=== PATIENT | male | born 1955 | race Caucasian/White ===

== ENCOUNTER → 2023-12-26 15:41 | Outpatient (REF) | payer MEDICARE, OTHER, SELFPAY | LOC: HWRAD 15:41 | PROVIDERS: ATTENDING PHYSICIAN Orthopaedic Surgery; FAMILY PHYSICIAN Family Medicine | DX: M25.551 Pain in right hip (principal) | CPT/HCPCS: 72192 ==

== ENCOUNTER → 2023-12-31 15:16 | Outpatient (REF) | payer MEDICARE, OTHER, SELFPAY | LOC: RAD 15:16 | PROVIDERS: ATTENDING PHYSICIAN Surgery Vascular Surgery; FAMILY PHYSICIAN Family Medicine | DX: I73.9 Peripheral vascular disease, unspecified (principal) | CPT/HCPCS: 93990 ==

== ENCOUNTER → 2024-01-02 14:44 | Outpatient (REF) | payer MEDICARE, OTHER, SELFPAY | LOC: HWRAD 14:44 | PROVIDERS: ATTENDING PHYSICIAN Surgery Vascular Surgery; FAMILY PHYSICIAN Family Medicine | DX: I73.9 Peripheral vascular disease, unspecified (principal) | CPT/HCPCS: 75635; Q9967 ==

== ENCOUNTER → 2024-02-18 08:45 | Outpatient (REF) | payer MEDICARE, OTHER, SELFPAY | LOC: RAD 08:45 | PROVIDERS: ATTENDING PHYSICIAN Surgery Vascular Surgery; FAMILY PHYSICIAN Family Medicine | DX: I77.0 Arteriovenous fistula, acquired (principal) | CPT/HCPCS: 93990 ==

== ENCOUNTER 2024-02-19 11:38 | Inpatient (IN) | payer MEDICARE, OTHER, SELFPAY ==
[2024-02-19] VITALS (7 sets, daily range): BP systolic 80–159; BP diastolic 44–74; BMI 29.4
[2024-02-19 09:44] LABS: Urine Albumin 2+ (Neg - Trace); Urine Bilirubin Negative (Negative); Urine Character Clear (Clear); Urine Color Yellow; Urine Glucose Negative (Negative); Urine Ketone Negative (Negative); Urine Leukocyte Negative (Negative); Urine Nitrite Negative (Negative); Urine Occult Blood Negative (Negative); Urine Urobilinogen Negative (Neg - 1+)
--- NOTE | 2024-02-19 09:52 | ED.GENMED ---
History of Present Illness
General
Chief Complaint: Abdominal Symptoms
Source: patient
Exam Limitations: none
Time Seen by Provider: 02/19/24 09:26
Nursing documentation reviewed up to this point in time: agreed with
Travel History
Have you had any contact with someone who has COVID-19?: No
Do you have any symptoms of coronavirus? Fever > 100 degrees, chills, cough, shortness of breath, sore throat, loss of taste or smell, muscle aches, or headache?: No
History of Present Illness
History of Present Illness:
Patient with history of end-stage renal disease on hemodialysis (Saturday, Saturday, Saturday), presents to ED secondary to persistent sensation of 'not feeling well', after dental procedure yesterday afternoon. Today, patient started to have multiple
vomiting episodes, without any abdominal discomfort. Upon presentation, patient is found to be febrile, which she was not aware of. Denies headache. Denies sore throat. Denies coughing. Denies diarrhea. Denies recent sick contact. Patient
reports having had similar symptoms last year, when he tested positive for influenza.
Past History
Past History
ED Past Medical History: CAD, Cancer (CML), HTN, Hypercholesterolemia, NIDDM, Renal failure (stage 3), Other (Peripheral artery disease, left femoropopliteal bypass), Other (subdural hematoma) and Other (R foot ulcer; FINESSE; obesity)
ED Past Surgical History: Cardiac and Other (L femoral endarterectomy, popliteal angioplasty)
Social History
Tobacco: Smoker
Alcohol: None
Drug: Marijuana
Personal:
Living: with family
Employment: Disabled
Family History
Family History: Diabetes and Other (reviewed and non-contributory)
Review of Systems
Review of Systems
Allergies reviewed?: Yes
All Other Systems: ROS reviewed and negative except as documented in HPI and ROS
Constitutional: Reports no symptoms
EENT: Reports no symptoms
Respiratory: Reports no symptoms; Denies cough
Cardiac: Reports no symptoms; Denies chest pain
ABD/GI: Reports nausea and vomiting; Denies abdominal pain or diarrhea
: Reports no symptoms
Musculoskeletal: Reports no symptoms
Skin: Reports no symptoms
Neurological: Reports no symptoms
Phy Exam
Physical Exam
Physical Exam:
Physical Exam
General: mild distress, not acutely ill. afebrile
Head: nc/at. eomi
Neck: supple. no meningeal signs.
Heart: s1/s2 regular rate and rhythm, no murmur. equal radial pulses.
Lungs: mild respiratory distress. rhonchi bilaterally
Abdomen: normal bowel sounds. not tender.
Neuro: alert and oriented. no focal neurological deficits
Skin: no rash
Psychiatric: well kept. interactive and cooperative
Extremities: no edema. no calf tenderness.
Course
Orders/Labs/Results
Orders:
Orders
02/19/24 09:14
Electrocardiogram (*1) Urgent
Reason for Study: Chest Pain
EKG- Treatment ONCE
02/19/24 09:26
CR Chest Portable - 1 View Urgent
Comment:
Reason For Exam: port confirmation to use
Reason Study Needs to be Portable: Unable to Transport
02/19/24 09:32
COVID-19 Antigen Urgent
Source: Nasal Swab
Influenza A+B Rapid Molecular Urgent
PETRA Source: Nasal Swab
Specimen Description:
Acetaminophen [Tylenol] 650 mg PO NOW STA
Ondansetron Injectable [Zofran] 4 mg IV NOW STA
02/19/24 09:34
Urinalysis Reflex To Culture Urgent
Date Specimen was Collected: 02/19/24
Time Specimen was Collected: 09:33
Urine Microscopic Reflex Cult Urgent
02/19/24 09:53
Complete Blood Count/With Diff Urgent
Comprehensive Metabolic Panel Urgent
Lactic Acid Q4H
Comment: ON ICE, CANCEL 2ND ORDER IF FIRST LACTIC ACID LEVEL <2
Procalcitonin Urgent
PCT Algorithmm Indication: Respiratory
Blood Culture Q30M
PETRA Source: Blood/Venous
Specimen Description:
Comment: FROM 2 SEPARATE SITES
02/19/24 09:57
Prochlorperazine [Compazine] 10 mg IV NOW STA
02/19/24 Lunch
Clear Liquid
At Your Request: Limited, Director Pharmacy Services Required
Fluid Restriction: 1800 mL/day (60 oz)
02/19/24 10:35
Add On- LAB Urgent
Tests Added?: procalcitonin
02/19/24 11:00
Flush (0.9% Sodium Chloride) [Flush (Nss)] See Dose Instructions IV PER PROTOCOL
02/19/24 11:16
Admit/Transfer Patient As Directed
Co-Sign Provider:
Level of Care: Inpatient admission
Assign to:: Telemetry
Physician / Group: munoz/hospitalist
Diagnosis: SIRS/HyperK/confusion
Reason for Telemetry: Chest Pain syndromes
Date to Stop Telemetry: 02/21/24
Time to Stop Telemetry: 11:00
Reason for Hospitalization: SIRS/HyperK/confusion
Expected length of stay greater than two midnights?: Yes
ELOS- Estimated Length of Stay in days: 3
I certify the patient meets the requirements for IP care: Yes
Blood Culture Q30M
PETRA Source: Blood/Venous
Specimen Description:
Comment: FROM 2 SEPARATE SITES
02/19/24 11:18
Code Status As Directed
Resuscitation Status: Full Code
02/19/24 11:19
INFECTIOUS DISEASE CONSULT Routine
Consulting Provider: Mickie Heath
Was physician already notified: Yes
NEPHROLOGY CONSULT Routine
Consulting Provider: Fabián Anderson V.
Was physician already notified: Yes
Reason for consult: TT BY ER
Famotidine [Pepcid] 20 mg IV NOW STA
02/19/24 11:23
0.9% Sodium Chloride [Nss (Preservative Free)] 8 ml IV NOW STA
02/19/24 12:04
Acetaminophen [Tylenol] 650 mg PO Q4HPRN PRN
Ondansetron Injectable [Zofran] 4 mg IV Q6HPRN PRN
02/19/24 12:04
Activity As Directed
Activity Level: Out of Bed-Early Mobility
Vital Signs As Directed
Frequency: Per unit guidelines
DX Deep Vein Thrombosis Video Routine
02/19/24 12:30
Calcium Acetate [Phoslo] 667 mg PO AC
02/19/24 13:00
Renal Cap [Nephrocap] 1 capsule PO MoWeFr@0800
02/19/24 20:00
Carvedilol [Coreg] 25 mg PO BID
Heparin 5,000 units SC Q12
02/19/24 22:00
Atorvastatin [Lipitor] 80 mg PO HS
Melatonin 5 mg PO HS
02/20/24 06:00
Basic Metabolic Panel IN AM
Complete Blood Count/With Diff IN AM
02/20/24 08:00
Aspirin Low Dose EC [Aspir Low (Enteric Coated)] 81 mg PO DAILY
Cetirizine HCl [Zyrtec] 5 mg PO TuThSa
Clopidogrel Bisulfate [Plavix] 75 mg PO DAILY
Ezetimibe [Zetia] 10 mg PO DAILY
Methylphenidate HCl [Ritalin] 30 mg PO DAILY
Sertraline HCl [Zoloft] 200 mg PO DAILY
coQ10 (ubiquinol) 200 mg PO DAILY
02/21/24 11:00
DC Protocol for Telemetry ONCE
Abnormal Lab Results
02/19/24 02/19/24
09:34 09:53
WBC 14.4 H 10^3/uL
(4.8-10.8)
RBC 2.99 L 10^6/uL
(4.70-6.10)
Hgb 10.3 L g/dL
(13.0-18.0)
Hct 30.1 L %
(39.0-52.0)
MCV 100.7 H fL
(80.0-94.0)
MCH 34.4 H pg
(27.0-31.0)
RDW 15.5 H %
(11.5-14.5)
MPV 10.5 H fL
(7.4-10.4)
Abs Immat Gran (auto) 0.1 H 10^3/uL
(0-0.05)
Absolute Neuts (auto) 12.7 H 10^3/uL
(1.4-6.5)
Absolute Lymphs (auto) 0.7 L 10^3/uL
(1.2-3.4)
Absolute Monos (auto) 1.0 H 10^3/uL
(0.1-0.6)
Neutrophils % 87.8 H %
(42.2-75.2)
Lymphocytes % 4.5 L %
(20.5-51.1)
Sodium 132 L mmol/L
(135-145)
Potassium 6.4 H* mmol/L
(3.5-5.1)
Chloride 96 L mmol/L
(98-107)
BUN 76 H mg/dl
(9-20)
Creatinine 8.0 H* mg/dL
(0.7-1.3)
Glucose 124 H mg/dl
(70-99)
Procalcitonin 0.86 H ng/ml
(0.0-0.25)
Urine Bacteria (Reflex) Few A
(Negative)
Urine Albumin (Reflex) 2+ A
(Neg - Trace)
02/19/24 09:53
02/19/24 09:53
Vital Signs
Initial and Last Documented VS:
Initial Vital Signs
Pulse Resp Pulse Ox
63 20 94
02/19/24 09:10 02/19/24 09:10 02/19/24 09:10
Last Documented Vital Signs
Temp Pulse Resp BP Pulse Ox
98.2 F 57 16 111/54 99
02/19/24 17:02 02/19/24 15:05 02/19/24 15:05 02/19/24 15:05 02/19/24 15:05
MDM/Problems Addressed
MDM/Problems Addressed:
Patient presents with febrile illness with ongoing productive cough. Despite chest x-ray without any acute findings, clinical concern for potential pneumonia with patient who is immunocompromised. As such, blood culture ordered and procalcitonin
ordered. Will withhold antibiotics at this time.
COVID and influenza negative.
Potassium 6.4, without any acute EKG changes noted. Spoke with nephrology, Dr. Anderson. Does not recommend acute treatment for potassium, but will make an arrangement for urgent dialysis as inpatient.
Patient otherwise remains hemodynamically stable and nontoxic-appearing.
*Critical Care Note
Total Time (30-74mins, 75-104mins- exclusive of procedures): Not Applicable
ED Attending Note
-
Portions of this chart may have been created with voice recognition software.� Occasional wrong word or��sound alike� substitutions may have occurred due to the inherent limitations of voice recognition software.
Discharge Plan
Departure
Patient Disposition: Admit
Date of Disposition: 02/19/24
Time of Disposition: 10:41
Admit to: Telemetry
Presentation/result/management discussed w/ accepting MD/DO: Hospitalist
Discharge Problem:
Fever, Hyperkalemia, Vomiting
Interventions
Interventions:
*Risk Screen - Suicide Last Done: 02/19/24 09:10
*General Assessment Last Done: 02/19/24 09:10
*Neglect/Abuse Screening Last Done: 02/19/24 09:10
*ED COVID-19 Vaccine History Last Done: 02/19/24 11:00
*Nursing Disposition Last Done: 02/19/24 12:05
HI-Wegbsb-Wnysxzlqzm Assessment Last Done: 02/19/24 11:00
ED- Neurological Assessment Last Done: 02/19/24 11:00
ED Swallowing Screen Last Done: 02/19/24 10:30
Discharge Date and Time
Discharge Date/Time: 02/19/24 12:14
[2024-02-19 09:57] LABS: COVID-19 Antigen Negative (Negative)
[2024-02-19] MEDS: ZOFRAN 4 MG IV (09:57)
[2024-02-19 10:04] LABS: % Basophils 0.4 % (0-2); % Eosinophils 0.1 % (0-6); % Immature Granulocytes 0.3 % (0-0.5); % Lymphocytes 4.5 % (20.5-51.1); % Monocytes 6.9 % (1.7-9.3); % Neutrophils 87.8 % (42.2-75.2); Absolute Basophils 0.1 10^3/uL (0-0.2); Absolute Immature Granulocytes 0.1 10^3/uL (0-0.05); Absolute Lymphocytes 0.7 10^3/uL (1.2-3.4); Absolute Neutrophils 12.7 10^3/uL (1.4-6.5); Hematocrit 30.1 % (39.0-52.0); Hemoglobin 10.3 g/dL (13.0-18.0); Mean Corp Hgb Conc. 34.2 g/dL (33.0-37.0); Mean Corpuscular Hgb 34.4 pg (27.0-31.0); Mean Corpuscular Volume 100.7 fL (80.0-94.0); Mean Platelet Volume 10.5 fL (7.4-10.4); Nucleated Red Blood Cells % 0 % (-); Platelet Count 311 10^3/uL (130-400); Red Blood Cell Count 2.99 10^6/uL (4.70-6.10); Red Cell Dist. Width 15.5 % (11.5-14.5); White Blood Cell Count 14.4 10^3/uL (4.8-10.8)
[2024-02-19 10:08] LABS: Urine Urothelial Cell 0-2 /LPF (FEW)
[2024-02-19 10:09] LABS: Urine Bacteria Few (Negative); Urine Red Blood Cell 0-2 /HPF (0-2); Urine White Cell 0-2 /HPF (0-5)
[2024-02-19 10:15] LABS: Lactic Acid 1.7 mmol/L (0.7-2.0)
[2024-02-19 10:22] LABS: ALT (SGPT) 21 U/L (0-50); AST (SGOT) 28 U/L (17-59); Alkaline Phosphatase 83 U/L (38-126); Blood Urea Nitrogen 76 mg/dl (9-20); Calcium 10.1 mg/dl (8.4-10.2); Carbon Dioxide 23 mmol/L (22-30); Chloride 96 mmol/L (98-107); Estimated Creatinine Clearance 8 ml/min; Glucose 124 mg/dl (70-99); Potassium 6.4 mmol/L (3.5-5.1); Sodium 132 mmol/L (135-145); Total Bilirubin 0.7 mg/dl (0.2-1.3); Total Protein 8.2 g/dl (6.3-8.2)
[2024-02-19] MEDS: TYLENOL 650 MG PO ×3 (10:26→20:48)
[2024-02-19 11:08] LABS: Procalcitonin 0.86 ng/ml (0.0-0.25)
--- NOTE | 2024-02-19 11:24 | HPS.HSE ---
Family Physician
-
Family Physician: Placido Lora Jr.
Chief Complaint
-
nausea/vomiting
History of Present Illness
68 male with extensive past medical complex history is presenting from home with nausea vomiting and generalized discomfort feeling. States of 3-4 episodes of vomiting and multiple episodes this morning. Stated bile colored vomitus. States did
not eat much last 24 hours. States a mild discomfort left lower quadrant. Denies any sick contact. Denies any change in appetite. Was supposed to undergo outpatient hemodialysis but came into the hospital. Denies any shortness of breath or PND.
States of chest discomfort after vomiting. States of epigastric burning sensation. States had a bowel movement yesterday. Denies any loose stools. States of urinary urgency but does not make urine. Denies any back pain. Denies any productive
cough. Patient states he is confused about some timeline for the last 24 hours. Does states of recent dental procedure of crown. Patient was found to be febrile in ER and cultures were obtained.
Medical History
Past Medical History
Past Medical History: Reports Other
Additional Past Medical History:
CAD s/p CABG s/p stent
ESRD on HD
Anxiety/Depression/ADHD
PAD s/p Left fem-pop bypass
Primary HTN
HLD
DM2
Anemia of chronic disease
BPH
RBBB
hX OF tia
Chronic HFpEF
Paroxysmal atrial tachycardia
Past Surgical History: Reports Other
Additional Past Surgical History:
CABG
Hip replacement
PAD s/p Left fem-pop bypass and RLE stent
lumbar laminectomy/fusion
Multiple foot surgeries
Social History
Tobacco: Former Smoker (1-1.5ppd for 30+ years. )
Alcohol: None
Personal:
Living: With Family
Family History
Family History: Not pertinent
Allergies / Home Medications
Allergies reflects when Allergies were last updated in [employer].
Home Medications with original date entered in [employer]
Allergy/Medication List:
Allergies
Allergy/AdvReac Type Severity Reaction Status Date / Time
latex Allergy Itching- Verified 02/19/24 09:09
pt
declines
having
this
allergy
morphine Allergy Itching- Verified 02/19/24 09:09
pt
declines
having
this
allergy
Home Medications
melatonin 5 mg tablet 5 mg PO HS sleep 04/06/19
carvedilol 25 mg tablet (Coreg) 25 mg PO BID Heart disease/condition 05/18/20
atorvastatin 80 mg tablet 80 mg PO HS High cholesterol 01/25/21
aspirin 81 mg tablet,delayed release 81 mg PO DAILY Blood clot prevention/tx ##0 02/09/21
lorazepam 1 mg tablet 1 mg PO TIDPRN PRN ANXIETY 09/11/22
lidocaine-prilocaine 2.5 %-2.5 % topical cream 1 applic topical DAILYPRN PRN PORT 10/28/23
methylphenidate HCl 10 mg tablet 30 mg PO DAILY Neurological Condition 10/28/23
ezetimibe 10 mg tablet (Zetia) 10 mg PO DAILY High Cholesterol 11/14/23
calcium acetate 667 mg tablet 667 mg PO AC Kidney Disease 02/19/24
cetirizine 10 mg tablet (Zyrtec) 10 mg PO DAILY Allergies 02/19/24
clopidogrel 75 mg tablet (Plavix) 75 mg PO DAILY Blood Clot Prevention/Tx 02/19/24
coQ10 (ubiquinol) 200 mg capsule 200 mg PO DAILY Supplement 02/19/24
fexofenadine 180 mg tablet 180 mg PO DAILY Allergies 02/19/24
hydrocodone 5 mg-acetaminophen 325 mg tablet 1 tab PO BIDPRN PRN SEVERE PAINS 02/19/24
semaglutide 0.25 mg or 0.5 mg (2 mg/3 mL) subcutaneous pen injector (Ozempic) 0.25 mg SC GRIMM Diabetes 02/19/24
sertraline 100 mg tablet 200 mg PO DAILY Mental Health 02/19/24
vitamin B complex-vitamin C-folic acid 0.8 mg tablet (Nephro-Michelle) 1 tab PO MOWEFR Supplement 02/19/24
Review of Systems
-
A 12 point ROS was completed and negative except as noted: Yes
Physical Exam
Vital Signs
Vital Signs
Temp Pulse Resp BP Pulse Ox
103.0 F H 63 20 159/49 94
02/19/24 09:15 02/19/24 09:10 02/19/24 09:10 02/19/24 09:15 02/19/24 09:10
Physical Exam
General: Well Developed, Well Nourished and No Apparent Distress
HEENT: NormoCephalic, Moist mucous membranes and Atraumatic
Respiratory: Clear
Cardiac: S1/S2 and Regular Rhythm; No Murmur or Rub
GI: Soft, Non Tender, Non Distended and Normal Bowel Sounds; No Organomegaly
Rectal: Deferred by Provider
Genito-urinary: Deferred by me
Musculoskeletal: No Clubbing, No Cyanosis and No Edema
Skin: No Rash
Neuro: Awake, Alert, Oriented and Nonfocal/grossly intact
Laboratory Results
-
02/19/24 09:53
02/19/24 09:53
Laboratory Results
Lactic Acid 1.7 mmol/L (0.7-2.0) 02/19/24 09:53
Total Bilirubin 0.7 mg/dl (0.2-1.3) 02/19/24 09:53
AST 28 U/L (17-59) 02/19/24 09:53
ALT 21 U/L (0-50) 02/19/24 09:53
Alkaline Phosphatase 83 U/L (38-126) 02/19/24 09:53
Impression/Plan
-
#Hyperkalemia
#ESRD on hemodialysis Saturday
Discussed with nephrology plan for emergent hemodialysis today
#SIRS
#Fever likely secondary to gastroenteritis viral versus concern for bacteremia with recent dental procedure and catheter
Hemodynamically stable
Blood cultures in the lab
Pro-Manjit elevated however not accurate in the setting of renal failure
We will ask ID for input
#Nausea and vomiting
Patient needs emergent hemodialysis and thus will check abdominal x-ray
If no improvement check CAT scan
Clear liquid diet for now
Lactic acid normal and BP stable.
#Mild metabolic encephalopathy
Hold pain meds and Ativan for now
Hold Adderall for today
Monitor mentation closely with dialysis
If persistent with confusion check CT head postdialysis
#Chest discomfort likely secondary to musculoskeletal versus topical status post vomiting rule out ACS
#CAD status post CABG status post stents
#Hx of RBBB
Continue with aspirin, Plavix, statin and beta-keny
Will trend troponin
#Paroxysmal atrial tachycardia
EKG being read by machine as afib but doubt it. PVCs? Will await final/official read.
#PAD status post stent and bypass
Continue aspirin and Plavix and statin
#Diabetes mellitus type 2
Hold p.o. meds
Sliding-scale Accu-Cheks
Update A1c
#Primary hypertension
Continue carvedilol
Volume overload with dialysis should help
#Chronic HFpEF
Volume removal via HD
Secondary/tertiary hyperparathyroidism
Continue with Phos binders
Anxiety/depression
Continue sertraline high-dose
ADD
Hold methylphenidate for now
DVT prophylaxis with heparin sc
d/w with nephro and ER attending
I spent a total of 82 minutes with the patient or on the floor. More than 50% of this time involved counseling and coordination of care.
[2024-02-19 12:37] LABS: Glucose - Point of Care 127 mg/dl (70-99)
--- NOTE | 2024-02-19 12:56 | W.CON.NEPH ---
Consultation
-
Date/Time Consultation Requested: February 19, 2024 10:00 AM
Date/Time Consultation Performed: February 19, 2024 1:00 PM
Requesting Provider: ginny
Performing Provider: Justin
Reason for Consultation: ESRD
Medical History
-
Chief Complaint: End-stage renal disease
History of Present Illness:
Patient is a 68-year-old male with a past medical history of end-stage renal disease who is dialyzed Wednesdays and Saturday at [place] [facility] [place]. He has a longstanding history of diabetes with multiple microvascular
complications including diabetic nephropathy. He is maintained on aspirin statin and Plavix in the setting of his severe peripheral vascular disease. He has had previous left femoral above-knee popliteal bypass in 2018 as well as previous right
SFA and popliteal angioplasty and stenting in 2015. He has had multiple attempts that fistula and graft placements which have failed. He presented to the emergency room this morning with nausea vomiting and malaise. He was noted to have fevers.
The patient had recently undergone dental procedure for a crown placement. We were consulted in regards to his end-stage renal disease.
Past Medical History
Stenting of vein graft to obtuse marginal October 24, 2023
Recent acute diastolic CHF
ESRD MWF ([facility])
Metabolic acidosis
Hyperkalemia
Anemia, CKD +/- functional iron deficiency
Secondary hyperparathyroidism with hyperphosphatemia
Diabetes mellitus with multiple microvascular complications including profound nephrotic proteinuria
COPD
Obstructive sleep apnea/CPAP
Diabetic polyneuropathy
CAD with CABG �2009
LAD stent 2015
Left SFA and popliteal angioplasty 2017
Left femoral to [id number] popliteal bypass 2018
Right SFA and popliteal angioplasty/stenting 2015
Hypertension
Right bundle branch block
CML
Hyperlipidemia
TIA 2016
Frontal subdural hematoma 2019 (traumatic fall)
Long-standing smoker
Multiple laminectomy
Right total knee replacement
Left total knee replacement
Left upper arm AV graft September 13, 2023 (Dr. Luther)
NSTEMI August 2023 (troponin 0.51)
Hyperphosphatemia
Social History
Tobacco: Former Smoker
Alcohol: None
Drug: None
Family History
No family history of chronic kidney disease
Allergies / Home Medications
Allergy/AdvReac Type Severity Reaction Status Date / Time
latex Allergy Itching- Verified 02/19/24 09:09
pt
declines
having
this
allergy
morphine Allergy Itching- Verified 02/19/24 09:09
pt
declines
having
this
allergy
�Medication �Instructions �Recorded �Confirmed �Type
melatonin 5 mg tablet 5 mg PO HS sleep 04/06/19 02/19/24 History
carvedilol 25 mg tablet (Coreg) 25 mg PO BID Heart 05/18/20 02/19/24 History
disease/condition
atorvastatin 80 mg tablet 80 mg PO HS High cholesterol 01/25/21 02/19/24 History
aspirin 81 mg tablet,delayed 81 mg PO DAILY Blood clot 02/09/21 02/19/24 Rx
release prevention/tx ##0
lorazepam 1 mg tablet 1 mg PO TIDPRN PRN ANXIETY 09/11/22 02/19/24 History
lidocaine-prilocaine 2.5 %-2.5 % 1 applic topical DAILYPRN PRN PORT 10/28/23 02/19/24 History
topical cream
methylphenidate HCl 10 mg tablet 30 mg PO DAILY Neurological 10/28/23 02/19/24 History
Condition
ezetimibe 10 mg tablet (Zetia) 10 mg PO DAILY High Cholesterol 11/14/23 02/19/24 History
calcium acetate 667 mg tablet 667 mg PO AC Kidney Disease 02/19/24 02/19/24 History
cetirizine 10 mg tablet (Zyrtec) 10 mg PO DAILY Allergies 02/19/24 02/19/24 History
clopidogrel 75 mg tablet (Plavix) 75 mg PO DAILY Blood Clot 02/19/24 02/19/24 History
Prevention/Tx
coQ10 (ubiquinol) 200 mg capsule 200 mg PO DAILY Supplement 02/19/24 02/19/24 History
fexofenadine 180 mg tablet 180 mg PO DAILY Allergies 02/19/24 02/19/24 History
hydrocodone 5 mg-acetaminophen 325 1 tab PO BIDPRN PRN SEVERE PAINS 02/19/24 02/19/24 History
mg tablet
semaglutide 0.25 mg or 0.5 mg (2 0.25 mg SC GRIMM Diabetes 02/19/24 02/19/24 History
mg/3 mL) subcutaneous pen injector
(Ozempic)
sertraline 100 mg tablet 200 mg PO DAILY Mental Health 02/19/24 02/19/24 History
vitamin B complex-vitamin C-folic 1 tab PO MOWEFR Supplement 02/19/24 02/19/24 History
acid 0.8 mg tablet (Nephro-Michelle)
Review of Systems
-
History Source: Patient
All other systems: Negative unless noted
Constitutional: Fever and Fatigue
EENT: Other (Headache)
Respiratory: No Symptoms
Cardiac: No Symptoms
Abdomen/GI: Nausea and Vomiting
: Other (Decreased urine output, postvoid 0 cc)
Skin: Other (Ecchymosis at left upper extremity AV graft site)
Neurological: No Symptoms
Endocrine: No Symptoms
Hematologic/Lymphatic: Other (Dialysis catheter, left upper extremity AV graft)
Physical Exam
Vital Signs
Vital Signs
Temp Pulse Resp BP Pulse Ox
100.9 F H 72 18 134/56 96
02/19/24 12:10 02/19/24 12:10 02/19/24 12:10 02/19/24 12:10 02/19/24 12:32
Lab Results
02/19/24 09:53
02/19/24 09:53
WBC 14.4 10^3/uL (4.8-10.8) H 02/19/24 09:53
RBC 2.99 10^6/uL (4.70-6.10) L 02/19/24 09:53
Hgb 10.3 g/dL (13.0-18.0) L 02/19/24 09:53
Hct 30.1 % (39.0-52.0) L 02/19/24 09:53
Plt Count 311 10^3/uL (130-400) 02/19/24 09:53
Sodium 132 mmol/L (135-145) L 02/19/24 09:53
Potassium 6.4 mmol/L (3.5-5.1) H* 02/19/24 09:53
Chloride 96 mmol/L (98-107) L 02/19/24 09:53
Carbon Dioxide 23 mmol/L (22-30) 02/19/24 09:53
BUN 76 mg/dl (9-20) H 02/19/24 09:53
Creatinine 8.0 mg/dL (0.7-1.3) H* 02/19/24 09:53
eGFR 6.80 02/19/24 09:53
Glucose 124 mg/dl (70-99) H 02/19/24 09:53
Calcium 10.1 mg/dl (8.4-10.2) 02/19/24 09:53
Albumin 5.0 g/dl (3.5-5.0) 02/19/24 09:53
Physical Exam
General: AOx3
HEENT: PERRL, EOMI, Anicteric, Conjunctivae Clear, Ear/Nose Intact, Hearing Normal, Oropharynx Clear/Moist, Neck Supple, Trachea Midline, No JVD and No Thyromegaly
Respiratory: Normal Excursion and Other (coarse)
Cardiac: S1/S2, Regular Rate/Rhythm and Other (Right tunneled IJ catheter/left upper extremity AV graft with thrill and bruit, noted ecchymosis)
Breast: Deferred by me
Abdomen: Soft, Nontender, Nondistended, Normal Bowel Sounds and No Hepatosplenomegaly
Rectal: Deferred by Provider
Musculoskeletal: No Clubbing, No Cyanosis, No Edema and Other (right foot callus at head of metarsal)
Skin: No Rash, Warm, Dry, No Clubbing, No Cyanosis and Normal Turgor
Neuro: Nonfocal/Grossly Intact and CN II-XII
Hematologic/Lymphatic: No Cervical Lymphadenopathy, No Submandibular Lymphadenopathy and No Supraclavicular Lymphadenopathy
Psych: Mood/afflect pleasant, Insight/judgement good and Appropriate
Assessment/Plan
-
Impression:
Fevers/nausea /vomiting/Leukocytosis
End-stage renal disease Saturday
Hyperkalemia
Profound peripheral vascular disease
Anemia of chronic kidney disease
Coronary artery disease with prior history of CABG
History of CML
Hyperphosphatemia
Plan:
HD today, orders provided
GITA for anemia
Appropriate fluid restrictions and dietary modification
Maintain calcium acetate with meals re: hyperphosphatemia
Will provide dialysis on low K bath for hyperkalemia
Blood cultures obtained given fevers
Strong concern for line sepsis given presence of right IJ hemodialysis catheter (fever, leukocytosis, malaise)
Low threshold for antibiotic therapy, i.e. vancomycin to cover for possible dialysis line infection
Data Reviewed
-
Radiology: Image Personally Visualized and interpreted (Chest x-ray personally reviewed notes right-sided IJ catheter no evidence of congestive heart failure or pneumonia)
Labs: Labs Reviewed by me (BMP CBC personally reviewed)
Old Records: Reviewed (Reviewed last admission with end-stage renal disease and acute hypoxic respiratory failure with COVID from date 10/28/23)
[2024-02-19 13:41] LABS: Troponin I 0.127 ng/ml
[2024-02-19] MEDS: NEPHROCAP PO (13:51)
[2024-02-19] MEDS: PHOSLO PO (13:51)
[2024-02-19] MEDS: MIRALAX 17 GRAMS PO (13:51)
--- NOTE | 2024-02-19 13:52 | PHA.VAN.IN ---
Assessment
- Assessment
Renal Function: Patient has ESRD, on chronic Hemodialysis
Hemodialysis Schedule: MWF
Plan
- Plan
Initial / Loading Dose: 1000mg now PLUS 500mg at end of HD
Maintenance Regimen: dosing by level / HD
Monitoring: consider random level prior to HD Fri
Pharmacokinetics Vancomycin I
- -
Patient Age: 68
Patient Sex: Male
Vancomycin Day #: 1
Indication: Other
Requesting Provider: Dr. Guevara
Pertinent Antimicrobial Allergies:
no pertinent antibiotic allergies
Height / Weight:
Height 5 ft 7 in
Actual Weight 85.094 kg
Pertinent Past Medical History: ESRD on HD MWF, DM
- Vital Signs / Lab Results
Temp Pulse Resp BP Pulse Ox
100.9 F H 72 18 134/56 96
02/19/24 12:10 02/19/24 12:10 02/19/24 12:10 02/19/24 12:10 02/19/24 12:48
Lab Results - Hematology
02/19/24
09:53
WBC 14.4 H
Lab Results - Chemistry
02/19/24
09:53
BUN 76 H
Creatinine 8.0 H*
Estimated Creat Clear 8
Albumin 5.0
02/19/24 02/19/24
09:53 13:30
Lactic Acid 1.7 Cancelled
Lab Results - Urine
02/19/24
09:34
Urine Nitrite (Reflex) Negative
Leukocyte Esterase Rfl Negative
Urine WBC (Reflex) 0-2
Ur Squamous Epith Cells 3-5
Urine Bacteria (Reflex) Few A
Microbiology Results
02/19/24 09:32 Influenza Types A & B (JAZZMINE) - Final
Nasal Swab Negative for Influenza A & B, NAAT
Negative results must be combined with clinical observations
and patient history.
Nucleic Acid Amplification test (NAAT)performed on the
[employer] NOW platform.
--- NOTE | 2024-02-19 14:01 | W.PN.NEPH.HD ---
Assessment
-
Patient seen on HD
sbp 111, will attempt 2kg u/f
Progress Note - Hemodialysis
-
Date of Service: February 19, 2024
Duration: 30 minutes and 3 hours
Potassium Bath: 2
Calcium Bath: 2.5
Opti-Dialyzer: 160
Ultrafiltration: Other (2kg)
Blood Flow: 400
Dialysate Flow: 600
Heparin: none
EPO: 8K
[2024-02-19] MEDS: VANCOCIN 200 IV (16:29)
[2024-02-19 16:45] LABS: Glucose - Point of Care 106 mg/dl (70-99)
[2024-02-19] MEDS: NOVOLOG FLEXPEN-LOW RESISTANCE SC (16:55)
[2024-02-19] MEDS: HEPARIN 4300 UNITS INTRACATH (17:04)
[2024-02-19] MEDS: VANCOCIN HCL 500 MG 100 IV (17:52)
[2024-02-19] MEDS: PHOSLO 667 MG PO (17:52)
[2024-02-19 19:07] LABS: Troponin I 0.204 ng/ml
[2024-02-19] MEDS: SENOKOT-S 1 TABLET PO (20:49)
[2024-02-19] MEDS: COREG 25 MG PO (20:50)
[2024-02-19] MEDS: HEPARIN 5000 UNITS SC (20:50)
[2024-02-19 21:41] LABS: Glucose - Point of Care 145 mg/dl (70-99)
[2024-02-19] MEDS: DULCOLAX 10 MG PO (21:51)
[2024-02-19] MEDS: MELATONIN 5 MG PO (21:51)
[2024-02-19] MEDS: LIPITOR 80 MG PO (21:52)
[2024-02-19] MEDS: NORCO 5/325 1 TABLET PO (21:52)
[2024-02-19] MEDS: MYLICON 80 MG PO (21:54)
[2024-02-19] MEDS: ATIVAN 1 MG PO (23:24)
[2024-02-20] VITALS (28 sets, daily range): BP systolic 62–122; BP diastolic 43–76; BMI 28.7
--- NOTE | 2024-02-20 | PTCARENOTE ---
Addendum entered by Sara Matias RN 02/20/24 02:25:
4000unit Heparin bolus administered as ordered, see JAN. PTT resulted 40.9, Heparin gtt initiated at a rate of 10mL/hr per order, see JAN. Next PTT to be drawn 0745, order placed.
Original Note:
Pt with intermittent CP to the center of the chest, rated 5/10 pain and described as a 'soreness'. HR ranging 110-120's on telemetry. LINE MAINTAINER SECTION notified and EKG obtained, LINE MAINTAINER SECTION responded bedside. EKG shows atrial tachycardia; 5mg IV Lopressor ordered, see
MAR. Due to most recent troponin elevated at 0.204, pt with recent cardiac stents 10/2023, and active CP, Heparin gtt to be initiated. Urgent PTT ordered to be drawn with final troponin.
[2024-02-20] MEDS: LOPRESSOR 5 MG IV (00:27)
--- NOTE | 2024-02-20 00:48 | W.PN.UPDATE ---
Update Note
Progress Note Update
Pt admitted earlier today for fever, weakness, n/v. Had complaints of epigastric pain and troponin were drawn.
#1 0.127
#2 0.204
Pt does have hx of extensive cardiac disease with recent stent in oct 2023.
Around 2300 RN reports HR elevated to 120s. EKG read as afib. Reviewing with licensed clinical social worker, Appears more Atach which pt does have hx of in previous admits. Pt does state he has chest burning/pain. Not sure is GI related given n/v or cardiac. But with
elevated trop and CP and extensive cardiac disease will initiate heparin gtt, trend trops and consult cardiology for am. For elevated Hr will try lopressor iv x1
[2024-02-20 00:56] LABS: Hematocrit 24.5 % (39.0-52.0); Hemoglobin 8.6 g/dL (13.0-18.0); Mean Corp Hgb Conc. 35.1 g/dL (33.0-37.0); Mean Corpuscular Hgb 34.1 pg (27.0-31.0); Mean Corpuscular Volume 97.2 fL (80.0-94.0); Mean Platelet Volume 10.4 fL (7.4-10.4); Platelet Count 239 10^3/uL (130-400); Red Blood Cell Count 2.52 10^6/uL (4.70-6.10); Red Cell Dist. Width 15.4 % (11.5-14.5); White Blood Cell Count 9.5 10^3/uL (4.8-10.8)
[2024-02-20] MEDS: HEPARIN 4000 UNITS IV (01:00)
[2024-02-20] MEDS: TYLENOL 650 MG PO ×2 (01:02→11:59)
[2024-02-20 01:11] LABS: APTT 40.9 Sec (23.4-35.0)
[2024-02-20 01:23] LABS: Troponin I 0.142 ng/ml
[2024-02-20] MEDS: HEPARIN 25000 UNITS/250 ML IV (01:39)
[2024-02-20 07:05] LABS: Glucose - Point of Care 132 mg/dl (70-99)
[2024-02-20] MEDS: NOVOLOG FLEXPEN-LOW RESISTANCE SC (07:06)
[2024-02-20] MEDS: MIRALAX 17 GRAMS PO (07:57)
[2024-02-20] MEDS: ASPIR LOW (ENTERIC COATED) 81 MG PO (07:57)
[2024-02-20] MEDS: PHOSLO 667 MG PO ×3 (07:57→16:26)
[2024-02-20] MEDS: RITALIN 30 MG PO (07:58)
[2024-02-20] MEDS: COREG 25 MG PO (07:58)
[2024-02-20] MEDS: PLAVIX 75 MG PO (07:58)
[2024-02-20] MEDS: ZETIA 10 MG PO (07:58)
[2024-02-20] MEDS: SENOKOT-S 1 TABLET PO ×2 (07:58→20:49)
[2024-02-20] MEDS: ZOLOFT 200 MG PO (07:58)
[2024-02-20 08:02] LABS: % Basophils 0.2 % (0-2); % Eosinophils 0.2 % (0-6); % Immature Granulocytes 0.4 % (0-0.5); % Lymphocytes 7.9 % (20.5-51.1); % Monocytes 10.1 % (1.7-9.3); % Neutrophils 81.2 % (42.2-75.2); Absolute Immature Granulocytes 0.1 10^3/uL (0-0.05); Absolute Monocytes 1.3 10^3/uL (0.1-0.6); Absolute Neutrophils 10.2 10^3/uL (1.4-6.5); Hematocrit 28.1 % (39.0-52.0); Hemoglobin 9.5 g/dL (13.0-18.0); Mean Corp Hgb Conc. 33.8 g/dL (33.0-37.0); Mean Corpuscular Hgb 33.9 pg (27.0-31.0); Mean Corpuscular Volume 100.4 fL (80.0-94.0); Mean Platelet Volume 10.6 fL (7.4-10.4); Nucleated Red Blood Cells % 0 % (-); Platelet Count 240 10^3/uL (130-400); Red Cell Dist. Width 15.5 % (11.5-14.5); White Blood Cell Count 12.6 10^3/uL (4.8-10.8)
[2024-02-20] MEDS: ZYRTEC 5 MG PO (08:04)
--- NOTE | 2024-02-20 08:48 | PHA.VAN.FU ---
Vancomycin Assessment / Plan
- Assessment
Hemodialysis Schedule: MWF
WBC's are: Trending Up
In the past 24 hrs, patient has been: Febrile
- Dosing Plan
Dosing by Level: Hold off on dosing today
- Monitoring Plan
Random Level: pre-HD 02/20
- Follow Up
Pharmacy will continue to follow.
Vancomycin Follow UP
- -
Patient Age: 68
Patient Sex: Male
Vancomycin Day #: 2
Indication: Other
Requesting Provider: Dr. Guevara
Pertinent Antimicrobial Allergies:
no pertinent antibiotic allergies
Height / Weight:
Height 5 ft 7 in
Actual Weight 82.962 kg
Pertinent Past Medical History: ESRD on HD MWF, DM
- Vital Signs / Lab Results
Temp Pulse Resp BP Pulse Ox
98.1 F 133 16 118/70 97
02/20/24 07:15 02/20/24 07:58 02/20/24 07:15 02/20/24 07:58 02/20/24 07:15
Lab Results - Hematology
02/19/24 02/20/24 02/20/24
09:53 00:47 07:42
WBC 14.4 H 9.5 12.6 H
Lab Results - Chemistry
02/19/24
09:53
BUN 76 H
Creatinine 8.0 H*
Estimated Creat Clear 8
Albumin 5.0
02/19/24 02/19/24
09:53 13:30
Lactic Acid 1.7 Cancelled
Lab Results - Urine
02/19/24
09:34
Urine Nitrite (Reflex) Negative
Leukocyte Esterase Rfl Negative
Ur Squamous Epith Cells 3-5
Microbiology Results
02/19/24 09:32 Influenza Types A & B (JAZZMINE) - Final
Nasal Swab Negative for Influenza A & B, NAAT
Negative results must be combined with clinical observations
and patient history.
Nucleic Acid Amplification test (NAAT)performed on the
[employer] NOW platform.
[2024-02-20 08:50] LABS: Blood Urea Nitrogen 48 mg/dl (9-20); Calcium 9.3 mg/dl (8.4-10.2); Carbon Dioxide 27 mmol/L (22-30); Chloride 94 mmol/L (98-107); Estimated Creatinine Clearance 11 ml/min; Glucose 141 mg/dl (70-99); Potassium 4.5 mmol/L (3.5-5.1); Sodium 131 mmol/L (135-145); eGFR 9.42
[2024-02-20 09:31] LABS: APTT 144.8 Sec (23.4-35.0)
--- NOTE | 2024-02-20 10:11 | PTCARENOTE ---
heparin gtt d/c per cardiology. aware
--- NOTE | 2024-02-20 10:46 | CON.CAR ---
Addendum entered and electronically signed by Aidan Christianson MD 02/20/24 12:49:
I saw and examined the patient.
The Securities Trader's note was reviewed and I agree with the note.
Comment:
GEN: No distress, awake, Ox3
HEENT: supple, anicteric, mmm
LUNGS: scatt rhonchi
CV: irreg, S1/S2, 1/6 syst LSB, no gallop
ABD: soft, BS+, NT/ND
EXT: No edema
NEURO: Gross non-focal
SKIN: No rash
Plan:
He has an extensive past medical history including end-stage renal disease on hemodialysis, atrial tachycardia, diabetes, CML, hypertension, hyperlipidemia, and coronary artery disease with PCI of saphenous vein graft September 2023. He also has a
history of a fall and epidural bleed in 2016. He presents with palpitations, fever, and chest aches. His symptoms seemed consistent with his palpitations. He was found to be in supraventricular tachycardia likely an atypical a flutter. His
troponins are abnormal. We are asked to help manage his symptoms.
I suspect most of his symptoms are from his arrhythmia. I suspect this is a nonischemic myocardial injury.
Continue Coreg and start diltiazem 120 mg daily. With his recent PCI, I discussed his case with his primary manager medical device and interventional cardiology. We agreed with his atrial flutter and [id number] score of 5, we will trial him on Eliquis 5
mg p.o. twice daily. We will stop his aspirin and continue Plavix.
If he does not convert back into sinus rhythm I will consider a LISA cardioversion on Saturday.
Continue hemodialysis and volume removal. I suspect he is volume overloaded.
We will follow his hemoglobin on the Plavix and Eliquis.
Continue atorvastatin and Zetia.
Original Note:
Consultation
Consultation Request
Date/Time Consultation Requested: 02/20/2024
Date/Time Consultation Performed: 02/20/2024 at 0930
Requesting Provider: Dr. Guevara
Performing Provider: Dr. Christianson
Reason for Consultation: Elevated troponin, Atach
Medical History
-
History of Present Illness:
HPI: Paramjit is a 68 year old male with PMH of CAD w/ recent PCI of vein graft, PAD, ESRD on HD, atrial tachycardia, DM2, CML, HTN, HLD, anemia, and BPH who presented to [facility] for evaluation after he started with nausea, vomiting, and fever after recent
dental procedure. He had elevated temp of 103.0F on arrival with WBC of 14.4. Covid and flu testing negative. UA without evidence of UTI and chest xray without evidence of pneumonia. He was started on abx for concern of possible dialysis line
infection and reports he has had no vomiting or diarrhea overnight. He did have some chest 'flopping' and palpitations 02/18, EKG revealed atrial tachycardia with HRs up into the 130s. Troponin checked and was mildly elevated at 0.127, trending up to
0.204 and trending down thereafter. He reports ongoing flopping/fluttering sensation in his chest that is unchanged. Cardiology consulted for evaluation given atrial tachycardia with elevated HRs and elevated troponin.
PMH:
CAD
s/p LAD PCI 2005
s/p CABG with GARCIA to LAD, SVG to PDA and SVG to OM 07/05/10
NSTEMI, trop 0.51 during August 2023 admission
s/p 4.0 x 15 mm Xience stent at the ostium of the vein graft 10/24/2023
PAD
s/p left femoral endarterectomy with left femoral-above the knee SFA bypass 04/10/2019
ESRD on HD MWF
Paroxysmal atrial tachycardia
Sinus bradycardia with Mobitz 1
DM 2
CML
HTN
Hyperlipidemia
Anemia of chronic disease
BPH
Former smoker
Past Medical History
Past Medical History: Other (In HPI)
Past Surgical History: Cardiac (PCI and CABG), Orthopedic and Other (left fem-pop 2018)
Social History
Tobacco: Former Smoker (Quit 2021)
Alcohol: None
Drug: None
Personal:
Living: With Family
Family History
Family History: CAD and Diabetes
Allergies / Home Medications
Allergy/AdvReac Type Severity Reaction Status Date / Time
latex Allergy Itching- Verified 02/19/24 09:09
pt
declines
having
this
allergy
morphine Allergy Itching- Verified 02/19/24 09:09
pt
declines
having
this
allergy
�Medication �Instructions �Recorded �Confirmed �Type
melatonin 5 mg tablet 5 mg PO HS sleep 04/06/19 02/19/24 History
carvedilol 25 mg tablet (Coreg) 25 mg PO BID Heart 05/18/20 02/19/24 History
disease/condition
atorvastatin 80 mg tablet 80 mg PO HS High cholesterol 01/25/21 02/19/24 History
aspirin 81 mg tablet,delayed 81 mg PO DAILY Blood clot 02/09/21 02/19/24 Rx
release prevention/tx ##0
lorazepam 1 mg tablet 1 mg PO TIDPRN PRN ANXIETY 09/11/22 02/19/24 History
lidocaine-prilocaine 2.5 %-2.5 % 1 applic topical DAILYPRN PRN PORT 10/28/23 02/19/24 History
topical cream
methylphenidate HCl 10 mg tablet 30 mg PO DAILY Neurological 10/28/23 02/19/24 History
Condition
ezetimibe 10 mg tablet (Zetia) 10 mg PO DAILY High Cholesterol 11/14/23 02/19/24 History
calcium acetate 667 mg tablet 667 mg PO AC Kidney Disease 02/19/24 02/19/24 History
cetirizine 10 mg tablet (Zyrtec) 10 mg PO DAILY Allergies 02/19/24 02/19/24 History
clopidogrel 75 mg tablet (Plavix) 75 mg PO DAILY Blood Clot 02/19/24 02/19/24 History
Prevention/Tx
coQ10 (ubiquinol) 200 mg capsule 200 mg PO DAILY Supplement 02/19/24 02/19/24 History
fexofenadine 180 mg tablet 180 mg PO DAILY Allergies 02/19/24 02/19/24 History
hydrocodone 5 mg-acetaminophen 325 1 tab PO BIDPRN PRN SEVERE PAINS 02/19/24 02/19/24 History
mg tablet
semaglutide 0.25 mg or 0.5 mg (2 0.25 mg SC GRIMM Diabetes 02/19/24 02/19/24 History
mg/3 mL) subcutaneous pen injector
(Ozempic)
sertraline 100 mg tablet 200 mg PO DAILY Mental Health 02/19/24 02/19/24 History
tizanidine 4 mg tablet 4 mg PO QID Muscle Spasms 02/19/24 02/19/24 History
vitamin B complex-vitamin C-folic 1 tab PO MOWEFR Supplement 02/19/24 02/19/24 History
acid 0.8 mg tablet (Nephro-Michelle)
Review of Systems
-
History Source: Patient
All other systems: Negative unless noted
Physical Exam
Vital Signs
Temp Pulse Resp BP Pulse Ox
98.1 F 133 16 118/70 97
02/20/24 07:15 02/20/24 07:58 02/20/24 07:15 02/20/24 07:58 02/20/24 07:15
Lab Results
02/20/24 07:42
02/20/24 07:42
Troponin I 0.142 ng/ml H* D 02/20/24 00:47
Physical Exam
General: Well Developed, Well Nourished and No Apparent Distress
Respiratory: Clear and Non Labored Respirations
Cardiac: S1/S2 and Irregular Rhythm
Musculoskeletal: No Clubbing, No Cyanosis and No Edema
Skin: Warm and Dry
Neuro: AO x 3 and Nonfocal/Grossly Intact
Psych: Calm
Impression / Plan
-
PCP: Dr. Tabor
Cardiology: Dr. Serra
Nephrology: Dr. Anderson
Heme/Onc: Dr. Guzman
Impression:
Presented with fever, N/V
Leukocytosis
Metabolic encephalopathy
Elevated troponin, suspect nonischemic myocardial injury
Paroxysmal atrial tachycardia
Possible atypical atrial flutter
CAD
s/p LAD PCI 2005
s/p CABG with GARCIA to LAD, SVG to PDA and SVG to OM 07/05/10
NSTEMI, trop 0.51 during August 2023 admission
s/p 4.0 x 15 mm Xience stent at the ostium of the vein graft 10/24/2023
PAD
s/p left femoral endarterectomy with left femoral-above the knee SFA bypass 04/10/2019
ESRD on HD MWF
Sinus bradycardia with Mobitz 1
DM 2
CML
HTN
Hyperlipidemia
Anemia of chronic disease
BPH
Former smoker
Lexiscan nuclear stress test 04/07/19: fixed inferior, anteroseptal and apical defects, no ischemic, EF 42%
Lexiscan nuclear stress test 10/22/2023: Partially reversible inferolateral, inferior, and apical defect consistent with infarction with ischemia.� Ejection fraction 43% with global hypokinesis.
Echo 07/16/2022: EF 60-65% by Kendall's, but closer to 50% visually, mild MR, no /AI, trace TR with mod PHTN with PAP 45-50 mmHg
Echo 09/21/2023: LVEF 65 to 70% with moderate concentric LVH.� No significant valvular disease.
Plan:
-Presented with fever, nausea, and vomiting. Febrile w/ temp of 103F on arrival. Possible viral gastroenteritis, concern for possible dialysis line infection. Continue abx per primary service.
-Atrial tachycardia versus atypical atrial flutter noted on EKG. HR in 130s while at rest. Will continue carvedilol 25mg BID and will start diltiazem 120mg daily.
-Would consider LISA/CV next week if he remains in rapid arrhythmia.
-Patient has not historically been felt to be candidate for anticoagulation due to history of subdural bleed, however now w/ possible atrial flutter, would consider starting Eliquis.
-Anticoagulation complicated by recent PCI and current DAPT with aspirin and Plavix. Will discuss options/recommendations w/ interventional cardiology.
-Elevated troponin noted with peak troponin of 0.204. Suspect nonischemic myocardial injury in the setting of atrial tachycardia/flutter and SIRS.
-Patient reports improvement in his symptoms. Still with some nausea, although no vomiting. Advance diet as tolerated.
-Continue HD MWF. K improved after dialysis session 02/18.
HPI: Paramjit is a 68 year old male with PMH of CAD w/ recent PCI of vein graft, PAD, ESRD on HD, atrial tachycardia, DM2, CML, HTN, HLD, anemia, and BPH who presented to [facility] for evaluation after he started with nausea, vomiting, and fever after recent
dental procedure. He had elevated temp of 103.0F on arrival with WBC of 14.4. Covid and flu testing negative. UA without evidence of UTI and chest xray without evidence of pneumonia. He was started on abx for concern of possible dialysis line
infection and reports he has had no vomiting or diarrhea overnight. He did have some chest 'flopping' and palpitations 02/18, EKG revealed atrial tachycardia with HRs up into the 130s. Troponin checked and was mildly elevated at 0.127, trending up to
0.204 and trending down thereafter. He reports ongoing flopping/fluttering sensation in his chest that is unchanged. Cardiology consulted for evaluation given atrial tachycardia with elevated HRs and elevated troponin.
Data Reviewed
-
EKG: Tracing Personally Visualized and interpreted
Radiology: Report Reviewed by me
Labs: Labs Reviewed by me
Old Records: Reviewed
--- NOTE | 2024-02-20 10:48 | CM ---
Initial assessment completed with patient who lives with his in a 2 story home with basement. 1 step then ramp and then another step to enter the home. Patient resides on the 1st floor, B/B on 1st. 2nd floor is storage. DME is SPC and RW. No
in-home services. 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 patient is on HD with [facility] on [address] in [place]. Chair time 6:20am on . Pharmacy is [facility] on [address] [facility] in [place] and PCP is Dr. Placido Lora.
ANTICIPATE HOME WITH NO NEEDS.
--- NOTE | 2024-02-20 11:39 | W.PN.HOSP.TC ---
Addendum entered and electronically signed by Ac Guevara MD 02/20/24 14:59:
Patient blood cultures positive for GPC in chains. Continue with vancomycin. Concern for line infection. Will await ID input
Repeat cultures
Trend fever/wbc curve
Original Note:
Today's Communication/Plan
-
await ID eval
stopped hep gtt
bowel regimen
advance diet
HD per regular zackery?
OOB
Assessment / Plan
Assessment / Plan
#Hyperkalemia
#ESRD on hemodialysis Saturday
s/p emergent HD on admission
K normalized.
#SIRS
#Fever likely secondary to gastroenteritis viral versus concern for bacteremia with recent dental procedure and catheter
Hemodynamically stable
Blood cultures in the lab-prelim neg so far
Pro-Manjit elevated however not accurate in the setting of renal failure
vancomycin started for now
wbc downtrending
#Nausea and vomiting likely 2/2 severe constipation
Lactic acid normal and BP stable.
started on aggressive bowel regimen
improving
diet advanced
#Mild metabolic encephalopathy likely 2/2 uremia vs. medication (ativan/narcotics)
Monitor mentation closely with dialysis
Mentation improved and AOX3
#Chest discomfort likely secondary to musculoskeletal versus topical status post vomiting rule out ACS
#CAD status post CABG status post stents
#Hx of RBBB
#Elevted troponin likely Non Ishemic myocardial injury
Continue with aspirin, Plavix, statin and beta-keny
trop downtrended
hep gtt Dced
cards recs
#Paroxysmal atrial tachycardia vs. atypical flutter
remains tachy
started on cardizem 120mg daily
cont coreg 25mg bid
#PAD status post stent and bypass
Continue aspirin and Plavix and statin
#Diabetes mellitus type 2
Hold p.o. meds
Sliding-scale Accu-Cheks
Update A1c
#Primary hypertension
Continue carvedilol
Volume overload with dialysis should help
#Chronic HFpEF
Volume removal via HD
Secondary/tertiary hyperparathyroidism
Continue with Phos binders
Anxiety/depression
Continue sertraline high-dose
ADD
Hold methylphenidate for now
DVT prophylaxis with heparin sc
Anticipated Discharge: > 48 hours
Subjective/Interval History
-
Date of Service: February 20, 2024
Denies nausea
states of chest/epigastric burning sensation/soreness
no vomiting
had 1 small bm earlier
Objective Data
-
Labs:
Laboratory Results
02/20/24 02/20/24 02/20/24
00:47 07:42 09:09
WBC 9.5 12.6 H
Hgb 8.6 L 9.5 L
Hct 24.5 L 28.1 L
Plt Count 239 D 240
APTT 40.9 H Cancelled 144.8 H
Sodium 131 L
Potassium 4.5 D
Chloride 94 L
Carbon Dioxide 27
BUN 48 H
Creatinine 6.1 H*
Glucose 141 H
Calcium 9.3
Vital Signs:
Vital Signs
Temp Pulse Resp BP Pulse Ox
98.1 F 133 16 118/70 97
02/20/24 07:15 02/20/24 07:58 02/20/24 07:15 02/20/24 07:58 02/20/24 10:45
I&O
02/19/24 02/20/24 02/21/24
06:59 06:59 06:59
Intake Total 300 / 300
Balance 300 / 300
Physical Exam
-
General: Well Developed and No Apparent Distress
HEENT: Normocephalic, Atraumatic and Moist Mucous Membranes
Respiratory: Clear to Auscultation
Cardiac: Regular Rhythm and S1/S2; Negative Murmur, Rub or Gallop
GI: Soft, Nontender, Nondistended and Normal Bowel Sounds; Negative Organomegaly
Rectal: Deferred by Provider
Musculoskeletal: No Clubbing, No Cyanosis and No Edema
Skin: Negative Rash
Neuro: Awake, Alert, Oriented, AO x 3, No Motor Deficits and Nonfocal/Grossly Intact
Psych: Calm
Data Reviewed
-
Total Time Spent with Patient (in minutes): 55
[2024-02-20] MEDS: CARDIZEM CD 120 MG PO (11:54)
[2024-02-20] MEDS: CITROMA 300 ML PO (11:55)
--- NOTE | 2024-02-20 11:56 | W.PN.NEPH.PH ---
Today's Communication / Plan
-
Dialysis tomorrow
Assessment/Plan
-
Impression:
Fevers/nausea /vomiting/Leukocytosis
Constipation
End-stage renal disease Saturday
Hyperkalemia
Profound peripheral vascular disease
Anemia of chronic kidney disease
Coronary artery disease with prior history of CABG
History of CML
Hyperphosphatemia
A-fib with rapid ventricular response
Plan:
HD tomorrow orders provided
GITA for anemia
Appropriate fluid restrictions and dietary modification
Maintain calcium acetate with meals re: hyperphosphatemia
Will provide dialysis on low K bath for hyperkalemia
Blood cultures obtained given fevers: Negative thus far
Strong concern for line sepsis given presence of right IJ hemodialysis catheter (fever, leukocytosis, malaise)
Remains on vancomycin until cultures finalized
A-fib with rapid ventricular response overnight
-
-
Date of Service: February 20, 2024
CC / HPI / ROS
-
Chief Complaint:
End-stage renal disease
History of Present Illness:
End-stage renal disease on Saturday schedule
Hemodynamically stable
Hyperkalemia resolved after dialysis
Review of Systems:
Low-grade fevers persist
No chest pain or shortness of breath at this time
Labs
-
Labs:
WBC 12.6 10^3/uL (4.8-10.8) H 02/20/24 07:42
RBC 2.80 10^6/uL (4.70-6.10) L 02/20/24 07:42
Hgb 9.5 g/dL (13.0-18.0) L 02/20/24 07:42
Hct 28.1 % (39.0-52.0) L 02/20/24 07:42
Plt Count 240 10^3/uL (130-400) 02/20/24 07:42
Sodium 131 mmol/L (135-145) L 02/20/24 07:42
Potassium 4.5 mmol/L (3.5-5.1) D 02/20/24 07:42
Chloride 94 mmol/L (98-107) L 02/20/24 07:42
Carbon Dioxide 27 mmol/L (22-30) 02/20/24 07:42
BUN 48 mg/dl (9-20) H 02/20/24 07:42
Creatinine 6.1 mg/dL (0.7-1.3) H* 02/20/24 07:42
eGFR 9.42 02/20/24 07:42
Glucose 141 mg/dl (70-99) H 02/20/24 07:42
Calcium 9.3 mg/dl (8.4-10.2) 02/20/24 07:42
Albumin 5.0 g/dl (3.5-5.0) 02/19/24 09:53
Physical Exam
-
Vital Signs:
Vital Signs
Temp Pulse Resp BP Pulse Ox
98.1 F 133 16 118/70 97
02/20/24 07:15 02/20/24 07:58 02/20/24 07:15 02/20/24 07:58 02/20/24 10:45
Cardiovascular:: Irregular rate and rhythm
Respiratory:: Bilateral: Coarse
Lung Excursion:: Normal
Abdomen:: Nontender and Soft
Bowel Sounds:: Normal
Extremity Edema:: None: Bilateral:
Luther Catheter: No
[2024-02-20 12:00] LABS: Glucose - Point of Care 201 mg/dl (70-99)
[2024-02-20 12:03] LABS: Glycohemoglobin (HgbA1c) 5.3 % (4.0-5.6)
[2024-02-20] MEDS: NOVOLOG FLEXPEN-LOW RESISTANCE 2 UNITS SC (13:37)
--- NOTE | 2024-02-20 15:25 | PTCARENOTE ---
2127 he�s 86/53 with a hr of 127. Asymptomatic but some back pain currently. MD and cardiology made aware. MD ordering dose of midodrine and adding to PRNs. notified to hold off on giving prn pain medication at this time
--- NOTE | 2024-02-20 15:30 | CON.ID ---
Consultation
-
Date/Time Consultation Requested: 02/19/2024, 1119
Date/Time Consultation Performed: 02/20/2024, 1530
Requesting Provider: Dr. Ac Guevara
Performing Provider: Dr. Shoshana Mathew
Reason for Consultation: Fever
Chief Complaint / Past History
Chief Complaint
N/V
History of Present Illness
68 year old male with DM2, ESRD on HD via HD catheter, LUE AVG not ready for use yet , CAD presented to ED 02/19/24 with 2 d history of N/V and lower abdominal pain. No diarrhea. he was constipated. + chills and malaise. In ED febrile, wbc 14.4. He
was started on Vancomycin. Admission blood cultures + GPC in chains. Had recent dental work on 02/17 in preparation for crown placement. Had tooth pain yesterday now resolved. Abd pain better. Has not eaten outside. No ill contacts. chronic hip
pain without change.
Past History
Additional Past Medical History:
DM2
ESRD on HD via HD catheter
LUE AVG placement 08/2023
CAD s/p CABG s/p stent
Chronic HFpEF
Paroxysmal atrial tachycardia
Anxiety/Depression/ADHD
PAD s/p Left fem-pop bypass
HTN
HLD
Anemia of chronic disease
BPH
RBBB
TIA
FINESSE on CPAP
COPD
lumbar laminectomy/fusion
Multiple foot surgeries
Bilateral ISELA
Allergy History:
latex Allergy (Verified 02/19/24 09:09)
Itching- pt declines having this allergy
morphine Allergy (Verified 02/19/24 09:09)
Itching- pt declines having this allergy
Medications Reviewed: Yes
Current Antibiotics:
Vancomycin day 2
Social History
Tobacco: Former Smoker
Alcohol: None
Drug: None
Personal:
Family History
Family History: Not Pertinent
Review of Systems
Review of Systems
General: Fever, Chills and Change in Appetite
HEENT: Negative Sinus Problems or Headache
Cardiovascular: Negative Dyspnea
Respiratory: Negative Dyspnea or Cough
Endocrine: Weakness
Skin / Hair / Nails: Negative Rash
Neurological: Negative Headache or Dizziness
All systems: All other systems were reviewed and were negative
Vital Signs
Temp Pulse Resp BP Pulse Ox
98.3 F 133 16 118/70 99
02/20/24 11:05 02/20/24 11:54 02/20/24 11:05 02/20/24 11:54 02/20/24 11:05
Selected Entries
02/19/24
23:10
Temp 101.8 F H
Physical Exam
Physical Exam
Constitutional: No Acute Distress and Comfortable
Head: Other (No frontal or maxillary sinus tenderness)
Eyes: No Conjunctival Hemorrhage and Sclera Anicteric
Cardiovascular: Regular Rate and S1/S2
Pulmonary: Clear
Gastrointestinal: Soft, Non Tender and Non Distended
Genito-Urinary: Negative CVA Tenderness
Extremities: Negative Edema
Musculoskeletal: Spinal Tenderness
Skin: Negative Rash
Neurological: AO x 3
Lines: HD Cath (No erythema, no induration.)
Lab / Diagnostic Study Results
02/20/24 07:42
02/20/24 07:42
Abs Immat Gran (auto) 0.1 10^3/uL (0-0.05) H 02/20/24 07:42
Absolute Neuts (auto) 10.2 10^3/uL (1.4-6.5) H 02/20/24 07:42
Absolute Lymphs (auto) 1.0 10^3/uL (1.2-3.4) L 02/20/24 07:42
Absolute Monos (auto) 1.3 10^3/uL (0.1-0.6) H 02/20/24 07:42
Absolute Basos (auto) 0.0 10^3/uL (0-0.2) 02/20/24 07:42
Immature Gran % 0.4 % (0-0.5) 02/20/24 07:42
Neutrophils % 81.2 % (42.2-75.2) H 02/20/24 07:42
Lymphocytes % 7.9 % (20.5-51.1) L 02/20/24 07:42
Monocytes % 10.1 % (1.7-9.3) H 02/20/24 07:42
Eosinophils % 0.2 % (0-6) 02/20/24 07:42
Basophils % 0.2 % (0-2) 02/20/24 07:42
Lactic Acid Cancelled 02/19/24 13:30
Procalcitonin 0.86 ng/ml (0.0-0.25) H 02/19/24 09:53
Ur Squamous Epith Cells 3-5 /LPF (Few) 02/19/24 09:34
Microbiology Results
Micro:
02/19/24 11:16 Blood Culture - Preliminary
Blood/Venous Positive culture in progress
Gram Stain - Preliminary
02/19/24 12:40 MRSA Screen - Final
Nose No Methicillin Resistant Staphylococcus aureus isolated.
02/19/24 09:53 Blood Culture - Preliminary
Blood/Venous Positive culture in progress
Gram Stain - Preliminary
02/19/24 09:32 Influenza Types A & B (JAZZMINE) - Final
Nasal Swab Negative for Influenza A & B, NAAT
Negative results must be combined with clinical observations
and patient history.
Nucleic Acid Amplification test (NAAT)performed on the
[employer] platform.
02/18/2024 HD access duplex US: AV graft is patent, average flow volume 1207 mL/min. Mild elevation of peak systolic velocity at the arterial anastomosis, velocity ratio 2.6. Soft tissue hematoma seen on prior ultrasound is no longer seen.
02/19/2024 CXR: no infiltrates
02/19/2024 AXR: Moderate gaseous distention of the stomach. Moderate amount of stool within the colon, mainly in the right colon and transverse colon.
Assessment / Plan
# GPC in chains bacteremia.
# Sepsis: fever, leukocytosis due to bacteremia
- Await identification of organism
- Ordered TTE
- Repeat blood cx's x 2 in am
- Add ceftriaxone to Vancomycin.
-Trend temps, wbc.
# ESRD on HD.
# DM
[2024-02-20] MEDS: ProAmatine 10 MG PO (15:32)
[2024-02-20 16:25] LABS: Glucose - Point of Care 160 mg/dl (70-99)
[2024-02-20] MEDS: NOVOLOG FLEXPEN-LOW RESISTANCE 1 UNITS SC (16:25)
[2024-02-20] MEDS: PREPARATION H OINTMENT 1 APPLIC RECTAL (16:26)
[2024-02-20] MEDS: NORCO 5/325 1 TABLET PO (16:43)
[2024-02-20] MEDS: STERILE WATER FOR INJECTION 20 ML IV (17:26)
[2024-02-20] MEDS: ROCEPHIN 2000 MG IV (17:26)
[2024-02-20] MEDS: ProAmatine 5 MG PO (17:26)
[2024-02-20] MEDS: NEO-SYNEPHRINE 250 IV (18:53)
[2024-02-20] MEDS: ELIQUIS 5 MG PO (20:48)
--- NOTE | 2024-02-20 21:31 | PTCARENOTE ---
Pt arrived to IMU at shift change. Chaparro drip started by day shift nurse and titrated. BP is now improved since Chaparro drip is at 60mcg.min. Pt's Cardiac rhythm is atrial tachycardia/ atrial fibrillation with Heart rate 100-130's. Hr has come down to
95-100 since BP has improved. Pt is alert and oriented and cooperative and pleasant. Pulse Ox is 97% on room air. Initially pt's respiratory rate was slow at 8-10/min. He was tense and watching sports on TV. Encouraged him to take some deep
breaths and to try to relax. Since then his resp rate has been 12-15.
[2024-02-20] MEDS: COREG PO (22:06)
[2024-02-20] MEDS: LIPITOR 80 MG PO (22:06)
[2024-02-20] MEDS: DULCOLAX PO ×2 (22:09→22:13)
[2024-02-20] MEDS: MELATONIN 5 MG PO (22:09)
[2024-02-20 22:32] LABS: Glucose - Point of Care 148 mg/dl (70-99)
[2024-02-21] VITALS (66 sets, daily range): BP systolic 75–159; BP diastolic 29–88; BMI 29.1
[2024-02-21] MEDS: ATIVAN 1 MG PO ×3 (00:47→23:25)
[2024-02-21] MEDS: PREPARATION H OINTMENT 1 APPLIC RECTAL (01:21)
--- NOTE | 2024-02-21 01:57 | PTCARENOTE ---
Pt noted to convert to NSR at 22:16, ECG obtained and LEATHER STAKER notified. Bp improved with rhythm conversion and able to wean off Neosynephrine drip keeping MAP 80's. Pt was up OOB to the bedside commode for some abd cramping, was unable to have a BM but
voided a small amount. Tolerated it well.
--- NOTE | 2024-02-21 02:03 | PTCARENOTE ---
Pt has had respiratory rates 6-12 and pulse ox has dropped to 87% so placed on O2 at 2 liters. With improvement to 96%. Whenb he watches TV, His breathing slows down at times. Encouraged to take deep breaths.
[2024-02-21] MEDS: COREG 25 MG PO ×3 (02:49→20:21)
[2024-02-21 04:40] LABS: % Basophils 0.3 % (0-2); % Eosinophils 1.4 % (0-6); % Immature Granulocytes 0.3 % (0-0.5); % Monocytes 14.7 % (1.7-9.3); % Neutrophils 67.3 % (42.2-75.2); Absolute Eosinophils 0.1 10^3/uL (0-0.7); Absolute Lymphocytes 1.6 10^3/uL (1.2-3.4); Absolute Monocytes 1.4 10^3/uL (0.1-0.6); Absolute Neutrophils 6.5 10^3/uL (1.4-6.5); Hematocrit 25.7 % (39.0-52.0); Hemoglobin 8.6 g/dL (13.0-18.0); Mean Corp Hgb Conc. 33.5 g/dL (33.0-37.0); Mean Corpuscular Hgb 33.7 pg (27.0-31.0); Mean Corpuscular Volume 100.8 fL (80.0-94.0); Mean Platelet Volume 10.8 fL (7.4-10.4); Nucleated Red Blood Cells % 0 % (-); Platelet Count 263 10^3/uL (130-400); Red Blood Cell Count 2.55 10^6/uL (4.70-6.10); Red Cell Dist. Width 15.5 % (11.5-14.5); White Blood Cell Count 9.7 10^3/uL (4.8-10.8)
[2024-02-21 05:01] LABS: Vancomycin Random 11.9 ug/ml
[2024-02-21 08:13] LABS: Glucose - Point of Care 122 mg/dl (70-99)
--- NOTE | 2024-02-21 08:14 | PTCARENOTE ---
Pt noted to convert back into atrial tachycardia at 0218, ventricular rate 90-130 but maintaining BP without the Chaparro-synephrine drip. DRIVER TRAINER notified and gave pt his does of Coreg that had been held. Gave it at 024. Since then HR has been 120-130
at times. BP remains stable.He has no complaints of any chest pain or pressure.
[2024-02-21] MEDS: NOVOLOG FLEXPEN-LOW RESISTANCE SC ×2 (08:24→17:39)
[2024-02-21] MEDS: ZOLOFT 200 MG PO (08:30)
[2024-02-21] MEDS: MIRALAX 17 GRAMS PO (08:30)
[2024-02-21] MEDS: CARDIZEM CD 120 MG PO (08:31)
[2024-02-21] MEDS: PHOSLO 667 MG PO ×2 (08:31→17:37)
[2024-02-21] MEDS: RITALIN 30 MG PO (08:31)
[2024-02-21] MEDS: PLAVIX 75 MG PO (08:31)
[2024-02-21] MEDS: ProAmatine PO (08:31)
[2024-02-21] MEDS: ZETIA 10 MG PO (08:31)
[2024-02-21] MEDS: SENOKOT-S 1 TABLET PO ×2 (08:31→20:21)
[2024-02-21] MEDS: ELIQUIS 5 MG PO ×2 (08:32→20:20)
[2024-02-21] MEDS: NEPHROCAP 1 CAPSULE PO (08:35)
--- NOTE | 2024-02-21 09:42 | PHA.VAN.FU ---
Vancomycin Assessment / Plan
- Assessment
Hemodialysis Schedule: MWF
WBC's are: WNL
In the past 24 hrs, patient has been: Afebrile
Concomitant Antimicrobials: ceftriaxone
- Assessment - Therapeutic Drug Monitoring
Random Level: 11.9 - pre HD level
prior dosing - pt recd 1000 mg 02/18 once - then another 500 mg at end of HD
- Dosing Plan
Continue: dose by random level HD days
Dosing by Level: Re-dose today (750 mg x 1 after HD today)
- Monitoring Plan
No level(s) ordered at this time: may consider random level Saturday to see if pt maintained therapeutic
- Follow Up
Pharmacy will continue to follow.
Vancomycin Follow UP
- -
Patient Age: 68
Patient Sex: Male
Vancomycin Day #: 3
Indication: Other
Requesting Provider: Dr. Guevara
Pertinent Antimicrobial Allergies:
no pertinent antibiotic allergies
Height / Weight:
Height 5 ft 7 in
Actual Weight 84.3 kg
Pertinent Past Medical History: ESRD on HD MWF, DM
- Vital Signs / Lab Results
Temp Pulse Resp BP Pulse Ox
97.8 F 128 14 120/81 91
02/21/24 03:24 02/21/24 08:00 02/21/24 08:00 02/21/24 08:31 02/21/24 08:52
Lab Results - Hematology
02/19/24 02/20/24 02/20/24
09:53 00:47 07:42
WBC 14.4 H 9.5 12.6 H
02/21/24
04:27
WBC 9.7
Lab Results - Chemistry
02/19/24 02/20/24
09:53 07:42
BUN 76 H 48 H
Creatinine 8.0 H* 6.1 H*
Estimated Creat Clear 8 11
Albumin 5.0
02/19/24 02/19/24
09:53 13:30
Lactic Acid 1.7 Cancelled
Microbiology Results
02/19/24 09:53 Blood Culture - Preliminary
Blood/Venous Positive culture in progress
Gram Stain - Preliminary
02/19/24 11:16 Blood Culture - Preliminary
Blood/Venous Positive culture in progress
Gram Stain - Preliminary
02/19/24 12:40 MRSA Screen - Final
Nose No Methicillin Resistant Staphylococcus aureus isolated.
02/19/24 09:32 Influenza Types A & B (JAZZMINE) - Final
Nasal Swab Negative for Influenza A & B, NAAT
Negative results must be combined with clinical observations
and patient history.
Nucleic Acid Amplification test (NAAT)performed on the
[employer] platform.
Therapeutic Drug Monitoring
Random Vancomycin 11.9 ug/ml 02/21/24 04:27
--- NOTE | 2024-02-21 10:37 | W.PN.CARDCBS ---
Addendum entered and electronically signed by Aidan Christianson MD 02/21/24 12:37:
I saw and examined the patient.
The Survey Associate's note was reviewed and I agree with the note.
Comment:
GEN: No distress, awake, Ox3
HEENT: supple, anicteric, mmm
LUNGS: scatt rhonchi
CV: Irreg,tachy, S1/S2, 1/6 syst LSB, no gallop
ABD: soft, BS+, NT/ND
EXT: trace edema
NEURO: Gross non-focal
SKIN: No rash
Plan:
He continues to have paroxysms of rapid atrial flutter. He did have some period of time overnight where he was in sinus rhythm. Continue Plavix and Eliquis. Hemoglobin overall stable at 8.6. Continue to follow.
Continue midodrine for blood pressure support. He is off pressors.
Will load with amiodarone 400 mg p.o. 3 times daily to try to maintain sinus rhythm. Clinically I suspect he will do much better in sinus rhythm.
Okay to continue Coreg and diltiazem as blood pressure tolerates.
He does have bacteremia now as well. Check transthoracic echo.
Original Note:
Today's Communication / Plan
-
Remains in rapid atrial flutter.
Increase Cardizem to 120mg BID
Continue Coreg 25mg BID
Continue Plavix and Eliquis
Impression / Plan
-
PCP: Dr. Tabor
Cardiology: Dr. Serra
Nephrology: Dr. Anderson
Heme/Onc: Dr. Guzman
Impression:
Presented with fever, N/V
Leukocytosis
Metabolic encephalopathy
Elevated troponin, suspect nonischemic myocardial injury
Paroxysmal atrial tachycardia
Atypical atrial flutter
CAD
s/p LAD PCI 2005
s/p CABG with GARCIA to LAD, SVG to PDA and SVG to OM 07/05/10
NSTEMI, trop 0.51 during August 2023 admission
s/p 4.0 x 15 mm Xience stent at the ostium of the vein graft 10/24/2023
PAD
s/p left femoral endarterectomy with left femoral-above the knee SFA bypass 04/10/2019
ESRD on HD MWF
Sinus bradycardia with Mobitz 1
DM 2
CML
HTN
Hyperlipidemia
Anemia of chronic disease
BPH
Former smoker
Lexiscan nuclear stress test 04/07/19: fixed inferior, anteroseptal and apical defects, no ischemic, EF 42%
Lexiscan nuclear stress test 10/22/2023: Partially reversible inferolateral, inferior, and apical defect consistent with infarction with ischemia.� Ejection fraction 43% with global hypokinesis.
Echo 07/16/2022: EF 60-65% by Kendall's, but closer to 50% visually, mild MR, no /AI, trace TR with mod PHTN with PAP 45-50 mmHg
Echo 09/21/2023: LVEF 65 to 70% with moderate concentric LVH.� No significant valvular disease.
Echo 02/21/2024: Study pending
Plan:
-Presented with fever, nausea, and vomiting. Febrile w/ temp of 103F on arrival. Possible viral gastroenteritis, concern for possible dialysis line infection. Continue abx per primary service.
-Blood cultures 02/18 prelim positive w/ gram+ cocci in chains. Repeat blood cultures pending. Echo ordered.
-Atypical atrial flutter noted on EKG and telemetry this admission. HRs elevated on coreg 25mg BID, so started on diltiazem 120mg daily 02/19.
-Briefly was in SR overnight, however recurred with rapid atrial flutter which he remains in at this time. Will start amiodarone load with 400mg TID.
-Hypotension noted in PM 02/19. Started on midodrine and eventually started on marco for BP support which was able to be turned off overnight.
-Patient has not historically been felt to be candidate for anticoagulation due to history of subdural bleed, however now w/ atrial flutter, was started on Eliquis 5mg BID
-Aspirin stopped and will be maintained on Plavix and Eliquis given recent PCI 09/2023. Hgb 8.6. Follow.
-Elevated troponin noted with peak troponin of 0.204. Suspect nonischemic myocardial injury in the setting of atrial tachycardia/flutter and SIRS.
-Continue HD MWF. K improved after dialysis session 02/18.
HPI: Paramjit is a 68 year old male with PMH of CAD w/ recent PCI of vein graft, PAD, ESRD on HD, atrial tachycardia, DM2, CML, HTN, HLD, anemia, and BPH who presented to [facility] for evaluation after he started with nausea, vomiting, and fever after recent
dental procedure. He had elevated temp of 103.0F on arrival with WBC of 14.4. Covid and flu testing negative. UA without evidence of UTI and chest xray without evidence of pneumonia. He was started on abx for concern of possible dialysis line
infection and reports he has had no vomiting or diarrhea overnight. He did have some chest 'flopping' and palpitations 02/18, EKG revealed atrial tachycardia with HRs up into the 130s. Troponin checked and was mildly elevated at 0.127, trending up to
0.204 and trending down thereafter. He reports ongoing flopping/fluttering sensation in his chest that is unchanged. Cardiology consulted for evaluation given atrial tachycardia with elevated HRs and elevated troponin.
Progress Note - Perinatal Tech
Subjective
Date of Service: February 21, 2024
No significant complaints. No chest pain. Still w/ palps.
Objective
Labs:
02/21/24 04:
Labs
Hgb 8.6 g/dL (13.0-18.0) L 02/21/24:
Hct 25.7 % (39.0-52.0) L 02/21/24:
Plt Count 263 10^3/uL (130-400) 03/29/24 04:27
APTT 144.8 Sec (23.4-35.0) H 02/20/24 09:09
Sodium 131 mmol/L (135-145) L 02/20/24 07:42
Potassium 4.5 mmol/L (3.5-5.1) D 02/20/24 07:42
BUN 48 mg/dl (9-20) H 02/20/24 07:42
Creatinine 6.1 mg/dL (0.7-1.3) H* 02/20/24 07:42
Glucose 141 mg/dl (70-99) H 02/20/24 07:42
Troponins
02/19/24 02/19/24 02/20/24
12:45 18:26 00:47
Troponin I 0.127 H* 0.204 H* D 0.142 H* D
Vital Signs and I&O:
Vital Signs
Temp Pulse Resp BP Pulse Ox
98.2 F 128 14 120/81 91
02/21/24 07:49 02/21/24 08:00 02/21/24 08:00 02/21/24 08:31 02/21/24 08:52
Vital Signs
Temp Pulse Resp BP Pulse Ox
98.2 F 128 14 120/81 91
02/21/24 07:49 02/21/24 08:00 02/21/24 08:00 02/21/24 08:31 02/21/24 08:52
Intake & Output
02/19/24 02/20/24 02/21/24 02/22/24
06:59 06:59 06:59 06:59
Intake Total 300 / 300 841 / 841
Balance 300 / 300 841 / 841
Physical Exam
Physical Exam
GEN: No distress, awake, alert, oriented x3
HEENT: supple, anicteric, mmm
LUNGS: CTA b/l, no wheezes/rales
CV: Irreg, S1/S2, no murmur
EXT: No clubbing, cyanosis, or edema
NEURO: Gross non-focal
SKIN: Warm, dry, no rash
--- NOTE | 2024-02-21 11:40 | PTCARENOTE ---
Pt ordered M & M enema. Administered as ordered. Pt tolerated well, good results observed. Cassia care completed.
--- NOTE | 2024-02-21 12:06 | W.PN.ID1 ---
Date of Service
Date of Service: February 21, 2024
Today's Communication
Continue ceftriaxone, Vancomycin pending culture data.
Assessment / Plan
# GPC in chains bacteremia.
# s/p Sepsis: fever, leukocytosis due to bacteremia
# ESRD on HD via tunneled catheter
# DM
- fever resolved
- Await identification of organism
- TTE ordered
- Follow Repeat blood cx's x 2 in am
- Continue ceftriaxone to Vancomycin.
#Additional Past Medical History:
DM2
ESRD on HD via HD catheter
LUE AVG placement 08/2023
CAD s/p CABG s/p stent
Chronic HFpEF
Paroxysmal atrial tachycardia
Anxiety/Depression/ADHD
PAD s/p Left fem-pop bypass
HTN
HLD
Anemia of chronic disease
BPH
RBBB
TIA
FINESSE on CPAP
COPD
lumbar laminectomy/fusion
Multiple foot surgeries
Bilateral ISELA
Chief Complaint
-: Bacteremia
Subjective / Review of Systems
Doing OK.
Vital Signs / Physical Exam
Vital Signs
Vital Signs
Temp Pulse Resp BP Pulse Ox
98.5 F 132 6 91/65 98
02/21/24 11:19 02/21/24 11:15 02/21/24 11:15 02/21/24 11:00 02/21/24 11:15
Physical Exam
Constitutional: No Acute Distress and Comfortable
Cardiovascular: Regular Rate and S1/S2
Pulmonary: Clear
Gastrointestinal: Soft, Non Tender and Non Distended
Extremities: Negative Edema
Lines: HD Cath (No erythema)
Objective Data
Lab Data
Lab Results
02/21/24 04:27
APTT 144.8 Sec (23.4-35.0) H 02/20/24 09:09
Estimated Creat Clear 11 ml/min 02/20/24 07:42
Lactic Acid Cancelled 02/19/24 13:30
Total Bilirubin 0.7 mg/dl (0.2-1.3) 02/19/24 09:53
AST 28 U/L (17-59) 02/19/24 09:53
ALT 21 U/L (0-50) 02/19/24 09:53
Alkaline Phosphatase 83 U/L (38-126) 02/19/24 09:53
Most recent labs reviewed.
Micro Results:
02/19/24 09:53 Blood Culture - Preliminary
Blood/Venous Positive culture in progress
Gram Stain - Preliminary
02/21/24 05:27 Blood Culture - Pending
Blood/Venous
02/21/24 04:27 Blood Culture - Pending
Blood/Venous
02/19/24 11:16 Blood Culture - Preliminary
Blood/Venous Positive culture in progress
Gram Stain - Preliminary
02/19/24 12:40 MRSA Screen - Final
Nose No Methicillin Resistant Staphylococcus aureus isolated.
02/19/24 09:32 Influenza Types A & B (JAZZMINE) - Final
Nasal Swab Negative for Influenza A & B, NAAT
Negative results must be combined with clinical observations
and patient history.
Nucleic Acid Amplification test (NAAT)performed on the
[employer] platform.
02/18/2024 HD access duplex US: AV graft is patent, average flow volume 1207 mL/min. Mild elevation of peak systolic velocity at the arterial anastomosis, velocity ratio 2.6. Soft tissue hematoma seen on prior ultrasound is no longer seen.
02/19/2024 CXR: no infiltrates
02/19/2024 AXR: Moderate gaseous distention of the stomach. Moderate amount of stool within the colon, mainly in the right colon and transverse colon.
[2024-02-21] MEDS: ProAmatine 5 MG PO ×2 (12:11→17:36)
[2024-02-21] MEDS: TYLENOL 650 MG PO (12:12)
[2024-02-21] MEDS: PACERONE 400 MG PO ×3 (12:14→20:21)
[2024-02-21] MEDS: NOVOLOG FLEXPEN-LOW RESISTANCE 1 UNITS SC (12:14)
[2024-02-21] MEDS: PHOSLO PO (12:14)
[2024-02-21 12:17] LABS: Glucose - Point of Care 157 mg/dl (70-99)
--- NOTE | 2024-02-21 12:27 | W.PN.HOSP.TC ---
Addendum entered and electronically signed by Ac Guevara MD 02/21/24 16:09:
Abnormal lab value insignificant
Original Note:
Today's Communication/Plan
-
Enema
HD today
IV abx
await culture data
TTE
Assessment / Plan
Assessment / Plan
#Hyperkalemia
#ESRD on hemodialysis Saturday
s/p emergent HD on admission
K normalized.
HD today
# Sepsis -poa
#Fever likely secondary to gram-positive bacteremia
Hemodynamically stable
Blood cultures positive. Await final defecations. Respiratory results.
Surveillance cultures ordered
Echocardiogram ordered
Pro-Manjit elevated however not accurate in the setting of renal failure
vancomycin started and ceftriaxone added by infectious disease
ID consulted
#Nausea and vomiting likely 2/2 severe constipation
Lactic acid normal and BP stable.
started on aggressive bowel regimen
Will give trial of enema today
diet advanced
#Mild metabolic encephalopathy likely 2/2 uremia vs. medication (ativan/narcotics)
Monitor mentation closely with dialysis
Mentation improved and AOX3
#Chest discomfort likely secondary to musculoskeletal versus topical status post vomiting rule out ACS
#CAD status post CABG status post stents
#Hx of RBBB
#Elevted troponin likely Non Ishemic myocardial injury
Continue with aspirin, statin and beta-keny
Plavix discontinued in the setting of Eliquis
trop downtrended
hep gtt Dced
cards recs
#Paroxysmal atrial tachycardia vs. atypical flutter
remains tachy
started on cardizem 120mg daily
cont coreg 25mg bid
Started on Eliquis
# Transient hypotension likely secondary to tachycardia atrial
Status post pressors
Midodrine for now
Blood pressure stabilized
#PAD status post stent and bypass
Continue aspirin and statin
Plavix discontinued in the setting of Eliquis
#Diabetes mellitus type 2
Hold p.o. meds
Sliding-scale Accu-Cheks
#Primary hypertension
Continue carvedilol
Volume overload with dialysis should help
#Chronic HFpEF
Volume removal via HD
Secondary/tertiary hyperparathyroidism
Continue with Phos binders
Anxiety/depression
Continue sertraline high-dose
ADD
Hold methylphenidate for now
DVT prophylaxis with heparin sc
Anticipated Discharge: > 48 hours
Subjective/Interval History
-
Date of Service: February 21, 2024
states of abd cramps
no nausea or vomiting
no bm
BP stabilized
Objective Data
-
Labs:
Laboratory Results
02/21/24
04:27
WBC 9.7
Hgb 8.6 L
Hct 25.7 L
Plt Count 263
Vital Signs:
Vital Signs
Temp Pulse Resp BP Pulse Ox
98.5 F 132 6 91/65 98
02/21/24 11:19 02/21/24 11:15 02/21/24 11:15 02/21/24 11:00 02/21/24 11:15
I&O
02/20/24 02/21/24 02/22/24
06:59 06:59 06:59
Intake Total 300 / 300 841 / 841
Balance 300 / 300 841 / 841
Physical Exam
-
General: Well Developed and No Apparent Distress
HEENT: Normocephalic, Atraumatic and Moist Mucous Membranes
Respiratory: Clear to Auscultation
Cardiac: S1/S2, Irregular Rhythm and Tachycardic; Negative Murmur, Rub or Gallop
GI: Soft, Nontender, Nondistended and Normal Bowel Sounds; Negative Organomegaly
Rectal: Deferred by Provider
Musculoskeletal: No Clubbing, No Cyanosis and No Edema
Skin: Negative Rash
Neuro: Awake, Alert, Oriented, AO x 3, No Motor Deficits and Nonfocal/Grossly Intact
Psych: Calm
Data Reviewed
-
Total Time Spent with Patient (in minutes): 55
--- NOTE | 2024-02-21 12:47 | CM ---
Patient with Hx including ESRD on HD with Dx sepsis, Mild metabolic encephalopathy. HD today.
Per nurse Erum; started on PO Amiodarone & O2 2L for atrial tach. IV Chaparro off and receiving midodrine. Not OOB today due to heart rate.
Met with patient who is known to this CM from his prior admission. Patient A/O and conversant. Patient volunteers that he was falling a lot at home on the week before admission and is hoping he can [facility].
Phone call to [facility] to confirm patient falls at home & mobility; left message requesting callback.
[facility].
Patient will benefit from PT/OT Evals when medically appropriate.
Plan follow up for PT/OT orders.
Plan follow up after seen by PT/OT.
--- NOTE | 2024-02-21 12:52 | PTCARENOTE ---
Pt converted to NSR. Strip placed in chart.
--- NOTE | 2024-02-21 13:02 | PTCARENOTE ---
To GI lab via [employer].
[2024-02-21 13:36] LABS: Carbon Dioxide 30 mmol/L (22-30); Chloride 96 mmol/L (98-107); Potassium 3.8 mmol/L (3.5-5.1); Sodium 134 mmol/L (135-145)
[2024-02-21] MEDS: RETACRIT 8000 UNITS IV (13:47)
[2024-02-21] MEDS: MANNITOL 12.5 GRAMS IV (14:16)
[2024-02-21] MEDS: VANCOCIN 150 IV (14:40)
--- NOTE | 2024-02-21 14:53 | W.PN.NEPH.HD ---
Assessment
-
Patient seen on dialysis
Systolic blood pressure around 90
Ultrafiltration down to 0.5 kg given hemodynamic instability in setting of A-fib, now on amiodarone
Patient remains bacteremic on vancomycin and ceftriaxone
Echocardiogram today to assess for vegetation
Patient may need tunneled catheter removed in setting of strep bacteremia, will defer to infectious disease
Discussed with and patient
Left upper extremity AV graft will likely need to be inspected by vascular as patient had appointment next week
Progress Note - Hemodialysis
-
Date of Service: February 21, 2024
Duration: 30 minutes and 3 hours
Potassium Bath: 3
Calcium Bath: 2.5
Opti-Dialyzer: 160
Blood Flow: 400
Dialysate Flow: 600
Heparin: None
EPO: 8000
[2024-02-21] MEDS: HEPARIN 4200 UNITS INTRACATH (15:42)
--- NOTE | 2024-02-21 15:44 | PN.CDI ---
CDI
- -
CDI:
Physician Documentation Request
Admit Date: 02/19/24 11:38
Dear Doctor Ismael,
Patient admitted for sepsis.
Laboratory Tests
02/19/24 02/20/24 02/21/24
09:53 07:42 13:11
Sodium 132 L 131 L 134 L
Based on the above, could you clarify in the progress notes, the appropriate diagnosis, if significant, that supports the above abnormalities and additional evaluation, monitoring and/or treatment rendered:
Hyponatremia
Abnormal lab value insignificant
Other
Use of terms such as suspected, likely, concern for, or probable (associated with a specific diagnosis that is being evaluated, monitored, or treated as if it exists) are acceptable and can be coded in the inpatient setting, when documented at the
time of discharge.
Thank you,
Mel Dias RN, BSN
CDI Specialist
Available via [employer] text
Please use your independent medical judgment in providing your response.
--- NOTE | 2024-02-21 16:20 | VNURNOTE ---
Home Health Liaison met with patient and [facility] at 1500 to discuss [facility] nurse/therapy, visits, schedule and homebound status. Patient is agreeable and understands that visits at home will be 2-3 x per week to assess and teach medical
management.
[facility] brochure provided with contact information. Patient is aware that [facility] will contact them for start of care in 1-2 days after discharge from .
[facility] referral completed in [facility].
[2024-02-21] MEDS: ROCEPHIN 2000 MG IV (17:37)
[2024-02-21] MEDS: NORCO 5/325 1 TABLET PO (17:37)
[2024-02-21] MEDS: STERILE WATER FOR INJECTION 20 ML IV (17:37)
[2024-02-21 17:41] LABS: Glucose - Point of Care 101 mg/dl (70-99)
[2024-02-21] MEDS: LIPITOR 80 MG PO (20:21)
[2024-02-21] MEDS: MELATONIN 5 MG PO (20:21)
[2024-02-21] MEDS: DULCOLAX 10 MG PO (20:21)
[2024-02-21 20:41] LABS: Glucose - Point of Care 135 mg/dl (70-99)
[2024-02-22] VITALS (13 sets, daily range): BP systolic 83–160; BP diastolic 32–71; BMI 29.1
[2024-02-22 08:03] LABS: Glucose - Point of Care 91 mg/dl (70-99)
[2024-02-22] MEDS: NOVOLOG FLEXPEN-LOW RESISTANCE SC ×2 (08:15→13:42)
[2024-02-22] MEDS: COREG PO (08:18)
--- NOTE | 2024-02-22 08:20 | W.PN.ID1 ---
Date of Service
Date of Service: February 22, 2024
Today's Communication
Continue antibiotics.
Assessment / Plan
# GPC in chains bacteremia.
- Isolate sent to reference laboratory for identification and susceptibilities.
# s/p Sepsis: fever, leukocytosis due to bacteremia
# ESRD on HD via tunneled catheter
# DM
- fever resolved
- Await identification of organism
- TTE ordered
- Follow Repeat blood cx's x 2 in am
- Continue ceftriaxone & Vancomycin.
#Additional Past Medical History:
DM2
ESRD on HD via HD catheter
LUE AVG placement 08/2023
CAD s/p CABG s/p stent
Chronic HFpEF
Paroxysmal atrial tachycardia
Anxiety/Depression/ADHD
PAD s/p Left fem-pop bypass
HTN
HLD
Anemia of chronic disease
BPH
RBBB
TIA
FINESSE on CPAP
COPD
lumbar laminectomy/fusion
Multiple foot surgeries
Bilateral ISELA
Chief Complaint
-: Bacteremia
Subjective / Review of Systems
Review of Systems: No Fever and No Chills
Vital Signs / Physical Exam
Vital Signs
Vital Signs
Temp Pulse Resp BP Pulse Ox
97.7 F 64 14 116/53 100
02/22/24 04:15 02/22/24 06:00 02/22/24 06:00 02/22/24 06:00 02/22/24 06:00
Physical Exam
Constitutional: No Acute Distress, Comfortable and Non-toxic
Eyes: No Conjunctival Hemorrhage
Cardiovascular: S1/S2; Negative S3/S4
Pulmonary: Non Labored
Gastrointestinal: Soft
Neurological: Awake and Alert
Psychological: Calm
Objective Data
Lab Data
Lab Results
02/21/24 04:27
02/21/24 13:11
APTT 144.8 Sec (23.4-35.0) H 02/20/24 09:09
Estimated Creat Clear 11 ml/min 02/20/24 07:42
Lactic Acid Cancelled 02/19/24 13:30
Total Bilirubin 0.7 mg/dl (0.2-1.3) 02/19/24 09:53
AST 28 U/L (17-59) 02/19/24 09:53
ALT 21 U/L (0-50) 02/19/24 09:53
Alkaline Phosphatase 83 U/L (38-126) 02/19/24 09:53
Most recent labs reviewed.
Micro Results:
02/22/24 03:36 Blood Culture - Pending
Blood/Venous
02/21/24 05:27 Blood Culture - Preliminary
Blood/Venous No Growth in 24 hours- Final report to follow
02/21/24 04:27 Blood Culture - Preliminary
Blood/Venous No Growth in 24 hours- Final report to follow
02/19/24 11:16 Blood Culture - Preliminary
Blood/Venous Positive culture in progress
Gram Stain - Preliminary
02/19/24 09:53 Blood Culture - Preliminary
Blood/Venous Positive culture in progress
Gram Stain - Preliminary
02/19/24 12:40 MRSA Screen - Final
Nose No Methicillin Resistant Staphylococcus aureus isolated.
02/19/24 09:32 Influenza Types A & B (JAZZMINE) - Final
Nasal Swab Negative for Influenza A & B, NAAT
Negative results must be combined with clinical observations
and patient history.
Nucleic Acid Amplification test (NAAT)performed on the
[employer] platform.
02/18/2024 HD access duplex US: AV graft is patent, average flow volume 1207 mL/min. Mild elevation of peak systolic velocity at the arterial anastomosis, velocity ratio 2.6. Soft tissue hematoma seen on prior ultrasound is no longer seen.
02/19/2024 CXR: no infiltrates
02/19/2024 AXR: Moderate gaseous distention of the stomach. Moderate amount of stool within the colon, mainly in the right colon and transverse colon.
[2024-02-22] MEDS: ELIQUIS PO (08:32)
[2024-02-22] MEDS: MIRALAX PO (08:32)
[2024-02-22] MEDS: SENOKOT-S PO ×2 (08:33→19:31)
[2024-02-22] MEDS: ProAmatine PO ×2 (08:47→13:42)
[2024-02-22] MEDS: ProAmatine 10 MG PO ×2 (08:52→17:44)
[2024-02-22] MEDS: PHOSLO 667 MG PO ×3 (08:52→17:42)
[2024-02-22] MEDS: ZETIA 10 MG PO (08:52)
[2024-02-22] MEDS: RITALIN 30 MG PO (08:53)
[2024-02-22] MEDS: ZOLOFT 200 MG PO (08:53)
[2024-02-22] MEDS: PACERONE 400 MG PO ×3 (08:53→21:48)
[2024-02-22] MEDS: PLAVIX 75 MG PO (08:53)
[2024-02-22] MEDS: CARDIZEM CD PO (08:53)
[2024-02-22] MEDS: ZYRTEC 5 MG PO (08:55)
[2024-02-22] MEDS: NORCO 5/325 1 TABLET PO ×3 (09:01→21:49)
--- NOTE | 2024-02-22 10:05 | PTCARENOTE ---
Assumed care of pt from night RN, pt AAOx3, makes needs known. Had some complaints of pain in lower back, prn [place] administered as ordered with positive effect noted. Pt with significant bleeding from R Midline, dressing changed by IV Team and ALMA
wrap intact. Sherry held this AM and tonight per Dr. Guevara. Ivet and Tammie held this AM per BP parameters. Pt OOB to bathroom this morning and washed up. Will continue to monitor through shift.
--- NOTE | 2024-02-22 10:11 | PHA.VAN.FU ---
Vancomycin Assessment / Plan
- Assessment
Hemodialysis Schedule: MWF
Last Hemodialysis performed: 02/21/2024
In the past 24 hrs, patient has been: Afebrile
Concomitant Antimicrobials: Ceftriaxone
- Dosing Plan
Continue: Dosing by level
Dosing by Level: Hold off on dosing today (Received Vanc 750mg 02/20 at 1440 post-HD)
- Monitoring Plan
Random Level: R 02/22 AM to see if pt still therapeutic
- Follow Up
Pharmacy will continue to follow.
Vancomycin Follow UP
- -
Patient Age: 68
Patient Sex: Male
Vancomycin Day #: 4
Indication: Other
Requesting Provider: Dr. Guevara
Pertinent Antimicrobial Allergies:
no pertinent antibiotic allergies
Height / Weight:
Height 5 ft 7 in
Actual Weight 84.3 kg
Pertinent Past Medical History: ESRD on HD MWF, DM
- Vital Signs / Lab Results
Temp Pulse Resp BP Pulse Ox
98.6 F 64 14 83/32 98
02/22/24 07:35 02/22/24 06:00 02/22/24 06:00 02/22/24 08:53 02/22/24 08:00
Lab Results - Hematology
02/20/24 02/20/24 02/21/24
00:47 07:42 04:27
WBC 9.5 12.6 H 9.7
Lab Results - Chemistry
02/19/24 02/20/24
09:53 07:42
BUN 76 H 48 H
Creatinine 8.0 H* 6.1 H*
Estimated Creat Clear 8 11
Albumin 5.0
02/19/24 02/19/24
09:53 13:30
Lactic Acid 1.7 Cancelled
Microbiology Results
02/19/24 11:16 Blood Culture - Preliminary
Blood/Venous Positive culture in progress
Gram Stain - Preliminary
02/19/24 09:53 Blood Culture - Preliminary
Blood/Venous Positive culture in progress
Gram Stain - Preliminary
02/21/24 05:27 Blood Culture - Preliminary
Blood/Venous No Growth in 24 hours- Final report to follow
02/21/24 04:27 Blood Culture - Preliminary
Blood/Venous No Growth in 24 hours- Final report to follow
02/19/24 12:40 MRSA Screen - Final
Nose No Methicillin Resistant Staphylococcus aureus isolated.
Therapeutic Drug Monitoring
Random Vancomycin 11.9 ug/ml 02/21/24 04:27
--- NOTE | 2024-02-22 10:17 | W.PN.NEPH.PH ---
Today's Communication / Plan
-
HD saturday
Assessment/Plan
-
Impression:
Fevers/nausea /vomiting/Leukocytosis
Constipation
End-stage renal disease Saturday
Hyperkalemia
Profound peripheral vascular disease
Anemia of chronic kidney disease
Coronary artery disease with prior history of CABG
History of CML
Hyperphosphatemia
A-fib with rapid ventricular response
Plan:
HD saturday
GITA for anemia
Appropriate fluid restrictions and dietary modification
Maintain calcium acetate with meals re: hyperphosphatemia
Will provide dialysis on low K bath for hyperkalemia
abx per ID
has OP vascular appt saturday
on high dose midodrine
will likely need to reduce either coreg or diltiazem
-
-
Date of Service: February 22, 2024
CC / HPI / ROS
-
Chief Complaint:
End-stage renal disease
History of Present Illness:
End-stage renal disease on Saturday schedule
Hemodynamically stable
toelrated HD yesterday
BP low
Review of Systems:
No chest pain or shortness of breath at this time
Labs
-
Labs:
WBC 9.7 10^3/uL (4.8-10.8) 02/21/24 04:27
RBC 2.55 10^6/uL (4.70-6.10) L 02/21/24 04:27
Hgb 8.6 g/dL (13.0-18.0) L 02/21/24 04:27
Hct 25.7 % (39.0-52.0) L 02/21/24 04:27
Plt Count 263 10^3/uL (130-400) 02/21/24 04:27
Sodium 134 mmol/L (135-145) L 02/21/24 13:11
Potassium 3.8 mmol/L (3.5-5.1) 02/21/24 13:11
Chloride 96 mmol/L (98-107) L 02/21/24 13:11
Carbon Dioxide 30 mmol/L (22-30) 02/21/24 13:11
BUN 48 mg/dl (9-20) H 02/20/24 07:42
Creatinine 6.1 mg/dL (0.7-1.3) H* 02/20/24 07:42
eGFR 9.42 02/20/24 07:42
Glucose 141 mg/dl (70-99) H 02/20/24 07:42
Calcium 9.3 mg/dl (8.4-10.2) 02/20/24 07:42
Albumin 5.0 g/dl (3.5-5.0) 02/19/24 09:53
Physical Exam
-
Vital Signs:
Vital Signs
Temp Pulse Resp BP Pulse Ox
98.6 F 64 14 83/32 98
02/22/24 07:35 02/22/24 06:00 02/22/24 06:00 02/22/24 08:53 02/22/24 08:00
Cardiovascular:: Irregular rate and rhythm
Respiratory:: Bilateral: Coarse
Lung Excursion:: Normal
Abdomen:: Nontender and Soft
Bowel Sounds:: Normal
Extremity Edema:: None: Bilateral:
--- NOTE | 2024-02-22 10:26 | W.PN.CARDCBS ---
Addendum entered and electronically signed by Aidan Christianson MD 02/22/24 11:58:
I saw and examined the patient.
The Warehouse Shipping Supervisor's note was reviewed and I agree with the note.
Comment: GEN: No distress, awake, Ox3
HEENT: supple, anicteric, mmm
LUNGS: CTA, no wheezes/rales
CV: Reg, S1/S2, 1/6 syst LSB, no gallop
ABD: soft, BS+, NT/ND
EXT: R qrm bruising/ecchymosis
NEURO: Gross non-focal
SKIN: ecchymosis
PLan:
He is in sinus rhythm this morning and seems to be doing well with the amiodarone. Continue amiodarone load today.
His blood pressure is marginal. Will stop diltiazem and continue midodrine. Continue carvedilol as blood pressure allows.
Continue Plavix and Eliquis.
He does have bacteremia but transthoracic echo yesterday had no clear evidence of endovascular disease.
Continue hemodialysis per nephrology
Source of bacteremia remains unclear
Original Note:
Today's Communication / Plan
-
New to amiodarone this admission and has received a 1.6 gram load
New to midodrine
New to Eliquis
Impression / Plan
-
PCP: Dr. Tabor
Cardiology: Dr. Serra
Nephrology: Dr. Anderson
Heme/Onc: Dr. Guzman
Impression:
Presented with fever, N/V
Leukocytosis
Positive blood cultures form 02/19/24
Metabolic encephalopathy
Elevated troponin, suspect nonischemic myocardial injury
Paroxysmal atrial tachycardia
Atypical atrial flutter
CAD
s/p LAD PCI 2005
s/p CABG with GARCIA to LAD, SVG to PDA and SVG to OM 8/11/10
NSTEMI, trop 0.51 during August 2023 admission
s/p 4.0 x 15 mm Xience stent at the ostium of the vein graft 10/24/2023
PAD
s/p left femoral endarterectomy with left femoral-above the knee SFA bypass 04/10/2019
ESRD on HD MWF
Sinus bradycardia with Mobitz 1
DM 2
CML
HTN
Hyperlipidemia
Anemia of chronic disease
BPH
Former smoker
Lexiscan nuclear stress test 04/07/19: fixed inferior, anteroseptal and apical defects, no ischemic, EF 42%
Lexiscan nuclear stress test 10/22/2023: Partially reversible inferolateral, inferior, and apical defect consistent with infarction with ischemia.� Ejection fraction 43% with global hypokinesis.
Echo 07/16/2022: EF 60-65% by Kendall's, but closer to 50% visually, mild MR, no /AI, trace TR with mod PHTN with PAP 45-50 mmHg
Echo 09/21/2023: LVEF 65 to 70% with moderate concentric LVH.� No significant valvular disease.
Echo 02/21/2024: EF 55%, normal regional wall motion, mild conc LVH, normal RV size and function, mild MR, no aortic regurgitation
Plan:
-Troponin peaked at 0.204. Will manage as a nonischemic myocardial injury Troponin elevation due to atrial arrhythmia
-Atypical atrial flutter noted on EKG and telemetry. HR controlled improved on usual dose of Coreg 25 mg BID and newly started amiodarone 400 mg TID from this admission. Patient has received a 1.6 gram load as of 02/22/24 AM. Patient was started on
Cardizem CD 120 mg daily this admission, but doses being held due to hypotension so will stop.
-New to Eliquis 5 mg BID this admission due to ongoing atrial arrhythmia
-Aspirin stopped and will be maintained on Plavix and Eliquis given recent PCI 09/2023. Hgb 8.6. Follow.
-Midodrine 10 mg TID started this admission for hypotension
-Afebrile for the last 48 hours. Blood cultures positive for growth on 02/19/24, but then no growth on repeat cultures 02/21/24.
-Continue HD MWF. Hyperkalemia on admission has improved with HD sessions as an inpatient.
HPI: Paramjit is a 68 year old male with PMH of CAD w/ recent PCI of vein graft, PAD, ESRD on HD, atrial tachycardia, DM2, CML, HTN, HLD, anemia, and BPH who presented to [facility] for evaluation after he started with nausea, vomiting, and fever after recent
dental procedure. He had elevated temp of 103.0F on arrival with WBC of 14.4. Covid and flu testing negative. UA without evidence of UTI and chest xray without evidence of pneumonia. He was started on abx for concern of possible dialysis line
infection and reports he has had no vomiting or diarrhea overnight. He did have some chest 'flopping' and palpitations 02/18, EKG revealed atrial tachycardia with HRs up into the 130s. Troponin checked and was mildly elevated at 0.127, trending up to
0.204 and trending down thereafter. He reports ongoing flopping/fluttering sensation in his chest that is unchanged. Cardiology consulted for evaluation given atrial tachycardia with elevated HRs and elevated troponin.
Progress Note - Swaging Machine Operator
Subjective
Date of Service: February 22, 2024
He feels well
Objective
Labs:
02/21/24 04:27
02/21/24 13:11
Labs
Hgb 8.6 g/dL (13.0-18.0) L 02/21/24 04:27
Hct 25.7 % (39.0-52.0) L 02/21/24 04:27
Plt Count 263 10^3/uL (130-400) 02/21/24 04:27
APTT 144.8 Sec (23.4-35.0) H 02/20/24 09:09
Sodium 134 mmol/L (135-145) L 02/21/24 13:11
Potassium 3.8 mmol/L (3.5-5.1) 02/21/24 13:11
BUN 48 mg/dl (9-20) H 02/20/24 07:42
Creatinine 6.1 mg/dL (0.7-1.3) H* 02/20/24 07:42
Glucose 141 mg/dl (70-99) H 02/20/24 07:42
Troponins
02/19/24 02/19/24 02/20/24
12:45 18:26 00:47
Troponin I 0.127 H* 0.204 H* D 0.142 H* D
Vital Signs and I&O:
Vital Signs
Temp Pulse Resp BP Pulse Ox
98.6 F 64 14 98
02/22/24 07:35 02/22/24 06:00 02/22/24 06:00 02/22/24 08:53 02/22/24 08:00
Vital Signs
Temp Pulse Resp BP Pulse Ox
98.6 F 64 14 98
02/22/24 07:35 02/22/24 06:00 02/22/24 06:00 02/22/24 08:53 02/22/24 08:00
Intake & Output
02/20/24 02/21/24 02/22/24 02/23/24
06:59 06:59 06:59 06:59
Intake Total 300 / 300 841 / 841 240 / 240 300 / 300
Balance 300 / 300 841 / 841 240 / 240 300 / 300
Physical Exam
Physical Exam
GEN: NAD. AAO x3
HEENT: EOMI
LUNGS: CTA B/L
CV: Irreg, murmur
EXT: No edema B/L
NEURO: Gross non-focal
SKIN: Warm, dry, no rash
--- NOTE | 2024-02-22 10:59 | W.PN.HOSP.TC ---
Today's Communication/Plan
-
Hold eliquis due to bleeding
increase midodrine
monitor BP
IV abx
Assessment / Plan
Assessment / Plan
#Hyperkalemia
#ESRD on hemodialysis Saturday
s/p emergent HD on admission
K normalized.
HD today
# Sepsis -poa
#Fever likely secondary to gram-positive bacteremia
Hemodynamically stable
Blood cultures positive and unknown and Bcx sent out for identification
Surveillance cultures ordered
Echocardiogram noted.
Pro-Manjit elevated however not accurate in the setting of renal failure
vancomycin started and ceftriaxone added by infectious disease
ID consulted
#Nausea and vomiting likely 2/2 severe constipation
Lactic acid normal and BP stable.
started on aggressive bowel regimen
s/p resolution
received Enema on 02/20 with good results.
diet advanced
#Mild metabolic encephalopathy likely 2/2 uremia vs. medication (ativan/narcotics)
Monitor mentation closely with dialysis
Mentation improved and AOX3
#Chest discomfort likely secondary to musculoskeletal versus topical status post vomiting rule out ACS
#CAD status post CABG status post stents
#Hx of RBBB
#Elevted troponin likely Non Ishemic myocardial injury
Continue with Plavix statin and beta-keny
Aspirin discontinued in the setting of Eliquis
trop downtrended
hep gtt Dced
cards recs
#Paroxysmal atrial tachycardia vs. atypical flutter
remains tachy
started on cardizem 120mg daily
cont coreg 25mg bid
Started on Eliquis
# hypotension likely secondary to tachycardia atrial
Status post pressors
Midodrine for now 5mg increased to 10mg TID
#PAD status post stent and bypass
Continue Plavix and statin
Aspirin discontinued in the setting of Eliquis
#Bleeding from midline site
Holding Eliquis till stabilization
on plavix
#Diabetes mellitus type 2
Hold p.o. meds
Sliding-scale Accu-Cheks
#Primary hypertension
Continue carvedilol
Volume overload with dialysis should help
#Chronic HFpEF
Volume removal via HD
Secondary/tertiary hyperparathyroidism
Continue with Phos binders
Anxiety/depression
Continue sertraline high-dose
ADD
Hold methylphenidate for now
DVT prophylaxis eliquis
Anticipated Discharge: > 48 hours
Subjective/Interval History
-
Date of Service: February 22, 2024
bleeding from midline site
BP low
converted to NSR
Having bm
no abd discomfort
Objective Data
-
Vital Signs:
Vital Signs
Temp Pulse Resp BP Pulse Ox
98.6 F 64 14 83/32 98
02/22/24 07:35 02/22/24 06:00 02/22/24 06:00 02/22/24 08:53 02/22/24 08:00
I&O
02/21/24 02/22/24 02/23/24
06:59 06:59 06:59
Intake Total 841 / 841 240 / 240 300 / 300
Balance 841 / 841 240 / 240 300 / 300
Physical Exam
-
General: Well Developed and No Apparent Distress
HEENT: Normocephalic, Atraumatic and Moist Mucous Membranes
Respiratory: Clear to Auscultation
Cardiac: S1/S2, Irregular Rhythm and Tachycardic; Negative Murmur, Rub or Gallop
GI: Soft, Nontender, Nondistended and Normal Bowel Sounds; Negative Organomegaly
Rectal: Deferred by Provider
Musculoskeletal: No Clubbing, No Cyanosis, No Edema and Other (RUE midline site lary wrapped )
Skin: Negative Rash
Neuro: Awake, Alert, Oriented, AO x 3, No Motor Deficits and Nonfocal/Grossly Intact
Psych: Calm
Data Reviewed
-
Total Time Spent with Patient (in minutes): 60
[2024-02-22] MEDS: ATIVAN 1 MG PO ×3 (11:36→23:15)
[2024-02-22 12:35] LABS: Hematocrit 21.5 % (39.0-52.0); Hemoglobin 7.4 g/dL (13.0-18.0)
[2024-02-22 12:39] LABS: INR 1.24; PT 15.4 Sec (11.4-14.6)
[2024-02-22 12:40] LABS: APTT 38.1 Sec (23.4-35.0)
[2024-02-22 13:33] LABS: Glucose - Point of Care 131 mg/dl (70-99)
[2024-02-22] MEDS: NOVOLOG FLEXPEN-LOW RESISTANCE 1 UNITS SC (17:41)
[2024-02-22] MEDS: ROCEPHIN 2000 MG IV (17:43)
[2024-02-22] MEDS: STERILE WATER FOR INJECTION 20 ML IV (17:44)
[2024-02-22 17:48] LABS: Glucose - Point of Care 169 mg/dl (70-99)
--- NOTE | 2024-02-22 18:29 | PTCARENOTE ---
Midline dressing changed x 2 by IV team this shift r/t active bleeding from Midline site. Dressing has remained CDI since noon. Pressure dressing remains in place, neurovascular checks wnl. Will continue to monitor through shift and pass on to
oncoming RN.
[2024-02-22] MEDS: COREG 25 MG PO (21:48)
[2024-02-22] MEDS: LIPITOR 80 MG PO (21:48)
[2024-02-22 22:59] LABS: Glucose - Point of Care 148 mg/dl (70-99)
[2024-02-22] MEDS: MELATONIN 5 MG PO (23:15)
[2024-02-23] VITALS (12 sets, daily range): BP systolic 112–155; BP diastolic 46–97; BMI 29.4
[2024-02-23] MEDS: NORCO 5/325 1 TABLET PO ×4 (02:24→22:41)
[2024-02-23 04:07] LABS: Hemoglobin 7.1 g/dL (13.0-18.0)
[2024-02-23 04:23] LABS: Vancomycin Random 10.3 ug/ml
--- NOTE | 2024-02-23 05:42 | PTCARENOTE ---
NO acute events overnight. Right upper extremity midline dressing CDI- no more bleeding.
--- NOTE | 2024-02-23 07:42 | PHA.VAN.FU ---
Vancomycin Assessment / Plan
- Assessment
Hemodialysis Schedule: MWF
In the past 24 hrs, patient has been: Afebrile
Concomitant Antimicrobials: Ceftriaxone
- Assessment - Therapeutic Drug Monitoring
Random Level: R = 10.3. Last Vanc dose was 750mg 02/20 at 1440
- Dosing Plan
Continue: Dose by level
Dosing by Level: Re-dose today (Vanc 750mg)
- Monitoring Plan
Random Level: 4 AM
- Follow Up
Pharmacy will continue to follow.
Vancomycin Follow UP
- -
Patient Age: 68
Patient Sex: Male
Vancomycin Day #: 5
Indication: Other
Requesting Provider: Dr. Guevara
Pertinent Antimicrobial Allergies:
no pertinent antibiotic allergies
Height / Weight:
Height 5 ft 7 in
Actual Weight 85.2 kg
Pertinent Past Medical History: ESRD on HD MWF, DM
- Vital Signs / Lab Results
Temp Pulse Resp BP Pulse Ox
98.8 F 69 17 155/46 98
02/23/24 03:03 02/23/24 04:00 02/23/24 04:00 02/23/24 04:00 02/22/24 22:56
Lab Results - Hematology
02/20/24 02/21/24
07:42 04:27
WBC 12.6 H 9.7
Lab Results - Chemistry
02/20/24
07:42
BUN 48 H
Creatinine 6.1 H*
Estimated Creat Clear 11
Microbiology Results
02/21/24 05:27 Blood Culture - Preliminary
Blood/Venous No Growth in 48 hours- Final report to follow
02/21/24 04:27 Blood Culture - Preliminary
Blood/Venous No Growth in 48 hours- Final report to follow
02/22/24 03:36 Blood Culture - Preliminary
Blood/Venous No Growth in 24 hours- Final report to follow
02/19/24 11:16 Blood Culture - Preliminary
Blood/Venous Positive culture in progress
Gram Stain - Preliminary
02/19/24 09:53 Blood Culture - Preliminary
Blood/Venous Positive culture in progress
Gram Stain - Preliminary
Therapeutic Drug Monitoring
Random Vancomycin 10.3 ug/ml 02/23/24 03:18
[2024-02-23 08:12] LABS: Glucose - Point of Care 97 mg/dl (70-99)
[2024-02-23] MEDS: ZOLOFT 200 MG PO (08:41)
[2024-02-23] MEDS: ELIQUIS 5 MG PO ×2 (08:41→21:25)
[2024-02-23] MEDS: NOVOLOG FLEXPEN-LOW RESISTANCE SC ×2 (08:41→12:44)
[2024-02-23] MEDS: COREG 25 MG PO ×2 (08:42→21:25)
[2024-02-23] MEDS: ZETIA 10 MG PO (08:43)
[2024-02-23] MEDS: MIRALAX PO ×2 (08:43→08:49)
[2024-02-23] MEDS: PHOSLO 667 MG PO ×3 (08:43→17:05)
[2024-02-23] MEDS: SENOKOT-S PO ×2 (08:43→08:49)
[2024-02-23] MEDS: PLAVIX 75 MG PO (08:43)
[2024-02-23] MEDS: RITALIN 30 MG PO (08:43)
[2024-02-23] MEDS: PACERONE 400 MG PO ×3 (08:43→21:27)
[2024-02-23] MEDS: ProAmatine PO ×3 (08:44→17:06)
[2024-02-23] MEDS: VANCOCIN 150 IV (08:45)
--- NOTE | 2024-02-23 08:48 | W.PN.ID1 ---
Date of Service
Date of Service: February 23, 2024
Today's Communication
Continue antibiotics.
Assessment / Plan
# GPC in chains bacteremia.
- Isolate sent to reference laboratory for identification and susceptibilities.
- Repeat blood cultures negative
# s/p Sepsis: fever, leukocytosis due to bacteremia
# ESRD on HD via tunneled catheter
# DM
- fever resolved
- Await identification of organism
- TTE without visualized vegetation.
- Follow Repeat blood cx's
- Continue ceftriaxone & Vancomycin.
#Additional Past Medical History:
DM2
ESRD on HD via HD catheter
LUE AVG placement 08/2023
CAD s/p CABG s/p stent
Chronic HFpEF
Paroxysmal atrial tachycardia
Anxiety/Depression/ADHD
PAD s/p Left fem-pop bypass
HTN
HLD
Anemia of chronic disease
BPH
RBBB
TIA
FINESSE on CPAP
COPD
lumbar laminectomy/fusion
Multiple foot surgeries
Bilateral ISELA
Chief Complaint
-: Bacteremia
Vital Signs / Physical Exam
Vital Signs
Vital Signs
Temp Pulse Resp BP Pulse Ox
98.8 F 69 17 145/69 98
02/23/24 03:03 02/23/24 08:44 02/23/24 04:00 02/23/24 08:44 02/22/24 22:56
Physical Exam
Constitutional: No Acute Distress, Comfortable, Chronically Ill and Non-toxic
Eyes: No Conjunctival Hemorrhage
Cardiovascular: S1/S2; Negative S3/S4
Pulmonary: Non Labored
Neurological: Awake and Alert
Psychological: Calm
Lines: HD Cath
Objective Data
Lab Data
Lab Results
03/31/24 03:18
02/21/24 13:11
PT 15.4 Sec (11.4-14.6) H 02/22/24 12:16
INR 1.24 02/22/24 12:16
APTT 38.1 Sec (23.4-35.0) H 02/22/24 12:16
Estimated Creat Clear 11 ml/min 02/20/24 07:42
Lactic Acid Cancelled 02/19/24 13:30
Total Bilirubin 0.7 mg/dl (0.2-1.3) 02/19/24 09:53
AST 28 U/L (17-59) 02/19/24 09:53
ALT 21 U/L (0-50) 02/19/24 09:53
Alkaline Phosphatase 83 U/L (38-126) 02/19/24 09:53
Most recent labs reviewed.
Micro Results:
02/21/24 05:27 Blood Culture - Preliminary
Blood/Venous No Growth in 48 hours- Final report to follow
02/21/24 04:27 Blood Culture - Preliminary
Blood/Venous No Growth in 48 hours- Final report to follow
02/22/24 03:36 Blood Culture - Preliminary
Blood/Venous No Growth in 24 hours- Final report to follow
02/19/24 11:16 Blood Culture - Preliminary
Blood/Venous Positive culture in progress
Gram Stain - Preliminary
02/19/24 09:53 Blood Culture - Preliminary
Blood/Venous Positive culture in progress
Gram Stain - Preliminary
02/19/24 12:40 MRSA Screen - Final
Nose No Methicillin Resistant Staphylococcus aureus isolated.
02/19/24 09:32 Influenza Types A & B (JAZZMINE) - Final
Nasal Swab Negative for Influenza A & B, NAAT
Negative results must be combined with clinical observations
and patient history.
Nucleic Acid Amplification test (NAAT)performed on the
[employer] platform.
02/18/2024 HD access duplex US: AV graft is patent, average flow volume 1207 mL/min. Mild elevation of peak systolic velocity at the arterial anastomosis, velocity ratio 2.6. Soft tissue hematoma seen on prior ultrasound is no longer seen.
02/19/2024 CXR: no infiltrates
02/19/2024 AXR: Moderate gaseous distention of the stomach. Moderate amount of stool within the colon, mainly in the right colon and transverse colon.
--- NOTE | 2024-02-23 09:38 | W.PN.CARDCBS ---
Today's Communication / Plan
-
Hemoglobin down to 7.1. No clear signs of bleeding.
He remains in sinus rhythm. Continue amiodarone load. Decreased to 200 mg p.o. twice daily in a.m. continue Coreg.
Okay to continue Eliquis and Plavix for now. If hemoglobin drops further may need to stop Eliquis
Continue antibiotics for bacteremia.
Transthoracic echo with no clear evidence of endovascular infection
Impression / Plan
-
PCP: Dr. Tabor
Cardiology: Dr. Serra
Nephrology: Dr. Anderson
Heme/Onc: Dr. Guzman
Impression:
Presented with fever, N/V
Leukocytosis
Positive blood cultures form 02/19/24
Metabolic encephalopathy
Elevated troponin, suspect nonischemic myocardial injury
Paroxysmal atrial tachycardia
Atypical atrial flutter
CAD
s/p LAD PCI 2005
s/p CABG with GARCIA to LAD, SVG to PDA and SVG to OM 07/05/10
NSTEMI, trop 0.51 during August 2023 admission
s/p 4.0 x 15 mm Xience stent at the ostium of the vein graft 10/24/2023
PAD
s/p left femoral endarterectomy with left femoral-above the knee SFA bypass 04/10/2019
ESRD on HD MWF
Sinus bradycardia with Mobitz 1
DM 2
CML
HTN
Hyperlipidemia
Anemia of chronic disease
BPH
Former smoker
Lexiscan nuclear stress test 04/07/19: fixed inferior, anteroseptal and apical defects, no ischemic, EF 42%
Lexiscan nuclear stress test 10/22/2023: Partially reversible inferolateral, inferior, and apical defect consistent with infarction with ischemia.� Ejection fraction 43% with global hypokinesis.
Echo 07/16/2022: EF 60-65% by Kendall's, but closer to 50% visually, mild MR, no /AI, trace TR with mod PHTN with PAP 45-50 mmHg
Echo 09/21/2023: LVEF 65 to 70% with moderate concentric LVH.� No significant valvular disease.
Echo 02/21/2024: EF 55%, normal regional wall motion, mild conc LVH, normal RV size and function, mild MR, no aortic regurgitation
Plan:
-Hemoglobin down to 7.1. He did have some mild bleeding after placement of his PICC line, but no clear overt GI bleeding. For now we will continue the Eliquis and Plavix. If his hemoglobin continues to drop we may need to stop the Eliquis.
-Troponin peaked at 0.204. Will manage as a nonischemic myocardial injury Troponin elevation due to atrial arrhythmia
-Atypical atrial flutter noted on EKG and telemetry. HR controlled improved on usual dose of Coreg 25 mg BID and newly started amiodarone 400 mg TID from this admission. Continue amiodarone 400 mg p.o. 3 times daily today and then should decrease
dose to 200 mg p.o. twice daily 02/23.
-Aspirin stopped and will be maintained on Plavix and Eliquis given recent PCI 09/2023.
-Midodrine 10 mg TID started this admission for hypotension
-Afebrile for the last 48 hours. Blood cultures positive for growth on 02/19/24, but then no growth on repeat cultures 02/21/24. Continue antibiotics per ID.
-Continue HD MWF. Hyperkalemia on admission has improved with HD sessions as an inpatient.
HPI: Paramjit is a 68 year old male with PMH of CAD w/ recent PCI of vein graft, PAD, ESRD on HD, atrial tachycardia, DM2, CML, HTN, HLD, anemia, and BPH who presented to [facility] for evaluation after he started with nausea, vomiting, and fever after recent
dental procedure. He had elevated temp of 103.0F on arrival with WBC of 14.4. Covid and flu testing negative. UA without evidence of UTI and chest xray without evidence of pneumonia. He was started on abx for concern of possible dialysis line
infection and reports he has had no vomiting or diarrhea overnight. He did have some chest 'flopping' and palpitations 02/18, EKG revealed atrial tachycardia with HRs up into the 130s. Troponin checked and was mildly elevated at 0.127, trending up to
0.204 and trending down thereafter. He reports ongoing flopping/fluttering sensation in his chest that is unchanged. Cardiology consulted for evaluation given atrial tachycardia with elevated HRs and elevated troponin.
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
Subjective
Date of Service: February 23, 2024
He is feeling well. He denies any significant bleeding. No further palpitations and chest pains have resolved.
Objective
Labs:
02/23/24 03:18
02/21/24 13:11
Labs
Hgb 7.1 g/dL (13.0-18.0) L 02/23/24 03:18
Hct 21.0 % (39.0-52.0) L 02/23/24 03:18
Plt Count 263 10^3/uL (130-400) 02/21/24 04:27
PT 15.4 Sec (11.4-14.6) H 02/22/24 12:16
INR 1.24 02/22/24 12:16
APTT 38.1 Sec (23.4-35.0) H 02/22/24 12:16
Sodium 134 mmol/L (135-145) L 02/21/24 13:11
Potassium 3.8 mmol/L (3.5-5.1) 02/21/24 13:11
BUN 48 mg/dl (9-20) H 02/20/24 07:42
Creatinine 6.1 mg/dL (0.7-1.3) H* 02/20/24 07:42
Glucose 141 mg/dl (70-99) H 02/20/24 07:42
Vital Signs and I&O:
Vital Signs
Temp Pulse Resp BP Pulse Ox
98.2 F 69 17 145/69 98
02/23/24 07:35 02/23/24 08:44 02/23/24 04:00 02/23/24 08:44 02/22/24 22:56
Vital Signs
Temp Pulse Resp BP Pulse Ox
98.2 F 69 17 145/69 98
02/23/24 07:35 02/23/24 08:44 02/23/24 04:00 02/23/24 08:44 02/22/24 22:56
Intake & Output
02/21/24 02/22/24 02/23/24 02/24/24
06:59 06:59 06:59 06:59
Intake Total 841 / 841 240 / 240 780 / 780
Balance 841 / 841 240 / 240 780 / 780
Physical Exam
Physical Exam
GEN: No distress, awake, Ox3
HEENT: supple, anicteric, mmm
LUNGS: CTA, no wheezes/rales
CV: Reg, S1/S2, 1/6 syst LSB, no gallop
ABD: soft, BS+, NT/ND
EXT: L arm dressing intact
NEURO: Gross non-focal
SKIN: No rash
--- NOTE | 2024-02-23 09:40 | W.PN.NEPH.PH ---
Today's Communication / Plan
-
HD tomorrow
Assessment/Plan
-
Impression:
Fevers/nausea /vomiting/Leukocytosis
Constipation
End-stage renal disease Saturday
Hyperkalemia
Profound peripheral vascular disease
Anemia of chronic kidney disease
Coronary artery disease with prior history of CABG
History of CML
Hyperphosphatemia
A-fib with rapid ventricular response
Plan:
HD saturday
GITA for anemia
Appropriate fluid restrictions and dietary modification
Maintain calcium acetate with meals re: hyperphosphatemia
Will provide dialysis on low K bath for hyperkalemia
abx per ID
has OP vascular appt saturday
on high dose midodrine
can transfuse on HD tomorrow if needed
will ask vascular if they can see him tomorrow-has upcoming appt
-
-
Date of Service: February 23, 2024
CC / HPI / ROS
-
Chief Complaint:
End-stage renal disease
History of Present Illness:
End-stage renal disease on Saturday schedule
Hemodynamically stable
tolerated HD saturday
BP low, on midodrine
Hgb low 7.1
Review of Systems:
No chest pain or shortness of breath at this time
Labs
-
Labs:
WBC 9.7 10^3/uL (4.8-10.8) 02/21/24 04:27
RBC 2.55 10^6/uL (4.70-6.10) L 02/21/24 04:27
Hgb 7.1 g/dL (13.0-18.0) L 02/23/24 03:18
Hct 21.0 % (39.0-52.0) L 02/23/24 03:18
Plt Count 263 10^3/uL (130-400) 02/21/24 04:27
Sodium 134 mmol/L (135-145) L 02/21/24 13:11
Potassium 3.8 mmol/L (3.5-5.1) 02/21/24 13:11
Chloride 96 mmol/L (98-107) L 02/21/24 13:11
Carbon Dioxide 30 mmol/L (22-30) 02/21/24 13:11
BUN 48 mg/dl (9-20) H 02/20/24 07:42
Creatinine 6.1 mg/dL (0.7-1.3) H* 02/20/24 07:42
eGFR 9.42 02/20/24 07:42
Glucose 141 mg/dl (70-99) H 02/20/24 07:42
Calcium 9.3 mg/dl (8.4-10.2) 02/20/24 07:42
Albumin 5.0 g/dl (3.5-5.0) 02/19/24 09:53
Physical Exam
-
Vital Signs:
Vital Signs
Temp Pulse Resp BP Pulse Ox
98.2 F 69 17 145/69 98
02/23/24 07:35 02/23/24 08:44 02/23/24 04:00 02/23/24 08:44 02/22/24 22:56
Cardiovascular:: Regular rate and rhythm
Respiratory:: Bilateral: Coarse
Lung Excursion:: Normal
Abdomen:: Nontender and Soft
Bowel Sounds:: Normal
Extremity Edema:: None: Bilateral:
--- NOTE | 2024-02-23 12:23 | W.PN.HOSP.TC ---
Addendum entered and electronically signed by Ac Guevara MD 02/23/24 13:42:
Discussed with pharmacy severe interaction between tizanidine and amiodarone with concern for hypotension, bradycardia. Highly recommended against it. Will not restart tizanidine which has been on hold since admission.
Addendum entered and electronically signed by Ac Guevara MD 02/23/24 13:16:
Abnormal lab value insignificant
Original Note:
Today's Communication/Plan
-
Blood consent in chart
Trend H&H
Type and screen in the morning
Eliquis restarted
Monitor blood pressure
Assessment / Plan
Assessment / Plan
#Hyperkalemia
#ESRD on hemodialysis Saturday
s/p emergent HD on admission
K normalized.
HD today
# Sepsis -poa
#Fever likely secondary to gram-positive bacteremia
Hemodynamically stable
Blood cultures positive and unknown and Bcx sent out for identification
Surveillance cultures ordered
Echocardiogram noted.
Pro-Manjit elevated however not accurate in the setting of renal failure
vancomycin started and ceftriaxone added by infectious disease
ID consulted
#Nausea and vomiting likely 2/2 severe constipation
Lactic acid normal and BP stable.
started on aggressive bowel regimen
s/p resolution
received Enema on 02/20 with good results.
diet advanced
#Mild metabolic encephalopathy likely 2/2 uremia vs. medication (ativan/narcotics)
Monitor mentation closely with dialysis
Mentation improved and AOX3
#Chest discomfort likely secondary to musculoskeletal versus topical status post vomiting rule out ACS
#CAD status post CABG status post stents
#Hx of RBBB
#Elevted troponin likely Non Ishemic myocardial injury
Continue with Plavix statin and beta-keny
Aspirin discontinued in the setting of Eliquis
trop downtrended
hep gtt Dced
cards recs
#Paroxysmal atrial tachycardia vs. atypical flutter
remains tachy
off cardizem 120mg due to hypotension
cont coreg 25mg bid
Started on amiodarone loading dose 400mg TID with plan to reduce in am
Started on Eliquis. Now in NSR.
# hypotension likely secondary to tachycardia atrial
Status post pressors
Midodrine for now 5mg increased to 10mg TID
BP improved with conversion to NSR.
# Anemia of chronic disease
# Mild acute blood loss anemia from the midline site
-Eliquis restarted. Hemoglobin 7.1.
-Ordered type and screen for morning. consented for blood transfusion and form placed in chart.
#PAD status post stent and bypass
Continue Plavix and statin
Aspirin discontinued in the setting of Eliquis
#Diabetes mellitus type 2
Hold p.o. meds
Sliding-scale Accu-Cheks
#Primary hypertension
Continue carvedilol
Volume overload with dialysis should help
#Chronic HFpEF
Volume removal via HD
Secondary/tertiary hyperparathyroidism
Continue with Phos binders
Anxiety/depression
Continue sertraline high-dose
Chronic back pain
Chronic opiate dependent
Continue with pain meds
Tizanidine interaction with amiodarone. Held for now. Will discuss with pharmacy.
ADD
Cont methylphenidate
DVT prophylaxis eliquis
Anticipated Discharge: > 48 hours
Subjective/Interval History
-
Date of Service: February 23, 2024
Bleeding from the midline site stop
Objective Data
-
Labs:
Laboratory Results
02/23/24
03:18
Hgb 7.1 L
Hct 21.0 L
Vital Signs:
Vital Signs
Temp Pulse Resp BP Pulse Ox
98.2 F 70 13 142/56 91
02/23/24 07:35 02/23/24 10:00 02/23/24 10:00 02/23/24 10:00 02/23/24 10:00
I&O
02/22/24 02/23/24 02/24/24
06:59 06:59 06:59
Intake Total 240 / 240 780 / 780
Balance 240 / 240 780 / 780
Physical Exam
-
General: Well Developed and No Apparent Distress
HEENT: Normocephalic, Atraumatic and Moist Mucous Membranes
Respiratory: Clear to Auscultation
Cardiac: S1/S2, Irregular Rhythm and Tachycardic; Negative Murmur, Rub or Gallop
GI: Soft, Nontender, Nondistended and Normal Bowel Sounds; Negative Organomegaly
Rectal: Deferred by Provider
Musculoskeletal: No Clubbing, No Cyanosis, No Edema and Other (RUE midline site pressure dressing. Palpable radial pulse. No edema or pain.)
Skin: Negative Rash
Neuro: Awake, Alert, Oriented, AO x 3, No Motor Deficits and Nonfocal/Grossly Intact
Psych: Calm
Data Reviewed
-
Total Time Spent with Patient (in minutes): 55
[2024-02-23 12:40] LABS: Glucose - Point of Care 108 mg/dl (70-99)
[2024-02-23 16:40] LABS: Glucose - Point of Care 177 mg/dl (70-99)
[2024-02-23] MEDS: NOVOLOG FLEXPEN-LOW RESISTANCE 1 UNITS SC (17:04)
[2024-02-23] MEDS: ROCEPHIN 2000 MG IV (17:05)
[2024-02-23] MEDS: STERILE WATER FOR INJECTION 20 ML IV (17:05)
[2024-02-23] MEDS: ATIVAN 1 MG PO ×2 (18:41→22:40)
[2024-02-23] MEDS: MELATONIN 5 MG PO (21:26)
[2024-02-23] MEDS: LIPITOR 80 MG PO (21:26)
[2024-02-23] MEDS: SENOKOT-S 1 TABLET PO (21:26)
[2024-02-23] MEDS: NON-FORMULARY ITEM 0.25 MG SC (21:53)
[2024-02-23 22:09] LABS: Glucose - Point of Care 129 mg/dl (70-99)
[2024-02-24] VITALS (36 sets, daily range): BP systolic 48–176; BP diastolic 34–79; PULSE 64; BMI 29.5
[2024-02-24 05:29] LABS: Hematocrit 21.3 % (39.0-52.0); Hemoglobin 7.3 g/dL (13.0-18.0)
[2024-02-24 05:51] LABS: Vancomycin Random 16.3 ug/ml
[2024-02-24 05:55] LABS: Carbon Dioxide 33 mmol/L (22-30); Chloride 86 mmol/L (98-107); Sodium 131 mmol/L (135-145)
[2024-02-24] MEDS: ProAmatine 10 MG PO ×2 (07:08→14:26)
[2024-02-24 07:23] LABS: Glucose - Point of Care 102 mg/dl (70-99)
[2024-02-24] MEDS: RETACRIT 10000 UNITS IV (08:08)
[2024-02-24] MEDS: NOVOLOG FLEXPEN-LOW RESISTANCE SC ×3 (09:16→17:10)
[2024-02-24] MEDS: PLAVIX 75 MG PO (09:17)
[2024-02-24] MEDS: PACERONE 400 MG PO ×3 (09:17→21:57)
[2024-02-24] MEDS: ELIQUIS 5 MG PO ×2 (09:18→21:58)
--- NOTE | 2024-02-24 10:06 | W.PN.ID1 ---
Date of Service
Date of Service: February 24, 2024
Today's Communication
Transition to cefazolin 2g IV qMo,We and 3g IV qFri with dialysis through 03/18/24
Script for dialysis submitted to outpatient case manager.
Assessment / Plan
# GPC in chains bacteremia.
- Isolate sent to reference laboratory for identification and susceptibilities.
- Repeat blood cultures negative
# s/p Sepsis: fever, leukocytosis due to bacteremia
# ESRD on HD via tunneled catheter
# DM
- fever resolved
- TTE without visualized vegetation.
-DC ceftriaxone, Vancomycin (d5)
-Transition to cefazolin 2g IV qMo,We and 3g IV qFri with dialysis through 03/18/24
Script for dialysis submitted to outpatient case manager.
#Additional Past Medical History:
DM2
ESRD on HD via HD catheter
LUE AVG placement 08/2023
CAD s/p CABG s/p stent
Chronic HFpEF
Paroxysmal atrial tachycardia
Anxiety/Depression/ADHD
PAD s/p Left fem-pop bypass
HTN
HLD
Anemia of chronic disease
BPH
RBBB
TIA
FINESSE on CPAP
COPD
lumbar laminectomy/fusion
Multiple foot surgeries
Bilateral ISELA
Chief Complaint
-: Bacteremia
Subjective / Review of Systems
Feels well.
Vital Signs / Physical Exam
Vital Signs
Vital Signs
Temp Pulse Resp BP Pulse Ox
97.8 F 64 11 129/45 100
02/24/24 07:55 02/24/24 06:00 02/24/24 06:00 02/24/24 06:00 02/24/24 06:00
Physical Exam
Constitutional: No Acute Distress and Comfortable
Cardiovascular: Regular Rate and S1/S2
Pulmonary: Clear
Gastrointestinal: Soft, Non Tender, Non Distended and Normal Bowel Sounds
Extremities: Negative Edema
Neurological: AO x 3
Lines: HD Cath (no erythema)
Objective Data
Lab Data
Lab Results
02/24/24 05:03
02/24/24 05:03
PT 15.4 Sec (11.4-14.6) H 02/22/24 12:16
INR 1.24 02/22/24 12:16
APTT 38.1 Sec (23.4-35.0) H 02/22/24 12:16
Estimated Creat Clear 11 ml/min 02/20/24 07:42
Lactic Acid Cancelled 02/19/24 13:30
Total Bilirubin 0.7 mg/dl (0.2-1.3) 02/19/24 09:53
AST 28 U/L (17-59) 02/19/24 09:53
ALT 21 U/L (0-50) 02/19/24 09:53
Alkaline Phosphatase 83 U/L (38-126) 02/19/24 09:53
Most recent labs reviewed.
Micro Results:
02/21/24 05:27 Blood Culture - Preliminary
Blood/Venous No Growth in 72 hours- Final report to follow
02/21/24 04:27 Blood Culture - Preliminary
Blood/Venous No Growth in 72 hours- Final report to follow
02/22/24 03:36 Blood Culture - Preliminary
Blood/Venous No Growth in 48 hours- Final report to follow
02/19/24 11:16 Blood Culture - Preliminary
Blood/Venous Positive culture in progress
Gram Stain - Preliminary
02/19/24 09:53 Blood Culture - Preliminary
Blood/Venous Positive culture in progress
Gram Stain - Preliminary
02/19/24 12:40 MRSA Screen - Final
Nose No Methicillin Resistant Staphylococcus aureus isolated.
02/19/24 09:32 Influenza Types A & B (JAZZMINE) - Final
Nasal Swab Negative for Influenza A & B, NAAT
Negative results must be combined with clinical observations
and patient history.
Nucleic Acid Amplification test (NAAT)performed on the
[employer] platform.
02/18/2024 HD access duplex US: AV graft is patent, average flow volume 1207 mL/min. Mild elevation of peak systolic velocity at the arterial anastomosis, velocity ratio 2.6. Soft tissue hematoma seen on prior ultrasound is no longer seen.
02/19/2024 CXR: no infiltrates
02/19/2024 AXR: Moderate gaseous distention of the stomach. Moderate amount of stool within the colon, mainly in the right colon and transverse colon.
Care Review
Plan reviewed with: Physician (Dr. Scott Bravo)
--- NOTE | 2024-02-24 10:51 | W.PN.CARDCBS ---
Today's Communication / Plan
-
Transfer to telemetry
Monitor hemoglobin
No medication changes
We will arrange for cardiac follow-up
Impression / Plan
-
PCP: Dr. Tabor
Cardiology: Dr. Serra
Nephrology: Dr. Anderson
Heme/Onc: Dr. Guzman
Impression:
Presented with fever, N/V
Leukocytosis
Positive blood cultures form 02/19/24
Metabolic encephalopathy
Elevated troponin, suspect nonischemic myocardial injury
Paroxysmal atrial tachycardia
Atypical atrial flutter
CAD
s/p LAD PCI 2005
s/p CABG with GARCIA to LAD, SVG to PDA and SVG to OM 07/05/10
NSTEMI, trop 0.51 during August 2023 admission
s/p 4.0 x 15 mm Xience stent at the ostium of the vein graft 10/24/2023
PAD
s/p left femoral endarterectomy with left femoral-above the knee SFA bypass 04/10/2019
ESRD on HD MWF
Sinus bradycardia with Mobitz 1
DM 2
CML
HTN
Hyperlipidemia
Anemia of chronic disease
BPH
Former smoker
Lexiscan nuclear stress test 04/07/19: fixed inferior, anteroseptal and apical defects, no ischemic, EF 42%
Lexiscan nuclear stress test 10/22/2023: Partially reversible inferolateral, inferior, and apical defect consistent with infarction with ischemia.� Ejection fraction 43% with global hypokinesis.
Echo 07/16/2022: EF 60-65% by Kendall's, but closer to 50% visually, mild MR, no /AI, trace TR with mod PHTN with PAP 45-50 mmHg
Echo 09/21/2023: LVEF 65 to 70% with moderate concentric LVH.� No significant valvular disease.
Echo 02/21/2024: EF 55%, normal regional wall motion, mild conc LVH, normal RV size and function, mild MR, no aortic regurgitation
Plan:
Overall he seems stable from a cardiac rhythm standpoint. He is on amiodarone and Eliquis. He has had no recurrences of his atrial arrhythmia.
Major issue now is hemoglobin is still low at 7.3 on Eliquis and Plavix. Continue to monitor. We may need to de-escalate his antiplatelet/anticoagulant regimen. He is approaching 6 months out from his PCI. He is in sinus rhythm on amiodarone
making left atrial appendage 3 thrombus less likely. If we need to de-escalate, could consider transition back to aspirin and Plavix with plan to monitor for atrial fibrillation. Alternatively, Plavix alone might successfully reduce risk of stent
thrombosis even without aspirin at lower bleeding risk.
Blood pressure is acceptable on midodrine.
Defer management of gram-positive bacteremia to ID. Outpatient cefazolin at the time of dialysis is apparently planned. No evidence of endocarditis.
No objections to transfer to telemetry from IMU.
We will arrange for cardiac follow-up.
HPI: Paramjit is a 68 year old male with PMH of CAD w/ recent PCI of vein graft, PAD, ESRD on HD, atrial tachycardia, DM2, CML, HTN, HLD, anemia, and BPH who presented to [facility] for evaluation after he started with nausea, vomiting, and fever after recent
dental procedure. He had elevated temp of 103.0F on arrival with WBC of 14.4. Covid and flu testing negative. UA without evidence of UTI and chest xray without evidence of pneumonia. He was started on abx for concern of possible dialysis line
infection and reports he has had no vomiting or diarrhea overnight. He did have some chest 'flopping' and palpitations 02/18, EKG revealed atrial tachycardia with HRs up into the 130s. Troponin checked and was mildly elevated at 0.127, trending up to
0.204 and trending down thereafter. He reports ongoing flopping/fluttering sensation in his chest that is unchanged. Cardiology consulted for evaluation given atrial tachycardia with elevated HRs and elevated troponin.
Progress Note - Test Carrier
Subjective
Date of Service: February 24, 2024:
He offers no complaints, currently finishing up dialysis
allergies: Latex and morphine
Outpatient medications: Aspirin, atorvastatin, carvedilol 25 mg twice daily, Zyrtec, clopidogrel 75 mg a day, ezetimibe 10 mg a day, hydrocortisone, acetaminophen, lorazepam, Ozempic, sertraline, tizanidinePatient medications: Atorvastatin 80 mg
today, carvedilol 25 mg twice daily, Plavix 75 mg a day, ezetimibe 10 mg daily, Ritalin, sertraline, insulin, apixaban 5 twice daily, amiodarone 400 3 times daily, midodrine 10 3 times daily, semaglutide, cefazolin
PMH/SH/FH/PSH: Reviewed
Review of systems negative except as above
Hemoglobin 7.3, sodium 131, potassium 5, bicarbonate 33
Telemetry no atrial tachycardia/fibrillation/flutter on amiodarone
Objective
Labs:
02/24/24 05:03
02/24/24 05:03
Labs
Hgb 7.3 g/dL (13.0-18.0) L 02/24/24 05:03
Hct 21.3 % (39.0-52.0) L 02/24/24 05:03
Plt Count 263 10^3/uL (130-400) 02/21/24 04:27
PT 15.4 Sec (11.4-14.6) H 02/22/24 12:16
INR 1.24 02/22/24 12:16
APTT 38.1 Sec (23.4-35.0) H 02/22/24 12:16
Sodium 131 mmol/L (135-145) L 02/24/24 05:03
Potassium 5.0 mmol/L (3.5-5.1) D 02/24/24 05:03
BUN 48 mg/dl (9-20) H 02/20/24 07:42
Creatinine 6.1 mg/dL (0.7-1.3) H* 02/20/24 07:42
Glucose 141 mg/dl (70-99) H 02/20/24 07:42
Vital Signs and I&O:
Vital Signs
Temp Pulse Resp BP Pulse Ox
36.6 C 64 11 129/45 100
02/24/24 07:55 02/24/24 06:00 02/24/24 06:00 02/24/24 06:00 02/24/24 06:00
Vital Signs
Temp Pulse Resp BP Pulse Ox
36.6 C 64 11 129/45 100
02/24/24 07:55 02/24/24 06:00 02/24/24 06:00 02/24/24 06:00 02/24/24 06:00
Intake & Output
02/22/24 02/23/24 02/24/24 02/25/24
07:59 07:59 07:59 07:59
Intake Total 240 / 240 780 / 780 240 / 240
Output Total 50 / 50
Balance 240 / 240 780 / 780 190 / 190
Physical Exam
Physical Exam
No distress, finishing dialysis
129/45, pulse 64, respiratory 11, afebrile
Head neck exam unremarkable
Lungs are clear
Cardiac regular rate and rhythm, no obvious murmurs
Abdomen benign
Extremities without edema
Neuro nonfocal
[2024-02-24] MEDS: HEPARIN 4200 UNITS INTRACATH (11:06)
[2024-02-24 11:21] LABS: Glucose - Point of Care 101 mg/dl (70-99)
[2024-02-24] MEDS: ZOLOFT 200 MG PO (11:53)
[2024-02-24] MEDS: RITALIN 30 MG PO (11:54)
[2024-02-24] MEDS: SENOKOT-S PO (11:54)
[2024-02-24] MEDS: MIRALAX PO (11:55)
[2024-02-24] MEDS: COREG 25 MG PO ×2 (11:55→21:58)
[2024-02-24] MEDS: PHOSLO 667 MG PO ×3 (11:55→16:52)
--- NOTE | 2024-02-24 11:55 | W.PN.NEPH.HD ---
Assessment
-
pt seen during HD
vitals stable on midodrine
UF as toelrates
CVC functions well, bld cx neg D2
AVG thrill+ve, has out pt f/u with Dr Atkinson tomorrow-notified vasc
high dose GITA for anemia, prn transfusion
Progress Note - Hemodialysis
-
Date of Service: February 24, 2024
Duration: 30 minutes and 3 hours
Potassium Bath: 2
Calcium Bath: 2.5
Opti-Dialyzer: 160
Ultrafiltration: Other (2.5-3kg)
Blood Flow: 400
Dialysate Flow: 600
Heparin: no
EPO: [id number]
[2024-02-24] MEDS: NORCO 5/325 1 TABLET PO ×3 (12:01→21:55)
[2024-02-24] MEDS: ATIVAN 1 MG PO ×2 (12:01→18:32)
[2024-02-24] MEDS: NEPHROCAP 1 CAPSULE PO (12:01)
[2024-02-24] MEDS: ZETIA 10 MG PO (12:02)
[2024-02-24] MEDS: ProAmatine PO ×2 (12:02→17:10)
--- NOTE | 2024-02-24 13:09 | W.PN.UPDATE ---
Update Note
Progress Note Update
Known to our service status post left upper extremity AV graft. Graft had been infiltrated. Was rested. Fistulogram was performed. No significant stenosis identified. Recommend usage of graft. Patient was due to follow-up in the outpatient
setting following completion of an ultrasound. He was due to follow-up today. However admitted to the hospital as noted (Hospital notes reviewed by me). Therefore and lieu of his outpatient visit we were asked to evaluate. Patient is without any
complaints in terms of his AV graft site. No pain/redness/drainage. Continues to be dialyzed via right IJ tunneled dialysis catheter. On exam/his left upper extremity AV graft has an excellent thrill in it. No fluctuance surrounding. No
erythema. No tenderness.
Duplex that he completed in the outpatient setting dated 02/18/2024 was reviewed. No significant stenosis in the AV graft noted. Flow volumes more than adequate for hemodialysis at 1207 mL/min. Depth is less than 1 cm throughout its course
(approximately 0.5 cm, mid 0.8 cm, distally 0.6 cm).
Plan/ Patent left upper extremity AV graft. Based on assessment of ultrasound as well as physical exam, there is no evidence of significant stenosis and flow volumes are more than adequate for hemodialysis. In addition depth is appropriate.
Therefore, there is not much else I can offer here in terms of making this graft any better for access. If this continues to be a failed AV graft, then the only other option would be to do a new 1 in hopes that this would work better (either in the
same arm or more likely in the other arm). In regards to patient's potential infectious etiology on admission, repeat blood cultures negative. The AV graft site does not appear to be infected. If concern can get ultrasound, but I do not know that
it is needed based on clinical assessment currently.
--- NOTE | 2024-02-24 14:09 | W.PN.HOSP.TC ---
Today's Communication/Plan
-
1 u prbc
abx arrangement at HD center
transfer tele
PT/OT
possible d/c tomorrow
Assessment / Plan
Assessment / Plan
# Sepsis -poa
# GPC bacteremia
Blood cultures at admission cultures growing gram-positive organisms, further identification could not be done and in-house labs and sample needed to be sent to [facility]
Follow-up repeat blood cultures have been negative
Echocardiogram did not show any concern of endocarditis
Pro-Manjit elevated however not accurate in the setting of renal failure
Patient was on vancomycin in hospital, ID recommended patient to be transition to cefazolin 2 g IV Saturday and 3 g Saturday after dialysis till 03/18/24
#ESRD on hemodialysis Saturday
#Hyperkalemia
s/p emergent HD on admission
K normalized
Nephro following and help appreciated
Vascular surgeon evaluated left arm AV fistula, functioning on clinical evaluation and still if not able to be used will require new 1 placed. Currently have right IJ catheter for dialysis
#Nausea and vomiting likely 2/2 severe constipation
Lactic acid normal and BP stable.
started on aggressive bowel regimen
received Enema on 02/20 with good results.
resolved at this point
#Mild metabolic encephalopathy - resolved
reason unclear.
#Chest discomfort likely secondary to musculoskeletal versus topical status post vomiting rule out ACS
#CAD status post CABG status post stents
#Hx of RBBB
#Elevated troponin likely Non Ischemic myocardial injury
Continue with Plavix statin and beta-keny
Aspirin discontinued with use of eliquis
hep gtt Dced
#Paroxysmal atrial tachycardia vs. atypical flutter
Currently on amiodarone loading dose
Could not handle Cardizem with Hypotension
Continue Coreg
# Hypotension likely secondary to atrial tachycardia
Status post pressors
Midodrine for now 5mg increased to 10mg TID
BP improved with conversion to NSR.
# Anemia of chronic disease
# Mild acute blood loss anemia from the midline site
-Eliquis restarted. Hemoglobin 7.3
-Ordered type and screen for morning. Dr Guevara consented for blood transfusion and form placed in chart.
#PAD status post stent and bypass
-Continue Plavix and statin
-Aspirin discontinued in the setting of Eliquis
#Diabetes mellitus type 2
-Hold p.o. meds
-Sliding-scale Accu-Cheks
#Primary hypertension
Continue carvedilol
Volume overload with dialysis should help
#Chronic HFpEF
Volume removal via HD
#Secondary/tertiary hyperparathyroidism
Continue with Phos binders
#Anxiety/depression
Continue sertraline high-dose
#Chronic back pain
Chronic opiate dependent
Continue with pain meds
Tizanidine interaction with amiodarone. Held for now. Will discuss with pharmacy.
#ADD
Cont methylphenidate
DVT prophylaxis eliquis
Anticipated Discharge: Within 24 hours
Subjective/Interval History
-
Date of Service: February 24, 2024
Resting comfortably in bed
No issues overnight
Objective Data
-
Labs:
Laboratory Results
02/24/24
05:03
Hgb 7.3 L
Hct 21.3 L
Sodium 131 L
Potassium 5.0 D
Chloride 86 L
Carbon Dioxide 33 H
Vital Signs:
Vital Signs
Temp Pulse Resp BP Pulse Ox
98.0 F 64 11 129/45 100
02/24/24 11:35 02/24/24 06:00 02/24/24 06:00 02/24/24 06:00 02/24/24 06:00
I&O
02/23/24 02/24/24 02/25/24
06:59 06:59 06:59
Intake Total 780 / 780 240 / 240
Output Total 50 / 50
Balance 780 / 780 190 / 190
Review of Systems
-
Respiratory: Reports No Symptoms
Cardiac: Reports No Symptoms
Abdomen/GI: Reports No Symptoms
Physical Exam
-
General: No Apparent Distress
HEENT: Moist Mucous Membranes
Respiratory: Clear to Auscultation and Other (Right chest dialysis catheter in place)
Cardiac: S1/S2 and Irregular Rhythm; Negative Murmur or Tachycardic
GI: Soft, Nontender, Nondistended and Normal Bowel Sounds
Musculoskeletal: No Edema and Other (RUE midline site pressure dressing. Palpable radial pulse. No edema or pain.)
Skin: Negative Rash
Neuro: Awake, Alert, Oriented, AO x 3, No Motor Deficits and Nonfocal/Grossly Intact
Psych: Calm
--- NOTE | 2024-02-24 14:13 | CON.VAS ---
Consultation
Consultation Request
Date/Time Consultation Performed: 02/24/2024 1300
Requesting Provider: Karin Munoz MD
Performing Provider: Shoshana Osei, MAYELA-C for Fantasma Atkinson MD
Reason for Consultation: Difficulty accessing AV graft, patient scheduled to see us on 02/24
Medical History
-
Chief Complaint: Abdominal nausea, vomiting, fever, and chills
History of Present Illness:
This is a 68-year-old male patient with significant past medical history of diabetes, ESRD on HD, hypertension, PAD, hyperlipidemia, anemia, and BPH who was admitted to [facility] on 02/19/2024 for nausea, vomiting, chills, and generalized
malaise. Workup significant for bacteremia prompting admission. Patient is known to our service status post left upper extremity AV graft. Graft had been infiltrated, was rested, and fistulogram was performed. No significant stenosis identified.
Recommend usage of graft. Patient was due to follow-up in the outpatient setting following completion of an ultrasound, with Dr. Aktinson. He was due to follow-up tomorrow. However admitted to the hospital as noted. Therefore and lieu of his
outpatient visit we were asked to evaluate by nephrology. Patient is without any complaints in terms of his AV graft site. No pain/redness/drainage. Continues to be dialyzed via right IJ tunneled dialysis catheter. Duplex that he completed in
the outpatient setting dated 02/18/2024 was reviewed. No significant stenosis in the AV graft noted. Flow volumes more than adequate for hemodialysis at 1207 mL/min. Depth is less than 1 cm throughout its course (approximately 0.5 cm, mid 0.8 cm,
distally 0.6 cm).
Past Medical History
Past Medical History: Arrhythmias, HTN, NIDDM, Renal Failure (ESRD on HD MWF) and Other (HLD, Anemia of chronic disease, BPH)
Past Surgical History: Cardiac (CABG with GARCIA to LAD, SVG to PDA and SVG to OM 07/05/10, LAD PCI 2005) and Other (left femoral endarterectomy with left femoral-above the knee SFA bypass 04/10/2019)
Social History
Tobacco: Former Smoker
Alcohol: None
Drug: None
Personal:
Living: With Family
Allergies / Home Medications
Allergy/AdvReac Type Severity Reaction Status Date / Time
latex Allergy Itching- Verified 02/19/24 09:09
pt
declines
having
this
allergy
morphine Allergy Itching- Verified 02/19/24 09:09
pt
declines
having
this
allergy
�Medication �Instructions �Recorded �Confirmed �Type
melatonin 5 mg tablet 5 mg PO HS sleep 04/06/19 02/19/24 History
carvedilol 25 mg tablet (Coreg) 25 mg PO BID Heart 05/18/20 02/19/24 History
disease/condition
atorvastatin 80 mg tablet 80 mg PO HS High cholesterol 01/25/21 02/19/24 History
aspirin 81 mg tablet,delayed 81 mg PO DAILY Blood clot 02/09/21 02/19/24 Rx
release prevention/tx ##0
lorazepam 1 mg tablet 1 mg PO TIDPRN PRN ANXIETY 09/11/22 02/19/24 History
lidocaine-prilocaine 2.5 %-2.5 % 1 applic topical DAILYPRN PRN PORT 10/28/23 02/19/24 History
topical cream
methylphenidate HCl 10 mg tablet 30 mg PO DAILY Neurological 10/28/23 02/19/24 History
Condition
ezetimibe 10 mg tablet (Zetia) 10 mg PO DAILY High Cholesterol 11/14/23 02/19/24 History
calcium acetate 667 mg tablet 667 mg PO AC Kidney Disease 02/19/24 02/19/24 History
cetirizine 10 mg tablet (Zyrtec) 10 mg PO DAILY Allergies 02/19/24 02/19/24 History
clopidogrel 75 mg tablet (Plavix) 75 mg PO DAILY Blood Clot 02/19/24 02/19/24 History
Prevention/Tx
coQ10 (ubiquinol) 200 mg capsule 200 mg PO DAILY Supplement 02/19/24 02/19/24 History
fexofenadine 180 mg tablet 180 mg PO DAILY Allergies 02/19/24 02/19/24 History
hydrocodone 5 mg-acetaminophen 325 1 tab PO BIDPRN PRN SEVERE PAINS 02/19/24 02/19/24 History
mg tablet
semaglutide 0.25 mg or 0.5 mg (2 0.25 mg SC GRIMM Diabetes 02/19/24 02/19/24 History
mg/3 mL) subcutaneous pen injector
(Ozempic)
sertraline 100 mg tablet 200 mg PO DAILY Mental Health 02/19/24 02/19/24 History
tizanidine 4 mg tablet 4 mg PO QID Muscle Spasms 02/19/24 02/19/24 History
vitamin B complex-vitamin C-folic 1 tab PO MOWEFR Supplement 02/19/24 02/19/24 History
acid 0.8 mg tablet (Nephro-Michelle)
Review of Systems
-
History Source: Patient
Constitutional: Reports Fever and Chills
EENT: Reports No Symptoms
Respiratory: Reports No Symptoms
Abdomen/GI: Reports Nausea and Vomiting
: Reports No Symptoms
Musculoskeletal: Reports Other (Left extremity brusing at area of AV graft)
Skin: Reports No Symptoms
Neurological: Reports No Symptoms
Endocrine: Reports No Symptoms
Physical Exam
Vital Signs
Temp Pulse Resp BP Pulse Ox
98.0 F 64 11 129/45 100
02/24/24 11:35 02/24/24 06:00 02/24/24 06:00 02/24/24 06:00 02/24/24 06:00
Lab Results
02/24/24 05:03
02/24/24 05:03
Troponin I 0.142 ng/ml H* D 02/20/24 00:47
Physical Exam
General: No Apparent Distress and Comfortable
HEENT: Normocephalic, Anicteric and Atraumatic
Respiratory: Non Labored Respirations
Cardiac: Negative JVD
GI: Soft, Non Tender and Non Distended
Musculoskeletal: No Edema and Other (Left lower extremity AV graft with palpable thrill, scant area of ecchymosis, all surrounding compartments soft)
Skin: Warm and Dry
Neuro: AO x 3
Assessment / Plan
-
Assessment: 68-year-old male admitted for bacteremia, we were asked to evaluate patient as he had an outpatient appointment scheduled for 02/24 to evaluate AV graft as HD centers continue to report difficulty accessing
Plan:
Patent left upper extremity AV graft. Based on assessment of ultrasound as well as physical exam, there is no evidence of significant stenosis and flow volumes are more than adequate for hemodialysis. In addition depth is appropriate. Therefore,
there is not much else to offer in terms of making AV graft any better for access. If this continues to be a failed AV graft, then the only other option would be to do a new access point in either in the same arm or more likely in the other arm.
In regards to patient's potential infectious etiology on admission, repeat blood cultures negative. The AV graft site does not appear to be infected. If concern can get ultrasound, but I do not know that it is needed based on clinical assessment
currently.
Placed follow-up appointment in DC instructions
[2024-02-24] MEDS: ANCEF 10 IV (14:26)
--- NOTE | 2024-02-24 14:41 | CM ---
Patient with Hx including ESRD on HD with Dx sepsis, bacteremia, anemia. Room air. Receiving IV cefazolin. Plan transfer to [facility] today.
Spoke with Renata PT; will recommend HH vs none.
Spoke with DEWEY Cuello; he has no home OT needs.
Message from Dr Mathew; she faxed CM script for IV cefazolin MWF days of dialysis for strep bacteremia, to be forwarded to [facility].
Spoke with Raina No; she was informed that a script was sent to their fax [phone] via [employer] for Abx with HD.
Met with patient who is aware [facility] is setup for him.
[facility]
--- NOTE | 2024-02-24 15:03 | PTCARENOTE ---
Report given to [facility]. Patient transferred to [facility] on stretcher. All belongings given to patient.
--- NOTE | 2024-02-24 15:30 | TRANSFER ---
Pt arrives via wheel chair, one person standby assist to hospital bed. pt aaox3. no pressing concerns at the moment. vitals stable. oriented to unit. care plan continues to be followed.
[2024-02-24 17:09] LABS: Glucose - Point of Care 118 mg/dl (70-99)
--- NOTE | 2024-02-24 19:26 | VATNOTE ---
Called to assess right arm Midline catheter. Dressing and gauze noted to be saturated with blood. Dressing removed and insertion site actively bleeding. Area cleaned per protocol, and direct pressure held to site. QuickClot gauze placed, and direct
pressure again held. Sterile dressing placed per protocol. StatLock was changed due to being soiled.
[2024-02-24] MEDS: LIPITOR 80 MG PO (21:47)
[2024-02-24] MEDS: MELATONIN 5 MG PO (21:47)
[2024-02-24] MEDS: SENOKOT-S 1 TABLET PO (21:48)
[2024-02-24 22:04] LABS: Glucose - Point of Care 109 mg/dl (70-99)
[2024-02-25] VITALS (10 sets, daily range): BP systolic 99–165; BP diastolic 45–70; BMI 29.6
[2024-02-25] MEDS: NORCO 5/325 1 TABLET PO ×2 (06:07→15:29)
[2024-02-25 06:33] LABS: Hematocrit 26.2 % (39.0-52.0); Mean Corp Hgb Conc. 33.6 g/dL (33.0-37.0); Mean Corpuscular Hgb 32.8 pg (27.0-31.0); Mean Corpuscular Volume 97.8 fL (80.0-94.0); Mean Platelet Volume 10.7 fL (7.4-10.4); Platelet Count 299 10^3/uL (130-400); Red Blood Cell Count 2.68 10^6/uL (4.70-6.10); Red Cell Dist. Width 20.7 % (11.5-14.5); White Blood Cell Count 11.9 10^3/uL (4.8-10.8)
[2024-02-25 06:35] LABS: Hemoglobin 8.8 g/dL (13.0-18.0)
[2024-02-25 07:01] LABS: Blood Urea Nitrogen 47 mg/dl (9-20); Calcium 8.8 mg/dl (8.4-10.2); Carbon Dioxide 31 mmol/L (22-30); Chloride 94 mmol/L (98-107); Estimated Creatinine Clearance 11 ml/min; Glucose 99 mg/dl (70-99); Potassium 4.5 mmol/L (3.5-5.1); Sodium 132 mmol/L (135-145)
[2024-02-25 07:31] LABS: Glucose - Point of Care 91 mg/dl (70-99)
[2024-02-25] MEDS: NOVOLOG FLEXPEN-LOW RESISTANCE SC ×3 (07:35→16:37)
[2024-02-25] MEDS: PHOSLO 667 MG PO ×3 (08:44→17:06)
[2024-02-25] MEDS: ELIQUIS 5 MG PO ×2 (08:44→20:51)
[2024-02-25] MEDS: SENOKOT-S 1 TABLET PO (08:44)
[2024-02-25] MEDS: ZETIA 10 MG PO (08:44)
[2024-02-25] MEDS: PLAVIX 75 MG PO (08:44)
[2024-02-25] MEDS: PACERONE 400 MG PO (08:45)
[2024-02-25] MEDS: MIRALAX PO (08:45)
[2024-02-25] MEDS: ZOLOFT 200 MG PO (08:45)
[2024-02-25] MEDS: ProAmatine PO ×2 (08:46→12:23)
[2024-02-25] MEDS: COREG 25 MG PO (08:49)
[2024-02-25] MEDS: RITALIN 30 MG PO (08:50)
[2024-02-25] MEDS: ZYRTEC 5 MG PO (08:50)
--- NOTE | 2024-02-25 08:50 | W.PN.CARDCBS ---
Today's Communication / Plan
-
Remains stable from cardiac standpoint.
Remains in sinus. Reduce Amiodarone to 200 mg BID starting 02/25 for one month then 200 mg daily. No recurrent atrial arrhythmia.
Cont Eliquis.
H/H improved after transfusion.
Cont Plavix for hx CAD.
Blood pressure stable on midodrine. If bp remains, higher would consider reducing midodrine.
Cont bacteremia tx as per ID/primary service. Outpatient cefazolin at the time of dialysis planned. No evidence of endocarditis.
We will arrange for cardiac follow-up.
Please recall if needed.
Discussed with nursing.
Impression / Plan
-
PCP: Dr. Tabor
Cardiology: Dr. Serra
Nephrology: Dr. Anderson
Heme/Onc: Dr. Guzman
Impression:
Presented with fever, N/V
Leukocytosis
Positive blood cultures form 02/19/24
Metabolic encephalopathy
Elevated troponin, suspect nonischemic myocardial injury
Paroxysmal atrial tachycardia
Atypical atrial flutter
CAD
s/p LAD PCI 2005
s/p CABG with GARCIA to LAD, SVG to PDA and SVG to OM 07/05/10
NSTEMI, trop 0.51 during August 2023 admission
s/p 4.0 x 15 mm Xience stent at the ostium of the vein graft 10/24/2023
PAD
s/p left femoral endarterectomy with left femoral-above the knee SFA bypass 04/10/2019
ESRD on HD MWF
Sinus bradycardia with Mobitz 1
DM 2
CML
HTN
Hyperlipidemia
Anemia of chronic disease
BPH
Former smoker
Lexiscan nuclear stress test 04/07/19: fixed inferior, anteroseptal and apical defects, no ischemic, EF 42%
Lexiscan nuclear stress test 10/22/2023: Partially reversible inferolateral, inferior, and apical defect consistent with infarction with ischemia.� Ejection fraction 43% with global hypokinesis.
Echo 07/16/2022: EF 60-65% by Kendall's, but closer to 50% visually, mild MR, no /AI, trace TR with mod PHTN with PAP 45-50 mmHg
Echo 09/21/2023: LVEF 65 to 70% with moderate concentric LVH.� No significant valvular disease.
Echo 02/21/2024: EF 55%, normal regional wall motion, mild conc LVH, normal RV size and function, mild MR, no aortic regurgitation
Plan:
Remains stable from cardiac standpoint.
HD for volume control as per nephrology.
Remains in sinus. Reduce Amiodarone to 200 mg BID starting 02/25 for one month then 200 mg daily. No recurrent atrial arrhythmia.
Cont Eliquis.
H/H improved after transfusion.
Cont Plavix for hx CAD.
Blood pressure stable on midodrine. If bp remains, higher would consider reducing midodrine.
Cont bacteremia tx as per ID/primary service. Outpatient cefazolin at the time of dialysis planned. No evidence of endocarditis.
We will arrange for cardiac follow-up.
Please recall if needed.
Discussed with nursing.
HPI: Paramjit is a 68 year old male with PMH of CAD w/ recent PCI of vein graft, PAD, ESRD on HD, atrial tachycardia, DM2, CML, HTN, HLD, anemia, and BPH who presented to [facility] for evaluation after he started with nausea, vomiting, and fever after recent
dental procedure. He had elevated temp of 103.0F on arrival with WBC of 14.4. Covid and flu testing negative. UA without evidence of UTI and chest xray without evidence of pneumonia. He was started on abx for concern of possible dialysis line
infection and reports he has had no vomiting or diarrhea overnight. He did have some chest 'flopping' and palpitations 02/18, EKG revealed atrial tachycardia with HRs up into the 130s. Troponin checked and was mildly elevated at 0.127, trending up to
0.204 and trending down thereafter. He reports ongoing flopping/fluttering sensation in his chest that is unchanged. Cardiology consulted for evaluation given atrial tachycardia with elevated HRs and elevated troponin.
Progress Note - [employer] [facility]
Subjective
Date of Service: February 25, 2024
Pt seen and examined. No cp or dyspnea.
Objective
Labs:
02/25/24 06:16
02/25/24 06:16
Labs
Hgb 8.8 g/dL (13.0-18.0) L D 02/25/24 06:16
Hct 26.2 % (39.0-52.0) L 02/25/24 06:16
Plt Count 299 10^3/uL (130-400) 02/25/24 06:16
PT 15.4 Sec (11.4-14.6) H 02/22/24 12:16
INR 1.24 02/22/24 12:16
APTT 38.1 Sec (23.4-35.0) H 02/22/24 12:16
Sodium 132 mmol/L (135-145) L 02/25/24 06:16
Potassium 4.5 mmol/L (3.5-5.1) 02/25/24 06:16
BUN 47 mg/dl (9-20) H 02/25/24 06:16
Creatinine 5.9 mg/dL (0.7-1.3) H* 02/25/24 06:16
Glucose 99 mg/dl (70-99) 02/25/24 06:16
Vital Signs and I&O:
Vital Signs
Temp Pulse Resp BP Pulse Ox
97.9 F 64 16 165/67 100
02/25/24 08:10 02/25/24 08:10 02/25/24 08:10 02/25/24 08:10 02/25/24 08:10
Vital Signs
Temp Pulse Resp BP Pulse Ox
97.9 F 64 16 165/67 100
02/25/24 08:10 02/25/24 08:10 02/25/24 08:10 02/25/24 08:10 02/25/24 08:10
Intake & Output
02/23/24 02/24/24 02/25/24 02/26/24
06:59 06:59 06:59 06:59
Intake Total 780 / 780 240 / 240 1300 / 1300
Output Total 50 / 50 30 / 30
Balance 780 / 780 190 / 190 1270 / 1270
Physical Exam
Physical Exam
General: No acute distress, AAOX3
Neck: Negative JVD
Heart: Regular, Negative S3 positive S1/S2, Negative S4, No murmur
Lungs: CTA b/l, negative wheezes/rales/rhonchi
Abd: Positive BS, NT/ND, neg rebound/rigidity/guarding
Ext: Negative cyanosis/clubbing/edema
Neuro: nonfocal
[2024-02-25] MEDS: ZANAFLEX 4 MG PO ×2 (11:09→17:06)
--- NOTE | 2024-02-25 11:32 | W.PN.ID1 ---
Date of Service
Date of Service: February 25, 2024
Today's Communication
Continue cefazolin with HD.
Assessment / Plan
# GPC in chains bacteremia.
- Isolate sent to reference laboratory for identification and susceptibilities.
- Repeat blood cultures negative
# s/p Sepsis: fever, leukocytosis due to bacteremia
# ESRD on HD via tunneled catheter
# DM
- TTE without visualized vegetation.
- Continue cefazolin 2g IV qMo,We and 3g IV qFri with dialysis through 03/18/24
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
#Additional Past Medical History:
DM2
ESRD on HD via HD catheter
LUE AVG placement 08/2023
CAD s/p CABG s/p stent
Chronic HFpEF
Paroxysmal atrial tachycardia
Anxiety/Depression/ADHD
PAD s/p Left fem-pop bypass
HTN
HLD
Anemia of chronic disease
BPH
RBBB
TIA
FINESSE on CPAP
COPD
lumbar laminectomy/fusion
Multiple foot surgeries
Bilateral ISELA
Chief Complaint
-: Bacteremia
Subjective / Review of Systems
Feels well.
Vital Signs / Physical Exam
Vital Signs
Vital Signs
Temp Pulse Resp BP Pulse Ox
98.1 F 63 16 164/70 97
02/25/24 11:16 02/25/24 11:16 02/25/24 11:16 02/25/24 11:16 02/25/24 11:16
Physical Exam
Constitutional: No Acute Distress and Comfortable
Gastrointestinal: Soft, Non Tender and Non Distended
Lines: HD Cath (right chest wall: no erythema)
Objective Data
Lab Data
Lab Results
02/25/24 06:16
02/25/24 06:16
PT 15.4 Sec (11.4-14.6) H 02/22/24 12:16
INR 1.24 02/22/24 12:16
APTT 38.1 Sec (23.4-35.0) H 02/22/24 12:16
Estimated Creat Clear 11 ml/min 02/25/24 06:16
Lactic Acid Cancelled 02/19/24 13:30
Total Bilirubin 0.7 mg/dl (0.2-1.3) 02/19/24 09:53
AST 28 U/L (17-59) 02/19/24 09:53
ALT 21 U/L (0-50) 02/19/24 09:53
Alkaline Phosphatase 83 U/L (38-126) 02/19/24 09:53
Most recent labs reviewed.
Micro Results:
02/21/24 05:27 Blood Culture - Preliminary
Blood/Venous No Growth in 4 days- Final report to follow
02/21/24 04:27 Blood Culture - Preliminary
Blood/Venous No Growth in 4 days- Final report to follow
02/22/24 03:36 Blood Culture - Preliminary
Blood/Venous No Growth in 72 hours- Final report to follow
02/19/24 11:16 Blood Culture - Preliminary
Blood/Venous Positive culture in progress
Gram Stain - Preliminary
02/19/24 09:53 Blood Culture - Preliminary
Blood/Venous Positive culture in progress
Gram Stain - Preliminary
02/19/24 12:40 MRSA Screen - Final
Nose No Methicillin Resistant Staphylococcus aureus isolated.
02/19/24 09:32 Influenza Types A & B (JAZZMINE) - Final
Nasal Swab Negative for Influenza A & B, NAAT
Negative results must be combined with clinical observations
and patient history.
Nucleic Acid Amplification test (NAAT)performed on the
[employer] platform.
02/18/2024 HD access duplex US: AV graft is patent, average flow volume 1207 mL/min. Mild elevation of peak systolic velocity at the arterial anastomosis, velocity ratio 2.6. Soft tissue hematoma seen on prior ultrasound is no longer seen.
02/19/2024 CXR: no infiltrates
02/19/2024 AXR: Moderate gaseous distention of the stomach. Moderate amount of stool within the colon, mainly in the right colon and transverse colon.
[2024-02-25 11:39] LABS: Glucose - Point of Care 120 mg/dl (70-99)
--- NOTE | 2024-02-25 14:39 | W.PN.HOSP.TC ---
Today's Communication/Plan
-
see note
Assessment / Plan
Assessment / Plan
# Sepsis -poa
# GPC bacteremia
Blood cultures at admission cultures growing gram-positive organisms, further identification could not be done and in-house labs and sample needed to be sent to [facility]
Follow-up repeat blood cultures have been negative
Echocardiogram did not show any concern of endocarditis
Pro-Manjit elevated however not accurate in the setting of renal failure
Patient was on vancomycin in hospital, ID recommended patient to be transition to cefazolin 2 g IV Saturday and 3 g Saturday after dialysis till 03/18/24
#ESRD on hemodialysis Saturday
#Hyperkalemia
s/p emergent HD on admission
K normalized
Nephro following and help appreciated
Vascular surgeon evaluated left arm AV fistula, functioning on clinical evaluation and still if not able to be used will require new 1 placed. Currently have right IJ catheter for dialysis.
Discussed with nephro/spouse/vascular PA and will attempt to use fistula tomorrow again, if HD staff could not access / have other problems will discuss with vascular for redo fistula if appropriate.
#Nausea and vomiting likely 2/2 severe constipation
Lactic acid normal and BP stable.
started on aggressive bowel regimen
received Enema on 02/20 with good results.
resolved at this point
#Mild metabolic encephalopathy - resolved
reason unclear.
#Chest discomfort likely secondary to musculoskeletal versus topical status post vomiting rule out ACS
#CAD status post CABG status post stents
#Hx of RBBB
#Elevated troponin likely Non Ischemic myocardial injury
Continue with Plavix statin and beta-keny
Aspirin discontinued with use of eliquis
hep gtt Dced
#Paroxysmal atrial tachycardia vs. atypical flutter
Currently on amiodarone loading dose
Could not handle Cardizem with Hypotension
Continue Coreg
# Hypotension likely secondary to atrial tachycardia
Status post pressors
Midodrine for now 5mg increased to 10mg TID
BP improved with conversion to NSR.
# Anemia of chronic disease
# Mild acute blood loss anemia from the midline site
-Eliquis restarted. Hemoglobin 7.3
-Ordered type and screen for morning. Dr Guevara consented for blood transfusion and form placed in chart.
#PAD status post stent and bypass
-Continue Plavix and statin
-Aspirin discontinued in the setting of Eliquis
#Diabetes mellitus type 2
-Hold p.o. meds
-Sliding-scale Accu-Cheks
#Primary hypertension
Continue carvedilol
Volume overload with dialysis should help
#Chronic HFpEF
Volume removal via HD
#Secondary/tertiary hyperparathyroidism
Continue with Phos binders
#Anxiety/depression
Continue sertraline high-dose
#Chronic back pain
Chronic opiate dependent
Continue with pain meds
Tizanidine interaction with amiodarone. Held for now. Will discuss with pharmacy.
#ADD
Cont methylphenidate
DVT prophylaxis eliquis
Discussed care plan with spouse/nephrology.
Anticipated Discharge: Within 24 hours
Subjective/Interval History
-
Date of Service: February 25, 2024
denies of having any problems
Objective Data
-
Labs:
Laboratory Results
02/25/24
06:16
WBC 11.9 H
Hgb 8.8 L D
Hct 26.2 L
Plt Count 299
Sodium 132 L
Potassium 4.5
Chloride 94 L
Carbon Dioxide 31 H
BUN 47 H
Creatinine 5.9 H*
Glucose 99
Calcium 8.8
Vital Signs:
Vital Signs
Temp Pulse Resp BP Pulse Ox
98.1 F 63 16 127/54 97
02/25/24 11:16 02/25/24 12:23 02/25/24 11:16 02/25/24 12:23 02/25/24 11:50
I&O
02/24/24 02/25/24 02/26/24
06:59 06:59 06:59
Intake Total 240 / 240 1300 / 1300
Output Total 50 / 50 30 / 30
Balance 190 / 190 1270 / 1270
Review of Systems
-
Respiratory: Reports No Symptoms
Cardiac: Reports No Symptoms
Abdomen/GI: Reports No Symptoms
Physical Exam
-
General: No Apparent Distress
HEENT: Moist Mucous Membranes
Respiratory: Clear to Auscultation and Other (Right chest dialysis catheter in place)
Cardiac: S1/S2 and Irregular Rhythm; Negative Murmur or Tachycardic
GI: Soft, Nontender, Nondistended and Normal Bowel Sounds
Musculoskeletal: No Edema and Other (RUE midline site pressure dressing. Palpable radial pulse. No edema or pain.)
Skin: Negative Rash
Neuro: Awake, Alert, Oriented, AO x 3, No Motor Deficits and Nonfocal/Grossly Intact
Psych: Calm
--- NOTE | 2024-02-25 14:51 | PN.CDI ---
CDI
- -
CDI:
Physician Documentation Request
Admit Date: 02/19/24 11:38
Dear Doctor Lawrence,
Patient admitted for sepsis.
02/23 Hospitalist PN: 'Hypotension likely secondary to atrial tachycardia. Status post pressors. Midodrine for now 5mg increased to 10mg TID. BP improved with conversion to NSR.'
Selected Entries
02/20/24
18:55 02/20/24
19:15 02/21/24
01:01
Phenylephrine CURRENT dosage in mcg/min 80 60 20
Please clarify which of the following is the most likely etiology of the above symptoms and treatment rendered:
Cardiogenic shock
Septic shock
Shock, unknown type
Other
Use of terms such as suspected, likely, concern for, or probable (associated with a specific diagnosis that is being evaluated, monitored, or treated as if it exists) are acceptable and can be coded in the inpatient setting, when documented at the
time of discharge.
Thank you,
Mel Dias RN, BSN
CDI Specialist
Available via [employer] text
Please use your independent medical judgment in providing your response.
--- NOTE | 2024-02-25 16:13 | W.PN.NEPH.PH ---
Today's Communication / Plan
-
HD tomorrow
Assessment/Plan
-
Impression:
Fevers/nausea /vomiting/Leukocytosis
Constipation
End-stage renal disease Saturday
Hyperkalemia
Profound peripheral vascular disease
Anemia of chronic kidney disease
Coronary artery disease with prior history of CABG
History of CML
Hyperphosphatemia
A-fib with rapid ventricular response
Plan:
HD tomorrow
plan to access AVG tomorrow and if fails need new access per vasc
abx per ID till 03/18
GITA for anemia
Appropriate fluid restrictions and dietary modification
Maintain calcium acetate with meals re: hyperphosphatemia
cont high dose midodrine
-
-
Date of Service: February 25, 2024
CC / HPI / ROS
-
Chief Complaint:
End-stage renal disease
History of Present Illness:
End-stage renal disease on Saturday schedule
Hemodynamically stable
tolerated HD yesterday
BP soft, on midodrine
Hgb better at 8.8 post PRBC
Review of Systems:
No chest pain or shortness of breath at this time
Labs
-
Labs:
WBC 11.9 10^3/uL (4.8-10.8) H 02/25/24 06:16
RBC 2.68 10^6/uL (4.70-6.10) L 02/25/24 06:16
Hgb 8.8 g/dL (13.0-18.0) L D 02/25/24 06:16
Hct 26.2 % (39.0-52.0) L 02/25/24 06:16
Plt Count 299 10^3/uL (130-400) 02/25/24 06:16
Sodium 132 mmol/L (135-145) L 02/25/24 06:16
Potassium 4.5 mmol/L (3.5-5.1) 02/25/24 06:16
Chloride 94 mmol/L (98-107) L 02/25/24 06:16
Carbon Dioxide 31 mmol/L (22-30) H 02/25/24 06:16
BUN 47 mg/dl (9-20) H 02/25/24 06:16
Creatinine 5.9 mg/dL (0.7-1.3) H* 02/25/24 06:16
eGFR 9.80 02/25/24 06:16
Glucose 99 mg/dl (70-99) 02/25/24 06:16
Calcium 8.8 mg/dl (8.4-10.2) 02/25/24 06:16
Albumin 5.0 g/dl (3.5-5.0) 02/19/24 09:53
Physical Exam
-
Vital Signs:
Vital Signs
Temp Pulse Resp BP Pulse Ox
97.4 F 63 18 104/48 98
02/25/24 15:24 02/25/24 15:24 02/25/24 15:24 02/25/24 15:24 02/25/24 15:24
Cardiovascular:: Regular rate and rhythm
Respiratory:: Bilateral: CTA
Lung Excursion:: Normal
Abdomen:: Nontender and Soft
Extremity Edema:: None: Bilateral:
Luther Catheter: No
--- NOTE | 2024-02-25 16:17 | CM ---
Discharge plan of care: Home with [facility] VN and PT services. Continue outpatient HD with [facility]. IV/AB script forwarded to [facility] previously for AB to be administered at HD.
Per MD: If HD staff cannot access fistula, will discuss with vascular for redo of fistula if appropriate.
[2024-02-25 16:33] LABS: Glucose - Point of Care 119 mg/dl (70-99)
[2024-02-25] MEDS: ProAmatine 10 MG PO (17:06)
--- NOTE | 2024-02-25 18:45 | PTCARENOTE ---
Patient's property assessment monitor alarming showing bradycardia, HR in high 30s/low 40s. Patient asymptomatic, states no complaints at this time. BP taken by tech 99/45 R forearm. Cardiology made aware, stated to hold scheduled amiodarone and coreg at this
time, obtain EKG and monitor vitals. Tizanidine ordered earlier in shift per hospitalist; cardiology made aware, stated to hold 0200 dose of tizanidine at this time.
[2024-02-25] MEDS: COREG PO (19:17)
--- NOTE | 2024-02-25 20:25 | PTCARENOTE ---
Pt presenting with bradycardia on telemetry, HR ranging low 30's-40's. Pt is drowsy, but awakens to verbal stimuli, AAOx3, offers no complaints, states he is tired. BP 99/45. D/w on-call cardiology, Dr. Carolina Amezcua, and covering FERRULER, EKG obtained and
sent for review to both providers. Advised by cardiology to hold Amiodarone, Coreg, Tizanidine and all other sedating medications for the evening. ZOLL pads placed at bedside. Repeat EKG to be obtained @ 0600 per cardiology request.
[2024-02-25] MEDS: SENOKOT-S PO (20:52)
--- NOTE | 2024-02-25 21:03 | W.PN.UPDATE ---
Update Note
Progress Note Update
At 1999 Nsg made INVENTORY CONTROL ASSISTANT aware HR in 30's-40's, Refinish Technician is aware of the situation. Patient seen and noted being asymptomatic, little drowsy, easily arousable. Labs ordered.
At [address] Amezcua for advise on IV atropine as HR noted to be briefly in 20's and asymptomatic, and patient continuous to be asymptomatic. Advised to try albuterol or glucagon to try and counter the beta keny. Will order Albuterol
neb once and see if any changes, otherwise will transfer patient to higher level of care.
ZOLL pads on, held beta blockers, amiodarone and held all sedating medications.
remains 30's-50's, even after albuterol, patient remains asymptomatic, Will transfer patient to higher level of care.
[2024-02-25] MEDS: MELATONIN PO (21:29)
[2024-02-25 21:39] LABS: Blood Urea Nitrogen 60 mg/dl (9-20); Calcium 8.5 mg/dl (8.4-10.2); Carbon Dioxide 27 mmol/L (22-30); Chloride 95 mmol/L (98-107); Estimated Creatinine Clearance 10 ml/min; Glucose 160 mg/dl (70-99); Magnesium 2.3 mg/dl (1.6-2.3); Sodium 130 mmol/L (135-145); eGFR 8.42
[2024-02-25 21:52] LABS: Glucose - Point of Care 165 mg/dl (70-99)
[2024-02-25] MEDS: VENTOLIN NEBULES 1.25 MG INH (22:24)
[2024-02-25] MEDS: LIPITOR 80 MG PO (22:37)
[2024-02-26] VITALS (24 sets, daily range): BP systolic 75–186; BP diastolic 36–78; BMI 29.7
--- NOTE | 2024-02-26 01:30 | TRANSFER ---
Orders obtained for transfer to IVU. Called report to PAN DUMPERSunitha. Pt and belongings transported to IVU via hospital bed by RN x2, monitored by life pack. Pt called and left his a voicemail with updated room number.
--- NOTE | 2024-02-26 03:29 | PTCARENOTE ---
Pt rec'd from [address] [place] [address] just after mn in bed. transferred to our bed. pt ambulated safely without c/o feeling dizzy. Sinus soledad with occ junctional rhythm noted. b/p stable upon arrival. call deluca within reach. Pt aware to not get oob on his own.
--- NOTE | 2024-02-26 04:25 | PTCARENOTE ---
At approx 0400 pt went into sinus rhythm 70's with BBB.
[2024-02-26 07:56] LABS: Glucose - Point of Care 96 mg/dl (70-99)
--- NOTE | 2024-02-26 09:03 | W.PN.CARDCBS ---
Addendum entered and electronically signed by Aidan Christianson MD 02/26/24 15:10:
I saw and examined the patient.
The Stock Analyst's note was reviewed and I agree with the note.
Comment:
GEN: No distress, awake, Ox3
HEENT: supple, anicteric, mmm
LUNGS: CTA, no wheezes/rales
CV: Reg, S1/S2, 1/6 syst LSB, no gallop
ABD: soft, BS+, NT/ND
EXT: No edema
NEURO: Gross non-focal
SKIN: No rash
Plan:
Had some episodes of junctional rhythm and bradycardia earlier. Agree with holding amiodarone and Coreg today.
Will likely restart amiodarone 200 mg once daily in a.m. Currently in sinus rhythm with a heart rate in the 70s.
Continue Eliquis and Plavix.
Hemoglobin stable at 8.4.
Plan for hemodialysis today. No further episodes of bacteremia or fever. Still awaiting isolation of organism from February 18
Original Note:
Today's Communication / Plan
-
hold amio, coreg today
resume amio at lower dose of 200mg daily in AM pending HR trends
continue eliquis, plavix
decrease midodrine as able
HD today
Impression / Plan
-
PCP: Dr. Tabor
Cardiology: Dr. Serra
Nephrology: Dr. Anderson
Heme/Onc: Dr. Guzman
Impression:
Presented with fever, N/V
Leukocytosis
Positive blood cultures form 02/19/24
Metabolic encephalopathy
Elevated troponin, suspect nonischemic myocardial injury
Paroxysmal atrial tachycardia
Atypical atrial flutter
CAD
s/p LAD PCI 2005
s/p CABG with GARCIA to LAD, SVG to PDA and SVG to OM 07/05/10
NSTEMI, trop 0.51 during August 2023 admission
s/p 4.0 x 15 mm Xience stent at the ostium of the vein graft 10/24/2023
PAD
s/p left femoral endarterectomy with left femoral-above the knee SFA bypass 04/10/2019
ESRD on HD MWF
Sinus bradycardia with Mobitz 1
DM 2
CML
HTN
Hyperlipidemia
Anemia of chronic disease
BPH
Former smoker
Lexiscan nuclear stress test 04/07/19: fixed inferior, anteroseptal and apical defects, no ischemic, EF 42%
Lexiscan nuclear stress test 10/22/2023: Partially reversible inferolateral, inferior, and apical defect consistent with infarction with ischemia.� Ejection fraction 43% with global hypokinesis.
Echo 07/16/2022: EF 60-65% by Kendall's, but closer to 50% visually, mild MR, no /AI, trace TR with mod PHTN with PAP 45-50 mmHg
Echo 09/21/2023: LVEF 65 to 70% with moderate concentric LVH.� No significant valvular disease.
Echo 02/21/2024: EF 55%, normal regional wall motion, mild conc LVH, normal RV size and function, mild MR, no aortic regurgitation
Plan:
-patient overnight with bradycardia/junctional rhythm with ectopy, at times in pattern of bigeminy. with holding amio and coreg, HRs have improved by review of tele this morning, HRs currently in 60s in SR.
-no current need for PPM as rhythm resolved off medications however does have indication for BB and with PAT earlier in admission, likely needs amiodarone. presently also not ideal PPM candidate given ongoing treatment for bacteremia, however may
require PPM in future.
-will plan to restart amiodarone at lower dose of 200mg daily in AM.
-continue eliquis, plavix. s/p recent stent to VG 09/2023
-for HD today. volume mgmt through HD
-currently on midodrine 10mg TID, however BP elevated this morning. consider decreasing dose
-Continue treatment of bacteremia as per ID/primary service. Outpatient cefazolin at the time of dialysis planned. No evidence of endocarditis by TTE
HPI: Paramjit is a 68 year old male with PMH of CAD w/ recent PCI of vein graft, PAD, ESRD on HD, atrial tachycardia, DM2, CML, HTN, HLD, anemia, and BPH who presented to [facility] for evaluation after he started with nausea, vomiting, and fever after recent
dental procedure. He had elevated temp of 103.0F on arrival with WBC of 14.4. Covid and flu testing negative. UA without evidence of UTI and chest xray without evidence of pneumonia. He was started on abx for concern of possible dialysis line
infection and reports he has had no vomiting or diarrhea overnight. He did have some chest 'flopping' and palpitations 02/18, EKG revealed atrial tachycardia with HRs up into the 130s. Troponin checked and was mildly elevated at 0.127, trending up to
0.204 and trending down thereafter. He reports ongoing flopping/fluttering sensation in his chest that is unchanged. Cardiology consulted for evaluation given atrial tachycardia with elevated HRs and elevated troponin.
Progress Note - Office Services Coordinator
Subjective
Date of Service: February 26, 2024
feeling better this morning. no lightheadedness
Objective
Labs:
Labs
Hgb 8.8 g/dL (13.0-18.0) L D 02/25/24 06:16
Hct 26.2 % (39.0-52.0) L 02/25/24 06:16
Plt Count 299 10^3/uL (130-400) 02/25/24 06:16
PT 15.4 Sec (11.4-14.6) H 02/22/24 12:16
INR 1.24 02/22/24 12:16
APTT 38.1 Sec (23.4-35.0) H 02/22/24 12:16
Sodium 130 mmol/L (135-145) L 02/25/24 21:09
Potassium 5.0 mmol/L (3.5-5.1) 02/25/24 21:09
BUN 60 mg/dl (9-20) H 02/25/24 21:09
Creatinine 6.7 mg/dL (0.7-1.3) H* 02/25/24 21:09
Glucose 160 mg/dl (70-99) H 02/25/24 21:09
Vital Signs and I&O:
Vital Signs
Temp Pulse Resp BP Pulse Ox
98.9 F 68 20 186/63 98
02/26/24 07:09 02/26/24 07:11 02/26/24 07:09 02/26/24 07:11 02/26/24 08:01
Vital Signs
Temp Pulse Resp BP Pulse Ox
98.9 F 68 20 186/63 98
02/26/24 07:09 02/26/24 07:11 02/26/24 07:09 02/26/24 07:11 02/26/24 08:01
Intake & Output
02/24/24 02/25/24 02/26/24 02/27/24
07:59 07:59 07:59 07:59
Intake Total 240 / 240 1300 / 1300 660 / 660
Output Total 50 / 50 30 / 30 100 / 100
Balance 190 / 190 1270 / 1270 560 / 560
Physical Exam
Physical Exam
GEN: No distress, awake, alert, oriented x3
HEENT: supple, anicteric, mmm, eomi
LUNGS: CTA B/L, no wheezes/rales
CV: Reg, S1/S2, no murmur
ABD: soft, BS+, NT/ND
EXT: No cyanosis, clubbing, edema
NEURO: Gross non-focal
SKIN: Warm, pink, dry. No rash. LUE fistula
[2024-02-26] MEDS: NOVOLOG FLEXPEN-LOW RESISTANCE SC ×3 (09:15→18:52)
[2024-02-26] MEDS: ELIQUIS 5 MG PO (09:16)
[2024-02-26] MEDS: PLAVIX 75 MG PO (09:17)
--- NOTE | 2024-02-26 11:38 | CM ---
Reviewed chart. Mr. Deleon transferred to IVU. Met with Mr. Deleon to review discharge plans. He states prior to admission he resides with his spouse in a two story home with one step and a ramp to enter. He states he has a fist floor set-up. He
states prior to admission he was independent with ambulation and adls. He has a single point cane and walker at home. He states he goes to outpatient dialysis at [facility] on Saturday, Saturday and Saturday at 6:30 a.m. He states he
drives himself. We reviewed VNA Services. He is agreeable to VNA Services if needed. Telephone call to [facility] to confirm VNA referral made. VNA referral was already sent. Spouse works outside the home. Medical work-up in progress.
The discharge plan is to return home with his spouse, [facility] and outpatient dialysis at [facility] when medically stable.
[2024-02-26] MEDS: PHOSLO PO ×3 (11:49→21:56)
[2024-02-26 11:55] LABS: Glucose - Point of Care 115 mg/dl (70-99)
--- NOTE | 2024-02-26 12:44 | W.PN.HOSP.TC ---
Today's Communication/Plan
-
monitor HR
hold coreg
HD attempt through fistula
Assessment / Plan
Assessment / Plan
# Sepsis -poa
# GPC bacteremia
Blood cultures at admission cultures growing gram-positive organisms, further identification could not be done and in-house labs and sample needed to be sent to [facility]
Follow-up repeat blood cultures have been negative
Echocardiogram did not show any concern of endocarditis
Pro-Manjit elevated however not accurate in the setting of renal failure
Patient was on vancomycin in hospital, ID recommended patient to be transition to cefazolin 2 g IV Saturday and 3 g Saturday after dialysis till 03/18/24
#ESRD on hemodialysis Saturday
#Hyperkalemia
s/p emergent HD on admission
K normalized
Nephro following and help appreciated
Vascular surgeon evaluated left arm AV fistula, functioning on clinical evaluation and still if not able to be used will require new 1 placed. Currently have right IJ catheter for dialysis.
4/2 Discussed with nephro/spouse/vascular PA and will attempt to use fistula tomorrow again, if HD staff could not access / have other problems will discuss with vascular for redo fistula if appropriate.
4/3 awaiting dialysis on today with plan for further discussion with vascular surgery if unable to use AV fistula
#Paroxysmal atrial tachycardia vs. atypical flutter
Bradycardia
Patient was on amiodarone/Coreg, which need to be held last night after patient developed bradycardia
Coreg on hold. start on low dose amiodarone from AM
#Nausea and vomiting likely 2/2 severe constipation - resolved
Lactic acid normal and BP stable.
started on aggressive bowel regimen
received Enema on 02/20 with good results.
#Mild metabolic encephalopathy - resolved
reason unclear.
#Chest discomfort likely secondary to musculoskeletal versus topical status post vomiting rule out ACS
#CAD status post CABG status post stents
#Hx of RBBB
#Elevated troponin likely Non Ischemic myocardial injury
Continue with Plavix statin and beta-keny
Aspirin discontinued with use of Eliquis
hep gtt Dced
# Hypotension likely secondary to atrial tachycardia
cardiogenic shock
required pressor support at admission.
Midodrine for now 5mg increased to 10mg TID
# Anemia of chronic disease
# Mild acute blood loss anemia from the midline site
-Eliquis restarted.
-Ordered type and screen for morning. Dr Guevara consented for blood transfusion and form placed in chart.
#PAD status post stent and bypass
-Continue Plavix and statin
-Aspirin discontinued in the setting of Eliquis
#Diabetes mellitus type 2
-Hold p.o. meds
-Sliding-scale Accu-Cheks
#Primary hypertension
Continue carvedilol
Volume overload with dialysis should help
#Chronic HFpEF
Volume removal via HD
#Secondary/tertiary hyperparathyroidism
Continue with Phos binders
#Anxiety/depression
Continue sertraline high-dose
#Chronic back pain
Chronic opiate dependent
Continue with pain meds
Tizanidine interaction with amiodarone. Held for now. Will discuss with pharmacy.
#ADD
Cont methylphenidate
DVT prophylaxis eliquis
Anticipated Discharge: Within 24 hours
Subjective/Interval History
-
Date of Service: February 26, 2024
had bradycardia last night -some palpitation
denies Chest discomfort/dizziness/nausea
no other acute issues
Objective Data
-
Vital Signs:
Vital Signs
Temp Pulse Resp BP Pulse Ox
98.4 F 68 18 167/60 98
02/26/24 11:47 02/26/24 11:47 02/26/24 11:47 02/26/24 11:47 02/26/24 11:47
I&O
04/02/24 04/03/24 04/04/24
06:59 06:59 06:59
Intake Total 1300 / 1300 660 / 660 120 / 120
Output Total 30 100 / 100 150 / 150
Balance 1270 / 1270 560 / 560 -30 / -30
Review of Systems
-
Respiratory: Reports No Symptoms
Cardiac: Reports No Symptoms
Abdomen/GI: Reports No Symptoms
Physical Exam
-
General: No Apparent Distress
HEENT: Negative Oxygen
Respiratory: Clear to Auscultation and Other (Right chest dialysis catheter in place)
Cardiac: S1/S2 and Irregular Rhythm; Negative Murmur or Tachycardic
GI: Soft, Nontender and Nondistended
Musculoskeletal: Other (RUE midline site pressure dressing. Palpable radial pulse. No edema or pain.)
Skin: Negative Rash
Neuro: Awake, Alert, Oriented, AO x 3, No Motor Deficits and Nonfocal/Grossly Intact
Psych: Calm
[2024-02-26 13:59] LABS: Hematocrit 24.3 % (39.0-52.0); Hemoglobin 8.4 g/dL (13.0-18.0); Mean Corp Hgb Conc. 34.6 g/dL (33.0-37.0); Mean Corpuscular Hgb 32.2 pg (27.0-31.0); Mean Corpuscular Volume 93.1 fL (80.0-94.0); Mean Platelet Volume 10.7 fL (7.4-10.4); Platelet Count 347 10^3/uL (130-400); Red Blood Cell Count 2.61 10^6/uL (4.70-6.10); Red Cell Dist. Width 19.7 % (11.5-14.5); White Blood Cell Count 14.6 10^3/uL (4.8-10.8)
--- NOTE | 2024-02-26 14:06 | W.PN.ID1 ---
Date of Service
Date of Service: February 26, 2024
Today's Communication
Continue cefazolin.
Assessment / Plan
# Strep mutans bacteremia (2 sets)
- Recent dental work
- Repeat blood cultures negative
- TTE without visualized vegetation.
- Organism sensitive to PCN/ceftriaxone.
- Continue cefazolin 2g IV qMo,We and 3g IV qFri with dialysis through 03/18/24 (4 weeks)
food and beverage assistant manager faxed abx script to [facility] dialysis.
# Bradycardia
-Cardiology following
# s/p Sepsis: fever, leukocytosis due to bacteremia
# ESRD on HD via tunneled catheter
# DM
#Additional Past Medical History:
DM2
ESRD on HD via HD catheter
LUE AVG placement 08/2023
CAD s/p CABG s/p stent
Chronic HFpEF
Paroxysmal atrial tachycardia
Anxiety/Depression/ADHD
PAD s/p Left fem-pop bypass
HTN
HLD
Anemia of chronic disease
BPH
RBBB
TIA
FINESSE on CPAP
COPD
lumbar laminectomy/fusion
Multiple foot surgeries
Bilateral ISELA
Chief Complaint
-: Bacteremia
Subjective / Review of Systems
Feels well. No complaints.
Vital Signs / Physical Exam
Vital Signs
Vital Signs
Temp Pulse Resp BP Pulse Ox
98.4 F 68 18 167/60 98
02/26/24 11:47 02/26/24 11:47 02/26/24 11:47 02/26/24 11:47 02/26/24 11:47
Physical Exam
Constitutional: No Acute Distress and Comfortable
Cardiovascular: Regular Rate and S1/S2
Pulmonary: Clear
Gastrointestinal: Soft, Non Tender and Non Distended
Extremities: Negative Edema
Neurological: AO x 3
Objective Data
Lab Data
Lab Results
02/26/24 13:49
PT 15.4 Sec (11.4-14.6) H 02/22/24 12:16
INR 1.24 02/22/24 12:16
APTT 38.1 Sec (23.4-35.0) H 02/22/24 12:16
Estimated Creat Clear 10 ml/min 02/25/24 21:09
Lactic Acid Cancelled 02/19/24 13:30
Total Bilirubin 0.7 mg/dl (0.2-1.3) 02/19/24 09:53
AST 28 U/L (17-59) 02/19/24 09:53
ALT 21 U/L (0-50) 02/19/24 09:53
Alkaline Phosphatase 83 U/L (38-126) 02/19/24 09:53
Most recent labs reviewed.
Micro Results:
02/21/24 05:27 Blood Culture - Final
Blood/Venous No Growth - Final Report
02/21/24 04:27 Blood Culture - Final
Blood/Venous No Growth - Final Report
02/22/24 03:36 Blood Culture - Preliminary
Blood/Venous No Growth in 4 days- Final report to follow
02/19/24 11:16 Blood Culture - Preliminary
Blood/Venous Positive culture in progress
Gram Stain - Preliminary
02/19/24 09:53 Blood Culture - Preliminary
Blood/Venous Positive culture in progress
Gram Stain - Preliminary
02/19/24 12:40 MRSA Screen - Final
Nose No Methicillin Resistant Staphylococcus aureus isolated.
02/19/24 09:32 Influenza Types A & B (JAZZMINE) - Final
Nasal Swab Negative for Influenza A & B, NAAT
Negative results must be combined with clinical observations
and patient history.
Nucleic Acid Amplification test (NAAT)performed on the
[employer] platform.
02/18/2024 HD access duplex US: AV graft is patent, average flow volume 1207 mL/min. Mild elevation of peak systolic velocity at the arterial anastomosis, velocity ratio 2.6. Soft tissue hematoma seen on prior ultrasound is no longer seen.
02/19/2024 CXR: no infiltrates
02/19/2024 AXR: Moderate gaseous distention of the stomach. Moderate amount of stool within the colon, mainly in the right colon and transverse colon.
[2024-02-26 14:28] LABS: Blood Urea Nitrogen 71 mg/dl (9-20); Calcium 9.1 mg/dl (8.4-10.2); Carbon Dioxide 25 mmol/L (22-30); Chloride 93 mmol/L (98-107); Estimated Creatinine Clearance 8 ml/min; Glucose 101 mg/dl (70-99); Potassium 4.7 mmol/L (3.5-5.1); Sodium 131 mmol/L (135-145)
--- NOTE | 2024-02-26 15:00 | PTOTSP ---
Patient transferred from to higher level of care in IVU. Will require updated PT and OT orders to resume therapy.
[2024-02-26] MEDS: ProAmatine 10 MG PO (15:02)
--- NOTE | 2024-02-26 15:19 | W.PN.NEPH.HD ---
Assessment
-
Patient seen on dialysis
Systolic blood pressure 129 at current UF
Heart rate dropped to 29 last evening (amiodarone and Coreg held)
Attempted AVG use which noted initial flash but then arterial and venous pressures willie precipitously and access was abandoned
Maintaining on cefazolin for strep mutans bacteremia
Progress Note - Hemodialysis
-
Date of Service: February 26, 2024
Duration: 30 minutes and 3 hours
Potassium Bath: 2
Calcium Bath: 2.5
Opti-Dialyzer: 160
Ultrafiltration: Other (2 kg )
Blood Flow: 400
Dialysate Flow: 600
Heparin: None
EPO: 10,000
[2024-02-26] MEDS: RETACRIT 10000 UNITS IV (15:30)
--- NOTE | 2024-02-26 16:02 | W.PN.UPDATE ---
Update Note
Progress Note Update
Seen and evaluated. Discussed with dialysis nurse. They were able to cannulate the graft today successfully. However when hooked up to the machine immediate spike in pressures. Suggesting flow issues. I am not really clear what the answer here
is. Prior ultrasound dated 02/18/2024 had demonstrated adequate flow volumes with no significant stenosis. Excellent thrill on exam still. He does have a palpable left radial pulse, but I would favor ruling out an inflow arterial stenosis at this
point that may be precluding adequate flow. Will obtain CTA left upper extremity runoff to make sure. If no stenosis is noted, then likely would favor at this point revising this graft as this cannot be used and has not been successfully used. I
had discussed this with the family and that is what they would wish at this point as well. I discussed again with the patient as well as with his via the phone. They are all in agreement. I discussed with infectious disease doctor and given
that his cultures have cleared for at least 3 days now and he is continuing on antibiotics, reasonable in terms of proceeding with new graft placement. N.p.o. after midnight tonight.
[2024-02-26] MEDS: HEPARIN 4200 UNITS INTRACATH (16:51)
[2024-02-26] MEDS: MIRALAX PO (17:26)
[2024-02-26] MEDS: RITALIN PO (17:27)
[2024-02-26] MEDS: ZETIA 10 MG PO (17:27)
[2024-02-26] MEDS: SENOKOT-S PO ×2 (17:27→22:00)
[2024-02-26] MEDS: ProAmatine PO ×2 (17:28→21:56)
[2024-02-26] MEDS: ZOLOFT PO (17:28)
[2024-02-26] MEDS: NEPHROCAP PO (17:28)
[2024-02-26] MEDS: PHOSLO 667 MG PO (17:28)
[2024-02-26] MEDS: ANCEF 10 IV (17:29)
[2024-02-26] MEDS: TYLENOL 650 MG PO ×2 (17:29→23:15)
[2024-02-26 18:41] LABS: Glucose - Point of Care 127 mg/dl (70-99)
--- NOTE | 2024-02-26 19:41 | PTCARENOTE ---
Pt had HD this afternoon, given midodrine during dialysis. Pt reported fatigue post HD. Telemetry shows sinus rhythm with RBBB and first degree AV block at a rate in 70's. Pt had CT angiogram followed by some vomiting which resolved. Pt NPO from
midnight for possible AV fistula revision on 02/26.
[2024-02-26 21:41] LABS: Glucose - Point of Care 109 mg/dl (70-99)
[2024-02-26] MEDS: LIPITOR 80 MG PO (22:03)
[2024-02-26] MEDS: MELATONIN 5 MG PO (23:13)
--- NOTE | 2024-02-26 23:45 | PTCARENOTE ---
Pt states he is anxious about tomorrow. emotional support given. Pt also with c/o h/a medicated with Tylenol. Nausea per pt post Ct scan. Ate dinner approx 2100.tolerated half. Pt aware of npo status after mn tonight.
[2024-02-27] VITALS (25 sets, daily range): BP systolic 99–208; BP diastolic 46–82; PULSE 74; BMI 28.9
[2024-02-27 05:19] LABS: Hematocrit 26.3 % (39.0-52.0); Mean Corp Hgb Conc. 34.2 g/dL (33.0-37.0); Mean Corpuscular Hgb 32.3 pg (27.0-31.0); Mean Corpuscular Volume 94.3 fL (80.0-94.0); Mean Platelet Volume 10.2 fL (7.4-10.4); Platelet Count 363 10^3/uL (130-400); Red Blood Cell Count 2.79 10^6/uL (4.70-6.10); Red Cell Dist. Width 19.7 % (11.5-14.5); White Blood Cell Count 16.1 10^3/uL (4.8-10.8)
[2024-02-27 06:05] LABS: Blood Urea Nitrogen 38 mg/dl (9-20); Calcium 8.7 mg/dl (8.4-10.2); Carbon Dioxide 29 mmol/L (22-30); Chloride 96 mmol/L (98-107); Estimated Creatinine Clearance 13 ml/min; Glucose 101 mg/dl (70-99); Potassium 4.2 mmol/L (3.5-5.1); Sodium 132 mmol/L (135-145); eGFR 11.68
[2024-02-27 06:59] LABS: Glucose - Point of Care 99 mg/dl (70-99)
[2024-02-27] MEDS: PLAVIX 75 MG PO (07:57)
[2024-02-27] MEDS: PHOSLO PO ×2 (07:57→14:56)
[2024-02-27] MEDS: NOVOLOG FLEXPEN-LOW RESISTANCE SC ×2 (07:57→12:30)
[2024-02-27] MEDS: RITALIN PO (07:58)
[2024-02-27] MEDS: ZOLOFT 200 MG PO (07:58)
[2024-02-27] MEDS: APRESOLINE 10 MG IV ×2 (07:59→22:49)
[2024-02-27] MEDS: MIRALAX PO (09:04)
[2024-02-27] MEDS: ProAmatine PO (09:04)
[2024-02-27] MEDS: SENOKOT-S PO ×2 (09:05→20:13)
--- NOTE | 2024-02-27 09:40 | W.PN.CARDCBS ---
Addendum entered and electronically signed by Madison Reynolds DO 02/27/24 13:32:
I saw and examined the patient.
The Meat Counter Worker's note was reviewed and I agree with the note.
Comment: Seen and examined prior to planned AV fistulogram with vascular surgery later today. Denies chest pain or shortness of breath. Denies dizziness. Reports indigestion this morning with belching. Denies difficulty swallowing solids/liquids.
General: No acute distress, AAOX3
Heart: Regular, positive S1/S2, no murmur
Lungs: CTA b/l, negative wheezes/rales/rhonchi
Abd: Positive BS, NT/ND, neg rebound/rigidity/guarding
Ext: No edema. Left upper extremity fistula with dressing
Neuro: nonfocal
Plan:
-Reports some indigestion/belching this morning after taking his pills.
-he is on PPI.
-If persist may need GI evaluation; denies dysphagia with liquids/solids
-Paroxysmal atrial flutter/atrial tachycardia with bradycardia arrhythmia
-no further bradycardia or junctional rhythm on tele overnight. Bradycardia occurred on both amiodarone [new] and Coreg, now held
-no recurrences of aflutter noted on tele.
-Discussed with EP, resume low-dose amiodarone and monitor on telemetry
-no current need for PPM, but will monitor closely
-End-stage kidney disease on dialysis Saturday
-Nephrology following. Hemodialysis planned tomorrow.
-AV fistulogram planned today with vascular surgery
-eliquis on hold with procedure today. continue plavix. s/p recent stent to VG 09/2023
-continue volume mgmt through HD
Hypertension with history of hypotension
-currently on midodrine 10mg TID, however BPs elevated.
-Hold midodrine.
- Add amlodipine
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
-ID following
-Continue IV antibiotics
-repeat blood cultures negative
-TTE without visualized vegetation.
Addendum entered and electronically signed by Domenica Caba PA-C 02/27/24 12:45:
d/w nephrology. will hold midodrine given elevated BPs. will add norvasc 2.5mg BID.
noted interaction between amiodarone and tizanidine (interestingly tizanidine was resumed 4/2 for 2 doses and that evening patient noted to have soledad issues). will stop this medication for now as amio needed for rhythm control. follow on tele.
Original Note:
Today's Communication / Plan
-
for new HD graft placement today
follow rhythm on tele
consider restart low dose coreg vs amio. will discuss with EP
follow BPs. IV hydralazine PRN
Impression / Plan
-
PCP: Dr. Tabor
Cardiology: Dr. Serra
Nephrology: Dr. Anderson
Heme/Onc: Dr. Guzman
Impression:
Presented with fever, N/V
Leukocytosis
Positive blood cultures form 02/19/24
Metabolic encephalopathy
Elevated troponin, suspect nonischemic myocardial injury
Paroxysmal atrial tachycardia
Atypical atrial flutter
CAD
s/p LAD PCI 2005
s/p CABG with GARCIA to LAD, SVG to PDA and SVG to OM 07/05/10
NSTEMI, trop 0.51 during August 2023 admission
s/p 4.0 x 15 mm Xience stent at the ostium of the vein graft 10/24/2023
PAD
s/p left femoral endarterectomy with left femoral-above the knee SFA bypass 04/10/2019
ESRD on HD MWF
Sinus bradycardia with Mobitz 1
DM 2
CML
HTN
Hyperlipidemia
Anemia of chronic disease
BPH
Former smoker
Lexiscan nuclear stress test 04/07/19: fixed inferior, anteroseptal and apical defects, no ischemic, EF 42%
Lexiscan nuclear stress test 10/22/2023: Partially reversible inferolateral, inferior, and apical defect consistent with infarction with ischemia.� Ejection fraction 43% with global hypokinesis.
Echo 07/16/2022: EF 60-65% by Kendall's, but closer to 50% visually, mild MR, no /AI, trace TR with mod PHTN with PAP 45-50 mmHg
Echo 09/21/2023: LVEF 65 to 70% with moderate concentric LVH.� No significant valvular disease.
Echo 02/21/2024: EF 55%, normal regional wall motion, mild conc LVH, normal RV size and function, mild MR, no aortic regurgitation
Plan:
-he reports some indigestion this morning after taking his pills. he is on PPI.
-no further bradycardia or junctional rhythm on tele overnight. also no recurrences of aflutter noted on tele. amio, which was added this admission, and coreg, which he was on as OP, both remain on hold. would plan to resume single agent at lower
dose and follow closely on tele
-no current need for PPM as rhythm resolved off medications however does have indication for BB and is high risk for recurrence of atrial arrhythmia. not ideal PPM candidate given ongoing treatment for bacteremia, however may require PPM in future.
-with issues with his dialysis graft. vascular following. for new graft placement today
-eliquis on hold with procedure today. continue plavix. s/p recent stent to VG 09/2023
-continue volume mgmt through HD
-currently on midodrine 10mg TID, however BPs elevated. consider decreasing dose. he is only getting about half of doses due to hypertension. if not placing back on coreg, would consider addition of hydralazine for BP control
-Continue treatment of bacteremia as per ID/primary service. No evidence of endocarditis by TTE
HPI: Paramjit is a 68 year old male with PMH of CAD w/ recent PCI of vein graft, PAD, ESRD on HD, atrial tachycardia, DM2, CML, HTN, HLD, anemia, and BPH who presented to [facility] for evaluation after he started with nausea, vomiting, and fever after recent
dental procedure. He had elevated temp of 103.0F on arrival with WBC of 14.4. Covid and flu testing negative. UA without evidence of UTI and chest xray without evidence of pneumonia. He was started on abx for concern of possible dialysis line
infection and reports he has had no vomiting or diarrhea overnight. He did have some chest 'flopping' and palpitations 02/18, EKG revealed atrial tachycardia with HRs up into the 130s. Troponin checked and was mildly elevated at 0.127, trending up to
0.204 and trending down thereafter. He reports ongoing flopping/fluttering sensation in his chest that is unchanged. Cardiology consulted for evaluation given atrial tachycardia with elevated HRs and elevated troponin.
Progress Note - [employer] Regenerator
Subjective
Date of Service: February 27, 2024
with some feelings of indigestion. for new graft placement today
Objective
Labs:
02/27/24 05:12
02/27/24 05:12
Labs
Hgb 9.0 g/dL (13.0-18.0) L 02/27/24 05:12
Hct 26.3 % (39.0-52.0) L 02/27/24 05:12
Plt Count 363 10^3/uL (130-400) 02/27/24 05:12
PT 15.4 Sec (11.4-14.6) H 02/22/24 12:16
INR 1.24 02/22/24 12:16
APTT 38.1 Sec (23.4-35.0) H 02/22/24 12:16
Sodium 132 mmol/L (135-145) L 02/27/24 05:12
Potassium 4.2 mmol/L (3.5-5.1) 02/27/24 05:12
BUN 38 mg/dl (9-20) H 02/27/24 05:12
Creatinine 5.1 mg/dL (0.7-1.3) H* 02/27/24 05:12
Glucose 101 mg/dl (70-99) H 02/27/24 05:12
Vital Signs and I&O:
Vital Signs
Temp Pulse Resp BP Pulse Ox
98.4 F 72 20 168/71 100
02/27/24 06:53 02/27/24 06:57 02/27/24 06:53 02/27/24 09:04 02/27/24 08:17
Vital Signs
Temp Pulse Resp BP Pulse Ox
98.4 F 72 20 168/71 100
02/27/24 06:53 02/27/24 06:57 02/27/24 06:53 02/27/24 09:04 02/27/24 08:17
Intake & Output
02/25/24 02/26/24 02/27/24 02/28/24
07:59 07:59 07:59 07:59
Intake Total 1300 / 1300 660 / 660 360 / 360
Output Total 30 / 30 100 / 100 150 / 150
Balance 1270 / 1270 560 / 560 210 / 210
Physical Exam
Physical Exam
GEN: No distress, awake, alert, oriented x3
HEENT: supple, anicteric, mmm, eomi
LUNGS: no audible wheezes
CV: reg rhythm on tele
EXT: No cyanosis, clubbing, edema
NEURO: Gross non-focal
SKIN: Warm, pink, dry. No rash.
--- NOTE | 2024-02-27 09:58 | W.PN.UPDATE ---
Update Note
Progress Note Update
I reviewed his CT angiogram completed yesterday evening. Reviewed imaging carefully. No evidence of significant inflow stenosis. Arterial anastomosis widely patent. Graft proximities skin is closed. There is a outflow venous stenosis which I
had noted on prior fistulogram, but may appear slightly progressed. I extensive discussion with Dr. Anderson regarding all these findings. My concern about just the revision is that it would not change the flow dynamics through this fistula/graft.
Therefore a better option would be to go to the other arm if we are to create a new access. However, I think very reasonable to attempt to angioplasty/stent to the outflow vein stenosis to see if that would improve the dynamics and allow successful
dialysis to proceed. If that is the case then we could avoid creation of a new access in the dominant arm. Will plan fistulogram therefore today. Then nephrology will reattempt access tomorrow. Discussed with patient's over the phone as
well.
--- NOTE | 2024-02-27 10:05 | W.PN.ID1 ---
Date of Service
Date of Service: February 27, 2024
Today's Communication
Continue abx.
Assessment / Plan
# Strep mutans bacteremia (2 sets)
- Recent dental work
- Repeat blood cultures negative
- TTE without visualized vegetation.
- Organism sensitive to PCN/ceftriaxone.
- Ceftriaxone IV for now
- At time of discharge transition to outpatient cefazolin 2g IV qMo,We and 3g IV qFri with dialysis through 03/18/24 (4 weeks)
operations program manager faxed abx script to [facility] dialysis.
# ESRD on HD via tunneled catheter
- LUE AV graft problems
-Form ID standpoint, clear for graft stent as blood cx's neg.
# Leukocytosis trending up
-unclear etiology
no diarrhea or new sxs
- Follow for improvement after fistulogram stent of AVG
# s/p Bradycardia
-Cardiology following
# s/p Sepsis: fever, leukocytosis due to bacteremia
# DM
#Additional Past Medical History:
DM2
ESRD on HD via HD catheter
LUE AVG placement 08/2023
CAD s/p CABG s/p stent
Chronic HFpEF
Paroxysmal atrial tachycardia
Anxiety/Depression/ADHD
PAD s/p Left fem-pop bypass
HTN
HLD
Anemia of chronic disease
BPH
RBBB
TIA
FINESSE on CPAP
COPD
lumbar laminectomy/fusion
Multiple foot surgeries
Bilateral ISELA
Chief Complaint
-: Leukocytosis and Bacteremia
Subjective / Review of Systems
No diarrhea. No constipation. Feels well.
Vital Signs / Physical Exam
Vital Signs
Vital Signs
Temp Pulse Resp BP Pulse Ox
98.4 F 72 20 168/71 100
02/27/24 06:53 02/27/24 06:57 02/27/24 06:53 02/27/24 09:04 02/27/24 08:17
Physical Exam
Constitutional: No Acute Distress and Comfortable
Cardiovascular: Regular Rate and S1/S2
Pulmonary: Clear
Gastrointestinal: Soft, Non Tender, Non Distended and Normal Bowel Sounds
Extremities: Negative Edema
Neurological: AO x 3
Objective Data
Lab Data
Lab Results
02/27/24 05:12
02/27/24 05:12
PT 15.4 Sec (11.4-14.6) H 02/22/24 12:16
INR 1.24 02/22/24 12:16
APTT 38.1 Sec (23.4-35.0) H 02/22/24 12:16
Estimated Creat Clear 13 ml/min 02/27/24 05:12
Lactic Acid Cancelled 02/19/24 13:30
Total Bilirubin 0.7 mg/dl (0.2-1.3) 02/19/24 09:53
AST 28 U/L (17-59) 02/19/24 09:53
ALT 21 U/L (0-50) 02/19/24 09:53
Alkaline Phosphatase 83 U/L (38-126) 02/19/24 09:53
Most recent labs reviewed.
Micro Results:
02/22/24 03:36 Blood Culture - Final
Blood/Venous No Growth - Final Report
02/19/24 11:16 Blood Culture - Final
Blood/Venous Streptococcus species
Gram Stain - Final
02/19/24 09:53 Blood Culture - Final
Blood/Venous Streptococcus species
Gram Stain - Final
02/21/24 05:27 Blood Culture - Final
Blood/Venous No Growth - Final Report
02/21/24 04:27 Blood Culture - Final
Blood/Venous No Growth - Final Report
02/19/24 12:40 MRSA Screen - Final
Nose No Methicillin Resistant Staphylococcus aureus isolated.
02/19/24 09:32 Influenza Types A & B (JAZZMINE) - Final
Nasal Swab Negative for Influenza A & B, NAAT
Negative results must be combined with clinical observations
and patient history.
Nucleic Acid Amplification test (NAAT)performed on the
[employer] platform.
02/18/2024 HD access duplex US: AV graft is patent, average flow volume 1207 mL/min. Mild elevation of peak systolic velocity at the arterial anastomosis, velocity ratio 2.6. Soft tissue hematoma seen on prior ultrasound is no longer seen.
02/19/2024 CXR: no infiltrates
02/19/2024 AXR: Moderate gaseous distention of the stomach. Moderate amount of stool within the colon, mainly in the right colon and transverse colon.
Care Review
Plan reviewed with: Physician (Dr. Atkinson)
[2024-02-27] MEDS: ROCEPHIN 2000 MG IV (10:21)
[2024-02-27] MEDS: ATIVAN 1 MG PO ×2 (10:22→22:37)
[2024-02-27] MEDS: STERILE WATER FOR INJECTION 20 ML IV (10:22)
--- NOTE | 2024-02-27 10:49 | W.SUR.PREOP ---
Pre-Operative Surgical Note
-
I have examined this patient prior to the performance of the scheduled procedure.
The patient's condition is unchanged from the time of the current History and
Physical and the patient is able to undergo the scheduled procedure.
Though patient had prior received contrast for fistulogram that I performed in the past without any issues, and had had CTA of the aorta with runoff prior without any issues, he noted that yesterday's CT angiogram resulted in some difficulty with
odd sensations of warmth and some mouth or throat symptoms. No shortness of breath or urticaria. Regardless we will likely plan on premedicating him with hydrocortisone and/or Benadryl. Will discuss with anesthesia.
[2024-02-27 10:59] LABS: Troponin I < 0.012 ng/ml
[2024-02-27] MEDS: BENADRYL 50 MG IV (11:08)
[2024-02-27] MEDS: SOLU-CORTEF 200 MG IV (11:08)
[2024-02-27] MEDS: FLUSH (NSS) 3 FLUSH IV (11:09)
--- NOTE | 2024-02-27 11:16 | W.PN.NEPH.PH ---
Today's Communication / Plan
-
AV fistulogram this morning discussed with vascular surgery before procedure
HD in am
Assessment/Plan
-
Impression:
Fevers/nausea /vomiting/Leukocytosis
Constipation
End-stage renal disease Saturday
Hyperkalemia
Profound peripheral vascular disease
Anemia of chronic kidney disease
Coronary artery disease with prior history of CABG
History of CML
Hyperphosphatemia
A-fib with rapid ventricular response
Plan:
HD tomorrow, orders provide
plan to access AVG tomorrow again after AVF-gram by vascular this am
Ceftriaxone per ID till 03/18
GITA for anemia
Appropriate fluid restrictions and dietary modification
Maintain calcium acetate with meals re: hyperphosphatemia
cont high dose midodrine
-
-
Date of Service: February 27, 2024
CC / HPI / ROS
-
Chief Complaint:
End-stage renal disease
History of Present Illness:
End-stage renal disease on Saturday schedule
Hemodynamically stable
tolerated HD yesterday
BP soft, on midodrine
Hgb better at 9 post PRBC
Review of Systems:
No chest pain or shortness of breath at this time
Labs
-
Labs:
WBC 16.1 10^3/uL (4.8-10.8) H 02/27/24 05:12
RBC 2.79 10^6/uL (4.70-6.10) L 02/27/24 05:12
Hgb 9.0 g/dL (13.0-18.0) L 02/27/24 05:12
Hct 26.3 % (39.0-52.0) L 02/27/24 05:12
Plt Count 363 10^3/uL (130-400) 02/27/24 05:12
Sodium 132 mmol/L (135-145) L 02/27/24 05:12
Potassium 4.2 mmol/L (3.5-5.1) 02/27/24 05:12
Chloride 96 mmol/L (98-107) L 02/27/24 05:12
Carbon Dioxide 29 mmol/L (22-30) 02/27/24 05:12
BUN 38 mg/dl (9-20) H 02/27/24 05:12
Creatinine 5.1 mg/dL (0.7-1.3) H* 02/27/24 05:12
eGFR 11.68 02/27/24 05:12
Glucose 101 mg/dl (70-99) H 02/27/24 05:12
Calcium 8.7 mg/dl (8.4-10.2) 02/27/24 05:12
Albumin 5.0 g/dl (3.5-5.0) 02/19/24 09:53
Physical Exam
-
Vital Signs:
Vital Signs
Temp Pulse Resp BP Pulse Ox
98.9 F 74 10 202/59 100
02/27/24 11:00 02/27/24 11:00 02/27/24 11:00 02/27/24 11:00 02/27/24 11:00
Cardiovascular:: Irregular rate and rhythm
Respiratory:: Bilateral: Coarse
Lung Excursion:: Normal
Abdomen:: Nontender and Soft
Bowel Sounds:: Normal
Extremity Edema:: +1: Bilateral:
Luther Catheter: No
[2024-02-27 12:22] LABS: Glucose - Point of Care 122 mg/dl (70-99)
--- NOTE | 2024-02-27 12:29 | OR.RPT ---
Operative Report
Operative Report
PROCEDURE DATE: 02/27/2024
Preoperative diagnosis:
1. End-stage renal disease on hemodialysis.
2. Poorly functioning left upper extremity AV graft.
3. Outflow and central venous stenosis.
Postoperative diagnosis: Same
Procedure:
1. The left upper extremity fistulogram and central venogram.
2. Balloon angioplasty and stent placement of venous anastomotic/central venous stenosis with 10 mm x 4 cm Cook 635 stent.
3. Balloon angioplasty and stent placement with covered [place] Viabahn 8 mm x 5 cm stent with an AV graft.
4. Supervision and interpretation.
Surgeon: Demetrio
Clinic Licensed Practical Nurse: None
Complications: None
Anesthesia: Local, sedation
Fluoroscopy:
2.9 min
7 mGy
1.38 Gy.cm2
Indications for procedure:
Poorly functioning left upper extremity AV graft. Cannulation was successful but high pressures were noted. This was on the arterial and venous side. Slightly missed bleeding/confusing. Inflow study with CT angiogram demonstrated no evidence of
inflow issues. Prior to abandoning this graft and moving to the other arm, discussed treating potential central venous/outflow stenosis as noted on CT scan. Risk/benefits/alternatives all fully discussed with the patient and his . They
understood all wish to proceed.
Description of procedure:
Patient was identified, brought to the operating room. Placed on the table in the supine position. After the adequate administration of anesthesia, the patient was prepped and draped in the standard surgical fashion. A standard preoperative
timeout was undertaken and everybody was in agreement with the plan.
The AV graft was punctured and a central facing direction in the distal upper arm near the antecubital fossa using a micropuncture kit under direct duplex ultrasound guidance. A 7 Chinese sheath was then advanced over a 0.035 inch wire.
Fistulogram/central venogram was obtained. This demonstrated a patent AV graft. In the more central portion of the AV graft in the proximal upper arm there appeared to be a stenosis/irregularity in the graft that correlated to a stenotic area seen
on CT scan. Beyond here the graft appeared patent. At the venous anastomosis there appeared to be a severe stenosis. This had progressed compared to prior fistulogram. Beyond here central venogram demonstrated no significant stenosis. I was
able to gain wire access into the central venous system. I then exchanged for a Storq wire. The patient was given 3000 units of intravenous heparin. Given the concern for recurrent stenosis at the venous anastomosis, I elected to primarily stent
to that area. I used a 10 mm x 4 cm IncreaseCard 635 stent. This was post angioplastied with a 9 mm angioplasty balloon. I was able to resolve completely the waist in the balloon. Completion angiogram demonstrated an excellent result at this juncture.
I now exchanged my Storq wire for a 0.018 inch wire. I then primarily stented the irregularity in the graft so as to give it some extra support as well using a [place] Viabahn 8 mm x 5 cm covered stent. I position this at the area of stenosis and
deployed it in the standard fashion. I post angioplastied with a 9 mm balloon. Completion angiogram now demonstrated an excellent result with no additional stenoses and brisk flow through the AV graft and into the central venous system. At this
point I was very satisfied. Wires and catheters were withdrawn. A 4-0 Monocryl pursestring stitch was placed around the sheath entry site and this was tied down as the sheath was withdrawn. Manual pressure was also gently applied. The patient
tolerated the procedure well and had a good thrill in the graft upon completion.
The patient tolerated procedure well.
--- NOTE | 2024-02-27 14:33 | W.PN.HOSP.TC ---
Today's Communication/Plan
-
for OR today
resume anxiety medication
Assessment / Plan
Assessment / Plan
# Sepsis -poa
# GPC bacteremia
Blood cultures at admission cultures growing gram-positive organisms, further identification could not be done and in-house labs and sample needed to be sent to [facility]
Follow-up repeat blood cultures have been negative
Echocardiogram did not show any concern of endocarditis
Pro-Manjit elevated however not accurate in the setting of renal failure
Patient was on vancomycin in hospital, ID recommended patient to be transition to cefazolin 2 g IV Saturday and 3 g Saturday after dialysis till 03/18/24
#ESRD on hemodialysis Saturday
#Hyperkalemia
s/p emergent HD on admission
K normalized
Nephro following and help appreciated
Vascular surgeon evaluated left arm AV fistula, functioning on clinical evaluation and still if not able to be used will require new 1 placed. Currently have right IJ catheter for dialysis.
/ Discussed with nephro/spouse/vascular PA and will attempt to use fistula tomorrow again, if HD staff could not access / have other problems will discuss with vascular for redo fistula if appropriate.
4/ CT angio showing venous outflow tract stenosis, vascular surgery evaluated and taking patient to the OR tomorrow
#Paroxysmal atrial tachycardia vs. atypical flutter
Bradycardia
Patient was on amiodarone/Coreg, which need to be held last night after patient developed bradycardia
Patient being started on amiodarone 200 mg daily from today
Heart rate improved
#Nausea and vomiting likely 2/2 severe constipation - resolved
Lactic acid normal and BP stable.
started on aggressive bowel regimen
received Enema on 02/20 with good results.
#Mild metabolic encephalopathy - resolved
reason unclear.
#Chest discomfort likely secondary to musculoskeletal versus topical status post vomiting rule out ACS
#CAD status post CABG status post stents
#Hx of RBBB
#Elevated troponin likely Non Ischemic myocardial injury
Continue with Plavix statin and beta-keny
Aspirin discontinued with use of Eliquis
hep gtt Dced
# Hypotension likely secondary to atrial tachycardia
cardiogenic shock
required pressor support at admission.
Midodrine for now 5mg increased to 10mg TID
# Anemia of chronic disease
# Mild acute blood loss anemia from the midline site
-Eliquis restarted.
-Ordered type and screen for morning. Dr Guevara consented for blood transfusion and form placed in chart.
#PAD status post stent and bypass
-Continue Plavix and statin
-Aspirin discontinued in the setting of Eliquis
#Diabetes mellitus type 2
-Hold p.o. meds
-Sliding-scale Accu-Cheks
#Primary hypertension
Continue carvedilol
Volume overload with dialysis should help
#Chronic HFpEF
Volume removal via HD
#Secondary/tertiary hyperparathyroidism
Continue with Phos binders
#Anxiety/depression
Patient likely have some amount of chest tightness/dyspnea after contrast for CTA left upper extremity
Resuming back patient home dose of lorazepam
Troponin negative. EKG showing right bundle branch block
#Chronic back pain
Chronic opiate dependent
Continue with pain meds
Tizanidine interaction with amiodarone. Held for now. Will discuss with pharmacy.
#ADD
Cont methylphenidate
DVT prophylaxis eliquis
Anticipated Discharge: Within 24 hours
Subjective/Interval History
-
Date of Service: February 27, 2024
Patient had brief episode of chest tightness/dyspnea after getting contrast for CT scan
Patient also questioning some reflux symptoms
Objective Data
-
Labs:
Laboratory Results
02/27/24
05:12
WBC 16.1 H
Hgb 9.0 L
Hct 26.3 L
Plt Count 363
Sodium 132 L
Potassium 4.2
Chloride 96 L
Carbon Dioxide 29
BUN 38 H
Creatinine 5.1 H*
Glucose 101 H
Calcium 8.7
Vital Signs:
Vital Signs
Temp Pulse Resp BP Pulse Ox
98.8 F 76 16 139/60 95
02/27/24 13:39 02/27/24 14:00 02/27/24 13:39 02/27/24 14:00 02/27/24 13:47
I&O
02/26/24 02/27/24 02/28/24
06:59 06:59 06:59
Intake Total 660 / 660 360 / 360
Output Total 100 / 100 150 / 150
Balance 560 / 560 210 / 210
Review of Systems
-
Respiratory: Reports Trouble Breathing
Cardiac: Reports Chest Pain
Abdomen/GI: Reports Indigestion
Physical Exam
-
General: No Apparent Distress
HEENT: Negative Oxygen
Respiratory: Clear to Auscultation and Other (Right chest dialysis catheter in place)
Cardiac: S1/S2 and Irregular Rhythm; Negative Murmur or Tachycardic
GI: Soft, Nontender and Nondistended
Musculoskeletal: Other (RUE midline site pressure dressing. Left upper extremity AV fistula in place palpable thrill)
Skin: Negative Rash
Neuro: Awake, Alert, Oriented, AO x 3, No Motor Deficits and Nonfocal/Grossly Intact
Psych: Calm
[2024-02-27] MEDS: SOLU-CORTEF IV (14:55)
[2024-02-27] MEDS: BENADRYL IV (14:55)
[2024-02-27] MEDS: NORVASC 2.5 MG PO ×2 (15:03→20:13)
[2024-02-27] MEDS: PROTONIX 40 MG PO (15:04)
[2024-02-27] MEDS: ZETIA 10 MG PO (15:04)
[2024-02-27] MEDS: ZYRTEC 5 MG PO (15:04)
[2024-02-27] MEDS: PACERONE 200 MG PO (15:08)
[2024-02-27 17:37] LABS: Glucose - Point of Care 262 mg/dl (70-99)
[2024-02-27] MEDS: PHOSLO 667 MG PO (17:38)
[2024-02-27] MEDS: NOVOLOG FLEXPEN-LOW RESISTANCE 3 UNITS SC (17:39)
--- NOTE | 2024-02-27 19:18 | PTCARENOTE ---
Pt received from PACU post fistulogram/angioplasty done under general anesthesia. Dressing on left upper arm dry and intact, no sign of bleeding or hematoma, good left radial pulse. Pt denied any discomfort once awake, OOB with assistance to
bathroom. Telemetry shows sinus rhythm with RBBB, SBP's 130-170. Plan for HD treatment at 07:00 on 02/27 via left arm fistula.
[2024-02-27] MEDS: LIPITOR 80 MG PO (20:14)
--- NOTE | 2024-02-27 21:39 | VATNOTE ---
requested to change right arm midline dsg again today as pt. complains its 'itching'; noted red rash on underneath bottom of dsg. pt using own 'creams' to relieve the itching. pt. stated he might go home tomorrow. Instructed pt. to try and not itch
dsg off.
[2024-02-27 22:16] LABS: Glucose - Point of Care 180 mg/dl (70-99)
[2024-02-27] MEDS: MELATONIN 5 MG PO (22:38)
[2024-02-28] VITALS (18 sets, daily range): BP systolic 119–183; BP diastolic 61–132; BMI 29.2
[2024-02-28 04:09] LABS: Hematocrit 24.6 % (39.0-52.0); Hemoglobin 8.4 g/dL (13.0-18.0); Mean Corp Hgb Conc. 34.1 g/dL (33.0-37.0); Mean Corpuscular Hgb 32.3 pg (27.0-31.0); Mean Corpuscular Volume 94.6 fL (80.0-94.0); Mean Platelet Volume 10.3 fL (7.4-10.4); Platelet Count 377 10^3/uL (130-400); Red Cell Dist. Width 19.7 % (11.5-14.5); White Blood Cell Count 16.1 10^3/uL (4.8-10.8)
[2024-02-28 05:06] LABS: Blood Urea Nitrogen 59 mg/dl (9-20); Carbon Dioxide 26 mmol/L (22-30); Chloride 96 mmol/L (98-107); Estimated Creatinine Clearance 9 ml/min; Glucose 128 mg/dl (70-99); Potassium 4.9 mmol/L (3.5-5.1); Sodium 133 mmol/L (135-145); eGFR 7.47
[2024-02-28 07:37] LABS: Glucose - Point of Care 107 mg/dl (70-99)
[2024-02-28] MEDS: NOVOLOG FLEXPEN-LOW RESISTANCE SC ×2 (07:39→12:04)
[2024-02-28] MEDS: HEPARIN 4300 UNITS INTRACATH (08:35)
[2024-02-28] MEDS: RETACRIT 10000 UNITS IV (08:35)
[2024-02-28] MEDS: PHOSLO PO (09:35)
--- NOTE | 2024-02-28 09:54 | W.PN.HOSP.TC ---
Today's Communication/Plan
-
d/c planning for Home with HH
Assessment / Plan
Assessment / Plan
# Sepsis -poa
# Streptococcus mutans bacteremia
Blood cultures at admission cultures growing gram-positive organisms, sent to for identification - identified as streptococcus mutans, report reviewed.
Follow-up repeat blood cultures have been negative
Echocardiogram did not show any concern of endocarditis
Patient was on vancomycin in hospital, ID recommended patient to be transition to cefazolin 2 g IV Saturday and 3 g Saturday after dialysis till 03/18/24
#ESRD on hemodialysis Saturday
#Hyperkalemia
s/p emergent HD on admission
Nephro following and help appreciated
02/23 Vascular surgeon evaluated left arm AV fistula, functioning on clinical evaluation and still if not able to be used will require new 1 placed. Currently have right IJ catheter for dialysis.
02/24 Discussed with nephro/spouse/vascular PA and will attempt to use fistula tomorrow again, if HD staff could not access / have other problems will discuss with vascular for redo fistula if appropriate.
02/25 CT angio showing venous outflow tract stenosis, vascular surgery evaluated and taking patient to the OR tomorrow
4/5 Underwent AV fistula repair with stenting of venous outflow tract and able to get HD through fistula.
#Paroxysmal atrial tachycardia vs. atypical flutter
Bradycardia episode -resolved
Patient was on amiodarone/Coreg, which need to be held after patient developed bradycardia
Patient being discharged on amiodarone 200mg/d
started on eliquis 5mg bid post discharge.
#Nausea and vomiting likely 2/2 severe constipation - resolved
Lactic acid normal and BP stable.
started on aggressive bowel regimen
received Enema on 02/20 with good results.
#Mild metabolic encephalopathy - resolved
reason unclear.
#Chest discomfort likely secondary to musculoskeletal versus topical status post vomiting rule out ACS
#CAD status post CABG status post stents
#Hx of RBBB
#Elevated troponin likely Non Ischemic myocardial injury
Continue with Plavix statin and beta-keny
Aspirin discontinued with use of Eliquis
hep gtt Dced
# Hypotension likely secondary to atrial tachycardia - resolved
cardiogenic shock - resolved
required pressor support at admission.
Now hypertensive and required to be given small dose of norvasc for BP control
# Anemia of chronic disease
# Mild acute blood loss anemia from the midline site
-Eliquis restarted. needed 1 u prbc, hbg stable now
#PAD status post stent and bypass
-Continue Plavix and statin
#Diabetes mellitus type 2
-Hold p.o. meds
-Sliding-scale Accu-Cheks
#Primary hypertension
coreg stopped with bradycardia
now on small dose of norvasc, further dose increment will be required based on response.
#Chronic HFpEF
Volume removal via HD
#Secondary/tertiary hyperparathyroidism
Continue with Phos binders
#Anxiety/depression
Patient likely have some amount of chest tightness/dyspnea after contrast for CTA left upper extremity
Resuming back patient home dose of lorazepam
Troponin negative. EKG showing right bundle branch block
#Chronic back pain
Chronic opiate dependent
Continue with pain meds
Tizanidine interaction with amiodarone. Held for now. Will discuss with pharmacy.
#ADD
Cont methylphenidate
DVT prophylaxis eliquis
More than 30 minutes spent in discharge including
Final examination of the patient
Summarizing hospital stay
Instructions for continuing care to all relevant caregivers
Preparation of discharge records, prescriptions, and referral forms
Total time spent (in minutes): 45 mins
Anticipated Discharge: Today
Subjective/Interval History
-
Date of Service: February 28, 2024
resting comfortable in bed
denies of having any chest discomfort in night
no other issues
Objective Data
-
Labs:
Laboratory Results
02/28/24
03:54
WBC 16.1 H
Hgb 8.4 L
Hct 24.6 L
Plt Count 377
Sodium 133 L
Potassium 4.9
Chloride 96 L
Carbon Dioxide 26
BUN 59 H
Creatinine 7.4 H*
Glucose 128 H
Calcium 9.0
Vital Signs:
Vital Signs
Temp Pulse Resp BP Pulse Ox
98.3 F 78 16 151/61 99
02/28/24 06:43 02/28/24 06:45 02/28/24 06:43 02/28/24 06:45 02/28/24 07:46
I&O
02/27/24 02/28/24 02/29/24
06:59 06:59 06:59
Intake Total 360 / 360 250 / 250
Output Total 150 / 150
Balance 210 / 210 250 / 250
Review of Systems
-
Respiratory: Reports No Symptoms
Cardiac: Reports No Symptoms
Abdomen/GI: Reports No Symptoms
Physical Exam
-
General: No Apparent Distress
HEENT: Negative Oxygen
Respiratory: Clear to Auscultation and Other (Right chest dialysis catheter in place)
Cardiac: S1/S2 and Irregular Rhythm; Negative Murmur or Tachycardic
GI: Soft, Nontender and Nondistended
Musculoskeletal: Other (RUE midline site pressure dressing. Left upper extremity AV fistula site clean - getting HD )
Skin: Negative Rash
Neuro: Awake, Alert, Oriented and Nonfocal/Grossly Intact
Psych: Calm
--- NOTE | 2024-02-28 10:36 | W.PN.ID1 ---
Date of Service
Date of Service: February 28, 2024
Today's Communication
For DC after HD today.
Continue outpatient cefazolin with HD as outlined below.
Assessment / Plan
# Strep mutans bacteremia (2 sets)
- Recent dental work
- Repeat blood cultures negative
- TTE without visualized vegetation.
- Organism sensitive to PCN/ceftriaxone.
- Continue cefazolin
- At time of discharge transition to outpatient cefazolin 2g IV qMo,We and 3g IV qFri with dialysis through 03/18/24 (4 weeks)
manager test faxed abx script to [facility] dialysis.
# ESRD on HD
- 02/27/24 s/p Balloon angioplasty and stent placement of venous anastomotic/central venous stenosis with 10 mm x 4 cm [employer] 635 stent. Balloon angioplasty and stent placement with covered [place] Viabahn 8 mm x 5 cm stent with an AV graft.
-AVG now functioning today
- Should dc HD tunneled catheter if no longer needed.
# Leukocytosis stable
-unclear etiology
no diarrhea or new sxs
# DM
#Additional Past Medical History:
DM2
ESRD on HD via HD catheter
LUE AVG placement 08/2023
CAD s/p CABG s/p stent
Chronic HFpEF
Paroxysmal atrial tachycardia
Anxiety/Depression/ADHD
PAD s/p Left fem-pop bypass
HTN
HLD
Anemia of chronic disease
BPH
RBBB
TIA
FINESSE on CPAP
COPD
lumbar laminectomy/fusion
Multiple foot surgeries
Bilateral ISELA
Chief Complaint
-: Leukocytosis and Bacteremia
Subjective / Review of Systems
The AV graft now in use.
Vital Signs / Physical Exam
Vital Signs
Vital Signs
Temp Pulse Resp BP Pulse Ox
98.3 F 78 16 151/61 99
02/28/24 06:43 02/28/24 06:45 02/28/24 06:43 02/28/24 06:45 02/28/24 07:46
Physical Exam
Constitutional: No Acute Distress and Comfortable
Cardiovascular: Regular Rate and S1/S2
Pulmonary: Clear
Gastrointestinal: Soft, Non Tender and Non Distended
Extremities: Negative Edema
Neurological: AO x 3
Objective Data
Lab Data
Lab Results
02/28/24 03:54
02/28/24 03:54
PT 15.4 Sec (11.4-14.6) H 02/22/24 12:16
INR 1.24 02/22/24 12:16
APTT 38.1 Sec (23.4-35.0) H 02/22/24 12:16
Estimated Creat Clear 9 ml/min 02/28/24 03:54
Lactic Acid Cancelled 02/19/24 13:30
Total Bilirubin 0.7 mg/dl (0.2-1.3) 02/19/24 09:53
AST 28 U/L (17-59) 02/19/24 09:53
ALT 21 U/L (0-50) 02/19/24 09:53
Alkaline Phosphatase 83 U/L (38-126) 02/19/24 09:53
Most recent labs reviewed.
Micro Results:
02/22/24 03:36 Blood Culture - Final
Blood/Venous No Growth - Final Report
02/19/24 11:16 Blood Culture - Final
Blood/Venous Streptococcus species
Gram Stain - Final
02/19/24 09:53 Blood Culture - Final
Blood/Venous Streptococcus species
Gram Stain - Final
02/21/24 05:27 Blood Culture - Final
Blood/Venous No Growth - Final Report
03/29/24 04:27 Blood Culture - Final
Blood/Venous No Growth - Final Report
02/19/24 12:40 MRSA Screen - Final
Nose No Methicillin Resistant Staphylococcus aureus isolated.
02/19/24 09:32 Influenza Types A & B (JAZZMINE) - Final
Nasal Swab Negative for Influenza A & B, NAAT
Negative results must be combined with clinical observations
and patient history.
Nucleic Acid Amplification test (NAAT)performed on the
[employer] platform.
02/18/2024 HD access duplex US: AV graft is patent, average flow volume 1207 mL/min. Mild elevation of peak systolic velocity at the arterial anastomosis, velocity ratio 2.6. Soft tissue hematoma seen on prior ultrasound is no longer seen.
02/19/2024 CXR: no infiltrates
02/19/2024 AXR: Moderate gaseous distention of the stomach. Moderate amount of stool within the colon, mainly in the right colon and transverse colon.
Care Review
Plan reviewed with: Physician (Dr. Briseida Bravo)
--- NOTE | 2024-02-28 11:23 | W.PN.CARDCBS ---
Today's Communication / Plan
-
Outpatient cardiac follow-up to be arranged
Resume Eliquis
Impression / Plan
-
PCP: Dr. Tabor
Cardiology: Dr. Serra
Nephrology: Dr. Anderson
Heme/Onc: Dr. Guzman
Impression:
Presented with fever, N/V
Leukocytosis
Positive blood cultures form 02/19/24
Metabolic encephalopathy
Elevated troponin, suspect nonischemic myocardial injury
Paroxysmal atrial tachycardia
Atypical atrial flutter
CAD
s/p LAD PCI 2005
s/p CABG with GARCIA to LAD, SVG to PDA and SVG to OM 07/05/10
NSTEMI, trop 0.51 during August 2023 admission
s/p 4.0 x 15 mm Xience stent at the ostium of the vein graft 10/24/2023
PAD
s/p left femoral endarterectomy with left femoral-above the knee SFA bypass 04/10/2019
ESRD on HD MWF
Sinus bradycardia with Mobitz 1
DM 2
CML
HTN
Hyperlipidemia
Anemia of chronic disease
BPH
Former smoker
Lexiscan nuclear stress test 04/07/19: fixed inferior, anteroseptal and apical defects, no ischemic, EF 42%
Lexiscan nuclear stress test 10/22/2023: Partially reversible inferolateral, inferior, and apical defect consistent with infarction with ischemia.� Ejection fraction 43% with global hypokinesis.
Echo 07/16/2022: EF 60-65% by Kendall's, but closer to 50% visually, mild MR, no /AI, trace TR with mod PHTN with PAP 45-50 mmHg
Echo 09/21/2023: LVEF 65 to 70% with moderate concentric LVH.� No significant valvular disease.
Echo 02/21/2024: EF 55%, normal regional wall motion, mild conc LVH, normal RV size and function, mild MR, no aortic regurgitation
Plan:
-Paroxysmal atrial flutter/atrial tachycardia with bradycardia arrhythmia
-no further bradycardia or junctional rhythm on tele overnight. Bradycardia occurred on both amiodarone [new] and Coreg, now held
-no recurrences of aflutter noted on tele.
-Discussed with EP, resumed low-dose amiodarone 200 mg daily
-Carvedilol discontinued
-Avoid concomitant use of amiodarone and tizanidine- tizanidine discontinued this admission
-no current need for PPM, but will monitor closely
-Eliquis resumed today
-End-stage kidney disease on dialysis Saturday
-Nephrology following. Currently on dialysis with stable/elevated blood pressures
-Outpatient midodrine discontinued
-Underwent AV fistula repair with stenting of the venous outflow track with vascular 02/27/2024
-Continue plavix. s/p recent stent to VG 09/2023 and 02/27/24
-continue volume mgmt through HD
Hypertension with history of hypotension
-Discontinued midodrine and will monitor blood pressures
- Added amlodipine this admission.
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
-ID following
-Continue IV antibiotics
-repeat blood cultures negative
-TTE without visualized vegetation.
Cardiovascular status is stable for planned discharge today
Outpatient cardiac follow-up to be arranged
HPI: Paramjit is a 68 year old male with PMH of CAD w/ recent PCI of vein graft, PAD, ESRD on HD, atrial tachycardia, DM2, CML, HTN, HLD, anemia, and BPH who presented to [facility] for evaluation after he started with nausea, vomiting, and fever after recent
dental procedure. He had elevated temp of 103.0F on arrival with WBC of 14.4. Covid and flu testing negative. UA without evidence of UTI and chest xray without evidence of pneumonia. He was started on abx for concern of possible dialysis line
infection and reports he has had no vomiting or diarrhea overnight. He did have some chest 'flopping' and palpitations 02/18, EKG revealed atrial tachycardia with HRs up into the 130s. Troponin checked and was mildly elevated at 0.127, trending up to
0.204 and trending down thereafter. He reports ongoing flopping/fluttering sensation in his chest that is unchanged. Cardiology consulted for evaluation given atrial tachycardia with elevated HRs and elevated troponin.
Progress Note - Digital Assistant
Subjective
Date of Service: February 28, 2024
Seen and examined on dialysis. Lying flat and feels comfortable. No chest pain or pressure. No shortness of breath. No further GI complaints.
Objective
Labs:
02/28/24 03:54
02/28/24 03:54
Labs
Hgb 8.4 g/dL (13.0-18.0) L 02/28/24 03:54
Hct 24.6 % (39.0-52.0) L 02/28/24 03:54
Plt Count 377 10^3/uL (130-400) 02/28/24 03:54
PT 15.4 Sec (11.4-14.6) H 02/22/24 12:16
INR 1.24 02/22/24 12:16
APTT 38.1 Sec (23.4-35.0) H 02/22/24 12:16
Sodium 133 mmol/L (135-145) L 02/28/24 03:54
Potassium 4.9 mmol/L (3.5-5.1) 02/28/24 03:54
BUN 59 mg/dl (9-20) H 02/28/24 03:54
Creatinine 7.4 mg/dL (0.7-1.3) H* 02/28/24 03:54
Glucose 128 mg/dl (70-99) H 02/28/24 03:54
Troponins
02/27/24
09:56
Troponin I < 0.012
Vital Signs and I&O:
Vital Signs
Temp Pulse Resp BP Pulse Ox
98.3 F 78 20 151/61 97
02/28/24 11:20 02/28/24 06:45 02/28/24 11:20 02/28/24 06:45 02/28/24 11:20
Vital Signs
Temp Pulse Resp BP Pulse Ox
98.3 F 78 20 151/61 97
02/28/24 11:20 02/28/24 06:45 02/28/24 11:20 02/28/24 06:45 02/28/24 11:20
Intake & Output
02/26/24 02/27/24 02/28/24 02/29/24
06:59 06:59 06:59 06:59
Intake Total 660 / 660 360 / 360 250 / 250
Output Total 100 / 100 150 / 150
Balance 560 / 560 210 / 210 250 / 250
Physical Exam
Physical Exam
General: No acute distress, AAOX3
Heart: Regular, positive S1/S2, no murmur
Lungs: CTA b/l, negative wheezes/rales/rhonchi
Abd: Positive BS, NT/ND, neg rebound/rigidity/guarding
Ext: No edema. Left upper extremity fistula with dressing
Neuro: nonfocal
[2024-02-28 11:26] LABS: Glucose - Point of Care 108 mg/dl (70-99)
[2024-02-28] MEDS: PACERONE 200 MG PO (12:02)
[2024-02-28] MEDS: SENOKOT-S 1 TABLET PO (12:02)
[2024-02-28] MEDS: PLAVIX 75 MG PO (12:03)
[2024-02-28] MEDS: ZETIA 10 MG PO (12:03)
[2024-02-28] MEDS: NEPHROCAP 1 CAPSULE PO (12:03)
[2024-02-28] MEDS: RITALIN 30 MG PO (12:03)
[2024-02-28] MEDS: PROTONIX 40 MG PO (12:03)
[2024-02-28] MEDS: ZOLOFT 200 MG PO (12:03)
[2024-02-28] MEDS: NORVASC PO (12:04)
[2024-02-28] MEDS: MIRALAX PO (12:04)
[2024-02-28] MEDS: PHOSLO 667 MG PO ×2 (12:05→17:26)
[2024-02-28] MEDS: ANCEF 15 MG IV (12:05)
--- NOTE | 2024-02-28 12:08 | W.PN.NEPH.HD ---
Assessment
-
pt seen during HD
vitals stable
BP stable off midodrine, ok to keep off and use prn only
UF as tolerates
AVG accessed worked well initially but later A line pressures increased
able to complete HD
d/w vasc Dr Atkinson-will try access again at out pt unit on Saturday
keep CVC catheter still
abx per ID
ok to d/c today per renal
Progress Note - Hemodialysis
-
Date of Service: February 28, 2024
Duration: 30 minutes and 3 hours
Potassium Bath: 2
Calcium Bath: 2.5
Opti-Dialyzer: 160
Ultrafiltration: Other (2-2.5kg)
Blood Flow: 400
Dialysate Flow: 600
Heparin: no
EPO: [id number]
[2024-02-28] MEDS: ROCEPHIN IV (12:11)
[2024-02-28] MEDS: STERILE WATER FOR INJECTION IV (12:11)
--- NOTE | 2024-02-28 13:06 | CM ---
Reviewed chart. Met with Mr. Banuelos to reviw discharge plans. He states he feel well and maybe able to go home soon. [facility] and [facility]. He states his spouse will pick him after she is
done work today at 6:15 p.m. Prior to admission he resides with his spouse in a two story home with a step and ramp to enter. He has a first floor set-up. He ambulated 200 feet with a rolling walker and supervision. He does to [facility] on Saturday, Saturday and Saturday at 6:[address] himself to dialysis. Medical work-up in progress. The discharge plan is to return home with his spouse, outpatient dialysis at [facility] when medically [facility].
[2024-02-28 17:23] LABS: Glucose - Point of Care 166 mg/dl (70-99)
[2024-02-28] MEDS: TYLENOL 650 MG PO (17:26)
[2024-02-28] MEDS: NOVOLOG FLEXPEN-LOW RESISTANCE 1 UNITS SC (17:26)
--- NOTE | 2024-02-28 19:00 | PTCARENOTE ---
Pt had HD treatment via left arm fistula without problem. Pt seen by Drs. Reynolds and Alexander. Right arm midline IV device removed by IV team. Central venous dialysis catheter remains in place per . Telemetry discontinued. Discharge
instructions reviewed with pt regarding medications and their possible side effects, activity and driving guidelines, reporting cares and concerns and follow up appt's. Good understanding verbalized. Pt escorted out via wheelchair and discharged to
home.
--- NOTE | 2024-03-01 07:47 | W.DCSUMMARY ---
Discharge Summary
Discharge Data
Date of Admission: 02/19/24
Date of Discharge: 02/28/24
-
Pending Results: No
Hospital Course
Discharging Physician : Dr Ck Bravo
Disposition : To home with Home health
Primary care physician : Dr Placido Lora Jr.
Principal Discharge diagnosis :
Sepsis from Streptococcus mutans bacteremia
Paroxysmal atrial tachycardia/flutter
Hyperkalemia
Nausea and vomiting
Severe constipation
Left arm AV fistula malfunction requiring stenting
Bradycardia from medication
Chronic Discharge diagnosis :
End-stage renal disease on hemodialysis
Coronary disease with history of bypass
Anemia of chronic renal disease
Peripheral arterial disease with history of stent/bypass
Type 2 diabetes
Essential hypertension
Secondary/tertiary hyperparathyroidism
Anxiety/depression
Chronic back pain
Attention deficit hyperactivity disorder
Hospital Course :
68-year-old male with above-mentioned past medical history came to ER for having new onset of nausea vomiting and generalized fatigue. No reported blood in vomitus. Laboratory evaluation in ER showing patient having significant hyperkalemia.
Nephrology was involved in care and patient required emergent round of hemodialysis. Patient also having new onset of fever episodes and was initially felt to be related to viral gastroenteritis. Blood cultures were collected in ER which later
grew gram-positive cocci on both sets. Patient was started on empiric antibiotic and ID was involved in care. Patient grew organism was unable to be identified by microbiology lab and needed to be sent to [facility] lab. Organism was later
identified as Streptococcus mutans. Patient had an echocardiogram which ruled out any infective endocarditis. Repeat blood culture was negative for any growth. At discharge ID recommended patient to be maintained on IV cefazolin 2 g Saturday
Saturday and 3 g Saturday after dialysis. Case management faxed antibiotic prescription to [facility] dialysis on dialysis center.
Patient was also noted to having left arm AV fistula dysfunction. Dialysis staff was able to cannulate fistula although on initiation of dialysis and no good blood flow to able to get dialysis. Vascular surgery was involved in care and initiation
suggestive of patent fistula. Unfortunately dialysis staff continued to have a difficult time using fistula. A follow-up CTA left upper extremity was done which showed venous outflow tract stenosis. Vascular surgeon took patient to the OR with 2
stents placed in venous outflow track after which patient was able to be dialyzed through fistula without problem. Currently patient have right chest tunneled catheter for dialysis which eventually will need to be removed to prevent further
bacteremia.
Patient also had new diagnosis of paroxysmal atrial tachycardia/flutter and cardiology was involved in care. Patient was on diltiazem drip and later transitioned to amiodarone and Coreg. Patient developed significant bradycardia at one point and
patient was taken off of both medication. After improvement of this bradycardia patient was started back on amiodarone low-dose. Patient also started on Eliquis for anticoagulation.
Patient nausea and vomiting was felt to be related to constipation. No other complicating factor and after aggressive bowel regimen resolved without further issues.
Important imaging findings :
None
Procedure findings :
Vascular procedure note on 02/27/24
1. The left upper extremity fistulogram and central venogram.
2. Balloon angioplasty and stent placement of venous anastomotic/central venous stenosis with 10 mm x 4 cm [employer] 635 stent.
3. Balloon angioplasty and stent placement with covered [employer] 8 mm x 5 cm stent with an AV graft.
4. Supervision and interpretation.
Discharge Plan
-
Patient Disposition: Custodial/SNF
Discharge Diagnosis/Procedures: Streptococcus mutans bacteremia, Left arm AV fistula stenosis s/p stenting, Atrial tachycardia/flutter
Condition: Fair
Diet: 2 Gram Sodium and Other diet
Additional Diets: Low Potassium diet
Activity: As tolerated
Driving Restrictions: No driving
Bathing Restrictions: OK to Shower
Other Services: VN and PT
Referrals:
[facility] [Outside]
Placido Lora Jr., [Family Provider] - in one week
Tai Serra MD [Active] - 03/23/24 11:20 am (You have a cardiology follow up appointment at the [place] office. Please call with questions. )
Fantasma Atkinson MD [Active] - 03/31/24 11:45 am
Additional Discharge Medication Instructions: Stopping Aspirin - you have been started on eliquis. Stopping coreg - heart rate slows down, started on norvasc.
Prescriptions:
New
Eliquis 5 mg Tablet
5 mg PO BID Qty: 60 0RF
amiodarone [Pacerone] 200 mg Tablet
200 mg PO DAILY Qty: 30 2RF
amlodipine 2.5 mg Tablet
2.5 mg PO BID Qty: 60 2RF
Continued
melatonin 5 MG tablet
5 mg PO HS
atorvastatin 80 MG tablet
80 mg PO HS
lorazepam 1 MG tablet
1 mg PO TIDPRN PRN (Reason: ANXIETY)
Patient Comments:
10/28/2023, patient filled this medication on 09/28/2023 for 90 tablets according to PDMP.
methylphenidate HCl 10 mg Tablet
30 mg PO DAILY
Hold Instructions: Resume on 11/15/23. Discuss with your primary care provider before resuming this medication.
Patient Comments:
10/28/2023, patient filled this medication on 10/21/2023 for 270 tablets according to PDMP.
lidocaine-prilocaine 2.5-2.5 % Cream
1 applic TOPICAL DAILYPRN PRN (Reason: PORT )
Rx Instructions:
apply to access site 30 minutes before dialysis.
ezetimibe [Zetia] 10 mg Tablet
10 mg PO DAILY
cetirizine [Zyrtec] 10 mg Tablet
10 mg PO DAILY
sertraline 100 mg Tablet
200 mg PO DAILY
clopidogrel [Plavix] 75 mg Tablet
75 mg PO DAILY
fexofenadine 180 mg Tablet
180 mg PO DAILY
Nephro-Michelle 0.8 mg Tablet
1 tab PO MOWEFR
coQ10 (ubiquinol) 200 mg Capsule
200 mg PO DAILY
calcium acetate 667 mg Tablet
667 mg PO AC
Ozempic 0.25 mg or 0.5 mg (2 mg/3 mL) Pen Injector
0.25 mg SC GRIMM
hydrocodone-acetaminophen 5-325 mg Tablet
1 tab PO BIDPRN PRN (Reason: SEVERE PAINS)
tizanidine 4 mg Tablet
4 mg PO QID
Discontinued
carvedilol [Coreg] 25 MG tablet
25 mg PO BID
aspirin 81 MG tablet,delayed release (DR/EC)
81 mg PO DAILY Qty: 0 0RF
Discharge Orders:
Discharge Patient (As Directed); Ordered 02/28/24
Ordered By: Ck Bravo
Care Plan Goals
Care Plan Goals:
Problem: Readiness for enhanced knowledge related to diagnosis and treatment plan
Goal: Understand your diagnosis and treatment plan needs, including medications if applicable.
Instructions: Know your diagnosis, underlying causes and treatment plan options, including medications if applicable. Consult with your health care team to learn about your diagnosis and treatment plan, including medications if applicable.
Discharge Date and Time
Discharge Date/Time: 02/28/24 18:30
Print Language: ICELANDIC
== END 2024-02-28 18:30 | disposition home health service (06) | DRG 853 ==
LOC: IVU 11:38
PROVIDERS: Internal Medicine; Nurse Practitioner Family; Nurse Practitioner Gerontology; Specialist; ADMITTING PHYSICIAN Hospitalist; ATTENDING PHYSICIAN Hospitalist; CONSULT PHYSICIAN Specialist; CONSULT PHYSICIAN Surgery Vascular Surgery; EMERGENCY PHYSICIAN Emergency Medicine; FAMILY PHYSICIAN Family Medicine; OTHER PHYSICIAN Internal Medicine Cardiovascular Disease; OTHER PHYSICIAN Internal Medicine Infectious Disease
PROC: 5A1D70Z Performance of Urinary Filtration, Intermittent, Less than 6 Hours Per Day (ICD-10-PCS; 2024-02-19)
PROC: 30233N1 Transfusion of Nonautologous Red Blood Cells into Peripheral Vein, Percutaneous Approach (ICD-10-PCS; 2024-02-24)
PROC: B51W1ZZ Fluoroscopy of Dialysis Shunt/Fistula using Low Osmolar Contrast (ICD-10-PCS; 2024-02-27)
PROC: 05WY37Z Revision of Autologous Tissue Substitute in Upper Vein, Percutaneous Approach (ICD-10-PCS; 2024-02-27)
DX: A40.8 Other streptococcal sepsis (principal); G93.41 Metabolic encephalopathy; N18.6 End stage renal disease; R57.0 Cardiogenic shock; I13.2 Hypertensive heart and chronic kidney disease with heart failure and with stage 5 chronic kidney disease, or end stage renal disease; I50.32 Chronic diastolic (congestive) heart failure; N25.81 Secondary hyperparathyroidism of renal origin; D84.89 Other immunodeficiencies; C92.11 Chronic myeloid leukemia, BCR/ABL-positive, in remission; T82.858A Stenosis of other vascular prosthetic devices, implants and grafts, initial encounter; I47.19 Other supraventricular tachycardia; I48.4 Atypical atrial flutter; I5A Non-ischemic myocardial injury (non-traumatic); D62 Acute posthemorrhagic anemia; F11.20 Opioid dependence, uncomplicated; Y84.1 Kidney dialysis as the cause of abnormal reaction of the patient, or of later complication, without mention of misadventure at the time of the procedure; E87.5 Hyperkalemia; I25.10 Atherosclerotic heart disease of native coronary artery without angina pectoris; F32.A Depression, unspecified; F41.9 Anxiety disorder, unspecified; F90.9 Attention-deficit hyperactivity disorder, unspecified type; E78.00 Pure hypercholesterolemia, unspecified; E11.22 Type 2 diabetes mellitus with diabetic chronic kidney disease; D63.1 Anemia in chronic kidney disease; E11.51 Type 2 diabetes mellitus with diabetic peripheral angiopathy without gangrene; G47.33 Obstructive sleep apnea (adult) (pediatric); E83.39 Other disorders of phosphorus metabolism; N40.1 Benign prostatic hyperplasia with lower urinary tract symptoms; R39.15 Urgency of urination; R00.1 Bradycardia, unspecified; T46.2X5A Adverse effect of other antidysrhythmic drugs, initial encounter; T44.7X5A Adverse effect of beta-adrenoreceptor antagonists, initial encounter; I25.2 Old myocardial infarction; K59.00 Constipation, unspecified; E11.42 Type 2 diabetes mellitus with diabetic polyneuropathy; J44.9 Chronic obstructive pulmonary disease, unspecified; E66.9 Obesity, unspecified; G89.29 Other chronic pain; M54.9 Dorsalgia, unspecified; Z11.52 Encounter for screening for COVID-19; Z68.29 Body mass index [BMI] 29.0-29.9, adult; Z79.02 Long term (current) use of antithrombotics/antiplatelets; Z79.82 Long term (current) use of aspirin; Z79.84 Long term (current) use of oral hypoglycemic drugs; Z79.899 Other long term (current) drug therapy; Z86.73 Personal history of transient ischemic attack (TIA), and cerebral infarction without residual deficits; Z87.820 Personal history of traumatic brain injury; Z87.891 Personal history of nicotine dependence; Z95.1 Presence of aortocoronary bypass graft; Z95.5 Presence of coronary angioplasty implant and graft; Z99.2 Dependence on renal dialysis
CPT/HCPCS: 36903; 36908; 71045; 73206; 74018; 76937; 80048; 80051; 80053; 80202; 81003; 81015; 82962; 83036; 83605; 83735; 84145; 84484; 85014; 85018; 85025; 85027; 85610; 85730; 86850; 86900; 86901; 86920; 87040; 87070; 87149; 87205; 87502; 87811; 93005; 93306; 94640; 96374; 96375; 97116; 97163; 97166; 99284; C1725; C1769; C1874; C1876; C1894; G0257; P9016; P9047; Q5106; Q9967

== ENCOUNTER 2024-03-12 23:22 | Observation (INO) | payer MEDICARE, OTHER, SELFPAY ==
[2024-03-12] VITALS (10 sets, daily range): BP systolic 162–193; BP diastolic 68–83; BMI 30.1
[2024-03-12 16:50] LABS: % Basophils 0.3 % (0-2); % Eosinophils 2.2 % (0-6); % Immature Granulocytes 1.7 % (0-0.5); % Lymphocytes 12.8 % (20.5-51.1); % Monocytes 6.8 % (1.7-9.3); % Neutrophils 76.2 % (42.2-75.2); Absolute Eosinophils 0.2 10^3/uL (0-0.7); Absolute Immature Granulocytes 0.2 10^3/uL (0-0.05); Absolute Lymphocytes 1.2 10^3/uL (1.2-3.4); Absolute Monocytes 0.6 10^3/uL (0.1-0.6); Absolute Neutrophils 7.1 10^3/uL (1.4-6.5); Hematocrit 27.2 % (39.0-52.0); Mean Corp Hgb Conc. 33.1 g/dL (33.0-37.0); Mean Corpuscular Hgb 33.3 pg (27.0-31.0); Mean Corpuscular Volume 100.7 fL (80.0-94.0); Mean Platelet Volume 10.4 fL (7.4-10.4); Nucleated Red Blood Cells % 0 % (-); Platelet Count 218 10^3/uL (130-400); Red Cell Dist. Width 18.4 % (11.5-14.5); White Blood Cell Count 9.4 10^3/uL (4.8-10.8)
[2024-03-12 17:14] LABS: ALT (SGPT) 48 U/L (0-50); Albumin 4.6 g/dl (3.5-5.0); Alkaline Phosphatase 138 U/L (38-126); Blood Urea Nitrogen 37 mg/dl (9-20); Calcium 9.5 mg/dl (8.4-10.2); Carbon Dioxide 29 mmol/L (22-30); Chloride 89 mmol/L (98-107); Glucose 113 mg/dl (70-99); Potassium 4.4 mmol/L (3.5-5.1); Sodium 134 mmol/L (135-145); Total Bilirubin 0.9 mg/dl (0.2-1.3); Total Protein 7.9 g/dl (6.3-8.2); eGFR 10.66
[2024-03-12 17:41] LABS: AST (SGOT) 1468 U/L (17-59)
--- NOTE | 2024-03-12 19:13 | ED.GENMED ---
History of Present Illness
General
Chief Complaint: Weakness
Source: patient, records, spouse and physician (Primary physician who called ahead)
Exam Limitations: none
Time Seen by Provider: 03/12/24 18:26
Nursing documentation reviewed up to this point in time: agreed with
Travel History
Have you had any contact with someone who has COVID-19?: No
Do you have any symptoms of coronavirus? Fever > 100 degrees, chills, cough, shortness of breath, sore throat, loss of taste or smell, muscle aches, or headache?: No
History of Present Illness
History of Present Illness:
68-year-old male with a past medical history of hypertension, hyperlipidemia, diabetes, ESRD on dialysis (M/W/F schedule, last session was yesterday), history of prior stroke, obesity, FINESSE, CAD status post stents, atrial fibrillation on Eliquis who
presents to the emergency department accompanied by his from home for evaluation of generalized weakness, multiple falls and episodes of confusion over the past few days. Patient was notably admitted to this hospital 02/19/2024 until
02/28/2024�he was admitted with sepsis secondary to strep mutations bacteremia, new onset of atrial tachycardia/flutter and was started on Eliquis, left upper extremity fistula dysfunction requiring vascular surgery intervention with stenting. He was
discharged home with home health aide visiting. Since returning home patient says that he has had profound weakness to the point that walking is extremely difficult. He has had multiple falls where he lowered himself to the ground because his legs
feel weak underneath him. He has had no serious injuries from the falls fortunately and denies any head strikes. His has noticed that over the past few days he will have episodes where he seems somewhat confused and disoriented. This
constellation of symptoms prompted evaluation by PCP via telehealth and patient was ultimately referred to the emergency room for further assessment. Patient reports a mild headache here and severe generalized weakness. He denies any neck pain.
He reports chronic low back pain which is unchanged. He denies any chest pain. He has not noticed any shortness of breath. He has not noticed any recent cough, fever, chills, URI type symptoms. He has not had any diarrhea and in fact has been
constipated for the past few days. No nausea or vomiting. No abdominal pain. He does still make a small amount of urine and has not had any dysuria or change in frequency. He denies any other complaints.
Past History
Past History
ED Past Medical History: CAD, Cancer (CML), HTN, Hypercholesterolemia, NIDDM, Renal failure (stage 3), Other (Peripheral artery disease, left femoropopliteal bypass), Other (subdural hematoma) and Other (R foot ulcer; FINESSE; obesity)
ED Past Surgical History: Cardiac and Other (L femoral endarterectomy, popliteal angioplasty)
Social History
Tobacco: Smoker
Alcohol: None
Drug: Marijuana
Personal:
Living: with family
Employment: Disabled
Family History
Family History: Diabetes and Other (reviewed and non-contributory)
Review of Systems
Review of Systems
All Other Systems: ROS reviewed and negative except as documented in HPI and ROS
Constitutional: Reports fatigue; Denies fever or chills
EENT: Denies sore throat or runny nose
Respiratory: Denies cough or trouble breathing
Cardiac: Denies chest pain or palpitations
ABD/GI: Reports constipated; Denies abdominal pain, nausea, vomiting or diarrhea
: Denies dysuria, frequency or flank pain
Musculoskeletal: Reports back pain (Chronic); Denies joint pain or neck pain
Neurological: Reports headache and weakness (Severe generalized); Denies dizzy or numbness
Phy Exam
Physical Exam
Physical Exam:
General: Awake, alert, oriented x3; no acute distress
Head: Normocephalic, atraumatic
Eyes: Conjunctiva normal, EOMI, pupils equal round and reactive to light bilateral
Throat: Airway intact, handling secretions
Neck: Trachea midline, no cervical spine tenderness
Back: No signs of trauma to the back or flank and no tenderness in thoracic or lumbar spine
Lungs: Clear to auscultation bilaterally, no wheezing, rales, rhonchi
Heart: Regular rate and rhythm, no murmurs, gallops, or rubs
Abd: Soft, non distended, nontender
Neuro: Cranial nerves grossly intact, speech fluid, motor and sensory function intact in all extremities
Skin: Bruising near fistula on left upper extremity
Extremities: Patient has bruising in left upper extremity near fistula; rest of extremities are atraumatic and he can move all extremities including his left upper extremity through full comfortable range of motion without significant pain; he has
good pulses in all extremities
Scores
Heart Failure Risk
Heart Failure Risk Score: Not Applicable
Heart Score for Chest Pain Patients
STEMI patient?: Not applicable
Withdrawal Assessment of Alcohol
Withdrawal Assessment Completed?: Not applicable
Course
Orders/Labs/Results
Orders:
Orders
03/12/24 16:27
EKG [Electrocardiogram (*1)] Urgent
Reason for Study: Fatigue / Weakness
03/12/24 16:28
EKG- Treatment ONCE
03/12/24 16:37
CBC/With Diff [Complete Blood Count/With Diff] Urgent
CMP [Comprehensive Metabolic Panel] Urgent
Lipase Urgent
Comment: ADD ON
03/12/24 18:28
CT Head W/o Iv Contrast Urgent
Comment:
Reason For Exam: weakness, confusion, multiple falls
03/12/24 18:29
CR Chest - 2 Views Urgent
Comment:
Reason For Exam: weakness, eval for pna
03/12/24 18:59
COVID-19 Antigen Urgent
Source: Nasal Swab
CPK [Creatine Phosphokinase] Urgent
Influenza A+B Rapid Molecular Urgent
PETRA Source: Nasal Swab
Specimen Description:
03/12/24 19:18
Blood Culture Q30M
PETRA Source: Blood/Venous
Specimen Description:
03/12/24 19:26
Add On- LAB Urgent
Tests Added?: lipase
03/12/24 19:56
Blood Culture Q30M
PETRA Source: Blood/Venous
Specimen Description:
03/12/24 20:38
Urinalysis Reflex To Culture Urgent
Date Specimen was Collected: 03/12/24
Time Specimen was Collected: 20:36
Urine Microscopic Reflex Cult Urgent
03/12/24 20:54
Case Management Consult ONCE
Case Management Consult: Other
Comment: SNF/rehab for deconditioning
PT Consult [Pt Eval And Treat] Urgent
Activity Level: Ambulate
Abnormal Lab Results
03/12/24 03/12/24 03/12/24
16:37 18:59 20:38
RBC 2.70 L 10^6/uL
(4.70-6.10)
Hgb 9.0 L g/dL
(13.0-18.0)
Hct 27.2 L %
(39.0-52.0)
MCV 100.7 H fL
(80.0-94.0)
MCH 33.3 H pg
(27.0-31.0)
RDW 18.4 H %
(11.5-14.5)
Abs Immat Gran (auto) 0.2 H 10^3/uL
(0-0.05)
Absolute Neuts (auto) 7.1 H 10^3/uL
(1.4-6.5)
Immature Gran % 1.7 H %
(0-0.5)
Neutrophils % 76.2 H %
(42.2-75.2)
Lymphocytes % 12.8 L %
(20.5-51.1)
Sodium 134 L mmol/L
(135-145)
Chloride 89 L mmol/L
(98-107)
BUN 37 H mg/dl
(9-20)
Creatinine 5.5 H* mg/dL
(0.7-1.3)
Glucose 113 H mg/dl
(70-99)
AST 1468 H* U/L
(17-59)
Alkaline Phosphatase 138 H U/L
(38-126)
Creatine Kinase 43 L U/L
(55-170)
Urine Albumin (Reflex) 2+ A
(Neg - Trace)
03/12/24 16:37
03/12/24 16:37
Vital Signs
Initial and Last Documented VS:
Initial Vital Signs
Temp Pulse Resp BP Pulse Ox
36.7 C 82 18 171/83 99
03/12/24 16:29 03/12/24 16:29 03/12/24 16:29 03/12/24 16:29 03/12/24 16:29
Last Documented Vital Signs
Temp Pulse Resp BP Pulse Ox
36.8 C 83 16 182/77 100
03/12/24 18:52 03/12/24 18:52 03/12/24 18:52 03/12/24 18:52 03/12/24 18:52
MDM/Problems Addressed
Differential Diagnosis Includes:
Physical deconditioning, symptomatic anemia, electrolyte derangement, infection including UTI/pneumonia/bacteremia, viral syndrome
MDM/Problems Addressed:
68-year-old male with extensive medical history as above presents for evaluation of generalized weakness resulting in multiple falls after recent hospitalization; also has noticed occasional episodes of confusion/disorientation. He denies any
head strike during the falls or serious injuries. Vitals are significant for hypertension but otherwise unremarkable. Physical exam as above. Plan to place an IV check labs including CBC and CMP, blood cultures, CPK. Will check viral swabs.
Will check urinalysis and chest x-ray. Will send for CT head given multiple falls and anticoagulation, reported intermittent confusion. Check an EKG. Monitor closely reassess after the above.
CT head negative for any acute pathology. Initial labs reviewed: CBC shows stable anemia 9.0. CMP shows creatinine of 5.5 in keeping with known ESRD. Interestingly his AST is significantly elevated at 1468 with normal T. bili, normal ALT and only
marginally elevated alk phos. Added on lipase. Discussed with GI�rhabdomyolysis can occasionally cause isolated AST elevation with CPK is pending. Suspect patient will require admission at minimum for placement in rehab as a suspect
deconditioning is playing a large role in his severe generalized weakness and recent multiple falls. Will plan for admission pending rest of initial workup.
Chronic conditions affecting care:
ESRD which impacts almost every aspect of his care, atrial fibrillation requiring anticoagulation which complicates his multiple falls
Acute Exacerbation and/or Progression of Chronic Illness:
Acute hypertensive
Acute Exacerbation and/or Progression of Chronic Illness: HTN
*Radiology
Radiology exam reviewed: radiology read reviewed
*Pulse Oximetry
Patient hypoxic: no
*EKG
Interpreted by ED Provider?: Yes
Heart Rate: 78
Rate: normal
Rhythm: sinus
[place]: normal axis
Interval: long QT
QRS Pattern: right bundle branch block
Ischemia: non-specific ST changes
*Critical Care Note
Total Time (30-74mins, 75-104mins- exclusive of procedures): Not Applicable
Data Reviewed
Review of Other/Old Records Reveals: Labs, Records, Testing and Discharge Summary
Source: patient, records and spouse
Patient Management
Discussion with other providers: Hospitalist (Discussed with hospitalist), PCP (Discussed with PCP who called ahead) and Compliance Paralegal (Discussed with gastroenterology)
Escalation/DeEscalation of care consider admission/obs:
Admission indicated
ED Attending Note
-
Portions of this chart may have been created with voice recognition software.� Occasional wrong word or��sound alike� substitutions may have occurred due to the inherent limitations of voice recognition software.
Discharge Plan
Departure
Patient Disposition: Admit
Date of Disposition: 03/12/24
Time of Disposition: 20:59
Admit to doctor: Jose
Presentation/result/management discussed w/ accepting MD/DO: Hospitalist
Discharge Problem:
Physical deconditioning, Multiple falls, Abnormal LFTs
Prescriptions:
No Action
melatonin 5 MG tablet
5 mg PO HS
atorvastatin 80 MG tablet
80 mg PO HS
lorazepam 1 MG tablet
1 mg PO TIDPRN PRN (Reason: ANXIETY)
Patient Comments:
10/28/2023, patient filled this medication on 09/28/2023 for 90 tablets according to PDMP.
methylphenidate HCl 10 mg Tablet
30 mg PO DAILY
Hold Instructions: Resume on 11/15/23. Discuss with your primary care provider before resuming this medication.
Patient Comments:
10/28/2023, patient filled this medication on 10/21/2023 for 270 tablets according to PDMP.
lidocaine-prilocaine 2.5-2.5 % Cream
1 applic TOPICAL DAILYPRN PRN (Reason: PORT )
Rx Instructions:
apply to access site 30 minutes before dialysis.
ezetimibe [Zetia] 10 mg Tablet
10 mg PO DAILY
cetirizine [Zyrtec] 10 mg Tablet
10 mg PO DAILY
sertraline 100 mg Tablet
200 mg PO DAILY
clopidogrel [Plavix] 75 mg Tablet
75 mg PO DAILY
Nephro-Michelle 0.8 mg Tablet
1 tab PO MOWEFR
coQ10 (ubiquinol) 200 mg Capsule
200 mg PO DAILY
calcium acetate 667 mg Tablet
667 mg PO AC
Ozempic 0.25 mg or 0.5 mg (2 mg/3 mL) Pen Injector
0.25 mg SC GRIMM
tizanidine 4 mg Tablet
4 mg PO QIDPRN PRN (Reason: muscle spams)
Eliquis 5 mg Tablet
5 mg PO BID Qty: 60 0RF
amiodarone [Pacerone] 200 mg Tablet
200 mg PO DAILY Qty: 30 2RF
amlodipine 2.5 mg Tablet
2.5 mg PO BID Qty: 60 2RF
hydrocodone-acetaminophen 5-325 mg Tablet
1 tab PO BIDPRN PRN (Reason: severe pain)
cefazolin 2 gram Recon Soln
2 g IM MOWEFR
Referrals:
Placido Lora Jr., DO [Family Provider] -
Interventions
Interventions:
*Risk Screen - Suicide Last Done: 03/12/24 16:29
*General Assessment Last Done: 03/12/24 16:29
*Neglect/Abuse Screening Last Done: 03/12/24 16:29
*ED COVID-19 Vaccine History Last Done: 03/12/24 16:29
ED- Cardiac Assessment Last Done: 03/12/24 18:55
ED- Neurological Assessment Last Done: 03/12/24 18:55
ED- Pulmonary Assessment Last Done: 03/12/24 18:55
Discharge Date and Time
Print Language: MAURITANIAN
[2024-03-12 19:25] LABS: COVID-19 Antigen Negative (Negative)
[2024-03-12 19:34] LABS: Creatine Phosphokinase 43 U/L (55-170)
[2024-03-12 20:41] LABS: Lipase 128 U/L (23-300)
[2024-03-12 20:45] LABS: Urine Albumin 2+ (Neg - Trace); Urine Bilirubin Negative (Negative); Urine Character Clear (Clear); Urine Color Yellow; Urine Glucose Negative (Negative); Urine Ketone Negative (Negative); Urine Leukocyte Negative (Negative); Urine Nitrite Negative (Negative); Urine Occult Blood Negative (Negative); Urine Specific Gravity 1.015 (<1.030); Urine Urobilinogen Negative (Neg - 1+)
[2024-03-12 21:11] LABS: Urine Mucus Few
[2024-03-12 21:12] LABS: Urine Bacteria Few (Negative); Urine Red Blood Cell 0-2 /HPF (0-2); Urine White Cell 0-2 /HPF (0-5)
[2024-03-12] MEDS: ROXICODONE 5 MG PO (22:02)
[2024-03-12 23:05] LABS: Troponin I 0.017 ng/ml
--- NOTE | 2024-03-12 23:08 | HPS.HSE ---
Family Physician
-
Family Physician: Placido Lora Jr.
Chief Complaint
-
Weakness / Falls
History of Present Illness
Patient is a 68y M with PMH significant for ASCVD, hypertension, DM-II and ESRD on HD who presents to ED complaining of weakness and falls. Patient was recently admitted to 02/18 - 02/28/24 secondary to bacteremia and atrial fibrillation.
Patient was discharged on newly added amiodarone 200mg daily and Ancef IV with HD sessions. No specific source of the Strep bacteremia was identified. Patient has R IJ HD catheter and UE AV graft in place. LUE AV graft was also stented during
that admission.
Patient states that since his discharge he has been having difficulty ambulating. He has a long history of ambulatory dysfunction, lower extremity weakness and peripheral neuropathy. Patient states that he has fallen 2-3 times in the past week.
he also states that he has been somewhat confused and occasionally 'loses his train of thought'.
He denies any chest pain, palpitations, cough, fevers / chills, N/V/D, etc.
He is on HD and has not missed any sessions.
Medical History
Past Medical History
Past Medical History: Reports Other
Additional Past Medical History:
ASCVD (CAD, PAD, Carotid Disease, CVA / TIA)
ESRD on HD
Anxiety/Depression/ADHD
Hypertension
Pulmonary Hypertension
Dyslipidemia
DM-II
Anemia of chronic disease
BPH
RBBB
Chronic HFpEF
Paroxysmal atrial fibrillation
Past Surgical History: Reports Other
Additional Past Surgical History:
Trigger Finger Surgeries
Lumbar Laminectomy / Fusion
Left Femoral Endarterectomy
Left SFA / Popliteal Angioplasty
Left Fem-Pop Bypass
Right SFA / Popliteal Angioplasty
Right ISELA
Left ISELA
Right Shoulder Surgery
CABG x 3
PTCA with Stent
Multiple Foot Surgeries
LUE AVG Placement
Social History
Tobacco: Former Smoker (1-1.5ppd for 30+ years. )
Alcohol: None
Personal:
Living: With Family
Family History
Family History: Not pertinent
Allergies / Home Medications
Allergies reflects when Allergies were last updated in [facility].
Home Medications with original date entered in [facility]
Allergy/Medication List:
Allergies
Allergy/AdvReac Type Severity Reaction Status Date / Time
latex Allergy Itching- Verified 02/19/24 09:09
pt
declines
having
this
allergy
morphine Allergy Itching- Verified 02/19/24 09:09
pt
declines
having
this
allergy
Home Medications
melatonin 5 mg tablet 5 mg PO HS sleep 04/06/19
carvedilol 25 mg tablet (Coreg) 25 mg PO BID Heart disease/condition 05/18/20
atorvastatin 80 mg tablet 80 mg PO HS High cholesterol 01/25/21
aspirin 81 mg tablet,delayed release 81 mg PO DAILY Blood clot prevention/tx ##0 02/09/21
lorazepam 1 mg tablet 1 mg PO TIDPRN PRN ANXIETY 09/11/22
lidocaine-prilocaine 2.5 %-2.5 % topical cream 1 applic topical DAILYPRN PRN PORT 10/28/23
methylphenidate HCl 10 mg tablet 30 mg PO DAILY Neurological Condition 10/28/23
ezetimibe 10 mg tablet (Zetia) 10 mg PO DAILY High Cholesterol 11/14/23
calcium acetate 667 mg tablet 667 mg PO AC Kidney Disease 02/19/24
cetirizine 10 mg tablet (Zyrtec) 10 mg PO DAILY Allergies 02/19/24
clopidogrel 75 mg tablet (Plavix) 75 mg PO DAILY Blood Clot Prevention/Tx 02/19/24
coQ10 (ubiquinol) 200 mg capsule 200 mg PO DAILY Supplement 02/19/24
fexofenadine 180 mg tablet 180 mg PO DAILY Allergies 02/19/24
hydrocodone 5 mg-acetaminophen 325 mg tablet 1 tab PO BIDPRN PRN SEVERE PAINS 02/19/24
semaglutide 0.25 mg or 0.5 mg (2 mg/3 mL) subcutaneous pen injector (Ozempic) 0.25 mg SC GRIMM Diabetes 02/19/24
sertraline 100 mg tablet 200 mg PO DAILY Mental Health 02/19/24
vitamin B complex-vitamin C-folic acid 0.8 mg tablet (Nephro-Michelle) 1 tab PO MOWEFR Supplement 02/19/24
Review of Systems
-
History Source: Patient
A 12 point ROS was completed and negative except as noted: Yes
Constitutional: Reports Fatigue; Denies Fever or Chills
EENT: Denies Sore Throat
Respiratory: Denies Cough or Trouble Breathing
Cardiac: Denies Chest Pain or Palpitations
Abdomen/GI: Reports Nausea and Constipated; Denies Abdominal Pain, Vomiting, Diarrhea, Bloody Stools, Black Stools or Anorexia
: Denies Flank Pain
Musculoskeletal: Denies Joint Pain or Edema
Neurological: Reports Weakness and Numbness; Denies Dizzy or Headache
Psych: Denies Depression or Anxiety
Physical Exam
Vital Signs
Vital Signs
Temp Pulse Resp BP Pulse Ox
98.2 F 86 8 166/72 95
03/12/24 18:52 03/12/24 21:45 03/12/24 21:45 03/12/24 21:23 03/12/24 21:45
Physical Exam
General: Other (68y M in no acute distress.)
HEENT: Moist mucous membranes and PERRLA
Respiratory: Clear; No Wheezes, Rales or Rhonchi
Cardiac: S1/S2, Regular Rhythm and Murmur (II/ SHOAIB)
GI: Soft, Non Tender, Non Distended and Normal Bowel Sounds
Musculoskeletal: No Clubbing, No Cyanosis and No Edema
Skin: Other (Hematoma / ecchymosis over the L chest and upper arm.)
Neuro: AO x 3
Hematologic/Lymphatic: Other (LUE AVG - pos thrill. R IJ HD cath in place. No bleeding or discharge,)
Psych: No Anxious or Depressed
Laboratory Results
-
03/12/24 16:37
03/12/24 16:37
Laboratory Results
Total Bilirubin 0.9 mg/dl (0.2-1.3) 03/12/24 16:37
AST 1468 U/L (17-59) H* 03/12/24 16:37
ALT 48 U/L (0-50) 03/12/24 16:37
Alkaline Phosphatase 138 U/L (38-126) H 03/12/24 16:37
Troponin I 0.017 ng/ml 03/12/24 22:31
Lipase 128 U/L (23-300) 03/12/24 16:37
Impression/Plan
-
A/P: Patient is a 68y M with PMH significant for ASCVD, DM-II and ESRD on HD who presents to ED complaining of generalized weakness, ambulatory dysfunction and frequent falls since his recent hospital discharge.
Generalized Weakness
Ambulatory Dysfunction - Acute on Chronic
Multiple Falls at Home
- Observe overnight for further evaluation and treatment.
- Evaluation in the ED is relatively unremarkable (see below).
- Patient with long history of gait abnormality, LE weakness, etc and suspect recent prolonged hospital stay / acute illness contributed to significant degree of deconditioning.
- PT / OT evals in the AM.
- Follow for results and consider rehab / SNF stay if needed prior to return home.
Isolated Elevated AST
- Unclear etiology.
- CPK and troponin are normal.
- ALT is relatively unremarkable.
- ? med effect and likely due to either amiodarone or cefazolin - both of which are new from last admission.
- Will repeat labs in the AM.
- Continue current meds without changes for now.
- Cefazolin scheduled to complete after 03/18 (i.e. 3 more doses).
- Consider stopping / adjusting meds if AST increases or does not improve.
Strep Bacteremia
- Stable. No fevers, diaphoresis, chills, etc.
- Continue cefazolin on HD as noted above - through 03/18/24 doses.
- Follow for any recurrent fevers or other symptoms.
- Repeat blood cultures if any new fevers, etc.
Paroxysmal Atrial Fib / Flutter
- Stable / in NSR at present on amiodarone.
- Continue current medications for now without changes.
- Monitor on telemetry.
- Avoid tizanidine which is still on active med list (though so is hydrocodone which he is no longer taking).
- Continue Eliquis for stroke risk reduction.
ASCVD
- Stable. Significant past history of CAD, PAD, carotid disease, etc with multiple interventions, bypass surgeries, etc.
- Continue current CV med regimen including Eliquis and Plavix.
ESRD on HD
- Stable. Due for HD next tomorrow 03/13/24.
- Nephrology consulted for HD needs during inpatient stay.
- Currently receiving HD via R IJ HD cath as RENE LUKE has hematoma after recent catheter infiltration (at HD on Saturday per patient).
Benign Hypertension
- Stable. Continue outpatient meds with holding parameters.
DM-II
- Stable. Follow glucose and cover with SSI as needed.
Chronic Back Pain
Chronic Opioid Dependence
- Stable. Changed to oxycodone for pain control (from Vicodin)
- Remain off of tizanidine / 'muscle relaxants'.
- PT / OT as noted above.
Anxiety / Depression / ADHD
- Stable. Continue outpatient psychotropic med regimen.
Constipation
- Stable. Continue bowel regimen and follow for any new / worsening symptoms.
DVT Prophylaxis: On Eliquis.
Code Status: Full
[2024-03-13] VITALS (20 sets, daily range): BP systolic 108–184; BP diastolic 61–84; PULSE 83; O2SAT 98; BMI 29.6; BMI 29.2
[2024-03-13] MEDS: ATIVAN 1 MG PO ×2 (02:08→08:30)
[2024-03-13] MEDS: ROXICODONE 5 MG PO ×4 (02:18→21:35)
[2024-03-13 05:50] LABS: Hematocrit 24.8 % (39.0-52.0); Hemoglobin 8.5 g/dL (13.0-18.0); Mean Corp Hgb Conc. 34.3 g/dL (33.0-37.0); Mean Corpuscular Hgb 33.9 pg (27.0-31.0); Mean Corpuscular Volume 98.8 fL (80.0-94.0); Mean Platelet Volume 10.6 fL (7.4-10.4); Platelet Count 217 10^3/uL (130-400); Red Blood Cell Count 2.51 10^6/uL (4.70-6.10); Red Cell Dist. Width 17.9 % (11.5-14.5); White Blood Cell Count 8.5 10^3/uL (4.8-10.8)
[2024-03-13 06:12] LABS: ALT (SGPT) 39 U/L (0-50); Albumin 3.9 g/dl (3.5-5.0); Alkaline Phosphatase 110 U/L (38-126); Blood Urea Nitrogen 42 mg/dl (9-20); Calcium 8.8 mg/dl (8.4-10.2); Carbon Dioxide 31 mmol/L (22-30); Chloride 96 mmol/L (98-107); Direct Bilirubin 0.5 mg/dl (0.0-0.4); Estimated Creatinine Clearance 12 ml/min; Glucose 86 mg/dl (70-99); Potassium 4.2 mmol/L (3.5-5.1); Sodium 134 mmol/L (135-145); Total Bilirubin 0.6 mg/dl (0.2-1.3); Total Protein 6.6 g/dl (6.3-8.2); eGFR 9.24
[2024-03-13 06:21] LABS: AST (SGOT) 841 U/L (17-59)
[2024-03-13 08:21] LABS: Glucose - Point of Care 93 mg/dl (70-99)
[2024-03-13] MEDS: COLACE PO (08:24)
[2024-03-13] MEDS: PLAVIX 75 MG PO (08:30)
[2024-03-13] MEDS: PACERONE 200 MG PO (08:31)
[2024-03-13] MEDS: ELIQUIS 5 MG PO ×2 (08:31→21:26)
[2024-03-13] MEDS: NORVASC 2.5 MG PO ×2 (08:31→21:26)
[2024-03-13] MEDS: PHOSLO 667 MG PO ×3 (08:31→16:03)
[2024-03-13] MEDS: NEPHROCAP 1 CAPSULE PO (08:32)
[2024-03-13] MEDS: RITALIN 30 MG PO (08:32)
[2024-03-13] MEDS: ZOLOFT 200 MG PO (08:33)
[2024-03-13] MEDS: ZYRTEC 10 MG PO (08:33)
--- NOTE | 2024-03-13 08:40 | VNURNOTE ---
Patient is current with [facility] since 03/01 w/SN, will monitor progress and plan at discharge.
--- NOTE | 2024-03-13 09:53 | W.PN.HOSP.TC ---
Today's Communication/Plan
-
stop amio
RUQ US
Renal consult for HD
Cardiology consult
PT/OT
Assessment / Plan
Assessment / Plan
A/P: Patient is a 68y M with PMH significant for ASCVD, DM-II and ESRD on HD who presents to ED complaining of generalized weakness, ambulatory dysfunction and frequent falls since his recent hospital discharge.
Generalized Weakness
Ambulatory Dysfunction - Acute on Chronic
Multiple Falls at Home
- Observe overnight for further evaluation and treatment.
- labs significant for elevated AST (see below)
- Patient with long history of gait abnormality, LE weakness, etc and suspect recent prolonged hospital stay / acute illness contributed to significant degree of deconditioning; liver injury may also be contributing
- PT / OT
- Follow for results and consider rehab / SNF stay if needed prior to return home.
Isolated Elevated AST
- CPK and troponin are normal.
- ALT is relatively unremarkable.
- concern for AE Amiodarone
- discussed with Dr. Reynolds and will stop amio; cards consult in place (see below)
- Cefazolin scheduled to complete after 03/18 (i.e. 3 more doses).
- RUQ US ordered
Strep Bacteremia
- Stable. No fevers, diaphoresis, chills, etc.
- Continue cefazolin on HD as noted above - through 03/18/24 doses.
- Follow for any recurrent fevers or other symptoms.
- Repeat blood cultures if any new fevers, etc.
Paroxysmal Atrial Fib / Flutter
- Stable / in NSR at present
- stop amio as above
- Avoid tizanidine which is still on active med list (though so is hydrocodone which he is no longer taking).
- Continue Eliquis for stroke risk reduction.
- cardiology consult given stopping amio and need for further med adjustment
ASCVD
- Stable. Significant past history of CAD, PAD, carotid disease, etc with multiple interventions, bypass surgeries, etc.
- Continue current CV med regimen including Eliquis and Plavix.
ESRD on HD
- Stable. Due for HD next tomorrow 03/13/24.
- Nephrology consulted for HD needs during inpatient stay.
- Currently receiving HD via R IJ HD cath as RENE LUKE has hematoma after recent catheter infiltration (at HD on Saturday per patient).
Benign Hypertension
- Stable. Continue outpatient meds with holding parameters.
DM-II
- Stable. Follow glucose and cover with SSI as needed.
Chronic Back Pain
Chronic Opioid Dependence
- Stable. Changed to oxycodone for pain control (from Vicodin)
- Remain off of tizanidine / 'muscle relaxants'.
- PT / OT as noted above.
Anxiety / Depression / ADHD
- Stable. Continue outpatient psychotropic med regimen.
Constipation
- Stable. Continue bowel regimen and follow for any new / worsening symptoms.
DVT Prophylaxis: On Eliquis.
Code Status: Full
Anticipated Discharge: 24 - 48 hours
Subjective/Interval History
-
Date of Service: March 13, 2024
no abdominal pain
worked well with PT
reports more generalized weakness; states left side chronically a bit weaker post surgery
Objective Data
-
Labs:
Laboratory Results
03/13/24
05:23
WBC 8.5
Hgb 8.5 L
Hct 24.8 L
Plt Count 217
Sodium 134 L
Potassium 4.2
Chloride 96 L
Carbon Dioxide 31 H
BUN 42 H
Creatinine 6.2 H*
Glucose 86
Calcium 8.8
Total Bilirubin 0.6
AST 841 H*
ALT 39
Alkaline Phosphatase 110
Vital Signs:
Vital Signs
Temp Pulse Resp BP Pulse Ox
98.2 F 80 16 154/61 96
03/12/24 18:52 03/13/24 07:01 03/13/24 07:01 03/13/24 07:01 03/13/24 07:01
Review of Systems
-
History Source: Patient
All other systems: Reviewed and negative
Physical Exam
-
General: No Apparent Distress
HEENT: Negative Oxygen
Respiratory: Clear to Auscultation
Cardiac: S1/S2 and Irregular Rhythm; Negative Murmur or Tachycardic
GI: Soft, Nontender and Nondistended
Musculoskeletal: Other (LUE bruising surround LUE AV fistula)
Skin: Negative Rash
Neuro: Awake, Alert, Oriented, Nonfocal/Grossly Intact and Other (EDIL, no facial asymmetry, no pronator drift, 5/5 strength upper and lower extremities )
Psych: Calm
Data Reviewed
-
Diagnostic Radiology: Report Reviewed by me
Labs: Labs Reviewed by me
[2024-03-13 11:57] LABS: Glucose - Point of Care 107 mg/dl (70-99)
[2024-03-13 12:39] LABS: Acetaminophen < 10 ug/ml (10-30)
--- NOTE | 2024-03-13 12:45 | W.CON.NEPH ---
Consultation
-
Date/Time Consultation Requested: 03/13/2024 7:00 AM
Date/Time Consultation Performed: 03/13/2024 12:30 PM
Requesting Provider: lam
Performing Provider: dalia
Reason for Consultation: End-stage renal disease
Medical History
-
Chief Complaint: End-stage renal disease
History of Present Illness:
The patient is a 68-year-old male with a past medical history of end-stage renal disease secondary to diabetes who is maintained on a Saturday dialysis schedule. He was recently admitted to [facility] and is currently
maintained on cefazolin for Strep bacteremia. He has been maintained on amiodarone and diltiazem in the setting of his atrial fibrillation and chronically anticoagulated with Eliquis. He has had recurrent issues with access of his left upper
extremity AV fistula with multiple infiltrations and failures and is now dialyzing through his right anterior chest wall PermCath. He presented to the hospital yesterday as his thought the patient was having mental status changes as well as
increased in frequency of falls. We were consulted in the setting of his end-stage renal disease.
Past Medical History
Stenting of vein graft to obtuse marginal October 24, 2023
Strep bacteremia currently on antibiotic therapy
diastolic CHF
ESRD MWF ([facility])
Metabolic acidosis
Hyperkalemia
Anemia, CKD +/- functional iron deficiency
Secondary hyperparathyroidism with hyperphosphatemia
Diabetes mellitus with multiple microvascular complications including profound nephrotic proteinuria
COPD
Obstructive sleep apnea/CPAP
Diabetic polyneuropathy
CAD with CABG �2009
LAD stent 2015
Left SFA and popliteal angioplasty 2017
Left femoral to [id number] popliteal bypass 2018
Right SFA and popliteal angioplasty/stenting 2015
Hypertension
Right bundle branch block
CML
Hyperlipidemia
TIA 2016
Frontal subdural hematoma 2018 (traumatic fall)
Long-standing smoker
Multiple laminectomy
Right total knee replacement
Left total knee replacement
Left upper arm AV graft September 13, 2023 (Dr. Luther)
NSTEMI August 2023 (troponin 0.51)
Hyperphosphatemia
Social History
Tobacco: Former Smoker
Alcohol: None
Personal:
Living: With Family
Family History
No chronic kidney disease
Allergies / Home Medications
Allergy/AdvReac Type Severity Reaction Status Date / Time
latex Allergy Itching- Verified 02/19/24 09:09
pt
declines
having
this
allergy
morphine Allergy Itching- Verified 02/19/24 09:09
pt
declines
having
this
allergy
tizanidine AdvReac bradycardia Verified 03/13/24 02:25
,severe
�Medication �Instructions �Recorded �Confirmed �Type
melatonin 5 mg tablet 5 mg PO HS sleep 04/06/19 03/12/24 History
atorvastatin 80 mg tablet 80 mg PO HS High cholesterol 01/25/21 03/12/24 History
lorazepam 1 mg tablet 1 mg PO TIDPRN PRN ANXIETY 09/11/22 03/12/24 History
lidocaine-prilocaine 2.5 %-2.5 % 1 applic topical DAILYPRN PRN PORT 10/28/23 03/12/24 History
topical cream
methylphenidate HCl 10 mg tablet 30 mg PO DAILY Neurological 10/28/23 03/12/24 History
Condition
ezetimibe 10 mg tablet (Zetia) 10 mg PO DAILY High Cholesterol 11/14/23 03/12/24 History
calcium acetate 667 mg tablet 667 mg PO AC Kidney Disease 02/19/24 03/12/24 History
cetirizine 10 mg tablet (Zyrtec) 10 mg PO DAILY Allergies 02/19/24 03/12/24 History
clopidogrel 75 mg tablet (Plavix) 75 mg PO DAILY Blood Clot 02/19/24 03/12/24 History
Prevention/Tx
coQ10 (ubiquinol) 200 mg capsule 200 mg PO DAILY Supplement 02/19/24 03/12/24 History
semaglutide 0.25 mg or 0.5 mg (2 0.25 mg SC GRIMM Diabetes 02/19/24 03/12/24 History
mg/3 mL) subcutaneous pen injector
(Ozempic)
sertraline 100 mg tablet 200 mg PO DAILY Mental Health 02/19/24 03/12/24 History
vitamin B complex-vitamin C-folic 1 tab PO MOWEFR Supplement 02/19/24 03/12/24 History
acid 0.8 mg tablet (Nephro-Michelle)
amiodarone 200 mg tablet (Pacerone) 200 mg PO DAILY #30 tabs 02/28/24 03/12/24 Rx
amlodipine 2.5 mg tablet 2.5 mg PO BID #60 tabs 02/28/24 03/12/24 Rx
apixaban 5 mg tablet (Eliquis) 5 mg PO BID #60 tabs 02/28/24 03/12/24 Rx
cefazolin 2 gram solution for 2 g IM MOWEFR Infection 03/12/24 03/12/24 History
injection
hydrocodone 5 mg-acetaminophen 325 1 tab PO BIDPRN PRN severe pain 03/12/24 03/12/24 History
mg tablet
Review of Systems
-
History Source: Patient
All other systems: Negative unless noted
Constitutional: Fatigue and Other (Weakness)
EENT: No Symptoms
Respiratory: No Symptoms
Cardiac: No Symptoms
Abdomen/GI: No Symptoms
: No Symptoms
Musculoskeletal: Other (Bilateral leg weakness)
Neurological: Weakness, Numbness and Other (Chronic ataxia)
Endocrine: No Symptoms
Hematologic/Lymphatic: No Symptoms
Physical Exam
Vital Signs
Vital Signs
Temp Pulse Resp BP Pulse Ox
98.2 F 80 16 154/61 96
03/12/24 18:52 03/13/24 07:01 03/13/24 07:01 03/13/24 07:01 03/13/24 07:01
Lab Results
03/13/24 05:23
03/13/24 05:23
WBC 8.5 10^3/uL (4.8-10.8) 03/13/24 05:23
RBC 2.51 10^6/uL (4.70-6.10) L 03/13/24 05:23
Hgb 8.5 g/dL (13.0-18.0) L 03/13/24 05:23
Hct 24.8 % (39.0-52.0) L 03/13/24 05:23
Plt Count 217 10^3/uL (130-400) 03/13/24 05:23
Sodium 134 mmol/L (135-145) L 03/13/24 05:23
Potassium 4.2 mmol/L (3.5-5.1) 03/13/24 05:23
Chloride 96 mmol/L (98-107) L 03/13/24 05:23
Carbon Dioxide 31 mmol/L (22-30) H 03/13/24 05:23
BUN 42 mg/dl (9-20) H 03/13/24 05:23
Creatinine 6.2 mg/dL (0.7-1.3) H* 03/13/24 05:23
eGFR 9.24 03/13/24 05:23
Glucose 86 mg/dl (70-99) 03/13/24 05:23
Calcium 8.8 mg/dl (8.4-10.2) 03/13/24 05:23
Albumin 3.9 g/dl (3.5-5.0) 03/13/24 05:23
Physical Exam
General: AOx3, No Distress and Nontoxic
HEENT: PERRL, EOMI, Anicteric, Conjunctivae Clear (pale), Ear/Nose Intact, Hearing Normal, Oropharynx Clear/Moist, Facial Symmetry, Neck Supple, Trachea Midline and No Thyromegaly
Respiratory: Clear
Cardiac: S1/S2 and Regular Rate/Rhythm
Breast: Deferred by me
Abdomen: Soft, Nontender, Nondistended, Normal Bowel Sounds and No Hepatosplenomegaly
Rectal: Deferred by Provider
Genito-urinary: No Costovertebral Tender
Musculoskeletal: No Clubbing, No Cyanosis and No Edema
Skin: No Rash
Neuro: CN II-XII (intact) and Other (decreased neurosensory in lower extremities)
Hematologic/Lymphatic: No Cervical Lymphadenopathy, No Submandibular Lymphadenopathy, No Supraclavicular Lymphadenopathy and Other
Psych: Mood/afflect pleasant, Insight/judgement good and Appropriate
Vascular Access: AVG (left: good thrill and bruit) and CVC (right anterior chest wall catheter)
Data Reviewed
-
Radiology: Image Personally Visualized and interpreted (CXR : clear, right ACW catheter, sternal wires)
Medical Tests (Nuc Med, Echo etc): Other (EKG report reviewed: SR with RBB and septa infarct pattern at 82bmpm)
Labs: Labs Reviewed by me (bmp, CBC)
Old Records: Reviewed (nephrology consult reviewed in EMR from 02/15)
Assessment/Plan
-
Impression:
ESRD MWF
Weakness/ambulatory dysfunction
DM
CABG hx
strep bacteremia on Ancef
Anemia
PVD
LUE AVG/CVC
Hyperphosphatemia
HTN
Plan:
-HD tomorrow, order provided
-dietary and fluid restrictions provided
-maintain Ancef after dialysis for strep bacteremia
-Maintain PhosLo for hyperphosphatemia with meals
-Maintain current dry weight and antihypertensives for blood pressure control
--- NOTE | 2024-03-13 13:09 | EDRN ---
Pt noted to have a rhythm change to wide complex tach to 115-118 rate, denies any symptoms. Repeat EKG obtained, showing sinus tach and bifascicular block. Hospitalist contacted with above information. Pt remains asymptomatic.
--- NOTE | 2024-03-13 14:33 | CON.CAR ---
Addendum entered and electronically signed by Madison Reynolds DO 03/13/24 18:32:
I saw and examined the patient.
The Director Of Quality Improvement's note was reviewed and I agree with the note.
Comment: Seen and examined. Paramjit is a 68 year old male with PMH of CAD w/ recent PCI of vein graft, PAD, ESRD on HD, atrial fibrillation/atrial tachycardia, DM2, CML, HTN, HLD, anemia, BPH, recent admission for strep bacteremia currently on IV
antibiotics who presented to [facility] 03/12/2024 for weakness, ambulatory dysfunction and falls. Patient reports he has fallen 2-3 times in the past week and also feels loss of concentration with mild periods of confusion. During recent admission he
was initiated on amiodarone for atrial fibrillation/atrial tachycardia. He was discharged in sinus rhythm. On presentation to the emergency department patient was noted to be in sinus rhythm however he did become tachycardic with heart rates in
the 120s. He was provided oral amiodarone with improvement of heart rates on repeat EKG and on tele. He was noted to have significantly elevated LFTs (AST/ALT 1468/48). Troponin was negative at 0.017. Head CT was performed which demonstrated no
acute intracranial hemorrhage or infarct. Chest x-ray demonstrated no evidence of pneumonia or pleural effusion.
At time of this evaluation patient reports that he is feeling better. He denies chest pain, shortness of breath, dizziness, lightheadedness, palpitations, edema, orthopnea or PND. He tells me when he had his falls he did not experience any cardiac
symptoms his legs just gave out and felt very weak.
GEN: Appears older than stated age. Awake alert and oriented x 3. Lying supine
HEENT: mmm
LUNGS: CTA, no wheezes/rales. Dialysis catheter right upper chest wall
CV: Reg, S1/S2, 1/6 SM
ABD: soft, obese, BS+, NT/ND
EXT: No edema lower extremity muscles appeared atrophied
Plan:
-Presented 03/12/2024 with ambulatory dysfunction, falls and generalized weakness
Abnormal LFTs
-AST/ALT 1468/40 on admission, improving 81/39
-Amiodarone discontinued 03/13/2024
-Atorvastatin on hold
-Abdominal ultrasound 03/13/2024 shows no acute intra abdominal process
-Continue to monitor and trend
Paroxysmal atrial flutter/atrial tachycardia with bradycardia arrhythmia-currently in sinus rhythm at time of my visit
-Monitor on telemetry.
-Amiodarone discontinued 03/13 secondary to elevated LFTs
-Restart Lopressor 12.5 mg every 12 with hold parameters
-Continue Eliquis to reduce risk of cardioembolic event
End-stage kidney disease on dialysis Saturday /Saturday/ Saturday
-Nephrology consulted
-Plan for dialysis 03/14/2024 as he missed it today
- He has had recurrent issues with access of his left upper extremity AV fistula s/p AV fistula repair with stenting of the venous outflow track with vascular 02/27/2024; unfortunately had multiple issues/infiltrations and failures of graft. He is
now dialyzing through right anterior chest wall PermCath
-Continue plavix. s/p recent stent to VG 09/2023 and 02/27/24
-continue volume mgmt through HD [he does make a little bit of urine]
Hypertension with history of hypotension
-Blood pressures this admission have been hypertensive
-Consider up titration of amlodipine or adding back low dose beta-blokcer (for HR and BP control)
-Patient did require midodrine during January 2024 for admission due to hypotension while bacteremic. This was discontinued
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
-Continuation of cefazolin through 03/18/2024 per ID
-TTE 02/21/2024 without visualized vegetation.
-Repeat blood cultures pending
Original Note:
Consultation
Consultation Request
Date/Time Consultation Requested: 03/13/2024
Date/Time Consultation Performed: 03/13/2024
Requesting Provider: Dr. Segura
Performing Provider: Heather Izaguirre PA-C for Dr. Madison Reynolds
Reason for Consultation: Abnormal LFTs on amiodarone
Medical History
-
History of Present Illness:
Paramjit is a 68 year old male with PMH of CAD w/ recent PCI of vein graft, PAD, ESRD on HD, atrial fibrillation/atrial tachycardia, DM2, CML, HTN, HLD, anemia, BPH, recent admission for strep bacteremia currently on IV antibiotics who presented to [facility]
03/12/2024 for weakness, ambulatory dysfunction and falls. Patient reports he has fallen 2-3 times in the past week and also feels loss of concentration with mild periods of confusion. During recent admission he was initiated on amiodarone for
atrial fibrillation/atrial tachycardia. He was discharged in sinus rhythm. On presentation to the emergency department patient was noted to be in sinus rhythm however he did become tachycardic with heart rates in the 120s. He was provided oral
amiodarone with improvement of heart rates on repeat EKG and on tele. He was noted to have significantly elevated LFTs (AST/ALT 1468/48). Troponin was negative at 0.017. Head CT was performed which demonstrated no acute intracranial hemorrhage or
infarct. Chest x-ray demonstrated no evidence of pneumonia or pleural effusion.
At time of this evaluation patient reports that he is feeling better. He denies chest pain, shortness of breath, dizziness, lightheadedness, palpitations, edema, orthopnea or PND. He tells me when he had his falls he did not experience any cardiac
symptoms his legs just gave out and felt very weak.
PMH:
Recent hospitalization 02/19/24 to 02/28/2024 for bacteremia + BC Strep bacteremia with continuation of cefazolin through 03/18/2024
Atrial fibrillation with rapid ventricular response placed on amiodarone during admission with conversion to sinus rhythm 02/19/2024
Metabolic encephalopathy
Atypical atrial flutter/Atrial tachycardia
CAD
s/p LAD PCI 2005
s/p CABG with GARCIA to LAD, SVG to PDA and SVG to OM 07/05/10
NSTEMI, trop 0.51 during August 2023 admission
s/p 4.0 x 15 mm Xience stent at the ostium of the vein graft 10/24/2023
PAD
s/p left femoral endarterectomy with left femoral-above the knee SFA bypass 04/10/2019
ESRD on HD MWF
Sinus bradycardia with Mobitz 1
DM 2
CML
HTN
Hyperlipidemia
Anemia of chronic disease
BPH
Former smoker
Past Medical History
Past Medical History: Other (See HPI)
Past Surgical History: Cardiac (Cardiac stents, CABG 2009), Orthopedic (Multiple laminectomy, Right total knee replacement, Left total knee replacement) and Other (AV fistula stenting x 2, left femoropopliteal 2018)
Social History
Tobacco: Former Smoker (Quit 2021)
Alcohol: None
Drug: None
Personal:
Living: With Family
Family History
Family History: CAD and Diabetes
Allergies / Home Medications
Allergy/AdvReac Type Severity Reaction Status Date / Time
latex Allergy Itching- Verified 02/19/24 09:09
pt
declines
having
this
allergy
morphine Allergy Itching- Verified 02/19/24 09:09
pt
declines
having
this
allergy
�Medication �Instructions �Recorded �Confirmed �Type
melatonin 5 mg tablet 5 mg PO HS sleep 04/06/19 03/12/24 History
atorvastatin 80 mg tablet 80 mg PO HS High cholesterol 01/25/21 03/12/24 History
lorazepam 1 mg tablet 1 mg PO TIDPRN PRN ANXIETY 09/11/22 03/12/24 History
lidocaine-prilocaine 2.5 %-2.5 % 1 applic topical DAILYPRN PRN PORT 10/28/23 03/12/24 History
topical cream
methylphenidate HCl 10 mg tablet 30 mg PO DAILY Neurological 10/28/23 03/12/24 History
Condition
ezetimibe 10 mg tablet (Zetia) 10 mg PO DAILY High Cholesterol 11/14/23 03/12/24 History
calcium acetate 667 mg tablet 667 mg PO AC Kidney Disease 02/19/24 03/12/24 History
cetirizine 10 mg tablet (Zyrtec) 10 mg PO DAILY Allergies 02/19/24 03/12/24 History
clopidogrel 75 mg tablet (Plavix) 75 mg PO DAILY Blood Clot 02/19/24 03/12/24 History
Prevention/Tx
coQ10 (ubiquinol) 200 mg capsule 200 mg PO DAILY Supplement 02/19/24 03/12/24 History
semaglutide 0.25 mg or 0.5 mg (2 0.25 mg SC GRIMM Diabetes 02/19/24 03/12/24 History
mg/3 mL) subcutaneous pen injector
(Ozempic)
sertraline 100 mg tablet 200 mg PO DAILY Mental Health 02/19/24 03/12/24 History
vitamin B complex-vitamin C-folic 1 tab PO MOWEFR Supplement 02/19/24 03/12/24 History
acid 0.8 mg tablet (Nephro-Michelle)
amiodarone 200 mg tablet (Pacerone) 200 mg PO DAILY #30 tabs 02/28/24 03/12/24 Rx
amlodipine 2.5 mg tablet 2.5 mg PO BID #60 tabs 02/28/24 03/12/24 Rx
apixaban 5 mg tablet (Eliquis) 5 mg PO BID #60 tabs 02/28/24 03/12/24 Rx
cefazolin 2 gram solution for 2 g IM MOWEFR Infection 03/12/24 03/12/24 History
injection
hydrocodone 5 mg-acetaminophen 325 1 tab PO BIDPRN PRN severe pain 03/12/24 03/12/24 History
mg tablet
tizanidine 4 mg tablet 4 mg PO QIDPRN PRN muscle spasms 03/13/24 03/13/24 History
Review of Systems
-
History Source: Patient
All other systems: Negative unless noted
Physical Exam
Vital Signs
Temp Pulse Resp BP Pulse Ox
98.2 F 88 8 171/74 97
03/12/24 18:52 03/13/24 13:30 03/13/24 13:30 03/13/24 13:00 03/13/24 13:15
GEN: No distress, awake, Ox3
HEENT: supple, anicteric, mmm
LUNGS: CTA, no wheezes/rales
CV: Reg, S1/S2, 1/6 sys murmur, no rub or gallops
ABD: soft, BS+, NT/ND
EXT: No edema, clubbing or cyanosis
NEURO: Gross non-focal
SKIN: No rash, warm, dry, pink
Lab Results
03/13/24 05:23
03/13/24 05:23
Troponin I 0.017 ng/ml 03/12/24 22:31
Impression / Plan
-
PCP: Dr. Tabor
Cardiology: Dr. Serra
Nephrology: Dr. Anderson
Heme/Onc: Dr. Guzman
Impression:
Presented 03/12/2024 with altered mental status, ambulatory dysfunction, falls
Abnormal LFTs
Recent hospitalization 02/19/24 to 02/28/2024 for bacteremia + BC Strep bacteremia with continuation of cefazolin through 03/18/2024
Atrial fibrillation with rapid ventricular response placed on amiodarone during admission with conversion to sinus rhythm 02/19/2024
Metabolic encephalopathy
Atypical atrial flutter/Atrial tachycardia
CAD
s/p LAD PCI 2005
s/p CABG with GARCIA to LAD, SVG to PDA and SVG to OM 07/05/10
NSTEMI, trop 0.51 during August 2023 admission
s/p 4.0 x 15 mm Xience stent at the ostium of the vein graft 3PAD
s/p left femoral endarterectomy with left femoral-above the knee SFA bypass 04/10/2019
ESRD on HD MWF
Sinus bradycardia with Mobitz 1
DM 2
CML
HTN
Hyperlipidemia
Anemia of chronic disease
BPH
Former smoker
Lexiscan nuclear stress test 04/07/19: fixed inferior, anteroseptal and apical defects, no ischemic, EF 42%
Lexiscan nuclear stress test 10/22/2023: Partially reversible inferolateral, inferior, and apical defect consistent with infarction with ischemia.� Ejection fraction 43% with global hypokinesis.
Echo 07/16/2022: EF 60-65% by Kendall's, but closer to 50% visually, mild MR, no /AI, trace TR with mod PHTN with PAP 45-50 mmHg
Echo 09/21/2023: LVEF 65 to 70% with moderate concentric LVH.� No significant valvular disease.
Echo 02/21/2024: EF 55%, normal regional wall motion, mild conc LVH, normal RV size and function, mild MR, no aortic regurgitation
Plan:
-Presented 03/12/2024 with ambulatory dysfunction, falls and generalized weakness
Abnormal LFTs
-AST/ALT 1468/40 on admission, improving 81/39
-Amiodarone discontinued 03/13/2024 last dose
-Atorvastatin on hold
-Abdominal ultrasound 03/13/2024 shows no acute intra abdominal process
-Continue to monitor and trend
Paroxysmal atrial flutter/atrial tachycardia with bradycardia arrhythmia
-Started on amiodarone during 01/2024 admission with conversion to sinus rhythm.
-Remains in sinus rhythm, with occasional periods of elevated heart rates.
-Noted to have LFTs. Will stop amiodarone (last dose 03/13 in am)
-Monitor and trend LFTs
-During prior admission he was on both amiodarone and Coreg and had bradycardia. Would consider restarting low-dose Beta-keny given amiodarone is on hold.
-Continue Eliquis to reduce risk of cardioembolic event
End-stage kidney disease on dialysis Saturday
-Nephrology following. Currently on dialysis Saturday, Saturday, Saturday
-Will get dialysis 03/14/2024 as he missed it today
-Underwent AV fistula repair with stenting of the venous outflow track with vascular 02/27/2024; unfortunately had multiple issues/infiltrations and failures of graft. He is now dialyzing through right anterior chest wall PermCath
-Continue plavix. s/p recent stent to VG 09/2023 and 02/27/24
-continue volume mgmt through HD
Hypertension with history of hypotension
-Blood pressures this admission have been hypertensive
-Consider up titration of amlodipine or adding back low dose beta-blokcer (for HR and BP control)
-Patient did require midodrine during January 2024 for admission due to hypotension while bacteremic. This was discontinued
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
-Continuation of cefazolin through 03/18/2024 per ID
-TTE 02/21/2024 without visualized vegetation.
-Repeat blood cultures pending
HPI:
Paramjit is a 68 year old male with PMH of CAD w/ recent PCI of vein graft, PAD, ESRD on HD, atrial fibrillation/atrial tachycardia, DM2, CML, HTN, HLD, anemia, BPH, recent admission for strep bacteremia currently on IV antibiotics who presented to [facility]
03/12/2024 for altered mental status, weakness, ambulatory dysfunction and falls. Patient reports he has fallen 2-3 times in the past week and also feels loss of concentration with mild periods of confusion. During recent admission he was initiated
on amiodarone for atrial fibrillation/atrial tachycardia. He was discharged in sinus rhythm. On presentation to the emergency department patient was noted to be in sinus rhythm however he did become tachycardic with heart rates in the 120s. He
was provided oral amiodarone with improvement of heart rates on repeat EKG 07/13/2024. However he was noted to have significantly elevated LFTs (AST/ALT 1468/48). Troponin was negative at 0.017. Head CT was performed which demonstrated no acute
intracranial hemorrhage or infarct. Chest x-ray demonstrated no evidence of pneumonia or pleural effusion.
Data Reviewed
-
EKG: Report Reviewed by me, Discussed with Physician and Discussed with Patient
Radiology: Report Reviewed by me, Discussed with Physician and Discussed with Patient
CT Scan: Report Reviewed by me, Discussed with Physician and Discussed with Patient
Labs: Labs Reviewed by me, Discussed with Physician and Discussed with Patient
Old Records: Reviewed
[2024-03-13 16:21] LABS: Glucose - Point of Care 140 mg/dl (70-99)
[2024-03-13] MEDS: LOPRESSOR 12.5 MG PO (21:25)
[2024-03-13] MEDS: SENOKOT 17.1999999999999993 MG PO (21:26)
[2024-03-13] MEDS: LIPITOR 80 MG PO (21:26)
[2024-03-13] MEDS: MELATONIN 5 MG PO (21:26)
[2024-03-13] MEDS: COLACE 100 MG PO (21:26)
[2024-03-13] MEDS: ANCEF 10 IV (21:28)
[2024-03-13 21:54] LABS: Glucose - Point of Care 100 mg/dl (70-99)
[2024-03-14] MEDS: BENADRYL 25 MG PO (00:27)
--- NOTE | 2024-03-14 00:30 | PTCARENOTE ---
Patient complaining of itching to his chest at his HD cath site, left arm near his fistula site and his face and head. Patient states he thinks it has something to do with the administrations of his antibiotics. No known allergies to any
antibiotics. No rash/irritation noted to these areas, patient is unable to sleep and is requesting Benadryl. HOROLOGIST notified and PO Benadryl ordered and administered, see MAR. Call delcua within reach, will continue to monitor.
[2024-03-14 03:38] VITALS: BP 134/75
[2024-03-14 06:00] VITALS: BMI 29.2
[2024-03-14 06:25] LABS: % Basophils 0.6 % (0-2); % Eosinophils 5.6 % (0-6); % Immature Granulocytes 0.2 % (0-0.5); % Lymphocytes 25.2 % (20.5-51.1); % Monocytes 12.5 % (1.7-9.3); % Neutrophils 55.9 % (42.2-75.2); Absolute Basophils 0.1 10^3/uL (0-0.2); Absolute Eosinophils 0.5 10^3/uL (0-0.7); Absolute Lymphocytes 2.2 10^3/uL (1.2-3.4); Absolute Monocytes 1.1 10^3/uL (0.1-0.6); Absolute Neutrophils 4.9 10^3/uL (1.4-6.5); Hemoglobin 8.6 g/dL (13.0-18.0); Mean Corp Hgb Conc. 33.1 g/dL (33.0-37.0); Mean Corpuscular Hgb 33.5 pg (27.0-31.0); Mean Corpuscular Volume 101.2 fL (80.0-94.0); Mean Platelet Volume 10.5 fL (7.4-10.4); Nucleated Red Blood Cells % 0 % (-); Platelet Count 212 10^3/uL (130-400); Red Blood Cell Count 2.57 10^6/uL (4.70-6.10); Red Cell Dist. Width 17.8 % (11.5-14.5); White Blood Cell Count 8.7 10^3/uL (4.8-10.8)
[2024-03-14 06:34] LABS: ALT (SGPT) 36 U/L (0-50); AST (SGOT) 275 U/L (17-59); Albumin 3.8 g/dl (3.5-5.0); Alkaline Phosphatase 94 U/L (38-126); Blood Urea Nitrogen 51 mg/dl (9-20); Calcium 8.9 mg/dl (8.4-10.2); Carbon Dioxide 29 mmol/L (22-30); Chloride 96 mmol/L (98-107); Estimated Creatinine Clearance 9 ml/min; Glucose 98 mg/dl (70-99); Potassium 4.7 mmol/L (3.5-5.1); Sodium 135 mmol/L (135-145); Total Bilirubin 0.6 mg/dl (0.2-1.3); Total Protein 6.7 g/dl (6.3-8.2); eGFR 7.47
[2024-03-14 07:30] VITALS: BP 184/79
[2024-03-14 08:06] LABS: Glucose - Point of Care 107 mg/dl (70-99)
[2024-03-14] MEDS: ELIQUIS 5 MG PO (09:01)
[2024-03-14] MEDS: PHOSLO 667 MG PO (09:01)
[2024-03-14] MEDS: COLACE 100 MG PO (09:01)
[2024-03-14] MEDS: ZOLOFT 200 MG PO (09:01)
[2024-03-14] MEDS: NORVASC 2.5 MG PO (09:02)
[2024-03-14] MEDS: ZYRTEC 10 MG PO (09:02)
[2024-03-14] MEDS: RITALIN 30 MG PO (09:02)
[2024-03-14] MEDS: PLAVIX 75 MG PO (09:02)
[2024-03-14] MEDS: ROXICODONE 5 MG PO ×2 (09:03→13:04)
[2024-03-14] MEDS: LOPRESSOR 12.5 MG PO (09:03)
--- NOTE | 2024-03-14 10:31 | W.PN.HOSP.TC ---
Today's Communication/Plan
-
likely discharge post HD
Assessment / Plan
Assessment / Plan
A/P: Patient is a 68y M with PMH significant for ASCVD, DM-II and ESRD on HD who presents to ED complaining of generalized weakness, ambulatory dysfunction and frequent falls since his recent hospital discharge.
Generalized Weakness
Ambulatory Dysfunction - Acute on Chronic
Multiple Falls at Home
- labs significant for elevated AST (see below)
- Patient with long history of gait abnormality, LE weakness, etc and suspect recent prolonged hospital stay / acute illness contributed to significant degree of deconditioning; liver injury may also be contributing
- PT / OT --> patient improved and recommended
Isolated Elevated AST
- CPK and troponin are normal.
- ALT is relatively unremarkable.
- concern for AE Amiodarone
- discussed with Dr. Reynolds and will stop amio; cards consult in place (see below)
- AST improving, repeat in one week
- Cefazolin scheduled to complete after 03/18 (i.e. 3 more doses).
- RUQ US ordered - no acute pathology
Strep Bacteremia
- Stable. No fevers, diaphoresis, chills, etc.
- Continue cefazolin on HD as noted above - through 03/18/24 doses.
Paroxysmal Atrial Fib / Flutter
- Stable / in NSR at present
- stop amio as above
- Avoid tizanidine which is still on active med list (though so is hydrocodone which he is no longer taking).
- Continue Eliquis for stroke risk reduction.
- cardiology consult given stopping amio and need for further med adjustment - low dose metoprolol added: HR ok overnight
ASCVD
- Stable. Significant past history of CAD, PAD, carotid disease, etc with multiple interventions, bypass surgeries, etc.
- Continue current CV med regimen including Eliquis and Plavix.
ESRD on HD
- Stable. Due for HD next tomorrow 03/13/24.
- renal consult
- HD today
- Currently receiving HD via R IJ HD cath as RENE LUKE has hematoma after recent catheter infiltration (at HD on Saturday per patient).
Benign Hypertension
- Stable. Continue outpatient meds with holding parameters.
DM-II
- Stable. Follow glucose and cover with SSI as needed.
Chronic Back Pain
Chronic Opioid Dependence
- Stable. Changed to oxycodone for pain control (from Vicodin)
- Remain off of tizanidine / 'muscle relaxants'.
- PT / OT as noted above.
Anxiety / Depression / ADHD
- Stable. Continue outpatient psychotropic med regimen.
Constipation
- Stable. Continue bowel regimen and follow for any new / worsening symptoms.
DVT Prophylaxis: On Eliquis.
Code Status: Full
Anticipated Discharge: Within 24 hours
Subjective/Interval History
-
Date of Service: March 14, 2024
feeling well this morning
wants to go home
no pain
Objective Data
-
Labs:
Laboratory Results
03/14/24
05:48
WBC 8.7
Hgb 8.6 L
Hct 26.0 L
Plt Count 212
Sodium 135
Potassium 4.7
Chloride 96 L
Carbon Dioxide 29
BUN 51 H
Creatinine 7.4 H*
Glucose 98
Calcium 8.9
Total Bilirubin 0.6
AST 275 H
ALT 36
Alkaline Phosphatase 94
Vital Signs:
Vital Signs
Temp Pulse Resp BP Pulse Ox
99.4 F 77 18 178/79 96
03/14/24 07:30 03/14/24 09:03 03/14/24 07:30 03/14/24 09:03 03/14/24 07:30
I&O
03/13/24 03/14/2403/15/24
06:59 06:59 06:59
Intake Total 100 / 100
Balance 100 / 100
Review of Systems
-
History Source: Patient
All other systems: Reviewed and negative
Physical Exam
-
General: No Apparent Distress
HEENT: Negative Oxygen
Respiratory: Clear to Auscultation
Cardiac: S1/S2 and Irregular Rhythm; Negative Murmur or Tachycardic
GI: Soft, Nontender and Nondistended
Musculoskeletal: Other (LUE bruising surround LUE AV fistula)
Skin: Negative Rash
Neuro: Awake, Alert, Oriented, Nonfocal/Grossly Intact and Other (EDIL, no facial asymmetry, no pronator drift, 5/5 strength upper and lower extremities )
Psych: Calm
Data Reviewed
-
Diagnostic Radiology: Report Reviewed by me
Labs: Labs Reviewed by me
[2024-03-14] MEDS: HYDROCORTISONE 1% LOTION 1 APPLIC TOPICAL (10:58)
[2024-03-14 11:05] VITALS: BP 176/79; BP 189/84; PULSE 78; PULSE 80; PULSE 83
[2024-03-14 12:20] LABS: Glucose - Point of Care 117 mg/dl (70-99)
--- NOTE | 2024-03-14 12:44 | W.PN.NEPH.HD ---
Assessment
-
Patient seen on HD
sbp stable at u/f
amiodarone d/c by cards re: increased LFTs, now on lopressor
Progress Note - Hemodialysis
-
Date of Service: March 14, 2024
Duration: 30 minutes and 3 hours
Potassium Bath: 2
Calcium Bath: 2.5
Opti-Dialyzer: 160
Ultrafiltration: Other
Blood Flow: 400
Dialysate Flow: 600
Heparin: none
EPO: 10K
--- NOTE | 2024-03-14 12:45 | W.DS.TRANS ---
DC Summary - Reacher
-
Discharge Instructions:
Discharge Diagnosis/Procedures elevated liver enzyme (AST); weakness
Diet Restrict fluids to 48 oz,Low Sodium
Activity As tolerated
Driving Restrictions As prior to admission
Bathing Restrictions None
Blood Work CMP in 4-6 days
Other Services VN,PT,OT
Specialty Instructions Weigh Daily
Instructions:
Stand-Alone Forms:
Changes to Home Medications: Yes
Discharge Medications:
DC Medications w/original date entered in [employer]
melatonin 5 mg tablet 5 mg PO HS sleep 04/06/19
atorvastatin 80 mg tablet 80 mg PO HS High cholesterol 01/25/21
lorazepam 1 mg tablet 1 mg PO TIDPRN PRN ANXIETY 09/11/22
lidocaine-prilocaine 2.5 %-2.5 % topical cream 1 applic topical DAILYPRN PRN PORT 10/28/23
methylphenidate HCl 10 mg tablet 30 mg PO DAILY Neurological Condition 10/28/23
ezetimibe 10 mg tablet (Zetia) 10 mg PO DAILY High Cholesterol 11/14/23
calcium acetate 667 mg tablet 667 mg PO AC Kidney Disease 02/19/24
cetirizine 10 mg tablet (Zyrtec) 10 mg PO DAILY Allergies 02/19/24
clopidogrel 75 mg tablet (Plavix) 75 mg PO DAILY Blood Clot Prevention/Tx 02/19/24
coQ10 (ubiquinol) 200 mg capsule 200 mg PO DAILY Supplement 02/19/24
semaglutide 0.25 mg or 0.5 mg (2 mg/3 mL) subcutaneous pen injector (Ozempic) 0.25 mg SC GRIMM Diabetes 02/19/24
sertraline 100 mg tablet 200 mg PO DAILY Mental Health 02/19/24
vitamin B complex-vitamin C-folic acid 0.8 mg tablet (Nephro-Michelle) 1 tab PO MOWEFR Supplement 02/19/24
amlodipine 2.5 mg tablet 2.5 mg PO BID #60 tabs 02/28/24
apixaban 5 mg tablet (Eliquis) 5 mg PO BID #60 tabs 02/28/24
cefazolin 2 gram solution for injection 2 g IM MOWEFR Infection 03/12/24
hydrocodone 5 mg-acetaminophen 325 mg tablet 1 tab PO BIDPRN PRN severe pain 03/12/24
metoprolol succinate 25 mg tablet,extended release 24 hr 25 mg PO DAILY #30 tabs 03/14/24
Home Medication Changes
STOP AMIODARONE. This may have been affecting your liver enzymes. You will get repeat liver tests in one week.
STop Tizanidine. This interacts with amiodarone (which will be in your system for some time). Discuss with outpatient physicians when okay to resume.
You are newly started on metoprolol to prevent fast heart rates.
Pending Results: No
[2024-03-14] MEDS: RETACRIT 10000 UNITS IV (13:54)
--- NOTE | 2024-03-14 14:04 | W.DCSUMMARY ---
Discharge Summary
Discharge Data
Date of Admission: 03/12/24
Date of Discharge: 03/14/24
-
Pending Results: No
Hospital Course
Discharging Physician : Dr. Pricness Segura
Disposition : Home with Home Health
Primary care physician : Dr. Placido Lora
Principal Discharge diagnosis : Elevated AST, suspect drug reaction to amiodarone. Weakness
Hospital Course :
Patient is a 68y M with PMH significant for ASCVD, hypertension, DM-II and ESRD on HD, recent hospitalization 02/18-02/28/24 for bacteremia and atrial fibrillation (discharged on course of IV Cefazolin and amiodarone) who presents to ED complaining
of weakness and falls. Triage vitals significant for hypertension. Labs with AST 1468, other liver enzymes WNL except mildly elevated Alk PHos 138.
Patient was admitted to medicine. Amiodarone was stopped given concern for liver toxicity. Cardiology was consulted and Metoprolol 25mg PO XL was initiated to treat tachyarrhythmia. Patient tolerated this well. RUQ US without acute pathology.
Tylenol level < 10. Hep serologies pending. His AST trended down to 200's on day or discharge and labs will be repeated next week as outpatient.
Patient reported improvement in weakness on day of discharge. He worked well with PT and HH is recommended.
Nephrology was consulted for dialysis needs during admission.
Time spent on discharge was 32 minutes.
Important imaging findings :
RUQ US
IMPRESSION:
1. No acute intra-abdominal process identified sonographically.
2. Bilateral renal cysts without suspicious features.
3. Limited evaluation of midline structures secondary to overlying bowel gas.
Procedure findings :
Discharge Plan
-
Patient Disposition: Home with Home Care
Discharge Diagnosis/Procedures: elevated liver enzyme (AST); weakness
Diet: Low Sodium and Restrict fluids to 48 oz
Activity: As tolerated
Driving Restrictions: As prior to admission
Bathing Restrictions: None
Blood Work: CMP in 4-6 days
Other Services: VN, PT and OT
Specialty Instructions: Weigh Daily- Call MD for wt gain/loss 3 lbs overnight/5 lbs in 1 week
Referrals:
Placido Lora Jr., DO [Family Provider] - in less than 1 week
Tai Serra MD [Active] - 03/23/24 11:20 am (You have cardiology follow-up with Dr. Serra on March 23 at 11:20 AM in the [place]. If you are unable to make this please call [phone] to reschedule)
Additional Discharge Medication Instructions: STOP AMIODARONE. This may have been affecting your liver enzymes. You will get repeat liver tests in one week.
STop Tizanidine. This interacts with amiodarone (which will be in your system for some time). Discuss with outpatient physicians when okay to resume.
You are newly started on metoprolol to prevent fast heart rates.
Prescriptions:
New
metoprolol succinate 25 mg Tablet Extended Release 24 Hr
25 mg PO DAILY Qty: 30 0RF
Continued
melatonin 5 MG tablet
5 mg PO HS
atorvastatin 80 MG tablet
80 mg PO HS
lorazepam 1 MG tablet
1 mg PO TIDPRN PRN (Reason: ANXIETY)
Patient Comments:
10/28/2023, patient filled this medication on 09/28/2023 for 90 tablets according to PDMP.
methylphenidate HCl 10 mg Tablet
30 mg PO DAILY
Hold Instructions: Resume on 11/15/23. Discuss with your primary care provider before resuming this medication.
Patient Comments:
10/28/2023, patient filled this medication on 10/21/2023 for 270 tablets according to PDMP.
lidocaine-prilocaine 2.5-2.5 % Cream
1 applic TOPICAL DAILYPRN PRN (Reason: PORT )
Rx Instructions:
apply to access site 30 minutes before dialysis.
ezetimibe [Zetia] 10 mg Tablet
10 mg PO DAILY
cetirizine [Zyrtec] 10 mg Tablet
10 mg PO DAILY
sertraline 100 mg Tablet
200 mg PO DAILY
clopidogrel [Plavix] 75 mg Tablet
75 mg PO DAILY
Nephro-Michelle 0.8 mg Tablet
1 tab PO MOWEFR
coQ10 (ubiquinol) 200 mg Capsule
200 mg PO DAILY
calcium acetate 667 mg Tablet
667 mg PO AC
Ozempic 0.25 mg or 0.5 mg (2 mg/3 mL) Pen Injector
0.25 mg SC GRIMM
Eliquis 5 mg Tablet
5 mg PO BID Qty: 60 0RF
amlodipine 2.5 mg Tablet
2.5 mg PO BID Qty: 60 2RF
hydrocodone-acetaminophen 5-325 mg Tablet
1 tab PO BIDPRN PRN (Reason: severe pain)
cefazolin 2 gram Recon Soln
2 g IM MOWEFR
Discontinued
amiodarone [Pacerone] 200 mg Tablet
200 mg PO DAILY Qty: 30 2RF
tizanidine 4 mg Tablet
4 mg PO QIDPRN PRN (Reason: muscle spasms)
Discharge Orders:
Discharge Patient (As Directed); Ordered 03/14/24
Ordered By: Princess Segura
Discharge Date and Time
Print Language: LAO
[2024-03-14] MEDS: PHOSLO PO (14:12)
--- NOTE | 2024-03-14 14:21 | W.PN.CARDCBS ---
Today's Communication / Plan
-
Transition Lopressor to Toprol-XL
Discontinue amiodarone
Continue Eliquis anticoagulation
Outpatient cardiac follow-up to be arranged
Discussed with hospitalist
Impression / Plan
-
PCP: Dr. Tabor
Cardiology: Dr. Serra
Nephrology: Dr. Anderson
Heme/Onc: Dr. Guzman
Impression:
Presented 03/12/2024 with altered mental status, ambulatory dysfunction, falls
Abnormal LFTs
Recent hospitalization 02/19/24 to 02/28/2024 for bacteremia + BC Strep bacteremia with continuation of cefazolin through 03/18/2024
Atrial fibrillation with rapid ventricular response placed on amiodarone during admission with conversion to sinus rhythm 02/19/2024
Metabolic encephalopathy
Atypical atrial flutter/Atrial tachycardia
CAD
s/p LAD PCI 2005
s/p CABG with GARCIA to LAD, SVG to PDA and SVG to OM 07/05/10
NSTEMI, trop 0.51 during August 2023 admission
s/p 4.0 x 15 mm Xience stent at the ostium of the vein graft 3PAD
s/p left femoral endarterectomy with left femoral-above the knee SFA bypass 04/10/2019
ESRD on HD MWF
Sinus bradycardia with Mobitz 1
DM 2
CML
HTN
Hyperlipidemia
Anemia of chronic disease
BPH
Former smoker
Lexiscan nuclear stress test 04/07/19: fixed inferior, anteroseptal and apical defects, no ischemic, EF 42%
Lexiscan nuclear stress test 10/22/2023: Partially reversible inferolateral, inferior, and apical defect consistent with infarction with ischemia.� Ejection fraction 43% with global hypokinesis.
Echo 07/16/2022: EF 60-65% by Kendall's, but closer to 50% visually, mild MR, no /AI, trace TR with mod PHTN with PAP 45-50 mmHg
Echo 09/21/2023: LVEF 65 to 70% with moderate concentric LVH.� No significant valvular disease.
Echo 02/21/2024: EF 55%, normal regional wall motion, mild conc LVH, normal RV size and function, mild MR, no aortic regurgitation
Plan:
-Presented 03/12/2024 with ambulatory dysfunction, falls and generalized weakness
Abnormal LFTs
-AST/ALT 1468/40 on admission, improving now with isolated mild AST elevation
-Amiodarone discontinued 03/13/2024-no plan to restart at time of discharge
-Atorvastatin on hold-please resume at time of discharge
-Abdominal ultrasound 03/13/2024 shows no acute intra abdominal process
-Continue to monitor and trend
Ambulatory dysfunction/falls at home who underwent PT evaluation and cleared to be discharged home with physical therapy.
Paroxysmal atrial flutter/atrial tachycardia with bradycardia arrhythmia
-Started on amiodarone during 01/2024 admission with conversion to sinus rhythm.
-Amiodarone discontinued 03/13/2024 secondary to abnormal LFTs
-Remains in sinus rhythm
-Transition Lopressor to Toprol-XL 25 mg daily at 6 PM
-Continue Eliquis 5 mg twice daily
Chronic kidney disease on dialysis Saturday/Saturday/Saturday
-Dialysis today prior to discharge
-Nephrology consulted
-He continues to follow as an outpatient with vascular surgery: He has had recurrent issues with access of his left upper extremity AV fistula s/p AV fistula repair with stenting of the venous outflow track with vascular 02/27/2024; unfortunately had
multiple issues/infiltrations and failures of graft. He is now dialyzing through right anterior chest wall PermCath
-Continue plavix s/p recent stent to VG 09/2023 and 02/27/24
-continue volume mgmt through HD
Hypertension currently with elevated blood pressures with missed dialysis on Saturday.
-Monitor blood pressures following dialysis; history of hypotension with dialysis
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
-Continuation of cefazolin through 03/18/2024 per ID
-TTE 02/21/2024 without visualized vegetation.
-Repeat blood cultures no growth to date 03/12/2020
HPI:
Paramjit is a 68 year old male with PMH of CAD w/ recent PCI of vein graft, PAD, ESRD on HD, atrial fibrillation/atrial tachycardia, DM2, CML, HTN, HLD, anemia, BPH, recent admission for strep bacteremia currently on IV antibiotics who presented to [facility]
03/12/2024 for altered mental status, weakness, ambulatory dysfunction and falls. Patient reports he has fallen 2-3 times in the past week and also feels loss of concentration with mild periods of confusion. During recent admission he was initiated
on amiodarone for atrial fibrillation/atrial tachycardia. He was discharged in sinus rhythm. On presentation to the emergency department patient was noted to be in sinus rhythm however he did become tachycardic with heart rates in the 120s. He
was provided oral amiodarone with improvement of heart rates on repeat EKG 07/13/2024. However he was noted to have significantly elevated LFTs (AST/ALT 1468/48). Troponin was negative at 0.017. Head CT was performed which demonstrated no acute
intracranial hemorrhage or infarct. Chest x-ray demonstrated no evidence of pneumonia or pleural effusion.
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
Subjective
Date of Service: March 14, 2024
Seen and examined prior to dialysis. Lying supine and feels well.
Objective
Labs:
03/14/24 05:48
03/14/24 05:48
Labs
Hgb 8.6 g/dL (13.0-18.0) L 03/14/24 05:48
Hct 26.0 % (39.0-52.0) L 03/14/24 05:48
Plt Count 212 10^3/uL (130-400) 03/14/24 05:48
Sodium 135 mmol/L (135-145) 03/14/24 05:48
Potassium 4.7 mmol/L (3.5-5.1) 04/20/24 05:48
BUN 51 mg/dl (9-20) H 03/14/24 05:48
Creatinine 7.4 mg/dL (0.7-1.3) H* 03/14/24 05:48
Glucose 98 mg/dl (70-99) 03/14/24 05:48
Troponins
03/12/24 03/12/24
22:09 22:31
Troponin I Cancelled 0.017
Vital Signs and I&O:
Vital Signs
Temp Pulse Resp BP Pulse Ox
97.8 F 78 18 189/84 96
03/14/24 11:05 03/14/24 11:05 03/14/24 11:05 03/14/24 11:05 03/14/24 11:05
Vital Signs
Temp Pulse Resp BP Pulse Ox
97.8 F 78 18 189/84 96
03/14/24 11:05 03/14/24 11:05 03/14/24 11:05 03/14/24 11:05 03/14/24 11:05
Intake & Output
03/12/24 03/13/24 03/14/24 03/15/24
06:59 06:59 06:59 06:59
Intake Total 100 / 100
Balance 100 / 100
Physical Exam
Physical Exam
GEN: Appears older than stated age. Awake alert and oriented x 3. Lying supine
HEENT: mmm
LUNGS: CTA, no wheezes/rales. Anterior chest wall permacath for dialysis
CV: Reg, S1/S2, 1/6 SM
ABD: soft, obese, BS+, NT/ND
EXT: No edema lower extremity muscles appeared atrophied
--- NOTE | 2024-03-14 14:28 | CM ---
Spoke with pt at bedside
Lives with his in a 1 story home
Ambulates with rolling walker or cane, independent with adl's
DME includes - cane, rolling walker, can, elevated toilet seat, and grab bars
HH - current with [facility]
SNF - Has been to [facility] in past
Currently receives HD at [place], [place]
Has ride at d/c
XIAO referral sent in [facility] to [facility]
Plan - home with [facility] when medically ready
[2024-03-14] MEDS: HEPARIN 4200 UNITS INTRACATH (15:13)
[2024-03-14 15:15] VITALS: BP 149/82
[2024-03-16 18:57] LABS: Hepatitis B Surface Antigen Negative (Negative)
[2024-03-16 19:15] LABS: Hepatitis C Antibody Negative (Negative)
[2024-03-16 19:41] LABS: Hepatitis A Antibody, Total Negative (Negative)
== END 2024-03-14 17:29 | disposition home health service (06) ==
LOC: 3 WEST ACU 23:22
PROVIDERS: ADMITTING PHYSICIAN Hospitalist; ATTENDING PHYSICIAN Student in an Organized Health Care Education/Training Program; CONSULT PHYSICIAN Internal Medicine Cardiovascular Disease; EMERGENCY PHYSICIAN Emergency Medicine; FAMILY PHYSICIAN Family Medicine; OTHER PHYSICIAN Specialist
DX: R53.1 Weakness (principal); G93.41 Metabolic encephalopathy; I48.4 Atypical atrial flutter; I47.19 Other supraventricular tachycardia; R74.01 Elevation of levels of liver transaminase levels; R00.1 Bradycardia, unspecified; R74.8 Abnormal levels of other serum enzymes; I48.0 Paroxysmal atrial fibrillation; R29.6 Repeated falls; E66.9 Obesity, unspecified; I25.10 Atherosclerotic heart disease of native coronary artery without angina pectoris; E11.22 Type 2 diabetes mellitus with diabetic chronic kidney disease; N18.6 End stage renal disease; I13.2 Hypertensive heart and chronic kidney disease with heart failure and with stage 5 chronic kidney disease, or end stage renal disease; G89.29 Other chronic pain; M54.50 Low back pain, unspecified; G47.33 Obstructive sleep apnea (adult) (pediatric); E78.00 Pure hypercholesterolemia, unspecified; K59.00 Constipation, unspecified; E11.51 Type 2 diabetes mellitus with diabetic peripheral angiopathy without gangrene; F17.200 Nicotine dependence, unspecified, uncomplicated; D63.8 Anemia in other chronic diseases classified elsewhere; I50.32 Chronic diastolic (congestive) heart failure; N40.0 Benign prostatic hyperplasia without lower urinary tract symptoms; N25.81 Secondary hyperparathyroidism of renal origin; J44.9 Chronic obstructive pulmonary disease, unspecified; E11.42 Type 2 diabetes mellitus with diabetic polyneuropathy; I25.2 Old myocardial infarction; I27.20 Pulmonary hypertension, unspecified; F90.9 Attention-deficit hyperactivity disorder, unspecified type; F11.20 Opioid dependence, uncomplicated; F32.A Depression, unspecified; F41.9 Anxiety disorder, unspecified; R78.81 Bacteremia; N28.1 Cyst of kidney, acquired; I45.10 Unspecified right bundle-branch block; Z68.29 Body mass index [BMI] 29.0-29.9, adult; Z99.2 Dependence on renal dialysis; Z86.73 Personal history of transient ischemic attack (TIA), and cerebral infarction without residual deficits; Z95.5 Presence of coronary angioplasty implant and graft; Z83.3 Family history of diabetes mellitus; Z11.52 Encounter for screening for COVID-19; Z95.1 Presence of aortocoronary bypass graft; Z91.040 Latex allergy status; Z88.5 Allergy status to narcotic agent; Z79.82 Long term (current) use of aspirin; Z79.85 Long-term (current) use of injectable non-insulin antidiabetic drugs; Z91.81 History of falling; Z79.01 Long term (current) use of anticoagulants; Z79.02 Long term (current) use of antithrombotics/antiplatelets
CPT/HCPCS: 70450; 71046; 76700; 80053; 80143; 81003; 81015; 82248; 82550; 82962; 83690; 84484; 85025; 85027; 86708; 86803; 87040; 87070; 87340; 87502; 87811; 93005; 99285; G0257; G0378; Q5106

== ENCOUNTER → 2024-04-14 14:37 | Outpatient (REF) | payer MEDICARE, OTHER, SELFPAY ==
[2024-04-14 15:51] LABS: % Basophils 0.6 % (0-2); % Eosinophils 4.8 % (0-6); % Immature Granulocytes 0.4 % (0-0.5); % Lymphocytes 19.7 % (20.5-51.1); % Monocytes 9.8 % (1.7-9.3); % Neutrophils 64.7 % (42.2-75.2); Absolute Basophils 0.1 10^3/uL (0-0.2); Absolute Eosinophils 0.5 10^3/uL (0-0.7); Absolute Neutrophils 6.7 10^3/uL (1.4-6.5); Hematocrit 34.4 % (39.0-52.0); Hemoglobin 11.1 g/dL (13.0-18.0); Mean Corp Hgb Conc. 32.3 g/dL (33.0-37.0); Mean Corpuscular Volume 99.1 fL (80.0-94.0); Mean Platelet Volume 10.6 fL (7.4-10.4); Nucleated Red Blood Cells % 0 % (-); Platelet Count 309 10^3/uL (130-400); Red Blood Cell Count 3.47 10^6/uL (4.70-6.10); Red Cell Dist. Width 15.6 % (11.5-14.5); White Blood Cell Count 10.3 10^3/uL (4.8-10.8)
[2024-04-14 16:18] LABS: Vitamin D, 25-OH*** 37.4 ng/mL (30-80)
[2024-04-14 16:19] LABS: ALT (SGPT) 17 U/L (0-50); AST (SGOT) 32 U/L (17-59); Albumin 4.5 g/dl (3.5-5.0); Alkaline Phosphatase 104 U/L (38-126); Blood Urea Nitrogen 31 mg/dl (9-20); Calcium 9.7 mg/dl (8.4-10.2); Carbon Dioxide 28 mmol/L (22-30); Chloride 98 mmol/L (98-107); Glucose 81 mg/dl (70-99); HDL Cholesterol 72 mg/dl; LDL Cholesterol, Calculated 51 mg/dl; Potassium 5.3 mmol/L (3.5-5.1); Sodium 139 mmol/L (135-145); Total Bilirubin 0.7 mg/dl (0.2-1.3); Total Cholesterol 141 mg/dl (50-199); Total Protein 7.5 g/dl (6.3-8.2); Triglyceride 93 mg/dl (10-149); Very Low Density Lipoprotein 18 mg/dl (0-30); eGFR 11.41
[2024-04-14 16:32] LABS: PSA, Total - Screen 0.27 ng/ml (0.0-4.0)
[2024-04-15 09:36] LABS: Glycohemoglobin (HgbA1c) 4.6 % (4.0-5.6)
== END ==
LOC: REG 14:37
PROVIDERS: ATTENDING PHYSICIAN Family Medicine
DX: N18.6 End stage renal disease (principal); E11.21 Type 2 diabetes mellitus with diabetic nephropathy; D63.1 Anemia in chronic kidney disease; E78.00 Pure hypercholesterolemia, unspecified; Z12.5 Encounter for screening for malignant neoplasm of prostate
CPT/HCPCS: 36415; 80053; 80061; 82306; 82728; 83036; 85025; G0103

== ENCOUNTER 2024-04-16 15:07 | Emergency (ER) | payer MEDICARE, OTHER, SELFPAY ==
[2024-04-16 15:15] VITALS: BP 139/64
--- NOTE | 2024-04-16 16:53 | ED.GENMED ---
History of Present Illness
General
Chief Complaint: Fall
Time Seen by Provider: 04/16/24 16:14
Travel History
Have you had any contact with someone who has COVID-19?: No
Do you have any symptoms of coronavirus? Fever > 100 degrees, chills, cough, shortness of breath, sore throat, loss of taste or smell, muscle aches, or headache?: No
History of Present Illness
History of Present Illness:
68-year-old male with history of end-stage renal disease on dialysis presents to the emergency department for evaluation of right shoulder pain, left flank pain, and a head injury after a mechanical ground-level fall. He came to his care specialist
office for a routine visit today, states he fell while trying to put his walker into his vehicle. He did have some bleeding from the right ear that is since stopped. He is on anticoagulants. Denies any chest pain or dyspnea at this time
Past History
Past History
ED Past Medical History: CAD, Cancer (CML), HTN, Hypercholesterolemia, NIDDM, Renal failure (stage 3), Other (Peripheral artery disease, left femoropopliteal bypass), Other (subdural hematoma) and Other (R foot ulcer; FINESSE; obesity)
ED Past Surgical History: Cardiac and Other (L femoral endarterectomy, popliteal angioplasty)
Social History
Tobacco: Smoker
Alcohol: None
Drug: Marijuana
Personal:
Living: with family
Employment: Disabled
Family History
Family History: Diabetes and Other (reviewed and non-contributory)
Review of Systems
Review of Systems
Allergies reviewed?: Yes
All Other Systems: ROS reviewed and negative except as documented in HPI and ROS
Phy Exam
Physical Exam
Physical Exam:
GEN: Well appearing, NAD, WDWN
Eyes: PERRLA, EOMs intact, no scleral icterus
HENT: NCAT, oral mucosa moist
Lungs: CTAB, no wheezes, rales, rhonchi, normal chest wall excursion
Cardiac: RRR dialysis port in the right chest wall
Abdomen: S, NT, ND, NABS, no masses or hepatosplenomegaly
Neuro: AO x 3, no focal deficits to BUE/BLE, normal sensation throughout
MSK: No gross deformity or ecchymosis. Chronic deformity of the left fourth and fifth digits with no evidence for acute ecchymosis or swelling
Skin: No rashes, petechiae. Normal color, no pallor or jaundice.
Psych: Calm, cooperative, proper hygiene
Course
Orders/Labs/Results
Orders:
Orders
04/16/24 15:19
Hand, Left 3 View [CR Hand - Left Min 3 Views] Urgent
Comment:
Reason For Exam: fall
04/16/24 15:[address] [CT Head W/o Iv Contrast] Stat
Comment:
Reason For Exam: fall on thinners
04/16/24 16:32
CR Ribs-right 3 Vw W/pa Chest* Urgent
Reason For Exam: fall right sided chest/rib pain
Vital Signs
Initial and Last Documented VS:
Initial Vital Signs
Temp Pulse Resp BP Pulse Ox
98.4 F 82 18 139/64 99
04/16/24 15:15 04/16/24 15:15 04/16/24 15:15 04/16/24 15:15 04/16/24 15:15
Last Documented Vital Signs
Temp Pulse Resp BP Pulse Ox
98.4 F 82 18 139/64 99
04/16/24 15:15 04/16/24 15:15 04/16/24 15:15 04/16/24 15:15 04/16/24 15:15
MDM/Problems Addressed
MDM/Problems Addressed:
Patient is neurologically intact. Due to use of anticoagulants and antiplatelets head CT was obtained and this was unremarkable. X-rays of the left hand as well as the left chest wall and ribs are unremarkable. Discharged in stable condition
*Critical Care Note
Total Time (30-74mins, 75-104mins- exclusive of procedures): Not Applicable
ED Attending Note
-
Portions of this chart may have been created with voice recognition software.� Occasional wrong word or��sound alike� substitutions may have occurred due to the inherent limitations of voice recognition software.
Discharge Plan
Departure
Patient Disposition: Home (Routine Discharge)
Date of Disposition: 04/16/24
Time of Disposition: 17:37
Patient with high blood pressure during this ER visit?: No
Discharge Problem:
Fall from ground level, Contusion of left hand, Contusion of left chest wall
Instructions: Preventing falls in adults
Prescriptions:
No Action
melatonin 5 MG tablet
5 mg PO HS
atorvastatin 80 MG tablet
80 mg PO HS
lorazepam 1 MG tablet
1 mg PO TIDPRN PRN (Reason: ANXIETY)
Patient Comments:
10/28/2023, patient filled this medication on 09/28/2023 for 90 tablets according to PDMP.
methylphenidate HCl 10 mg Tablet
30 mg PO DAILY
Hold Instructions: Resume on 11/15/23. Discuss with your primary care provider before resuming this medication.
Patient Comments:
10/28/2023, patient filled this medication on 10/21/2023 for 270 tablets according to PDMP.
lidocaine-prilocaine 2.5-2.5 % Cream
1 applic TOPICAL DAILYPRN PRN (Reason: PORT )
Rx Instructions:
apply to access site 30 minutes before dialysis.
ezetimibe [Zetia] 10 mg Tablet
10 mg PO DAILY
cetirizine [Zyrtec] 10 mg Tablet
10 mg PO DAILY
sertraline 100 mg Tablet
200 mg PO DAILY
clopidogrel [Plavix] 75 mg Tablet
75 mg PO DAILY
Nephro-Michelle 0.8 mg Tablet
1 tab PO MOWEFR
coQ10 (ubiquinol) 200 mg Capsule
200 mg PO DAILY
calcium acetate 667 mg Tablet
667 mg PO AC
Ozempic 0.25 mg or 0.5 mg (2 mg/3 mL) Pen Injector
0.25 mg SC GRIMM
Eliquis 5 mg Tablet
5 mg PO BID Qty: 60 0RF
amlodipine 2.5 mg Tablet
2.5 mg PO BID Qty: 60 2RF
hydrocodone-acetaminophen 5-325 mg Tablet
1 tab PO BIDPRN PRN (Reason: severe pain)
cefazolin 2 gram Recon Soln
2 g IM MOWEFR
metoprolol succinate 25 mg Tablet Extended Release 24 Hr
25 mg PO DAILY Qty: 30 0RF
Referrals:
Placido Lora Jr., DO [Family Provider] -
Interventions
Interventions:
*Risk Screen - Suicide Last Done: 04/16/24 15:18
*General Assessment Last Done: 04/16/24 15:18
*Neglect/Abuse Screening Last Done: 04/16/24 15:18
*Nursing Disposition Last Done: 04/16/24 17:55
ED-Musculoskeletal Assessment Last Done: 04/16/24 16:55
ED- Neurological Assessment Last Done: 04/16/24 16:55
ED-Skin Assessment Last Done: 04/16/24 16:55
Discharge Date and Time
Discharge Date/Time: 04/16/24 17:55
Print Language: CAMBODIAN
== END 2024-04-16 17:55 | disposition home or self-care (01) ==
LOC: EMR 15:07
PROVIDERS: EMERGENCY PHYSICIAN Emergency Medicine; FAMILY PHYSICIAN Family Medicine
DX: S09.90XA Unspecified injury of head, initial encounter (principal); S20.212A Contusion of left front wall of thorax, initial encounter; S60.222A Contusion of left hand, initial encounter; E11.22 Type 2 diabetes mellitus with diabetic chronic kidney disease; E11.51 Type 2 diabetes mellitus with diabetic peripheral angiopathy without gangrene; I12.0 Hypertensive chronic kidney disease with stage 5 chronic kidney disease or end stage renal disease; N18.6 End stage renal disease; Z99.2 Dependence on renal dialysis; Z79.01 Long term (current) use of anticoagulants; M25.511 Pain in right shoulder; W18.39XA Other fall on same level, initial encounter; Y93.89 Activity, other specified; Y92.481 Parking lot as the place of occurrence of the external cause
CPT/HCPCS: 99284; 70450; 71101; 73130

== ENCOUNTER 2024-04-23 17:56 | Emergency (ER) | payer MEDICARE, OTHER, SELFPAY ==
[2024-04-23 17:58] VITALS: BP 171/78
--- NOTE | 2024-04-23 19:14 | ED.GENMED ---
History of Present Illness
<MARIYA Bowles - Last Filed: 04/23/24 22:23>
General
Chief Complaint: Musculo-Skeletal Complaint
Source: patient and spouse
Exam Limitations: none
Time Seen by Provider: 04/23/24 18:37
Nursing documentation reviewed up to this point in time: agreed with
Travel History
Have you had any contact with someone who has COVID-19?: No
Do you have any symptoms of coronavirus? Fever > 100 degrees, chills, cough, shortness of breath, sore throat, loss of taste or smell, muscle aches, or headache?: No
History of Present Illness
History of Present Illness:
Patient is a 68-year-old male presents to the ER for evaluation of fall. Patient fell on Saturday and landed on left hip. He is on Plavix and Eliquis and since then has had left hip pain and bruising with swelling to the hip area. He does have
this hip replaced. He denies hitting his head.
Past History
<MARIYA Bowles - Last Filed: 04/23/24 22:23>
Past History
ED Past Medical History: CAD, Cancer (CML), HTN, Hypercholesterolemia, NIDDM, Renal failure (stage 3), Other (Peripheral artery disease, left femoropopliteal bypass), Other (subdural hematoma) and Other (R foot ulcer; FINESSE; obesity)
ED Past Surgical History: Cardiac and Other (L femoral endarterectomy, popliteal angioplasty)
Social History
Tobacco: Smoker
Alcohol: None
Drug: Marijuana
Personal:
Living: with family
Employment: Disabled
Family History
Family History: Diabetes and Other (reviewed and non-contributory)
Phy Exam
<MARIYA Bowles - Last Filed: 04/23/24 22:23>
General Physical Exam
General Presentation: no apparent distress
General age: appears stated age
General Skin: warm and dry
General Habitus: normal
General Mental: alert
General Hydration: appears well hydrated
Neurological Exam
Neurological Exam: alert and oriented x3
Musculoskeletal Exam
Musculoskeletal Exam: other (Patient with full range of motion to left hip with obvious palpable hematoma and ecchymosis to left groin buttock hip area with normal internal and external rotation no pain )
Skin Exam
Skin Exam: normal color and warm/dry
Psychiatric Exam
Psychiatric Exam: normal mood/affect
Course
<MARIYA Bowles - Last Filed: 04/23/24 22:23>
Orders/Labs/Results
Orders:
Orders
04/23/24 19:11
CT Lower Ext W/o Iv Cont Lt Urgent
Comment:
Reason For Exam: trauma /hematoma
04/23/24 20:01
Complete Blood Count/With Diff Urgent
Comprehensive Metabolic Panel Urgent
Abnormal Lab Results
04/23/24
20:01
WBC 13.3 H 10^3/uL
(4.8-10.8)
RBC 3.18 L 10^6/uL
(4.70-6.10)
Hgb 10.0 L g/dL
(13.0-18.0)
Hct 30.3 L %
(39.0-52.0)
MCV 95.3 H fL
(80.0-94.0)
MCH 31.4 H pg
(27.0-31.0)
RDW 15.1 H %
(11.5-14.5)
MPV 11.4 H fL
(7.4-10.4)
Abs Immat Gran (auto) 0.1 H 10^3/uL
(0-0.05)
Absolute Neuts (auto) 8.8 H 10^3/uL
(1.4-6.5)
Absolute Monos (auto) 1.3 H 10^3/uL
(0.1-0.6)
Lymphocytes % 19.3 L %
(20.5-51.1)
Monocytes % 9.6 H %
(1.7-9.3)
Potassium 5.6 H mmol/L
(3.5-5.1)
Chloride 89 L mmol/L
(98-107)
Carbon Dioxide 31 H mmol/L
(22-30)
BUN 46 H mg/dl
(9-20)
Creatinine 5.2 H* mg/dL
(0.7-1.3)
04/23/24 20:01
04/23/24 20:01
Vital Signs
Initial and Last Documented VS:
Initial Vital Signs
Temp Pulse Resp BP Pulse Ox
97.9 F 76 16 171/78 100
04/23/24 17:58 04/23/24 17:58 04/23/24 17:58 04/23/24 17:58 04/23/24 17:58
Last Documented Vital Signs
Temp Pulse Resp BP Pulse Ox
97.9 F 76 15 168/74 100
04/23/24 17:58 04/23/24 22:30 04/23/24 22:30 04/23/24 22:30 04/23/24 22:30
Rn Military consulted with Physician
Rn Military consulted with physician?: Yes
Name of Physician Consulted: Kimberlee
<Uche Mohan, DO - Last Filed: 04/23/24 23:24>
Orders/Labs/Results
Orders:
Orders
04/23/24 19:11
CT Lower Ext W/o Iv Cont Lt Urgent
Comment:
Reason For Exam: trauma /hematoma
04/23/24 20:01
Complete Blood Count/With Diff Urgent
Comprehensive Metabolic Panel Urgent
Abnormal Lab Results
04/23/24
20:01
WBC 13.3 H 10^3/uL
(4.8-10.8)
RBC 3.18 L 10^6/uL
(4.70-6.10)
Hgb 10.0 L g/dL
(13.0-18.0)
Hct 30.3 L %
(39.0-52.0)
MCV 95.3 H fL
(80.0-94.0)
MCH 31.4 H pg
(27.0-31.0)
RDW 15.1 H %
(11.5-14.5)
MPV 11.4 H fL
(7.4-10.4)
Abs Immat Gran (auto) 0.1 H 10^3/uL
(0-0.05)
Absolute Neuts (auto) 8.8 H 10^3/uL
(1.4-6.5)
Absolute Monos (auto) 1.3 H 10^3/uL
(0.1-0.6)
Lymphocytes % 19.3 L %
(20.5-51.1)
Monocytes % 9.6 H %
(1.7-9.3)
Potassium 5.6 H mmol/L
(3.5-5.1)
Chloride 89 L mmol/L
(98-107)
Carbon Dioxide 31 H mmol/L
(22-30)
BUN 46 H mg/dl
(9-20)
Creatinine 5.2 H* mg/dL
(0.7-1.3)
04/23/24 20:01
04/23/24 20:01
Vital Signs
Initial and Last Documented VS:
Initial Vital Signs
Temp Pulse Resp BP Pulse Ox
97.9 F 76 16 171/78 100
04/23/24 17:58 04/23/24 17:58 04/23/24 17:58 04/23/24 17:58 04/23/24 17:58
Last Documented Vital Signs
Temp Pulse Resp BP Pulse Ox
97.9 F 76 15 168/74 100
04/23/24 17:58 04/23/24 22:30 04/23/24 22:30 04/23/24 22:30 04/23/24 22:30
<MARIYA Bowles - Last Filed: 04/23/24 22:23>
MDM/Problems Addressed
Differential Diagnosis Includes:
Not limited to hematoma, fracture
MDM/Problems Addressed:
Patient is anticoagulated on both Eliquis and Plavix for history of stroke and presents after fall 2 days ago landing on hip. Patient with obvious palpable hematoma and hematoma on CAT scan 13 cm x 5 cm.
Patient's hemoglobin is baseline. He is a dialysis patient potassium mildly elevated 5.6 pt however scheduled for dialysis tomorrow. Will DC with ice and instructed patient to return if any worsening of symptoms.
Chronic conditions affecting care:
On anticoagulation with Eliquis and Plavix history of end-stage renal disease dialysis Saturday.
<MARIYA Bowles - Last Filed: 04/23/24 22:23>
*Radiology
Radiology exam reviewed: radiology read reviewed ( ct neg fx left gluteal hematoma measuring 9x5 cm)
*Pulse Oximetry
Patient hypoxic: no
*Critical Care Note
Total Time (30-74mins, 75-104mins- exclusive of procedures): Not Applicable
ED Attending Note
<MARIYA Bowles - Last Filed: 04/23/24 22:23>
-
Portions of this chart may have been created with voice recognition software.� Occasional wrong word or��sound alike� substitutions may have occurred due to the inherent limitations of voice recognition software.
<Uche Kimberlee, DO - Last Filed: 04/23/24 23:24>
ED Attending Note
Patient seen and examined by attending physician: Yes
I performed the substantive portion of visit, reviewed & personally made and approve the management plan that is documented in note by myself or BENOIT.: Yes
ED Attending Note:
Patient is a 68-year-old male on hemodialysis awaiting kidney transplant who has diabetic neuropathy and fell. Patient said multiple falls but he states he is unsteady on his feet and has had balance issues. Patient is complaining of bruising on
his left hip and has difficulty weightbearing due to the bruising and pain. Patient is on Eliquis and Plavix as well as dialysis. Patient denies any head injury. Patient denies any neck or back pain at this time. On physical exam patient appears
to be in mild distress but appears chronically ill. Head is normocephalic and neck nontender. There is contusion and tenderness about the left buttock. Patient's workup is consistent with hematoma in the buttock. Patient will be given
appropriate instructions and discharged.
Discharge Plan
Departure
Patient Disposition: Home (Routine Discharge)
Date of Disposition: 04/23/24
Time of Disposition: 22:21
Patient with high blood pressure during this ER visit?: Yes
Covid-19: Not Applicable
Discharge Problem:
Hematoma
Instructions: Hematoma
Prescriptions:
No Action
melatonin 5 MG tablet
5 mg PO HS
atorvastatin 80 MG tablet
80 mg PO HS
lorazepam 1 MG tablet
1 mg PO TIDPRN PRN (Reason: ANXIETY)
Patient Comments:
10/28/2023, patient filled this medication on 09/28/2023 for 90 tablets according to PDMP.
methylphenidate HCl 10 mg Tablet
30 mg PO DAILY
Hold Instructions: Resume on 11/15/23. Discuss with your primary care provider before resuming this medication.
Patient Comments:
10/28/2023, patient filled this medication on 10/21/2023 for 270 tablets according to PDMP.
lidocaine-prilocaine 2.5-2.5 % Cream
1 applic TOPICAL DAILYPRN PRN (Reason: PORT )
Rx Instructions:
apply to access site 30 minutes before dialysis.
ezetimibe [Zetia] 10 mg Tablet
10 mg PO DAILY
cetirizine [Zyrtec] 10 mg Tablet
10 mg PO DAILY
sertraline 100 mg Tablet
200 mg PO DAILY
clopidogrel [Plavix] 75 mg Tablet
75 mg PO DAILY
Nephro-Michelle 0.8 mg Tablet
1 tab PO MOWEFR
coQ10 (ubiquinol) 200 mg Capsule
200 mg PO DAILY
calcium acetate 667 mg Tablet
667 mg PO AC
Ozempic 0.25 mg or 0.5 mg (2 mg/3 mL) Pen Injector
0.25 mg SC GRIMM
Eliquis 5 mg Tablet
5 mg PO BID Qty: 60 0RF
amlodipine 2.5 mg Tablet
2.5 mg PO BID Qty: 60 2RF
hydrocodone-acetaminophen 5-325 mg Tablet
1 tab PO BIDPRN PRN (Reason: severe pain)
cefazolin 2 gram Recon Soln
2 g IM MOWEFR
metoprolol succinate 25 mg Tablet Extended Release 24 Hr
25 mg PO DAILY Qty: 30 0RF
Referrals:
Placido Lora Jr., DO [Family Provider] -
Activity Restrictions/Additional Instructions:
You may ice the area as discussed. Return if any worsening of symptoms if increased pain increased swelling or any further concerns.
Interventions
Interventions:
*Risk Screen - Suicide Last Done: 04/23/24 20:03
*General Assessment Last Done: 04/23/24 17:58
*Neglect/Abuse Screening Last Done: 04/23/24 20:03
ED- Fall Risk Assessment Last Done: 04/23/24 20:03
*ED COVID-19 Vaccine History Last Done: 04/23/24 17:58
*Nursing Disposition Last Done: 04/23/24 22:57
ED-Musculoskeletal Assessment Last Done: 04/23/24 20:03
Discharge Date and Time
Discharge Date/Time: 04/23/24 22:57
Print Language: BENGALI
[2024-04-23 20:03] VITALS: BMI 29.0
[2024-04-23 20:11] LABS: % Basophils 0.3 % (0-2); % Eosinophils 4.3 % (0-6); % Immature Granulocytes 0.4 % (0-0.5); % Lymphocytes 19.3 % (20.5-51.1); % Monocytes 9.6 % (1.7-9.3); % Neutrophils 66.1 % (42.2-75.2); Absolute Eosinophils 0.6 10^3/uL (0-0.7); Absolute Immature Granulocytes 0.1 10^3/uL (0-0.05); Absolute Lymphocytes 2.6 10^3/uL (1.2-3.4); Absolute Monocytes 1.3 10^3/uL (0.1-0.6); Absolute Neutrophils 8.8 10^3/uL (1.4-6.5); Hematocrit 30.3 % (39.0-52.0); Mean Corpuscular Hgb 31.4 pg (27.0-31.0); Mean Corpuscular Volume 95.3 fL (80.0-94.0); Mean Platelet Volume 11.4 fL (7.4-10.4); Nucleated Red Blood Cells % 0 % (-); Platelet Count 292 10^3/uL (130-400); Red Blood Cell Count 3.18 10^6/uL (4.70-6.10); Red Cell Dist. Width 15.1 % (11.5-14.5); White Blood Cell Count 13.3 10^3/uL (4.8-10.8)
[2024-04-23 20:30] VITALS: BP 166/78
[2024-04-23 20:41] LABS: ALT (SGPT) 20 U/L (0-50); AST (SGOT) 38 U/L (17-59); Albumin 4.8 g/dl (3.5-5.0); Alkaline Phosphatase 114 U/L (38-126); Blood Urea Nitrogen 46 mg/dl (9-20); Carbon Dioxide 31 mmol/L (22-30); Estimated Creatinine Clearance 13 ml/min; Glucose 97 mg/dl (70-99); Total Bilirubin 0.9 mg/dl (0.2-1.3); Total Protein 8.1 g/dl (6.3-8.2); eGFR 11.41
[2024-04-23 20:52] LABS: Chloride 89 mmol/L (98-107); Potassium 5.6 mmol/L (3.5-5.1); Sodium 135 mmol/L (135-145)
[2024-04-23 22:30] VITALS: BP 168/74
== END 2024-04-23 22:57 | disposition home or self-care (01) ==
LOC: EMR 17:56
PROVIDERS: Nurse Practitioner; EMERGENCY PHYSICIAN Emergency Medicine; FAMILY PHYSICIAN Family Medicine
DX: S30.0XXA Contusion of lower back and pelvis, initial encounter (principal); S70.02XA Contusion of left hip, initial encounter; W19.XXXA Unspecified fall, initial encounter; I25.10 Atherosclerotic heart disease of native coronary artery without angina pectoris; I12.0 Hypertensive chronic kidney disease with stage 5 chronic kidney disease or end stage renal disease; E11.22 Type 2 diabetes mellitus with diabetic chronic kidney disease; N18.6 End stage renal disease; E11.51 Type 2 diabetes mellitus with diabetic peripheral angiopathy without gangrene; E11.40 Type 2 diabetes mellitus with diabetic neuropathy, unspecified; G47.33 Obstructive sleep apnea (adult) (pediatric); E66.9 Obesity, unspecified; E78.00 Pure hypercholesterolemia, unspecified; I48.91 Unspecified atrial fibrillation; K21.9 Gastro-esophageal reflux disease without esophagitis; M19.90 Unspecified osteoarthritis, unspecified site; F41.9 Anxiety disorder, unspecified; F32.A Depression, unspecified; F90.9 Attention-deficit hyperactivity disorder, unspecified type; D64.9 Anemia, unspecified; Z76.82 Awaiting organ transplant status; F17.200 Nicotine dependence, unspecified, uncomplicated; Z99.2 Dependence on renal dialysis; I25.2 Old myocardial infarction; Z95.5 Presence of coronary angioplasty implant and graft; Z85.6 Personal history of leukemia; Z86.73 Personal history of transient ischemic attack (TIA), and cerebral infarction without residual deficits; Z79.01 Long term (current) use of anticoagulants; Z79.02 Long term (current) use of antithrombotics/antiplatelets; R29.6 Repeated falls
CPT/HCPCS: 99284; 73700; 80053; 85025

== ENCOUNTER → 2024-04-28 14:33 | Outpatient (REF) | payer MEDICARE, OTHER, SELFPAY ==
[2024-04-29 14:55] LABS: Hemoglobin 7.2 g/dL (13.0-18.0)
== END ==
LOC: OLAB 14:33
PROVIDERS: ATTENDING PHYSICIAN Specialist
DX: N18.6 End stage renal disease (principal)
CPT/HCPCS: 85018

== ENCOUNTER 2024-04-29 15:32 | Emergency (ER) | payer MEDICARE, OTHER, SELFPAY ==
[2024-04-29] VITALS (8 sets, daily range): BP systolic 115–156; BP diastolic 51–68
--- NOTE | 2024-04-29 15:48 | ED.PDOC.TR ---
ED Provider Triage
-
Patient seen by provider in Triage?: Seen in Triage
Pt was assessed in triage as a rapid assessment to expedite ongoing care with expectation of further assessment.
68-year-old male presenting to the emergency department today with concerns of low hemoglobin found at dialysis today. Denies any chest pain shortness of breath denies any obvious bleeding but did hit his left hip recently and does have some
bruising to the left hip but denies any large hematoma. Labs ordered for further assessment. Stable at time of triage.
[2024-04-29 16:07] LABS: % Basophils 0.4 % (0-2); % Eosinophils 3.3 % (0-6); % Immature Granulocytes 0.2 % (0-0.5); % Lymphocytes 18.1 % (20.5-51.1); % Monocytes 9.7 % (1.7-9.3); % Neutrophils 68.3 % (42.2-75.2); Absolute Eosinophils 0.3 10^3/uL (0-0.7); Absolute Lymphocytes 1.7 10^3/uL (1.2-3.4); Absolute Monocytes 0.9 10^3/uL (0.1-0.6); Absolute Neutrophils 6.3 10^3/uL (1.4-6.5); Hematocrit 21.7 % (39.0-52.0); Hemoglobin 7.2 g/dL (13.0-18.0); Mean Corp Hgb Conc. 33.2 g/dL (33.0-37.0); Mean Corpuscular Hgb 31.6 pg (27.0-31.0); Mean Corpuscular Volume 95.2 fL (80.0-94.0); Mean Platelet Volume 10.9 fL (7.4-10.4); Nucleated Red Blood Cells % 0 % (-); Platelet Count 345 10^3/uL (130-400); Red Blood Cell Count 2.28 10^6/uL (4.70-6.10); Red Cell Dist. Width 15.3 % (11.5-14.5); White Blood Cell Count 9.2 10^3/uL (4.8-10.8)
[2024-04-29 16:15] LABS: APTT 41.6 Sec (23.4-35.0); INR 1.47; PT 17.6 Sec (11.4-14.6)
[2024-04-29 16:34] LABS: ALT (SGPT) 25 U/L (0-50); AST (SGOT) 42 U/L (17-59); Albumin 4.2 g/dl (3.5-5.0); Alkaline Phosphatase 107 U/L (38-126); Blood Urea Nitrogen 22 mg/dl (9-20); Calcium 9.4 mg/dl (8.4-10.2); Carbon Dioxide 31 mmol/L (22-30); Chloride 96 mmol/L (98-107); Glucose 123 mg/dl (70-99); Potassium 4.8 mmol/L (3.5-5.1); Sodium 137 mmol/L (135-145); Total Bilirubin 1.2 mg/dl (0.2-1.3); Total Protein 6.9 g/dl (6.3-8.2); eGFR 22.99
--- NOTE | 2024-04-29 19:03 | ED.GENMED ---
History of Present Illness
<Jose Mascorro PA-C - Last Filed: 04/29/24 20:04>
General
Chief Complaint: Abnormal Lab Value
Source: patient
Time Seen by Provider: 04/29/24 16:47
Travel History
Have you had any contact with someone who has COVID-19?: No
Do you have any symptoms of coronavirus? Fever > 100 degrees, chills, cough, shortness of breath, sore throat, loss of taste or smell, muscle aches, or headache?: No
History of Present Illness
History of Present Illness:
68-year-old male with multiple chronic medical conditions recently seen in this emergency department after an accidental fall and diagnosed with a left gluteal hematoma presenting to the emergency department from dialysis with the patient stating
his hemoglobin went from 11.2-7.2 and was advised to come to the ER for further evaluation. Patient states he does not feel any different than normal. Notes that he had a large amount of ecchymosis on the left buttock extending along the left hip
and down into the groin region but that this has gotten a little bit better over the last few days. He denies any exertional dyspnea, chest pain, shortness of breath, melena or hematochezia, abdominal pain. Of note, patient is on Eliquis. Patient
gets dialysis every Saturday, Saturday, Saturday and received a full dialysis session today. He has no other concerns.
Past History
<Jose Mascorro PA-C - Last Filed: 04/29/24 20:04>
Past History
ED Past Medical History: CAD, Cancer (CML), HTN, Hypercholesterolemia, NIDDM, Renal failure (stage 3), Other (Peripheral artery disease, left femoropopliteal bypass), Other (subdural hematoma) and Other (R foot ulcer; FINESSE; obesity)
ED Past Surgical History: Cardiac and Other (L femoral endarterectomy, popliteal angioplasty)
Social History
Tobacco: Smoker
Alcohol: None
Drug: Marijuana
Personal:
Living: with family
Employment: Disabled
Family History
Family History: Diabetes and Other (reviewed and non-contributory)
Review of Systems
<Jose Mascorro PA-C - Last Filed: 04/29/24 20:04>
Review of Systems
All Other Systems: ROS reviewed and negative except as documented in HPI and ROS
Phy Exam
<Jose Mascorro PA-C - Last Filed: 04/29/24 20:04>
Physical Exam
Physical Exam:
GENERAL: Alert , in no apparent distress
EYE: conjunctiva clear
NECK: Supple, no significant adenopathy.
ENT: o/p clr, mmm.
CARDIAC: Regular rate and rhythm
LUNGS: Clear breath sounds bilaterally, no acute respiratory distress, no wheezes/rales/rhonchi
Rectal exam: Bone-colored stool, heme-negative
NEUROLOGICAL: Alert and oriented
SKIN: Warm and dry, scattered ecchymosis to the left buttock extending towards the right gluteal, ecchymosis also noted along the left lateral hip and into the left inguinal
MUSCULOSKELETAL: well perfused.
PSYCH: Normal and appropriate interaction.
Scores
<ANTONIA May Last Filed: 04/29/24 20:04>
Heart Failure Risk
Heart Failure Risk Score: Not Applicable
Heart Score for Chest Pain Patients
STEMI patient?: Not applicable
Withdrawal Assessment of Alcohol
Withdrawal Assessment Completed?: Not applicable
Course
<ANTONIA May Last Filed: 04/29/24 20:04>
Orders/Labs/Results
Orders:
Orders
04/29/24 15:54
Type+Screen Urgent
Complete Blood Count/With Diff Urgent
Comprehensive Metabolic Panel Urgent
PTT Urgent
Prothrombin Time Urgent
04/29/24 16:48
CT Pelvis W/o Iv Contrast Urgent
Comment:
Reason For Exam: anemia, worsening hematoma left gluteus
04/29/24 17:07
Blood Bank Products [* Blood Bank Products] Urgent
Blood Bank Products: *Packed RBC Leuko(PRBC's)
Quantity: 1
Transfuse Today: Yes
Reason: Anemia
Abnormal Lab Results
04/29/24
15:54
RBC 2.28 L 10^6/uL
(4.70-6.10)
Hgb 7.2 L g/dL
(13.0-18.0)
Hct 21.7 L %
(39.0-52.0)
MCV 95.2 H fL
(80.0-94.0)
MCH 31.6 H pg
(27.0-31.0)
RDW 15.3 H %
(11.5-14.5)
MPV 10.9 H fL
(7.4-10.4)
Absolute Monos (auto) 0.9 H 10^3/uL
(0.1-0.6)
Lymphocytes % 18.1 L %
(20.5-51.1)
Monocytes % 9.7 H %
(1.7-9.3)
PT 17.6 H Sec
(11.4-14.6)
APTT 41.6 H Sec
(23.4-35.0)
Chloride 96 L mmol/L
(98-107)
Carbon Dioxide 31 H mmol/L
(22-30)
BUN 22 H mg/dl
(9-20)
Creatinine 2.9 H mg/dL
(0.7-1.3)
Glucose 123 H mg/dl
(70-99)
Crossmatch IS Only See Detail
04/29/24 15:54
04/29/24 15:54
Vital Signs
Initial and Last Documented VS:
Initial Vital Signs
Temp Pulse Resp BP Pulse Ox
98.5 F 83 18 144/62 98
04/29/24 15:41 04/29/24 15:41 04/29/24 15:41 04/29/24 15:41 04/29/24 15:41
Last Documented Vital Signs
Temp Pulse Resp BP Pulse Ox
98.3 F 74 16 156/68 99
04/29/24 22:42 04/29/24 22:42 04/29/24 22:42 04/29/24 22:42 04/29/24 22:42
<Guido Diaz PA-C - Last Filed: 04/29/24 23:13>
Orders/Labs/Results
Orders:
Orders
04/29/24 15:54
Type+Screen Urgent
Complete Blood Count/With Diff Urgent
Comprehensive Metabolic Panel Urgent
PTT Urgent
Prothrombin Time Urgent
04/29/24 16:48
CT Pelvis W/o Iv Contrast Urgent
Comment:
Reason For Exam: anemia, worsening hematoma left gluteus
04/29/24 17:07
Blood Bank Products [* Blood Bank Products] Urgent
Blood Bank Products: *Packed RBC Leuko(PRBC's)
Quantity: 1
Transfuse Today: Yes
Reason: Anemia
Abnormal Lab Results
04/29/24
15:54
RBC 2.28 L 10^6/uL
(4.70-6.10)
Hgb 7.2 L g/dL
(13.0-18.0)
Hct 21.7 L %
(39.0-52.0)
MCV 95.2 H fL
(80.0-94.0)
MCH 31.6 H pg
(27.0-31.0)
RDW 15.3 H %
(11.5-14.5)
MPV 10.9 H fL
(7.4-10.4)
Absolute Monos (auto) 0.9 H 10^3/uL
(0.1-0.6)
Lymphocytes % 18.1 L %
(20.5-51.1)
Monocytes % 9.7 H %
(1.7-9.3)
PT 17.6 H Sec
(11.4-14.6)
APTT 41.6 H Sec
(23.4-35.0)
Chloride 96 L mmol/L
(98-107)
Carbon Dioxide 31 H mmol/L
(22-30)
BUN 22 H mg/dl
(9-20)
Creatinine 2.9 H mg/dL
(0.7-1.3)
Glucose 123 H mg/dl
(70-99)
Crossmatch IS Only See Detail
04/29/24 15:54
04/29/24 15:54
Vital Signs
Initial and Last Documented VS:
Initial Vital Signs
Temp Pulse Resp BP Pulse Ox
98.5 F 83 18 144/62 98
04/29/24 15:41 04/29/24 15:41 04/29/24 15:41 04/29/24 15:41 04/29/24 15:41
Last Documented Vital Signs
Temp Pulse Resp BP Pulse Ox
98.3 F 74 16 156/68 99
04/29/24 22:42 04/29/24 22:42 04/29/24 22:42 04/29/24 22:42 04/29/24 22:42
<Jose Mascorro PA-C - Last Filed: 04/29/24 20:04>
MDM/Problems Addressed
Differential Diagnosis Includes:
Anemia secondary to hematoma, GI bleeding, anemia of chronic disease
MDM/Problems Addressed:
68-year-old male present emergency department for evaluation of of hemoglobin drop of 4 points in less than 6 days. He is otherwise asymptomatic. Rectal exam was heme-negative. I suspect his hemoglobin drop is likely due to the bleeding/hematoma
secondary to his fall a few days ago. Will repeat labs with plan to likely transfuse. Disposition pending.
Chronic conditions affecting care: Arrhythmia and Kidney disease
Acute Exacerbation and/or Progression of Chronic Illness: Kidney disease
<Jose Mascorro PA-C - Last Filed: 04/29/24 20:04>
*Radiology
Radiology exam reviewed: radiology read reviewed
*Pulse Oximetry
Patient hypoxic: no
<Guido Diaz PA-C - Last Filed: 04/29/24 23:13>
*Critical Care Note
Total Time (30-74mins, 75-104mins- exclusive of procedures): Not Applicable
<Jose Mascorro PA-C - Last Filed: 04/29/24 20:04>
Comment
Comment:
Hemoglobin 7.2. 2 units packed red blood cells ordered.
Patient Management
Escalation/DeEscalation of care consider admission/obs:
Hematoma slightly larger in size however this is very minimal. Continuing to monitor patient in ED.
<Guido Diaz PA-C - Last Filed: 04/29/24 23:13>
Update Note
Update Note:
2207: Tolerated blood transfusion without difficulty. D/C in stable condition into care of spouse
ED Attending Note
<Jose Mascorro PA-C - Last Filed: 04/29/24 20:04>
-
Portions of this chart may have been created with voice recognition software.� Occasional wrong word or��sound alike� substitutions may have occurred due to the inherent limitations of voice recognition software.
Discharge Plan
Departure
Patient Disposition: Home (Routine Discharge)
Date of Disposition: 04/29/24
Time of Disposition: 22:44
Patient with high blood pressure during this ER visit?: Yes
Discharge Problem:
Anemia, gluteal hematoma
Instructions: Anemia caused by low iron
Prescriptions:
No Action
melatonin 5 MG tablet
5 mg PO HS
atorvastatin 80 MG tablet
80 mg PO HS
lorazepam 1 MG tablet
1 mg PO TIDPRN PRN (Reason: ANXIETY)
Patient Comments:
10/28/2023, patient filled this medication on 09/28/2023 for 90 tablets according to PDMP.
methylphenidate HCl 10 mg Tablet
30 mg PO DAILY
Hold Instructions: Resume on 11/15/23. Discuss with your primary care provider before resuming this medication.
Patient Comments:
10/28/2023, patient filled this medication on 10/21/2023 for 270 tablets according to PDMP.
lidocaine-prilocaine 2.5-2.5 % Cream
1 applic TOPICAL DAILYPRN PRN (Reason: PORT )
Rx Instructions:
apply to access site 30 minutes before dialysis.
ezetimibe [Zetia] 10 mg Tablet
10 mg PO DAILY
cetirizine [Zyrtec] 10 mg Tablet
10 mg PO DAILY
sertraline 100 mg Tablet
200 mg PO DAILY
clopidogrel [Plavix] 75 mg Tablet
75 mg PO DAILY
Nephro-Michelle 0.8 mg Tablet
1 tab PO MOWEFR
coQ10 (ubiquinol) 200 mg Capsule
200 mg PO DAILY
calcium acetate 667 mg Tablet
667 mg PO AC
Ozempic 0.25 mg or 0.5 mg (2 mg/3 mL) Pen Injector
0.25 mg SC GRIMM
Eliquis 5 mg Tablet
5 mg PO BID Qty: 60 0RF
amlodipine 2.5 mg Tablet
2.5 mg PO BID Qty: 60 2RF
hydrocodone-acetaminophen 5-325 mg Tablet
1 tab PO BIDPRN PRN (Reason: severe pain)
cefazolin 2 gram Recon Soln
2 g IM MOWEFR
metoprolol succinate 25 mg Tablet Extended Release 24 Hr
25 mg PO DAILY Qty: 30 0RF
Referrals:
Placido Lora Jr., DO [Family Provider] -
Activity Restrictions/Additional Instructions:
You are going to hold your Eliquis for the next 48 hours. After 48 hours you may resume taking Eliquis as you have prescribed. It is also important to get your hemoglobin repeated in around.
Interventions
Interventions:
*Risk Screen - Suicide Last Done: 04/29/24 17:14
*General Assessment Last Done: 04/29/24 17:20
*Neglect/Abuse Screening Last Done: 04/29/24 17:14
ED- Fall Risk Assessment Last Done: 04/29/24 17:14
*ED COVID-19 Vaccine History Last Done: 04/29/24 17:14
Discharge Date and Time
Print Language: MAORI
== END 2024-04-29 23:17 | disposition home or self-care (01) ==
LOC: EMR 15:32
PROVIDERS: Physician Assistant; EMERGENCY PHYSICIAN Emergency Medicine; FAMILY PHYSICIAN Family Medicine
DX: S30.0XXA Contusion of lower back and pelvis, initial encounter (principal); D64.9 Anemia, unspecified; W19.XXXA Unspecified fall, initial encounter; I12.0 Hypertensive chronic kidney disease with stage 5 chronic kidney disease or end stage renal disease; N18.6 End stage renal disease; Z99.2 Dependence on renal dialysis; E78.00 Pure hypercholesterolemia, unspecified; I73.9 Peripheral vascular disease, unspecified; I25.10 Atherosclerotic heart disease of native coronary artery without angina pectoris; E11.51 Type 2 diabetes mellitus with diabetic peripheral angiopathy without gangrene; E11.22 Type 2 diabetes mellitus with diabetic chronic kidney disease; E66.9 Obesity, unspecified; G47.33 Obstructive sleep apnea (adult) (pediatric); F17.200 Nicotine dependence, unspecified, uncomplicated; Z85.6 Personal history of leukemia; Z79.01 Long term (current) use of anticoagulants; Z88.5 Allergy status to narcotic agent; Z91.041 Radiographic dye allergy status; Z91.040 Latex allergy status
CPT/HCPCS: 99285; 36430; 72192; 80053; 85025; 85610; 85730; 86850; 86900; 86901; 86920; P9016

== ENCOUNTER → 2024-05-25 08:02 | Emergency (ER) | payer MEDICARE, OTHER, SELFPAY ==
[2024-05-25 08:05] VITALS: BP 178/76
[2024-05-25 08:13] VITALS: BP 177/88
--- NOTE | 2024-05-25 08:42 | ED.GENMED ---
History of Present Illness
General
Chief Complaint: Weakness
Source: patient, physician and previous hospital records
Exam Limitations: none
Time Seen by Provider: 05/25/24 08:11
Nursing documentation reviewed up to this point in time: agreed with
History of Present Illness
History of Present Illness:
68-year-old male multiple chronic medical conditions, ESRD Saturday, hypercholesterolemia takes Eliquis his chronic anemia
Been having multiple falls over the past year uses a walker 3:30 AM was up to use the restroom and fell between the wall and the toilet did not strike his head, came here wondering about getting some MRIs which have been ordered as an outpatient of
his head and his back, as part of his workup, did not go to dialysis today, usually goes on first shift Saturday, does not believe he struck his head today with thinks he struck it last week, is moving all extremities, feels globally
weak, no overt signs of head or neck trauma
Past History
Past History
ED Past Medical History: CAD, Cancer (CML), HTN, Hypercholesterolemia, NIDDM, Renal failure (stage 3), Other (Peripheral artery disease, left femoropopliteal bypass), Other (subdural hematoma) and Other (R foot ulcer; FINESSE; obesity)
ED Past Surgical History: Cardiac and Other (L femoral endarterectomy, popliteal angioplasty)
Social History
Tobacco: Smoker
Alcohol: None
Drug: Marijuana
Personal:
Living: with family
Employment: Disabled
Family History
Family History: Diabetes and Other (reviewed and non-contributory)
Review of Systems
Review of Systems
All Other Systems: Not applicable
Constitutional: Reports fatigue; Denies fever
EENT: Reports no symptoms
Respiratory: Reports no symptoms
Cardiac: Reports no symptoms
ABD/GI: Reports no symptoms
: Reports no symptoms
Musculoskeletal: Reports no symptoms
Neurological: Reports weakness; Denies headache
Hematologic/Lymphatic: Reports no symptoms
Phy Exam
Physical Exam
Physical Exam:
Physical Exam
General: Pale chronically ill male no overt signs of head or neck trauma
Neck: No tongue
Heart: s1/s2 regular rate and rhythm, no murmur. equal radial pulses.
Lungs: no acute respiratory distress. clear bilaterally
Abdomen: Nontender
Neuro: alert and oriented. no focal neurological deficits moves all EXTR
Skin: no rash
Psychiatric: ooperative
Extremities: no edema.
Course
Orders/Labs/Results
Orders:
Orders
05/25/24 08:30
Cardiac Monitoring- Treatment ONCE
Complete Blood Count/With Diff Urgent
Comprehensive Metabolic Panel Urgent
05/25/24 08:31
Electrocardiogram (*1) Urgent
Reason for Study: Other
Other Reason for Exam: trauma
CT Cervical Spine W/o Iv Contr Urgent
Comment:
Reason For Exam: fa;;
CT Head W/o Iv Contrast Urgent
Comment:
Reason For Exam: fakk
EKG- Treatment ONCE
Vital Signs
Initial and Last Documented VS:
Initial Vital Signs
Temp Pulse Resp BP Pulse Ox
97.6 F 76 16 178/76 100
05/25/24 08:05 05/25/24 08:05 05/25/24 08:05 05/25/24 08:05 05/25/24 08:05
Last Documented Vital Signs
Temp Pulse Resp BP Pulse Ox
97.6 F 77 10 176/75 100
05/25/24 08:05 05/25/24 09:45 05/25/24 09:45 05/25/24 09:42 05/25/24 08:45
MDM/Problems Addressed
Differential Diagnosis Includes:
Deconditioning slip and fall electrolyte abnormality symptomatic anemia
MDM/Problems Addressed:
Fall
Chronic conditions affecting care: DM, HTN, Neurological disorder and Kidney disease
Acute Exacerbation and/or Progression of Chronic Illness: DM, HTN, Neurological disorder and Kidney disease
*Radiology
Radiology exam reviewed: radiology read reviewed
*Pulse Oximetry
Patient hypoxic: no
*EKG
Interpreted by ED Provider?: Yes
Interpretation: abnormal
Comparison EKG: no changes
Heart Rate: 78
Rate: normal
Rhythm: sinus
Ischemia: non-specific ST changes
*Development Assistant Interpretation
Rate: normal
Interpretation: normal
Heart Rate: 78
*Critical Care Note
Total Time (30-74mins, 75-104mins- exclusive of procedures): Not Applicable
Data Reviewed
Review of Other/Old Records Reveals: Labs and Testing
Source: patient, records, physician and previous hospital records
Update Note
Update Note:
Patient overall stable vital signs no overt signs of head or neck trauma is on a blood thinner believes he struck his head last week but not this morning
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
today at 10 AM if he is medically stable
Update, CTs noted verbal report over Homer text negative EKG with no overt signs of significant hyperkalemia
Patient with numerous questions about his chronic medical issues that he would like to have addressed now, I was daniel with him that his pressing issue is getting to dialysis
ED Attending Note
-
Portions of this chart may have been created with voice recognition software.� Occasional wrong word or��sound alike� substitutions may have occurred due to the inherent limitations of voice recognition software.
Discharge Plan
Departure
Patient Disposition: Home (Routine Discharge)
Date of Disposition: 05/25/24
Time of Disposition: 09:49
Patient with high blood pressure during this ER visit?: No
Condition: Good
Discharge Problem:
Chronic kidney disease, stage III (moderate), Multiple falls
Instructions: Generalized Weakness (DC)
Prescriptions:
No Action
melatonin 5 MG tablet
5 mg PO HS PRN (Reason: sleep )
atorvastatin 80 MG tablet
80 mg PO HS
lorazepam 1 MG tablet
1 mg PO TID
Patient Comments:
05/25/2024, filled on 05/16/2024 for 90 tablets per PDMP.
methylphenidate HCl 10 mg Tablet
30 mg PO DAILY
Hold Instructions: Resume on 11/15/23. Discuss with your primary care provider before resuming this medication.
Patient Comments:
05/25/2024, patient filled this medication on 04/28/2024 for 90 tablets according to PDMP.
lidocaine-prilocaine 2.5-2.5 % Cream
1 applic TOPICAL MOWEFR
ezetimibe [Zetia] 10 mg Tablet
10 mg PO DAILY
cetirizine [Zyrtec] 10 mg Tablet
10 mg PO DAILY PRN (Reason: Allergies)
sertraline 100 mg Tablet
200 mg PO DAILY
clopidogrel [Plavix] 75 mg Tablet
75 mg PO DAILY
Nephro-Michelle 0.8 mg Tablet
1 tab PO MOWEFR
coQ10 (ubiquinol) 200 mg Capsule
200 mg PO DAILY
calcium acetate 667 mg Tablet
667 mg PO DIRECTED
Patient Comments:
05/25/2024, pt. takes 1 tab on dialysis days with meals on MoWeFr per pt.
Ozempic 0.25 mg or 0.5 mg (2 mg/3 mL) Pen Injector
0.5 mg SC GRIMM
Eliquis 5 mg Tablet
5 mg PO BID Qty: 60 0RF
amlodipine 2.5 mg Tablet
2.5 mg PO BID Qty: 60 2RF
metoprolol succinate 25 mg Tablet Extended Release 24 Hr
25 mg PO DAILY Qty: 30 0RF
acetaminophen 325 mg Tablet
650 mg PO DAILYPRN PRN (Reason: mild pain)
tizanidine 4 mg Tablet
4 mg PO QID
Vitamin C with Zinc 200-100 mg Tablet
1 tab PO DAILY
magnesium hydroxide [Milk of Magnesia] 400 mg/5 mL Suspension
30 ml PO DAILY PRN (Reason: constipation)
albuterol sulfate 90 mcg/actuation Hfa Aerosol Inhaler
2 puff INHALATION R Q4HPRN PRN (Reason: sob)
mometasone 0.1 % Cream
1 applic TOPICAL BIDPRN PRN (Reason: left ear)
oxycodone 10 mg Tablet
10 mg PO TID
Patient Comments:
05/25/2024, filled on 05/11/2024 for 90 tablets per PDMP.
ipgkmpuwdb-kpxlrcdncsfun-pdao [Fioricet] 50-300-40 mg Capsule
1 cap PO Q6H PRN (Reason: migraine)
Quercetin With Bromelain capsule
1 cap PO DAILY
Referrals:
Placido Lora Jr., DO [Family Provider] -
Activity Restrictions/Additional Instructions:
Go to your dialysis today they are saving a chair for you at 10 AM
Interventions
Interventions:
*Risk Screen - Suicide Last Done: 05/25/24 08:05
*General Assessment Last Done: 05/25/24 08:05
ED- Fall Risk Assessment Last Done: 05/25/24 08:38
ED- Cardiac Assessment Last Done: 05/25/24 08:38
ED- Neurological Assessment Last Done: 05/25/24 08:41
ED- Pulmonary Assessment Last Done: 05/25/24 08:38
ED-Skin Assessment Last Done: 05/25/24 08:38
Discharge Date and Time
Print Language: SWEDISH
[2024-05-25 09:42] VITALS: BP 176/75
[2024-05-25 11:00] VITALS: BP 164/73
== END | disposition home or self-care (01) ==
LOC: EMR 08:02
PROVIDERS: EMERGENCY PHYSICIAN Emergency Medicine; FAMILY PHYSICIAN Family Medicine
DX: R29.6 Repeated falls (principal); I12.9 Hypertensive chronic kidney disease with stage 1 through stage 4 chronic kidney disease, or unspecified chronic kidney disease; N18.30 Chronic kidney disease, stage 3 unspecified; E11.22 Type 2 diabetes mellitus with diabetic chronic kidney disease; F17.200 Nicotine dependence, unspecified, uncomplicated
CPT/HCPCS: 99284; 70450; 72125; 93005

== ENCOUNTER 2024-06-22 22:32 | Inpatient (IN) | payer MEDICARE, OTHER, SELFPAY ==
[2024-06-22] VITALS (8 sets, daily range): BP systolic 103–156; BP diastolic 58–91; BMI 27.9; BMI 26.4
[2024-06-22 18:08] LABS: % Basophils 0.2 % (0-2); % Eosinophils 1.8 % (0-6); % Immature Granulocytes 0.7 % (0-0.5); % Lymphocytes 8.2 % (20.5-51.1); % Monocytes 6.2 % (1.7-9.3); % Neutrophils 82.9 % (42.2-75.2); Absolute Basophils 0.1 10^3/uL (0-0.2); Absolute Eosinophils 0.4 10^3/uL (0-0.7); Absolute Immature Granulocytes 0.2 10^3/uL (0-0.05); Absolute Lymphocytes 1.8 10^3/uL (1.2-3.4); Absolute Monocytes 1.3 10^3/uL (0.1-0.6); Absolute Neutrophils 17.9 10^3/uL (1.4-6.5); Hematocrit 34.6 % (39.0-52.0); Hemoglobin 11.4 g/dL (13.0-18.0); Mean Corp Hgb Conc. 32.9 g/dL (33.0-37.0); Mean Corpuscular Hgb 31.4 pg (27.0-31.0); Mean Corpuscular Volume 95.3 fL (80.0-94.0); Mean Platelet Volume 11.6 fL (7.4-10.4); Nucleated Red Blood Cells % 0 % (-); Platelet Count 162 10^3/uL (130-400); Red Blood Cell Count 3.63 10^6/uL (4.70-6.10); Red Cell Dist. Width 16.6 % (11.5-14.5); White Blood Cell Count 21.5 10^3/uL (4.8-10.8)
[2024-06-22 18:17] LABS: Carbon Dioxide 19 mmol/L (22-30)
[2024-06-22 18:34] LABS: ALT (SGPT) 76 U/L (0-50); Blood Urea Nitrogen 20 mg/dl (9-20); Calcium 5.5 mg/dl (8.4-10.2); Chloride 96 mmol/L (98-107); Glucose 144 mg/dl (70-99); Potassium 5.4 mmol/L (3.5-5.1); Sodium 134 mmol/L (135-145); Total Bilirubin 19.8 mg/dl (0.2-1.3); eGFR 11.41
[2024-06-22 19:14] LABS: AST (SGOT) 61 U/L (17-59); Albumin 4.4 g/dl (3.5-5.0); Alkaline Phosphatase 100 U/L (38-126); Total Protein 6.9 g/dl (6.3-8.2)
--- NOTE | 2024-06-22 19:18 | ED.MUSCINJ ---
HPI-Injury
<Arleen Mcbride NP - Last Filed: 06/30/24 15:42>
General
Chief Complaint: Fall
Source: patient
Exam Limitations: none
Time Seen by Provider: 06/22/24 14:54
Nursing documentation reviewed up to this point in time: agreed with
History of Present Illness-Injury
Is this injury a work related problem?: No
Is pt an associate of [facility]/[place]?: No
Initial Injury comments:
Patient to ED s/p fall at home. Brought to ED by EMS. Unclear where fall occurred. He is confused. No family at bedside. COmplains of headache.
Past History
<Arleen Mcbride NP - Last Filed: 06/30/24 15:42>
Past History
ED Past Medical History: CAD, Cancer (CML), HTN, Hypercholesterolemia, NIDDM, Renal failure (stage 3), Other (Peripheral artery disease, left femoropopliteal bypass), Other (subdural hematoma) and Other (R foot ulcer; FINESSE; obesity)
ED Past Surgical History: Cardiac and Other (L femoral endarterectomy, popliteal angioplasty)
Social History
Tobacco: Smoker
Alcohol: None
Drug: Marijuana
Personal:
Living: with family
Employment: Disabled
Family History
Family History: Diabetes and Other (reviewed and non-contributory)
Review of Systems
<Arleen cMbride NP - Last Filed: 06/30/24 15:42>
Review of Systems
Allergies reviewed?: Yes
All Other Systems: ROS reviewed and negative except as documented in HPI and ROS
Constitutional: Reports fatigue
EENT: Reports no symptoms
Respiratory: Reports no symptoms
Cardiac: Reports no symptoms
ABD/GI: Reports no symptoms
: Reports no symptoms
Musculoskeletal: Reports other (chronic neck and back pain)
Skin: Reports no symptoms
Neurological: Reports headache and weakness
Psychiatric: Reports no symptoms
Phy Exam
<Arleen Mcbride NP - Last Filed: 06/30/24 15:42>
General Physical Exam
General Presentation: no apparent distress
General age: appears stated age
General Skin: warm and dry
General Habitus: frail
General Mental: confused
General Hydration: appears well hydrated
Cardiovascular Exam
Cardiovascular Exam: regular rate/rhythm and no edema
Pulmonary Exam
Pulmonary Exam: lungs clear and no respiratory distress
Gastrointestinal Exam
Gastrointestinal Exam: normal bowel sounds, non tender and soft
Neurological Exam
Neurological Exam: alert, CN II-XII intact, no motor deficits, normal reflexs, no sensory deficits and speech normal
Musculoskeletal Exam
Musculoskeletal Exam: full ROM
Skin Exam
Skin Exam: normal color, warm/dry and no rash
Psychiatric Exam
Psychiatric Exam: normal mood/affect
Injury Course
<Arleen Mcbride CAN REPAIRER - Last Filed: 06/30/24 15:42>
Orders/Labs/Results
Orders:
Orders
06/22/24 13:31
CT Head W/o Iv Contrast Urgent
Comment:
Reason For Exam: fall on thinners
06/22/24 17:35
Electrocardiogram (*1) Urgent
Reason for Study: QTc Monitoring
EKG- Treatment ONCE
06/22/24 18:00
Complete Blood Count/With Diff Urgent
Comprehensive Metabolic Panel Urgent
06/22/24 18:37
US Abdomen Complete/Upper Urgent
Comment:
Reason For Exam: elevated Tbili
06/22/24 19:13
Ammonia Urgent
Lactic Acid Urgent
06/22/24 19:17
CR Chest - 2 Views Urgent
Comment:
Reason For Exam: sob
06/22/24 21:30
COVID-19 Antigen Urgent
Source: Nasal Swab
Blood Culture Urgent
PETRA Source: Blood/Venous
Specimen Description:
06/22/24 21:42
Urine Drug Abuse Screen Urgent
Date Specimen was Collected: 06/23/24
Time Specimen was Collected: 02:30
06/22/24 21:45
Urinalysis Urgent
Date Specimen was Collected: 06/22/24
Time Specimen was Collected: 19:13
06/22/24 21:51
Calcium Gluconate 2 gram/100mL [Calcium Gluconate] 2 gram in 100 ml IV ONCE
06/22/24 21:53
Admit/Transfer Patient As Directed
Co-Sign Provider:
Level of Care: Inpatient admission
Assign to:: Telemetry
Physician / Group: Jose
Diagnosis: Acute TME, Hyperbilirubinemia
Reason for Telemetry: Arrhythmia
Date to Stop Telemetry: 06/25/24
Time to Stop Telemetry: 11:00
Reason for Hospitalization: Acute TME, Hyperbilirubinemia
Expected length of stay greater than two midnights?: Yes
ELOS- Estimated Length of Stay in days: 3
I certify the patient meets the requirements for IP care: Yes
PRN Pain Medication Management As Directed
May give lesser potent ordered pain med per pt: Yes
preference::
Protocol:: Medication orders for pain may be administered in a
manner that supports deferring to patient preference
when the pt is:
- Requesting an ordered lesser potent pain medication.
Least to most potent pain medications are defined
as: acetaminophen < NSAID < tramadol < opioids
(morphine, oxycodone, hydromorphone).
- Requesting a lesser dose of the same medication IF
ORDERED.
- Requesting a less intrusive route of administration
if both routes are prescribed by the provider (PO <
IV).
06/22/24 21:55
ESR [Erythrocyte Sed Rate] Urgent
Haptoglobin [S] Urgent
LDH Urgent
LFT [Utdaf-Brol-Oyfkzcs] Urgent
06/22/24 22:07
Code Status As Directed
Resuscitation Status: Full Code
06/22/24 23:31
Acetaminophen [Tylenol] 650 mg PO Q4HPRN PRN
Dextrose 50%-Water [Dextrose 50% Syringe] 12.5 grams IV [id number] PRN
Glucagon [GlucaGen] 1 mg IM PRN PRN
Oxycodone [Roxicodone] 10 mg PO TIDPRN PRN
06/22/24 23:31
Consult Notification Routine
Specialty to Notify: Nephrology
Date consulting provider notified: 06/23/24
Time consulting provider notified: 08:08
Notified:: Provider
Comment: TT to DR. Anderson
NEPHROLOGY CONSULT Routine
Consulting Provider: Fabián Anderson V.
Was physician already notified: No
Reason for consult: ESRD
TSH Reflex To Free T4 Routine
Activity As Directed
Activity Level: Ambulate
With Assistance
Bedside Glucose Monitoring As Directed
Frequency: AC&HS
Additional Instructions:: Change to q6h if pt on TPN, tube feeding or not eating
Bladder Scan As Directed
Follow Bladder Retention/Intermittent Cath Algorithm?: Yes
PRN if no void in __ hours: 6
Frequency: Per Retention Algorithm
If Bladder Scan Result >: 400
then:: Straight cath
EKG with chest pain [ECG as needed] As Directed
ECG as needed for:: Chest Pain
I/O [Intake/ Output] As Directed
Frequency: Per unit guidelines
Orthostatic Vital Signs As Directed
Orthostatic VS Frequency: BID
Pneumatic Compression Sleeves As Directed
Type: Knee high
Straight Cath As Directed
Frequency: Per Retention Algorithm
Additional Instructions: straight cath as needed per acute urinary retention algorithm for 24 hrs
Additional Instructions: for bladder scan greater than 400 mL
Vital Signs As Directed
Frequency: Per unit guidelines
Weight As Directed
Frequency: Daily
Oxygen Therapy [O2 Therapy] [RESP] Routine
Titrate/Wean O2 to maintain O2 sat greater than (%): 94
Ot Eval And Treat Routine
PT Consult [Pt Eval And Treat] Routine
Activity Level: Ambulate
With Assistance
DX Deep Vein Thrombosis Video Routine
06/22/24 23:45
Lorazepam [Ativan] 0.5 mg PO TIDPRN PRN
06/23/24 03:00
Urine Microscopic Urgent
Date Specimen was Collected: 06/22/24
Time Specimen was Collected: 19:13
06/23/24 06:00
EKG [Electrocardiogram (*1)] IN AM
Reason for Study: Chest Pain
1800 calorie (15 carb) Diabetic
At Your Request: Non-Participating
Diabetic Diet: Potassium, 2 Gram
06/23/24 07:20
Complete Blood Count/No Diff IN AM
Glycohemoglobin (HgbA1c) IN AM
Magnesium IN AM
Phosphorus IN AM
06/23/24 07:30
Insulin Aspart Corrective Low [Novolog Flexpen-Low Resistance] See Protocol SC AC
06/23/24 08:00
Amlodipine [Norvasc] 2.5 mg PO BID
Apixaban [Eliquis] 5 mg PO BID
Calcium Acetate [Phoslo] 667 mg PO MEALS
Clopidogrel Bisulfate [Plavix] 75 mg PO DAILY
Metoprolol Xl [Toprol Xl] 25 mg PO DAILY
Sertraline HCl [Zoloft] 200 mg PO DAILY
06/25/24 11:00
DC Protocol for Telemetry ONCE
Abnormal Lab Results
06/22/24 06/22/24 06/22/24
18:00 19:13 21:55
WBC 21.5 H 10^3/uL
(4.8-10.8)
RBC 3.63 L 10^6/uL
(4.70-6.10)
Hgb 11.4 L g/dL
(13.0-18.0)
Hct 34.6 L %
(39.0-52.0)
MCV 95.3 H fL
(80.0-94.0)
MCH 31.4 H pg
(27.0-31.0)
MCHC 32.9 L g/dL
(33.0-37.0)
RDW 16.6 H %
(11.5-14.5)
MPV 11.6 H fL
(7.4-10.4)
Abs Immat Gran (auto) 0.2 H 10^3/uL
(0-0.05)
Absolute Neuts (auto) 17.9 H 10^3/uL
(1.4-6.5)
Absolute Monos (auto) 1.3 H 10^3/uL
(0.1-0.6)
Immature Gran % 0.7 H %
(0-0.5)
Neutrophils % 82.9 H %
(42.2-75.2)
Lymphocytes % 8.2 L %
(20.5-51.1)
Sodium 134 L mmol/L
(135-145)
Potassium 5.4 H mmol/L
(3.5-5.1)
Chloride 96 L mmol/L
(98-107)
Carbon Dioxide 19 L mmol/L
(22-30)
Creatinine 5.2 H* mg/dL
(0.7-1.3)
Glucose 144 H mg/dl
(70-99)
Calcium 5.5 L* mg/dl
(8.4-10.2)
Total Bilirubin 19.8 H* mg/dl
(0.2-1.3)
AST 61 H U/L
(17-59)
ALT 76 H U/L 69 H U/L
(0-50) (0-50)
Ammonia < 9 L umol/L
(9-30)
06/22/24 18:00
06/22/24 18:00
<Benjamin Gomez, DO - Last Filed: 06/22/24 19:20>
Orders/Labs/Results
Orders:
Orders
06/22/24 13:31
CT Head W/o Iv Contrast Urgent
Comment:
Reason For Exam: fall on thinners
06/22/24 17:35
Electrocardiogram (*1) Urgent
Reason for Study: QTc Monitoring
EKG- Treatment ONCE
06/22/24 18:00
Complete Blood Count/With Diff Urgent
Comprehensive Metabolic Panel Urgent
06/22/24 18:37
US Abdomen Complete/Upper Urgent
Comment:
Reason For Exam: elevated Tbili
06/22/24 19:13
Ammonia Urgent
Lactic Acid Urgent
06/22/24 19:17
CR Chest - 2 Views Urgent
Comment:
Reason For Exam: sob
06/22/24 21:30
COVID-19 Antigen Urgent
Source: Nasal Swab
Blood Culture Urgent
PETRA Source: Blood/Venous
Specimen Description:
06/22/24 21:42
Urine Drug Abuse Screen Urgent
Date Specimen was Collected: 06/23/24
Time Specimen was Collected: 02:30
06/22/24 21:45
Urinalysis Urgent
Date Specimen was Collected: 06/22/24
Time Specimen was Collected: 19:13
06/22/24 21:51
Calcium Gluconate 2 gram/100mL [Calcium Gluconate] 2 gram in 100 ml IV ONCE
06/22/24 21:53
Admit/Transfer Patient As Directed
Co-Sign Provider:
Level of Care: Inpatient admission
Assign to:: Telemetry
Physician / Group: Jose
Diagnosis: Acute TME, Hyperbilirubinemia
Reason for Telemetry: Arrhythmia
Date to Stop Telemetry: 06/25/24
Time to Stop Telemetry: 11:00
Reason for Hospitalization: Acute TME, Hyperbilirubinemia
Expected length of stay greater than two midnights?: Yes
ELOS- Estimated Length of Stay in days: 3
I certify the patient meets the requirements for IP care: Yes
PRN Pain Medication Management As Directed
May give lesser potent ordered pain med per pt: Yes
preference::
Protocol:: Medication orders for pain may be administered in a
manner that supports deferring to patient preference
when the pt is:
- Requesting an ordered lesser potent pain medication.
Least to most potent pain medications are defined
as: acetaminophen < NSAID < tramadol < opioids
(morphine, oxycodone, hydromorphone).
- Requesting a lesser dose of the same medication IF
ORDERED.
- Requesting a less intrusive route of administration
if both routes are prescribed by the provider (PO <
IV).
06/22/24 21:55
ESR [Erythrocyte Sed Rate] Urgent
Haptoglobin [S] Urgent
LDH Urgent
LFT [Gkwdi-Vpnl-Jwsprii] Urgent
06/22/24 22:07
Code Status As Directed
Resuscitation Status: Full Code
06/22/24 23:31
Acetaminophen [Tylenol] 650 mg PO Q4HPRN PRN
Dextrose 50%-Water [Dextrose 50% Syringe] 12.5 grams IV [id number] PRN
Glucagon [GlucaGen] 1 mg IM PRN PRN
Oxycodone [Roxicodone] 10 mg PO TIDPRN PRN
06/22/24 23:31
Consult Notification Routine
Specialty to Notify: Nephrology
Date consulting provider notified: 06/23/24
Time consulting provider notified: 08:08
Notified:: Provider
Comment: TT to DR. Anderson
NEPHROLOGY CONSULT Routine
Consulting Provider: Fabián Anderson V.
Was physician already notified: No
Reason for consult: ESRD
TSH Reflex To Free T4 Routine
Activity As Directed
Activity Level: Ambulate
With Assistance
Bedside Glucose Monitoring As Directed
Frequency: AC&HS
Additional Instructions:: Change to q6h if pt on TPN, tube feeding or not eating
Bladder Scan As Directed
Follow Bladder Retention/Intermittent Cath Algorithm?: Yes
PRN if no void in __ hours: 6
Frequency: Per Retention Algorithm
If Bladder Scan Result >: 400
then:: Straight cath
EKG with chest pain [ECG as needed] As Directed
ECG as needed for:: Chest Pain
I/O [Intake/ Output] As Directed
Frequency: Per unit guidelines
Orthostatic Vital Signs As Directed
Orthostatic VS Frequency: BID
Pneumatic Compression Sleeves As Directed
Type: Knee high
Straight Cath As Directed
Frequency: Per Retention Algorithm
Additional Instructions: straight cath as needed per acute urinary retention algorithm for 24 hrs
Additional Instructions: for bladder scan greater than 400 mL
Vital Signs As Directed
Frequency: Per unit guidelines
Weight As Directed
Frequency: Daily
Oxygen Therapy [O2 Therapy] [RESP] Routine
Titrate/Wean O2 to maintain O2 sat greater than (%): 94
Ot Eval And Treat Routine
PT Consult [Pt Eval And Treat] Routine
Activity Level: Ambulate
With Assistance
DX Deep Vein Thrombosis Video Routine
06/22/24 23:45
Lorazepam [Ativan] 0.5 mg PO TIDPRN PRN
06/23/24 03:00
Urine Microscopic Urgent
Date Specimen was Collected: 06/22/24
Time Specimen was Collected: 19:13
06/23/24 06:00
EKG [Electrocardiogram (*1)] IN AM
Reason for Study: Chest Pain
1800 calorie (15 carb) Diabetic
At Your Request: Non-Participating
Diabetic Diet: Potassium, 2 Gram
06/23/24 07:20
Complete Blood Count/No Diff IN AM
Glycohemoglobin (HgbA1c) IN AM
Magnesium IN AM
Phosphorus IN AM
06/23/24 07:30
Insulin Aspart Corrective Low [Novolog Flexpen-Low Resistance] See Protocol SC AC
06/23/24 08:00
Amlodipine [Norvasc] 2.5 mg PO BID
Apixaban [Eliquis] 5 mg PO BID
Calcium Acetate [Phoslo] 667 mg PO MEALS
Clopidogrel Bisulfate [Plavix] 75 mg PO DAILY
Metoprolol Xl [Toprol Xl] 25 mg PO DAILY
Sertraline HCl [Zoloft] 200 mg PO DAILY
06/25/24 11:00
DC Protocol for Telemetry ONCE
Abnormal Lab Results
06/22/24 06/22/24 06/22/24
18:00 19:13 21:55
WBC 21.5 H 10^3/uL
(4.8-10.8)
RBC 3.63 L 10^6/uL
(4.70-6.10)
Hgb 11.4 L g/dL
(13.0-18.0)
Hct 34.6 L %
(39.0-52.0)
MCV 95.3 H fL
(80.0-94.0)
MCH 31.4 H pg
(27.0-31.0)
MCHC 32.9 L g/dL
(33.0-37.0)
RDW 16.6 H %
(11.5-14.5)
MPV 11.6 H fL
(7.4-10.4)
Abs Immat Gran (auto) 0.2 H 10^3/uL
(0-0.05)
Absolute Neuts (auto) 17.9 H 10^3/uL
(1.4-6.5)
Absolute Monos (auto) 1.3 H 10^3/uL
(0.1-0.6)
Immature Gran % 0.7 H %
(0-0.5)
Neutrophils % 82.9 H %
(42.2-75.2)
Lymphocytes % 8.2 L %
(20.5-51.1)
Sodium 134 L mmol/L
(135-145)
Potassium 5.4 H mmol/L
(3.5-5.1)
Chloride 96 L mmol/L
(98-107)
Carbon Dioxide 19 L mmol/L
(22-30)
Creatinine 5.2 H* mg/dL
(0.7-1.3)
Glucose 144 H mg/dl
(70-99)
Calcium 5.5 L* mg/dl
(8.4-10.2)
Total Bilirubin 19.8 H* mg/dl
(0.2-1.3)
AST 61 H U/L
(17-59)
ALT 76 H U/L 69 H U/L
(0-50) (0-50)
Ammonia < 9 L umol/L
(9-30)
06/22/24 18:00
06/22/24 18:00
<Arleen Mcbride NP - Last Filed: 06/30/24 15:42>
*Radiology
Radiology exam reviewed: radiology read reviewed
*Pulse Oximetry
Patient hypoxic: no
*Critical Care Note
Total Time (30-74mins, 75-104mins- exclusive of procedures): Not Applicable
<Arleen Mcbride NP - Last Filed: 06/30/24 15:42>
Update Note
Update Note:
Patient to ED s/p fall. He is confused. Multiple calls placed to . She finally returned calls, unaware that he was in ED. She works her in IT. She was not contacted by patient regarding fall. Reports frequent falls at home She confirms
confusion, not typical for him. He was supposed to go to Dialyisis today. He does not remember if he went to appointment. He drives self to and from dialysis. Home door cam shows patient driving his car thru the back yard. No fall witnessed on
camera. Labs reviewed. Elevated WBC (no source identified),LFT's, Tbili. Abdominal US results pendingLactic and ammonia normal. Will admit to hospitalists for confusion, weakness, falls.
Abdominal US: no biliary duct dilitation. No gallstones/cholecystitis. Liver:'Diffuse increased echogenicity of the liver, suggesting fatty infiltration and/or diffuse hepatocellular disease. No evidence of a focal hepatic lesion.'
ED Attending Note
<Arleen Mcbride CAN REPAIRER - Last Filed: 06/30/24 15:42>
-
Portions of this chart may have been created with voice recognition software.� Occasional wrong word or��sound alike� substitutions may have occurred due to the inherent limitations of voice recognition software.
<Benjamin Gomez DO - Last Filed: 06/22/24 19:20>
ED Attending Note
Patient seen and examined by attending physician: Yes
I performed the substantive portion of visit, reviewed & personally made and approve the management plan that is documented in note by myself or BENOIT.: Yes
ED Attending Note:
Seen with CAN REPAIRER examined independently ESRD recurrent falls apparently went to dialysis the was found driving his car in the backyard, confused possibly fell out of the car here he looks chronically ill he is confused, CT noted labs are noted has a new
elevated LFTs and T. bili will check ammonia lipase chest x-ray will require admission
Discharge Plan
Departure
Patient Disposition: Admit
Date of Disposition: 06/22/24
Time of Disposition: :
Presentation/result/management discussed w/ accepting MD/DO: Hospitalist
Condition: Fair
Covid-19: Not Applicable
Discharge Problem:
Weakness, Abnormal LFTs
Interventions
Interventions:
*Risk Screen - Suicide Last Done: 06/23/24 00:44
*General Assessment Last Done: 06/22/24 13:26
*Neglect/Abuse Screening Last Done: 06/22/24 13:26
*Nursing Disposition Last Done: 06/22/24 23:25
ED-Musculoskeletal Assessment Last Done: 06/22/24 14:18
ED- Neurological Assessment Last Done: 06/22/24 14:18
ED-Skin Assessment Last Done: 06/22/24 14:18
Discharge Date and Time
Discharge Date/Time: 06/22/24 23:26
[2024-06-22 19:33] LABS: Ammonia < 9 umol/L (9-30); Lactic Acid 1.2 mmol/L (0.7-2.0)
[2024-06-22 22:01] LABS: COVID-19 Antigen Negative (Negative)
[2024-06-22 22:23] LABS: ALT (SGPT) 69 U/L (0-50); AST (SGOT) 51 U/L (17-59); Albumin 4.1 g/dl (3.5-5.0); Alkaline Phosphatase 85 U/L (38-126); Direct Bilirubin 0.4 mg/dl (0.0-0.4); LDH 193 U/L (120-246); Total Bilirubin 0.6 mg/dl (0.2-1.3); Total Protein 6.5 g/dl (6.3-8.2)
--- NOTE | 2024-06-22 22:28 | HPS.HSE ---
Family Physician
-
Family Physician: Placido Lora Jr.
Chief Complaint
-
Weakness, Confusion, Falls
History of Present Illness
Patient is a 68y M with PMH significant for ASCVD, hypertension, DM-II and ESRD on HD who presents to ED complaining of weakness and falls. Patient was hospitalized here in February 2024 with similar symptoms. He has had chronic issues with back
pain, chronic pain and ambulatory dysfunction. He is followed by Pain Management as an outpatient. Patient states that his symptoms have gradually been progressing.
He states that he has pain in the lower abdomen and the lower back. He has extreme weakness in both legs and they will frequently 'go out' on him causing him to fall. He states that he fell today. He denies any lightheadedness, dizziness, chest
pain or dyspnea. He denies any recent sore throat, cough, fevers / chills, N/V/D. He urinates about 3 times per day and denies any dysuria or incontinence.
His has been increasingly concerned with his apparent confusion and gait dysfunction. She notes Ring video at home showing him driving his car very slowly around the [facility]. Patient does not recall this.
Patient states that he went to HD today and 'everything was fine'.
He notes that he is taking tizanidine for his chronic pain. I noted that this was discontinued following his February admission and he seemed to be unaware of this. Regardless, he has continued to take it - up to 4 times daily.
He denies taking any illicit or unprescribed medications for control of his pain.
Medical History
Past Medical History
Past Medical History: Reports Other
Additional Past Medical History:
ASCVD (CAD, PAD, Carotid Disease, CVA / TIA)
ESRD on HD
Anxiety/Depression/ADHD
Hypertension
Pulmonary Hypertension
Dyslipidemia
DM-II
Anemia of chronic disease
BPH
RBBB
Chronic HFpEF
Paroxysmal atrial fibrillation
Past Surgical History: Reports Other
Additional Past Surgical History:
Trigger Finger Surgeries
Lumbar Laminectomy / Fusion
Left Femoral Endarterectomy
Left SFA / Popliteal Angioplasty
Left Fem-Pop Bypass
Right SFA / Popliteal Angioplasty
Right ISELA
Left ISELA
Right Shoulder Surgery
CABG x 3
PTCA with Stent
Multiple Foot Surgeries
LUE AVG Placement
Social History
Tobacco: Former Smoker (1-1.5ppd for 30+ years. Quit 2 years ago.)
Alcohol: None
Personal:
Living: With Family
Family History
Family History: Not pertinent
Allergies / Home Medications
Allergies reflects when Allergies were last updated in [facility].
Home Medications with original date entered in [facility]
Allergy/Medication List:
Allergies
Allergy/AdvReac Type Severity Reaction Status Date / Time
Iodinated Contrast Media Allergy Nausea / Verified 06/22/24 13:30
Vomiting
latex Allergy Itching- Verified 06/22/24 13:30
pt
declines
having
this
allergy
morphine Allergy Itching- Verified 06/22/24 13:30
pt
declines
having
this
allergy
Home Medications
melatonin 5 mg tablet 5 mg PO HS sleep 04/06/19
atorvastatin 80 mg tablet 80 mg PO HS High cholesterol 01/25/21
lorazepam 1 mg tablet 1 mg PO TID 09/11/22
lidocaine-prilocaine 2.5 %-2.5 % topical cream 1 applic topical MOWEFR apply to access site 30 minutes before dialysis 10/28/23
methylphenidate HCl 10 mg tablet 30 mg PO DAILY Neurological Condition 10/28/23
ezetimibe 10 mg tablet (Zetia) 10 mg PO DAILY High Cholesterol 11/14/23
calcium acetate 667 mg tablet 667 mg PO MEALS Kidney Disease 02/19/24
clopidogrel 75 mg tablet (Plavix) 75 mg PO DAILY Blood Clot Prevention/Tx 02/19/24
coQ10 (ubiquinol) 200 mg capsule 200 mg PO DAILY Supplement 02/19/24
semaglutide 0.25 mg or 0.5 mg (2 mg/3 mL) subcutaneous pen injector (Ozempic) 0.5 mg SC GRIMM Diabetes 02/19/24
sertraline 100 mg tablet 200 mg PO DAILY Mental Health 02/19/24
vitamin B complex-vitamin C-folic acid 0.8 mg tablet (Nephro-Michelle) 1 tab PO MOWEFR Supplement 02/19/24
amlodipine 2.5 mg tablet 2.5 mg PO BID #60 tabs 02/28/24
apixaban 5 mg tablet (Eliquis) 5 mg PO BID #60 tabs 02/28/24
metoprolol succinate 25 mg tablet,extended release 24 hr 25 mg PO DAILY #30 tabs 03/14/24
Quercetin With Bromelain 1 cap PO DAILY 05/25/24
acetaminophen 325 mg tablet 650 mg PO DAILYPRN PRN mild pain 05/25/24
albuterol sulfate 90 mcg/actuation aerosol inhaler 2 puff inhalation R Q4HPRN PRN sob 05/25/24
magnesium hydroxide 400 mg/5 mL oral suspension (Milk of Magnesia) 30 ml PO DAILY PRN constipation 05/25/24
mometasone 0.1 % topical cream 1 applic topical BIDPRN PRN left ear 05/25/24
oxycodone 10 mg tablet 10 mg PO TID 05/25/24
tizanidine 4 mg tablet 4 mg PO TID 05/25/24
zinc sulfate 50 mg zinc (220 mg) tablet 50 mg PO DAILY 06/22/24
Review of Systems
-
History Source: Patient
A 12 point ROS was completed and negative except as noted: Yes
Constitutional: Reports Weight Loss and Fatigue; Denies Fever or Chills
EENT: Denies Sore Throat
Respiratory: Denies Cough or Trouble Breathing
Cardiac: Denies Chest Pain or Palpitations
Abdomen/GI: Reports Abdominal Pain; Denies Nausea, Vomiting, Diarrhea, Constipated, Bloody Stools or Black Stools
: Denies Dysuria, Frequency or Flank Pain
Musculoskeletal: Reports Other (Low Back Pain); Denies Joint Pain
Neurological: Reports Weakness; Denies Dizzy or Headache
Physical Exam
Vital Signs
Vital Signs
Temp Pulse Resp BP Pulse Ox
98.8 F 83 17 156/58 97
06/22/24 13:26 06/22/24 20:45 06/22/24 20:45 06/22/24 20:07 06/22/24 20:45
Physical Exam
General: Other (68y M in no acute distress.)
HEENT: Moist mucous membranes and Other (Pupils are pinpoint. No scleral icterus. Neck supple.)
Respiratory: Other (Few bibasilar rales. No wheeze / rhonchi.)
Cardiac: S1/S2, Regular Rhythm and Murmur (II/ SHOAIB)
GI: Soft, Non Tender, Non Distended, Normal Bowel Sounds and Other (Obese.)
Musculoskeletal: No Clubbing, No Cyanosis and No Edema
Skin: Other (LUE AVF with pos thrill / bruit.)
Neuro: Awake, Alert and Other (Patient has poor recall of some events leading to admission. Believes it is almost July. Symmetric weakness in the LEs.)
Psych: No Agitated or Anxious
Laboratory Results
-
06/22/24 18:00
06/22/24 18:00
Laboratory Results
Lactic Acid 1.2 mmol/L (0.7-2.0) 06/22/24 19:13
Total Bilirubin 0.6 mg/dl (0.2-1.3) D 06/22/24 21:55
AST 51 U/L (17-59) 06/22/24 21:55
ALT 69 U/L (0-50) H 06/22/24 21:55
Alkaline Phosphatase 85 U/L (38-126) 06/22/24 21:55
Impression/Plan
-
A/P: Patient is a 68y M with PMH significant for ASCVD, DM-II and ESRD on HD who presents to ED complaining of generalized weakness, ambulatory dysfunction and frequent falls with confusion.
Generalized Weakness
Ambulatory Dysfunction - Acute on Chronic
Multiple Falls at Home
Acute TME
- Admit for further evaluation and treatment.
- This is an acute increase in a very chronic issue for Paramjit with new / worsened component of confusion.
- Patient with long history of gait abnormality, LE weakness, etc.
- PT / OT evals in the AM.
- Follow for results and consider rehab / SNF stay if needed prior to return home.
- Consider spinal imaging / MRI to evaluate for occult infectious process, etc.
- Decrease / eliminate medications that will contribute to sedation / imbalance / etc.
Hyperbilirubinemia
- Apparent lab error.
- Initial TBili was 19 without evidence of jaundice, etc.
- Labs repeated and Bili = 0.6.
- US abdomen done in the ED and was unremarkable.
Hypocalcemia
- IV replacement ordered in the ED.
- Continue OP PhosLo.
- Follow for changes.
Leukocytosis
- Unclear etiology.
- No fever or other symptoms suggestive of infection.
- Observe off of abx and monitor for any new symptoms.
Paroxysmal Atrial Fib / Flutter
- Stable / in NSR at present.
- Continue current medications for now without changes.
- Monitor on telemetry.
- Avoid tizanidine which is still on active med list.
- Continue Eliquis for stroke risk reduction.
ASCVD
- Stable. Significant past history of CAD, PAD, carotid disease, etc with multiple interventions, bypass surgeries, etc.
- Continue current CV med regimen including Eliquis and Plavix.
ESRD on HD
- Stable. Patient states that he completed his usual HD session today.
- Nephrology consulted for HD needs during inpatient stay.
Benign Hypertension
- Stable. Continue outpatient meds with holding parameters.
DM-II
- Stable. Follow glucose and cover with SSI as needed.
Chronic Back Pain
Chronic Opioid Dependence
- Stable. Continue oxycodone - but change to PRN.
- Remain off of tizanidine / 'muscle relaxants'.
- PT / OT as noted above.
Anxiety / Depression / ADHD
- Stable. Continue sertraline.
- Hold methylphenidate.
DVT Prophylaxis: On Eliquis.
Code Status: Full
[2024-06-22 22:34] LABS: Erythrocyte Sed Rate 11 mm/hour (0-20)
[2024-06-22] MEDS: CALCIUM GLUCONATE 100 IV (22:34)
[2024-06-22 23:57] LABS: Glucose - Point of Care 75 mg/dl (70-99)
[2024-06-23] VITALS (9 sets, daily range): BP systolic 118–181; BP diastolic 63–85; PULSE 77–95; O2SAT 95; BMI 26.4
[2024-06-23] MEDS: ATIVAN 0.5 MG PO ×3 (00:55→20:19)
--- NOTE | 2024-06-23 02:30 | PTCARENOTE ---
Receive pt from ER. Pt alert oriented X3, calm and cooperative. Pt states that he is weak, has difficulty walking. Pt pulled over to his bed from the stretcher. Pt oriented to the room, call deluca within reach, bed alarm in place. Pt denies headache,
SOB, or chest pain, states that his chronic back pain is tolerable at this time. Pt states that he did fall in his driveway today and hit the back of his head. Pt states that hypoglycemia and weakness of his legs cause him to fall. Pt on NSR w/BBB
on telemonitor. VSS (T=98.2, HR=86, RR=18, CP=594/79, SpO2=98% on RA). Pt BS=75, pt given a snack. Pt also asking for ativan, which was given as per order. Will continue to monitor.
[2024-06-23 03:11] LABS: Glucose - Point of Care 110 mg/dl (70-99)
[2024-06-23 03:41] LABS: Urine Albumin 2+ (Neg - Trace); Urine Bilirubin 1+ (Negative); Urine Character Clear (Clear); Urine Color Yellow; Urine Glucose Negative (Negative); Urine Ketone Negative (Negative); Urine Leukocyte Trace (Negative); Urine Nitrite Negative (Negative); Urine Occult Blood Negative (Negative); Urine Specific Gravity 1.015 (<1.030); Urine Urobilinogen Negative (Neg - 1+)
[2024-06-23 03:44] LABS: Amphetamines Negative (Negative); Barbiturates Negative (Negative); Benzodiazepines Positive (Negative); Buprenorphine Negative (Negative); Cocaine Negative (Negative); Marijuana Negative (Negative); Methadone Negative (Negative); Methamphetamines Negative (Negative); Opiates Negative (Negative); Phencyclidine Negative (Negative); Tricyclic Antidepressants Negative (Negative)
[2024-06-23 05:26] LABS: Urine Amorphous Seen; Urine Bacteria Few (Negative); Urine Red Blood Cell 0-2 /HPF (0-2); Urine White Cell 0-2 /HPF (0-5)
[2024-06-23 07:42] LABS: Hemoglobin 12.3 g/dL (13.0-18.0); Mean Corp Hgb Conc. 33.2 g/dL (33.0-37.0); Mean Corpuscular Hgb 32.2 pg (27.0-31.0); Mean Corpuscular Volume 96.9 fL (80.0-94.0); Mean Platelet Volume 12.4 fL (7.4-10.4); Platelet Count 159 10^3/uL (130-400); Red Blood Cell Count 3.82 10^6/uL (4.70-6.10); Red Cell Dist. Width 16.7 % (11.5-14.5); White Blood Cell Count 15.9 10^3/uL (4.8-10.8)
[2024-06-23] MEDS: ZOLOFT 200 MG PO (07:57)
[2024-06-23] MEDS: ELIQUIS 5 MG PO ×2 (07:57→20:16)
[2024-06-23] MEDS: NORVASC 2.5 MG PO ×2 (07:57→20:16)
[2024-06-23] MEDS: PHOSLO 667 MG PO ×3 (07:57→17:27)
[2024-06-23] MEDS: PLAVIX 75 MG PO (07:57)
[2024-06-23] MEDS: TOPROL XL 25 MG PO (07:58)
[2024-06-23] MEDS: FLUSH (NSS) 1 FLUSH IV ×2 (07:58→09:41)
[2024-06-23 08:04] LABS: Glucose - Point of Care 84 mg/dl (70-99)
[2024-06-23] MEDS: NOVOLOG FLEXPEN-LOW RESISTANCE SC ×3 (08:05→17:24)
--- NOTE | 2024-06-23 08:28 | W.PN.HOSP.TC ---
Today's Communication/Plan
-
see bold
Assessment / Plan
Assessment / Plan
HPI: 68y M with PMH significant for ASCVD, DM-II and ESRD on HD who presents to ED complaining of generalized weakness, ambulatory dysfunction and frequent falls with confusion.
Generalized Weakness
Ambulatory Dysfunction - Acute on Chronic
Multiple Falls at Home
Acute TME
- This is an acute increase in a very chronic issue for Paramjit with new / worsened component of confusion.
- Patient with long history of gait abnormality, LE weakness, etc.
- PT/OT rec SNF
- Check orthostatics, B12. TSH normal
Hyperbilirubinemia
- Apparent lab error.
- Initial TBili was 19 without evidence of jaundice, etc.
- Labs repeated and Bili = 0.6, 0.8
- US abdomen done in the ED and was unremarkable.
Leukocytosis
- Patient is afebrile but is complaining of cough
- Chest x-ray is negative
- Supportive care, Mucinex
Paroxysmal Atrial Fib / Flutter
- Stable / in NSR at present.
- Continue Eliquis, Toprol XL
- Avoid tizanidine which is still on active med list.
ASCVD
- Stable. Significant past history of CAD, PAD, carotid disease, etc with multiple interventions, bypass surgeries, etc.
- Continue current CV med regimen including Eliquis and Plavix.
ESRD on HD
Hyperkalemia
-Continue dialysis as per nephrology
Benign Hypertension
- Stable. Continue outpatient meds with holding parameters.
DM-II
- Stable. Follow glucose and cover with SSI as needed.
Chronic Back Pain
Chronic Opioid Dependence
- Continue oxycodone - but change to PRN.
- Remain off of tizanidine / 'muscle relaxants'.
- Add MiraLAX daily
Anxiety / Depression / ADHD
- Stable. Continue sertraline.
- Hold methylphenidate.
DVT Prophylaxis: On Eliquis.
Code Status: Full
Total time spent to see the patient on the floor, examine the patient, review data and lab results, discuss treatment plan with patient, nursing staff around 50 minutes.
Physical Exam
General: No acute distress
HEENT: Normocephalic, Atraumatic, EOMI, MMM
Respiratory: Clear to Auscultation bilaterally
Cardiac: Normal S1/S2, Regular Rate and Rhythm
GI: Soft, Nontender, Nondistended, Normal Bowel Sounds
Extremities: No Clubbing, Cyanosis, or Edema
Neuro: Nonfocal/Grossly Intact
Psych: Calm, Cooperative
Derm: No Visible lesions
Anticipated Discharge: 24 - 48 hours
Subjective/Interval History
-
Date of Service: June 23, 2024
Patient complains of nausea, coughing bringing up mucus. No fever. He continues to be weak, and has shortness of breath. No fever.
Objective Data
-
Labs:
Laboratory Results
06/22/24 06/23/24
21:55 07:20
WBC 15.9 H
Hgb 12.3 L
Hct 37.0 L
Plt Count 159
Sodium Pending
Potassium Pending
Chloride Pending
Carbon Dioxide Pending
BUN Pending
Creatinine Pending
Glucose Pending
Calcium Pending
Total Bilirubin 0.6 D Pending
AST 51 Pending
ALT 69 H Pending
Alkaline Phosphatase 85 Pending
Vital Signs:
Vital Signs
Temp Pulse Resp BP Pulse Ox
99.5 F 85 20 169/79 95
06/23/24 07:21 06/23/24 07:58 06/23/24 07:21 06/23/24 07:58 06/23/24 07:52
I&O
06/22/24 06/23/24 06/24/24
06:59 06:59 06:59
Intake Total 200 / 200
Output Total 325 / 325
Balance -125 / -125
[2024-06-23 08:33] LABS: Fentanyl, Urine Negative (Negative)
--- NOTE | 2024-06-23 08:33 | VNURNOTE ---
Chart reviewed. [facility]. Will continue to follow hospital course.
[2024-06-23 08:36] LABS: ALT (SGPT) 63 U/L (0-50); AST (SGOT) 48 U/L (17-59); Albumin 4.6 g/dl (3.5-5.0); Alkaline Phosphatase 95 U/L (38-126); Blood Urea Nitrogen 30 mg/dl (9-20); Calcium 9.9 mg/dl (8.4-10.2); Carbon Dioxide 29 mmol/L (22-30); Chloride 99 mmol/L (98-107); Direct Bilirubin 0.4 mg/dl (0.0-0.4); Estimated Creatinine Clearance 15 ml/min; Glucose 80 mg/dl (70-99); Phosphorus 3.6 mg/dl (2.5-4.5); Potassium 5.4 mmol/L (3.5-5.1); Sodium 138 mmol/L (135-145); Total Bilirubin 0.8 mg/dl (0.2-1.3); Total Protein 7.2 g/dl (6.3-8.2); eGFR 13.57
[2024-06-23 08:45] LABS: TSH Reflex To Free T4 2.16 uIU/ml (0.47-4.68)
[2024-06-23] MEDS: ZOFRAN 4 MG IV (09:41)
--- NOTE | 2024-06-23 11:06 | W.CON.NEPH ---
Consultation
-
Date/Time Consultation Requested: June 23, 2024 8:00 AM
Date/Time Consultation Performed: June 23, 2024 11:00 AM
Requesting Provider: Dr. Garcia
Performing Provider: Dr. Anderson
Reason for Consultation: End-stage renal disease
Medical History
-
Chief Complaint: ESRD
History of Present Illness:
The patient is a 68-year-old male with a past medical history of end-stage renal disease secondary to diabetes who is maintained on a Saturday dialysis schedule. He is maintained on insulin therapy for his diabetes with multiple
microvascular complications including diabetic neuropathy. He is maintained on calcium acetate for his hyperphosphatemia and amlodipine and metoprolol for his hypertension.He is chronically anticoagulated with Eliquis for his atrial fibrillation .
The patient presented to the hospital last evening with complaints of weakness and fall. He has had chronic issues with ongoing pain and ambulatory dysfunction. His symptoms have however been progressing. On presentation last evening he also had
increasing lower abdominal and lower back pain. He complained of extreme weakness in both of his lower extremities which precipitates recurrence of his falls which he did endure again on presentation to ER last evening. The patient also had some
confusion while driving home last evening from dialysis. Nephrology was consulted for his end-stage renal disease management.
Past Medical History
Stenting of vein graft to obtuse marginal October 24, 2023
Strep bacteremia now off antibiotics
diastolic CHF
ESRD MWF ([facility])
Metabolic acidosis
Hyperkalemia
Anemia, CKD +/- functional iron deficiency
Secondary hyperparathyroidism with hyperphosphatemia
Diabetes mellitus with multiple microvascular complications including profound nephrotic proteinuria
COPD
Obstructive sleep apnea/CPAP
Diabetic polyneuropathy
CAD with CABG �2009
LAD stent 2015
Left SFA and popliteal angioplasty 2017
Left femoral to [id number] popliteal bypass 2018
Right SFA and popliteal angioplasty/stenting 2015
Hypertension
Right bundle branch block
CML
Hyperlipidemia
TIA 2016
Frontal subdural hematoma 2018 (traumatic fall)
Long-standing smoker
Multiple laminectomy
Right total knee replacement
Left total knee replacement
Left upper arm AV graft September 13, 2023 (Dr. Luther)
NSTEMI August 2023 (troponin 0.51)
Hyperphosphatemia
Chronic ambulatory despite
Social History
Tobacco: Former Smoker
Alcohol: None
Personal:
Living: With Family
Family History
No chronic kidney disease
Allergies / Home Medications
Allergy/AdvReac Type Severity Reaction Status Date / Time
Iodinated Contrast Media Allergy Nausea / Verified 06/22/24 13:30
Vomiting
latex Allergy Itching- Verified 06/22/24 13:30
pt
declines
having
this
allergy
morphine Allergy Itching- Verified 06/22/24 13:30
pt
declines
having
this
allergy
�Medication �Instructions �Recorded �Confirmed �Type
melatonin 5 mg tablet 5 mg PO HS sleep 04/06/19 06/22/24 History
atorvastatin 80 mg tablet 80 mg PO HS High cholesterol 01/25/21 06/22/24 History
lorazepam 1 mg tablet 1 mg PO TID 09/11/22 06/22/24 History
lidocaine-prilocaine 2.5 %-2.5 % 1 applic topical MOWEFR apply to 10/28/23 06/22/24 History
topical cream access site 30 minutes before
dialysis
methylphenidate HCl 10 mg tablet 30 mg PO DAILY Neurological 10/28/23 06/22/24 History
Condition
ezetimibe 10 mg tablet (Zetia) 10 mg PO DAILY High Cholesterol 11/14/23 06/22/24 History
calcium acetate 667 mg tablet 667 mg PO MEALS Kidney Disease 02/19/24 06/22/24 History
clopidogrel 75 mg tablet (Plavix) 75 mg PO DAILY Blood Clot 02/19/24 06/22/24 History
Prevention/Tx
coQ10 (ubiquinol) 200 mg capsule 200 mg PO DAILY Supplement 02/19/24 06/22/24 History
semaglutide 0.25 mg or 0.5 mg (2 0.5 mg SC GRIMM Diabetes 02/19/24 06/22/24 History
mg/3 mL) subcutaneous pen injector
(Ozempic)
sertraline 100 mg tablet 200 mg PO DAILY Mental Health 02/19/24 06/22/24 History
vitamin B complex-vitamin C-folic 1 tab PO MOWEFR Supplement 02/19/24 06/22/24 History
acid 0.8 mg tablet (Nephro-Michelle)
amlodipine 2.5 mg tablet 2.5 mg PO BID #60 tabs 02/28/24 06/22/24 Rx
apixaban 5 mg tablet (Eliquis) 5 mg PO BID #60 tabs 02/28/24 06/22/24 Rx
metoprolol succinate 25 mg 25 mg PO DAILY #30 tabs 03/14/24 06/22/24 Rx
tablet,extended release 24 hr
Quercetin With Bromelain 1 cap PO DAILY Anti-Inflammatory 05/25/24 06/22/24 History
acetaminophen 325 mg tablet 650 mg PO DAILYPRN PRN mild pain 05/25/24 06/22/24 History
albuterol sulfate 90 mcg/actuation 2 puff inhalation R Q4HPRN PRN sob 05/25/24 06/22/24 History
aerosol inhaler
magnesium hydroxide 400 mg/5 mL 30 ml PO DAILY PRN constipation 05/25/24 06/22/24 History
oral suspension (Milk of Magnesia)
mometasone 0.1 % topical cream 1 applic topical BIDPRN PRN left 05/25/24 06/22/24 History
ear
oxycodone 10 mg tablet 10 mg PO TID Pain 05/25/24 06/22/24 History
tizanidine 4 mg tablet 4 mg PO TID Muscle Spasms 05/25/24 06/22/24 History
zinc sulfate 50 mg zinc (220 mg) 50 mg PO DAILY Supplement 06/22/24 06/22/24 History
tablet
Review of Systems
-
History Source: Patient
All other systems: Negative unless noted
Constitutional: Fatigue
EENT: No Symptoms
Respiratory: No Symptoms
Cardiac: No Symptoms
Abdomen/GI: No Symptoms
: No Symptoms
Musculoskeletal: Muscle Pain, Muscle Stiffness and Other (Lower extremity weakness)
Skin: No Symptoms
Neurological: Other (Lower extremity neuropathy, intermittent confusion)
Physical Exam
Vital Signs
Vital Signs
Temp Pulse Resp BP Pulse Ox
99.5 F 85 20 169/79 95
06/23/24 07:21 06/23/24 07:58 06/23/24 07:21 06/23/24 07:58 06/23/24 07:52
Lab Results
06/23/24 07:20
06/23/24 07:20
WBC 15.9 10^3/uL (4.8-10.8) H 06/23/24 07:20
RBC 3.82 10^6/uL (4.70-6.10) L 06/23/24 07:20
Hgb 12.3 g/dL (13.0-18.0) L 06/23/24 07:20
Hct 37.0 % (39.0-52.0) L 06/23/24 07:20
Plt Count 159 10^3/uL (130-400) 06/23/24 07:20
Sodium 138 mmol/L (135-145) 06/23/24 07:20
Potassium 5.4 mmol/L (3.5-5.1) H 06/23/24 07:20
Chloride 99 mmol/L (98-107) 06/23/24 07:20
Carbon Dioxide 29 mmol/L (22-30) 06/23/24 07:20
BUN 30 mg/dl (9-20) H 06/23/24 07:20
Creatinine 4.5 mg/dL (0.7-1.3) H* 06/23/24 07:20
eGFR 13.57 06/23/24 07:20
Glucose 80 mg/dl (70-99) 06/23/24 07:20
Calcium 9.9 mg/dl (8.4-10.2) D 06/23/24 07:20
Phosphorus 3.6 mg/dl (2.5-4.5) 06/23/24 07:20
Albumin 4.6 g/dl (3.5-5.0) 06/23/24 07:20
Physical Exam
General: AOx3, Nontoxic , NAD
HEENT: PERRL, EOMI, Anicteric, Conjunctivae Clear, Ear/Nose Intact, Hearing Normal, Oropharynx Clear/Moist, Dentition Intact, Facial Symmetry, Neck Supple, Neck: Trachea Midline, No JVD and No Thyromegaly, no Bruits
Respiratory: Clear to auscultation bilaterally with normal lung exersion
Cardiac: S1/S2 and Regular Rate/Rhythm
Breast: Deferred by me
Abdomen: Soft, Nontender, Nondistended, Normal Bowel Sounds and No Hepatosplenomegaly
Rectal: Deferred by Provider
Genito-urinary: No Costovertebral Tenderness
Extremities: No Clubbing, No Cyanosis and No Edema
Skin: No Rash or open lesions
Neuro: Nonfocal/Grossly Intact, neurosensory loss in lower extremities, lower extremity weakness 4 out of 5 muscle
Hematologic/Lymphatic: No Cervical Lymphadenopathy, No Submandibular Lymphadenopathy and No Supraclavicular Lymphadenopathy
Psych: Mood/afflect pleasant, Insight/judgement good and Appropriate
Vascular: plus 1 radial pulses
Vascular Access: AVF (Left upper extremity)
Data Reviewed
-
Radiology: Report Reviewed by me (Chest x-ray personally reviewed no evidence of infiltrative process or congestive heart failure)
Labs: Labs Reviewed by me (BMP CBC)
Old Records: Reviewed (Reviewed previous nephrology consultation from February 19, 2020 for ESRD)
Assessment/Plan
-
Impression:
Generalized weakness with acute on chronic ambulatory dysfunction and multiple falls
Leukocytosis
TME
End-stage renal disease on Saturday schedule [facility] Grover
PAF
DM
CABG hx
Anemia
PVD
LUE AVG/CVC
Hyperphosphatemia
HTN
Plan:
Hemodialysis will be planned for tomorrow, orders provided
Appropriate fluid and dietary restrictions
Maintain phosphate binders with meals 3 times daily for hyperphosphatemia
Maintain current antihypertensive medications in setting of hypertension
Generalized weakness and TME workup in progress, blood cultures pending
--- NOTE | 2024-06-23 11:14 | CM ---
Spoke with pt at bedside; Paramjit lives with his in a 1 story home, ambulates with a RW or cane, also has an elevated toilet seat and grab bars. Paramjit is (I) adls. He goes to [facility] for dialysis and has transportation.
[facility] has been providing care and will resume at discharge. Hx of SNF at [place] in the past.
Plan - home with VN and resumption of OP dialysis at [place].
PCP: Placido Anderson
Pharm: [facility] in [place]
[2024-06-23 11:58] LABS: Glucose - Point of Care 105 mg/dl (70-99)
--- NOTE | 2024-06-23 16:22 | PTCARENOTE ---
PtAAO x3, ROB well, OOB to chair/BR with minimal assistance/walker, george well,pt denies weakness/dizziness; states he is 'feeling better'. VSS. On room air- puls eox 97%, no c/o SOB. Abd obese, soft, george PO well. Pt stated he voided small amts x3
in BR so far this shift. Temp currently 99.3 PO. Resting in bed at present, no c/o. Will continue to monitor.
--- NOTE | 2024-06-23 16:27 | VNURNOTE ---
Home health PT Sandy relayed message that she recommended rehab for pt before returning home. PT notes reviewed and noted they also rec dispo of rehab. [facility] is available to resume if needed. SHAMIKA Buchanan notified of updates. Will continue to
follow hospital course and recs.
[2024-06-23 16:56] LABS: Glucose - Point of Care 118 mg/dl (70-99)
[2024-06-23] MEDS: MUCINEX 600 MG PO (17:24)
--- NOTE | 2024-06-23 18:27 | PTCARENOTE ---
Pt for transfer to [facility]/room 426; pt for HD in am. Pt taken to rm 426 via WC with all belongings; condition stable; no c/o. Report given to Rissa NATION.
[2024-06-23] MEDS: SENOKOT-S 2 TABLET PO (20:16)
[2024-06-23 21:29] LABS: Glucose - Point of Care 94 mg/dl (70-99)
[2024-06-24 06:00] VITALS: BMI 26.5
[2024-06-24 07:25] VITALS: BP 155/77; BP 160/77; BP 162/77; PULSE 77; PULSE 81
[2024-06-24 07:33] LABS: Glucose - Point of Care 85 mg/dl (70-99)
[2024-06-24] MEDS: NOVOLOG FLEXPEN-LOW RESISTANCE SC ×3 (07:51→18:15)
[2024-06-24] MEDS: PHOSLO 667 MG PO ×2 (07:52→11:46)
[2024-06-24] MEDS: PLAVIX 75 MG PO (07:52)
[2024-06-24] MEDS: MUCINEX 600 MG PO ×2 (07:52→22:06)
[2024-06-24] MEDS: TOPROL XL 25 MG PO (07:52)
[2024-06-24] MEDS: ELIQUIS 5 MG PO ×2 (07:52→22:06)
[2024-06-24] MEDS: SENOKOT-S PO (07:53)
[2024-06-24] MEDS: NORVASC 2.5 MG PO ×2 (07:58→22:05)
[2024-06-24] MEDS: ZOLOFT 200 MG PO (07:59)
[2024-06-24 09:00] LABS: Glycohemoglobin (HgbA1c) 4.6 % (4.0-5.6)
--- NOTE | 2024-06-24 09:06 | W.PN.HOSP.TC ---
Today's Communication/Plan
-
Discharge to short-term rehab when bed available
Assessment / Plan
Assessment / Plan
HPI: 68y M with PMH significant for ASCVD, DM-II and ESRD on HD who presents to ED complaining of generalized weakness, ambulatory dysfunction and frequent falls with confusion.
Generalized Weakness
Ambulatory Dysfunction - Acute on Chronic
Multiple Falls at Home
Acute TME
- This is an acute increase in a very chronic issue for Paramjit with new / worsened component of confusion.
- Patient with long history of gait abnormality, LE weakness, etc.
- Orthostatics negative, B12 normal
- PT/OT rec SNF
Hyperbilirubinemia
- Apparent lab error.
- Initial TBili was 19 without evidence of jaundice, etc.
- Labs repeated and Bili = 0.6, 0.8
- US abdomen done in the ED and was unremarkable.
Leukocytosis
- Patient is afebrile but is complaining of cough
- Chest x-ray is negative
- Supportive care, Mucinex
Paroxysmal Atrial Fib / Flutter
- Stable / in NSR at present.
- Continue Eliquis, Toprol XL
- Avoid tizanidine which is still on active med list.
ASCVD
- Stable. Significant past history of CAD, PAD, carotid disease, etc with multiple interventions, bypass surgeries, etc.
- Continue current CV med regimen including Eliquis and Plavix.
ESRD on HD
Hyperkalemia
-Continue dialysis as per nephrology
Benign Hypertension
- Blood pressure labile, continue metoprolol succinate 25 mg daily, amlodipine 2.5 mg twice daily
- Add hydralazine 25 mg 3 times daily as needed SBP greater than 60
DM-II
- Stable. Follow glucose and cover with SSI as needed.
Chronic Back Pain
Chronic Opioid Dependence
- Continue oxycodone - but change to PRN.
- Remain off of tizanidine / 'muscle relaxants'.
- Add MiraLAX daily
Anxiety / Depression / ADHD
- Stable. Continue sertraline.
- Hold methylphenidate.
DVT Prophylaxis: On Eliquis.
Code Status: Full
Total time spent to see the patient on the floor, examine the patient, review data and lab results, discuss treatment plan with patient, nursing staff around 40 minutes.
Physical Exam
General: No acute distress
HEENT: Normocephalic, Atraumatic, EOMI, MMM
Respiratory: Clear to Auscultation bilaterally
Cardiac: Normal S1/S2, Regular Rate and Rhythm
GI: Soft, Nontender, Nondistended, Normal Bowel Sounds
Extremities: No Clubbing, Cyanosis, or Edema
Neuro: Nonfocal/Grossly Intact
Psych: Calm, Cooperative
Derm: No Visible lesions
Anticipated Discharge: Within 24 hours
Subjective/Interval History
-
Date of Service: June 24, 2024
Patient continues to have cough, productive of sputum. Nausea improved. No fever, no vomiting.
Objective Data
-
Labs:
Laboratory Results
06/24/24
08:16
Sodium Pending
Potassium Pending
Chloride Pending
Carbon Dioxide Pending
Vital Signs:
Vital Signs
Temp Pulse Resp BP Pulse Ox
98.8 F 77 17 155/77 96
06/24/24 07:25 06/24/24 07:25 06/24/24 07:25 06/24/24 07:25 06/24/24 07:25
I&O
06/23/24 06/24/24 06/25/24
06:59 06:59 06:59
Intake Total 200 / 200 920 / 920
Output Total 325 / 325
Balance -125 / -125 920 / 920
[2024-06-24 09:12] LABS: Carbon Dioxide 24 mmol/L (22-30); Chloride 100 mmol/L (98-107); Sodium 135 mmol/L (135-145)
[2024-06-24 11:04] LABS: Vitamin B12 683 pg/ml (239-931)
[2024-06-24 11:22] LABS: Glucose - Point of Care 97 mg/dl (70-99)
[2024-06-24 11:28] VITALS: BP 127/84
--- NOTE | 2024-06-24 15:05 | CM ---
Patient seen at bedside. IA completed.
Dx: TME, hyperbilirubinemia
PMH: ESRD on HD, ASCVD, DMII
Patient lives in a 2 story home with & dog.
Lives on the 1st floor with bed/bath. Ramp into home.
PLOF: Independent, driving to dialysis.
DME at home: walker, raised toilet seat, shower chair
PT/OT recommend SNF
Discussed options for SNF - prefers [facility] & referral placed.
Call placed to [facility] to get update.
PCP: Placido Lora Jr.
Pharmacy: [facility]
PLAN: Discharge when stable. SNF
[2024-06-24 15:47] VITALS: BP 181/73
[2024-06-24 17:17] LABS: Haptoglobin 46 mg/dL (30-200)
--- NOTE | 2024-06-24 18:28 | W.PN.NEPH.HD ---
Assessment
-
Pt evaluated during HD
hybrid graft-difficult to get art needle, was successful finally
low k bath
for rehab tomorrow
Progress Note - Hemodialysis
-
Date of Service: June 24, 2024
Duration: 30 minutes and 3 hours
Potassium Bath: 2
Calcium Bath: 2.5
Opti-Dialyzer: 160
Ultrafiltration: Other (1.5-2kg)
Blood Flow: 400
Dialysate Flow: 600
Heparin: no
EPO: no
[2024-06-24] MEDS: PHOSLO PO (19:46)
[2024-06-24 22:05] LABS: Glucose - Point of Care 124 mg/dl (70-99)
[2024-06-24] MEDS: SENOKOT-S 2 TABLET PO (22:05)
[2024-06-24] MEDS: ROXICODONE 10 MG PO (22:09)
[2024-06-24] MEDS: ATIVAN 0.5 MG PO (22:09)
[2024-06-24 23:37] VITALS: BP 152/84
[2024-06-25 03:12] VITALS: BP 163/75
[2024-06-25 05:32] VITALS: BMI 25.7
[2024-06-25 08:00] VITALS: BP 164/71
[2024-06-25 08:06] LABS: Glucose - Point of Care 120 mg/dl (70-99)
[2024-06-25] MEDS: PLAVIX 75 MG PO (08:24)
[2024-06-25] MEDS: TOPROL XL 25 MG PO (08:24)
[2024-06-25] MEDS: MUCINEX 600 MG PO (08:24)
[2024-06-25] MEDS: PHOSLO 667 MG PO ×2 (08:25→13:05)
[2024-06-25] MEDS: ELIQUIS 5 MG PO (08:25)
[2024-06-25] MEDS: SENOKOT-S PO (08:34)
[2024-06-25] MEDS: NORVASC 2.5 MG PO (08:37)
[2024-06-25] MEDS: ZOLOFT 200 MG PO (08:37)
[2024-06-25 08:41] LABS: Glucose - Point of Care 83 mg/dl (70-99)
[2024-06-25] MEDS: NOVOLOG FLEXPEN-LOW RESISTANCE SC (08:53)
--- NOTE | 2024-06-25 08:53 | W.PN.HOSP.TC ---
Today's Communication/Plan
-
Discharge today
Assessment / Plan
Assessment / Plan
HPI: 68y M with PMH significant for ASCVD, DM-II and ESRD on HD who presents to ED complaining of generalized weakness, ambulatory dysfunction and frequent falls with confusion.
Generalized Weakness
Ambulatory Dysfunction - Acute on Chronic
Multiple Falls at Home
Acute TME
- This is an acute increase in a very chronic issue for Paramjit with new / worsened component of confusion.
- Patient with long history of gait abnormality, LE weakness, etc.
- Orthostatics negative, B12 normal
- PT/OT rec SNF, medically stable for discharge
Gerd
- Start PPI, tums prn
Hyperbilirubinemia
- Apparent lab error.
- Initial TBili was 19 without evidence of jaundice, etc.
- Labs repeated and Bili = 0.6, 0.8
- US abdomen done in the ED and was unremarkable.
Leukocytosis
- Patient is afebrile but is complaining of cough
- Chest x-ray is negative
- Supportive care, Mucinex
Paroxysmal Atrial Fib / Flutter
- Stable / in NSR at present.
- Continue Eliquis, Toprol XL
- Avoid tizanidine which is still on active med list.
ASCVD
- Stable. Significant past history of CAD, PAD, carotid disease, etc with multiple interventions, bypass surgeries, etc.
- Continue current CV med regimen including Eliquis and Plavix.
ESRD on HD
Hyperkalemia
-Continue dialysis as per nephrology
Benign Hypertension
- Blood pressure labile, continue metoprolol succinate 25 mg daily, amlodipine 2.5 mg twice daily
- Add hydralazine 25 mg 3 times daily as needed SBP greater than 60
DM-II
- Stable. Follow glucose and cover with SSI as needed.
Chronic Back Pain
Chronic Opioid Dependence
- Continue oxycodone - but change to PRN.
- Remain off of tizanidine / 'muscle relaxants'.
- Add MiraLAX daily
Anxiety / Depression / ADHD
- Stable. Continue sertraline.
- Resume methylphenidate upon discharge
DVT Prophylaxis: On Eliquis.
Code Status: Full
Updated on phone 06/25
Physical Exam
General: No acute distress
HEENT: Normocephalic, Atraumatic, EOMI, MMM
Respiratory: Clear to Auscultation bilaterally
Cardiac: Normal S1/S2, Regular Rate and Rhythm
GI: Soft, Nontender, Nondistended, Normal Bowel Sounds
Extremities: No Clubbing, Cyanosis, or Edema
Neuro: Nonfocal/Grossly Intact
Psych: Calm, Cooperative
Derm: No Visible lesions
Anticipated Discharge: Today
Subjective/Interval History
-
Date of Service: June 25, 2024
C/o reflux. No fever.
Objective Data
-
Vital Signs:
Vital Signs
Temp Pulse Resp BP Pulse Ox
98.6 F 71 18 163/75 95
06/25/24 03:12 06/25/24 03:12 06/25/24 03:12 06/25/24 03:12 06/25/24 03:12
I&O
06/24/24 06/25/24 06/26/24
06:59 06:59 06:59
Intake Total 920 / 920 360 / 360
Balance 920 / 920 360 / 360
[2024-06-25] MEDS: ZOFRAN 4 MG IV (09:14)
[2024-06-25] MEDS: BENADRYL 25 MG PO (09:54)
--- NOTE | 2024-06-25 11:04 | CM ---
Spoke with Carole at [facility] and states will accept patient today.
TT Dr. Modi and stated he is stable for discharge.
Available bed after 2pm. Patient needs to supply his Ozempic.
Patient states has 1 at home & CM explained SNF does not pay for this.
Spoke with and will pickle cutter Ozempic from home and fill prescription.
to transport to [facility] at 4:30pm today.
PLAN: Discharge to [facility] today. 4th floor
to transport to [facility]
Report #: [phone]
Fax #: [phone]
[2024-06-25 11:30] VITALS: BP 107/86
[2024-06-25 12:04] LABS: Glucose - Point of Care 173 mg/dl (70-99)
[2024-06-25] MEDS: PROTONIX 40 MG PO (13:05)
[2024-06-25] MEDS: PEPCID 20 MG PO (13:05)
[2024-06-25] MEDS: NOVOLOG FLEXPEN-LOW RESISTANCE 1 UNITS SC (13:08)
[2024-06-25 16:00] VITALS: BP 113/81
--- NOTE | 2024-06-25 16:26 | W.DCSUMMARY ---
Discharge Summary
Discharge Data
Date of Admission: 06/22/24
Date of Discharge: 06/25/24
-
Pending Results: No
Hospital Course
Discharge diagnosis:
Generalized weakness
Acute on chronic ambulatory dysfunction
Recurrent falls
Acute toxic metabolic encephalopathy
Cough
Gastroesophageal reflux disease
Lab error
Leukocytosis
Paroxysmal atrial fibrillation on Eliquis
Coronary artery disease
End-stage renal failure on dialysis
Hyperkalemia
Benign essential hypertension
Type 2 diabetes
Chronic back pain with chronic opioid dependency
Anxiety/depression
Consults: Nephrology
CXR:
No evidence of active cardiopulmonary disease.
Focus of sclerosis involving the right humeral head. Round subtle focus of sclerosis involving the right glenoid. These may represent bone islands, but please correlate with any history of primary carcinoma. If further imaging evaluation is desired,
consideration for bone scan.
Abd US:
Normal appearance of the gallbladder. No evidence of biliary ductal dilation.
Diffuse increased echogenicity of the liver, suggesting fatty infiltration and/or diffuse hepatocellular disease. No evidence of a focal hepatic lesion.
The pancreas is unable to be adequately visualized. The upper abdominal IVC and the upper abdominal aorta are unable to be adequately visualized.
Hospital course:
68-year-old male with a past medical history of atrial fibrillation on Eliquis, end-stage renal failure on dialysis, CAD, hypertension, chronic back pain with opioid dependency, diabetes, and chronic ambulatory dysfunction with recurrent falls who
was admitted for acute on chronic ambulatory dysfunction, weakness, and toxic metabolic encephalopathy.
His blood work in the ER initially showed a bilirubin of 19.8. This was repeated immediately, and was 0.6. This is a lab error, as repeat bilirubin in the morning was 0.8. Abdominal ultrasound was unremarkable as above.
Patient has chronic back pain, and is on oxycodone 10 mg 3 times daily at home. He also has anxiety, and is on Ativan 1 mg 3 times daily at home. Suspect polypharmacy is contributing to his toxic metabolic encephalopathy. His Ativan was reduced
to 0.5 mg 3 times daily as needed, and oxycodone changed to 10 mg 3 times daily as needed. He is still taking tizanidine at home, even though he has been told to remain off tizanidine and muscle relaxants. This has been removed from his medication
list.
Patient's mentation improved during his hospitalization. His has noted that he does have cognitive impairment at home. Recommend that he undergoes outpatient neuro psychiatric testing.
Patient was seen in conjunction with nephrology during his hospitalization, and continued receiving dialysis per his usual schedule.
Patient complained of reflux. He was started on pantoprazole 40 mg daily, and Tums as needed.
Patient also complained of cough. Chest x-ray was negative. He received supportive treatment with Mucinex.
Patient was seen in conjunction with PT, who recommend short-term rehab. He is medically stable for discharge to short-term rehab. He needs to follow-up with his primary care doctor 1 week after he leaves rehab, as well as neuropsychiatry for
neuropsychiatric testing.
Disposition: Short-term rehab
Discharge planning: Required 37 minutes
Discharge Plan
-
Patient Disposition: Skilled Nursing/SNF
Discharge Diagnosis/Procedures: Acute on chronic ambulatory dysfunction, recurrent falls, weakness, cognitive impairment, bronchitis, paroxysmal atrial fibrillation, end-stage renal failure on dialysis
Condition: Fair
Diet: Low Fat and Low Cholesterol
Additional Diets: Low potassium diet
Activity: As tolerated
Driving Restrictions: No driving
Activity Restrictions/Additional Instructions:
Please follow-up with Dr. Garcia for neuropsychiatric testing for cognitive impairment.
Please follow-up with your primary care doctor 1 week after you leave rehab.
Referrals:
Placido Lora Jr., DO [Family Provider] - in one week
Huey Garcia PSY [[facility] Professional [facility]] - in two to three weeks
Prescriptions:
New
polyethylene glycol 3350 [HealthyLax] 17 gram Powder In Packet
17 g PO DAILY Qty: 0 0RF
sennosides-docusate sodium [Stool Softener-Laxative] 8.6-50 mg Tablet
2 tab PO BID Qty: 0 0RF
Antacid Extra-Strength 300 mg (750 mg) Tablet,Chewable
2 tab PO Q4HPRN PRN (Reason: heartburn) Qty: 0 0RF
pantoprazole 40 mg Tablet,Delayed Release (Dr/Ec)
40 mg PO DAILY Qty: 0 0RF
guaifenesin 600 mg Tablet Extended Release 12hr
600 mg PO Q12 Qty: 0 0RF
methylphenidate HCl 10 mg tablet
30 mg PO DAILY Qty: 6 0RF
Continued
melatonin 5 MG tablet
5 mg PO HS
atorvastatin 80 MG tablet
80 mg PO HS
lidocaine-prilocaine 2.5-2.5 % Cream
1 applic TOPICAL MOWEFR
ezetimibe [Zetia] 10 mg Tablet
10 mg PO DAILY
sertraline 100 mg Tablet
200 mg PO DAILY
clopidogrel [Plavix] 75 mg Tablet
75 mg PO DAILY
Nephro-Michelle 0.8 mg Tablet
1 tab PO MOWEFR
coQ10 (ubiquinol) 200 mg Capsule
200 mg PO DAILY
calcium acetate 667 mg Tablet
667 mg PO MEALS
Ozempic 0.25 mg or 0.5 mg (2 mg/3 mL) Pen Injector
0.5 mg SC GRIMM
Eliquis 5 mg Tablet
5 mg PO BID Qty: 60 0RF
amlodipine 2.5 mg Tablet
2.5 mg PO BID Qty: 60 2RF
metoprolol succinate 25 mg Tablet Extended Release 24 Hr
25 mg PO DAILY Qty: 30 0RF
acetaminophen 325 mg Tablet
650 mg PO DAILYPRN PRN (Reason: mild pain)
magnesium hydroxide [Milk of Magnesia] 400 mg/5 mL Suspension
30 ml PO DAILY PRN (Reason: constipation)
albuterol sulfate 90 mcg/actuation Hfa Aerosol Inhaler
2 puff INHALATION R Q4HPRN PRN (Reason: sob)
mometasone 0.1 % Cream
1 applic TOPICAL BIDPRN PRN (Reason: left ear)
Quercetin With Bromelain capsule
1 cap PO DAILY
zinc sulfate 50 mg zinc (220 mg) Tablet
50 mg PO DAILY
Changed
lorazepam 1 MG tablet
0.5 mg PO TID PRN (Reason: anxiety) Qty: 3 0RF
oxycodone 10 mg Tablet
10 mg PO TID PRN (Reason: Pain) Qty: 5 0RF
Discontinued
methylphenidate HCl 10 mg Tablet
30 mg PO DAILY
tizanidine 4 mg Tablet
4 mg PO TID
Discharge Orders:
Discharge Patient (As Directed); Ordered 06/25/24
Ordered By: David Modi
Discharge Date and Time
Discharge Date/Time: 06/25/24 17:19
Print Language: [place]
--- NOTE | 2024-06-25 16:26 | W.PN.NEPH.PH ---
Today's Communication / Plan
-
- HD tomorrow
- for DC
Assessment/Plan
-
Impression:
Generalized weakness with acute on chronic ambulatory dysfunction and multiple falls
Leukocytosis
TME
End-stage renal disease on Saturday schedule [facility]
PAF
DM
CABG hx
Anemia
PVD
LUE AVG/CVC
Hyperphosphatemia
HTN
Plan:
Hemodialysis will be planned for tomorrow if patient is still here, likely for discharge today
Appropriate fluid and dietary restrictions
Maintain phosphate binders with meals 3 times daily for hyperphosphatemia
Maintain current antihypertensive medications in setting of hypertension
Generalized weakness and TME workup in progress, blood cultures pending
-
-
Date of Service: June 25, 2024
CC / HPI / ROS
-
Chief Complaint:
ESRD on HD
History of Present Illness:
fall
for [place] discharge
dialysis MWF
Review of Systems:
feeling well
Labs
-
Labs:
WBC 15.9 10^3/uL (4.8-10.8) H 06/23/24 07:20
RBC 3.82 10^6/uL (4.70-6.10) L 06/23/24 07:20
Hgb 12.3 g/dL (13.0-18.0) L 06/23/24 07:20
Hct 37.0 % (39.0-52.0) L 06/23/24 07:20
Plt Count 159 10^3/uL (130-400) 06/23/24 07:20
Sodium 135 mmol/L (135-145) 06/24/24 08:16
Potassium 6.0 mmol/L (3.5-5.1) H 07/31/24 08:16
Chloride 100 mmol/L (98-107) 06/24/24 08:16
Carbon Dioxide 24 mmol/L (22-30) 06/24/24 08:16
BUN 30 mg/dl (9-20) H 06/23/24 07:20
Creatinine 4.5 mg/dL (0.7-1.3) H* 06/23/24 07:20
eGFR 13.57 06/23/24 07:20
Glucose 80 mg/dl (70-99) 06/23/24 07:20
Calcium 9.9 mg/dl (8.4-10.2) D 06/23/24 07:20
Phosphorus 3.6 mg/dl (2.5-4.5) 06/23/24 07:20
Albumin 4.6 g/dl (3.5-5.0) 06/23/24 07:20
Physical Exam
-
Vital Signs:
Vital Signs
Temp Pulse Resp BP Pulse Ox
98.5 F 88 18 107/86 96
06/25/24 11:30 06/25/24 11:30 06/25/24 11:30 06/25/24 11:30 06/25/24 11:30
Cardiovascular:: Regular rate and rhythm
Respiratory:: Bilateral: CTA
Lung Excursion:: Normal
Abdomen:: Nontender and Soft
Bowel Sounds:: Normal
Extremity Edema:: None: Bilateral:
Luther Catheter: No
== END 2024-06-25 17:19 | DRG 91 ==
LOC: 4 WEST ACU 22:32
PROVIDERS: Nurse Practitioner; ADMITTING PHYSICIAN Hospitalist; ATTENDING PHYSICIAN Family Medicine; CONSULT PHYSICIAN Specialist; EMERGENCY PHYSICIAN Emergency Medicine; FAMILY PHYSICIAN Family Medicine
PROC: 5A1D70Z Performance of Urinary Filtration, Intermittent, Less than 6 Hours Per Day (ICD-10-PCS; 2024-06-24)
DX: G92.8 Other toxic encephalopathy (principal); N18.6 End stage renal disease; F11.20 Opioid dependence, uncomplicated; I13.2 Hypertensive heart and chronic kidney disease with heart failure and with stage 5 chronic kidney disease, or end stage renal disease; I50.32 Chronic diastolic (congestive) heart failure; E87.20 Acidosis, unspecified; N25.81 Secondary hyperparathyroidism of renal origin; E11.22 Type 2 diabetes mellitus with diabetic chronic kidney disease; E11.42 Type 2 diabetes mellitus with diabetic polyneuropathy; E11.51 Type 2 diabetes mellitus with diabetic peripheral angiopathy without gangrene; D63.1 Anemia in chronic kidney disease; G89.29 Other chronic pain; M54.50 Low back pain, unspecified; J44.89 Other specified chronic obstructive pulmonary disease; I27.20 Pulmonary hypertension, unspecified; I45.10 Unspecified right bundle-branch block; I48.0 Paroxysmal atrial fibrillation; G47.33 Obstructive sleep apnea (adult) (pediatric); N40.0 Benign prostatic hyperplasia without lower urinary tract symptoms; D72.829 Elevated white blood cell count, unspecified; T50.915A Adverse effect of multiple unspecified drugs, medicaments and biological substances, initial encounter; E87.5 Hyperkalemia; E83.51 Hypocalcemia; E83.39 Other disorders of phosphorus metabolism; G31.84 Mild cognitive impairment of uncertain or unknown etiology; I25.10 Atherosclerotic heart disease of native coronary artery without angina pectoris; K21.9 Gastro-esophageal reflux disease without esophagitis; E78.00 Pure hypercholesterolemia, unspecified; R29.6 Repeated falls; R80.8 Other proteinuria; R26.89 Other abnormalities of gait and mobility; F32.A Depression, unspecified; F41.9 Anxiety disorder, unspecified; F90.9 Attention-deficit hyperactivity disorder, unspecified type; R53.1 Weakness; I25.2 Old myocardial infarction; Z99.2 Dependence on renal dialysis; Z11.52 Encounter for screening for COVID-19; Z87.891 Personal history of nicotine dependence; Z79.85 Long-term (current) use of injectable non-insulin antidiabetic drugs; Z79.02 Long term (current) use of antithrombotics/antiplatelets; Z79.01 Long term (current) use of anticoagulants; Z91.040 Latex allergy status; Z79.899 Other long term (current) drug therapy; Z95.1 Presence of aortocoronary bypass graft; Z95.5 Presence of coronary angioplasty implant and graft; Z96.653 Presence of artificial knee joint, bilateral; Z95.820 Peripheral vascular angioplasty status with implants and grafts; Z86.73 Personal history of transient ischemic attack (TIA), and cerebral infarction without residual deficits
CPT/HCPCS: 70450; 71046; 76700; 80051; 80053; 80076; 80306; 80307; 81003; 81015; 82140; 82248; 82607; 82962; 83010; 83036; 83605; 83615; 83735; 84100; 84443; 85025; 85027; 85652; 87040; 87811; 93005; 97162; 97166; 99285; P9047

== ENCOUNTER → 2024-06-29 12:00 | Outpatient (REF) | payer OTHER, MEDICARE, SELFPAY ==
[2024-06-29 14:56] LABS: % Basophils 0.4 % (0-2); % Eosinophils 1.4 % (0-6); % Immature Granulocytes 0.5 % (0-0.5); % Lymphocytes 6.2 % (20.5-51.1); % Monocytes 19.3 % (1.7-9.3); % Neutrophils 72.2 % (42.2-75.2); Absolute Basophils 0.1 10^3/uL (0-0.2); Absolute Eosinophils 0.2 10^3/uL (0-0.7); Absolute Immature Granulocytes 0.1 10^3/uL (0-0.05); Absolute Lymphocytes 0.7 10^3/uL (1.2-3.4); Absolute Monocytes 2.2 10^3/uL (0.1-0.6); Absolute Neutrophils 8.4 10^3/uL (1.4-6.5); Hematocrit 38.8 % (39.0-52.0); Hemoglobin 12.2 g/dL (13.0-18.0); Mean Corp Hgb Conc. 31.4 g/dL (33.0-37.0); Mean Corpuscular Hgb 30.2 pg (27.0-31.0); Mean Platelet Volume 12.9 fL (7.4-10.4); Nucleated Red Blood Cells % 0 % (-); Platelet Count 197 10^3/uL (130-400); Red Blood Cell Count 4.04 10^6/uL (4.70-6.10); Red Cell Dist. Width 16.4 % (11.5-14.5); White Blood Cell Count 11.6 10^3/uL (4.8-10.8)
[2024-06-29 16:01] LABS: ALT (SGPT) 49 U/L (0-50); AST (SGOT) 43 U/L (17-59); Albumin 4.7 g/dl (3.5-5.0); Alkaline Phosphatase 103 U/L (38-126); Blood Urea Nitrogen 69 mg/dl (9-20); Calcium 9.3 mg/dl (8.4-10.2); Carbon Dioxide 24 mmol/L (22-30); Chloride 95 mmol/L (98-107); Glucose 105 mg/dl (70-99); Potassium 5.4 mmol/L (3.5-5.1); Sodium 135 mmol/L (135-145); Total Bilirubin 0.6 mg/dl (0.2-1.3); Total Protein 7.3 g/dl (6.3-8.2); eGFR 8.27
== END ==
LOC: OLABP 12:00
PROVIDERS: ATTENDING PHYSICIAN Family Medicine
DX: F90.0 Attention-deficit hyperactivity disorder, predominantly inattentive type (principal); F11.20 Opioid dependence, uncomplicated; E11.51 Type 2 diabetes mellitus with diabetic peripheral angiopathy without gangrene; I12.9 Hypertensive chronic kidney disease with stage 1 through stage 4 chronic kidney disease, or unspecified chronic kidney disease; I25.10 Atherosclerotic heart disease of native coronary artery without angina pectoris; I48.0 Paroxysmal atrial fibrillation; N18.30 Chronic kidney disease, stage 3 unspecified; D72.829 Elevated white blood cell count, unspecified; Z94.2 Lung transplant status; N18.6 End stage renal disease; M62.81 Muscle weakness (generalized); M62.59 Muscle wasting and atrophy, not elsewhere classified, multiple sites; G92.8 Other toxic encephalopathy
CPT/HCPCS: 80053; 85025

== ENCOUNTER → 2024-06-30 10:38 | Outpatient (REF) | payer MEDICARE, OTHER, SELFPAY ==
[2024-06-30 11:13] LABS: Hematocrit 37.1 % (39.0-52.0); Hemoglobin 12.3 g/dL (13.0-18.0); Mean Corp Hgb Conc. 33.2 g/dL (33.0-37.0); Mean Corpuscular Hgb 31.4 pg (27.0-31.0); Mean Corpuscular Volume 94.6 fL (80.0-94.0); Mean Platelet Volume 12.5 fL (7.4-10.4); Platelet Count 201 10^3/uL (130-400); Red Blood Cell Count 3.92 10^6/uL (4.70-6.10); Red Cell Dist. Width 16.8 % (11.5-14.5); White Blood Cell Count 10.5 10^3/uL (4.8-10.8)
[2024-06-30 14:11] LABS: ALT (SGPT) 100 U/L (0-50); AST (SGOT) 105 U/L (17-59); Albumin 4.4 g/dl (3.5-5.0); Alkaline Phosphatase 103 U/L (38-126); Blood Urea Nitrogen 45 mg/dl (9-20); Calcium 9.2 mg/dl (8.4-10.2); Carbon Dioxide 30 mmol/L (22-30); Chloride 93 mmol/L (98-107); Glucose 81 mg/dl (70-99); Potassium 5.4 mmol/L (3.5-5.1); Sodium 135 mmol/L (135-145); Total Bilirubin 0.6 mg/dl (0.2-1.3); eGFR 11.41
== END ==
LOC: OLABP 10:38
PROVIDERS: ATTENDING PHYSICIAN Family Medicine
DX: E78.5 Hyperlipidemia, unspecified (principal)
CPT/HCPCS: 36415; 80053; 85027

== ENCOUNTER 2024-07-01 13:16 | Inpatient (IN) | payer MEDICARE, OTHER, SELFPAY ==
[2024-07-01] VITALS (9 sets, daily range): BP systolic 115–174; BP diastolic 58–87; BMI 28.0; BMI 26.9
--- NOTE | 2024-07-01 09:44 | ED.GENMED ---
History of Present Illness
<Lana Vail HIGH ENERGY FORMING EQUIPMENT OPERATOR - Last Filed: 07/01/24 16:40>
General
Chief Complaint: Chest Pain
Source: patient
Exam Limitations: none
Time Seen by Provider: 07/01/24 09:43
Nursing documentation reviewed up to this point in time: agreed with
History of Present Illness
History of Present Illness:
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
chest pain so sent here for eval. Arrives with HR 130's appears to be sinus tach. BP 140/80 speaking in full sentences. Denies SOB, n/v/d/c.
Dr. Blanchard at bedside during initial evaluation.
Past History
<Lana Vail HIGH ENERGY FORMING EQUIPMENT OPERATOR - Last Filed: 07/01/24 16:40>
Past History
ED Past Medical History: Arrthythmia (PAF), CAD, Cancer (CML), COPD, CVA, HTN, Hypercholesterolemia, NIDDM, FL, Renal failure (on dialysis), Other (Peripheral artery disease, left femoropopliteal bypass), Other (subdural hematoma) and Other (R foot
ulcer; FINESSE; obesity)
ED Past Surgical History: Cardiac (left fempop bypass) and Other (L femoral endarterectomy, popliteal angioplasty, dialysis graft left upper arm)
Social History
Tobacco: Smoker
Alcohol: None
Drug: Marijuana
Personal:
Living: with family
Employment: Disabled
Family History
Family History: Diabetes and Other (reviewed and non-contributory)
Review of Systems
<Lana Vail HIGH ENERGY FORMING EQUIPMENT OPERATOR - Last Filed: 07/01/24 16:40>
Review of Systems
Allergies reviewed?: Yes
All Other Systems: ROS reviewed and negative except as documented in HPI and ROS
Constitutional: Denies fever
Respiratory: Denies cough or trouble breathing
Cardiac: Reports chest pain; Denies diaphoresis or syncope
ABD/GI: Denies abdominal pain, nausea, vomiting or diarrhea
: Reports other (dialysis)
Musculoskeletal: Denies edema
Skin: Reports other (dialysis graft L upper arm )
Neurological: Reports no symptoms; Denies dizzy or headache
Phy Exam
<Lana Vail HIGH ENERGY FORMING EQUIPMENT OPERATOR - Last Filed: 07/01/24 16:40>
Physical Exam
Physical Exam:
GENERAL: No acute distress. A&Ox3.
CONSTITUTIONAL: Afebrile.
EYES: PERRL, conjunctivae normal
ENMT: moist mucus membranes, Pharynx nl
RESPIRATORY: Regular respirations, nonlabored, lungs clear.
CARDIOVASCULAR: Regular rate and rhythm, no murmurs, no rubs.
GI: Soft, nontender, normal BS
MUSCULOSKELETAL: Moves with ease. Well perfused.
SKIN: Warm, dry, pink. Dialysis catheter intact, good thrill, distal n/v intact.
PSYCH: Normal mood and affect. Well kept, interactive and appropriate
NEUROLOGIC: Awake, alert and oriented. No focal neurological deficits
Scores
<Sanford Blanchard MD - Last Filed: 07/01/24 15:57>
Heart Score for Chest Pain Patients
STEMI patient?: Not applicable
Course
<Lana Vail, HIGH ENERGY FORMING EQUIPMENT OPERATOR - Last Filed: 07/01/24 16:40>
Orders/Labs/Results
Orders:
Orders
07/01/24 Breakfast
Sodium, 2 Gram
At Your Request: Non-Participating
Fluid Restriction: 1440 mL/day (48 oz)
Low Sodium: 1800 jamarcus/ 15 CHO Diabetic
Potassium, 2 Gram
Cholesterol Lowering
07/01/24 09:38
ECG [Electrocardiogram (*1)] Urgent
Reason for Study: Chest Pain
EKG- Treatment ONCE
07/01/24 09:47
Cardiac Monitoring- Treatment ONCE
07/01/24 09:57
0.9% Sodium Chloride 250 ml [Nss] 250 ml IV BOLUS
07/01/24 10:01
Hydrocortisone Sod Succinate [Solu-Cortef] 200 mg IV NOW STA
07/01/24 10:02
Diphenhydramine [Benadryl] 50 mg IV NOW STA
07/01/24 10:15
Complete Blood Count/With Diff Urgent
Comprehensive Metabolic Panel Urgent
Troponin I Urgent
07/01/24 11:01
Diltiazem HCl [Cardizem] 10 mg IV NOW STA
07/01/24 11:45
Electrocardiogram (*1) Stat
Comment: ALREADY DONE ED
07/01/24 12:51
COVID-19 Antigen Urgent
Source: Nasal Swab
07/01/24 12:57
Admit/Transfer Patient As Directed
Co-Sign Provider:
Level of Care: Inpatient admission
Assign to:: Telemetry
Physician / Group: Malik
Diagnosis: Chest Pain, Elevated Troponin
Reason for Telemetry: Arrhythmia
Date to Stop Telemetry: 07/04/24
Time to Stop Telemetry: 11:00
Reason for Hospitalization: serial troponin, Cardiology consult, Nephrology consult
Expected length of stay greater than two midnights?: Yes
ELOS- Estimated Length of Stay in days: 3
I certify the patient meets the requirements for IP care: Yes
07/01/24 12:58
PRN Pain Medication Management As Directed
May give lesser potent ordered pain med per pt: Yes
preference::
Protocol:: Medication orders for pain may be administered in a
manner that supports deferring to patient preference
when the pt is:
- Requesting an ordered lesser potent pain medication.
Least to most potent pain medications are defined
as: acetaminophen < NSAID < tramadol < opioids
(morphine, oxycodone, hydromorphone).
- Requesting a lesser dose of the same medication IF
ORDERED.
- Requesting a less intrusive route of administration
if both routes are prescribed by the provider (PO <
IV).
07/01/24 13:02
Code Status As Directed
Resuscitation Status: Full Code
07/01/24 15:58
Acetaminophen [Tylenol] 650 mg PO Q4HPRN PRN
Dextrose 50%-Water [Dextrose 50% Syringe] 12.5 grams IV [id number] PRN
Glucagon [GlucaGen] 1 mg IM PRN PRN
Oxycodone [Roxicodone] 10 mg PO BIDPRN PRN
Polyethylene Glycol Powder [Miralax] 17 grams PO DAILYPRN PRN
07/01/24 15:58
CARDIOLOGY CONSULT Routine
Consulting Provider: Harman Peña
Was physician already notified: Yes
NEPHROLOGY CONSULT Routine
Consulting Provider: Fabián nAderson V.
Was physician already notified: Yes
Activity As Directed
Activity Level: Out of Bed-Early Mobility
Bedside Glucose Monitoring As Directed
Frequency: AC&HS
Additional Instructions:: Change to q6h if pt on TPN, tube feeding or not eating
I&O [Intake/ Output] As Directed
Frequency: q12h
Vital Signs As Directed
Frequency: Per unit guidelines
Weight As Directed
Frequency: Daily
Ot Eval And Treat Routine
Pt Eval And Treat Routine
Activity Level: Out of Bed-Early Mobility
07/01/24 16:00
Troponin I Q6H
07/01/24 16:30
Insulin Aspart Corrective Low [Novolog Flexpen-Low Resistance] See Protocol SC AC
07/01/24 17:30
Calcium Acetate [Phoslo] 667 mg PO MEALS
07/01/24 20:00
Amlodipine [Norvasc] 2.5 mg PO BID
Apixaban [Eliquis] 5 mg PO BID
Docusate W/Senna [Senokot-S] 1 tablet PO BID
Guaifenesin [Mucinex] 600 mg PO Q12
07/01/24 22:00
Troponin I Q6H
Atorvastatin [Lipitor] 80 mg PO HS
Ezetimibe [Zetia] 10 mg PO HS
Lorazepam [Ativan] 2 mg PO HS
Melatonin 5 mg PO HS
07/02/24 06:00
Basic Metabolic Panel IN AM
Complete Blood Count/No Diff IN AM
Glycohemoglobin (HgbA1c) IN AM
07/02/24 08:00
Clopidogrel Bisulfate [Plavix] 75 mg PO DAILY
Lorazepam [Ativan] 1 mg PO DAILY
Metoprolol Xl [Toprol Xl] 25 mg PO DAILY
Pantoprazole [Protonix] 40 mg PO DAILY
Sertraline HCl [Zoloft] 200 mg PO DAILY
07/03/24 08:00
Renal Cap [Nephrocap] 1 capsule PO MoWeFr@0800
07/04/24 11:00
DC Protocol for Telemetry ONCE
Abnormal Lab Results
07/01/24 07/01/24 07/01/24
09:57 10:15 12:51
RBC 4.25 L 10^6/uL
(4.70-6.10)
MCH 31.1 H pg
(27.0-31.0)
RDW 16.4 H %
(11.5-14.5)
MPV 12.1 H fL
(7.4-10.4)
Absolute Monos (auto) 1.0 H 10^3/uL
(0.1-0.6)
Monocytes % 17.5 H %
(1.7-9.3)
Potassium 5.3 H mmol/L
(3.5-5.1)
Chloride 97 L mmol/L
(98-107)
BUN 42 H mg/dl
(9-20)
Creatinine 4.6 H* mg/dL
(0.7-1.3)
Glucose 104 H mg/dl
(70-99)
AST 127 H U/L
(17-59)
ALT 137 H U/L
(0-50)
Troponin I 0.037 H* ng/ml
SARS-CoV-2 Antigen Positive A
(Negative)
POC Glucose 106 H mg/dl
(70-99)
07/01/24 10:15
07/01/24 10:15
Vital Signs
Initial and Last Documented VS:
Initial Vital Signs
Temp Pulse Resp BP Pulse Ox
98.6 F 130 20 140/80 99
07/01/24 09:51 07/01/24 09:51 07/01/24 09:51 07/01/24 09:51 07/01/24 09:51
Last Documented Vital Signs
Temp Pulse Resp BP Pulse Ox
97.9 F 71 12 161/74 97
07/01/24 15:00 07/01/24 15:30 07/01/24 15:30 07/01/24 15:00 07/01/24 15:00
<Sanford Blanchard MD - Last Filed: 07/01/24 15:57>
Orders/Labs/Results
Orders:
Orders
07/01/24 Breakfast
Sodium, 2 Gram
At Your Request: Non-Participating
Fluid Restriction: 1440 mL/day (48 oz)
Low Sodium: 1800 jamarcus/ 15 CHO Diabetic
Potassium, 2 Gram
Cholesterol Lowering
07/01/24 09:38
ECG [Electrocardiogram (*1)] Urgent
Reason for Study: Chest Pain
EKG- Treatment ONCE
07/01/24 09:47
Cardiac Monitoring- Treatment ONCE
07/01/24 09:57
0.9% Sodium Chloride 250 ml [Nss] 250 ml IV BOLUS
07/01/24 10:01
Hydrocortisone Sod Succinate [Solu-Cortef] 200 mg IV NOW STA
07/01/24 10:02
Diphenhydramine [Benadryl] 50 mg IV NOW STA
07/01/24 10:15
Complete Blood Count/With Diff Urgent
Comprehensive Metabolic Panel Urgent
Troponin I Urgent
07/01/24 11:01
Diltiazem HCl [Cardizem] 10 mg IV NOW STA
07/01/24 11:45
Electrocardiogram (*1) Stat
Comment: ALREADY DONE ED
07/01/24 12:51
COVID-19 Antigen Urgent
Source: Nasal Swab
07/01/24 12:57
Admit/Transfer Patient As Directed
Co-Sign Provider:
Level of Care: Inpatient admission
Assign to:: Telemetry
Physician / Group: Malik
Diagnosis: Chest Pain, Elevated Troponin
Reason for Telemetry: Arrhythmia
Date to Stop Telemetry: 07/04/24
Time to Stop Telemetry: 11:00
Reason for Hospitalization: serial troponin, Cardiology consult, Nephrology consult
Expected length of stay greater than two midnights?: Yes
ELOS- Estimated Length of Stay in days: 3
I certify the patient meets the requirements for IP care: Yes
07/01/24 12:58
PRN Pain Medication Management As Directed
May give lesser potent ordered pain med per pt: Yes
preference::
Protocol:: Medication orders for pain may be administered in a
manner that supports deferring to patient preference
when the pt is:
- Requesting an ordered lesser potent pain medication.
Least to most potent pain medications are defined
as: acetaminophen < NSAID < tramadol < opioids
(morphine, oxycodone, hydromorphone).
- Requesting a lesser dose of the same medication IF
ORDERED.
- Requesting a less intrusive route of administration
if both routes are prescribed by the provider (PO <
IV).
07/01/24 13:02
Code Status As Directed
Resuscitation Status: Full Code
07/01/24 15:58
Acetaminophen [Tylenol] 650 mg PO Q4HPRN PRN
Dextrose 50%-Water [Dextrose 50% Syringe] 12.5 grams IV [id number] PRN
Glucagon [GlucaGen] 1 mg IM PRN PRN
Oxycodone [Roxicodone] 10 mg PO BIDPRN PRN
Polyethylene Glycol Powder [Miralax] 17 grams PO DAILYPRN PRN
07/01/24 15:58
CARDIOLOGY CONSULT Routine
Consulting Provider: Harman Peña
Was physician already notified: Yes
NEPHROLOGY CONSULT Routine
Consulting Provider: Fabián Anderson V.
Was physician already notified: Yes
Activity As Directed
Activity Level: Out of Bed-Early Mobility
Bedside Glucose Monitoring As Directed
Frequency: AC&HS
Additional Instructions:: Change to q6h if pt on TPN, tube feeding or not eating
I&O [Intake/ Output] As Directed
Frequency: q12h
Vital Signs As Directed
Frequency: Per unit guidelines
Weight As Directed
Frequency: Daily
Ot Eval And Treat Routine
Pt Eval And Treat Routine
Activity Level: Out of Bed-Early Mobility
07/01/24 16:00
Troponin I Q6H
07/01/24 16:30
Insulin Aspart Corrective Low [Novolog Flexpen-Low Resistance] See Protocol SC AC
07/01/24 17:30
Calcium Acetate [Phoslo] 667 mg PO MEALS
07/01/24 20:00
Amlodipine [Norvasc] 2.5 mg PO BID
Apixaban [Eliquis] 5 mg PO BID
Docusate W/Senna [Senokot-S] 1 tablet PO BID
Guaifenesin [Mucinex] 600 mg PO Q12
07/01/24 22:00
Troponin I Q6H
Atorvastatin [Lipitor] 80 mg PO HS
Ezetimibe [Zetia] 10 mg PO HS
Lorazepam [Ativan] 2 mg PO HS
Melatonin 5 mg PO HS
07/02/24 06:00
Basic Metabolic Panel IN AM
Complete Blood Count/No Diff IN AM
Glycohemoglobin (HgbA1c) IN AM
07/02/24 08:00
Clopidogrel Bisulfate [Plavix] 75 mg PO DAILY
Lorazepam [Ativan] 1 mg PO DAILY
Metoprolol Xl [Toprol Xl] 25 mg PO DAILY
Pantoprazole [Protonix] 40 mg PO DAILY
Sertraline HCl [Zoloft] 200 mg PO DAILY
07/03/24 08:00
Renal Cap [Nephrocap] 1 capsule PO MoWeFr@0800
07/04/24 11:00
DC Protocol for Telemetry ONCE
Abnormal Lab Results
07/01/24 07/01/24 07/01/24
09:57 10:15 12:51
RBC 4.25 L 10^6/uL
(4.70-6.10)
MCH 31.1 H pg
(27.0-31.0)
RDW 16.4 H %
(11.5-14.5)
MPV 12.1 H fL
(7.4-10.4)
Absolute Monos (auto) 1.0 H 10^3/uL
(0.1-0.6)
Monocytes % 17.5 H %
(1.7-9.3)
Potassium 5.3 H mmol/L
(3.5-5.1)
Chloride 97 L mmol/L
(98-107)
BUN 42 H mg/dl
(9-20)
Creatinine 4.6 H* mg/dL
(0.7-1.3)
Glucose 104 H mg/dl
(70-99)
AST 127 H U/L
(17-59)
ALT 137 H U/L
(0-50)
Troponin I 0.037 H* ng/ml
SARS-CoV-2 Antigen Positive A
(Negative)
POC Glucose 106 H mg/dl
(70-99)
07/01/24 10:15
07/01/24 10:15
Vital Signs
Initial and Last Documented VS:
Initial Vital Signs
Temp Pulse Resp BP Pulse Ox
98.6 F 130 20 140/80 99
07/01/24 09:51 07/01/24 09:51 07/01/24 09:51 07/01/24 09:51 07/01/24 09:51
Last Documented Vital Signs
Temp Pulse Resp BP Pulse Ox
97.9 F 71 12 161/74 97
07/01/24 15:00 07/01/24 15:30 07/01/24 15:30 07/01/24 15:00 07/01/24 15:00
<Lana Vail NP - Last Filed: 07/01/24 16:40>
MDM/Problems Addressed
Differential Diagnosis Includes:
hyperkalemia, PAF, dehydration
MDM/Problems Addressed:
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
for eval. Arrives with HR 130's appears to be sinus tach. BP 140/80 speaking in full sentences. Denies SOB, n/v/d/c.
Dr. Blanchard at bedside during initial evaluation.
EKG abnormal: looks like sinus tach w RBBB, new from previous (does have hx paroxysmal atrial tachycardia).
Pt in no acute distress. Afebrile. No hypoxemia
Initially thought about PE and ordered PE study but now Low suspicion for PE as is on Eliquis and study cancelled.
11:00 a.m.
CBC:No clinically significant abnormality
CMP: BUN/creatinine 42/4.6 postdialysis earlier today, no significant hyperkalemia
Troponin 0.037
11:30 a.m.
Chest pain most likely from his arrhythmia. Will attempt rate control with diltiazem and admit to the hospitalist.
Case discussed with Dr. Blanchard who agrees with assessment and plan
Hospitalist notified of admission
Pt remains stable
11:40
After Cardizem, monitor showing sinus rhythm, rate 78
EKG repeated
Chronic conditions affecting care: HTN, CAD, Arrhythmia and Kidney disease (on dialysis)
<Sanford Blanchard MD - Last Filed: 07/01/24 15:57>
*Critical Care Note
Total Time (30-74mins, 75-104mins- exclusive of procedures): Not Applicable
ED Attending Note
<Lana Vail NP - Last Filed: 07/01/24 16:40>
-
Portions of this chart may have been created with voice recognition software.� Occasional wrong word or��sound alike� substitutions may have occurred due to the inherent limitations of voice recognition software.
<Sanford Blanchard MD - Last Filed: 07/01/24 15:57>
ED Attending Note
ED Attending Note:
I evaluated patient independently. Patient is here with left-sided chest discomfort that occurred while he was three quarters of the way into his dialysis session today. States he is somewhat feeling better at this time. He is nontoxic-appearing.
Hemodynamically his blood pressure is stable however he is tachycardic to around 130. EKG shows this to be an atrial tachycardia with a new right bundle branch block. Through chart review, it appears that patient does have a history of paroxysmal
atrial tachycardia is an atypical a flutter. He is on Eliquis for this. Patient is not hypoxic and has clear lungs. Possibly from volume removal during dialysis. Will give small fluid bolus to see if heart rate response. Plan to consult
cardiology and admit to hospitalist for further management and workup.
Discharge Plan
Departure
Patient Disposition: Admit
Date of Disposition: 07/01/24
Time of Disposition: 11:35
Admit to: Telemetry
Presentation/result/management discussed w/ accepting MD/DO: Hospitalist
Condition: Fair
Discharge Problem:
Tachycardia, Chest pain
Interventions
Interventions:
*Risk Screen - Suicide Last Done: 07/01/24 10:31
*General Assessment Last Done: 07/01/24 10:55
*Neglect/Abuse Screening Last Done: 07/01/24 10:31
ED- Fall Risk Assessment Last Done: 07/01/24 10:55
*ED COVID-19 Vaccine History Last Done: 07/01/24 10:31
*Nursing Disposition Last Done: 07/01/24 16:00
ED- Cardiac Assessment Last Done: 07/01/24 10:31
Discharge Date and Time
Discharge Date/Time: 07/01/24 16:12
[2024-07-01 10:01] LABS: Glucose - Point of Care 106 mg/dl (70-99)
[2024-07-01] MEDS: NSS 250 IV (10:12)
[2024-07-01 10:24] LABS: % Basophils 0.4 % (0-2); % Eosinophils 1.2 % (0-6); % Immature Granulocytes 0.4 % (0-0.5); % Lymphocytes 37.9 % (20.5-51.1); % Monocytes 17.5 % (1.7-9.3); % Neutrophils 42.6 % (42.2-75.2); Absolute Eosinophils 0.1 10^3/uL (0-0.7); Absolute Lymphocytes 2.2 10^3/uL (1.2-3.4); Absolute Neutrophils 2.4 10^3/uL (1.4-6.5); Hematocrit 39.1 % (39.0-52.0); Hemoglobin 13.2 g/dL (13.0-18.0); Mean Corp Hgb Conc. 33.8 g/dL (33.0-37.0); Mean Corpuscular Hgb 31.1 pg (27.0-31.0); Mean Platelet Volume 12.1 fL (7.4-10.4); Nucleated Red Blood Cells % 0 % (-); Platelet Count 187 10^3/uL (130-400); Red Blood Cell Count 4.25 10^6/uL (4.70-6.10); Red Cell Dist. Width 16.4 % (11.5-14.5); White Blood Cell Count 5.7 10^3/uL (4.8-10.8)
[2024-07-01 10:48] LABS: ALT (SGPT) 137 U/L (0-50); AST (SGOT) 127 U/L (17-59); Albumin 4.7 g/dl (3.5-5.0); Alkaline Phosphatase 114 U/L (38-126); Blood Urea Nitrogen 42 mg/dl (9-20); Calcium 9.3 mg/dl (8.4-10.2); Carbon Dioxide 28 mmol/L (22-30); Chloride 97 mmol/L (98-107); Estimated Creatinine Clearance 15 ml/min; Glucose 104 mg/dl (70-99); Potassium 5.3 mmol/L (3.5-5.1); Sodium 136 mmol/L (135-145); Total Bilirubin 0.7 mg/dl (0.2-1.3); Total Protein 7.4 g/dl (6.3-8.2); Troponin I 0.037 ng/ml; eGFR 13.22
[2024-07-01] MEDS: CARDIZEM 10 MG IV (11:29)
--- NOTE | 2024-07-01 13:10 | HPS.HSE ---
Addendum entered and electronically signed by Tai Gan DO 07/01/24 15:41:
68-year-old male with HFpEF, AF (on Eliquis), vasculopathic status with PAD/CAD/CVA, ESRD on HD M/W/F, T2DM, hypertension, hyperlipidemia presented to the ED from dialysis today with a complaint of chest pain. Heart rate found to be in the 130s on
arrival, ECG showing sinus tachycardia with RBBB. Troponins elevated mildly so likely in the context of demand ischemia.
Upon speaking with the patient he states he did not receive his medications prior to dialysis, including his beta-keny for rate control. Quickly improved to NSR with heart rate in the 70s after IV diltiazem push. Resumed on home oral regimen.
Will continue to trend serial troponin with ECGs, continue home ASCVD regimen and beta-keny. Cardiology consulted, may require additional ischemic testing inpatient versus outpatient
Nephrology consulted for continuation of dialysis if he remains here through Saturday.
I have personally interviewed and examined the patient. I have discussed the case with the ED staff and medicine PA-C. I have read the note below and agree with all comments unless otherwise stated.
Original Note:
Family Physician
-
Family Physician: Placido Lora Jr.
Chief Complaint
-
Chest Pain
History of Present Illness
Patient is a 68-year-old male past medical history of ASCVD, A-fib, CHF, ESRD on HD who presents with chest pain. Patient was at dialysis today when he developed chest pain. He describes it as a chest tightness on the left side of his chest,
rating it 2/10. He denies associated shortness of breath, or palpitations. He admits to recent cough and states he tested positive for COVID-19 on 06/27. He denies fever. He denies lower extremity edema. He was given aspirin by EMS and brought to
the emergency department for evaluation. He was noted be significantly tachycardic initially, and received Cardizem 10 mg IV with improvement in heart rate down to 80.
Medical History
Past Medical History
Past Medical History: Reports Other
Additional Past Medical History:
ASCVD (CAD, PAD, Carotid Disease, CVA / TIA)
Paroxysmal Atrial Fibrillation
Chronic HFpEF
ESRD on HD
Essential Hypertension
Pulmonary Hypertension
Dyslipidemia
Diabetes Mellitus, Type II
Anxiety/Depression/ADHD
Anemia of Chronic Disease
BPH
Past Surgical History: Reports Other
Additional Past Surgical History:
Trigger Finger Surgeries
Lumbar Laminectomy / Fusion
Left Femoral Endarterectomy
Left SFA / Popliteal Angioplasty
Left Fem-Pop Bypass
Right SFA / Popliteal Angioplasty
Right ISELA
Left ISELA
Right Shoulder Surgery
CABG x 3
PTCA with Stent
Multiple Foot Surgeries
LUE AVG Placement
Social History
Tobacco: Former Smoker (1-1.5ppd for 30+ years. Quit 2 years ago.)
Alcohol: None
Personal:
Living: With Family
Family History
Family History: Not pertinent
Allergies / Home Medications
Allergies reflects when Allergies were last updated in [facility].
Home Medications with original date entered in [facility]
Allergy/Medication List:
Allergies
Allergy/AdvReac Type Severity Reaction Status Date / Time
Iodinated Contrast Media Allergy Nausea / Verified 07/01/24 09:57
Vomiting
latex Allergy Itching- Verified 07/01/24 09:57
pt
declines
having
this
allergy
morphine Allergy Itching- Verified 07/01/24 09:57
pt
declines
having
this
allergy
Home Medications
melatonin 5 mg tablet 5 mg PO HS sleep 04/06/19
atorvastatin 80 mg tablet 80 mg PO HS High cholesterol 01/25/21
lidocaine-prilocaine 2.5 %-2.5 % topical cream 1 applic topical MOWEFR fistula before dialysis 10/28/23
ezetimibe 10 mg tablet (Zetia) 10 mg PO HS High Cholesterol 11/14/23
calcium acetate 667 mg tablet 667 mg PO TIDPRN PRN CKD 02/19/24
clopidogrel 75 mg tablet (Plavix) 75 mg PO DAILY Blood Clot Prevention/Tx 02/19/24
coQ10 (ubiquinol) 200 mg capsule 200 mg PO DAILY Supplement 02/19/24
semaglutide 0.25 mg or 0.5 mg (2 mg/3 mL) subcutaneous pen injector (Ozempic) 0.25 mg SC ONCE Diabetes 02/19/24
sertraline 100 mg tablet 200 mg PO DAILY Mental Health 02/19/24
vitamin B complex-vitamin C-folic acid 0.8 mg tablet (Nephro-Michelle) 1 tab PO MOWEFR Supplement 02/19/24
amlodipine 2.5 mg tablet 2.5 mg PO BID #60 tabs 02/28/24
apixaban 5 mg tablet (Eliquis) 5 mg PO BID #60 tabs 02/28/24
metoprolol succinate 25 mg tablet,extended release 24 hr 25 mg PO DAILY #30 tabs 03/14/24
acetaminophen 325 mg tablet 650 mg PO Q4HPRN PRN mild pain/fever >100 05/25/24
albuterol sulfate 90 mcg/actuation aerosol inhaler 2 puff inhalation R Q4HPRN PRN sob 05/25/24
mometasone 0.1 % topical cream 1 applic topical BIDPRN PRN left ear 05/25/24
zinc sulfate 50 mg zinc (220 mg) tablet 50 mg PO DAILY Supplement 06/22/24
calcium carbonate (Antacid Extra-Strength) 2 tab PO Q4HPRN PRN heartburn #0 tabs 06/25/24
methylphenidate HCl 10 mg tablet 30 mg (3 x 10 mg) PO DAILY #6 tabs 06/25/24
pantoprazole 40 mg tablet,delayed release 40 mg PO DAILY #0 tabs 06/25/24
guaifenesin 600 mg tablet, extended release 12 hr 600 mg PO Q12H 07/01/24
lorazepam 1 mg tablet 1 mg PO DAILY 07/01/24
lorazepam 1 mg tablet 2 mg PO HS 07/01/24
naloxone 4 mg/actuation nasal spray (Narcan) 1 spray intranasal Q3MPRN PRN opioid overdose 07/01/24
oxycodone 10 mg tablet 10 mg PO BIDPRN PRN severe pain 07/01/24
polyethylene glycol 3350 17 gram oral powder packet (HealthyLax) 17 g PO DAILYPRN PRN constipation 07/01/24
quercetin 500 mg capsule 500 mg PO DAILY 07/01/24
sennosides 8.6 mg-docusate sodium 50 mg tablet (Stool Softener-Laxative) 1 tab PO BID 07/01/24
Review of Systems
-
A 12 point ROS was completed and negative except as noted: Yes
Constitutional: Denies Fever or Chills
Respiratory: Reports Cough; Denies Trouble Breathing
Cardiac: Reports Chest Pain; Denies Palpitations
Abdomen/GI: Denies Abdominal Pain, Nausea or Vomiting
Physical Exam
Vital Signs
Vital Signs
Temp Pulse Resp BP Pulse Ox
98.6 F 125 16 119/80 96
07/01/24 09:51 07/01/24 12:00 07/01/24 12:00 07/01/24 11:33 07/01/24 12:00
Physical Exam
General: Comfortable and Conversant
HEENT: Anicteric and Moist mucous membranes; No Oxygen
Respiratory: Clear and Non Labored Respirations
Cardiac: S1/S2 and Regular Rhythm; No Tachycardia or Murmur
GI: Soft, Non Tender and Non Distended
Rectal: Deferred by Provider
Musculoskeletal: No Clubbing, No Cyanosis and No Edema
Skin: Warm and Dry
Neuro: Awake, Alert, Oriented and Nonfocal/grossly intact
Psych: Calm
Laboratory Results
-
07/01/24 10:15
07/01/24 10:15
Laboratory Results
Total Bilirubin 0.7 mg/dl (0.2-1.3) 07/01/24 10:15
AST 127 U/L (17-59) H 07/01/24 10:15
ALT 137 U/L (0-50) H 07/01/24 10:15
Alkaline Phosphatase 114 U/L (38-126) 07/01/24 10:15
Troponin I 0.037 ng/ml H* 07/01/24 10:15
Data Reviewed
-
Lab Data: Labs Reviewed by me
Old Records: Reviewed
Impression/Plan
-
Chest Pain with Elevated Troponin, suspect most likely demand ischemia in setting of tachycardia however patient has extensive cardiovascular history
-Consult Cardiology
-Continue to trend troponin
ASCVD (CAD, PAD, Carotid Disease, CVA / TIA)
-Continue Plavix
Paroxysmal Atrial Fibrillation
-Continue Eliquis
-Continue Metoprolol
Chronic HFpEF
-Monitor Is&Os and Daily Weights
ESRD on HD
-Consult Nephrology
-Continue Phoslo and Nephro-Michelle
Essential Hypertension
-Continue amlodipine
Dyslipidemia
-Continue atorvastatin and Zetia
Diabetes Mellitus, Type II
-Monitor sugars and continue coverage insulin
Anxiety/Depression/ADHD
-Continue Zoloft and Lorazepam
-Hold methylphenidate
DVT proph: Eliquis
Code Status: Full Code
[2024-07-01 13:13] LABS: COVID-19 Antigen Positive (Negative)
--- NOTE | 2024-07-01 13:44 | CON.CAR ---
Addendum entered and electronically signed by Harman Peña DO 07/01/24 15:53:
I saw and evaluated the patient. I reviewed the resident�s note and agree with findings and plan as documented in the resident�s note.
Plan:
He describes his symptoms of left upper quadrant pain and unrelated to his previous chest pain prior to his PCI in September 2023.
COVID-positive and presented in atrial fibrillation with rapid ventricular response.
He spontaneously converted to sinus rhythm. He did receive IV Cardizem in the emergency room.
Continue anticoagulation with Eliquis.
Check echocardiogram
Likely medical therapy of non-OH troponin. His troponin was higher during his previous admission earlier this year with bacteremia which she was treated medically.
Could consider outpatient ischemic evaluation pending his clinical course.
Continues with Plavix for e stent placement ostium of the vein graft OM 2022.
Continue Toprol for rate control.
Discussed with nursing.
Original Note:
Consultation
Consultation Request
Date/Time Consultation Requested: 07/01/24
Date/Time Consultation Performed: 07/01/24
Requesting Provider: Marleny Da Silva PA-C
Performing Provider:
Reason for Consultation:
Medical History
-
Chief Complaint: Chest discomfort
History of Present Illness:
This is a 68 year old male patient with an extensive cardiac PMH of CAD, Atrial fib on Eliquis, HTN, ESRD on HD, CML, CVA 2018, PAD and NIDDM who presented to the ED with complaints of chest pressure and left leg pain. He was in a dialysis session
where towards the end he started to experience chest pressure that felt like a 'squeezing' mild type along with left leg pain. This lasted 2 hours before his symptoms resolved. He denies any SOB, palpitations, dizziness or sweating. He also tested
COVID positive 4 days ago.
Past Medical History
Past Medical History: Cancer, HTN, Hypercholesterolemia, NIDDM and Other (ASCVD (CAD, PAD, Carotid Disease, CVA / TIA), Paroxysmal Atrial Fibrillation Chronic HFpEF, CML, ESRD on HD, Pulmonary Hypertension, Anxiety/Depression/ADHD, Anemia of
Chronic Disease, BPH, peripheral neuropathy, pulmonary HTN, )
Past Surgical History: Cardiac (CABG 2009)
Social History
Tobacco: Former Smoker
Alcohol: None
Personal:
Living: With Family
Family History
Family History: Reviewed & Not Pertinent
Allergies / Home Medications
Allergy/AdvReac Type Severity Reaction Status Date / Time
Iodinated Contrast Media Allergy Nausea / Verified 07/01/24 09:57
Vomiting
latex Allergy Itching- Verified 07/01/24 09:57
pt
declines
having
this
allergy
morphine Allergy Itching- Verified 07/01/24 09:57
pt
declines
having
this
allergy
�Medication �Instructions �Recorded �Confirmed �Type
melatonin 5 mg tablet 5 mg PO HS sleep 04/06/19 07/01/24 History
atorvastatin 80 mg tablet 80 mg PO HS High cholesterol 01/25/21 07/01/24 History
lidocaine-prilocaine 2.5 %-2.5 % 1 applic topical MOWEFR fistula 10/28/23 07/01/24 History
topical cream before dialysis
ezetimibe 10 mg tablet (Zetia) 10 mg PO HS High Cholesterol 11/14/23 07/01/24 History
calcium acetate 667 mg tablet 667 mg PO TIDPRN PRN CKD 02/19/24 07/01/24 History
clopidogrel 75 mg tablet (Plavix) 75 mg PO DAILY Blood Clot 02/19/24 07/01/24 History
Prevention/Tx
coQ10 (ubiquinol) 200 mg capsule 200 mg PO DAILY Supplement 02/19/24 07/01/24 History
semaglutide 0.25 mg or 0.5 mg (2 0.25 mg SC ONCE Diabetes 02/19/24 07/01/24 History
mg/3 mL) subcutaneous pen injector
(Ozempic)
sertraline 100 mg tablet 200 mg PO DAILY Mental Health 02/19/24 07/01/24 History
vitamin B complex-vitamin C-folic 1 tab PO MOWEFR Supplement 02/19/24 07/01/24 History
acid 0.8 mg tablet (Nephro-Michelle)
amlodipine 2.5 mg tablet 2.5 mg PO BID #60 tabs 02/28/24 07/01/24 Rx
apixaban 5 mg tablet (Eliquis) 5 mg PO BID #60 tabs 02/28/24 07/01/24 Rx
metoprolol succinate 25 mg 25 mg PO DAILY #30 tabs 03/14/24 07/01/24 Rx
tablet,extended release 24 hr
acetaminophen 325 mg tablet 650 mg PO Q4HPRN PRN mild 05/25/24 07/01/24 History
pain/fever >100
albuterol sulfate 90 mcg/actuation 2 puff inhalation R Q4HPRN PRN sob 05/25/24 07/01/24 History
aerosol inhaler
mometasone 0.1 % topical cream 1 applic topical BIDPRN PRN left 05/25/24 07/01/24 History
ear
zinc sulfate 50 mg zinc (220 mg) 50 mg PO DAILY Supplement 06/22/24 07/01/24 History
tablet
calcium carbonate (Antacid 2 tab PO Q4HPRN PRN heartburn #0 06/25/24 07/01/24 Rx
Extra-Strength) tabs
methylphenidate HCl 10 mg tablet 30 mg (3 x 10 mg) PO DAILY #6 tabs 06/25/24 07/01/24 Rx
pantoprazole 40 mg tablet,delayed 40 mg PO DAILY #0 tabs 06/25/24 07/01/24 Rx
release
guaifenesin 600 mg tablet, 600 mg PO Q12H 07/01/24 07/01/24 History
extended release 12 hr
lorazepam 1 mg tablet 1 mg PO DAILY 07/01/24 07/01/24 History
lorazepam 1 mg tablet 2 mg PO HS 07/01/24 07/01/24 History
naloxone 4 mg/actuation nasal 1 spray intranasal Q3MPRN PRN 07/01/24 07/01/24 History
spray (Narcan) opioid overdose
oxycodone 10 mg tablet 10 mg PO BIDPRN PRN severe pain 07/01/24 07/01/24 History
polyethylene glycol 3350 17 gram 17 g PO DAILYPRN PRN constipation 07/01/24 07/01/24 History
oral powder packet (HealthyLax)
quercetin 500 mg capsule 500 mg PO DAILY 07/01/24 07/01/24 History
sennosides 8.6 mg-docusate sodium 1 tab PO BID 07/01/24 07/01/24 History
50 mg tablet (Stool
Softener-Laxative)
Review of Systems
-
Constitutional: No Symptoms
Respiratory: No Symptoms
Cardiac: No Symptoms
Physical Exam
Vital Signs
Temp Pulse Resp BP Pulse Ox
98.6 F 69 12 129/60 95
07/01/24 09:51 07/01/24 13:15 07/01/24 13:15 07/01/24 13:10 07/01/24 13:15
Lab Results
07/01/24 10:15
07/01/24 10:15
Troponin I 0.037 ng/ml H* 07/01/24 10:15
Physical Exam
General: No Apparent Distress
HEENT: Normocephalic
Respiratory: Clear
Cardiac: S1/S2 and Regular Rhythm; Negative Murmur or Rub
GI: Soft, Non Tender and Non Distended
Skin: Warm and Dry
Neuro: Awake, Alert and Oriented
Psych: Calm
Impression / Plan
-
Insulation Nozzleman:
Impression: This is a 68 year old male patient with an extensive cardiac PMH of CAD, Atrial fib on Eliquis, HTN, ESRD on HD, CML, CVA 2018, PAD and NIDDM who presented to the ED with complaints of chest pressure and left leg pain. Initial troponin
is 0.037.
Assessment:
Mildly elevated troponin
Atrial fibrillation/Atrial Tachycardia on Eliquis
Recent hospitalization 06/22-06/25/24 for generalized weakness, acute on chronic ambulatory dysfunction, recurrent falls, acute toxic metabolic encephalopathy
CAD
s/p LAD PCI 2005
s/p CABG with GARCIA to LAD, SVG to PDA and SVG to OM 07/05/10
NSTEMI, trop 0.51 during August 2023 admission
s/p 4.0 x 15 mm Xience stent at the ostium of the vein graft 3PAD
s/p left femoral endarterectomy with left femoral-above the knee SFA bypass 04/10/2019ESRD on HD MWF
Sinus bradycardia with Mobitz 1
DM 2
CML
HTN
Hyperlipidemia
Anemia of chronic disease
BPH
Former smoker
Lexiscan nuclear stress test 04/07/19: fixed inferior, anteroseptal and apical defects, no ischemic, EF 42%
Lexiscan nuclear stress test 10/22/2023: Partially reversible inferolateral, inferior, and apical defect consistent with infarction with ischemia.� Ejection fraction 43% with global hypokinesis.
Echo 07/16/2022: EF 60-65% by Kendall's, but closer to 50% visually, mild MR, no /AI, trace TR with mod PHTN with PAP 45-50 mmHg
Echo 09/21/2023: LVEF 65 to 70% with moderate concentric LVH.� No significant valvular disease.
Echo 02/21/2024: EF 55%, normal regional wall motion, mild conc LVH, normal RV size and function, mild MR, no aortic regurgitation
Plan:
- Initial EKG today showed sinus tachycardia, repeat EKG showed atrial fibrillation
- Single dose IV cardizem given in ER for HR 140s; now decreased to 72bpm
- Spontaneously converted to sinus rhythm
- Echo ordered
- Mildly elevated troponin ?in setting of atrial fibrillation; trend x3
- January 2024 cardioconversion with Amiodarone, discontinued in February 2024 due to abnormal LFTs
- Currently on Eliquis for afib
- If rate uncontrolled, can increase Toprol to 25mg BID
- On plavix for Xience stent placement on 09/2023 with plans to stop in Sep 2024
--- NOTE | 2024-07-01 15:35 | W.CON.NEPH ---
Consultation
-
Date/Time Consultation Requested: July 01, 2024 2:30 PM
Date/Time Consultation Performed: July 01, 2024 330 PM
Requesting Provider: Dr. Tucker
Performing Provider: Dr. Anderson
Reason for Consultation: End-stage renal disease
Medical History
-
Chief Complaint: ESRD
History of Present Illness:
The patient is a 68-year-old male with a past medical history of end-stage renal disease secondary to diabetes who is maintained on a Saturday dialysis schedule. He is maintained on insulin therapy for his diabetes with multiple
microvascular complications including diabetic neuropathy. He is maintained on calcium acetate for his hyperphosphatemia and amlodipine and metoprolol for his hypertension.He is chronically anticoagulated with Eliquis for his atrial fibrillation .
The patient presented to the hospital today for intractable chest pain which he experienced on dialysis. On presentation to the emergency room he was noted to be in atrial fibrillation with rapid ventricular response. He was also noted to have a
cough and was diagnosed with COVID 3 days prior. He denies any extensive body ache shortness of breath or fevers. We were consulted for his end-stage renal disease management.
Past Medical History
Stenting of vein graft to obtuse marginal October 24, 2023
Strep bacteremia now off antibiotics
diastolic CHF
ESRD MWF ([facility])
Metabolic acidosis
Hyperkalemia
Anemia, CKD +/- functional iron deficiency
Secondary hyperparathyroidism with hyperphosphatemia
Diabetes mellitus with multiple microvascular complications including profound nephrotic proteinuria
COPD
Obstructive sleep apnea/CPAP
Diabetic polyneuropathy
CAD with CABG �2009
LAD stent 2015
Left SFA and popliteal angioplasty 2017
Left femoral to [id number] popliteal bypass 2018
Right SFA and popliteal angioplasty/stenting 2015
Hypertension
Right bundle branch block
CML
Hyperlipidemia
TIA 2016
Frontal subdural hematoma 2019 (traumatic fall)
Long-standing smoker
Multiple laminectomy
Right total knee replacement
Left total knee replacement
Left upper arm AV graft September 13, 2023 (Dr. Luther)
NSTEMI August 2023 (troponin 0.51)
Hyperphosphatemia
Chronic ambulatory despite
Social History
Tobacco: Former Smoker
Alcohol: None
Personal:
Living: With Family
Family History
No chronic kidney disease
Allergies / Home Medications
Allergy/AdvReac Type Severity Reaction Status Date / Time
Iodinated Contrast Media Allergy Nausea / Verified 07/01/24 09:57
Vomiting
latex Allergy Itching- Verified 07/01/24 09:57
pt
declines
having
this
allergy
morphine Allergy Itching- Verified 07/01/24 09:57
pt
declines
having
this
allergy
�Medication �Instructions �Recorded �Confirmed �Type
melatonin 5 mg tablet 5 mg PO HS sleep 04/06/19 07/01/24 History
atorvastatin 80 mg tablet 80 mg PO HS High cholesterol 01/25/21 07/01/24 History
lidocaine-prilocaine 2.5 %-2.5 % 1 applic topical MOWEFR fistula 10/28/23 07/01/24 History
topical cream before dialysis
ezetimibe 10 mg tablet (Zetia) 10 mg PO HS High Cholesterol 11/14/23 07/01/24 History
calcium acetate 667 mg tablet 667 mg PO TIDPRN PRN CKD 02/19/24 07/01/24 History
clopidogrel 75 mg tablet (Plavix) 75 mg PO DAILY Blood Clot 02/19/24 07/01/24 History
Prevention/Tx
coQ10 (ubiquinol) 200 mg capsule 200 mg PO DAILY Supplement 02/19/24 07/01/24 History
semaglutide 0.25 mg or 0.5 mg (2 0.25 mg SC ONCE Diabetes 02/19/24 07/01/24 History
mg/3 mL) subcutaneous pen injector
(Ozempic)
sertraline 100 mg tablet 200 mg PO DAILY Mental Health 02/19/24 07/01/24 History
vitamin B complex-vitamin C-folic 1 tab PO MOWEFR Supplement 02/19/24 07/01/24 History
acid 0.8 mg tablet (Nephro-Michelle)
amlodipine 2.5 mg tablet 2.5 mg PO BID #60 tabs 02/28/24 07/01/24 Rx
apixaban 5 mg tablet (Eliquis) 5 mg PO BID #60 tabs 02/28/24 07/01/24 Rx
metoprolol succinate 25 mg 25 mg PO DAILY #30 tabs 03/14/24 07/01/24 Rx
tablet,extended release 24 hr
acetaminophen 325 mg tablet 650 mg PO Q4HPRN PRN mild 05/25/24 07/01/24 History
pain/fever >100
albuterol sulfate 90 mcg/actuation 2 puff inhalation R Q4HPRN PRN sob 05/25/24 07/01/24 History
aerosol inhaler
mometasone 0.1 % topical cream 1 applic topical BIDPRN PRN left 05/25/24 07/01/24 History
ear
zinc sulfate 50 mg zinc (220 mg) 50 mg PO DAILY Supplement 06/22/24 07/01/24 History
tablet
calcium carbonate (Antacid 2 tab PO Q4HPRN PRN heartburn #0 06/25/24 07/01/24 Rx
Extra-Strength) tabs
methylphenidate HCl 10 mg tablet 30 mg (3 x 10 mg) PO DAILY #6 tabs 06/25/24 07/01/24 Rx
pantoprazole 40 mg tablet,delayed 40 mg PO DAILY #0 tabs 06/25/24 07/01/24 Rx
release
guaifenesin 600 mg tablet, 600 mg PO Q12H 07/01/24 07/01/24 History
extended release 12 hr
lorazepam 1 mg tablet 1 mg PO DAILY 07/01/24 07/01/24 History
lorazepam 1 mg tablet 2 mg PO HS 07/01/24 07/01/24 History
naloxone 4 mg/actuation nasal 1 spray intranasal Q3MPRN PRN 07/01/24 07/01/24 History
spray (Narcan) opioid overdose
oxycodone 10 mg tablet 10 mg PO BIDPRN PRN severe pain 07/01/24 07/01/24 History
polyethylene glycol 3350 17 gram 17 g PO DAILYPRN PRN constipation 07/01/24 07/01/24 History
oral powder packet (HealthyLax)
quercetin 500 mg capsule 500 mg PO DAILY 07/01/24 07/01/24 History
sennosides 8.6 mg-docusate sodium 1 tab PO BID 07/01/24 07/01/24 History
50 mg tablet (Stool
Softener-Laxative)
Review of Systems
-
All other systems: Negative unless noted
Respiratory: Cough
Cardiac: Chest Pain
Musculoskeletal: Other (Chronic lower extremity leg weakness)
Neurological: Other (Neuropathy of lower extremity)
Physical Exam
Vital Signs
Vital Signs
Temp Pulse Resp BP Pulse Ox
98.6 F 71 12 140/58 95
07/01/24 09:51 07/01/24 15:30 07/01/24 15:30 07/01/24 15:00 07/01/24 14:15
Lab Results
07/01/24 10:15
07/01/24 10:15
WBC 5.7 10^3/uL (4.8-10.8) 07/01/24 10:15
RBC 4.25 10^6/uL (4.70-6.10) L 07/01/24 10:15
Hgb 13.2 g/dL (13.0-18.0) 07/01/24 10:15
Hct 39.1 % (39.0-52.0) 07/01/24 10:15
Plt Count 187 10^3/uL (130-400) 07/01/24 10:15
Sodium 136 mmol/L (135-145) 07/01/24 10:15
Potassium 5.3 mmol/L (3.5-5.1) H 07/01/24 10:15
Chloride 97 mmol/L (98-107) L 07/01/24 10:15
Carbon Dioxide 28 mmol/L (22-30) 07/01/24 10:15
BUN 42 mg/dl (9-20) H 07/01/24 10:15
Creatinine 4.6 mg/dL (0.7-1.3) H* 07/01/24 10:15
eGFR 13.22 07/01/24 10:15
Glucose 104 mg/dl (70-99) H 07/01/24 10:15
Calcium 9.3 mg/dl (8.4-10.2) 07/01/24 10:15
Albumin 4.7 g/dl (3.5-5.0) 07/01/24 10:15
Physical Exam
General: AOx3, Nontoxic , NAD
HEENT: PERRL, EOMI, Anicteric, Conjunctivae Clear, Ear/Nose Intact, Hearing Normal, Oropharynx Clear/Moist, Dentition Intact, Facial Symmetry, Neck Supple, Neck: Trachea Midline, No JVD and No Thyromegaly, no Bruits
Respiratory: coarse to auscultation bilaterally with normal lung exersion
Cardiac: Irregular irregular tachycardia
Breast: Deferred by me
Abdomen: Soft, Nontender, Nondistended, Normal Bowel Sounds and No Hepatosplenomegaly
Rectal: Deferred by Provider
Genito-urinary: No Costovertebral Tenderness
Extremities: No Clubbing, No Cyanosis and No Edema
Skin: No Rash or open lesions
Neuro: Nonfocal/Grossly Intact, neurosensory loss in lower extremities, lower extremity weakness 4 out of 5 muscle
Hematologic/Lymphatic: No Cervical Lymphadenopathy, No Submandibular Lymphadenopathy and No Supraclavicular Lymphadenopathy
Psych: Mood/afflect pleasant, Insight/judgement good and Appropriate
Vascular: plus 1 radial pulses
Vascular Access: AVF (Left upper extremity)
Data Reviewed
-
Medical Tests (Nuc Med, Echo etc): Other (EKG reviewed personally notable atrial fibrillation rhythm at 96 beats per minute)
Labs: Labs Reviewed by me (BMP CBC)
Old Records: Reviewed (Reviewed previous nephrology consult from June 23, 2024 for syncope and weakness)
Assessment/Plan
-
Impression:
ESRD Saturday at [facility]
Chest pain with new onset atrial fibrillation
COVID
PAF now in AFIB
DM
CABG hx
Anemia
PVD
LUE AVG/CVC
Hyperphosphatemia
HTN
Diabetic neuropathy
Secondary hyperparathyroidism
Coronary artery disease with previous stenting
Plan:
-No acute need for dialysis today, I will provide an abbreviated 2-hour treatment tomorrow as his dialysis was not completed due to chest pain today
-Orders provided
-Cardiology consulted for atrial fibrillation with rapid ventricular response and symptomatic chest pain (currently without chest pain)
-Maintain phosphate binders for hyperphosphatemia
-1500 cc/day fluid restriction and low-sodium potassium diet in the setting of ESRD
-Maintain current antihypertensives for hypertension
[2024-07-01] MEDS: PHOSLO 667 MG PO (17:06)
[2024-07-01] MEDS: ROXICODONE 10 MG PO (17:10)
[2024-07-01 18:24] LABS: Troponin I 0.225 ng/ml
--- NOTE | 2024-07-01 18:25 | PTCARENOTE ---
Pt arrived to floor from ED via stretcher. Stated he felt unable to ambulate to unit bed. Pt transferred to unit bed by nursing staff. Pt stating there is no chest pain, but chronic back pain is 8/10. PRN Roxicodone 10mg PO administered. Troponin
drawn and sent. During admission questions, pt stated that he had felt down, depressed, and hopeless over last 2 weeks and admits suicidal ideation. Denies a plan or any intention to act on the ideation. 1:1 observation maintained per algorithm.
[2024-07-01] MEDS: NORVASC 2.5 MG PO (20:39)
[2024-07-01] MEDS: SENOKOT-S PO ×2 (20:39→20:47)
[2024-07-01] MEDS: MUCINEX 600 MG PO (20:39)
[2024-07-01] MEDS: ELIQUIS 5 MG PO (20:39)
[2024-07-01 21:33] LABS: Glucose - Point of Care 91 mg/dl (70-99)
[2024-07-01] MEDS: ATIVAN 2 MG PO (22:29)
[2024-07-01] MEDS: ZETIA 10 MG PO (22:29)
[2024-07-01] MEDS: LIPITOR 80 MG PO (22:30)
[2024-07-01] MEDS: MELATONIN 5 MG PO (22:30)
[2024-07-02] VITALS (8 sets, daily range): BP systolic 120–171; BP diastolic 65–82; PULSE 79; O2SAT 99; BMI 27.0
[2024-07-02 00:07] LABS: Troponin I 0.333 ng/ml
[2024-07-02 08:10] LABS: Glucose - Point of Care 86 mg/dl (70-99)
[2024-07-02] MEDS: TOPROL XL 25 MG PO (08:59)
[2024-07-02] MEDS: PHOSLO 667 MG PO ×3 (08:59→17:26)
[2024-07-02] MEDS: ELIQUIS 5 MG PO ×2 (08:59→21:09)
[2024-07-02] MEDS: PROTONIX 40 MG PO (08:59)
[2024-07-02] MEDS: ZOLOFT 200 MG PO (08:59)
[2024-07-02] MEDS: PLAVIX 75 MG PO (08:59)
[2024-07-02] MEDS: ATIVAN 1 MG PO (08:59)
[2024-07-02] MEDS: NORVASC 2.5 MG PO ×2 (09:00→21:08)
[2024-07-02] MEDS: MUCINEX 600 MG PO ×2 (09:02→21:09)
[2024-07-02] MEDS: SENOKOT-S PO (09:07)
[2024-07-02 09:11] LABS: Hematocrit 34.5 % (39.0-52.0); Hemoglobin 11.5 g/dL (13.0-18.0); Mean Corp Hgb Conc. 33.3 g/dL (33.0-37.0); Mean Corpuscular Hgb 31.6 pg (27.0-31.0); Mean Corpuscular Volume 94.8 fL (80.0-94.0); Mean Platelet Volume 12.1 fL (7.4-10.4); Platelet Count 173 10^3/uL (130-400); Red Blood Cell Count 3.64 10^6/uL (4.70-6.10); Red Cell Dist. Width 16.2 % (11.5-14.5); White Blood Cell Count 4.8 10^3/uL (4.8-10.8)
[2024-07-02] MEDS: ROXICODONE 10 MG PO ×2 (09:14→21:16)
[2024-07-02 09:52] LABS: Blood Urea Nitrogen 60 mg/dl (9-20); Calcium 8.9 mg/dl (8.4-10.2); Carbon Dioxide 29 mmol/L (22-30); Chloride 98 mmol/L (98-107); Estimated Creatinine Clearance 11 ml/min; Glucose 94 mg/dl (70-99); Sodium 135 mmol/L (135-145); eGFR 9.42
--- NOTE | 2024-07-02 10:12 | W.PN.CARDCBS ---
Addendum entered and electronically signed by Phil De La Cruz MD 07/02/24 12:30:
No new complaints, difficulties with access on dialysis today, dialysis will be attempted tomorrow
PMH/PSH/SH/FH: Reviewed
Allergies: Latex, morphine, contrast
Outpatient Meds: Amlodipine, atorvastatin, clopidogrel 75 mg a day, Eliquis 5 mg twice daily, ezetimibe 10 mg a day, guaifenesin, lorazepam, melatonin, methylphenidate, metoprolol ER 25 mg a day, Ozempic, pantoprazole, care seton, sertraline, zinc
Current meds: amlodipine 2.5 mg twice daily, apixaban 5 mg twice daily, atorvastatin 80 mg at bedtime, clopidogrel 75 mg a day, ezetimibe 10 mg a day, Mucinex, Ativan, metoprolol ER 25 mg a day, pantoprazole 40 mg a day, sertraline 200 mg a day,
sodium chloride
ROS: Negative except as above:
175/76, pulse 69, respirate 18, weight is 78.2 kg, up 0.5 kg, no distress, head neck exam unremarkable, lungs are clear, regular rate and rhythm with soft systolic murmur, abdomen benign extremities without clubbing cyanosis or edema, fistula,
musculoskeletal intact
Hemoglobin 11.5 white count 4.8, platelets 173, BUN/creatinine sixteen 6.1, potassium is 5.0, SARS COVID 2 positive
Assessment:
Mildly elevated troponin
Typical atrial flutter with RVR on admission
Paroxysmal atrial fibrillation/tachycardia/flutter
Chronic Eliquis OAC
Recent hospitalization 06/22-06/25/24 for generalized weakness, acute on chronic ambulatory dysfunction, recurrent falls, acute toxic metabolic encephalopathy
CAD
s/p LAD PCI 2005
s/p CABG with GARCIA to LAD, SVG to PDA and SVG to OM 07/05/10
NSTEMI, trop 0.51 during August 2023 admission
s/p 4.0 x 15 mm Xience stent at the ostium of the vein graft 10/24/2023AD
s/p left femoral endarterectomy with left femoral-above the knee SFA bypass 04/10/2019ESRD on HD MWF
Sinus bradycardia with Mobitz 1
DM 2
CML
HTN
Hyperlipidemia
Anemia of chronic disease
BPH
Former smoker
COVID positive 06/28/24
Plan:
Currently not in atrial flutter. Suspect that atrial flutter with RVR was the causative causative mechanism of his chest discomfort and detectable troponin.
He has a history of second-degree heart block, also had elevated LFTs with amiodarone statin in the past. At this point, would be desirable to avoid amiodarone related to the above. It could be that COVID was a major trigger for his A-fib. For
now we will continue to anticoagulate and manage with metoprolol. If atrial flutter recurs, flutter ablation may be the best strategy
No new cardiac recommendations at present. Continue Eliquis. Would not. Pursue troponin further unless it rises significantly
Original Note:
Today's Communication / Plan
-
Recheck ECG now that he's in SR
Cont Toprol XL 25 mg daily for now, previously had elevated LFTs with amiodarone
Cont Eliquis
Echo and additional Troponin pending
Impression / Plan
-
Business Investor:
Impression: This is a 68 year old male patient with an extensive cardiac PMH of CAD, Atrial fib on Eliquis, HTN, ESRD on HD, CML, CVA 2018, PAD and NIDDM who presented to the ED with complaints of chest pressure and left leg pain. Initial troponin
is 0.037.
Assessment:
Mildly elevated troponin
Typical atrial flutter with RVR on admission
Paroxysmal atrial fibrillation/tachycardia/flutter
Chronic Eliquis OAC
Recent hospitalization 06/22-06/25/24 for generalized weakness, acute on chronic ambulatory dysfunction, recurrent falls, acute toxic metabolic encephalopathy
CAD
s/p LAD PCI 2005
s/p CABG with GARCIA to LAD, SVG to PDA and SVG to OM 07/05/10
NSTEMI, trop 0.51 during August 2023 admission
s/p 4.0 x 15 mm Xience stent at the ostium of the vein graft 10/24/2023
PAD
s/p left femoral endarterectomy with left femoral-above the knee SFA bypass 04/10/2019
ESRD on HD MWF
Sinus bradycardia with Mobitz 1
DM 2
CML
HTN
Hyperlipidemia
Anemia of chronic disease
BPH
Former smoker
COVID positive 06/28/24
Lexiscan nuclear stress test 04/07/19: fixed inferior, anteroseptal and apical defects, no ischemic, EF 42%
Lexiscan nuclear stress test 10/22/2023: Partially reversible inferolateral, inferior, and apical defect consistent with infarction with ischemia.� Ejection fraction 43% with global hypokinesis.
Echo 07/16/2022: EF 60-65% by Kendall's, but closer to 50% visually, mild MR, no /AI, trace TR with mod PHTN with PAP 45-50 mmHg
Echo 09/21/2023: LVEF 65 to 70% with moderate concentric LVH.� No significant valvular disease.
Echo 02/21/2024: EF 55%, normal regional wall motion, mild conc LVH, normal RV size and function, mild MR, no aortic regurgitation
Plan:
-Patient tested positive for COVID prior to admission and says that on the day of admission, 07/01/24, he was stressed from wearing double masks and that his HD access was not straightforward and caused him pain and then ultimately his dialysis
session was cut short when he started with chest pain prompting ER evaluation.
-No recurrence of chest pain since admission and Troponin up to 0.33 and trending.
-Echo pending
-ECG on admission showed rapid atrial flutter in 2:1. Recheck ECG now that he appears to be in SR. Patient with a h/o paroxysmal Afib and is chronically on Eliquis. Patient was given Cardizem 10 mg IV x1 and spontaneously converted to SR. No
recurrence of chest pain since islam of SR.
-Pending echo results and final Troponin, it is possible that his chest pain was symptomatic rapid atrial flutter.
-Amiodarone stopped 03/13/24 due to elevated LFTs. Also previously with Mobitz I. Outpatient dose of Toprol XL 25 mg daily has been continued and tele reviewed by me 07/02/24 without heart block.
-He has had recurrent issues with access of his left upper extremity AV fistula s/p AV fistula repair with stenting of the venous outflow track with vascular 02/27/2024; unfortunately had multiple issues/infiltrations and failures of graft.
Progress Note - Business Investor
Subjective
Date of Service: July 02, 2024
He has a sore throat and congestion
Objective
Labs:
07/02/24 08:00
07/02/24 08:00
Labs
Hgb 11.5 g/dL (13.0-18.0) L 07/02/24 08:00
Hct 34.5 % (39.0-52.0) L 07/02/24 08:00
Plt Count 173 10^3/uL (130-400) 07/02/24 08:00
Sodium 135 mmol/L (135-145) 07/02/24 08:00
Potassium 5.0 mmol/L (3.5-5.1) 07/02/24 08:00
BUN 60 mg/dl (9-20) H 07/02/24 08:00
Creatinine 6.1 mg/dL (0.7-1.3) H* 07/02/24 08:00
Glucose 94 mg/dl (70-99) 07/02/24 08:00
Troponins
07/01/24 07/01/24 07/01/24
10:15 17:43 22:00
Troponin I 0.037 H* 0.225 H* D Cancelled
07/01/24
23:29
Troponin I 0.333 H* D
Vital Signs and I&O:
Vital Signs
Temp Pulse Resp BP Pulse Ox
97.5 F 69 18 175/76 95
07/02/24 02:57 07/02/24 09:00 07/02/24 02:57 07/02/24 09:00 07/02/24 04:00
Vital Signs
Temp Pulse Resp BP Pulse Ox
97.5 F 69 18 175/76 95
07/02/24 02:57 07/02/24 09:00 07/02/24 02:57 07/02/24 09:00 07/02/24 04:00
Intake & Output
06/30/24 07/01/24 07/02/24 07/03/24
06:59 06:59 06:59 06:59
Intake Total 480 / 480
Balance 480 / 480
Physical Exam
Physical Exam
GEN: NAD. AAO x3
HEENT: EOMI
LUNGS: No audible wheeze, on RA
CV: SR on tele check
EXT: No edema B/L
NEURO: Gross non-focal
SKIN: Warm, dry, no rash
--- NOTE | 2024-07-02 10:50 | PTCARENOTE ---
patient reports he does feel depressed, but denies thoughts of wanting to hurt, harm or kill himself. patient remains on 1:1 observation. will continue to monitor.
--- NOTE | 2024-07-02 10:59 | PTCARENOTE ---
patient remains calm and cooperative with staff. no need for 1:[address] Bello, will continue to monitor.
--- NOTE | 2024-07-02 10:59 | CON.MD ---
Consultation - Medical
-
patient seen chart reviewed. spoke with several staff members this am. concern bc patient made some comments re suicidality. the patient does have history of depression and has been rx for years with zoloft 200 mg daily which he feels helps with
his mood.. he has a therapist also for years dr estela bender whom he feels is very supportive. he has seen him via video. he is adamantly not suicidal. said he would never takes steps to end his life and has never done so. he has never been
hospitalized for psych. he takes ativan one mg q am and two mg q hs which he says helps with adhd. this is an unusual rx for adhd but he says he is attentive to use as directed and it helps as well with sleep and some anxiety. the patient has a
myriad of medical illnesses which have been very trying for him but he remains hopeful. he is stressed acutely be several factors. he has a deadline to meet to be placed on the renal transplant list...eg he needs a nuclear stress test, a colonscopy
and a tetanus shot and his many hospital stays form medical reasons have interfered with getting them done. he has some appetite. energy level not great given medical illnesses. he can enjoy some aspects of life including his granddaugher. there is
nothing to suggest psychosis. another concern is that patient would like more intense rehab than is offered at [facility]. he was happy w care there the first go around but not currently. he wants to work on improvement especially w gait.
past psych see above
medical hx patient has many complicated medical illness including but not limited to renal failure with secondary hyperparathyroid and hyperpphosphatemia copd opiate dep for pain (lumbar stenosis) copd s/p cabg and multiple surgeries for pvd
iddm arthritis bph hx tia gerd anemia recurrent falls w subdural in the past htn hld lvf vit d def pulmonary htn aidee bph foot ulcer qtc nl on repeat but abnormal ecg
denied
substance abuse many years ago admits mj addiction. 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 his physical illnesses sidelined him from working
social x2 currently supportive . first m two kids. does not see them. grew up locally. supportive family. retired
mse alert ox3 cooperative pleasant. speech and thought process goal oriented no psychosis mood was neutral i did not find him to be very depressed. denies suicidality forward looking above aver intelligence insight judgment ok
dx unspecified depression
plan continue w current meds. i told him i would alert those caring for him of his three concerns. one: mention that he would like as much as possible for the requirements to get on renal transplant list to be accomplished while here at as
there is at time limitation two: ask cm to look into a rehab which would afford him more rx than snf (spoke joe ahir) three :alert dr bender that he is here (done) patient does not require one to one. i do not see him as a suicide risk
currently although one cannot predict the future with certainty. psych will sign off.
--- NOTE | 2024-07-02 11:00 | W.PN.NEPH.PH ---
Today's Communication / Plan
-
Will attempt dialysis tomorrow via fistula
Assessment/Plan
-
Impression:
ESRD Saturday at [facility]
Chest pain with new onset atrial fibrillation
COVID
PAF now in AFIB
DM
CABG hx
Anemia
PVD
LUE AVG/CVC
Hyperphosphatemia
HTN
Diabetic neuropathy
Secondary hyperparathyroidism
Coronary artery disease with previous stenting
Plan:
-Difficulty with accessing second needle today
-Will attempt again tomorrow as there is no acute need for dialysis today
-If access does not work tomorrow he will need temporary catheter placement and vascular follow-up for fistula evaluation
-Orders provided for HD tomorrow
-Cardiology consulted for atrial fibrillation with rapid ventricular response and symptomatic chest pain (currently without chest pain)
-Maintain phosphate binders for hyperphosphatemia
-1500 cc/day fluid restriction and low-sodium potassium diet in the setting of ESRD
-Maintain current antihypertensives for hypertension
-
-
Date of Service: July 02, 2024
CC / HPI / ROS
-
Chief Complaint:
ESRD
History of Present Illness:
ESRD Saturday schedule
Hemodynamically stay
Review of Systems:
No further chest pain
No shortness of breath
Labs
-
Labs:
WBC 4.8 10^3/uL (4.8-10.8) 07/02/24 08:00
RBC 3.64 10^6/uL (4.70-6.10) L 07/02/24 08:00
Hgb 11.5 g/dL (13.0-18.0) L 07/02/24 08:00
Hct 34.5 % (39.0-52.0) L 07/02/24 08:00
Plt Count 173 10^3/uL (130-400) 07/02/24 08:00
Sodium 135 mmol/L (135-145) 07/02/24 08:00
Potassium 5.0 mmol/L (3.5-5.1) 07/02/24 08:00
Chloride 98 mmol/L (98-107) 07/02/24 08:00
Carbon Dioxide 29 mmol/L (22-30) 07/02/24 08:00
BUN 60 mg/dl (9-20) H 07/02/24 08:00
Creatinine 6.1 mg/dL (0.7-1.3) H* 07/02/24 08:00
eGFR 9.42 07/02/24 08:00
Glucose 94 mg/dl (70-99) 07/02/24 08:00
Calcium 8.9 mg/dl (8.4-10.2) 07/02/24 08:00
Albumin Cancelled 07/02/24 07:00
Physical Exam
-
Vital Signs:
Vital Signs
Temp Pulse Resp BP Pulse Ox
97.5 F 69 18 175/76 95
07/02/24 02:57 07/02/24 09:00 07/02/24 02:57 07/02/24 09:00 07/02/24 04:00
Cardiovascular:: Regular rate and rhythm
Respiratory:: Bilateral: Coarse
Lung Excursion:: Normal
Abdomen:: Nontender and Soft
Bowel Sounds:: Normal
Extremity Edema:: None: Bilateral:
[2024-07-02 11:38] LABS: Glucose - Point of Care 127 mg/dl (70-99)
--- NOTE | 2024-07-02 11:59 | PTCARENOTE ---
patient remains calm and cooperative with staff. no need for 1:[address] Bello, will continue to monitor.
--- NOTE | 2024-07-02 12:00 | CM ---
Addendum entered by Kelly Em 07/02/24 15:32:
Accepted by the [facility] - requesting additional clinical information
Spoke with Grisel at [facility] - requested most recent HD flow sheets
Requesting hepatitis profile within 30 [address] - Dr Gan aware
Plan - [facility] when HD chair confirmed and pt medically ready
Original Note:
CM spoke with pt over phone. Pt + Covid
Pt reports he lives with his in a 3 story home. 1 step, ramp, 1step to enter - FF set-up in living area
Prior to admission pt was at [facility] - does not wish to return
Pt reports previously required some assist with adl's, was using devices to dress himself
Per sometimes confused
DME - rolling walker, dexicom, dressing stick, grabbers, grab bar, shower chair
SNF - past [facility] x2
HH - past [facility]
Has ride at discharge
PCP - Dr Sanchez
Pharm - [facility]
PT - recs SNF vs HH - pt prefers SNF
Requesting referral be sent to the [facility] - pts agrees
CM consult - suicide risk
Pt seen by psych - 1:1 d/c'ed
Discussed with pt - he reports he is 'ok, no suicidal thoughts' - declining assistance
CM will send referral in [facility] for SNF
Plan - transfer to SNF when bed available
--- NOTE | 2024-07-02 12:56 | W.PN.HOSP.TC ---
Today's Communication/Plan
-
Monitor on telemetry
Plan for HD tomorrow, reassess access
CM to discuss other SNF options for DC
Assessment / Plan
Assessment / Plan
#ESRD on HD
-Unclear etiology, possibly hypertensive nephrosclerosis versus diabetic disease; HD on M/W/F
-Complicated by chronic acidemia and bone mineral disease; on Nephro-Michelle and phosphate binding therapy
-Presented yesterday from dialysis with tachycardia, no indication for extra dialysis per nephrology today
-There was some issue with his dialysis access, may require vascular consult for new access if not functional
-Planning to attempt dialysis tomorrow with current access
#Elevated troponin -- Type 2 demand ischemia
#Tachycardia -- sinus with RBBB
-ECG on arrival available to review appeared sinus tachycardia with RBBB, did not see A-fib on strips despite his history
-Suspect that this was all predominantly driven by hemodynamic shifts from dialysis, beta-keny held morning of dialysis
-Troponin elevation was demand driven event from tachycardia, flat trend and resolved chest pain not consistent with ACS
-Since earlier in the admission his heart rate has been normal, no events on telemetry overnight
-Will continue on current beta-keny dose and continue to monitor
-Should not hold beta-keny prior to dialysis sessions unless hypotension noted
#ASCVD (CAD, PAD, Carotid Disease, CVA / TIA)
-Home medications include high intensity statin, Plavix, beta-keny
-No signs of critical ischemia here, suspect troponin elevation was demand driven event as above
#Paroxysmal Atrial Fibrillation
-Home regimen includes metoprolol for rate control and Eliquis for AC
-Did not see any AF or RVR on ECGs from the ED, only saw sinus tachycardia with bundle branch block
#Chronic HFpEF
-Not currently on GDMT with MRA or SGLT2 due to renal function
-Home medications include beta-keny, no first-line agents for HFpEF
-Not on any standing loop diuretics due to ESRD, volume managed by dialysis
-Seems euvolemic on current dialysis regimen, plan to resume tomorrow
#Essential Hypertension
-Medications include amlodipine, metoprolol
-Blood pressure stable with current meds and dialysis
#Dyslipidemia
-Associated with ASCVD history as above
-Home meds include dual therapy with atorvastatin and Zetia
#Diabetes Mellitus, Type II
-Suspect that this is becoming more well-controlled with ESRD and insulin retention
-Home medications currently include Ozempic; started on ISS with Accu-Cheks here
#Anxiety/Depression/ADHD
-Continue Zoloft and Lorazepam
-Hold methylphenidate
DVT proph: Eliquis
Code Status: Full Code
Diet: Renal
Anticipated Discharge: 24 - 48 hours
Subjective/Interval History
-
Date of Service: July 02, 2024
Seen and examined the bedside. States he feels well and seems more energetic than yesterday on admission. Denies any chest pain or shortness of breath, denies fevers or chills. No GI or complaints this morning. He does reiterate that he was
not serious yesterday when he mentioned thoughts of self-harm. He mentions to me that he has a dark sense of humor and was making a joke. Denies SI/HI this morning.
Objective Data
-
Labs:
Laboratory Results
07/02/24
08:00
WBC 4.8
Hgb 11.5 L
Hct 34.5 L
Plt Count 173
Sodium 135
Potassium 5.0
Chloride 98
Carbon Dioxide 29
BUN 60 H
Creatinine 6.1 H*
Glucose 94
Calcium 8.9
Vital Signs:
Vital Signs
Temp Pulse Resp BP Pulse Ox
97.5 F 79 16 152/74 97
07/02/24 02:57 07/02/24 11:40 07/02/24 11:40 07/02/24 11:40 07/02/24 11:40
I&O
07/01/24 07/02/24 07/03/24
06:59 06:59 06:59
Intake Total 480 / 480
Balance 480 / 480
Review of Systems
-
History Source: Patient
All other systems: Reviewed and negative
Physical Exam
-
General: Well Nourished, No Apparent Distress and Comfortable
HEENT: Normocephalic, Atraumatic and Moist Mucous Membranes
Respiratory: Clear to Auscultation and Non Labored Respirations
Cardiac: Regular Rhythm, S1/S2 and Murmur (RUSB, systolic, faint); Negative Rub or Gallop
GI: Soft, Nontender, Nondistended and Normal Bowel Sounds
Musculoskeletal: No Clubbing and No Edema
Skin: Warm and Dry; Negative Rash
Neuro: AO x 3, Nonfocal/Grossly Intact and Central Nerve's Intact
Psych: Calm and Intact Judgement/Insight
Data Reviewed
-
Labs: Labs Reviewed by me
--- NOTE | 2024-07-02 13:11 | WOUNDNOTE ---
[facility] RN note: Patient admitted with reports of chest pain during dialysis
See H&P for complete history.
PMH: HF, diabetes, ESRD on dialysis, PAD/CAD/CVA, depression, currently COVID +
Wound Location and type/assessment: Patient admitted with right plantar foot wound (under 5th toe). Per chart review patient had a right foot wound with vac in 2019. Patient is a good historian who explained that wound is healed, although there is
still some callus. The wound is closed, without drainage or erythema. He follows with a grocery cashier and wears custom made off-loading shoes/orthotics. Sacrum and heels intact. Patient demonstrates ability to stand and ambulate without assistance.
Appetite: Reports fair
Pressure redistribution devices in place: Versa Care Accumax
Plan: Patient agreeable to keeping right plantar foot covered with foam. Suggested he have someone bring in orthotic shoes as he ambulates in room. Will confirm orders with hospitalist. CHAPIS Acharya updated and will apply foam.
Updated care plan and will follow as needed.
Note to case management of equipment requested for discharge:
Recommend follow up at wound care center upon discharge.
[2024-07-02 14:58] LABS: Troponin I 0.239 ng/ml
--- NOTE | 2024-07-02 15:03 | PTCARENOTE ---
pt denies chest pain or sob, oob in chair for lunch, vss, will continue to monitor.
[2024-07-02 16:40] LABS: Glucose - Point of Care 92 mg/dl (70-99)
[2024-07-02 19:02] LABS: Troponin I 0.228 ng/ml
[2024-07-02 20:53] LABS: Glucose - Point of Care 79 mg/dl (70-99)
[2024-07-02] MEDS: MELATONIN 5 MG PO (21:09)
[2024-07-02] MEDS: ATIVAN 2 MG PO (21:09)
[2024-07-02] MEDS: ZETIA 10 MG PO (21:09)
[2024-07-02] MEDS: SENOKOT-S 1 TABLET PO (21:09)
[2024-07-02] MEDS: LIPITOR 80 MG PO (21:09)
[2024-07-03] VITALS (7 sets, daily range): BP systolic 109–190; BP diastolic 70–81; PULSE 71; O2SAT 95; BMI 27.1
[2024-07-03 08:07] LABS: Glucose - Point of Care 86 mg/dl (70-99)
--- NOTE | 2024-07-03 08:54 | W.PN.CARDCBS ---
Addendum entered and electronically signed by Phil De La Cruz MD 07/03/24 19:42:
Continue metoprolol ER 25 mg daily and other cardiac meds as on admission.
If atrial fibrillation recurs would restart amiodarone at low dose, stop metoprolol and observe for second-degree heart block, following LFTs closely. Would likely reduce atorvastatin to reduce incidence of hepatic injury.
Follow up arranged
We will sign off, please call if questions.
Addendum entered and electronically signed by Phil De La Cruz MD 07/03/24 19:31:
Late entry: Patient seen at 10 AM
Patient has no cardiac complaints, was frustrated with issues with left upper extremity fistula, vascular surgery was to review
PMH/PSH/SH/FH: Reviewed
Allergies: IV contrast, latex, morphine
Outpatient meds reviewed, amlodipine 2.5 mg twice daily, atorvastatin 80 mg a day, clopidogrel 75 mg a day, Eliquis 5 mg daily, ezetimibe 10 mg daily, metoprolol ER 25 mg daily previously amiodarone had been discontinued for abnormal LFTs and
second-degree AV block
Current cardiac meds: Amlodipine 2.5 mg twice daily, apixaban 5 mg twice daily, atorvastatin 80 mg a day, clopidogrel 75 mg a day, ezetimibe 10 mg a day, metoprolol ER 25 mg daily
ROS: Negative except as above
160/73, pulse 67, head neck exam unremarkable, lungs clear, cardiac regular rate and rhythm no obvious murmurs JVD okay, left upper extremity fistula wrapped, abdomen benign extremities without edema JVD okay
Telemetry: No atrial fibrillation, hemoglobin 12.5, creatinine 7.1, BUN 73
Assessment:
Mildly elevated troponin
Typical atrial flutter with RVR on admission
Paroxysmal atrial fibrillation/tachycardia/flutter
Chronic Eliquis OAC
Recent hospitalization 06/22-06/25/24 for generalized weakness, acute on chronic ambulatory dysfunction, recurrent falls, acute toxic metabolic encephalopathy
CAD
s/p LAD PCI 2005
s/p CABG with GARCIA to LAD, SVG to PDA and SVG to OM 07/05/10
NSTEMI, trop 0.51 during August 2023 admission
s/p 4.0 x 15 mm Xience stent at the ostium of the vein graft 3PAD
s/p left femoral endarterectomy with left femoral-above the knee SFA bypass 04/10/2019ESRD on HD MWF
Sinus bradycardia with Mobitz 1
DM 2
CML
HTN
Hyperlipidemia
Anemia of chronic disease
BPH
Former smoker
COVID positive 06/28/24
Lexiscan nuclear stress test 04/07/19: fixed inferior, anteroseptal and apical defects, no ischemic, EF 42%
Lexiscan nuclear stress test 10/22/2023: Partially reversible inferolateral, inferior, and apical defect consistent with infarction with ischemia.� Ejection fraction 43% with global hypokinesis.
Echo 07/16/2022: EF 60-65% by Kendall's, but closer to 50% visually, mild MR, no /AI, trace TR with mod PHTN with PAP 45-50 mmHg
Echo 09/21/2023: LVEF 65 to 70% with moderate concentric LVH.� No significant valvular disease.
Echo 02/21/2024: EF 55%, normal regional wall motion, mild conc LVH, normal RV size and function, mild MR, no aortic regurgitation
Echo 07/02/2024: EF 50-55%, normal regional wall motion, mild cLVH, no significant valvular disease
Plan:
Stable cardiac status.
No recurrent atrial fibrillation at this time
Volume status seems controlled
Original Note:
Today's Communication / Plan
-
Suspect symptoms were related to rapid atrial flutter
Remains in SR
Continue Toprol 25mg daily.
Follow up arranged
Impression / Plan
-
Poolroom Table Attendant:
Assessment:
Mildly elevated troponin
Typical atrial flutter with RVR on admission
Paroxysmal atrial fibrillation/tachycardia/flutter
Chronic Eliquis OAC
Recent hospitalization 06/22-06/25/24 for generalized weakness, acute on chronic ambulatory dysfunction, recurrent falls, acute toxic metabolic encephalopathy
CAD
s/p LAD PCI 2005
s/p CABG with GARCAI to LAD, SVG to PDA and SVG to OM 07/05/10
NSTEMI, trop 0.51 during August 2023 admission
s/p 4.0 x 15 mm Xience stent at the ostium of the vein graft 10/24/2023
PAD
s/p left femoral endarterectomy with left femoral-above the knee SFA bypass 04/10/2019
ESRD on HD MWF
Sinus bradycardia with Mobitz 1
DM 2
CML
HTN
Hyperlipidemia
Anemia of chronic disease
BPH
Former smoker
COVID positive 06/28/24
Lexiscan nuclear stress test 04/07/19: fixed inferior, anteroseptal and apical defects, no ischemic, EF 42%
Lexiscan nuclear stress test 10/22/2023: Partially reversible inferolateral, inferior, and apical defect consistent with infarction with ischemia.� Ejection fraction 43% with global hypokinesis.
Echo 07/16/2022: EF 60-65% by Kendall's, but closer to 50% visually, mild MR, no /AI, trace TR with mod PHTN with PAP 45-50 mmHg
Echo 09/21/2023: LVEF 65 to 70% with moderate concentric LVH.� No significant valvular disease.
Echo 02/21/2024: EF 55%, normal regional wall motion, mild conc LVH, normal RV size and function, mild MR, no aortic regurgitation
Echo 07/02/2024: EF 50-55%, normal regional wall motion, mild cLVH, no significant valvular disease
Plan:
-Presented with chest pressure during dialysis session. Elevated troponin noted on arrival. Tested positive for COVID 06/28 and on arrival to ER was in rapid atrial flutter.
-Spontaneously converted to SR after he was given IV Cardizem.
-Suspect symptoms were related to rapid atrial flutter as he has been feeling well while in SR.
-Troponin peaked at 0.33 and trended down thereafter. Suspect nonischemic myocardial injury in the setting of COVID and rapid atrial flutter.
-Echo 07/02/2024 noted preserved EF with no RWMA, no significant valvular disease.
-Previously was on amiodarone, however this was stopped 02/2024 due to elevated LFTs and history of Mobitz I.
-Continue Toprol 25mg daily. No significant bradycardia or heart block seen on telemetry.
-Continue Eliquis 5mg BID for anticoagulation.
-HD planned for today.
-Follow up arranged.
HPI: This is a 68 year old male patient with an extensive cardiac PMH of CAD, Atrial fib on Eliquis, HTN, ESRD on HD, CML, CVA 2018, PAD and NIDDM who presented to the ED with complaints of chest pressure and left leg pain. Initial troponin is
0.037.
Progress Note - Poolroom Table Attendant
Subjective
Date of Service: July 03, 2024
Objective
Labs:
Labs
Hgb 11.5 g/dL (13.0-18.0) L 07/02/24 08:00
Hct 34.5 % (39.0-52.0) L 07/02/24 08:00
Plt Count 173 10^3/uL (130-400) 07/02/24 08:00
Sodium 135 mmol/L (135-145) 07/02/24 08:00
Potassium 5.0 mmol/L (3.5-5.1) 07/02/24 08:00
BUN 60 mg/dl (9-20) H 07/02/24 08:00
Creatinine 6.1 mg/dL (0.7-1.3) H* 07/02/24 08:00
Glucose 94 mg/dl (70-99) 07/02/24 08:00
Troponins
07/01/24 07/01/24 07/01/24
10:15 17:43 22:00
Troponin I 0.037 H* 0.225 H* D Cancelled
07/01/24 07/02/24 07/02/24
23:29 06:00 14:17
Troponin I 0.333 H* D Cancelled 0.239 H*
07/02/24
18:20
Troponin I 0.228 H*
Vital Signs and I&O:
Vital Signs
Temp Pulse Resp BP Pulse Ox
97.9 F 68 16 134/80 98
07/03/24 07:57 07/03/24 07:57 07/03/24 07:57 07/03/24 07:57 07/03/24 07:57
Vital Signs
Temp Pulse Resp BP Pulse Ox
97.9 F 68 16 134/80 98
07/03/24 07:57 07/03/24 07:57 07/03/24 07:57 07/03/24 07:57 07/03/24 07:57
Intake & Output
07/01/24 07/02/24 07/03/24 07/04/24
06:59 06:59 06:59 06:59
Intake Total 480 / 480 1800 / 1800
Balance 480 / 480 1800 / 1800
[2024-07-03] MEDS: ELIQUIS 5 MG PO ×2 (09:27→19:57)
[2024-07-03] MEDS: ATIVAN 1 MG PO (09:27)
[2024-07-03] MEDS: ZOLOFT 200 MG PO (09:27)
[2024-07-03] MEDS: PROTONIX 40 MG PO (09:28)
[2024-07-03] MEDS: PHOSLO PO ×2 (09:28→13:43)
[2024-07-03] MEDS: SENOKOT-S 1 TABLET PO (09:28)
[2024-07-03] MEDS: TOPROL XL 25 MG PO (09:29)
[2024-07-03] MEDS: MUCINEX 600 MG PO ×2 (09:29→19:57)
[2024-07-03] MEDS: PLAVIX 75 MG PO (09:29)
[2024-07-03] MEDS: NORVASC 2.5 MG PO ×2 (09:29→19:59)
[2024-07-03] MEDS: NEPHROCAP 1 CAPSULE PO (09:39)
--- NOTE | 2024-07-03 11:07 | W.PN.HOSP.TC ---
Addendum entered and electronically signed by Tai Gan DO 07/03/24 15:54:
CDI: Type II demand ischemia, had chest pain on arrival with elevated troponin. Flat trend not consistent with ACS/type I NE
Original Note:
Today's Communication/Plan
-
Follow-up ultrasound to reassess dialysis access
+/- Tunneled catheter placement
Assessment / Plan
Assessment / Plan
#ESRD on HD
-Unclear etiology, possibly hypertensive nephrosclerosis versus diabetic disease; HD on M/W/F
-Complicated by chronic acidemia and bone mineral disease; on Nephro-Michelle and phosphate binding therapy
-Presented yesterday from dialysis with tachycardia, no indication for extra dialysis per nephrology today
-There was some issue with his dialysis access, may require vascular consult for new access if not functional
-Went down for dialysis today and was unable to achieve access through his current port
-Vascular surgery ordered an ultrasound to further assess, will follow-up results
#Elevated troponin -- Type 2 demand ischemia
#Tachycardia -- sinus with RBBB
-ECG on arrival available to review appeared sinus tachycardia with RBBB, did not see A-fib on strips despite his history
-Suspect that this was all predominantly driven by hemodynamic shifts from dialysis, beta-keny held morning of dialysis
-Troponin elevation was demand driven event from tachycardia, flat trend and resolved chest pain not consistent with ACS
-Since earlier in the admission his heart rate has been normal, no events on telemetry overnight
-Will continue on current beta-keny dose and continue to monitor
-Should not hold beta-keny prior to dialysis sessions unless hypotension noted
#ASCVD (CAD, PAD, Carotid Disease, CVA / TIA)
-Home medications include high intensity statin, Plavix, beta-keny
-No signs of critical ischemia here, suspect troponin elevation was demand driven event as above
#Paroxysmal Atrial Fibrillation
-Home regimen includes metoprolol for rate control and Eliquis for AC
-Did not see any AF or RVR on ECGs from the ED, only saw sinus tachycardia with bundle branch block
#Chronic HFpEF
-Not currently on GDMT with MRA or SGLT2 due to renal function
-Home medications include beta-keny, no first-line agents for HFpEF
-Not on any standing loop diuretics due to ESRD, volume managed by dialysis
-Seems euvolemic on current dialysis regimen
#Essential Hypertension
-Medications include amlodipine, metoprolol
-Blood pressure stable with current meds and dialysis
#Dyslipidemia
-Associated with ASCVD history as above
-Home meds include dual therapy with atorvastatin and Zetia
#Diabetes Mellitus, Type II
-Suspect that this is becoming more well-controlled with ESRD and insulin retention
-Home medications currently include Ozempic; started on ISS with Accu-Cheks here
#Anxiety/Depression/ADHD
-Continue Zoloft and Lorazepam
-Hold methylphenidate
DVT proph: Eliquis
Code Status: Full Code
Diet: Renal
Anticipated Discharge: Within 24 hours
Subjective/Interval History
-
Date of Service: July 03, 2024
No acute events, seen and examined at bedside today. Patient was upset as his dialysis access was not able to be used today. Vascular surgery consulted for consideration of new access.
He denies any other acute complaints. No chest pain, shortness of breath, fevers or chills, N/V/D, urinary issues, paresthesias, abnormal bleeding or bruising
Objective Data
-
Labs:
Laboratory Results
07/03/24
07:43
WBC Pending
Hgb Pending
Hct Pending
Plt Count Pending
Sodium Pending
Potassium Pending
Chloride Pending
Carbon Dioxide Pending
BUN Pending
Creatinine Pending
Glucose Pending
Calcium Pending
Vital Signs:
Vital Signs
Temp Pulse Resp BP Pulse Ox
97.9 F 68 16 134/80 98
07/03/24 07:57 07/03/24 09:29 07/03/24 07:57 07/03/24 09:29 07/03/24 07:57
I&O
07/02/24 07/03/24 07/04/24
06:59 06:59 06:59
Intake Total 480 / 480 1800 / 1800
Balance 480 / 480 1800 / 1800
Review of Systems
-
History Source: Patient
All other systems: Reviewed and negative
Physical Exam
-
General: Well Nourished, No Apparent Distress and Other (Emotionally upset about possibly needing new access)
HEENT: Normocephalic, Atraumatic, Moist Mucous Membranes and Anicteric
Respiratory: Clear to Auscultation and Non Labored Respirations; Negative Wheezes or Rales
Cardiac: Regular Rhythm, S1/S2 and Other (Palpable thrill, bruit at dialysis access); Negative Murmur, Rub or Gallop
GI: Soft, Nontender, Nondistended and Normal Bowel Sounds
Musculoskeletal: No Clubbing, No Cyanosis and No Edema
Skin: Warm and Dry; Negative Rash
Neuro: AO x 3, Nonfocal/Grossly Intact and Central Nerve's Intact
Psych: Other (Emotionally upset, to understandable degree about possibly needing new access)
--- NOTE | 2024-07-03 11:08 | CON.VAS ---
Consultation
Consultation Request
Date/Time Consultation Requested: 07/03/2024
Date/Time Consultation Performed: 07/03/2024
Requesting Provider: Nephrology
Performing Provider: Ashkan
Reason for Consultation: LUE AVG issues
Medical History
-
Chief Complaint: ? malfunctioning LUE AVG
History of Present Illness:
Patient is well-known to the vascular surgery service.
Left upper extremity AV graft placed In 2022.
Has had several fistulogram's and endovascular interventions, most recently in February 2024
Currently admitted with COVID
Dialysis attempted through left upper extremity AV graft and needle cannulation was problematic. Did not receive dialysis
On physical exam he is well-appearing and in no acute distress
Has no significant arm swelling
There is an easily palpable thrill in the graft
Allergies / Home Medications
Allergy/AdvReac Type Severity Reaction Status Date / Time
Iodinated Contrast Media Allergy Nausea / Verified 07/01/24 09:57
Vomiting
latex Allergy Itching- Verified 07/01/24 09:57
pt
declines
having
this
allergy
morphine Allergy Itching- Verified 07/01/24 09:57
pt
declines
having
this
allergy
�Medication �Instructions �Recorded �Confirmed �Type
melatonin 5 mg tablet 5 mg PO HS sleep 04/06/19 07/01/24 History
atorvastatin 80 mg tablet 80 mg PO HS High cholesterol 01/25/21 07/01/24 History
lidocaine-prilocaine 2.5 %-2.5 % 1 applic topical MOWEFR fistula 10/28/23 07/01/24 History
topical cream before dialysis
ezetimibe 10 mg tablet (Zetia) 10 mg PO HS High Cholesterol 11/14/23 07/01/24 History
calcium acetate 667 mg tablet 667 mg PO TIDPRN PRN CKD 02/19/24 07/01/24 History
clopidogrel 75 mg tablet (Plavix) 75 mg PO DAILY Blood Clot 02/19/24 07/01/24 History
Prevention/Tx
coQ10 (ubiquinol) 200 mg capsule 200 mg PO DAILY Supplement 02/19/24 07/01/24 History
semaglutide 0.25 mg or 0.5 mg (2 0.25 mg SC ONCE Diabetes 02/19/24 07/01/24 History
mg/3 mL) subcutaneous pen injector
(Ozempic)
sertraline 100 mg tablet 200 mg PO DAILY Mental Health 02/19/24 07/01/24 History
vitamin B complex-vitamin C-folic 1 tab PO MOWEFR Supplement 02/19/24 07/01/24 History
acid 0.8 mg tablet (Nephro-Michelle)
amlodipine 2.5 mg tablet 2.5 mg PO BID #60 tabs 02/28/24 07/01/24 Rx
apixaban 5 mg tablet (Eliquis) 5 mg PO BID #60 tabs 02/28/24 07/01/24 Rx
metoprolol succinate 25 mg 25 mg PO DAILY #30 tabs 03/14/24 07/01/24 Rx
tablet,extended release 24 hr
acetaminophen 325 mg tablet 650 mg PO Q4HPRN PRN mild 05/25/24 07/01/24 History
pain/fever >100
albuterol sulfate 90 mcg/actuation 2 puff inhalation R Q4HPRN PRN sob 05/25/24 07/01/24 History
aerosol inhaler
mometasone 0.1 % topical cream 1 applic topical BIDPRN PRN left 05/25/24 07/01/24 History
ear
zinc sulfate 50 mg zinc (220 mg) 50 mg PO DAILY Supplement 06/22/24 07/01/24 History
tablet
calcium carbonate (Antacid 2 tab PO Q4HPRN PRN heartburn #0 06/25/24 07/01/24 Rx
Extra-Strength) tabs
methylphenidate HCl 10 mg tablet 30 mg (3 x 10 mg) PO DAILY #6 tabs 06/25/24 07/01/24 Rx
pantoprazole 40 mg tablet,delayed 40 mg PO DAILY #0 tabs 06/25/24 07/01/24 Rx
release
guaifenesin 600 mg tablet, 600 mg PO Q12H 07/01/24 07/01/24 History
extended release 12 hr
lorazepam 1 mg tablet 1 mg PO DAILY 07/01/24 07/01/24 History
lorazepam 1 mg tablet 2 mg PO HS 07/01/24 07/01/24 History
naloxone 4 mg/actuation nasal 1 spray intranasal Q3MPRN PRN 07/01/24 07/01/24 History
spray (Narcan) opioid overdose
oxycodone 10 mg tablet 10 mg PO BIDPRN PRN severe pain 07/01/24 07/01/24 History
polyethylene glycol 3350 17 gram 17 g PO DAILYPRN PRN constipation 07/01/24 07/01/24 History
oral powder packet (HealthyLax)
quercetin 500 mg capsule 500 mg PO DAILY 07/01/24 07/01/24 History
sennosides 8.6 mg-docusate sodium 1 tab PO BID 07/01/24 07/01/24 History
50 mg tablet (Stool
Softener-Laxative)
Physical Exam
Vital Signs
Temp Pulse Resp BP Pulse Ox
97.9 F 68 16 134/80 98
07/03/24 07:57 07/03/24 09:29 07/03/24 07:57 07/03/24 09:29 07/03/24 07:57
Lab Results
Troponin I 0.228 ng/ml H* 07/02/24 18:20
Assessment / Plan
-
Will check left upper extremity hemodialysis access duplex and can make decisions based on this whether to reattempt needle cannulation of the graft or perhaps fistulogram with possible endovascular intervention.
[2024-07-03 11:18] LABS: Glucose - Point of Care 105 mg/dl (70-99)
[2024-07-03] MEDS: APRESOLINE 10 MG IV (11:39)
--- NOTE | 2024-07-03 12:01 | W.PN.NEPH.PH ---
Today's Communication / Plan
-
US
Assessment/Plan
-
Impression:
ESRD Saturday at [facility]
Chest pain with new onset atrial fibrillation
COVID
PAF now in AFIB
DM
CABG hx
Anemia
PVD
LUE AVG/CVC
Hyperphosphatemia
HTN
Diabetic neuropathy
Secondary hyperparathyroidism
Coronary artery disease with previous stenting
Plan:
check labs
for US to determine if AVG can be used or if CVC needed.
follow K level, treat medically
-
-
Date of Service: July 03, 2024
CC / HPI / ROS
-
Chief Complaint:
ESRD
History of Present Illness:
ESRD Saturday schedule
Hemodynamically stable
unable to access ABG this morning
for AVG US
Review of Systems:
No further chest pain
No shortness of breath
Labs
-
Labs:
WBC Cancelled 07/03/24 07:43
RBC Cancelled 07/03/24 07:43
Hgb Cancelled 07/03/24 07:43
Hct Cancelled 07/03/24 07:43
Plt Count Cancelled 07/03/24 07:43
Sodium Cancelled 07/03/24 07:43
Potassium Cancelled 07/03/24 07:43
Chloride Cancelled 07/03/24 07:43
Carbon Dioxide Cancelled 07/03/24 07:43
BUN Cancelled 07/03/24 07:43
Creatinine Cancelled 07/03/24 07:43
eGFR Cancelled 07/03/24 07:43
Glucose Cancelled 07/03/24 07:43
Calcium Cancelled 07/03/24 07:43
Albumin Cancelled 07/02/24 07:00
Physical Exam
-
Vital Signs:
Vital Signs
Temp Pulse Resp BP Pulse Ox
97.9 F 68 16 198/78 98
07/03/24 07:57 07/03/24 11:39 07/03/24 07:57 07/03/24 11:39 07/03/24 07:57
Cardiovascular:: Regular rate and rhythm
Respiratory:: Bilateral: Coarse
Lung Excursion:: Normal
Abdomen:: Nontender and Soft
Bowel Sounds:: Normal
Extremity Edema:: None: Bilateral:
--- NOTE | 2024-07-03 12:41 | PN.CDI ---
CDI
- -
CDI:
Physician Documentation Request
Admit Date: 07/01/24 13:16
Dear Doctor Malik,
Patient admitted for chest pain.
07/03 Cardiology PN: 'Mildly elevated troponin...Troponin peaked at 0.33 and trended down thereafter. Suspect nonischemic myocardial injury in the setting of COVID and rapid atrial flutter.'
07/03 Hospitalist PN: 'Elevated troponin -- Type 2 demand ischemia'
Please clarify the following regarding the documented troponin elevation.
Non-ischemic myocardial injury
Type 2 AR due to demand ischemia
Other
Use of terms such as suspected, likely, concern for, or probable (associated with a specific diagnosis that is being evaluated, monitored, or treated as if it exists) are acceptable and can be coded in the inpatient setting, when documented at the
time of discharge.
Thank you,
TROY Lerma
CDI Specialist
Available via [place] text
Please use your independent medical judgment in providing your response.
[2024-07-03 13:42] LABS: % Basophils 0.2 % (0-2); % Eosinophils 4.5 % (0-6); % Immature Granulocytes 0.2 % (0-0.5); % Lymphocytes 35.7 % (20.5-51.1); % Monocytes 8.3 % (1.7-9.3); % Neutrophils 51.1 % (42.2-75.2); Absolute Eosinophils 0.2 10^3/uL (0-0.7); Absolute Lymphocytes 1.7 10^3/uL (1.2-3.4); Absolute Monocytes 0.4 10^3/uL (0.1-0.6); Absolute Neutrophils 2.5 10^3/uL (1.4-6.5); Hematocrit 37.8 % (39.0-52.0); Hemoglobin 12.9 g/dL (13.0-18.0); Mean Corp Hgb Conc. 34.1 g/dL (33.0-37.0); Mean Corpuscular Hgb 31.1 pg (27.0-31.0); Mean Corpuscular Volume 91.1 fL (80.0-94.0); Mean Platelet Volume 11.3 fL (7.4-10.4); Nucleated Red Blood Cells % 0 % (-); Platelet Count 178 10^3/uL (130-400); Red Blood Cell Count 4.15 10^6/uL (4.70-6.10); Red Cell Dist. Width 16.1 % (11.5-14.5); White Blood Cell Count 4.8 10^3/uL (4.8-10.8)
[2024-07-03 14:05] LABS: Blood Urea Nitrogen 73 mg/dl (9-20); Calcium 8.9 mg/dl (8.4-10.2); Carbon Dioxide 26 mmol/L (22-30); Chloride 98 mmol/L (98-107); Estimated Creatinine Clearance 9 ml/min; Glucose 92 mg/dl (70-99); Potassium 5.2 mmol/L (3.5-5.1); Sodium 135 mmol/L (135-145); eGFR 7.85
--- NOTE | 2024-07-03 14:16 | PTCARENOTE ---
pt unable to receive HD via fistula this AM. Reviewed labs with attending. US report pending
[2024-07-03 14:32] LABS: Hepatitis B Surface Antigen Negative (Negative)
[2024-07-03 14:49] LABS: Hepatitis B Core Ab, Total Negative (Negative); Hepatitis B Surface Antibody Positive; Hepatitis C Antibody Negative (Negative)
[2024-07-03 14:57] LABS: Hepatitis A Antibody, Total Negative (Negative)
--- NOTE | 2024-07-03 15:27 | W.PN.UPDATE ---
Update Note
Progress Note Update
I personally reviewed the hemodialysis access duplex images and the tech document. The left upper extremity AV graft is patent. There are no focal velocity elevations to suggest significant stenosis in the graft or venous outflow. Flow volumes
are acceptable and are uniformly over 2 L/min.
What attempt needle cannulation of the graft once again. If continues to be difficult we can perform a diagnostic fistulogram at that point.
Please call with additional questions or concerns.
Paul Luther III, MD
[facility]
[phone] ([phone])
[2024-07-03 15:47] LABS: Glucose - Point of Care 96 mg/dl (70-99)
[2024-07-03] MEDS: PHOSLO 667 MG PO (15:50)
--- NOTE | 2024-07-03 16:18 | CM ---
Case management following for discharge planning
Chart reviewed
Malfunctioning LUE AVG
Vascular surgery consult
Did not receive HD today
Labs pending
Requested recent HD flow sheets fro [facility]
Pt for the [facility] when medically ready and confirmed HD chair obtained
[2024-07-03 16:38] LABS: Glucose - Point of Care 84 mg/dl (70-99)
--- NOTE | 2024-07-03 17:28 | CON.IR ---
Medical History
Allergies / Home Medications
Allergy/AdvReac Type Severity Reaction Status Date / Time
Iodinated Contrast Media Allergy Nausea / Verified 07/01/24 09:57
Vomiting
latex Allergy Itching- Verified 07/01/24 09:57
pt
declines
having
this
allergy
morphine Allergy Itching- Verified 07/01/24 09:57
pt
declines
having
this
allergy
�Medication �Instructions �Recorded �Confirmed �Type
melatonin 5 mg tablet 5 mg PO HS sleep 04/06/19 07/01/24 History
atorvastatin 80 mg tablet 80 mg PO HS High cholesterol 01/25/21 07/01/24 History
lidocaine-prilocaine 2.5 %-2.5 % 1 applic topical MOWEFR fistula 10/28/23 07/01/24 History
topical cream before dialysis
ezetimibe 10 mg tablet (Zetia) 10 mg PO HS High Cholesterol 11/14/23 07/01/24 History
calcium acetate 667 mg tablet 667 mg PO TIDPRN PRN CKD 02/19/24 07/01/24 History
clopidogrel 75 mg tablet (Plavix) 75 mg PO DAILY Blood Clot 02/19/24 07/01/24 History
Prevention/Tx
coQ10 (ubiquinol) 200 mg capsule 200 mg PO DAILY Supplement 02/19/24 07/01/24 History
semaglutide 0.25 mg or 0.5 mg (2 0.25 mg SC ONCE Diabetes 02/19/24 07/01/24 History
mg/3 mL) subcutaneous pen injector
(Ozempic)
sertraline 100 mg tablet 200 mg PO DAILY Mental Health 02/19/24 07/01/24 History
vitamin B complex-vitamin C-folic 1 tab PO MOWEFR Supplement 02/19/24 07/01/24 History
acid 0.8 mg tablet (Nephro-Michelle)
amlodipine 2.5 mg tablet 2.5 mg PO BID #60 tabs 02/28/24 07/01/24 Rx
apixaban 5 mg tablet (Eliquis) 5 mg PO BID #60 tabs 02/28/24 07/01/24 Rx
metoprolol succinate 25 mg 25 mg PO DAILY #30 tabs 03/14/24 07/01/24 Rx
tablet,extended release 24 hr
acetaminophen 325 mg tablet 650 mg PO Q4HPRN PRN mild 05/25/24 07/01/24 History
pain/fever >100
albuterol sulfate 90 mcg/actuation 2 puff inhalation R Q4HPRN PRN sob 05/25/24 07/01/24 History
aerosol inhaler
mometasone 0.1 % topical cream 1 applic topical BIDPRN PRN left 05/25/24 07/01/24 History
ear
zinc sulfate 50 mg zinc (220 mg) 50 mg PO DAILY Supplement 06/22/24 07/01/24 History
tablet
calcium carbonate (Antacid 2 tab PO Q4HPRN PRN heartburn #0 06/25/24 07/01/24 Rx
Extra-Strength) tabs
methylphenidate HCl 10 mg tablet 30 mg (3 x 10 mg) PO DAILY #6 tabs 06/25/24 07/01/24 Rx
pantoprazole 40 mg tablet,delayed 40 mg PO DAILY #0 tabs 06/25/24 07/01/24 Rx
release
guaifenesin 600 mg tablet, 600 mg PO Q12H 07/01/24 07/01/24 History
extended release 12 hr
lorazepam 1 mg tablet 1 mg PO DAILY 07/01/24 07/01/24 History
lorazepam 1 mg tablet 2 mg PO HS 07/01/24 07/01/24 History
naloxone 4 mg/actuation nasal 1 spray intranasal Q3MPRN PRN 07/01/24 07/01/24 History
spray (Narcan) opioid overdose
oxycodone 10 mg tablet 10 mg PO BIDPRN PRN severe pain 07/01/24 07/01/24 History
polyethylene glycol 3350 17 gram 17 g PO DAILYPRN PRN constipation 07/01/24 07/01/24 History
oral powder packet (HealthyLax)
quercetin 500 mg capsule 500 mg PO DAILY 07/01/24 07/01/24 History
sennosides 8.6 mg-docusate sodium 1 tab PO BID 07/01/24 07/01/24 History
50 mg tablet (Stool
Softener-Laxative)
Physical Exam
Vital Signs
Temp Pulse Resp BP Pulse Ox
98.1 F 67 16 160/73 100
07/03/24 15:40 07/03/24 15:40 07/03/24 15:40 07/03/24 15:40 07/03/24 15:40
Lab Results
07/03/24 13:33
07/03/24 13:33
Troponin I 0.228 ng/ml H* 07/02/24 18:20
Assessment / Plan
-
Re: tunneled dialysis catheter. Need plavix and eliquis held for two days due to intra and postprocedural bleeding risk of TDC placement. If patient needs anticoagulation, heparin can be used.
[2024-07-03] MEDS: ROXICODONE 10 MG PO (20:01)
[2024-07-03] MEDS: SENOKOT-S PO (20:01)
[2024-07-03] MEDS: MELATONIN 5 MG PO (21:06)
[2024-07-03] MEDS: LIPITOR 80 MG PO (21:06)
[2024-07-03] MEDS: ATIVAN 2 MG PO (21:06)
[2024-07-03] MEDS: ZETIA 10 MG PO (21:06)
[2024-07-03] MEDS: TYLENOL 650 MG PO (22:01)
[2024-07-03 22:05] LABS: Glucose - Point of Care 91 mg/dl (70-99)
[2024-07-04] VITALS (13 sets, daily range): BP systolic 73–197; BP diastolic 60–88; BMI 26.9
[2024-07-04 06:26] LABS: Glucose - Point of Care 92 mg/dl (70-99)
[2024-07-04 07:57] LABS: Glucose - Point of Care 92 mg/dl (70-99)
[2024-07-04 08:06] LABS: % Basophils 0.4 % (0-2); % Immature Granulocytes 0.2 % (0-0.5); % Lymphocytes 40.5 % (20.5-51.1); % Monocytes 9.1 % (1.7-9.3); % Neutrophils 43.8 % (42.2-75.2); Absolute Eosinophils 0.3 10^3/uL (0-0.7); Absolute Lymphocytes 2.3 10^3/uL (1.2-3.4); Absolute Monocytes 0.5 10^3/uL (0.1-0.6); Absolute Neutrophils 2.5 10^3/uL (1.4-6.5); Hematocrit 33.6 % (39.0-52.0); Hemoglobin 11.1 g/dL (13.0-18.0); Mean Corpuscular Hgb 31.6 pg (27.0-31.0); Mean Corpuscular Volume 95.7 fL (80.0-94.0); Mean Platelet Volume 12.2 fL (7.4-10.4); Nucleated Red Blood Cells % 0 % (-); Platelet Count 158 10^3/uL (130-400); Red Blood Cell Count 3.51 10^6/uL (4.70-6.10); Red Cell Dist. Width 16.2 % (11.5-14.5); White Blood Cell Count 5.6 10^3/uL (4.8-10.8)
--- NOTE | 2024-07-04 08:17 | W.PN.UPDATE ---
Update Note
Progress Note Update
Notified by nephrology that second attempt at HD via AV fistula was unsuccessful, patient is proceeding with placement of tunneled HD catheter. Will have patient follow-up in our office in 1 to 2 weeks to schedule fistulogram, reviewed plan with
attending Dr. Fantasma Atkinson who agrees.
[2024-07-04 08:42] LABS: Blood Urea Nitrogen 83 mg/dl (9-20); Calcium 8.7 mg/dl (8.4-10.2); Carbon Dioxide 25 mmol/L (22-30); Chloride 99 mmol/L (98-107); Estimated Creatinine Clearance 9 ml/min; Glucose 75 mg/dl (70-99); Sodium 134 mmol/L (135-145); eGFR 7.59
[2024-07-04] MEDS: ATIVAN 1 MG PO (08:47)
[2024-07-04] MEDS: PHOSLO PO ×2 (08:48→17:18)
[2024-07-04] MEDS: SENOKOT-S 1 TABLET PO (08:48)
[2024-07-04] MEDS: TOPROL XL 25 MG PO (08:48)
[2024-07-04] MEDS: MUCINEX 600 MG PO ×2 (08:49→20:07)
[2024-07-04] MEDS: NORVASC 2.5 MG PO ×2 (08:49→20:07)
[2024-07-04] MEDS: ZOLOFT 200 MG PO (08:49)
[2024-07-04] MEDS: PROTONIX 40 MG PO (08:49)
[2024-07-04] MEDS: ROXICODONE 10 MG PO ×2 (10:25→21:12)
[2024-07-04 10:51] LABS: APTT 32.8 Sec (23.4-35.0)
--- NOTE | 2024-07-04 12:39 | W.PN.HOSP.TC ---
Today's Communication/Plan
-
Stop Eliquis and Plavix in preparation of tunneled catheter
Start IV heparin drip without boluses for A-fib prophylaxis
Assessment / Plan
Assessment / Plan
#ESRD on HD
-Unclear etiology, possibly hypertensive nephrosclerosis versus diabetic disease; HD on M/W/F
-Complicated by chronic acidemia and bone mineral disease; on Nephro-Imchelle and phosphate binding therapy
-Presented yesterday from dialysis with tachycardia, no indication for extra dialysis per nephrology today
-There was some issue with his dialysis access, may require vascular consult for new access if not functional
-Went down for dialysis today and was unable to achieve access through his current port
-Vascular surgery assessed access, consulted IR for tunneled catheter
-Holding Eliquis and Plavix in preparation of tunneled cath; transition to IV heparin drip
#Elevated troponin -- Type 2 demand ischemia
#Tachycardia -- sinus with RBBB
-ECG on arrival available to review appeared sinus tachycardia with RBBB, did not see A-fib on strips despite his history
-Suspect that this was all predominantly driven by hemodynamic shifts from dialysis, beta-keny held morning of dialysis
-Troponin elevation was demand driven event from tachycardia, flat trend and resolved chest pain not consistent with ACS
-Since earlier in the admission his heart rate has been normal, no events on telemetry overnight
-Should not hold beta-keny prior to dialysis sessions unless hypotension noted
-Will continue on current beta-keny dose and continue to monitor
#ASCVD (CAD, PAD, Carotid Disease, CVA / TIA)
-Home medications include high intensity statin, Plavix, beta-keny
-No signs of critical ischemia here, suspect troponin elevation was demand driven event as above
#Paroxysmal Atrial Fibrillation
-Home regimen includes metoprolol for rate control and Eliquis for AC
-Did not see any AF or RVR on ECGs from the ED, only saw sinus tachycardia with bundle branch block
#Chronic HFpEF
-Not currently on GDMT with MRA or SGLT2 due to renal function
-Home medications include beta-keny, no first-line agents for HFpEF
-Not on any standing loop diuretics due to ESRD, volume managed by dialysis
-Seems euvolemic on current dialysis regimen
#Essential Hypertension
-Medications include amlodipine, metoprolol
-Blood pressure stable with current meds and dialysis
#Dyslipidemia
-Associated with ASCVD history as above
-Home meds include dual therapy with atorvastatin and Zetia
#Diabetes Mellitus, Type II
-Suspect that this is becoming more well-controlled with ESRD and insulin retention
-Home medications currently include Ozempic; started on ISS with Accu-Cheks here
#Anxiety/Depression/ADHD
-Continue Zoloft and Lorazepam
-Hold methylphenidate
DVT proph: Eliquis
Code Status: Full Code
Diet: Renal
Anticipated Discharge: 24 - 48 hours
Subjective/Interval History
-
Date of Service: July 04, 2024
No acute events. Denies any acute complaints this morning. States he is anxious to get new dialysis access though understands it needs to be done.
He denies any chest pain, shortness of breath, fevers or chills, nausea, vomiting, diarrhea, urinary issues, paresthesias, weakness, abnormal bleeding or bruising
Objective Data
-
Labs:
Laboratory Results
07/04/24 07/04/24
06:45 10:19
WBC 5.6
Hgb 11.1 L
Hct 33.6 L
Plt Count 158
APTT 32.8
Sodium 134 L
Potassium 5.0
Chloride 99
Carbon Dioxide 25
BUN 83 H
Creatinine 7.3 H*
Glucose 75
Calcium 8.7
Vital Signs:
Vital Signs
Temp Pulse Resp BP Pulse Ox
98.1 F 73 16 180/67 100
07/04/24 12:14 07/04/24 12:14 07/04/24 12:14 07/04/24 12:14 07/04/24 12:14
I&O
07/03/24 07/04/24 07/05/24
06:59 06:59 06:59
Intake Total 1800 / 1800 480 / 480
Output Total 400 / 400
Balance 1800 / 1800 80 / 80
Review of Systems
-
History Source: Patient
All other systems: Reviewed and negative
Physical Exam
-
General: Well Nourished, No Apparent Distress and Comfortable
HEENT: Normocephalic, Atraumatic and Moist Mucous Membranes
Respiratory: Clear to Auscultation and Non Labored Respirations; Negative Rales
Cardiac: Regular Rhythm, S1/S2 and Murmur (3/6 systolic murmur); Negative Rub, JVD or Gallop
GI: Soft, Nontender, Nondistended and Normal Bowel Sounds
Musculoskeletal: No Clubbing, No Cyanosis and No Edema
Skin: Warm and Dry; Negative Rash
Neuro: AO x 3, Nonfocal/Grossly Intact and Central Nerve's Intact
Data Reviewed
-
Ultrasound: Report Reviewed by me
Labs: Labs Reviewed by me
--- NOTE | 2024-07-04 13:12 | IR.POSTOP ---
[facility] Post Procedure Note
-
Description of Findings:
Right IJ was occluded. No right EJ visualized.
Successful placement of a nontunneled dialysis catheter via the left IJ. Catheter ready for immediate use. He will return to IR for TDC conversion once eliquis and plavix have been held for an appropriate period of time, likely Saturday or Saturday.
[2024-07-04] MEDS: HEPARIN 500 UNITS IV ×2 (13:30→14:30)
--- NOTE | 2024-07-04 13:45 | W.PN.NEPH.HD ---
Assessment
-
Seen on HD. no new issues. VSS, access temp CVC
holding eliquis and plavix for tunnelled CVC later this week.
start asa [address] per cardiology
primary team managing heparin gtt of eliquis
Progress Note - Hemodialysis
-
Date of Service: July 04, 2024
Duration: 4 hours
Potassium Bath: 2
Calcium Bath: 2.5
Opti-Dialyzer: 160
Ultrafiltration: Other (2kg)
Blood Flow: 400
Dialysate Flow: 600
Heparin: 500x2
EPO: 0
--- NOTE | 2024-07-04 13:57 | W.PN.UPDATE ---
Update Note
Progress Note Update
will need to hold plavix ~5 days. Eliquis will be out of system in 2 days.
hold plavix now, hold eliquis in 2-3 days
[address]a in place of plavix
--- NOTE | 2024-07-04 14:05 | W.PN.UPDATE ---
Update Note
Progress Note Update
Spoke with nephrology, after placement of nontunneled dialysis catheter today, in regards to anticoagulation going forward. Plan for TDC conversion with interventional radiology following AC washout.
Plan will now be:
-Hold Plavix, 5-day washout
-Start aspirin in place of Plavix
-Continue with Eliquis, hold 2 days before TDC conversion for washout
[2024-07-04] MEDS: TYLENOL 650 MG PO (16:02)
[2024-07-04] MEDS: HEPARIN 2700 UNITS INTRACATH (17:40)
[2024-07-04] MEDS: PHOSLO 667 MG PO (18:27)
[2024-07-04] MEDS: ELIQUIS 5 MG PO (20:07)
[2024-07-04] MEDS: SENOKOT-S PO (20:08)
[2024-07-04] MEDS: MELATONIN 5 MG PO (21:11)
[2024-07-04] MEDS: ATIVAN 2 MG PO (21:11)
[2024-07-04] MEDS: ZETIA 10 MG PO (21:11)
[2024-07-04] MEDS: LIPITOR 80 MG PO (21:12)
[2024-07-04 21:55] LABS: Glucose - Point of Care 97 mg/dl (70-99)
[2024-07-05 03:00] VITALS: BP 126/75
[2024-07-05 06:00] VITALS: BMI 26.4
[2024-07-05 07:00] VITALS: BP 123/73
[2024-07-05 08:11] LABS: Glucose - Point of Care 99 mg/dl (70-99)
[2024-07-05 08:34] LABS: % Basophils 0.3 % (0-2); % Eosinophils 5.7 % (0-6); % Immature Granulocytes 0.3 % (0-0.5); % Monocytes 10.9 % (1.7-9.3); % Neutrophils 42.8 % (42.2-75.2); Absolute Eosinophils 0.3 10^3/uL (0-0.7); Absolute Lymphocytes 2.4 10^3/uL (1.2-3.4); Absolute Monocytes 0.7 10^3/uL (0.1-0.6); Absolute Neutrophils 2.5 10^3/uL (1.4-6.5); Hematocrit 35.2 % (39.0-52.0); Hemoglobin 11.7 g/dL (13.0-18.0); Mean Corp Hgb Conc. 33.2 g/dL (33.0-37.0); Mean Corpuscular Hgb 31.5 pg (27.0-31.0); Mean Corpuscular Volume 94.6 fL (80.0-94.0); Mean Platelet Volume 12.2 fL (7.4-10.4); Nucleated Red Blood Cells % 0 % (-); Platelet Count 143 10^3/uL (130-400); Red Blood Cell Count 3.72 10^6/uL (4.70-6.10); Red Cell Dist. Width 15.8 % (11.5-14.5)
[2024-07-05 08:49] LABS: Blood Urea Nitrogen 51 mg/dl (9-20); Calcium 8.6 mg/dl (8.4-10.2); Carbon Dioxide 29 mmol/L (22-30); Chloride 98 mmol/L (98-107); Estimated Creatinine Clearance 13 ml/min; Glucose 91 mg/dl (70-99); Potassium 4.5 mmol/L (3.5-5.1); Sodium 135 mmol/L (135-145); eGFR 11.68
[2024-07-05] MEDS: PHOSLO 667 MG PO (09:00)
[2024-07-05] MEDS: ELIQUIS 5 MG PO ×2 (09:00→21:00)
[2024-07-05] MEDS: TOPROL XL 25 MG PO (09:01)
[2024-07-05] MEDS: MUCINEX 600 MG PO ×2 (09:01→21:00)
[2024-07-05] MEDS: ATIVAN 1 MG PO (09:01)
[2024-07-05] MEDS: ZOLOFT 200 MG PO (09:04)
[2024-07-05] MEDS: PROTONIX 40 MG PO (09:08)
[2024-07-05] MEDS: LOW STRENGTH ASPIRIN 81 MG PO (09:10)
[2024-07-05] MEDS: SENOKOT-S PO ×2 (09:15→21:09)
[2024-07-05] MEDS: NORVASC 2.5 MG PO ×2 (10:10→21:09)
--- NOTE | 2024-07-05 11:03 | W.PN.NEPH.PH ---
Today's Communication / Plan
-
HD tomorrow
Assessment/Plan
-
Impression:
ESRD Saturday at [facility]
Chest pain with new onset atrial fibrillation
COVID
PAF now in AFIB
DM
CABG hx
Anemia
PVD
LUE AVG/CVC
Hyperphosphatemia
HTN
Diabetic neuropathy
Secondary hyperparathyroidism
Coronary artery disease with previous stenting
Plan:
HD tomorrow
off plavix for now
plan to hold eliquis starting saturday for tunnelled CVC
-
-
Date of Service: July 05, 2024
CC / HPI / ROS
-
Chief Complaint:
ESRD
History of Present Illness:
ESRD Saturday schedule
Hemodynamically stable
unable to access AVG saturday
tolerated HD yesterday
remains in COVID isolation
Review of Systems:
No further chest pain
No shortness of breath
Labs
-
Labs:
WBC 6.0 10^3/uL (4.8-10.8) 07/05/24 08:20
RBC 3.72 10^6/uL (4.70-6.10) L 07/05/24 08:20
Hgb 11.7 g/dL (13.0-18.0) L 07/05/24 08:20
Hct 35.2 % (39.0-52.0) L 07/05/24 08:20
Plt Count 143 10^3/uL (130-400) 07/05/24 08:20
Sodium 135 mmol/L (135-145) 07/05/24 08:20
Potassium 4.5 mmol/L (3.5-5.1) 07/05/24 08:20
Chloride 98 mmol/L (98-107) 07/05/24 08:20
Carbon Dioxide 29 mmol/L (22-30) 07/05/24 08:20
BUN 51 mg/dl (9-20) H 07/05/24 08:20
Creatinine 5.1 mg/dL (0.7-1.3) H* 07/05/24 08:20
eGFR 11.68 07/05/24 08:20
Glucose 91 mg/dl (70-99) 07/05/24 08:20
Calcium 8.6 mg/dl (8.4-10.2) 07/05/24 08:20
Albumin Cancelled 07/02/24 07:00
Physical Exam
-
Vital Signs:
Vital Signs
Temp Pulse Resp BP Pulse Ox
97.8 F 82 17 123/73 98
07/05/24 07:00 07/05/24 07:00 07/05/24 07:00 07/05/24 10:10 07/05/24 07:00
Cardiovascular:: Regular rate and rhythm
Respiratory:: Bilateral: Coarse
Lung Excursion:: Normal
Abdomen:: Nontender and Soft
Bowel Sounds:: Normal
Extremity Edema:: None: Bilateral:
[2024-07-05 11:54] LABS: Glucose - Point of Care 109 mg/dl (70-99)
--- NOTE | 2024-07-05 12:53 | W.PN.HOSP.TC ---
Today's Communication/Plan
-
Plan for HD tomorrow
Continue with potassium and fluid restricted diet
Holding Plavix and Eliquis for tunneled catheter placement (?)
Assessment / Plan
Assessment / Plan
#ESRD on HD
-Unclear etiology, possibly hypertensive nephrosclerosis versus diabetic disease; HD on M/W/F
-Complicated by chronic acidemia and bone mineral disease; on Nephro-Michelle and phosphate binding therapy
-Presented yesterday from dialysis with tachycardia, no indication for extra dialysis per nephrology today
-There was some issue with his dialysis access, may require vascular consult for new access if not functional
-Went down for dialysis today and was unable to achieve access through his current port
-Vascular surgery assessed access, consulted IR for tunneled catheter
-Holding Eliquis and Plavix in preparation of tunneled cath; transition to IV heparin drip
-Continue with 1200 mL oral fluid restriction, potassium restricted diet
-Plan for dialysis tomorrow
#Elevated troponin -- Type 2 demand ischemia
#Tachycardia -- sinus with RBBB
-ECG on arrival available to review appeared sinus tachycardia with RBBB, did not see A-fib on strips despite his history
-Suspect that this was all predominantly driven by hemodynamic shifts from dialysis, beta-keny held morning of dialysis
-Troponin elevation was demand driven event from tachycardia, flat trend and resolved chest pain not consistent with ACS
-Since earlier in the admission his heart rate has been normal, no events on telemetry overnight
-Should not hold beta-keny prior to dialysis sessions unless hypotension noted
-Will continue on current beta-keny dose and continue to monitor
#ASCVD (CAD, PAD, Carotid Disease, CVA / TIA)
-Home medications include high intensity statin, Plavix, beta-keny
-No signs of critical ischemia here, suspect troponin elevation was demand driven event as above
#Paroxysmal Atrial Fibrillation
-Home regimen includes metoprolol for rate control and Eliquis for AC
-Did not see any AF or RVR on ECGs from the ED, only saw sinus tachycardia with bundle branch block
#Chronic HFpEF
-Not currently on GDMT with MRA or SGLT2 due to renal function
-Home medications include beta-keny, no first-line agents for HFpEF
-Not on any standing loop diuretics due to ESRD, volume managed by dialysis
-Seems euvolemic on current dialysis regimen
#Essential Hypertension
-Medications include amlodipine, metoprolol
-Blood pressure stable with current meds and dialysis
#Dyslipidemia
-Associated with ASCVD history as above
-Home meds include dual therapy with atorvastatin and Zetia
#Diabetes Mellitus, Type II
-Suspect that this is becoming more well-controlled with ESRD and insulin retention
-Home medications currently include Ozempic; started on ISS with Accu-Cheks here
#Anxiety/Depression/ADHD
-Continue Zoloft and Lorazepam
-Hold methylphenidate
DVT proph: Eliquis
Code Status: Full Code
Diet: Renal
Anticipated Discharge: > 48 hours
Subjective/Interval History
-
Date of Service: July 05, 2024
Seen and examined bedside. No acute events overnight. States he had some pain at the site of his left IJ dialysis access no improved and he is no longer in pain. Denies chest pain, shortness of breath, fevers or chills, nausea, vomiting, urinary
issues, abnormal bleeding or bruising, paresthesias or weakness. He is frustrated at the low potassium diet, now that he has already access for dialysis I will loosen the potassium restriction to 4 g daily
Objective Data
-
Labs:
Laboratory Results
07/05/24
08:20
WBC 6.0
Hgb 11.7 L
Hct 35.2 L
Plt Count 143
Sodium 135
Potassium 4.5
Chloride 98
Carbon Dioxide 29
BUN 51 H
Creatinine 5.1 H*
Glucose 91
Calcium 8.6
Vital Signs:
Vital Signs
Temp Pulse Resp BP Pulse Ox
97.8 F 82 17 123/73 98
07/05/24 07:00 07/05/24 07:00 07/05/24 07:00 07/05/24 10:10 07/05/24 07:00
I&O
07/04/24 07/05/24 07/06/24
06:59 06:59 06:59
Intake Total 480 / 480 530 / 530
Output Total 400 / 400
Balance 80 / 80 530 / 530
Review of Systems
-
History Source: Patient
All other systems: Reviewed and negative
Physical Exam
-
General: Well Nourished, No Apparent Distress, Comfortable and Intubated
HEENT: Normocephalic, Atraumatic, Moist Mucous Membranes and Other (IJ catheter, left side without erythema or signs of infection)
Respiratory: Clear to Auscultation and Non Labored Respirations; Negative Rales
Cardiac: Regular Rhythm, S1/S2 and Murmur; Negative Rub, JVD or Gallop
GI: Soft, Nontender, Nondistended and Normal Bowel Sounds
Musculoskeletal: No Clubbing, No Cyanosis and No Edema
Skin: Warm and Dry; Negative Rash
Neuro: AO x 3, Nonfocal/Grossly Intact and Central Nerve's Intact
Data Reviewed
-
Labs: Labs Reviewed by me and Discussed with Patient
[2024-07-05] MEDS: PHOSLO PO ×2 (13:39→21:02)
--- NOTE | 2024-07-05 15:00 | PTCARENOTE ---
no c/o chest pain, +mild sob with exertion, no sob at rest, refused lunch and phos lo. 'I only want fruit for lunch and I can't have it because i'll have too much potassium!', educated on other selections he may choose, but continued to refuse,
vss, will continue to monitor.
[2024-07-05 15:30] VITALS: BP 143/75
[2024-07-05 16:13] VITALS: BP 143/75; PULSE 78; O2SAT 98
[2024-07-05 16:45] LABS: Glucose - Point of Care 135 mg/dl (70-99)
[2024-07-05] MEDS: ATIVAN 2 MG PO (21:00)
[2024-07-05] MEDS: LIPITOR 80 MG PO (21:00)
[2024-07-05] MEDS: ZETIA 10 MG PO (21:00)
[2024-07-05] MEDS: MELATONIN 5 MG PO (21:05)
[2024-07-05] MEDS: ROXICODONE 10 MG PO (21:05)
[2024-07-05 21:54] LABS: Glucose - Point of Care 118 mg/dl (70-99)
[2024-07-05 22:44] VITALS: BP 131/72
[2024-07-06 05:46] VITALS: BMI 26.7
[2024-07-06 08:23] LABS: Glucose - Point of Care 95 mg/dl (70-99)
[2024-07-06 08:25] VITALS: BP 163/81
[2024-07-06 08:28] LABS: Hematocrit 32.2 % (39.0-52.0); Hemoglobin 10.8 g/dL (13.0-18.0); Mean Corp Hgb Conc. 33.5 g/dL (33.0-37.0); Mean Corpuscular Hgb 31.5 pg (27.0-31.0); Mean Corpuscular Volume 93.9 fL (80.0-94.0); Mean Platelet Volume 12.5 fL (7.4-10.4); Platelet Count 145 10^3/uL (130-400); Red Blood Cell Count 3.43 10^6/uL (4.70-6.10); Red Cell Dist. Width 15.8 % (11.5-14.5); White Blood Cell Count 6.4 10^3/uL (4.8-10.8)
[2024-07-06 08:55] LABS: Blood Urea Nitrogen 67 mg/dl (9-20); Carbon Dioxide 27 mmol/L (22-30); Estimated Creatinine Clearance 11 ml/min; Potassium 4.3 mmol/L (3.5-5.1); eGFR 9.24
[2024-07-06 09:02] LABS: Calcium 8.8 mg/dl (8.4-10.2); Chloride 98 mmol/L (98-107); Glucose 88 mg/dl (70-99); Sodium 135 mmol/L (135-145)
--- NOTE | 2024-07-06 10:02 | W.PN.NEPH.HD ---
Assessment
-
pt seen during HD
vitals stable
temp CVC functions fine
AVFgram timing per vascular
plan tunneled catheter on after plavix wash out and holding Eliquis on 07/07
d/w pt
Progress Note - Hemodialysis
-
Date of Service: July 06, 2024
Duration: 30 minutes and 3 hours
Potassium Bath: 2
Calcium Bath: 2.5
Opti-Dialyzer: 160
Ultrafiltration: Other (2-3kg)
Blood Flow: 400
Dialysate Flow: 600
Heparin: yesx2
EPO: no
[2024-07-06] MEDS: ROXICODONE 10 MG PO ×2 (10:43→22:14)
[2024-07-06] MEDS: ATIVAN 1 MG PO (10:44)
[2024-07-06] MEDS: SENOKOT-S PO ×2 (10:46→21:04)
[2024-07-06] MEDS: PHOSLO PO (10:47)
[2024-07-06 10:49] LABS: Glucose - Point of Care 94 mg/dl (70-99)
[2024-07-06] MEDS: HEPARIN 500 UNITS IV ×2 (11:03→11:04)
[2024-07-06] MEDS: HEPARIN 2.5 UNITS INTRACATH (11:04)
[2024-07-06] MEDS: TOPROL XL 25 MG PO (11:57)
[2024-07-06] MEDS: NORVASC 2.5 MG PO ×2 (11:57→21:04)
[2024-07-06] MEDS: PHOSLO 667 MG PO ×2 (11:58→17:41)
[2024-07-06] MEDS: LOW STRENGTH ASPIRIN 81 MG PO (11:59)
[2024-07-06] MEDS: ZOLOFT 200 MG PO (11:59)
[2024-07-06] MEDS: NEPHROCAP 1 CAPSULE PO (11:59)
[2024-07-06] MEDS: MUCINEX 600 MG PO ×2 (12:00→21:04)
[2024-07-06] MEDS: PROTONIX 40 MG PO (12:00)
[2024-07-06] MEDS: ELIQUIS 5 MG PO ×2 (12:00→21:03)
--- NOTE | 2024-07-06 12:44 | W.PN.HOSP.TC ---
Today's Communication/Plan
-
Monitor vital signs and see plan
HD catheter
Continue to hold Plavix, hold Eliquis starting tomorrow morning
HD per nephrology
Continue COVID isolation
PT/OT
Assessment / Plan
Assessment / Plan
#ESRD on HD
-Unclear etiology, possibly hypertensive nephrosclerosis versus diabetic disease; HD on M//
-Complicated by chronic acidemia and bone mineral disease; on Nephro-Michelle and phosphate binding therapy
-There was some issue with his dialysis access, seen by vascular and plan for fistulogram outpatient. Nephrology following. Plan now for tunneled catheter after Eliquis and Plavix washout. Plavix needs to be held for 5 days and Eliquis
for 2 days. Continue to start holding Eliquis starting 07/07
-Vascular surgery assessed access, consulted IR for tunneled catheter
-Continue with 1200 mL oral fluid restriction, potassium restricted diet
HD per nephrology
#Elevated troponin -- Type 2 demand ischemia
#Tachycardia -- sinus with RBBB
-ECG on arrival available to review appeared sinus tachycardia with RBBB, did not see A-fib on strips despite his history
-Suspect that this was all predominantly driven by hemodynamic shifts from dialysis, beta-keny held morning of dialysis
-Troponin elevation was demand driven event from tachycardia, flat trend and resolved chest pain not consistent with ACS
-Since earlier in the admission his heart rate has been normal, no events on telemetry overnight
-Should not hold beta-keny prior to dialysis sessions unless hypotension noted
-Will continue on current beta-keny dose and continue to monitor
COVID + 07/01/2024
Currently without any respiratory symptoms
Continue to monitor
Per patient he has had COVID vaccination in past
#ASCVD (CAD, PAD, Carotid Disease, CVA / TIA)
-Home medications include high intensity statin, Plavix, beta-keny
-No signs of critical ischemia here, suspect troponin elevation was demand driven event as above
#Paroxysmal Atrial Fibrillation
-Home regimen includes metoprolol for rate control and Eliquis for AC
-Did not see any AF or RVR on ECGs from the ED, only saw sinus tachycardia with bundle branch block
#Chronic HFpEF
-Not currently on GDMT with MRA or SGLT2 due to renal function
-Home medications include beta-keny, no first-line agents for HFpEF
-Not on any standing loop diuretics due to ESRD, volume managed by dialysis
-Seems euvolemic on current dialysis regimen
#Essential Hypertension
-Medications include amlodipine, metoprolol
-Blood pressure stable with current meds and dialysis
#Dyslipidemia
-Associated with ASCVD history as above
-Home meds include dual therapy with atorvastatin and Zetia
#Diabetes Mellitus, Type II
-Suspect that this is becoming more well-controlled with ESRD and insulin retention
-Home medications currently include Ozempic; started on ISS with Accu-Cheks here
#Anxiety/Depression/ADHD
-Continue Zoloft and Lorazepam
-Hold methylphenidate
DVT proph: Eliquis
Code Status: Full Code
General: Well Nourished, No Apparent Distress, Comfortable and Intubated
HEENT: Normocephalic, Atraumatic, Moist Mucous Membranes and Other (IJ catheter, left side without erythema or signs of infection)
Respiratory: Clear to Auscultation and Non Labored Respirations; Negative Rales
Cardiac: Regular Rhythm, S1/S2 and Murmur
GI: Soft, Nontender, Nondistended and Normal Bowel Sounds
Musculoskeletal: No Edema
Neuro: AO x 3, Nonfocal/Grossly Intact and Central Nerve's Intact
Anticipated Discharge: > 48 hours
Subjective/Interval History
-
Date of Service: July 06, 2024
Denies pain
Objective Data
-
Labs:
Laboratory Results
07/06/24
07:53
WBC 6.4
Hgb 10.8 L
Hct 32.2 L
Plt Count 145
Sodium 135
Potassium 4.3
Chloride 98
Carbon Dioxide 27
BUN 67 H
Creatinine 6.2 H*
Glucose 88
Calcium 8.8
Vital Signs:
Vital Signs
Temp Pulse Resp BP Pulse Ox
98.0 F 71 18 152/78 98
07/06/24 08:25 07/06/24 11:57 07/06/24 08:25 07/06/24 11:57 07/05/24 22:44
I&O
07/05/24 07/06/24 07/07/24
06:59 06:59 06:59
Intake Total 530 / 530 680 / 680
Balance 530 / 530 680 / 680
--- NOTE | 2024-07-06 15:37 | CM ---
Case management following for discharge planning
Chart reviewed
HD today
For HD catheter placement
Accepted at the [facility]
Clinicals sent in [facility] - needs HD chair acceptance at facility
Plan - anticipate transfer to the [facility] when medically stable
[2024-07-06 15:47] VITALS: BP 140/67
[2024-07-06 16:41] LABS: Glucose - Point of Care 131 mg/dl (70-99)
[2024-07-06] MEDS: LIPITOR 80 MG PO (21:04)
[2024-07-06] MEDS: ATIVAN 2 MG PO (21:04)
[2024-07-06] MEDS: ZETIA 10 MG PO (21:05)
[2024-07-06] MEDS: MELATONIN 5 MG PO (21:05)
[2024-07-06] MEDS: TYLENOL 650 MG PO (21:09)
[2024-07-06 21:14] LABS: Glucose - Point of Care 140 mg/dl (70-99)
[2024-07-06 22:55] VITALS: BP 141/67
[2024-07-06] MEDS: IMODIUM 2 MG PO (23:32)
[2024-07-07 06:00] VITALS: BMI 26.3
[2024-07-07 07:00] VITALS: BP 155/79
[2024-07-07 08:43] LABS: Glucose - Point of Care 83 mg/dl (70-99)
[2024-07-07] MEDS: PROTONIX 40 MG PO (09:36)
[2024-07-07] MEDS: ZOLOFT 200 MG PO (09:36)
[2024-07-07] MEDS: LOW STRENGTH ASPIRIN 81 MG PO (09:36)
[2024-07-07] MEDS: ATIVAN 1 MG PO (09:36)
[2024-07-07] MEDS: PHOSLO 667 MG PO ×3 (09:36→16:48)
[2024-07-07] MEDS: MUCINEX 600 MG PO ×2 (09:36→20:32)
[2024-07-07] MEDS: SENOKOT-S PO ×2 (09:37→20:32)
[2024-07-07] MEDS: TOPROL XL 25 MG PO (09:37)
[2024-07-07] MEDS: NORVASC 2.5 MG PO ×2 (09:37→20:32)
[2024-07-07 11:16] LABS: % Basophils 0.3 % (0-2); % Eosinophils 6.5 % (0-6); % Immature Granulocytes 0.6 % (0-0.5); % Lymphocytes 37.1 % (20.5-51.1); % Monocytes 11.4 % (1.7-9.3); % Neutrophils 44.1 % (42.2-75.2); Absolute Eosinophils 0.4 10^3/uL (0-0.7); Absolute Lymphocytes 2.4 10^3/uL (1.2-3.4); Absolute Monocytes 0.7 10^3/uL (0.1-0.6); Absolute Neutrophils 2.9 10^3/uL (1.4-6.5); Hematocrit 34.7 % (39.0-52.0); Hemoglobin 11.5 g/dL (13.0-18.0); Mean Corp Hgb Conc. 33.1 g/dL (33.0-37.0); Mean Corpuscular Hgb 30.7 pg (27.0-31.0); Mean Corpuscular Volume 92.8 fL (80.0-94.0); Mean Platelet Volume 12.1 fL (7.4-10.4); Nucleated Red Blood Cells % 0 % (-); Platelet Count 167 10^3/uL (130-400); Red Blood Cell Count 3.74 10^6/uL (4.70-6.10); Red Cell Dist. Width 15.9 % (11.5-14.5); White Blood Cell Count 6.5 10^3/uL (4.8-10.8)
[2024-07-07 11:31] LABS: Blood Urea Nitrogen 48 mg/dl (9-20); Calcium 9.1 mg/dl (8.4-10.2); Carbon Dioxide 31 mmol/L (22-30); Chloride 96 mmol/L (98-107); Estimated Creatinine Clearance 13 ml/min; Glucose 120 mg/dl (70-99); Potassium 4.8 mmol/L (3.5-5.1); Sodium 135 mmol/L (135-145); eGFR 11.96
--- NOTE | 2024-07-07 11:57 | W.PN.HOSP.TC ---
Addendum entered and electronically signed by Deric Shah MD 07/07/24 16:22:
Spoke with IR. Patient does not need to be off Eliquis for HD catheter. Eliquis restarted. Plan now for HD catheter placement tomorrow. N.p.o. past midnight. Discussed with nephrology.
Original Note:
Today's Communication/Plan
-
Monitor vital signs and see plan
HD per nephrology
Tunneled catheter
Asked IR to see if patient can be placed on IV heparin until get HD catheter
On COVID isolation
Assessment / Plan
Assessment / Plan
#ESRD on HD
-Unclear etiology, possibly hypertensive nephrosclerosis versus diabetic disease; HD on M//F
-Complicated by chronic acidemia and bone mineral disease; on Nephro-Michelle and phosphate binding therapy
-There was some issue with his dialysis access, seen by vascular and plan for fistulogram outpatient. Nephrology following. Plan now for tunneled catheter after Eliquis and Plavix washout. Plavix needs to be held for 5 days and Eliquis
for 2 days. Continue to start holding Eliquis starting 07/07
-Vascular surgery assessed access, consulted IR for tunneled catheter 07/09;asked IR to see if in the meantime patient can be put on IV heparin
-Continue with 1200 mL oral fluid restriction, potassium restricted diet
HD per nephrology
#Elevated troponin secondary to nonischemic myocardial injury
#Tachycardia -- sinus with RBBB
-ECG on arrival available to review appeared sinus tachycardia with RBBB, did not see A-fib on strips despite his history
-Suspect that this was all predominantly driven by hemodynamic shifts from dialysis, beta-keny held morning of dialysis
-Troponin elevation was demand driven event from tachycardia, flat trend and resolved chest pain not consistent with ACS
-Since earlier in the admission his heart rate has been normal, no events on telemetry overnight
-Should not hold beta-keny prior to dialysis sessions unless hypotension noted
-Will continue on current beta-keny dose and continue to monitor
COVID + 07/01/2024
Currently without any respiratory symptoms
Continue to monitor
Per patient he has had COVID vaccination in past
#ASCVD (CAD, PAD, Carotid Disease, CVA / TIA)
-Home medications include high intensity statin, Plavix, beta-keny
-No signs of critical ischemia here, suspect troponin elevation was demand driven event as above
#Paroxysmal Atrial Fibrillation
-Home regimen includes metoprolol for rate control and Eliquis for AC
-Did not see any AF or RVR on ECGs from the ED, only saw sinus tachycardia with bundle branch block
holding Eliquis for HD catheter,asked IR to see if in the meantime patient can be put on IV heparin
#Chronic HFpEF
-Not currently on GDMT with MRA or SGLT2 due to renal function
-Home medications include beta-keny, no first-line agents for HFpEF
-Not on any standing loop diuretics due to ESRD, volume managed by dialysis
-Seems euvolemic on current dialysis regimen
#Essential Hypertension
-Medications include amlodipine, metoprolol
-Blood pressure stable with current meds and dialysis
#Dyslipidemia
-Associated with ASCVD history as above
-Home meds include dual therapy with atorvastatin and Zetia
#Diabetes Mellitus, Type II
-Suspect that this is becoming more well-controlled with ESRD and insulin retention
-Home medications currently include Ozempic; started on ISS with Accu-Cheks here
#Anxiety/Depression/ADHD
-Continue Zoloft and Lorazepam
-Hold methylphenidate
DVT proph: Eliquis
Code Status: Full Code
General: Well Nourished, No Apparent Distress, Comfortable
HEENT: Normocephalic, Atraumatic, Moist Mucous Membranes and Other (IJ catheter, left side without erythema or signs of infection)
Respiratory: Clear to Auscultation and Non Labored Respirations; Negative Rales
Cardiac: Regular Rhythm, S1/S2 and Murmur
GI: Soft, Nontender, Nondistended and Normal Bowel Sounds
Musculoskeletal: No Edema
Neuro: AO x 3, Nonfocal/Grossly Intact and Central Nerve's Intact
Anticipated Discharge: > 48 hours
Subjective/Interval History
-
Date of Service: July 07, 2024
denies pain
Objective Data
-
Labs:
Laboratory Results
07/07/24
10:53
WBC 6.5
Hgb 11.5 L
Hct 34.7 L
Plt Count 167
Sodium 135
Potassium 4.8
Chloride 96 L
Carbon Dioxide 31 H
BUN 48 H
Creatinine 5.0 H*
Glucose 120 H
Calcium 9.1
Vital Signs:
Vital Signs
Temp Pulse Resp BP Pulse Ox
98.2 F 73 18 155/79 98
07/07/24 07:00 07/07/24 09:37 07/07/24 07:00 07/07/24 09:37 07/07/24 07:00
I&O
07/06/24 07/07/24 07/08/24
06:59 06:59 06:59
Intake Total 680 / 680 120 / 120 100 / 100
Balance 680 / 680 120 / 120 100 / 100
[2024-07-07 12:14] LABS: Glucose - Point of Care 91 mg/dl (70-99)
[2024-07-07 15:00] VITALS: BP 149/70
--- NOTE | 2024-07-07 15:48 | W.PN.NEPH.PH ---
Today's Communication / Plan
-
HD tomorrow
Assessment/Plan
-
Impression:
ESRD Saturday at [facility]
Chest pain with new onset atrial fibrillation
COVID
PAF now in AFIB
DM
CABG hx
Anemia
PVD
LUE AVG/CVC
Hyperphosphatemia
HTN
Diabetic neuropathy
Secondary hyperparathyroidism
Coronary artery disease with previous stenting
Plan:
HD tomorrow
off plavix for now
plan to hold eliquis starting saturday for tunnelled CVC ?
vasc intervention after d/c ad out pt
HD tomorrow
-
-
Date of Service: July 07, 2024
CC / HPI / ROS
-
Chief Complaint:
ESRD
History of Present Illness:
ESRD Saturday schedule
Hemodynamically stable
unable to access AVG, on temp HD catheter now
tolerated HD yesterday
remains in COVID isolation
Review of Systems:
No chest pain
No shortness of breath
Labs
-
Labs:
WBC 6.5 10^3/uL (4.8-10.8) 07/07/24 10:53
RBC 3.74 10^6/uL (4.70-6.10) L 07/07/24 10:53
Hgb 11.5 g/dL (13.0-18.0) L 07/07/24 10:53
Hct 34.7 % (39.0-52.0) L 07/07/24 10:53
Plt Count 167 10^3/uL (130-400) 07/07/24 10:53
Sodium 135 mmol/L (135-145) 07/07/24 10:53
Potassium 4.8 mmol/L (3.5-5.1) 07/07/24 10:53
Chloride 96 mmol/L (98-107) L 07/07/24 10:53
Carbon Dioxide 31 mmol/L (22-30) H 07/07/24 10:53
BUN 48 mg/dl (9-20) H 07/07/24 10:53
Creatinine 5.0 mg/dL (0.7-1.3) H* 07/07/24 10:53
eGFR 11.96 07/07/24 10:53
Glucose 120 mg/dl (70-99) H 07/07/24 10:53
Calcium 9.1 mg/dl (8.4-10.2) 07/07/24 10:53
Albumin Cancelled 07/02/24 07:00
Physical Exam
-
Vital Signs:
Vital Signs
Temp Pulse Resp BP Pulse Ox
98.2 F 73 18 155/79 98
07/07/24 07:00 07/07/24 09:37 07/07/24 07:00 07/07/24 09:37 07/07/24 07:00
Cardiovascular:: Regular rate and rhythm
Respiratory:: Bilateral: CTA
Lung Excursion:: Normal
Abdomen:: Nontender and Soft
Extremity Edema:: None: Bilateral:
Luther Catheter: No
[2024-07-07 16:25] VITALS: BP 149/70; PULSE 74; O2SAT 97
[2024-07-07 16:47] LABS: Glucose - Point of Care 111 mg/dl (70-99)
[2024-07-07] MEDS: ROXICODONE 10 MG PO ×2 (16:48→23:21)
[2024-07-07] MEDS: ELIQUIS 5 MG PO (20:32)
[2024-07-07] MEDS: ATIVAN 2 MG PO (21:07)
[2024-07-07] MEDS: MELATONIN 5 MG PO (21:07)
[2024-07-07] MEDS: ZETIA 10 MG PO (21:07)
[2024-07-07] MEDS: LIPITOR 80 MG PO (21:07)
[2024-07-07 21:19] LABS: Glucose - Point of Care 105 mg/dl (70-99)
[2024-07-07 23:57] VITALS: BP 150/69
[2024-07-08] VITALS (9 sets, daily range): BP systolic 67–175; BP diastolic 60–82; BMI 26.7
[2024-07-08 06:08] LABS: Glucose - Point of Care 99 mg/dl (70-99)
[2024-07-08 08:08] LABS: % Basophils 0.2 % (0-2); % Immature Granulocytes 0.2 % (0-0.5); % Lymphocytes 32.4 % (20.5-51.1); % Monocytes 11.5 % (1.7-9.3); % Neutrophils 48.7 % (42.2-75.2); Absolute Eosinophils 0.6 10^3/uL (0-0.7); Absolute Lymphocytes 2.6 10^3/uL (1.2-3.4); Absolute Monocytes 0.9 10^3/uL (0.1-0.6); Absolute Neutrophils 3.9 10^3/uL (1.4-6.5); Hematocrit 33.3 % (39.0-52.0); Hemoglobin 11.1 g/dL (13.0-18.0); Mean Corp Hgb Conc. 33.3 g/dL (33.0-37.0); Mean Corpuscular Hgb 30.5 pg (27.0-31.0); Mean Corpuscular Volume 91.5 fL (80.0-94.0); Mean Platelet Volume 11.9 fL (7.4-10.4); Nucleated Red Blood Cells % 0 % (-); Platelet Count 174 10^3/uL (130-400); Red Blood Cell Count 3.64 10^6/uL (4.70-6.10); Red Cell Dist. Width 15.7 % (11.5-14.5)
[2024-07-08 08:23] LABS: Glucose - Point of Care 104 mg/dl (70-99)
[2024-07-08 08:34] LABS: Blood Urea Nitrogen 65 mg/dl (9-20); Calcium 9.2 mg/dl (8.4-10.2); Carbon Dioxide 26 mmol/L (22-30); Chloride 97 mmol/L (98-107); Estimated Creatinine Clearance 11 ml/min; Glucose 104 mg/dl (70-99); Potassium 4.3 mmol/L (3.5-5.1); Sodium 135 mmol/L (135-145); eGFR 9.24
[2024-07-08] MEDS: FLEXBUMIN 25% FOR HEMODIALYSIS 12.5 GRAMS IV ×2 (09:15→10:30)
[2024-07-08] MEDS: SENOKOT-S PO ×2 (09:31→20:44)
[2024-07-08] MEDS: PHOSLO PO ×2 (09:32→12:34)
[2024-07-08] MEDS: MUCINEX 600 MG PO ×2 (09:35→20:40)
[2024-07-08] MEDS: PROTONIX 40 MG PO (09:36)
[2024-07-08] MEDS: ZOLOFT 200 MG PO (09:36)
[2024-07-08] MEDS: LOW STRENGTH ASPIRIN 81 MG PO (09:36)
[2024-07-08] MEDS: ATIVAN 1 MG PO (09:37)
[2024-07-08] MEDS: ELIQUIS 5 MG PO ×2 (09:39→20:40)
[2024-07-08] MEDS: NEPHROCAP 1 CAPSULE PO (09:42)
[2024-07-08] MEDS: ROXICODONE 10 MG PO ×2 (09:51→20:39)
--- NOTE | 2024-07-08 10:06 | W.PN.NEPH.HD ---
Assessment
-
Patient seen on dialysis
Systolic blood pressure 124 at current ultrafiltration rate
HD via temp cath
Patient to undergo tunneled dialysis catheter placement today following dialysis
Progress Note - Hemodialysis
-
Date of Service: July 08, 2024
Duration: 30 minutes and 3 hours
Potassium Bath: 3
Calcium Bath: 2.5
Opti-Dialyzer: 160
Ultrafiltration: Other (1 kg, UF reduced)
Blood Flow: 400
Dialysate Flow: 600
Heparin: None
EPO: None
--- NOTE | 2024-07-08 11:58 | W.PN.HOSP.TC ---
Today's Communication/Plan
-
Monitor vitals
See plan
Start Plavix today, DC aspirin
Continue Eliquis
Tunneled catheter today
HD per nephrology
Assessment / Plan
Assessment / Plan
#ESRD on HD
-Unclear etiology, possibly hypertensive nephrosclerosis versus diabetic disease; HD on M/W/F
-Complicated by chronic acidemia and bone mineral disease; on Nephro-Michelle and phosphate binding therapy
-There was some issue with his dialysis access, seen by vascular and plan for fistulogram outpatient. Nephrology following. Plan now for tunneled catheter after Eliquis and Plavix washout. Plavix needs to be held for 5 days and Eliquis
for 2 days.
Asked IR and they are now okay with putting HD catheter on Eliquis. Continue with Eliquis. Start Plavix today
-Vascular surgery assessed access, consulted IR for tunneled catheter 07/08
HD per nephrology
#Elevated troponin secondary to nonischemic myocardial injury
#Tachycardia -- sinus with RBBB
-ECG on arrival available to review appeared sinus tachycardia with RBBB, did not see A-fib on strips despite his history
-Suspect that this was all predominantly driven by hemodynamic shifts from dialysis, beta-keny held morning of dialysis
-Troponin elevation was demand driven event from tachycardia, flat trend and resolved chest pain not consistent with ACS
-Since earlier in the admission his heart rate has been normal, no events on telemetry overnight
-Should not hold beta-keny prior to dialysis sessions unless hypotension noted
-Will continue on current beta-keny dose and continue to monitor
COVID + 07/01/2024
Currently without any respiratory symptoms
Continue to monitor
Per patient he has had COVID vaccination in past
#ASCVD (CAD, PAD, Carotid Disease, CVA / TIA)
-Home medications include high intensity statin, Plavix, beta-keny
-No signs of critical ischemia here, suspect troponin elevation was demand driven event as above
#Paroxysmal Atrial Fibrillation
-Home regimen includes metoprolol for rate control and Eliquis for AC
-Did not see any AF or RVR on ECGs from the ED, only saw sinus tachycardia with bundle branch block
Continue Eliquis
#Chronic HFpEF
-Not currently on GDMT with MRA or SGLT2 due to renal function
-Home medications include beta-keny, no first-line agents for HFpEF
-Not on any standing loop diuretics due to ESRD, volume managed by dialysis
-Seems euvolemic on current dialysis regimen
#Essential Hypertension
-Medications include amlodipine, metoprolol
-Blood pressure stable with current meds and dialysis
#Dyslipidemia
-Associated with ASCVD history as above
-Home meds include dual therapy with atorvastatin and Zetia
#Diabetes Mellitus, Type II
-Suspect that this is becoming more well-controlled with ESRD and insulin retention
-Home medications currently include Ozempic; started on ISS with Accu-Cheks here
#Anxiety/Depression/ADHD
-Continue Zoloft and Lorazepam
-Hold methylphenidate
DVT proph: Eliquis
Code Status: Full Code
General: Well Nourished, No Apparent Distress, Comfortable
HEENT: Normocephalic, Atraumatic, Moist Mucous Membranes and Other (IJ catheter, left side without erythema or signs of infection)
Respiratory: Clear to Auscultation and Non Labored Respirations; Negative Rales
Cardiac: Regular Rhythm, S1/S2 and Murmur
GI: Soft, Nontender, Nondistended and Normal Bowel Sounds
Musculoskeletal: No Edema
Neuro: AO x 3, Nonfocal/Grossly Intact and Central Nerve's Intact
Anticipated Discharge: Within 24 hours
Subjective/Interval History
-
Date of Service: July 08, 2024
denies pain
Objective Data
-
Labs:
Laboratory Results
07/08/24
07:38
WBC 8.0
Hgb 11.1 L
Hct 33.3 L
Plt Count 174
Sodium 135
Potassium 4.3
Chloride 97 L
Carbon Dioxide 26
BUN 65 H
Creatinine 6.2 H*
Glucose 104 H
Calcium 9.2
Vital Signs:
Vital Signs
Temp Pulse Resp BP Pulse Ox
98.6 F 72 20 156/65 98
07/08/24 07:00 07/08/24 07:00 07/08/24 07:00 07/08/24 07:00 07/08/24 07:00
I&O
07/07/24 07/08/24 07/09/24
06:59 06:59 06:59
Intake Total 120 / 120 580 / 580
Balance 120 / 120 580 / 580
[2024-07-08 12:04] LABS: Glucose - Point of Care 128 mg/dl (70-99)
[2024-07-08] MEDS: NORVASC 2.5 MG PO ×2 (12:29→20:40)
[2024-07-08] MEDS: TOPROL XL 25 MG PO (12:30)
--- NOTE | 2024-07-08 13:44 | PTCARENOTE ---
patient tolerated hemodialysis this am, awaiting tunneled CVC placement in IR today, has been NPO except medications as ordered prior to procedure, medicated with PRN Roxicodone for c/o of left lower back pain and left leg pain with some relief,
vss, will continue to monitor.
[2024-07-08] MEDS: ANCEF 10 IV (16:18)
--- NOTE | 2024-07-08 16:47 | PTCARENOTE ---
patient returned from IR s/p Left tunneled internal jugular hemodialysis catheter placement via stretcher. left anterior chest catheter dressing with small amount of drainage. previous left IJ dressing c/d/i. patient denies pain, lungs remain
coarse b/l, apical regular, no other changes in previous shift assessment, will continue to monitor.
[2024-07-08 18:00] LABS: Glucose - Point of Care 86 mg/dl (70-99)
[2024-07-08] MEDS: NOVOLOG FLEXPEN-LOW RESISTANCE SC (18:00)
[2024-07-08] MEDS: PHOSLO 667 MG PO (19:22)
[2024-07-08 21:18] LABS: Glucose - Point of Care 133 mg/dl (70-99)
[2024-07-08] MEDS: LIPITOR 80 MG PO (22:14)
[2024-07-08] MEDS: ATIVAN 2 MG PO (22:14)
[2024-07-08] MEDS: MELATONIN 5 MG PO (22:14)
[2024-07-08] MEDS: ZETIA 10 MG PO (22:14)
[2024-07-09] MEDS: TYLENOL 650 MG PO (00:17)
[2024-07-09 07:38] VITALS: BP 136/70
[2024-07-09 07:49] LABS: Glucose - Point of Care 96 mg/dl (70-99)
[2024-07-09] MEDS: NOVOLOG FLEXPEN-LOW RESISTANCE SC ×2 (08:50→11:47)
[2024-07-09] MEDS: ELIQUIS 5 MG PO ×2 (08:52→20:07)
[2024-07-09] MEDS: ATIVAN 1 MG PO (08:52)
[2024-07-09] MEDS: SENOKOT-S PO ×2 (08:53→20:08)
[2024-07-09] MEDS: MUCINEX 600 MG PO ×2 (08:53→20:08)
[2024-07-09] MEDS: PROTONIX 40 MG PO (08:53)
[2024-07-09] MEDS: TOPROL XL 25 MG PO (08:53)
[2024-07-09] MEDS: PLAVIX 75 MG PO (08:53)
[2024-07-09] MEDS: NORVASC 2.5 MG PO ×2 (08:53→20:08)
[2024-07-09] MEDS: ZOLOFT 200 MG PO (08:54)
[2024-07-09] MEDS: PHOSLO PO (08:55)
--- NOTE | 2024-07-09 09:42 | CM ---
Addendum entered by Kelly Em 07/09/24 14:59:
Pt seen by PT/OT today - recommending HH
Discussed with pt and his at bedside
Prefer [facility] - referral sent in Care Port
Plan - anticipate home with [facility] when medically stable
Original Note:
Case management following for discharge planning
Updated clinicals sent via Care Port to the [facility] [place] aware
Pt accepted for SNF - awaiting confirmed HD chair
CM remains available for d/c needs
Plan - anticipate transfer to the [facility] when HD chair obtained and medically ready
[2024-07-09 11:33] LABS: Glucose - Point of Care 89 mg/dl (70-99)
[2024-07-09] MEDS: PHOSLO 667 MG PO ×2 (11:46→16:55)
[2024-07-09 11:47] LABS: % Basophils 0.3 % (0-2); % Eosinophils 7.5 % (0-6); % Immature Granulocytes 0.1 % (0-0.5); % Lymphocytes 32.9 % (20.5-51.1); % Monocytes 13.1 % (1.7-9.3); % Neutrophils 46.1 % (42.2-75.2); Absolute Eosinophils 0.5 10^3/uL (0-0.7); Absolute Lymphocytes 2.2 10^3/uL (1.2-3.4); Absolute Monocytes 0.9 10^3/uL (0.1-0.6); Absolute Neutrophils 3.1 10^3/uL (1.4-6.5); Hematocrit 34.5 % (39.0-52.0); Hemoglobin 11.2 g/dL (13.0-18.0); Mean Corp Hgb Conc. 32.5 g/dL (33.0-37.0); Mean Corpuscular Hgb 30.3 pg (27.0-31.0); Mean Corpuscular Volume 93.2 fL (80.0-94.0); Mean Platelet Volume 12.4 fL (7.4-10.4); Nucleated Red Blood Cells % 0 % (-); Platelet Count 161 10^3/uL (130-400); Red Cell Dist. Width 15.6 % (11.5-14.5); White Blood Cell Count 6.7 10^3/uL (4.8-10.8)
--- NOTE | 2024-07-09 12:11 | WOUNDNOTE ---
RIGHT PLANTAR FOOT
--- NOTE | 2024-07-09 12:11 | WOUNDNOTE ---
[facility] RN NOTE: Visited patient to follow up on previously healed right plantar foot wound. Healed area is still intact but callus area appears larger. Patient states he has been ambulating with walker and is wearing his sneakers instead of his
orthotics. With patients consent, a call was made to to request that orthotic shoes be brought in to hospital. and patient agree using orthotics is a good idea as his ambulation has increased recently. Silicone foam applied to right foot
as ordered. Sacrum intact. Patient is able to turn easily in bed and an air cushion was added to chair. CHAPIS Tate given update.
[2024-07-09 12:16] LABS: Blood Urea Nitrogen 53 mg/dl (9-20); Calcium 9.5 mg/dl (8.4-10.2); Carbon Dioxide 26 mmol/L (22-30); Chloride 99 mmol/L (98-107); Estimated Creatinine Clearance 13 ml/min; Glucose 83 mg/dl (70-99); Potassium 4.8 mmol/L (3.5-5.1); Sodium 137 mmol/L (135-145); eGFR 11.41
--- NOTE | 2024-07-09 12:20 | W.PN.HOSP.TC ---
Today's Communication/Plan
-
monitor vitals
see plan
HD per nephrology
now has tunnelled catheter
dc planning
cw eliquis ,plavix
Discussed with spouse over the phone
Assessment / Plan
Assessment / Plan
#ESRD on HD
-Unclear etiology, possibly hypertensive nephrosclerosis versus diabetic disease; HD on M/W/F
-Complicated by chronic acidemia and bone mineral disease; on Nephro-Michelle and phosphate binding therapy
-There was some issue with his dialysis access, seen by vascular and plan for fistulogram outpatient. Nephrology following. Status post tunneled catheter 07/08. Now back on Eliquis and Plavix
-Vascular surgery assessed access, consulted IR for tunneled catheter 07/08
HD per nephrology
major account manager for chair time
#Elevated troponin secondary to nonischemic myocardial injury
#Tachycardia -- sinus with RBBB
-ECG on arrival available to review appeared sinus tachycardia with RBBB, did not see A-fib on strips despite his history
-Suspect that this was all predominantly driven by hemodynamic shifts from dialysis, beta-keny held morning of dialysis
-Troponin elevation was demand driven event from tachycardia, flat trend and resolved chest pain not consistent with ACS
-Since earlier in the admission his heart rate has been normal, no events on telemetry overnight
-Should not hold beta-keny prior to dialysis sessions unless hypotension noted
-Will continue on current beta-keny dose and continue to monitor
COVID + 07/01/2024 however symptoms started before
Now off isolation
Currently without any respiratory symptoms
Continue to monitor
Per patient he has had COVID vaccination in past
#ASCVD (CAD, PAD, Carotid Disease, CVA / TIA)
-Home medications include high intensity statin, Plavix, beta-keny
-No signs of critical ischemia here, suspect troponin elevation was demand driven event as above
#Paroxysmal Atrial Fibrillation
-Home regimen includes metoprolol for rate control and Eliquis for AC
-Did not see any AF or RVR on ECGs from the ED, only saw sinus tachycardia with bundle branch block
Continue Eliquis
#Chronic HFpEF
-Not currently on GDMT with MRA or SGLT2 due to renal function
-Home medications include beta-keny, no first-line agents for HFpEF
-Not on any standing loop diuretics due to ESRD, volume managed by dialysis
-Seems euvolemic on current dialysis regimen
#Essential Hypertension
-Medications include amlodipine, metoprolol
-Blood pressure stable with current meds and dialysis
#Dyslipidemia
-Associated with ASCVD history as above
-Home meds include dual therapy with atorvastatin and Zetia
#Diabetes Mellitus, Type II
-Suspect that this is becoming more well-controlled with ESRD and insulin retention
-Home medications currently include Ozempic; started on ISS with Accu-Cheks here
#Anxiety/Depression/ADHD
-Continue Zoloft and Lorazepam
-Hold methylphenidate
DVT proph: Eliquis
Code Status: Full Code
General: Well Nourished, No Apparent Distress, Comfortable
HEENT: Normocephalic, Atraumatic, Moist Mucous Membranes and tunneled catheter
Respiratory: Clear to Auscultation and Non Labored Respirations; Negative Rales
Cardiac: Regular Rhythm, S1/S2 and Murmur
GI: Soft, Nontender, Nondistended and Normal Bowel Sounds
Musculoskeletal: No Edema
Neuro: AO x 3, Nonfocal/Grossly Intact and Central Nerve's Intact
Anticipated Discharge: Within 24 hours
Subjective/Interval History
-
Date of Service: July 09, 2024
denies pain
Objective Data
-
Labs:
Laboratory Results
07/09/24
11:00
WBC 6.7
Hgb 11.2 L
Hct 34.5 L
Plt Count 161
Sodium 137
Potassium 4.8
Chloride 99
Carbon Dioxide 26
BUN 53 H
Creatinine 5.2 H*
Glucose 83
Calcium 9.5
Vital Signs:
Vital Signs
Temp Pulse Resp BP Pulse Ox
98.1 F 73 16 150/77 98
07/09/24 07:38 07/09/24 08:53 07/09/24 07:38 07/09/24 08:53 07/09/24 07:38
I&O
07/08/24 07/09/24 07/10/24
06:59 06:59 06:59
Intake Total 580 / 580 720 / 720
Balance 580 / 580 720 / 720
[2024-07-09 14:25] VITALS: BP 149/69
[2024-07-09 14:35] VITALS: BP 149/69; PULSE 78
--- NOTE | 2024-07-09 15:09 | W.PN.NEPH.PH ---
Today's Communication / Plan
-
Dialysis tomorrow then likely discharge to home
Assessment/Plan
-
Impression:
ESRD Saturday at [facility]
Chest pain with new onset atrial fibrillation
COVID
PAF now in AFIB
DM
CABG hx
Anemia
PVD
LUE AVG/CVC
Hyperphosphatemia
HTN
Diabetic neuropathy
Secondary hyperparathyroidism
Coronary artery disease with previous stenting
Plan:
HD tomorrow,orders provided
tunneled HD catheter in place
vasc intervention re : avf after d/c ad out pt
-
-
Date of Service: July 09, 2024
CC / HPI / ROS
-
Chief Complaint:
ESRD
History of Present Illness:
ESRD Saturday schedule
Hemodynamically stable
unable to access AVG, on tunneled HD catheter now
tolerated HD yesterday
Review of Systems:
No chest pain
No shortness of breath
Labs
-
Labs:
WBC 6.7 10^3/uL (4.8-10.8) 07/09/24 11:00
RBC 3.70 10^6/uL (4.70-6.10) L 07/09/24 11:00
Hgb 11.2 g/dL (13.0-18.0) L 07/09/24 11:00
Hct 34.5 % (39.0-52.0) L 07/09/24 11:00
Plt Count 161 10^3/uL (130-400) 07/09/24 11:00
Sodium 137 mmol/L (135-145) 07/09/24 11:00
Potassium 4.8 mmol/L (3.5-5.1) 07/09/24 11:00
Chloride 99 mmol/L (98-107) 07/09/24 11:00
Carbon Dioxide 26 mmol/L (22-30) 07/09/24 11:00
BUN 53 mg/dl (9-20) H 07/09/24 11:00
Creatinine 5.2 mg/dL (0.7-1.3) H* 07/09/24 11:00
eGFR 11.41 07/09/24 11:00
Glucose 83 mg/dl (70-99) 07/09/24 11:00
Calcium 9.5 mg/dl (8.4-10.2) 07/09/24 11:00
Albumin Cancelled 07/02/24 07:00
Physical Exam
-
Vital Signs:
Vital Signs
Temp Pulse Resp BP Pulse Ox
98.1 F 73 16 150/77 98
07/09/24 07:38 07/09/24 08:53 07/09/24 07:38 07/09/24 08:53 07/09/24 07:38
Cardiovascular:: Regular rate and rhythm
Respiratory:: Bilateral: CTA
Lung Excursion:: Normal
Abdomen:: Nontender and Soft
Extremity Edema:: None: Bilateral:
Luther Catheter: No
[2024-07-09 15:30] VITALS: BP 131/62
[2024-07-09 16:28] LABS: Glucose - Point of Care 173 mg/dl (70-99)
[2024-07-09] MEDS: NOVOLOG FLEXPEN-LOW RESISTANCE 1 UNITS SC (16:51)
[2024-07-09] MEDS: ROXICODONE 10 MG PO ×2 (16:57→23:04)
[2024-07-09 21:25] LABS: Glucose - Point of Care 108 mg/dl (70-99)
[2024-07-09] MEDS: ZETIA 10 MG PO (21:28)
[2024-07-09] MEDS: MELATONIN 5 MG PO (21:28)
[2024-07-09] MEDS: LIPITOR 80 MG PO (21:28)
[2024-07-09] MEDS: ATIVAN 2 MG PO (21:28)
[2024-07-09 23:20] VITALS: BP 155/67
[2024-07-10 06:00] VITALS: BMI 26.7
[2024-07-10 07:37] VITALS: BP 160/80
[2024-07-10 07:46] LABS: Glucose - Point of Care 117 mg/dl (70-99)
[2024-07-10 08:14] LABS: % Basophils 0.3 % (0-2); % Immature Granulocytes 0.6 % (0-0.5); % Lymphocytes 29.8 % (20.5-51.1); % Monocytes 12.5 % (1.7-9.3); % Neutrophils 49.8 % (42.2-75.2); Absolute Eosinophils 0.5 10^3/uL (0-0.7); Absolute Lymphocytes 2.1 10^3/uL (1.2-3.4); Absolute Monocytes 0.9 10^3/uL (0.1-0.6); Absolute Neutrophils 3.6 10^3/uL (1.4-6.5); Hemoglobin 10.3 g/dL (13.0-18.0); Mean Corp Hgb Conc. 33.2 g/dL (33.0-37.0); Mean Corpuscular Hgb 30.6 pg (27.0-31.0); Mean Platelet Volume 12.2 fL (7.4-10.4); Nucleated Red Blood Cells % 0 % (-); Platelet Count 155 10^3/uL (130-400); Red Blood Cell Count 3.37 10^6/uL (4.70-6.10); Red Cell Dist. Width 15.5 % (11.5-14.5); White Blood Cell Count 7.2 10^3/uL (4.8-10.8)
[2024-07-10 08:43] LABS: Blood Urea Nitrogen 70 mg/dl (9-20); Calcium 8.8 mg/dl (8.4-10.2); Carbon Dioxide 23 mmol/L (22-30); Chloride 97 mmol/L (98-107); Estimated Creatinine Clearance 11 ml/min; Glucose 102 mg/dl (70-99); Potassium 4.3 mmol/L (3.5-5.1); Sodium 135 mmol/L (135-145); eGFR 9.42
[2024-07-10] MEDS: MANNITOL 25% 12.5 GRAMS IV (09:00)
[2024-07-10] MEDS: NOVOLOG FLEXPEN-LOW RESISTANCE SC ×2 (09:36→12:14)
--- NOTE | 2024-07-10 10:27 | W.PN.NEPH.HD ---
Assessment
-
pt seen during HD
vitals stable, UF to bring down to EDW
Tunneled catheter functions well
mild bleeding noted at the insertion site-monitor and change dressing
plan d/c today
Return to [facility] on Saturday
Progress Note - Hemodialysis
-
Date of Service: July 10, 2024
Duration: 30 minutes and 3 hours
Potassium Bath: 3
Calcium Bath: 2.5
Opti-Dialyzer: 160
Ultrafiltration: Other (1-1.5kg)
Blood Flow: 400
Dialysate Flow: 600
Heparin: no
EPO: no
--- NOTE | 2024-07-10 10:33 | CM ---
Addendum entered by Kelly Em 07/10/24 15:26:
Clinicals faxed to [facility] - [phone]
Addendum entered by Kelly Em 07/10/24 12:06:
Met with pt at bedside
Discussed IMM
Reports will transport home
Plan [facility] - Return to [facility] HD
Original Note:
Case management following for discharge planning
Chart reviewed
HD today - for discharge after
Called [facility] - spoke with Marybel
Aware pt for discharge and will return for HD next week - requesting clinical info, last flow sheets and discharge instructions be faxed to [phone]
Accepted by [facility] for HH needs
Plan - [facility] - Return to [facility] for HD
--- NOTE | 2024-07-10 10:51 | W.PN.HOSP.TC ---
Today's Communication/Plan
-
Monitor vital signs
see plan
Discharge today after HD
Time of discharge 38 minutes
Assessment / Plan
Assessment / Plan
#ESRD on HD
-Unclear etiology, possibly hypertensive nephrosclerosis versus diabetic disease; HD on M/W/F
-Complicated by chronic acidemia and bone mineral disease; on Nephro-Michelle and phosphate binding therapy
-There was some issue with his dialysis access, seen by vascular and plan for fistulogram outpatient. Nephrology following. Status post tunneled catheter 07/08. Now back on Eliquis and Plavix
-Vascular surgery assessed access, consulted IR for tunneled catheter 07/08
HD per nephrology
PT/OT now recommending home. education program manager spoke with and they are agreeable with going home. Patient will resume dialysis on Saturday. DC today after HD
#Elevated troponin secondary to nonischemic myocardial injury
#Tachycardia -- sinus with RBBB
-ECG on arrival available to review appeared sinus tachycardia with RBBB, did not see A-fib on strips despite his history
-Suspect that this was all predominantly driven by hemodynamic shifts from dialysis, beta-keny held morning of dialysis
-Troponin elevation was demand driven event from tachycardia, flat trend and resolved chest pain not consistent with ACS
-Since earlier in the admission his heart rate has been normal, no events on telemetry overnight
-Should not hold beta-keny prior to dialysis sessions unless hypotension noted
-Will continue on current beta-keny dose and continue to monitor
COVID + 07/01/2024 however symptoms started before
Now off isolation
Currently without any respiratory symptoms
Continue to monitor
Per patient he has had COVID vaccination in past
#ASCVD (CAD, PAD, Carotid Disease, CVA / TIA)
-Home medications include high intensity statin, Plavix, beta-keny
-No signs of critical ischemia here, suspect troponin elevation was demand driven event as above
#Paroxysmal Atrial Fibrillation
-Home regimen includes metoprolol for rate control and Eliquis for AC
-Did not see any AF or RVR on ECGs from the ED, only saw sinus tachycardia with bundle branch block
Continue Eliquis
#Chronic HFpEF
-Not currently on GDMT with MRA or SGLT2 due to renal function
-Home medications include beta-keny, no first-line agents for HFpEF
-Not on any standing loop diuretics due to ESRD, volume managed by dialysis
-Seems euvolemic on current dialysis regimen
#Essential Hypertension
-Medications include amlodipine, metoprolol
-Blood pressure stable with current meds and dialysis
#Dyslipidemia
-Associated with ASCVD history as above
-Home meds include dual therapy with atorvastatin and Zetia
#Diabetes Mellitus, Type II
-Suspect that this is becoming more well-controlled with ESRD and insulin retention
-Home medications currently include Ozempic; started on ISS with Accu-Cheks here
#Anxiety/Depression/ADHD
-Continue Zoloft and Lorazepam
-Hold methylphenidate
DVT proph: Eliquis
Code Status: Full Code
General: Well Nourished, No Apparent Distress, Comfortable
HEENT: Normocephalic, Atraumatic, Moist Mucous Membranes and tunneled catheter
Respiratory: Clear to Auscultation and Non Labored Respirations; Negative Rales
Cardiac: Regular Rhythm, S1/S2 and Murmur
GI: Soft, Nontender, Nondistended and Normal Bowel Sounds
Musculoskeletal: No Edema
Neuro: AO x 3, Nonfocal/Grossly Intact and Central Nerve's Intact
Anticipated Discharge: Today
Subjective/Interval History
-
Date of Service: July 10, 2024
denies pain
Objective Data
-
Labs:
Laboratory Results
07/10/24
07:31
WBC 7.2
Hgb 10.3 L
Hct 31.0 L
Plt Count 155
Sodium 135
Potassium 4.3
Chloride 97 L
Carbon Dioxide 23
BUN 70 H
Creatinine 6.1 H*
Glucose 102 H
Calcium 8.8
Vital Signs:
Vital Signs
Temp Pulse Resp BP Pulse Ox
97.8 F 79 16 160/80 97
07/10/24 07:37 07/10/24 07:37 07/10/24 07:37 07/10/24 07:37 07/10/24 07:37
I&O
07/09/24 07/10/24 07/11/24
06:59 06:59 06:59
Intake Total 720 / 720 1095 / 1095
Balance 720 / 720 1095 / 1095
--- NOTE | 2024-07-10 10:57 | W.DCSUMMARY ---
Discharge Summary
Discharge Data
Date of Admission: 07/01/24
Date of Discharge: 07/10/24
-
Pending Results: No
Hospital Course
68-year-old male with past medical history of ESRD on hemodialysis, paroxysmal atrial fibrillation, CHF, essential hypertension, hyperlipidemia, diabetes mellitus, anxiety, depression, ADHD came to the hospital initially with tachycardia which was
thought was sinus tachycardia with right bundle branch block. Patient tachycardia improved over time. Patient hospital course was complicated by inability to access his AV graft for hemodialysis. Since patient was on Eliquis and Plavix
interventional radiology recommended to hold prior to putting a tunneled catheter for dialysis. In the meantime patient was monitored in the hospital. Patient was also positive for COVID however he did not had any respiratory symptoms. Eventually
IR was able to put tunneled catheter which was functioning prior to discharge. Patient was also seen by vascular surgery for his graft access recommended patient to follow-up with them outpatient for fistulogram. Initially physical therapy
recommended SNF however patient started to do better and eventually went home with instructions to follow-up with all her physicians outpatient.
Discharge Plan
-
Patient Disposition: Longterm/SNF
Discharge Diagnosis/Procedures: Sinus Tachycardia - beta keny held before dialysis
Elevated Troponin likely secondary to non myocardial infarction related injury
Asymptomatic COVID
LUE AV graft malfunction s/p tunneled HD catheter
Condition: Fair
Diet: As tolerated
Additional Diets: Low potassium, renal diet
Activity: As tolerated
Driving Restrictions: As prior to admission
Blood Work: CBC and BMP next week with primary care provider
Other Services: PT and OT
Specialty Instructions: Weigh Daily- Call MD for wt gain/loss 3 lbs overnight/5 lbs in 1 week
Activity Restrictions/Additional Instructions:
Wound Care Instructions Continue wearing off-loading shoes as prescribed by Weight Guesser.
Referrals:
Megan Frederick CRNP [Specified Professional Personl] - 07/30/24 9:40 am (You have a follow up visit with Dr. Serra's STRUCTURAL RIGGER, Megan Frederick, at the [facility]. Please call with questions)
Placido Lora Jr., DO [Family Provider] - in less than 1 week
Mar Helms CRNP [Specified Professional Personl] - 07/14/24 2:30 pm
Prescriptions:
Continued
melatonin 5 MG tablet
5 mg PO HS
atorvastatin 80 MG tablet
80 mg PO HS
lidocaine-prilocaine 2.5-2.5 % Cream
1 applic TOPICAL MOWEFR
ezetimibe [Zetia] 10 mg Tablet
10 mg PO HS
sertraline 100 mg Tablet
200 mg PO DAILY
clopidogrel [Plavix] 75 mg Tablet
75 mg PO DAILY
Nephro-Michelle 0.8 mg Tablet
1 tab PO MOWEFR
coQ10 (ubiquinol) 200 mg Capsule
200 mg PO DAILY
calcium acetate 667 mg Tablet
667 mg PO TIDPRN PRN (Reason: CKD)
Ozempic 0.25 mg or 0.5 mg (2 mg/3 mL) Pen Injector
0.25 mg SC ONCE
Eliquis 5 mg Tablet
5 mg PO BID Qty: 60 0RF
amlodipine 2.5 mg Tablet
2.5 mg PO BID Qty: 60 2RF
metoprolol succinate 25 mg Tablet Extended Release 24 Hr
25 mg PO DAILY Qty: 30 0RF
acetaminophen 325 mg Tablet
650 mg PO Q4HPRN MDD 3000 mg PRN (Reason: mild pain/fever >100)
albuterol sulfate 90 mcg/actuation Hfa Aerosol Inhaler
2 puff INHALATION R Q4HPRN PRN (Reason: sob)
mometasone 0.1 % Cream
1 applic TOPICAL BIDPRN PRN (Reason: left ear)
zinc sulfate 50 mg zinc (220 mg) Tablet
50 mg PO DAILY
Antacid Extra-Strength 300 mg (750 mg) Tablet,Chewable
2 tab PO Q4HPRN PRN (Reason: heartburn) Qty: 0 0RF
pantoprazole 40 mg Tablet,Delayed Release (Dr/Ec)
40 mg PO DAILY Qty: 0 0RF
lorazepam 1 mg Tablet
1 mg PO DAILY
naloxone [Narcan] 4 mg/actuation [place],Non-Aerosol
1 spray INTRANASAL Q3MPRN PRN (Reason: opioid overdose)
quercetin 500 mg Capsule
500 mg PO DAILY
polyethylene glycol 3350 [HealthyLax] 17 gram powder in packet
17 g PO DAILYPRN PRN (Reason: constipation)
sennosides-docusate sodium [Stool Softener-Laxative] 8.6-50 mg tablet
1 tab PO BID
lorazepam 1 MG tablet
2 mg PO HS
oxycodone 10 mg tablet
10 mg PO BIDPRN PRN (Reason: severe pain)
guaifenesin 600 mg tablet extended release 12hr
600 mg PO Q12H
methylphenidate HCl 10 mg tablet
30 mg PO DAILY
Discharge Orders:
Discharge Patient (As Directed); Ordered 07/10/24
Ordered By: Deric Shah
Discharge Date and Time
Discharge Date/Time: 07/10/24 15:14
Print Language: SINHALA
[2024-07-10 11:31] LABS: Glucose - Point of Care 114 mg/dl (70-99)
[2024-07-10] MEDS: HEPARIN 4300 UNITS INTRACATH (11:44)
[2024-07-10] MEDS: MUCINEX 600 MG PO (12:15)
[2024-07-10] MEDS: ZOLOFT 200 MG PO (12:15)
[2024-07-10] MEDS: SENOKOT-S 1 TABLET PO (12:15)
[2024-07-10] MEDS: ATIVAN 1 MG PO (12:15)
[2024-07-10] MEDS: TOPROL XL 25 MG PO (12:16)
[2024-07-10] MEDS: NORVASC 2.5 MG PO (12:16)
[2024-07-10] MEDS: PHOSLO 667 MG PO ×2 (12:16→12:23)
[2024-07-10] MEDS: PLAVIX 75 MG PO (12:16)
[2024-07-10] MEDS: PROTONIX 40 MG PO (12:16)
[2024-07-10] MEDS: ELIQUIS 5 MG PO (12:17)
[2024-07-10] MEDS: NEPHROCAP 1 CAPSULE PO (12:18)
[2024-07-10 14:16] VITALS: BP 125/60
== END 2024-07-10 15:14 | disposition home health service (06) | DRG 177 ==
LOC: 3 WEST ACU 13:16
PROVIDERS: Nurse Practitioner Family; Physician Assistant Medical; Radiology Diagnostic Radiology; Radiology Vascular & Interventional Radiology; Specialist; Student in an Organized Health Care Education/Training Program; ADMITTING PHYSICIAN Internal Medicine; ATTENDING PHYSICIAN Internal Medicine; CONSULT PHYSICIAN Nuclear Medicine Nuclear Cardiology; CONSULT PHYSICIAN Psychiatry & Neurology Psychiatry; CONSULT PHYSICIAN Specialist; CONSULT PHYSICIAN Surgery Vascular Surgery; EMERGENCY PHYSICIAN Emergency Medicine; FAMILY PHYSICIAN Family Medicine
PROC: 02H633Z Insertion of Infusion Device into Right Atrium, Percutaneous Approach (ICD-10-PCS; 2024-07-04)
PROC: 05JY3ZZ Inspection of Upper Vein, Percutaneous Approach (ICD-10-PCS; 2024-07-04)
PROC: 5A1D70Z Performance of Urinary Filtration, Intermittent, Less than 6 Hours Per Day (ICD-10-PCS; 2024-07-04)
PROC: 06H033Z Insertion of Infusion Device into Inferior Vena Cava, Percutaneous Approach (ICD-10-PCS; 2024-07-08)
PROC: 0JH63XZ Insertion of Tunneled Vascular Access Device into Chest Subcutaneous Tissue and Fascia, Percutaneous Approach (ICD-10-PCS; 2024-07-08)
DX: U07.1 COVID-19 (principal); N18.6 End stage renal disease; I5A Non-ischemic myocardial injury (non-traumatic); I48.3 Typical atrial flutter; N25.81 Secondary hyperparathyroidism of renal origin; I50.32 Chronic diastolic (congestive) heart failure; E87.20 Acidosis, unspecified; T82.898A Other specified complication of vascular prosthetic devices, implants and grafts, initial encounter; L97.419 Non-pressure chronic ulcer of right heel and midfoot with unspecified severity; I13.0 Hypertensive heart and chronic kidney disease with heart failure and stage 1 through stage 4 chronic kidney disease, or unspecified chronic kidney disease; E11.22 Type 2 diabetes mellitus with diabetic chronic kidney disease; E11.42 Type 2 diabetes mellitus with diabetic polyneuropathy; E11.51 Type 2 diabetes mellitus with diabetic peripheral angiopathy without gangrene; D63.1 Anemia in chronic kidney disease; E78.00 Pure hypercholesterolemia, unspecified; I25.10 Atherosclerotic heart disease of native coronary artery without angina pectoris; I48.0 Paroxysmal atrial fibrillation; I27.20 Pulmonary hypertension, unspecified; F32.A Depression, unspecified; F41.9 Anxiety disorder, unspecified; F90.9 Attention-deficit hyperactivity disorder, unspecified type; N40.0 Benign prostatic hyperplasia without lower urinary tract symptoms; I45.10 Unspecified right bundle-branch block; E83.39 Other disorders of phosphorus metabolism; E11.621 Type 2 diabetes mellitus with foot ulcer; E87.5 Hyperkalemia; G47.33 Obstructive sleep apnea (adult) (pediatric); I44.1 Atrioventricular block, second degree; M48.061 Spinal stenosis, lumbar region without neurogenic claudication; I25.2 Old myocardial infarction; Z95.820 Peripheral vascular angioplasty status with implants and grafts; Z87.891 Personal history of nicotine dependence; Z88.5 Allergy status to narcotic agent; Z79.02 Long term (current) use of antithrombotics/antiplatelets; Z79.01 Long term (current) use of anticoagulants; Z79.85 Long-term (current) use of injectable non-insulin antidiabetic drugs; Z99.2 Dependence on renal dialysis; Z96.653 Presence of artificial knee joint, bilateral; Z95.5 Presence of coronary angioplasty implant and graft; Z95.1 Presence of aortocoronary bypass graft; Z91.041 Radiographic dye allergy status; Z91.040 Latex allergy status; Z86.73 Personal history of transient ischemic attack (TIA), and cerebral infarction without residual deficits; Y83.2 Surgical operation with anastomosis, bypass or graft as the cause of abnormal reaction of the patient, or of later complication, without mention of misadventure at the time of the procedure
CPT/HCPCS: 36415; 36556; 36558; 76937; 77001; 80048; 80053; 82962; 84484; 85025; 85027; 85730; 86704; 86706; 86708; 86803; 87070; 87340; 87811; 93005; 93306; 93990; 96361; 96374; 97110; 97116; 97162; 97166; 97530; 97535; 99152; 99153; 99285; C1750; C1752; G0257; P9047

== ENCOUNTER → 2024-07-20 12:11 | Outpatient (REF) | payer MEDICARE, OTHER, SELFPAY ==
--- NOTE | 2024-07-20 14:11 | PN.IRAD.UPD ---
Update Note - IRAD
- -
PATIENT CAME TO DEPARTMENT AFTER DIALYSIS COMPLAINING OF BLEEDING AT THE SITE OF THE LEFT TUNNELED CATHETER. SMALL AMOUNT OF BLOOD NOTED ON DRESSING. REDRESSED, PLACED QUICKCLOT, GAUZE, AND TEGADERM. NO ACTIVE BLEEDING AT ALL AND SITE LOOKED
NORMAL. AP/DH
== END ==
LOC: RADI 12:11
PROVIDERS: ATTENDING PHYSICIAN Specialist; FAMILY PHYSICIAN Family Medicine
DX: T82.838A Hemorrhage due to vascular prosthetic devices, implants and grafts, initial encounter (principal); Y82.8 Other medical devices associated with adverse incidents; N18.6 End stage renal disease

== ENCOUNTER 2024-07-21 15:44 | Emergency (ER) | payer MEDICARE, OTHER, SELFPAY ==
[2024-07-21 15:47] VITALS: BP 155/67
[2024-07-21 17:32] VITALS: BP 145/73
--- NOTE | 2024-07-21 19:57 | EDRN ---
Float: Discharged pt after cleared by CHANGE MANAGEMENT MANAGER and dressing placed.
--- NOTE | 2024-07-21 19:59 | ED.GENMED ---
History of Present Illness
General
Chief Complaint: Vascular Access Problem
Source: patient and spouse
Exam Limitations: none
Time Seen by Provider: 07/21/24 18:17
Nursing documentation reviewed up to this point in time: agreed with
History of Present Illness
History of Present Illness:
Patient with dialysis catheter left ant. chest. He was sent to IR yesterday after dialysis for eval of bleeding at catheter site. Topical solution was applied according to spouse and bleeding stopped. Today he was seen by VN and she noted blood
on dressing. Sent him back to ED for eval.
Past History
Past History
ED Past Medical History: Arrthythmia (PAF), CAD, Cancer (CML), COPD, CVA, HTN, Hypercholesterolemia, NIDDM, [place], Renal failure (on dialysis), Other (Peripheral artery disease, left femoropopliteal bypass), Other (subdural hematoma) and Other (R foot
ulcer; FINESSE; obesity)
ED Past Surgical History: Cardiac (left fempop bypass) and Other (L femoral endarterectomy, popliteal angioplasty, dialysis graft left upper arm)
Social History
Tobacco: Smoker
Alcohol: None
Drug: Marijuana
Personal:
Living: with family
Employment: Disabled
Family History
Family History: Diabetes and Other (reviewed and non-contributory)
Review of Systems
Review of Systems
Allergies reviewed?: Yes
All Other Systems: ROS reviewed and negative except as documented in HPI and ROS
Constitutional: Reports no symptoms
EENT: Reports no symptoms
Respiratory: Reports no symptoms
Cardiac: Reports no symptoms
ABD/GI: Reports no symptoms
Musculoskeletal: Reports no symptoms
Skin: Reports other (bleeding from around dialysis catheter site)
Neurological: Reports no symptoms
Psychiatric: Reports no symptoms
Phy Exam
General Physical Exam
General Presentation: well appearing and no apparent distress
General age: appears stated age
General Skin: warm and dry
General Habitus: normal
General Mental: alert
Musculoskeletal Exam
Musculoskeletal Exam: full ROM
Skin Exam
Skin Exam: normal color, warm/dry, no rash and other (Dressing removed. No active bleeding at catheter site. He was observed for 45 minutes. No bleeding noted.)
Psychiatric Exam
Psychiatric Exam: normal mood/affect
Course
Vital Signs
Initial and Last Documented VS:
Initial Vital Signs
Temp Pulse Resp BP Pulse Ox
98.4 F 72 20 155/67 100
07/21/24 15:47 07/21/24 15:47 07/21/24 15:47 07/21/24 15:47 07/21/24 15:47
Last Documented Vital Signs
Temp Pulse Resp BP Pulse Ox
98.4 F 74 16 145/73 98
07/21/24 15:47 07/21/24 17:32 07/21/24 17:32 07/21/24 17:32 07/21/24 17:32
*Critical Care Note
Total Time (30-74mins, 75-104mins- exclusive of procedures): Not Applicable
ED Attending Note
-
Portions of this chart may have been created with voice recognition software.� Occasional wrong word or��sound alike� substitutions may have occurred due to the inherent limitations of voice recognition software.
Discharge Plan
Departure
Patient Disposition: Home (Routine Discharge)
Date of Disposition: 07/21/24
Time of Disposition: 19:18
Patient with high blood pressure during this ER visit?: No
Condition: Good
Covid-19: Not Applicable
Discharge Problem:
Port a cath check
Instructions: Peripherally-Inserted Central Catheter (DC)
Prescriptions:
No Action
melatonin 5 MG tablet
5 mg PO HS
atorvastatin 80 MG tablet
80 mg PO HS
lidocaine-prilocaine 2.5-2.5 % Cream
1 applic TOPICAL MOWEFR
ezetimibe [Zetia] 10 mg Tablet
10 mg PO HS
sertraline 100 mg Tablet
200 mg PO DAILY
clopidogrel [Plavix] 75 mg Tablet
75 mg PO DAILY
Nephro-Michelle 0.8 mg Tablet
1 tab PO MOWEFR
coQ10 (ubiquinol) 200 mg Capsule
200 mg PO DAILY
calcium acetate 667 mg Tablet
667 mg PO TIDPRN PRN (Reason: CKD)
Ozempic 0.25 mg or 0.5 mg (2 mg/3 mL) Pen Injector
0.25 mg SC ONCE
Eliquis 5 mg Tablet
5 mg PO BID Qty: 60 0RF
amlodipine 2.5 mg Tablet
2.5 mg PO BID Qty: 60 2RF
metoprolol succinate 25 mg Tablet Extended Release 24 Hr
25 mg PO DAILY Qty: 30 0RF
acetaminophen 325 mg Tablet
650 mg PO Q4HPRN MDD 3000 mg PRN (Reason: mild pain/fever >100)
albuterol sulfate 90 mcg/actuation Hfa Aerosol Inhaler
2 puff INHALATION R Q4HPRN PRN (Reason: sob)
mometasone 0.1 % Cream
1 applic TOPICAL BIDPRN PRN (Reason: left ear)
zinc sulfate 50 mg zinc (220 mg) Tablet
50 mg PO DAILY
Antacid Extra-Strength 300 mg (750 mg) Tablet,Chewable
2 tab PO Q4HPRN PRN (Reason: heartburn) Qty: 0 0RF
pantoprazole 40 mg Tablet,Delayed Release (Dr/Ec)
40 mg PO DAILY Qty: 0 0RF
lorazepam 1 mg Tablet
1 mg PO DAILY
naloxone [Narcan] 4 mg/actuation [place],Non-Aerosol
1 spray INTRANASAL Q3MPRN PRN (Reason: opioid overdose)
quercetin 500 mg Capsule
500 mg PO DAILY
polyethylene glycol 3350 [HealthyLax] 17 gram powder in packet
17 g PO DAILYPRN PRN (Reason: constipation)
sennosides-docusate sodium [Stool Softener-Laxative] 8.6-50 mg tablet
1 tab PO BID
lorazepam 1 MG tablet
2 mg PO HS
oxycodone 10 mg tablet
10 mg PO BIDPRN PRN (Reason: severe pain)
guaifenesin 600 mg tablet extended release 12hr
600 mg PO Q12H
methylphenidate HCl 10 mg tablet
30 mg PO DAILY
Referrals:
Placido Lora Jr., DO [Family Provider] -
Activity Restrictions/Additional Instructions:
Follow up with dialysis in the AM
Interventions
Interventions:
*Risk Screen - Suicide Last Done: 07/21/24 17:11
*General Assessment Last Done: 07/21/24 17:11
*Neglect/Abuse Screening Last Done: 07/21/24 17:11
*ED COVID-19 Vaccine History Last Done: 07/21/24 17:11
*Nursing Disposition Last Done: 07/21/24 19:57
Discharge Date and Time
Discharge Date/Time: 07/21/24 19:57
Print Language: ICELANDIC
== END 2024-07-21 19:57 | disposition home or self-care (01) ==
LOC: EMR 15:44
PROVIDERS: EMERGENCY PHYSICIAN Emergency Medicine; FAMILY PHYSICIAN Family Medicine
DX: T82.838A Hemorrhage due to vascular prosthetic devices, implants and grafts, initial encounter (principal); Y83.8 Other surgical procedures as the cause of abnormal reaction of the patient, or of later complication, without mention of misadventure at the time of the procedure; E11.22 Type 2 diabetes mellitus with diabetic chronic kidney disease; E11.51 Type 2 diabetes mellitus with diabetic peripheral angiopathy without gangrene; E66.9 Obesity, unspecified; E78.00 Pure hypercholesterolemia, unspecified; G47.33 Obstructive sleep apnea (adult) (pediatric); I12.0 Hypertensive chronic kidney disease with stage 5 chronic kidney disease or end stage renal disease; I25.10 Atherosclerotic heart disease of native coronary artery without angina pectoris; I48.0 Paroxysmal atrial fibrillation; J44.9 Chronic obstructive pulmonary disease, unspecified; F17.200 Nicotine dependence, unspecified, uncomplicated; I25.2 Old myocardial infarction; Z85.6 Personal history of leukemia; Z86.73 Personal history of transient ischemic attack (TIA), and cerebral infarction without residual deficits; Z99.2 Dependence on renal dialysis
CPT/HCPCS: 99282

== ENCOUNTER 2024-07-30 10:45 | Day surgery (SDC) | payer MEDICARE, OTHER, SELFPAY ==
[2024-07-30] VITALS (8 sets, daily range): BP systolic 142–158; BP diastolic 61–72; BMI 27.5
[2024-07-30 11:35] LABS: Glucose - Point of Care 88 mg/dl (70-99)
[2024-07-30 11:43] LABS: Hematocrit 34.7 % (39.0-52.0); Hemoglobin 11.6 g/dL (13.0-18.0); Mean Corp Hgb Conc. 33.4 g/dL (33.0-37.0); Mean Corpuscular Hgb 31.8 pg (27.0-31.0); Mean Corpuscular Volume 95.1 fL (80.0-94.0); Mean Platelet Volume 11.5 fL (7.4-10.4); Platelet Count 190 10^3/uL (130-400); Red Blood Cell Count 3.65 10^6/uL (4.70-6.10); White Blood Cell Count 7.7 10^3/uL (4.8-10.8)
[2024-07-30 11:46] LABS: INR 1.19; PT 15.2 Sec (11.4-14.6)
[2024-07-30 11:47] LABS: APTT 33.3 Sec (23.4-35.0)
[2024-07-30] MEDS: NSS 500 IV (11:55)
[2024-07-30 12:06] LABS: Blood Urea Nitrogen 28 mg/dl (9-20); Calcium 9.7 mg/dl (8.4-10.2); Carbon Dioxide 29 mmol/L (22-30); Chloride 99 mmol/L (98-107); Estimated Creatinine Clearance 15 ml/min; Glucose 93 mg/dl (70-99); Potassium 5.3 mmol/L (3.5-5.1); Sodium 143 mmol/L (135-145); eGFR 13.57
[2024-07-30] MEDS: SOLU-CORTEF 200 MG IV (12:06)
[2024-07-30] MEDS: BENADRYL 50 MG IV (12:06)
--- NOTE | 2024-07-30 12:45 | W.SUR.PREOP ---
Pre-Operative Surgical Note
-
I have examined this patient prior to the performance of the scheduled procedure.
The patient's condition is unchanged from the time of the current History and
Physical and the patient is able to undergo the scheduled procedure.
--- NOTE | 2024-07-30 14:05 | W.SUR.POST ---
Surgical Immediate Post Op
Note
Pre Op Diagnosis: ESRD
Post Op Diagnosis: ESRD
Procedure Performed: LUE fistulagram, central venogram, balloon angioplasty central vein stenosis
Primary Surgeon: Demetrio
Anesthesia: Local and sedation
Estimated Blood Loss: 2cc
Fluids: see anesthesia flow sheet
Drains/Shunts: none
Specimens/Cultures: none
Doppler/Duplex/Angio (Y/N): Y
Complications: none
Operative Findings: +thrill
[2024-07-30 14:33] LABS: Glucose - Point of Care 115 mg/dl (70-99)
--- NOTE | 2024-07-30 15:11 | OR.RPT ---
Operative Report
Operative Report
PROCEDURE DATE: 07/30/2024
Preoperative diagnosis:
1. End-stage renal disease on hemodialysis.
2. Inability to successfully cannulate left upper extremity AV graft, concern for inadequate flow.
Postoperative diagnosis: Same
Procedure:
1. Duplex assisted cannulation of left upper extremity AV graft.
2. Left upper extremity fistulogram and central venogram.
3. Balloon angioplasty of central venous stenosis with 10 mm angioplasty balloon.
4. Supervision and interpretation
Surgeon: Demetrio
Tariff Compiling Clerk: None
Complications: None
Anesthesia: Local, sedation
Fluoroscopy:
2.5 min
22 mGy
2.95 Gy.cm2
Indications for procedure:
Inability to cannulate left upper extremity arteriovenous graft despite adequate flow on ultrasound and prior stenting of outflow vein stenoses to assist with maturation of AV graft. Therefore brought for another attempted fistulogram to assess.
Risk/benefits/alternatives also discussed. Patient understood all and wished to proceed.
Description of procedure:
Patient was identified, brought to the operating room. Placed on the table in the supine position. After the adequate administration of anesthesia, the patient was prepped and draped in the standard surgical fashion. A standard preoperative
timeout was undertaken and everybody was in agreement with the plan.
The left upper extremity arteriovenous graft was punctured under direct duplex ultrasound guidance with a micropuncture kit and a central facing direction. A 5 [place] sheath was then advanced over a 0.035 inch wire. Fistulogram and central
venogram was performed. This demonstrated widely patent AV graft beyond the sheath. The 2 outflow vein stents were widely patent with no recurrent stenosis. Central venography demonstrated initially what appeared to be patent central veins, but
there appeared to be a possible stenosis in the subclavian vein. At this point I then used a 0.035 inch wire and advanced it to that region. Of note the wire got coiled upright in that vicinity and then was able to straighten it and passed it
through. I passed the catheter (5 [place] glide catheter) to just short of that stenosis and then performed a venogram through the catheter. This did demonstrate an area of focal stenosis in the subclavian vein. I had crossed it already with the
wire. Therefore I now exchanged for a 6 [place] sheath. I then performed balloon angioplasty with a 10 mm x 4 cm angioplasty balloon of that segment. Completion angiogram demonstrated excellent result with minimal residual stenosis. At this point
I compress the graft/outflow vein and obtained a fistulogram to allow reflux across the arterial anastomosis. This demonstrated widely patent arterial anastomosis and proximal segment of the graft with no stenosis. At this point I felt that there
is no other stenosis in the graft or anything else that would result in flow limitation here. In addition I assessed the depth of the graft on ultrasound and noted that it was less than 1 cm depth throughout. Therefore is very satisfied. I
withdrew the catheters and wires. A 4-0 Monocryl pursestring stitch was placed around the sheath entry site and this was tied down as the sheath was withdrawn. Manual pressure was also applied to the puncture site. Hemostasis was fully achieved.
The patient tolerated the procedure well.
--- NOTE | 2024-07-30 15:15 | SUR.PHASEI ---
1500: Pt AAOx3 and was informed that surgeon was stuck with a needle used during sx and verbal consent was obtained from patient to draw labs to check for HIV and Hepatitis..
[2024-07-30 18:29] LABS: Hepatitis B Surface Antigen Negative (Negative)
[2024-07-30 18:47] LABS: Hepatitis B Surface Antibody Positive; Hepatitis C Antibody Negative (Negative)
[2024-07-31 13:12] LABS: HIV Combo Negative (Negative)
== END 2024-07-30 16:10 | disposition home or self-care (01) ==
LOC: CATH 10:45
PROVIDERS: Nurse Practitioner Acute Care; ATTENDING PHYSICIAN Surgery Vascular Surgery; FAMILY PHYSICIAN Family Medicine; OTHER PHYSICIAN Internal Medicine Cardiovascular Disease
DX: T82.858A Stenosis of other vascular prosthetic devices, implants and grafts, initial encounter (principal); Y83.2 Surgical operation with anastomosis, bypass or graft as the cause of abnormal reaction of the patient, or of later complication, without mention of misadventure at the time of the procedure; I12.0 Hypertensive chronic kidney disease with stage 5 chronic kidney disease or end stage renal disease; E11.22 Type 2 diabetes mellitus with diabetic chronic kidney disease; N18.6 End stage renal disease; Z99.2 Dependence on renal dialysis; I25.10 Atherosclerotic heart disease of native coronary artery without angina pectoris; Z95.5 Presence of coronary angioplasty implant and graft; Z95.1 Presence of aortocoronary bypass graft; E78.5 Hyperlipidemia, unspecified; K21.9 Gastro-esophageal reflux disease without esophagitis; K76.0 Fatty (change of) liver, not elsewhere classified; Z87.891 Personal history of nicotine dependence; Z79.02 Long term (current) use of antithrombotics/antiplatelets; Z79.01 Long term (current) use of anticoagulants; Z79.85 Long-term (current) use of injectable non-insulin antidiabetic drugs
CPT/HCPCS: 36901; 36907; C1725; C1894; C1769; 76937; 80048; 82962; 85027; 85610; 85730; 86706; 86803; 86850; 86900; 86901; 87340; 87389; Q9967

== ENCOUNTER → 2024-08-06 10:59 | Outpatient (REF) | payer MEDICARE, OTHER, SELFPAY | LOC: DHVS 10:59 | PROVIDERS: ATTENDING PHYSICIAN Surgery Vascular Surgery; FAMILY PHYSICIAN Family Medicine | DX: I73.9 Peripheral vascular disease, unspecified (principal) | CPT/HCPCS: 93922; 93925 ==

== ENCOUNTER → 2024-08-20 13:49 | Outpatient (REF) | payer MEDICARE, OTHER, SELFPAY | LOC: RAD 13:49 | PROVIDERS: ATTENDING PHYSICIAN Surgery Vascular Surgery; FAMILY PHYSICIAN Family Medicine | DX: T82.590A Other mechanical complication of surgically created arteriovenous fistula, initial encounter (principal); N18.5 Chronic kidney disease, stage 5 | CPT/HCPCS: 93990 ==

== ENCOUNTER 2024-08-21 05:45 | Emergency (ER) | payer MEDICARE, OTHER, SELFPAY ==
[2024-08-21 05:51] VITALS: BP 157/87
--- NOTE | 2024-08-21 06:52 | ED.GENMED ---
History of Present Illness
General
Chief Complaint: Catheter/Tube Problem
Time Seen by Provider: 08/21/24 06:52
History of Present Illness
History of Present Illness:
HPI: Patient presents due to bleeding at the dialysis catheter site. He had large amount of blood on his dressing. He used a styptic pencil (or at least the liquid form of it) to control the bleeding which has stopped it. He also has ongoing
concerns of discomfort to the left upper extremity and had problems with his fistula in the past.
EXAM:
GENERAL: Well appearing but appears somewhat chronically weak
HEENT: Moist oral mucosa
CHEST: There is a permacath in the left anterior chest wall with no active bleeding
NEUROLOGIC: Excellent strength all extremities, no coordination deficits
PSYCHIATRIC: Appropriate mental status, normal insight and judgement
EXTREMITIES: Some decreased active range of motion left upper extremity due to pain/chronic issues with the fistula
SKIN: No rash, no lesions
TIME OF INITIAL ENCOUNTER: 7:40 AM
NUMBER AND COMPLEXITY OF PROBLEMS ADDRESSED AT THE ENCOUNTER
� Chronic conditions affecting care: CKD on dialysis, has had hemorrhagic CVA/subdural in 2019, A-fib, CAD, high blood pressure, diabetes
� Acute Exacerbation and/or Progression of Chronic Illness:
� Differential Diagnosis includes: Bleeding from dialysis catheter
AMOUNT AND/OR COMPLEXITY OF DATA TO BE REVIEWED AND ANALYZED
� I performed an independent evaluation of and my interpretation is:
EKG:
CT:
X-rays:
Laboratory Studies: None needed
Other:
� Review of other/old records: The patient had duplex assisted cannulation of the left upper extremity AV graft with balloon angioplasty of central venous stenosis on 07/30/2024
� Clinical information was obtained by an independent historian: None needed but I also spoke to Dr. Anderson
� Prescriptions/Medications Considered but not given:
� Further testing considered but not performed:
RISK OF COMPLICATIONS AND/OR MORBIDITY OR MORTALITY OF PATIENT MANAGEMENT
� Social determinants of health affecting care: Lives at home, drove himself here
� Discussion with other providers: I notified Dr. Anderson of the patient's presentation here who agrees the patient should back to his site for dialysis
� Escalation of care including admission/observation vs risk of discharge considered: There is no active bleeding after I removed the old dressing, but I did place a new Surgicel pressure dressing soaked with TXA.
Past History
Past History
ED Past Medical History: Arrthythmia (PAF), CAD, Cancer (CML), COPD, CVA, HTN, Hypercholesterolemia, NIDDM, [place], Renal failure (on dialysis), Other (Peripheral artery disease, left femoropopliteal bypass), Other (subdural hematoma) and Other (R foot
ulcer; FINESSE; obesity)
ED Past Surgical History: Cardiac (left fempop bypass) and Other (L femoral endarterectomy, popliteal angioplasty, dialysis graft left upper arm)
Social History
Tobacco: Smoker
Alcohol: None
Drug: Marijuana
Personal:
Living: with family
Employment: Disabled
Family History
Family History: Diabetes and Other (reviewed and non-contributory)
Phy Exam
Physical Exam
Physical Exam:
See HPI
Course
Orders/Labs/Results
Orders:
Orders
08/21/24 07:47
Tranexamic Acid 1,000 mg .ROUTE .STK-MED ONE
Vital Signs
Initial and Last Documented VS:
Initial Vital Signs
Temp Pulse Resp BP Pulse Ox
98.3 F 89 20 157/87 100
08/21/24 05:51 08/21/24 05:51 08/21/24 05:51 08/21/24 05:51 08/21/24 05:51
Last Documented Vital Signs
Temp Pulse Resp BP Pulse Ox
98.3 F 89 20 157/87 100
08/21/24 05:51 08/21/24 05:51 08/21/24 05:51 08/21/24 05:51 08/21/24 05:51
*Critical Care Note
Total Time (30-74mins, 75-104mins- exclusive of procedures): Not Applicable
ED Attending Note
-
Portions of this chart may have been created with voice recognition software.� Occasional wrong word or��sound alike� substitutions may have occurred due to the inherent limitations of voice recognition software.
Discharge Plan
Departure
Prescriptions:
No Action
melatonin 5 MG tablet
5 mg PO HS
atorvastatin 80 MG tablet
80 mg PO HS
lidocaine-prilocaine 2.5-2.5 % Cream
1 applic TOPICAL MOWEFR PRN (Reason: fistula before dialysis)
ezetimibe [Zetia] 10 mg Tablet
10 mg PO HS
sertraline 100 mg Tablet
200 mg PO DAILY
clopidogrel [Plavix] 75 mg Tablet
75 mg PO DAILY
Nephro-Michelle 0.8 mg Tablet
1 tab PO MOWEFR
coQ10 (ubiquinol) 200 mg Capsule
200 mg PO DAILY
calcium acetate 667 mg Tablet
1,334 mg PO AC
Ozempic 0.25 mg or 0.5 mg (2 mg/3 mL) Pen Injector
0.25 mg SC GRIMM
Eliquis 5 mg Tablet
5 mg PO BID Qty: 60 0RF
amlodipine 2.5 mg Tablet
2.5 mg PO BID Qty: 60 2RF
metoprolol succinate 25 mg Tablet Extended Release 24 Hr
25 mg PO DAILY Qty: 30 0RF
acetaminophen 325 mg Tablet
650 mg PO Q4HPRN MDD 3000 mg PRN (Reason: mild pain/fever >100)
albuterol sulfate 90 mcg/actuation Hfa Aerosol Inhaler
2 puff INHALATION R Q4HPRN PRN (Reason: sob)
mometasone 0.1 % Cream
1 applic TOPICAL BIDPRN PRN (Reason: left ear)
zinc sulfate 50 mg zinc (220 mg) Tablet
50 mg PO DAILY
Antacid Extra-Strength 300 mg (750 mg) Tablet,Chewable
2 tab PO Q4HPRN PRN (Reason: heartburn) Qty: 0 0RF
lorazepam 1 mg Tablet
1 mg PO QPM
naloxone [Narcan] 4 mg/actuation [place],Non-Aerosol
1 spray INTRANASAL Q3MPRN PRN (Reason: opioid overdose)
quercetin 500 mg Capsule
500 mg PO DAILY
lorazepam 1 MG tablet
2 mg PO HS
oxycodone 10 mg tablet
10 mg PO TID PRN (Reason: pain)
guaifenesin 600 mg tablet extended release 12hr
600 mg PO Q12H PRN (Reason: Cough)
methylphenidate HCl 10 mg tablet
30 mg PO DAILY
pantoprazole 40 mg tablet,delayed release (DR/EC)
40 mg PO DAILY PRN (Reason: gerd)
Referrals:
Placido Lora Jr., DO [Family Provider] -
Interventions
Interventions:
*Risk Screen - Suicide Last Done: 08/21/24 05:45
*General Assessment Last Done: 08/21/24 05:51
*Neglect/Abuse Screening Last Done: 08/21/24 05:45
ED- Fall Risk Assessment Last Done: 08/21/24 05:51
*ED COVID-19 Vaccine History Last Done: 08/21/24 05:51
AB-Hrfptp-Wtcqxqwfun Assessment Last Done: 08/21/24 06:28
ED-Male Genitourinary Assessment Last Done: 08/21/24 06:28
Discharge Date and Time
Print Language: SOUTH SUDANESE
[2024-08-21 07:22] VITALS: BMI 28.7
[2024-08-21 08:13] VITALS: BP 160/74
== END 2024-08-21 08:14 | disposition home or self-care (01) ==
LOC: EMR 05:45
PROVIDERS: EMERGENCY PHYSICIAN Emergency Medicine; FAMILY PHYSICIAN Family Medicine
DX: T82.838A Hemorrhage due to vascular prosthetic devices, implants and grafts, initial encounter (principal); Y84.1 Kidney dialysis as the cause of abnormal reaction of the patient, or of later complication, without mention of misadventure at the time of the procedure; I12.0 Hypertensive chronic kidney disease with stage 5 chronic kidney disease or end stage renal disease; N18.6 End stage renal disease; Z99.2 Dependence on renal dialysis; I48.0 Paroxysmal atrial fibrillation; I25.10 Atherosclerotic heart disease of native coronary artery without angina pectoris; G47.33 Obstructive sleep apnea (adult) (pediatric); E66.9 Obesity, unspecified; E78.00 Pure hypercholesterolemia, unspecified; E11.51 Type 2 diabetes mellitus with diabetic peripheral angiopathy without gangrene; J44.9 Chronic obstructive pulmonary disease, unspecified; F17.200 Nicotine dependence, unspecified, uncomplicated; I25.2 Old myocardial infarction; Z86.73 Personal history of transient ischemic attack (TIA), and cerebral infarction without residual deficits; Z79.01 Long term (current) use of anticoagulants; Z85.6 Personal history of leukemia; Z88.5 Allergy status to narcotic agent; Z91.041 Radiographic dye allergy status; Z91.040 Latex allergy status
CPT/HCPCS: 99282

== ENCOUNTER → 2024-09-11 13:54 | Outpatient (REF) | payer MEDICARE, OTHER, SELFPAY | LOC: RAD 13:54 | PROVIDERS: ATTENDING PHYSICIAN Surgery Vascular Surgery; FAMILY PHYSICIAN Family Medicine | DX: N18.6 End stage renal disease (principal); Z01.818 Encounter for other preprocedural examination | CPT/HCPCS: 93985 ==

== ENCOUNTER 2024-09-24 06:07 | Day surgery (SDC) | payer MEDICARE, OTHER, SELFPAY ==
--- NOTE | 2024-09-17 12:16 | PTCARENOTE ---
Preop EKG scanned by Ladonna, dated 08/11/24, showing anteroseptal infarct. See EKG scanned from 12/09/23 showing prior history.
[2024-09-24] VITALS (10 sets, daily range): BP systolic 115–173; BP diastolic 69–105; BMI 29.4
[2024-09-24] MEDS: BACTROBAN NASAL 1 GRAM NASAL (06:43)
[2024-09-24] MEDS: PERIDEX 0.12% ORAL RINSE 15 ML PO (06:43)
[2024-09-24 07:02] LABS: Glucose - Point of Care 89 mg/dl (70-99)
[2024-09-24 07:09] LABS: Hematocrit 28.5 % (39.0-52.0); Hemoglobin 9.6 g/dL (13.0-18.0); Mean Corp Hgb Conc. 33.7 g/dL (33.0-37.0); Mean Corpuscular Hgb 32.8 pg (27.0-31.0); Mean Corpuscular Volume 97.3 fL (80.0-94.0); Mean Platelet Volume 10.8 fL (7.4-10.4); Platelet Count 247 10^3/uL (130-400); Red Blood Cell Count 2.93 10^6/uL (4.70-6.10); Red Cell Dist. Width 14.8 % (11.5-14.5); White Blood Cell Count 11.1 10^3/uL (4.8-10.8)
[2024-09-24 07:20] LABS: INR 1.15; PT 14.8 Sec (11.4-14.6)
[2024-09-24 07:28] LABS: Blood Urea Nitrogen 48 mg/dl (9-20); Calcium 8.7 mg/dl (8.4-10.2); Carbon Dioxide 29 mmol/L (22-30); Chloride 97 mmol/L (98-107); Estimated Creatinine Clearance 15 ml/min; Glucose 107 mg/dl (70-99); Potassium 4.2 mmol/L (3.5-5.1); Sodium 139 mmol/L (135-145); eGFR 14.24
--- NOTE | 2024-09-24 09:48 | W.SUR.POST ---
Surgical Immediate Post Op
Note
Pre Op Diagnosis: ESRD
Post Op Diagnosis: ESRD
Procedure Performed: Right single-stage brachiobasilic AV fistula creation, ligation of left upper extremity AV fistula
Primary Surgeon: Fantasma Atkinson MD
assistant hall director: MARIYA Felipe
Anesthesia: GETA
Estimated Blood Loss: 5 mL
Fluids: See anesthesia flowsheet
Drains/Shunts: N/A
Specimens/Cultures: N/A
Doppler/Duplex/Angio (Y/N): Y
Complications: None
Operative Findings: Positive thrill in AV fistula graft on right upper extremity
[2024-09-24 10:12] LABS: Glucose - Point of Care 131 mg/dl (70-99)
--- NOTE | 2024-09-24 10:17 | W.[place]-PDMP ---
[place]-PDMP
-
Checked the [place]- Prescription Drug Monitoring Program website, no red flags identified; safe to proceed with prescription.
--- NOTE | 2024-09-24 10:41 | OR.RPT ---
Operative Report
Operative Report
PROCEDURE DATE: 09/24/2024
Preoperative diagnosis: End-stage renal disease on hemodialysis.
Postoperative diagnosis: Same
Procedure:
1. Right upper extremity brachiobasilic arteriovenous fistula creation with single stage basilic vein transposition.
2. Ligation of left upper extremity AV graft.
Surgeon: Demetrio
Magnetizer: MAYELA Goodson, required for all aspects of procedure with traction/countertraction following of vascular suture line, assistance with closure.
Complications: None
Anesthesia: General
Indications for procedure:
End-stage renal disease hemodialysis. Left upper extremity AV graft did not be successfully accessed despite multiple attempts, interventions, imaging. Risk/benefits/alternatives of new access creation were fully discussed. Patient understood all
wished to proceed.
Description of procedure:
Patient was identified brought to the operating room placed on the table in supine position. After the induction of anesthesia, I mapped his right upper extremity veins, and his right upper extremity basilic vein in the upper arm appeared suitable.
After the adequate administration of anesthesia and perioperative antibiotics he was prepped and draped in the standard surgical fashion. A standard preoperative timeout was undertaken and everybody was in agreement the plan. A longitudinal
incision was made in the medial distal upper arm that was carried through the skin subcutaneous tissue with electrocautery. The basilic vein was identified and carefully dissected away from surrounding structures and great care to avoid any injury
to structures. It appeared to be a very suitable vein. I therefore then continued my incisions extending proximally up towards the axilla and distally just to the level of the antecubital fossa. The basilic vein was carefully dissected away from
surrounding structures take great care to avoid any injury to structures, namely the median antebrachial cutaneous nerve which was carefully preserved from harm's way. Any branches of the basilic vein were ligated between silk ties and then
divided. As such I was able to mobilize the entirety of the basilic vein out of its bed. Once I fully mobilized sufficient length of vein I then ligated the vein distally with a silk tie and a clip and then transected it. I then untethered it
from the nerve. I distended under heparinized saline. It distended very well. I marked the anterior surface under distention to avoid any kinking or twisting.
Next I deepened my dissection in the distal aspect of my incision through the fascial layer, thereby identifying the brachial artery and carefully dissected away from surrounding structures and great care to avoid any injury to structures. I passed
Vesseloops around it proximally distally. Based on the length and slight shortening of the vein, I felt that tunneling the vein would be a little bit challenging and would result in some loss of length. Therefore I felt better that the vein could
be raised/superficial lysed directly in the incision bed (directly under the incision).
Next I gave the patient 3000 units of intravenous heparin. I then tightened my Vesseloops (double looped) proximally and distally on the brachial artery. Next I made an arteriotomy with 11 blade and extended using a Stone scissor. I then
spatulated the vein and sewed an end-to-side anastomosis using a running 6-0 Prolene suture. I then completed and tied down my suture line. Next I released my Vesseloops on the artery and the bulldog clamp tied placed on the vein. There was an
excellent thrill in the fistula. I confirmed good distal flow with an easily palpable ulnar (and slightly weaker radial) pulse at the wrist. At this point I was very satisfied. I therefore irrigated all my incision sites. Hemostasis was fully
achieved and confirmed. Then we closed the vein mobilization bed using 2-0 Vicryl running suture. A few interrupted deep dermal 3-0 Vicryl sutures were then placed. While closing these deeper layers, mobilized vein was maintained in a superficial
orientation. Finally 4-0 Monocryl subcuticular stitch was run directly over the superficialized/transposed basilic vein. Dermabond was applied.
At this point I prepped and draped the left upper extremity. A small transverse incision was made overlying the proximal aspect of the AV graft (distal upper arm). This was carried through the skin subcutaneous tissue. The graft was heavily
scarred in place and therefore combination of electrocautery and sharp dissection with Metzenbaum scissors was used to circumferentially dissect a portion of the graft. A right angle clamp was then placed around the graft and heavy silk ties were
used to ligate the graft. The graft was unsuccessfully ligated. We then irrigated this incision site, achieved full hemostasis and then closed in layers with 3-0 Vicryl followed by 4-0 Monocryl subcuticular stitch.
== END 2024-09-24 12:30 | disposition home or self-care (01) ==
LOC: CATH 06:07
PROVIDERS: ATTENDING PHYSICIAN Surgery Vascular Surgery; FAMILY PHYSICIAN Family Medicine; OTHER PHYSICIAN Internal Medicine Cardiovascular Disease
DX: I12.0 Hypertensive chronic kidney disease with stage 5 chronic kidney disease or end stage renal disease (principal); N18.6 End stage renal disease; Z99.2 Dependence on renal dialysis; Z88.5 Allergy status to narcotic agent; Z91.041 Radiographic dye allergy status; Z79.899 Other long term (current) drug therapy; Z79.01 Long term (current) use of anticoagulants; Z79.02 Long term (current) use of antithrombotics/antiplatelets
CPT/HCPCS: 36819; 37607; 80048; 82962; 85027; 85610; 85730; 86850; 86900; 86901

== ENCOUNTER 2024-11-03 08:07 | Day surgery (SDC) | payer MEDICARE, OTHER, SELFPAY ==
[2024-10-29 10:46] VITALS: BMI 28.2
[2024-11-03] VITALS (26 sets, daily range): BP systolic 107–151; BP diastolic 50–106; BMI 28.2
[2024-11-03] MEDS: LOW STRENGTH ASPIRIN 324 MG PO (09:56)
[2024-11-03] MEDS: PLAVIX 75 MG PO (09:57)
[2024-11-03 10:02] LABS: Glucose - Point of Care 180 mg/dl (70-99)
[2024-11-03 11:52] LABS: ACT-LR - POC 345 Seconds (116-155)
[2024-11-03 12:14] LABS: ACT-LR - POC 322 Seconds (116-155)
--- NOTE | 2024-11-03 12:56 | ITS.CL.CATH ---
Tariff Compiling Clerk - Catheterization
Cardiac Catheterization
Procedure Report:
RIGHT AND LEFT HEART CATHETERIZATION
Date of Procedure: November 03, 2024
Referring: Dr. Tai Serra
PROCEDURES:
1. Right heart catheterization
2. Left heart catheterization with coronary angiography
3. Selective saphenous vein graft and ALEX angiography
4. Successful stenting of the ostial SVG-OM1 in segment of high-grade restenosis at the origin of the vein graft within his previously stented segment from September 2023
INDICATION: This is a 69-year-old gentleman with a past medical history notable for end-stage renal disease on chronic hemodialysis therapy. He has a prior history of coronary artery disease with remote stenting of the LAD and circumflex with
subsequent bypass surgery on 07/05/2010 with a GARCIA-LAD, SVG-OM, SVG-PDA. He also has known peripheral vascular disease with left femoral endarterectomy on 04/10/2019 and left femoral to above-knee bypass graft by Dr. Atkinson
A stress study in September 2023 was notable for a moderate area of moderate to severely decreased uptake in the inferolateral, inferior, and apical ernst for which she was referred for coronary angiography. The patient had been experiencing
substernal chest discomfort. Catheterization revealed a high-grade stenosis at the ostium of the SVG-OM and underwent successful complex stenting of the ostial stenosis with placement of a 4.0 x 15 mm Xience stent that was implanted at 14 haseeb. He
is now undergoing evaluation for possible renal transplant and is referred for repeat coronary angiography. Vague chest discomfort at times. Difficult for him to assess symptoms. Not physically very active.
ACCESS: Left common femoral artery using ultrasound guidance and placement of a 6 Lao arterial sheath with an Amplatz extra-stiff wire facilitating delivery of the sheath to the arteriotomy site. Venous access was obtained in the right common
femoral vein and a 6 Lao venous sheath was inserted. Ultrasound guidance was utilized for vascular access
HEMODYNAMICS (mmHg) :
RA (m) : 12
RV (s/d) : 46/5, 13
PA (s/d,m) : 44/23, 32
PCWP (m) : 23 with V waves to 38 mmHg
AO (s/d, m) : 138/60, 89
LV (s/d) : 139/6
LVEDP (m) : 19
Estimated Valeriy Cardiac Output: 7.4 L/min and Cardiac Index: 3.8 L/min/M-2
Systemic vascular resistance: 10.3 Wood units or 821 [id number](-5)
Pulmonary vascular resistance: 1.2 Wood units or 97.3 [id number](-5)
CORONARY ANGIOGRAPHY
Dominance: Right
LEFT MAIN: Distal tapering
LEFT ANTERIOR DESCENDING: The LAD becomes 100% occluded just beyond the first septal credit analyst. The distal LAD is noted to fill via a widely patent GARCIA graft. The LAD fills proximal and distal to the GARCIA anastomosis with excellent flow through
the graft
CIRCUMFLEX: The circumflex is 100% occluded near its origin. The distal vessel is noted to fill via apical LAD collaterals and via the SVG-OM which is found to have a high-grade restenotic segment at the origin of the previously placed stent in
September 2023
RIGHT CORONARY ARTERY: 100% occluded. The distal vessel fills via a patent graft as listed below
GRAFT ANGIOGRAPHY:
1. GARICA-LAD the GARCIA graft is anastomosed to the mid LAD. There is antegrade and retrograde filling of the LAD proximal and distal to the graft anastomosis. The LAD proximal to the GARCIA graft has a 60-70% stenosis near the origin of a small first
diagonal branch. There is good distal runoff supplying a well-developed collaterals to the distal circumflex
2. SVG-OM: There is a stent from September 2023 at the origin of the SVG-OM. The stent has a 90% area of restenosis in the proximal to midportion of the stent. The graft to the OM remains patent
3. SVG-PDA: The saphenous vein graft to the PDA is widely patent
LEFT VENTRICULOGRAPHY: Not done
ANGIOPLASTY REPORT: Upon review of the diagnostic angiogram the decision was made to proceed with percutaneous revascularization of the high-grade ostial/proximal restenosis within the previously placed stent. Intravenous heparin was administered
and the ACT was monitored throughout the procedure. The origin of the saphenous vein graft was approached using a JL 4 6 Lao guide catheter. A long BMW guidewire probe the ostial stent and crossed the area of restenosis and was advanced into
the distal vessel. Balloon predilation proved very difficult with recurring watermelon seeding of the balloon during inflations in the proximal portion of the SVG stent. The stent was initially dilated using a 2.5 x 15 mm Euphora balloon and
multiple balloon inflations were performed with the balloon frequently watermelon seeding either proximal or distally during balloon inflations. We were fortunate to catch the stenotic segment with the balloon hanging proximally in the aorta and
performing rapid inflation. Balloon angioplasty was performed to high pressures. The area of restenosis was predilated using a 3.0 mm noncompliant balloon with recurring watermelon seeding events occurring. Again, successful deployment of the
balloon occurred while the balloon was positioned proximally hanging in the aorta and the restenotic segment was postdilated to high pressures with a 3 mm noncompliant balloon then with a 4 x 20 mm noncompliant balloon. The guide catheter could now
be advanced into the vein graft origin with no pressure dampening. A 4.0 x 18 mm Kadeem stent was in position with angiographic and fluoroscopic guidance. The guide catheter was withdrawn and the stent was slowly retracted then dilated at the
ostium/proximal portion of the saphenous vein graft. The stent achieve excellent expansion and was postdilated to high pressures with a 4.5 mm noncompliant balloon to 16 haseeb at the ostium of the stent with a nice angiographic result
RADIATION SUMMARY: Fluoro Time (min): 25.2, Dose (mGy): 886, DAP (Gy.cm2) : 73.7
Closure Device: None
CONCLUSION
1. Successful stenting of restenosis at the origin of the SVG-OM with serial balloon inflations and ultimate placement of a 4.0 x 18 mm [place] stent that was postdilated with a 4.5 mm noncompliant balloon
2. Widely patent GARCIA-LAD and SVG-PDA with severe kaibab vessel coronary disease as described above
3. Mildly elevated left ventricular filling pressure
RECOMMENDATIONS
1. Aspirin, clopidogrel, and apixaban for 7 to 10 days followed by clopidogrel and apixaban
2. Will notify nephrology. Patient will likely need hemodialysis while admitted
3. Follow-up with Dr. Atkinson as scheduled
Copy to: Dr. Tai Serra
[2024-11-03 13:17] LABS: Glucose - Point of Care 176 mg/dl (70-99)
[2024-11-03 13:46] LABS: ACT-LR - POC 219 Seconds (116-155)
[2024-11-03 14:54] LABS: ACT-LR - POC 186 Seconds (116-155)
[2024-11-03] MEDS: TYLENOL 650 MG PO (15:57)
[2024-11-03] MEDS: ATIVAN 1 MG PO ×2 (15:57→21:51)
--- NOTE | 2024-11-03 16:03 | PTCARENOTE ---
Assumed care of pt CCL post stent placement to saphenous vein graft. Pt arrives awake and alert, VSs, CM shows SR 60's, POX 98% on RA. Left femoral arterial line intact, first ACT on arrival 186, CCL nurse in to pull line. Bilateral femoral sites
CDI. Tylenol given as per JAN for lower back pain 05/04.
--- NOTE | 2024-11-03 16:05 | W.CON.NEPH ---
Consultation
-
Date/Time Consultation Requested: November 03, 2024 1300
Date/Time Consultation Performed: November 03 4:00 PM
Requesting Provider: Dr. Ga
Performing Provider: Dr. Anderson
Reason for Consultation: End-stage renal disease
Medical History
-
Chief Complaint: ESRD
History of Present Illness:
The patient is a 69-year-old male with a past medical history of end-stage renal disease secondary to diabetes who is maintained on a Saturday dialysis schedule. He is maintained on insulin therapy for his diabetes with multiple
microvascular complications including diabetic neuropathy. He is maintained on calcium acetate for his hyperphosphatemia and amlodipine and metoprolol for his hypertension.He is chronically anticoagulated with Eliquis for his atrial fibrillation .
The patient presented to the hospital today for elective cardiac catheterization and underwent successful stenting of restenosis of origin of the SVG- OM.procedure. Pulmonary capillary wedge pressure was 23. We were consulted for his end-stage
renal disease management.
Past Medical History
Stenting of vein graft to obtuse marginal October 24, 2023
Strep bacteremia now off antibiotics
diastolic CHF
ESRD MWF ([facility])
Metabolic acidosis
Hyperkalemia
Anemia, CKD +/- functional iron deficiency
Secondary hyperparathyroidism with hyperphosphatemia
Diabetes mellitus with multiple microvascular complications including profound nephrotic proteinuria
COPD
Obstructive sleep apnea/CPAP
Diabetic polyneuropathy
CAD with CABG �2009
LAD stent 2015
Left SFA and popliteal angioplasty 2017
Left femoral to [id number] popliteal bypass 2018
Right SFA and popliteal angioplasty/stenting 2015
Hypertension
Right bundle branch block
CML
Hyperlipidemia
TIA 2016
Frontal subdural hematoma 2019 (traumatic fall)
Long-standing smoker
Multiple laminectomy
Right total knee replacement
Left total knee replacement
Left upper arm AV graft September 13, 2023 (Dr. Luther)
NSTEMI August 2023 (troponin 0.51)
Hyperphosphatemia
Chronic ambulatory despite
Social History
Tobacco: Former Smoker
Alcohol: None
Personal:
Living: With Family
Family History
No chronic kidney disease
Allergies / Home Medications
Allergy/AdvReac Type Severity Reaction Status Date / Time
Iodinated Contrast Media Allergy Nausea / Verified 11/03/24 08:53
Vomiting,
'panic
attack'
latex Allergy Itching Verified 11/03/24 08:53
morphine Allergy Itching Verified 11/03/24 08:53
�Medication �Instructions �Recorded �Confirmed �Type
melatonin 5 mg tablet 5 mg PO HS sleep 04/06/19 11/03/24 History
atorvastatin 80 mg tablet 80 mg PO HS High cholesterol 01/25/21 11/03/24 History
ezetimibe 10 mg tablet (Zetia) 10 mg PO BID High Cholesterol 11/14/23 11/03/24 History
calcium acetate 667 mg tablet 1,334 mg PO TID 02/19/24 11/03/24 History
clopidogrel 75 mg tablet (Plavix) 75 mg PO DAILY Blood Clot 02/19/24 11/03/24 History
Prevention/Tx
coQ10 (ubiquinol) 200 mg capsule 200 mg PO DAILY Supplement 02/19/24 11/03/24 History
semaglutide 0.25 mg or 0.5 mg (2 0.25 mg SC GRIMM Diabetes 02/19/24 11/03/24 History
mg/3 mL) subcutaneous pen injector
(Ozempic)
sertraline 100 mg tablet 100 mg PO BID Mental Health 02/19/24 11/03/24 History
vitamin B complex-vitamin C-folic 1 tab PO DAILY Supplement 02/19/24 11/03/24 History
acid 0.8 mg tablet (Nephro-Michelle)
amlodipine 2.5 mg tablet 2.5 mg PO BID #60 tabs 02/28/24 11/03/24 Rx
apixaban 5 mg tablet (Eliquis) 5 mg PO BID #60 tabs 02/28/24 11/03/24 Rx
acetaminophen 325 mg tablet 650 mg PO Q4HPRN PRN mild 05/25/24 11/03/24 History
pain/fever >100
albuterol sulfate 90 mcg/actuation 2 puff inhalation R Q4HPRN PRN sob 05/25/24 11/03/24 History
aerosol inhaler
mometasone 0.1 % topical cream 1 applic topical BIDPRN PRN left 05/25/24 11/03/24 History
ear
calcium carbonate (Antacid 2 tab PO Q4HPRN PRN heartburn #0 06/25/24 11/03/24 Rx
Extra-Strength) tabs
quercetin 500 mg capsule 500 mg PO DAILY Supplement 07/01/24 11/03/24 History
methylphenidate HCl 10 mg tablet 30 mg PO DAILY 07/07/24 11/03/24 History
pantoprazole 40 mg tablet,delayed 40 mg PO DAILY PRN gerd 07/23/24 11/03/24 History
release
amiodarone 200 mg tablet 200 mg PO BID 09/23/24 11/03/24 History
aripiprazole 2 mg tablet 2 mg PO DAILY 09/23/24 11/03/24 History
metoprolol succinate 25 mg 12.5 mg PO DAILY 09/23/24 11/03/24 History
tablet,extended release 24 hr
lorazepam 1 mg tablet 1 mg PO TID 10/28/24 11/03/24 History
oxycodone 10 mg tablet 10 mg PO BIDPRN PRN pain 10/29/24 11/03/24 History
zinc 1 tab PO DAILY 10/29/24 11/03/24 History
cephalexin 500 mg tablet 500 mg PO Q12H 10/30/24 11/03/24 History
ascorbic acid (vitamin C) 500 mg 500 mg PO DAILY 11/03/24 11/03/24 History
tablet (Vitamin C)
Review of Systems
-
History Source: Patient
All other systems: Negative unless noted
Constitutional: No Symptoms
Physical Exam
Vital Signs
Vital Signs
Temp Pulse Resp BP Pulse Ox
97.8 F 67 16 142/65 93
11/03/24 14:38 11/03/24 15:05 11/03/24 14:38 11/03/24 15:05 11/03/24 15:00
Physical Exam
General: AOx3, Nontoxic , NAD
HEENT: PERRL, EOMI, Anicteric, Conjunctivae Clear, Ear/Nose Intact, Hearing Normal, Oropharynx Clear/Moist, Dentition Intact, Facial Symmetry, Neck Supple, Neck: Trachea Midline, No JVD and No Thyromegaly, no Bruits
Respiratory: Clear to auscultation bilaterally with decreased breath sounds to the bases and with normal lung excursion
Cardiac: S1/S2 and Regular Rate/Rhythm
Breast: Deferred by me
Abdomen: Soft, Nontender, Nondistended, Normal Bowel Sounds and No Hepatosplenomegaly
Rectal: Deferred by Provider
Genito-urinary: No Costovertebral Tenderness
Extremities: No Clubbing, No Cyanosis and No Edema
Skin: No Rash or open lesions
Neuro: Nonfocal/Grossly Intact, CN II-XII (Intact) and Strength (Musculoskeletal exam 5 out of 5 both upper and lower extremities)
Hematologic/Lymphatic: No Cervical Lymphadenopathy, No Submandibular Lymphadenopathy and No Supraclavicular Lymphadenopathy
Psych: Mood/afflect pleasant, Insight/he is very lethargic postprocedure
Vascular: Right upper extremity AV fistula with good thrill and bruit left anterior chest wall catheter, distal pulses poorly palpable
Vascular Access: AVG (Left upper extremity)
Data Reviewed
-
Medical Tests (Nuc Med, Echo etc): Other (Assistant Production Editor report reviewed for stenting procedure)
Labs: Labs Reviewed by me (BMP CBC to be ordered)
Old Records: Reviewed (Reviewed previous nephrology from June 2024 for ESRD during admission for chest)
Assessment/Plan
-
Impression:
ESRD MWF
Status post elective cardiac catheterization with stenting
PAF now in AFIB
DM
CABG hx
Anemia
PVD
LUE AVG/CVC
Hyperphosphatemia
HTN
Diabetic neuropathy
Secondary hyperparathyroidism
Coronary artery disease with previous stenting
Left anterior chest wall dialysis catheter
Plan:
HD tomorrow, orders provided
Appropriate fluid restriction and dietary restriction
GITA provided on dialysis
Maintain current antihypertensives for blood pressure control
Review of right heart cath revealed elevated pulmonary capillary wedge pressure 23 indicating volume overload and need for continued reduction of estimated dry weight as hemodynamically tolerated
Right upper extremity AV fistula is still healing. We are utilizing dialysis catheter
[2024-11-03 19:49] LABS: Glucose - Point of Care 161 mg/dl (70-99)
[2024-11-03] MEDS: PHOSLO 1334 MG PO (20:11)
[2024-11-03] MEDS: ZOLOFT 100 MG PO (20:12)
[2024-11-03] MEDS: KEFLEX 500 MG PO (20:12)
[2024-11-03] MEDS: NORVASC 2.5 MG PO (20:13)
[2024-11-03] MEDS: PACERONE 200 MG PO (20:13)
[2024-11-03] MEDS: LIPITOR 80 MG PO (21:51)
[2024-11-03] MEDS: ROXICODONE 10 MG PO (21:52)
--- NOTE | 2024-11-03 23:48 | PTCARENOTE ---
Received patient at change of shift. Patient still on bed rest post cath procedure. Awake, alert, and oriented. Left and right groin sites clean, dry, and intact. No ecchymosis, hematoma, and soft to touch. BP 114/69, NSR with prolonged Qt mid-60s,
100% on room air. Discussed time to increase HOB @ 1945 and patient verbalized understanding. Patient agreed to call RN if needed to go to the bathroom. Call deluca within reach.
[2024-11-04] VITALS (21 sets, daily range): BP systolic 112–168; BP diastolic 41–131; BMI 28.3
[2024-11-04 05:33] LABS: Hematocrit 29.3 % (39.0-52.0); Hemoglobin 9.7 g/dL (13.0-18.0); Mean Corp Hgb Conc. 33.1 g/dL (33.0-37.0); Mean Corpuscular Hgb 33.3 pg (27.0-31.0); Mean Corpuscular Volume 100.7 fL (80.0-94.0); Mean Platelet Volume 10.5 fL (7.4-10.4); Platelet Count 340 10^3/uL (130-400); Red Blood Cell Count 2.91 10^6/uL (4.70-6.10); Red Cell Dist. Width 14.1 % (11.5-14.5); White Blood Cell Count 21.6 10^3/uL (4.8-10.8)
[2024-11-04 06:20] LABS: Blood Urea Nitrogen 58 mg/dl (9-20); Calcium 8.9 mg/dl (8.4-10.2); Carbon Dioxide 26 mmol/L (22-30); Chloride 91 mmol/L (98-107); Estimated Creatinine Clearance 10 ml/min; Glucose 117 mg/dl (70-99); HDL Cholesterol 63 mg/dl; LDL Cholesterol, Calculated 52 mg/dl; Potassium 5.1 mmol/L (3.5-5.1); Sodium 133 mmol/L (135-145); Total Cholesterol 130 mg/dl (50-199); Triglyceride 77 mg/dl (10-149); Very Low Density Lipoprotein 15 mg/dl (0-30); eGFR 8.07
--- NOTE | 2024-11-04 07:44 | W.PN.CARDCBS ---
Addendum entered and electronically signed by Tai Serra MD 11/04/24 10:11:
I saw and examined the patient.
The ADMINISTRATIVE TECH or PA's note was reviewed and I agree with the note.
Comment: General: Well developed, well nourished in NAD.
Neck: Supple, no JVD, HJR, carotids +2 B/L, no bruits bilaterally.
Heart: Non displaced PMI, RRR, no murmurs, No S3, S4, no rubs.
Lungs: Scattered rhonchi
Extremities: No clubbing, cyanosis or edema bilaterally.
Neuro: Grossly nonfocal, awake, alert and oriented x3.
Stable cardiology status for discharge after hemodialysis. Follow-up as been arranged.
Original Note:
Today's Communication / Plan
-
post PCI stable for d/c home after HD
Impression / Plan
-
PCP: Placido Lora MD
CDY: Tai Serra MD
Impression:
CAD
-PCI LAD 2005
-CABGx3 2009
-PCI VG to OM 09/2023
-s/p PCI ISR VG to OM 11/03/24
HTN
HLD
PAF on chronic OAC
RBBB
Chronic HFpEF
ESRD HD M-W-F
GERD
PAD
DM2
TIA's
Ambulatory dysfunction
Osteoarthritis chronic pain syndrome
BPH
Gout
Depression
Anemia of chronic disease
Staph bacteremia, 01/2024, treatment with IV Cefazolin.
Right foot wound with abscess, 10/27/2024, status post
I&D and debridement; on Cephalexin per Podiatry.
Plan:
post PCI denies chest pain
b/l groins stable
tele SR
leukocytosis wbc 21, afebrile, foot infection being treated actively on cephalexin 500mg bid
Resume Apixaban this am, triple therapy for 1 week ASA/Plavix, then stop ASA
LDL 52 continue atorvastatin 80mg and ezetimibe 10mg
HD today
Cardiac rehab c/s
Activity restrictions reviewed
f/u DCA 2-4 week
home later today after HD
11/03/24 [facility]:
1. Successful stenting of restenosis at the origin of the SVG-OM with serial balloon inflations and ultimate placement of a 4.0 x 18 mm [place] stent that was postdilated with a 4.5 mm noncompliant balloon
2. Widely patent GARCIA-LAD and SVG-PDA with severe [place] vessel coronary disease as described above
3. Mildly elevated left ventricular filling pressure
Progress Note - [employer] Admin
Subjective
Date of Service: November 04, 2024
denies cp, sob
Objective
Labs:
11/04/24 04:50
11/04/24 04:50
Labs
Hgb 9.7 g/dL (13.0-18.0) L 11/04/24 04:50
Hct 29.3 % (39.0-52.0) L 11/04/24 04:50
Plt Count 340 10^3/uL (130-400) 11/04/24 04:50
Sodium 133 mmol/L (135-145) L 11/04/24 04:50
Potassium 5.1 mmol/L (3.5-5.1) 11/04/24 04:50
BUN 58 mg/dl (9-20) H 11/04/24 04:50
Creatinine 6.9 mg/dL (0.7-1.3) H* 11/04/24 04:50
Glucose 117 mg/dl (70-99) H 11/04/24 04:50
Vital Signs and I&O:
Vital Signs
Temp Pulse Resp BP Pulse Ox
97.8 F 68 16 137/62 98
11/04/24 04:58 11/04/24 06:30 11/04/24 04:58 11/04/24 04:43 11/04/24 04:58
Vital Signs
Temp Pulse Resp BP Pulse Ox
97.8 F 68 16 137/62 98
11/04/24 04:58 11/04/24 06:30 11/04/24 04:58 11/04/24 04:43 11/04/24 04:58
Physical Exam
Physical Exam
NAD, AOx3
S1, S2, RRR, II/ SHOAIB
diminished b/l bases, no wheeze, non labored
SNTND Bsx4
b/l groins c/d/i no HT, soft
[2024-11-04 08:03] LABS: Glucose - Point of Care 182 mg/dl (70-99)
[2024-11-04] MEDS: ZETIA 10 MG PO (08:27)
[2024-11-04] MEDS: NEPHROCAP 1 CAPSULE PO (08:28)
[2024-11-04] MEDS: PLAVIX 75 MG PO (08:28)
[2024-11-04] MEDS: PROTONIX 40 MG PO (08:28)
[2024-11-04] MEDS: PHOSLO 1334 MG PO (08:28)
[2024-11-04] MEDS: TOPROL XL 12.5 MG PO (08:29)
[2024-11-04] MEDS: KEFLEX 500 MG PO (08:29)
[2024-11-04] MEDS: LOW STRENGTH ASPIRIN 81 MG PO (08:29)
[2024-11-04] MEDS: ZOLOFT 100 MG PO (08:29)
[2024-11-04] MEDS: NORVASC 2.5 MG PO (08:29)
[2024-11-04] MEDS: ABILIFY 2 MG PO (08:30)
[2024-11-04] MEDS: PACERONE 200 MG PO (08:30)
[2024-11-04] MEDS: RITALIN 30 MG PO (08:30)
[2024-11-04] MEDS: ROXICODONE 10 MG PO (09:56)
[2024-11-04] MEDS: ELIQUIS 5 MG PO (09:57)
[2024-11-04] MEDS: ATIVAN 1 MG PO (11:00)
--- NOTE | 2024-11-04 13:15 | W.DS.TRANS ---
DC Summary - Shipping Point Inspector
-
Discharge Instructions:
Discharge Diagnosis/Procedures Angioplasty and stent to Vein graft-Obtuse
Marginal artery
Diet Low Cholesterol
Driving Restrictions No driving for 24 hours
Other Services Cardiac Rehab
Instructions:
Stand-Alone Forms: DC Instructions- Cath/EP Lab
Changes to Home Medications: No
Discharge Medications:
DC Medications w/original date entered in [employer]
melatonin 5 mg tablet 5 mg PO HS sleep 04/06/19
atorvastatin 80 mg tablet 80 mg PO HS High cholesterol 01/25/21
calcium acetate 667 mg tablet 1,334 mg PO TID 02/19/24
clopidogrel 75 mg tablet (Plavix) 75 mg PO DAILY Blood Clot Prevention/Tx 02/19/24
coQ10 (ubiquinol) 200 mg capsule 200 mg PO DAILY Supplement 02/19/24
semaglutide 0.25 mg or 0.5 mg (2 mg/3 mL) subcutaneous pen injector (Ozempic) 0.25 mg SC GRIMM Diabetes 02/19/24
sertraline 100 mg tablet 100 mg PO BID Mental Health 02/19/24
vitamin B complex-vitamin C-folic acid 0.8 mg tablet (Nephro-Michelle) 1 tab PO DAILY Supplement 02/19/24
amlodipine 2.5 mg tablet 2.5 mg PO BID #60 tabs 02/28/24
apixaban 5 mg tablet (Eliquis) 5 mg PO BID #60 tabs 02/28/24
acetaminophen 325 mg tablet 650 mg PO Q4HPRN PRN mild pain/fever >100 05/25/24
albuterol sulfate 90 mcg/actuation aerosol inhaler 2 puff inhalation R Q4HPRN PRN sob 05/25/24
mometasone 0.1 % topical cream 1 applic topical BIDPRN PRN left ear 05/25/24
calcium carbonate (Antacid Extra-Strength) 2 tab PO Q4HPRN PRN heartburn #0 tabs 06/25/24
quercetin 500 mg capsule 500 mg PO DAILY Supplement 07/01/24
methylphenidate HCl 10 mg tablet 30 mg PO DAILY 07/07/24
pantoprazole 40 mg tablet,delayed release 40 mg PO DAILY PRN gerd 07/23/24
amiodarone 200 mg tablet 200 mg PO BID 09/23/24
aripiprazole 2 mg tablet 2 mg PO DAILY 09/23/24
metoprolol succinate 25 mg tablet,extended release 24 hr 12.5 mg PO DAILY 09/23/24
lorazepam 1 mg tablet 1 mg PO TID 10/28/24
oxycodone 10 mg tablet 10 mg PO BIDPRN PRN pain 10/29/24
zinc 1 tab PO DAILY 10/29/24
cephalexin 500 mg tablet 500 mg PO Q12H 10/30/24
ascorbic acid (vitamin C) 500 mg tablet (Vitamin C) 500 mg PO DAILY 11/03/24
aspirin 81 mg chewable tablet 81 mg PO DAILY #1 tab 11/04/24
ezetimibe 10 mg tablet (Zetia) 10 mg PO DAILY High Cholesterol #0 tabs 11/04/24
Home Medication Changes
Pending Results: No
--- NOTE | 2024-11-04 13:55 | W.PN.NEPH.HD ---
Assessment
-
Seen on HD. no complaints. VSS, access ok
for dc
Progress Note - Hemodialysis
-
Date of Service: November 04, 2024
Duration: 30 minutes and 3 hours
Potassium Bath: 2
Calcium Bath: 2.5
Opti-Dialyzer: 160
Ultrafiltration: Other (3kg)
Blood Flow: 400
Dialysate Flow: 600
Heparin: 0
EPO: 0
--- NOTE | 2024-11-04 14:39 | CM ---
Addendum entered by PEDRO Longo 11/04/24 15:45:
[facility] able to accept.
Original Note:
CM following for DC planning needs.
Met w/ patient at bedside to complete initial assessment.
Pt. comes from 3 story home w/ spouse. He is functionally indep. at baseline w/ ADLs, mobility with use of a RW.
Pt. has HD dependent and goes to [facility] HD MWF, 1st shift. He drives or spouse transports to HD.
Pt. reports to me that he had a fall x1 week ago. He has used [facility] in the past and feels that this will be beneficial again. Initiated referral, awaiting response.
Plan is for home w/ [facility], if accepted.
[2024-11-04] MEDS: PHOSLO PO ×2 (14:59→17:30)
[2024-11-04 16:34] LABS: Glucose - Point of Care 170 mg/dl (70-99)
[2024-11-04] MEDS: ATIVAN PO (17:30)
--- NOTE | 2024-11-04 17:37 | PTCARENOTE ---
Pt had HD treatment without problem. Pt walked in hallls after this for 200 feet. Pt then reported fleeting episode of chest pain ' like a panic attack, I just had an aggravating conversation with someone'. Chest discomfort resolved spontaneously,
Maggie Em NP notified, plan to DC home. Telemetry and IV device removed. Discharge instructions reviewed with pt and his regarding medications, wound care, activity adn driving restrictions, reporting cares and concerns and follow up appt's.
Very good understanding verbalized. Pt escorted out via wheelchair and discharged to home. [facility] will follow.
== END 2024-11-04 17:41 | disposition home or self-care (01) ==
LOC: CATH 08:07
PROVIDERS: Nurse Practitioner; ATTENDING PHYSICIAN Internal Medicine Interventional Cardiology; CONSULT PHYSICIAN Specialist; FAMILY PHYSICIAN Family Medicine; OTHER PHYSICIAN Internal Medicine Cardiovascular Disease
DX: I25.10 Atherosclerotic heart disease of native coronary artery without angina pectoris (principal); I25.810 Atherosclerosis of coronary artery bypass graft(s) without angina pectoris; Z95.5 Presence of coronary angioplasty implant and graft; I13.2 Hypertensive heart and chronic kidney disease with heart failure and with stage 5 chronic kidney disease, or end stage renal disease; E78.5 Hyperlipidemia, unspecified; I48.0 Paroxysmal atrial fibrillation; I45.10 Unspecified right bundle-branch block; I47.19 Other supraventricular tachycardia; I27.20 Pulmonary hypertension, unspecified; E11.51 Type 2 diabetes mellitus with diabetic peripheral angiopathy without gangrene; E11.22 Type 2 diabetes mellitus with diabetic chronic kidney disease; G47.33 Obstructive sleep apnea (adult) (pediatric); Z99.2 Dependence on renal dialysis; N18.6 End stage renal disease; I50.32 Chronic diastolic (congestive) heart failure; D63.1 Anemia in chronic kidney disease; Z79.84 Long term (current) use of oral hypoglycemic drugs; K21.9 Gastro-esophageal reflux disease without esophagitis; Z86.0100 Personal history of colon polyps, unspecified; K76.0 Fatty (change of) liver, not elsewhere classified; R74.01 Elevation of levels of liver transaminase levels; G43.909 Migraine, unspecified, not intractable, without status migrainosus; Z86.73 Personal history of transient ischemic attack (TIA), and cerebral infarction without residual deficits; M19.90 Unspecified osteoarthritis, unspecified site; Z96.643 Presence of artificial hip joint, bilateral; M48.061 Spinal stenosis, lumbar region without neurogenic claudication; G89.4 Chronic pain syndrome; N40.0 Benign prostatic hyperplasia without lower urinary tract symptoms; M10.9 Gout, unspecified; N25.81 Secondary hyperparathyroidism of renal origin; M81.0 Age-related osteoporosis without current pathological fracture; F41.9 Anxiety disorder, unspecified; F32.A Depression, unspecified; F90.9 Attention-deficit hyperactivity disorder, unspecified type; G47.00 Insomnia, unspecified; I25.2 Old myocardial infarction; Z79.899 Other long term (current) drug therapy; Z79.02 Long term (current) use of antithrombotics/antiplatelets; Z79.01 Long term (current) use of anticoagulants; Z79.85 Long-term (current) use of injectable non-insulin antidiabetic drugs; Z95.1 Presence of aortocoronary bypass graft; Z87.891 Personal history of nicotine dependence; Z91.041 Radiographic dye allergy status; Z88.5 Allergy status to narcotic agent; Z88.8 Allergy status to other drugs, medicaments and biological substances; D72.829 Elevated white blood cell count, unspecified; Z76.82 Awaiting organ transplant status; Z79.4 Long term (current) use of insulin; E11.42 Type 2 diabetes mellitus with diabetic polyneuropathy
CPT/HCPCS: 80048; 80061; 82962; 85027; 85347; 87070; 93005; 93461; C1725; C1769; C1874; C1894; C9604; G0257; Q9967

== ENCOUNTER → 2024-11-10 08:54 | Outpatient (REF) | payer MEDICARE, OTHER, SELFPAY | LOC: RAD 08:54 | PROVIDERS: ATTENDING PHYSICIAN Registered Nurse; FAMILY PHYSICIAN Family Medicine | DX: N18.6 End stage renal disease (principal); Z99.2 Dependence on renal dialysis; I77.0 Arteriovenous fistula, acquired | CPT/HCPCS: 93990 ==

== ENCOUNTER 2024-11-23 10:14 | Emergency (ER) | payer MEDICARE, OTHER, SELFPAY ==
[2024-11-23 10:48] VITALS: BP 144/47
[2024-11-23 11:30] VITALS: BP 102/48
[2024-11-23 12:00] VITALS: BP 106/42
[2024-11-23 12:23] VITALS: BP 106/42
[2024-11-23 12:27] LABS: % Basophils 0.4 % (0-2); % Eosinophils 2.7 % (0-6); % Immature Granulocytes 0.6 % (0-0.5); % Lymphocytes 13.8 % (20.5-51.1); % Monocytes 11.2 % (1.7-9.3); % Neutrophils 71.3 % (42.2-75.2); Absolute Basophils 0.1 10^3/uL (0-0.2); Absolute Eosinophils 0.4 10^3/uL (0-0.7); Absolute Immature Granulocytes 0.1 10^3/uL (0-0.05); Absolute Lymphocytes 1.9 10^3/uL (1.2-3.4); Absolute Monocytes 1.5 10^3/uL (0.1-0.6); Absolute Neutrophils 9.6 10^3/uL (1.4-6.5); Hematocrit 32.4 % (39.0-52.0); Hemoglobin 10.2 g/dL (13.0-18.0); Mean Corp Hgb Conc. 31.5 g/dL (33.0-37.0); Mean Corpuscular Hgb 32.5 pg (27.0-31.0); Mean Corpuscular Volume 103.2 fL (80.0-94.0); Mean Platelet Volume 10.8 fL (7.4-10.4); Nucleated Red Blood Cells % 0 % (-); Platelet Count 217 10^3/uL (130-400); Red Blood Cell Count 3.14 10^6/uL (4.70-6.10); Red Cell Dist. Width 16.1 % (11.5-14.5); White Blood Cell Count 13.5 10^3/uL (4.8-10.8)
[2024-11-23 12:44] VITALS: BP 109/55
[2024-11-23 13:00] VITALS: BP 116/44
[2024-11-23 13:09] LABS: ALT (SGPT) 249 U/L (0-50); AST (SGOT) 41 U/L (17-59); Albumin 3.8 g/dl (3.5-5.0); Alkaline Phosphatase 116 U/L (38-126); Blood Urea Nitrogen 47 mg/dl (9-20); Carbon Dioxide 25 mmol/L (22-30); Chloride 94 mmol/L (98-107); Glucose 159 mg/dl (70-99); Potassium 5.6 mmol/L (3.5-5.1); Sodium 134 mmol/L (135-145); Total Bilirubin 0.5 mg/dl (0.2-1.3); Total Protein 6.7 g/dl (6.3-8.2); eGFR 12.17
--- NOTE | 2024-11-23 13:40 | ED.GENMED ---
History of Present Illness
General
Chief Complaint: Fall
Source: patient
Exam Limitations: none
Time Seen by Provider: 11/23/24 11:19
Nursing documentation reviewed up to this point in time: agreed with
History of Present Illness
History of Present Illness:
69-year-old male past medical history of end-stage renal disease currently on dialysis Saturday, vascular disease A-fib presenting to the emergency department today after trip and fall hit the top of his head and also his right
heel. Denies any numbness weakness neck pain. Patient is on blood thinners
Past History
Past History
ED Past Medical History: Arrthythmia (PAF), CAD, Cancer (CML), COPD, CVA, HTN, Hypercholesterolemia, NIDDM, [place], Renal failure (on dialysis), Other (Peripheral artery disease, left femoropopliteal bypass), Other (subdural hematoma) and Other (R foot
ulcer; FINESSE; obesity)
ED Past Surgical History: Cardiac (left fempop bypass) and Other (L femoral endarterectomy, popliteal angioplasty, dialysis graft left upper arm)
Social History
Tobacco: Smoker
Alcohol: None
Drug: Marijuana
Personal:
Living: with family
Employment: Disabled
Family History
Family History: Diabetes and Other (reviewed and non-contributory)
Review of Systems
Review of Systems
Allergies reviewed?: Yes
All Other Systems: ROS reviewed and negative except as documented in HPI and ROS
Phy Exam
Physical Exam
Physical Exam:
GENERAL: Alert , in no apparent distress
EYE: pupils equal and reactive
NECK: Supple, no significant adenopathy.
ENT: o/p clr, mmm.
CARDIAC: Regular rate and rhythm .
LUNGS: Clear breath sounds bilaterally, no acute respiratory distress, no wheezes/rales/rhonchi
ABDOMEN: Soft, without focal tenderness, no r/g, no cvat
NEUROLOGICAL: Alert and oriented, no focal neuro deficits
SKIN: Warm and dry, skin intact.
MUSCULOSKELETAL: Pain to the heel Achilles intact on the right side no edema, well perfused.
PSYCH: Normal and appropriate interaction.
Course
Orders/Labs/Results
Orders:
Orders
11/23/24 10:[address] [CT Head W/o Iv Contrast] Urgent
Comment:
Reason For Exam: Fall with headstrike on thinners.
11/23/24 11:58
Calcaneus, Right 2 View [CR Heel/os Calcis - Right 2 Vw] Urgent
Comment:
Reason For Exam: heel pain
11/23/24 12:12
CBC/With Diff [Complete Blood Count/With Diff] Urgent
CMP [Comprehensive Metabolic Panel] Urgent
TSH Reflex To Free T4 Urgent
Abnormal Lab Results
11/23/24
12:12
WBC 13.5 H 10^3/uL
(4.8-10.8)
RBC 3.14 L 10^6/uL
(4.70-6.10)
Hgb 10.2 L g/dL
(13.0-18.0)
Hct 32.4 L %
(39.0-52.0)
MCV 103.2 H fL
(80.0-94.0)
MCH 32.5 H pg
(27.0-31.0)
MCHC 31.5 L g/dL
(33.0-37.0)
RDW 16.1 H %
(11.5-14.5)
MPV 10.8 H fL
(7.4-10.4)
Abs Immat Gran (auto) 0.1 H 10^3/uL
(0-0.05)
Absolute Neuts (auto) 9.6 H 10^3/uL
(1.4-6.5)
Absolute Monos (auto) 1.5 H 10^3/uL
(0.1-0.6)
Immature Gran % 0.6 H %
(0-0.5)
Lymphocytes % 13.8 L %
(20.5-51.1)
Monocytes % 11.2 H %
(1.7-9.3)
Sodium 134 L mmol/L
(135-145)
Potassium 5.6 H mmol/L
(3.5-5.1)
Chloride 94 L mmol/L
(98-107)
BUN 47 H mg/dl
(9-20)
Creatinine 4.9 H* mg/dL
(0.7-1.3)
Glucose 159 H mg/dl
(70-99)
ALT 249 H U/L
(0-50)
11/23/24 12:12
11/23/24 12:12
Vital Signs
Initial and Last Documented VS:
Initial Vital Signs
Temp Pulse Resp
98.4 F 61 18
11/23/24 10:45 11/23/24 10:45 11/23/24 10:45
Last Documented Vital Signs
Temp Pulse Resp BP Pulse Ox
98.4 F 55 6 116/44 96
11/23/24 10:45 11/23/24 13:15 11/23/24 13:15 11/23/24 13:00 11/23/24 13:15
MDM/Problems Addressed
MDM/Problems Addressed:
69-year-old male presenting to the emergency department today with concerns trip and fall prior to arrival. Hit the top of his head as well as right heel. CT head without emergent findings. No significant laceration or significant break in the
skin. Patient also did have right-sided heel pain. X-ray without evidence of fracture. Labs showed slightly high potassium level and otherwise consistent with end-stage renal disease. He is going for dialysis tomorrow he was advised for
potassium sparing diet tomorrow. Otherwise patient in no distress throughout ER stay stable for outpatient follow-up. He did mention that he was been feeling shaky over the past 6 months or so he was given information for neuro follow-up.
*Critical Care Note
Total Time (30-74mins, 75-104mins- exclusive of procedures): Not Applicable
ED Attending Note
-
Portions of this chart may have been created with voice recognition software.� Occasional wrong word or��sound alike� substitutions may have occurred due to the inherent limitations of voice recognition software.
Discharge Plan
Departure
Patient Disposition: Home (Routine Discharge)
Date of Disposition: 11/23/24
Time of Disposition: 13:43
Patient with high blood pressure during this ER visit?: No
Condition: Good
Covid-19: Not Applicable
Discharge Problem:
Fall
Instructions: Preventing falls in adults
Prescriptions:
No Action
melatonin 5 MG tablet
5 mg PO HS
atorvastatin 80 MG tablet
80 mg PO HS
sertraline 100 mg Tablet
100 mg PO BID
clopidogrel [Plavix] 75 mg Tablet
75 mg PO DAILY
Nephro-Michelle 0.8 mg Tablet
1 tab PO MOWEFR
Patient Comments:
patient had diaylsis yesterday 11/22/24 due to the holidays
coQ10 (ubiquinol) 200 mg Capsule
200 mg PO DAILY
calcium acetate 667 mg Tablet
1,334 mg PO TID
Rx Instructions:
with meals
Ozempic 0.25 mg or 0.5 mg (2 mg/3 mL) Pen Injector
0.25 mg SC GRIMM
Eliquis 5 mg Tablet
5 mg PO BID Qty: 60 0RF
amlodipine 2.5 mg Tablet
2.5 mg PO BID Qty: 60 2RF
acetaminophen 325 mg Tablet
650 mg PO Q4HPRN MDD 3000 mg PRN (Reason: mild pain/fever >100)
albuterol sulfate 90 mcg/actuation Hfa Aerosol Inhaler
2 puff INHALATION R Q4HPRN PRN (Reason: sob)
Antacid Extra-Strength 300 mg (750 mg) Tablet,Chewable
2 tab PO Q4HPRN PRN (Reason: heartburn) Qty: 0 0RF
quercetin 500 mg Capsule
500 mg PO DAILY
methylphenidate HCl 10 mg tablet
30 mg PO DAILY
pantoprazole 40 mg tablet,delayed release (DR/EC)
40 mg PO DAILY PRN (Reason: gerd)
amiodarone 200 mg Tablet
200 mg PO DAILY
metoprolol succinate 25 mg tablet extended release 24 hr
12.5 mg PO DAILY
aripiprazole 2 mg Tablet
2 mg PO DAILY
lorazepam 1 mg tablet
1 mg PO TID
oxycodone 10 mg Tablet
10 mg PO BIDPRN PRN (Reason: pain)
ascorbic acid (vitamin C) [Vitamin C] 500 mg Tablet
500 mg PO DAILY
aspirin 81 mg Tablet,Chewable
81 mg PO DAILY Qty: 1 0RF
Rx Instructions:
Take for 1 week then STOP
ezetimibe [Zetia] 10 mg Tablet
10 mg PO DAILY Qty: 0 0RF
Referrals:
Placido Lora Jr., DO [Family Provider] -
Activity Restrictions/Additional Instructions:
You came to the emergency department today after a fall. You had a slightly elevated potassium level please do not consume any potassium until dialysis session tomorrow. Otherwise your head CT was normal and no evidence of fracture of your heel.
Please follow closely with dialysis return to the emergency department for any worsening, new or concerning symptoms.
[facility]: Kavita Atwood, DO
Phone:�
Interventions
Interventions:
*Risk Screen - Suicide Last Done: 11/23/24 10:45
*General Assessment Last Done: 11/23/24 10:45
*Neglect/Abuse Screening Last Done: 11/23/24 10:45
ED- Fall Risk Assessment Last Done: 11/23/24 12:25
*ED COVID-19 Vaccine History Last Done: 11/23/24 12:24
ED-Musculoskeletal Assessment Last Done: 11/23/24 12:25
ED- Neurological Assessment Last Done: 11/23/24 11:31
ED-Skin Assessment Last Done: 11/23/24 12:42
Discharge Date and Time
Print Language: [id number]
== END 2024-11-23 14:00 | disposition home or self-care (01) ==
LOC: EMR 10:14
PROVIDERS: Physician Assistant; EMERGENCY PHYSICIAN Emergency Medicine; FAMILY PHYSICIAN Family Medicine
DX: S09.90XA Unspecified injury of head, initial encounter (principal); S99.921A Unspecified injury of right foot, initial encounter; R51.9 Headache, unspecified; W01.0XXA Fall on same level from slipping, tripping and stumbling without subsequent striking against object, initial encounter; I12.0 Hypertensive chronic kidney disease with stage 5 chronic kidney disease or end stage renal disease; N18.6 End stage renal disease; I48.0 Paroxysmal atrial fibrillation; E78.00 Pure hypercholesterolemia, unspecified; E11.22 Type 2 diabetes mellitus with diabetic chronic kidney disease; E11.51 Type 2 diabetes mellitus with diabetic peripheral angiopathy without gangrene; I25.10 Atherosclerotic heart disease of native coronary artery without angina pectoris; K21.9 Gastro-esophageal reflux disease without esophagitis; K76.0 Fatty (change of) liver, not elsewhere classified; M19.90 Unspecified osteoarthritis, unspecified site; F41.9 Anxiety disorder, unspecified; F32.A Depression, unspecified; F90.9 Attention-deficit hyperactivity disorder, unspecified type; G47.33 Obstructive sleep apnea (adult) (pediatric); J44.9 Chronic obstructive pulmonary disease, unspecified; F17.200 Nicotine dependence, unspecified, uncomplicated; Z99.2 Dependence on renal dialysis; I25.2 Old myocardial infarction; Z79.01 Long term (current) use of anticoagulants; Z86.73 Personal history of transient ischemic attack (TIA), and cerebral infarction without residual deficits; Z85.6 Personal history of leukemia; Z95.5 Presence of coronary angioplasty implant and graft
CPT/HCPCS: 99284; 70450; 73650; 80053; 84443; 85025

== ENCOUNTER → 2024-12-10 11:35 | Outpatient (REF) | payer MEDICARE, OTHER, SELFPAY ==
[2024-12-10 13:03] LABS: ALT (SGPT) 63 U/L (0-50); AST (SGOT) 43 U/L (17-59); Alkaline Phosphatase, Total 147 U/L (38-126); GGTP 28 U/L (15-73); Total Bilirubin 0.6 mg/dl (0.2-1.3); Total Protein 7.9 g/dl (6.3-8.2)
[2024-12-10 18:23] LABS: Alk Phos After Heat 123; Alkaline Phosphatase Percent 83.67
== END ==
LOC: REG 11:35
PROVIDERS: ATTENDING PHYSICIAN Nurse Practitioner Adult Health; FAMILY PHYSICIAN Family Medicine
DX: R79.89 Other specified abnormal findings of blood chemistry (principal); E78.5 Hyperlipidemia, unspecified
CPT/HCPCS: 36415; 82247; 82977; 84078; 84155; 84450; 84460

== ENCOUNTER → 2024-12-29 09:54 | Outpatient (REF) | payer MEDICARE, OTHER, SELFPAY ==
--- NOTE | 2024-12-29 11:28 | PTCARENOTE ---
IRAD note: patient came for TDC removal. patient identified. left chest tunneled HD catheter removed by Scott Madrigal. tolerated well. dressing CDI. discharge instructions given to patient. verbalized understanding. D/C home.
== END ==
LOC: RADI 09:54
PROVIDERS: ATTENDING PHYSICIAN Internal Medicine Nephrology; FAMILY PHYSICIAN Family Medicine
DX: Z49.01 Encounter for fitting and adjustment of extracorporeal dialysis catheter (principal); N18.6 End stage renal disease
CPT/HCPCS: 36589

== ENCOUNTER 2025-01-25 10:56 | Inpatient (IN) | payer MEDICARE, OTHER, SELFPAY ==
[2025-01-25] VITALS (17 sets, daily range): BP systolic 103–178; BP diastolic 54–89; BMI 29.0
--- NOTE | 2025-01-25 08:52 | ED.GENMED ---
History of Present Illness
General
Chief Complaint: Vascular Access Problem
Time Seen by Provider: 01/25/25 08:21
History of Present Illness
History of Present Illness:
Patient is a 69-year-old man with history of A-fib on Eliquis, CAD on aspirin, ESRD with fistula presenting to the emergency department bleeding fistula. Per chart review patient had this fistula placed at the end of August. He states that this
occurred after he had complications with a fistula in his left upper extremity. He states that has been having issues with bleeding after dialysis sessions. They usually get to stop at dialysis. However today he went for his routine dialysis when
as soon as he punctured it he started bleeding from both puncture sites. They clamped it and immediately brought him to the emergency department. He denies any lightheadedness or dizziness.
Past History
Past History
ED Past Medical History: Arrthythmia (PAF), CAD, Cancer (CML), COPD, CVA, HTN, Hypercholesterolemia, NIDDM, [place], Renal failure (on dialysis), Other (Peripheral artery disease, left femoropopliteal bypass), Other (subdural hematoma) and Other (R foot
ulcer; FINESSE; obesity)
ED Past Surgical History: Cardiac (left fempop bypass) and Other (L femoral endarterectomy, popliteal angioplasty, dialysis graft left upper arm)
Social History
Tobacco: Smoker
Alcohol: None
Drug: Marijuana
Personal:
Living: with family
Employment: Disabled
Family History
Family History: Diabetes and Other (reviewed and non-contributory)
Phy Exam
Physical Exam
Physical Exam:
GENERAL: in no acute distress
HEENT: normocephalic
NECK: normal inspection
RESPIRATORY: no respiratory distress
CARDIOVASCULAR: regular rate and rhythm
EXTREMITIES: Left upper extremity fistula with active bleeding from 2 puncture sites
NEUROLOGIC: awake and alert, moves all extremities
SKIN: warm
Course
Orders/Labs/Results
Orders:
Orders
01/25/25 08:49
Complete Blood Count/With Diff Urgent
Comprehensive Metabolic Panel Urgent
Vital Signs
Initial and Last Documented VS:
Initial Vital Signs
Temp Pulse Resp BP Pulse Ox
98.2 F 76 18 145/89 100
01/25/25 08:23 01/25/25 08:23 01/25/25 08:23 01/25/25 08:23 01/25/25 08:23
Last Documented Vital Signs
Temp Pulse Resp BP Pulse Ox
98.2 F 76 18 145/89 100
01/25/25 08:23 01/25/25 08:23 01/25/25 08:23 01/25/25 08:23 01/25/25 08:23
MDM/Problems Addressed
Differential Diagnosis Includes:
Patient is a 69-year-old man with history of ESRD, A-fib on Eliquis, CAD on aspirin presenting to the emergency department bleeding AV fistula to the right upper extremity. On arrival patient's vital signs were unremarkable. He was still having
active bleeding through the clamp and dressing that EMS put on. And then dressing was slowly removed. 2 puncture sites were visualized actively bleeding. Attempted to place direct pressure over both sites. I immediately called vascular surgery
Dr. Luther. Their team down to bedside and ultimately placed 2 [id number] stitches. Bleeding has been controlled. Recommending admission for add-on fistulogram. Will check basic blood work to see if patient needs emergent dialysis today.
Discussed with hospitalist who excepted patient to their service
*Critical Care Note
Total Time (30-74mins, 75-104mins- exclusive of procedures): 37
comment:
Critical care statement: A total of 37 minutes of critical care time was provided for this patient. This includes management of unstable vital signs, evaluation of the patient at bedside, reviewing the patient's pertinent medical records, ordering
and reviewing studies, arranging urgent treatment with development of a management plan, evaluating patient's response to treatment, frequent reassessment, and discussion with consultants. This time was separate from time utilized to perform the
aforementioned documented procedures.
ED Attending Note
-
Portions of this chart may have been created with voice recognition software.� Occasional wrong word or��sound alike� substitutions may have occurred due to the inherent limitations of voice recognition software.
Discharge Plan
Departure
Patient Disposition: Admit
Date of Disposition: 01/25/25
Time of Disposition: 08:58
Presentation/result/management discussed w/ accepting MD/DO: Hospitalist
Discharge Problem:
AV fistula
Prescriptions:
No Action
melatonin 5 MG tablet
5 mg PO HS
atorvastatin 80 MG tablet
80 mg PO HS
sertraline 100 mg Tablet
100 mg PO BID
clopidogrel [Plavix] 75 mg Tablet
75 mg PO DAILY
Nephro-Michelle 0.8 mg Tablet
1 tab PO MOWEFR
Patient Comments:
patient had diaylsis yesterday 11/22/24 due to the holidays
coQ10 (ubiquinol) 200 mg Capsule
200 mg PO DAILY
calcium acetate 667 mg Tablet
1,334 mg PO TID
Rx Instructions:
with meals
Ozempic 0.25 mg or 0.5 mg (2 mg/3 mL) Pen Injector
0.25 mg SC GRIMM
Eliquis 5 mg Tablet
5 mg PO BID Qty: 60 0RF
amlodipine 2.5 mg Tablet
2.5 mg PO BID Qty: 60 2RF
acetaminophen 325 mg Tablet
650 mg PO Q4HPRN MDD 3000 mg PRN (Reason: mild pain/fever >100)
albuterol sulfate 90 mcg/actuation Hfa Aerosol Inhaler
2 puff INHALATION R Q4HPRN PRN (Reason: sob)
Antacid Extra-Strength 300 mg (750 mg) Tablet,Chewable
2 tab PO Q4HPRN PRN (Reason: heartburn) Qty: 0 0RF
quercetin 500 mg Capsule
500 mg PO DAILY
methylphenidate HCl 10 mg tablet
30 mg PO DAILY
pantoprazole 40 mg tablet,delayed release (DR/EC)
40 mg PO DAILY PRN (Reason: gerd)
amiodarone 200 mg Tablet
200 mg PO DAILY
metoprolol succinate 25 mg tablet extended release 24 hr
12.5 mg PO DAILY
aripiprazole 2 mg Tablet
2 mg PO DAILY
lorazepam 1 mg tablet
1 mg PO TID
oxycodone 10 mg Tablet
10 mg PO BIDPRN PRN (Reason: pain)
ascorbic acid (vitamin C) [Vitamin C] 500 mg Tablet
500 mg PO DAILY
aspirin 81 mg Tablet,Chewable
81 mg PO DAILY Qty: 1 0RF
Rx Instructions:
Take for 1 week then STOP
ezetimibe [Zetia] 10 mg Tablet
10 mg PO DAILY Qty: 0 0RF
Referrals:
UNKNOWN - PT DOES,NOT KNOW [Family Provider] -
Discharge Date and Time
Print Language: MOHAWK
--- NOTE | 2025-01-25 09:05 | CON.VAS ---
Addendum entered and electronically signed by Paul Luther III, MD 01/25/25 09:54:
Patient is known to the vascular surgery service
Right upper extremity brachiobasilic arteriovenous fistula in August 2024
Prolonged bleeding noted after dialysis sessions for several weeks
Significant bleeding with needle manipulation at dialysis session this morning
He did not complete the dialysis session and came to the ED
On physical examination there were 2 needle cannulation sites with brisk pulsatile bleeding
Fistula is pulsatile
Able to control bleeding with 2 interrupted Prolene sutures, one at each site
Hemostasis achieved
On completion the fistula remained patent but was pulsatile throughout
He has a history of tunneled dialysis catheters on both sides
Given severity of bleeding event and lack of dialysis treatments since 01/22/2025 we will proceed with fistulogram and possible endovascular intervention today.
The technical aspects of this procedure were discussed with him in detail. The benefits and rationale for this approach were discussed with him in detail. Operative risks were discussed with him in detail including but not limited to bleeding,
infection, continued venous stenosis, continued problems with the fistula, failure of the fistula and the need for additional procedures. He expressed a clear understanding of our conversation and agrees to proceed with surgery as detailed above.
Paul Luther III, MD
[facility] [address] V[facility] Surgery
[phone] (ozpx)
Original Note:
Consultation
Consultation Request
Date/Time Consultation Performed: 01/25/2530
Requesting Provider: ED provider
Performing Provider: Shoshana Osei, [employer] SUPER[employer]OR-C for Paul Luther III, MD
Reason for Consultation: Right upper extremity AVF active bleeding
Medical History
-
Chief Complaint: Controlled active bleeding from right upper extremity AV fistula
History of Present Illness:
This is a 69-year-old male with significant past medical history for peripheral arterial disease, COPD, diabetes, ESRD, CAD, CHF, TIA, hypertension, paroxysmal atrial fibrillation, and MD who presents to [facility] from HD access site with
reports of active bleeding from right upper extremity AV fistula following attempted cannulize for HD session today. Patient notes that he is experiencing prolonged bleeding following HD sessions for past 2 to 3 weeks roughly, he did reach out to
our office this past Saturday (01/22/25), and he had an outpatient follow-up established with ultrasound. However, when HD nurse attempted to access his right upper extremity AV fistula today they noted immediate uncontrolled bleeding, mostly never
attempted HD session and immediately activated EMS for transport to [facility]. Patient offers no other complaints other than recent prolonged bleeding at right upper extremity AV fistula. He was noted to have active bleeding at 2
puncture sites, control was obtained with 2 sutures. Patient endorses that he has not eaten or drank today. Patient is well-known to our service for multiple surgical interventions for peripheral arterial disease and creation of AV fistula please
see surgical history below.
Vascular surgical history below:
05/10/2016- Right lower extremity arteriogram, right superficial femoral artery and popliteal artery angioplasty and stent using a 6 x 100 Zilver PTX and a 6 x [address] Olvin Willams
10/27/2018- Left lower extremity arteriogram, angioplasty of the left SFA and popliteal artery with a [address] Olvin Willams
04/11/2019- Left femoral endarterectomy (common femoral, SFA, origin of profunda femoris artery). Left femoral to above knee popliteal artery bypass with 8 mm ring Propaten graft with Dr. Fantasma Atkinson
09/13/2023- Creation of left upper arm AV graft for hemodialysis Dr. Paul Luther III
11/14/2023- Left upper extremity fistulogram and central venogram Dr. Fantasma Atkinson
02/27/2024- Left upper extremity fistulogram and central venogram, balloon angioplasty and stent placement of venous anastomotic/central venous stenosis with 10 mm x 4 cm Cook 635 stent, balloon angioplasty and stent placement with covered [place]
Viabahn 8 mm x 5 cm stent with an AV graft Dr. Fantasma Atkinson
07/30/2024- Left upper extremity fistulogram and central venogram, balloon angioplasty of central venous stenosis with [address] Fantasma Atkinson
09/24/2024- Right upper extremity brachiobasilic arteriovenous fistula creation with single stage basilic vein transposition, ligation of left upper extremity AV graft Dr. Fantasma Atkinson
Past Medical History
Past Medical History: Arrhythmias (Right bundle branch block, paroxysmal atrial fibrillation), CAD (CABG �3 2009), CHF, HTN, NIDDM, Renal Failure (ESRD ([facility] HD schedule)) and Other (Strep bacteremia, anemia, hyperparathyroidism, obstructive sleep
apnea, peripheral arterial disease, CML, TIA, frontal subdural hematoma 2018 (following traumatic fall))
Past Surgical History: Cardiac (CABG, PCI) and Orthopedic (Laminectomy, right total knee replacement, left total knee replacement)
Social History
Tobacco: Former Smoker
Personal:
Living: With Family
Allergies / Home Medications
Allergy/AdvReac Type Severity Reaction Status Date / Time
Iodinated Contrast Media Allergy Nausea / Verified 11/23/24 10:45
Vomiting,
'panic
attack'
latex Allergy Itching Verified 11/23/24 10:45
morphine Allergy Itching Verified 11/23/24 10:45
�Medication �Instructions �Recorded �Confirmed �Type
melatonin 5 mg tablet 5 mg PO HS sleep 04/06/19 11/23/24 History
atorvastatin 80 mg tablet 80 mg PO HS High cholesterol 01/25/21 11/23/24 History
calcium acetate 667 mg tablet 1,334 mg PO TID 02/19/24 11/23/24 History
clopidogrel 75 mg tablet (Plavix) 75 mg PO DAILY Blood Clot 02/19/24 11/23/24 History
Prevention/Tx
coQ10 (ubiquinol) 200 mg capsule 200 mg PO DAILY Supplement 02/19/24 11/23/24 History
semaglutide 0.25 mg or 0.5 mg (2 0.25 mg SC GRIMM Diabetes 02/19/24 11/23/24 History
mg/3 mL) subcutaneous pen injector
(Ozempic)
sertraline 100 mg tablet 100 mg PO BID Mental Health 02/19/24 11/23/24 History
vitamin B complex-vitamin C-folic 1 tab PO MOWEFR Supplement 02/19/24 11/23/24 History
acid 0.8 mg tablet (Nephro-Michelle)
amlodipine 2.5 mg tablet 2.5 mg PO BID #60 tabs 02/28/24 11/23/24 Rx
apixaban 5 mg tablet (Eliquis) 5 mg PO BID #60 tabs 02/28/24 11/23/24 Rx
acetaminophen 325 mg tablet 650 mg PO Q4HPRN PRN mild 05/25/24 11/23/24 History
pain/fever >100
albuterol sulfate 90 mcg/actuation 2 puff inhalation R Q4HPRN PRN sob 05/25/24 11/23/24 History
aerosol inhaler
calcium carbonate (Antacid 2 tab PO Q4HPRN PRN heartburn #0 06/25/24 11/23/24 Rx
Extra-Strength) tabs
quercetin 500 mg capsule 500 mg PO DAILY Supplement 07/01/24 11/23/24 History
methylphenidate HCl 10 mg tablet 30 mg PO DAILY 07/07/24 11/23/24 History
pantoprazole 40 mg tablet,delayed 40 mg PO DAILY PRN gerd 07/23/24 11/23/24 History
release
amiodarone 200 mg tablet 200 mg PO DAILY 09/23/24 11/23/24 History
aripiprazole 2 mg tablet 2 mg PO DAILY 09/23/24 11/23/24 History
metoprolol succinate 25 mg 12.5 mg PO DAILY 09/23/24 11/23/24 History
tablet,extended release 24 hr
lorazepam 1 mg tablet 1 mg PO TID 10/28/24 11/23/24 History
oxycodone 10 mg tablet 10 mg PO BIDPRN PRN pain 10/29/24 11/23/24 History
ascorbic acid (vitamin C) 500 mg 500 mg PO DAILY 11/03/24 11/23/24 History
tablet (Vitamin C)
aspirin 81 mg chewable tablet 81 mg PO DAILY #1 tab 11/04/24 11/23/24 Rx
ezetimibe 10 mg tablet (Zetia) 10 mg PO DAILY High Cholesterol #0 11/04/24 11/23/24 Rx
tabs
Review of Systems
-
History Source: Patient
Constitutional: Reports No Symptoms
EENT: Reports No Symptoms
Respiratory: Reports No Symptoms
Cardiac: Reports No Symptoms
Vascular: Reports Other (Prolonged bleeding from right upper extremity AV fistula following HD sessions and currently actively bleeding today)
Abdomen/GI: Reports No Symptoms
: Reports No Symptoms
Musculoskeletal: Reports No Symptoms
Skin: Reports No Symptoms
Neurological: Reports No Symptoms
Endocrine: Reports No Symptoms
Physical Exam
Vital Signs
Temp Pulse Resp BP Pulse Ox
98.2 F 76 18 145/89 100
01/25/25 08:23 01/25/25 08:23 01/25/25 08:23 01/25/25 08:23 01/25/25 08:23
Physical Exam
General: No Apparent Distress
HEENT: Normocephalic, Anicteric and Atraumatic
Cardiac: Negative JVD
GI: Soft, Non Tender and Non Distended
Skin: Warm and Other (Right upper extremity AV fistula with positive thrill, noted active bleeding from 2 puncture sites, hemostasis obtained following placement of stitches x 2, right radial +1 palpable, right hand warm)
Neuro: AO x 3
Assessment / Plan
-
Assessment: 69-year-old male with reports of prolonged bleeding following HD at right upper extremity AV fistula, presents to ED today with active bleeding from 2 puncture sites, hemostasis obtained following placement of 2 skin sutures, suspect a
vein stenosis attributing to prolonged bleeding
Plan:
Admit to hospitalist for follow-up of missed HD session and management of chronic comorbidities
Urgent fistulogram to evaluate why he is experiencing prolonged bleeding/uncontrolled bleeding today
Continue n.p.o. status
Will administer Solu-Cortef and Benadryl for reports of contrast allergy
[2025-01-25 09:24] LABS: % Basophils 0.6 % (0-2); % Immature Granulocytes 0.2 % (0-0.5); % Lymphocytes 25.7 % (20.5-51.1); % Neutrophils 59.5 % (42.2-75.2); Absolute Basophils 0.1 10^3/uL (0-0.2); Absolute Eosinophils 0.4 10^3/uL (0-0.7); Absolute Lymphocytes 2.4 10^3/uL (1.2-3.4); Absolute Monocytes 0.9 10^3/uL (0.1-0.6); Absolute Neutrophils 5.5 10^3/uL (1.4-6.5); Hematocrit 31.7 % (39.0-52.0); Hemoglobin 10.8 g/dL (13.0-18.0); Mean Corp Hgb Conc. 34.1 g/dL (33.0-37.0); Mean Corpuscular Volume 99.7 fL (80.0-94.0); Mean Platelet Volume 11.5 fL (7.4-10.4); Nucleated Red Blood Cells % 0 % (-); Platelet Count 196 10^3/uL (130-400); Red Blood Cell Count 3.18 10^6/uL (4.70-6.10); Red Cell Dist. Width 15.8 % (11.5-14.5); White Blood Cell Count 9.3 10^3/uL (4.8-10.8)
--- NOTE | 2025-01-25 09:32 | HPS.HSE ---
Family Physician
-
Family Physician: NOT KNOW UNKNOWN - PT DOES
Chief Complaint
-
acute bleeding from Fistula
History of Present Illness
69 y/o M hx of ESRD on HD (RUE Fistula), Afib, ASCVD, Type 2 DM, HLD, hx of CVA presenting to ER acutely from dialysis for bleeding AV fistula. Patients typical schedule is M/W/ and presented today for routine dialysis. During venipuncture for HD
access, patient immediately had 2 separate sites of acute abrupt bleeding. The site was clamped and patient was referred to ER. Pressure was applied in ER, did not control bleeding. Vascular was consulted and placed sutures acutely and planned an
urgent fistulogram today. Patient hemodynamically stable
Medical History
Past Medical History
Past Medical History: Reports Other (Arrthythmia (PAF), CAD, Cancer (CML), COPD, CVA, HTN, Hypercholesterolemia, NIDDM, OR, Renal failure (on dialysis), Other (Peripheral artery disease, left femoropopliteal bypass), Other (subdural hematoma) and
Other (R foot ulcer; FINESSE; obesity))
Past Surgical History: Reports Other (Cardiac (left fempop bypass) and Other (L femoral endarterectomy, popliteal angioplasty, dialysis graft left upper arm))
Social History
Tobacco: Smoker
Alcohol: None
Drug: Marijuana
Personal:
Living: With Family
Employment: Disabled
Family History
Family History: Not pertinent
Allergies / Home Medications
Allergies reflects when Allergies were last updated in [employer].
Home Medications with original date entered in [employer]
Allergy/Medication List:
Allergies
Allergy/AdvReac Type Severity Reaction Status Date / Time
Iodinated Contrast Media Allergy Nausea / Verified 11/23/24 10:45
Vomiting,
'panic
attack'
latex Allergy Itching Verified 11/23/24 10:45
morphine Allergy Itching Verified 12/30/24 10:45
Home Medications
melatonin 5 mg tablet 5 mg PO HS sleep 04/06/19
atorvastatin 80 mg tablet 80 mg PO HS High cholesterol 01/25/21
clopidogrel 75 mg tablet (Plavix) 75 mg PO DAILY Blood Clot Prevention/Tx 02/19/24
coQ10 (ubiquinol) 200 mg capsule 200 mg PO DAILY Supplement 02/19/24
semaglutide 0.25 mg or 0.5 mg (2 mg/3 mL) subcutaneous pen injector (Ozempic) 0.25 mg SC GRIMM Diabetes 02/19/24
sertraline 100 mg tablet 100 mg PO BID Mental Health 02/19/24
vitamin B complex-vitamin C-folic acid 0.8 mg tablet (Nephro-Michelle) 1 tab PO MOWEFR Supplement 02/19/24
amlodipine 2.5 mg tablet 2.5 mg PO BID #60 tabs 02/28/24
apixaban 5 mg tablet (Eliquis) 5 mg PO BID #60 tabs 02/28/24
acetaminophen 325 mg tablet 650 mg PO Q4HPRN PRN mild pain/fever >100 05/25/24
albuterol sulfate 90 mcg/actuation aerosol inhaler 2 puff inhalation R Q4HPRN PRN sob 05/25/24
methylphenidate HCl 10 mg tablet 30 mg PO DAILY 07/07/24
metoprolol succinate 25 mg tablet,extended release 24 hr 12.5 mg PO DAILY 09/23/24
lorazepam 1 mg tablet 1 mg PO TID 10/28/24
ascorbic acid (vitamin C) 500 mg tablet (Vitamin C) 500 mg PO DAILY 11/03/24
ezetimibe 10 mg tablet (Zetia) 10 mg PO DAILY High Cholesterol #0 tabs 11/04/24
Review of Systems
-
A 12 point ROS was completed and negative except as noted: Yes
Physical Exam
Vital Signs
Vital Signs
Temp Pulse Resp BP Pulse Ox
98.2 F 76 18 145/89 100
01/25/25 08:23 01/25/25 08:23 01/25/25 08:23 01/25/25 08:23 01/25/25 08:23
Physical Exam
General: No Apparent Distress
HEENT: NormoCephalic and Anicteric
Respiratory: Clear; No Wheezes
Cardiac: S1/S2 and Regular Rhythm
GI: Soft and Non Tender
Musculoskeletal: Other (RUE AV fistula with 2 sites of active bleeding)
Neuro: AO x 3
Hematologic/Lymphatic: No Lymphadenopathy
Psych: Calm
Laboratory Results
-
01/25/25 09:10
Data Reviewed
-
Lab Data: Labs Reviewed by me
Impression/Plan
-
Assessment:
Acute bleeding from RUE AV fistula due to routine venipuncture, exacerbated by Eliquis and Plavix
- Fistula placed end of August
- acute bleeding noted during routine HD today; clamped prior to ER arrival
- Vascular evaluated in ER, 2 stitches placed; bleeding acute stopped
- s/p Fistulogram urgent with Right upper extremity fistulogram, venogram, balloon angioplasty to venous outflow stenosis, and balloon angioplasty with stent placement to axillary vein stenosis
ESRD on HD
ESRD related anemia
- Nephrology consulted for HD orders
ASCVD (CAD, PAD, Carotid Disease, CVA / TIA) with Dyslipidemia
Parox A. Fib
- holding Eliquis/Plavix for bleeding; resume when cleared by Vascular
- continue statin
- continue metoprolol
Chronic HFpEF
- continue metoprolol
- volume control with dialysis
Essential Hypertension
- continue amlodipine, metoprolol
Diabetes Mellitus, Type II
- Suspect that this is becoming more well-controlled with ESRD and insulin retention
- Home medications currently include Ozempic; started on ISS with Accu-Cheks here
Anxiety/Depression/ADHD
- continue Abilify/Ritalin/Zoloft
HX of traumatic subdural hematoma
HX of CML
DVT ppx: SCDs
Code: Full
[2025-01-25 09:54] LABS: ALT (SGPT) 42 U/L (0-50); AST (SGOT) 20 U/L (17-59); Albumin 4.2 g/dl (3.5-5.0); Alkaline Phosphatase 174 U/L (38-126); Blood Urea Nitrogen 106 mg/dl (9-20); Calcium 8.9 mg/dl (8.4-10.2); Carbon Dioxide 20 mmol/L (22-30); Chloride 99 mmol/L (98-107); Glucose 100 mg/dl (70-99); Potassium 5.1 mmol/L (3.5-5.1); Sodium 137 mmol/L (135-145); Total Bilirubin 0.5 mg/dl (0.2-1.3); Total Protein 6.6 g/dl (6.3-8.2); eGFR 4.94
--- NOTE | 2025-01-25 11:01 | W.SUR.POST ---
Surgical Immediate Post Op
Note
Pre Op Diagnosis: Active bleeding following attempt at cannulation for HD via right upper extremity AV fistula
Post Op Diagnosis: Active bleeding following attempt at cannulation for HD via right upper extremity AV fistula
Procedure Performed: Right upper extremity fistulogram, venogram, balloon angioplasty to venous outflow stenosis, and balloon angioplasty with stent placement to axillary vein stenosis
Primary Surgeon: Paul Luther III, MD
Secondary Surgeons: N/A
Anesthesia: MAC
Estimated Blood Loss: 2 mL
Fluids: See anesthesia flowsheet
Drains/Shunts: N/A
Specimens/Cultures: N/A
Doppler/Duplex/Angio (Y/N): Y
Complications: None
Operative Findings: Successful treatment to venous outflow stenosis and axillary vein stenosis via endovascular, positive thrill following procedure at right extremity AV fistula, can attempt HD today via right upper extremity fistula
[2025-01-25 11:26] LABS: Glucose - Point of Care 76 mg/dl (70-99)
[2025-01-25] MEDS: TYLENOL 650 MG PO (12:37)
[2025-01-25] MEDS: ULTRAM 50 MG PO ×2 (14:32→22:08)
--- NOTE | 2025-01-25 14:35 | OR.RPT ---
Operative Report
Operative Report
Date of Operation: 01/25/2025
Pre Op Diagnosis:
1. Actively bleeding right upper extremity arteriovenous fistula
2. Prolonged bleeding from arteriovenous fistula at hemodialysis recently
Post Op Diagnosis:
1. Actively bleeding right upper extremity arteriovenous fistula
2. Prolonged bleeding from arteriovenous fistula at hemodialysis recently
Procedure:
1. Right upper extremity fistulogram
2. Central venogram
3. Balloon angioplasty of right basilic vein outflow stenosis (7 mm x 80 mm Lutonix drug-coated balloon)
4. Balloon angioplasty and stenting of right axillary vein stenosis (8 mm x 5 cm Viabahn stent graft)
5. Ultrasound guided percutaneous access to the right upper arm AV fistula
Surgeon: Paul Luther III, MD
Systems Navigator: Zak Stahl MD, PGY4
Anesthesia: Sedation/local
Complications: None
History and Indications for Procedure: 69-year-old male with right upper extremity brachiobasilic arteriovenous fistula. Noted to have prolonged bleeding following hemodialysis recently and presented to the emergency room this morning with active
pulsatile bleeding from the access. This was temporized in the emergency department and he was brought to the operating room for fistulogram and possible endovascular intervention.
Procedure in Detail: Paramjit Banuelos was correctly identified and placed supine on the operating table. After adequate induction of anesthesia the right arm was positioned, prepped and draped in the usual sterile fashion. Preoperative antibiotics were
administered. A timeout procedure was performed with the nursing and anesthesia staff confirming the patient�s identity as well as the nature and laterality of the procedure.
Intraoperative ultrasound was performed on the AV access. This was a brachiobasilic AV fistula. Ultrasound demonstrated a patent fistula.
I identified a puncture site along the proximal vein towards the arteriovenous anastomosis and infiltrated local anesthesia at this site. Under ultrasound guidance I accessed the fistula with a micropuncture needle facing towards the venous outflow
and placed the micropuncture sheath. I performed a fistulogram and central venogram which demonstrated the following:
Fistulogram: Patent fistula. Basilic vein with scattered areas of small pseudoaneurysms along the access length. Long length high-grade stenosis of the basilic venous outflow. Focal stenosis of the axillary vein.
Central venogram: Patent central veins with no high-grade stenosis identified
Endovascular intervention:
Systemic heparin was administered. A short 5 Fr sheath was placed. Under roadmap guidance a Bentson wire was used to cross the stenosis. I then brought a 7 mm x 80 mm drug-coated angioplasty balloon into position under roadmap guidance and centered
this across the stenosis. This was inflated to nominal pressure, held in place for 3 minutes and then slowly deflated over the wire. While the balloon was inflated I performed a reflux fistulogram demonstrating that the proximal basilic vein was
patent with no significant stenosis identified. There was reflux of contrast across a widely patent arteriovenous anastomosis. The brachial artery was patent. Subsequent fistulogram images demonstrated significant improvement in the treated
venous outflow segment with no significant residual stenosis identified. Under roadmap guidance we then brought into position a 7 mm x 40 mm angioplasty balloon and centered this across the axillary vein stenosis. The balloon was inflated to
nominal pressure before slowly deflating and retracting over the wire. I also used the 7 mm balloon to treat a focal stenosis in the basilic vein just proximal to the previously treated segment. Subsequent arteriogram demonstrated improvement in
the appearance of the basilic vein however there was significant residual stenosis identified in the axillary vein with concern for possible contrast extravasation.
I then upsized to a 7 Swiss sheath over a Bentson wire. I exchanged the wire out for a V18 wire. I then brought into position a 8 mm x 5 cm Viabahn stent graft. This was positioned across the axillary vein stenosis under roadmap guidance and
magnification view. The stent was deployed in the desired location. The stent was then profiled with the 7 mm angioplasty balloon.
Completion fistulogram demonstrated patent brachiobasilic arteriovenous fistula with brisk flow. Multiple small pseudoaneurysms were again demonstrated along the access length. Brisk flow through the venous outflow with no significant residual
stenosis identified. Widely patent Viabahn stent graft with no residual stenosis or extravasation identified.
Following the intervention the patient had a strong thrill in the access with significantly less pulsatility compared to pretreatment.
At the conclusion of the procedure a Monocryl suture was placed around the sheath puncture site. The sheath was removed and the suture secured. Hemostasis was achieved. A sterile dressing was applied.
The patient tolerated the procedure well and was taken to the PACU in stable condition
Attestation: I was present and responsible for the entire procedure
Signed:
Paul Luther III, MD
[facility] Vascular Surgery
[phone] ([phone])
[2025-01-25] MEDS: ATIVAN 1 MG PO ×2 (15:47→22:08)
--- NOTE | 2025-01-25 16:05 | W.CON.NEPH ---
Consultation
-
Date/Time Consultation Requested: 01/25/2025 3 PM
Date/Time Consultation Performed: 01/25/2025 4 PM
Requesting Provider: Dr. Allen
Performing Provider: Dr. De La O
Reason for Consultation: ESRD
Medical History
-
Chief Complaint: ESRD
History of Present Illness:
The patient is a 69-year-old male with a past medical history of end-stage renal disease secondary to diabetes who is maintained on a Saturday dialysis schedule at [facility]. He is maintained on insulin therapy for his
diabetes with multiple microvascular complications including diabetic neuropathy. He is maintained on calcium acetate for his hyperphosphatemia and a multidrug regimen for his hypertension.He is chronically anticoagulated with Eliquis for his
atrial fibrillation . The patient presented to the hospital today because of prolonged bleeding from the AV fistula and to being on dialysis. He did not receive any significant treatment. In the hospital he was taken to the operating room and
underwent AV fistulogram with angioplasty of outflow stenoses.
Past Medical History
Stenting of vein graft to obtuse marginal October 24, 2023
Strep bacteremia now off antibiotics
diastolic CHF
ESRD MWF ([facility])
Metabolic acidosis
Hyperkalemia
Anemia, CKD +/- functional iron deficiency
Secondary hyperparathyroidism with hyperphosphatemia
Diabetes mellitus with multiple microvascular complications including profound nephrotic proteinuria
COPD
Obstructive sleep apnea/CPAP
Diabetic polyneuropathy
CAD with CABG �2009
LAD stent 2015
Left SFA and popliteal angioplasty 2017
Left femoral to [id number] popliteal bypass 2018
Right SFA and popliteal angioplasty/stenting 2015
Hypertension
Right bundle branch block
CML
Hyperlipidemia
TIA 2016
Frontal subdural hematoma 2018 (traumatic fall)
Long-standing smoker
Multiple laminectomy
Right total knee replacement
Left total knee replacement
Left upper arm AV graft September 13, 2023 (Dr. Luther)
NSTEMI August 2023 (troponin 0.51)
Hyperphosphatemia
Chronic ambulatory despite
Social History
Tobacco: Former Smoker
Alcohol: None
Personal:
Living: With Family
Family History
No chronic kidney disease
Allergies / Home Medications
Allergy/AdvReac Type Severity Reaction Status Date / Time
Iodinated Contrast Media Allergy Nausea / Verified 11/23/24 10:45
Vomiting,
'panic
attack'
latex Allergy Itching Verified 11/23/24 10:45
morphine Allergy Itching Verified 11/23/24 10:45
�Medication �Instructions �Recorded �Confirmed �Type
melatonin 5 mg tablet 5 mg PO HS sleep 04/06/19 01/25/25 History
atorvastatin 80 mg tablet 80 mg PO HS High cholesterol 01/25/21 01/25/25 History
clopidogrel 75 mg tablet (Plavix) 75 mg PO DAILY Blood Clot 02/19/24 01/25/25 History
Prevention/Tx
coQ10 (ubiquinol) 200 mg capsule 200 mg PO DAILY Supplement 02/19/24 01/25/25 History
semaglutide 0.25 mg or 0.5 mg (2 0.25 mg SC GRIMM Diabetes 02/19/24 01/25/25 History
mg/3 mL) subcutaneous pen injector
(Ozempic)
sertraline 100 mg tablet 100 mg PO BID Mental Health 02/19/24 01/25/25 History
vitamin B complex-vitamin C-folic 1 tab PO MOWEFR Supplement 02/19/24 01/25/25 History
acid 0.8 mg tablet (Nephro-Michelle)
amlodipine 2.5 mg tablet 2.5 mg PO BID #60 tabs 02/28/24 01/25/25 Rx
apixaban 5 mg tablet (Eliquis) 5 mg PO BID #60 tabs 02/28/24 01/25/25 Rx
acetaminophen 325 mg tablet 650 mg PO Q4HPRN PRN mild 05/25/24 01/25/25 History
pain/fever >100
albuterol sulfate 90 mcg/actuation 2 puff inhalation R Q4HPRN PRN sob 05/25/24 01/25/25 History
aerosol inhaler
methylphenidate HCl 10 mg tablet 30 mg PO DAILY 07/07/24 01/25/25 History
metoprolol succinate 25 mg 12.5 mg PO DAILY 09/23/24 01/25/25 History
tablet,extended release 24 hr
lorazepam 1 mg tablet 1 mg PO TID 10/28/24 01/25/25 History
ascorbic acid (vitamin C) 500 mg 500 mg PO DAILY 11/03/24 01/25/25 History
tablet (Vitamin C)
ezetimibe 10 mg tablet (Zetia) 10 mg PO DAILY High Cholesterol #0 11/04/24 01/25/25 Rx
tabs
Review of Systems
-
No chest pain or shortness of breath. AV fistula bleeding has subsided
All other systems: Negative unless noted
Physical Exam
Vital Signs
Vital Signs
Temp Pulse Resp BP Pulse Ox
97.7 F 52 17 157/58 99
01/25/25 15:45 01/25/25 15:45 01/25/25 15:45 01/25/25 15:45 01/25/25 15:45
Lab Results
WBC 9.3 10^3/uL (4.8-10.8) 01/25/25 09:10
RBC 3.18 10^6/uL (4.70-6.10) L 01/25/25 09:10
Hgb 10.8 g/dL (13.0-18.0) L 01/25/25 09:10
Hct 31.7 % (39.0-52.0) L 01/25/25 09:10
Plt Count 196 10^3/uL (130-400) 01/25/25 09:10
Sodium 137 mmol/L (135-145) 01/25/25 09:10
Potassium 5.1 mmol/L (3.5-5.1) 01/25/25 09:10
Chloride 99 mmol/L (98-107) 01/25/25 09:10
Carbon Dioxide 20 mmol/L (22-30) L 01/25/25 09:10
BUN 106 mg/dl (9-20) H* 01/25/25 09:10
Creatinine 10.4 mg/dL (0.7-1.3) H* 01/25/25 09:10
eGFR 4.94 01/25/25 09:10
Glucose 100 mg/dl (70-99) H 01/25/25 09:10
Calcium 8.9 mg/dl (8.4-10.2) 01/25/25 09:10
Albumin 4.2 g/dl (3.5-5.0) 01/25/25 09:10
Laboratory Tests
11/23/24
12:12
Hgb 10.2 L
BUN 47 H
Creatinine 4.9 H*
Physical Exam
Patient is awake alert oriented and in no distress. Mood and affect were pleasant, insight and judgment were good. Pupils are equal round and reactive to light, extraocular movements are intact, sclera were anicteric. Hearing was normal, ears and
nose are intact. Oropharynx was clear. Neck was supple with trachea midline and no thyromegaly. Heart was regular rate and rhythm without rubs. Lower extremities without edema. Lungs were clear to auscultation bilaterally and with normal
excursion. Abdomen was soft, nontender, with normal active bowel sounds, and no hepatosplenomegaly. Skin was without rash and with normal turgor. Right upper extremity AV fistula with good thrill and bruit
Data Reviewed
-
Labs: Labs Reviewed by me
Old Records: Reviewed
Assessment/Plan
-
Impression:
ESRD MWF
Status post elective cardiac catheterization with stenting
PAF now in AFIB
DM
CABG hx
Anemia
PVD
LUE AVG/CVC
Hyperphosphatemia
HTN
Diabetic neuropathy
Secondary hyperparathyroidism
Coronary artery disease with previous stenting
Left anterior chest wall dialysis catheter
Angioplasty outflow stenoses AV fistula
Plan:
HD today
Appropriate fluid restriction and dietary restriction
Maintain current antihypertensives for blood pressure control
--- NOTE | 2025-01-25 17:29 | W.PN.NEPH.HD ---
Assessment
-
Seen on HD. no complaints. VSS, access ok
Progress Note - Hemodialysis
-
Date of Service: January 25, 2025
Duration: 30 minutes and 3 hours
Potassium Bath: 2
Calcium Bath: 2.5
Opti-Dialyzer: 160
Ultrafiltration: Other (2.5kg)
Blood Flow: 400
Dialysate Flow: 600
Heparin: no
EPO: no
[2025-01-25] MEDS: MANNITOL 25% 12.5 GRAMS IV (19:50)
[2025-01-25] MEDS: NORVASC 2.5 MG PO (22:07)
[2025-01-25] MEDS: ZOLOFT 100 MG PO (22:07)
[2025-01-25] MEDS: MELATONIN 5 MG PO (22:08)
[2025-01-25] MEDS: LIPITOR 80 MG PO (22:08)
--- NOTE | 2025-01-26 01:41 | PTCARENOTE ---
HD finished this evening, palpable right ulnar pulse. RUE fistula w +Bruit/thrill. No hematoma or bleeding noted, VSS.
[2025-01-26 03:00] VITALS: BP 145/71
[2025-01-26 06:00] VITALS: BMI 28.4
[2025-01-26 07:03] VITALS: BP 147/72
[2025-01-26] MEDS: ZETIA 10 MG PO (07:46)
[2025-01-26] MEDS: ATIVAN 1 MG PO ×2 (07:46→15:14)
[2025-01-26] MEDS: ZOLOFT 100 MG PO (07:46)
[2025-01-26] MEDS: RITALIN 30 MG PO (07:46)
[2025-01-26] MEDS: NORVASC 2.5 MG PO (07:47)
[2025-01-26] MEDS: TOPROL XL 12.5 MG PO (07:47)
[2025-01-26] MEDS: ULTRAM 50 MG PO (07:51)
[2025-01-26 08:10] LABS: % Basophils 0.2 % (0-2); % Eosinophils 0.5 % (0-6); % Immature Granulocytes 0.5 % (0-0.5); % Lymphocytes 18.8 % (20.5-51.1); % Monocytes 10.3 % (1.7-9.3); % Neutrophils 69.7 % (42.2-75.2); Absolute Eosinophils 0.1 10^3/uL (0-0.7); Absolute Immature Granulocytes 0.1 10^3/uL (0-0.05); Absolute Lymphocytes 2.5 10^3/uL (1.2-3.4); Absolute Monocytes 1.3 10^3/uL (0.1-0.6); Absolute Neutrophils 9.1 10^3/uL (1.4-6.5); Hematocrit 26.6 % (39.0-52.0); Hemoglobin 9.2 g/dL (13.0-18.0); Mean Corp Hgb Conc. 34.6 g/dL (33.0-37.0); Mean Corpuscular Hgb 33.7 pg (27.0-31.0); Mean Corpuscular Volume 97.4 fL (80.0-94.0); Nucleated Red Blood Cells % 0 % (-); Platelet Count 207 10^3/uL (130-400); Red Blood Cell Count 2.73 10^6/uL (4.70-6.10); Red Cell Dist. Width 16.2 % (11.5-14.5)
[2025-01-26 09:06] LABS: Blood Urea Nitrogen 63 mg/dl (9-20); Calcium 8.8 mg/dl (8.4-10.2); Carbon Dioxide 23 mmol/L (22-30); Chloride 95 mmol/L (98-107); Estimated Creatinine Clearance 10 ml/min; Glucose 85 mg/dl (70-99); Potassium 4.5 mmol/L (3.5-5.1); Sodium 134 mmol/L (135-145); eGFR 8.36
[2025-01-26 11:19] VITALS: BP 106/65
--- NOTE | 2025-01-26 12:09 | CM ---
Addendum entered by Amaya Bustos 01/26/25 14:27:
Flow sheet and clinicals faxed to [facility]
DC order noted
Original Note:
CM met with pt bedside
Pt resides with his spouse in a 2SH with ramp entrance
1st floor set up
Pt ambulates with a WW utilizes as dressing stick and grabbers fir dresisng support
He has a shower imtiaz grab bars and dexcom
Pt attends outpt HF at [facility] MWF 0620
Spouse transports there and friends transports home
Pt denied financial insecurities but noted the cost of Eliquis and Ozempic are pricey
Pt has hx with [facility] and [facility]
PCP- Placido Sanchez
Rx- [facility]
POD#1 fistulagram
Pt indep in room with WW- nursing confirms
Discharge Disposition- home, anticipate no needs
[facility] Fax- [phone]
--- NOTE | 2025-01-26 13:09 | W.PN.HOSP.TC ---
Today's Communication/Plan
-
dc to home
Assessment / Plan
Assessment / Plan
Assessment:
Acute bleeding from RUE AV fistula due to routine venipuncture, exacerbated by Eliquis and Plavix
- Fistula placed end august
- acute bleeding noted during routine HD today; clamped prior to ER arrival
- Vascular evaluated in ER, 2 stitches placed; bleeding acute stopped
- s/p Fistulogram urgent with Right upper extremity fistulogram, venogram, balloon angioplasty to venous outflow stenosis, and balloon angioplasty with stent placement to axillary vein stenosis
ESRD on HD
ESRD related anemia
- s/p HD 01/25. resume usual OP HD schedule
ASCVD (CAD, PAD, Carotid Disease, CVA / TIA) with Dyslipidemia
Parox A. Fib
- resume Eliquis/Plavix; cleared by vascular
- continue statin
- continue metoprolol
Chronic HFpEF
- continue metoprolol
- volume control with dialysis
Essential Hypertension
- continue amlodipine, metoprolol
Diabetes Mellitus, Type II
- Suspect that this is becoming more well-controlled with ESRD and insulin retention
- Home medications currently include Ozempic; started on ISS with Accu-Cheks here
Anxiety/Depression/ADHD
- continue Abilify/Ritalin/Zoloft
HX of traumatic subdural hematoma
HX of CML
DVT ppx: SCDs
Code: Full
More than 30 minutes spent in discharge including
Final examination of the patient
Summarizing hospital stay
Instructions for continuing care to all relevant caregivers
Preparation of discharge records, prescriptions, and referral forms
Total time spent (in minutes): 41
Anticipated Discharge: Today
Subjective/Interval History
-
Date of Service: January 26, 2025
resting comfortably, no complaints at present
Objective Data
-
Labs:
Laboratory Results
01/26/25
07:11
WBC 13.0 H
Hgb 9.2 L
Hct 26.6 L
Plt Count 207
Sodium 134 L
Potassium 4.5
Chloride 95 L
Carbon Dioxide 23
BUN 63 H
Creatinine 6.7 H*
Glucose 85
Calcium 8.8
Vital Signs:
Vital Signs
Temp Pulse Resp BP Pulse Ox
97.6 F 86 17 106/65 98
01/26/25 11:19 01/26/25 11:19 01/26/25 11:19 01/26/25 11:19 01/26/25 11:19
I&O
01/25/25 01/26/25 01/27/25
06:59 06:59 06:59
Intake Total 700 / 700
Output Total 175 / 175
Balance 525 / 525
Physical Exam
-
General: No Apparent Distress
HEENT: Normocephalic and Atraumatic
Respiratory: Negative Wheezes
Cardiac: Regular Rhythm and S1/S2
GI: Soft
Genito-urinary: No Costovertebral Tender
Neuro: AO x 3
Hematologic / Lymphatic: No Lymphadenopathy
Psych: Calm
Data Reviewed
-
Total Time Spent with Patient (in minutes): 41
Labs: Labs Reviewed by me
--- NOTE | 2025-01-26 13:12 | W.DS.TRANS ---
DC Summary - [employer]
-
Discharge Instructions:
Discharge Diagnosis/Procedures bleeding AV Fistula site s/p Right upper
extremity fistulogram, venogram, balloon
angioplasty to venous outflow stenosis, and
balloon angioplasty with stent placement to
axillary vein stenosis 3/3
Diet As tolerated,2 Gram Sodium,Diabetic, Carb
Controlled
Additional Diets 2 gram potassium restriction
Activity No strenuous activity
Driving Restrictions No driving for 24 hours
Bathing Restrictions OK to Shower
Instructions:
Stand-Alone Forms: DC Instr - Vascular OR
Changes to Home Medications: No
Discharge Medications:
DC Medications w/original date entered in [employer]
melatonin 5 mg tablet 5 mg PO HS sleep 04/06/19
atorvastatin 80 mg tablet 80 mg PO HS High cholesterol 01/25/21
clopidogrel 75 mg tablet (Plavix) 75 mg PO DAILY Blood Clot Prevention/Tx 02/19/24
coQ10 (ubiquinol) 200 mg capsule 200 mg PO DAILY Supplement 02/19/24
semaglutide 0.25 mg or 0.5 mg (2 mg/3 mL) subcutaneous pen injector (Ozempic) 0.25 mg SC GRIMM Diabetes 02/19/24
sertraline 100 mg tablet 100 mg PO BID Mental Health 02/19/24
vitamin B complex-vitamin C-folic acid 0.8 mg tablet (Nephro-Michelle) 1 tab PO MOWEFR Supplement 02/19/24
amlodipine 2.5 mg tablet 2.5 mg PO BID #60 tabs 02/28/24
apixaban 5 mg tablet (Eliquis) 5 mg PO BID #60 tabs 02/28/24
acetaminophen 325 mg tablet 650 mg PO Q4HPRN PRN mild pain/fever >100 05/25/24
albuterol sulfate 90 mcg/actuation aerosol inhaler 2 puff inhalation R Q4HPRN PRN sob 05/25/24
methylphenidate HCl 10 mg tablet 30 mg PO DAILY 07/07/24
metoprolol succinate 25 mg tablet,extended release 24 hr 12.5 mg PO DAILY 10/30/24
lorazepam 1 mg tablet 1 mg PO TID 10/28/24
ascorbic acid (vitamin C) 500 mg tablet (Vitamin C) 500 mg PO DAILY 11/03/24
ezetimibe 10 mg tablet (Zetia) 10 mg PO DAILY High Cholesterol #0 tabs 11/04/24
Home Medication Changes
Pending Results: No
Total time spent discharging patient (in min): 41
[2025-01-26 15:13] VITALS: BP 133/65
[2025-01-26] MEDS: TYLENOL 650 MG PO (15:14)
--- NOTE | 2025-01-26 16:01 | W.PN.NEPH.PH ---
Today's Communication / Plan
-
d/c
Assessment/Plan
-
Impression:
ESRD MWF
Status post elective cardiac catheterization with stenting
PAF now in AFIB
DM
CABG hx
Anemia
PVD
LUE AVG/CVC
Hyperphosphatemia
HTN
Diabetic neuropathy
Secondary hyperparathyroidism
Coronary artery disease with previous stenting
Left anterior chest wall dialysis catheter
Angioplasty outflow stenoses AV fistula
Plan:
AVF no further bleeding s/p angioplasty and stent
hemodynamically stable
ok for d/c
will return HD unit at [place] tomorrow
-
-
Date of Service: January 26, 2025
CC / HPI / ROS
-
Chief Complaint:
ESRD
History of Present Illness:
tolerated HD well on 01/25
no bleeding at AVF
BP stable, no fever
Review of Systems:
no cp or sob
no n/v
some soreness at AVF
Labs
-
Labs:
WBC 13.0 10^3/uL (4.8-10.8) H 01/26/25 07:11
RBC 2.73 10^6/uL (4.70-6.10) L 01/26/25 07:11
Hgb 9.2 g/dL (13.0-18.0) L 01/26/25 07:11
Hct 26.6 % (39.0-52.0) L 01/26/25 07:11
Plt Count 207 10^3/uL (130-400) 01/26/25 07:11
Sodium 134 mmol/L (135-145) L 01/26/25 07:11
Potassium 4.5 mmol/L (3.5-5.1) 01/26/25 07:11
Chloride 95 mmol/L (98-107) L 01/26/25 07:11
Carbon Dioxide 23 mmol/L (22-30) 01/26/25 07:11
BUN 63 mg/dl (9-20) H 01/26/25 07:11
Creatinine 6.7 mg/dL (0.7-1.3) H* 01/26/25 07:11
eGFR 8.36 01/26/25 07:11
Glucose 85 mg/dl (70-99) 01/26/25 07:11
Calcium 8.8 mg/dl (8.4-10.2) 01/26/25 07:11
Albumin 4.2 g/dl (3.5-5.0) 01/25/25 09:10
Physical Exam
-
Vital Signs:
Vital Signs
Temp Pulse Resp BP Pulse Ox
98.0 F 87 16 133/65 98
01/26/25 15:13 01/26/25 15:13 01/26/25 15:13 01/26/25 15:13 01/26/25 15:13
Cardiovascular:: Regular rate and rhythm
Respiratory:: Bilateral: CTA
Lung Excursion:: Normal
Abdomen:: Nontender and Soft
Extremity Edema:: None: Bilateral:
Luther Catheter: No
== END 2025-01-26 16:59 | disposition home or self-care (01) | DRG 252 ==
LOC: 2 SOUTH 10:56
PROVIDERS: ADMITTING PHYSICIAN Internal Medicine; CONSULT PHYSICIAN Specialist; CONSULT PHYSICIAN Surgery Vascular Surgery; EMERGENCY PHYSICIAN Student in an Organized Health Care Education/Training Program
PROC: B51W1ZZ Fluoroscopy of Dialysis Shunt/Fistula using Low Osmolar Contrast (ICD-10-PCS; 2025-01-25)
PROC: 0X380ZZ Control Bleeding in Right Upper Arm, Open Approach (ICD-10-PCS; 2025-01-25)
PROC: 057 Upper Veins, Dilation (ICD-10-PCS; 2025-01-25)
PROC: 05773DZ Dilation of Right Axillary Vein with Intraluminal Device, Percutaneous Approach (ICD-10-PCS; 2025-01-25)
PROC: 5A1D70Z Performance of Urinary Filtration, Intermittent, Less than 6 Hours Per Day (ICD-10-PCS; 2025-01-25)
DX: T82.838A Hemorrhage due to vascular prosthetic devices, implants and grafts, initial encounter (principal); N18.6 End stage renal disease; I13.2 Hypertensive heart and chronic kidney disease with heart failure and with stage 5 chronic kidney disease, or end stage renal disease; I50.32 Chronic diastolic (congestive) heart failure; N25.81 Secondary hyperparathyroidism of renal origin; D68.32 Hemorrhagic disorder due to extrinsic circulating anticoagulants; Y84.1 Kidney dialysis as the cause of abnormal reaction of the patient, or of later complication, without mention of misadventure at the time of the procedure; E11.22 Type 2 diabetes mellitus with diabetic chronic kidney disease; Z99.2 Dependence on renal dialysis; F90.9 Attention-deficit hyperactivity disorder, unspecified type; F32.A Depression, unspecified; F41.9 Anxiety disorder, unspecified; I25.10 Atherosclerotic heart disease of native coronary artery without angina pectoris; E78.00 Pure hypercholesterolemia, unspecified; I48.0 Paroxysmal atrial fibrillation; Z79.01 Long term (current) use of anticoagulants; Z86.73 Personal history of transient ischemic attack (TIA), and cerebral infarction without residual deficits; Z95.1 Presence of aortocoronary bypass graft; E83.39 Other disorders of phosphorus metabolism; E11.42 Type 2 diabetes mellitus with diabetic polyneuropathy; E11.51 Type 2 diabetes mellitus with diabetic peripheral angiopathy without gangrene; Z96.653 Presence of artificial knee joint, bilateral; Z91.041 Radiographic dye allergy status; Z91.040 Latex allergy status; Z88.5 Allergy status to narcotic agent; Z79.899 Other long term (current) drug therapy; Z79.02 Long term (current) use of antithrombotics/antiplatelets; K21.9 Gastro-esophageal reflux disease without esophagitis; Z79.82 Long term (current) use of aspirin; F17.200 Nicotine dependence, unspecified, uncomplicated; G47.33 Obstructive sleep apnea (adult) (pediatric); J44.9 Chronic obstructive pulmonary disease, unspecified; E66.9 Obesity, unspecified; Z79.4 Long term (current) use of insulin; D50.9 Iron deficiency anemia, unspecified; I25.2 Old myocardial infarction; D63.1 Anemia in chronic kidney disease; Z79.85 Long-term (current) use of injectable non-insulin antidiabetic drugs; Z95.5 Presence of coronary angioplasty implant and graft; T82.858A Stenosis of other vascular prosthetic devices, implants and grafts, initial encounter; T45.515A Adverse effect of anticoagulants, initial encounter; T45.525A Adverse effect of antithrombotic drugs, initial encounter
CPT/HCPCS: 36903; 80048; 80053; 82962; 85025; 87070; 99291; C1725; C1769; C1874; C1894; G0257; P9047; Q9967

== ENCOUNTER → 2025-02-01 15:05 | Outpatient (REF) | payer MEDICARE, OTHER, SELFPAY | LOC: RAD 15:05 | PROVIDERS: ATTENDING PHYSICIAN Surgery Vascular Surgery; FAMILY PHYSICIAN Family Medicine | DX: Z99.2 Dependence on renal dialysis (principal); I77.0 Arteriovenous fistula, acquired | CPT/HCPCS: 93922; 93925 ==

== ENCOUNTER 2025-02-15 03:39 | Emergency (ER) | payer MEDICARE, OTHER, SELFPAY ==
[2025-02-15 03:47] VITALS: BP 184/96
[2025-02-15 04:35] VITALS: BP 150/69
[2025-02-15 04:36] VITALS: BP 150/69
[2025-02-15 04:37] VITALS: BMI 30.2
[2025-02-15 05:37] VITALS: BP 150/69
[2025-02-15 05:42] LABS: % Basophils 0.5 % (0-2); % Eosinophils 5.4 % (0-6); % Immature Granulocytes 0.3 % (0-0.5); % Lymphocytes 17.8 % (20.5-51.1); % Monocytes 10.7 % (1.7-9.3); % Neutrophils 65.3 % (42.2-75.2); Absolute Eosinophils 0.4 10^3/uL (0-0.7); Absolute Lymphocytes 1.2 10^3/uL (1.2-3.4); Absolute Monocytes 0.7 10^3/uL (0.1-0.6); Absolute Neutrophils 4.2 10^3/uL (1.4-6.5); Hematocrit 28.7 % (39.0-52.0); Hemoglobin 9.8 g/dL (13.0-18.0); Mean Corp Hgb Conc. 34.1 g/dL (33.0-37.0); Mean Corpuscular Hgb 35.4 pg (27.0-31.0); Mean Corpuscular Volume 103.6 fL (80.0-94.0); Mean Platelet Volume 11.2 fL (7.4-10.4); Nucleated Red Blood Cells % 0 % (-); Platelet Count 149 10^3/uL (130-400); Red Blood Cell Count 2.77 10^6/uL (4.70-6.10); Red Cell Dist. Width 15.6 % (11.5-14.5); White Blood Cell Count 6.5 10^3/uL (4.8-10.8)
[2025-02-15 06:15] LABS: ALT (SGPT) 52 U/L (0-50); AST (SGOT) 35 U/L (17-59); Alkaline Phosphatase 94 U/L (38-126); Blood Urea Nitrogen 77 mg/dl (9-20); Calcium 8.9 mg/dl (8.4-10.2); Carbon Dioxide 24 mmol/L (22-30); Chloride 101 mmol/L (98-107); Estimated Creatinine Clearance 8 ml/min; Glucose 87 mg/dl (70-99); Potassium 5.7 mmol/L (3.5-5.1); Sodium 138 mmol/L (135-145); Total Bilirubin 0.6 mg/dl (0.2-1.3); Total Protein 6.1 g/dl (6.3-8.2); eGFR 5.87
--- NOTE | 2025-02-15 06:46 | ED.GENMED ---
History of Present Illness
General
Chief Complaint: Breathing Problem
Source: patient
Time Seen by Provider: 02/15/25 04:30
History of Present Illness
History of Present Illness:
This is a 69-year-old male with a history of end-stage renal disease on dialysis who presents after he gained 12 pounds over the weekend. The patient states he has had some abdominal fullness. On my assessment he denies shortness of breath. No
leg swelling. States that he just feels like they have not taken enough fluid off for him. He is curious as to whether he can just stay to get dialyzed in the hospital. No fevers. No chest pain.
Past History
Past History
ED Past Medical History: Arrthythmia (PAF), CAD, Cancer (CML), COPD, CVA, HTN, Hypercholesterolemia, NIDDM, [place], Renal failure (on dialysis), Other (Peripheral artery disease, left femoropopliteal bypass), Other (subdural hematoma) and Other (R foot
ulcer; FINESSE; obesity)
ED Past Surgical History: Cardiac (left fempop bypass) and Other (L femoral endarterectomy, popliteal angioplasty, dialysis graft left upper arm)
Social History
Tobacco: Smoker
Alcohol: None
Drug: Marijuana
Personal:
Living: with family
Employment: Disabled
Family History
Family History: Diabetes and Other (reviewed and non-contributory)
Phy Exam
Physical Exam
Physical Exam:
CONSTITUTIONAL Patient alert and oriented to person, place and time. Well-appearing. Vital signs reviewed.
HEAD atraumatic, normocephalic.
EYES eyelids normal to inspection, Extraocular muscles intact, Conjunctiva normal, Sclera normal.
NECK normal range of motion, Trachea midline, no jugular venous distention.
RESPIRATORY CHEST No respiratory distress noted, Chest expansion equal, Bilateral breath sounds clear.
CARDIOVASCULAR regular rate and rhythm, Heart sounds normal.
ABDOMEN abdomen nontender, Bowel sounds normal. No distention.
BACK normal inspection, no obvious deformities
UPPER EXTREMITY range of motion normal, Motor strength normal, no cyanosis, no edema.
LOWER EXTREMITY range of motion normal, Motor strength normal, no cyanosis, no edema.
NEURO Speech normal, No focal motor deficits, Mcgehee coma scale 15, Memory normal, Cranial Nerves intact to screening exam.
SKIN skin warm, dry, and normal in color.
Scores
Heart Failure Risk
Heart Failure Risk Score: Not Applicable
Course
Orders/Labs/Results
Orders:
Orders
02/15/25 04:30
Electrocardiogram (*1) Urgent
Reason for Study: Shortness of Breath
EKG- Treatment ONCE
CR Chest - 2 Views Urgent
Comment:
Reason For Exam: sob
02/15/25 05:33
Complete Blood Count/With Diff Urgent
Comprehensive Metabolic Panel Urgent
Abnormal Lab Results
02/15/25
05:33
RBC 2.77 L 10^6/uL
(4.70-6.10)
Hgb 9.8 L g/dL
(13.0-18.0)
Hct 28.7 L %
(39.0-52.0)
MCV 103.6 H fL
(80.0-94.0)
MCH 35.4 H pg
(27.0-31.0)
RDW 15.6 H %
(11.5-14.5)
MPV 11.2 H fL
(7.4-10.4)
Absolute Monos (auto) 0.7 H 10^3/uL
(0.1-0.6)
Lymphocytes % 17.8 L %
(20.5-51.1)
Monocytes % 10.7 H %
(1.7-9.3)
Potassium 5.7 H mmol/L
(3.5-5.1)
BUN 77 H mg/dl
(9-20)
Creatinine 9.0 H* mg/dL
(0.7-1.3)
ALT 52 H U/L
(0-50)
Total Protein 6.1 L g/dl
(6.3-8.2)
02/15/25 05:33
02/15/25 05:33
Vital Signs
Initial and Last Documented VS:
Initial Vital Signs
Temp Pulse Resp BP
97.8 F 90 28 184/96
02/15/25 03:47 02/15/25 03:47 02/15/25 03:47 02/15/25 03:47
Last Documented Vital Signs
Temp Pulse Resp BP Pulse Ox
97.8 F 79 20 150/69 98
02/15/25 03:47 02/15/25 05:37 02/15/25 05:37 02/15/25 05:37 02/15/25 05:37
MDM/Problems Addressed
Differential Diagnosis Includes:
Volume overload, hyperkalemia, intra-abdominal process
MDM/Problems Addressed:
End-stage renal disease, hyperkalemia
Acute Exacerbation and/or Progression of Chronic Illness: HTN
*Radiology
Radiology exam reviewed: all reviewed NAD by ED Provider
*Pulse Oximetry
Patient hypoxic: no
*Critical Care Note
Total Time (30-74mins, 75-104mins- exclusive of procedures): Not Applicable
Data Reviewed
Source: patient
Further Testing Considered But Not Given:
Consider Kayexalate the patient is going go to dialysis today
Patient Management
Escalation/DeEscalation of care consider admission/obs:
Patient appears well. Really just needs dialysis. No emergency need but will need to go today. I did call his dialysis center. They will call him and arrange for him to come in later today. Patient is otherwise well-appearing and okay for
outpatient management
ED Attending Note
-
Portions of this chart may have been created with voice recognition software.� Occasional wrong word or��sound alike� substitutions may have occurred due to the inherent limitations of voice recognition software.
Discharge Plan
Departure
Patient Disposition: Home (Routine Discharge)
Date of Disposition: 02/15/25
Time of Disposition: 06:46
Patient with high blood pressure during this ER visit?: Yes
Discharge Problem:
Abdominal fullness, End-stage renal disease (ESRD)
Instructions: End-stage kidney disease (kidney failure)
Prescriptions:
No Action
melatonin 5 MG tablet
5 mg PO HS
atorvastatin 80 MG tablet
80 mg PO HS
sertraline 100 mg Tablet
100 mg PO BID
clopidogrel [Plavix] 75 mg Tablet
75 mg PO DAILY
Nephro-Michelle 0.8 mg Tablet
1 tab PO MOWEFR
Patient Comments:
patient had diaylsis yesterday 11/22/24 due to the holidays
coQ10 (ubiquinol) 200 mg Capsule
200 mg PO DAILY
Ozempic 0.25 mg or 0.5 mg (2 mg/3 mL) Pen Injector
0.25 mg SC GRIMM
Eliquis 5 mg Tablet
5 mg PO BID Qty: 60 0RF
amlodipine 2.5 mg Tablet
2.5 mg PO BID Qty: 60 2RF
acetaminophen 325 mg Tablet
650 mg PO Q4HPRN MDD 3000 mg PRN (Reason: mild pain/fever >100)
albuterol sulfate 90 mcg/actuation Hfa Aerosol Inhaler
2 puff INHALATION R Q4HPRN PRN (Reason: sob)
methylphenidate HCl 10 mg tablet
30 mg PO DAILY
metoprolol succinate 25 mg tablet extended release 24 hr
12.5 mg PO DAILY
lorazepam 1 mg tablet
1 mg PO TID
ascorbic acid (vitamin C) [Vitamin C] 500 mg Tablet
500 mg PO DAILY
ezetimibe [Zetia] 10 mg Tablet
10 mg PO DAILY Qty: 0 0RF
Referrals:
Placido Lora Jr., DO [Family Provider] -
Activity Restrictions/Additional Instructions:
Please be sure to get hemodialysis today. Return immediately for difficulty breathing, fevers or any other concerns. Please follow-up in the next 1 week
Interventions
Interventions:
*Risk Screen - Suicide Last Done: 02/15/25 04:40
*General Assessment Last Done: 02/15/25 04:39
*Neglect/Abuse Screening Last Done: 02/15/25 04:39
*ED- Fall Risk Assessment Last Done: 02/15/25 04:37
*ED COVID-19 Vaccine History Last Done: 02/15/25 04:38
ED- Cardiac Assessment Last Done: 02/15/25 04:42
ED- Pulmonary Assessment Last Done: 02/15/25 04:42
Discharge Date and Time
Print Language: SYRIAC
[2025-02-15 07:03] VITALS: BP 162/70
== END 2025-02-15 07:03 | disposition home or self-care (01) ==
LOC: EMR 03:39
PROVIDERS: EMERGENCY PHYSICIAN Emergency Medicine; FAMILY PHYSICIAN Family Medicine
DX: R06.02 Shortness of breath (principal); R63.5 Abnormal weight gain; I12.0 Hypertensive chronic kidney disease with stage 5 chronic kidney disease or end stage renal disease; N18.6 End stage renal disease; E11.22 Type 2 diabetes mellitus with diabetic chronic kidney disease; I25.10 Atherosclerotic heart disease of native coronary artery without angina pectoris; E78.00 Pure hypercholesterolemia, unspecified; E11.51 Type 2 diabetes mellitus with diabetic peripheral angiopathy without gangrene; E66.9 Obesity, unspecified; G47.33 Obstructive sleep apnea (adult) (pediatric); F17.200 Nicotine dependence, unspecified, uncomplicated; Z99.2 Dependence on renal dialysis; I25.2 Old myocardial infarction; Z85.6 Personal history of leukemia; Z88.5 Allergy status to narcotic agent; Z91.041 Radiographic dye allergy status; Z91.040 Latex allergy status
CPT/HCPCS: 99283; 71046; 80053; 85025

== ENCOUNTER 2025-02-26 12:42 | Emergency (ER) | payer MEDICARE, OTHER, SELFPAY ==
[2025-02-26 12:42] VITALS: BMI 29.4
[2025-02-26 12:46] VITALS: BP 137/78
[2025-02-26 13:00] VITALS: BP 121/74
[2025-02-26 13:03] LABS: % Basophils 0.9 % (0-2); % Eosinophils 6.1 % (0-6); % Immature Granulocytes 0.3 % (0-0.5); % Lymphocytes 25.4 % (20.5-51.1); % Monocytes 16.4 % (1.7-9.3); % Neutrophils 50.9 % (42.2-75.2); Absolute Basophils 0.1 10^3/uL (0-0.2); Absolute Eosinophils 0.4 10^3/uL (0-0.7); Absolute Lymphocytes 1.8 10^3/uL (1.2-3.4); Absolute Monocytes 1.1 10^3/uL (0.1-0.6); Absolute Neutrophils 3.5 10^3/uL (1.4-6.5); Hematocrit 38.2 % (39.0-52.0); Hemoglobin 13.3 g/dL (13.0-18.0); Mean Corp Hgb Conc. 34.8 g/dL (33.0-37.0); Mean Corpuscular Hgb 34.5 pg (27.0-31.0); Mean Corpuscular Volume 99.2 fL (80.0-94.0); Mean Platelet Volume 10.8 fL (7.4-10.4); Nucleated Red Blood Cells % 0 % (-); Platelet Count 213 10^3/uL (130-400); Red Blood Cell Count 3.85 10^6/uL (4.70-6.10); Red Cell Dist. Width 14.2 % (11.5-14.5); White Blood Cell Count 6.9 10^3/uL (4.8-10.8)
[2025-02-26 13:15] LABS: ALT (SGPT) 48 U/L (0-50); AST (SGOT) 36 U/L (17-59); Albumin 5.2 g/dl (3.5-5.0); Alkaline Phosphatase 110 U/L (38-126); Blood Urea Nitrogen 32 mg/dl (9-20); Carbon Dioxide 34 mmol/L (22-30); Chloride 92 mmol/L (98-107); Estimated Creatinine Clearance 17 ml/min; Glucose 117 mg/dl (70-99); INR 1.19; PT 15.4 Sec (11.4-14.6); Potassium 4.2 mmol/L (3.5-5.1); Sodium 138 mmol/L (135-145); Total Bilirubin 0.7 mg/dl (0.2-1.3); Total Protein 8.4 g/dl (6.3-8.2); eGFR 16.52
--- NOTE | 2025-02-26 13:54 | EDRN ---
RUE clamp removed by Gonsalo Montaño and the bleeding has stopped.
[2025-02-26 14:00] VITALS: BP 170/76
--- NOTE | 2025-02-26 14:35 | ED.GENMED ---
History of Present Illness
General
Chief Complaint: Vascular Access Problem
Source: patient
Exam Limitations: none
Time Seen by Provider: 02/26/25 13:28
Nursing documentation reviewed up to this point in time: agreed with
History of Present Illness
History of Present Illness:
69-year-old male with past medical history of end-stage renal disease currently on dialysis with an AV fistula to the right arm presenting to the emergency department after dialysis session where he was having bleeding after 6-hour treatment. The
oozing lasted for a few hours and then went over to the ER. Does have a clamp in place upon arrival here.
Past History
Past History
ED Past Medical History: Arrthythmia (PAF), CAD, Cancer (CML), COPD, CVA, HTN, Hypercholesterolemia, NIDDM, [place], Renal failure (on dialysis), Other (Peripheral artery disease, left femoropopliteal bypass), Other (subdural hematoma) and Other (R foot
ulcer; FINESSE; obesity)
ED Past Surgical History: Cardiac (left fempop bypass) and Other (L femoral endarterectomy, popliteal angioplasty, dialysis graft left upper arm)
Social History
Tobacco: Smoker
Alcohol: None
Drug: Marijuana
Personal:
Living: with family
Employment: Disabled
Family History
Family History: Diabetes and Other (reviewed and non-contributory)
Review of Systems
Review of Systems
Allergies reviewed?: Yes
All Other Systems: ROS reviewed and negative except as documented in HPI and ROS
Phy Exam
Physical Exam
Physical Exam:
GENERAL: Alert , in no apparent distress
EYE: pupils equal and reactive
NECK: Supple, no significant adenopathy.
ENT: o/p clr, mmm.
CARDIAC: Regular rate and rhythm .
LUNGS: Clear breath sounds bilaterally, no acute respiratory distress, no wheezes/rales/rhonchi
ABDOMEN: Soft, without focal tenderness, no r/g, no cvat
NEUROLOGICAL: Alert and oriented, no focal neuro deficits
SKIN: Warm and dry, skin intact.
MUSCULOSKELETAL: palpable thrill to the right arm no ongoing bleeding after clamp removal no edema, well perfused.
PSYCH: Normal and appropriate interaction.
Course
Orders/Labs/Results
Orders:
Orders
02/26/25 12:44
EKG [Electrocardiogram (*1)] Urgent
Reason for Study: Other
Other Reason for Exam: bleeding
02/26/25 12:45
EKG- Treatment ONCE
02/26/25 12:52
Complete Blood Count/With Diff Urgent
Comprehensive Metabolic Panel Urgent
PTT Urgent
Prothrombin Time Urgent
Abnormal Lab Results
02/26/25
12:52
RBC 3.85 L 10^6/uL
(4.70-6.10)
Hct 38.2 L %
(39.0-52.0)
MCV 99.2 H fL
(80.0-94.0)
MCH 34.5 H pg
(27.0-31.0)
MPV 10.8 H fL
(7.4-10.4)
Absolute Monos (auto) 1.1 H 10^3/uL
(0.1-0.6)
Monocytes % 16.4 H %
(1.7-9.3)
Eosinophils % 6.1 H %
(0-6)
PT 15.4 H Sec
(11.4-14.6)
APTT 38.0 H Sec
(23.4-35.0)
Chloride 92 L mmol/L
(98-107)
Carbon Dioxide 34 H mmol/L
(22-30)
BUN 32 H mg/dl
(9-20)
Creatinine 3.8 H mg/dL
(0.7-1.3)
Glucose 117 H mg/dl
(70-99)
Total Protein 8.4 H g/dl
(6.3-8.2)
Albumin 5.2 H g/dl
(3.5-5.0)
02/26/25 12:52
02/26/25 12:52
Vital Signs
Initial and Last Documented VS:
Initial Vital Signs
Temp Pulse Resp BP Pulse Ox
98.2 F 82 16 137/78 100
02/26/25 12:46 02/26/25 12:46 02/26/25 12:46 02/26/25 12:46 02/26/25 12:46
Last Documented Vital Signs
Temp Pulse Resp BP Pulse Ox
98.2 F 81 16 170/76 92
02/26/25 12:46 02/26/25 15:00 02/26/25 15:00 02/26/25 14:00 02/26/25 15:00
MDM/Problems Addressed
MDM/Problems Addressed:
69-year-old male presenting to the emergency department today with concerns of bleeding to the right upper extremity fistula since dialysis over the past few hours. On arrival here he is a clamp in place no visible ongoing bleeding after observed
here for over an hour. Stable for discharge. Return precautions given.
*Critical Care Note
Total Time (30-74mins, 75-104mins- exclusive of procedures): Not Applicable
ED Attending Note
-
Portions of this chart may have been created with voice recognition software.� Occasional wrong word or��sound alike� substitutions may have occurred due to the inherent limitations of voice recognition software.
Discharge Plan
Departure
Patient Disposition: Home (Routine Discharge)
Date of Disposition: 02/26/25
Time of Disposition: 15:32
Patient with high blood pressure during this ER visit?: No
Condition: Good
Covid-19: Not Applicable
Discharge Problem:
Hemorrhage of arteriovenous fistula
Prescriptions:
No Action
melatonin 5 MG tablet
5 mg PO HS
atorvastatin 80 MG tablet
80 mg PO HS
sertraline 100 mg Tablet
100 mg PO BID
clopidogrel [Plavix] 75 mg Tablet
75 mg PO DAILY
Nephro-Michelle 0.8 mg Tablet
1 tab PO MOWEFR
Patient Comments:
patient had diaylsis yesterday 11/22/24 due to the holidays
coQ10 (ubiquinol) 200 mg Capsule
200 mg PO DAILY
Ozempic 0.25 mg or 0.5 mg (2 mg/3 mL) Pen Injector
0.25 mg SC GRIMM
Eliquis 5 mg Tablet
5 mg PO BID Qty: 60 0RF
amlodipine 2.5 mg Tablet
2.5 mg PO BID Qty: 60 2RF
acetaminophen 325 mg Tablet
650 mg PO Q4HPRN MDD 3000 mg PRN (Reason: mild pain/fever >100)
albuterol sulfate 90 mcg/actuation Hfa Aerosol Inhaler
2 puff INHALATION R Q4HPRN PRN (Reason: sob)
methylphenidate HCl 10 mg tablet
30 mg PO DAILY
metoprolol succinate 25 mg tablet extended release 24 hr
12.5 mg PO DAILY
lorazepam 1 mg tablet
1 mg PO TID
ascorbic acid (vitamin C) [Vitamin C] 500 mg Tablet
500 mg PO DAILY
ezetimibe [Zetia] 10 mg Tablet
10 mg PO DAILY Qty: 0 0RF
Referrals:
Placido Lora Jr., [Family Provider] -
Activity Restrictions/Additional Instructions:
You came to the emergency department today with concerns of bleeding from your AV fistula. Here the bleeding was stopped. Please follow-up for continued treatment for dialysis as an outpatient. Return for any worsening, new or concerning symptoms.
Interventions
Interventions:
*Risk Screen - Suicide Last Done: 02/26/25 12:46
*General Assessment Last Done: 02/26/25 12:46
*Neglect/Abuse Screening Last Done: 02/26/25 12:46
*ED- Fall Risk Assessment Last Done: 02/26/25 12:46
Discharge Date and Time
Print Language: COMORAN
[2025-02-26 15:00] VITALS: BP 149/82
== END 2025-02-26 15:37 | disposition home or self-care (01) ==
LOC: EMR 12:42
PROVIDERS: EMERGENCY PHYSICIAN Emergency Medicine; FAMILY PHYSICIAN Family Medicine
DX: T82.838A Hemorrhage due to vascular prosthetic devices, implants and grafts, initial encounter (principal); Y84.1 Kidney dialysis as the cause of abnormal reaction of the patient, or of later complication, without mention of misadventure at the time of the procedure; Y82.8 Other medical devices associated with adverse incidents; N18.6 End stage renal disease; E11.22 Type 2 diabetes mellitus with diabetic chronic kidney disease; Z99.2 Dependence on renal dialysis; F17.200 Nicotine dependence, unspecified, uncomplicated
CPT/HCPCS: 99284; 80053; 85025; 85610; 85730; 93005

== ENCOUNTER 2025-03-15 12:19 | Inpatient (IN) | payer MEDICARE, OTHER, SELFPAY ==
[2025-03-15] VITALS (26 sets, daily range): BP systolic 109–174; BP diastolic 40–101; BMI 31.5; BMI 30.1
--- NOTE | 2025-03-15 07:21 | ED.GENMED ---
History of Present Illness
General
Chief Complaint: Back Pain
Source: patient
Exam Limitations: none
Time Seen by Provider: 03/15/25 07:11
History of Present Illness
History of Present Illness:
69-year-old male with history of chronic pain, chronic kidney disease end-stage renal disease on dialysis on a kidney transplant with who takes Eliquis and Plavix presents complaining of severe right-sided lower back pain that has gotten worse since
he received an ablation in his lower back 4 days ago. He denies any new pain or weakness or numbness to his legs. He denies any bowel or bladder dysfunction. He does make urine. He urinated this morning. No fevers. No chest pain or shortness
of breath. No other complaints at this time
Past History
Past History
ED Past Medical History: Arrthythmia (PAF), CAD, Cancer (CML), COPD, CVA, HTN, Hypercholesterolemia, NIDDM, [place], Renal failure (on dialysis), Other (Peripheral artery disease, left femoropopliteal bypass), Other (subdural hematoma) and Other (R foot
ulcer; FINESSE; obesity)
ED Past Surgical History: Cardiac (left fempop bypass) and Other (L femoral endarterectomy, popliteal angioplasty, dialysis graft left upper arm)
Social History
Tobacco: Smoker
Alcohol: None
Drug: Marijuana
Personal:
Living: with family
Employment: Disabled
Family History
Family History: Diabetes and Other (reviewed and non-contributory)
Phy Exam
Physical Exam
Physical Exam:
General: Well-appearing male no acute respiratory distress
HEENT: Normocephalic atraumatic
Heart: Regular rate and rhythm
Lungs: Clear no wheeze
Abdomen is soft nontender nondistended
Extremities: No cyanosis or edema
Neurologic: Good sensation lower extremities bilaterally
Musculoskeletal exam: Mild diffuse tenderness about the lower lumbar spine
Course
Orders/Labs/Results
Orders:
Orders
03/15/25 07:21
diazePAM [Valium Injection] 5 mg IV NOW STA
03/15/25 07:49
Complete Blood Count/With Diff Urgent
Comprehensive Metabolic Panel Urgent
03/15/25 08:51
HYDROmorphone [Dilaudid] 0.5 mg IV NOW STA
Abnormal Lab Results
03/15/25
07:49
RBC 3.09 L 10^6/uL
(4.70-6.10)
Hgb 10.8 L g/dL
(13.0-18.0)
Hct 30.2 L %
(39.0-52.0)
MCV 97.7 H fL
(80.0-94.0)
MCH 35.0 H pg
(27.0-31.0)
MPV 11.5 H fL
(7.4-10.4)
Abs Immat Gran (auto) 0.1 H 10^3/uL
(0-0.05)
Absolute Monos (auto) 1.0 H 10^3/uL
(0.1-0.6)
Immature Gran % 0.6 H %
(0-0.5)
Monocytes % 11.6 H %
(1.7-9.3)
Potassium 6.4 H* mmol/L
(3.5-5.1)
Carbon Dioxide 17 L mmol/L
(22-30)
BUN 125 H* mg/dl
(9-20)
Creatinine 10.4 H* mg/dL
(0.7-1.3)
Glucose 113 H mg/dl
(70-99)
03/15/25 07:49
03/15/25 07:49
Vital Signs
Initial and Last Documented VS:
Initial Vital Signs
Temp Pulse Resp BP Pulse Ox
97.5 F 47 18 154/57 92
03/15/25 07:30 03/15/25 07:30 03/15/25 07:30 03/15/25 07:30 03/15/25 07:30
Last Documented Vital Signs
Temp Pulse Resp BP Pulse Ox
97.5 F 46 18 154/57 88
03/15/25 07:30 03/15/25 08:00 03/15/25 07:30 03/15/25 07:36 03/15/25 07:36
MDM/Problems Addressed
Differential Diagnosis Includes:
Patient here with significant back pain worsening over the past 4 days following an ablation procedure on his lower back by pain management. He was unable to go to dialysis today secondary to his back pain. He was unable to stand up. He has been
using Flexeril at home without relief. Chronic kidney disease limits the ability to use NSAIDs. Will try Valium for muscle spasm. No new neurologic deficits to the legs or red flag symptoms to suggest cauda equina. No fever to suggest infectious
source.
*Critical Care Note
Total Time (30-74mins, 75-104mins- exclusive of procedures): Not Applicable
Update Note
Update Note:
Patient reexamined still in significant discomfort. Potassium resulted at 6.4. Patient was unable to attend hemodialysis today secondary to his intractable back pain. Will have to admit to hospital for further treatment of his pain and for him to
receive dialysis
ED Attending Note
-
Portions of this chart may have been created with voice recognition software.� Occasional wrong word or��sound alike� substitutions may have occurred due to the inherent limitations of voice recognition software.
Discharge Plan
Departure
Patient Disposition: Admit
Date of Disposition: 03/15/25
Time of Disposition: 08:55
Presentation/result/management discussed w/ accepting MD/DO: Hospitalist
Discharge Problem:
Acute hyperkalemia, Back pain
Prescriptions:
No Action
melatonin 5 MG tablet
5 mg PO HS
atorvastatin 80 MG tablet
80 mg PO HS
sertraline 100 mg Tablet
100 mg PO BID
clopidogrel [Plavix] 75 mg Tablet
75 mg PO DAILY
Nephro-Michelle 0.8 mg Tablet
1 tab PO MOWEFR
Patient Comments:
patient had diaylsis yesterday 11/22/24 due to the holidays
coQ10 (ubiquinol) 200 mg Capsule
200 mg PO DAILY
Ozempic 0.25 mg or 0.5 mg (2 mg/3 mL) Pen Injector
0.25 mg SC GRIMM
Eliquis 5 mg Tablet
5 mg PO BID Qty: 60 0RF
amlodipine 2.5 mg Tablet
2.5 mg PO BID Qty: 60 2RF
acetaminophen 325 mg Tablet
650 mg PO Q4HPRN MDD 3000 mg PRN (Reason: mild pain/fever >100)
albuterol sulfate 90 mcg/actuation Hfa Aerosol Inhaler
2 puff INHALATION R Q4HPRN PRN (Reason: sob)
methylphenidate HCl 10 mg tablet
30 mg PO DAILY
metoprolol succinate 25 mg tablet extended release 24 hr
12.5 mg PO DAILY
lorazepam 1 mg tablet
1 mg PO TID
ascorbic acid (vitamin C) [Vitamin C] 500 mg Tablet
500 mg PO DAILY
ezetimibe [Zetia] 10 mg Tablet
10 mg PO DAILY Qty: 0 0RF
Referrals:
Placido Lora Jr., DO [Family Provider] -
Interventions
Interventions:
*Risk Screen - Suicide Last Done: 03/15/25 07:51
*General Assessment Last Done: 03/15/25 07:51
*ED COVID-19 Vaccine History Last Done: 03/15/25 07:51
Discharge Date and Time
Print Language: TELUGU
[2025-03-15 08:08] LABS: % Basophils 0.5 % (0-2); % Eosinophils 2.9 % (0-6); % Immature Granulocytes 0.6 % (0-0.5); % Lymphocytes 20.5 % (20.5-51.1); % Monocytes 11.6 % (1.7-9.3); % Neutrophils 63.9 % (42.2-75.2); Absolute Eosinophils 0.3 10^3/uL (0-0.7); Absolute Immature Granulocytes 0.1 10^3/uL (0-0.05); Absolute Lymphocytes 1.8 10^3/uL (1.2-3.4); Absolute Neutrophils 5.6 10^3/uL (1.4-6.5); Hematocrit 30.2 % (39.0-52.0); Hemoglobin 10.8 g/dL (13.0-18.0); Mean Corp Hgb Conc. 35.8 g/dL (33.0-37.0); Mean Corpuscular Volume 97.7 fL (80.0-94.0); Nucleated Red Blood Cells % 0 % (-); Red Blood Cell Count 3.09 10^6/uL (4.70-6.10); Red Cell Dist. Width 13.6 % (11.5-14.5); White Blood Cell Count 8.7 10^3/uL (4.8-10.8)
[2025-03-15] MEDS: VALIUM INJECTION 5 MG IV (08:08)
[2025-03-15 08:39] LABS: Mean Platelet Volume 11.5 fL (7.4-10.4); Platelet Count 165 10^3/uL (130-400)
[2025-03-15 08:40] LABS: ALT (SGPT) 43 U/L (0-50); AST (SGOT) 21 U/L (17-59); Albumin 4.6 g/dl (3.5-5.0); Alkaline Phosphatase 115 U/L (38-126); Blood Urea Nitrogen 125 mg/dl (9-20); Calcium 9.5 mg/dl (8.4-10.2); Carbon Dioxide 17 mmol/L (22-30); Chloride 99 mmol/L (98-107); Estimated Creatinine Clearance 7 ml/min; Glucose 113 mg/dl (70-99); Potassium 6.4 mmol/L (3.5-5.1); Sodium 135 mmol/L (135-145); Total Bilirubin 0.5 mg/dl (0.2-1.3); Total Protein 6.9 g/dl (6.3-8.2); eGFR 4.94
[2025-03-15] MEDS: DILAUDID 0.5 MG IV ×3 (09:19→23:07)
[2025-03-15 09:44] LABS: Glucose - Point of Care 111 mg/dl (70-99)
[2025-03-15] MEDS: NOVOLIN R 5 UNITS IV (09:51)
[2025-03-15] MEDS: DEXTROSE 50% SYRINGE 25 GRAMS IV (09:52)
[2025-03-15] MEDS: CALCIUM GLUCONATE 1000 MG IV (09:54)
--- NOTE | 2025-03-15 10:03 | W.CON.NEPH ---
Consultation
-
Date/Time Consultation Requested: 03/15/25899
Date/Time Consultation Performed: 03/15/25929
Requesting Provider: Ac Reno
Performing Provider: Karin Aden
Reason for Consultation: ESRD
Medical History
-
Chief Complaint: back pain
History of Present Illness:
The patient is a 69-year-old male with a past medical history of end-stage renal disease secondary to diabetes who is maintained on a Saturday dialysis schedule at [facility]. He is maintained on insulin therapy for his
diabetes with multiple microvascular complications including diabetic neuropathy. He is maintained on calcium acetate for his hyperphosphatemia and a multidrug regimen for his hypertension.He is chronically anticoagulated with Eliquis for his
atrial fibrillation . The patient presented to the hospital today because of worsening back pain and unable to ambulate. He reportedly had back ablation done on 4days ago and since then pain worsened. he did not feel he could tolerate HD at unit
hence presented to ER today.
He still has prolonged bleeding from AVF , had angioplasty in January. He offers no cp or sob though 10kg over his EDW. He recently has increased appetite from Abilify and trying to waen the medication. His k is high at 6.4, BUN 125, cr 10.4. He also
soledad to 40s with out symptoms. No dizziness. No fevers or cough. no n/v. Nephro asked to see him for HD needs.
Past Medical History
Stenting of vein graft to obtuse marginal October 24, 2023
Strep bacteremia now off antibiotics
diastolic CHF
ESRD MWF ([facility])
Metabolic acidosis
Hyperkalemia
Anemia, CKD +/- functional iron deficiency
Secondary hyperparathyroidism with hyperphosphatemia
Diabetes mellitus with multiple microvascular complications including profound nephrotic proteinuria
COPD
Obstructive sleep apnea/CPAP
Diabetic polyneuropathy
CAD with CABG �2009
LAD stent 2015
Left SFA and popliteal angioplasty 2017
Left femoral to [id number] popliteal bypass 2018
Right SFA and popliteal angioplasty/stenting 2015
Hypertension
Right bundle branch block
CML
Hyperlipidemia
TIA 2016
Frontal subdural hematoma 2018 (traumatic fall)
Long-standing smoker
Multiple laminectomy
Right total knee replacement
Left total knee replacement
Left upper arm AV graft September 13, 2023 (Dr. Luther)
NSTEMI August 2023 (troponin 0.51)
Hyperphosphatemia
Chronic ambulatory despite
Social History
Tobacco: Former Smoker
Alcohol: None
Personal:
Living: With Family
Family History
No chronic kidney disease
Allergies / Home Medications
Allergy/AdvReac Type Severity Reaction Status Date / Time
Iodinated Contrast Media Allergy Nausea / Verified 02/26/25 12:44
Vomiting,
'panic
attack'
latex Allergy Itching Verified 02/26/25 12:44
morphine Allergy Itching Verified 02/26/25 12:44
�Medication �Instructions �Recorded �Confirmed �Type
melatonin 5 mg tablet 5 mg PO HSPRN PRN sleep 04/06/19 03/15/25 History
atorvastatin 80 mg tablet 80 mg PO HS High cholesterol 01/25/21 03/15/25 History
clopidogrel 75 mg tablet (Plavix) 75 mg PO DAILY Blood Clot 02/19/24 03/15/25 History
Prevention/Tx
coQ10 (ubiquinol) 200 mg capsule 200 mg PO DAILY Supplement 02/19/24 03/15/25 History
semaglutide 0.25 mg or 0.5 mg (2 0.25 mg SC GRIMM Diabetes 02/19/24 03/15/25 History
mg/3 mL) subcutaneous pen injector
(Ozempic)
sertraline 100 mg tablet 100 mg PO BID Mental Health 02/19/24 03/15/25 History
vitamin B complex-vitamin C-folic 1 tab PO MOWEFR Supplement 02/19/24 03/15/25 History
acid 0.8 mg tablet (Nephro-Michelle)
amlodipine 2.5 mg tablet 2.5 mg PO BID #60 tabs 02/28/24 03/15/25 Rx
apixaban 5 mg tablet (Eliquis) 5 mg PO BID #60 tabs 02/28/24 03/15/25 Rx
acetaminophen 325 mg tablet 650 mg PO Q4HPRN PRN mild 05/25/24 03/15/25 History
pain/fever >100
albuterol sulfate 90 mcg/actuation 2 puff inhalation R Q4HPRN PRN sob 05/25/24 03/15/25 History
aerosol inhaler
methylphenidate HCl 10 mg tablet 30 mg PO DAILY 07/07/24 03/15/25 History
metoprolol succinate 25 mg 12.5 mg PO DAILY 09/23/24 03/15/25 History
tablet,extended release 24 hr
lorazepam 1 mg tablet 1 mg PO TID 10/28/24 03/15/25 History
ascorbic acid (vitamin C) 500 mg 500 mg PO DAILY 11/03/24 03/15/25 History
tablet (Vitamin C)
ezetimibe 10 mg tablet (Zetia) 10 mg PO DAILY High Cholesterol #0 11/04/24 03/15/25 Rx
tabs
aripiprazole 2 mg tablet (Abilify) 2 mg PO DAILY 03/15/25 03/15/25 History
loperamide 2 mg tablet 2 mg PO TIDPRN PRN dairrhea 03/15/25 03/15/25 History
Review of Systems
-
All other systems: Negative unless noted
Physical Exam
Vital Signs
Vital Signs
Temp Pulse Resp BP Pulse Ox
97.5 F 46 18 154/57 88
03/15/25 07:30 03/15/25 08:00 03/15/25 07:30 03/15/25 07:36 03/15/25 07:36
Lab Results
WBC 8.7 10^3/uL (4.8-10.8) 03/15/25 07:49
RBC 3.09 10^6/uL (4.70-6.10) L 03/15/25 07:49
Hgb 10.8 g/dL (13.0-18.0) L 03/15/25 07:49
Hct 30.2 % (39.0-52.0) L 03/15/25 07:49
Plt Count 165 10^3/uL (130-400) 03/15/25 07:49
Sodium 135 mmol/L (135-145) 03/15/25 07:49
Chloride 99 mmol/L (98-107) 03/15/25 07:49
Carbon Dioxide 17 mmol/L (22-30) L 03/15/25 07:49
BUN 125 mg/dl (9-20) H* 03/15/25 07:49
Creatinine 10.4 mg/dL (0.7-1.3) H* 03/15/25 07:49
eGFR 4.94 03/15/25 07:49
Glucose 113 mg/dl (70-99) H 03/15/25 07:49
Calcium 9.5 mg/dl (8.4-10.2) 03/15/25 07:49
Albumin 4.6 g/dl (3.5-5.0) 03/15/25 07:49
Physical Exam
General: Awake, Alert, Oriented, AOx3, No Distress and Nontoxic
HEENT: Anicteric, Conjunctivae Clear, Ear/Nose Intact and Neck Supple
Respiratory: Clear, Normal Excursion and Nonlabored Respirations
Cardiac: S1/S2 and Regular Rate/Rhythm
Breast: Deferred by me
Abdomen: Soft, Nontender and Nondistended
Musculoskeletal: No Cyanosis and No Edema
Skin: No Rash
Neuro: Nonfocal/Grossly Intact
Psych: Insight/judgement good and Appropriate
Vascular Access: AVF
Data Reviewed
-
Radiology: Report Reviewed by me and Discussed with Patient
Labs: Labs Reviewed by me and Discussed with Patient
Assessment/Plan
-
Impression:
Lower back pain likely secondary to lumbar radiculopathy
History of lumbar fusion
Hyperkalemia
ESRD MWF, [facility]
Status post elective cardiac catheterization with stenting
PAF now in AFIB
DM
CABG hx
Anemia
PVD
LUE AVG/CVC
Hyperphosphatemia
HTN
Diabetic neuropathy
Secondary hyperparathyroidism
Coronary artery disease with previous stenting
Left anterior chest wall dialysis catheter
Angioplasty outflow stenoses AV fistula
Plan:
A/w back pain
HD today , not sure if hyperkalemia causing soledad, known bradycardia before on low dos eBB
he is significantly over his EDW-try UF as much as possible
BP stable
renal diet and FR must
pain control
[2025-03-15 10:55] LABS: Glucose - Point of Care 139 mg/dl (70-99)
--- NOTE | 2025-03-15 11:42 | HPS.HSE ---
Family Physician
-
Family Physician: Placido Lora Jr.
Chief Complaint
-
back pain
History of Present Illness
69-year-old male with extensive past medical history who is presenting from home with complaints of severe back pain. Patient states he has a history of chronic back pain and underwent lumbar fusion with surgery x 3. 4 days ago he underwent
epidural steroid injection by his ship painter helper. States over the weekend he started developing severe back pain with radiation to right knee. States of sharp stabbing pain. Denies any urinary or fecal incontinence. Denies any saddle
anesthesia. States the pain has increased in intensity and he was unable to lay still and did not think he was able to tolerate hemodialysis. Patient is due to undergo hemodialysis today. Stated he was taking Flexeril at home which was not
helping with his back pain. States of chronic bilateral lower extremity neuropathy which has not changed. State after receiving Dilaudid and Valium pain did decrease. Denies any chest pain, shortness of breath, abdominal pain, lightheadedness,
dizziness, nausea, vomiting or diarrhea. Patient stated he still makes urine. States he has a history of mini strokes and does he is on Plavix and Eliquis.
Medical History
Past Medical History
Past Medical History: Reports Other
Additional Past Medical History:
CAD status post CABG
Peripheral vascular disease
Diabetes mellitus
ESRD on hemodialysis
Severe lumbar spinal stenosis
BPH
Primary hypertension
Depression
Hyperlipidemia
GERD
Chronic lower extremity neuropathy
Chronic coagulopathy with Eliquis
Paroxysmal atrial fibrillation
Vitamin D deficiency
Moderate pulmonary hypertension
ADHD
Past Surgical History: Reports Other
Additional Past Surgical History:
Cardiac (left fempop bypass) and Other (L femoral endarterectomy, popliteal angioplasty, dialysis graft left upper arm)
CABG
Lumbar fusion
Bilateral hip replacement
Social History
Tobacco: Non-smoker
Alcohol: None
Living: With Family
Family History
Family History: Not pertinent
Allergies / Home Medications
Allergies reflects when Allergies were last updated in [facility].
Home Medications with original date entered in [facility]
Allergy/Medication List:
Allergies
Allergy/AdvReac Type Severity Reaction Status Date / Time
Iodinated Contrast Media Allergy Nausea / Verified 02/26/25 12:44
Vomiting,
'panic
attack'
latex Allergy Itching Verified 02/26/25 12:44
morphine Allergy Itching Verified 02/26/25 12:44
Home Medications
melatonin 5 mg tablet 5 mg PO HSPRN PRN sleep 04/06/19
atorvastatin 80 mg tablet 80 mg PO HS High cholesterol 01/25/21
clopidogrel 75 mg tablet (Plavix) 75 mg PO DAILY Blood Clot Prevention/Tx 02/19/24
coQ10 (ubiquinol) 200 mg capsule 200 mg PO DAILY Supplement 02/19/24
semaglutide 0.25 mg or 0.5 mg (2 mg/3 mL) subcutaneous pen injector (Ozempic) 0.25 mg SC GRIMM Diabetes 02/19/24
sertraline 100 mg tablet 100 mg PO BID Mental Health 02/19/24
vitamin B complex-vitamin C-folic acid 0.8 mg tablet (Nephro-Michelle) 1 tab PO MOWEFR Supplement 02/19/24
amlodipine 2.5 mg tablet 2.5 mg PO BID #60 tabs 02/28/24
apixaban 5 mg tablet (Eliquis) 5 mg PO BID #60 tabs 02/28/24
acetaminophen 325 mg tablet 650 mg PO Q4HPRN PRN mild pain/fever >100 05/25/24
albuterol sulfate 90 mcg/actuation aerosol inhaler 2 puff inhalation R Q4HPRN PRN sob 05/25/24
methylphenidate HCl 10 mg tablet 30 mg PO DAILY 07/07/24
metoprolol succinate 25 mg tablet,extended release 24 hr 12.5 mg PO DAILY 09/23/24
lorazepam 1 mg tablet 1 mg PO TID@1200,1700,2200 10/28/24
ascorbic acid (vitamin C) 500 mg tablet (Vitamin C) 500 mg PO DAILY 11/03/24
ezetimibe 10 mg tablet (Zetia) 10 mg PO DAILY High Cholesterol #0 tabs 11/04/24
aripiprazole 2 mg tablet (Abilify) 2 mg PO DAILY 03/15/25
loperamide 2 mg tablet 2 mg PO TIDPRN PRN dairrhea 03/15/25
Review of Systems
-
History Source: Patient
A 12 point ROS was completed and negative except as noted: Yes
Physical Exam
Vital Signs
Vital Signs
Temp Pulse Resp BP Pulse Ox
97.5 F 46 18 154/57 88
03/15/25 07:30 03/15/25 08:00 03/15/25 07:30 03/15/25 07:36 03/15/25 07:36
Physical Exam
General: Well Developed, Well Nourished, Appears in Distress and Pain
HEENT: NormoCephalic, Moist mucous membranes and Atraumatic
Respiratory: Clear
Cardiac: S1/S2 and Irregular Rhythm (Was in normal sinus rhythm and now converted to A-fib); No Murmur or Rub
GI: Soft, Non Tender, Non Distended and Normal Bowel Sounds; No Organomegaly
Rectal: Deferred by Provider
Musculoskeletal: No Clubbing, No Cyanosis and No Edema
Skin: No Rash
Neuro: Awake, Alert, Oriented, AO x 3, No Motor Deficits and Nonfocal/grossly intact
Psych: Calm
Laboratory Results
-
03/15/25 07:49
Laboratory Results
Total Bilirubin 0.5 mg/dl (0.2-1.3) 03/15/25 07:49
AST 21 U/L (17-59) 03/15/25 07:49
ALT 43 U/L (0-50) 03/15/25 07:49
Alkaline Phosphatase 115 U/L (38-126) 03/15/25 07:49
Data Reviewed
-
Lab Data: Labs Reviewed by me and Discussed with Patient
Impression/Plan
-
#Lower back pain likely secondary to lumbar radiculopathy
#History of lumbar fusion
Patient with recent MRI 4 weeks ago with severe lumbar spinal narrowing
We will start patient on a trial of IV steroids
Pain control. Flexeril.
Check lumbar spine x-ray to start
Physical therapy evaluation
#Hyperkalemia
#ESRD on hemodialysis
#ESRD related anemia
Status post temporizing measure in the ER
Patient plan for hemodialysis with aggressive volume removal per nephrology
ASCVD (CAD, PAD, Carotid Disease, CVA / TIA) with Dyslipidemia
Continue with Plavix and Eliquis
Continue with high-dose of statin
Monitor on telemetry
Parox A. Fib
Continue with metoprolol
Continue with Eliquis
Monitor on telemetry
Primary hypertension
Continue with Norvasc
Volume removal should also help with blood pressure
Diabetes mellitus type 2
Insulin sliding scale and Accu-Chek
Hold Ozempic for now
Depression/ADHD/anxiety
Continue with home dose of Abilify/Ritalin/Zoloft and Ativan
History of CML
DVT prophylaxis with Eliquis
Full code
I spent a total of 80 minutes with the patient or on the floor. More than 50% of this time involved counseling and coordination of care.
[2025-03-15 12:58] LABS: Glucose - Point of Care 85 mg/dl (70-99)
--- NOTE | 2025-03-15 14:07 | W.PN.NEPH.HD ---
Assessment
-
pt seen during HD
vitals stable
UF as much tolerates, 10kg over EDW
he may have gained some body wt
stable resp status
AVF functions fine
Progress Note - Hemodialysis
-
Date of Service: March 15, 2025
Duration: 30 minutes and 3 hours
Potassium Bath: 2
Calcium Bath: 2.5
Opti-Dialyzer: 160
Ultrafiltration: Other (4kg)
Blood Flow: 400
Dialysate Flow: 600
Heparin: no
EPO: no
[2025-03-15] MEDS: TOPROL XL 12.5 MG PO (15:18)
[2025-03-15 15:38] LABS: Potassium 3.2 mmol/L (3.5-5.1)
--- NOTE | 2025-03-15 18:47 | W.PN.UPDATE ---
Update Note
Progress Note Update
Dyoos-nkays-H was asked to see patient bleeding from fistula. I came and evaluated the patient.
No chest pain or shortness of breath. Has some pain and received IV Dilaudid. He had some lightheadedness after medication.
Vital signs stable
Heart regular rate and rhythm S1-S2 no murmurs
Lungs clear to auscultation bilateral
Right upper extremity fistula with active bleeding with surgical foam and and compression in place.
Neuro alert and oriented x 3
A/P:
Active bleeding from right upper extremity fistula--> local compression, discussed with nephrology who came at bedside and we are calling vascular surgical team to evaluate patient stat. Patient last time took anticoagulant last evening. Continue
cardiac monitoring, check CBC.
[2025-03-15 19:26] LABS: % Basophils 0.4 % (0-2); % Eosinophils 3.6 % (0-6); % Immature Granulocytes 0.3 % (0-0.5); % Lymphocytes 16.3 % (20.5-51.1); % Monocytes 8.2 % (1.7-9.3); % Neutrophils 71.2 % (42.2-75.2); Absolute Eosinophils 0.3 10^3/uL (0-0.7); Absolute Lymphocytes 1.5 10^3/uL (1.2-3.4); Absolute Monocytes 0.8 10^3/uL (0.1-0.6); Absolute Neutrophils 6.7 10^3/uL (1.4-6.5); Hematocrit 31.8 % (39.0-52.0); Hemoglobin 11.4 g/dL (13.0-18.0); Mean Corp Hgb Conc. 35.8 g/dL (33.0-37.0); Mean Corpuscular Hgb 35.3 pg (27.0-31.0); Mean Corpuscular Volume 98.5 fL (80.0-94.0); Mean Platelet Volume 11.4 fL (7.4-10.4); Nucleated Red Blood Cells % 0 % (-); Platelet Count 205 10^3/uL (130-400); Red Blood Cell Count 3.23 10^6/uL (4.70-6.10); Red Cell Dist. Width 13.4 % (11.5-14.5); White Blood Cell Count 9.4 10^3/uL (4.8-10.8)
--- NOTE | 2025-03-15 19:34 | PTCARENOTE ---
pt ended HD at 1630, AV fistula- tommy access uncontrollable bleeding since. artieral IV remained in place until vascular PA came down. previous RN reached out to vascular, hospitalist and nephrology. at change of shift, hospitalist and nephrology
came down. attempted to use clotting gauze without success. vascular PA came down and placed two sutures into arterial and venous access of fistula and dressed. dressing CDI and bleeding has subsided.
[2025-03-15] MEDS: RITALIN PO (19:42)
[2025-03-15] MEDS: TYLENOL 650 MG PO ×2 (19:42→23:07)
[2025-03-15 19:43] LABS: Glucose - Point of Care 126 mg/dl (70-99)
[2025-03-15] MEDS: NOVOLOG FLEXPEN-LOW RESISTANCE SC (19:43)
--- NOTE | 2025-03-15 19:45 | CON.VAS ---
Consultation
Consultation Request
Date/Time Consultation Performed: 03/15/25 7:30pm
Performing Provider: Ashkan
Reason for Consultation: Bleeding AVF
Medical History
-
Chief Complaint: Active bleeding from right upper extremity AVF
History of Present Illness:
69-year-old male with significant past medical history for peripheral arterial disease, COPD, diabetes, ESRD, CAD, CHF, TIA, hypertension, paroxysmal atrial fibrillation, and KS who presents to [place] from HD access site with reports of
active bleeding from right upper extremity AV fistula following completion of HD session today. 1 needle was removed at HD center and was 'profusely bleeding.' The second needle was left in and patient was transported to the emergency room.
Patient notes that he is experiencing prolonged bleeding following HD sessions for past month, he admits he was seen in our office last week (Pt is unsure of plan). Patient offers no other complaints other than recent prolonged bleeding at right
upper extremity AV fistula. He was noted to have active bleeding at 2 puncture sites, control was obtained with 2 sutures. Patient is well-known to our service for multiple surgical interventions for peripheral arterial disease and creation of AV
fistula please see surgical history below. Most recent, 01/25/[address] Luther Balloon angioplasty of right basilic vein outflow stenosis (7 mm x 80 mm Lutonix drug-coated balloon), Balloon angioplasty and stenting of right axillary vein stenosis
(8 mm x 5 cm Viabahn stent graft).
Vascular surgical history below:
05/10/2016- Right lower extremity arteriogram, right superficial femoral artery and popliteal artery angioplasty and stent using a 6 x 100 Zilver PTX and a 6 x [address] Olvin Willams
10/27/2018- Left lower extremity arteriogram, angioplasty of the left SFA and popliteal artery with a [address] Olvin Willams
04/11/2019- Left femoral endarterectomy (common femoral, SFA, origin of profunda femoris artery). Left femoral to above knee popliteal artery bypass with 8 mm ring Propaten graft with Dr. Fantasma Atkinson
09/13/2023- Creation of left upper arm AV graft for hemodialysis Dr. Paul Luther III
11/14/2023- Left upper extremity fistulogram and central venogram Dr. Fantasma Atkinson
02/27/2024- Left upper extremity fistulogram and central venogram, balloon angioplasty and stent placement of venous anastomotic/central venous stenosis with 10 mm x 4 cm Cook 635 stent, balloon angioplasty and stent placement with covered [place]
Viabahn 8 mm x 5 cm stent with an AV graft Dr. Fantasma Atkinson
07/30/2024- Left upper extremity fistulogram and central venogram, balloon angioplasty of central venous stenosis with [address] Fantasma Atkinson
09/24/2024- Right upper extremity brachiobasilic arteriovenous fistula creation with single stage basilic vein transposition, ligation of left upper extremity AV graft Dr. Fantasma Atkinson
01/25/2025- Balloon angioplasty of right basilic vein outflow stenosis (7 mm x 80 mm Lutonix drug-coated balloon), Balloon angioplasty and stenting of right axillary vein stenosis (8 mm x 5 cm Viabahn stent graft)
Past Medical History
Past Medical History: Other (Right bundle branch block, paroxysmal atrial fibrillation), CAD (CABG �2009), CHF, HTN, NIDDM, Renal Failure (ESRD ([facility] HD schedule)) and Other (Strep bacteremia, anemia, hyperparathyroidism, obstructive sleep apnea,
peripheral arterial disease, CML, TIA, frontal subdural hematoma 2019 (following )
Past Surgical History: Cardiac (CABG, PCI) and Orthopedic (Laminectomy, right total knee replacement, left total knee resident)
Social History
Tobacco: Former Smoker
Personal:
Living: With Family
Family History
Family History: Reviewed & Not Pertinent
Allergies / Home Medications
Allergy/AdvReac Type Severity Reaction Status Date / Time
Iodinated Contrast Media Allergy Nausea / Verified 02/26/25 12:44
Vomiting,
'panic
attack'
latex Allergy Itching Verified 02/26/25 12:44
morphine Allergy Itching Verified 02/26/25 12:44
�Medication �Instructions �Recorded �Confirmed �Type
melatonin 5 mg tablet 5 mg PO HSPRN PRN sleep 04/06/19 03/15/25 History
atorvastatin 80 mg tablet 80 mg PO HS High cholesterol 01/25/21 03/15/25 History
clopidogrel 75 mg tablet (Plavix) 75 mg PO DAILY Blood Clot 02/19/24 03/15/25 History
Prevention/Tx
coQ10 (ubiquinol) 200 mg capsule 200 mg PO DAILY Supplement 02/19/24 03/15/25 History
semaglutide 0.25 mg or 0.5 mg (2 0.25 mg SC GRIMM Diabetes 02/19/24 03/15/25 History
mg/3 mL) subcutaneous pen injector
(Ozempic)
sertraline 100 mg tablet 100 mg PO BID Mental Health 02/19/24 03/15/25 History
vitamin B complex-vitamin C-folic 1 tab PO MOWEFR Supplement 02/19/24 03/15/25 History
acid 0.8 mg tablet (Nephro-Michelle)
amlodipine 2.5 mg tablet 2.5 mg PO BID #60 tabs 02/28/24 03/15/25 Rx
apixaban 5 mg tablet (Eliquis) 5 mg PO BID #60 tabs 02/28/24 03/15/25 Rx
acetaminophen 325 mg tablet 650 mg PO Q4HPRN PRN mild 05/25/24 03/15/25 History
pain/fever >100
albuterol sulfate 90 mcg/actuation 2 puff inhalation R Q4HPRN PRN sob 05/25/24 03/15/25 History
aerosol inhaler
methylphenidate HCl 10 mg tablet 30 mg PO DAILY 07/07/24 03/15/25 History
metoprolol succinate 25 mg 12.5 mg PO DAILY 09/23/24 03/15/25 History
tablet,extended release 24 hr
lorazepam 1 mg tablet 1 mg PO TID@1200,1700,2200 10/28/24 03/15/25 History
ascorbic acid (vitamin C) 500 mg 500 mg PO DAILY 11/03/24 03/15/25 History
tablet (Vitamin C)
ezetimibe 10 mg tablet (Zetia) 10 mg PO DAILY High Cholesterol #0 11/04/24 03/15/25 Rx
tabs
aripiprazole 2 mg tablet (Abilify) 2 mg PO DAILY 03/15/25 03/15/25 History
loperamide 2 mg tablet 2 mg PO TIDPRN PRN dairrhea 03/15/25 03/15/25 History
Review of Systems
-
History Source: Patient
All other systems: Negative unless noted
Skin: Reports Other (Bleeding at AVF site)
Physical Exam
Vital Signs
Temp Pulse Resp BP Pulse Ox
97.5 F 90 18 125/90 94
03/15/25 07:30 03/15/25 18:45 03/15/25 07:30 03/15/25 18:45 03/15/25 18:45
Lab Results
03/15/25 19:03
03/15/25 15:23
Physical Exam
General: No Apparent Distress
HEENT: Normocephalic and Atraumatic
Respiratory: Non Labored Respirations
Cardiac: Other (Palpable radial pulse); Negative JVD
Skin: Other (Right upper extremity aVF +thrill, bleeding from both needle sites-controlled with 2 sutures)
Neuro: Awake, Alert and Oriented
Psych: Calm
Assessment / Plan
-
69-year-old male presenting to the emergency room with prolonged bleeding following HD session
2 sutures placed at needle sites-controlled bleeding
Plan:
- AVF ultrasound
- Discussed with Dr. Luther
[2025-03-15] MEDS: ATIVAN 1 MG PO ×2 (19:49→23:10)
[2025-03-15 21:35] LABS: Glucose - Point of Care 229 mg/dl (70-99)
[2025-03-15] MEDS: DECADRON 6 MG IV (21:54)
[2025-03-15] MEDS: ZOLOFT 100 MG PO (21:54)
[2025-03-15] MEDS: NORVASC 2.5 MG PO (21:54)
[2025-03-15] MEDS: LIPITOR 80 MG PO (21:54)
--- NOTE | 2025-03-15 22:00 | PTCARENOTE ---
03/15: Pt scored mild risk for suicide per screening. SENIOR RISK ANALYST notified. 1:1 not deemed necessary. Pt does not have plan or want to follow through with suicidal thoughts per patient.
[2025-03-16] VITALS (8 sets, daily range): BP systolic 144–168; BP diastolic 72–100; PULSE 104; BMI 29.9
[2025-03-16] MEDS: TYLENOL 650 MG PO ×6 (03:29→23:19)
[2025-03-16] MEDS: MELATONIN 3 MG PO (04:14)
[2025-03-16] MEDS: ABILIFY 2 MG PO (08:01)
[2025-03-16] MEDS: ZETIA 10 MG PO (08:01)
[2025-03-16] MEDS: TOPROL XL 12.5 MG PO (08:02)
[2025-03-16] MEDS: NORVASC 2.5 MG PO ×2 (08:02→20:44)
[2025-03-16] MEDS: RITALIN 30 MG PO (08:02)
[2025-03-16] MEDS: ZOLOFT 100 MG PO ×2 (08:02→20:44)
[2025-03-16] MEDS: DECADRON 6 MG IV (08:03)
[2025-03-16 08:10] LABS: Glucose - Point of Care 160 mg/dl (70-99)
[2025-03-16] MEDS: DILAUDID 0.5 MG IV ×4 (08:17→23:20)
[2025-03-16] MEDS: NOVOLOG FLEXPEN-LOW RESISTANCE 1 UNITS SC ×2 (08:22→17:43)
[2025-03-16 10:09] LABS: Glycohemoglobin (HgbA1c) 4.9 % (4.0-5.6)
[2025-03-16 11:30] LABS: % Basophils 0.2 % (0-2); % Eosinophils 0.2 % (0-6); % Immature Granulocytes 0.3 % (0-0.5); % Lymphocytes 8.3 % (20.5-51.1); % Monocytes 1.9 % (1.7-9.3); % Neutrophils 89.1 % (42.2-75.2); Absolute Lymphocytes 0.5 10^3/uL (1.2-3.4); Absolute Monocytes 0.1 10^3/uL (0.1-0.6); Absolute Neutrophils 5.8 10^3/uL (1.4-6.5); Hematocrit 32.5 % (39.0-52.0); Hemoglobin 11.4 g/dL (13.0-18.0); Mean Corp Hgb Conc. 35.1 g/dL (33.0-37.0); Mean Corpuscular Hgb 35.3 pg (27.0-31.0); Mean Corpuscular Volume 100.6 fL (80.0-94.0); Mean Platelet Volume 12.2 fL (7.4-10.4); Nucleated Red Blood Cells % 0 % (-); Platelet Count 225 10^3/uL (130-400); Red Blood Cell Count 3.23 10^6/uL (4.70-6.10); Red Cell Dist. Width 13.6 % (11.5-14.5); White Blood Cell Count 6.5 10^3/uL (4.8-10.8)
[2025-03-16 11:41] LABS: Glucose - Point of Care 281 mg/dl (70-99)
--- NOTE | 2025-03-16 11:46 | W.PN.HOSP.TC ---
Today's Communication/Plan
-
Vascular recs
US graft pendign
HD per nephro
pain control
PT
Assessment / Plan
Assessment / Plan
General: Well Developed, Well Nourished, Appears in Distress and Pain
HEENT: NormoCephalic, Moist mucous membranes and Atraumatic
Respiratory: Clear
Cardiac: S1/S2 and Irregular Rhythm (Was in normal sinus rhythm and now converted to A-fib); No Murmur or Rub
GI: Soft, Non Tender, Non Distended and Normal Bowel Sounds; No Organomegaly
Rectal: Deferred by Provider
Musculoskeletal: No Clubbing, No Cyanosis and No Edema, RUE AVF sutures noted.
Skin: No Rash
Neuro: Awake, Alert, Oriented, AO x 3, No Motor Deficits and Nonfocal/grossly intact
Psych: Calm
#Lower back pain likely secondary to lumbar radiculopathy-IMPROVING
#History of lumbar fusion
Patient with recent MRI 4 weeks ago with severe lumbar spinal narrowing
Decrease steroids
Pain control. Flexeril.
umbar spine x-ray Postoperative and multilevel degenerative changes of the lumbar spine without acute fracture or complication.
Physical therapy evaluation
#Hyperkalemia
#ESRD on hemodialysis
#ESRD related anemia
Status post temporizing measure in the ER
K downtrended.
HD per nephro-his OP schedule MWF.
#AVF bleeding
-s/p emergent sutures placed by vascular surgery for bleeding post HD on 03/16.
-US Graft pending
-Hgb stable.
-Vascular following
ASCVD (CAD, PAD, Carotid Disease, CVA / TIA) with Dyslipidemia
CAD s/p CABG s/p recent stents 11/17
Continue with Plavix and Eliquis
Continue with high-dose of statin
Monitor on telemetry
Follows w/[facility] Dr. Serra
Parox A. Fib
Continue with metoprolol
Continue with Eliquis
Monitor on telemetry
Primary hypertension
Continue with Norvasc
Volume removal should also help with blood pressure
Diabetes mellitus type 2
Insulin sliding scale and Accu-Chek
Hold Ozempic for now
Depression/ADHD/anxiety
Continue with home dose of Abilify/Ritalin/Zoloft and Ativan
History of CML
DVT prophylaxis with Eliquis
Full code
Anticipated Discharge: > 48 hours
Subjective/Interval History
-
Date of Service: March 16, 2025
ambulating in room
states of intermittent back pain
Objective Data
-
Labs:
Laboratory Results
03/16/25
07:10
WBC 6.5
Hgb 11.4 L
Hct 32.5 L
Plt Count 225
Sodium Cancelled
Potassium Cancelled
Chloride Cancelled
Carbon Dioxide Cancelled
BUN Cancelled
Creatinine Cancelled
Glucose Cancelled
Calcium Cancelled
Vital Signs:
Vital Signs
Temp Pulse Resp BP Pulse Ox
98.0 F 87 18 168/93 97
03/16/25 07:30 03/16/25 08:02 03/16/25 07:30 03/16/25 08:02 03/16/25 08:00
I&O
03/15/25 03/16/25 03/17/25
06:59 06:59 06:59
Intake Total 720 / 720
Output Total 200 / 200
Balance 520 / 520
--- NOTE | 2025-03-16 12:13 | W.PN.VS ---
Today's Communication / Plan
-
See below.
Assessment/Plan
-
Assessment: 69-year-old male presenting emergently with prolonged bleeding via AV fistula from HD session on 03/15/2025
Plan:
Tentatively placed on OR schedule for tomorrow for right upper extremity fistulogram with Dr. Fantasma Atkinson
N.p.o. at midnight
Subjective Data
-
Date of Service: March 16, 2025
Patient seen and examined at bedside, offers no complaints. Reports continued hemostasis following suture placement.
Objective Data
-
Vital Signs
Temp Pulse Resp BP Pulse Ox
98.0 F 87 18 168/93 97
03/16/25 07:30 03/16/25 08:02 03/16/25 07:30 03/16/25 08:02 03/16/25 08:00
Intake and Output
03/15/25 03/16/25 03/17/25
06:59 06:59 06:59
Intake Total 720 / 720
Output Total 200 / 200
Balance 520 / 520
Intake:
Oral fluids 720 / 720
IV fluids (Total) 0 / 0
IV piggybacks 0 / 0
Output:
Urine, Voided 200 / 200
Lab Results
03/16/25 07:10
03/16/25 07:10
Calcium Cancelled 03/16/25 07:10
Total Bilirubin 0.5 mg/dl (0.2-1.3) 03/15/25 07:49
AST 21 U/L (17-59) 03/15/25 07:49
ALT 43 U/L (0-50) 03/15/25 07:49
Alkaline Phosphatase 115 U/L (38-126) 03/15/25 07:49
Total Protein 6.9 g/dl (6.3-8.2) 03/15/25 07:49
Albumin 4.6 g/dl (3.5-5.0) 03/15/25 07:49
Physical Exam
-
No apparent distress, resting in bed comfortably
No tachycardia
No dyspnea on room air
Right upper extremity fistula with positive thrill, [address] CDI , no evidence of bleeding , right hand warm
--- NOTE | 2025-03-16 12:35 | CM ---
Addendum entered by Kelly Em 03/16/25 12:42:
Pt reports no suicidal ideation
Original Note:
Initial assessment completed
Lives with is in a 2SH with ramp access; FF set-up
Independent, ambulates with rolling walker
DME - rolling walker, SPC, shower chair, tub grab bars
SNF - [facility] in past
HH - [facility] in past
Has ride at d/c
PCP - [facility]
Pharm - [facility]
HD - [facility] on [address] - MWF
PT eval pending
Poss OR tomorrow for RUE fistulogram
Plan - anticipate home no needs when medically stable
[2025-03-16] MEDS: ATIVAN 1 MG PO ×3 (12:38→22:22)
[2025-03-16] MEDS: NOVOLOG FLEXPEN-LOW RESISTANCE 3 UNITS SC (12:39)
--- NOTE | 2025-03-16 14:08 | W.PN.NEPH.PH ---
Today's Communication / Plan
-
HD tomorrow
Assessment/Plan
-
Impression:
Lower back pain likely secondary to lumbar radiculopathy
History of lumbar fusion
Hyperkalemia
ESRD MWF, [facility]
Status post elective cardiac catheterization with stenting
PAF now in AFIB
DM
CABG hx
Anemia
PVD
LUE AVG/CVC
Hyperphosphatemia
HTN
Diabetic neuropathy
Secondary hyperparathyroidism
Coronary artery disease with previous stenting
Left anterior chest wall dialysis catheter
Angioplasty outflow stenoses AV fistula
Plan:
A/w back pain
HD tomorrow, orders provided
Hemoglobin stable at 11.4 despite diffuse bleeding from vascular access site last evening on dialysis
he is significantly over his EDW-try UF as much as possible
BP stable
renal diet and FR must
pain control
Vascular surgery tomorrow for right upper extremity AV fistula gram
-
-
Date of Service: March 16, 2025
CC / HPI / ROS
-
Chief Complaint:
ESRD
History of Present Illness:
ESRD Saturday
Hemoglobin 11.4 despite significant hemorrhage from access on evening of 03/15/2025
Review of Systems:
Back pain
No chest pain or shortness of breath
Labs
-
Labs:
WBC 6.5 10^3/uL (4.8-10.8) 03/16/25 07:10
RBC 3.23 10^6/uL (4.70-6.10) L 03/16/25 07:10
Hgb 11.4 g/dL (13.0-18.0) L 03/16/25 07:10
Hct 32.5 % (39.0-52.0) L 03/16/25 07:10
Plt Count 225 10^3/uL (130-400) 03/16/25 07:10
Sodium Cancelled 03/16/25 07:10
Potassium Cancelled 03/16/25 07:10
Chloride Cancelled 03/16/25 07:10
Carbon Dioxide Cancelled 03/16/25 07:10
BUN Cancelled 03/16/25 07:10
Creatinine Cancelled 03/16/25 07:10
eGFR Cancelled 03/16/25 07:10
Glucose Cancelled 03/16/25 07:10
Calcium Cancelled 03/16/25 07:10
Albumin 4.6 g/dl (3.5-5.0) 03/15/25 07:49
Physical Exam
-
Vital Signs:
Vital Signs
Temp Pulse Resp BP Pulse Ox
98.0 F 94 18 162/83 98
03/16/25 11:15 03/16/25 11:15 03/16/25 11:15 03/16/25 11:15 03/16/25 11:15
Cardiovascular:: Regular rate and rhythm
Respiratory:: Bilateral: CTA
Lung Excursion:: Normal
Abdomen:: Distended, Nontender and Soft
Extremity Edema:: None: Bilateral:
Luther Catheter: No
Other Findings::
Right upper extremity AV fistula with good thrill and bruit: sutures noted
[2025-03-16 17:12] LABS: Glucose - Point of Care 159 mg/dl (70-99)
[2025-03-16] MEDS: ELIQUIS 5 MG PO (20:47)
[2025-03-16 21:28] LABS: Glucose - Point of Care 155 mg/dl (70-99)
[2025-03-16] MEDS: LIPITOR 80 MG PO (22:27)
[2025-03-17] VITALS (14 sets, daily range): BP systolic 113–168; BP diastolic 68–92; BMI 30.2
[2025-03-17] MEDS: TYLENOL 650 MG PO ×6 (03:05→23:07)
[2025-03-17 07:37] LABS: % Basophils 0.1 % (0-2); % Eosinophils 0.5 % (0-6); % Immature Granulocytes 0.5 % (0-0.5); % Monocytes 11.5 % (1.7-9.3); % Neutrophils 67.4 % (42.2-75.2); Absolute Eosinophils 0.1 10^3/uL (0-0.7); Absolute Immature Granulocytes 0.1 10^3/uL (0-0.05); Absolute Lymphocytes 2.1 10^3/uL (1.2-3.4); Absolute Monocytes 1.2 10^3/uL (0.1-0.6); Hematocrit 27.2 % (39.0-52.0); Hemoglobin 9.7 g/dL (13.0-18.0); Mean Corp Hgb Conc. 35.7 g/dL (33.0-37.0); Mean Corpuscular Hgb 35.1 pg (27.0-31.0); Mean Corpuscular Volume 98.6 fL (80.0-94.0); Mean Platelet Volume 11.2 fL (7.4-10.4); Nucleated Red Blood Cells % 0 % (-); Platelet Count 196 10^3/uL (130-400); Red Blood Cell Count 2.76 10^6/uL (4.70-6.10); Red Cell Dist. Width 13.7 % (11.5-14.5); White Blood Cell Count 10.3 10^3/uL (4.8-10.8)
[2025-03-17 08:05] LABS: Glucose - Point of Care 118 mg/dl (70-99)
[2025-03-17 08:15] LABS: Blood Urea Nitrogen 112 mg/dl (9-20); Calcium 9.3 mg/dl (8.4-10.2); Carbon Dioxide 20 mmol/L (22-30); Chloride 92 mmol/L (98-107); Glucose 108 mg/dl (70-99); Sodium 132 mmol/L (135-145)
--- NOTE | 2025-03-17 08:19 | CM ---
CM following for discharge planning. Pt for HD today and vascular surgery tomorrow for R UE fistulagram.
Plan: Home with no anticipated needs; Resumption of dialysis at [facility] when medically stable. PT recommends outpatient PT.
[2025-03-17 08:28] LABS: Estimated Creatinine Clearance 8 ml/min
[2025-03-17] MEDS: NOVOLOG FLEXPEN-LOW RESISTANCE SC (08:33)
[2025-03-17] MEDS: ZOLOFT 100 MG PO ×2 (08:57→20:35)
[2025-03-17] MEDS: ELIQUIS 5 MG PO ×2 (08:57→20:35)
[2025-03-17] MEDS: ZETIA 10 MG PO (08:58)
[2025-03-17] MEDS: PLAVIX 75 MG PO (08:58)
[2025-03-17] MEDS: TOPROL XL 12.5 MG PO (08:58)
[2025-03-17] MEDS: RITALIN 30 MG PO (08:58)
[2025-03-17] MEDS: ABILIFY 2 MG PO (08:58)
[2025-03-17] MEDS: DECADRON 6 MG IV (08:59)
[2025-03-17] MEDS: NEPHROCAP 1 CAPSULE PO (09:04)
--- NOTE | 2025-03-17 09:33 | W.PN.NEPH.HD ---
Assessment
-
Seen on dialysis tolerating treatment AV fistula pressures normal. Pending fistulogram secondary to prolonged bleeding
Progress Note - Hemodialysis
-
Date of Service: March 17, 2025
Duration: 30 minutes and 3 hours
Potassium Bath: 2
Calcium Bath: 2.5
Opti-Dialyzer: 160
Ultrafiltration: Other (4kg)
Blood Flow: 400
Dialysate Flow: 600
Heparin: no
EPO: no
--- NOTE | 2025-03-17 11:24 | W.PN.HOSP.TC ---
Today's Communication/Plan
-
OR today
monitoring for bleeding post HD
Nephro/Vascular recs
Assessment / Plan
Assessment / Plan
General: Well Developed, Well Nourished, Appears in Distress and Pain
HEENT: NormoCephalic, Moist mucous membranes and Atraumatic
Respiratory: Clear
Cardiac: S1/S2 and Irregular Rhythm (Was in normal sinus rhythm and now converted to A-fib); No Murmur or Rub
GI: Soft, Non Tender, Non Distended and Normal Bowel Sounds; No Organomegaly
Rectal: Deferred by Provider
Musculoskeletal: No Clubbing, No Cyanosis and No Edema, RUE AVF sutures noted.
Skin: No Rash
Neuro: Awake, Alert, Oriented, AO x 3, No Motor Deficits and Nonfocal/grossly intact
Psych: Calm
#Lower back pain likely secondary to lumbar radiculopathy-IMPROVING
#History of lumbar fusion
Patient with recent MRI 4 weeks ago with severe lumbar spinal narrowing
Decrease steroids
Pain control. Flexeril.
umbar spine x-ray Postoperative and multilevel degenerative changes of the lumbar spine without acute fracture or complication.
Physical therapy evaluation
improved
#Hyperkalemia
#ESRD on hemodialysis
#ESRD related anemia
Status post temporizing measure in the ER
K downtrended.
HD today with ongoing volume removal on each HD session
HD per nephro-his OP schedule MWF.
#AVF bleeding
-s/p emergent sutures placed by vascular surgery for bleeding post HD on 03/16.
-US Graft noted
-Plan for OR today-right upper extremity fistulogram
-Hgb stable.
-Vascular following
ASCVD (CAD, PAD, Carotid Disease, CVA / TIA) with Dyslipidemia
CAD s/p CABG s/p recent stents 11/17
Continue with Plavix and Eliquis
Continue with high-dose of statin
Monitor on telemetry
Follows w/[facility] Dr. Serra
Parox A. Fib
Continue with metoprolol
can increase dose of toprol if needed
Continue with Eliquis
Monitor on telemetry
Primary hypertension
Continue with Norvasc
Volume removal should also help with blood pressure
Diabetes mellitus type 2
Insulin sliding scale and Accu-Chek
Hold Ozempic for now
Depression/ADHD/anxiety
Continue with home dose of Abilify/Ritalin/Zoloft and Ativan
History of CML
DVT prophylaxis with Eliquis
Full code
Anticipated Discharge: > 48 hours
Subjective/Interval History
-
Date of Service: March 17, 2025
seen on HD
went back into afib HR [id number] down after BB
Objective Data
-
Labs:
Laboratory Results
03/17/25
06:58
WBC 10.3
Hgb 9.7 L
Hct 27.2 L
Plt Count 196
PT Pending
INR Pending
APTT Pending
Sodium 132 L
Potassium 5.0 D
Chloride 92 L
Carbon Dioxide 20 L
BUN 112 H*
Creatinine 9.8 H*
Glucose 108 H
Calcium 9.3
Vital Signs:
Vital Signs
Temp Pulse Resp BP Pulse Ox
97.7 F 125 18 126/66 98
03/17/25 03:26 03/17/25 08:58 03/17/25 03:26 03/17/25 08:58 03/17/25 03:26
I&O
03/16/25 03/17/25 03/18/25
06:59 06:59 06:59
Intake Total 720 / 720 1200 / 1200
Output Total 200 / 200
Balance 520 / 520 1200 / 1200
[2025-03-17] MEDS: DILAUDID 0.5 MG IV ×3 (11:47→23:09)
[2025-03-17] MEDS: ATIVAN 1 MG PO ×3 (11:47→21:54)
[2025-03-17] MEDS: NORVASC 2.5 MG PO ×2 (11:49→20:34)
[2025-03-17 11:57] LABS: Glucose - Point of Care 189 mg/dl (70-99)
[2025-03-17] MEDS: NOVOLOG FLEXPEN-LOW RESISTANCE 1 UNITS SC ×2 (11:59→18:45)
[2025-03-17] MEDS: BENADRYL 25 MG IV (14:43)
[2025-03-17] MEDS: SOLU-CORTEF 100 MG IV (14:45)
[2025-03-17 15:05] LABS: INR 1.18; PT 15.5 Sec (11.4-14.6)
[2025-03-17 15:06] LABS: APTT 32.7 Sec (23.4-35.0)
--- NOTE | 2025-03-17 15:25 | W.PN.UPDATE ---
Update Note
Progress Note Update
Discussed with patient right upper extremity fistulogram/central venogram, possible angioplasty/stent. Discussed indication, mainly recurrent bleeding after hemodialysis, with current bleeding episode requiring emergency room evaluation, suture
placement and inpatient admission. Discussed therefore raises some concern for central venous or outflow vein stenosis. Risk/benefits/alternatives of fistulogram fully discussed. Risks include but not limited to bleeding complications, clotting
complications discussed. He understands all wishes to proceed.
--- NOTE | 2025-03-17 16:30 | W.SUR.POST ---
Surgical Immediate Post Op
Note
Pre Op Diagnosis: ESRD, prolonged bleeding after hemodialysis
Post Op Diagnosis: Same
Procedure Performed: Right upper extremity fistulogram with angioplasty of outflow vein stenosis with standard balloon, high-pressure balloon, and cutting balloon and placement of outflow vein stent
Primary Surgeon: Fantasma Atkinson MD
Secondary Surgeons: N/A
Anesthesia: MAC
Estimated Blood Loss: 3ml
Fluids: See anesthesia flowsheet
Drains/Shunts: N/A
Specimens/Cultures: N/A
Doppler/Duplex/Angio (Y/N): Y
Complications: None
Operative Findings: Successful thrill and AVF following procedure
[2025-03-17 16:50] LABS: Glucose - Point of Care 151 mg/dl (70-99)
--- NOTE | 2025-03-17 17:31 | OR.RPT ---
Operative Report
Operative Report
PROCEDURE DATE: 03/17/2025
Preoperative diagnosis:
1. End-stage renal disease on hemodialysis.
2. Prolonged bleeding after dialysis, requiring emergency room visit and inpatient admission. Suspicion of outflow vein stenosis.
Postoperative diagnosis: Same
Procedure:
1. Duplex assisted cannulation of right upper extremity arteriovenous fistula.
2. Balloon angioplasty of long segment outflow vein stenosis with 7 mm and 8 mm angioplasty balloon.
3. Balloon angioplasty of recalcitrant segment of vein stenosis with 6 mm high-pressure angioplasty balloon, 6 mm cutting balloon as well.
4. Placement of atrium iCAST 7 mm x 22 mm covered stent recalcitrant severe outflow vein stenosis.
5. Central venogram.
Surgeon: Demetrio
Property Portfolio Officer: None
Complications: None
Anesthesia: Local, sedation
Fluoroscopy:
4.6 min
16.32 mGy
3.73 gy.cm2
Indications for procedure:
Severe bleeding after hemodialysis. Risk/benefits/alternatives of fistulogram also discussed. Patient understood all wished to proceed.
Description of procedure:
Patient was identified, brought to the operating room. Placed on the table in the supine position. After the adequate administration of anesthesia, the patient was prepped and draped in the standard surgical fashion. A standard preoperative
timeout was undertaken and everybody was in agreement with the plan.
Right upper extremity fistula punctured with a micropuncture kit under direct duplex ultrasound guidance in a central facing direction in the distal upper arm. 6 [place] sheath then advanced over a 0.035 inch wire. Fistulogram obtained. Just
distal to sheath entry site there was a pseudoaneurysm, likely chronic. Beyond here there was severe outflow vein stenosis, most severe in the immediate segment of outflow to the pseudoaneurysmal segment, but diffusely over the course of 8 to 10
cm. Beyond here there was a stent that was patent. Central venogram demonstrated patent central veins with mild stenosis of the right brachiocephalic vein. At this point central venous wire access was obtained. I then performed balloon
angioplasty of the long segment stenosis with a 7 mm balloon. Completion angiogram demonstrated improvement generally, but the immediate area adjacent to the sheath still was severely stenotic. I therefore then used a 6 mm high-pressure balloon.
There was no waist in the balloon, but completion angiogram still demonstrated significant stenosis. I therefore then used a 6 mm cutting balloon. Completion angiogram still demonstrated a significant stenosis and again there was no waist in the
balloon when it was inflated (of note I exchanged for a 0.018 inch wire prior to placing the cutting balloon). An 8 mm angioplasty balloon was then utilized to see if it would expand following cutting balloon. Again the balloon was profiled, but
completion angiogram demonstrated still severe residual stenosis. At this point I upsized to a 7 [place] sheath over a 0.035 inch wire. I then placed an Atrium iCAST 7 mm x 22 mm covered stent (balloon mounted) in the severely stenotic area. I
also then ballooned the entirety of the segment of vein with a 7 mm long angioplasty balloon. Completion angiogram now demonstrated a good result with no significant residual stenosis. At this point I was very satisfied. Angiography with
compression of the fistula demonstrated good reflux across anastomosis with no anastomotic stenosis. Wires and catheters were withdrawn. A 4-0 Monocryl pursestring stitch was placed around the sheath entry site and was tied down as the sheath was
withdrawn. Manual pressure was also applied. Hemostasis was achieved. The patient tolerated procedure well.
--- NOTE | 2025-03-17 17:54 | SUR.PHASEI ---
comfortable in pacu, awake and alert, right arm elevated on pillow - dressing intact right arm.quarter size bulge above dressing - same as preop. no bleeding. + bruit or thrill.
[2025-03-17 20:32] LABS: COVID-19 Antigen Negative (Negative)
[2025-03-17 21:07] LABS: Glucose - Point of Care 207 mg/dl (70-99)
[2025-03-17] MEDS: LIPITOR 80 MG PO (21:55)
[2025-03-17] MEDS: ROXICODONE 5 MG PO (21:55)
[2025-03-18 03:24] VITALS: BP 163/79
[2025-03-18] MEDS: TYLENOL 650 MG PO ×5 (04:01→20:13)
[2025-03-18 05:53] VITALS: BMI 29.3
[2025-03-18 06:25] LABS: Blood Urea Nitrogen 75 mg/dl (9-20); Carbon Dioxide 27 mmol/L (22-30); Chloride 92 mmol/L (98-107); Estimated Creatinine Clearance 8 ml/min; Glucose 159 mg/dl (70-99); Potassium 4.7 mmol/L (3.5-5.1); Sodium 134 mmol/L (135-145); eGFR 6.86
[2025-03-18 07:30] VITALS: BP 137/68
--- NOTE | 2025-03-18 07:44 | W.PN.VS ---
Addendum entered and electronically signed by Fantasma Atkinson MD 03/18/25 07:56:
Seen and examined with MAYELA Goodson. Agree with findings as noted below. Fistula with good thrill. No hematoma noted. Agree with plan as discussed and noted below.
Original Note:
Today's Communication / Plan
-
Seen and assessed with Dr. Atkinson
Assessment/Plan
-
Assessment: 69-year-old male presenting emergently with prolonged bleeding via AV fistula from HD session on 03/15/2025
POD 1 right upper extremity fistulogram with balloon angioplasty
Plan:
Cough drops ordered for sore throat
Strep test
okay for discharge from vascular standpoint
Subjective Data
-
Date of Service: March 18, 2025
Patient seen at bedside this a.m. with Dr. Atkinson. Patient complains of a sore throat this morning and generalized feeling unwell. Right upper extremity AVF site clean, dry, intact, + thrill
Objective Data
-
Vital Signs
Temp Pulse Resp BP Pulse Ox
98.0 F 84 16 163/79 100
03/18/25 03:24 03/18/25 03:24 03/18/25 03:24 03/18/25 03:24 03/18/25 03:24
Intake and Output
03/17/25 03/18/25 03/19/25
06:59 06:59 06:59
Intake Total 1200 / 1200 510 / 510
Balance 1200 / 1200 510 / 510
Intake:
Oral fluids 1200 / 1200 510 / 510
Other:
Number of approximated SMALL 3
amounts of urine
Number of approximated MODERATE 2 3
amounts of urine
Lab Results
03/18/25 05:56
Calcium 9.0 mg/dl (8.4-10.2) 03/18/25 05:56
Total Bilirubin 0.5 mg/dl (0.2-1.3) 03/15/25 07:49
AST 21 U/L (17-59) 03/15/25 07:49
ALT 43 U/L (0-50) 03/15/25 07:49
Alkaline Phosphatase 115 U/L (38-126) 03/15/25 07:49
Total Protein 6.9 g/dl (6.3-8.2) 03/15/25 07:49
Albumin 4.6 g/dl (3.5-5.0) 03/15/25 07:49
Physical Exam
-
AAO x 3
No tachypnea on room air
No tachycardia
Abdomen soft
Right upper extremity AVF site clean, dry, intact, soft, +thrill
Hand warm and pink
[2025-03-18 07:46] LABS: % Basophils 0.2 % (0-2); % Eosinophils 0.2 % (0-6); % Immature Granulocytes 0.5 % (0-0.5); % Monocytes 14.5 % (1.7-9.3); % Neutrophils 64.6 % (42.2-75.2); Absolute Immature Granulocytes 0.1 10^3/uL (0-0.05); Absolute Lymphocytes 2.5 10^3/uL (1.2-3.4); Absolute Monocytes 1.8 10^3/uL (0.1-0.6); Absolute Neutrophils 8.1 10^3/uL (1.4-6.5); Hematocrit 30.6 % (39.0-52.0); Hemoglobin 10.9 g/dL (13.0-18.0); Mean Corp Hgb Conc. 35.6 g/dL (33.0-37.0); Mean Corpuscular Hgb 35.5 pg (27.0-31.0); Mean Corpuscular Volume 99.7 fL (80.0-94.0); Mean Platelet Volume 11.6 fL (7.4-10.4); Nucleated Red Blood Cells % 0 % (-); Platelet Count 227 10^3/uL (130-400); Red Blood Cell Count 3.07 10^6/uL (4.70-6.10); Red Cell Dist. Width 13.7 % (11.5-14.5); White Blood Cell Count 12.5 10^3/uL (4.8-10.8)
[2025-03-18] MEDS: ELIQUIS 5 MG PO ×2 (08:12→20:14)
[2025-03-18] MEDS: ZETIA 10 MG PO (08:12)
[2025-03-18] MEDS: ZOLOFT 100 MG PO ×2 (08:12→20:28)
[2025-03-18] MEDS: ABILIFY 2 MG PO (08:12)
[2025-03-18] MEDS: RITALIN 30 MG PO (08:12)
[2025-03-18] MEDS: TOPROL XL 12.5 MG PO (08:13)
[2025-03-18] MEDS: PLAVIX 75 MG PO (08:13)
[2025-03-18] MEDS: NORVASC 2.5 MG PO ×2 (08:13→20:13)
[2025-03-18] MEDS: DECADRON 6 MG IV (08:13)
[2025-03-18 08:22] LABS: Glucose - Point of Care 159 mg/dl (70-99)
[2025-03-18] MEDS: NOVOLOG FLEXPEN-LOW RESISTANCE 1 UNITS SC ×2 (08:23→18:21)
[2025-03-18] MEDS: DILAUDID 0.5 MG IV ×4 (08:28→22:29)
[2025-03-18 09:16] VITALS: BMI 29.3
[2025-03-18 11:15] VITALS: BP 152/81
--- NOTE | 2025-03-18 11:33 | W.PN.HOSP.TC ---
Today's Communication/Plan
-
HD tomorrow and monitor for any episodes of bleeding
If stable post HD DC home
Outpatient therapy
Start disposition
Assessment / Plan
Assessment / Plan
General: Well Developed, Well Nourished, Appears in Distress and Pain
HEENT: NormoCephalic, Moist mucous membranes and Atraumatic
Respiratory: Clear
Cardiac: S1/S2 and Irregular Rhythm (Was in normal sinus rhythm and now converted to A-fib); No Murmur or Rub
GI: Soft, Non Tender, Non Distended and Normal Bowel Sounds; No Organomegaly
Rectal: Deferred by Provider
Musculoskeletal: No Clubbing, No Cyanosis and No Edema, RUE AVF sutures noted.
Skin: No Rash
Neuro: Awake, Alert, Oriented, AO x 3, No Motor Deficits and Nonfocal/grossly intact
Psych: Calm
#Lower back pain likely secondary to lumbar radiculopathy-IMPROVING
#History of lumbar fusion
Patient with recent MRI 4 weeks ago with severe lumbar spinal narrowing
Continue with steroids probably taper regimen on discharge.
Pain control. Flexeril.
umbar spine x-ray Postoperative and multilevel degenerative changes of the lumbar spine without acute fracture or complication.
Physical therapy evaluation outpatient therapy
improved
#Hyperkalemia
#ESRD on hemodialysis
#ESRD related anemia
Status post temporizing measure in the ER
K downtrended.
HD today with ongoing volume removal on each HD session
HD per nephro-his OP schedule MWF.
#AVF bleeding
-s/p emergent sutures placed by vascular surgery for bleeding post HD on 03/16.
-US Graft noted
- Status post right upper extremity fistulogram with balloon angioplasty on 03/17
-Hgb stable.
-Vascular following
ASCVD (CAD, PAD, Carotid Disease, CVA / TIA) with Dyslipidemia
CAD s/p CABG s/p recent stents 11/17
Continue with Plavix and Eliquis
Continue with high-dose of statin
Monitor on telemetry
Follows w/[facility] Dr. Serra has appointment in 2 weeks
Parox A. Fib
Continue with metoprolol
can increase dose of toprol if needed
Continue with Eliquis
Monitor on telemetry
Primary hypertension
Continue with Norvasc
Volume removal should also help with blood pressure
Diabetes mellitus type 2
Insulin sliding scale and Accu-Chek
Hold Ozempic for now
Depression/ADHD/anxiety
Continue with home dose of Abilify/Ritalin/Zoloft and Ativan
Sore throat
COVID influenza negative rapid strep ordered by surgery
Likely postop due to anesthesia/ETT
Cough drop lozenges
History of CML
DVT prophylaxis with Eliquis
Full code
Anticipated Discharge: Within 24 hours
Subjective/Interval History
-
Date of Service: March 18, 2025
Sitting in chair
States overall sore throat
Objective Data
-
Labs:
Laboratory Results
03/18/25
05:56
WBC 12.5 H
Hgb 10.9 L
Hct 30.6 L
Plt Count 227
Sodium 134 L
Potassium 4.7
Chloride 92 L
Carbon Dioxide 27
BUN 75 H
Creatinine 7.9 H*
Glucose 159 H
Calcium 9.0
Vital Signs:
Vital Signs
Temp Pulse Resp BP Pulse Ox
97.9 F 84 17 163/79 100
03/18/25 07:30 03/18/25 08:13 03/18/25 07:30 03/18/25 08:13 03/18/25 10:28
I&O
03/17/25 03/18/25 03/19/25
06:59 06:59 06:59
Intake Total 1200 / 1200 510 / 510
Balance 1200 / 1200 510 / 510
[2025-03-18 12:06] LABS: Glucose - Point of Care 203 mg/dl (70-99)
--- NOTE | 2025-03-18 12:16 | W.PN.NEPH.PH ---
Today's Communication / Plan
-
Dialysis tomorrow
Assessment/Plan
-
Impression:
Lower back pain likely secondary to lumbar radiculopathy
History of lumbar fusion
Hyperkalemia
ESRD MWF, [facility]
Status post elective cardiac catheterization with stenting
PAF now in AFIB
DM
CABG hx
Anemia
PVD
LUE AVG/CVC
Hyperphosphatemia
HTN
Diabetic neuropathy
Secondary hyperparathyroidism
Coronary artery disease with previous stenting
Left anterior chest wall dialysis catheter
Angioplasty outflow stenoses AV fistula
Plan:
A/w back pain
HD tomorrow, orders provided
Status post fistulogram and balloon angioplasty
Will use the fistula tomorrow for dialysis. No issues with it the last treatment no prolonged bleeding prior to angioplasty
Vascular correspondence noted
-
-
Date of Service: March 18, 2025
CC / HPI / ROS
-
Chief Complaint:
ESRD
History of Present Illness:
ESRD Saturday
Status post hemorrhage from access on evening of 03/15/2025
Review of Systems:
Back pain
No chest pain or shortness of breath
Labs
-
Labs:
WBC 12.5 10^3/uL (4.8-10.8) H 03/18/25 05:56
RBC 3.07 10^6/uL (4.70-6.10) L 03/18/25 05:56
Hgb 10.9 g/dL (13.0-18.0) L 03/18/25 05:56
Hct 30.6 % (39.0-52.0) L 03/18/25 05:56
Plt Count 227 10^3/uL (130-400) 03/18/25 05:56
Sodium 134 mmol/L (135-145) L 03/18/25 05:56
Potassium 4.7 mmol/L (3.5-5.1) 03/18/25 05:56
Chloride 92 mmol/L (98-107) L 03/18/25 05:56
Carbon Dioxide 27 mmol/L (22-30) 03/18/25 05:56
BUN 75 mg/dl (9-20) H 03/18/25 05:56
Creatinine 7.9 mg/dL (0.7-1.3) H* 03/18/25 05:56
eGFR 6.86 03/18/25 05:56
Glucose 159 mg/dl (70-99) H 03/18/25 05:56
Calcium 9.0 mg/dl (8.4-10.2) 03/18/25 05:56
Albumin 4.6 g/dl (3.5-5.0) 03/15/25 07:49
Physical Exam
-
Vital Signs:
Vital Signs
Temp Pulse Resp BP Pulse Ox
98.3 F 88 17 152/81 95
03/18/25 11:15 03/18/25 11:15 03/18/25 11:15 03/18/25 11:15 03/18/25 11:15
Cardiovascular:: Regular rate and rhythm
Respiratory:: Bilateral: CTA
Lung Excursion:: Normal
Abdomen:: Distended, Nontender and Soft
Extremity Edema:: None: Bilateral:
Luther Catheter: No
Other Findings::
Right upper extremity AV fistula with good thrill and bruit: sutures noted
--- NOTE | 2025-03-18 12:37 | CM ---
Chart reviewed; met with pt
s/p right upper extremity fistulogram with balloon angioplasty yesterday
For HD tomorrow - poss d/c after
Reviewed IMM
Will have transport home -
Plan - anticipate home no needs
[2025-03-18] MEDS: ATIVAN 1 MG PO ×3 (12:43→21:25)
[2025-03-18] MEDS: NOVOLOG FLEXPEN-LOW RESISTANCE 2 UNITS SC (12:44)
[2025-03-18 15:25] VITALS: BP 136/57
--- NOTE | 2025-03-18 16:51 | PN.CDI ---
CDI
- -
CDI:
Physician Documentation Request
Admit Date: 03/15/25 12:19
Dear Doctor Ismael,
Please review the following and provide your response in the progress notes.
Clinical Indicators:
Pt admitted with Lumbar radiculopathy/ Bleeding AV fistula with stenosis s/p Stenting /ESRD on HD
Sodium levels are as below
03/17/25 03/18/25
06:58 05:56
Sodium 132 L 134 L
Based on the above, could you clarify in the progress notes, the appropriate diagnosis, if significant, that supports the above abnormalities and additional evaluation, monitoring and/or treatment rendered:
Hyponatremia
Abnormal lab value only
Other ( please specify)
Use of terms such as suspected, likely, concern for, or probable (associated with a specific diagnosis that is being evaluated, monitored, or treated as if it exists) are acceptable and can be coded in the inpatient setting, when documented at the
time of discharge.
Thank you,
Luz Cuello RN
CDI Specialist
[place] [facility]
Please use your independent medical judgment in providing your response.
--- NOTE | 2025-03-18 16:56 | PN.CDI ---
CDI
- -
CDI:
Physician Documentation Request
Admit Date: 03/15/25 12:19
Dear Doctor Ismael,
Please review the following and provide your response in the progress notes.
Clinical Indicators:
Pt admitted with Lumbar radiculopathy/ Bleeding AV fistula with stenosis s/p Stenting /ESRD on HD
CXR 03/15 ,'Mildly increased vascular markings bilaterally, nonspecific. This could represent mild interstitial edema...'
Pt with a HX of Diastolic CHF per nephrology consult
Dialysis note 03/15 ,' UF as much tolerates, 10kg over EDW he may have gained some body wt..Ultrafiltration: Other (4kg)...'
Dialysis 03/17 note, ' Ultrafiltration: Other (4kg)...'
Please provide a diagnosis for the above findings/treatment :
Acute on Chronic Diastolic CHF
Chronic Diastolic CHF only
Other ( please specify)
Use of terms such as suspected, likely, concern for, or probable (associated with a specific diagnosis that is being evaluated, monitored, or treated as if it exists) are acceptable and can be coded in the inpatient setting, when documented at the
time of discharge.
Thank you,
Luz Cuello RN
CDI Specialist
[place] [facility]
Please use your independent medical judgment in providing your response.
[2025-03-18 18:23] LABS: Glucose - Point of Care 156 mg/dl (70-99)
[2025-03-18 19:28] VITALS: BP 144/66
[2025-03-18] MEDS: FLEXERIL 5 MG PO (20:24)
[2025-03-18 21:18] LABS: Glucose - Point of Care 173 mg/dl (70-99)
[2025-03-18] MEDS: LIPITOR 80 MG PO (21:24)
[2025-03-18] MEDS: MELATONIN 5 MG PO (22:31)
[2025-03-18 23:00] VITALS: BP 140/65
[2025-03-18] MEDS: TYLENOL PO (23:42)
[2025-03-19] MEDS: TYLENOL PO (03:12)
[2025-03-19 03:20] VITALS: BP 147/79
[2025-03-19] MEDS: DILAUDID 0.5 MG IV ×3 (05:27→13:39)
[2025-03-19 05:32] VITALS: BMI 30.1
[2025-03-19 06:25] LABS: % Basophils 0.2 % (0-2); % Eosinophils 0.8 % (0-6); % Immature Granulocytes 0.6 % (0-0.5); % Lymphocytes 23.3 % (20.5-51.1); % Monocytes 14.3 % (1.7-9.3); % Neutrophils 60.8 % (42.2-75.2); Absolute Eosinophils 0.1 10^3/uL (0-0.7); Absolute Immature Granulocytes 0.1 10^3/uL (0-0.05); Absolute Lymphocytes 4.1 10^3/uL (1.2-3.4); Absolute Monocytes 2.5 10^3/uL (0.1-0.6); Absolute Neutrophils 10.6 10^3/uL (1.4-6.5); Hematocrit 33.6 % (39.0-52.0); Hemoglobin 11.8 g/dL (13.0-18.0); Mean Corp Hgb Conc. 35.1 g/dL (33.0-37.0); Mean Corpuscular Hgb 34.8 pg (27.0-31.0); Mean Corpuscular Volume 99.1 fL (80.0-94.0); Mean Platelet Volume 11.2 fL (7.4-10.4); Nucleated Red Blood Cells % 0.2 % (-); Platelet Count 226 10^3/uL (130-400); Red Blood Cell Count 3.39 10^6/uL (4.70-6.10); Red Cell Dist. Width 13.5 % (11.5-14.5); White Blood Cell Count 17.4 10^3/uL (4.8-10.8)
[2025-03-19 07:02] VITALS: BP 134/66
[2025-03-19 08:01] LABS: Glucose - Point of Care 146 mg/dl (70-99)
--- NOTE | 2025-03-19 08:01 | W.PN.HOSP.TC ---
Today's Communication/Plan
-
Monitor for if any fistula site bleeding post hemodialysis
HD today
Plan for tentative DC later today
Outpatient pain management follow-up
Assessment / Plan
Assessment / Plan
General: Well Developed, Well Nourished, Appears in Distress and Pain
HEENT: NormoCephalic, Moist mucous membranes and Atraumatic
Respiratory: Clear
Cardiac: S1/S2 and Irregular Rhythm (Was in normal sinus rhythm and now converted to A-fib); No Murmur or Rub
GI: Soft, Non Tender, Non Distended and Normal Bowel Sounds; No Organomegaly
Rectal: Deferred by Provider
Musculoskeletal: No Clubbing, No Cyanosis and No Edema, RUE AVF sutures noted.
Skin: No Rash
Neuro: Awake, Alert, Oriented, AO x 3, No Motor Deficits and Nonfocal/grossly intact
Psych: Calm
#Lower back pain likely secondary to lumbar radiculopathy-IMPROVING
#History of lumbar fusion
Patient with recent MRI 4 weeks ago with severe lumbar spinal narrowing
Continue with steroids probably taper regimen on discharge.
Pain control. Flexeril.
lumbar spine x-ray Postoperative and multilevel degenerative changes of the lumbar spine without acute fracture or complication.
Physical therapy evaluation outpatient therapy
improved
#Hyperkalemia
#ESRD on hemodialysis
#ESRD related anemia
#Interstitial edema due to ESRD volume overload
#Sodium value abnormal due to ESRD
Status post temporizing measure in the ER
K downtrended.
HD today with ongoing volume removal on each HD session. Monitor fistula site post HD for bleeding.
HD per nephro-his OP schedule MWF.
#AVF bleeding
-s/p emergent sutures placed by vascular surgery for bleeding post HD on 03/16.
-US Graft noted
- Status post right upper extremity fistulogram with balloon angioplasty on 03/17
-Hgb stable.
-Vascular signed off
ASCVD (CAD, PAD, Carotid Disease, CVA / TIA) with Dyslipidemia
CAD s/p CABG s/p recent stents 11/17
Continue with Plavix and Eliquis
Continue with high-dose of statin
Monitor on telemetry
Follows w/[facility] Dr. Serra has appointment in 2 weeks
Parox A. Fib
Continue with metoprolol
can increase dose of toprol if needed
Continue with Eliquis
Monitor on telemetry
Primary hypertension
Continue with Norvasc
Volume removal should also help with blood pressure
Diabetes mellitus type 2
Insulin sliding scale and Accu-Chek
Hold Ozempic for now
Depression/ADHD/anxiety
Continue with home dose of Abilify/Ritalin/Zoloft and Ativan
Sore throat
COVID influenza negative rapid strep ordered by surgery
Likely postop due to anesthesia/ETT
Cough drop lozenges
History of CML
DVT prophylaxis with Eliquis
Full code
Anticipated Discharge: Today
Subjective/Interval History
-
Date of Service: March 19, 2025
awaiting for HD
No pain at fistula site
worked with PT yesterday-back has improved
Objective Data
-
Labs:
Laboratory Results
03/19/25
05:47
WBC 17.4 H
Hgb 11.8 L
Hct 33.6 L
Plt Count 226
Vital Signs:
Vital Signs
Temp Pulse Resp BP Pulse Ox
97.6 F 68 18 134/66 92
03/19/25 07:02 03/19/25 07:02 03/19/25 07:02 03/19/25 07:02 03/19/25 07:02
I&O
03/18/25 03/19/25 03/20/25
06:59 06:59 06:59
Intake Total 510 / 510 1200 / 1200
Balance 510 / 510 1200 / 1200
[2025-03-19] MEDS: NOVOLOG FLEXPEN-LOW RESISTANCE SC ×2 (09:12→16:18)
[2025-03-19] MEDS: RITALIN 30 MG PO (09:12)
[2025-03-19] MEDS: ZOLOFT 100 MG PO (09:13)
[2025-03-19] MEDS: PLAVIX 75 MG PO (09:13)
[2025-03-19] MEDS: ABILIFY 2 MG PO (09:13)
[2025-03-19] MEDS: ZETIA 10 MG PO (09:13)
[2025-03-19] MEDS: DECADRON 6 MG IV (09:14)
[2025-03-19] MEDS: TYLENOL 650 MG PO ×3 (09:14→16:13)
[2025-03-19] MEDS: ELIQUIS 5 MG PO (09:14)
[2025-03-19] MEDS: TOPROL XL PO (09:15)
[2025-03-19] MEDS: NORVASC PO (09:15)
[2025-03-19] MEDS: NEPHROCAP 1 CAPSULE PO (09:18)
[2025-03-19 11:42] LABS: Glucose - Point of Care 230 mg/dl (70-99)
[2025-03-19] MEDS: ROXICODONE 5 MG PO ×2 (11:45→16:12)
[2025-03-19] MEDS: ATIVAN 1 MG PO ×2 (11:45→16:12)
--- NOTE | 2025-03-19 11:45 | CM ---
Addendum entered by Joslyn Brar RN 03/19/25 16:55:
Spoke with [facility] they agree with dc. She will drive him home.
Original Note:
Pt had right upper extremity fistulogram with balloon angioplasty done.
Pt has out pt HD MWF with [facility].
For HD today.
IMM done yesterday.
Possible discharge post HD evaluate.
Plan - Discharge to home resume out pt HD at home
[2025-03-19] MEDS: NOVOLOG FLEXPEN-LOW RESISTANCE 2 UNITS SC (12:01)
--- NOTE | 2025-03-19 13:50 | W.DCSUMMARY ---
Discharge Summary
Discharge Data
Date of Admission: 03/15/25
Date of Discharge: 03/19/25
-
Pending Results: No
Hospital Course
69-year-old male extensive past medical history of ESRD on hemodialysis, AV fistula,, primary hypertension, chronic back pain, hyperlipidemia, CAD status post CABG status post stents, atrial fibrillation, chronic back pain, lumbar osteoarthritis,
lumbar fusion hyperlipidemia, anxiety, ADD, who is presenting from home with complaints of severe back pain. Patient stated due to severe back pain he was unable to attend hemodialysis session. Patient was found to be volume overloaded on
admission. Patient was also found to be hyperkalemic. Patient underwent urgent hemodialysis. Post hemodialysis patient had episode of severe bleeding from the AV graft site. Emergent vascular surgery placed sutures. Bleeding stopped. Patient
was started on IV steroids and pain control for his back pain. Patient back pain improved and was able to ambulate without any difficulty. Patient underwent to the operating room by the vascular surgery for right upper extremity fistulogram with
balloon angioplasty was performed. Patient underwent hemodialysis postop and did not have any further episode of bleeding. Patient was eval by physical therapy and recommended outpatient therapy. IV steroids transition to oral steroids taper
regimen. Patient be discharged to his outpatient hemodialysis unit and recommended to follow-up with his primary pain management doctor for his chronic back pain.
Discharge Plan
-
Patient Disposition: Home (Routine Discharge)
Discharge Diagnosis/Procedures: Low back pain likely secondary to lumbar radiculopathy
Hyperkalemia
End-stage renal disease with volume overload
AV fistula bleeding status post emergent sutures status post right upper extremity fistulogram with balloon angioplasty
Condition: Fair
Diet: 2 Gram Sodium and Restrict fluids to 48 oz
Additional Diets: low potassium diet
Activity: As tolerated
Driving Restrictions: As prior to admission
Referrals:
Placido Lora Jr., DO [Family Provider] - in less than 1 week
Fantasma Atkinson MD [Active] - (Please call our office with any issues or concerns)
Prescriptions:
New
oxycodone 10 mg tablet
10 mg PO BID PRN (Reason: severe pain) Qty: 10 0RF
prednisone 20 mg tablet
40 mg PO DAILY Qty: 10 0RF
Continued
melatonin 5 MG tablet
5 mg PO HSPRN PRN (Reason: sleep)
atorvastatin 80 MG tablet
80 mg PO HS
sertraline 100 mg Tablet
100 mg PO BID
clopidogrel [Plavix] 75 mg Tablet
75 mg PO DAILY
Nephro-Michelle 0.8 mg Tablet
1 tab PO MOWEFR
coQ10 (ubiquinol) 200 mg Capsule
200 mg PO DAILY
Ozempic 0.25 mg or 0.5 mg (2 mg/3 mL) Pen Injector
0.25 mg SC GRIMM
Eliquis 5 mg Tablet
5 mg PO BID Qty: 60 0RF
amlodipine 2.5 mg Tablet
2.5 mg PO BID Qty: 60 2RF
acetaminophen 325 mg Tablet
650 mg PO Q4HPRN PRN (Reason: mild pain/fever >100)
albuterol sulfate 90 mcg/actuation Hfa Aerosol Inhaler
2 puff INHALATION R Q4HPRN PRN (Reason: sob)
methylphenidate HCl 10 mg tablet
30 mg PO DAILY
metoprolol succinate 25 mg tablet extended release 24 hr
12.5 mg PO DAILY
lorazepam 1 mg tablet
1 mg PO TID@1200,1700,2200
ascorbic acid (vitamin C) [Vitamin C] 500 mg Tablet
500 mg PO DAILY
ezetimibe [Zetia] 10 mg Tablet
10 mg PO DAILY Qty: 0 0RF
loperamide 2 mg Tablet
2 mg PO TIDPRN PRN (Reason: dairrhea)
aripiprazole [Abilify] 2 mg Tablet
2 mg PO DAILY
Discharge Orders:
Discharge Patient (As Directed); Ordered 03/19/25
Ordered By: Ac Guevara
Discharge Date and Time
Discharge Date/Time: 03/19/25 17:35
Print Language: SWISS
--- NOTE | 2025-03-19 13:54 | W.PN.NEPH.HD ---
Assessment
-
Patient seen on dialysis
Systolic blood pressure stable at 163 at current UF
AV fistula with good function status post PCI on 03/18/2025
For discharge after dialysis
Progress Note - Hemodialysis
-
Date of Service: March 19, 2025
Duration: 30 minutes and 3 hours
Potassium Bath: 2
Calcium Bath: 2.5
Opti-Dialyzer: 160
Ultrafiltration: Other (3 kg as tolerated)
Blood Flow: 400
Dialysate Flow: 600
Heparin: None
EPO: None
[2025-03-19 15:10] VITALS: BP 133/68
== END 2025-03-19 17:35 | disposition home or self-care (01) | DRG 252 ==
LOC: 2 NORTH 12:19
PROVIDERS: Hospitalist; Internal Medicine Nephrology; Nurse Practitioner; Nurse Practitioner Gerontology; Physician Assistant; Specialist; Surgery Vascular Surgery; ADMITTING PHYSICIAN Hospitalist; EMERGENCY PHYSICIAN Emergency Medicine; FAMILY PHYSICIAN Family Medicine; OTHER PHYSICIAN Internal Medicine
PROC: 5A1D70Z Performance of Urinary Filtration, Intermittent, Less than 6 Hours Per Day (ICD-10-PCS; 2025-03-15)
PROC: B51WYZZ Fluoroscopy of Dialysis Shunt/Fistula using Other Contrast (ICD-10-PCS; 2025-03-17)
PROC: 05733DZ Dilation of Right Innominate Vein with Intraluminal Device, Percutaneous Approach (ICD-10-PCS; 2025-03-17)
DX: T82.858A Stenosis of other vascular prosthetic devices, implants and grafts, initial encounter (principal); N18.6 End stage renal disease; I50.30 Unspecified diastolic (congestive) heart failure; I87.1 Compression of vein; N25.81 Secondary hyperparathyroidism of renal origin; E87.20 Acidosis, unspecified; M54.16 Radiculopathy, lumbar region; T82.838A Hemorrhage due to vascular prosthetic devices, implants and grafts, initial encounter; E87.70 Fluid overload, unspecified; E11.22 Type 2 diabetes mellitus with diabetic chronic kidney disease; G47.33 Obstructive sleep apnea (adult) (pediatric); E87.5 Hyperkalemia; E78.00 Pure hypercholesterolemia, unspecified; D63.1 Anemia in chronic kidney disease; K21.9 Gastro-esophageal reflux disease without esophagitis; J44.9 Chronic obstructive pulmonary disease, unspecified; I45.10 Unspecified right bundle-branch block; I25.10 Atherosclerotic heart disease of native coronary artery without angina pectoris; E11.42 Type 2 diabetes mellitus with diabetic polyneuropathy; E11.51 Type 2 diabetes mellitus with diabetic peripheral angiopathy without gangrene; I48.0 Paroxysmal atrial fibrillation; F90.9 Attention-deficit hyperactivity disorder, unspecified type; F32.A Depression, unspecified; F41.9 Anxiety disorder, unspecified; I11.0 Hypertensive heart disease with heart failure; E66.9 Obesity, unspecified; I27.20 Pulmonary hypertension, unspecified; E83.39 Other disorders of phosphorus metabolism; M48.061 Spinal stenosis, lumbar region without neurogenic claudication; N40.0 Benign prostatic hyperplasia without lower urinary tract symptoms; Z95.820 Peripheral vascular angioplasty status with implants and grafts; Z86.73 Personal history of transient ischemic attack (TIA), and cerebral infarction without residual deficits; Y84.1 Kidney dialysis as the cause of abnormal reaction of the patient, or of later complication, without mention of misadventure at the time of the procedure; Y83.2 Surgical operation with anastomosis, bypass or graft as the cause of abnormal reaction of the patient, or of later complication, without mention of misadventure at the time of the procedure; I25.2 Old myocardial infarction; Z95.1 Presence of aortocoronary bypass graft; Z95.5 Presence of coronary angioplasty implant and graft; Z96.653 Presence of artificial knee joint, bilateral; Z87.891 Personal history of nicotine dependence; Z88.5 Allergy status to narcotic agent; Z79.02 Long term (current) use of antithrombotics/antiplatelets; Z79.85 Long-term (current) use of injectable non-insulin antidiabetic drugs; Z79.01 Long term (current) use of anticoagulants; Z79.899 Other long term (current) drug therapy; Z98.1 Arthrodesis status; Z91.158 Patient's noncompliance with renal dialysis for other reason; Z68.30 Body mass index [BMI] 30.0-30.9, adult; Z11.52 Encounter for screening for COVID-19; Z91.041 Radiographic dye allergy status; Z91.040 Latex allergy status; Z76.82 Awaiting organ transplant status
CPT/HCPCS: 36903; 71045; 72110; 80048; 80053; 82962; 83036; 84132; 85025; 85610; 85730; 87070; 87502; 87811; 87880; 93005; 93990; 96374; 96375; 97110; 97116; 97162; 99285; C1725; C1769; C1874; C1894; G0257; P9047; Q9967

== ENCOUNTER 2025-04-14 05:30 | Inpatient (IN) | payer MEDICARE, OTHER, SELFPAY ==
[2025-04-13 21:52] VITALS: BP 125/63
[2025-04-13 22:17] LABS: % Basophils 0.6 % (0-2); % Eosinophils 5.8 % (0-6); % Immature Granulocytes 0.3 % (0-0.5); % Monocytes 14.2 % (1.7-9.3); % Neutrophils 53.1 % (42.2-75.2); Absolute Basophils 0.1 10^3/uL (0-0.2); Absolute Eosinophils 0.5 10^3/uL (0-0.7); Absolute Lymphocytes 2.1 10^3/uL (1.2-3.4); Absolute Monocytes 1.1 10^3/uL (0.1-0.6); Absolute Neutrophils 4.2 10^3/uL (1.4-6.5); Hematocrit 33.8 % (39.0-52.0); Hemoglobin 11.1 g/dL (13.0-18.0); Mean Corp Hgb Conc. 32.8 g/dL (33.0-37.0); Mean Corpuscular Hgb 34.5 pg (27.0-31.0); Mean Platelet Volume 11.4 fL (7.4-10.4); Nucleated Red Blood Cells % 0 % (-); Platelet Count 201 10^3/uL (130-400); Red Blood Cell Count 3.22 10^6/uL (4.70-6.10); Red Cell Dist. Width 15.4 % (11.5-14.5); White Blood Cell Count 7.9 10^3/uL (4.8-10.8)
[2025-04-13 22:42] LABS: ALT (SGPT) 29 U/L (0-50); AST (SGOT) 31 U/L (17-59); Albumin 5.1 g/dl (3.5-5.0); Alkaline Phosphatase 89 U/L (38-126); Blood Urea Nitrogen 54 mg/dl (9-20); Calcium 9.5 mg/dl (8.4-10.2); Carbon Dioxide 26 mmol/L (22-30); Chloride 96 mmol/L (98-107); Glucose 103 mg/dl (70-99); Potassium 4.7 mmol/L (3.5-5.1); Sodium 135 mmol/L (135-145); Total Bilirubin 1.2 mg/dl (0.2-1.3); Total Protein 7.6 g/dl (6.3-8.2); eGFR 5.79
[2025-04-14] VITALS (14 sets, daily range): BP systolic 95–140; BP diastolic 57–88; PULSE 80; O2SAT 96; BMI 29.4; BMI 29.3
--- NOTE | 2025-04-14 02:08 | ED.GENMED ---
History of Present Illness
General
Chief Complaint: Fall
Source: patient and spouse
Exam Limitations: none
Time Seen by Provider: 04/14/25 00:29
History of Present Illness
History of Present Illness:
69-year-old male lost his balance fell hitting his head complaining of some headache neck pain and right leg pain. Nonspecific about the location of the right leg pain however to me. Denies chest pain shortness of breath syncope or other
complaints. states he has been slightly mentally off the last few days.
Past History
Past History
ED Past Medical History: Arrthythmia (PAF), CAD, Cancer (CML), COPD, CVA, HTN, Hypercholesterolemia, NIDDM, AL, Renal failure (on dialysis), Other (Peripheral artery disease, left femoropopliteal bypass), Other (subdural hematoma) and Other (R foot
ulcer; FINESSE; obesity)
ED Past Surgical History: Cardiac (left fempop bypass) and Other (L femoral endarterectomy, popliteal angioplasty, dialysis graft left upper arm)
Social History
Tobacco: Smoker
Alcohol: None
Drug: Marijuana
Personal:
Living: with family
Employment: Disabled
Family History
Family History: Diabetes and Other (reviewed and non-contributory)
Review of Systems
Review of Systems
All Other Systems: Not applicable
Constitutional: Denies fever or chills
Respiratory: Reports no symptoms
Cardiac: Reports no symptoms
ABD/GI: Reports no symptoms
Phy Exam
Physical Exam
Physical Exam:
GENERAL: Alert and oriented in no apparent distress. Old for stated age. No obvious scalp trauma or hematoma
EYE: Orbits normal.
NECK: Supple, nontender
ENT: Pharynx without erythema
CARDIAC: Regular rate and rhythm without any obvious murmurs.
LUNGS: Clear breath sounds,normal
ABDOMEN: Soft, without focal tenderness or distention
NEUROLOGICAL: Alert and oriented , grossly non-focal. Slightly cognitively slow at times
SKIN: Warm and dry, no rash or lesion, no discoloration, skin intact.
MUSCULOSKELETAL: No edema,no deformity.Good color. Shunt right arm. Nonlocalizing tenderness to the right lower leg. Somewhat distal medial thigh somewhat foot. However no swelling deformity bony point tenderness or joint abnormalities.
PSYCH: Normal and appropriate interaction.
Course
Orders/Labs/Results
Orders:
Orders
04/13/25 22:01
CT Cervical Spine W/o Iv Contr Urgent
Comment:
Reason For Exam: fall
CT Head W/o Iv Contrast Urgent
Comment:
Reason For Exam: fall
04/13/25 22:09
CMP [Comprehensive Metabolic Panel] Urgent
Complete Blood Count/With Diff Urgent
04/14/25 00:41
Femur, Right 2 View [CR Femur - Right Min 2 Vw] Urgent
Comment:
Reason For Exam: trauma
Foot, Right 3 View [CR Foot - Right Min 3 Views] Urgent
Comment:
Reason For Exam: trauma
Tib/Fib, Right 2 View [CR Leg Tibia/fibula Right 2 Vw] Urgent
Comment:
Reason For Exam: trauma
04/14/25 03:57
Urine Drug Abuse Screen Stat
Date Specimen was Collected: 04/14/25
Time Specimen was Collected: 11:35
04/14/25 03:58
EKG [Electrocardiogram (*1)] Stat
Reason for Study: Other
Other Reason for Exam: hypotension
04/14/25 04:00
Admit/Transfer Patient As Directed
Co-Sign Provider:
Level of Care: Inpatient admission
Assign to:: Telemetry
Physician / Group: Rafat
Transfer to: Telemetry
Diagnosis: AMS/Enceph
Reason for Telemetry: Other
Other Reason for Telemetry: hypotension
Date to Stop Telemetry: 04/16/25
Time to Stop Telemetry: 11:00
Reason for Hospitalization: AMS/Enceph
Expected length of stay greater than two midnights?: Yes
ELOS- Estimated Length of Stay in days: 2
I certify the patient meets the requirements for IP care: Yes
04/14/25 04:04
Code Status As Directed
Resuscitation Status: Full Code
04/14/25 04:21
Pt Eval And Treat Routine
Activity Level: As Tolerated
04/14/25 05:09
Alcohol Stat
Ammonia Urgent
B12 [Vitamin B12] Urgent
BMP [Basic Metabolic Panel] Urgent
CBC/No Diff [Complete Blood Count/No Diff] Urgent
Lactate Level [Lactic Acid] Stat
Magnesium Urgent
Phosphorus Urgent
TSH Reflex To Free T4 Urgent
Venous Blood Gas Urgent
%Oxygen/Room Air: 21
04/14/25 Breakfast
Cholesterol Lowering
At Your Request: Non-Participating
Cholesterol Lowering: Sodium, 2 Gram
04/14/25 06:55
Acetaminophen [Tylenol] 650 mg PO Q4HPRN PRN
Albuterol [ProAIR HFA INHALER] 2 puff INH R Q4HPRN PRN
Bisacodyl [Dulcolax] 10 mg RECTAL [id number] PRN
Dextrose 50%-Water [Dextrose 50% Syringe] 12.5 grams IV [id number] PRN
Docusate W/Senna [Senokot-S] 1 tablet PO BIDPRN PRN
Glucagon [GlucaGen] 1 mg IM PRN PRN
Ipratropium/Albuterol Sulfate [Duoneb] 3 ml INH R Q4HPRN PRN
Melatonin 5 mg PO HSPRN PRN
Ondansetron Injectable [Zofran] 4 mg IV Q6HPRN PRN
Polyethylene Glycol Powder [Miralax] 17 grams PO DAILYPRN PRN
04/14/25 06:55
Activity As Directed
Activity Level: As Tolerated
Bedside Glucose Monitoring As Directed
Frequency: AC&HS
Additional Instructions:: Change to q6h if pt on TPN, tube feeding or not eating
Neurological Checks As Directed
Frequency: q4h
Pneumatic Compression Sleeves As Directed
Type: Knee high
Precautions As Directed
Type of Precautions: Aspiration
Vital Signs As Directed
Frequency: Per unit guidelines
Rx Incentive Spirometry [RESP] Routine
Frequency: q1h while awake
DX Deep Vein Thrombosis Video Routine
04/14/25 07:26
Loperamide [Imodium] 2 mg PO TIDPRN PRN
04/14/25 07:30
Insulin Aspart Corrective Low [Novolog Flexpen-Low Resistance] See Protocol SC AC
04/14/25 08:00
Amlodipine [Norvasc] 2.5 mg PO BID
Apixaban [Eliquis] 5 mg PO BID
Aripiprazole [Abilify] 2 mg PO DAILY
Ascorbic Acid [Vitamin C] 500 mg PO DAILY
Calcium Acetate [Phoslo] 667 mg PO TID @ 0800,1200,1700
Clopidogrel Bisulfate [Plavix] 75 mg PO DAILY
Ezetimibe [Zetia] 10 mg PO DAILY
Methylphenidate HCl [Ritalin] 30 mg PO DAILY
Metoprolol Xl [Toprol Xl] 12.5 mg PO DAILY
Sertraline HCl [Zoloft] 100 mg PO BID
coQ10 (ubiquinol) 200 mg PO DAILY
tenapanor [Xphozah] See Dose Instructions PO BID
04/14/25 15:00
UA Reflex to Culture [Urinalysis Reflex To Culture] Stat
Date Specimen was Collected: 04/14/25
Time Specimen was Collected: 11:35
04/14/25 22:00
Atorvastatin [Lipitor] 80 mg PO HS
04/16/25 11:00
DC Protocol for Telemetry ONCE
Abnormal Lab Results
04/13/25 04/14/25
22:09 05:09
RBC 3.22 L 10^6/uL 2.99 L 10^6/uL
(4.70-6.10) (4.70-6.10)
Hgb 11.1 L g/dL 10.5 L g/dL
(13.0-18.0) (13.0-18.0)
Hct 33.8 L % 31.1 L %
(39.0-52.0) (39.0-52.0)
MCV 105.0 H fL 104.0 H fL
(80.0-94.0) (80.0-94.0)
MCH 34.5 H pg 35.1 H pg
(27.0-31.0) (27.0-31.0)
MCHC 32.8 L g/dL
(33.0-37.0)
RDW 15.4 H % 15.4 H %
(11.5-14.5) (11.5-14.5)
MPV 11.4 H fL 11.5 H fL
(7.4-10.4) (7.4-10.4)
Absolute Monos (auto) 1.1 H 10^3/uL
(0.1-0.6)
Monocytes % 14.2 H %
(1.7-9.3)
VBG pO2 159 H mmHg
(30-50)
VBG HCO3 27.8 H mmol/L
(22-27)
Chloride 96 L mmol/L
(98-107)
BUN 54 H mg/dl 62 H mg/dl
(9-20) (9-20)
Creatinine 9.1 H* mg/dL 9.7 H* mg/dL
(0.7-1.3) (0.7-1.3)
Glucose 103 H mg/dl 115 H mg/dl
(70-99) (70-99)
Phosphorus 5.3 H mg/dl
(2.5-4.5)
Albumin 5.1 H g/dl
(3.5-5.0)
04/14/25 05:09
04/14/25 05:09
Vital Signs
Initial and Last Documented VS:
Initial Vital Signs
Temp Pulse Resp BP Pulse Ox
98.3 F 83 18 125/63 97
04/13/25 21:52 04/13/25 21:52 04/13/25 21:52 04/13/25 21:52 04/13/25 21:52
Last Documented Vital Signs
Temp Pulse Resp BP Pulse Ox
98.2 F 80 16 118/57 96
04/14/25 14:39 04/14/25 14:39 04/14/25 14:39 04/14/25 14:39 04/14/25 14:39
MDM/Problems Addressed
Differential Diagnosis Includes:
Patient not describing syncope. Medically stable and nontoxic. No acute significant trauma. Slightly cognitively off although nonfocal. He is however able to answer all questions well. Will test ambulation for discharge
*Radiology
Radiology exam reviewed: preliminary read by ED provider (Negative x-rays) and radiology read reviewed (Negative head CT. Negative cervical spine)
*Pulse Oximetry
Patient hypoxic: no
*Critical Care Note
Total Time (30-74mins, 75-104mins- exclusive of procedures): Not Applicable
Data Reviewed
Review of Other/Old Records Reveals: Labs, Records and Radiology Studies
Update Note
Update Note:
Patient is definitely cognitively off. states he normally drives himself to dialysis and clearly in his current state would not be able to drive. Given the cognitive issues weakness patient will be admitted for further care
ED Attending Note
-
Portions of this chart may have been created with voice recognition software.� Occasional wrong word or��sound alike� substitutions may have occurred due to the inherent limitations of voice recognition software.
Discharge Plan
Departure
Patient Disposition: Admit
Date of Disposition: 04/14/25
Time of Disposition: 02:18
Presentation/result/management discussed w/ accepting MD/DO: Hospitalist
Discharge Problem:
Change in mental status, Fall/minor head injury, History of renal failure
Interventions
Interventions:
*Risk Screen - Suicide Last Done: 04/13/25 21:58
*General Assessment Last Done: 04/13/25 21:58
*Neglect/Abuse Screening Last Done: 04/13/25 21:58
*ED- Fall Risk Assessment Last Done: 04/14/25 06:32
*ED COVID-19 Vaccine History Last Done: 04/13/25 22:00
*Nursing Disposition Last Done: 04/14/25 14:17
ED- Cardiac Assessment Last Done: 04/14/25 11:03
ED-Musculoskeletal Assessment Last Done: 04/14/25 01:20
ED- Neurological Assessment Last Done: 04/14/25 11:04
ED- Pulmonary Assessment Last Done: 04/14/25 11:03
ED-Skin Assessment Last Done: 04/14/25 01:20
Discharge Date and Time
Discharge Date/Time: 04/14/25 14:39
--- NOTE | 2025-04-14 03:44 | HPS.HSE ---
Family Physician
-
Family Physician: Placido Lora Jr.
Chief Complaint
-
AMS x 2 days
History of Present Illness
69yo M with PMH Afib on Eliquis, CAD s/p IA, HTN/HLD, DM2, COPD, FINESSE, CML, CVA, ESRD on HD, PAD s/p L fempop bypass, Hx SDH, ADD presents to ER for AMS. Pt is a severly poor historian falling asleep during exam. I attempted to call patients spouse
at 0400 on 04/14/25 without success. History thus limited. He does report falls but unable to give further details. Appears to have struck his right side. Unclear of head strike or LOC. Unclear of CML treatment status. Denies F/C, Cough, Chest Pain,
Abd Pain, Calf or Leg Pain. Endorses still making urine. ROS otherwise unattainable.
Pt presents BP 125/63 -> 95/61, Other V.S.S.�WBC 7.9K,�Hgb 11. 1g/dL, MCV 105 (chronic), BUN/Cr 54/9.1, BG 103, LFts wnl,�CT brain (-). XR femur (+) ISELA, no acute fx/dislocation. XR Right Foot (-) Fx/Dislocation. XR R Tib/Fib (-) Fx/dislocation.
Admitted for encephalopathy workup.�
Medical History
Past Medical History
Past Medical History: Reports Other ( Arrthythmia (PAF), CAD, Cancer (CML), COPD, CVA, HTN, Hypercholesterolemia, NIDDM, IA, Renal failure (on dialysis), Other (Peripheral artery disease, left femoropopliteal bypass), Other (subdural hematoma) and
Other (R foot ulcer; FINESSE; obesity))
Past Surgical History: Reports Other (Cardiac (left fempop bypass) and Other (L femoral endarterectomy, popliteal angioplasty, dialysis graft left upper arm))
Social History
Tobacco: Smoker
Alcohol: None
Drug: Marijuana
Living: With Family
Employment: Disabled
Family History
Family History: Other (Diabetes)
Allergies / Home Medications
Allergies reflects when Allergies were last updated in [facility].
Home Medications with original date entered in [facility]
Allergy/Medication List:
Allergies
Allergy/AdvReac Type Severity Reaction Status Date / Time
Iodinated Contrast Media Allergy Nausea / Verified 04/13/25 22:00
Vomiting,
'panic
attack'
latex Allergy Itching Verified 04/13/25 22:00
morphine Allergy Itching Verified 04/13/25 22:00
Home Medications
melatonin 5 mg tablet 5 mg PO HSPRN PRN sleep 04/06/19
atorvastatin 80 mg tablet 80 mg PO HS High cholesterol 01/25/21
clopidogrel 75 mg tablet (Plavix) 75 mg PO DAILY Blood Clot Prevention/Tx 02/19/24
coQ10 (ubiquinol) 200 mg capsule 200 mg PO DAILY Supplement 02/19/24
semaglutide 0.25 mg or 0.5 mg (2 mg/3 mL) subcutaneous pen injector (Ozempic) 0.25 mg SC GRIMM Diabetes 02/19/24
sertraline 100 mg tablet 100 mg PO BID Mental Health 02/19/24
vitamin B complex-vitamin C-folic acid 0.8 mg tablet (Nephro-Michelle) 1 tab PO MOWEFR Supplement 02/19/24
amlodipine 2.5 mg tablet 2.5 mg PO BID #60 tabs 02/28/24
apixaban 5 mg tablet (Eliquis) 5 mg PO BID #60 tabs 02/28/24
acetaminophen 325 mg tablet 650 mg PO Q4HPRN PRN mild pain/fever >100 05/25/24
albuterol sulfate 90 mcg/actuation aerosol inhaler 2 puff inhalation R Q4HPRN PRN sob 05/25/24
methylphenidate HCl 10 mg tablet 30 mg PO DAILY 07/07/24
metoprolol succinate 25 mg tablet,extended release 24 hr 12.5 mg PO DAILY 09/23/24
lorazepam 1 mg tablet 1 mg PO TID@1200,1700,2200 10/28/24
ascorbic acid (vitamin C) 500 mg tablet (Vitamin C) 500 mg PO DAILY 11/03/24
ezetimibe 10 mg tablet (Zetia) 10 mg PO DAILY High Cholesterol #0 tabs 11/04/24
aripiprazole 2 mg tablet (Abilify) 2 mg PO DAILY 03/15/25
loperamide 2 mg tablet 2 mg PO TIDPRN PRN dairrhea 03/15/25
oxycodone 10 mg tablet 10 mg PO BID PRN severe pain #10 tabs 03/19/25
tenapanor 30 mg tablet (Xphozah) 30 mg PO BID 04/14/25
Review of Systems
-
A 12 point ROS was completed and negative except as noted: Yes
Physical Exam
Vital Signs
Vital Signs
Temp Pulse Resp BP Pulse Ox
98.3 F 80 9 95/61 90
04/13/25 21:52 04/14/25 03:00 04/14/25 02:15 04/14/25 03:00 04/14/25 03:00
Physical Exam
General: Other (Chronic ill appearing. Lethargic. Arousable to loud verbal stim. Follows only simple commands. Falling asleep during exam. )
HEENT: NormoCephalic, Moist mucous membranes and Atraumatic
Respiratory: Clear
Cardiac: S1/S2 and Irregular Rhythm (Was in normal sinus rhythm and now converted to A-fib); No Murmur or Rub
GI: Soft, Non Tender, Non Distended and Normal Bowel Sounds; No Organomegaly
Rectal: Deferred by Provider
Genito-urinary: No costovertebral tender; No Luther
Musculoskeletal: No Clubbing, No Cyanosis and No Edema
Skin: No Rash
Neuro: No Motor Deficits, Nonfocal/grossly intact and Other (Lethargic. Arousable to verbal stim. Falling asleep during exam. Pupils 2mm equal and reactive. Tongue midline. Speech comprehensible. MSK testing limited. 4/5 throughout. Sensation
grossly intact. Unable to perform other cerebellar testing. )
Hematologic/Lymphatic: No Lymphadenopathy
Psych: Confused
Laboratory Results
-
04/13/25 22:09
04/13/25 22:09
Laboratory Results
Total Bilirubin 1.2 mg/dl (0.2-1.3) 04/13/25 22:09
AST 31 U/L (17-59) 04/13/25 22:09
ALT 29 U/L (0-50) 04/13/25 22:09
Alkaline Phosphatase 89 U/L (38-126) 04/13/25 22:09
Data Reviewed
-
Diagnostic Radiology: Image Personally Visualized and interpreted
CT Scan: Image Personally Visualized and interpreted
Medical Tests (Nuc Med, Echo, EKG etc): Image Personally Visualized and interpreted
Lab Data: Labs Reviewed by me
Old Records: Reviewed
Impression/Plan
-
Acute Encephalopathy / Hx SDH / Hx ADD
- Pt presents with reported AMS x 2 days. Unable to obtain story, pt falling asleep during exam
- CT brain No acute findings.
- Denies any illicit drug use. However suspect polypharmacy to be playing a roll - Holding home oxycodone, ativan for now
- Reports still making Urine. Check UA/UDS
- Check ETOH/B12/TSH/Ammonia/VBG
- Q4h neurochecks
- Continue methylphenidate
- Consult PT.
- Consider neuro if unimproved in AM
Fall
- Limited history. Reportedly struck right side
- CT brain (-). XR femur (+) ISELA, no acute fx/dislocation. XR Right Foot (-) Fx/Dislocation. XR R Tib/Fib (-) Fx/dislocation.
- PT consult. Pt Lives with and ambulates at baseline with walker.
PAF - EKG NSR @ 77bpm, septal qwaves, QTC 482ms, no acute changes. Continue home BB/Eliquis.
CAD s/p IA, HTN/HLD / PAD s/p L Fempop Bypass - Continue plavix/statin. Continue amlodipine / BB with hold parameters.
DM2 - BG 103 on admission. Resume ozempic on discharge. SSI/accuchecks. Will use regular diet for now suspecting limited intake 2/2 encephalopathy.
COPD - Not in acute exacerbation. Continue home inhaler therapy.
CML - hx noted. unclear treatment status.
Macrocytic Anemia - Chronic.
CVA - hx noted. continue plavix/statin
ESRD on HD - RUE AVF. +bruit/thrill. On HD M/W/F. Consult Nephrology. Continue home nephrovite, xphozah,
Diet: Regular
DVT ppx: Eliquis
Code Status: Full
[2025-04-14 05:27] LABS: Venous Blood Gas B.E. 2.2 mmol/L (-4 to +4); Venous Blood Gas HCO3 27.8 mmol/L (22-27); Venous Blood Gas O2 Sat % 97.8 %; Venous Blood Gas pCO2 47 mmHg (35-48); Venous Blood Gas pH 7.38 (7.32-7.43); Venous Blood Gas pO2 159 mmHg (30-50)
[2025-04-14 05:29] LABS: Venous Blood Gas O2 Therapy 21
[2025-04-14 05:35] LABS: Hematocrit 31.1 % (39.0-52.0); Hemoglobin 10.5 g/dL (13.0-18.0); Mean Corp Hgb Conc. 33.8 g/dL (33.0-37.0); Mean Corpuscular Hgb 35.1 pg (27.0-31.0); Mean Platelet Volume 11.5 fL (7.4-10.4); Platelet Count 184 10^3/uL (130-400); Red Blood Cell Count 2.99 10^6/uL (4.70-6.10); Red Cell Dist. Width 15.4 % (11.5-14.5); White Blood Cell Count 6.8 10^3/uL (4.8-10.8)
[2025-04-14 05:42] LABS: Ammonia 9 umol/L (9-30)
[2025-04-14 05:43] LABS: Lactic Acid 0.7 mmol/L (0.7-2.0)
[2025-04-14 05:55] LABS: Blood Urea Nitrogen 62 mg/dl (9-20); Calcium 9.1 mg/dl (8.4-10.2); Carbon Dioxide 25 mmol/L (22-30); Chloride 98 mmol/L (98-107); Estimated Creatinine Clearance 7 ml/min; Glucose 115 mg/dl (70-99); Magnesium 2.3 mg/dl (1.6-2.3); Phosphorus 5.3 mg/dl (2.5-4.5); Potassium 4.2 mmol/L (3.5-5.1); Sodium 136 mmol/L (135-145); eGFR 5.37
[2025-04-14 06:08] LABS: Alcohol None Detected
[2025-04-14] MEDS: FLUSH (NSS) 1 FLUSH IV (06:24)
[2025-04-14 06:36] LABS: TSH Reflex To Free T4 2.96 uIU/ml (0.47-4.68)
[2025-04-14 06:55] LABS: Vitamin B12 879 pg/ml (239-931)
[2025-04-14] MEDS: ABILIFY 2 MG PO (07:48)
[2025-04-14] MEDS: RITALIN 30 MG PO (07:48)
[2025-04-14] MEDS: PHOSLO 667 MG PO ×3 (07:48→17:59)
[2025-04-14] MEDS: ZETIA 10 MG PO (07:49)
[2025-04-14] MEDS: NORVASC 2.5 MG PO ×2 (07:50→20:30)
[2025-04-14] MEDS: TOPROL XL 12.5 MG PO (07:50)
[2025-04-14] MEDS: PLAVIX 75 MG PO (07:51)
[2025-04-14] MEDS: ELIQUIS 5 MG PO ×2 (07:55→20:26)
--- NOTE | 2025-04-14 08:13 | EDRN ---
Continue to wait for pharmacy to tube meds not in [facility]
--- NOTE | 2025-04-14 08:26 | W.CON.NEPH ---
Consultation
-
Date/Time Consultation Requested: 04/14/2025 8 AM
Date/Time Consultation Performed: 04/14/2025 8 AM
Requesting Provider: Dr. Ramos
Performing Provider: ESRD
Reason for Consultation: Dr. De La O
Medical History
-
Chief Complaint: back pain
History of Present Illness:
The patient is a 69-year-old male with end-stage renal disease secondary to diabetes who is maintained on a Saturday dialysis schedule at [facility]. He is maintained on insulin therapy for his diabetes with multiple
microvascular complications including diabetic neuropathy. He is maintained on calcium acetate for his hyperphosphatemia and a multidrug regimen for his hypertension. He is chronically anticoagulated with Eliquis for his atrial fibrillation. The
patient was brought to the emergency room by EMS presumably because of a fall at home with confusion. The patient is extremely lethargic, falling asleep during the interview. It appears that he had fallen out of bed in the morning and had a
difficult time getting up. He then noticed that he had some word finding issues. He had then been sent to the emergency room by EMS. Reportedly his mental issues have been present for a few days. He is due for dialysis today
Past Medical History
Stenting of vein graft to obtuse marginal October 24, 2023
Strep bacteremia now off antibiotics
diastolic CHF
ESRD MWF ([facility])
Metabolic acidosis
Hyperkalemia
Anemia, CKD +/- functional iron deficiency
Secondary hyperparathyroidism with hyperphosphatemia
Diabetes mellitus with multiple microvascular complications including profound nephrotic proteinuria
COPD
Obstructive sleep apnea/CPAP
Diabetic polyneuropathy
CAD with CABG �2009
LAD stent 2015
Left SFA and popliteal angioplasty 2017
Left femoral to [id number] popliteal bypass 2018
Right SFA and popliteal angioplasty/stenting 2015
Hypertension
Right bundle branch block
CML
Hyperlipidemia
TIA 2016
Frontal subdural hematoma 2018 (traumatic fall)
Long-standing smoker
Multiple laminectomy
Right total knee replacement
Left total knee replacement
Left upper arm AV graft September 13, 2023 (Dr. Luther)
NSTEMI August 2023 (troponin 0.51)
Hyperphosphatemia
Chronic ambulatory despite
Social History
Tobacco: Former Smoker
Alcohol: None
Personal:
Living: With Family
Family History
No chronic kidney disease
Allergies / Home Medications
Allergy/AdvReac Type Severity Reaction Status Date / Time
Iodinated Contrast Media Allergy Nausea / Verified 04/13/25 22:00
Vomiting,
'panic
attack'
latex Allergy Itching Verified 04/13/25 22:00
morphine Allergy Itching Verified 04/13/25 22:00
�Medication �Instructions �Recorded �Confirmed �Type
melatonin 5 mg tablet 5 mg PO HSPRN PRN sleep 04/06/19 04/13/25 History
atorvastatin 80 mg tablet 80 mg PO HS High cholesterol 01/25/21 04/13/25 History
clopidogrel 75 mg tablet (Plavix) 75 mg PO DAILY Blood Clot 02/19/24 04/13/25 History
Prevention/Tx
coQ10 (ubiquinol) 200 mg capsule 200 mg PO DAILY Supplement 02/19/24 04/13/25 History
semaglutide 0.25 mg or 0.5 mg (2 0.25 mg SC GRIMM Diabetes 02/19/24 04/13/25 History
mg/3 mL) subcutaneous pen injector
(Ozempic)
sertraline 100 mg tablet 100 mg PO BID Mental Health 02/19/24 04/13/25 History
vitamin B complex-vitamin C-folic 1 tab PO MOWEFR Supplement 02/19/24 04/13/25 History
acid 0.8 mg tablet (Nephro-Michelle)
amlodipine 2.5 mg tablet 2.5 mg PO BID #60 tabs 02/28/24 04/13/25 Rx
apixaban 5 mg tablet (Eliquis) 5 mg PO BID #60 tabs 02/28/24 04/13/25 Rx
acetaminophen 325 mg tablet 650 mg PO Q4HPRN PRN mild 05/25/24 04/13/25 History
pain/fever >100
albuterol sulfate 90 mcg/actuation 2 puff inhalation R Q4HPRN PRN sob 05/25/24 04/13/25 History
aerosol inhaler
methylphenidate HCl 10 mg tablet 30 mg PO DAILY 07/07/24 04/13/25 History
metoprolol succinate 25 mg 12.5 mg PO DAILY 09/23/24 04/13/25 History
tablet,extended release 24 hr
lorazepam 1 mg tablet 1 mg PO TID@1200,1700,2200 10/28/24 04/13/25 History
ascorbic acid (vitamin C) 500 mg 500 mg PO DAILY 11/03/24 04/13/25 History
tablet (Vitamin C)
ezetimibe 10 mg tablet (Zetia) 10 mg PO DAILY High Cholesterol #0 11/04/24 04/13/25 Rx
tabs
aripiprazole 2 mg tablet (Abilify) 2 mg PO DAILY 03/15/25 04/13/25 History
loperamide 2 mg tablet 2 mg PO TIDPRN PRN dairrhea 03/15/25 04/13/25 History
oxycodone 10 mg tablet 10 mg PO BID PRN severe pain #10 03/19/25 04/13/25 Rx
tabs
calcium acetate 667 mg PO TIDWMEAL 04/14/25 04/14/25 History
tenapanor 30 mg tablet (Xphozah) 30 mg PO BID 04/14/25 04/14/25 History
Review of Systems
-
No chest pain or shortness of breath, lethargy
All other systems: Negative unless noted
Physical Exam
Vital Signs
Vital Signs
Temp Pulse Resp BP Pulse Ox
98.3 F 64 9 108/62 92
0521/25 07:39 04/14/25 07:50 04/14/25 07:15 04/14/25 07:50 04/14/25 07:15
Lab Results
WBC 6.8 10^3/uL (4.8-10.8) 04/14/25 05:09
RBC 2.99 10^6/uL (4.70-6.10) L 04/14/25 05:09
Hgb 10.5 g/dL (13.0-18.0) L 04/14/25 05:09
Hct 31.1 % (39.0-52.0) L 04/14/25 05:09
Plt Count 184 10^3/uL (130-400) 04/14/25 05:09
Sodium 136 mmol/L (135-145) 04/14/25 05:09
Potassium 4.2 mmol/L (3.5-5.1) 04/14/25 05:09
Chloride 98 mmol/L (98-107) 04/14/25 05:09
Carbon Dioxide 25 mmol/L (22-30) 04/14/25 05:09
BUN 62 mg/dl (9-20) H 04/14/25 05:09
Creatinine 9.7 mg/dL (0.7-1.3) H* 04/14/25 05:09
eGFR 5.37 04/14/25 05:09
Glucose 115 mg/dl (70-99) H 04/14/25 05:09
Calcium 9.1 mg/dl (8.4-10.2) 04/14/25 05:09
Phosphorus 5.3 mg/dl (2.5-4.5) H 04/14/25 05:09
Albumin 5.1 g/dl (3.5-5.0) H 04/13/25 22:09
Laboratory Tests
03/19/25
05:47
[address] head without contrast 04/13/2025 no acute disease
Physical Exam
Patient is awake alert oriented and in no distress. Mood and affect were pleasant, insight and judgment were good. Pupils are equal round and reactive to light, extraocular movements are intact, sclera were anicteric. Hearing was normal, ears and
nose are intact. Oropharynx was clear. Neck was supple with trachea midline and no thyromegaly. Heart was regular rate and rhythm without rubs. Lower extremities without edema. Lungs were clear to auscultation bilaterally and with normal
excursion. Abdomen was soft, nontender, with normal active bowel sounds, and no hepatosplenomegaly. Skin was without rash and with normal turgor. AV fistula right upper arm with good thrill and bruit
Data Reviewed
-
Radiology: Image Personally Visualized and interpreted (Femur x-ray 04/13/2025 by my reading no fracture)
CT Scan: Report Reviewed by me
Medical Tests (Nuc Med, Echo etc): Image Personally Visualized and interpreted (EKG 04/14/2025 by my reading normal sinus rhythm septal infarct)
Labs: Labs Reviewed by me
Old Records: Reviewed
Assessment/Plan
-
Impression:
Mental status change, lethargy
ESRD MWF, [facility]
A-fib
DM2
CAD/CABG
Anemia
PAD
RUE AVF/ligated LUE AVG
Hyperphophatemia
HTN
Diabetic neuropathy
Secondary hyperparathyroidism
Plan:
HD today
Infectious workup
Physical therapy
[2025-04-14] MEDS: ZOLOFT 100 MG PO ×2 (08:35→20:26)
[2025-04-14] MEDS: VITAMIN C 500 MG PO (08:36)
--- NOTE | 2025-04-14 08:52 | EDRN ---
Call to to bring in nonformulary meds
[2025-04-14 08:57] LABS: Glucose - Point of Care 108 mg/dl (70-99)
[2025-04-14] MEDS: NOVOLOG FLEXPEN-LOW RESISTANCE SC ×3 (09:08→17:51)
--- NOTE | 2025-04-14 10:14 | EDRN ---
brought in the [facility], pharmacy notified so they can utilize this.
[2025-04-14] MEDS: NON-FORMULARY ITEM 30 MG PO (10:57)
--- NOTE | 2025-04-14 12:55 | W.PN.UPDATE ---
Update Note
Progress Note Update
Seen and examined independent of overnight physician. Patient currently sitting in chair. Patient stated of some confusion. States he is was prescribed pain medication for his severe back pain. Upon further discussion with patient spouse over
the phone there were episodes of confusion and patient was found in [place] from [facility] that he was not supposed to go over there. There are multiple episodes where patient forgot to take his keys and many other instances of patient
forgetting things.
general: Sitting in chair and is able to have a conversation
HEENT: NormoCephalic, Moist mucous membranes and Atraumatic
Respiratory: Clear
Cardiac: S1/S2 and Irregular Rhythm (Was in normal sinus rhythm and now converted to A-fib); No Murmur or Rub
GI: Soft, Non Tender, Non Distended and Normal Bowel Sounds; No Organomegaly
Rectal: Deferred by Provider
Genito-urinary: No costovertebral tender; No Luther
Musculoskeletal: No Clubbing, No Cyanosis and No Edema
Skin: No Rash
Neuro: No Motor Deficits, Nonfocal/grossly intact
Hematologic/Lymphatic: No Lymphadenopathy
Psych: Awake alert with mild disorientation
#Toxic metabolic encephalopathy likely secondary to polypharmacy (oxycodone, ativan, flexeril, abilify ) versus low likelihood of seizure versus infection versus uremia
CT of the head was negative for acute bleeding
Patient denies any drug use. Hold Ativan 1mg TID. Also hold Abilify.
Check UDS if patient is able to give a sample
Continue with neurochecks
Continue methylphenidate
If no improvement in mentation with dialysis and clearance of oxycodone may need further neurology input
No productive cough or diarrhea. White count normal. Afebrile.
# Chronic lower back pain likely secondary to lumbar radiculopathy
#History of lumbar fusion
Patient with recent MRI with severe lumbar spinal narrowing
Recent lumbar spine x-ray Postoperative and multilevel degenerative changes of the lumbar spine without acute fracture or complication.
Physical therapy evaluation
#ESRD on hemodialysis
#ESRD related anemia
#Interstitial edema due to ESRD volume overload
HD per nephrology.
#AVF Status post right upper extremity fistulogram with balloon angioplasty on 03/17
- Monitor post hemodialysis for bleeding
ASCVD (CAD, PAD, Carotid Disease, CVA / TIA) with Dyslipidemia
CAD s/p CABG s/p recent stents 11/17
Continue with Plavix and Eliquis
Continue with high-dose of statin
Monitor on telemetry
Follows w/[facility] Dr. Serra
Parox A. Fib
Continue with metoprolol
can increase dose of toprol if needed
Continue with Eliquis
Monitor on telemetry
Primary hypertension
Continue with Norvasc
Volume removal should also help with blood pressure
Diabetes mellitus type 2
Insulin sliding scale and Accu-Chek
Hold Ozempic for now
Depression/ADHD/anxiety
Continue with home dose of Ritalin/Zoloft
Holding Abilify and Ativan
History of CML
DVT prophylaxis with Eliquis
Full code
Discussed with patient and spouse over the phone in details.
[2025-04-14 13:29] LABS: Glucose - Point of Care 110 mg/dl (70-99)
--- NOTE | 2025-04-14 15:49 | WOUNDNOTE ---
R PLANTAR LATERAL FOOT
--- NOTE | 2025-04-14 15:50 | WOUNDNOTE ---
R PLANTAR LATERAL FOOT
--- NOTE | 2025-04-14 15:56 | WOUNDNOTE ---
[facility] RN note: Patient admitted with falls.
See H&P for complete history.
PMH: h+p from chart 'Reports Other ( Arrthythmia (PAF), CAD, Cancer (CML), COPD, CVA, HTN, Hypercholesterolemia, NIDDM, MD, Renal failure (on dialysis), Other (Peripheral artery disease, left femoropopliteal bypass), Other (subdural hematoma) and
Other (R foot ulcer; FINESSE; obesity))
Past Surgical History: Reports Other (Cardiac (left fempop bypass) and Other (L femoral endarterectomy, popliteal angioplasty, dialysis graft left upper arm))'
Social History
Tobacco: Smoker
Wound Location and type/assessment: Patient admitted with: Bruises on coccyx, R hip, R lateral thigh, R posterior knee, back. R plantar lateral neuropathic deep dermal appearing ulcer with callus. Patient stated he follows [facility] Dr. Ag
and he cleanses his foot ulcer with Vashe wound cleanser and wears a clean sock. Patient stated he last saw Dr. Ag 2 weeks ago and has an appointment next week. Pedal pulses faintly palpable. Toes warm.
Appetite: on a low cholesterol diet.
Pressure redistribution devices in place: [employer] Accumax. Patient moves self in bed.
Plan: Protective silicone border foam applied to sacral/coccyx. Silicone border foam applied to R plantar lateral foot. Patient stated he has shoes with off loading inserts at home. He has comfortable slip on sneakers here. Suggested he have a
family member bring in his shoes with off loading inserts.
Updated and confirmed orders with Dr. Guevara and updated CHAPIS Rivas.
Care plan to be updated and will follow as needed. Patient to follow up with Dr. Ag.
[2025-04-14 16:43] LABS: Glucose - Point of Care 111 mg/dl (70-99)
--- NOTE | 2025-04-14 16:53 | W.PN.NEPH.HD ---
Assessment
-
Seen on HD. no Complaints. more awake. VSS, access ok
Progress Note - Hemodialysis
-
Date of Service: April 14, 2025
Duration: 30 minutes and 3 hours
Potassium Bath: 2
Calcium Bath: 2.5
Opti-Dialyzer: 160
Ultrafiltration: Other (1.5)
Blood Flow: 400
Dialysate Flow: 600
Heparin: no
EPO: no
[2025-04-14] MEDS: FLEXBUMIN 25% FOR HEMODIALYSIS 12.5 GRAMS IV (17:44)
[2025-04-14] MEDS: MANNITOL 25% 12.5 GRAMS IV (17:44)
[2025-04-14] MEDS: TYLENOL 650 MG PO (17:58)
[2025-04-14] MEDS: ProAmatine 5 MG PO (17:59)
[2025-04-14] MEDS: NON-FORMULARY ITEM 1 MG PO (20:27)
[2025-04-14] MEDS: LIPITOR 80 MG PO (21:16)
[2025-04-14 21:41] LABS: Glucose - Point of Care 128 mg/dl (70-99)
[2025-04-15 03:09] VITALS: BP 123/58
[2025-04-15 06:00] VITALS: BMI 28.8
[2025-04-15 07:05] VITALS: BP 106/59
[2025-04-15 07:35] LABS: Glucose - Point of Care 92 mg/dl (70-99)
[2025-04-15] MEDS: NOVOLOG FLEXPEN-LOW RESISTANCE SC ×2 (08:09→17:50)
[2025-04-15] MEDS: ZETIA 10 MG PO (08:09)
[2025-04-15] MEDS: ZOLOFT 100 MG PO ×2 (08:10→19:43)
[2025-04-15] MEDS: PHOSLO 667 MG PO ×3 (08:10→17:51)
[2025-04-15] MEDS: RITALIN 30 MG PO (08:10)
[2025-04-15] MEDS: NORVASC 2.5 MG PO ×2 (08:10→19:43)
[2025-04-15] MEDS: PLAVIX 75 MG PO (08:10)
[2025-04-15] MEDS: VITAMIN C 500 MG PO (08:11)
[2025-04-15] MEDS: TOPROL XL 12.5 MG PO (08:11)
[2025-04-15] MEDS: ELIQUIS 5 MG PO ×2 (08:11→19:43)
[2025-04-15] MEDS: NON-FORMULARY ITEM 30 MG PO (08:11)
[2025-04-15 10:36] LABS: Glucose - Point of Care 213 mg/dl (70-99)
--- NOTE | 2025-04-15 10:43 | CM ---
CM following re: discharge planning.
Reviewed pt' chart, met with pt and spoke to pt's spouse over the [place].
Pt is a 69 year old male, admitted with primary dx of Acute Encephalopathy / Hx SDH / Hx ADD. PMH includes: Afib on Eliquis, CAD s/p MT, HTN/HLD, DM2, COPD, FINESSE, CML, CVA, ESRD on HD, PAD s/p L fempop bypass, Hx SDH, ADD.
Pt reports he lives with spouse 2SH, 2 steps to enter, has 4 supportive children. pt reports he ambulates with a walker, [facility], was at [facility] two times. Pt reports he has been receiving outpatient HD treatment for 2 years [place] [facility] [facility] [address], chair time 6:00 a.m. Pt reports he drives himself to and from HD treatment.
PT and OT evaluations noted - SNF vs home PT recommended. Pt fell today in the bathroom and per PT pt probably needs SNF level of care. CM discussed it with the pt and his spouse and they expressed their agreement with SNF level of care. A list of
SNFs with HD treatment onsite provided, [facility]. [facility].
PCP: Placido Lora
Pharmacy: [facility]
D/C plan: [facility] HD treatment onsite.
CM will follow to assist [facility] for a [facility] term rehab.
[2025-04-15 11:00] VITALS: BP 124/68
--- NOTE | 2025-04-15 11:17 | W.PN.HOSP.TC ---
Today's Communication/Plan
-
Check MRI of the brain
Check x-rays of the hip and chest x-ray
Continue to hold narcotics
Dialysis tomorrow
Assessment / Plan
Assessment / Plan
general: Sitting in chair and is able to have a conversation
HEENT: NormoCephalic, Moist mucous membranes and Atraumatic
Respiratory: Clear
Cardiac: S1/S2 and Irregular Rhythm (Was in normal sinus rhythm and now converted to A-fib); No Murmur or Rub
GI: Soft, Non Tender, Non Distended and Normal Bowel Sounds; No Organomegaly
Rectal: Deferred by Provider
Genito-urinary: No costovertebral tender; No Luther
Musculoskeletal: No Clubbing, No Cyanosis and No Edema
Skin: No Rash
Neuro: No Motor Deficits, Nonfocal/grossly intact
Hematologic/Lymphatic: No Lymphadenopathy
Psych: Awake alert with mild disorientation
#Toxic metabolic encephalopathy likely secondary to polypharmacy (oxycodone, ativan, flexeril, abilify ) versus low likelihood of seizure versus infection versus uremia
CT of the head was negative for acute bleeding
Patient denies any drug use. Hold Ativan 1mg TID. Also hold Abilify.
Check UDS if patient is able to give a sample
Continue with neurochecks
Continue methylphenidate
If no improvement in mentation with dialysis and clearance of oxycodone may need further neurology input
No productive cough or diarrhea. White count normal. Afebrile. Preliminary negative so far.
Will check MR brain
#Mechanical fall
recheck R hip xray w/pelvis
# Chronic lower back pain likely secondary to lumbar radiculopathy
#History of lumbar fusion
Patient with recent MRI with severe lumbar spinal narrowing
Recent lumbar spine x-ray Postoperative and multilevel degenerative changes of the lumbar spine without acute fracture or complication.
Physical therapy evaluation
#ESRD on hemodialysis
#ESRD related anemia
#Interstitial edema due to ESRD volume overload
HD per nephrology.
Remains on transplant list
#AVF Status post right upper extremity fistulogram with balloon angioplasty on 03/17
- Monitor post hemodialysis for bleeding
ASCVD (CAD, PAD, Carotid Disease, CVA / TIA) with Dyslipidemia
CAD s/p CABG s/p recent stents 11/17
Continue with Plavix and Eliquis
Continue with high-dose of statin
Monitor on telemetry
Follows w/[facility] Dr. Serra
Parox A. Fib
Continue with metoprolol
Continue with Eliquis
Monitor on telemetry
Primary hypertension
Continue with Norvasc
Volume removal should also help with blood pressure
Diabetes mellitus type 2
Insulin sliding scale and Accu-Chek
Hold Ozempic for now
Depression/ADHD/anxiety
Continue with home dose of Ritalin/Zoloft
Holding Abilify and Ativan
History of CML
DVT prophylaxis with Eliquis
Full code
update spouse over the phone in details
Anticipated Discharge: > 48 hours
Subjective/Interval History
-
Date of Service: April 15, 2025
Pt with mild improvement in mentation
slowly able to recall some events from yesterday
Objective Data
-
Vital Signs:
Vital Signs
Temp Pulse Resp BP Pulse Ox
98.0 F 81 16 124/68 96
04/15/25 11:00 04/15/25 11:00 04/15/25 11:00 04/15/25 11:00 04/15/25 11:00
Data Reviewed
-
Total Time Spent with Patient (in minutes): 55
--- NOTE | 2025-04-15 11:19 | W.PN.NEPH.PH ---
Today's Communication / Plan
-
HD tomorrow
Assessment/Plan
-
Impression:
Mental status change, lethargy
ESRD MWF, [facility]
A-fib
DM2
CAD/CABG
Anemia
PAD
RUE AVF/ligated LUE AVG
Hyperphophatemia
HTN
Diabetic neuropathy
Secondary hyperparathyroidism
Plan:
HD tomorrow
Infectious workup negative
check CXR
for hip XR and brain MRI
Physical therapy
-
-
Date of Service: April 15, 2025
CC / HPI / ROS
-
Chief Complaint:
ESRD
History of Present Illness:
tolerated HD yesterday
BP stable
fell in BR off toilet, hit right hip
Review of Systems:
no CP/SOB
Labs
-
Labs:
WBC 6.8 10^3/uL (4.8-10.8) 04/14/25 05:09
RBC 2.99 10^6/uL (4.70-6.10) L 04/14/25 05:09
Hgb 10.5 g/dL (13.0-18.0) L 04/14/25 05:09
Hct 31.1 % (39.0-52.0) L 04/14/25 05:09
Plt Count 184 10^3/uL (130-400) 04/14/25 05:09
Sodium 136 mmol/L (135-145) 04/14/25 05:09
Potassium 4.2 mmol/L (3.5-5.1) 04/14/25 05:09
Chloride 98 mmol/L (98-107) 04/14/25 05:09
Carbon Dioxide 25 mmol/L (22-30) 04/14/25 05:09
BUN 62 mg/dl (9-20) H 04/14/25 05:09
Creatinine 9.7 mg/dL (0.7-1.3) H* 04/14/25 05:09
eGFR 5.37 04/14/25 05:09
Glucose 115 mg/dl (70-99) H 04/14/25 05:09
Calcium 9.1 mg/dl (8.4-10.2) 04/14/25 05:09
Phosphorus 5.3 mg/dl (2.5-4.5) H 04/14/25 05:09
Albumin 5.1 g/dl (3.5-5.0) H 04/13/25 22:09
Physical Exam
-
Vital Signs:
Vital Signs
Temp Pulse Resp BP Pulse Ox
98.0 F 81 16 124/68 96
04/15/25 11:00 04/15/25 11:00 04/15/25 11:00 04/15/25 11:00 04/15/25 11:00
Cardiovascular:: Regular rate and rhythm
Respiratory:: Bilateral: Coarse
Lung Excursion:: Normal
Abdomen:: Nontender and Soft
Bowel Sounds:: Normal
Extremity Edema:: None: Bilateral:
--- NOTE | 2025-04-15 11:31 | FALL ---
Description of Fall:
pt was in the bathroom having a bowel movement, asked staff to step out and provide privacy, staff did advise and educated patient how to pull the cord whne ready to be helped up and with cleaning, but patient wanted to try and clean himself and
lost his balance when doing so. he did call for staff by voice, when on the floor, no bleeding, no injury noted, denies hitting his head. He had the walker in front of him, and staff just had left bathroom to check and see if patient was done ad
ready to be helped but he again stated that he wanted privacy and he will call when finished. a minute later he was observed on the floor. Neuro check performed, able to walk wit staff to the bed, able to lift himself with assistance from floor and
standing up to walk. DR Guevara made aware and orders place in chart.
Injuries Noted:
none
Action Taken:
DR Guevara made aware. Bed alarm and chair alarm in place
Name of Provider Notified: DR Guevara
[2025-04-15] MEDS: NOVOLOG FLEXPEN-LOW RESISTANCE 2 UNITS SC (13:26)
[2025-04-15 15:05] VITALS: BP 168/84
[2025-04-15] MEDS: ATIVAN 1 MG PO (16:20)
[2025-04-15 17:42] LABS: Glucose - Point of Care 96 mg/dl (70-99)
[2025-04-15 19:17] VITALS: BP 139/63
[2025-04-15] MEDS: NON-FORMULARY ITEM PO (19:44)
[2025-04-15] MEDS: LIPITOR 80 MG PO (21:08)
[2025-04-15] MEDS: IMODIUM 2 MG PO (21:09)
[2025-04-15 21:24] LABS: Glucose - Point of Care 132 mg/dl (70-99)
[2025-04-15 23:24] VITALS: BP 137/65
[2025-04-16 03:18] VITALS: BP 138/69
[2025-04-16 06:00] VITALS: BMI 28.4
[2025-04-16 07:00] VITALS: BP 133/72
[2025-04-16 07:07] LABS: Glucose - Point of Care 101 mg/dl (70-99)
[2025-04-16] MEDS: NOVOLOG FLEXPEN-LOW RESISTANCE SC ×3 (07:10→17:36)
[2025-04-16] MEDS: ZETIA 10 MG PO (07:50)
[2025-04-16] MEDS: ELIQUIS 5 MG PO ×2 (07:50→20:58)
[2025-04-16] MEDS: ProAmatine 5 MG PO (07:51)
[2025-04-16] MEDS: VITAMIN C 500 MG PO (07:51)
[2025-04-16] MEDS: RITALIN 30 MG PO (07:51)
[2025-04-16] MEDS: ZOLOFT 100 MG PO ×2 (07:52→20:58)
[2025-04-16] MEDS: PHOSLO 667 MG PO ×3 (07:52→17:15)
[2025-04-16] MEDS: TOPROL XL 12.5 MG PO (07:52)
[2025-04-16] MEDS: PLAVIX 75 MG PO (07:53)
[2025-04-16] MEDS: NORVASC PO (07:54)
[2025-04-16] MEDS: NON-FORMULARY ITEM PO ×2 (08:01→19:45)
[2025-04-16 08:44] LABS: Hematocrit 30.9 % (39.0-52.0); Hemoglobin 10.2 g/dL (13.0-18.0); Mean Corpuscular Hgb 34.5 pg (27.0-31.0); Mean Corpuscular Volume 104.4 fL (80.0-94.0); Mean Platelet Volume 11.5 fL (7.4-10.4); Platelet Count 157 10^3/uL (130-400); Red Blood Cell Count 2.96 10^6/uL (4.70-6.10); White Blood Cell Count 5.3 10^3/uL (4.8-10.8)
[2025-04-16 08:56] LABS: Carbon Dioxide 29 mmol/L (22-30); Chloride 99 mmol/L (98-107); Phosphorus 3.2 mg/dl (2.5-4.5); Potassium 4.8 mmol/L (3.5-5.1); Sodium 134 mmol/L (135-145)
--- NOTE | 2025-04-16 10:38 | W.PN.HOSP.TC ---
Addendum entered and electronically signed by Ac Guevara MD 04/16/25 10:53:
Updated spouse with the phone in details
Original Note:
Today's Communication/Plan
-
await MR brain results
neurology input
HD today
OOB/PT
Assessment / Plan
Assessment / Plan
general: Sitting in chair and is able to have a conversation
HEENT: NormoCephalic, Moist mucous membranes and Atraumatic
Respiratory: Clear
Cardiac: S1/S2 No Murmur or Rub
GI: Soft, Non Tender, Non Distended and Normal Bowel Sounds; No Organomegaly
Rectal: Deferred by Provider
Genito-urinary: No costovertebral tender; No Luther
Musculoskeletal: No Clubbing, No Cyanosis and No Edema, RUE AVF
Skin: No Rash
Neuro: No Motor Deficits, Nonfocal/grossly intact
Hematologic/Lymphatic: No Lymphadenopathy
Psych: Awake alert with mild disorientation, slow at times
#Toxic metabolic encephalopathy likely secondary to polypharmacy (oxycodone, ativan, flexeril, abilify ) versus low likelihood of seizure versus infection versus uremia
CT of the head was negative for acute bleeding
Patient denies any drug use. Hold Ativan 1mg TID. Also hold Abilify.
Check UDS if patient is able to give a sample
Continue with neurochecks
Continue methylphenidate
If no improvement in mentation with dialysis and clearance of oxycodone may need further neurology input
No productive cough or diarrhea. White count normal. Afebrile. Preliminary negative so far.
Will check MR brain -results pending
Will ask neurology for input
#Mechanical fall
recheck R hip xray w/pelvis -negative for fracture
# Chronic lower back pain likely secondary to lumbar radiculopathy
#History of lumbar fusion
Patient with recent MRI with severe lumbar spinal narrowing
Recent lumbar spine x-ray Postoperative and multilevel degenerative changes of the lumbar spine without acute fracture or complication.
Physical therapy evaluation
#ESRD on hemodialysis
#ESRD related anemia
#Interstitial edema due to ESRD volume overload
HD per nephrology.
Tenapanor (non formulary)
Remains on transplant list
#AVF Status post right upper extremity fistulogram with balloon angioplasty on 03/17
- Monitor post hemodialysis for bleeding
ASCVD (CAD, PAD, Carotid Disease, CVA / TIA) with Dyslipidemia
CAD s/p CABG s/p recent stents 11/17
Continue with Plavix and Eliquis
Continue with high-dose of statin
Monitor on telemetry
Follows w/[facility] Dr. Serra
Parox A. Fib
Continue with metoprolol
Continue with Eliquis
Monitor on telemetry
Primary hypertension
Continue with Norvasc
Volume removal should also help with blood pressure
Diabetes mellitus type 2
Insulin sliding scale and Accu-Chek
Hold Ozempic for now
Depression/ADHD/anxiety
Continue with home dose of Ritalin/Zoloft
Holding Abilify and Ativan
History of CML
DVT prophylaxis with Eliquis
Full code
PT/OT-SNF vs. home PT. Will wait further eval upon follow up
Anticipated Discharge: > 48 hours
Subjective/Interval History
-
Date of Service: April 16, 2025
states of severe back pain
knew it was march and 2024. Got confused with date
Objective Data
-
Labs:
Laboratory Results
04/16/25
07:43
WBC 5.3
Hgb 10.2 L
Hct 30.9 L
Plt Count 157
Sodium 134 L
Potassium 4.8
Chloride 99
Carbon Dioxide 29
Vital Signs:
Vital Signs
Temp Pulse Resp BP Pulse Ox
98 F 81 17 132/70 97
04/16/25 07:00 04/16/25 07:00 04/16/25 07:00 04/16/25 07:52 04/16/25 07:00
I&O
04/15/25 04/16/25 04/17/25
06:59 06:59 06:59
Intake Total 1020 / 1020
Output Total 0 / 0
Balance 1020 / 1020
[2025-04-16] MEDS: IMODIUM 2 MG PO ×2 (11:01→22:04)
[2025-04-16 11:06] VITALS: BP 128/71
--- NOTE | 2025-04-16 11:07 | W.PN.NEPH.HD ---
Assessment
-
pt seen during hd
vitals stable
AVG functions well
d/c plan
Progress Note - Hemodialysis
-
Date of Service: April 16, 2025
Duration: 30 minutes and 3 hours
Potassium Bath: 2
Calcium Bath: 2.5
Opti-Dialyzer: 160
Ultrafiltration: Other (1.5kg)
Blood Flow: 400
Dialysate Flow: 600
Heparin: no
EPO: no
[2025-04-16 11:50] LABS: Glucose - Point of Care 117 mg/dl (70-99)
--- NOTE | 2025-04-16 13:38 | CM ---
CM following re: discharge planning.
Reviewed pt' chart, met with pt.
Per chart review, HD treatment today, await MR brain results, continue supportive care.
Pt lives with spouse 2SH, 2 steps to enter, has 4 supportive children. Pt ambulates with a walker, [facility], was at [facility] two times. Pt reports he has been receiving outpatient HD treatment for 2 years at [facility] on [address] [facility], chair time 6:00 a.m. Pt reports he drives himself to and from HD treatment.
PT and OT evaluations noted - SNF vs home PT recommended. A referral to [facility] made yesterday. Per [facility] liaison, pt will be accepted for SNF level of care when medically stable and they will transport the pt for outpatient
HD treatment to [facility] on [address] in [facility].
D/C plan: [facility] with HD treatment at [facility] on [address].
CM will follow to assist pt with discharge to [facility] with HD treatment at [facility]
--- NOTE | 2025-04-16 14:06 | EEG.RPT ---
Electroencephalogram Report
Recording
Date of EE04/16/25
Type of EEG: Routine
Length of EEG recordin mins
Done with Video Recording: Yes
Patient Status: Inpatient
Recording Conditions: Awake and Drowsy
Hyperventilation Performed: No
Photic Stimulation Performed: Yes
Report
Clinical Background:�He is a 69 year old man with altered mental status
Introduction: A routine bedside EEG was done using International 10-20 electrode placement protocol.
Background: In the most alert state, the PDR is 8-9 Hz in frequency with normal amplitude. There is spontaneous variability and reactivity.�
Sleep: No sleep is seen.�
Focal/epileptiform: There were no focal or epileptiform discharges. No clinical or electrographic seizures occurred during this recording.
Photic stimulation: resulted in normal driving response. There was no photo myogenic or photoparoxysmal response.�
Impression: Normal EEG
--- NOTE | 2025-04-16 14:09 | CON.NEURO ---
Neuro Assessment/Plan
Assessment
brain MRI imgs rev'd, moderate atrophy, mild microvascular changes
agree toxic metabolic encephalopathy due to polypharmacy
suspect some degree of vascular dementia given longstanding chronic illness, though this is not diagnosed in the acute setting
Consultation
Order
Date of Consultation: 04/16/25
Requesting Provider: Ac Guevara
Reason for Consult: AMS
Subjective/Objective
Subjective Data
Date of Service: April 16, 2025
From H&P:
69yo M with PMH Afib on Eliquis, CAD s/p [place], HTN/HLD, DM2, COPD, FINESSE, CML, CVA, ESRD on HD, PAD s/p L fempop bypass, Hx SDH, ADD presents to ER for AMS. Pt is a severly poor historian falling asleep during exam. I attempted to call patients spouse
at 0400 on 04/14/25 without success. History thus limited. He does report falls but unable to give further details. Appears to have struck his right side. Unclear of head strike or LOC. Unclear of CML treatment status. Denies F/C, Cough, Chest Pain,
Abd Pain, Calf or Leg Pain. Endorses still making urine. ROS otherwise unattainable.
He was admitted, suspected toxic metabolic encephalopathy due to polypharmacy (oxycodone, ativan, flexeril, abilify ) I saw him as he was finishing hemodialysis, patient mentating pretty well, AAOx3, a little slow, c/o pain, wanting to get his pain
meds
Objective Data
Vital Signs
Temp Pulse Resp BP Pulse Ox
37.1 C 82 17 128/71 96
04/16/25 11:06 04/16/25 11:06 04/16/25 11:06 04/16/25 11:06 04/16/25 11:06
Lab Results
04/16/25 07:43
04/16/25 07:43
Sodium 134 mmol/L (135-145) L 04/16/25 07:43
Potassium 4.8 mmol/L (3.5-5.1) 04/16/25 07:43
BUN 62 mg/dl (9-20) H 04/14/25 05:09
Glucose 115 mg/dl (70-99) H 04/14/25 05:09
Calcium 9.1 mg/dl (8.4-10.2) 04/14/25 05:09
Phosphorus 3.2 mg/dl (2.5-4.5) 04/16/25 07:43
Vitamin B12 879 pg/ml (239-931) 04/14/25 05:09
Ur Buprenorphine Cancelled 04/15/25 15:00
Patient Allergies
Iodinated Contrast Media Allergy (Verified 04/13/25 22:00)
Nausea / Vomiting, 'panic attack'
latex Allergy (Verified 04/13/25 22:00)
Itching
morphine Allergy (Verified 04/13/25 22:00)
Itching
Physical Exam
-
AAOx3, speech clear, language intact, slow to process
VFF, EOMI, face symmetric
full strength b/l UE, 4/5 b/l LE
Medications
-
Active Medications
Generic Name Dose Route Start Last Admin
Trade Name Freq PRN Reason Stop Dose Admin
Acetaminophen 650 mg 04/14/25 06:55 04/14/25 17:58
Acetaminophen 325 Mg Tablet PO 05/12/25 06:54 650 mg
Q4HPRN PRN Administration
mild pain/fever >100 F
Albumin Human 12.5 grams 04/16/25 08:00
Albumin 12.5 Grams/50 Ml Bag *For Hemodialysis* IV 04/16/25 23:59
HD-Q1HPRN PRN
SBP < 90 mmHg
Albuterol 2 puff 04/14/25 06:55
Albuterol Hfa [90 Mcg/Dose] Inhaler INH
R Q4HPRN PRN
sob
Protocol
Albuterol/Ipratropium 3 ml 04/14/25 06:55
Ipratropium 0.5/Albuterol 3 Mg (3 Ml Ampul) INH
R Q4HPRN PRN
shortness of breath
Protocol
Amlodipine Besylate 2.5 mg 04/14/25 08:00 04/16/25 07:54
Amlodipine 2.5 Mg Tablet PO 05/12/25 07:59 Not Given
BID RYLEE
Apixaban 5 mg 04/14/25 08:00 04/16/25 07:50
Apixaban (Eliquis) 5 Mg Tablet PO 05/12/25 07:59 5 mg
BID RYLEE Administration
Aripiprazole 2 mg 04/14/25 08:00 04/14/25 07:48
Aripiprazole 2 Mg Tablet PO 05/12/25 07:59 2 mg
DAILY RYLEE Administration
Ascorbic Acid 500 mg 04/14/25 08:00 04/16/25 07:51
Ascorbic Acid 500 Mg Tablet PO 05/12/25 07:59 500 mg
DAILY RYLEE Administration
Atorvastatin Calcium 80 mg 04/14/25 22:00 04/15/25 21:08
Atorvastatin (Lipitor) 80 Mg Tablet PO 05/12/25 21:59 80 mg
HS RYLEE Administration
Bisacodyl 10 mg 04/14/25 06:55
Bisacodyl 10 Mg Rectal Suppository RECTAL 05/12/25 06:54
[id number] PRN
constipation
Calcium Acetate 667 mg 04/14/25 08:00 04/16/25 11:01
Calcium Acetate 667 Mg Tablet PO 05/12/25 07:59 667 mg
TID @ 0800,1200,1700 RYLEE Administration
Clopidogrel Bisulfate 75 mg 04/14/25 08:00 04/16/25 07:53
Clopidogrel 75 Mg Tablet PO 05/12/25 07:59 75 mg
DAILY RYLEE Administration
Dextrose 12.5 grams 04/14/25 06:55
Dextrose 50% (0.5 Grams/Ml) 50 Ml Syringe IV 05/12/25 06:54
[id number] PRN
hypoglycemia
Protocol
Ezetimibe 10 mg 04/14/25 08:00 04/16/25 07:50
Ezetimibe (Zetia) 10 Mg Tablet PO 05/12/25 07:59 10 mg
DAILY RYLEE Administration
Glucagon 1 mg 04/14/25 06:55
Glucagon 1 Mg Vial IM 05/12/25 06:54
PRN PRN
hypoglycemia
Protocol
Insulin Aspart 0 units 04/14/25 07:30 04/16/25 11:51
Insulin Aspart Low Resistance 300 Units/3 Ml Pen.Injctr SC 05/12/25 07:29 Not Given
AC RYLEE
Protocol
Loperamide HCl 2 mg 04/14/25 07:26 04/16/25 11:01
Loperamide 2 Mg Capsule PO 05/12/25 07:25 2 mg
TIDPRN PRN Administration
dairrhea
Lorazepam 1 mg 04/15/25 16:16 04/15/25 16:20
Lorazepam 1 Mg Tablet PO 04/16/25 16:15 1 mg
ONCE PRN PRN Administration
anxiety/clautrophobia
Mannitol 12.5 grams 04/16/25 08:00
Mannitol 25% (12.5 Grams/50 Ml) Vial IV 04/16/25 23:59
HD-Q1HPRN PRN
SBP < 90 mmHg
Melatonin 5 mg 04/14/25 06:55
Melatonin 5 Mg Tablet PO 05/12/25 06:54
HSPRN PRN
sleep
Methylphenidate HCl 30 mg 04/14/25 08:00 04/16/25 07:51
Methylphenidate 10 Mg Tablet PO 04/28/25 07:59 30 mg
DAILY RYLEE Administration
Metoprolol Succinate 12.5 mg 04/14/25 08:00 04/16/25 07:52
Metoprolol 25 Mg Extended Release Tablet PO 05/12/25 07:59 12.5 mg
DAILY RYLEE Administration
Metoprolol Tartrate 5 mg 04/14/25 17:32
Metoprolol 5 Mg/5 Ml Vial IV 05/12/25 17:31
Q6HPRN PRN
HR>125
Midodrine 5 mg 04/14/25 17:42 04/16/25 07:51
Midodrine 5 Mg Tablet PO 05/12/25 17:41 5 mg
Q4HPRN PRN Administration
SBP<100
Non-Formulary Medication 0 mg 04/14/25 08:00 04/16/25 08:01
Tenapanor [Xphozah] PO 05/12/25 07:59 Not Given
BID RYLEE
Ondansetron HCl 4 mg 04/14/25 06:55
Ondansetron 4 Mg/2 Ml Vial IV 05/12/25 06:54
Q6HPRN PRN
nausea and vomiting
Polyethylene Glycol 17 grams 04/14/25 06:55
Polyethylene Glycol Powder 17 Grams Packet PO 05/12/25 06:54
DAILYPRN PRN
constipation
Senna/Docusate Sodium 1 tablet 04/14/25 06:55
Docusate W/Senna (Cassia-Colace) Tablet PO 05/12/25 06:54
BIDPRN PRN
constipation
Sertraline HCl 100 mg 04/14/25 08:00 04/16/25 07:52
Sertraline 100 Mg Tablet PO 05/12/25 07:59 100 mg
BID RYLEE Administration
Sodium Chloride 0 flush 04/14/25 06:00 04/14/25 06:24
Sodium Chloride 0.9% (Flush) Syringe IV 05/12/25 05:59 1 flush
PER PROTOCOL RYLEE Administration
Sodium Chloride 0 flush 04/14/25 08:00
Sodium Chloride 0.9% (Flush) Syringe IV 05/12/25 07:59
PER PROTOCOL RYLEE
Sodium Chloride 10 ml 04/16/25 08:00
Sodium Chloride (4 Meq/Ml) 30 Ml Vial *For Hemodialysis* IV 04/16/25 23:59
HD-Q1HPRN PRN
cramps
Home Medications
�Medication �Instructions �Recorded
melatonin 5 mg tablet 5 mg PO HSPRN PRN sleep 04/06/19
atorvastatin 80 mg tablet 80 mg PO HS High cholesterol 01/25/21
clopidogrel 75 mg tablet (Plavix) 75 mg PO DAILY Blood Clot 02/19/24
Prevention/Tx
coQ10 (ubiquinol) 200 mg capsule 200 mg PO DAILY Supplement 02/19/24
semaglutide 0.25 mg or 0.5 mg (2 0.25 mg SC GRIMM Diabetes 02/19/24
mg/3 mL) subcutaneous pen injector
(Ozempic)
sertraline 100 mg tablet 100 mg PO BID Mental Health 02/19/24
vitamin B complex-vitamin C-folic 1 tab PO MOWEFR Supplement 02/19/24
acid 0.8 mg tablet (Nephro-Michelle)
amlodipine 2.5 mg tablet 2.5 mg PO BID #60 tabs 02/28/24
apixaban 5 mg tablet (Eliquis) 5 mg PO BID #60 tabs 02/28/24
acetaminophen 325 mg tablet 650 mg PO Q4HPRN PRN mild 05/25/24
pain/fever >100
albuterol sulfate 90 mcg/actuation 2 puff inhalation R Q4HPRN PRN sob 05/25/24
aerosol inhaler
methylphenidate HCl 10 mg tablet 30 mg PO DAILY ADHD 07/07/24
metoprolol succinate 25 mg 12.5 mg PO DAILY Heart 09/23/24
tablet,extended release 24 hr Disease/Condition
lorazepam 1 mg tablet 1 mg PO TID@1200,1700,2200 Mental 10/28/24
Health/Anxiety
ascorbic acid (vitamin C) 500 mg 500 mg PO DAILY Supplement 11/03/24
tablet (Vitamin C)
ezetimibe 10 mg tablet (Zetia) 10 mg PO DAILY High Cholesterol #0 11/04/24
tabs
aripiprazole 2 mg tablet (Abilify) 2 mg PO DAILY Mental Health/Anxiety 03/15/25
loperamide 2 mg tablet 2 mg PO TIDPRN PRN dairrhea 03/15/25
oxycodone 10 mg tablet 10 mg PO BID PRN severe pain #10 03/19/25
tabs
calcium acetate 667 mg PO TIDWMEAL 04/14/25
tenapanor 30 mg tablet (Xphozah) 30 mg PO BID IBS 04/14/25
[2025-04-16 14:43] VITALS: BP 133/65
--- NOTE | 2025-04-16 15:12 | PTCARENOTE ---
we are currently out of the patients medication from home Tenapanor. stated they talked to MD about it today and they are discussing whether they need to continue it since they were only given 2 sample bottles. will continue to follow information
--- NOTE | 2025-04-16 16:07 | PN.CDI ---
CDI
- -
CDI:
Physician Documentation Request
Admit Date: 04/14/25 05:30
Dear Doctor Ismael,
Please review the following and provide your response in the progress notes.
Clinical Indicators:
Pt admitted with TME likely due to polypharmacy/ESRD on HD
Progress notes 04/15 &04/16, ' Interstitial edema due to ESRD volume overload..'
Nephrology notes ,' diastolic CHF..'
Documented per past visit progress note 01/26/25 , 'Chronic HFpEF continue metoprolol volume control with dialysis..'
ECHO 07/02/24 ,'LV ejection fraction is 50-55%. '
CXR 04/15,' Mild central pulmonary vascular congestion...'
Please provide further specificity regarding the most likely type and acuity of CHF you are evaluating, treating or monitoring.
Acute on Chronic Diastolic CHF
Chronic Diastolic CHF
Other ( please specify)
Use of terms such as suspected, likely, concern for, or probable (associated with a specific diagnosis that is being evaluated, monitored, or treated as if it exists) are acceptable and can be coded in the inpatient setting, when documented at the
time of discharge.
Thank you,
Luz Cuello RN
CDI Specialist
[place] [facility]
Please use your independent medical judgment in providing your response.
[2025-04-16 17:24] LABS: Glucose - Point of Care 119 mg/dl (70-99)
[2025-04-16 19:17] VITALS: BP 109/59
[2025-04-16] MEDS: NORVASC 2.5 MG PO (20:58)
[2025-04-16] MEDS: LIPITOR 80 MG PO (20:58)
[2025-04-16 23:28] VITALS: BP 152/75
[2025-04-16 23:38] LABS: Glucose - Point of Care 111 mg/dl (70-99)
[2025-04-17 03:27] VITALS: BP 144/68
[2025-04-17 06:00] VITALS: BMI 29.6
[2025-04-17 07:05] VITALS: BP 146/65
[2025-04-17 07:05] LABS: Glucose - Point of Care 91 mg/dl (70-99)
[2025-04-17] MEDS: NOVOLOG FLEXPEN-LOW RESISTANCE SC ×2 (07:06→17:49)
[2025-04-17 07:22] VITALS: BMI 29.6
[2025-04-17] MEDS: TOPROL XL 12.5 MG PO (07:46)
[2025-04-17] MEDS: NORVASC 2.5 MG PO ×2 (07:47→19:49)
[2025-04-17] MEDS: RITALIN 30 MG PO (07:47)
[2025-04-17] MEDS: ELIQUIS 5 MG PO ×2 (07:47→19:49)
[2025-04-17] MEDS: VITAMIN C 500 MG PO (07:47)
[2025-04-17] MEDS: ZETIA 10 MG PO (07:47)
[2025-04-17] MEDS: PHOSLO 667 MG PO ×3 (07:47→18:31)
[2025-04-17] MEDS: PLAVIX 75 MG PO (07:47)
[2025-04-17] MEDS: ZOLOFT 100 MG PO ×2 (07:47→19:58)
[2025-04-17] MEDS: NON-FORMULARY ITEM PO (07:48)
--- NOTE | 2025-04-17 10:14 | W.PN.HOSP.TC ---
Today's Communication/Plan
-
monitor mentation
oxy for severe back pain
dc abilify
pt/ot
snf on dc
cm for dispo
Assessment / Plan
Assessment / Plan
general: resting in bed, mentation seems to be improving daily-slow speech
HEENT: NormoCephalic, Moist mucous membranes and Atraumatic
Respiratory: Clear
Cardiac: S1/S2 No Murmur or Rub
GI: Soft, Non Tender, Non Distended and Normal Bowel Sounds; No Organomegaly
Rectal: Deferred by Provider
Genito-urinary: No costovertebral tender; No Luther
Musculoskeletal: No Clubbing, No Cyanosis and No Edema, RUE AVF
Skin: No Rash
Neuro: No Motor Deficits, Nonfocal/grossly intact
Psych: Awake alert with mild disorientation, slow at times
#Toxic metabolic encephalopathy likely secondary to polypharmacy (oxycodone, ativan, flexeril, abilify ) versus low likelihood of seizure versus infection versus uremia vs. congitive impairment w/vascular dementia
CT of the head was negative for acute bleeding
Patient denies any drug use. Hold Ativan 1mg TID. Also hold Abilify.
Continue with neurochecks
Continue methylphenidate
No productive cough or diarrhea. White count normal. Afebrile. Preliminary negative so far.
MR brain No acute intracranial abnormality noted. Moderate atrophy with sequelae of mild chronic small vessel ischemic disease, similar in appearance to prior.
d/w with neurology -reintroduce meds 1 at a time
EEG normal
OP neurology f/u recommended
#Mechanical fall
recheck R hip xray w/pelvis -negative for fracture
# Chronic lower back pain likely secondary to lumbar radiculopathy
#History of lumbar fusion
Patient with recent MRI with severe lumbar spinal narrowing
Recent lumbar spine x-ray Postoperative and multilevel degenerative changes of the lumbar spine without acute fracture or complication.
Physical therapy evaluation
Oxycodone restarted
#ESRD on hemodialysis
#ESRD related anemia
#Interstitial edema due to ESRD volume overload
HD per nephrology.
Tenapanor (non formulary)
Remains on transplant list
#AVF Status post right upper extremity fistulogram with balloon angioplasty on 03/17
- Monitor post hemodialysis for bleeding
ASCVD (CAD, PAD, Carotid Disease, CVA / TIA) with Dyslipidemia
CAD s/p CABG s/p recent stents 11/17
Chronic HFpEF
Continue with Plavix and Eliquis
Continue with high-dose of statin
Monitor on telemetry
Follows w/[facility] Dr. Serra
Parox A. Fib
Continue with metoprolol
Continue with Eliquis
Monitor on telemetry
Primary hypertension
Continue with Norvasc
Volume removal should also help with blood pressure
Diabetes mellitus type 2
Insulin sliding scale and Accu-Chek
Hold Ozempic for now
Depression/ADHD/anxiety
Continue with home dose of Ritalin/Zoloft
Holding Abilify and Ativan
History of CML
DVT prophylaxis with Eliquis
Full code
PT/OT-SNF on dc
Anticipated Discharge: 24 - 48 hours
Subjective/Interval History
-
Date of Service: April 17, 2025
states of severe back pain, foot pain
did not sleep much due to pain
Objective Data
-
Vital Signs:
Vital Signs
Temp Pulse Resp BP Pulse Ox
98.1 F 63 16 146/65 98
04/17/25 07:05 04/17/25 07:47 04/17/25 07:05 04/17/25 07:47 04/17/25 07:05
I&O
04/16/25 04/17/25 04/18/25
06:59 06:59 06:59
Intake Total 1020 / 1020 600 / 600
Output Total 0 / 0
Balance 1020 / 1020 600 / 600
--- NOTE | 2025-04-17 10:50 | W.PN.NEPH.PH ---
Today's Communication / Plan
-
HD Saturday
likely rehab at d/c
Assessment/Plan
-
Impression:
Mental status change, lethargy
ESRD MWF, [facility]
A-fib
DM2
CAD/CABG
Anemia
PAD
RUE AVF/ligated LUE AVG
Hyperphophatemia
HTN
Diabetic neuropathy
Secondary hyperparathyroidism
Plan:
more awake and TME felt from polypharmacy per neuro
meds adjustment per primary
next HD Saturday
likely need rehab
-
-
Date of Service: April 17, 2025
CC / HPI / ROS
-
Chief Complaint:
ESRD
History of Present Illness:
tolerated HD yesterday
BP stable
no fever
Review of Systems:
no CP/SOB
Labs
-
Labs:
WBC 5.3 10^3/uL (4.8-10.8) 04/16/25 07:43
RBC 2.96 10^6/uL (4.70-6.10) L 04/16/25 07:43
Hgb 10.2 g/dL (13.0-18.0) L 04/16/25 07:43
Hct 30.9 % (39.0-52.0) L 04/16/25 07:43
Plt Count 157 10^3/uL (130-400) 04/16/25 07:43
Sodium 134 mmol/L (135-145) L 04/16/25 07:43
Potassium 4.8 mmol/L (3.5-5.1) 04/16/25 07:43
Chloride 99 mmol/L (98-107) 04/16/25 07:43
Carbon Dioxide 29 mmol/L (22-30) 04/16/25 07:43
BUN 62 mg/dl (9-20) H 04/14/25 05:09
Creatinine 9.7 mg/dL (0.7-1.3) H* 04/14/25 05:09
eGFR 5.37 04/14/25 05:09
Glucose 115 mg/dl (70-99) H 04/14/25 05:09
Calcium 9.1 mg/dl (8.4-10.2) 04/14/25 05:09
Phosphorus 3.2 mg/dl (2.5-4.5) 04/16/25 07:43
Albumin 5.1 g/dl (3.5-5.0) H 04/13/25 22:09
Physical Exam
-
Vital Signs:
Vital Signs
Temp Pulse Resp BP Pulse Ox
98.1 F 63 16 146/65 98
04/17/25 07:05 04/17/25 07:47 04/17/25 07:05 04/17/25 07:47 04/17/25 07:05
Cardiovascular:: Regular rate and rhythm
Respiratory:: Bilateral: CTA
Lung Excursion:: Normal
Abdomen:: Nontender and Soft
Extremity Edema:: None: Bilateral:
Luther Catheter: No
[2025-04-17 11:05] VITALS: BP 130/56
[2025-04-17 11:44] LABS: Glucose - Point of Care 158 mg/dl (70-99)
--- NOTE | 2025-04-17 12:43 | CM ---
Patient for discharge 04/19/25 after HD. Surya ruby [place] aware [phone]. aware.
[2025-04-17] MEDS: NOVOLOG FLEXPEN-LOW RESISTANCE 1 UNITS SC (13:21)
[2025-04-17 15:00] VITALS: BP 121/44
[2025-04-17] MEDS: ROXICODONE 5 MG PO ×2 (15:40→23:06)
[2025-04-17] MEDS: IMODIUM 2 MG PO (15:40)
[2025-04-17 17:48] LABS: Glucose - Point of Care 118 mg/dl (70-99)
[2025-04-17 19:25] VITALS: BP 153/72
[2025-04-17] MEDS: LIPITOR 80 MG PO (21:35)
[2025-04-17 21:45] LABS: Glucose - Point of Care 141 mg/dl (70-99)
[2025-04-17 23:27] VITALS: BP 168/74
[2025-04-18] VITALS (7 sets, daily range): BP systolic 113–164; BP diastolic 69–82; PULSE 64; O2SAT 99; BMI 29.8
[2025-04-18 07:05] LABS: Glucose - Point of Care 102 mg/dl (70-99)
[2025-04-18] MEDS: NOVOLOG FLEXPEN-LOW RESISTANCE SC ×2 (07:16→12:17)
[2025-04-18] MEDS: VITAMIN C 500 MG PO (08:06)
[2025-04-18] MEDS: TOPROL XL 12.5 MG PO (08:06)
[2025-04-18] MEDS: RITALIN 30 MG PO (08:06)
[2025-04-18] MEDS: ZOLOFT 100 MG PO ×2 (08:06→19:21)
[2025-04-18] MEDS: NORVASC 2.5 MG PO ×2 (08:06→19:20)
[2025-04-18] MEDS: ELIQUIS 5 MG PO ×2 (08:06→19:21)
[2025-04-18] MEDS: PHOSLO 667 MG PO ×3 (08:06→17:23)
[2025-04-18] MEDS: ZETIA 10 MG PO (08:06)
[2025-04-18] MEDS: PLAVIX 75 MG PO (08:06)
--- NOTE | 2025-04-18 10:13 | W.PN.HOSP.TC ---
Today's Communication/Plan
-
HD tomm
can go to rehab thereafter
monitor mentation
Assessment / Plan
Assessment / Plan
general: resting in bed, mentation seems to be improving daily-slow speech
HEENT: NormoCephalic, Moist mucous membranes and Atraumatic
Respiratory: Clear
Cardiac: S1/S2 No Murmur or Rub
GI: Soft, Non Tender, Non Distended and Normal Bowel Sounds; No Organomegaly
Rectal: Deferred by Provider
Genito-urinary: No costovertebral tender; No Luther
Musculoskeletal: No Clubbing, No Cyanosis and No Edema, RUE AVF
Skin: No Rash
Neuro: No Motor Deficits, Nonfocal/grossly intact
Psych: Awake alert with mild disorientation, slow at times
#Toxic metabolic encephalopathy likely secondary to polypharmacy (oxycodone, ativan, flexeril, abilify ) versus low likelihood of seizure vs. cognitive impairment w/vascular dementia
CT of the head was negative for acute bleeding
Patient denies any drug use. Also hold Abilify.
Continue with neurochecks
Continue methylphenidate
No productive cough or diarrhea. White count normal. Afebrile. Preliminary negative so far.
MR brain No acute intracranial abnormality noted. Moderate atrophy with sequelae of mild chronic small vessel ischemic disease, similar in appearance to prior.
d/w with neurology -reintroduce meds 1 at a time
EEG normal
OP neurology f/u recommended
#Mechanical fall
recheck R hip xray w/pelvis -negative for fracture
# Chronic lower back pain likely secondary to lumbar radiculopathy
#History of lumbar fusion
Patient with recent MRI with severe lumbar spinal narrowing
Recent lumbar spine x-ray Postoperative and multilevel degenerative changes of the lumbar spine without acute fracture or complication.
Physical therapy evaluation
Oxycodone restarted
#ESRD on hemodialysis
#ESRD related anemia
#Interstitial edema due to ESRD volume overload
HD per nephrology.
Tenapanor (non formulary)
Remains on transplant list
#AVF Status post right upper extremity fistulogram with balloon angioplasty on 03/17
- Monitor post hemodialysis for bleeding
ASCVD (CAD, PAD, Carotid Disease, CVA / TIA) with Dyslipidemia
CAD s/p CABG s/p recent stents 11/17
Chronic HFpEF
Continue with Plavix and Eliquis
Continue with high-dose of statin
Monitor on telemetry
Follows w/[facility] Dr. Serra
Parox A. Fib
Continue with metoprolol
Continue with Eliquis
Monitor on telemetry
Primary hypertension
Continue with Norvasc
Volume removal should also help with blood pressure
Diabetes mellitus type 2
Insulin sliding scale and Accu-Chek
Hold Ozempic for now
Depression/ADHD/anxiety
Continue with home dose of Ritalin/Zoloft
Holding Abilify
restart ativan and observe. Per pt on it for long period of time
History of CML
DVT prophylaxis with Eliquis
Full code
PT/OT-SNF on dc
update spouse over the phone in details
Anticipated Discharge: Within 24 hours
Subjective/Interval History
-
Date of Service: April 18, 2025
states back pain has improved
didnt sleep much
Objective Data
-
Vital Signs:
Vital Signs
Temp Pulse Resp BP Pulse Ox
97.6 F 81 16 162/79 98
04/18/25 07:05 04/18/25 07:05 04/18/25 07:05 04/18/25 08:06 04/18/25 10:06
I&O
04/17/25 04/18/25 04/19/25
06:59 06:59 06:59
Intake Total 600 / 600 900 / 900
Balance 600 / 600 900 / 900
[2025-04-18 11:58] LABS: Glucose - Point of Care 123 mg/dl (70-99)
[2025-04-18] MEDS: ROXICODONE 5 MG PO ×2 (14:09→22:25)
--- NOTE | 2025-04-18 15:23 | W.PN.NEPH.PH ---
Today's Communication / Plan
-
HD tomorrow
Assessment/Plan
-
Impression:
Mental status change, lethargy
ESRD MWF, [facility]
A-fib
DM2
CAD/CABG
Anemia
PAD
RUE AVF/ligated LUE AVG
Hyperphophatemia
HTN
Diabetic neuropathy
Secondary hyperparathyroidism
Plan:
more awake and TME felt from polypharmacy per neuro
meds adjustment per primary
next HD Saturday
likely need rehab
reviewed renal diet andFR
-
-
Date of Service: April 18, 2025
CC / HPI / ROS
-
Chief Complaint:
ESRD
History of Present Illness:
tolerated HD 04/16
BP stable
no fever
Review of Systems:
no CP/SOB
decreased appetite
Labs
-
Labs:
WBC 5.3 10^3/uL (4.8-10.8) 04/16/25 07:43
RBC 2.96 10^6/uL (4.70-6.10) L 04/16/25 07:43
Hgb 10.2 g/dL (13.0-18.0) L 04/16/25 07:43
Hct 30.9 % (39.0-52.0) L 04/16/25 07:43
Plt Count 157 10^3/uL (130-400) 04/16/25 07:43
Sodium 134 mmol/L (135-145) L 04/16/25 07:43
Potassium 4.8 mmol/L (3.5-5.1) 04/16/25 07:43
Chloride 99 mmol/L (98-107) 04/16/25 07:43
Carbon Dioxide 29 mmol/L (22-30) 04/16/25 07:43
BUN 62 mg/dl (9-20) H 04/14/25 05:09
Creatinine 9.7 mg/dL (0.7-1.3) H* 04/14/25 05:09
eGFR 5.37 04/14/25 05:09
Glucose 115 mg/dl (70-99) H 04/14/25 05:09
Calcium 9.1 mg/dl (8.4-10.2) 04/14/25 05:09
Phosphorus 3.2 mg/dl (2.5-4.5) 04/16/25 07:43
Albumin 5.1 g/dl (3.5-5.0) H 04/13/25 22:09
Physical Exam
-
Vital Signs:
Vital Signs
Temp Pulse Resp BP Pulse Ox
97.8 F 70 16 113/82 100
04/18/25 11:00 04/18/25 11:00 04/18/25 11:00 04/18/25 11:00 04/18/25 11:00
Cardiovascular:: Regular rate and rhythm
Respiratory:: Bilateral: CTA
Lung Excursion:: Normal
Abdomen:: Nontender and Soft
Extremity Edema:: None: Bilateral:
Luther Catheter: No
[2025-04-18 17:07] LABS: Glucose - Point of Care 163 mg/dl (70-99)
[2025-04-18] MEDS: NOVOLOG FLEXPEN-LOW RESISTANCE 1 UNITS SC (17:23)
[2025-04-18 21:25] LABS: Glucose - Point of Care 127 mg/dl (70-99)
[2025-04-18] MEDS: LIPITOR 80 MG PO (22:25)
[2025-04-18] MEDS: ATIVAN 1 MG PO (23:13)
[2025-04-19 05:44] VITALS: BMI 29.8
[2025-04-19 07:08] VITALS: BP 164/84
--- NOTE | 2025-04-19 07:16 | W.PN.HOSP.TC ---
Today's Communication/Plan
-
Discharge to SNF today after dialysis
Assessment / Plan
Assessment / Plan
Impression:
61-year-old male past medical history of ESRD on hemodialysis, chronic back pain is present with altered mental status.��Deemed multifactorial secondary to medication.��Pain meds were slowly restarted.��
Mental status continue to improve, physical therapy and recommendation to go back to rehab.
Patient will be discharged today 04/19 after dialysis .
Hold Abilify upon discharge.
Assessment/plan:
Acute toxic metabolic encephalopathy likely secondary to polypharmacy (oxycodone, ativan, flexeril, abilify ) versus low likelihood of seizure vs. cognitive impairment w/vascular dementia
CT of the head was negative for acute bleeding
Patient denies any drug use. Also hold Abilify.
Continue with neurochecks
Continue methylphenidate
No productive cough or diarrhea. White count normal. Afebrile. Preliminary negative so far.
MR brain No acute intracranial abnormality noted. Moderate atrophy with sequelae of mild chronic small vessel ischemic disease, similar in appearance to prior.
d/w with neurology -reintroduce meds 1 at a time
EEG normal
OP neurology f/u recommended
s/P Mechanical fall
recheck R hip xray w/pelvis -negative for fracture
Chronic lower back pain likely secondary to lumbar radiculopathy
History of lumbar fusion
Patient with recent MRI with severe lumbar spinal narrowing
Recent lumbar spine x-ray Postoperative and multilevel degenerative changes of the lumbar spine without acute fracture or complication.
Physical therapy evaluation
Oxycodone restarted
ESRD on hemodialysis
ESRD related anemia
Interstitial edema due to ESRD volume overload
HD per nephrology.
Tenapanor (non formulary)
Remains on transplant list
AVF Status post right upper extremity fistulogram with balloon angioplasty on 03/17
- Monitor post hemodialysis for bleeding
ASCVD (CAD, PAD, Carotid Disease, CVA / TIA) with Dyslipidemia
CAD s/p CABG s/p recent stents 11/17
Chronic HFpEF
Continue with Plavix and Eliquis
Continue with high-dose of statin
Monitor on telemetry
Follows w/[facility] Dr. Serra
Parox A. Fib
Continue with metoprolol
Continue with Eliquis
Monitor on telemetry
Primary hypertension
Continue with Norvasc
Volume removal should also help with blood pressure
Diabetes mellitus type 2
Insulin sliding scale and Accu-Chek
Hold Ozempic for now
Depression/ADHD/anxiety
Continue with home dose of Ritalin/Zoloft
Holding Abilify
restart ativan and observe. Per pt on it for long period of time
CODE STATUS: Full code
DVT prophylaxis: Eliquis
Diet: Cardiac diet
Total time spent on today's encounter was 65 minutes which included time spent in counseling the patient/family regarding diagnosis and treatment plan as listed above, goals of care, and symptom management. Case was discussed with nursing staff,
specialists, and care coordinators/case management. All labs and imaging personally reviewed by me. Remainder the time spent in detailed review of previous records, lab data, imaging, and other medical provider documentation.
Anticipated Discharge: Today
Subjective/Interval History
-
Date of Service: April 19, 2025
Patient seen and examined at bedside, denies any chest pain or shortness of breath, feeling tired, denied abdominal pain, no nausea, no vomiting, no diarrhea or constipation.
Objective Data
-
Vital Signs:
Vital Signs
Temp Pulse Resp BP Pulse Ox
98.8 F 70 17 164/84 97
04/19/25 07:08 04/19/25 07:08 04/19/25 07:08 04/19/25 07:08 04/19/25 07:08
I&O
04/18/25 04/19/25 04/20/25
06:59 06:59 06:59
Intake Total 900 / 900 1260 / 1260
Balance 900 / 900 1260 / 1260
Physical Exam
-
General: Well Developed, Well Nourished, No Apparent Distress and Comfortable
HEENT: Normocephalic, Atraumatic, Moist Mucous Membranes, No Ptosis, PERRLA and Nose Appears Normal
Respiratory: Clear to Auscultation and Non Labored Respirations
Cardiac: Regular Rhythm and S1/S2
Breast: Deferred by me
GI: Soft, Nontender, Nondistended and Normal Bowel Sounds
Genito-urinary: No Costovertebral Tender
Musculoskeletal: No Clubbing, No Cyanosis, No Edema and Other (Right AV fistula)
Skin: Warm
Neuro: Awake, Alert, Oriented (Not fully oriented) and No Motor Deficits
Psych: Calm
Data Reviewed
-
Diagnostic Radiology: Image personally visualized and interpreted and Report Reviewed by me
CT Scan: Image personally visualized and interpreted and Report Reviewed by me
Ultrasound: Image personally visualized and interpreted and Report Reviewed by me
MRI: Image personally visualized and interpreted and Report Reviewed by me
Medical Tests (Nuc Med, Echo etc): Image personally visualized and interpreted and Report Reviewed by me
Labs: Labs Reviewed by me
Old Records: Reviewed
[2025-04-19 07:22] LABS: Glucose - Point of Care 98 mg/dl (70-99)
[2025-04-19] MEDS: RITALIN 30 MG PO (07:48)
[2025-04-19] MEDS: PHOSLO PO (07:48)
[2025-04-19] MEDS: NOVOLOG FLEXPEN-LOW RESISTANCE SC ×2 (07:48→11:59)
[2025-04-19] MEDS: ELIQUIS 5 MG PO (07:49)
[2025-04-19] MEDS: NORVASC PO (07:49)
[2025-04-19] MEDS: VITAMIN C 500 MG PO (07:49)
[2025-04-19] MEDS: ZETIA 10 MG PO (07:49)
[2025-04-19] MEDS: TOPROL XL PO (07:49)
[2025-04-19] MEDS: ZOLOFT 100 MG PO (07:49)
[2025-04-19] MEDS: PLAVIX 75 MG PO (07:49)
[2025-04-19 09:16] LABS: Hematocrit 30.8 % (39.0-52.0); Hemoglobin 10.3 g/dL (13.0-18.0)
[2025-04-19 09:33] LABS: Carbon Dioxide 24 mmol/L (22-30); Chloride 100 mmol/L (98-107); Potassium 5.2 mmol/L (3.5-5.1); Sodium 133 mmol/L (135-145)
[2025-04-19] MEDS: RETACRIT 2000 UNITS IV (09:54)
--- NOTE | 2025-04-19 10:24 | CM ---
Met with patient, plan d.c to [facility] today. to transport. call to Surya at [facility].
SNF would like patient by 5 pm. agrees to [employer] [facility] patient around 3 pm today to take to SNF.
report [phone]
fax [phone]
--- NOTE | 2025-04-19 11:14 | W.DCSUMMARY ---
Discharge Summary
Discharge Data
Date of Admission: 04/14/25
Date of Discharge: 04/19/25
-
Pending Results: No
Hospital Course
Hospital course
69-year-old male past medical history of ESRD on hemodialysis, chronic back pain is present with altered mental status.��Deemed multifactorial secondary to medication.��Pain meds were slowly restarted.��
Mental status continue to improve, physical therapy and recommendation to go back to rehab.
Patient will be discharged today 04/19 after dialysis .
Hold Abilify upon discharge.
During hospitalization patient was treated from the following
Acute toxic metabolic encephalopathy likely secondary to polypharmacy (oxycodone, ativan, flexeril, abilify ) versus low likelihood of seizure vs. cognitive impairment w/vascular dementia
CT of the head was negative for acute bleeding
Patient denies any drug use. Also hold Abilify.
Continue with neurochecks
Continue methylphenidate
No productive cough or diarrhea. White count normal. Afebrile. Preliminary negative so far.
MR brain No acute intracranial abnormality noted. Moderate atrophy with sequelae of mild chronic small vessel ischemic disease, similar in appearance to prior.
d/w with neurology -reintroduce meds 1 at a time
EEG normal
OP neurology f/u recommended
s/P Mechanical fall
recheck R hip xray w/pelvis -negative for fracture
Chronic lower back pain likely secondary to lumbar radiculopathy
History of lumbar fusion
Patient with recent MRI with severe lumbar spinal narrowing
Recent lumbar spine x-ray Postoperative and multilevel degenerative changes of the lumbar spine without acute fracture or complication.
Physical therapy evaluation
Oxycodone restarted
ESRD on hemodialysis
ESRD related anemia
Interstitial edema due to ESRD volume overload
HD per nephrology.
Tenapanor (non formulary)
Remains on transplant list
AVF Status post right upper extremity fistulogram with balloon angioplasty on 03/17
- Monitor post hemodialysis for bleeding
ASCVD (CAD, PAD, Carotid Disease, CVA / TIA) with Dyslipidemia
CAD s/p CABG s/p recent stents 11/17
Chronic HFpEF
Continue with Plavix and Eliquis
Continue with high-dose of statin
Monitor on telemetry
Follows w/[facility] Dr. Serra
Parox A. Fib
Continue with metoprolol
Continue with Eliquis
Monitor on telemetry
Primary hypertension
Continue with Norvasc
Volume removal should also help with blood pressure
Diabetes mellitus type 2
Insulin sliding scale and Accu-Chek
Hold Ozempic for now
Depression/ADHD/anxiety
Continue with home dose of Ritalin/Zoloft
Holding Abilify
restart ativan and observe. Per pt on it for long period of time
CODE STATUS: Full code
DVT prophylaxis: Eliquis
Diet: Cardiac diet
Total time spent on today's encounter was 40 minutes which included time spent in counseling the patient/family regarding diagnosis and treatment plan as listed above, goals of care, and symptom management. Case was discussed with nursing staff,
specialists, and care coordinators/case management. All labs and imaging personally reviewed by me. Remainder the time spent in detailed review of previous records, lab data, imaging, and other medical provider documentation.
Anticipated Discharge: Today
Discharge Plan
-
Patient Disposition: Senior Living/SNF
Discharge Diagnosis/Procedures: Toxic metabolic encephalopathy
Diet: 2 Gram Sodium and Restrict fluids to 48 oz
Activity: As tolerated
Driving Restrictions: As prior to admission
Referrals:
Placido Lora Jr., [Family Provider] -
Kang Carlos MD [Active] - As needed
Karin Munoz MD [Active] -
Prescriptions:
New
polyethylene glycol 3350 17 gram Powder In Packet
17 g PO DAILYPRN PRN (Reason: constipation) Qty: 0 0RF
midodrine 5 mg Tablet
5 mg PO Q4HPRN PRN (Reason: SBP<100) Qty: 0 0RF
oxycodone 5 mg Tablet
5 mg PO BIDPRN PRN (Reason: severe pain) Qty: 0 0RF
Continued
melatonin 5 MG tablet
5 mg PO HSPRN PRN (Reason: sleep)
atorvastatin 80 MG tablet
80 mg PO HS
sertraline 100 mg Tablet
100 mg PO BID
clopidogrel [Plavix] 75 mg Tablet
75 mg PO DAILY
Nephro-Michelle 0.8 mg Tablet
1 tab PO MOWEFR
coQ10 (ubiquinol) 200 mg Capsule
200 mg PO DAILY
Ozempic 0.25 mg or 0.5 mg (2 mg/3 mL) Pen Injector
0.25 mg SC GRIMM
Eliquis 5 mg Tablet
5 mg PO BID Qty: 60 0RF
amlodipine 2.5 mg Tablet
2.5 mg PO BID Qty: 60 2RF
acetaminophen 325 mg Tablet
650 mg PO Q4HPRN PRN (Reason: mild pain/fever >100)
albuterol sulfate 90 mcg/actuation Hfa Aerosol Inhaler
2 puff INHALATION R Q4HPRN PRN (Reason: sob)
methylphenidate HCl 10 mg tablet
30 mg PO DAILY
metoprolol succinate 25 mg tablet extended release 24 hr
12.5 mg PO DAILY
ascorbic acid (vitamin C) [Vitamin C] 500 mg Tablet
500 mg PO DAILY
ezetimibe [Zetia] 10 mg Tablet
10 mg PO DAILY Qty: 0 0RF
loperamide 2 mg Tablet
2 mg PO TIDPRN PRN (Reason: dairrhea)
Xphozah 30 mg Tablet
30 mg PO BID
Rx Instructions:
administer immediately before first and last meals of day
calcium acetate
667 mg PO TIDWMEAL
Changed
lorazepam 1 mg tablet
1 mg PO BIDPRN PRN (Reason: Anxiety) Qty: 0 0RF
Held
aripiprazole [Abilify] 2 mg Tablet
2 mg PO DAILY
Hold Instructions: Hold till follow up with PCP
Discontinued
oxycodone 10 mg tablet
10 mg PO BID PRN (Reason: severe pain) Qty: 10 0RF
Discharge Orders:
Discharge Patient (As Directed); Ordered 04/19/25
Ordered By: Barbara Tripp
Discharge Date and Time
Print Language: JAPANESE
[2025-04-19 11:45] LABS: Glucose - Point of Care 113 mg/dl (70-99)
--- NOTE | 2025-04-19 11:50 | W.PN.NEPH.HD ---
Assessment
-
pt seen during HD
vitals stable
UF as tolerated to get to [facility]
need strict FR and renal diet
[facility] rehab today and HD at [facility]
AVF functions well
Progress Note - Hemodialysis
-
Date of Service: April 19, 2025
Duration: 30 minutes and 3 hours
Potassium Bath: 2
Calcium Bath: 2.5
Opti-Dialyzer: 160
Ultrafiltration: Other (3kg)
Blood Flow: 400
Dialysate Flow: 600
Heparin: no
EPO: 2000
[2025-04-19] MEDS: PHOSLO 667 MG PO (12:40)
[2025-04-19] MEDS: ROXICODONE 5 MG PO (12:41)
[2025-04-19] MEDS: TYLENOL 650 MG PO (14:09)
[2025-04-19 14:51] VITALS: BP 135/73
== END 2025-04-19 16:36 | DRG 91 ==
LOC: 2 NORTH 05:30
PROVIDERS: Internal Medicine; ADMITTING PHYSICIAN Internal Medicine; ATTENDING PHYSICIAN General Practice; CONSULT PHYSICIAN Psychiatry & Neurology Clinical Neurophysiology; EMERGENCY PHYSICIAN Emergency Medicine; FAMILY PHYSICIAN Family Medicine; OTHER PHYSICIAN Specialist
PROC: 5A1D70Z Performance of Urinary Filtration, Intermittent, Less than 6 Hours Per Day (ICD-10-PCS; 2025-04-14)
DX: G92.8 Other toxic encephalopathy (principal); N18.6 End stage renal disease; I13.2 Hypertensive heart and chronic kidney disease with heart failure and with stage 5 chronic kidney disease, or end stage renal disease; I50.32 Chronic diastolic (congestive) heart failure; E87.20 Acidosis, unspecified; N25.81 Secondary hyperparathyroidism of renal origin; W06.XXXA Fall from bed, initial encounter; G89.29 Other chronic pain; M54.16 Radiculopathy, lumbar region; Z98.1 Arthrodesis status; Z99.2 Dependence on renal dialysis; I48.0 Paroxysmal atrial fibrillation; F32.A Depression, unspecified; F41.9 Anxiety disorder, unspecified; F90.9 Attention-deficit hyperactivity disorder, unspecified type; Z76.82 Awaiting organ transplant status; I25.10 Atherosclerotic heart disease of native coronary artery without angina pectoris; Z95.1 Presence of aortocoronary bypass graft; E78.00 Pure hypercholesterolemia, unspecified; Z79.02 Long term (current) use of antithrombotics/antiplatelets; Z79.899 Other long term (current) drug therapy; Z79.01 Long term (current) use of anticoagulants; E11.22 Type 2 diabetes mellitus with diabetic chronic kidney disease; E11.42 Type 2 diabetes mellitus with diabetic polyneuropathy; G47.33 Obstructive sleep apnea (adult) (pediatric); F17.200 Nicotine dependence, unspecified, uncomplicated; Z91.040 Latex allergy status; Z88.5 Allergy status to narcotic agent; E87.5 Hyperkalemia; D63.1 Anemia in chronic kidney disease; E83.39 Other disorders of phosphorus metabolism; I45.10 Unspecified right bundle-branch block; Z96.653 Presence of artificial knee joint, bilateral; Z91.041 Radiographic dye allergy status; E11.51 Type 2 diabetes mellitus with diabetic peripheral angiopathy without gangrene; E66.9 Obesity, unspecified; Z68.29 Body mass index [BMI] 29.0-29.9, adult; I25.2 Old myocardial infarction; T50.915A Adverse effect of multiple unspecified drugs, medicaments and biological substances, initial encounter; Z86.73 Personal history of transient ischemic attack (TIA), and cerebral infarction without residual deficits
CPT/HCPCS: 70450; 70551; 71046; 72125; 73030; 73502; 73552; 73590; 73630; 80048; 80051; 80053; 82077; 82140; 82607; 82805; 82962; 83605; 83735; 84100; 84443; 85014; 85018; 85025; 85027; 87040; 93005; 95816; 97116; 97163; 97530; 99285; G0257; P9047; Q5106

== ENCOUNTER 2025-05-03 14:52 | Inpatient (IN) | payer MEDICARE, OTHER, SELFPAY ==
[2025-05-02] VITALS (7 sets, daily range): BP systolic 186–236; BP diastolic 84–113
--- NOTE | 2025-05-02 22:43 | ED.GENMED ---
History of Present Illness
General
Chief Complaint: Skin Problem
Time Seen by Provider: 05/02/25 22:23
History of Present Illness
History of Present Illness:
Note:
CHIEF COMPLAINT(S)
Bleeding from fistula site.
HISTORY OF PRESENT ILLNESS
The patient is a 69-year-old male with end-stage renal disease on thrice-weekly dialysis. The patient reported spontaneous bleeding from the fistula site, which last had successful access during dialysis on Saturday. The patient noted, 'I knew it was
going to blow' in reference to his blood pressure being elevated and the subsequent bleeding at the fistula site. The patient is taking amlodipine and took an extra dose tonight due to concerns about blood pressure. Additionally, the patient takes
medications including Plavix and Eliquis. The patient has been in a custodial facility for the past two weeks for rehabilitation, particularly for leg strength.
The patient reported elevated blood pressure over the last few days, which was confirmed by the correction staff, although specific interventions at the facility were unclear. Today, upon noticing bleeding, the patient sought medical attention. No
significant distress was evident during the encounter.
CHRONIC MEDICAL CONDITIONS SIGNIFICANTLY AFFECTING CARE
- End-stage renal disease on dialysis.
- Hypertension.
MEDICATIONS
- Amlodipine
- Plavix
- Eliquis
PHYSICAL EXAM
GEN: Well appearing, NAD, WDWN
HEENT: Oral mucosa moist, no scleral icterus
Cardiac: Regular rate
Lung: No respiratory distress, no tachypnea
MSK: No gross deformity or injuries
Skin: Good color, no pallor or jaundice. RUE fistula site with punctate high volume hemorrhage, controlled w/ direct pressure
Neuro: AO x3, moves all extremities freely
Psych: Calm, cooperative
Nursing notes reviewed and vital signs reviewed.
PLAN
1. Hemostasis at the fistula site with hemistatic dressing and direct pressure.
2. Reevaluate the bleeding site in 20-30 minutes.
3. Initiate blood work.
4. Administer intravenous medications to lower blood pressure.
DIFFERENTIAL DIAGNOSIS
The Differential Diagnosis includes, in no particular order and is not limited to:
1. Hypertensive crisis.
2. Hemorrhage due to anticoagulation.
3. Arteriovenous fistula malfunction.
CARE-UPDATE
05/02/25 - 23:02
The patient remains stable with no recent exacerbations in their medical conditions. No changes to current medication regimen were discussed, and the patient continues with regular dialysis sessions. Regular monitoring of coagulation status due to
concurrent use of Plavix and Eliquis was reinforced. Attention to blood sugar levels and management of chronic pain continue to be priorities.
Disposition:
DIAGNOSIS
- Hypertensive urgency (ICD-10: I16.0)
- Bleeding AV fistula
- Leukocytosis
SUMMARY OF ENCOUNTER
The patient, a 69-year-old male with end-stage renal disease, presented to the emergency department due to bleeding from his arteriovenous fistula site. This bleeding incident was likely exacerbated by a hypertensive crisis. The patient had been
experiencing elevated blood pressure over recent days, despite being on antihypertensive medication. Upon arrival to the ED, he received multiple doses of intravenous antihypertensives, which had only marginal success in improving his blood
pressure. The bleeding from the fistula was initially managed with direct pressure and a collagen hemostatic dressing.
ASSESSMENT
The bleeding at the fistula site appears to be linked to a hypertensive urgency, potentially aggravated by the patients current anticoagulation therapy with Plavix and Eliquis. An underlying infectious process is also considered given the noted
tachycardia and leukocytosis, although the patient remains afebrile.
EMERGENCY TREATMENTS ADMINISTERED
- Intravenous antihypertensives
PLAN
1. Hemostasis at the fistula site was achieved with a hemostatic dressing and direct pressure.
2. Initiate blood work, including cultures and lactate levels, to investigate potential infection.
3. Monitor and manage blood pressure with continued antihypertensive therapy.
4. Hold off on empiric antibiotics until further assessment and workup are complete.
INDEPENDENT INTERPRETATION OF TESTS
- My independent interpretation of the CBC is significant leukocytosis, indicating a possible infection.
- My independent interpretation of tachycardia is that it may be secondary to an underlying infectious process or discomfort from acute on chronic back pain and constipation.
PROCEDURES
- Direct pressure application and use of a collagen hemostatic dressing at the fistula site.
FOLLOW-UP INSTRUCTIONS
- Regular monitoring of blood pressure and reassessment of fistula site.
- Further infectious workup and hypertension management to be continued during hospitalization.
MEDICATION RECONCILIATION
- Continued use of prescribed antihypertensive medications.
- Ongoing management with Plavix and Eliquis, monitoring for potential complications related to anticoagulation therapy.
MEDICAL DECISION MAKING
Number and Complexity of Problems Addressed:
The patient presented with acute bleeding from the fistula site related to hypertensive urgency, compounded by chronic end-stage renal disease and related complications such as potential infection and acute pain management needs.
Data:
Laboratory tests revealed significant leukocytosis, and blood pressure management necessitated intravenous intervention. The need for further infectious workup underscores the complexity of the presentation.
Risk:
The management plan included high-risk considerations such as the need for potential hospitalization for blood pressure management and infectious workup, alongside the continuing use of anticoagulation therapy which required careful monitoring.
Past History
Past History
ED Past Medical History: Arrthythmia (PAF), CAD, Cancer (CML), COPD, CVA, HTN, Hypercholesterolemia, NIDDM, [place], Renal failure (on dialysis), Other (Peripheral artery disease, left femoropopliteal bypass), Other (subdural hematoma) and Other (R foot
ulcer; FINESSE; obesity)
ED Past Surgical History: Cardiac (left fempop bypass) and Other (L femoral endarterectomy, popliteal angioplasty, dialysis graft left upper arm)
Social History
Tobacco: Smoker
Alcohol: None
Drug: Marijuana
Personal:
Living: with family
Employment: Disabled
Family History
Family History: Diabetes and Other (reviewed and non-contributory)
Phy Exam
Physical Exam
Physical Exam:
.
Course
Orders/Labs/Results
Orders:
Orders
05/02/25 22:56
HydrALAZINE [Apresoline] 10 mg IV NOW STA
Oxycodone [Roxicodone] 5 mg PO NOW STA
05/02/25 23:09
CMP [Comprehensive Metabolic Panel] Urgent
Complete Blood Count/With Diff Urgent
05/02/25 23:24
HydrALAZINE [Apresoline] 10 mg IV NOW STA
05/02/25 23:37
Lactic Acid Urgent
Blood Culture Q30M
PETRA Source: Blood/Venous
Specimen Description:
05/03/25 00:00
Blood Culture Q30M
PETRA Source: Blood/Venous
Specimen Description:
05/03/25 00:03
Urinalysis Reflex To Culture Urgent
Date Specimen was Collected: 05/03/25
Time Specimen was Collected: 00:04
CR Chest - 2 Views Urgent
Comment:
Reason For Exam: leukocytosis
05/03/25 00:04
Labetalol HCl [Trandate] 10 mg IV NOW STA
Abnormal Lab Results
05/02/25
23:09
WBC 29.1 H 10^3/uL
(4.8-10.8)
RBC 3.51 L 10^6/uL
(4.70-6.10)
Hgb 11.3 L g/dL
(13.0-18.0)
Hct 33.2 L %
(39.0-52.0)
MCV 94.6 H fL
(80.0-94.0)
MCH 32.2 H pg
(27.0-31.0)
Plt Count 412 H 10^3/uL
(130-400)
Potassium 5.3 H mmol/L
(3.5-5.1)
Chloride 97 L mmol/L
(98-107)
BUN 67 H mg/dl
(9-20)
Creatinine 8.6 H* mg/dL
(0.7-1.3)
Glucose 165 H mg/dl
(70-99)
Calcium 10.3 H mg/dl
(8.4-10.2)
Alkaline Phosphatase 157 H U/L
(38-126)
05/02/25 23:09
05/02/25 23:09
Vital Signs
Initial and Last Documented VS:
Initial Vital Signs
Temp Pulse Resp BP Pulse Ox
98.3 F 98 18 219/99 98
05/02/25 22:16 05/02/25 22:16 05/02/25 22:16 05/02/25 22:16 05/02/25 22:16
Last Documented Vital Signs
Temp Pulse Resp BP Pulse Ox
98.3 F 116 21 221/90 97
05/02/25 22:16 05/03/25 00:11 05/03/25 00:09 05/03/25 00:11 05/03/25 00:00
*Critical Care Note
Total Time (30-74mins, 75-104mins- exclusive of procedures): Not Applicable
ED Attending Note
-
Portions of this chart may have been created with voice recognition software.� Occasional wrong word or��sound alike� substitutions may have occurred due to the inherent limitations of voice recognition software.
Discharge Plan
Departure
Patient Disposition: Admit
Date of Disposition: 05/03/25
Time of Disposition: 00:06
Admit to: IMU
Presentation/result/management discussed w/ accepting MD/DO: Hospitalist
Discharge Problem:
Hypertensive urgency, Hemorrhage of arteriovenous fistula, Leukocytosis
Prescriptions:
No Action
melatonin 5 MG tablet
5 mg PO HSPRN PRN (Reason: sleep)
atorvastatin 80 MG tablet
80 mg PO HS
sertraline 100 mg Tablet
100 mg PO BID
clopidogrel [Plavix] 75 mg Tablet
75 mg PO DAILY
Nephro-Michelle 0.8 mg Tablet
1 tab PO MOWEFR
coQ10 (ubiquinol) 200 mg Capsule
200 mg PO DAILY
Ozempic 0.25 mg or 0.5 mg (2 mg/3 mL) Pen Injector
0.25 mg SC GRIMM
Eliquis 5 mg Tablet
5 mg PO BID Qty: 60 0RF
amlodipine 2.5 mg Tablet
2.5 mg PO BID Qty: 60 2RF
acetaminophen 325 mg Tablet
650 mg PO Q4HPRN PRN (Reason: mild pain/fever >100)
albuterol sulfate 90 mcg/actuation Hfa Aerosol Inhaler
2 puff INHALATION R Q4HPRN PRN (Reason: sob)
methylphenidate HCl 10 mg tablet
30 mg PO DAILY
metoprolol succinate 25 mg tablet extended release 24 hr
12.5 mg PO DAILY
ascorbic acid (vitamin C) [Vitamin C] 500 mg Tablet
500 mg PO DAILY
ezetimibe [Zetia] 10 mg Tablet
10 mg PO DAILY Qty: 0 0RF
loperamide 2 mg Tablet
2 mg PO TIDPRN PRN (Reason: dairrhea)
aripiprazole [Abilify] 2 mg Tablet
2 mg PO DAILY
Xphozah 30 mg Tablet
30 mg PO BID
Rx Instructions:
administer immediately before first and last meals of day
calcium acetate
667 mg PO TIDWMEAL
polyethylene glycol 3350 17 gram Powder In Packet
17 g PO DAILYPRN PRN (Reason: constipation) Qty: 0 0RF
midodrine 5 mg Tablet
5 mg PO Q4HPRN PRN (Reason: SBP<100) Qty: 0 0RF
lorazepam 1 mg tablet
1 mg PO BIDPRN PRN (Reason: Anxiety) Qty: 5 0RF
oxycodone 5 mg Tablet
5 mg PO BIDPRN PRN (Reason: severe pain) Qty: 5 0RF
Referrals:
UNKNOWN - PT DOES,NOT KNOW [Family Provider]
Interventions
Interventions:
*Risk Screen - Suicide Last Done: 05/02/25 22:16
*General Assessment Last Done: 05/02/25 22:16
*Neglect/Abuse Screening Last Done: 05/02/25 22:16
*ED- Fall Risk Assessment Last Done: 05/02/25 22:16
*ED COVID-19 Vaccine History Last Done: 05/02/25 22:24
ED-Skin Assessment Last Done: 05/02/25 23:15
Discharge Date and Time
Print Language: AZERI
[2025-05-02] MEDS: ROXICODONE 5 MG PO (23:01)
[2025-05-02] MEDS: APRESOLINE 10 MG IV ×2 (23:01→23:35)
[2025-05-02 23:20] LABS: Hematocrit 33.2 % (39.0-52.0); Hemoglobin 11.3 g/dL (13.0-18.0); Mean Corpuscular Hgb 32.2 pg (27.0-31.0); Mean Corpuscular Volume 94.6 fL (80.0-94.0); Mean Platelet Volume 10.2 fL (7.4-10.4); Platelet Count 412 10^3/uL (130-400); Red Blood Cell Count 3.51 10^6/uL (4.70-6.10); White Blood Cell Count 29.1 10^3/uL (4.8-10.8)
[2025-05-02 23:33] LABS: ALT (SGPT) < 10 U/L (0-50); AST (SGOT) 21 U/L (17-59); Albumin 4.2 g/dl (3.5-5.0); Alkaline Phosphatase 157 U/L (38-126); Blood Urea Nitrogen 67 mg/dl (9-20); Calcium 10.3 mg/dl (8.4-10.2); Carbon Dioxide 25 mmol/L (22-30); Chloride 97 mmol/L (98-107); Estimated Creatinine Clearance 9 ml/min; Glucose 165 mg/dl (70-99); Potassium 5.3 mmol/L (3.5-5.1); Sodium 137 mmol/L (135-145); Total Bilirubin 0.6 mg/dl (0.2-1.3); Total Protein 7.5 g/dl (6.3-8.2)
[2025-05-03] VITALS (15 sets, daily range): BP systolic 60–221; BP diastolic 31–119; BMI 29.4; BMI 29.5
[2025-05-03 00:03] LABS: Lactic Acid 0.7 mmol/L (0.7-2.0)
[2025-05-03] MEDS: TRANDATE 10 MG IV ×2 (00:11→06:28)
--- NOTE | 2025-05-03 00:12 | HPS.HSE ---
Family Physician
-
Family Physician: NOT KNOW UNKNOWN - PT DOES
Chief Complaint
-
Bleeding from fistula site
History of Present Illness
This is a 69-year-old male with past medical history of end-stage renal disease on hemodialysis Saturday via a right upper extremity AV fistula, proximal atrial fibrillation on Eliquis, hypertension only on Norvasc, ADHD with
depression and anxiety, CAD status post CABG, status post stents and October 2024 on Plavix presenting to the emergency department with bleeding from the left upper extremity AV fistula.
Patient last had dialysis on Saturday. Denied any issues at dialysis. Of note the patient had a recent angioplasty for that AV fistula. Since then it has been apparently functioning normally. He reported that there was no issue on Saturday.
However this evening he had significant bleeding from the site. He denies any injury. He denies any trauma. He is on Eliquis and Plavix and he was given Eliquis and Plavix this morning. Eliquis was held this evening. On arrival in the emergency
department they noted extensive blood soaked gauze on the site with removal of that gauze there was a punctate sprain of blood. Pressure was applied then collagen dressing was applied. After about 45 minutes there was no further bleeding and dry
dressing was applied on top of that after his BP came down. While in the emergency department was noted to have significantly elevated blood pressures.
Patient also reports recent history of constipation. He is on oxycodone for pain and reports that he has not a bowel movement in at least 1 week possibly 2. Reports he is passing gas. Reports nausea but denies any vomiting. Reports abdominal
pain discomfort and decreased p.o. intake. He denies any fevers or chills. Also reports back pain which has been ongoing for weeks.
In the emergency department at the time I saw him his blood pressure was 186/80 after receiving hydralazine and IV labetalol. His pulse was 100. He was satting 97% on room air.
He has a white count of 29 with otherwise normal hemoglobin and platelet count. His electrolytes were stable with a potassium of 5.3 and a bicarb of 25. BUN and creatinine consistent with ESRD on hemodialysis.
Medical History
Past Medical History
Past Medical History: Reports Other ( Arrthythmia (PAF), CAD, Cancer (CML), COPD, CVA, HTN, Hypercholesterolemia, NIDDM, [place], Renal failure (on dialysis), Other (Peripheral artery disease, left femoropopliteal bypass), Other (subdural hematoma) and
Other (R foot ulcer; FINESSE; obesity))
Past Surgical History: Reports Other (Cardiac (left fempop bypass) and Other (L femoral endarterectomy, popliteal angioplasty, dialysis graft left upper arm))
Social History
Tobacco: Smoker
Alcohol: None
Drug: Marijuana
Living: With Family
Employment: Disabled
Family History
Family History: Other (Diabetes)
Allergies / Home Medications
Allergies reflects when Allergies were last updated in [employer].
Home Medications with original date entered in [employer]
Allergy/Medication List:
Allergies
Allergy/AdvReac Type Severity Reaction Status Date / Time
Iodinated Contrast Media Allergy Nausea / Verified 05/02/25 22:24
Vomiting,
'panic
attack'
latex Allergy Itching Verified 05/02/25 22:24
morphine Allergy Itching Verified 05/02/25 22:24
Home Medications
melatonin 5 mg tablet 5 mg PO HSPRN PRN sleep 04/06/19
atorvastatin 80 mg tablet 80 mg PO HS High cholesterol 01/25/21
clopidogrel 75 mg tablet (Plavix) 75 mg PO DAILY Blood Clot Prevention/Tx 02/19/24
coQ10 (ubiquinol) 200 mg capsule 200 mg PO DAILY Supplement 02/19/24
semaglutide 0.25 mg or 0.5 mg (2 mg/3 mL) subcutaneous pen injector (Ozempic) 0.25 mg SC GRIMM Diabetes 02/19/24
sertraline 100 mg tablet 100 mg PO BID Mental Health 02/19/24
vitamin B complex-vitamin C-folic acid 0.8 mg tablet (Nephro-Michelle) 1 tab PO MOWEFR Supplement 02/19/24
amlodipine 2.5 mg tablet 2.5 mg PO BID #60 tabs 02/28/24
apixaban 5 mg tablet (Eliquis) 5 mg PO BID #60 tabs 02/28/24
acetaminophen 325 mg tablet 650 mg PO Q4HPRN PRN mild pain/fever >100 05/25/24
albuterol sulfate 90 mcg/actuation aerosol inhaler 2 puff inhalation R Q4HPRN PRN sob 05/25/24
methylphenidate HCl 10 mg tablet 30 mg PO DAILY ADHD 07/07/24
metoprolol succinate 25 mg tablet,extended release 24 hr 12.5 mg PO DAILY Heart Disease/Condition 09/23/24
ascorbic acid (vitamin C) 500 mg tablet (Vitamin C) 500 mg PO DAILY Supplement 11/03/24
ezetimibe 10 mg tablet (Zetia) 10 mg PO DAILY High Cholesterol #0 tabs 11/04/24
aripiprazole 2 mg tablet (Abilify) 2 mg PO DAILY Mental Health/Anxiety 03/15/25
Held on 04/19/25. Instructions: Hold till follow up with PCP
loperamide 2 mg tablet 2 mg PO TIDPRN PRN diarrhea 03/15/25
calcium acetate 667 mg PO TIDWMEAL 04/14/25
midodrine 5 mg tablet 5 mg PO Q4HPRN PRN SBP<100 #0 tabs 04/19/25
polyethylene glycol 3350 17 gram oral powder packet 17 g PO DAILYPRN PRN constipation #0 ea 04/19/25
Enema Disposable 1 enema RI DAILY 05/03/25
bisacodyl 10 mg rectal suppository (Dulcolax (bisacodyl)) 10 mg RI DAILY PRN constipation 05/03/25
docusate sodium 100 mg capsule (Colace) 100 mg PO BID 05/03/25
famotidine 10 mg tablet 10 mg PO DAILY nausea 05/03/25
lorazepam 1 mg tablet 1 mg PO DAILY 05/03/25
magnesium hydroxide 400 mg/5 mL oral suspension (Milk of Magnesia) 400 mg PO DAILY PRN constipation 05/03/25
mupirocin 2 % topical ointment 1 applic topical DAILY 05/03/25
oxycodone 5 mg tablet 5 mg PO QIDPRN PRN back pain 05/03/25
sennosides 8.6 mg tablet (senna) 17.2 mg PO HS Constipation 05/03/25
Review of Systems
-
Constitutional: Reports No Symptoms
EENT: Reports No Symptoms
Respiratory: Reports No Symptoms
Cardiac: Reports No Symptoms
Abdomen/GI: Reports Abdominal Pain and Constipated
: Reports No Symptoms
Musculoskeletal: Reports Other (Back pain)
Skin: Reports No Symptoms
Neurological: Reports No Symptoms
Endocrine: Reports No Symptoms
Hematologic/Lymphatic: Reports Bleeding (From AV fistula site)
Psych: Reports No Symptoms
Physical Exam
Vital Signs
Vital Signs
Temp Pulse Resp BP Pulse Ox
98.3 F 108 21 186/84 97
05/02/25 22:16 05/03/25 00:00 05/03/25 00:09 05/02/25 23:50 05/03/25 00:00
Physical Exam
General: Conversant, Appears Chronically Ill and Other
HEENT: NormoCephalic, Moist mucous membranes and Atraumatic
Respiratory: Clear
Cardiac: S1/S2 and Tachycardia; No Murmur or Rub
GI: Soft, Non Tender, Non Distended and Normal Bowel Sounds; No Organomegaly
Rectal: Deferred by Provider
Genito-urinary: Deferred by me
Musculoskeletal: No Clubbing, No Cyanosis and No Edema
Skin: No Rash
Neuro: AO x 3, No Motor Deficits and Nonfocal/grossly intact
Hematologic/Lymphatic: No Lymphadenopathy
Laboratory Results
-
05/02/25 23:09
05/02/25 23:09
Laboratory Results
Lactic Acid 0.7 mmol/L (0.7-2.0) 05/02/25 23:37
Total Bilirubin 0.6 mg/dl (0.2-1.3) 05/02/25 23:09
AST 21 U/L (17-59) 05/02/25 23:09
ALT < 10 U/L (0-50) 05/02/25 23:09
Alkaline Phosphatase 157 U/L (38-126) H 05/02/25 23:09
Data Reviewed
-
Lab Data: Labs Reviewed by me
Old Records: Reviewed
Impression/Plan
-
IMPRESSION:
69-year-old with end-stage renal disease on hemodialysis Saturday, proximal atrial fibrillation on Eliquis and history of CAD status post CABG and stenting who is on Plavix presented to the emergency department after having bleeding
from the left lower extremity AV fistula. Hemostasis achieved in the ED while in the ED patient noted to be markedly hypertensive. He also was noted to have leukocytosis of unexplained origin with a white count of 29. His labs otherwise
unremarkable. Patient reports severe constipation with the lack of bowel movements times at least 1 week. On examination and noticed normal sensation in the upper extremities bilaterally. The abdomen was soft and mildly distended without any
guarding or rebound. Minimal tenderness to palpation but localized to the left lower quadrant.
PLAN:
1. Uncontrolled HTN - ESRD, on amlodipine. No edema at this time. Suspect chronic uncontrolled HTN exacerbated by pain
- admit to telemetry
- continue labetolol 10mg iv prn
- continue norvasc, increased to 10
- will consider clonidine if uncontrolled
- pain control
- HD in am
2. Bleeding fistula - Likely on account of AC and antiplatelet therapy. No trauma. Recent issue with prolonged bleeding s/p AVF stenting. AV U/S showed 'Patent right upper extremity AV fistula was multiple aneurysmal areas of dilation. Flow
volumes range from 983 mL/m to 1829 mL/min, more than sufficient for achieving adequate hemodialysis. The distal outflow vein may be somewhat compressed by adjacent aneurysmal area.
'. Last dose of apixaban yesterday morning.
- applied pressure dressing
- holding eliquis
- holding plavix
- BP control
- vascular surgery consulted, will come in for stitching if hemostasis not achieved
- fistulogram per vascular
- npo for now except meds
3. ESRD - Labs ok. No indication for HD. Needs usual HD in am
- nephrology consult for HD
4. Abdominal discomfort/Constipation - LLQ tenderness to palpation, mild. Constipation. No fevers but leukocytosis. Constipation/obstruction vs diverticulitis
- patient still has residual renal function barring contrast use for now, CT a/p with large stool burden in the more proximal colon but no obvious peritonitis.
- clear liquid diet for now
- mag citrate 1, continue laxatives orally, hold off on enema
- npo otherwise pending evaluation of fistula
5. Leukocytosis - Afebrile. Abdominal discomfort/constipation. Back pain. No urinary symptoms. Concern for possible diverticulitis prompted imaging which showed erosive change involving anterior inferior aspect of L1 vertebrae with mild
thickening/stranding of the paravertebral soft tissues.
- u/a, ucx and blood cultures
- ESR/CRP
- repeat cbc in am
- risk of MRI w/ GLENNA due to concern NSF, will get ID consult on possible further evaluation
- hold abx for now
6. pAFIB
- continue rate control
- hold eliquis
7. DM II
- sliding scale insulin
8. CAD
- holding Plavix,
DVT PPX - SCDs,
Code status - Full Code
[2025-05-03 00:36] LABS: Urine Albumin 3+ (Neg - Trace); Urine Bilirubin Negative (Negative); Urine Character Cloudy (Clear); Urine Color Yellow; Urine Glucose 2+ (Negative); Urine Ketone Negative (Negative); Urine Leukocyte Negative (Negative); Urine Nitrite Negative (Negative); Urine Occult Blood 1+ (Negative); Urine Specific Gravity 1.015 (<1.030); Urine Urobilinogen Negative (Neg - 1+)
[2025-05-03 00:58] LABS: Urine Bacteria Few (Negative); Urine Yeast Moderate (Negative)
[2025-05-03 01:11] LABS: Absolute Neutrophils -Man Diff 22.6 10^3/uL (1.4-6.5); Band Neutrophils 0 % (0-3); Eosinophils 1 % (0-6); Lymphocytes 18 % (20-51); Macrocytosis 2+; Monocytes 3 % (2-9); Normal RBC Morphology No; Platelets Checked Yes; Segmented Neutrophils 78 % (42-75); Total Cells Counted 100
[2025-05-03] MEDS: ZANAFLEX 2 MG PO (01:54)
[2025-05-03] MEDS: CITROMA 300 ML PO (01:54)
[2025-05-03] MEDS: CATAPRES 0.2 MG PO (03:06)
[2025-05-03] MEDS: ATIVAN 1 MG PO (03:06)
--- NOTE | 2025-05-03 03:38 | PTCARENOTE ---
Received pt from ER, alert,oriented tolerated transfer well.Pts physical assessment preformed,pt assists with turning.Right upper arm fistula drsg saturated with blood.Drsg removed,base of fistula incision bleeding,Ultrafoam collagen pads applied
with abd pads and wrapped with lary.Pt reports anxiety,Ativan 1 mg po given.Close observation ongoing.
--- NOTE | 2025-05-03 04:26 | PTCARENOTE ---
Several pressure drsgs to right upper arm fistula,Dr Brennan came to pts room at 4am for arm assessment,drsg removed and number 3 pressure drsg applied,close observation ongoing.
--- NOTE | 2025-05-03 06:01 | PTCARENOTE ---
Right upper arm fistula assessed,drsg dry and intact, + right radial pulse.Pt denies distress at site.Close observation ongoing.
--- NOTE | 2025-05-03 07:47 | W.PN.HOSP.TC ---
Today's Communication/Plan
-
;/
Assessment / Plan
Assessment / Plan
Assessment/plan
#Leukocytosis-afebrile
#Lower back pain and spasm
-Etiology likely discitis versus vertebral osteomyelitis
-ESR/CRP elevated
-CT abdomen- There are endplate irregularities with mild surrounding paraspinal soft tissue thickening/stranding at the L1-L2 intervertebral disc space which is concerning for discitis/osteomyelitis.
-Urinalysis negative
-Blood cultures pending
-Per nephro, blood cultures drawn on dialysis this past week positive for gram-positive cocci in pairs noted to be Enterococcus faecalis
-ID consulted, input appreciated
-Started on empiric ampicillin
-MRI of L-spine with and without contrast given findings on CT abdomen
#Prolonged bleeding at AV fistula
-Increased bleeding episode after hemodialysis
-Likely in the setting of anticoagulation and antiplatelet therapy
-AV U/S showed 'Patent right upper extremity AV fistula was multiple aneurysmal areas of dilation. Flow volumes range from 983 mL/m to 1829 mL/min, more than sufficient for achieving adequate hemodialysis. The distal outflow vein may be somewhat
compressed by adjacent aneurysmal area'.
-Vascular consulted, input appreciated. 'Fistula on exam is patent but pulsatile'
-For fistulogram after medical optimization.
#End-stage renal disease on HD
-Nephrology consulted, input appreciated
-For HD today
#Uncontrolled hypertension in the setting of ESRD
-Labetalol 10 mg IV as needed
-Continue home Norvasc
-Optimal pain control of lower back as may be contributing to elevated blood pressure readings
-Monitor BP
#Abdominal discomfort secondary to constipation
-CXR abdomen�nonobstructive bowel gas pattern. Moderate colonic stool burden
-Laxatives
#Paroxysmal atrial fibrillation
-Currently in NSR
-Anticoagulation with Eliquis, restart
#T2DM
-Coverage with SSIs
-A1C 4.9 03/16/2025
#CAD
-On Plavix, currently on hold
CODE STATUS; full code
DVT PPX - SCDs,
Anticipated Discharge: > 48 hours
Subjective/Interval History
-
Date of Service: May 03, 2025
Objective Data
-
Labs:
Laboratory Results
05/02/25 05/03/25
23:09 07:46
WBC 29.1 H Pending
Hgb 11.3 L Pending
Hct 33.2 L Pending
Plt Count 412 H Pending
PT Pending
INR Pending
Sodium 137 Pending
Potassium 5.3 H Pending
Chloride 97 L Pending
Carbon Dioxide 25 Pending
BUN 67 H Pending
Creatinine 8.6 H* Pending
Glucose 165 H Pending
Calcium 10.3 H Pending
Total Bilirubin 0.6
AST 21
ALT < 10
Alkaline Phosphatase 157 H
Vital Signs:
Vital Signs
Temp Pulse Resp BP Pulse Ox
97.9 F 80 20 210/109 97
05/03/25 02:24 05/03/25 06:28 05/03/25 02:24 05/03/25 06:28 05/03/25 03:18
I&O
05/02/25 05/03/25 05/04/25
06:59 06:59 06:59
Intake Total 60 / 60
Balance 60 / 60
Review of Systems
-
All other systems: Reviewed and negative (Except as documented)
Physical Exam
-
General: No Apparent Distress
Respiratory: Clear to Auscultation; Negative Wheezes or Rales
Cardiac: Regular Rhythm and S1/S2
GI: Soft, Nondistended and Tender (Lower abdominal tenderness)
Musculoskeletal: Other (Moderate tenderness to palpation of lower back, spinal area)
Psych: Calm
[2025-05-03 07:53] LABS: Glucose - Point of Care 196 mg/dl (70-99)
[2025-05-03] MEDS: TOPROL XL 12.5 MG PO (07:53)
[2025-05-03] MEDS: ZETIA 10 MG PO (07:55)
[2025-05-03] MEDS: ZOLOFT 100 MG PO (07:55)
[2025-05-03] MEDS: NORVASC 5 MG PO (07:56)
[2025-05-03] MEDS: RITALIN 30 MG PO (07:56)
[2025-05-03] MEDS: COLACE 100 MG PO (07:56)
[2025-05-03] MEDS: NEPHROCAP 1 CAPSULE PO (08:00)
[2025-05-03 08:10] LABS: Hematocrit 28.8 % (39.0-52.0); Hemoglobin 10.1 g/dL (13.0-18.0); Mean Corp Hgb Conc. 35.1 g/dL (33.0-37.0); Mean Corpuscular Hgb 33.1 pg (27.0-31.0); Mean Corpuscular Volume 94.4 fL (80.0-94.0); Mean Platelet Volume 10.2 fL (7.4-10.4); Platelet Count 406 10^3/uL (130-400); Red Blood Cell Count 3.05 10^6/uL (4.70-6.10); Red Cell Dist. Width 13.9 % (11.5-14.5); White Blood Cell Count 32.2 10^3/uL (4.8-10.8)
[2025-05-03 08:13] LABS: INR 1.35; PT 16.9 Sec (11.4-14.6)
[2025-05-03] MEDS: NOVOLOG FLEXPEN-LOW RESISTANCE 1 UNITS SC ×3 (08:18→18:17)
[2025-05-03] MEDS: ROXICODONE 5 MG PO (08:22)
[2025-05-03] MEDS: MIRALAX 17 GRAMS PO (08:22)
--- NOTE | 2025-05-03 08:24 | CON.ID ---
Consultation
-
Date/Time Consultation Requested: 05/03/2025221
Date/Time Consultation Performed: 05/03/2025 0815
Requesting Provider: Dr. Brennan
Performing Provider: Dr. Mcneil
Reason for Consultation: Leukocytosis, back pain
Chief Complaint / Past History
History of Present Illness
Paramjit Banuelos is a 69-year-old man with a significant past medical history of ESRD�HD and PAD being evaluated regarding cytosis and back pain. History is obtained from chart review, along with patient interview.
The patient underwent dialysis last week, and reported no issues at that time. The next day he had significant bleeding from his AV graft site. He denied any trauma to the area. When he presented to the ER, the arm was noted to have extensive
blood soaked gauze. After 45 minutes of pressure, no further bleeding was noted.
The patient also reported recent constipation, and noted no bowel movements for the past week. To the ER, he admitted to nausea, but no vomiting. Admitted to abdominal discomfort and decreased oral intake, and he has also been complaining of back
pain which has been present for several weeks.
Workup in the ER revealed marked leukocytosis. Infectious Diseases is asked to comment upon further workup.
The patient reports that he has not had a bowel movement in approximately 1 to 2 weeks. He denies any fevers or chills. He denied any nausea or vomiting to me. He notes abdominal discomfort and distention. He reports that he had a previous
history of back surgery approximately 10 years ago. He recalls falling twice on his prior admission here to [facility]. He notes 'soreness' in the back for several weeks, but notes back spasms for the past 24 hours.
Past History
Additional Past Medical History:
pA-fib
CML
COPD
Hx CVA
HTN
HLD
DM type II
CAD; Hx [place]
ESRD�HD
Obesity
Additional Past Surgical History:
Left femoropopliteal bypass
Left femoral endarterectomy
LUE HD graft
Allergy History:
Iodinated Contrast Media Allergy (Verified 05/02/25 22:24)
Nausea / Vomiting, 'panic attack'
latex Allergy (Verified 05/02/25 22:24)
Itching
morphine Allergy (Verified 05/02/25 22:24)
Itching
Medications Reviewed: Yes
Current Antibiotics:
None
Social History
Tobacco: Smoker
Alcohol: None
Drug: Marijuana
Personal:
Living: With Family
Employment: Retired
Family History
Family History: Not Pertinent
Review of Systems
Vital Signs
Temp Pulse Resp BP Pulse Ox
98.4 F 61 16 181/116 98
05/03/25 07:55 05/03/25 07:56 05/03/25 07:55 05/03/25 07:56 05/03/25 07:55
Physical Exam
Physical Exam
Constitutional: No Acute Distress, Comfortable, Chronically Ill and Non-toxic
Eyes: No Conjunctival Hemorrhage and Sclera Anicteric
Oral: No Thrush and No Ulcers
Lymph Nodes: Negative Lymphadenopathy
Cardiovascular: S1/S2; Negative S3/S4
Pulmonary: Clear; Negative Wheezes or Rales
Gastrointestinal: Soft and Non Tender
Genito-Urinary: Negative Luther or CVA Tenderness
Musculoskeletal: Spinal Tenderness (Lumbar area, both spinal and paraspinal areas)
Skin: Warm and Dry; Negative Rash or Jaundice
Neurological: Awake, Alert and Oriented
Psychological: Calm
Lab / Diagnostic Study Results
05/03/25 07:46
Total Counted 100 05/02/25 23:09
Abs Neuts (Manual) 22.6 10^3/uL (1.4-6.5) H 05/02/25 23:09
Segmented Neutrophils 78 % (42-75) H 05/02/25 23:09
Band Neutrophils 0 % (0-3) 05/02/25 23:09
Lymphocytes (Manual) 18 % (20-51) L 05/02/25 23:09
Eosinophils (Manual) 1 % (0-6) 05/02/25 23:09
PT 16.9 Sec (11.4-14.6) H 05/03/25 07:46
INR 1.35 05/03/25 07:46
Lactic Acid 0.7 mmol/L (0.7-2.0) 05/02/25 23:37
Ur Squamous Epith Cells 3-5 /LPF (Few) 05/03/25 00:14
Microbiology Results
Micro:
05/03/25 06:19 MRSA Screen - Pending
Nose
05/03/25 00:14 Blood Culture - Pending
Blood/Venous
05/02/25 23:37 Blood Culture - Pending
Blood/Venous
Imaging:
05/03/2025 CT abdomen/pelvis without contrast: Moderate colonic stool burden without evidence of obstruction. Prior L1-L5 posterior spinal fusion noted. There are endplate irregularities with mild surrounding paraspinal soft tissue
thickening/stranding at the L1-L2 intervertebral space which is concerning for discitis or osteomyelitis. A dedicated MRI with and without contrast may be considered as clinically indicated.
Assessment / Plan
Leukocytosis
Low back pain; ?discitis ?vertebral osteomyelitis
Bacteremia with E. faecalis
Constipation / obstipation
Elevated ESR
Elevated CRP
pA-fib
CML
COPD
Hx CVA
HTN
HLD
DM type II
CAD; Hx [place]
ESRD�HD
Obesity
Recommendations:
Blood cultures currently pending, although case discussed with Nephrology, and outpatient blood cultures from 04/28/25 positive for E faecalis. Will attempt to obtain hard copies of outpatient cultures
Will order MRI of the L-spine with/without contrast.
Will order additional blood cultures now, and begin empiric ampicillin after blood cultures obtained.
Follow white count and temperature curve.
Management of obstipation per primary service.
Further recommendations as additional data is returned.
Care Review
Plan reviewed with: Nurse and Physician (Nephrology)
.

Total time spent today was 80 minutes, which includes preparation for the visit, including review of pre-visit forms and results, patient interview and examination, reviewing pertinent studies, including laboratory results, microbiology results,
radiology studies, hospital records, specialist consultation, along with patient/caregiver counseling, documentation of clinical information and coordination of care with other healthcare professionals.
[2025-05-03 08:57] LABS: Blood Urea Nitrogen 76 mg/dl (9-20); Calcium 10.2 mg/dl (8.4-10.2); Carbon Dioxide 24 mmol/L (22-30); Chloride 97 mmol/L (98-107); Estimated Creatinine Clearance 8 ml/min; Glucose 177 mg/dl (70-99); Magnesium 2.5 mg/dl (1.6-2.3); Potassium 5.8 mmol/L (3.5-5.1); Sodium 135 mmol/L (135-145); eGFR 6.03
--- NOTE | 2025-05-03 09:03 | CON.VAS ---
Addendum entered and electronically signed by Fantasma Atkinson MD 05/03/25 10:09:
Seen and examined with MAYELA Osei. History as noted below. Agree with findings. Known to service well status post multiple AV access procedures. Increased bleeding after hemodialysis. Fistula on exam is patent but pulsatile. Discussed with him
that likely will need fistulogram. However he has other issues going on with severe back pain currently. Also has elevated white blood cell count of 30,000. Fistulogram is not emergent. Would recommend resolution of these medical issues and
medical optimization prior to proceeding with fistulogram.
Original Note:
Medical History
-
History of Present Illness:
This is a 69-year-old male with significant past medical history for peripheral arterial disease, COPD, diabetes, ESRD, CAD, CHF, TIA, hypertension, paroxysmal atrial fibrillation, and [place] who presents to [facility] on 05/02[facility]25 with reports of
spontaneous bleeding from AVF site. He does note that he was concerned about his high blood pressure and even took an extra dose of his home antihypertensive amlodipine. He also reports complaint of lower back pain and abdominal pain with absence
of bowel movement over the past 1 to 2 weeks. In the ER he also had significant leukocytosis prompting admission for all above concerns. He does endorse that he had a successful HD session this past Saturday with no issues, he has been in a rehab
facility over the past 2 weeks to increase his lower extremity strength. He has a history of prolonged bleeding due to venous outflow stenosis at fistula, please see vascular surgical intervention below. His current concern is worsening lower back
pain.
Vascular surgical history below:
05/10/2016- Right lower extremity arteriogram, right superficial femoral artery and popliteal artery angioplasty and stent using a 6 x 100 Zilver PTX and a 6 x [address] Olvin Willams
10/27/2018- Left lower extremity arteriogram, angioplasty of the left SFA and popliteal artery with a [address] Olvin Willams
04/11/2019- Left femoral endarterectomy (common femoral, SFA, origin of profunda femoris artery). Left femoral to above knee popliteal artery bypass with 8 mm ring Propaten graft with Dr. Fantasma Atkinson
09/13/2023- Creation of left upper arm AV graft for hemodialysis Dr. Paul Luther III
11/14/2023- Left upper extremity fistulogram and central venogram Dr. Fantasma Atkinson
02/27/2024- Left upper extremity fistulogram and central venogram, balloon angioplasty and stent placement of venous anastomotic/central venous stenosis with 10 mm x 4 cm Cook 635 stent, balloon angioplasty and stent placement with covered [place]
Viabahn 8 mm x 5 cm stent with an AV graft Dr. Fantasma Atkinson
07/30/2024- Left upper extremity fistulogram and central venogram, balloon angioplasty of central venous stenosis with [address] Fantasma Atkinson
09/24/2024- Right upper extremity brachiobasilic arteriovenous fistula creation with single stage basilic vein transposition, ligation of left upper extremity AV graft Dr. Fantasma Atkinson
01/25/2025- Balloon angioplasty of right basilic vein outflow stenosis (7 mm x 80 mm Lutonix drug-coated balloon), Balloon angioplasty and stenting of right axillary vein stenosis (8 mm x 5 cm Viabahn stent graft)
03/17/2025- Duplex assisted cannulation of right upper extremity arteriovenous fistula, balloon angioplasty of long segment outflow vein stenosis with 7 mm and 8 mm angioplasty balloon, balloon angioplasty of recalcitrant segment of vein stenosis
with 6 mm high-pressure angioplasty balloon, 6 mm cutting balloon as well, placement of atrium iCAST 7 mm x 22 mm covered stent recalcitrant severe outflow vein stenosis, central venogram Dr. Fantasma Atkinson
Past Medical History
Past Medical History: Other (Right bundle branch block, paroxysmal atrial fibrillation), CAD (CABG �3 2009), CHF, HTN, NIDDM, Renal Failure (ESRD (MWF HD schedule)) and Other (Strep bacteremia, anemia, hyperparathyroidism, obstructive sleep apnea,
peripheral arterial disease, CML, TIA, frontal subdural hematoma 2018 )
Past Surgical History: Cardiac (CABG, PCI) and Orthopedic (Laminectomy, right total knee replacement, left total knee resident)
Social History
Tobacco: Former Smoker
Personal:
Living: With Family
Allergies / Home Medications
Allergy/AdvReac Type Severity Reaction Status Date / Time
Iodinated Contrast Media Allergy Nausea / Verified 05/02/25 22:24
Vomiting,
'panic
attack'
latex Allergy Itching Verified 05/02/25 22:24
morphine Allergy Itching Verified 05/02/25 22:24
�Medication �Instructions �Recorded �Confirmed �Type
melatonin 5 mg tablet 5 mg PO HSPRN PRN sleep 04/06/19 05/03/25 History
atorvastatin 80 mg tablet 80 mg PO HS High cholesterol 01/25/21 05/03/25 History
clopidogrel 75 mg tablet (Plavix) 75 mg PO DAILY Blood Clot 02/19/24 05/03/25 History
Prevention/Tx
coQ10 (ubiquinol) 200 mg capsule 200 mg PO DAILY Supplement 02/19/24 05/03/25 History
semaglutide 0.25 mg or 0.5 mg (2 0.25 mg SC GRIMM Diabetes 02/19/24 05/03/25 History
mg/3 mL) subcutaneous pen injector
(Ozempic)
sertraline 100 mg tablet 100 mg PO BID Mental Health 02/19/24 05/03/25 History
vitamin B complex-vitamin C-folic 1 tab PO MOWEFR Supplement 02/19/24 05/03/25 History
acid 0.8 mg tablet (Nephro-Michelle)
amlodipine 2.5 mg tablet 2.5 mg PO BID #60 tabs 02/28/24 05/03/25 Rx
apixaban 5 mg tablet (Eliquis) 5 mg PO BID #60 tabs 02/28/24 05/03/25 Rx
acetaminophen 325 mg tablet 650 mg PO Q4HPRN PRN mild 05/25/24 05/03/25 History
pain/fever >100
albuterol sulfate 90 mcg/actuation 2 puff inhalation R Q4HPRN PRN sob 05/25/24 05/03/25 History
aerosol inhaler
methylphenidate HCl 10 mg tablet 30 mg PO DAILY ADHD 07/07/24 05/03/25 History
metoprolol succinate 25 mg 12.5 mg PO DAILY Heart 09/23/24 05/03/25 History
tablet,extended release 24 hr Disease/Condition
ascorbic acid (vitamin C) 500 mg 500 mg PO DAILY Supplement 11/03/24 05/03/25 History
tablet (Vitamin C)
ezetimibe 10 mg tablet (Zetia) 10 mg PO DAILY High Cholesterol #0 11/04/24 05/03/25 Rx
tabs
aripiprazole 2 mg tablet (Abilify) 2 mg PO DAILY Mental Health/Anxiety 03/15/25 05/03/25 History
Held on 04/19/25.
Instructions: Hold till
follow up with PCP
loperamide 2 mg tablet 2 mg PO TIDPRN PRN diarrhea 03/15/25 05/03/25 History
calcium acetate 667 mg PO TIDWMEAL 04/14/25 05/03/25 History
midodrine 5 mg tablet 5 mg PO Q4HPRN PRN SBP<100 #0 tabs 04/19/25 05/03/25 Rx
polyethylene glycol 3350 17 gram 17 g PO DAILYPRN PRN constipation 04/19/25 05/03/25 Rx
oral powder packet #0 ea
Enema Disposable 1 enema HI DAILY 05/03/25 History
bisacodyl 10 mg rectal suppository 10 mg HI DAILY PRN constipation 05/03/25 05/03/25 History
(Dulcolax (bisacodyl))
docusate sodium 100 mg capsule 100 mg PO BID 05/03/25 05/03/25 History
(Colace)
famotidine 10 mg tablet 10 mg PO DAILY nausea 05/03/25 05/03/25 History
lorazepam 1 mg tablet 1 mg PO DAILY 05/03/25 05/03/25 History
magnesium hydroxide 400 mg/5 mL 400 mg PO DAILY PRN constipation 05/03/25 05/03/25 History
oral suspension (Milk of Magnesia)
mupirocin 2 % topical ointment 1 applic topical DAILY 05/03/25 05/03/25 History
oxycodone 5 mg tablet 5 mg PO QIDPRN PRN back pain 05/03/25 05/03/25 History
sennosides 8.6 mg tablet (senna) 17.2 mg PO HS Constipation 05/03/25 05/03/25 History
Review of Systems
-
History Source: Patient
Constitutional: Reports No Symptoms
EENT: Reports No Symptoms
Respiratory: Reports No Symptoms
Cardiac: Reports No Symptoms
Abdomen/GI: Reports Abdominal Pain and Constipated
: Reports No Symptoms
Musculoskeletal: Reports No Symptoms
Skin: Reports Other (bleeding at LUE AVF upon presentation )
Physical Exam
Vital Signs
Temp Pulse Resp BP Pulse Ox
98.4 F 61 16 181/116 98
05/03/25 07:55 05/03/25 07:56 05/03/25 07:55 05/03/25 07:56 05/03/25 07:55
Lab Results
05/03/25 07:46
05/03/25 07:46
Physical Exam
General: No Apparent Distress
HEENT: Normocephalic, Anicteric and Atraumatic
Respiratory: Non Labored Respirations
Cardiac: Negative JVD
Musculoskeletal: No Edema
Skin: Warm and Other (LUE AVF site now with hemostasis, + thrill, left hand warm, motor intact)
Neuro: Awake and Alert
Assessment / Plan
-
Assessment: 69-year-old male with concern of prolonged bleeding at AV fistula suspect repeat venous outflow stenosis
Plan:
Will repeat ultrasound of AV fistula, pending results will determine if patient requires fistulogram. However, he is currently undergoing an infectious disease workup for leukocytosis, timing of surgery depending on identifying possible source of
infection and improvement in lower back pain as currently patient indicates he would not be able to lie flat on the OR table. Final surgical plan per attending.
I performed this shared service with the attending. I evaluated the patient [id number] and have entered clinical documentation as shown in the encounter note. I performed the following component(s):�history and physical exam. Note that medical
decision making is not final until attested by vascular attending.
[2025-05-03 09:10] LABS: Erythrocyte Sed Rate 72 mm/hour (0-20)
--- NOTE | 2025-05-03 09:24 | W.CON.NEPH ---
Consultation
-
Date/Time Consultation Requested: May 03, 2025 7:00 AM
Date/Time Consultation Performed: May 03, 2025 930AM
Requesting Provider: Dr. Gan
Performing Provider: Dr. Anderson
Reason for Consultation: End-stage renal disease
Medical History
-
Chief Complaint: End-stage renal disease
History of Present Illness:
The patient is a 69-year-old male with end-stage renal disease secondary to diabetes who is maintained on a Saturday dialysis schedule at [facility]. He is maintained on insulin therapy for his diabetes with multiple
microvascular complications including diabetic neuropathy. He is maintained on calcium acetate for his hyperphosphatemia and a multidrug regimen for his hypertension. He is chronically anticoagulated with Eliquis for his atrial fibrillation. The
patient was recently hospitalized and discharged on 04/19/2025 when he had reported to the emergency room with mental status changes believed to be due to polypharmacy involving his pain medications for his chronic back pain. He presented to the ""hospital last evening with bleeding from his left upper extremity AV fistula. The fistula did undergo recent PCI. There have been no issues with his dialysis access this past Saturday. He is chronically maintained on Eliquis and Plavix. He was
extremely hypertensive on presentation to the emergency room. The patient recently had blood cultures drawn on dialysis this past week which was positive for gram-positive cocci in pairs noted to be Enterococcus faecalis. We were consulted for his
end-stage renal disease in the setting of his bacteremia uncontrolled hypertension and AV fistula hemorrhaging.
Past Medical History
Stenting of vein graft to obtuse marginal October 24, 2023
Strep bacteremia now off antibiotics
diastolic CHF
ESRD MWF ([facility])
Metabolic acidosis
Hyperkalemia
Anemia, CKD +/- functional iron deficiency
Secondary hyperparathyroidism with hyperphosphatemia
Diabetes mellitus with multiple microvascular complications including profound nephrotic proteinuria
COPD
Obstructive sleep apnea/CPAP
Diabetic polyneuropathy
CAD with CABG �2009
LAD stent 2015
Left SFA and popliteal angioplasty 2017
Left femoral to [id number] popliteal bypass 2018
Right SFA and popliteal angioplasty/stenting 2015
Hypertension
Right bundle branch block
CML
Hyperlipidemia
TIA 2016
Frontal subdural hematoma 2019 (traumatic fall)
Long-standing smoker
Multiple laminectomy
Right total knee replacement
Left total knee replacement
Left upper arm AV graft September 13, 2023 (Dr. Luther)
NSTEMI August 2023 (troponin 0.51)
Hyperphosphatemia
Chronic ambulatory despite
Social History
Tobacco: Former Smoker
Alcohol: None
Personal:
Living: With Family
Family History
No chronic kidney disease
Allergies / Home Medications
Allergy/AdvReac Type Severity Reaction Status Date / Time
Iodinated Contrast Media Allergy Nausea / Verified 05/02/25 22:24
Vomiting,
'panic
attack'
latex Allergy Itching Verified 05/02/25 22:24
morphine Allergy Itching Verified 05/02/25 22:24
�Medication �Instructions �Recorded �Confirmed �Type
melatonin 5 mg tablet 5 mg PO HSPRN PRN sleep 04/06/19 05/03/25 History
atorvastatin 80 mg tablet 80 mg PO HS High cholesterol 01/25/21 05/03/25 History
clopidogrel 75 mg tablet (Plavix) 75 mg PO DAILY Blood Clot 02/19/24 05/03/25 History
Prevention/Tx
coQ10 (ubiquinol) 200 mg capsule 200 mg PO DAILY Supplement 02/19/24 05/03/25 History
semaglutide 0.25 mg or 0.5 mg (2 0.25 mg SC GRIMM Diabetes 02/19/24 05/03/25 History
mg/3 mL) subcutaneous pen injector
(Ozempic)
sertraline 100 mg tablet 100 mg PO BID Mental Health 02/19/24 05/03/25 History
vitamin B complex-vitamin C-folic 1 tab PO MOWEFR Supplement 02/19/24 05/03/25 History
acid 0.8 mg tablet (Nephro-Michelle)
amlodipine 2.5 mg tablet 2.5 mg PO BID #60 tabs 02/28/24 05/03/25 Rx
apixaban 5 mg tablet (Eliquis) 5 mg PO BID #60 tabs 02/28/24 05/03/25 Rx
acetaminophen 325 mg tablet 650 mg PO Q4HPRN PRN mild 05/25/24 05/03/25 History
pain/fever >100
albuterol sulfate 90 mcg/actuation 2 puff inhalation R Q4HPRN PRN sob 05/25/24 05/03/25 History
aerosol inhaler
methylphenidate HCl 10 mg tablet 30 mg PO DAILY ADHD 07/07/24 05/03/25 History
metoprolol succinate 25 mg 12.5 mg PO DAILY Heart 09/23/24 05/03/25 History
tablet,extended release 24 hr Disease/Condition
ascorbic acid (vitamin C) 500 mg 500 mg PO DAILY Supplement 11/03/24 05/03/25 History
tablet (Vitamin C)
ezetimibe 10 mg tablet (Zetia) 10 mg PO DAILY High Cholesterol #0 11/04/24 05/03/25 Rx
tabs
aripiprazole 2 mg tablet (Abilify) 2 mg PO DAILY Mental Health/Anxiety 03/15/25 05/03/25 History
Held on 04/19/25.
Instructions: Hold till
follow up with PCP
loperamide 2 mg tablet 2 mg PO TIDPRN PRN diarrhea 03/15/25 05/03/25 History
calcium acetate 667 mg PO TIDWMEAL 04/14/25 05/03/25 History
midodrine 5 mg tablet 5 mg PO Q4HPRN PRN SBP<100 #0 tabs 04/19/25 05/03/25 Rx
polyethylene glycol 3350 17 gram 17 g PO DAILYPRN PRN constipation 04/19/25 05/03/25 Rx
oral powder packet #0 ea
Enema Disposable 1 enema OH DAILY 05/03/25 History
bisacodyl 10 mg rectal suppository 10 mg OH DAILY PRN constipation 05/03/25 05/03/25 History
(Dulcolax (bisacodyl))
docusate sodium 100 mg capsule 100 mg PO BID 05/03/25 05/03/25 History
(Colace)
famotidine 10 mg tablet 10 mg PO DAILY nausea 05/03/25 05/03/25 History
lorazepam 1 mg tablet 1 mg PO DAILY 05/03/25 05/03/25 History
magnesium hydroxide 400 mg/5 mL 400 mg PO DAILY PRN constipation 05/03/25 05/03/25 History
oral suspension (Milk of Magnesia)
mupirocin 2 % topical ointment 1 applic topical DAILY 05/03/25 05/03/25 History
oxycodone 5 mg tablet 5 mg PO QIDPRN PRN back pain 05/03/25 05/03/25 History
sennosides 8.6 mg tablet (senna) 17.2 mg PO HS Constipation 05/03/25 05/03/25 History
Review of Systems
-
History Source: Patient
All other systems: Negative unless noted
Constitutional: Fatigue
Abdomen/GI: Constipated
Musculoskeletal: Other (Chronic back pain)
Neurological: Numbness (Neuropathy)
Physical Exam
Vital Signs
Vital Signs
Temp Pulse Resp BP Pulse Ox
98.4 F 61 16 181/116 98
05/03/25 07:55 05/03/25 07:56 05/03/25 07:55 05/03/25 07:56 05/03/25 07:55
Lab Results
05/03/25 07:46
05/03/25 07:46
WBC 32.2 10^3/uL (4.8-10.8) H 05/03/25 07:46
RBC 3.05 10^6/uL (4.70-6.10) L 05/03/25 07:46
Hgb 10.1 g/dL (13.0-18.0) L 05/03/25 07:46
Hct 28.8 % (39.0-52.0) L 05/03/25 07:46
Plt Count 406 10^3/uL (130-400) H 05/03/25 07:46
Sodium 135 mmol/L (135-145) 05/03/25 07:46
Potassium 5.8 mmol/L (3.5-5.1) H 05/03/25 07:46
Chloride 97 mmol/L (98-107) L 05/03/25 07:46
Carbon Dioxide 24 mmol/L (22-30) 05/03/25 07:46
BUN 76 mg/dl (9-20) H 05/03/25 07:46
Creatinine 8.8 mg/dL (0.7-1.3) H* 05/03/25 07:46
eGFR 6.03 05/03/25 07:46
Glucose 177 mg/dl (70-99) H 05/03/25 07:46
Calcium 10.2 mg/dl (8.4-10.2) 05/03/25 07:46
Albumin 4.2 g/dl (3.5-5.0) 05/02/25 23:09
Physical Exam
General: AOx3, Nontoxic , NAD
HEENT: PERRL, EOMI, Anicteric, Conjunctivae Clear, Ear/Nose Intact, Hearing Normal, Oropharynx Clear/Moist, Dentition Intact, Facial Symmetry, Neck Supple, Neck: Trachea Midline, No JVD and No Thyromegaly, no Bruits
Respiratory: Clear to auscultation bilaterally with normal lung excursion
Cardiac: S1/S2 and Regular Rate/Rhythm
Breast: Deferred by me
Abdomen: Soft, Nontender, Nondistended, Normal Bowel Sounds and No Hepatosplenomegaly
Rectal: Deferred by Provider
Genito-urinary: No Costovertebral Tenderness
Extremities: No Clubbing, No Cyanosis and No Edema
Skin: No Rash or open lesions
Neuro: Nonfocal/Grossly Intact, CN II-XII (Intact) and Strength (Musculoskeletal exam 5 out of 5 both upper and lower extremities)
Hematologic/Lymphatic: No Cervical Lymphadenopathy, No Submandibular Lymphadenopathy and No Supraclavicular Lymphadenopathy
Psych: Mood/afflect pleasant, Insight/judgement good and Appropriate
Vascular: plus 1 pedal and radial pulses
Vascular Access: AVF (Right upper extremity AV fistula: Under Alejandro wrap)
Data Reviewed
-
Radiology: Image Personally Visualized and interpreted (Chest x-ray without evidence of congestive heart failure or pneumonic process)
CT Scan: Report Reviewed by me (CT abdomen and pelvis without contrast reviewed: Endplate irregularities with mild surrounding paraspinal soft tissue thickening and stranding at the L1-L2 intervertebral verterbaral space concerning for discitis or
osteomyelitis)
Labs: Labs Reviewed by me (BMP CBC)
Old Records: Reviewed (Reviewed nephrology consult from March 2025 for ESRD when patient was admitted with mental status changes)
Assessment/Plan
-
Impression:
AV fistula bleed
Leukocytosis/Enterococcus faecalis bacteremia obtained from blood cultures from dialysis earlier this week
[facility] MWF, [facility] [place]
A-fib
DM2
CAD/CABG
Anemia
PAD
RUE AVF/ligated LUE AVG
Hyperphosphatemia
HTN
Diabetic neuropathy
Secondary hyperparathyroidism
Plan:
HD needs to be provided today once access clearance is achieved (suspected repeat venous outflow stenosis per vascular surgery)
Blood culture and antibiotic sensitivities conveyed to infectious disease
Blood pressure control with antihypertensives
Possible source of infection related to paraspinal infection via review of CT
GITA provided for anemia
Maintain phosphate binders for hyperphosphatemia
Appropriate fluid restrictions and sodium and potassium restrictions
--- NOTE | 2025-05-03 11:24 | CM ---
CM attempted to visit patient but he was out of room to testing. CM will continue to follow for discharge planning needs.
Plan; pending assessment
[2025-05-03 11:26] LABS: Glucose - Point of Care 183 mg/dl (70-99)
[2025-05-03] MEDS: DILAUDID 1 MG IV ×3 (11:51→22:15)
[2025-05-03] MEDS: AMPICILLIN 108 MG IV ×2 (11:53→22:15)
[2025-05-03] MEDS: DULCOLAX 10 MG RECTAL (12:46)
--- NOTE | 2025-05-03 13:56 | CM ---
Addendum entered by Stephanie Orr 05/03/25 14:05:
patient was uncertain if patient would be willing to return to [facility] but she is aware of limited options for HD on site.
Original Note:
Patient seen at bedside on . Patient stated that he lives with in a 2 story home with PCP from [facility] and the Pharmacy from [facility] on [facility]. Patient had [facility] in the past. Patient was previously at
[facility] and his is interested in options other than [facility] that he would have HD on site. Patient was going out of [facility] to [facility] and was being transported by van from [facility]. Patient did not hold bed per
admissions at [facility] but they would be willing to accept him back when medically appropriate. CM reviewed OBS/RODRIGUEZ status with patient and she indicated that she would review form when she comes in. Patient sleepy and c/o pain in back.
CM will continue to follow for discharge planning needs.
Plan; [facility]; [facility], [facility]; [facility] pending family choice and HD chair availability.
[2025-05-03] MEDS: DILAUDID 0.5 MG IV (14:30)
[2025-05-03] MEDS: LOKELMA 10 GRAM PO (18:09)
[2025-05-03 18:13] LABS: Glucose - Point of Care 168 mg/dl (70-99)
[2025-05-03] MEDS: MANNITOL 25% 12.5 GRAMS IV ×2 (18:49→20:25)
[2025-05-03] MEDS: RETACRIT 4000 UNITS IV (18:49)
--- NOTE | 2025-05-03 19:26 | W.PN.NEPH.HD ---
Assessment
-
patient seen for dialysis today
UF between 2 to 3 kg as hemodynamically tolerated
dialysis via temporary catheter
Progress Note - Hemodialysis
-
Date of Service: May 03, 2025
Duration: 30 minutes and 3 hours
Potassium Bath: 2
Calcium Bath: 2.5
Opti-Dialyzer: 160
Ultrafiltration: Other (2-3kg)
Blood Flow: 400
Dialysate Flow: 600
Heparin: none
[2025-05-03] MEDS: ZOLOFT PO (21:09)
[2025-05-03] MEDS: NORVASC PO (21:09)
[2025-05-03] MEDS: COLACE PO (21:09)
[2025-05-03 21:19] LABS: Glucose - Point of Care 129 mg/dl (70-99)
[2025-05-03] MEDS: LIPITOR 80 MG PO (22:15)
[2025-05-03] MEDS: SENOKOT 17.2 MG PO (22:15)
[2025-05-04] VITALS (9 sets, daily range): BP systolic 134–184; BP diastolic 72–87; BMI 24.6
--- NOTE | 2025-05-04 00:34 | PTCARENOTE ---
bodily hygiene was offered and accepted. However, due to the patient's back pain, he changed his mind and preferred to do it in the morning.
[2025-05-04] MEDS: DILAUDID 1 MG IV ×5 (01:41→23:26)
[2025-05-04] MEDS: LOKELMA 10 GRAM PO ×2 (06:04→15:03)
[2025-05-04 06:22] LABS: % Basophils 0.2 % (0-2); % Eosinophils 0.1 % (0-6); % Immature Granulocytes 0.6 % (0-0.5); % Lymphocytes 7.8 % (20.5-51.1); % Monocytes 11.1 % (1.7-9.3); % Neutrophils 80.2 % (42.2-75.2); Absolute Immature Granulocytes 0.1 10^3/uL (0-0.05); Absolute Lymphocytes 1.5 10^3/uL (1.2-3.4); Absolute Monocytes 2.1 10^3/uL (0.1-0.6); Absolute Neutrophils 14.8 10^3/uL (1.4-6.5); Hematocrit 22.7 % (39.0-52.0); Hemoglobin 7.6 g/dL (13.0-18.0); Mean Corp Hgb Conc. 33.5 g/dL (33.0-37.0); Mean Corpuscular Hgb 32.1 pg (27.0-31.0); Mean Corpuscular Volume 95.8 fL (80.0-94.0); Mean Platelet Volume 10.3 fL (7.4-10.4); Nucleated Red Blood Cells % 0 % (-); Platelet Count 323 10^3/uL (130-400); Red Blood Cell Count 2.37 10^6/uL (4.70-6.10); Red Cell Dist. Width 13.9 % (11.5-14.5); White Blood Cell Count 18.5 10^3/uL (4.8-10.8)
[2025-05-04 06:34] LABS: Blood Urea Nitrogen 41 mg/dl (9-20); Calcium 8.9 mg/dl (8.4-10.2); Carbon Dioxide 27 mmol/L (22-30); Chloride 98 mmol/L (98-107); Estimated Creatinine Clearance 18 ml/min; Glucose 111 mg/dl (70-99); Magnesium 2.8 mg/dl (1.6-2.3); Potassium 4.4 mmol/L (3.5-5.1); Sodium 135 mmol/L (135-145); eGFR 13.49
--- NOTE | 2025-05-04 06:35 | W.PN.UPDATE ---
Addendum entered and electronically signed by MARIYA Rea 05/04/25 07:11:
Written consent to tranfuse blood products obtained and in chart.
Original Note:
Update Note
Progress Note Update
AM labs critical value: Hgb 7.6, previously 10.1. Type and screen ordered. Spoke with patient regarding possible need for transfusion, explained benefits and risks. Patient states he has had transfusions in the past and verbalized understanding of
risks and benefits. Will defer ordering blood products to attending/consulted providers.
Noted oral candidiasis, ordered Nystatin.
--- NOTE | 2025-05-04 07:06 | W.PN.HOSP.TC ---
Today's Communication/Plan
-
;/
Assessment / Plan
Assessment / Plan
Assessment/plan
#Leukocytosis-afebrile
#Lower back pain and spasm
-Etiology likely discitis versus vertebral osteomyelitis
-ESR/CRP elevated
-CT abdomen- There are endplate irregularities with mild surrounding paraspinal soft tissue thickening/stranding at the L1-L2 intervertebral disc space which is concerning for discitis/osteomyelitis.
-Urinalysis negative
-Blood cultures preliminary gram-positive cocci
-Follow cultures until clear
-Per nephro, blood cultures drawn on dialysis the past week(prior to admission) positive for gram-positive cocci in pairs noted to be Enterococcus faecalis
-ID consulted, input appreciated
-Started on empiric ampicillin
-MRI of L-spine with and without contrast given findings on CT abdomen
-Pain medication with Dilaudid
#Prolonged bleeding at AV fistula
-Increased bleeding episode after hemodialysis
-Likely in the setting of anticoagulation and antiplatelet therapy
-AV U/S showed 'Patent right upper extremity AV fistula was multiple aneurysmal areas of dilation. Flow volumes range from 983 mL/m to 1829 mL/min, more than sufficient for achieving adequate hemodialysis. The distal outflow vein may be somewhat
compressed by adjacent aneurysmal area'.
-Vascular consulted, input appreciated. 'Fistula on exam is patent but pulsatile'
-For fistulogram after medical optimization.
#End-stage renal disease on HD
-Nephrology consulted, input appreciated
-non-tunneled catheter placed
-HD session yesterday
#Anemia
-Hgb dropped from 10.1 to 7.6
-Transfuse 2 Units pRBC
-Serial H&H
#Uncontrolled hypertension in the setting of ESRD
-Labetalol 10 mg IV as needed
-Continue home Norvasc
-Optimal pain control of lower back as may be contributing to elevated blood pressure readings
-Monitor BP
#Abdominal discomfort secondary to constipation
-CXR abdomen�nonobstructive bowel gas pattern. Moderate colonic stool burden
-Laxatives
#Paroxysmal atrial fibrillation
-Currently in NSR
-Anticoagulation with Eliquis, hold in the setting of anemia
#T2DM
-Coverage with SSIs
-A1C 4.9 03/16/2025
#CAD
-On Plavix, currently on hold
#Oral Candidiasis
-Nystatin
CODE STATUS; full code
DVT PPX - SCDs,
Anticipated Discharge: > 48 hours
Subjective/Interval History
-
Patient seen and examined at bedside. Patient complaining of pain lower back. He has been started on Dilaudid which he states has not really been helping pain. Had a bowel movement yesterday. Reports he has been sleeping less, wanted something
for sleep
Objective Data
-
Labs:
Laboratory Results
05/04/25 05/04/25 05/04/25
05:36 12:00 18:00
WBC 18.5 H
Hgb 7.6 L D Pending Pending
Hct 22.7 L Pending Pending
Plt Count 323 D
Sodium 135
Potassium 4.4
Chloride 98
Carbon Dioxide 27
BUN 41 H
Creatinine 4.5 H*
Glucose 111 H
Calcium 8.9
Vital Signs:
Vital Signs
Temp Pulse Resp BP Pulse Ox
98.8 F 96 16 177/77 95
05/04/25 03:00 05/04/25 03:00 05/04/25 03:00 05/04/25 03:00 05/04/25 03:00
I&O
05/03/25 05/04/25 05/05/25
06:59 06:59 06:59
Intake Total 60 / 60 620 / 620
Output Total 150 / 150
Balance 60 / 60 470 / 470
Review of Systems
-
All other systems: Reviewed and negative (Except as documented)
Physical Exam
-
General: No Apparent Distress
HEENT: Thrush
Respiratory: Clear to Auscultation; Negative Wheezes or Rales
Cardiac: Regular Rhythm and S1/S2
GI: Soft, Nondistended and Normal Bowel Sounds
Musculoskeletal: Other (Moderate tenderness to palpation of lower back, spinal area)
Neuro: Awake, Alert, Oriented and AO x 3
Psych: Calm
[2025-05-04 07:47] LABS: Glucose - Point of Care 119 mg/dl (70-99)
[2025-05-04] MEDS: MYCOSTATIN ORAL SUSPENSION 5 ML PO ×4 (08:37→21:31)
[2025-05-04] MEDS: RITALIN PO ×2 (08:37→08:43)
[2025-05-04] MEDS: NOVOLOG FLEXPEN-LOW RESISTANCE SC ×2 (08:37→17:54)
[2025-05-04] MEDS: COLACE 100 MG PO ×2 (08:38→21:31)
[2025-05-04] MEDS: ZETIA 10 MG PO (08:39)
[2025-05-04] MEDS: NORVASC 5 MG PO ×2 (08:39→21:31)
[2025-05-04] MEDS: TOPROL XL 12.5 MG PO (08:40)
[2025-05-04] MEDS: ZOLOFT 100 MG PO ×2 (08:40→21:31)
--- NOTE | 2025-05-04 09:45 | VATNOTE ---
Vat rounds: Noted left IJ HDC bleeding through the dressing. Dressing changed with ultrafoam applied to the insertion site. Will continue to monitor closely.
[2025-05-04] MEDS: DILAUDID 1.5 MG IV (11:00)
[2025-05-04 11:26] LABS: Glucose - Point of Care 155 mg/dl (70-99)
[2025-05-04] MEDS: DULCOLAX 10 MG RECTAL (11:45)
[2025-05-04] MEDS: NOVOLOG FLEXPEN-LOW RESISTANCE 1 UNITS SC (12:17)
[2025-05-04] MEDS: AMPICILLIN 108 MG IV ×2 (12:29→22:48)
[2025-05-04] MEDS: TYLENOL 650 MG PO (13:14)
[2025-05-04 14:52] LABS: Hematocrit 29.7 % (39.0-52.0); Hemoglobin 10.3 g/dL (13.0-18.0)
[2025-05-04] MEDS: DILAUDID 2 MG IV (15:05)
--- NOTE | 2025-05-04 15:33 | W.PN.NEPH.PH ---
Today's Communication / Plan
-
Dialysis tomorrow
Assessment/Plan
-
Impression:
AV fistula bleed
Leukocytosis/Enterococcus faecalis bacteremia obtained from blood cultures from dialysis earlier this week
[place]
A-fib
DM2
CAD/CABG
Anemia
PAD
RUE AVF/ligated LUE AVG
Hyperphosphatemia
HTN
Diabetic neuropathy
Secondary hyperparathyroidism
Plan:
HD tomorrow via temporary catheter orders provide
Blood pressure control with antihypertensives but severe pain is causing hypertension to exacerbate
Possible source of infection related to paraspinal infection via review of CT, patient was unable to perform MRI due to severe pain
Now on ampicillin for Enterococcus faecalis bacteremia
GITA provided for anemia, received blood products last evening for worsening anemia
Maintain phosphate binders for hyperphosphatemia
Appropriate fluid restrictions and sodium and potassium restrictions
-
-
Date of Service: May 04, 2025
CC / HPI / ROS
-
Chief Complaint:
ESRD
History of Present Illness:
ESRD on Saturday schedule
Hemodynamically stable, hypertensive in setting of severe back
Remains on ampicillin for Enterococcus faecalis Bactrim
Review of Systems:
Temp IJ cath
No fevers
No chest pain or shortness of breath
Severe lower back pain
Labs
-
Labs:
WBC 18.5 10^3/uL (4.8-10.8) H 05/04/25 05:36
RBC 2.37 10^6/uL (4.70-6.10) L 05/04/25 05:36
Plt Count 323 10^3/uL (130-400) D 05/04/25 05:36
Sodium 135 mmol/L (135-145) 05/04/25 05:36
Potassium 4.4 mmol/L (3.5-5.1) 05/04/25 05:36
Chloride 98 mmol/L (98-107) 05/04/25 05:36
Carbon Dioxide 27 mmol/L (22-30) 05/04/25 05:36
BUN 41 mg/dl (9-20) H 05/04/25 05:36
Creatinine 4.5 mg/dL (0.7-1.3) H* 05/04/25 05:36
eGFR 13.49 05/04/25 05:36
Glucose 111 mg/dl (70-99) H 05/04/25 05:36
Calcium 8.9 mg/dl (8.4-10.2) 05/04/25 05:36
Albumin 4.2 g/dl (3.5-5.0) 05/02/25 23:09
Physical Exam
-
Vital Signs:
Vital Signs
Temp Pulse Resp BP Pulse Ox
98.6 F 92 16 184/72 95
05/04/25 12:30 05/04/25 12:30 05/04/25 12:30 05/04/25 12:30 05/04/25 12:30
Cardiovascular:: Regular rate and rhythm
Respiratory:: Bilateral: CTA
Lung Excursion:: Normal
Abdomen:: Nontender and Soft
Bowel Sounds:: Normal
Extremity Edema:: None: Bilateral:
Other Findings::
Temp R IJ dialysis cath
[2025-05-04 17:34] LABS: Glucose - Point of Care 111 mg/dl (70-99)
--- NOTE | 2025-05-04 17:55 | W.PN.ID1 ---
Date of Service
Date of Service: May 04, 2025
Today's Communication
Continue antibiotics. See below�
Assessment / Plan
Leukocytosis
Low back pain with suspected discitis / vertebral osteomyelitis
Bacteremia with E. faecalis
Constipation / obstipation
Elevated ESR
Elevated CRP
pA-fib
CML
COPD
Hx CVA
HTN
HLD
DM type II
CAD; Hx NC
ESRD�HD
Obesity
Recommendations:
Blood cultures here with E faecalis.
Patient reports he was not able to complete MRI secondary to low back pain. Will be repeated with increased pain control.
Check echocardiogram
Continue ampicillin. Will add ceftriaxone.
Follow white count and temperature curve.
Management of obstipation per primary service.
Further recommendations as additional data is returned.
Chief Complaint
-: Bacteremia
Subjective / Review of Systems
Patient seen and examined. Reports ongoing low back pain. No fevers.
Vital Signs / Physical Exam
Vital Signs
Vital Signs
Temp Pulse Resp BP Pulse Ox
98.1 F 89 16 156/75 96
05/04/25 15:05 05/04/25 15:05 05/04/25 15:05 05/04/25 15:05 05/04/25 16:50
Physical Exam
Constitutional: Chronically Ill, Non-toxic and Other (Mild discomfort secondary to back pain)
Eyes: No Conjunctival Hemorrhage and Sclera Anicteric
Cardiovascular: S1/S2; Negative S3/S4
Pulmonary: Non Labored
Gastrointestinal: Soft and Non Tender
Musculoskeletal: Spinal Tenderness
Neurological: Awake and Alert
Psychological: Calm
Objective Data
Lab Data
Lab Results
05/04/25 05:36
ESR 72 mm/hour (0-20) H 05/03/25 07:46
PT 16.9 Sec (11.4-14.6) H 05/03/25 07:46
INR 1.35 05/03/25 07:46
Estimated Creat Clear 18 ml/min 05/04/25 05:36
Lactic Acid 0.7 mmol/L (0.7-2.0) 05/02/25 23:37
Total Bilirubin 0.6 mg/dl (0.2-1.3) 05/02/25 23:09
AST 21 U/L (17-59) 05/02/25 23:09
ALT < 10 U/L (0-50) 05/02/25 23:09
Alkaline Phosphatase 157 U/L (38-126) H 05/02/25 23:09
C-Reactive Protein 152.50 mg/L (0.0-10.00) H 05/03/25 07:46
Most recent labs reviewed.
Micro Results:
05/03/25 00:14 Blood Culture - Preliminary
Blood/Venous Enterococcus faecalis
Gram Stain - Preliminary
05/03/25 11:43 Blood Culture - Preliminary
Blood/Venous Positive culture in progress
Gram Stain - Final
05/03/25 11:02 Blood Culture - Preliminary
Blood/Venous Positive culture in progress
Gram Stain - Final
05/03/25 06:19 MRSA Screen - Final
Nose No Methicillin Resistant Staphylococcus aureus isolated.
05/02/25 23:37 Blood Culture - Preliminary
Blood/Venous No Growth in 24 hours- Final report to follow
Imaging:
05/03/2025 CT abdomen/pelvis without contrast: Moderate colonic stool burden without evidence of obstruction. Prior L1-L5 posterior spinal fusion noted. There are endplate irregularities with mild surrounding paraspinal soft tissue
thickening/stranding at the L1-L2 intervertebral space which is concerning for discitis or osteomyelitis. A dedicated MRI with and without contrast may be considered as clinically indicated.
[2025-05-04] MEDS: ROCEPHIN 2000 MG IV (18:42)
[2025-05-04] MEDS: STERILE WATER FOR INJECTION 20 ML IV (18:42)
[2025-05-04] MEDS: TORADOL 15 MG IV (19:37)
--- NOTE | 2025-05-04 19:46 | PTCARENOTE ---
TT with provider Dr Larios/Malik at 15:54. Pt Hgb afer 1 PRBC unit was 10.3, advised to hold administration of second unit at this time.
[2025-05-04] MEDS: LIPITOR 80 MG PO (21:30)
[2025-05-04] MEDS: MELATONIN 5 MG PO (21:31)
[2025-05-04] MEDS: SENOKOT 17.2 MG PO (21:31)
[2025-05-04 21:45] LABS: Hematocrit 25.9 % (39.0-52.0); Hemoglobin 9.1 g/dL (13.0-18.0)
[2025-05-04 22:07] LABS: Glucose - Point of Care 221 mg/dl (70-99)
--- NOTE | 2025-05-04 22:12 | W.PN.UPDATE ---
Update Note
Progress Note Update
~ 21:20 Repeat H&H: Hgb 9.1 after transfusing 1 unit PRBC's, no active bleeding noted, Vital signs stable. Second unit PRBC's ordered, will hold at this time. Repeat H&H @ 3 am, transfuse 2nd unit of PRBC's if drop in Hgb or active bleeding noted.
[2025-05-05] VITALS (8 sets, daily range): BP systolic 120–182; BP diastolic 54–87; BMI 24.8
[2025-05-05] MEDS: DILAUDID 0.5 MG IV ×2 (01:30→05:48)
[2025-05-05 03:17] LABS: Hematocrit 25.7 % (39.0-52.0); Hemoglobin 8.7 g/dL (13.0-18.0)
--- NOTE | 2025-05-05 03:37 | PTCARENOTE ---
Per dayshift RN, RN was instructed to hold off on second unit of PRBCs since Hgb was 10.3 after 1st unit PRBCs. Repeat H&H at 2120 was 9.1. BAND INSTRUMENT REPAIRER notified, 0300 H&H ordered. Hgb 8.7. BAND INSTRUMENT REPAIRER notified, instructed to trend hgb for now. Plan of care
ongoing.
[2025-05-05] MEDS: DILAUDID 1 MG IV ×2 (03:49→09:01)
[2025-05-05] MEDS: ROCEPHIN 2000 MG IV ×2 (05:46→17:18)
[2025-05-05] MEDS: STERILE WATER FOR INJECTION 20 ML IV ×2 (05:46→17:18)
--- NOTE | 2025-05-05 07:22 | W.PN.HOSP.TC ---
Today's Communication/Plan
-
;/
Assessment / Plan
Assessment / Plan
Assessment/plan
#Discitis and osteomyelitis at L1-2
-Lumbar MRI- At the L1-2 level, there is increased T2 and STIR signal within the disc space, and the disc space is widened. There is abnormal decreased T1 and increased T2 and STIR signal throughout the L1 and L2 vertebral bodies, and there is
interval destruction of the anterior-inferior endplate of L1. There is also intermediate T1 and heterogeneous predominantly increased T2-weighted signal within the paraspinal soft tissues. Findings are compatible with discitis and osteomyelitis,
with paraspinal inflammation and probable paraspinal abscesses.
Of note, there is no evidence for epidural abscess. No evidence for significant epidural extension of inflammatory process/phlegmon.
-ESR/CRP elevated
-Blood cultures preliminary Enterococcus species
-Follow cultures until clear
-Per nephro, blood cultures drawn on dialysis the past week(prior to admission) positive for gram-positive cocci in pairs noted to be Enterococcus faecalis
-ID consulted, input appreciated
-Started on empiric ampicillin, ceftriaxone added to regimen by ID
-Pain medication with oxycodone
-Consult Neurosurgery
-Echocardiogram pending
#Prolonged bleeding at AV fistula
-Increased bleeding episode after hemodialysis
-Likely in the setting of anticoagulation and antiplatelet therapy
-AV U/S showed 'Patent right upper extremity AV fistula was multiple aneurysmal areas of dilation. Flow volumes range from 983 mL/m to 1829 mL/min, more than sufficient for achieving adequate hemodialysis. The distal outflow vein may be somewhat
compressed by adjacent aneurysmal area'.
-Vascular consulted, input appreciated. 'Fistula on exam is patent but pulsatile'
-For fistulogram after medical optimization.
#End-stage renal disease on HD
-Nephrology consulted, input appreciated
-non-tunneled catheter placed
-HD session 05/03, today 05/05
#Acute blood loss anemia secondary to hemorrhage of AVF and recently placed temporary dialysis access.
-Hgb dropped from 10.1>>7.6
-s/p 1 unit of PRBC, with improvement of Hgb to 10.3
-Monitor CBC
#Uncontrolled hypertension in the setting of ESRD
-Labetalol 10 mg IV as needed
-Continue home Norvasc
-Optimal pain control of lower back as may be contributing to elevated blood pressure readings
-Monitor BP.
#Abdominal discomfort secondary to constipation
-CXR abdomen�nonobstructive bowel gas pattern. Moderate colonic stool burden
-Laxatives
#Atrial flutter with RVR- new
#History of paroxysmal atrial fibrillation on Eliquis
-Stat Lopressor
-Cardiology consulted
-Anticoagulation with Eliquis currently on hold
#T2DM
-Coverage with SSIs
-A1C 4.9 03/16/2025
#CAD
-On Plavix, currently on hold
#Oral Candidiasis
-Nystatin
CODE STATUS; full code
DVT PPX - SCDs,
Anticipated Discharge: > 48 hours
Subjective/Interval History
-
Patient seen at bedside on HD.
Objective Data
-
Labs:
Laboratory Results
05/04/25 05/05/25 05/05/25
21:21 03:06 06:00
WBC Pending
Hgb 9.1 L 8.7 L Pending
Hct 25.9 L 25.7 L Pending
Plt Count Pending
Sodium Pending
Potassium Pending
Chloride Pending
Carbon Dioxide Pending
BUN Pending
Creatinine Pending
Glucose Pending
Calcium Pending
Vital Signs:
Vital Signs
Temp Pulse Resp BP Pulse Ox
98.1 F 89 14 155/71 97
05/05/25 03:00 05/05/25 03:00 05/05/25 03:00 05/05/25 03:00 05/05/25 03:00
I&O
05/04/25 05/05/25 05/06/25
06:59 06:59 06:59
Intake Total 620 / 620 480 / 480
Output Total 150 / 150 325 / 325
Balance 470 / 470 155 / 155
Review of Systems
-
All other systems: Reviewed and negative (Except as documented)
Physical Exam
-
General: No Apparent Distress
HEENT: Thrush
Respiratory: Clear to Auscultation; Negative Wheezes or Rales
Cardiac: S1/S2 and Irregular Rhythm
GI: Soft, Nondistended and Normal Bowel Sounds
Musculoskeletal: Other (Moderate tenderness to palpation of lower back, spinal area)
Neuro: Awake, Alert, Oriented and AO x 3
Psych: Calm
[2025-05-05 07:52] LABS: Glucose - Point of Care 166 mg/dl (70-99)
[2025-05-05 08:23] LABS: % Basophils 0.2 % (0-2); % Eosinophils 1.3 % (0-6); % Immature Granulocytes 1.2 % (0-0.5); % Lymphocytes 7.2 % (20.5-51.1); % Monocytes 11.6 % (1.7-9.3); % Neutrophils 78.5 % (42.2-75.2); Absolute Eosinophils 0.2 10^3/uL (0-0.7); Absolute Immature Granulocytes 0.2 10^3/uL (0-0.05); Absolute Lymphocytes 1.3 10^3/uL (1.2-3.4); Absolute Monocytes 2.1 10^3/uL (0.1-0.6); Absolute Neutrophils 14.4 10^3/uL (1.4-6.5); Hematocrit 26.4 % (39.0-52.0); Hemoglobin 8.9 g/dL (13.0-18.0); Mean Corp Hgb Conc. 33.7 g/dL (33.0-37.0); Mean Platelet Volume 10.1 fL (7.4-10.4); Nucleated Red Blood Cells % 0 % (-); Platelet Count 318 10^3/uL (130-400); Red Blood Cell Count 2.78 10^6/uL (4.70-6.10); Red Cell Dist. Width 14.8 % (11.5-14.5); White Blood Cell Count 18.4 10^3/uL (4.8-10.8)
[2025-05-05] MEDS: RETACRIT 4000 UNITS IV (09:14)
[2025-05-05] MEDS: FERRLECIT 125 MG IV (09:15)
[2025-05-05 09:47] LABS: Blood Urea Nitrogen 59 mg/dl (9-20); Calcium 8.4 mg/dl (8.4-10.2); Carbon Dioxide 28 mmol/L (22-30); Chloride 96 mmol/L (98-107); Estimated Creatinine Clearance 12 ml/min; Glucose 142 mg/dl (70-99); Magnesium 3.7 mg/dl (1.6-2.3); Potassium 3.9 mmol/L (3.5-5.1); Sodium 134 mmol/L (135-145); eGFR 8.67
[2025-05-05] MEDS: LOPRESSOR 10 MG IV (10:09)
--- NOTE | 2025-05-05 10:28 | W.PN.NEPH.HD ---
Assessment
-
Seen on HD. no complaints. VSS, access ok
iron on HD
will need ortho eval for discitis
abx per ID
await echo
Progress Note - Hemodialysis
-
Date of Service: May 05, 2025
Duration: 30 minutes and 3 hours
Potassium Bath: 2
Calcium Bath: 2.5
Opti-Dialyzer: 160
Ultrafiltration: Other (3kg)
Blood Flow: 400
Dialysate Flow: 600
Heparin: 0
EPO: 4000 units
[2025-05-05] MEDS: FLEXERIL 10 MG PO ×2 (10:53→17:25)
[2025-05-05] MEDS: LOPRESSOR 5 MG IV (11:38)
[2025-05-05 11:45] LABS: Glucose - Point of Care 127 mg/dl (70-99)
[2025-05-05] MEDS: NOVOLOG FLEXPEN-LOW RESISTANCE SC ×2 (11:53→12:56)
[2025-05-05] MEDS: LIDOCAINE 4% PATCH 1 PATCH TOPICAL (12:45)
[2025-05-05] MEDS: MYCOSTATIN ORAL SUSPENSION 5 ML PO ×4 (12:46→21:39)
[2025-05-05] MEDS: ZETIA 10 MG PO (12:46)
[2025-05-05] MEDS: AMPICILLIN 108 MG IV ×2 (12:46→21:38)
[2025-05-05] MEDS: TYLENOL 650 MG PO ×3 (12:46→22:39)
[2025-05-05] MEDS: NORVASC 5 MG PO ×2 (12:46→20:48)
[2025-05-05] MEDS: ZOLOFT 100 MG PO ×2 (12:47→20:48)
[2025-05-05] MEDS: COLACE 100 MG PO ×2 (12:47→20:48)
--- NOTE | 2025-05-05 12:52 | PN.CDI ---
CDI
- -
CDI:
Physician Documentation Request
Admit Date: 05/03/25 14:52
Dear Doctor Harriet,
Patient's blood cultures positive for Enterococcus faecalis.
MRI of spine was positive for '...discitis and osteomyelitis at L1-2. There is evidence for paraspinal inflammation with probable paraspinal abscesses.'
Patient has remained afebrile.
Presenting heart rates 97-101, respiratory rate 12-26 , 05/02 wbc 29.1 , 05/03 32.2
Please clarify which of the following most accurately describes the status of the patient's infection:
Sepsis - please indicate if POA
- Systemic manifestations of infection, with 2 or more SIRS criteria which include:
- Fever >100.9 degrees F or hypothermia < 96.8 degrees F
- Leukocytosis - WBC > 12,000 or leukopenia - WBC < 4,000 or > 10% bands
- Tachycardia > 90 beats per minute
- Tachypnea - RR > 20 breaths per minute or PaCO2 , 32mmHg
Source: [employer]ck Manual 2013
Localized Infection Only, Without Systemic Illness
- indicate the site/source, such as UTI, pneumonia etc.
Bacteremia
- Abnormal lab finding only, does not indicate systemic illness
Other
Use of terms such as suspected, likely, concern for, or probable (associated with a specific diagnosis that is being evaluated, monitored, or treated as if it exists) are acceptable and can be coded in the inpatient setting, when documented at the
time of discharge.
Thank you,
Chela SIMMONS
CDI Specialist
tiger text
Please use your independent medical judgment in providing your response.
[2025-05-05] MEDS: NEPHROCAP 1 CAPSULE PO (12:55)
[2025-05-05] MEDS: RITALIN PO (12:55)
[2025-05-05] MEDS: TOPROL XL PO (12:56)
--- NOTE | 2025-05-05 12:58 | PN.CDI ---
CDI
- -
CDI:
Physician Documentation Request
Admit Date: 05/03/25 14:52
Dear Doctor Harriet,
Patient presented to ED with bleeding from HD fistula site.
Patients Eliquis and Plavix were held.
Please clarify if a relationship exist between these conditions:
Yes, bleeding is related to/associated with/due to/exacerbated by Plavix and/or Eliquis
No, bleeding is not related to/associated with/due to /exacerbated by Plavix and/or Eliquis
Unable to determine
Use of terms such as suspected, likely, concern for, or probable (associated with a specific diagnosis that is being evaluated, monitored, or treated as if it exists) are acceptable and can be coded in the inpatient setting, when documented at the
time of discharge.
Thank you,
Chela Desai RN, BSN
CDI Specialist
tiger text
Please use your independent medical judgment in providing your response.
[2025-05-05] MEDS: ROXICODONE 20 MG PO ×2 (13:17→21:39)
--- NOTE | 2025-05-05 14:52 | CON.CAR ---
Addendum entered and electronically signed by Harman Peña DO 05/05/25 15:59:
I saw and examined the patient.
The Manager [employer]'s note was reviewed and I agree with the note.
Comment:
Plan:
Paroxysmal of atrial flutter were noted on telemetry. He is now in normal sinus rhythm.
Increase Toprol to 12.5 mg twice daily to help with heart rate and hypertension.
Could consider retrial of amiodarone if he has recurrence of paroxysmal atrial flutter.
Amiodarone was previously stopped due to elevated LFTs, change in mental status, second degree AV block.
Eliquis currently on hold with bleeding. Resume when okay with vascular
Continue Plavix
Eventual reevaluation with electrophysiology to consider ablation once he has recovered.
Echo is pending.
ID following and treating bacteremia
Neurosurgery evaluating discitis/osteomyelitis lumbar spine
Volume management through hemodialysis
Discussed with nursing discussed with nephrology.
HPI: This is a 68 year old male patient with an extensive cardiac PMH of CAD with history of CABGx3 in 2009 and LAD stent, Atrial fib on Eliquis, HTN, ESRD on HD, CML, TIA in 2016 and CVA 2018, PAD with history of left SFA stent in 2015 and NIDDM.
He had been evaluated 04/19/2025 for mental status changes felt to be due to pain medications for chronic back discomfort. He reports a transient fever without recurrence. He had blood cultures drawn during dialysis last week which resulted
positive for Enterococcus. He then had bleeding from his AV fistula causing him to come to the hospital. He also reports continued back discomfort. he was found by imaging to have evidence of osteomyelitis/discitis and is being treated with IV
antibiotics. Neurosurgery has been consulted for evaluation in addition. Cardiology consulted as patient noted to be tachycardic earlier today with associated feeling of 'panic attack'. He denies symptoms of chest pain, shortness of breath,
palpitations. He is chronically on plavix, Eliquis as well as Toprol 12.5 mg daily. He had previously been on amiodarone in 2023, however then had altered mental status and elevated liver function tests and amiodarone was discontinued.
Original Note:
Consultation
Consultation Request
Date/Time Consultation Performed: 05/05/25
Requesting Provider: Dr. Gan
Performing Provider: Domenica Caba PA-C for Dr. Peña
Reason for Consultation: aflutter
Medical History
-
Chief Complaint: back pain
History of Present Illness:
This is a 68 year old male patient with an extensive cardiac PMH of CAD with history of CABGx3 in 2009 and LAD stent, Atrial fib on Eliquis, HTN, ESRD on HD, CML, TIA in 2016 and CVA 2018, PAD with history of left SFA stent in 2015 and NIDDM. He had
been evaluated 04/19/2025 for mental status changes felt to be due to pain medications for chronic back discomfort. He reports a transient fever without recurrence. He had blood cultures drawn during dialysis last week which resulted positive for
Enterococcus. He then had bleeding from his AV fistula causing him to come to the hospital. He also reports continued back discomfort. he was found by imaging to have evidence of osteomyelitis/discitis and is being treated with IV antibiotics.
Neurosurgery has been consulted for evaluation in addition. Cardiology consulted as patient noted to be tachycardic earlier today with associated feeling of 'panic attack'. He denies symptoms of chest pain, shortness of breath, palpitations. He
is chronically on plavix, Eliquis as well as Toprol 12.5 mg daily. He had previously been on amiodarone in 2023, however then had altered mental status and elevated liver function tests and amiodarone was discontinued.
PMH:
CAD
-PCI LAD 2005
-CABGx3 2009
-PCI VG to OM 09/2023
-s/p PCI ISR VG to OM 11/03/24
HTN
HLD
Parox afib/aflutter on chronic eliquis
RBBB
Chronic HFpEF
ESRD HD MWF
GERD
PAD
DM2
TIA/CVA
Ambulatory dysfunction
Osteoarthritis chronic pain syndrome
BPH
Gout
Depression
Anemia of chronic disease
Staph bacteremia 01/2024
Right foot wound with abscess status post I&D and debridement 10/2024
Past Medical History
Past Medical History: Cancer, HTN, Hypercholesterolemia, NIDDM and Other (ASCVD (CAD, PAD, Carotid Disease, CVA / TIA), Paroxysmal Atrial Fibrillation Chronic HFpEF, CML, ESRD on HD, Pulmonary Hypertension, Anxiety/Depression/ADHD, Anemia of
Chronic Disease, BPH, peripheral neuropathy, pulmonary HTN, )
Past Surgical History: Cardiac (CABG 2009)
Social History
Tobacco: Former Smoker
Alcohol: None
Personal:
Living: With Family
Family History
Family History: Reviewed & Not Pertinent
Allergies / Home Medications
Allergy/AdvReac Type Severity Reaction Status Date / Time
Iodinated Contrast Media Allergy Nausea / Verified 05/02/25 22:24
Vomiting,
'panic
attack'
latex Allergy Itching Verified 05/02/25 22:24
morphine Allergy Itching Verified 05/02/25 22:24
�Medication �Instructions �Recorded �Confirmed �Type
melatonin 5 mg tablet 5 mg PO HSPRN PRN sleep 04/06/19 05/03/25 History
atorvastatin 80 mg tablet 80 mg PO HS High cholesterol 01/25/21 05/03/25 History
clopidogrel 75 mg tablet (Plavix) 75 mg PO DAILY Blood Clot 02/19/24 05/03/25 History
Prevention/Tx
coQ10 (ubiquinol) 200 mg capsule 200 mg PO DAILY Supplement 02/19/24 05/03/25 History
semaglutide 0.25 mg or 0.5 mg (2 0.25 mg SC GRIMM Diabetes 02/19/24 05/03/25 History
mg/3 mL) subcutaneous pen injector
(Ozempic)
sertraline 100 mg tablet 100 mg PO BID depression/anxiety 02/19/24 05/03/25 History
vitamin B complex-vitamin C-folic 1 tab PO MOWEFR Supplement 02/19/24 05/03/25 History
acid 0.8 mg tablet (Nephro-Michelle)
amlodipine 2.5 mg tablet 2.5 mg PO BID #60 tabs 02/28/24 05/03/25 Rx
apixaban 5 mg tablet (Eliquis) 5 mg PO BID #60 tabs 02/28/24 05/03/25 Rx
acetaminophen 325 mg tablet 650 mg PO Q4HPRN PRN mild 05/25/24 05/03/25 History
pain/fever >100
albuterol sulfate 90 mcg/actuation 2 puff inhalation R Q4HPRN PRN sob 05/25/24 05/03/25 History
aerosol inhaler
methylphenidate HCl 10 mg tablet 30 mg PO DAILY ADHD 07/07/24 05/03/25 History
metoprolol succinate 25 mg 12.5 mg PO DAILY Heart 09/23/24 05/03/25 History
tablet,extended release 24 hr Disease/Condition
ascorbic acid (vitamin C) 500 mg 500 mg PO DAILY Supplement 11/03/24 05/03/25 History
tablet (Vitamin C)
ezetimibe 10 mg tablet (Zetia) 10 mg PO DAILY High Cholesterol #0 11/04/24 05/03/25 Rx
tabs
aripiprazole 2 mg tablet (Abilify) 2 mg PO DAILY Mental Health/Anxiety 03/15/25 05/03/25 History
Held on 04/19/25.
Instructions: Hold till
follow up with PCP
loperamide 2 mg tablet 2 mg PO TIDPRN PRN diarrhea 03/15/25 05/03/25 History
calcium acetate 667 mg PO TIDWMEAL Kidney Disease 04/14/25 05/03/25 History
midodrine 5 mg tablet 5 mg PO Q4HPRN PRN SBP<100 #0 tabs 04/19/25 05/03/25 Rx
polyethylene glycol 3350 17 gram 17 g PO DAILYPRN PRN constipation 04/19/25 05/03/25 Rx
oral powder packet #0 ea
Enema Disposable 1 enema MD DAILY Constipation 05/03/25 History
bisacodyl 10 mg rectal suppository 10 mg MD DAILY PRN constipation 05/03/25 05/03/25 History
(Dulcolax (bisacodyl))
docusate sodium 100 mg capsule 100 mg PO BID Constipation 05/03/25 05/03/25 History
(Colace)
famotidine 10 mg tablet 10 mg PO DAILY Gastrointestinal 05/03/25 05/03/25 History
Issue
lorazepam 1 mg tablet 1 mg PO DAILY anxiety 05/03/25 05/03/25 History
magnesium hydroxide 400 mg/5 mL 400 mg PO DAILY PRN constipation 05/03/25 05/03/25 History
oral suspension (Milk of Magnesia)
mupirocin 2 % topical ointment 1 applic topical DAILY Skin Issues 05/03/25 05/03/25 History
oxycodone 5 mg tablet 5 mg PO QIDPRN PRN back pain 05/03/25 05/03/25 History
sennosides 8.6 mg tablet (senna) 17.2 mg PO HS Constipation 05/03/25 05/03/25 History
Review of Systems
-
History Source: Patient
All other systems: Negative unless noted
Physical Exam
Vital Signs
Temp Pulse Resp BP Pulse Ox
98.1 F 92 18 175/91 96
05/05/25 10:53 05/05/25 12:46 05/05/25 10:53 05/05/25 12:46 05/05/25 10:53
Lab Results
05/05/25 07:28
05/05/25 07:28
Physical Exam
General: No Apparent Distress and Comfortable
HEENT: Normocephalic, Anicteric and Moist Mucous Membranes
Respiratory: Non Labored Respirations
Cardiac: Regular Rhythm
Musculoskeletal: No Clubbing, No Cyanosis and No Edema
Skin: Warm and Dry
Neuro: AO x 3
Impression / Plan
-
PCP: Placido Lora MD
CDY: Tai Serra MD
Impression:
Bleeding from LUE fistula
Acute on chronic anemia of chronic disease
Sepsis
Enterococcus bacteremia
Osteomyelitis/discitis of L1-L2
Parox afib/typical aflutter on chronic eliquis
CAD
-PCI LAD 2005
-CABGx3 2009
-PCI VG to OM 09/2023
-s/p PCI ISR VG to OM 11/03/24
HTN
HLD
RBBB
Chronic HFpEF
ESRD HD MWF
GERD
PAD
DM2
TIA/CVA
Ambulatory dysfunction
Osteoarthritis chronic pain syndrome
BPH
Gout
Depression
Staph bacteremia 01/2024
Right foot wound with abscess status post I&D and debridement 10/2024
ECHO 07/02/24: EF 50 to 55%, mild concentric LVH, no significant valvular disease
Plan:
- Patient presented with anemia secondary to bleeding from left upper extremity fistula after dialysis. Will require eventual fistulogram per vascular, timing to be determined
- Also with leukocytosis and sepsis secondary to Enterococcus bacteremia. Noted to have evidence of osteomyelitis/discitis of lumbar spine with probable paraspinal abscesses. Continue IV antibiotics. Neurosurgery has been consulted for evaluation
- Cardiology consulted as today on telemetry noted to have multiple paroxysms of atrial flutter. EKG reviewed by me, 2:1 aflutter. Patient with some anxious feelings, however no clear palpitations. He is presently in sinus rhythm. He had
previously been on amiodarone therapy, however this was subsequently stopped due to elevated LFTs and change in mental status. Will attempt to increase Toprol dose from 12.5 daily to 12.5 twice daily as blood pressures are elevated. May need to
consider retrial of amiodarone therapy if remains paroxysmal
- Continue plavix. eliquis remains on hold, hopefully can resume in next 24-48 hours. Hemoglobin 8.9 s/p 1 U PRBCs
- Last echo from 06/2024, repeat pending
- volume mgmt through HD
- would consider EP eval once recovered to discuss candidacy for ablation
Data Reviewed
-
EKG: Tracing Personally Visualized and interpreted
MRI: Report Reviewed by me
Medical Tests (Nuc Med, Echo etc): Report Reviewed by me
Labs: Labs Reviewed by me
Old Records: Reviewed
[2025-05-05 16:42] LABS: Glucose - Point of Care 275 mg/dl (70-99)
[2025-05-05] MEDS: PLAVIX 75 MG PO (17:18)
--- NOTE | 2025-05-05 17:21 | W.PN.ID1 ---
Date of Service
Date of Service: May 05, 2025
Today's Communication
Continue antibiotics.
Assessment / Plan
Leukocytosis
Low back pain with suspected discitis / vertebral osteomyelitis
Bacteremia with E. faecalis
Constipation / obstipation
Elevated ESR
Elevated CRP
pA-fib
CML
COPD
Hx CVA
HTN
HLD
DM type II
CAD; Hx NV
ESRD�HD
Obesity
Recommendations:
Blood cultures here with E. faecalis.
MRI findings compatible with discitis and osteomyelitis at L1-2. Possible paraspinal inflammation also noted.
TTE nondiagnostic. Will likely need LISA.
Continue ampicillin and ceftriaxone
Follow white count and temperature curve.
����������������������������������������������������������
Chief Complaint
-: Bacteremia
Subjective / Review of Systems
Patient's examined. Notes ongoing back pain.
Review of Systems: No Fever and No Chills
Vital Signs / Physical Exam
Vital Signs
Vital Signs
Temp Pulse Resp BP Pulse Ox
98.4 F 90 17 150/66 96
05/05/25 15:32 05/05/25 15:32 05/05/25 15:32 05/05/25 15:32 05/05/25 15:36
Physical Exam
Constitutional: Chronically Ill, Non-toxic and Other (Mild discomfort secondary to back pain)
Eyes: No Conjunctival Hemorrhage and Sclera Anicteric
Cardiovascular: S1/S2; Negative S3/S4
Pulmonary: Non Labored
Gastrointestinal: Soft and Non Tender
Musculoskeletal: Spinal Tenderness
Neurological: Awake and Alert
Psychological: Calm
Objective Data
Lab Data
Lab Results
05/05/25 07:28
05/05/25 07:28
ESR 72 mm/hour (0-20) H 05/03/25 07:46
PT 16.9 Sec (11.4-14.6) H 05/03/25 07:46
INR 1.35 05/03/25 07:46
Estimated Creat Clear 12 ml/min 05/05/25 07:28
Lactic Acid 0.7 mmol/L (0.7-2.0) 05/02/25 23:37
Total Bilirubin 0.6 mg/dl (0.2-1.3) 05/02/25 23:09
AST 21 U/L (17-59) 05/02/25 23:09
ALT < 10 U/L (0-50) 05/02/25 23:09
Alkaline Phosphatase 157 U/L (38-126) H 05/02/25 23:09
C-Reactive Protein 152.50 mg/L (0.0-10.00) H 05/03/25 07:46
Most recent labs reviewed.
Micro Results:
05/05/25 08:41 Blood Culture - Pending
Blood/Venous
05/03/25 11:43 Blood Culture - Preliminary
Blood/Venous Enterococcus species
Gram Stain - Final
05/03/25 11:02 Blood Culture - Preliminary
Blood/Venous Enterococcus species
Gram Stain - Final
05/03/25 00:14 Blood Culture - Preliminary
Blood/Venous Enterococcus faecalis
Gram Stain - Preliminary
05/05/25 07:28 Blood Culture - Pending
Blood/Venous
05/02/25 23:37 Blood Culture - Preliminary
Blood/Venous No Growth in 48 hours- Final report to follow
05/03/25 06:19 MRSA Screen - Final
Nose No Methicillin Resistant Staphylococcus aureus isolated.
Imaging:
05/05/2025 ECHO (TTE): Technically difficult study. EF approximately 50%. No evidence of vegetation but consider LISA if clinically indicated. See full dictation for additional detail.
05/03/2025 CT abdomen/pelvis without contrast: Moderate colonic stool burden without evidence of obstruction. Prior L1-L5 posterior spinal fusion noted. There are endplate irregularities with mild surrounding paraspinal soft tissue
thickening/stranding at the L1-L2 intervertebral space which is concerning for discitis or osteomyelitis. A dedicated MRI with and without contrast may be considered as clinically indicated.
[2025-05-05] MEDS: NOVOLOG FLEXPEN-LOW RESISTANCE 3 UNITS SC (17:23)
[2025-05-05] MEDS: TOPROL XL 12.5 MG PO (20:48)
[2025-05-05] MEDS: SENOKOT PO (21:39)
[2025-05-05] MEDS: MELATONIN 5 MG PO (21:39)
[2025-05-05] MEDS: LIPITOR 80 MG PO (21:39)
[2025-05-05 21:41] LABS: Glucose - Point of Care 160 mg/dl (70-99)
--- NOTE | 2025-05-05 22:44 | PTCARENOTE ---
Addendum entered by Lilo Mancuso RN 05/06/25 06:55:
unable to obtain EKG while HR in 120s. Pt back in NSR.
Addendum entered by Lilo Mancuso RN 05/06/25 03:45:
Pt's HR sustaining in 120s, pt asymptomatic. BP 113/56 and temp 98 orally. Pt not warm and no signs of a fever. C[employer] notified, Lopressor 2.5mg ordered (see mar). Plan of care ongoing.
Original Note:
Pt's HR sustaining in 130s, Sinus tach on monitor. pt asymptomatic. BP 114/68, temp 98.5 orally. Pt very warm but refusing rectal temp d/t pain and stated 'I violently refuse'. oxy 20mg already given (see MAR). C[employer]ER [employer] ASS[employer]IATE notified, instructed to give
tylenol. Hr back in 90s, NSR. Plan of care ongoing.
[2025-05-06] MEDS: FLEXERIL 10 MG PO ×3 (00:06→17:06)
[2025-05-06] MEDS: TYLENOL 650 MG PO ×2 (03:00→19:10)
[2025-05-06 03:05] VITALS: BP 113/56
[2025-05-06] MEDS: LOPRESSOR 2.5 MG IV (03:40)
[2025-05-06] MEDS: ROCEPHIN 2000 MG IV ×2 (05:11→17:45)
[2025-05-06] MEDS: STERILE WATER FOR INJECTION 20 ML IV ×2 (05:11→17:45)
[2025-05-06 06:00] VITALS: BMI 24.6
[2025-05-06 06:20] LABS: % Basophils 0.2 % (0-2); % Eosinophils 2.6 % (0-6); % Lymphocytes 12.3 % (20.5-51.1); % Neutrophils 71.9 % (42.2-75.2); Absolute Eosinophils 0.4 10^3/uL (0-0.7); Absolute Immature Granulocytes 0.2 10^3/uL (0-0.05); Absolute Neutrophils 11.9 10^3/uL (1.4-6.5); Hematocrit 26.1 % (39.0-52.0); Hemoglobin 8.6 g/dL (13.0-18.0); Mean Corpuscular Hgb 31.2 pg (27.0-31.0); Mean Corpuscular Volume 94.6 fL (80.0-94.0); Mean Platelet Volume 10.2 fL (7.4-10.4); Nucleated Red Blood Cells % 0.1 % (-); Platelet Count 326 10^3/uL (130-400); Red Blood Cell Count 2.76 10^6/uL (4.70-6.10); Red Cell Dist. Width 14.6 % (11.5-14.5); White Blood Cell Count 16.6 10^3/uL (4.8-10.8)
[2025-05-06 06:36] LABS: Blood Urea Nitrogen 44 mg/dl (9-20); Calcium 7.9 mg/dl (8.4-10.2); Carbon Dioxide 29 mmol/L (22-30); Chloride 99 mmol/L (98-107); Estimated Creatinine Clearance 19 ml/min; Glucose 128 mg/dl (70-99); Potassium 3.6 mmol/L (3.5-5.1); Sodium 136 mmol/L (135-145); eGFR 14.24
--- NOTE | 2025-05-06 06:39 | W.PN.UPDATE ---
Update Note
Progress Note Update
RN reported HR 120'-130's, sinus tachycardia, 114/68, asymptomatic, patient does feel warm as well, refused rectal temperature, axillary 98.0. RN gave Tylenol and patient HR return to 90 NSR. 5 hours later HR 120's 130's on monitor shows
Aflutter,113/56 IV lopressor 2.5 mg given once. Stayed NSR 90's for one hour then went back to A flutter which did not last long and is now back to NSR. Advise to take EKG.
--- NOTE | 2025-05-06 07:13 | W.PN.HOSP.TC ---
Addendum entered and electronically signed by Tai Gan DO 05/06/25 13:48:
Spoke with pharmacy about increasing dose of oxycodone. Concerns about cumulative toxicity with end-stage renal disease. Will hold off on dose escalation and reassess tomorrow, consider increasing to 30 mg oxycodone if needed then
Original Note:
Today's Communication/Plan
-
;/
Assessment / Plan
Assessment / Plan
Assessment/plan
#Discitis and osteomyelitis at L1-2
-Lumbar MRI- At the L1-2 level, there is increased T2 and STIR signal within the disc space, and the disc space is widened. There is abnormal decreased T1 and increased T2 and STIR signal throughout the L1 and L2 vertebral bodies, and there is
interval destruction of the anterior-inferior endplate of L1. There is also intermediate T1 and heterogeneous predominantly increased T2-weighted signal within the paraspinal soft tissues. Findings are compatible with discitis and osteomyelitis,
with paraspinal inflammation and probable paraspinal abscesses.
Of note, there is no evidence for epidural abscess. No evidence for significant epidural extension of inflammatory process/phlegmon.
-ESR/CRP elevated
-Blood cultures Enterococcus species
-ID following
-Continue on empiric ampicillin and ceftriaxone.
-Pain medication with oxycodone
-Neurosurgery input- 'Nothing surgical on the MRI'
-Echocardiogram-No evidence of vegetation, consider LISA if clinically indicated
#Prolonged bleeding at AV fistula
-Increased bleeding episode after hemodialysis
-Likely in the setting of anticoagulation and antiplatelet therapy
-AV U/S showed 'Patent right upper extremity AV fistula was multiple aneurysmal areas of dilation. Flow volumes range from 983 mL/m to 1829 mL/min, more than sufficient for achieving adequate hemodialysis. The distal outflow vein may be somewhat
compressed by adjacent aneurysmal area'.
-Vascular consulted, input appreciated. 'Fistula on exam is patent but pulsatile'
-For fistulogram after medical optimization.
#End-stage renal disease on HD
-Nephrology consulted, input appreciated
-non-tunneled catheter placed
-HD session 05/03, 05/05
#Acute blood loss anemia likely secondary to hemorrhage of AVF and recently placed temporary dialysis access.
-s/p 1 unit of PRBC
-Hgb stable
-Monitor CBC
#Uncontrolled hypertension in the setting of ESRD
-Labetalol 10 mg IV as needed
-Continue home Norvasc
-Optimal pain control of lower back as may be contributing to elevated blood pressure readings
-Monitor BP.
#Abdominal discomfort secondary to constipation
-CXR abdomen�nonobstructive bowel gas pattern. Moderate colonic stool burden
-Laxatives
#Atrial flutter with RVR- new
#History of paroxysmal atrial fibrillation on Eliquis
-Cardiology following
-Increase Toprol to 12.5 mg twice daily to help with heart rate
-Consider retrial of amiodarone. Although was previously stopped due to LFTs and CIMS.
-Anticoagulation with Eliquis currently on hold
#T2DM
-Coverage with SSIs
-A1C 4.9 03/16/2025
#CAD
-On Plavix
#Oral Candidiasis
-Nystatin
CODE STATUS; full code
DVT PPX - SCDs,
Anticipated Discharge: > 48 hours
Subjective/Interval History
-
Patient seen and examined at bedside today. Reports being uncomfortable due to lower back pain. States pain has improved compared to 2 days ago.
Objective Data
-
Labs:
Laboratory Results
05/06/25
05:39
WBC 16.6 H
Hgb 8.6 L
Hct 26.1 L
Plt Count 326
Sodium 136
Potassium 3.6
Chloride 99
Carbon Dioxide 29
BUN 44 H
Creatinine 4.3 H*
Glucose 128 H
Calcium 7.9 L
Vital Signs:
Vital Signs
Temp Pulse Resp BP Pulse Ox
98 F 126 18 113/56 97
05/06/25 03:05 05/06/25 03:40 05/06/25 03:05 05/06/25 03:40 05/06/25 03:05
I&O
05/05/25 05/06/25 05/07/25
06:59 06:59 06:59
Intake Total 480 / 480 600 / 600
Output Total 325 / 325 175 / 175
Balance 155 / 155 425 / 425
Review of Systems
-
All other systems: Reviewed and negative (Except as documented)
Physical Exam
-
General: No Apparent Distress
HEENT: Thrush
Respiratory: Clear to Auscultation; Negative Wheezes or Rales
Cardiac: S1/S2 and Irregular Rhythm
GI: Soft, Nondistended and Normal Bowel Sounds
Musculoskeletal: Other (Moderate tenderness to palpation of lower back, spinal area)
Neuro: Awake, Alert, Oriented and AO x 3
Psych: Calm
[2025-05-06 07:16] VITALS: BP 142/64
[2025-05-06 07:41] LABS: Glucose - Point of Care 143 mg/dl (70-99)
[2025-05-06] MEDS: TOPROL XL 12.5 MG PO ×2 (08:16→19:10)
[2025-05-06] MEDS: RITALIN 30 MG PO (08:16)
[2025-05-06] MEDS: MYCOSTATIN ORAL SUSPENSION 5 ML PO ×4 (08:16→21:17)
[2025-05-06] MEDS: LIDOCAINE 4% PATCH 1 PATCH TOPICAL (08:16)
[2025-05-06] MEDS: ZETIA 10 MG PO (08:17)
[2025-05-06] MEDS: PLAVIX 75 MG PO (08:17)
[2025-05-06] MEDS: NORVASC 5 MG PO ×2 (08:17→19:11)
[2025-05-06] MEDS: COLACE 100 MG PO ×2 (08:17→19:11)
[2025-05-06] MEDS: ROXICODONE 20 MG PO ×2 (08:17→17:06)
[2025-05-06] MEDS: ZOLOFT 100 MG PO ×2 (08:17→19:11)
[2025-05-06] MEDS: NOVOLOG FLEXPEN-LOW RESISTANCE SC ×2 (08:19→17:04)
[2025-05-06 09:23] LABS: Erythrocyte Sed Rate 92 mm/hour (0-20)
[2025-05-06] MEDS: AMPICILLIN 108 MG IV ×2 (09:42→21:15)
--- NOTE | 2025-05-06 10:38 | PTCARENOTE ---
pt switching between nsr and rapid heart rate/ aflutter rate 130's. pt will return to nsr without meds. cardiac BORDERER at bedside made aware
[2025-05-06 11:09] VITALS: BP 117/55
[2025-05-06 11:16] LABS: Glucose - Point of Care 285 mg/dl (70-99)
[2025-05-06] MEDS: NOVOLOG FLEXPEN-LOW RESISTANCE 3 UNITS SC (11:17)
--- NOTE | 2025-05-06 11:58 | W.PN.UPDATE ---
Update Note
Progress Note Update
MRi reviewed
There is OM/Discitis at L1/2. There is prior instrumented fusion
I do not appreciate any epidural abscess that requires surgery
Recommend to continue Antibiotics for enterococcus
full consult to follow likely tomorrow
[2025-05-06] MEDS: ROXICODONE 10 MG PO ×2 (12:26→21:13)
--- NOTE | 2025-05-06 12:35 | W.PN.NEPH.PH ---
Today's Communication / Plan
-
HD tomorrow
Assessment/Plan
-
Impression:
AV fistula bleed
Leukocytosis/Enterococcus faecalis bacteremia obtained from blood cultures from dialysis earlier this week
ESRD MWF, [facility]
A-fib
DM2
CAD/CABG
Anemia
PAD
RUE AVF/ligated LUE AVG
Hyperphosphatemia
HTN
Diabetic neuropathy
Secondary hyperparathyroidism
Plan:
HD tomorrow via temporary catheter
neurosurgery eval
will need LISA
continue abx for Efaecalis
-
-
Date of Service: May 06, 2025
CC / HPI / ROS
-
Chief Complaint:
ESRD
History of Present Illness:
ESRD on Saturday schedule
tolerated HD yesterday
Hemodynamically stable
Remains on ampicillin for Enterococcus faecalis bacteremia
back pain modestly controlled
Review of Systems:
Temp IJ cath
No fevers
No chest pain or shortness of breath
Severe lower back pain
Labs
-
Labs:
WBC 16.6 10^3/uL (4.8-10.8) H 05/06/25 05:39
RBC 2.76 10^6/uL (4.70-6.10) L 05/06/25 05:39
Hgb 8.6 g/dL (13.0-18.0) L 05/06/25 05:39
Hct 26.1 % (39.0-52.0) L 05/06/25 05:39
Plt Count 326 10^3/uL (130-400) 05/06/25 05:39
Sodium 136 mmol/L (135-145) 05/06/25 05:39
Potassium 3.6 mmol/L (3.5-5.1) 05/06/25 05:39
Chloride 99 mmol/L (98-107) 05/06/25 05:39
Carbon Dioxide 29 mmol/L (22-30) 05/06/25 05:39
BUN 44 mg/dl (9-20) H 05/06/25 05:39
Creatinine 4.3 mg/dL (0.7-1.3) H* 05/06/25 05:39
eGFR 14.24 05/06/25 05:39
Glucose 128 mg/dl (70-99) H 05/06/25 05:39
Calcium 7.9 mg/dl (8.4-10.2) L 05/06/25 05:39
Albumin 4.2 g/dl (3.5-5.0) 05/02/25 23:09
Physical Exam
-
Vital Signs:
Vital Signs
Temp Pulse Resp BP Pulse Ox
98.5 F 63 16 117/55 96
05/06/25 11:09 05/06/25 11:09 05/06/25 11:09 05/06/25 11:09 05/06/25 11:09
Cardiovascular:: Regular rate and rhythm
Respiratory:: Bilateral: Coarse
Lung Excursion:: Normal
Abdomen:: Nontender and Soft
Bowel Sounds:: Normal
Extremity Edema:: None: Bilateral:
--- NOTE | 2025-05-06 14:21 | W.PN.CARDCBS ---
Addendum entered and electronically signed by Harman Peña DO 05/06/25 18:10:
I saw and examined the patient.
The [employer] Emission Automobile Designer's note was reviewed and I agree with the note.
Comment:
Plan:
Paroxysmal of atrial flutter but remains normal sinus rhythm.
Toprol has been increased to 12.5 mg twice daily to help with heart rate and hypertension.
Lopressor IV prn
Could consider retrial of amiodarone if he has recurrence of paroxysmal atrial flutter.
Amiodarone was previously stopped due to elevated LFTs, change in mental status, second degree AV block.
Eliquis currently on hold with bleeding. Resume when okay with vascular
Continue Plavix
Eventual reevaluation with electrophysiology to consider ablation once he has recovered.
Echo 05/05/2025: EF 50 to 55%, no WMA, mild concentric LVH, no significant valve disease, no evidence of vegetation, but consider LISA if clinically indicated
ID following and treating bacteremia
Neurosurgery evaluating discitis/osteomyelitis lumbar spine
Volume management through hemodialysis
Original Note:
Today's Communication / Plan
-
Added Lopressor 5 mg IV q 4 hours PRN
Impression / Plan
-
PCP: Placido Lora MD
CDY: Tai Serra MD
Impression:
Bleeding from LUE fistula
Acute on chronic anemia of chronic disease
Sepsis
Enterococcus bacteremia
Osteomyelitis/discitis of L1-L2
Parox afib/typical aflutter on chronic Eliquis
CAD
-PCI LAD 2005
-CABGx3 2009
-PCI VG to OM 09/2023
-s/p PCI ISR VG to OM 11/03/24
HTN
HLD
RBBB
Chronic HFpEF
ESRD HD MWF
GERD
PAD
DM2
TIA/CVA
Ambulatory dysfunction
Osteoarthritis chronic pain syndrome
BPH
Gout
Depression
Staph bacteremia 01/2024
Right foot wound with abscess status post I&D and debridement 10/2024
ECHO 07/02/24: EF 50 to 55%, mild concentric LVH, no significant valvular disease
Echo 05/05/2025: EF 50 to 55%, no WMA, mild concentric LVH, no significant valve disease, no evidence of vegetation, but consider LISA if clinically indicated
Plan:
-Hospitalist and ID notes reviewed. ID is managing E. faecalis bacteremia with ampicillin 2 g IV every 12 hours and Rocephin 2 g IV every 12 hours
-From a cardiac standpoint patient continues to have paroxysms of A-fib/flutter with RVR on telemetry is reviewed by me 05/06/2025. It sounds as though patient is overall asymptomatic.
-Outpatient dose of Toprol-XL increased to 12.5 mg BID on 05/06/2025. Continue to follow on telemetry, patient previously had Mobitz 1 limiting up titration of Toprol-XL, but so far so good.
-Will add Lopressor 5 mg IV every 4 hours PRN HR greater than 120 for breakthroughs of arrhythmia with RVR
-Outpatient dose of Eliquis 5 mg BID is on hold due to bleeding from fistula site
-Of note patient was previously on amiodarone, but this was stopped due to elevated LFTs 02/2024
-Outpatient dose of Plavix 75 mg daily has been continued for recent PCI of in-stent restenosis of a SVG-OM 11/03/25
HPI: This is a 68 year old male patient with an extensive cardiac PMH of CAD with history of CABGx3 in 2009 and LAD stent, Atrial fib on Eliquis, HTN, ESRD on HD, CML, TIA in 2016 and CVA 2018, PAD with history of left SFA stent in 2016 and NIDDM.
He had been evaluated 04/19/2025 for mental status changes felt to be due to pain medications for chronic back discomfort. He reports a transient fever without recurrence. He had blood cultures drawn during dialysis last week which resulted
positive for Enterococcus. He then had bleeding from his AV fistula causing him to come to the hospital. He also reports continued back discomfort. he was found by imaging to have evidence of osteomyelitis/discitis and is being treated with IV
antibiotics. Neurosurgery has been consulted for evaluation in addition. Cardiology consulted as patient noted to be tachycardic earlier today with associated feeling of 'panic attack'. He denies symptoms of chest pain, shortness of breath,
palpitations. He is chronically on plavix, Eliquis as well as Toprol 12.5 mg daily. He had previously been on amiodarone in 2023, however then had altered mental status and elevated liver function tests and amiodarone was discontinued.
Progress Note - [employer] Professor
Subjective
Date of Service: May 06, 2025
He has intense back pain with nay kind of movement
Objective
Labs:
05/06/25 05:39
05/06/25 05:39
Labs
Hgb 8.6 g/dL (13.0-18.0) L 05/06/25 05:39
Hct 26.1 % (39.0-52.0) L 05/06/25 05:39
Plt Count 326 10^3/uL (130-400) 05/06/25 05:39
PT 16.9 Sec (11.4-14.6) H 05/03/25 07:46
INR 1.35 05/03/25 07:46
Sodium 136 mmol/L (135-145) 05/06/25 05:39
Potassium 3.6 mmol/L (3.5-5.1) 05/06/25 05:39
BUN 44 mg/dl (9-20) H 05/06/25 05:39
Creatinine 4.3 mg/dL (0.7-1.3) H* 05/06/25 05:39
Glucose 128 mg/dl (70-99) H 05/06/25 05:39
Vital Signs and I&O:
Vital Signs
Temp Pulse Resp BP Pulse Ox
98.5 F 63 16 117/55 96
05/06/25 11:09 05/06/25 11:09 05/06/25 11:09 05/06/25 11:09 05/06/25 11:09
Vital Signs
Temp Pulse Resp BP Pulse Ox
98.5 F 63 16 117/55 96
05/06/25 11:09 05/06/25 11:09 05/06/25 11:09 05/06/25 11:09 05/06/25 11:09
Intake & Output
05/04/25 05/05/25 05/06/25 05/07/25
06:59 06:59 06:59 06:59
Intake Total 620 / 620 480 / 480 600 / 600
Output Total 150 / 150 325 / 325 175 / 175
Balance 470 / 470 155 / 155 425 / 425
Physical Exam
Physical Exam
GEN: NAD. AAO x3
HEENT: EOMI
LUNGS: No audible wheeze, on RA
CV: Atrial flutter on tele check
[2025-05-06 15:02] VITALS: BP 161/61
--- NOTE | 2025-05-06 15:53 | CM ---
Pt is not willing to return to [facility]. [facility] is aware that he will not be returning.
Referrals to be sent to [facility] and [facility] for onsite dialysis in SNF.
--- NOTE | 2025-05-06 16:06 | CM ---
CM following for discharge planning. Pt has been refusing therapy due to his back pain. Referrals sent to [facility] where he can get his dialysis.
Plan: Transfer to SNF with onsite dialysis when medically stable.
[2025-05-06 16:30] LABS: Glucose - Point of Care 131 mg/dl (70-99)
--- NOTE | 2025-05-06 17:49 | W.PN.ID1 ---
Date of Service
Date of Service: May 06, 2025
Today's Communication
Continue antibiotics.
Assessment / Plan
Leukocytosis
Low back pain with suspected discitis / vertebral osteomyelitis
Bacteremia with E. faecalis
Constipation / obstipation
Elevated ESR
Elevated CRP
pA-fib
CML
COPD
Hx CVA
HTN
HLD
DM type II
CAD; Hx [place]
ESRD�HD
Obesity
Recommendations:
Blood cultures here with E. faecalis.
MRI findings compatible with discitis and osteomyelitis at L1-2. Possible paraspinal inflammation also noted.
TTE nondiagnostic. Will likely need LISA.
Continue ampicillin and ceftriaxone
Follow white count and temperature curve.
Follow serial blood cultures to assess clearance.
����������������������������������������������������������
Chief Complaint
-: Bacteremia
Subjective / Review of Systems
Patient seen and examined. Reports some improvement in low back pain.
Review of Systems: No Fever and No Chills
Vital Signs / Physical Exam
Vital Signs
Vital Signs
Temp Pulse Resp BP Pulse Ox
98.0 F 88 17 161/61 98
05/06/25 15:02 05/06/25 15:02 05/06/25 15:02 05/06/25 15:02 05/06/25 15:02
Physical Exam
Constitutional: Chronically Ill, Non-toxic and Other (Mild discomfort secondary to back pain)
Eyes: No Conjunctival Hemorrhage and Sclera Anicteric
Cardiovascular: S1/S2; Negative S3/S4
Pulmonary: Non Labored
Gastrointestinal: Soft and Non Tender
Musculoskeletal: Spinal Tenderness
Neurological: Awake and Alert
Psychological: Calm
Objective Data
Lab Data
Lab Results
05/06/25 05:39
05/06/25 05:39
ESR 92 mm/hour (0-20) H 05/06/25 05:39
PT 16.9 Sec (11.4-14.6) H 05/03/25 07:46
INR 1.35 05/03/25 07:46
Estimated Creat Clear 19 ml/min 05/06/25 05:39
Lactic Acid 0.7 mmol/L (0.7-2.0) 05/02/25 23:37
Total Bilirubin 0.6 mg/dl (0.2-1.3) 05/02/25 23:09
AST 21 U/L (17-59) 05/02/25 23:09
ALT < 10 U/L (0-50) 05/02/25 23:09
Alkaline Phosphatase 157 U/L (38-126) H 05/02/25 23:09
C-Reactive Protein 63.00 mg/L (0.0-10.00) H 05/06/25 05:39
Most recent labs reviewed.
Micro Results:
05/03/25 11:43 Blood Culture - Final
Blood/Venous Enterococcus faecalis
Gram Stain - Final
05/03/25 11:02 Blood Culture - Final
Blood/Venous Enterococcus faecalis
Gram Stain - Final
05/03/25 00:14 Blood Culture - Preliminary
Blood/Venous Enterococcus faecalis
Gram Stain - Preliminary
05/05/25 08:41 Blood Culture - Preliminary
Blood/Venous No Growth in 24 hours- Final report to follow
05/05/25 07:28 Blood Culture - Preliminary
Blood/Venous No Growth in 24 hours- Final report to follow
05/02/25 23:37 Blood Culture - Preliminary
Blood/Venous No Growth in 72 hours- Final report to follow
05/03/25 06:19 MRSA Screen - Final
Nose No Methicillin Resistant Staphylococcus aureus isolated.
Imaging:
05/05/2025 ECHO (TTE): Technically difficult study. EF approximately 50%. No evidence of vegetation but consider LISA if clinically indicated. See full dictation for additional detail.
05/03/2025 CT abdomen/pelvis without contrast: Moderate colonic stool burden without evidence of obstruction. Prior L1-L5 posterior spinal fusion noted. There are endplate irregularities with mild surrounding paraspinal soft tissue
thickening/stranding at the L1-L2 intervertebral space which is concerning for discitis or osteomyelitis. A dedicated MRI with and without contrast may be considered as clinically indicated.
[2025-05-06 19:14] VITALS: BP 183/88
[2025-05-06] MEDS: LIPITOR 80 MG PO (21:14)
[2025-05-06] MEDS: SENOKOT PO ×2 (21:14→22:39)
[2025-05-06] MEDS: MELATONIN 5 MG PO (21:14)
--- NOTE | 2025-05-06 21:45 | PTCARENOTE ---
Patient c/o moderate- severe back pain. Patient had oxy 20mg/ Flexeril 10mg at 17:06 which will not be due until 01:06. Patient is asking for more pain med. MARIYA Johansen made aware. See MAR for new orders.
[2025-05-06 22:05] LABS: Glucose - Point of Care 205 mg/dl (70-99)
[2025-05-06 23:00] VITALS: BP 179/84
[2025-05-07] VITALS (8 sets, daily range): BP systolic 156–187; BP diastolic 70–91; BMI 25.3
[2025-05-07] MEDS: FLEXERIL 10 MG PO ×4 (01:05→21:08)
[2025-05-07] MEDS: ROXICODONE 20 MG PO ×2 (01:06→09:58)
[2025-05-07] MEDS: TRANDATE 10 MG IV (03:31)
[2025-05-07] MEDS: ROCEPHIN 2000 MG IV ×2 (04:59→18:06)
[2025-05-07] MEDS: STERILE WATER FOR INJECTION 20 ML IV ×2 (04:59→18:06)
--- NOTE | 2025-05-07 07:11 | W.PN.HOSP.TC ---
Today's Communication/Plan
-
;/
Assessment / Plan
Assessment / Plan
Assessment/plan
#Discitis and osteomyelitis at L1-2
-Lumbar MRI- At the L1-2 level, there is increased T2 and STIR signal within the disc space, and the disc space is widened. There is abnormal decreased T1 and increased T2 and STIR signal throughout the L1 and L2 vertebral bodies, and there is
interval destruction of the anterior-inferior endplate of L1. There is also intermediate T1 and heterogeneous predominantly increased T2-weighted signal within the paraspinal soft tissues. Findings are compatible with discitis and osteomyelitis,
with paraspinal inflammation and probable paraspinal abscesses.
Of note, there is no evidence for epidural abscess. No evidence for significant epidural extension of inflammatory process/phlegmon.
-ESR/CRP elevated
-Blood cultures Enterococcus species
-ID following
-Continue on empiric ampicillin and ceftriaxone.
-Pain medication with oxycodone
-Neurosurgery input- 'Nothing surgical on the MRI'
-Echocardiogram-No evidence of vegetation, consider LISA if clinically indicated
#Prolonged bleeding at AV fistula
-Increased bleeding episode after hemodialysis
-Likely in the setting of anticoagulation and antiplatelet therapy
-AV U/S showed 'Patent right upper extremity AV fistula was multiple aneurysmal areas of dilation. Flow volumes range from 983 mL/m to 1829 mL/min, more than sufficient for achieving adequate hemodialysis. The distal outflow vein may be somewhat
compressed by adjacent aneurysmal area'.
-Vascular consulted, input appreciated. 'Fistula on exam is patent but pulsatile'
-For fistulogram after medical optimization.
#End-stage renal disease on HD
-Nephrology consulted, input appreciated
-non-tunneled catheter placed
-HD session 05/03, 05/05, 05/07
#Acute blood loss anemia likely secondary to hemorrhage of AVF and recently placed temporary dialysis access.
-s/p 1 unit of PRBC
-Hgb stable
-Monitor CBC
#Uncontrolled hypertension in the setting of ESRD
-Labetalol 10 mg IV as needed
-Continue home Norvasc
-Optimal pain control of lower back as may be contributing to elevated blood pressure readings
-Monitor BP.
#Abdominal discomfort secondary to constipation
-CXR abdomen�nonobstructive bowel gas pattern. Moderate colonic stool burden
-Laxatives
#Atrial flutter with RVR- new
#History of paroxysmal atrial fibrillation on Eliquis
-Cardiology following
-Increased Toprol to 12.5 mg twice daily for rate control
-Consider retrial of amiodarone. Although was previously stopped due to LFTs and change in mental status.
-Anticoagulation with Eliquis currently on hold
#T2DM
-Coverage with SSIs
-A1C 4.9 03/16/2025
#CAD
-On Plavix
#Oral Candidiasis
-Nystatin
CODE STATUS; full code
DVT PPX - SCDs,
Anticipated Discharge: > 48 hours
Subjective/Interval History
-
Patient seen and examined at bedside. Currently on HD. Still complains of pain despite higher dosage of pain medication. Reports he has been having decreased sleep. Otherwise no other acute complaint. Denies chest pain, palpitations
Objective Data
-
Labs:
Laboratory Results
05/07/25
07:00
WBC Pending
Hgb Pending
Hct Pending
Plt Count Pending
Sodium Pending
Potassium Pending
Chloride Pending
Carbon Dioxide Pending
Vital Signs:
Vital Signs
Temp Pulse Resp BP Pulse Ox
98.9 F 80 16 178/82 98
05/07/25 03:00 05/07/25 03:31 05/07/25 03:00 05/07/25 04:58 05/07/25 03:00
I&O
05/06/25 05/07/25 05/08/25
06:59 06:59 06:59
Intake Total 600 / 600 1140 / 1140
Output Total 175 / 175 750 / 750
Balance 425 / 425 390 / 390
Review of Systems
-
All other systems: Reviewed and negative (Except as documented)
Physical Exam
-
General: Appears Chronically Ill
HEENT: Thrush
Respiratory: Clear to Auscultation; Negative Wheezes or Rales
Cardiac: Regular Rhythm and S1/S2
GI: Soft, Nondistended and Normal Bowel Sounds
Musculoskeletal: Other (Moderate tenderness to palpation of lower back, spinal area)
Neuro: Awake, Alert, Oriented and AO x 3
Psych: Calm
[2025-05-07 07:43] LABS: Glucose - Point of Care 155 mg/dl (70-99)
[2025-05-07] MEDS: LIDOCAINE 4% PATCH 1 PATCH TOPICAL (08:08)
[2025-05-07] MEDS: RITALIN PO (08:09)
[2025-05-07] MEDS: MYCOSTATIN ORAL SUSPENSION 5 ML PO ×4 (08:09→21:08)
[2025-05-07] MEDS: TYLENOL 650 MG PO ×3 (08:13→21:08)
[2025-05-07] MEDS: COLACE 100 MG PO ×2 (08:14→21:08)
[2025-05-07] MEDS: ZOLOFT 100 MG PO ×2 (08:17→21:08)
[2025-05-07 08:19] LABS: % Basophils 0.2 % (0-2); % Eosinophils 3.9 % (0-6); % Immature Granulocytes 0.9 % (0-0.5); % Lymphocytes 10.2 % (20.5-51.1); % Monocytes 8.7 % (1.7-9.3); % Neutrophils 76.1 % (42.2-75.2); Absolute Eosinophils 0.7 10^3/uL (0-0.7); Absolute Immature Granulocytes 0.2 10^3/uL (0-0.05); Absolute Lymphocytes 1.9 10^3/uL (1.2-3.4); Absolute Monocytes 1.6 10^3/uL (0.1-0.6); Absolute Neutrophils 13.8 10^3/uL (1.4-6.5); Hematocrit 25.9 % (39.0-52.0); Hemoglobin 8.6 g/dL (13.0-18.0); Mean Corp Hgb Conc. 33.2 g/dL (33.0-37.0); Mean Corpuscular Hgb 31.9 pg (27.0-31.0); Mean Corpuscular Volume 95.9 fL (80.0-94.0); Mean Platelet Volume 9.9 fL (7.4-10.4); Nucleated Red Blood Cells % 0 % (-); Platelet Count 332 10^3/uL (130-400); Red Cell Dist. Width 14.4 % (11.5-14.5); White Blood Cell Count 18.1 10^3/uL (4.8-10.8)
[2025-05-07] MEDS: NOVOLOG FLEXPEN-LOW RESISTANCE 1 UNITS SC ×2 (08:21→17:55)
[2025-05-07] MEDS: PLAVIX 75 MG PO (08:23)
[2025-05-07] MEDS: RETACRIT 8000 UNITS IV (08:52)
[2025-05-07 09:11] LABS: Carbon Dioxide 27 mmol/L (22-30); Chloride 97 mmol/L (98-107); Magnesium 3.2 mg/dl (1.6-2.3); Potassium 3.7 mmol/L (3.5-5.1); Sodium 135 mmol/L (135-145)
--- NOTE | 2025-05-07 09:27 | W.PN.ID1 ---
Date of Service
Date of Service: May 07, 2025
Today's Communication
Continue abx.
Assessment / Plan
Leukocytosis
Low back pain with suspected discitis / vertebral osteomyelitis
Bacteremia with E. faecalis
Constipation / obstipation
Elevated ESR
Elevated CRP
pA-fib
CML
COPD
Hx CVA
HTN
HLD
DM type II
CAD; Hx [place]
ESRD�HD
Obesity
Recommendations:
Blood cultures here with E. faecalis.
MRI findings compatible with discitis and osteomyelitis at L1-2. Possible paraspinal inflammation also noted.
TTE nondiagnostic. may consider LISA, although will not chage duration of therapy (6 weeks)
Continue ampicillin and ceftriaxone
Follow white count and temperature curve.
Follow serial blood cultures to assess clearance. Rpt blood cultures ordered today.
����������������������������������������������������������
Chief Complaint
-: Bacteremia
Subjective / Review of Systems
Patient seen and examined. Notes not sleeping well last evening secondary to intermittent pain.
Review of Systems: No Fever and No Chills
Vital Signs / Physical Exam
Vital Signs
Vital Signs
Temp Pulse Resp BP Pulse Ox
97.7 F 76 18 187/86 100
05/07/25 07:50 05/07/25 07:50 05/07/25 07:50 05/07/25 07:50 05/07/25 07:50
Physical Exam
Constitutional: Chronically Ill, Non-toxic and Other (Mild discomfort secondary to back pain)
Eyes: No Conjunctival Hemorrhage and Sclera Anicteric
Cardiovascular: S1/S2; Negative S3/S4
Pulmonary: Non Labored
Gastrointestinal: Soft and Non Tender
Musculoskeletal: Spinal Tenderness
Neurological: Awake and Alert
Psychological: Calm
Lines: HD Cath (left IJ temp actheter in place)
Objective Data
Lab Data
Lab Results
05/07/25 07:25
05/07/25 07:25
ESR 92 mm/hour (0-20) H 05/06/25 05:39
PT 16.9 Sec (11.4-14.6) H 05/03/25 07:46
INR 1.35 05/03/25 07:46
Estimated Creat Clear 19 ml/min 05/06/25 05:39
Lactic Acid 0.7 mmol/L (0.7-2.0) 05/02/25 23:37
Total Bilirubin 0.6 mg/dl (0.2-1.3) 05/02/25 23:09
AST 21 U/L (17-59) 05/02/25 23:09
ALT < 10 U/L (0-50) 05/02/25 23:09
Alkaline Phosphatase 157 U/L (38-126) H 05/02/25 23:09
C-Reactive Protein 63.00 mg/L (0.0-10.00) H 05/06/25 05:39
Most recent labs reviewed.
Micro Results:
05/05/25 08:41 Blood Culture - Preliminary
Blood/Venous No Growth in 48 hours- Final report to follow
05/05/25 07:28 Blood Culture - Preliminary
Blood/Venous No Growth in 48 hours- Final report to follow
05/02/25 23:37 Blood Culture - Preliminary
Blood/Venous No Growth in 4 days- Final report to follow
05/03/25 11:43 Blood Culture - Final
Blood/Venous Enterococcus faecalis
Gram Stain - Final
05/03/25 11:02 Blood Culture - Final
Blood/Venous Enterococcus faecalis
Gram Stain - Final
05/03/25 00:14 Blood Culture - Preliminary
Blood/Venous Enterococcus faecalis
Gram Stain - Preliminary
05/03/25 06:19 MRSA Screen - Final
Nose No Methicillin Resistant Staphylococcus aureus isolated.
Imaging:
05/05/2025 ECHO (TTE): Technically difficult study. EF approximately 50%. No evidence of vegetation but consider LISA if clinically indicated. See full dictation for additional detail.
05/03/2025 CT abdomen/pelvis without contrast: Moderate colonic stool burden without evidence of obstruction. Prior L1-L5 posterior spinal fusion noted. There are endplate irregularities with mild surrounding paraspinal soft tissue
thickening/stranding at the L1-L2 intervertebral space which is concerning for discitis or osteomyelitis. A dedicated MRI with and without contrast may be considered as clinically indicated.
[2025-05-07] MEDS: MANNITOL 25% 12.5 GRAMS IV (09:35)
[2025-05-07] MEDS: FLEXBUMIN 25% FOR HEMODIALYSIS 12.5 GRAMS IV (09:39)
--- NOTE | 2025-05-07 10:09 | W.PN.NEPH.HD ---
Assessment
-
Patient seen on HD
sbp 115 at current u/f
repeat blood cultures (peripheral done)
Ampicillin on board
Progress Note - Hemodialysis
-
Date of Service: May 07, 2025
Duration: 30 minutes and 3 hours
Potassium Bath: 3
Calcium Bath: 2.5
Opti-Dialyzer: 160
Ultrafiltration: Other (2.5kg)
Blood Flow: 400
Dialysate Flow: 600
Heparin: none
EPO: 8000
[2025-05-07 11:07] LABS: COVID-19 Antigen Negative (Negative)
[2025-05-07] MEDS: HEPARIN 2500 UNITS INTRACATH (11:43)
[2025-05-07 11:52] LABS: Glucose - Point of Care 221 mg/dl (70-99)
[2025-05-07] MEDS: NORVASC 5 MG PO ×2 (13:09→21:09)
[2025-05-07] MEDS: ZETIA 10 MG PO (13:09)
[2025-05-07] MEDS: TOPROL XL 12.5 MG PO (13:12)
[2025-05-07] MEDS: NOVOLOG FLEXPEN-LOW RESISTANCE 2 UNITS SC (13:14)
[2025-05-07] MEDS: AMPICILLIN 108 MG IV ×2 (13:18→21:09)
--- NOTE | 2025-05-07 13:24 | CON.NS ---
Consultation
-
Date/Time Consultation Performed: 05/07/25
Chief Complaint
-
back pain
History of Present Illness
Is a 70-year-old male admitted initially for bleeding from his AV fistula site. He was found to have a high white count as well as complaints of back pain. Ultimately imaging showed osteomyelitis discitis at L1-2. He had positive blood cultures
for Enterococcus and has been placed on appropriate antibiotics. Denies any weakness into his upper or lower extremities. Complains of severe amounts of back pain with movement. He notes an infected foot. He states that he had lumbar fusion
operation x 2. Most recent being in [address] Murcia. This appears to have been at the L1-2 level with a unilateral instrumented fusion and connection to a prior existing instrumented fusion.
Review of Systems
-
10 point review of systems negative except stated in HPI
Medication and Allergies
Home Medications
Home Medications
�Medication �Instructions �Recorded
melatonin 5 mg tablet 5 mg PO HSPRN PRN sleep 04/06/19
atorvastatin 80 mg tablet 80 mg PO HS High cholesterol 01/25/21
clopidogrel 75 mg tablet (Plavix) 75 mg PO DAILY Blood Clot 02/19/24
Prevention/Tx
coQ10 (ubiquinol) 200 mg capsule 200 mg PO DAILY Supplement 02/19/24
semaglutide 0.25 mg or 0.5 mg (2 0.25 mg SC GRIMM Diabetes 02/19/24
mg/3 mL) subcutaneous pen injector
(Ozempic)
sertraline 100 mg tablet 100 mg PO BID depression/anxiety 02/19/24
vitamin B complex-vitamin C-folic 1 tab PO MOWEFR Supplement 02/19/24
acid 0.8 mg tablet (Nephro-Michelle)
amlodipine 2.5 mg tablet 2.5 mg PO BID #60 tabs 02/28/24
apixaban 5 mg tablet (Eliquis) 5 mg PO BID #60 tabs 02/28/24
acetaminophen 325 mg tablet 650 mg PO Q4HPRN PRN mild 05/25/24
pain/fever >100
albuterol sulfate 90 mcg/actuation 2 puff inhalation R Q4HPRN PRN sob 05/25/24
aerosol inhaler
methylphenidate HCl 10 mg tablet 30 mg PO DAILY ADHD 07/07/24
metoprolol succinate 25 mg 12.5 mg PO DAILY Heart 09/23/24
tablet,extended release 24 hr Disease/Condition
ascorbic acid (vitamin C) 500 mg 500 mg PO DAILY Supplement 11/03/24
tablet (Vitamin C)
ezetimibe 10 mg tablet (Zetia) 10 mg PO DAILY High Cholesterol #0 11/04/24
tabs
aripiprazole 2 mg tablet (Abilify) 2 mg PO DAILY Mental Health/Anxiety 03/15/25
Held on 04/19/25.
Instructions: Hold till
follow up with PCP
loperamide 2 mg tablet 2 mg PO TIDPRN PRN diarrhea 03/15/25
calcium acetate 667 mg PO TIDWMEAL Kidney Disease 04/14/25
midodrine 5 mg tablet 5 mg PO Q4HPRN PRN SBP<100 #0 tabs 04/19/25
polyethylene glycol 3350 17 gram 17 g PO DAILYPRN PRN constipation 04/19/25
oral powder packet #0 ea
Enema Disposable 1 enema FL DAILY Constipation 05/03/25
bisacodyl 10 mg rectal suppository 10 mg FL DAILY PRN constipation 05/03/25
(Dulcolax (bisacodyl))
docusate sodium 100 mg capsule 100 mg PO BID Constipation 05/03/25
(Colace)
famotidine 10 mg tablet 10 mg PO DAILY Gastrointestinal 05/03/25
Issue
lorazepam 1 mg tablet 1 mg PO DAILY anxiety 05/03/25
magnesium hydroxide 400 mg/5 mL 400 mg PO DAILY PRN constipation 05/03/25
oral suspension (Milk of Magnesia)
mupirocin 2 % topical ointment 1 applic topical DAILY Skin Issues 05/03/25
oxycodone 5 mg tablet 5 mg PO QIDPRN PRN back pain 05/03/25
sennosides 8.6 mg tablet (senna) 17.2 mg PO HS Constipation 05/03/25
Allergies
Allergies
Allergy/AdvReac Type Severity Reaction Status Date / Time
Iodinated Contrast Media Allergy Nausea / Verified 05/02/25 22:24
Vomiting,
'panic
attack'
latex Allergy Itching Verified 05/02/25 22:24
morphine Allergy Itching Verified 05/02/25 22:24
Physical Exam
-
Exam:
Full upper lower extremity strength
Sensory is normal
Reflexes normal
Awake alert and oriented x 3
Cranials 2 through 12 gross intact
No cerebellar findings
Respirations even and unlabored
MRI of the lumbar spine shows osteomyelitis discitis of the L1-2 level. There is no epidural abscess at this level. There is involvement of the bilateral psoas muscles
Problems
-
Problem Status Onset Code
Leukocytosis Acute D72.829
Hemorrhage of arteriovenous fistula Acute T82.838A
Hypertensive urgency Acute I16.0
Assessment / Plan
-
Osteomyelitis discitis
1. Bacteria's been identified to blood cultures. There is no drainable epidural abscess on his MRI. He is neurologically intact. Recommend full course of IV antibiotics and follow-up as an outpatient 6 weeks where we will obtain new imaging to
see if there is any subsequent involvement of his hardware. I do not see any need for any emergent intervention.
2. Pain control
3. Antibiotic course as per infectious disease
4. Neurosurgery to sign off please reconsult as needed
[2025-05-07] MEDS: NEPHROCAP 1 CAPSULE PO (13:28)
--- NOTE | 2025-05-07 16:06 | W.PN.CARDCBS ---
Today's Communication / Plan
-
Resume Eliquis later today
Continue to follow on telemetry for episodes of atrial tachycardia versus atrial flutter
Increase Toprol to 25 mg p.o. twice daily twice daily and watch for episodes of Wenkebach which he has had in the past
Impression / Plan
-
PCP: Placido Lora MD
CDY: Tai Serra MD
Impression:
Bleeding from LUE fistula
Acute on chronic anemia of chronic disease
Sepsis
Enterococcus bacteremia
Osteomyelitis/discitis of L1-L2
Parox afib/typical aflutter on chronic Eliquis
CAD
-PCI LAD 2005
-CABGx3 2009
-PCI VG to OM 09/2023
-s/p PCI ISR VG to OM 11/03/24
HTN
HLD
RBBB
Chronic HFpEF
ESRD HD MWF
GERD
PAD
DM2
TIA/CVA
Ambulatory dysfunction
Osteoarthritis chronic pain syndrome
BPH
Gout
Depression
Staph bacteremia 01/2024
Right foot wound with abscess status post I&D and debridement 10/2024
ECHO 07/02/24: EF 50 to 55%, mild concentric LVH, no significant valvular disease
Echo 05/05/2025: EF 50 to 55%, no WMA, mild concentric LVH, no significant valve disease, no evidence of vegetation, but consider LISA if clinically indicated
Plan:
Continues with episodes of either atrial tachycardia versus atrial flutter
Will increase Toprol to 25 mg p.o. twice daily
Will need to follow-up for Wenkebach which he has had in the past
Discussed with primary service and neurosurgery and plan is to restart Eliquis tonight
Of note patient was previously on amiodarone, but this was stopped due to elevated LFTs 02/2024
Outpatient dose of Plavix 75 mg daily has been continued for recent PCI of in-stent restenosis of a SVG-OM 11/03/24
HPI: This is a 68 year old male patient with an extensive cardiac PMH of CAD with history of CABGx3 in 2009 and LAD stent, Atrial fib on Eliquis, HTN, ESRD on HD, CML, TIA in 2016 and CVA 2018, PAD with history of left SFA stent in 2015 and NIDDM.
He had been evaluated 04/19/2025 for mental status changes felt to be due to pain medications for chronic back discomfort. He reports a transient fever without recurrence. He had blood cultures drawn during dialysis last week which resulted
positive for Enterococcus. He then had bleeding from his AV fistula causing him to come to the hospital. He also reports continued back discomfort. he was found by imaging to have evidence of osteomyelitis/discitis and is being treated with IV
antibiotics. Neurosurgery has been consulted for evaluation in addition. Cardiology consulted as patient noted to be tachycardic earlier today with associated feeling of 'panic attack'. He denies symptoms of chest pain, shortness of breath,
palpitations. He is chronically on plavix, Eliquis as well as Toprol 12.5 mg daily. He had previously been on amiodarone in 2023, however then had altered mental status and elevated liver function tests and amiodarone was discontinued.
Progress Note - Ribbon Inker
Subjective
Date of Service: May 07, 2025
No chest pain or shortness of breath
Objective
Labs:
05/07/25 07:25
05/07/25 07:25
Labs
Hgb 8.6 g/dL (13.0-18.0) L 05/07/25 07:25
Hct 25.9 % (39.0-52.0) L 05/07/25 07:25
Plt Count 332 10^3/uL (130-400) 05/07/25 07:25
PT 16.9 Sec (11.4-14.6) H 05/03/25 07:46
INR 1.35 05/03/25 07:46
Sodium 135 mmol/L (135-145) 05/07/25 07:25
Potassium 3.7 mmol/L (3.5-5.1) 05/07/25 07:25
BUN 44 mg/dl (9-20) H 05/06/25 05:39
Creatinine 4.3 mg/dL (0.7-1.3) H* 05/06/25 05:39
Glucose 128 mg/dl (70-99) H 05/06/25 05:39
Vital Signs and I&O:
Vital Signs
Temp Pulse Resp BP Pulse Ox
97.8 F 84 18 172/78 94
05/07/25 15:12 05/07/25 15:12 05/07/25 15:12 05/07/25 15:12 05/07/25 15:12
Vital Signs
Temp Pulse Resp BP Pulse Ox
97.8 F 84 18 172/78 94
05/07/25 15:12 05/07/25 15:12 05/07/25 15:12 05/07/25 15:12 05/07/25 15:12
Intake & Output
05/05/25 05/06/25 05/07/25 05/08/25
06:59 06:59 06:59 06:59
Intake Total 480 / 480 600 / 600 1140 / 1140
Output Total 325 / 325 175 / 175 750 / 750
Balance 155 / 155 425 / 425 390 / 390
Physical Exam
Physical Exam
General: Well developed, well nourished in NAD.
Neck: Supple, no JVD, HJR, carotids +2 B/L, no bruits bilaterally.
Heart: Non displaced PMI, RRR, no murmurs, No S3, S4, no rubs.
Lungs: Clear to auscultation bilaterally, no wheeze, rhonchi, rubs bilaterally,
normal expiratory phase.
Extremities: No clubbing, cyanosis or edema bilaterally.
Neuro: Grossly nonfocal, awake, alert and oriented x3.
--- NOTE | 2025-05-07 16:06 | W.PN.CARDCBS ---
Addendum entered and electronically signed by Tai Serra MD 05/07/25 16:19:
I saw and examined the patient.
The MICROWAVE SUPERVISOR or PA's note was reviewed and I agree with the note.
Comment: General: Well developed, well nourished in NAD.
Neck: Supple, no JVD, HJR, carotids +2 B/L, no bruits bilaterally.
Heart: Non displaced PMI, RRR, no murmurs, No S3, S4, no rubs.
Lungs: Scattered rhonchi
Extremities: No clubbing, cyanosis or edema bilaterally.
Neuro: Grossly nonfocal, awake, alert and oriented x3.
Will increase Toprol to 25 mg p.o. twice daily given episodes of either atrial tach or atrial flutter on telemetry. Eliquis to be resumed later today. Amiodarone was discontinued in the past due to abnormal LFTs but may have no choice but to
consider restarting it and following LFTs closely. Discussed with primary service and neurosurgery.
Original Note:
Today's Communication / Plan
-
Continue higher dose Toprol 12.5mg BID
Consider addition of amiodarone
Eliquis remains on hold, continue plavix
Hgb stable
continue abx per primary service
Follow up to be arranged
Impression / Plan
-
PCP: Placido Lora MD
CDY: Tai Serra MD
Impression:
Bleeding from LUE fistula
Acute on chronic anemia of chronic disease
Sepsis
Enterococcus bacteremia
Osteomyelitis/discitis of L1-L2
Parox afib/typical aflutter on chronic Eliquis
CAD
-PCI LAD 2005
-CABGx3 2009
-PCI VG to OM 09/2023
-s/p PCI ISR VG to OM 11/03/24
HTN
HLD
RBBB
Chronic HFpEF
ESRD HD MWF
GERD
PAD
DM2
TIA/CVA
Ambulatory dysfunction
Osteoarthritis chronic pain syndrome
BPH
Gout
Depression
Staph bacteremia 01/2024
Right foot wound with abscess status post I&D and debridement 10/2024
ECHO 07/02/2024: EF 50 to 55%, mild concentric LVH, no significant valvular disease
Echo 05/05/2025: EF 50 to 55%, no WMA, mild concentric LVH, no significant valve disease, no evidence of vegetation, but consider LISA if clinically indicated
Plan:
-Admitted with bleeding from AV fistula w/ back discomfort. Being treated for bacteremia and discitis.
-Continue abx per primary service/ID.
-In SR, but still having frequent runs on afib/flutter on tele. Toprol increased this admission to 12.5mg BID. Has not needed IV lopressor, although is ordered PRN.
-Could consider resuming amiodarone if continues to have paroxysms on tele. Previously amiodarone stopped due to elevated LFTs 02/2024
-Continues on Plavix 75mg w/ recent PCI of in-stent restenosis of SVG-OM 10/2025. Eliquis on hold w/ bleeding from fistula site. Hgb stable at 8.6
-BP stable, continue amlodipine.
-Will arrange follow up.
HPI: This is a 68 year old male patient with an extensive cardiac PMH of CAD with history of CABGx3 in 2009 and LAD stent, Atrial fib on Eliquis, HTN, ESRD on HD, CML, TIA in 2016 and CVA 2018, PAD with history of left SFA stent in 2016 and NIDDM.
He had been evaluated 04/19/2025 for mental status changes felt to be due to pain medications for chronic back discomfort. He reports a transient fever without recurrence. He had blood cultures drawn during dialysis last week which resulted
positive for Enterococcus. He then had bleeding from his AV fistula causing him to come to the hospital. He also reports continued back discomfort. he was found by imaging to have evidence of osteomyelitis/discitis and is being treated with IV
antibiotics. Neurosurgery has been consulted for evaluation in addition. Cardiology consulted as patient noted to be tachycardic earlier today with associated feeling of 'panic attack'. He denies symptoms of chest pain, shortness of breath,
palpitations. He is chronically on plavix, Eliquis as well as Toprol 12.5 mg daily. He had previously been on amiodarone in 2023, however then had altered mental status and elevated liver function tests and amiodarone was discontinued.
Progress Note - Bankruptcy Paralegal
Subjective
Date of Service: May 07, 2025
Objective
Labs:
05/07/25 07:25
05/07/25 07:25
Labs
Hgb 8.6 g/dL (13.0-18.0) L 05/07/25 07:25
Hct 25.9 % (39.0-52.0) L 05/07/25 07:25
Plt Count 332 10^3/uL (130-400) 05/07/25 07:25
PT 16.9 Sec (11.4-14.6) H 05/03/25 07:46
INR 1.35 05/03/25 07:46
Sodium 135 mmol/L (135-145) 05/07/25 07:25
Potassium 3.7 mmol/L (3.5-5.1) 05/07/25 07:25
BUN 44 mg/dl (9-20) H 05/06/25 05:39
Creatinine 4.3 mg/dL (0.7-1.3) H* 05/06/25 05:39
Glucose 128 mg/dl (70-99) H 05/06/25 05:39
Vital Signs and I&O:
Vital Signs
Temp Pulse Resp BP Pulse Ox
97.8 F 84 18 172/78 94
05/07/25 15:12 05/07/25 15:12 05/07/25 15:12 05/07/25 15:12 05/07/25 15:12
Vital Signs
Temp Pulse Resp BP Pulse Ox
97.8 F 84 18 172/78 94
05/07/25 15:12 05/07/25 15:12 05/07/25 15:12 05/07/25 15:12 05/07/25 15:12
Intake & Output
05/05/25 05/06/25 05/07/25 05/08/25
06:59 06:59 06:59 06:59
Intake Total 480 / 480 600 / 600 1140 / 1140
Output Total 325 / 325 175 / 175 750 / 750
Balance 155 / 155 425 / 425 390 / 390
[2025-05-07 17:24] LABS: Glucose - Point of Care 159 mg/dl (70-99)
[2025-05-07] MEDS: DILAUDID 4 MG PO (18:04)
[2025-05-07] MEDS: LIPITOR 80 MG PO (21:08)
[2025-05-07] MEDS: TOPROL XL 25 MG PO (21:09)
[2025-05-07] MEDS: ELIQUIS 5 MG PO (21:09)
[2025-05-07] MEDS: SENOKOT 17.2 MG PO (21:09)
[2025-05-07] MEDS: MELATONIN 5 MG PO (21:09)
[2025-05-07] MEDS: FLUSH (NSS) 1 FLUSH IV (21:11)
[2025-05-07 21:41] LABS: Glucose - Point of Care 142 mg/dl (70-99)
[2025-05-08] VITALS (9 sets, daily range): BP systolic 132–195; BP diastolic 50–90
[2025-05-08] MEDS: STERILE WATER FOR INJECTION 20 ML IV ×2 (05:22→17:38)
[2025-05-08] MEDS: ROCEPHIN 2000 MG IV ×2 (05:23→17:38)
--- NOTE | 2025-05-08 06:08 | PTCARENOTE ---
Bed scale is not zeroed properly at this time, unsure of when scale started reading inaccurate weights. Patient refusing to get OOB at this time, have offered multiple different alternatives to standing, like using lift device, patient still
refusing at this time d/t significant pain. Will discuss with trino.
[2025-05-08 06:28] LABS: % Basophils 0.3 % (0-2); % Eosinophils 3.9 % (0-6); % Immature Granulocytes 0.8 % (0-0.5); % Monocytes 10.4 % (1.7-9.3); % Neutrophils 73.6 % (42.2-75.2); Absolute Basophils 0.1 10^3/uL (0-0.2); Absolute Eosinophils 0.7 10^3/uL (0-0.7); Absolute Immature Granulocytes 0.2 10^3/uL (0-0.05); Absolute Lymphocytes 2.1 10^3/uL (1.2-3.4); Hematocrit 27.6 % (39.0-52.0); Hemoglobin 9.3 g/dL (13.0-18.0); Mean Corp Hgb Conc. 33.7 g/dL (33.0-37.0); Mean Corpuscular Hgb 32.1 pg (27.0-31.0); Mean Corpuscular Volume 95.2 fL (80.0-94.0); Mean Platelet Volume 10.1 fL (7.4-10.4); Nucleated Red Blood Cells % 0 % (-); Platelet Count 367 10^3/uL (130-400); Red Cell Dist. Width 14.4 % (11.5-14.5)
[2025-05-08 06:50] LABS: Blood Urea Nitrogen 40 mg/dl (9-20); Calcium 8.5 mg/dl (8.4-10.2); Carbon Dioxide 28 mmol/L (22-30); Chloride 96 mmol/L (98-107); Estimated Creatinine Clearance 20 ml/min; Glucose 131 mg/dl (70-99); Magnesium 2.7 mg/dl (1.6-2.3); Potassium 3.9 mmol/L (3.5-5.1); Sodium 135 mmol/L (135-145); eGFR 15.53
[2025-05-08 07:47] LABS: Glucose - Point of Care 145 mg/dl (70-99)
--- NOTE | 2025-05-08 08:24 | W.PN.HOSP.TC ---
Today's Communication/Plan
-
IV antibiotics per ID
Analgesia
Repeat cultures
Monitor CBC on Plavix and Eliquis
Eventual fistulogram
Assessment / Plan
Assessment / Plan
#Enterococcus faecalis bacteremia
#Vertebral osteomyelitis/discitis at L1-L2
-Presented as back pain, positive blood cultures at dialysis last week; CT and MRI consistent
-Blood cultures here returned positive for Enterococcus faecalis; ID following and started on IV ampicillin and ceftriaxone
-Second set of blood cultures remain negative, third set were just recently drawn
-Continue with current IV antibiotics and trend CBC and temperature curve, follow repeat blood cultures
-If repeat blood cultures come back positive will likely need to pursue LISA to rule out IE
-Continue with as needed hydromorphone and Flexeril for pain
-Will need 6 weeks total amount of antibiotics
#Acute blood loss anemia
#Bleeding from RUE AVG
#Chronic anemia of kidney disease
-Presented with blood loss anemia due to venous stenosis of the RUE AVG in context of home Eliquis
-Received 1 unit of PRBC here; Plavix and DOAC initially held but has been resumed with stable Hgb
-Vascular surgery following, planning for fistulogram once bacteremia cleared
-Continue to trend CBC and monitor for bleeding
#Paroxysmal AF/AFL
-Has history of AF for which she takes metoprolol XL and Eliquis
-Earlier in hospital stay had runs of AFL and RVR, metoprolol XL now twice daily, currently NSR
-Will continue with regimen monitor on telemetry
-If recurrence of AFL may need to consider CTI ablation
#ESRD
-Suspect due to diabetic nephropathy; on HD M/W/
-C/B bone mineral disease and AoCKD
-Home meds include calcium acetate, Nephro-Michelle
#NIDDM
-No longer on insulin, suspect improvement with end-stage renal disease and insulin retention
-C/B macrovascular disease with obstructive ASCVD, AVG venous stenosis
-Home regimen includes Ozempic; also on high intensity statin for vascular disease
-GLP-1 held, continue with ISS and Accu-Cheks here for BG goal 140-180
#CAD s/p CABG + PCI
#PAD s/p LE bypass
#Dyslipidemia
-Home regimen includes high intensity statin, Plavix; also on DOAC for AF history
-Home meds also include beta-keny for CAD, co-Q10 to minimize statin myalgia
-No signs or symptoms of acute coronary syndrome or acute occlusive PAD
-Remains on home medications
#COPD without flare
#FINESSE not on CPAP
#Tobacco use
-Home medications include albuterol MDI as needed
-No recent PFTs to review
-No signs of flare
-Stable respiratory status here
#Primary hypertension
#H/O hypotension
-Home antihypertensive regimen includes metoprolol succinate but no first-line agents, also on HD
-Home meds also include midodrine as needed for SBP <100
-BP has been more on hypertensive side here secondary to pain
#H/O CVA
-Likely related to AF, no known history of cerebrovascular disease or ASD
-Home regimen includes Plavix, Eliquis, high intensity statin
-No obvious residual deficits, no new FND
#H/O CML
-Not currently on TKI or other therapy
-WBC has been persistently elevated in range of 16-30 here
-Encourage OP follow-up with oncology
Diet: Renal
DVT prophylaxis: Home Eliquis
CODE STATUS: Full code
Anticipated Discharge: > 48 hours
Subjective/Interval History
-
Date of Service: May 08, 2025
Seen and examined at the bedside. No acute events reported overnight. AFVSS this morning
Hemoglobin stable. Patient states pain still severe, though when I walked in to the room he was on his phone and appeared comfortable
Denies any other new complaints outside of his pain
Objective Data
-
Labs:
Laboratory Results
05/08/25
05:39
WBC 19.0 H
Hgb 9.3 L
Hct 27.6 L
Plt Count 367
Sodium 135
Potassium 3.9
Chloride 96 L
Carbon Dioxide 28
BUN 40 H
Creatinine 4.0 H
Glucose 131 H
Calcium 8.5
Vital Signs:
Vital Signs
Temp Pulse Resp BP Pulse Ox
98.7 F 88 18 132/76 94
05/08/25 08:09 05/08/25 08:09 05/08/25 08:09 05/08/25 08:09 05/08/25 08:09
I&O
05/07/25 05/08/25 05/09/25
06:59 06:59 06:59
Intake Total 1140 / 1140 1080 / 1080
Output Total 750 / 750 100 / 100
Balance 390 / 390 980 / 980
Review of Systems
-
History Source: Patient
All other systems: Reviewed and negative
Physical Exam
-
General: Well Developed, Well Nourished, No Apparent Distress and Appears Chronically Ill
HEENT: Normocephalic, Atraumatic, Moist Mucous Membranes and Anicteric
Respiratory: Clear to Auscultation and Non Labored Respirations; Negative Accessory Resp Muscle Use
Cardiac: Regular Rhythm and S1/S2; Negative Murmur, Rub or Gallop
GI: Soft, Nontender, Nondistended and Normal Bowel Sounds
Musculoskeletal: No Clubbing, No Cyanosis and No Edema
Skin: Warm and Dry; Negative Rash
Neuro: AO x 3 and Nonfocal/Grossly Intact; Negative Tremors
Psych: Calm
Data Reviewed
-
Labs: Labs Reviewed by me and Discussed with Patient
[2025-05-08] MEDS: NOVOLOG FLEXPEN-LOW RESISTANCE SC (09:01)
[2025-05-08] MEDS: ELIQUIS 5 MG PO ×2 (09:04→20:19)
[2025-05-08] MEDS: MYCOSTATIN ORAL SUSPENSION 5 ML PO ×4 (09:04→20:19)
[2025-05-08] MEDS: ZETIA 10 MG PO (09:05)
[2025-05-08] MEDS: PLAVIX 75 MG PO (09:05)
[2025-05-08] MEDS: TOPROL XL 25 MG PO ×2 (09:05→20:19)
[2025-05-08] MEDS: ZOLOFT 100 MG PO ×2 (09:05→20:19)
[2025-05-08] MEDS: FLEXERIL 10 MG PO ×2 (09:05→20:18)
[2025-05-08] MEDS: NORVASC 5 MG PO ×2 (09:05→20:19)
[2025-05-08] MEDS: LIDOCAINE 4% PATCH 1 PATCH TOPICAL (09:06)
[2025-05-08] MEDS: COLACE 100 MG PO ×2 (09:06→20:19)
[2025-05-08] MEDS: AMPICILLIN 108 MG IV ×2 (09:08→22:01)
[2025-05-08] MEDS: TYLENOL 650 MG PO ×2 (09:11→20:18)
[2025-05-08] MEDS: RITALIN 30 MG PO (09:11)
[2025-05-08] MEDS: DILAUDID 4 MG PO ×2 (10:40→17:37)
[2025-05-08 11:50] LABS: Glucose - Point of Care 191 mg/dl (70-99)
--- NOTE | 2025-05-08 12:37 | W.PN.NEPH.PH ---
Today's Communication / Plan
-
Next dialysis will be Saturday
Assessment/Plan
-
Impression:
AV fistula bleed
Leukocytosis/Enterococcus faecalis bacteremia obtained from blood cultures from dialysis earlier this week
ESRD MWF, [facility]
A-fib
DM2
CAD/CABG
Anemia
PAD
RUE AVF/ligated LUE AVG
Hyperphosphatemia
HTN
Diabetic neuropathy
Secondary hyperparathyroidism
Plan:
HD Saturday via temporary catheter
Back pain continues, blood pressure complicated by pain
will need LISA
continue ampicilline for Efaecalis
-
-
Date of Service: May 08, 2025
CC / HPI / ROS
-
Chief Complaint:
ESRD
History of Present Illness:
ESRD on Saturday schedule
tolerated HD yesterday
Hemodynamically stable
Remains on ampicillin for Enterococcus faecalis bacteremia
Review of Systems:
Temp IJ cath
No fevers
No chest pain or shortness of breath
Severe lower back pain
Labs
-
Labs:
WBC 19.0 10^3/uL (4.8-10.8) H 05/08/25 05:39
RBC 2.90 10^6/uL (4.70-6.10) L 05/08/25 05:39
Hgb 9.3 g/dL (13.0-18.0) L 05/08/25 05:39
Hct 27.6 % (39.0-52.0) L 05/08/25 05:39
Plt Count 367 10^3/uL (130-400) 05/08/25 05:39
Sodium 135 mmol/L (135-145) 05/08/25 05:39
Potassium 3.9 mmol/L (3.5-5.1) 05/08/25 05:39
Chloride 96 mmol/L (98-107) L 05/08/25 05:39
Carbon Dioxide 28 mmol/L (22-30) 05/08/25 05:39
BUN 40 mg/dl (9-20) H 05/08/25 05:39
Creatinine 4.0 mg/dL (0.7-1.3) H 05/08/25 05:39
eGFR 15.53 05/08/25 05:39
Glucose 131 mg/dl (70-99) H 05/08/25 05:39
Calcium 8.5 mg/dl (8.4-10.2) 05/08/25 05:39
Albumin 4.2 g/dl (3.5-5.0) 05/02/25 23:09
Physical Exam
-
Vital Signs:
Vital Signs
Temp Pulse Resp BP Pulse Ox
98.2 F 50 16 142/50 96
05/08/25 11:30 05/08/25 11:30 05/08/25 11:30 05/08/25 11:30 05/08/25 11:30
Cardiovascular:: Regular rate and rhythm
Respiratory:: Bilateral: Coarse
Lung Excursion:: Normal
Abdomen:: Nontender and Soft
Bowel Sounds:: Normal
Extremity Edema:: None: Bilateral:
--- NOTE | 2025-05-08 13:46 | W.PN.CARDCBS ---
Today's Communication / Plan
-
Heart rate/rhythm remained stable; continue beta-keny therapy 25 mg twice daily, anticoagulation
Antibiotics per primary service, dialysis per nephrology
Monitor on telemetry
Will sign off, please call with questions
Impression / Plan
-
PCP: Placido Lora MD
CDY: Tai Serra MD
Impression:
Bleeding from LUE fistula, stable
Acute on chronic anemia of chronic disease
Sepsis
Enterococcus bacteremia
Osteomyelitis/discitis of L1-L2
Parox afib/typical aflutter on chronic Eliquis
CAD
-PCI LAD 2005
-CABGx3 2009
-PCI VG to OM 09/2023
-s/p PCI ISR VG to OM 11/03/24
HTN
HLD
RBBB
Chronic HFpEF
ESRD HD MWF
GERD
PAD
DM2
TIA/CVA
Ambulatory dysfunction
Osteoarthritis chronic pain syndrome
BPH
Gout
Depression
Staph bacteremia 01/2024
Right foot wound with abscess status post I&D and debridement 10/2024
ECHO 07/02/2024: EF 50 to 55%, mild concentric LVH, no significant valvular disease
Echo 05/05/2025: EF 50 to 55%, no WMA, mild concentric LVH, no significant valve disease, no evidence of vegetation, but consider LISA if clinically indicated
Plan:
-Admitted with bleeding from AV fistula w/ back discomfort. Being treated for bacteremia and discitis.
-Continue abx per primary service/ID.
-In SR, but still having frequent runs on afib/flutter on tele. Toprol increased this admission to 12.5mg BID which was subsequently increased to 25 mg twice daily. Has not needed IV lopressor, although is ordered PRN. ; improved
-Could consider resuming amiodarone if continues to have paroxysms on tele. Previously amiodarone stopped due to elevated LFTs 02/2024; would avoid if possible
-Continues on Plavix 75mg w/ recent PCI of in-stent restenosis of SVG-OM 10/2025. Eliquis on hold w/ bleeding from fistula site. Hgb stable at 8.6
-BP stable, continue amlodipine.
-Will arrange follow up.
HPI: This is a 68 year old male patient with an extensive cardiac PMH of CAD with history of CABGx3 in 2009 and LAD stent, Atrial fib on Eliquis, HTN, ESRD on HD, CML, TIA in 2016 and CVA 2018, PAD with history of left SFA stent in 2015 and NIDDM.
He had been evaluated 04/19/2025 for mental status changes felt to be due to pain medications for chronic back discomfort. He reports a transient fever without recurrence. He had blood cultures drawn during dialysis last week which resulted
positive for Enterococcus. He then had bleeding from his AV fistula causing him to come to the hospital. He also reports continued back discomfort. he was found by imaging to have evidence of osteomyelitis/discitis and is being treated with IV
antibiotics. Neurosurgery has been consulted for evaluation in addition. Cardiology consulted as patient noted to be tachycardic earlier today with associated feeling of 'panic attack'. He denies symptoms of chest pain, shortness of breath,
palpitations. He is chronically on plavix, Eliquis as well as Toprol 12.5 mg daily. He had previously been on amiodarone in 2023, however then had altered mental status and elevated liver function tests and amiodarone was discontinued.
Progress Note - Research Specialist
Subjective
Date of Service: May 08, 2025
Patient seen and examined. No acute events overnight. Patient resting comfortably in bed reporting mild leg cramps. Patient denies any chest pain, shortness of breath, palpitations, weakness.
Objective
Labs:
05/08/25 05:39
05/08/25 05:39
Labs
Hgb 9.3 g/dL (13.0-18.0) L 05/08/25 05:39
Hct 27.6 % (39.0-52.0) L 05/08/25 05:39
Plt Count 367 10^3/uL (130-400) 05/08/25 05:39
PT 16.9 Sec (11.4-14.6) H 05/03/25 07:46
INR 1.35 05/03/25 07:46
Sodium 135 mmol/L (135-145) 05/08/25 05:39
Potassium 3.9 mmol/L (3.5-5.1) 05/08/25 05:39
BUN 40 mg/dl (9-20) H 05/08/25 05:39
Creatinine 4.0 mg/dL (0.7-1.3) H 05/08/25 05:39
Glucose 131 mg/dl (70-99) H 05/08/25 05:39
Vital Signs and I&O:
Vital Signs
Temp Pulse Resp BP Pulse Ox
98.2 F 50 16 142/50 96
05/08/25 11:30 05/08/25 11:30 05/08/25 11:30 05/08/25 11:30 05/08/25 11:30
Vital Signs
Temp Pulse Resp BP Pulse Ox
98.2 F 50 16 142/50 96
05/08/25 11:30 05/08/25 11:30 05/08/25 11:30 05/08/25 11:30 05/08/25 11:30
Intake & Output
05/06/25 05/07/25 05/08/25 05/09/25
06:59 06:59 06:59 06:59
Intake Total 600 / 600 1140 / 1140 1080 / 1080
Output Total 175 / 175 750 / 750 100 / 100
Balance 425 / 425 390 / 390 980 / 980
Physical Exam
Physical Exam
General: Well developed, well nourished in NAD.
Neck: Supple, no JVD, HJR, carotids +2 B/L, no bruits bilaterally.
Heart: Non displaced PMI, RRR, no murmurs, No S3, S4, no rubs.
Lungs: Clear to auscultation bilaterally, no wheeze, rhonchi, rubs bilaterally,
normal expiratory phase.
Extremities: No clubbing, cyanosis or edema bilaterally.
Neuro: Grossly nonfocal, awake, alert and oriented x3.
Left chest wall catheter in place
Telemetry demonstrates sinus rhythm PACs
[2025-05-08] MEDS: NOVOLOG FLEXPEN-LOW RESISTANCE 1 UNITS SC (14:10)
--- NOTE | 2025-05-08 14:57 | W.PN.ID1 ---
Date of Service
Date of Service: May 08, 2025
Today's Communication
Continue antibiotics.
Assessment / Plan
Leukocytosis
Low back pain with suspected discitis / vertebral osteomyelitis
Bacteremia with E. faecalis
Constipation / obstipation
Elevated ESR
Elevated CRP
pA-fib
CML
COPD
Hx CVA
HTN
HLD
DM type II
CAD; Hx [place]
ESRD�HD
Obesity
Recommendations:
Blood cultures with E. faecalis.
MRI findings compatible with discitis and osteomyelitis at L1-2. Possible paraspinal inflammation also noted.
TTE nondiagnostic. may consider LISA, although will not change duration of therapy (6 weeks)
Continue ampicillin and ceftriaxone
Follow white count and temperature curve.
Follow serial blood cultures to assess clearance. Rpt blood cultures negative x 24 and 72 hours.
����������������������������������������������������������
Chief Complaint
-: Bacteremia
Subjective / Review of Systems
Review of Systems: No Fever and No Chills
Vital Signs / Physical Exam
Vital Signs
Vital Signs
Temp Pulse Resp BP Pulse Ox
98.2 F 50 16 142/50 96
05/08/25 11:30 05/08/25 11:30 05/08/25 11:30 05/08/25 11:30 05/08/25 11:30
Physical Exam
Constitutional: Chronically Ill, Non-toxic and Other (Mild discomfort secondary to back pain)
Eyes: No Conjunctival Hemorrhage and Sclera Anicteric
Cardiovascular: S1/S2; Negative S3/S4
Pulmonary: Non Labored
Gastrointestinal: Soft and Non Tender
Musculoskeletal: Spinal Tenderness
Neurological: Awake and Alert
Psychological: Calm
Lines: HD Cath (left IJ temp actheter in place)
Objective Data
Lab Data
Lab Results
05/08/25 05:39
05/08/25 05:39
ESR 92 mm/hour (0-20) H 05/06/25 05:39
PT 16.9 Sec (11.4-14.6) H 05/03/25 07:46
INR 1.35 05/03/25 07:46
Estimated Creat Clear 20 ml/min 05/08/25 05:39
Lactic Acid 0.7 mmol/L (0.7-2.0) 05/02/25 23:37
Total Bilirubin 0.6 mg/dl (0.2-1.3) 05/02/25 23:09
AST 21 U/L (17-59) 05/02/25 23:09
ALT < 10 U/L (0-50) 05/02/25 23:09
Alkaline Phosphatase 157 U/L (38-126) H 05/02/25 23:09
C-Reactive Protein 63.00 mg/L (0.0-10.00) H 05/06/25 05:39
Most recent labs reviewed.
Micro Results:
05/07/25 10:56 Blood Culture - Preliminary
Blood/Venous No Growth in 24 hours- Final report to follow
05/07/25 09:57 Blood Culture - Preliminary
Blood/Venous No Growth in 24 hours- Final report to follow
05/05/25 08:41 Blood Culture - Preliminary
Blood/Venous No Growth in 72 hours- Final report to follow
05/05/25 07:28 Blood Culture - Preliminary
Blood/Venous No Growth in 72 hours- Final report to follow
05/02/25 23:37 Blood Culture - Final
Blood/Venous No Growth - Final Report
05/03/25 11:43 Blood Culture - Final
Blood/Venous Enterococcus faecalis
Gram Stain - Final
05/03/25 11:02 Blood Culture - Final
Blood/Venous Enterococcus faecalis
Gram Stain - Final
05/03/25 00:14 Blood Culture - Preliminary
Blood/Venous Enterococcus faecalis
Gram Stain - Preliminary
05/03/25 06:19 MRSA Screen - Final
Nose No Methicillin Resistant Staphylococcus aureus isolated.
Imaging:
05/05/2025 ECHO (TTE): Technically difficult study. EF approximately 50%. No evidence of vegetation but consider LISA if clinically indicated. See full dictation for additional detail.
05/03/2025 CT abdomen/pelvis without contrast: Moderate colonic stool burden without evidence of obstruction. Prior L1-L5 posterior spinal fusion noted. There are endplate irregularities with mild surrounding paraspinal soft tissue
thickening/stranding at the L1-L2 intervertebral space which is concerning for discitis or osteomyelitis. A dedicated MRI with and without contrast may be considered as clinically indicated.
[2025-05-08] MEDS: TRANDATE 10 MG IV (16:05)
[2025-05-08] MEDS: OFIRMEV 100 IV (16:06)
[2025-05-08 17:21] LABS: Glucose - Point of Care 213 mg/dl (70-99)
[2025-05-08] MEDS: NOVOLOG FLEXPEN-LOW RESISTANCE 2 UNITS SC (17:37)
[2025-05-08] MEDS: LIPITOR 80 MG PO (20:18)
[2025-05-08] MEDS: SENOKOT 17.2 MG PO (20:19)
[2025-05-08] MEDS: MELATONIN 5 MG PO (20:19)
[2025-05-08] MEDS: FLUSH (NSS) 1 FLUSH IV (22:01)
[2025-05-08 22:04] LABS: Glucose - Point of Care 152 mg/dl (70-99)
[2025-05-09] VITALS (8 sets, daily range): BP systolic 152–220; BP diastolic 68–107
[2025-05-09] MEDS: DILAUDID 4 MG PO ×3 (00:40→09:43)
[2025-05-09] MEDS: ROCEPHIN 2000 MG IV ×2 (05:49→16:45)
[2025-05-09] MEDS: STERILE WATER FOR INJECTION 20 ML IV ×2 (05:51→16:46)
[2025-05-09] MEDS: TYLENOL 650 MG PO ×2 (05:51→09:06)
[2025-05-09] MEDS: FLEXERIL 10 MG PO ×3 (05:51→22:51)
[2025-05-09 06:41] LABS: % Basophils 0.3 % (0-2); % Eosinophils 3.2 % (0-6); % Immature Granulocytes 0.8 % (0-0.5); % Monocytes 9.1 % (1.7-9.3); % Neutrophils 78.6 % (42.2-75.2); Absolute Basophils 0.1 10^3/uL (0-0.2); Absolute Eosinophils 0.6 10^3/uL (0-0.7); Absolute Immature Granulocytes 0.2 10^3/uL (0-0.05); Absolute Lymphocytes 1.6 10^3/uL (1.2-3.4); Absolute Monocytes 1.8 10^3/uL (0.1-0.6); Absolute Neutrophils 15.4 10^3/uL (1.4-6.5); Hematocrit 28.7 % (39.0-52.0); Hemoglobin 9.6 g/dL (13.0-18.0); Mean Corp Hgb Conc. 33.4 g/dL (33.0-37.0); Mean Corpuscular Volume 95.7 fL (80.0-94.0); Mean Platelet Volume 10.1 fL (7.4-10.4); Nucleated Red Blood Cells % 0 % (-); Platelet Count 373 10^3/uL (130-400); Red Cell Dist. Width 14.4 % (11.5-14.5); White Blood Cell Count 19.5 10^3/uL (4.8-10.8)
[2025-05-09 07:09] LABS: Blood Urea Nitrogen 57 mg/dl (9-20); Carbon Dioxide 29 mmol/L (22-30); Chloride 97 mmol/L (98-107); Estimated Creatinine Clearance 14 ml/min; Glucose 154 mg/dl (70-99); Potassium 4.2 mmol/L (3.5-5.1); Sodium 136 mmol/L (135-145); eGFR 10.37
[2025-05-09 08:05] LABS: Glucose - Point of Care 143 mg/dl (70-99)
[2025-05-09] MEDS: NOVOLOG FLEXPEN-LOW RESISTANCE SC ×3 (09:05→16:41)
[2025-05-09] MEDS: MYCOSTATIN ORAL SUSPENSION 5 ML PO ×3 (09:05→22:13)
[2025-05-09] MEDS: RITALIN 30 MG PO (09:06)
[2025-05-09] MEDS: ZETIA 10 MG PO (09:06)
[2025-05-09] MEDS: TOPROL XL 25 MG PO ×2 (09:06→20:12)
[2025-05-09] MEDS: NORVASC 5 MG PO ×2 (09:06→20:12)
[2025-05-09] MEDS: PLAVIX 75 MG PO (09:06)
[2025-05-09] MEDS: ELIQUIS 5 MG PO ×2 (09:07→20:13)
[2025-05-09] MEDS: AMPICILLIN 108 MG IV ×2 (09:07→22:10)
[2025-05-09] MEDS: ZOLOFT 100 MG PO ×2 (09:07→20:16)
[2025-05-09] MEDS: COLACE 100 MG PO ×2 (09:07→20:13)
[2025-05-09] MEDS: TRANDATE 10 MG IV (09:08)
[2025-05-09] MEDS: LIDOCAINE 4% PATCH TOPICAL (09:08)
[2025-05-09] MEDS: APRESOLINE 10 MG IV (10:55)
[2025-05-09] MEDS: ROXICODONE 20 MG PO ×2 (10:55→20:10)
[2025-05-09] MEDS: SOLU-MEDROL PF 40 MG IV (10:56)
[2025-05-09 11:47] LABS: Glucose - Point of Care 190 mg/dl (70-99)
--- NOTE | 2025-05-09 12:04 | W.PN.HOSP.TC ---
Today's Communication/Plan
-
Give 1 dose of IV steroid for pain control
Transition back to oxycodone which provided some relief
Trend CBC on Plavix/DOAC
Continue antibiotics and follow cultures
Plan for fistulogram as per vascular
Assessment / Plan
Assessment / Plan
#Enterococcus faecalis bacteremia
#Vertebral osteomyelitis/discitis at L1-L2
-Presented as back pain, positive blood cultures at dialysis last week; CT and MRI consistent
-Blood cultures here returned positive for Enterococcus faecalis; ID following and started on IV ampicillin and ceftriaxone
-Second set of blood cultures remain negative, third set were just recently drawn; have remained NGTD
-Pain has been significant barrier, not responding to Dilaudid, limited options due to his ESRD
-Continue with current IV antibiotics and trend CBC and temperature curve, follow repeat blood cultures
-If repeat blood cultures come back positive will likely need to pursue LISA to rule out IE
-Transition back to oxycodone and Flexeril, give 1 dose steroid now
-Will need 6 weeks total amount of antibiotics
#Acute blood loss anemia
#Bleeding from RUE AVG
#Chronic anemia of kidney disease
-Presented with blood loss anemia due to venous stenosis of the RUE AVG in context of home Eliquis
-Received 1 unit of PRBC here; Plavix and DOAC initially held but has been resumed with stable Hgb
-Vascular surgery following, planning for fistulogram once bacteremia cleared
-Continue to trend CBC and monitor for bleeding
#Paroxysmal AF/AFL
-Has history of AF for which she takes metoprolol XL and Eliquis
-Earlier in hospital stay had runs of AFL and RVR, metoprolol XL now twice daily, currently NSR
-Will continue with regimen monitor on telemetry
-If recurrence of AFL may need to consider CTI ablation
#ESRD
-Suspect due to diabetic nephropathy; on HD M/W/F
-C/B bone mineral disease and AoCKD
-Home meds include calcium acetate, Nephro-Michelle
#NIDDM
-No longer on insulin, suspect improvement with end-stage renal disease and insulin retention
-C/B macrovascular disease with obstructive ASCVD, AVG venous stenosis
-Home regimen includes Ozempic; also on high intensity statin for vascular disease
-GLP-1 held, continue with ISS and Accu-Cheks here for BG goal 140-180
#CAD s/p CABG + PCI
#PAD s/p LE bypass
#Dyslipidemia
-Home regimen includes high intensity statin, Plavix; also on DOAC for AF history
-Home meds also include beta-keny for CAD, co-Q10 to minimize statin myalgia
-No signs or symptoms of acute coronary syndrome or acute occlusive PAD
-Remains on home medications
#COPD without flare
#FINESSE not on CPAP
#Tobacco use
-Home medications include albuterol MDI as needed
-No recent PFTs to review
-No signs of flare
-Stable respiratory status here
#Primary hypertension
#H/O hypotension
-Home antihypertensive regimen includes metoprolol succinate but no first-line agents, also on HD
-Home meds also include midodrine as needed for SBP <100
-BP has been more on hypertensive side here secondary to pain
-Has IV labetalol and hydralazine ordered as needed for spikes
-Continue to address pain as above
#H/O CVA
-Likely related to AF, no known history of cerebrovascular disease or ASD
-Home regimen includes Plavix, Eliquis, high intensity statin
-No obvious residual deficits, no new FND
#H/O CML
-Not currently on TKI or other therapy
-WBC has been persistently elevated in range of 16-30 here
-Encourage OP follow-up with oncology
Diet: Renal
DVT prophylaxis: Home Eliquis
CODE STATUS: Full code
Anticipated Discharge: > 48 hours
Subjective/Interval History
-
Date of Service: May 09, 2025
Seen and examined at the bedside. No acute events reported overnight. Hypertensive in context of pain though otherwise stable and on room air
Hemoglobin stable. No further bleeding reported. Patient continues to have significant back pain that does not respond to hydromorphone p.o. or IV.
Denies any new complaints outside of his severe back pain
Objective Data
-
Labs:
Laboratory Results
05/09/25
06:27
WBC 19.5 H
Hgb 9.6 L
Hct 28.7 L
Plt Count 373
Sodium 136
Potassium 4.2
Chloride 97 L
Carbon Dioxide 29
BUN 57 H
Creatinine 5.6 H*
Glucose 154 H
Calcium 9.0
Vital Signs:
Vital Signs
Temp Pulse Resp BP Pulse Ox
98.0 F 80 19 194/99 97
05/09/25 10:52 05/09/25 10:52 05/09/25 10:52 05/09/25 10:52 05/09/25 10:52
I&O
05/08/25 05/09/25 05/10/25
06:59 06:59 06:59
Intake Total 1080 / 1080 390 / 390
Output Total 100 / 100 380 / 380
Balance 980 / 980
Review of Systems
-
History Source: Patient
All other systems: Reviewed and negative
Physical Exam
-
General: Well Developed, Well Nourished, Pain and Appears Chronically Ill
HEENT: Normocephalic, Atraumatic, Moist Mucous Membranes and Anicteric
Respiratory: Clear to Auscultation and Non Labored Respirations; Negative Accessory Resp Muscle Use
Cardiac: Regular Rhythm and S1/S2; Negative Murmur, Rub or Gallop
GI: Soft, Nontender, Nondistended and Normal Bowel Sounds
Musculoskeletal: No Clubbing, No Cyanosis, No Edema and Other (Tenderness to palpation of lumbar spine)
Skin: Warm and Dry; Negative Rash or Jaundice
Neuro: AO x 3 and Nonfocal/Grossly Intact
Data Reviewed
-
Labs: Labs Reviewed by me, Discussed with Physician (Infectious disease) and Discussed with Patient
[2025-05-09] MEDS: MYCOSTATIN ORAL SUSPENSION PO (12:48)
--- NOTE | 2025-05-09 15:24 | W.PN.NEPH.PH ---
Today's Communication / Plan
-
HD tomorrow
Blood pressure control
Assessment/Plan
-
Impression:
AV fistula bleed
Leukocytosis/Enterococcus faecalis bacteremia obtained from blood cultures from dialysis earlier this week
ESRD MWF, [facility]
A-fib
DM2
CAD/CABG
Anemia
PAD
RUE AVF/ligated LUE AVG
Hyperphosphatemia
HTN
Diabetic neuropathy
Secondary hyperparathyroidism
Plan:
HD Saturday via temporary catheter,orders provided
severe intractableBack pain continues, blood pressure complicated by pain
continue ampicilline for Efaecalis
-
-
Date of Service: May 09, 2025
CC / HPI / ROS
-
Chief Complaint:
ESRD
History of Present Illness:
ESRD on Saturday schedule
tolerated HD yesterday
Hemodynamically stable
Remains on ampicillin for Enterococcus faecalis bacteremia
Review of Systems:
Temp IJ cath
No fevers
No chest pain or shortness of breath
Severe lower back pain
Labs
-
Labs:
WBC 19.5 10^3/uL (4.8-10.8) H 05/09/25 06:27
RBC 3.00 10^6/uL (4.70-6.10) L 05/09/25 06:27
Hgb 9.6 g/dL (13.0-18.0) L 05/09/25 06:27
Hct 28.7 % (39.0-52.0) L 05/09/25 06:27
Plt Count 373 10^3/uL (130-400) 05/09/25 06:27
Sodium 136 mmol/L (135-145) 05/09/25 06:27
Potassium 4.2 mmol/L (3.5-5.1) 05/09/25 06:27
Chloride 97 mmol/L (98-107) L 05/09/25 06:27
Carbon Dioxide 29 mmol/L (22-30) 05/09/25 06:27
BUN 57 mg/dl (9-20) H 05/09/25 06:27
Creatinine 5.6 mg/dL (0.7-1.3) H* 05/09/25 06:27
eGFR 10.37 05/09/25 06:27
Glucose 154 mg/dl (70-99) H 05/09/25 06:27
Calcium 9.0 mg/dl (8.4-10.2) 05/09/25 06:27
Albumin 4.2 g/dl (3.5-5.0) 05/02/25 23:09
Physical Exam
-
Vital Signs:
Vital Signs
Temp Pulse Resp BP Pulse Ox
98.4 F 86 18 157/88 97
05/09/25 14:53 05/09/25 14:53 05/09/25 14:53 05/09/25 14:53 05/09/25 14:53
Cardiovascular:: Regular rate and rhythm
Respiratory:: Bilateral: Coarse
Lung Excursion:: Normal
Abdomen:: Nontender and Soft
Bowel Sounds:: Normal
Extremity Edema:: None: Bilateral:
[2025-05-09] MEDS: DULCOLAX 10 MG RECTAL (15:53)
--- NOTE | 2025-05-09 16:04 | W.PN.ID1 ---
Date of Service
Date of Service: May 09, 2025
Today's Communication
Continue antibiotics.
Assessment / Plan
Leukocytosis
Low back pain with suspected discitis / vertebral osteomyelitis
Bacteremia with E. faecalis
Constipation / obstipation
Elevated ESR
Elevated CRP
pA-fib
CML
COPD
Hx CVA
HTN
HLD
DM type II
CAD; Hx [place]
ESRD�HD
Obesity
Recommendations:
Blood cultures (05/03/25) with E. faecalis. Repeat blood cultures (05/05, 05/07) without growth
MRI findings compatible with discitis and osteomyelitis at L1-2. Possible paraspinal inflammation also noted.
TTE nondiagnostic. May consider LISA, although will not change duration of therapy (6 weeks)
Continue ampicillin and ceftriaxone
Follow white count and temperature curve.
Follow serial blood cultures to assess clearance.
����������������������������������������������������������
Chief Complaint
-: Bacteremia
Subjective / Review of Systems
Patient seen and examined. Reports ongoing low back pain, especially radiating into his left hip area.
Vital Signs / Physical Exam
Vital Signs
Vital Signs
Temp Pulse Resp BP Pulse Ox
98.4 F 86 18 157/88 97
05/09/25 14:53 05/09/25 14:53 05/09/25 14:53 05/09/25 14:53 05/09/25 14:53
Physical Exam
Constitutional: Chronically Ill, Non-toxic and Other (Mild discomfort secondary to back pain)
Eyes: No Conjunctival Hemorrhage and Sclera Anicteric
Cardiovascular: S1/S2; Negative S3/S4
Pulmonary: Non Labored
Gastrointestinal: Soft and Non Tender
Musculoskeletal: Spinal Tenderness
Neurological: Awake and Alert
Psychological: Calm
Lines: HD Cath (left IJ temp actheter in place)
Objective Data
Lab Data
Lab Results
05/09/25 06:27
05/09/25 06:27
ESR 92 mm/hour (0-20) H 05/06/25 05:39
PT 16.9 Sec (11.4-14.6) H 05/03/25 07:46
INR 1.35 05/03/25 07:46
Estimated Creat Clear 14 ml/min 05/09/25 06:27
Lactic Acid 0.7 mmol/L (0.7-2.0) 05/02/25 23:37
Total Bilirubin 0.6 mg/dl (0.2-1.3) 05/02/25 23:09
AST 21 U/L (17-59) 05/02/25 23:09
ALT < 10 U/L (0-50) 05/02/25 23:09
Alkaline Phosphatase 157 U/L (38-126) H 05/02/25 23:09
C-Reactive Protein 63.00 mg/L (0.0-10.00) H 05/06/25 05:39
Most recent labs reviewed.
Micro Results:
05/07/25 10:56 Blood Culture - Preliminary
Blood/Venous No Growth in 48 hours- Final report to follow
05/07/25 09:57 Blood Culture - Preliminary
Blood/Venous No Growth in 48 hours- Final report to follow
05/05/25 08:41 Blood Culture - Preliminary
Blood/Venous No Growth in 4 days- Final report to follow
05/05/25 07:28 Blood Culture - Preliminary
Blood/Venous No Growth in 4 days- Final report to follow
05/02/25 23:37 Blood Culture - Final
Blood/Venous No Growth - Final Report
05/03/25 11:43 Blood Culture - Final
Blood/Venous Enterococcus faecalis
Gram Stain - Final
05/03/25 11:02 Blood Culture - Final
Blood/Venous Enterococcus faecalis
Gram Stain - Final
05/03/25 00:14 Blood Culture - Preliminary
Blood/Venous Enterococcus faecalis
Gram Stain - Preliminary
05/03/25 06:19 MRSA Screen - Final
Nose No Methicillin Resistant Staphylococcus aureus isolated.
Imaging:
05/05/2025 ECHO (TTE): Technically difficult study. EF approximately 50%. No evidence of vegetation but consider LISA if clinically indicated. See full dictation for additional detail.
05/03/2025 CT abdomen/pelvis without contrast: Moderate colonic stool burden without evidence of obstruction. Prior L1-L5 posterior spinal fusion noted. There are endplate irregularities with mild surrounding paraspinal soft tissue
thickening/stranding at the L1-L2 intervertebral space which is concerning for discitis or osteomyelitis. A dedicated MRI with and without contrast may be considered as clinically indicated.
[2025-05-09 16:31] LABS: Glucose - Point of Care 190 mg/dl (70-99)
[2025-05-09] MEDS: DILAUDID 1 MG IV (16:40)
[2025-05-09] MEDS: NOVOLOG FLEXPEN-LOW RESISTANCE 1 UNITS SC (18:05)
--- NOTE | 2025-05-09 18:16 | PTCARENOTE ---
PT alert able to make needs known. PT with odd affect. he follows all instructions. He complains of 10/10 severe back spasms and yells frequently. His BP has been high due to pain, as per attending and renal, Due to the severity of the pain, the
patient has refused all turns off of his back. he lays in supine position very tense and rigid, Even the slightest movements cause him to have a muscle spasm Pt was educated on importance of turning however his pain is too severe. Md is aware. and
made some changes from PO dilaudid to PO oxycodone. Oxycodone improved pain from 10 to 8.5. MD was made aware on ordered one time IV dilaudid. PT is currently at a 5/10 pain with intermittent muscle spasm and instead of yelling he is saying loudly,
'oohps.' During the day, the patient was complaining of constipation, colace given and he had a moderate bm this am semi soft. During the shift he was fixated on having another BM and was on and off the bed pain without any more BM. he has the
sensation that he had to go alot and requested a suppository. I gave him a suppository at his request and he has been able to pass some air no bm. while inserting the suppositoryi noted a small Stage 2 sacral ulcer on his right buttock, wound
cleansed and covered with foam. His groin with MASD, orange top cream applied. PT re educated on importance of turning q 2 hours. At this point, the patient agrees to turn off of his right buttock. his current position is he is lying on left side
and tolerating well. PT refused breakfast lunch and dinner initially however, now that his pain is improved he is now eating diner.
[2025-05-09 21:23] LABS: Glucose - Point of Care 167 mg/dl (70-99)
[2025-05-09] MEDS: LIPITOR 80 MG PO (22:10)
[2025-05-09] MEDS: SENOKOT 17.2 MG PO (22:10)
[2025-05-09] MEDS: MELATONIN 5 MG PO (22:10)
[2025-05-10] VITALS (8 sets, daily range): BP systolic 115–187; BP diastolic 57–90; BMI 24.3; BMI 28.9
[2025-05-10] MEDS: ROCEPHIN 2000 MG IV ×2 (06:07→17:17)
[2025-05-10] MEDS: STERILE WATER FOR INJECTION 20 ML IV ×2 (06:07→17:17)
[2025-05-10 07:36] LABS: Glucose - Point of Care 138 mg/dl (70-99)
[2025-05-10] MEDS: MYCOSTATIN ORAL SUSPENSION 5 ML PO ×4 (07:40→22:24)
[2025-05-10] MEDS: PLAVIX 75 MG PO (07:40)
[2025-05-10] MEDS: ZETIA 10 MG PO (07:40)
[2025-05-10] MEDS: ZOLOFT 100 MG PO ×2 (07:41→20:45)
[2025-05-10] MEDS: RITALIN 30 MG PO (07:41)
[2025-05-10] MEDS: ELIQUIS 5 MG PO ×2 (07:41→20:45)
[2025-05-10] MEDS: LIDOCAINE 4% PATCH 1 PATCH TOPICAL (07:41)
[2025-05-10] MEDS: NOVOLOG FLEXPEN-LOW RESISTANCE SC ×2 (07:42→12:07)
[2025-05-10] MEDS: COLACE PO (07:44)
[2025-05-10] MEDS: ROXICODONE 20 MG PO ×2 (07:46→16:15)
[2025-05-10] MEDS: NORVASC PO (07:58)
[2025-05-10] MEDS: TOPROL XL PO (07:58)
[2025-05-10] MEDS: NEPHROCAP 1 CAPSULE PO (08:14)
--- NOTE | 2025-05-10 08:27 | W.PN.HOSP.TC ---
Addendum entered and electronically signed by Yazmin Thomas MD 05/10/25 18:05:
I saw and evaluated the patient independently. I reviewed the resident�s note and agree with findings and plan as documented by Dr. Larios.
GENERAL: well developed, chronically ill appearing male in no apparent distress
HEENT:NC/AT
HEART: regular rate and rhythm, +S1, +S2
LUNGS : clear to auscultation bilaterally
ABDOM: soft, nontender, nondistended, + bowel sounds
EXT: no cyanosis, clubbing, or edema--right arm with lary wrap in place--temp HD cath in place
NEUROLOGIC: grossly intact
: fungal groin infection
Enterococcus faecalis bacteremia with Vertebral osteomyelitis/discitis at L1-L2--presented as back pain with positive blood cultures from dialysis--MRI/CT scans confirm--no need for neurosurgical intervention--pain not well controlled--last positive
blood culture 05/03/25--ID following and started on IV ampicillin and ceftriaxone--will need 6 weeks IV abx--Continue on oxycodone and Flexeril, s/p 1 dose steroid 05/09.
Acute blood loss anemia exacerbated by eliquis along with anemia of chronic disease--Bleeding from RUE AVG--Received 1 unit of PRBC here; Plavix and DOAC initially held but has been resumed with stable Hgb--Vascular surgery following, planning for
fistulogram once bacteremia cleared
Paroxysmal AFib/AFlutter--Has history of AF for which he takes metoprolol XL and Eliquis--Earlier in hospital stay had runs of AFL and RVR, metoprolol XL now twice daily, currently NSR
ESRD on HD-Nephrology consulted, input [id number] catheter placed-HD session M//
wounds--as per wound care R buttock ulcer, suspect residual from old bruise now open, appears to be a skin tear. Same darker discolored skin on Coccyx. Today 05/10/25 discovered a blood blister/ DTI on R heel, suspect slowly evolving from past
falls.
NIDDM--A1C 4.9 03/16/2025--Home regimen includes Ozempic; also on high intensity statin for vascular disease--GLP-1 held, continue with ISS and Accu-Cheks here for BG goal 140-180
CAD s/p CABG + PCI/PAD s/p LE bypass/Dyslipidemia--Home regimen includes high intensity statin, Plavix; also on DOAC for AF history--Home meds also include beta-keny for CAD, co-Q10
COPD without flare/FINESSE not on CPAP
Tobacco use--needs to quit--Home medications include albuterol MDI as needed
Essential hypertension--H/O hypotension--Home antihypertensive regimen includes metoprolol succinate--also on HD--Home meds also include midodrine as needed for SBP <100--Has IV labetalol and hydralazine ordered as needed for spikes
H/O CVA--Likely related to AF, no known history of cerebrovascular disease or ASD--Home regimen includes Plavix, Eliquis, high intensity statin
H/O CML--Not currently on TKI or other therapy--WBC has been persistently elevated in range of 16-30 here--Encourage OP follow-up with oncology
DVT proph--Home Eliquis
CODE STATUS-- Full code
Original Note:
Today's Communication/Plan
-
;/
Assessment / Plan
Assessment / Plan
Assessment/plan
#Enterococcus faecalis bacteremia
#Vertebral osteomyelitis/discitis at L1-L2
-Presented as back pain, positive blood cultures at dialysis last week; CT and MRI consistent
-Blood cultures here returned positive for Enterococcus faecalis; ID following and started on IV ampicillin and ceftriaxone
-Second set of blood cultures remain negative, third set have remained NGTD
-Pain has been significant barrier, not responding to Dilaudid, limited options due to his ESRD.
-Continue with current IV antibiotics and trend CBC and temperature curve, follow repeat blood cultures
-Continue on oxycodone and Flexeril, s/p 1 dose steroid 05/09.
-Will need 6 weeks total amount of antibiotics.
#Acute blood loss anemia
#Bleeding from RUE AVG
#Chronic anemia of kidney disease
-Presented with blood loss anemia due to venous stenosis of the RUE AVG in context of home Eliquis
-Received 1 unit of PRBC here; Plavix and DOAC initially held but has been resumed with stable Hgb
-Vascular surgery following, planning for fistulogram once bacteremia cleared
-Continue to trend CBC and monitor for bleeding
#Paroxysmal AF/AFL
-Has history of AF for which he takes metoprolol XL and Eliquis
-Earlier in hospital stay had runs of AFL and RVR, metoprolol XL now twice daily, currently NSR
-Will continue with regimen monitor on telemetry
-If recurrence of AFL may need to consider CTI ablation
#ESRD on HD
-Nephrology consulted, input appreciated
-non-tunneled catheter placed
-HD session M//
#NIDDM
-A1C 4.9 03/16/2025
-Home regimen includes Ozempic; also on high intensity statin for vascular disease
-GLP-1 held, continue with ISS and Accu-Cheks here for BG goal 140-180
#CAD s/p CABG + PCI
#PAD s/p LE bypass
#Dyslipidemia
-Home regimen includes high intensity statin, Plavix; also on DOAC for AF history
-Home meds also include beta-keny for CAD, co-Q10
-No signs or symptoms of acute coronary syndrome or acute occlusive PAD
-Remains on home medications
#COPD without flare
#FINESSE not on CPAP
#Tobacco use
-Home medications include albuterol MDI as needed
-No recent PFTs to review
-No signs of flare
-Stable respiratory status here
#Primary hypertension
#H/O hypotension
-Home antihypertensive regimen includes metoprolol succinate but no first-line agents, also on HD
-Home meds also include midodrine as needed for SBP <100
-BP has been more on hypertensive side here secondary to pain
-Has IV labetalol and hydralazine ordered as needed for spikes
-Continue to address pain as above
#H/O CVA
-Likely related to AF, no known history of cerebrovascular disease or ASD
-Home regimen includes Plavix, Eliquis, high intensity statin
-No obvious residual deficits, no new FND
#H/O CML
-Not currently on TKI or other therapy
-WBC has been persistently elevated in range of 16-30 here
-Encourage OP follow-up with oncology
DVT prophylaxis: Home Eliquis
CODE STATUS: Full code
Anticipated Discharge: > 48 hours
Subjective/Interval History
-
Patient seen and examined at bedside. Reports moderate lower back pain. seen on HD.
Objective Data
-
Labs:
Laboratory Results
05/10/25
07:30
WBC Pending
Hgb Pending
Hct Pending
Plt Count Pending
Sodium Pending
Potassium Pending
Chloride Pending
Carbon Dioxide Pending
BUN Pending
Creatinine Pending
Glucose Pending
Calcium Pending
Vital Signs:
Vital Signs
Temp Pulse Resp BP Pulse Ox
97.5 F 70 19 187/90 99
05/10/25 08:01 05/10/25 08:01 05/10/25 08:01 05/10/25 08:01 05/10/25 08:01
I&O
05/09/25 05/10/25 05/11/25
06:59 06:59 06:59
Intake Total 390 / 390 290 / 290
Output Total 380 / 380 550 / 550
Balance 10 / 10 -260 / -260
Physical Exam
-
General: Well Developed, Well Nourished, Pain and Appears Chronically Ill
HEENT: Normocephalic
Respiratory: Clear to Auscultation and Non Labored Respirations; Negative Accessory Resp Muscle Use
Cardiac: Regular Rhythm and S1/S2; Negative Murmur
GI: Soft, Nontender, Nondistended and Normal Bowel Sounds
Musculoskeletal: No Edema and Other (Tenderness to palpation of lumbar spine)
Skin: Warm and Dry
Neuro: AO x 3 and Nonfocal/Grossly Intact
[2025-05-10 08:30] LABS: Hematocrit 29.9 % (39.0-52.0); Hemoglobin 9.7 g/dL (13.0-18.0); Mean Corp Hgb Conc. 32.4 g/dL (33.0-37.0); Mean Corpuscular Hgb 31.1 pg (27.0-31.0); Mean Corpuscular Volume 95.8 fL (80.0-94.0); Platelet Count 496 10^3/uL (130-400); Red Blood Cell Count 3.12 10^6/uL (4.70-6.10); Red Cell Dist. Width 14.7 % (11.5-14.5); White Blood Cell Count 23.8 10^3/uL (4.8-10.8)
[2025-05-10 08:31] LABS: % Basophils 0.2 % (0-2); % Eosinophils 0.9 % (0-6); % Immature Granulocytes 0.8 % (0-0.5); % Neutrophils 79.1 % (42.2-75.2); Absolute Eosinophils 0.2 10^3/uL (0-0.7); Absolute Immature Granulocytes 0.2 10^3/uL (0-0.05); Absolute Lymphocytes 2.4 10^3/uL (1.2-3.4); Absolute Monocytes 2.1 10^3/uL (0.1-0.6); Absolute Neutrophils 18.8 10^3/uL (1.4-6.5); Nucleated Red Blood Cells % 0 % (-)
[2025-05-10 08:56] LABS: Blood Urea Nitrogen 75 mg/dl (9-20); Carbon Dioxide 24 mmol/L (22-30); Chloride 95 mmol/L (98-107); Estimated Creatinine Clearance 11 ml/min; Glucose 143 mg/dl (70-99); Potassium 4.6 mmol/L (3.5-5.1); Sodium 135 mmol/L (135-145)
[2025-05-10] MEDS: RETACRIT 10000 UNITS IV (09:22)
[2025-05-10] MEDS: AMPICILLIN 108 MG IV ×2 (10:29→22:24)
[2025-05-10] MEDS: FLEXERIL 10 MG PO ×2 (10:37→20:45)
--- NOTE | 2025-05-10 11:47 | W.PN.NEPH.HD ---
Assessment
-
pt seen during HD
vitals stable, bp high likely from pain
temp HD cathehter functions ok,
will need to find timing of AVF gram by vasc, if not need change to tunneled catheter
d/w pt
Progress Note - Hemodialysis
-
Date of Service: May 10, 2025
Duration: 30 minutes and 3 hours
Potassium Bath: 2
Calcium Bath: 2.5
Opti-Dialyzer: 160
Ultrafiltration: Other (1-2kg)
Blood Flow: 400
Dialysate Flow: 600
Heparin: no
EPO: 11820
[2025-05-10 11:49] LABS: Glucose - Point of Care 143 mg/dl (70-99)
[2025-05-10] MEDS: DILAUDID 1 MG IV (13:04)
--- NOTE | 2025-05-10 13:17 | W.PN.ID1 ---
Date of Service
Date of Service: May 10, 2025
Today's Communication
Continue abx.
Assessment / Plan
Leukocytosis
Low back pain with suspected discitis / vertebral osteomyelitis
Bacteremia with E. faecalis
Constipation / obstipation
Elevated ESR
Elevated CRP
pA-fib
CML
COPD
Hx CVA
HTN
HLD
DM type II
CAD; Hx MO
ESRD�HD
Obesity
Recommendations:
Etiology of rising white count unclear. Back pain stable. ?secondary to pain
Blood cultures (05/03/25) with E. faecalis. Repeat blood cultures (05/05, 05/07) without growth
MRI findings compatible with discitis and osteomyelitis at L1-2. Possible paraspinal inflammation also noted.
TTE nondiagnostic. May consider LISA, although will not change duration of therapy (6 weeks)
Continue ampicillin and ceftriaxone
Follow white count and temperature curve.
Follow serial blood cultures to assess clearance.
Topical Desenex to the groin and perineal area.
����������������������������������������������������������
Chief Complaint
-: Bacteremia
Subjective / Review of Systems
Patient seen and examined. Reports back pain stable, but now with superficial inguinal and groin discomfort.
Vital Signs / Physical Exam
Vital Signs
Vital Signs
Temp Pulse Resp BP Pulse Ox
98.8 F 69 16 149/80 99
05/10/25 11:36 05/10/25 12:06 05/10/25 11:36 05/10/25 12:06 05/10/25 11:36
Physical Exam
Constitutional: Chronically Ill, Non-toxic and Other (Mild discomfort secondary to back pain)
Eyes: No Conjunctival Hemorrhage and Sclera Anicteric
Cardiovascular: S1/S2; Negative S3/S4
Pulmonary: Non Labored
Gastrointestinal: Soft and Non Tender
Musculoskeletal: Spinal Tenderness
Neurological: Awake and Alert
Psychological: Calm
Lines: HD Cath (left IJ temp actheter in place)
Objective Data
Lab Data
Lab Results
05/10/25 07:30
05/10/25 07:30
ESR 92 mm/hour (0-20) H 05/06/25 05:39
PT 16.9 Sec (11.4-14.6) H 05/03/25 07:46
INR 1.35 05/03/25 07:46
Estimated Creat Clear 11 ml/min 05/10/25 07:30
Lactic Acid 0.7 mmol/L (0.7-2.0) 05/02/25 23:37
Total Bilirubin 0.6 mg/dl (0.2-1.3) 05/02/25 23:09
AST 21 U/L (17-59) 05/02/25 23:09
ALT < 10 U/L (0-50) 05/02/25 23:09
Alkaline Phosphatase 157 U/L (38-126) H 05/02/25 23:09
C-Reactive Protein 63.00 mg/L (0.0-10.00) H 05/06/25 05:39
Most recent labs reviewed.
Micro Results:
05/07/25 10:56 Blood Culture - Preliminary
Blood/Venous No Growth in 72 hours- Final report to follow
05/07/25 09:57 Blood Culture - Preliminary
Blood/Venous No Growth in 72 hours- Final report to follow
05/05/25 08:41 Blood Culture - Final
Blood/Venous No Growth - Final Report
05/05/25 07:28 Blood Culture - Final
Blood/Venous No Growth - Final Report
05/02/25 23:37 Blood Culture - Final
Blood/Venous No Growth - Final Report
05/03/25 11:43 Blood Culture - Final
Blood/Venous Enterococcus faecalis
Gram Stain - Final
05/03/25 11:02 Blood Culture - Final
Blood/Venous Enterococcus faecalis
Gram Stain - Final
05/03/25 00:14 Blood Culture - Preliminary
Blood/Venous Enterococcus faecalis
Gram Stain - Preliminary
05/03/25 06:19 MRSA Screen - Final
Nose No Methicillin Resistant Staphylococcus aureus isolated.
Imaging:
05/05/2025 ECHO (TTE): Technically difficult study. EF approximately 50%. No evidence of vegetation but consider LISA if clinically indicated. See full dictation for additional detail.
05/03/2025 CT abdomen/pelvis without contrast: Moderate colonic stool burden without evidence of obstruction. Prior L1-L5 posterior spinal fusion noted. There are endplate irregularities with mild surrounding paraspinal soft tissue
thickening/stranding at the L1-L2 intervertebral space which is concerning for discitis or osteomyelitis. A dedicated MRI with and without contrast may be considered as clinically indicated.
--- NOTE | 2025-05-10 13:30 | W.PN.ID1 ---
Date of Service
Date of Service: May 10, 2025
Today's Communication
Continue antibiotics. Desenex to the inguinal perineal area.
Assessment / Plan
Leukocytosis
Low back pain with suspected discitis / vertebral osteomyelitis
Bacteremia with E. faecalis
Constipation / obstipation
Elevated ESR
Elevated CRP
pA-fib
CML
COPD
Hx CVA
HTN
HLD
DM type II
CAD; Hx CT
ESRD�HD
Obesity
Recommendations:
Etiology of rising white count unclear. Back pain stable. ?secondary to pain
Blood cultures (05/03/25) with E. faecalis. Repeat blood cultures (05/05, 05/07) without growth
MRI findings compatible with discitis and osteomyelitis at L1-2. Possible paraspinal inflammation also noted.
TTE nondiagnostic. May consider LISA, although will not change duration of therapy (6 weeks)
Continue ampicillin and ceftriaxone
Follow white count and temperature curve.
Follow serial blood cultures to assess clearance.
Topical Desenex to the groin and perineal area.
����������������������������������������������������������
Chief Complaint
-: Bacteremia
Subjective / Review of Systems
Review of Systems: No Fever and No Chills
Vital Signs / Physical Exam
Vital Signs
Vital Signs
Temp Pulse Resp BP Pulse Ox
98.8 F 69 16 149/80 99
05/10/25 11:36 05/10/25 12:06 05/10/25 11:36 05/10/25 12:06 05/10/25 11:36
Physical Exam
Constitutional: Chronically Ill, Non-toxic and Other (Mild discomfort secondary to back pain)
Eyes: No Conjunctival Hemorrhage and Sclera Anicteric
Cardiovascular: S1/S2; Negative S3/S4
Pulmonary: Non Labored
Gastrointestinal: Soft and Non Tender
Musculoskeletal: Spinal Tenderness
Skin: Rash (Inguinal and perineal erythema noted)
Neurological: Awake and Alert
Psychological: Calm
Lines: HD Cath (left IJ temp actheter in place)
Objective Data
Lab Data
Lab Results
05/10/25 07:30
05/10/25 07:30
ESR 92 mm/hour (0-20) H 05/06/25 05:39
PT 16.9 Sec (11.4-14.6) H 05/03/25 07:46
INR 1.35 05/03/25 07:46
Estimated Creat Clear 11 ml/min 05/10/25 07:30
Lactic Acid 0.7 mmol/L (0.7-2.0) 05/02/25 23:37
Total Bilirubin 0.6 mg/dl (0.2-1.3) 05/02/25 23:09
AST 21 U/L (17-59) 05/02/25 23:09
ALT < 10 U/L (0-50) 05/02/25 23:09
Alkaline Phosphatase 157 U/L (38-126) H 05/02/25 23:09
C-Reactive Protein 63.00 mg/L (0.0-10.00) H 05/06/25 05:39
Most recent labs reviewed.
Micro Results:
05/07/25 10:56 Blood Culture - Preliminary
Blood/Venous No Growth in 72 hours- Final report to follow
05/07/25 09:57 Blood Culture - Preliminary
Blood/Venous No Growth in 72 hours- Final report to follow
05/05/25 08:41 Blood Culture - Final
Blood/Venous No Growth - Final Report
05/05/25 07:28 Blood Culture - Final
Blood/Venous No Growth - Final Report
05/02/25 23:37 Blood Culture - Final
Blood/Venous No Growth - Final Report
05/03/25 11:43 Blood Culture - Final
Blood/Venous Enterococcus faecalis
Gram Stain - Final
05/03/25 11:02 Blood Culture - Final
Blood/Venous Enterococcus faecalis
Gram Stain - Final
05/03/25 00:14 Blood Culture - Preliminary
Blood/Venous Enterococcus faecalis
Gram Stain - Preliminary
05/03/25 06:19 MRSA Screen - Final
Nose No Methicillin Resistant Staphylococcus aureus isolated.
Imaging:
05/05/2025 ECHO (TTE): Technically difficult study. EF approximately 50%. No evidence of vegetation but consider LISA if clinically indicated. See full dictation for additional detail.
05/03/2025 CT abdomen/pelvis without contrast: Moderate colonic stool burden without evidence of obstruction. Prior L1-L5 posterior spinal fusion noted. There are endplate irregularities with mild surrounding paraspinal soft tissue
thickening/stranding at the L1-L2 intervertebral space which is concerning for discitis or osteomyelitis. A dedicated MRI with and without contrast may be considered as clinically indicated.
--- NOTE | 2025-05-10 14:30 | WOUNDNOTE ---
[facility] RN note: Patient admitted with bleeding from arteriovenous fistula site.
See H&P for complete history.
PMH: h+p from chart 'Reports Other ( Arrthythmia (PAF), CAD, Cancer (CML), COPD, CVA, HTN, Hypercholesterolemia, NIDDM, DC, Renal failure (on dialysis), Other (Peripheral artery disease, left femoropopliteal bypass), Other (subdural hematoma) and
Other (R foot ulcer; FINESSE; obesity))
Past Surgical History: Reports Other (Cardiac (left fempop bypass) and Other (L femoral endarterectomy, popliteal angioplasty, dialysis graft left upper arm))'
Social History
Tobacco: Smoker
Wound Location and type/assessment: Patient known to service, last seen 04/14/25 s/p fall where he had bruises on coccyx, R hip, R lateral thigh, R posterior knee, back. R plantar lateral neuropathic healed ulcer with intact scab, he follows
customer service voice Dr. Ag. Today asked to see patient for R buttock ulcer, suspect residual from old bruise now open, appears to be a skin tear. Same darker discolored skin on Coccyx. Patient admitted he has fallen and hit his buttock. Today discovered
a blood blister/ DTI on R heel, suspect slowly evolving from past falls. Adhesive foam was in use and air overlay on bed. Found patient in bed laying across bed diagonally. Patient complained of pain when turning to L side, hx of chronic pain.
Confirmed with [employer]er Dr. Ag that he did not have a heel ulcer the last time she saw patient, but admitted it had been awhile. Vascular following for fistula site, made Renita Goodson NP aware and Dr. Thomas of new R heel wound. L heel
blanchable, intact but boggy.
Appetite: on a low cholesterol diet.
Pressure redistribution devices in place: Air overlay, Patient moves in bed sometimes with assist. Called [employer] for Offloading heel boots for both heels, nurse Tate received and put them on.
Plan: applied silicone border foam applied to R buttock. Silicone border foam applied to R heel, nurse aware to check daily for any changes. Applied adhesive foam to L heel to protect. Patient stated he has shoes with off loading inserts at home.
Recommend Podiatry or vascular to check R heel, received offloading orders and wound care from MAYELA Goodson. Updated and confirmed orders with Dr. Thomas and updated RN Tate.
Care plan to be updated and will follow as needed.
--- NOTE | 2025-05-10 14:34 | CM ---
Patient seen at bedside with physicians on . Patient c/o pain in back and will need possible IV antibiotics per chart review. CM will continue to follow for discharge planning needs.
Plan; SNF: [facility] vs [facility] per chart review.
[2025-05-10 16:29] LABS: Glucose - Point of Care 175 mg/dl (70-99)
[2025-05-10] MEDS: NOVOLOG FLEXPEN-LOW RESISTANCE 1 UNITS SC (17:17)
[2025-05-10] MEDS: DESENEX/MITRAZOL/ZEASORB 1 APPLIC TOPICAL (20:45)
[2025-05-10] MEDS: COLACE 100 MG PO (20:45)
[2025-05-10] MEDS: NORVASC 5 MG PO (20:46)
[2025-05-10] MEDS: TOPROL XL 25 MG PO (20:46)
[2025-05-10 21:46] LABS: Glucose - Point of Care 185 mg/dl (70-99)
[2025-05-10] MEDS: SENOKOT PO (22:24)
[2025-05-10] MEDS: LIPITOR 80 MG PO (22:24)
[2025-05-10] MEDS: MELATONIN 5 MG PO (22:24)
[2025-05-11] VITALS (8 sets, daily range): BP systolic 133–170; BP diastolic 51–84; PULSE 82–87; O2SAT 98; BMI 29.4
[2025-05-11] MEDS: ROXICODONE 20 MG PO ×2 (00:17→08:18)
[2025-05-11] MEDS: ROCEPHIN 2000 MG IV ×2 (05:21→17:45)
[2025-05-11] MEDS: STERILE WATER FOR INJECTION 20 ML IV ×2 (05:22→17:45)
--- NOTE | 2025-05-11 07:21 | W.PN.HOSP.TC ---
Addendum entered and electronically signed by Yazmin Thomas MD 05/11/25 16:08:
I saw and evaluated the patient independently. I reviewed the resident�s note and agree with findings and plan as documented by Dr. Larios.
GENERAL: well developed, chronically ill appearing male in no apparent distress
HEENT:NC/AT
HEART: regular rate and rhythm, +S1, +S2
LUNGS : clear to auscultation bilaterally
ABDOM: soft, nontender, nondistended, + bowel sounds
EXT: no cyanosis, clubbing, or edema--right arm with lary wrap in place--temp HD cath in place
NEUROLOGIC: grossly intact
: fungal groin infection
Enterococcus faecalis bacteremia with Vertebral osteomyelitis/discitis at L1-L2--presented as back pain with positive blood cultures from dialysis--MRI/CT scans confirm--no need for neurosurgical intervention--pain not well controlled--last positive
blood culture 05/03/25--ID following and started on IV ampicillin and ceftriaxone--will need 6 weeks IV abx--Change oxycodone to oral dilaudid Q6H with bowel regimen--cont Flexeril, s/p 1 dose steroid 05/09.
Acute blood loss anemia exacerbated by eliquis along with anemia of chronic disease--Bleeding from RUE AVG--Received 1 unit of PRBC here; Plavix and DOAC initially held but has been resumed with stable Hgb--Vascular surgery following, planning for
fistulogram once bacteremia cleared
Paroxysmal AFib/AFlutter--Has history of AF for which he takes metoprolol XL and Eliquis--Earlier in hospital stay had runs of AFL and RVR, metoprolol XL now twice daily, currently NSR
ESRD on HD-Nephrology consulted, input [id number] catheter placed-HD session M//
wounds--as per wound care R buttock ulcer, suspect residual from old bruise now open, appears to be a skin tear. Same darker discolored skin on Coccyx. Today 05/10/25 discovered a blood blister/ DTI on R heel, suspect slowly evolving from past
falls.
NIDDM--A1C 4.9 03/16/2025--Home regimen includes Ozempic; also on high intensity statin for vascular disease--GLP-1 held, continue with ISS and Accu-Cheks here for BG goal 140-180
CAD s/p CABG + PCI/PAD s/p LE bypass/Dyslipidemia--Home regimen includes high intensity statin, Plavix; also on DOAC for AF history--Home meds also include beta-keny for CAD, co-Q10
COPD without flare/FINESSE not on CPAP
Tobacco use--needs to quit--Home medications include albuterol MDI as needed
Essential hypertension--H/O hypotension--Home antihypertensive regimen includes metoprolol succinate--also on HD--Home meds also include midodrine as needed for SBP <100--Has IV labetalol and hydralazine ordered as needed for spikes
H/O CVA--Likely related to AF, no known history of cerebrovascular disease or ASD--Home regimen includes Plavix, Eliquis, high intensity statin
H/O CML--Not currently on TKI or other therapy--WBC has been persistently elevated in range of 16-30 here--Encourage OP follow-up with oncology
DVT proph--Home Eliquis
CODE STATUS-- Full code
disposition--trying to find SNF with onsite HD
Original Note:
Today's Communication/Plan
-
;/
Assessment / Plan
Assessment / Plan
Assessment/plan
#Enterococcus faecalis bacteremia
#Vertebral osteomyelitis/discitis at L1-L2
-Presented as back pain, positive blood cultures at dialysis last week; CT and MRI consistent
-Blood cultures here returned positive for Enterococcus faecalis; ID following and started on IV ampicillin and ceftriaxone
-Second set of blood cultures remain negative, third set have remained NGTD
-Continue with current IV antibiotics and trend CBC and temperature curve
-Continue on Dilaudid
-Will need 6 weeks total amount of antibiotics.
#Acute blood loss anemia
#Bleeding from RUE AVG
#Chronic anemia of kidney disease
-Presented with blood loss anemia due to venous stenosis of the RUE AVG in context of home Eliquis
-Received 1 unit of PRBC here; Plavix and DOAC initially held but has been resumed with stable Hgb
-Vascular surgery following, planning for fistulogram on 05/13 as bacteremia cleared
-Continue to trend CBC and monitor for bleeding
#Paroxysmal AF/AFL
-Has history of AF for which he takes metoprolol XL and Eliquis
-Earlier in hospital stay had runs of AFL and RVR, metoprolol XL now twice daily, currently NSR
-Will continue with regimen monitor on telemetry
-If recurrence of AFL may need to consider CTI ablation
#ESRD on HD
-Nephrology consulted, input appreciated
-non-tunneled catheter placed
-HD session //
#NIDDM
-A1C 4.9 03/16/2025
-Home regimen includes Ozempic; also on high intensity statin for vascular disease
-GLP-1 held, continue with ISS and Accu-Cheks here for BG goal 140-180
#CAD s/p CABG + PCI
#PAD s/p LE bypass
#Dyslipidemia
-Home regimen includes high intensity statin, Plavix; also on DOAC for AF history
-Home meds also include beta-keny for CAD, co-Q10
-No signs or symptoms of acute coronary syndrome or acute occlusive PAD
-Remains on home medications
#COPD without flare
#FINESSE not on CPAP
#Tobacco use
-Home medications include albuterol MDI as needed
-No recent PFTs to review
-No signs of flare
-Stable respiratory status here
#Primary hypertension
#H/O hypotension
-Home antihypertensive regimen includes metoprolol succinate but no first-line agents, also on HD
-Home meds also include midodrine as needed for SBP <100
-BP has been more on hypertensive side here secondary to pain
-Has IV labetalol and hydralazine ordered as needed for spikes
-Continue to address pain as above
#H/O CVA
-Likely related to AF, no known history of cerebrovascular disease or ASD
-Home regimen includes Plavix, Eliquis, high intensity statin
-No obvious residual deficits, no new FND
#H/O CML
-Not currently on TKI or other therapy
-WBC has been persistently elevated in range of 16-30 here
-Encourage OP follow-up with oncology
DVT prophylaxis: Home Eliquis
CODE STATUS: Full code
Anticipated Discharge: > 48 hours
Subjective/Interval History
-
patient seen and examined at bedside. Still with lower back pain. which he says improves with Dilaudid
Objective Data
-
Labs:
Laboratory Results
05/11/25
06:00
WBC Pending
Hgb Pending
Hct Pending
Plt Count Pending
Sodium Pending
Potassium Pending
Chloride Pending
Carbon Dioxide Pending
BUN Pending
Creatinine Pending
Glucose Pending
Calcium Pending
Vital Signs:
Vital Signs
Temp Pulse Resp BP Pulse Ox
98.3 F 76 16 148/65 99
05/11/25 03:10 05/11/25 03:10 05/11/25 03:10 05/11/25 03:10 05/11/25 03:10
I&O
05/10/25 05/11/25 05/12/25
06:59 06:59 06:59
Intake Total 290 / 290 848 / 848
Output Total 550 / 550 200 / 200
Balance -260 / -260 648 / 648
Review of Systems
-
History Source: Patient
All other systems: Reviewed and negative (except as documented)
Physical Exam
-
General: Well Developed, Well Nourished, Pain and Appears Chronically Ill
HEENT: Normocephalic
Respiratory: Clear to Auscultation and Non Labored Respirations; Negative Accessory Resp Muscle Use
Cardiac: Regular Rhythm and S1/S2
GI: Soft, Nontender, Nondistended and Normal Bowel Sounds
Musculoskeletal: No Edema and Other (Tenderness to palpation of lumbar spine)
Skin: Warm and Dry
Neuro: AO x 3 and Nonfocal/Grossly Intact
[2025-05-11 07:26] LABS: Glucose - Point of Care 123 mg/dl (70-99)
[2025-05-11] MEDS: NOVOLOG FLEXPEN-LOW RESISTANCE SC ×3 (07:30→17:02)
[2025-05-11] MEDS: FLEXERIL 10 MG PO ×2 (07:31→17:49)
[2025-05-11] MEDS: ELIQUIS 5 MG PO ×2 (08:02→20:27)
[2025-05-11] MEDS: NORVASC 5 MG PO ×2 (08:02→20:27)
[2025-05-11] MEDS: ZETIA 10 MG PO (08:02)
[2025-05-11] MEDS: COLACE 100 MG PO ×2 (08:03→20:26)
[2025-05-11] MEDS: PLAVIX 75 MG PO (08:03)
[2025-05-11] MEDS: TOPROL XL 25 MG PO ×2 (08:03→20:27)
[2025-05-11] MEDS: ZOLOFT 100 MG PO ×2 (08:03→20:27)
[2025-05-11] MEDS: RITALIN 30 MG PO (08:03)
[2025-05-11] MEDS: LIDOCAINE 4% PATCH TOPICAL ×2 (08:04→08:12)
[2025-05-11] MEDS: DESENEX/MITRAZOL/ZEASORB 1 APPLIC TOPICAL ×2 (08:05→20:26)
[2025-05-11 08:24] LABS: Blood Urea Nitrogen 52 mg/dl (9-20); Calcium 8.3 mg/dl (8.4-10.2); Carbon Dioxide 25 mmol/L (22-30); Chloride 99 mmol/L (98-107); Estimated Creatinine Clearance 14 ml/min; Glucose 118 mg/dl (70-99); Magnesium 2.8 mg/dl (1.6-2.3); Potassium 4.4 mmol/L (3.5-5.1); Sodium 134 mmol/L (135-145); eGFR 12.48
[2025-05-11 08:35] LABS: % Basophils 0.4 % (0-2); % Eosinophils 1.9 % (0-6); % Immature Granulocytes 0.7 % (0-0.5); % Lymphocytes 16.3 % (20.5-51.1); % Monocytes 12.4 % (1.7-9.3); % Neutrophils 68.3 % (42.2-75.2); Absolute Basophils 0.1 10^3/uL (0-0.2); Absolute Eosinophils 0.3 10^3/uL (0-0.7); Absolute Immature Granulocytes 0.1 10^3/uL (0-0.05); Absolute Lymphocytes 2.6 10^3/uL (1.2-3.4); Hematocrit 27.5 % (39.0-52.0); Hemoglobin 9.4 g/dL (13.0-18.0); Mean Corp Hgb Conc. 34.2 g/dL (33.0-37.0); Mean Corpuscular Hgb 32.3 pg (27.0-31.0); Mean Corpuscular Volume 94.5 fL (80.0-94.0); Mean Platelet Volume 10.1 fL (7.4-10.4); Nucleated Red Blood Cells % 0 % (-); Platelet Count 419 10^3/uL (130-400); Red Blood Cell Count 2.91 10^6/uL (4.70-6.10); Red Cell Dist. Width 15.2 % (11.5-14.5); White Blood Cell Count 16.1 10^3/uL (4.8-10.8)
[2025-05-11] MEDS: AMPICILLIN 108 MG IV ×2 (09:58→21:40)
--- NOTE | 2025-05-11 11:00 | WOUNDNOTE ---
WON RN NOTE: Followed up today to make sure patient using offloading heel boots and confirmed he is. Assessed R heel under silicone foam, no changes and blood blister remains intact. R plantar foot surgical site with intact scab, no drainage. Groin
skin folds with mild MASD, improved with use of fungal powder. After talking more to patient regarding heel wound, patient admits he probably did use heels to push himself up in bed and tends to lye mainly on R side. Patient today lying on back with
pillows under arms, confirmed he can't turn and reposition easily due to back pain. Currently on air overlay, patient willing to try air mattress. Called [facility] for [facility] Air mattress. CHAPIS Ybarra made aware and will place patient on new bed
when able. Placed Tru[employer]ue lite boots back on patient. Pressure ulcer prevention measures reviewed with patient, states he understands. Recommend patient follow up with Dr. Ag upon discharge for R heel wound, patient agrees and states he will.
[2025-05-11 11:54] LABS: Glucose - Point of Care 137 mg/dl (70-99)
[2025-05-11] MEDS: DILAUDID 1 MG IV (12:04)
--- NOTE | 2025-05-11 13:31 | W.PN.NEPH.PH ---
Today's Communication / Plan
-
hd tomorrow
Assessment/Plan
-
Impression:
AV fistula bleed
Leukocytosis/Enterococcus faecalis bacteremia obtained from blood cultures from dialysis earlier this week
ESRD MWF, [facility]
A-fib
DM2
CAD/CABG
Anemia
PAD
RUE AVF/ligated LUE AVG
Hyperphosphatemia
HTN
Diabetic neuropathy
Secondary hyperparathyroidism
Plan:
HD tomorrow via temporary catheter
d/w vasc, AVFgram on
severe intractable Back pain continues
BP improving
continue ampicilline for Efaecalis
likely need rehab
d/w pt
-
-
Date of Service: May 11, 2025
CC / HPI / ROS
-
Chief Complaint:
ESRD
History of Present Illness:
ESRD on Saturday schedule
tolerated HD yesterday
Hemodynamically stable
Remains on ampicillin for Enterococcus faecalis bacteremia
no fever, leucocytosis is improving to 16
Review of Systems:
Temp IJ cath
No chest pain or shortness of breath
Severe lower back pain
Labs
-
Labs:
WBC 16.1 10^3/uL (4.8-10.8) H 05/11/25 07:33
RBC 2.91 10^6/uL (4.70-6.10) L 05/11/25 07:33
Hgb 9.4 g/dL (13.0-18.0) L 05/11/25 07:33
Hct 27.5 % (39.0-52.0) L 05/11/25 07:33
Plt Count 419 10^3/uL (130-400) H 05/11/25 07:33
Sodium 134 mmol/L (135-145) L 05/11/25 07:33
Potassium 4.4 mmol/L (3.5-5.1) 05/11/25 07:33
Chloride 99 mmol/L (98-107) 05/11/25 07:33
Carbon Dioxide 25 mmol/L (22-30) 05/11/25 07:33
BUN 52 mg/dl (9-20) H 05/11/25 07:33
Creatinine 4.8 mg/dL (0.7-1.3) H* 05/11/25 07:33
eGFR 12.48 05/11/25 07:33
Glucose 118 mg/dl (70-99) H 05/11/25 07:33
Calcium 8.3 mg/dl (8.4-10.2) L 05/11/25 07:33
Albumin 4.2 g/dl (3.5-5.0) 05/02/25 23:09
Physical Exam
-
Vital Signs:
Vital Signs
Temp Pulse Resp BP Pulse Ox
99.2 F 80 16 133/51 97
05/11/25 11:25 05/11/25 11:25 05/11/25 11:25 05/11/25 11:25 05/11/25 11:25
Cardiovascular:: Regular rate and rhythm
Respiratory:: Bilateral: CTA
Lung Excursion:: Normal
Abdomen:: Nontender and Soft
Bowel Sounds:: Normal
Extremity Edema:: None: Bilateral:
Luther Catheter: No
--- NOTE | 2025-05-11 14:17 | CM ---
Patient seen at bedside on with physicians and patient . Patient and made aware of acceptance by [facility] and need for IV antibiotics at the facility. Patient with concerns about pain and wanting to go home but seemed to
understand need for SNF at this time. Patient to discuss options with . CM will continue to follow for discharge planning needs.
Plan; SNF for [facility]
[2025-05-11] MEDS: DILAUDID 2 MG PO ×2 (14:31→20:33)
--- NOTE | 2025-05-11 15:31 | W.PN.ID1 ---
Date of Service
Date of Service: May 11, 2025
Today's Communication
Continue antibiotics.
Assessment / Plan
Leukocytosis
Low back pain with suspected discitis / vertebral osteomyelitis
Bacteremia with E. faecalis
Constipation / obstipation
Elevated ESR
Elevated CRP
pA-fib
CML
COPD
Hx CVA
HTN
HLD
DM type II
CAD; Hx AR
ESRD�HD
Obesity
Recommendations:
White count improved today.
Blood cultures (05/03/25) with E. faecalis. Repeat blood cultures (05/05, 05/07) without growth
MRI findings compatible with discitis and osteomyelitis at L1-2. Possible paraspinal inflammation also noted.
TTE nondiagnostic. May consider LISA, although will not change duration of therapy (6 weeks)
Continue ampicillin and ceftriaxone through 06/16/2025 (6 weeks from first negative blood culture)
Follow white count and temperature curve.
Follow serial blood cultures to assess clearance. Blood cultures from 05/05 have been finalized with no growth.
Continue topical Desenex to the groin and perineal area.
����������������������������������������������������������
Chief Complaint
-: Bacteremia
Subjective / Review of Systems
Patient seen and examined. Reports mild improvement in low back pain. Less inguinal/perineal discomfort.
Review of Systems: No Fever and No Chills
Vital Signs / Physical Exam
Vital Signs
Vital Signs
Temp Pulse Resp BP Pulse Ox
99.2 F 80 16 133/51 97
05/11/25 11:25 05/11/25 11:25 05/11/25 11:25 05/11/25 11:25 05/11/25 11:25
Physical Exam
Constitutional: Chronically Ill, Non-toxic and Other (Mild discomfort secondary to back pain)
Eyes: No Conjunctival Hemorrhage and Sclera Anicteric
Cardiovascular: S1/S2; Negative S3/S4
Pulmonary: Non Labored
Gastrointestinal: Soft and Non Tender
Musculoskeletal: Spinal Tenderness
Neurological: Awake and Alert
Psychological: Calm
Lines: HD Cath (left IJ temp actheter in place)
Objective Data
Lab Data
Lab Results
05/11/25 07:33
05/11/25 07:33
ESR 92 mm/hour (0-20) H 05/06/25 05:39
PT 16.9 Sec (11.4-14.6) H 05/03/25 07:46
INR 1.35 05/03/25 07:46
Estimated Creat Clear 14 ml/min 05/11/25 07:33
Lactic Acid 0.7 mmol/L (0.7-2.0) 05/02/25 23:37
Total Bilirubin 0.6 mg/dl (0.2-1.3) 05/02/25 23:09
AST 21 U/L (17-59) 05/02/25 23:09
ALT < 10 U/L (0-50) 05/02/25 23:09
Alkaline Phosphatase 157 U/L (38-126) H 05/02/25 23:09
C-Reactive Protein 63.00 mg/L (0.0-10.00) H 05/06/25 05:39
Most recent labs reviewed.
Micro Results:
05/07/25 10:56 Blood Culture - Preliminary
Blood/Venous No Growth in 4 days- Final report to follow
05/07/25 09:57 Blood Culture - Preliminary
Blood/Venous No Growth in 4 days- Final report to follow
05/03/25 00:14 Blood Culture - Final
Blood/Venous Enterococcus faecalis
Gram Stain - Final
05/05/25 08:41 Blood Culture - Final
Blood/Venous No Growth - Final Report
05/05/25 07:28 Blood Culture - Final
Blood/Venous No Growth - Final Report
05/02/25 23:37 Blood Culture - Final
Blood/Venous No Growth - Final Report
05/03/25 11:43 Blood Culture - Final
Blood/Venous Enterococcus faecalis
Gram Stain - Final
05/03/25 11:02 Blood Culture - Final
Blood/Venous Enterococcus faecalis
Gram Stain - Final
05/03/25 06:19 MRSA Screen - Final
Nose No Methicillin Resistant Staphylococcus aureus isolated.
Imaging:
05/05/2025 ECHO (TTE): Technically difficult study. EF approximately 50%. No evidence of vegetation but consider LISA if clinically indicated. See full dictation for additional detail.
05/03/2025 CT abdomen/pelvis without contrast: Moderate colonic stool burden without evidence of obstruction. Prior L1-L5 posterior spinal fusion noted. There are endplate irregularities with mild surrounding paraspinal soft tissue
thickening/stranding at the L1-L2 intervertebral space which is concerning for discitis or osteomyelitis. A dedicated MRI with and without contrast may be considered as clinically indicated.
[2025-05-11 16:45] LABS: Glucose - Point of Care 131 mg/dl (70-99)
[2025-05-11 21:27] LABS: Glucose - Point of Care 138 mg/dl (70-99)
[2025-05-11] MEDS: LIPITOR 80 MG PO (21:40)
[2025-05-11] MEDS: MELATONIN 5 MG PO (21:40)
[2025-05-11] MEDS: SENOKOT PO (21:42)
[2025-05-11] MEDS: TYLENOL 650 MG PO (21:47)
[2025-05-12] MEDS: FLEXERIL 10 MG PO ×3 (01:49→22:14)
[2025-05-12 03:30] VITALS: BP 179/60
--- NOTE | 2025-05-12 04:48 | DOWNTIME ---
Addendum entered by Samuel Rodriguez RN 05/12/25 14:12:
Correction to downtime 05/12/2025 from 0100 to 05/12/25 at 0415.
Original Note:
There was a [employer]Original [employer]inator Downtime on 05/11/2025 from 0100 to 05/12/2025 at 0415. Downtime documentation of patient's care, including medication administrations, has been reconciled in the electronic record per guidelines. Refer to the
patient's paper chart under the miscellaneous tab to see printed paper medication records and downtime forms.
[2025-05-12 05:45] VITALS: BMI 28.9
[2025-05-12] MEDS: DILAUDID 2 MG PO ×4 (06:16→23:36)
[2025-05-12] MEDS: ROCEPHIN 2000 MG IV ×2 (06:17→17:46)
[2025-05-12] MEDS: STERILE WATER FOR INJECTION 20 ML IV ×2 (06:17→17:47)
[2025-05-12 07:00] VITALS: BP 170/76
--- NOTE | 2025-05-12 07:32 | W.PN.HOSP.TC ---
Addendum entered and electronically signed by Yazmin Thomas MD 05/12/25 19:36:
I saw and evaluated the patient independently. I reviewed the resident�s note and agree with findings and plan as documented by Dr. Larios.
GENERAL: well developed, chronically ill appearing male in no apparent distress
HEENT:NC/AT
HEART: regular rate and rhythm, +S1, +S2
LUNGS : clear to auscultation bilaterally
ABDOM: soft, nontender, nondistended, + bowel sounds
EXT: no cyanosis, clubbing, or edema--right arm with lary wrap in place--temp HD cath in place
NEUROLOGIC: grossly intact
: fungal groin infection
Enterococcus faecalis bacteremia with Vertebral osteomyelitis/discitis at L1-L2--presented as back pain with positive blood cultures from dialysis--MRI/CT scans confirm--no need for neurosurgical intervention--pain not well controlled--last positive
blood culture 05/03/25--ID following and started on IV ampicillin and ceftriaxone--will need 6 weeks IV abx-- oral dilaudid Q6H with bowel regimen, with improvement in pain, has spasms that are intermittent--consider adding lidocaine patch post
fistulogram--cont Flexeril, s/p 1 dose steroid 05/09.
Acute blood loss anemia exacerbated by eliquis along with anemia of chronic disease--Bleeding from RUE AVG--Received 1 unit of PRBC here; Plavix and DOAC initially held but has been resumed with stable Hgb--Vascular surgery following, planning for
fistulogram 05/13
Paroxysmal AFib/AFlutter--Has history of AF for which he takes metoprolol XL and Eliquis--Earlier in hospital stay had runs of AFL and RVR, metoprolol XL now twice daily, currently NSR
ESRD on HD-Nephrology consulted, input [id number] catheter placed-HD session M/W/
wounds--as per wound care: R buttock ulcer, suspect residual from old bruise now open, appears to be a skin tear. Same darker discolored skin on Coccyx. Today 05/10/25 discovered a blood blister/ DTI on R heel, suspect slowly evolving from past
falls.
NIDDM--A1C 4.9 03/16/2025--Home regimen includes Ozempic; also on high intensity statin for vascular disease--GLP-1 held, continue with ISS and Accu-Cheks here for BG goal 140-180
CAD s/p CABG + PCI/PAD s/p LE bypass/Dyslipidemia--Home regimen includes high intensity statin, Plavix; also on DOAC for AF history--Home meds also include beta-keny for CAD, co-Q10
COPD without flare/FINESSE not on CPAP
Tobacco use--needs to quit--Home medications include albuterol MDI as needed
Essential hypertension--H/O hypotension--Home antihypertensive regimen includes metoprolol succinate--also on HD--Home meds also include midodrine as needed for SBP <100--Has IV labetalol and hydralazine ordered as needed for spikes
H/O CVA--Likely related to AF, no known history of cerebrovascular disease or ASD--Home regimen includes Plavix, Eliquis, high intensity statin
H/O CML--Not currently on TKI or other therapy--WBC has been persistently elevated in range of 16-30 here--Encourage OP follow-up with oncology
DVT proph--Home Eliquis
CODE STATUS-- Full code
disposition--trying to find SNF with onsite HD--pt would rather stay here, explained not an option--can place PICC per ID
Original Note:
Today's Communication/Plan
-
;/
Assessment / Plan
Assessment / Plan
Assessment/plan
#Enterococcus faecalis bacteremia
#Vertebral osteomyelitis/discitis at L1-L2
-Presented as back pain, positive blood cultures at dialysis last week; CT and MRI consistent
-Blood cultures here returned positive for Enterococcus faecalis; ID following and started on IV ampicillin and ceftriaxone
-Second set of blood cultures remain negative, third set have remained NGTD
-Continue with current IV antibiotics and trend CBC and temperature curve
-Continue on Dilaudid PO Q6
-Bowel Regimen
-Will need 6 weeks total amount of antibiotics.
#Acute blood loss anemia
#Bleeding from RUE AVG
#Chronic anemia of kidney disease
-Presented with blood loss anemia due to venous stenosis of the RUE AVG in context of home Eliquis
-Received 1 unit of PRBC here; Plavix and DOAC initially held but has been resumed with stable Hgb
-Vascular surgery following, planning for fistulogram on 05/13 as bacteremia cleared.
-Hold Eliquis today.
-Continue to trend CBC and monitor for bleeding
#Paroxysmal AF/AFL
-Has history of AF for which he takes metoprolol XL and Eliquis
-Earlier in hospital stay had runs of AFL and RVR, metoprolol XL now twice daily, currently NSR
-Will continue with regimen monitor on telemetry
-If recurrence of AFL may need to consider CTI ablation
#ESRD on HD
-Nephrology consulted, input appreciated
-non-tunneled catheter placed
-HD session //
#NIDDM
-A1C 4.9 03/16/2025
-Home regimen includes Ozempic; also on high intensity statin for vascular disease
-GLP-1 held, continue with ISS and Accu-Cheks here for BG goal 140-180
#CAD s/p CABG + PCI
#PAD s/p LE bypass
#Dyslipidemia
-Home regimen includes high intensity statin, Plavix; also on DOAC for AF history
-Home meds also include beta-keny for CAD, co-Q10
-No signs or symptoms of acute coronary syndrome or acute occlusive PAD
-Remains on home medications
#COPD without flare
#FINESSE not on CPAP
#Tobacco use
-Home medications include albuterol MDI as needed
-No recent PFTs to review
-No signs of flare
-Stable respiratory status here
#Primary hypertension
#H/O hypotension
-Home antihypertensive regimen includes metoprolol succinate but no first-line agents, also on HD
-Home meds also include midodrine as needed for SBP <100
-BP has been more on hypertensive side here secondary to pain
-Has IV labetalol and hydralazine ordered as needed for spikes
-Continue to address pain as above
#H/O CVA
-Likely related to AF, no known history of cerebrovascular disease or ASD
-Home regimen includes Plavix, Eliquis, high intensity statin
-No obvious residual deficits, no new FND
#Right buttock ulcer
#DTI on R heel
-Continue Wound care
#H/O CML
-Not currently on TKI or other therapy
-WBC has been persistently elevated in range of 16-30 here
-Encourage OP follow-up with oncology
DVT prophylaxis: Eliquis(Hold today)
CODE STATUS: Full code
Anticipated Discharge: > 48 hours
Subjective/Interval History
-
Patient seen and examined at bedside. Reports improvement of pain with PO Dilaudid.
Objective Data
-
Labs:
Laboratory Results
05/12/25
06:00
WBC Pending
Hgb Pending
Hct Pending
Plt Count Pending
Sodium Pending
Potassium Pending
Chloride Pending
Carbon Dioxide Pending
BUN Pending
Creatinine Pending
Glucose Pending
Calcium Pending
Vital Signs:
Vital Signs
Temp Pulse Resp BP Pulse Ox
97.6 F 69 18 179/60 99
05/12/25 03:30 05/12/25 03:30 05/12/25 03:30 05/12/25 03:30 05/12/25 03:30
I&O
05/11/25 05/12/25 05/13/25
06:59 06:59 06:59
Intake Total 848 / 848 978 / 978
Output Total 200 / 200 325 / 325
Balance 648 / 648 653 / 653
Review of Systems
-
History Source: Patient
All other systems: Reviewed and negative (except as documented)
Physical Exam
-
General: Well Developed, Well Nourished and Pain
HEENT: Normocephalic
Respiratory: Clear to Auscultation and Non Labored Respirations; Negative Accessory Resp Muscle Use
Cardiac: Regular Rhythm and S1/S2
GI: Soft, Nontender, Nondistended and Normal Bowel Sounds
Musculoskeletal: No Edema and Other (Tenderness to palpation of lumbar spine)
Skin: Warm and Dry
Neuro: AO x 3 and Nonfocal/Grossly Intact
[2025-05-12 07:56] LABS: Glucose - Point of Care 106 mg/dl (70-99)
[2025-05-12] MEDS: NOVOLOG FLEXPEN-LOW RESISTANCE SC ×2 (08:04→17:34)
[2025-05-12] MEDS: ZETIA 10 MG PO (08:09)
[2025-05-12] MEDS: COLACE 100 MG PO (08:09)
[2025-05-12] MEDS: TOPROL XL 25 MG PO ×2 (08:10→20:09)
[2025-05-12] MEDS: ELIQUIS 5 MG PO (08:10)
[2025-05-12] MEDS: DESENEX/MITRAZOL/ZEASORB 1 APPLIC TOPICAL ×2 (08:10→20:10)
[2025-05-12] MEDS: NORVASC 5 MG PO ×2 (08:11→20:09)
[2025-05-12] MEDS: PLAVIX 75 MG PO (08:11)
[2025-05-12] MEDS: LIDOCAINE 4% PATCH 1 PATCH TOPICAL (08:14)
[2025-05-12] MEDS: NEPHROCAP 1 CAPSULE PO (08:14)
[2025-05-12] MEDS: ZOLOFT 100 MG PO ×2 (08:51→20:09)
[2025-05-12] MEDS: RITALIN 30 MG PO (08:51)
[2025-05-12] MEDS: AMPICILLIN 108 MG IV ×2 (09:34→22:07)
--- NOTE | 2025-05-12 10:23 | CM ---
Addendum entered by Stephanie Orr 05/12/25 17:27:
flow sheets and antibody results sent.
Original Note:
Clinical information for HD faxed to [facility] [phone]; pending flow sheets and antibody results. CM will continue to follow for discharge planning needs.
[2025-05-12 11:00] VITALS: BP 174/81
[2025-05-12 11:24] VITALS: BP 174/51; BP 174/81; PULSE 65; PULSE 66; O2SAT 99
[2025-05-12 11:41] LABS: Glucose - Point of Care 156 mg/dl (70-99)
[2025-05-12] MEDS: MIRALAX PO (12:08)
[2025-05-12] MEDS: DULCOLAX RECTAL (12:08)
[2025-05-12] MEDS: NOVOLOG FLEXPEN-LOW RESISTANCE 1 UNITS SC (12:56)
[2025-05-12 12:58] LABS: % Basophils 0.3 % (0-2); % Eosinophils 2.8 % (0-6); % Immature Granulocytes 0.9 % (0-0.5); % Lymphocytes 9.9 % (20.5-51.1); % Monocytes 9.9 % (1.7-9.3); % Neutrophils 76.2 % (42.2-75.2); Absolute Basophils 0.1 10^3/uL (0-0.2); Absolute Eosinophils 0.6 10^3/uL (0-0.7); Absolute Immature Granulocytes 0.2 10^3/uL (0-0.05); Absolute Lymphocytes 1.9 10^3/uL (1.2-3.4); Absolute Monocytes 1.9 10^3/uL (0.1-0.6); Absolute Neutrophils 14.8 10^3/uL (1.4-6.5); Hematocrit 29.6 % (39.0-52.0); Hemoglobin 9.8 g/dL (13.0-18.0); Mean Corp Hgb Conc. 33.1 g/dL (33.0-37.0); Mean Corpuscular Hgb 31.3 pg (27.0-31.0); Mean Corpuscular Volume 94.6 fL (80.0-94.0); Mean Platelet Volume 9.9 fL (7.4-10.4); Nucleated Red Blood Cells % 0 % (-); Platelet Count 438 10^3/uL (130-400); Red Blood Cell Count 3.13 10^6/uL (4.70-6.10); Red Cell Dist. Width 15.2 % (11.5-14.5); White Blood Cell Count 19.5 10^3/uL (4.8-10.8)
--- NOTE | 2025-05-12 13:15 | W.PN.ID1 ---
Date of Service
Date of Service: May 12, 2025
Today's Communication
Continue current course of antibiotics. See below�
Assessment / Plan
Leukocytosis
Low back pain 2* L1-2 discitis / vertebral osteomyelitis
Bacteremia with E. faecalis
- cleared
Constipation / obstipation
Elevated ESR
Elevated CRP
pA-fib
CML
COPD
Hx CVA
HTN
HLD
DM type II
CAD; Hx [facility]
ESRD�HD
Obesity
Recommendations:
White count improved today.
Blood cultures (05/03/25) with E. faecalis. Repeat blood cultures (05/05, 05/07) without growth
MRI findings compatible with discitis and osteomyelitis at L1-2. Possible paraspinal inflammation also noted.
TTE nondiagnostic. May consider LISA, although will not change duration of therapy (6 weeks)
--> Continue ampicillin and ceftriaxone through 06/16/2025 (6 weeks from first negative blood culture)
Follow white count and temperature curve.
Continue topical Desenex to the groin and perineal area.
����������������������������������������������������������
Chief Complaint
-: Bacteremia
Subjective / Review of Systems
Review of Systems: No Fever and No Chills
Vital Signs / Physical Exam
Vital Signs
Vital Signs
Temp Pulse Resp BP Pulse Ox
97.8 F 66 17 174/81 99
05/12/25 11:00 05/12/25 11:00 05/12/25 11:00 05/12/25 11:00 05/12/25 11:00
Physical Exam
Constitutional: Chronically Ill, Non-toxic and Other (Mild discomfort secondary to back pain)
Eyes: No Conjunctival Hemorrhage and Sclera Anicteric
Cardiovascular: S1/S2; Negative S3/S4
Pulmonary: Non Labored
Gastrointestinal: Soft and Non Tender
Musculoskeletal: Spinal Tenderness
Neurological: Awake and Alert
Psychological: Calm
Lines: HD Cath (left IJ temp actheter in place)
Objective Data
Lab Data
Lab Results
05/12/25 12:29
ESR 92 mm/hour (0-20) H 05/06/25 05:39
PT 16.9 Sec (11.4-14.6) H 05/03/25 07:46
INR 1.35 05/03/25 07:46
Estimated Creat Clear 14 ml/min 05/11/25 07:33
Lactic Acid 0.7 mmol/L (0.7-2.0) 05/02/25 23:37
Total Bilirubin 0.6 mg/dl (0.2-1.3) 05/02/25 23:09
AST 21 U/L (17-59) 05/02/25 23:09
ALT < 10 U/L (0-50) 05/02/25 23:09
Alkaline Phosphatase 157 U/L (38-126) H 05/02/25 23:09
C-Reactive Protein 63.00 mg/L (0.0-10.00) H 05/06/25 05:39
Most recent labs reviewed.
Micro Results:
05/07/25 10:56 Blood Culture - Final
Blood/Venous No Growth - Final Report
05/07/25 09:57 Blood Culture - Final
Blood/Venous No Growth - Final Report
05/03/25 00:14 Blood Culture - Final
Blood/Venous Enterococcus faecalis
Gram Stain - Final
05/05/25 08:41 Blood Culture - Final
Blood/Venous No Growth - Final Report
05/05/25 07:28 Blood Culture - Final
Blood/Venous No Growth - Final Report
05/02/25 23:37 Blood Culture - Final
Blood/Venous No Growth - Final Report
05/03/25 11:43 Blood Culture - Final
Blood/Venous Enterococcus faecalis
Gram Stain - Final
05/03/25 11:02 Blood Culture - Final
Blood/Venous Enterococcus faecalis
Gram Stain - Final
05/03/25 06:19 MRSA Screen - Final
Nose No Methicillin Resistant Staphylococcus aureus isolated.
Imaging:
05/05/2025 ECHO (TTE): Technically difficult study. EF approximately 50%. No evidence of vegetation but consider LISA if clinically indicated. See full dictation for additional detail.
05/03/2025 CT abdomen/pelvis without contrast: Moderate colonic stool burden without evidence of obstruction. Prior L1-L5 posterior spinal fusion noted. There are endplate irregularities with mild surrounding paraspinal soft tissue
thickening/stranding at the L1-L2 intervertebral space which is concerning for discitis or osteomyelitis. A dedicated MRI with and without contrast may be considered as clinically indicated.
[2025-05-12 13:26] LABS: Blood Urea Nitrogen 67 mg/dl (9-20); Calcium 8.6 mg/dl (8.4-10.2); Carbon Dioxide 23 mmol/L (22-30); Chloride 95 mmol/L (98-107); Estimated Creatinine Clearance 10 ml/min; Glucose 162 mg/dl (70-99); Magnesium 2.8 mg/dl (1.6-2.3); Potassium 4.6 mmol/L (3.5-5.1); Sodium 134 mmol/L (135-145); eGFR 8.52
--- NOTE | 2025-05-12 13:46 | W.PN.NEPH.HD ---
Assessment
-
Patient seen on HD
sbp stable at 165 with current u/f
for AVF gram tomorrow, HD via temp cath
maintain ampicilline and ceftriaxone until 06/16
Progress Note - Hemodialysis
-
Date of Service: May 12, 2025
Duration: 30 minutes and 3 hours
Potassium Bath: 3
Calcium Bath: 2.5
Opti-Dialyzer: 160
Ultrafiltration: Other (2 kg)
Blood Flow: 400
Dialysate Flow: 600
Heparin: None
EPO: 6000
[2025-05-12] MEDS: RETACRIT 6000 UNITS IV (14:48)
[2025-05-12 15:00] VITALS: BP 141/67
[2025-05-12 17:07] LABS: Glucose - Point of Care 112 mg/dl (70-99)
[2025-05-12] MEDS: COLACE PO (20:12)
[2025-05-12 21:03] LABS: Glucose - Point of Care 132 mg/dl (70-99)
[2025-05-12] MEDS: SENOKOT PO (22:07)
[2025-05-12] MEDS: MELATONIN 5 MG PO (22:07)
[2025-05-12] MEDS: LIPITOR 80 MG PO (22:07)
[2025-05-12 23:00] VITALS: BP 160/67
[2025-05-12] MEDS: MEDROL 32 MG PO (23:36)
[2025-05-13 05:50] LABS: Glucose - Point of Care 163 mg/dl (70-99)
[2025-05-13 06:00] VITALS: BMI 28.7
[2025-05-13] MEDS: ROCEPHIN 2000 MG IV ×2 (06:28→17:23)
[2025-05-13] MEDS: DILAUDID 2 MG PO ×3 (06:28→17:24)
[2025-05-13] MEDS: STERILE WATER FOR INJECTION 20 ML IV ×2 (06:29→17:23)
[2025-05-13 07:00] VITALS: BP 177/80
--- NOTE | 2025-05-13 07:32 | W.PN.HOSP.TC ---
Addendum entered and electronically signed by Yazmin Thomas MD 05/13/25 19:01:
I saw and evaluated the patient independently. I reviewed the resident�s note and agree with findings and plan as documented by Dr. Larios.
GENERAL: well developed, chronically ill appearing male in no apparent distress
HEENT: NC/AT
HEART: regular rate and rhythm, +S1, +S2
LUNGS : clear to auscultation bilaterally
ABDOM: soft, nontender, nondistended, + bowel sounds
EXT: no cyanosis, clubbing, or edema--right arm with lary wrap in place--temp HD cath in place
NEUROLOGIC: grossly intact
: fungal groin infection
Enterococcus faecalis bacteremia with Vertebral osteomyelitis/discitis at L1-L2--presented as back pain with positive blood cultures from dialysis--MRI/CT scans confirm--no need for neurosurgical intervention--pain not well controlled--last positive
blood culture 05/03/25--ID following and started on IV ampicillin and ceftriaxone--will need 6 weeks IV abx-- oral dilaudid Q6H with bowel regimen, with improvement in pain, has spasms that are intermittent--on lidocaine patch--cont Flexeril, s/p 1
dose steroid 05/09.
Acute blood loss anemia exacerbated by eliquis along with anemia of chronic disease--Bleeding from RUE AVG--Received 1 unit of PRBC here; Plavix and DOAC initially held but has been resumed with stable Hgb--Vascular surgery following, planning for
fistulogram--was postponed 05/13, vascular to reschedule
Paroxysmal AFib/AFlutter--Has history of AF for which he takes metoprolol XL and Eliquis--Earlier in hospital stay had runs of AFL and RVR, metoprolol XL now twice daily, currently NSR
ESRD on HD-Nephrology consulted, input [id number] catheter placed-HD session M//
wounds--as per wound care: R buttock ulcer, suspect residual from old bruise now open, appears to be a skin tear. Same darker discolored skin on Coccyx. Today 05/10/25 discovered a blood blister/ DTI on R heel, suspect slowly evolving from past
falls.
NIDDM--A1C 4.9 03/16/2025--Home regimen includes Ozempic; also on high intensity statin for vascular disease--GLP-1 held, continue with ISS and Accu-Cheks here for BG goal 140-180
CAD s/p CABG + PCI/PAD s/p LE bypass/Dyslipidemia--Home regimen includes high intensity statin, Plavix; also on DOAC for AF history--Home meds also include beta-keny for CAD, co-Q10
COPD without flare/FINESSE not on CPAP
Tobacco use--needs to quit--Home medications include albuterol MDI as needed
Essential hypertension--H/O hypotension--Home antihypertensive regimen includes metoprolol succinate--also on HD--Home meds also include midodrine as needed for SBP <100--Has IV labetalol and hydralazine ordered as needed for spikes
H/O CVA--Likely related to AF, no known history of cerebrovascular disease or ASD--Home regimen includes Plavix, Eliquis, high intensity statin
H/O CML--Not currently on TKI or other therapy--WBC has been persistently elevated in range of 16-30 here--Encourage OP follow-up with oncology
DVT proph--Home Eliquis
CODE STATUS-- Full code
disposition--trying to find SNF with onsite HD--pt would rather stay here, explained not an option--can place PICC per ID
Original Note:
Today's Communication/Plan
-
;/
Assessment / Plan
Assessment / Plan
Assessment/plan
#Enterococcus faecalis bacteremia
#Vertebral osteomyelitis/discitis at L1-L2
-Presented as back pain, positive blood cultures at dialysis last week; CT and MRI consistent
-Blood cultures here returned positive for Enterococcus faecalis; ID following and started on IV ampicillin and ceftriaxone
-Second set of blood cultures remain negative, third set have remained NGTD
-Continue with current IV antibiotics and trend CBC and temperature curve
-Continue on Dilaudid PO Q6
-Bowel Regimen
-Will need 6 weeks total amount of antibiotics through 06/16/2025.
#Acute blood loss anemia
#Bleeding from RUE AVG
#Chronic anemia of kidney disease
-Presented with blood loss anemia due to venous stenosis of the RUE AVG in context of home Eliquis
-Received 1 unit of PRBC here; Plavix and DOAC initially held but has been resumed with stable Hgb
-Vascular surgery following, planning for fistulogram today 05/13 as bacteremia cleared.
-Holding Eliquis for procedure today.
-Continue to trend CBC and monitor for bleeding
#Paroxysmal AF/AFL
-Has history of AF for which he takes metoprolol XL and Eliquis
-Earlier in hospital stay had runs of AFL and RVR, metoprolol XL now twice daily, currently NSR
-Will continue with regimen monitor on telemetry
-If recurrence of AFL may need to consider CTI ablation
#ESRD on HD
-Nephrology consulted, input appreciated
-non-tunneled catheter placed
-HD session M//
#NIDDM
-A1C 4.9 03/16/2025
-Home regimen includes Ozempic; also on high intensity statin for vascular disease
-GLP-1 held, continue with ISS and Accu-Cheks here for BG goal 140-180
#CAD s/p CABG + PCI
#PAD s/p LE bypass
#Dyslipidemia
-Home regimen includes high intensity statin, Plavix; also on DOAC for AF history
-Home meds also include beta-keny for CAD, co-Q10
-No signs or symptoms of acute coronary syndrome or acute occlusive PAD
-Remains on home medications
#COPD without flare
#FINESSE not on CPAP
#Tobacco use
-Home medications include albuterol MDI as needed
-No recent PFTs to review
-No signs of flare
-Stable respiratory status here
#Primary hypertension
#H/O hypotension
-Home antihypertensive regimen includes metoprolol succinate but no first-line agents, also on HD
-Home meds also include midodrine as needed for SBP <100
-BP has been more on hypertensive side here secondary to pain
-Has IV labetalol and hydralazine ordered as needed for spikes
-Continue to address pain as above
#H/O CVA
-Likely related to AF, no known history of cerebrovascular disease or ASD
-Home regimen includes Plavix, Eliquis, high intensity statin
-No obvious residual deficits, no new FND
#Right buttock ulcer
#DTI on R heel
-Continue Wound care
#H/O CML
-Not currently on TKI or other therapy
-WBC has been persistently elevated in range of 16-30 here
-Encourage OP follow-up with oncology
DVT prophylaxis: Eliquis(Hold today)
CODE STATUS: Full code
Anticipated Discharge: > 48 hours
Subjective/Interval History
-
patient seen and examined at bedside. Reports improvement of lower back pain. No acute complaint at bedside.
Objective Data
-
Labs:
Laboratory Results
05/13/25
07:29
WBC Pending
Hgb Pending
Hct Pending
Plt Count Pending
PT Pending
INR Pending
APTT Pending
Sodium Pending
Potassium Pending
Chloride Pending
Carbon Dioxide Pending
BUN Pending
Creatinine Pending
Glucose Pending
Calcium Pending
Vital Signs:
Vital Signs
Temp Pulse Resp BP Pulse Ox
99.7 F 71 16 160/67 95
05/12/25 23:00 05/12/25 23:00 05/12/25 23:00 05/12/25 23:00 05/12/25 23:00
I&O
05/12/25 05/13/25 05/14/25
06:59 06:59 06:59
Intake Total 978 / 978 380 / 380
Output Total 325 / 325 550 / 550
Balance 653 / 653 -170 / -170
Review of Systems
-
History Source: Patient
All other systems: Reviewed and negative (except as documented)
Physical Exam
-
General: Well Developed, Well Nourished and Pain
HEENT: Normocephalic
Respiratory: Clear to Auscultation and Non Labored Respirations; Negative Accessory Resp Muscle Use
Cardiac: Regular Rhythm and S1/S2
GI: Soft, Nontender, Nondistended and Normal Bowel Sounds
Musculoskeletal: No Edema and Other (Tenderness to palpation of lumbar spine- Now Improving)
Skin: Warm and Dry
Neuro: AO x 3 and Nonfocal/Grossly Intact
Psych: Calm
[2025-05-13 07:59] LABS: Hematocrit 31.5 % (39.0-52.0); Hemoglobin 10.3 g/dL (13.0-18.0); Mean Corp Hgb Conc. 32.7 g/dL (33.0-37.0); Mean Corpuscular Hgb 31.5 pg (27.0-31.0); Mean Corpuscular Volume 96.3 fL (80.0-94.0); Mean Platelet Volume 10.4 fL (7.4-10.4); Platelet Count 421 10^3/uL (130-400); Red Blood Cell Count 3.27 10^6/uL (4.70-6.10); Red Cell Dist. Width 15.2 % (11.5-14.5); White Blood Cell Count 17.9 10^3/uL (4.8-10.8)
[2025-05-13 08:03] LABS: Glucose - Point of Care 184 mg/dl (70-99)
[2025-05-13 08:30] LABS: INR 1.22; PT 15.9 Sec (11.4-14.6)
[2025-05-13] MEDS: DESENEX/MITRAZOL/ZEASORB 1 APPLIC TOPICAL ×2 (09:40→21:33)
[2025-05-13] MEDS: NOVOLOG FLEXPEN-LOW RESISTANCE 1 UNITS SC ×2 (09:41→13:09)
[2025-05-13] MEDS: LIDOCAINE 4% PATCH 1 PATCH TOPICAL (09:42)
[2025-05-13] MEDS: ZETIA 10 MG PO (09:42)
[2025-05-13] MEDS: RITALIN 30 MG PO (09:42)
[2025-05-13] MEDS: NORVASC 5 MG PO ×2 (09:43→21:32)
[2025-05-13] MEDS: PLAVIX 75 MG PO (09:43)
[2025-05-13] MEDS: ZOLOFT 100 MG PO ×2 (09:43→21:32)
[2025-05-13] MEDS: TOPROL XL 25 MG PO ×2 (09:43→21:32)
[2025-05-13] MEDS: AMPICILLIN 108 MG IV ×2 (09:45→21:33)
[2025-05-13 09:48] LABS: Blood Urea Nitrogen 38 mg/dl (9-20); Calcium 8.9 mg/dl (8.4-10.2); Carbon Dioxide 25 mmol/L (22-30); Chloride 98 mmol/L (98-107); Estimated Creatinine Clearance 15 ml/min; Glucose 166 mg/dl (70-99); Potassium 4.8 mmol/L (3.5-5.1); Sodium 138 mmol/L (135-145); eGFR 14.24
[2025-05-13] MEDS: FLEXERIL 10 MG PO ×2 (09:49→17:24)
[2025-05-13 11:02] VITALS: BP 157/70
--- NOTE | 2025-05-13 11:57 | W.PN.NEPH.PH ---
Today's Communication / Plan
-
HD tomorrow
for AVF gram tomorrow
Assessment/Plan
-
Impression:
AV fistula bleed
Leukocytosis/Enterococcus faecalis bacteremia obtained from blood cultures from dialysis earlier this week
ESRD MWF, [facility]
A-fib
DM2
CAD/CABG
Anemia
PAD
RUE AVF/ligated LUE AVG
Hyperphosphatemia
HTN
Diabetic neuropathy
Secondary hyperparathyroidism
Plan:
HD tomorrow via temporary catheter, will pull tomorrow after HD
for AVF gram today by vascular
severe intractable Back pain continues
BP improving
continue ampicilline for Efaecalis
likely need rehab
d/w pt
-
-
Date of Service: May 13, 2025
CC / HPI / ROS
-
Chief Complaint:
ESRD
History of Present Illness:
ESRD on Saturday schedule
tolerated HD yesterday
Hemodynamically stable
Remains on ampicillin for Enterococcus faecalis bacteremia
no fever, leucocytosis is improving to 16
Review of Systems:
Temp IJ cath
No chest pain or shortness of breath
Severe lower back pain
Labs
-
Labs:
WBC 17.9 10^3/uL (4.8-10.8) H 05/13/25 07:29
RBC 3.27 10^6/uL (4.70-6.10) L 05/13/25 07:29
Hgb 10.3 g/dL (13.0-18.0) L 05/13/25 07:29
Hct 31.5 % (39.0-52.0) L 05/13/25 07:29
Plt Count 421 10^3/uL (130-400) H 05/13/25 07:29
Sodium 138 mmol/L (135-145) 05/13/25 07:29
Potassium 4.8 mmol/L (3.5-5.1) 05/13/25 07:29
Chloride 98 mmol/L (98-107) 05/13/25 07:29
Carbon Dioxide 25 mmol/L (22-30) 05/13/25 07:29
BUN 38 mg/dl (9-20) H 05/13/25 07:29
Creatinine 4.3 mg/dL (0.7-1.3) H* 05/13/25 07:29
eGFR 14.24 05/13/25 07:29
Glucose 166 mg/dl (70-99) H 05/13/25 07:29
Calcium 8.9 mg/dl (8.4-10.2) 05/13/25 07:29
Albumin 4.2 g/dl (3.5-5.0) 05/02/25 23:09
Physical Exam
-
Vital Signs:
Vital Signs
Temp Pulse Resp BP Pulse Ox
98.1 F 69 16 157/70 97
05/13/25 11:02 05/13/25 11:02 05/13/25 11:02 05/13/25 11:02 05/13/25 11:02
Cardiovascular:: Regular rate and rhythm
Respiratory:: Bilateral: Coarse
Lung Excursion:: Normal
Abdomen:: Nontender and Soft
Bowel Sounds:: Normal
Extremity Edema:: None: Bilateral:
Luther Catheter: No
[2025-05-13 12:24] LABS: Glucose - Point of Care 159 mg/dl (70-99)
--- NOTE | 2025-05-13 13:02 | CM ---
Patient for procedure today. Physician and CM spoke with patient at bedside in [facility]. Patient has stated to CM that he really likes the food and the care here at . Patient made aware by physician yesterday that Plan is for transfer to next level
of care;SNF when medically appropriate. CM called to confirm with Liaison acceptance and CM will continue to follow for discharge planning needs.
Plan; transfer to SNF; [facility]; pending confirmation of HD acceptance.
[2025-05-13] MEDS: MEDROL 32 MG PO (13:08)
[2025-05-13] MEDS: MIRALAX 17 GRAMS PO (14:20)
[2025-05-13] MEDS: COLACE 100 MG PO ×2 (14:21→21:33)
[2025-05-13] MEDS: DULCOLAX 10 MG RECTAL (14:21)
[2025-05-13 15:00] VITALS: BP 141/88
--- NOTE | 2025-05-13 15:48 | W.PN.ID1 ---
Date of Service
Date of Service: May 13, 2025
Today's Communication
Continue antibiotics.
Assessment / Plan
Leukocytosis
Low back pain 2* L1-2 discitis / vertebral osteomyelitis
Bacteremia with E. faecalis
- cleared
Constipation / obstipation
Elevated ESR
Elevated CRP
pA-fib
CML
COPD
Hx CVA
HTN
HLD
DM type II
CAD; Hx ME
ESRD�HD
Obesity
Recommendations:
White count overall trending down.
Blood cultures (05/03/25) with E. faecalis. Repeat blood cultures (05/05, 05/07) without growth
MRI findings compatible with discitis and osteomyelitis at L1-2. Possible paraspinal inflammation also noted.
TTE nondiagnostic.
--> Continue ampicillin and ceftriaxone through 06/16/2025 (6 weeks from first negative blood culture)
Follow white count and temperature curve.
Follow weekly labs, including CBC with differential, ESR, CRP and LFTs.
Continue topical Desenex to the groin and perineal area.
����������������������������������������������������������
Chief Complaint
-: Bacteremia
Subjective / Review of Systems
Patient seen and examined. Reports ongoing back discomfort, but stable.
Review of Systems: No Fever and No Chills
Vital Signs / Physical Exam
Vital Signs
Vital Signs
Temp Pulse Resp BP Pulse Ox
99.0 F 83 17 141/88 100
05/13/25 15:00 05/13/25 15:00 05/13/25 15:00 05/13/25 15:00 05/13/25 15:00
Physical Exam
Constitutional: Chronically Ill, Non-toxic and Other (Mild discomfort secondary to back pain)
Eyes: No Conjunctival Hemorrhage and Sclera Anicteric
Cardiovascular: S1/S2; Negative S3/S4
Pulmonary: Non Labored
Gastrointestinal: Soft and Non Tender
Musculoskeletal: Spinal Tenderness
Neurological: Awake and Alert
Psychological: Calm
Lines: HD Cath (left IJ temp actheter in place)
Objective Data
Lab Data
Lab Results
05/13/25 07:29
05/13/25 07:29
ESR 92 mm/hour (0-20) H 05/06/25 05:39
PT 15.9 Sec (11.4-14.6) H 05/13/25 07:29
INR 1.22 05/13/25 07:29
APTT 41.0 Sec (23.4-35.0) H 05/13/25 07:29
Estimated Creat Clear 15 ml/min 05/13/25 07:29
Lactic Acid 0.7 mmol/L (0.7-2.0) 05/02/25 23:37
Total Bilirubin 0.6 mg/dl (0.2-1.3) 05/02/25 23:09
AST 21 U/L (17-59) 05/02/25 23:09
ALT < 10 U/L (0-50) 05/02/25 23:09
Alkaline Phosphatase 157 U/L (38-126) H 05/02/25 23:09
C-Reactive Protein 63.00 mg/L (0.0-10.00) H 05/06/25 05:39
Most recent labs reviewed.
Micro Results:
05/07/25 10:56 Blood Culture - Final
Blood/Venous No Growth - Final Report
05/07/25 09:57 Blood Culture - Final
Blood/Venous No Growth - Final Report
05/03/25 00:14 Blood Culture - Final
Blood/Venous Enterococcus faecalis
Gram Stain - Final
05/05/25 08:41 Blood Culture - Final
Blood/Venous No Growth - Final Report
05/05/25 07:28 Blood Culture - Final
Blood/Venous No Growth - Final Report
05/02/25 23:37 Blood Culture - Final
Blood/Venous No Growth - Final Report
05/03/25 11:43 Blood Culture - Final
Blood/Venous Enterococcus faecalis
Gram Stain - Final
05/03/25 11:02 Blood Culture - Final
Blood/Venous Enterococcus faecalis
Gram Stain - Final
05/03/25 06:19 MRSA Screen - Final
Nose No Methicillin Resistant Staphylococcus aureus isolated.
Imaging:
05/05/2025 ECHO (TTE): Technically difficult study. EF approximately 50%. No evidence of vegetation but consider LISA if clinically indicated. See full dictation for additional detail.
05/03/2025 CT abdomen/pelvis without contrast: Moderate colonic stool burden without evidence of obstruction. Prior L1-L5 posterior spinal fusion noted. There are endplate irregularities with mild surrounding paraspinal soft tissue
thickening/stranding at the L1-L2 intervertebral space which is concerning for discitis or osteomyelitis. A dedicated MRI with and without contrast may be considered as clinically indicated.
[2025-05-13 16:30] LABS: Glucose - Point of Care 221 mg/dl (70-99)
[2025-05-13] MEDS: NOVOLOG FLEXPEN-LOW RESISTANCE 2 UNITS SC (17:24)
--- NOTE | 2025-05-13 19:00 | PTCARENOTE ---
late entry: methylprednisolone given prior to knowing procedure was cancelled. Dr. Larios and Shoshana MERAZ aware.
[2025-05-13 21:23] LABS: Glucose - Point of Care 233 mg/dl (70-99)
[2025-05-13] MEDS: MELATONIN 5 MG PO (21:32)
[2025-05-13] MEDS: LIPITOR 80 MG PO (21:32)
[2025-05-13] MEDS: SENOKOT 17.2 MG PO (21:32)
[2025-05-13 23:00] VITALS: BP 144/64
[2025-05-14] MEDS: DILAUDID 2 MG PO ×5 (00:26→23:12)
[2025-05-14] MEDS: FLEXERIL 10 MG PO ×3 (00:26→21:48)
[2025-05-14 05:01] VITALS: BMI 28.7
[2025-05-14] MEDS: STERILE WATER FOR INJECTION 20 ML IV ×2 (06:17→17:02)
[2025-05-14] MEDS: ROCEPHIN 2000 MG IV ×2 (06:18→17:01)
[2025-05-14 07:44] LABS: Glucose - Point of Care 127 mg/dl (70-99)
[2025-05-14 07:46] VITALS: BP 120/72
--- NOTE | 2025-05-14 08:03 | W.PN.HOSP.TC ---
Today's Communication/Plan
-
;/
Assessment / Plan
Assessment / Plan
Assessment/plan
#Enterococcus faecalis bacteremia
#Vertebral osteomyelitis/discitis at L1-L2
-Presented as back pain, positive blood cultures at dialysis last week; CT and MRI consistent
-Blood cultures here returned positive for Enterococcus faecalis; ID following and started on IV ampicillin and ceftriaxone
-Second set of blood cultures remain negative, third set have remained NGTD
-Continue with current IV antibiotics and trend CBC and temperature curve
-Continue on Dilaudid PO Q6
-Bowel Regimen
-Will need 6 weeks total amount of antibiotics through 06/16/2025.
#Acute blood loss anemia
#Bleeding from RUE AVG
#Chronic anemia of kidney disease
-Presented with blood loss anemia due to venous stenosis of the RUE AVG in context of home Eliquis
-Received 1 unit of PRBC here; Plavix and DOAC initially held but has been resumed with stable Hgb
-Vascular surgery following, pending fistulogram as bacteremia cleared.
-Initially held Eliquis for procedure yesterday(eventually cancelled), but will restart today.
-Hold Eliquis on Wednesday 05/16 AM.
-Continue to trend CBC and monitor for bleeding
#Paroxysmal AF/AFL
-Has history of AF for which he takes metoprolol XL and Eliquis
-Earlier in hospital stay had runs of AFL and RVR, metoprolol XL now twice daily, currently NSR
-Will continue with regimen monitor on telemetry
-If recurrence of AFL may need to consider CTI ablation
#ESRD on HD
-Nephrology consulted, input appreciated
-non-tunneled catheter placed
-HD session M//
#NIDDM
-A1C 4.9 03/16/2025
-Home regimen includes Ozempic; also on high intensity statin for vascular disease
-GLP-1 held, continue with ISS and Accu-Cheks here for BG goal 140-180
#CAD s/p CABG + PCI
#PAD s/p LE bypass
#Dyslipidemia
-Home regimen includes high intensity statin, Plavix; also on DOAC for AF history
-Home meds also include beta-keny for CAD, co-Q10
-No signs or symptoms of acute coronary syndrome or acute occlusive PAD
-Remains on home medications
#COPD without flare
#FINESSE not on CPAP
#Tobacco use
-Home medications include albuterol MDI as needed
-No recent PFTs to review
-No signs of flare
-Stable respiratory status here
#Primary hypertension
#H/O hypotension
-Home antihypertensive regimen includes metoprolol succinate but no first-line agents, also on HD
-Home meds also include midodrine as needed for SBP <100
-BP has been more on hypertensive side here secondary to pain
-Has IV labetalol and hydralazine ordered as needed for spikes
-Continue to address pain as above
#H/O CVA
-Likely related to AF, no known history of cerebrovascular disease or ASD
-Home regimen includes Plavix, Eliquis, high intensity statin
-No obvious residual deficits, no new FND
#Right buttock ulcer
#DTI on R heel
-Continue Wound care
#H/O CML
-Not currently on TKI or other therapy
-WBC has been persistently elevated in range of 16-30 here
-Encourage OP follow-up with oncology
DVT prophylaxis: Eliquis
CODE STATUS: Full code
Anticipated Discharge: > 48 hours
Subjective/Interval History
-
Patient seen and examined at bedside on HD.
Objective Data
-
Labs:
Laboratory Results
05/14/25
07:30
WBC Pending
Hgb Pending
Hct Pending
Plt Count Pending
Sodium Pending
Potassium Pending
Chloride Pending
Carbon Dioxide Pending
BUN Pending
Creatinine Pending
Glucose Pending
Calcium Pending
Vital Signs:
Vital Signs
Temp Pulse Resp BP Pulse Ox
98.5 F 69 17 120/72 98
05/14/25 07:46 05/14/25 07:46 05/14/25 07:46 05/14/25 07:46 05/14/25 07:46
I&O
05/13/25 05/14/25 05/15/25
06:59 06:59 06:59
Intake Total 380 / 380 240 / 240 240 / 240
Output Total 550 / 550 200 / 200
Balance -170 / -170 240 / 240 40 / 40
Review of Systems
-
History Source: Patient
All other systems: Reviewed and negative
Physical Exam
-
General: Well Developed, Well Nourished and Pain
HEENT: Normocephalic
Respiratory: Clear to Auscultation and Non Labored Respirations; Negative Accessory Resp Muscle Use
Cardiac: Regular Rhythm and S1/S2
GI: Soft, Nontender, Nondistended and Normal Bowel Sounds
Musculoskeletal: No Edema and Other (mild Tenderness to palpation of lumbar spine)
Skin: Warm and Dry
Neuro: AO x 3 and Nonfocal/Grossly Intact
Psych: Calm
[2025-05-14 08:08] LABS: % Basophils 0.2 % (0-2); % Eosinophils 0.7 % (0-6); % Immature Granulocytes 0.8 % (0-0.5); % Lymphocytes 13.6 % (20.5-51.1); % Monocytes 11.7 % (1.7-9.3); Absolute Eosinophils 0.1 10^3/uL (0-0.7); Absolute Immature Granulocytes 0.2 10^3/uL (0-0.05); Absolute Lymphocytes 2.6 10^3/uL (1.2-3.4); Absolute Monocytes 2.2 10^3/uL (0.1-0.6); Absolute Neutrophils 13.8 10^3/uL (1.4-6.5); Hematocrit 26.4 % (39.0-52.0); Hemoglobin 8.5 g/dL (13.0-18.0); Mean Corp Hgb Conc. 32.2 g/dL (33.0-37.0); Mean Corpuscular Hgb 31.3 pg (27.0-31.0); Mean Corpuscular Volume 97.1 fL (80.0-94.0); Mean Platelet Volume 10.2 fL (7.4-10.4); Nucleated Red Blood Cells % 0 % (-); Platelet Count 398 10^3/uL (130-400); Red Blood Cell Count 2.72 10^6/uL (4.70-6.10); Red Cell Dist. Width 15.4 % (11.5-14.5)
[2025-05-14] MEDS: NOVOLOG FLEXPEN-LOW RESISTANCE SC (08:28)
[2025-05-14 08:35] LABS: Blood Urea Nitrogen 59 mg/dl (9-20); Calcium 8.5 mg/dl (8.4-10.2); Carbon Dioxide 26 mmol/L (22-30); Chloride 97 mmol/L (98-107); Estimated Creatinine Clearance 11 ml/min; Glucose 114 mg/dl (70-99); Magnesium 2.6 mg/dl (1.6-2.3); Potassium 4.2 mmol/L (3.5-5.1); Sodium 136 mmol/L (135-145); eGFR 9.55
[2025-05-14] MEDS: RETACRIT 6000 UNITS IV (09:01)
--- NOTE | 2025-05-14 09:48 | WOUNDNOTE ---
R FOOT (plantar lateral)
--- NOTE | 2025-05-14 10:04 | WOUNDNOTE ---
[facility] RN note: Visit to follow up on patient's R heel. R heel DTI remains about the same comparing previous photos, no drainage. Patient wearing his soft heel relief boots. Patient on hemodialysis currently. Nursing to assess sacral/buttocks. Heel
foam dressings changed. L heel blanchable red and intact. Patient reinstructed heel off loading and frequent turning. Patient is on a [facility] Max air bed and has an air chair cushion. t/c SPD and ordered a bariatric air chair cushion. Discussed
with CHAPIS Metzger who will apply bariatric air cushion to foot of patient's mattress under fitting sheet in case patient tries to dig in his heels. Patient aware not to dig his heels into the mattress. Patient has slide on type comfortable sneakers.
He stated he plans to ask his to bring in his off loading shoe inserts Dr. Ag had given him. TruVue lite boots reapplied. [place] texted Dr. Ag R heel pics including plantar aspect of heel DTI; asked if anything else suggested besides
the current local care and his current shoes/inserts. Await response. Pedal pulses heard via portable Doppler. He is followed by Dr. Atkinson. Patricia De Anda had notified vascular ARNOL Maravilla earlier this week re: patient's R heel DTI. Patient reports a
good appetite and good sugar control. Will follow as needed.
[2025-05-14] MEDS: MANNITOL 25% 12.5 GRAMS IV (10:36)
[2025-05-14] MEDS: LIDOCAINE 4% PATCH 1 PATCH TOPICAL (10:43)
[2025-05-14] MEDS: COLACE PO ×2 (10:43→19:53)
[2025-05-14] MEDS: DESENEX/MITRAZOL/ZEASORB 1 APPLIC TOPICAL ×2 (10:45→19:49)
[2025-05-14] MEDS: AMPICILLIN 108 MG IV ×2 (10:50→21:41)
[2025-05-14] MEDS: DULCOLAX RECTAL (10:51)
[2025-05-14] MEDS: MIRALAX PO (10:51)
--- NOTE | 2025-05-14 11:05 | WOUNDNOTE ---
Dr. Ag responded to tiger text stating current plan appropriate with a foam dressing and off loading and that a heel relief shoe may cause him to fall therefore is not advised at this time.
--- NOTE | 2025-05-14 11:26 | W.PN.NEPH.HD ---
Assessment
-
pt seen during HD
vitals stable
await vasc to obtain fistulogram
If AVG can be used, will remove temp HD catheter
abx per ID
pain is improving
dispo plan
Progress Note - Hemodialysis
-
Date of Service: May 14, 2025
Duration: 30 minutes and 3 hours
Potassium Bath: 2
Calcium Bath: 2.5
Opti-Dialyzer: 160
Ultrafiltration: Other (2kg)
Blood Flow: 400
Dialysate Flow: 600
Heparin: no
EPO: 6000
--- NOTE | 2025-05-14 11:30 | W.PN.ID1 ---
Date of Service
Date of Service: May 14, 2025
Today's Communication
Continue antibiotics. See below�
Assessment / Plan
Leukocytosis
Low back pain 2* L1-2 discitis / vertebral osteomyelitis
Bacteremia with E. faecalis
- cleared
Constipation / obstipation
Elevated ESR
Elevated CRP
pA-fib
CML
COPD
Hx CVA
HTN
HLD
DM type II
CAD; Hx MN
ESRD�HD
Obesity
Recommendations:
White count remains elevated, but appears stable. ?reactive
Blood cultures (05/03/25) with E. faecalis. Repeat blood cultures (05/05, 05/07) without growth.
MRI findings compatible with discitis and osteomyelitis at L1-2. Possible paraspinal inflammation also noted.
TTE nondiagnostic.
--> Continue ampicillin and ceftriaxone through 06/16/2025 (6 weeks from first negative blood culture)
Follow white count and temperature curve.
Follow weekly labs, including CBC with differential, ESR, CRP and LFTs.
Continue topical Desenex to the groin and perineal area.
����������������������������������������������������������
Chief Complaint
-: Bacteremia
Subjective / Review of Systems
Review of Systems: No Fever and No Chills
Vital Signs / Physical Exam
Vital Signs
Vital Signs
Temp Pulse Resp BP Pulse Ox
98.5 F 69 17 120/72 98
05/14/25 07:46 05/14/25 07:46 05/14/25 07:46 05/14/25 07:46 05/14/25 07:46
Physical Exam
Constitutional: Chronically Ill, Non-toxic and Other (Mild discomfort secondary to back pain)
Eyes: No Conjunctival Hemorrhage and Sclera Anicteric
Cardiovascular: S1/S2; Negative S3/S4
Pulmonary: Non Labored
Gastrointestinal: Soft and Non Tender
Musculoskeletal: Spinal Tenderness
Neurological: Awake and Alert
Psychological: Calm
Lines: HD Cath (left IJ temp catheter in place)
Objective Data
Lab Data
Lab Results
05/14/25 07:30
05/14/25 07:30
ESR 92 mm/hour (0-20) H 05/06/25 05:39
PT 15.9 Sec (11.4-14.6) H 05/13/25 07:29
INR 1.22 05/13/25 07:29
APTT 41.0 Sec (23.4-35.0) H 05/13/25 07:29
Estimated Creat Clear 11 ml/min 05/14/25 07:30
Lactic Acid 0.7 mmol/L (0.7-2.0) 05/02/25 23:37
Total Bilirubin 0.6 mg/dl (0.2-1.3) 05/02/25 23:09
AST 21 U/L (17-59) 05/02/25 23:09
ALT < 10 U/L (0-50) 05/02/25 23:09
Alkaline Phosphatase 157 U/L (38-126) H 05/02/25 23:09
C-Reactive Protein 63.00 mg/L (0.0-10.00) H 05/06/25 05:39
Most recent labs reviewed.
Micro Results:
05/07/25 10:56 Blood Culture - Final
Blood/Venous No Growth - Final Report
05/07/25 09:57 Blood Culture - Final
Blood/Venous No Growth - Final Report
05/03/25 00:14 Blood Culture - Final
Blood/Venous Enterococcus faecalis
Gram Stain - Final
05/05/25 08:41 Blood Culture - Final
Blood/Venous No Growth - Final Report
05/05/25 07:28 Blood Culture - Final
Blood/Venous No Growth - Final Report
05/02/25 23:37 Blood Culture - Final
Blood/Venous No Growth - Final Report
05/03/25 11:43 Blood Culture - Final
Blood/Venous Enterococcus faecalis
Gram Stain - Final
05/03/25 11:02 Blood Culture - Final
Blood/Venous Enterococcus faecalis
Gram Stain - Final
05/03/25 06:19 MRSA Screen - Final
Nose No Methicillin Resistant Staphylococcus aureus isolated.
Imaging:
05/05/2025 ECHO (TTE): Technically difficult study. EF approximately 50%. No evidence of vegetation but consider LISA if clinically indicated. See full dictation for additional detail.
05/03/2025 CT abdomen/pelvis without contrast: Moderate colonic stool burden without evidence of obstruction. Prior L1-L5 posterior spinal fusion noted. There are endplate irregularities with mild surrounding paraspinal soft tissue
thickening/stranding at the L1-L2 intervertebral space which is concerning for discitis or osteomyelitis. A dedicated MRI with and without contrast may be considered as clinically indicated.
Care Review
Plan reviewed with: Physician (Nephrology)
[2025-05-14] MEDS: HEPARIN 2500 UNITS INTRACATH (11:40)
[2025-05-14] MEDS: RITALIN 30 MG PO (11:43)
[2025-05-14] MEDS: NORVASC 5 MG PO ×2 (11:44→19:48)
[2025-05-14] MEDS: ZOLOFT 100 MG PO ×2 (11:44→19:48)
[2025-05-14] MEDS: ZETIA 10 MG PO (11:44)
[2025-05-14] MEDS: TOPROL XL 25 MG PO ×2 (11:44→19:22)
[2025-05-14] MEDS: NEPHROCAP 1 CAPSULE PO (11:44)
[2025-05-14] MEDS: PLAVIX 75 MG PO (11:45)
[2025-05-14] MEDS: NOVOLOG FLEXPEN-LOW RESISTANCE 1 UNITS SC (11:48)
[2025-05-14 11:49] LABS: Glucose - Point of Care 198 mg/dl (70-99)
[2025-05-14 14:29] VITALS: BP 184/77
[2025-05-14] MEDS: ELIQUIS 5 MG PO ×2 (14:31→19:48)
[2025-05-14 14:48] VITALS: BP 184/77
[2025-05-14 16:40] LABS: Glucose - Point of Care 213 mg/dl (70-99)
[2025-05-14] MEDS: NOVOLOG FLEXPEN-LOW RESISTANCE 2 UNITS SC (17:03)
[2025-05-14 21:06] LABS: Glucose - Point of Care 152 mg/dl (70-99)
[2025-05-14] MEDS: SENOKOT PO (21:41)
[2025-05-14] MEDS: LIPITOR 80 MG PO (21:42)
[2025-05-14] MEDS: MELATONIN 5 MG PO (21:42)
[2025-05-14 23:34] VITALS: BP 151/66
[2025-05-15 06:00] VITALS: BMI 28.7
[2025-05-15] MEDS: ROCEPHIN 2000 MG IV ×2 (06:03→17:34)
[2025-05-15] MEDS: DILAUDID 2 MG PO ×4 (06:03→23:40)
[2025-05-15] MEDS: STERILE WATER FOR INJECTION 20 ML IV ×2 (06:03→17:35)
[2025-05-15 07:17] LABS: Glucose - Point of Care 104 mg/dl (70-99)
[2025-05-15 07:36] VITALS: BP 116/82
[2025-05-15] MEDS: FLEXERIL 10 MG PO ×2 (08:04→20:23)
[2025-05-15] MEDS: NOVOLOG FLEXPEN-LOW RESISTANCE SC ×2 (08:05→11:50)
[2025-05-15] MEDS: DESENEX/MITRAZOL/ZEASORB 1 APPLIC TOPICAL ×2 (08:05→20:24)
[2025-05-15] MEDS: COLACE PO ×2 (08:05→20:24)
[2025-05-15] MEDS: LIDOCAINE 4% PATCH TOPICAL (08:06)
[2025-05-15] MEDS: DULCOLAX RECTAL (08:06)
[2025-05-15] MEDS: TOPROL XL 25 MG PO ×2 (08:08→20:23)
[2025-05-15] MEDS: ZOLOFT 100 MG PO ×2 (08:08→20:23)
[2025-05-15] MEDS: PLAVIX 75 MG PO (08:08)
[2025-05-15] MEDS: ELIQUIS 5 MG PO ×2 (08:08→20:23)
[2025-05-15] MEDS: ZETIA 10 MG PO (08:09)
[2025-05-15] MEDS: NORVASC 5 MG PO ×2 (08:09→20:23)
[2025-05-15] MEDS: RITALIN 30 MG PO (08:09)
[2025-05-15] MEDS: MIRALAX PO (08:09)
[2025-05-15 08:40] LABS: % Basophils 0.4 % (0-2); % Eosinophils 2.9 % (0-6); % Immature Granulocytes 0.7 % (0-0.5); Absolute Basophils 0.1 10^3/uL (0-0.2); Absolute Eosinophils 0.4 10^3/uL (0-0.7); Absolute Immature Granulocytes 0.1 10^3/uL (0-0.05); Absolute Lymphocytes 2.5 10^3/uL (1.2-3.4); Absolute Monocytes 1.6 10^3/uL (0.1-0.6); Hematocrit 29.6 % (39.0-52.0); Hemoglobin 9.8 g/dL (13.0-18.0); Mean Corp Hgb Conc. 33.1 g/dL (33.0-37.0); Mean Corpuscular Hgb 31.5 pg (27.0-31.0); Mean Corpuscular Volume 95.2 fL (80.0-94.0); Mean Platelet Volume 10.1 fL (7.4-10.4); Nucleated Red Blood Cells % 0 % (-); Platelet Count 368 10^3/uL (130-400); Red Blood Cell Count 3.11 10^6/uL (4.70-6.10); Red Cell Dist. Width 15.8 % (11.5-14.5); White Blood Cell Count 13.6 10^3/uL (4.8-10.8)
[2025-05-15 08:58] LABS: Blood Urea Nitrogen 35 mg/dl (9-20); Calcium 8.5 mg/dl (8.4-10.2); Carbon Dioxide 25 mmol/L (22-30); Chloride 99 mmol/L (98-107); Estimated Creatinine Clearance 17 ml/min; Glucose 87 mg/dl (70-99); Magnesium 2.3 mg/dl (1.6-2.3); Potassium 4.7 mmol/L (3.5-5.1); Sodium 136 mmol/L (135-145); eGFR 16.01
[2025-05-15] MEDS: AMPICILLIN 108 MG IV ×2 (10:12→21:30)
--- NOTE | 2025-05-15 10:18 | W.PN.HOSP.TC ---
Today's Communication/Plan
-
cont IV abx x 6 weeks--needs PICC if not already placed
limiting factor keeping pt is whether fistulogram needs to be done inpt vs outpt? await vascular decison
Assessment / Plan
Assessment / Plan
pt is a 69 year old male
Enterococcus faecalis bacteremia with Vertebral osteomyelitis/discitis at L1-L2--presented as back pain with positive blood cultures from dialysis--MRI/CT scans confirm--no need for neurosurgical intervention--pain not well controlled--last positive
blood culture 05/03/25--ID following and started on IV ampicillin and ceftriaxone--will need 6 weeks IV abx-- oral dilaudid Q6H with bowel regimen, would strongly consider dropping to Q8H, with improvement in pain, has spasms that are intermittent--on
lidocaine patch--cont Flexeril, s/p 1 dose steroid 05/09.
Acute blood loss anemia exacerbated by eliquis along with anemia of chronic disease--Bleeding from RUE AVG--Received 1 unit of PRBC here; Plavix and DOAC initially held but has been resumed with stable Hgb--Vascular surgery following, planning for
fistulogram--was postponed 05/13, vascular to reschedule but timeline unclear--? need to be done prior to d/c? or can be done as outpt?
Paroxysmal AFib/AFlutter--Has history of AF for which he takes metoprolol XL and Eliquis--Earlier in hospital stay had runs of AFL and RVR, metoprolol XL now twice daily, currently NSR
ESRD on HD-Nephrology consulted, input [id number] catheter placed-HD session M/W/
wounds--as per wound care: R buttock ulcer, suspect residual from old bruise now open, appears to be a skin tear. Same darker discolored skin on Coccyx. Today 05/10/25 discovered a blood blister/ DTI on R heel, suspect slowly evolving from past
falls.
NIDDM--A1C 4.9 03/16/2025--Home regimen includes Ozempic; also on high intensity statin for vascular disease--GLP-1 held, continue with ISS and Accu-Cheks here for BG goal 140-180
CAD s/p CABG + PCI/PAD s/p LE bypass/Dyslipidemia--Home regimen includes high intensity statin, Plavix; also on DOAC for AF history--Home meds also include beta-keny for CAD, co-Q10
COPD without flare/FINESSE not on CPAP
Tobacco use--needs to quit--Home medications include albuterol MDI as needed
Essential hypertension--H/O hypotension--Home antihypertensive regimen includes metoprolol succinate--also on HD--Home meds also include midodrine as needed for SBP <100--Has IV labetalol and hydralazine ordered as needed for spikes
H/O CVA--Likely related to AF, no known history of cerebrovascular disease or ASD--Home regimen includes Plavix, Eliquis, high intensity statin
H/O CML--Not currently on TKI or other therapy--WBC has been persistently elevated in range of 16-30 here--Encourage OP follow-up with oncology
DVT proph--Home Eliquis
CODE STATUS-- Full code
disposition--SNF
Anticipated Discharge: > 48 hours
Subjective/Interval History
-
Date of Service: May 15, 2025
pt c/o back spasms ongoing
Objective Data
-
Labs:
Laboratory Results
05/15/25
07:36
WBC 13.6 H
Hgb 9.8 L
Hct 29.6 L
Plt Count 368
Sodium 136
Potassium 4.7
Chloride 99
Carbon Dioxide 25
BUN 35 H
Creatinine 3.9 H
Glucose 87
Calcium 8.5
Vital Signs:
max temp for 24 hours
05/14/25
14:29
Temp 99.9 F
Vital Signs
Temp Pulse Resp BP Pulse Ox
98 F 68 22 116/82 98
05/15/25 07:36 05/15/25 07:36 05/15/25 07:36 05/15/25 07:36 05/15/25 07:36
I&O
05/14/25 05/15/25 05/16/25
06:59 06:59 06:59
Intake Total 240 / 240 1080 / 1080
Output Total 400 / 400
Balance 240 / 240 680 / 680
Review of Systems
-
All other systems: Reviewed and negative
Musculoskeletal: Reports Other (back spasms)
Physical Exam
-
General: Well Developed, Well Nourished and No Apparent Distress
HEENT: Normocephalic and Atraumatic
Respiratory: Clear to Auscultation; Negative Wheezes
Cardiac: Regular Rhythm and S1/S2
GI: Soft, Nontender, Nondistended and Normal Bowel Sounds
Musculoskeletal: No Clubbing, No Cyanosis and No Edema
Skin: Warm
Neuro: Awake
[2025-05-15 11:34] LABS: Glucose - Point of Care 148 mg/dl (70-99)
--- NOTE | 2025-05-15 11:38 | CM ---
Patient seen at bedside on . Patient continues to await Fistulogram per physician. Pending medical treatment plan patient to go to [facility] pending bed availability and confirmation of HD acceptance. CM called to confirm with Liaison
acceptance and pending HD acceptance, all clinical information faxed 05/13/25. CM will continue to follow for discharge planning needs.
Plan; transfer to SNF; [facility] has accepted; pending confirmation of HD acceptance.
--- NOTE | 2025-05-15 12:13 | W.PN.NEPH.PH ---
Today's Communication / Plan
-
HD Saturday
await vasc intervention
Assessment/Plan
-
Impression:
AV fistula bleed
Leukocytosis/Enterococcus faecalis bacteremia obtained from blood cultures from dialysis earlier this week
ESRD MWF, [facility]
A-fib
DM2
CAD/CABG
Anemia
PAD
RUE AVF/ligated LUE AVG
Hyperphosphatemia
HTN
Diabetic neuropathy
Secondary hyperparathyroidism
Plan:
HD Saturday via temporary catheter
await vasc input regarding AVF gram timing
if no plan of intervention change to tunneled catheter
Bp stable
abx per ID, will need eventual PICC
d/c plan
d/w pt and primary
-
-
Date of Service: May 15, 2025
CC / HPI / ROS
-
Chief Complaint:
ESRD
History of Present Illness:
ESRD on Saturday schedule
tolerated HD yesterday
Hemodynamically stable
Remains on ampicillin for Enterococcus faecalis bacteremia
no fever, leucocytosis is improving to 13
Review of Systems:
Temp IJ cath
No chest pain or shortness of breath
Severe lower back pain-improving slowly
Labs
-
Labs:
WBC 13.6 10^3/uL (4.8-10.8) H 05/15/25 07:36
RBC 3.11 10^6/uL (4.70-6.10) L 05/15/25 07:36
Hgb 9.8 g/dL (13.0-18.0) L 05/15/25 07:36
Hct 29.6 % (39.0-52.0) L 05/15/25 07:36
Plt Count 368 10^3/uL (130-400) 05/15/25 07:36
Sodium 136 mmol/L (135-145) 05/15/25 07:36
Potassium 4.7 mmol/L (3.5-5.1) 05/15/25 07:36
Chloride 99 mmol/L (98-107) 05/15/25 07:36
Carbon Dioxide 25 mmol/L (22-30) 05/15/25 07:36
BUN 35 mg/dl (9-20) H 05/15/25 07:36
Creatinine 3.9 mg/dL (0.7-1.3) H 05/15/25 07:36
eGFR 16.01 05/15/25 07:36
Glucose 87 mg/dl (70-99) 05/15/25 07:36
Calcium 8.5 mg/dl (8.4-10.2) 05/15/25 07:36
Albumin 4.2 g/dl (3.5-5.0) 05/02/25 23:09
Physical Exam
-
Vital Signs:
Vital Signs
Temp Pulse Resp BP Pulse Ox
98 F 68 22 116/82 98
05/15/25 07:36 05/15/25 07:36 05/15/25 07:36 05/15/25 07:36 05/15/25 07:36
Cardiovascular:: Regular rate and rhythm
Respiratory:: Bilateral: CTA
Lung Excursion:: Normal
Abdomen:: Nontender and Soft
Bowel Sounds:: Normal
Extremity Edema:: None: Bilateral:
Luther Catheter: No
Other Findings::
AVF +thrill
[2025-05-15 16:11] VITALS: BP 160/67
[2025-05-15 17:30] LABS: Glucose - Point of Care 153 mg/dl (70-99)
[2025-05-15] MEDS: NOVOLOG FLEXPEN-LOW RESISTANCE 1 UNITS SC (17:49)
[2025-05-15] MEDS: MELATONIN 5 MG PO (21:30)
[2025-05-15] MEDS: SENOKOT PO (21:30)
[2025-05-15] MEDS: LIPITOR 80 MG PO (21:30)
[2025-05-15 22:03] LABS: Glucose - Point of Care 146 mg/dl (70-99)
[2025-05-15 23:42] VITALS: BP 122/79
[2025-05-16] MEDS: TYLENOL 650 MG PO (02:36)
[2025-05-16] MEDS: DILAUDID 2 MG PO ×3 (05:52→22:46)
[2025-05-16] MEDS: ROCEPHIN 2000 MG IV ×2 (05:52→17:32)
[2025-05-16] MEDS: STERILE WATER FOR INJECTION 20 ML IV ×2 (05:52→17:32)
[2025-05-16] MEDS: FLEXERIL 10 MG PO ×3 (05:58→14:45)
[2025-05-16 06:00] VITALS: BMI 28.7
[2025-05-16 06:59] LABS: Hematocrit 29.8 % (39.0-52.0); Hemoglobin 9.8 g/dL (13.0-18.0); Mean Corp Hgb Conc. 32.9 g/dL (33.0-37.0); Mean Corpuscular Hgb 31.1 pg (27.0-31.0); Mean Corpuscular Volume 94.6 fL (80.0-94.0); Mean Platelet Volume 9.9 fL (7.4-10.4); Platelet Count 396 10^3/uL (130-400); Red Blood Cell Count 3.15 10^6/uL (4.70-6.10); Red Cell Dist. Width 15.7 % (11.5-14.5); White Blood Cell Count 15.8 10^3/uL (4.8-10.8)
[2025-05-16 07:35] LABS: Glucose - Point of Care 110 mg/dl (70-99)
[2025-05-16 07:37] LABS: Blood Urea Nitrogen 53 mg/dl (9-20); Calcium 8.5 mg/dl (8.4-10.2); Carbon Dioxide 23 mmol/L (22-30); Chloride 102 mmol/L (98-107); Estimated Creatinine Clearance 13 ml/min; Glucose 102 mg/dl (70-99); Magnesium 2.2 mg/dl (1.6-2.3); Potassium 4.9 mmol/L (3.5-5.1); Sodium 137 mmol/L (135-145); eGFR 11.34
[2025-05-16 07:51] VITALS: BP 155/63
[2025-05-16] MEDS: PLAVIX 75 MG PO (08:53)
[2025-05-16] MEDS: ZETIA 10 MG PO (08:53)
[2025-05-16] MEDS: NORVASC 5 MG PO ×2 (08:53→20:59)
[2025-05-16] MEDS: ELIQUIS 5 MG PO ×2 (08:53→21:00)
[2025-05-16] MEDS: TOPROL XL 25 MG PO ×2 (08:53→21:00)
[2025-05-16] MEDS: ZOLOFT 100 MG PO ×2 (08:53→21:03)
[2025-05-16] MEDS: DESENEX/MITRAZOL/ZEASORB TOPICAL (08:54)
[2025-05-16] MEDS: COLACE PO (08:54)
[2025-05-16] MEDS: DULCOLAX RECTAL (08:54)
[2025-05-16] MEDS: RITALIN 30 MG PO (08:54)
[2025-05-16] MEDS: LIDOCAINE 4% PATCH TOPICAL (08:58)
[2025-05-16] MEDS: MIRALAX PO (08:58)
[2025-05-16] MEDS: AMPICILLIN 108 MG IV ×2 (09:00→22:40)
[2025-05-16] MEDS: NOVOLOG FLEXPEN-LOW RESISTANCE SC ×3 (09:22→17:29)
--- NOTE | 2025-05-16 09:31 | W.PN.HOSP.TC ---
Today's Communication/Plan
-
vascular to decide fistulogram, which then decides HD access, which then dictates PICC placement
Assessment / Plan
Assessment / Plan
pt is a 69 year old male
Enterococcus faecalis bacteremia with Vertebral osteomyelitis/discitis at L1-L2--presented as back pain with positive blood cultures from dialysis--MRI/CT scans confirm--no need for neurosurgical intervention--pain not well controlled--last positive
blood culture 05/03/25--ID following and started on IV ampicillin and ceftriaxone--will need 6 weeks IV abx-- oral dilaudid Q6H with bowel regimen, dropping to Q8H, has spasms that are intermittent--on lidocaine patch--cont Flexeril, s/p 1 dose
steroid 05/09.
Acute blood loss anemia exacerbated by eliquis along with anemia of chronic disease--Bleeding from RUE AVG--Received 1 unit of PRBC here; Plavix and DOAC initially held but has been resumed with stable Hgb--Vascular surgery following, planning for
fistulogram--was postponed 05/13, vascular to reschedule but timeline unclear--needs to be addressed prior to d/c
Paroxysmal AFib/AFlutter--Has history of AF for which he takes metoprolol XL and Eliquis--Earlier in hospital stay had runs of AFL and RVR, metoprolol XL now twice daily, currently NSR
ESRD on HD--Nephrology consulted, input appreciated--non-tunneled catheter placed (either needs tunneled cath OR use fistula prior to PICC placement)--HD session M/W/F
wounds--as per wound care: R buttock ulcer, suspect residual from old bruise now open, appears to be a skin tear. Same darker discolored skin on Coccyx. Today 05/10/25 discovered a blood blister/ DTI on R heel, suspect slowly evolving from past
falls.
NIDDM--A1C 4.9 03/16/2025--Home regimen includes Ozempic; also on high intensity statin for vascular disease--GLP-1 held, continue with ISS and Accu-Cheks here for BG goal 140-180
CAD s/p CABG + PCI/PAD s/p LE bypass/Dyslipidemia--Home regimen includes high intensity statin, Plavix; also on DOAC for AF history--Home meds also include beta-keny for CAD, co-Q10
COPD without flare/FINESSE not on CPAP
Tobacco use--needs to quit--Home medications include albuterol MDI as needed
Essential hypertension--H/O hypotension--Home antihypertensive regimen includes metoprolol succinate--also on HD--Home meds also include midodrine as needed for SBP <100--Has IV labetalol and hydralazine ordered as needed for spikes
H/O CVA--Likely related to AF, no known history of cerebrovascular disease or ASD--Home regimen includes Plavix, Eliquis, high intensity statin
H/O CML--Not currently on TKI or other therapy--WBC has been persistently elevated in range of 16-30 here--Encourage OP follow-up with oncology
DVT proph--Home Eliquis
CODE STATUS-- Full code
disposition--SNF
Anticipated Discharge: > 48 hours
Subjective/Interval History
-
Date of Service: May 16, 2025
pt without c/o
Objective Data
-
Labs:
Laboratory Results
05/16/25
06:38
WBC 15.8 H
Hgb 9.8 L
Hct 29.8 L
Plt Count 396
Sodium 137
Potassium 4.9
Chloride 102
Carbon Dioxide 23
BUN 53 H
Creatinine 5.2 H*
Glucose 102 H
Calcium 8.5
Vital Signs:
max temp for 24 hours
05/14/25
14:29
Temp 99.9 F
Vital Signs
Temp Pulse Resp BP Pulse Ox
97.6 F 69 22 155/63 98
05/16/25 07:51 05/16/25 07:51 05/16/25 07:51 05/16/25 07:51 05/16/25 07:51
I&O
05/15/25 05/16/25 05/17/25
06:59 06:59 06:59
Intake Total 1080 / 1080 870 / 870
Output Total 400 / 400 350 / 350
Balance 680 / 680 870 / 870 -350 / -350
Review of Systems
-
All other systems: Reviewed and negative
Physical Exam
-
General: Well Developed, Well Nourished and No Apparent Distress
HEENT: Normocephalic and Atraumatic
Respiratory: Clear to Auscultation; Negative Wheezes or Rhonchi
Cardiac: Regular Rhythm and S1/S2; Negative Murmur
GI: Soft, Nontender, Nondistended and Normal Bowel Sounds
Musculoskeletal: No Clubbing, No Cyanosis and No Edema
Neuro: Awake
--- NOTE | 2025-05-16 10:07 | W.PN.UPDATE ---
Update Note
Progress Note Update
I had discussed with hospitalist yesterday that if patient has existing tunneled dialysis catheter and/or fistula can be accessed for hemodialysis, then no need for inpatient fistulogram. However if fistula cannot be accessed and patient does not
have a tunneled catheter currently, may benefit from fistulogram versus tunneled catheter placement. However, based on scheduling, unable to perform fistulogram tomorrow, possibly on Friday 05/18, but need to clarify schedule.
[2025-05-16 11:22] LABS: Glucose - Point of Care 114 mg/dl (70-99)
--- NOTE | 2025-05-16 14:27 | W.PN.NEPH.PH ---
Today's Communication / Plan
-
HD tomorrow
Assessment/Plan
-
Impression:
AV fistula bleed
Leukocytosis/Enterococcus faecalis bacteremia obtained from blood cultures from dialysis earlier this week
ESRD MWF, [facility]
A-fib
DM2
CAD/CABG
Anemia
PAD
RUE AVF/ligated LUE AVG
Hyperphosphatemia
HTN
Diabetic neuropathy
Secondary hyperparathyroidism
Plan:
HD Saturday via temporary catheter
await vasc input regarding AVF gram timing , keep ALMA wrap as once area seem of concerning shiny skin
if no plan of intervention change to tunneled catheter
Bp stable
abx per ID, will need eventual PICC
d/c plan
d/w pt and vascular
d/w nursing
-
-
Date of Service: May 16, 2025
CC / HPI / ROS
-
Chief Complaint:
ESRD
History of Present Illness:
ESRD on Saturday schedule
Hemodynamically stable
Remains on ampicillin for Enterococcus faecalis bacteremia
no fever, leucocytosis up at 15k
Review of Systems:
Temp IJ cath
No chest pain or shortness of breath
Severe lower back pain-improving slowly
Labs
-
Labs:
WBC 15.8 10^3/uL (4.8-10.8) H 05/16/25 06:38
RBC 3.15 10^6/uL (4.70-6.10) L 05/16/25 06:38
Hgb 9.8 g/dL (13.0-18.0) L 05/16/25 06:38
Hct 29.8 % (39.0-52.0) L 05/16/25 06:38
Plt Count 396 10^3/uL (130-400) 05/16/25 06:38
Sodium 137 mmol/L (135-145) 05/16/25 06:38
Potassium 4.9 mmol/L (3.5-5.1) 05/16/25 06:38
Chloride 102 mmol/L (98-107) 05/16/25 06:38
Carbon Dioxide 23 mmol/L (22-30) 05/16/25 06:38
BUN 53 mg/dl (9-20) H 05/16/25 06:38
Creatinine 5.2 mg/dL (0.7-1.3) H* 05/16/25 06:38
eGFR 11.34 05/16/25 06:38
Glucose 102 mg/dl (70-99) H 05/16/25 06:38
Calcium 8.5 mg/dl (8.4-10.2) 05/16/25 06:38
Albumin 4.2 g/dl (3.5-5.0) 05/02/25 23:09
Physical Exam
-
Vital Signs:
Vital Signs
Temp Pulse Resp BP Pulse Ox
97.6 F 69 22 155/63 98
05/16/25 07:51 05/16/25 07:51 05/16/25 07:51 05/16/25 07:51 05/16/25 07:51
Cardiovascular:: Regular rate and rhythm
Respiratory:: Bilateral: CTA
Lung Excursion:: Normal
Abdomen:: Nontender and Soft
Bowel Sounds:: Normal
Extremity Edema:: None: Bilateral:
Luther Catheter: No
Other Findings::
AVF +thrill
anastomotic area small aneursym
[2025-05-16 15:40] VITALS: BP 166/65
[2025-05-16 17:12] LABS: Glucose - Point of Care 137 mg/dl (70-99)
[2025-05-16 19:00] VITALS: BP 174/71
[2025-05-16] MEDS: FLEXERIL 5 MG PO (20:57)
[2025-05-16] MEDS: COLACE 100 MG PO (20:59)
[2025-05-16] MEDS: DESENEX/MITRAZOL/ZEASORB 1 APPLIC TOPICAL (21:01)
[2025-05-16 21:54] LABS: Glucose - Point of Care 129 mg/dl (70-99)
[2025-05-16] MEDS: SENOKOT 17.2 MG PO (22:39)
[2025-05-16] MEDS: MELATONIN 5 MG PO (22:40)
[2025-05-16] MEDS: LIPITOR 80 MG PO (22:40)
[2025-05-16 23:24] VITALS: BP 125/82
[2025-05-17] MEDS: DILAUDID 2 MG PO ×3 (05:37→23:24)
[2025-05-17] MEDS: STERILE WATER FOR INJECTION 20 ML IV ×2 (05:37→16:52)
[2025-05-17] MEDS: ROCEPHIN 2000 MG IV ×2 (05:38→16:52)
[2025-05-17 06:00] VITALS: BMI 28.7
[2025-05-17 06:11] LABS: Glucose - Point of Care 91 mg/dl (70-99)
[2025-05-17 07:15] VITALS: BP 168/52
--- NOTE | 2025-05-17 07:27 | W.PN.HOSP.TC ---
Today's Communication/Plan
-
;/
Assessment / Plan
Assessment / Plan
Assessment/plan
#Enterococcus faecalis bacteremia
#Vertebral osteomyelitis/discitis at L1-L2
-Presented as back pain, positive blood cultures at dialysis last week; CT and MRI consistent
-Blood cultures here returned positive for Enterococcus faecalis; ID following and started on IV ampicillin and ceftriaxone
-Second set of blood cultures remain negative, third set have remained NGTD
-Continue with current IV antibiotics and trend CBC and temperature curve
-Continue on Dilaudid PO, Now Q8
-Bowel Regimen
-Will need 6 weeks total amount of antibiotics through 06/16/2025.
-Will need PICC placement
#Acute blood loss anemia
#Bleeding from RUE AVG
#Chronic anemia of kidney disease
-Presented with blood loss anemia due to venous stenosis of the RUE AVG in context of home Eliquis
-Received 1 unit of PRBC here; Plavix and DOAC initially held but has been resumed with stable Hgb
-Vascular surgery following, pending fistulogram as bacteremia cleared.
-Was postponed 05/13, vascular to reschedule but timeline unclear, Awaiting Vascular to decide fistulogram date
-Continue to trend CBC and monitor for bleeding
#Paroxysmal AF/AFL
-Has history of AF for which he takes metoprolol XL and Eliquis
-Earlier in hospital stay had runs of AFL and RVR, metoprolol XL now twice daily, currently NSR
-Will continue with regimen monitor on telemetry
-If recurrence of AFL may need to consider CTI ablation
#ESRD on HD
-Nephrology consulted, input appreciated
-non-tunneled catheter placed
-HD session M/W/
#NIDDM
-A1C 4.9 03/16/2025
-Home regimen includes Ozempic; also on high intensity statin for vascular disease
-GLP-1 held, continue with ISS and Accu-Cheks here for BG goal 140-180
#CAD s/p CABG + PCI
#PAD s/p LE bypass
#Dyslipidemia
-Home regimen includes high intensity statin, Plavix; also on DOAC for AF history
-Home meds also include beta-keny for CAD, co-Q10
-No signs or symptoms of acute coronary syndrome or acute occlusive PAD
-Remains on home medications
#COPD without flare
#FINESSE not on CPAP
#Tobacco use
-Home medications include albuterol MDI as needed
-No recent PFTs to review
-No signs of flare
-Stable respiratory status here
#Primary hypertension
#H/O hypotension
-Home antihypertensive regimen includes metoprolol succinate but no first-line agents, also on HD
-Home meds also include midodrine as needed for SBP <100
-BP has been more on hypertensive side here secondary to pain
-Has IV labetalol and hydralazine ordered as needed for spikes
-Continue to address pain as above
#H/O CVA
-Likely related to AF, no known history of cerebrovascular disease or ASD
-Home regimen includes Plavix, Eliquis, high intensity statin
-No obvious residual deficits, no new FND
#Right buttock ulcer
#DTI on R heel
-Continue Wound care
#H/O CML
-Not currently on TKI or other therapy
-WBC has been persistently elevated in range of 16-30 here
-Encourage OP follow-up with oncology
DVT prophylaxis: Eliquis
CODE STATUS: Full code
Anticipated Discharge: > 48 hours
Subjective/Interval History
-
Patient seen and Examined on HD. Denies acute distress.
Objective Data
-
Labs:
Laboratory Results
05/17/25
07:18
WBC Pending
Hgb Pending
Hct Pending
Plt Count Pending
Sodium Pending
Potassium Pending
Chloride Pending
Carbon Dioxide Pending
BUN Pending
Creatinine Pending
Glucose Pending
Calcium Pending
Vital Signs:
Vital Signs
Temp Pulse Resp BP Pulse Ox
98.7 F 74 16 125/82 100
05/16/25 23:24 05/16/25 23:24 05/16/25 23:24 05/16/25 23:24 05/16/25 23:24
I&O
05/16/25 05/17/25 05/18/25
06:59 06:59 06:59
Intake Total 870 / 870 1200 / 1200
Output Total 600 / 600
Balance 870 / 870 600 / 600
Review of Systems
-
All other systems: Reviewed and negative (EXCEPT DOCUMENTED)
Physical Exam
-
General: Well Developed, Well Nourished and No Apparent Distress
HEENT: Normocephalic and Atraumatic
Respiratory: Clear to Auscultation; Negative Wheezes or Rhonchi
Cardiac: Regular Rhythm and S1/S2
GI: Soft, Nontender, Nondistended and Normal Bowel Sounds
Musculoskeletal: No Clubbing, No Cyanosis and No Edema
Neuro: Awake
[2025-05-17] MEDS: NORVASC PO (07:57)
[2025-05-17 08:04] LABS: Hematocrit 27.3 % (39.0-52.0); Mean Corpuscular Hgb 31.5 pg (27.0-31.0); Mean Corpuscular Volume 95.5 fL (80.0-94.0); Mean Platelet Volume 10.2 fL (7.4-10.4); Platelet Count 404 10^3/uL (130-400); Red Blood Cell Count 2.86 10^6/uL (4.70-6.10); Red Cell Dist. Width 15.7 % (11.5-14.5)
[2025-05-17 08:32] LABS: Blood Urea Nitrogen 59 mg/dl (9-20); Calcium 8.5 mg/dl (8.4-10.2); Carbon Dioxide 22 mmol/L (22-30); Chloride 101 mmol/L (98-107); Estimated Creatinine Clearance 10 ml/min; Potassium 4.6 mmol/L (3.5-5.1); Sodium 137 mmol/L (135-145); eGFR 8.07
[2025-05-17] MEDS: NOVOLOG FLEXPEN-LOW RESISTANCE SC ×3 (08:37→17:18)
[2025-05-17] MEDS: LIDOCAINE 4% PATCH 1 PATCH TOPICAL (08:45)
[2025-05-17] MEDS: ELIQUIS 5 MG PO ×2 (08:46→20:32)
[2025-05-17] MEDS: FLEXERIL 10 MG PO ×3 (08:46→23:24)
[2025-05-17] MEDS: PLAVIX 75 MG PO (08:46)
[2025-05-17] MEDS: ZETIA 10 MG PO (08:46)
[2025-05-17] MEDS: TOPROL XL 25 MG PO ×2 (08:46→20:24)
[2025-05-17] MEDS: DESENEX/MITRAZOL/ZEASORB 1 APPLIC TOPICAL ×2 (08:47→20:33)
[2025-05-17] MEDS: NEPHROCAP 1 CAPSULE PO (08:51)
[2025-05-17] MEDS: ZOLOFT 100 MG PO ×2 (08:51→20:24)
[2025-05-17 09:21] LABS: Glucose 86 mg/dl (70-99); Magnesium 2.2 mg/dl (1.6-2.3)
[2025-05-17] MEDS: RETACRIT 4000 UNITS IV (09:31)
--- NOTE | 2025-05-17 09:52 | VATNOTE ---
During routine assessment, pt receiving hemodialysis. HD nurse states they will change the L IJ nontunneled HDC dressing during dialysis treatment.
--- NOTE | 2025-05-17 11:27 | W.PN.ID1 ---
Date of Service
Date of Service: May 17, 2025
Today's Communication
Continue IV ampicillin and ceftriaxone.
Picc placment when close to discharge.
Assessment / Plan
Leukocytosis
Low back pain 2* L1-2 discitis / vertebral osteomyelitis
Bacteremia with E. faecalis
- cleared
Constipation / obstipation
Elevated ESR
Elevated CRP
pA-fib
CML
COPD
Hx CVA
HTN
HLD
DM type II
CAD; Hx MD
ESRD�HD
Obesity
Recommendations:
White count remains elevated, but appears stable. ?reactive
Blood cultures (05/03/25) with E. faecalis. Repeat blood cultures (05/05, 05/07) without growth.
MRI findings compatible with discitis and osteomyelitis at L1-2. Possible paraspinal inflammation also noted.
TTE nondiagnostic.
--> Continue ampicillin and ceftriaxone through 06/16/2025 (6 weeks from first negative blood culture)
Follow white count and temperature curve.
Follow weekly labs, including CBC with differential, ESR, CRP and LFTs.
Will need PICC when close to discharge.
Continue topical Desenex to the groin and perineal area.
����������������������������������������������������������
Chief Complaint
-: Bacteremia
Subjective / Review of Systems
Tolerating abx's.
Vital Signs / Physical Exam
Vital Signs
Vital Signs
Temp Pulse Resp BP Pulse Ox
99.6 F 67 18 168/52 98
05/17/25 07:15 05/17/25 07:15 05/17/25 07:15 05/17/25 07:15 05/17/25 10:46
Physical Exam
Constitutional: No Acute Distress and Comfortable
Cardiovascular: Regular Rate and S1/S2
Pulmonary: Clear
Gastrointestinal: Soft, Non Tender and Non Distended
Extremities: Negative Edema
Neurological: AO x 3
Objective Data
Lab Data
Lab Results
05/17/25 07:18
05/17/25 07:18
ESR 92 mm/hour (0-20) H 05/06/25 05:39
PT 15.9 Sec (11.4-14.6) H 05/13/25 07:29
INR 1.22 05/13/25 07:29
APTT 41.0 Sec (23.4-35.0) H 05/13/25 07:29
Estimated Creat Clear 10 ml/min 05/17/25 07:18
Lactic Acid 0.7 mmol/L (0.7-2.0) 05/02/25 23:37
Total Bilirubin 0.6 mg/dl (0.2-1.3) 05/02/25 23:09
AST 21 U/L (17-59) 05/02/25 23:09
ALT < 10 U/L (0-50) 05/02/25 23:09
Alkaline Phosphatase 157 U/L (38-126) H 05/02/25 23:09
C-Reactive Protein 63.00 mg/L (0.0-10.00) H 05/06/25 05:39
Most recent labs reviewed.
Micro Results:
05/07/25 10:56 Blood Culture - Final
Blood/Venous No Growth - Final Report
05/07/25 09:57 Blood Culture - Final
Blood/Venous No Growth - Final Report
05/03/25 00:14 Blood Culture - Final
Blood/Venous Enterococcus faecalis
Gram Stain - Final
05/05/25 08:41 Blood Culture - Final
Blood/Venous No Growth - Final Report
05/05/25 07:28 Blood Culture - Final
Blood/Venous No Growth - Final Report
05/02/25 23:37 Blood Culture - Final
Blood/Venous No Growth - Final Report
05/03/25 11:43 Blood Culture - Final
Blood/Venous Enterococcus faecalis
Gram Stain - Final
05/03/25 11:02 Blood Culture - Final
Blood/Venous Enterococcus faecalis
Gram Stain - Final
05/03/25 06:19 MRSA Screen - Final
Nose No Methicillin Resistant Staphylococcus aureus isolated.
Imaging:
05/05/2025 ECHO (TTE): Technically difficult study. EF approximately 50%. No evidence of vegetation but consider LISA if clinically indicated. See full dictation for additional detail.
05/03/2025 CT abdomen/pelvis without contrast: Moderate colonic stool burden without evidence of obstruction. Prior L1-L5 posterior spinal fusion noted. There are endplate irregularities with mild surrounding paraspinal soft tissue
thickening/stranding at the L1-L2 intervertebral space which is concerning for discitis or osteomyelitis. A dedicated MRI with and without contrast may be considered as clinically indicated.
[2025-05-17 11:36] LABS: Glucose - Point of Care 61 mg/dl (70-99)
[2025-05-17 11:36] LABS: Glucose - Point of Care 99 mg/dl (70-99)
[2025-05-17] MEDS: DULCOLAX 10 MG RECTAL (12:28)
[2025-05-17] MEDS: MIRALAX 17 GRAMS PO (12:28)
[2025-05-17] MEDS: COLACE 100 MG PO (12:28)
[2025-05-17] MEDS: AMPICILLIN 108 MG IV ×2 (12:29→23:24)
--- NOTE | 2025-05-17 12:48 | W.PN.NEPH.HD ---
Progress Note - Hemodialysis
-
Date of Service: May 17, 2025
Duration: 30 minutes and 3 hours
Potassium Bath: 2
Calcium Bath: 2.5
Opti-Dialyzer: 160
Ultrafiltration: Other (2kg)
Blood Flow: 400
Dialysate Flow: 600
Heparin: no
EPO: 6000
--- NOTE | 2025-05-17 13:30 | WOUNDNOTE ---
[facility] [place] NOTE: Followed up today via nurse Josh, patient getting dialysis. No change in R heel DTI or R buttock ulcer. Patient is using his offloading heel boots and is on an air surface. Will follow tomorrow if able, time permitting.
[2025-05-17 15:30] VITALS: BP 166/80
[2025-05-17 15:55] VITALS: BP 170/72; BP 204/95; PULSE 77; O2SAT 98
[2025-05-17 16:49] LABS: Glucose - Point of Care 140 mg/dl (70-99)
[2025-05-17] MEDS: NORVASC 5 MG PO (20:32)
[2025-05-17] MEDS: COLACE PO (20:32)
--- NOTE | 2025-05-17 20:42 | W.PN.UPDATE ---
Update Note
Progress Note Update
Seen and evaluated today. Has small aneurysmal areas of right upper extremity fistula. Skin intact. But may be slightly thinned. It is pulsatile in general. Suggestive of outflow stenosis. Again recommending fistulogram. Timing has been the
issue, as well as his back/infectious issues with discitis etc. From a medical standpoint he is okay to proceed, and I was contacted by his computer architect yesterday to try to proceed with fistulogram. My schedule today would not allow. Will see if
we can get to him tomorrow the day after.
[2025-05-17 21:24] LABS: Glucose - Point of Care 162 mg/dl (70-99)
[2025-05-17] MEDS: MELATONIN 5 MG PO (23:24)
[2025-05-17] MEDS: LIPITOR 80 MG PO (23:24)
[2025-05-17] MEDS: SENOKOT PO (23:24)
[2025-05-17 23:35] VITALS: BP 169/88
[2025-05-18] VITALS (9 sets, daily range): BP systolic 129–177; BP diastolic 64–104; BMI 28.1
[2025-05-18] MEDS: STERILE WATER FOR INJECTION 20 ML IV ×2 (05:48→17:58)
[2025-05-18] MEDS: ROCEPHIN 2000 MG IV ×2 (05:48→17:48)
[2025-05-18] MEDS: DILAUDID 2 MG PO ×2 (05:48→21:40)
[2025-05-18] MEDS: FLEXERIL 10 MG PO ×4 (06:17→21:39)
[2025-05-18 06:50] LABS: % Basophils 0.3 % (0-2); % Eosinophils 3.5 % (0-6); % Immature Granulocytes 0.6 % (0-0.5); % Lymphocytes 11.7 % (20.5-51.1); % Neutrophils 72.9 % (42.2-75.2); Absolute Eosinophils 0.6 10^3/uL (0-0.7); Absolute Immature Granulocytes 0.1 10^3/uL (0-0.05); Absolute Lymphocytes 1.9 10^3/uL (1.2-3.4); Absolute Monocytes 1.7 10^3/uL (0.1-0.6); Absolute Neutrophils 11.5 10^3/uL (1.4-6.5); Hematocrit 30.1 % (39.0-52.0); Hemoglobin 10.1 g/dL (13.0-18.0); Mean Corp Hgb Conc. 33.6 g/dL (33.0-37.0); Mean Corpuscular Hgb 31.9 pg (27.0-31.0); Mean Platelet Volume 10.2 fL (7.4-10.4); Nucleated Red Blood Cells % 0 % (-); Platelet Count 437 10^3/uL (130-400); Red Blood Cell Count 3.17 10^6/uL (4.70-6.10); Red Cell Dist. Width 15.9 % (11.5-14.5); White Blood Cell Count 15.8 10^3/uL (4.8-10.8)
[2025-05-18 06:51] LABS: Blood Urea Nitrogen 42 mg/dl (9-20); Calcium 8.7 mg/dl (8.4-10.2); Carbon Dioxide 27 mmol/L (22-30); Chloride 98 mmol/L (98-107); Estimated Creatinine Clearance 13 ml/min; Glucose 123 mg/dl (70-99); Magnesium 2.2 mg/dl (1.6-2.3); Sodium 137 mmol/L (135-145); eGFR 12.17
[2025-05-18] MEDS: NORVASC 5 MG PO ×2 (07:31→19:47)
[2025-05-18] MEDS: TOPROL XL 25 MG PO ×2 (07:31→19:44)
[2025-05-18] MEDS: ZETIA 10 MG PO (07:31)
[2025-05-18] MEDS: PLAVIX 75 MG PO (07:31)
[2025-05-18] MEDS: COLACE 100 MG PO ×2 (07:31→19:44)
[2025-05-18] MEDS: LIDOCAINE 4% PATCH 1 PATCH TOPICAL (07:32)
[2025-05-18] MEDS: ZOLOFT 100 MG PO ×2 (07:32→19:47)
[2025-05-18] MEDS: DESENEX/MITRAZOL/ZEASORB 1 APPLIC TOPICAL ×2 (07:33→19:48)
[2025-05-18 08:20] LABS: Glucose - Point of Care 118 mg/dl (70-99)
--- NOTE | 2025-05-18 08:34 | W.PN.HOSP.TC ---
Today's Communication/Plan
-
;/
Assessment / Plan
Assessment / Plan
Assessment/plan
#Enterococcus faecalis bacteremia
#Vertebral osteomyelitis/discitis at L1-L2
-Presented as back pain, positive blood cultures at dialysis last week; CT and MRI consistent
-Blood cultures here returned positive for Enterococcus faecalis; ID following and started on IV ampicillin and ceftriaxone
-Second set of blood cultures remain negative, third set have remained NGTD
-Continue with current IV antibiotics and trend CBC and temperature curve
-Continue on Dilaudid PO, Now Q8
-Bowel Regimen
-Will need 6 weeks total amount of antibiotics through 06/16/2025.
-Will need PICC placement
#Acute blood loss anemia
#Bleeding from RUE AVG
#Chronic anemia of kidney disease
-Presented with blood loss anemia due to venous stenosis of the RUE AVG in context of home Eliquis
-Received 1 unit of PRBC here; Plavix and DOAC initially held but has been resumed with stable Hgb
-Vascular surgery following, pending fistulogram as bacteremia cleared.
-Was postponed 05/13, vascular to reschedule but timeline unclear, Awaiting Vascular to decide fistulogram date
-Continue to trend CBC and monitor for bleeding
#Paroxysmal AF/AFL
-Has history of AF for which he takes metoprolol XL and Eliquis
-Earlier in hospital stay had runs of AFL and RVR, metoprolol XL now twice daily, currently NSR
-Will continue with regimen monitor on telemetry
-If recurrence of AFL may need to consider CTI ablation
#ESRD on HD
-Nephrology consulted, input appreciated
-non-tunneled catheter placed
-HD session M/W/
#NIDDM
-A1C 4.9 03/16/2025
-Home regimen includes Ozempic; also on high intensity statin for vascular disease
-GLP-1 held, continue with ISS and Accu-Cheks here for BG goal 140-180
#CAD s/p CABG + PCI
#PAD s/p LE bypass
#Dyslipidemia
-Home regimen includes high intensity statin, Plavix; also on DOAC for AF history
-Home meds also include beta-keny for CAD, co-Q10
-No signs or symptoms of acute coronary syndrome or acute occlusive PAD
-Remains on home medications
#COPD without flare
#FINESSE not on CPAP
#Tobacco use
-Home medications include albuterol MDI as needed
-No recent PFTs to review
-No signs of flare
-Stable respiratory status here
#Primary hypertension
#H/O hypotension
-Home antihypertensive regimen includes metoprolol succinate but no first-line agents, also on HD
-Home meds also include midodrine as needed for SBP <100
-BP has been more on hypertensive side here secondary to pain
-Has IV labetalol and hydralazine ordered as needed for spikes
-Continue to address pain as above
#H/O CVA
-Likely related to AF, no known history of cerebrovascular disease or ASD
-Home regimen includes Plavix, Eliquis, high intensity statin
-No obvious residual deficits, no new FND
#Right buttock ulcer
#DTI on R heel
-Continue Wound care
#H/O CML
-Not currently on TKI or other therapy
-WBC has been persistently elevated in range of 16-30 here
-Encourage OP follow-up with oncology
DVT prophylaxis: Eliquis
CODE STATUS: Full code
Anticipated Discharge: > 48 hours
Subjective/Interval History
-
Patient seen and examined at bedside. Overall without acute complaint.
Objective Data
-
Labs:
Laboratory Results
05/18/25
05:54
WBC 15.8 H
Hgb 10.1 L
Hct 30.1 L
Plt Count 437 H
Sodium 137
Potassium 5.0
Chloride 98
Carbon Dioxide 27
BUN 42 H
Creatinine 4.9 H*
Glucose 123 H
Calcium 8.7
Vital Signs:
Vital Signs
Temp Pulse Resp BP Pulse Ox
99.3 F 72 18 161/79 99
05/18/25 07:20 05/18/25 07:20 05/18/25 07:20 05/18/25 07:20 05/18/25 07:20
I&O
05/17/25 05/18/25 05/19/25
06:59 06:59 06:59
Intake Total 1200 / 1200 240 / 240
Output Total 600 / 600 125 / 125
Balance 600 / 600 115 / 115
Review of Systems
-
All other systems: Reviewed and negative (EXCEPT DOCUMENTED)
Physical Exam
-
General: Well Developed, Well Nourished and No Apparent Distress
HEENT: Normocephalic and Atraumatic
Respiratory: Clear to Auscultation; Negative Wheezes or Rhonchi
Cardiac: Regular Rhythm and S1/S2
GI: Soft, Nontender, Nondistended and Normal Bowel Sounds
Musculoskeletal: No Clubbing, No Cyanosis and No Edema
Neuro: Awake and AO x 3
[2025-05-18] MEDS: NOVOLOG FLEXPEN-LOW RESISTANCE SC ×2 (08:35→12:07)
[2025-05-18] MEDS: AMPICILLIN 108 MG IV ×2 (09:28→21:39)
[2025-05-18] MEDS: TYLENOL 650 MG PO (12:04)
[2025-05-18 12:08] LABS: Glucose - Point of Care 111 mg/dl (70-99)
[2025-05-18] MEDS: DULCOLAX RECTAL (12:08)
[2025-05-18] MEDS: MIRALAX PO (12:08)
--- NOTE | 2025-05-18 12:12 | W.PN.NEPH.PH ---
Today's Communication / Plan
-
Dialysis tomorrow
Assessment/Plan
-
Impression:
AV fistula bleed
Leukocytosis/Enterococcus faecalis bacteremia obtained from blood cultures from dialysis earlier this week
ESRD MWF, [facility]
A-fib
DM2
CAD/CABG
Anemia
PAD
RUE AVF/ligated LUE AVG
Hyperphosphatemia
HTN
Diabetic neuropathy
Secondary hyperparathyroidism
Plan:
HD Saturday via temporary catheter
await vasc fistulogram possible 05/19
will need change to tunneled catheter if unable to address the fistula and this would make it complicated for PEG placement.
In the event we keep the tunnel catheter he will need to get a tunneled IJ and lieu of PICC line on the opposite side for IV antibiotics
abx per ID,
-
-
Date of Service: May 18, 2025
CC / HPI / ROS
-
Chief Complaint:
ESRD
History of Present Illness:
ESRD on Saturday schedule
Hemodynamically stable
Remains on ampicillin for Enterococcus faecalis bacteremia
no fever, leucocytosis up at 15k
Review of Systems:
Temp IJ cath
No chest pain or shortness of breath
Labs
-
Labs:
WBC 15.8 10^3/uL (4.8-10.8) H 05/18/25 05:54
RBC 3.17 10^6/uL (4.70-6.10) L 05/18/25 05:54
Hgb 10.1 g/dL (13.0-18.0) L 05/18/25 05:54
Hct 30.1 % (39.0-52.0) L 05/18/25 05:54
Plt Count 437 10^3/uL (130-400) H 05/18/25 05:54
Sodium 137 mmol/L (135-145) 05/18/25 05:54
Potassium 5.0 mmol/L (3.5-5.1) 05/18/25 05:54
Chloride 98 mmol/L (98-107) 05/18/25 05:54
Carbon Dioxide 27 mmol/L (22-30) 05/18/25 05:54
BUN 42 mg/dl (9-20) H 05/18/25 05:54
Creatinine 4.9 mg/dL (0.7-1.3) H* 05/18/25 05:54
eGFR 12.17 05/18/25 05:54
Glucose 123 mg/dl (70-99) H 05/18/25 05:54
Calcium 8.7 mg/dl (8.4-10.2) 05/18/25 05:54
Albumin 4.2 g/dl (3.5-5.0) 05/02/25 23:09
Physical Exam
-
Vital Signs:
Vital Signs
Temp Pulse Resp BP Pulse Ox
99.3 F 72 18 161/79 99
05/18/25 07:20 05/18/25 07:20 05/18/25 07:20 05/18/25 07:20 05/18/25 07:20
Cardiovascular:: Regular rate and rhythm
Respiratory:: Bilateral: CTA
Lung Excursion:: Normal
Abdomen:: Nontender and Soft
Bowel Sounds:: Normal
Extremity Edema:: None: Bilateral:
Luther Catheter: No
Other Findings::
AVF +thrill
anastomotic area small aneursym
[2025-05-18] MEDS: SOLU-CORTEF 200 MG IV (14:19)
[2025-05-18] MEDS: BENADRYL 50 MG IV (15:22)
--- NOTE | 2025-05-18 16:48 | PTCARENOTE ---
All VS prior to 1646 from previous RN
[2025-05-18 16:49] LABS: Glucose - Point of Care 150 mg/dl (70-99)
[2025-05-18] MEDS: DILAUDID PO (16:58)
--- NOTE | 2025-05-18 17:00 | OR.RPT ---
Operative Report
Operative Report
Date of Operation: 05/18/2025
Pre Op Diagnosis:
1. Poorly functioning right upper extremity arteriovenous fistula
2. End-stage renal disease requiring hemodialysis
Post Op Diagnosis:
1. Poorly functioning right upper extremity arteriovenous fistula
2. End-stage renal disease requiring hemodialysis
Procedure:
1. Diagnostic right upper extremity fistulogram
2. Diagnostic central venogram
3. Drug-coated balloon angioplasty and stenting of venous outflow stenosis (7 mm x 80 mm Lutonix DCB; 7 mm x 5 cm Viabahn stent graft)
4. Balloon angioplasty of brachiocephalic stenosis (10 mm x 40 mm angioplasty balloon
5. Ultrasound-guided percutaneous access to the right upper extremity arteriovenous fistula
Surgeon: Palu Luther III, MD
Hotel Staff Member: Ba Crandall MD, PGY5
Anesthesia: Sedation/local
Complications: None
Fluoroscopy:
12.2 minutes
86 mGy
17.99 DAP
History and Indications for Procedure: 69-year-old male with poorly functioning right upper extremity arteriovenous fistula
Procedure in Detail: Paramjit Banuelos was correctly identified and placed supine on the operating table. After adequate induction of anesthesia the right arm was positioned, prepped and draped in the usual sterile fashion. Preoperative antibiotics were
administered. A timeout procedure was performed with the nursing and anesthesia staff confirming the patient�s identity as well as the nature and laterality of the procedure.
Intraoperative ultrasound was performed on the AV access. This appeared to be a brachiobasilic arteriovenous fistula. Ultrasound demonstrated patent fistula. The stent in the midportion of the fistula was completely crushed..
I identified a puncture site along the proximal venous outflow towards the arteriovenous anastomosis and infiltrated local anesthesia at this site. Under ultrasound guidance I accessed the fistula with a micropuncture needle facing towards the
venous outflow and placed the micropuncture sheath. I performed a fistulogram which demonstrated the following:
Fistulogram: Patent. Aneurysmal venous outflow with several areas of pseudoaneurysm identified. Larger pseudoaneurysm in the upper arm. Short stent in the mid venous outflow completely crushed. High-grade segment of venous outflow stenosis just
distal to this. Patent Viabahn stent graft in the distal venous outflow with no evidence of stenosis.
Central venogram: Patent central venous system. Focal stenosis in the brachiocephalic.
Endovascular intervention: Systemic heparin was administered. A short 7 Fr sheath was placed. Under roadmap guidance a Photorank wire was used to cross the crushed stent and venous outflow stenosis. I then brought a 7 mm x 60 mm angioplasty balloon
into position under roadmap guidance and centered this across the stenosis and crushed stent. This was inflated to rated burst pressure. Subsequent images demonstrated improvement with a now widely patent stent and improvement in the venous outflow
stenosis. I subsequently followed this with a 7 mm x 80 mm Lutonix drug-coated balloon. The balloon was placed in the desired location under roadmap guidance. The balloon was inflated to nominal pressure in the venous outflow stenosis just beyond
the previously crushed stent and left in place for 3 minutes. The balloon was deflated and removed over the wire. I then brought into position a 10 mm x 40 mm angioplasty balloon to treat the brachiocephalic stenosis. The balloon was positioned
in the desired location and inflated to nominal pressure. Subsequent fistulogram demonstrated an improved result with a widely patent venous outflow however there was some angulation of the outflow vein just distal to the end of the short stent
which appeared to contribute to a stenosis. I elected to extend a stent further distally to address this angulation. Exchanged out for a 0.018 wire. I brought into position a 7 mm x 5 cm Viabahn stent graft. This was positioned in the desired
location and deployed. I postdilated the stent with a 7 mm angioplasty balloon.
The reflux fistulogram demonstrated a patent proximal outflow vein, patent arteriovenous anastomosis and reflux into the brachial artery which was patent and no stenosis identified.
Completion fistulogram demonstrated a patent fistula. Brisk venous outflow. Large pseudoaneurysm once again identified in the upper arm. Patent Viabahn stent graft with no residual stenosis identified. Patent central venous system.
At the conclusion of the procedure a Monocryl suture was placed around the sheath puncture site. The sheath was removed and the suture secured. Hemostasis was achieved. A sterile dressing was applied.
The patient tolerated the procedure well and was taken to the PACU in stable condition
Attestation: I was present and responsible for the entire procedure
Signed:
Paul Luther III, MD
Vascular Surgery
[facility]
--- NOTE | 2025-05-18 17:38 | PTCARENOTE ---
Received pt back from PACU s/p fistulogram. R AVF + thrill + bruit, 2x2 gauze w/ tegaderm c/d/i, no hematoma or oozing. VSS. VS 150, pt ordering dinner now. AO, drowsy, needing reorientation to time.
[2025-05-18] MEDS: NOVOLOG FLEXPEN-LOW RESISTANCE 1 UNITS SC (17:47)
[2025-05-18 21:13] LABS: Glucose - Point of Care 230 mg/dl (70-99)
[2025-05-18] MEDS: SENOKOT 17.2 MG PO (21:41)
[2025-05-18] MEDS: LIPITOR 80 MG PO (21:41)
[2025-05-18] MEDS: MELATONIN 5 MG PO (21:42)
[2025-05-19 04:20] VITALS: BP 147/59
[2025-05-19 06:00] VITALS: BMI 28.2
[2025-05-19] MEDS: STERILE WATER FOR INJECTION 20 ML IV ×2 (06:13→17:54)
[2025-05-19] MEDS: DILAUDID 2 MG PO ×3 (06:14→22:55)
[2025-05-19] MEDS: ROCEPHIN 2000 MG IV ×2 (06:14→17:54)
--- NOTE | 2025-05-19 07:12 | W.PN.HOSP.TC ---
Today's Communication/Plan
-
;/
Assessment / Plan
Assessment / Plan
Assessment/plan
#Enterococcus faecalis bacteremia
#Vertebral osteomyelitis/discitis at L1-L2
-Presented as back pain, positive blood cultures at dialysis last week; CT and MRI consistent
-Blood cultures here returned positive for Enterococcus faecalis; ID following and started on IV ampicillin and ceftriaxone
-Second set of blood cultures remain negative, third set have remained NGTD
-Continue with current IV antibiotics and trend CBC and temperature curve
-Continue on Dilaudid PO, Now Q8
-Bowel Regimen
-Will need 6 weeks total amount of antibiotics through 06/16/2025.
-PICC placement today
#Acute blood loss anemia
#Bleeding from RUE AVG s/p fistulogram 05/18 with balloon/stent
#Chronic anemia of kidney disease
-Presented with blood loss anemia due to venous stenosis of the RUE AVG in context of home Eliquis
-Received 1 unit of PRBC here; Plavix and DOAC initially held but has been resumed with stable Hgb
-Vascular surgery following
-s/p fistulogram 05/18 with balloon/stent demonstrating a patent fistula
-Plan to use RUE AVF today
-Continue to trend CBC and monitor for bleeding
#Paroxysmal AF/AFL
-Has history of AF for which he takes metoprolol XL and Eliquis
-Earlier in hospital stay had runs of AFL and RVR, metoprolol XL now twice daily, currently NSR
-Will continue with regimen monitor on telemetry
-If recurrence of AFL may need to consider CTI ablation
#ESRD on HD
-Nephrology consulted, input appreciated
-temp non-tunneled catheter placed for use
-HD session M/W/F
#NIDDM
-A1C 4.9 03/16/2025
-Home regimen includes Ozempic; also on high intensity statin for vascular disease
-GLP-1 held, continue with ISS and Accu-Cheks here for BG goal 140-180
#CAD s/p CABG + PCI
#PAD s/p LE bypass
#Dyslipidemia
-Home regimen includes high intensity statin, Plavix; also on DOAC for AF history
-Home meds also include beta-keny for CAD, co-Q10
-No signs or symptoms of acute coronary syndrome or acute occlusive PAD
-Remains on home medications
#COPD without flare
#FINESSE not on CPAP
#Tobacco use
-Home medications include albuterol MDI as needed
-No recent PFTs to review
-No signs of flare
-Stable respiratory status here
#Primary hypertension
#H/O hypotension
-Home antihypertensive regimen includes metoprolol succinate but no first-line agents, also on HD
-Home meds also include midodrine as needed for SBP <100
-BP has been more on hypertensive side here secondary to pain
-Has IV labetalol and hydralazine ordered as needed for spikes
-Continue to address pain as above
#H/O CVA
-Likely related to AF, no known history of cerebrovascular disease or ASD
-Home regimen includes Plavix, Eliquis, high intensity statin
-No obvious residual deficits, no new FND
#Right buttock ulcer
#DTI on R heel
-Continue Wound care
#H/O CML
-Not currently on TKI or other therapy
-WBC has been persistently elevated in range of 16-30 here
-Encourage OP follow-up with oncology
DVT prophylaxis: Eliquis
CODE STATUS: Full code
Anticipated Discharge: 24 - 48 hours
Subjective/Interval History
-
Patient seen at Bedside on HD. Reports improvement to lower back spasm.
Objective Data
-
Labs:
Laboratory Results
05/19/25
06:00
WBC Pending
Hgb Pending
Hct Pending
Plt Count Pending
Sodium Pending
Potassium Pending
Chloride Pending
Carbon Dioxide Pending
BUN Pending
Creatinine Pending
Glucose Pending
Calcium Pending
Vital Signs:
Vital Signs
Temp Pulse Resp BP Pulse Ox
98.7 F 68 16 147/59 95
05/19/25 04:20 05/19/25 04:20 05/19/25 04:20 05/19/25 04:20 05/19/25 04:20
I&O
05/18/25 05/19/25 05/20/25
06:59 06:59 06:59
Intake Total 240 / 240 360 / 360
Output Total 125 / 125 250 / 250
Balance 115 / 115 110 / 110
Review of Systems
-
All other systems: Reviewed and negative (EXCEPT DOCUMENTED)
Physical Exam
-
General: Well Developed, Well Nourished and No Apparent Distress
HEENT: Normocephalic and Atraumatic
Respiratory: Clear to Auscultation; Negative Wheezes or Rhonchi
Cardiac: Regular Rhythm and S1/S2
GI: Soft, Nontender, Nondistended and Normal Bowel Sounds
Musculoskeletal: No Clubbing, No Cyanosis and No Edema
Neuro: Awake and AO x 3
Psych: Calm
[2025-05-19 07:30] VITALS: BP 158/70
[2025-05-19 08:10] LABS: Glucose - Point of Care 124 mg/dl (70-99)
[2025-05-19 08:23] LABS: % Basophils 0.2 % (0-2); % Immature Granulocytes 0.6 % (0-0.5); % Lymphocytes 7.4 % (20.5-51.1); % Monocytes 9.7 % (1.7-9.3); % Neutrophils 82.1 % (42.2-75.2); Absolute Immature Granulocytes 0.1 10^3/uL (0-0.05); Absolute Lymphocytes 1.3 10^3/uL (1.2-3.4); Absolute Monocytes 1.7 10^3/uL (0.1-0.6); Absolute Neutrophils 14.3 10^3/uL (1.4-6.5); Hematocrit 30.1 % (39.0-52.0); Hemoglobin 9.9 g/dL (13.0-18.0); Mean Corp Hgb Conc. 32.9 g/dL (33.0-37.0); Mean Corpuscular Hgb 31.4 pg (27.0-31.0); Mean Corpuscular Volume 95.6 fL (80.0-94.0); Nucleated Red Blood Cells % 0 % (-); Platelet Count 492 10^3/uL (130-400); Red Blood Cell Count 3.15 10^6/uL (4.70-6.10); Red Cell Dist. Width 15.9 % (11.5-14.5); White Blood Cell Count 17.5 10^3/uL (4.8-10.8)
[2025-05-19 09:09] LABS: Blood Urea Nitrogen 64 mg/dl (9-20); Calcium 8.7 mg/dl (8.4-10.2); Carbon Dioxide 21 mmol/L (22-30); Chloride 98 mmol/L (98-107); Estimated Creatinine Clearance 10 ml/min; Glucose 118 mg/dl (70-99); Magnesium 2.3 mg/dl (1.6-2.3); Potassium 5.6 mmol/L (3.5-5.1); Sodium 135 mmol/L (135-145); eGFR 8.22
[2025-05-19] MEDS: NOVOLOG FLEXPEN-LOW RESISTANCE SC ×3 (09:42→17:53)
[2025-05-19] MEDS: COLACE 100 MG PO ×2 (09:43→20:50)
[2025-05-19] MEDS: ZOLOFT 100 MG PO ×2 (09:44→20:50)
[2025-05-19] MEDS: ZETIA 10 MG PO (09:44)
[2025-05-19] MEDS: RETACRIT 4000 UNITS IV (10:02)
--- NOTE | 2025-05-19 10:38 | W.PN.NEPH.HD ---
Assessment
-
pt seen during HD
vitals stable
AVF s/p angioplasty and stent out flow venous site on 05/18
mild high venous pressure, tolerating HD
If he completes hD with out difficulty ok to remove temp HD catheter
PICC line per primary
d/c plan
d/w primary
Progress Note - Hemodialysis
-
Date of Service: May 19, 2025
Duration: 30 minutes and 3 hours
Potassium Bath: 2
Calcium Bath: 2.5
Opti-Dialyzer: 160
Ultrafiltration: Other (2-2.5kg)
Blood Flow: 400
Dialysate Flow: 600
Heparin: no
EPO: 4000
[2025-05-19] MEDS: AMPICILLIN 108 MG IV ×2 (10:59→22:55)
--- NOTE | 2025-05-19 11:13 | CM ---
Pt accepted for transfer to [facility] pending dialysis acceptance. [facility] updated; dialysis flow sheets and updated labs sent via fax.
[2025-05-19 11:55] VITALS: BP 131/73
[2025-05-19 11:55] LABS: Glucose - Point of Care 145 mg/dl (70-99)
[2025-05-19] MEDS: DULCOLAX 10 MG RECTAL (12:38)
[2025-05-19] MEDS: PLAVIX 75 MG PO (12:38)
[2025-05-19] MEDS: NEPHROCAP 1 CAPSULE PO (12:38)
[2025-05-19] MEDS: DESENEX/MITRAZOL/ZEASORB 1 APPLIC TOPICAL ×2 (12:38→20:52)
[2025-05-19] MEDS: LIDOCAINE 4% PATCH 1 PATCH TOPICAL (12:39)
[2025-05-19] MEDS: TOPROL XL 25 MG PO ×2 (12:39→20:58)
[2025-05-19] MEDS: NORVASC 5 MG PO ×2 (12:39→20:58)
[2025-05-19] MEDS: MIRALAX 17 GRAMS PO (12:40)
--- NOTE | 2025-05-19 15:00 | VATNOTE ---
Order for L sided PICC line received. Upon talking to the patient while doing procedure preparation, it was discovered that pt had an old L sided fistula. RN assisting with the procedure gerber texted resident and hospitalist to get authorization to
place PICC in L arm with old fistula. Medicine contacted Nephrology who gave the approval for a PICC line to be placed in the L arm with the old fistula. Pt with mobility issues in his left shoulder, as a result attempted to access the cephalic vein
twice unsuccessfully. Basilic vein attempted, accessed on second attempt. Wire threaded through the needle without issue. Introducer placed over the guidewire without difficulty. PICC inserted through the introducer, only able to insert 18cm of the
PICC line. Procedure aborted and PICC line and introducer removed. contacted for IR consult, called IR to give verbal report regarding insertion attempt.
--- NOTE | 2025-05-19 15:10 | CM ---
CM contacted by regarding discharge to [facility] today. [facility] did not receive the updated clinical via fax that was sent over the weekend. Records faxed over today for review.
Due to pt not being cleared for dialysis at [facility], discharge will have to be delayed until tomorrow. Pt will be able to dialyze at [facility] on .
Plan: Discharge to [facility] tomorrow.
--- NOTE | 2025-05-19 15:43 | W.PN.ID1 ---
Date of Service
Date of Service: May 19, 2025
Today's Communication
--> Continue ampicillin 2g IV q12 through 06/16/2025 (6 weeks from first negative blood culture)
--> Continue ceftriaxone 2g IV q12 through 06/16/2025 (6 weeks from first negative blood culture)
---> Follow weekly CBC/diff, CMP ESR, CRP while on abx's
Assessment / Plan
Leukocytosis
Low back pain 2* L1-2 discitis / vertebral osteomyelitis
Bacteremia with E. faecalis
- cleared
Constipation / obstipation
Elevated ESR
Elevated CRP
pA-fib
CML
COPD
Hx CVA
HTN
HLD
DM type II
CAD; Hx PR
ESRD�HD
Obesity
Recommendations:
White count remains elevated, but appears stable. ?reactive
Blood cultures (05/03/25) with E. faecalis. Repeat blood cultures (05/05, 05/07) without growth.
MRI findings compatible with discitis and osteomyelitis at L1-2. Possible paraspinal inflammation also noted.
TTE nondiagnostic.
--> Continue ampicillin 2g IV q12 through 06/16/2025 (6 weeks from first negative blood culture)
--> Continue ceftriaxone 2g IV q12 through 06/16/2025 (6 weeks from first negative blood culture)
---> Follow weekly CBC/diff, CMP ESR, CRP while on abx's
Script submitted to pillowcase cleaner.
Follow white count and temperature curve.
���������������������������������������������������������
Chief Complaint
-: Bacteremia
Subjective / Review of Systems
Fistula now working.
Vital Signs / Physical Exam
Vital Signs
Vital Signs
Temp Pulse Resp BP Pulse Ox
98.7 F 82 18 131/73 96
05/19/25 11:55 05/19/25 12:39 05/19/25 11:55 05/19/25 12:39 05/19/25 11:55
Physical Exam
Constitutional: No Acute Distress and Comfortable
Cardiovascular: Regular Rate and S1/S2
Pulmonary: Clear
Gastrointestinal: Soft, Non Tender and Non Distended
Extremities: Negative Edema
Neurological: AO x 3
Objective Data
Lab Data
Lab Results
05/19/25 07:29
05/19/25 07:29
ESR 92 mm/hour (0-20) H 05/06/25 05:39
PT 15.9 Sec (11.4-14.6) H 05/13/25 07:29
INR 1.22 05/13/25 07:29
APTT 41.0 Sec (23.4-35.0) H 05/13/25 07:29
Estimated Creat Clear 10 ml/min 05/19/25 07:29
Lactic Acid 0.7 mmol/L (0.7-2.0) 05/02/25 23:37
Total Bilirubin 0.6 mg/dl (0.2-1.3) 05/02/25 23:09
AST 21 U/L (17-59) 05/02/25 23:09
ALT < 10 U/L (0-50) 05/02/25 23:09
Alkaline Phosphatase 157 U/L (38-126) H 05/02/25 23:09
C-Reactive Protein 63.00 mg/L (0.0-10.00) H 05/06/25 05:39
Most recent labs reviewed.
Micro Results:
05/07/25 10:56 Blood Culture - Final
Blood/Venous No Growth - Final Report
05/07/25 09:57 Blood Culture - Final
Blood/Venous No Growth - Final Report
05/03/25 00:14 Blood Culture - Final
Blood/Venous Enterococcus faecalis
Gram Stain - Final
05/05/25 08:41 Blood Culture - Final
Blood/Venous No Growth - Final Report
05/05/25 07:28 Blood Culture - Final
Blood/Venous No Growth - Final Report
05/02/25 23:37 Blood Culture - Final
Blood/Venous No Growth - Final Report
05/03/25 11:43 Blood Culture - Final
Blood/Venous Enterococcus faecalis
Gram Stain - Final
05/03/25 11:02 Blood Culture - Final
Blood/Venous Enterococcus faecalis
Gram Stain - Final
05/03/25 06:19 MRSA Screen - Final
Nose No Methicillin Resistant Staphylococcus aureus isolated.
Imaging:
05/05/2025 ECHO (TTE): Technically difficult study. EF approximately 50%. No evidence of vegetation but consider LISA if clinically indicated. See full dictation for additional detail.
05/03/2025 CT abdomen/pelvis without contrast: Moderate colonic stool burden without evidence of obstruction. Prior L1-L5 posterior spinal fusion noted. There are endplate irregularities with mild surrounding paraspinal soft tissue
thickening/stranding at the L1-L2 intervertebral space which is concerning for discitis or osteomyelitis. A dedicated MRI with and without contrast may be considered as clinically indicated.
Care Review
Plan reviewed with: Physician (Dr. Alexander)
--- NOTE | 2025-05-19 15:44 | W.PN.UPDATE ---
Update Note
Progress Note Update
Patient seen at bedside this afternoon. Patient offers no complaints at this time. HD was successful using AVF this morning. Site looks clean dry and intact, palpable thrill.
Patient okay for discharge from vascular standpoint. Follow-up instructions left in the chart.
[2025-05-19 16:00] VITALS: BP 135/68
[2025-05-19 16:16] VITALS: BP 143/68; BP_SYST 81
[2025-05-19 17:50] LABS: Glucose - Point of Care 142 mg/dl (70-99)
[2025-05-19] MEDS: FLEXERIL 10 MG PO (17:54)
--- NOTE | 2025-05-19 18:22 | PTCARENOTE ---
VAT team unable to place PICC bedside. Pt went to IR to get PICC placed. Returned with L arm PICC line. Evening medications and antibiotics administered. Plan of care ongoing.
[2025-05-19 20:42] LABS: Glucose - Point of Care 220 mg/dl (70-99)
[2025-05-19] MEDS: ELIQUIS 5 MG PO (20:51)
[2025-05-19] MEDS: MELATONIN 5 MG PO (22:55)
[2025-05-19] MEDS: SENOKOT 17.2 MG PO (22:55)
[2025-05-19] MEDS: LIPITOR 80 MG PO (22:55)
[2025-05-19 23:38] VITALS: BP 146/59
[2025-05-20 05:30] LABS: Hematocrit 30.4 % (39.0-52.0); Hemoglobin 9.9 g/dL (13.0-18.0); Mean Corp Hgb Conc. 32.6 g/dL (33.0-37.0); Mean Corpuscular Hgb 31.6 pg (27.0-31.0); Mean Corpuscular Volume 97.1 fL (80.0-94.0); Mean Platelet Volume 10.4 fL (7.4-10.4); Platelet Count 405 10^3/uL (130-400); Red Blood Cell Count 3.13 10^6/uL (4.70-6.10); Red Cell Dist. Width 16.1 % (11.5-14.5)
[2025-05-20 06:04] LABS: Blood Urea Nitrogen 46 mg/dl (9-20); Calcium 8.5 mg/dl (8.4-10.2); Carbon Dioxide 27 mmol/L (22-30); Chloride 96 mmol/L (98-107); Estimated Creatinine Clearance 14 ml/min; Glucose 85 mg/dl (70-99); Potassium 4.9 mmol/L (3.5-5.1); Sodium 137 mmol/L (135-145)
[2025-05-20] MEDS: DILAUDID 2 MG PO ×2 (06:10→13:56)
[2025-05-20] MEDS: STERILE WATER FOR INJECTION 20 ML IV ×2 (06:10→17:22)
[2025-05-20] MEDS: ROCEPHIN 2000 MG IV ×2 (06:10→17:22)
--- NOTE | 2025-05-20 07:17 | W.PN.HOSP.TC ---
Today's Communication/Plan
-
;/
Assessment / Plan
Assessment / Plan
Assessment/plan
#Enterococcus faecalis bacteremia
#Vertebral osteomyelitis/discitis at L1-L2
-Presented as back pain, positive blood cultures at dialysis last week; CT and MRI consistent
-Blood cultures here returned positive for Enterococcus faecalis; ID following and started on IV ampicillin and ceftriaxone
-Second set of blood cultures remain negative, third set have remained NGTD
-Continue with current IV antibiotics and trend CBC and temperature curve
-Continue on Dilaudid PO, Now Q8
-Bowel Regimen
-Will need 6 weeks total amount of antibiotics through 06/16/2025.
-PICC in place.
#Acute blood loss anemia
#Bleeding from RUE AVG s/p fistulogram 05/18 with balloon/stent
#Chronic anemia of kidney disease
-Presented with blood loss anemia due to venous stenosis of the RUE AVG in context of home Eliquis
-Received 1 unit of PRBC here; Plavix and DOAC initially held but has been resumed with stable Hgb
-Vascular surgery following
-s/p fistulogram 05/18 with balloon/stent demonstrating a patent fistula
-RUE AVF used for HD yesterday without complication.
-Continue to trend CBC and monitor for bleeding
#Paroxysmal AF/AFL
-Has history of AF for which he takes metoprolol XL and Eliquis
-Earlier in hospital stay had runs of AFL and RVR, metoprolol XL now twice daily, currently NSR
-Will continue with regimen monitor on telemetry
-If recurrence of AFL may need to consider CTI ablation
#ESRD on HD
-Nephrology consulted, input appreciated
-temp non-tunneled catheter placed for use
-HD session M/W/F
#NIDDM
-A1C 4.9 03/16/2025
-Home regimen includes Ozempic; also on high intensity statin for vascular disease
-GLP-1 held, continue with ISS and Accu-Cheks here for BG goal 140-180
#CAD s/p CABG + PCI
#PAD s/p LE bypass
#Dyslipidemia
-Home regimen includes high intensity statin, Plavix; also on DOAC for AF history
-Home meds also include beta-keny for CAD, co-Q10
-No signs or symptoms of acute coronary syndrome or acute occlusive PAD
-Remains on home medications
#COPD without flare
#FINESSE not on CPAP
#Tobacco use
-Home medications include albuterol MDI as needed
-No recent PFTs to review
-No signs of flare
-Stable respiratory status here
#Primary hypertension
#H/O hypotension
-Home antihypertensive regimen includes metoprolol succinate but no first-line agents, also on HD
-Home meds also include midodrine as needed for SBP <100
-BP has been more on hypertensive side here secondary to pain
-Has IV labetalol and hydralazine ordered as needed for spikes
-Continue to address pain as above
#H/O CVA
-Likely related to AF, no known history of cerebrovascular disease or ASD
-Home regimen includes Plavix, Eliquis, high intensity statin
-No obvious residual deficits, no new FND
#Right buttock ulcer
#DTI on R heel
-Continue Wound care
#H/O CML
-Not currently on TKI or other therapy
-WBC has been persistently elevated in range of 16-30 here
-Encourage OP follow-up with oncology
DVT prophylaxis: Eliquis
CODE STATUS: Full code
Anticipated Discharge: Today
Subjective/Interval History
-
patient seen and examined at bedside. In no distress.
Objective Data
-
Labs:
Laboratory Results
05/20/25
04:52
WBC 14.0 H
Hgb 9.9 L
Hct 30.4 L
Plt Count 405 H
Sodium 137
Potassium 4.9
Chloride 96 L
Carbon Dioxide 27
BUN 46 H
Creatinine 4.7 H*
Glucose 85
Calcium 8.5
Vital Signs:
Vital Signs
Temp Pulse Resp BP Pulse Ox
98.9 F 74 18 146/59 95
05/19/25 23:38 05/19/25 23:38 05/19/25 23:38 05/19/25 23:38 05/19/25 23:38
I&O
05/19/25 05/20/25 05/21/25
06:59 06:59 06:59
Intake Total 360 / 360 800 / 800
Output Total 250 / 250 325 / 325
Balance 110 / 110 475 / 475
Review of Systems
-
All other systems: Reviewed and negative (except as documented)
Physical Exam
-
General: Well Developed, Well Nourished and No Apparent Distress
HEENT: Normocephalic and Atraumatic
Respiratory: Clear to Auscultation; Negative Wheezes or Rhonchi
Cardiac: Regular Rhythm and S1/S2
GI: Soft, Nontender, Nondistended and Normal Bowel Sounds
Musculoskeletal: No Clubbing, No Cyanosis and No Edema
Neuro: Awake and AO x 3
Psych: Calm
[2025-05-20 07:30] VITALS: BP 181/67
[2025-05-20 08:05] LABS: Glucose - Point of Care 101 mg/dl (70-99)
[2025-05-20] MEDS: NOVOLOG FLEXPEN-LOW RESISTANCE SC ×2 (09:04→13:16)
[2025-05-20] MEDS: MIRALAX 17 GRAMS PO (09:05)
[2025-05-20] MEDS: ZETIA 10 MG PO (09:05)
[2025-05-20] MEDS: TOPROL XL 25 MG PO (09:05)
[2025-05-20] MEDS: PLAVIX 75 MG PO (09:05)
[2025-05-20] MEDS: COLACE 100 MG PO (09:11)
[2025-05-20] MEDS: NORVASC 5 MG PO (09:11)
[2025-05-20] MEDS: ELIQUIS 5 MG PO (09:11)
[2025-05-20] MEDS: DULCOLAX 10 MG RECTAL (09:11)
[2025-05-20] MEDS: AMPICILLIN 108 MG IV (09:12)
[2025-05-20] MEDS: ZOLOFT 100 MG PO (09:12)
[2025-05-20] MEDS: LIDOCAINE 4% PATCH 1 PATCH TOPICAL (09:14)
[2025-05-20] MEDS: DESENEX/MITRAZOL/ZEASORB 1 APPLIC TOPICAL (09:15)
[2025-05-20] MEDS: FLEXERIL 10 MG PO ×2 (09:52→17:22)
[2025-05-20 11:52] VITALS: PULSE 72; O2SAT 99
--- NOTE | 2025-05-20 12:32 | CM ---
Spoke with Shanique/[facility]leg[facility]
Patient accepted for skilled rehab and HD- M-W-F
[facility] updated- updated referral sent (PICC line info, AVF info, wound care notes and updated therapy notes included)
Plan: [facility]
Report# [phone]
[2025-05-20 12:39] LABS: Glucose - Point of Care 101 mg/dl (70-99)
--- NOTE | 2025-05-20 14:36 | W.PN.NEPH.PH ---
Today's Communication / Plan
-
ok for d/c
Assessment/Plan
-
Impression:
AV fistula bleed
Leukocytosis/Enterococcus faecalis bacteremia obtained from blood cultures from dialysis earlier this week
ESRD MWF, [facility]
A-fib
DM2
CAD/CABG
Anemia
PAD
RUE AVF/ligated LUE AVG
Hyperphosphatemia
HTN
Diabetic neuropathy
Secondary hyperparathyroidism
Plan:
Tolerated HD with AVF
need vasc f/u out pt
d/c HD catheter today, s/p left PICC line now
plan noted to d/c to [facility]
abx per ID
d/w pt and primary
-
-
Date of Service: May 20, 2025
CC / HPI / ROS
-
Chief Complaint:
ESRD
History of Present Illness:
ESRD on Saturday schedule
Hemodynamically stable
Remains on ampicillin for Enterococcus faecalis bacteremia
no fever, leucocytosis up at 14k
Review of Systems:
Temp IJ cath removed
No chest pain or shortness of breath
Labs
-
Labs:
WBC 14.0 10^3/uL (4.8-10.8) H 05/20/25 04:52
RBC 3.13 10^6/uL (4.70-6.10) L 05/20/25 04:52
Hgb 9.9 g/dL (13.0-18.0) L 05/20/25 04:52
Hct 30.4 % (39.0-52.0) L 05/20/25 04:52
Plt Count 405 10^3/uL (130-400) H 05/20/25 04:52
Sodium 137 mmol/L (135-145) 05/20/25 04:52
Potassium 4.9 mmol/L (3.5-5.1) 05/20/25 04:52
Chloride 96 mmol/L (98-107) L 05/20/25 04:52
Carbon Dioxide 27 mmol/L (22-30) 05/20/25 04:52
BUN 46 mg/dl (9-20) H 05/20/25 04:52
Creatinine 4.7 mg/dL (0.7-1.3) H* 05/20/25 04:52
eGFR 12.80 05/20/25 04:52
Glucose 85 mg/dl (70-99) 05/20/25 04:52
Calcium 8.5 mg/dl (8.4-10.2) 05/20/25 04:52
Albumin 4.2 g/dl (3.5-5.0) 05/02/25 23:09
Physical Exam
-
Vital Signs:
Vital Signs
Temp Pulse Resp BP Pulse Ox
97.8 F 75 16 181/67 96
05/20/25 07:30 05/20/25 09:11 05/20/25 07:30 05/20/25 09:11 05/20/25 07:30
Cardiovascular:: Regular rate and rhythm
Respiratory:: Bilateral: CTA
Lung Excursion:: Normal
Abdomen:: Nontender and Soft
Bowel Sounds:: Normal
Extremity Edema:: None: Bilateral:
Luther Catheter: No
Other Findings::
AVF +thrill
[2025-05-20 15:45] VITALS: BP 138/60
--- NOTE | 2025-05-20 16:21 | CM ---
Pt cleared for discharge to [facility] with dialysis and IV abx today. 7PM transport arranged for this evening.
[facility]
Report# [phone]
--- NOTE | 2025-05-20 16:33 | W.DCSUMMARY ---
Documented by User: Amanda Larios MD, Resident 05/20/25 16:33
Discharge Summary
Discharge Data
Date of Admission: 05/03/25
Date of Discharge: 05/20/25
-
Pending Results: No
Hospital Course
Primary Diagnosis:
1. Enterococcus faecalis bacteremia
2. Vertebral osteomyelitis/discitis at L1-L2
3.Bleeding from RUE AV Fistula s/p fistulogram 05/18 with balloon/stent
Secondary Diagnoses:
1. Paroxysmal Atrial Fibrillation/Atrial Flutter
2. ESRD on HD
3. Type 2 diabetes mellitus
4. CML
Brief Hospital course: This is a 69-year-old male with past medical history of end-stage renal disease on hemodialysis Saturday via a right upper extremity AV fistula, proximal atrial fibrillation on Eliquis, hypertension only on
Norvasc, ADHD with depression and anxiety, CAD status post CABG, status post stents and October 2024 on Plavix who presented to the emergency department 05/03 with bleeding from the left upper extremity AV fistula. Prior to presentation, he had
dialysis the Saturday before. He noted significant bleeding from sites the next day. On arrival in the emergency department they noted extensive blood soaked gauze on the site with removal of that gauze there was a punctate sprain of blood.
Pressure was applied then collagen dressing was applied. Patient also reported recent history of constipation. He was on oxycodone for pain and reports that he had not a bowel movement in at least 1 week possibly 2. Reports he is passing gas.
Reports nausea but denies any vomiting. Reports abdominal pain discomfort and decreased p.o. intake. He denies any fevers or chills. Also reports back pain which has been ongoing for weeks. There were concerns for possible diverticulitis
prompting imaging which showed erosive change involving anterior inferior aspect of L1 vertebrae with mild thickening/stranding of the paravertebral soft tissues. Blood cultures were obtained, ID was consulted.
-Enterococcus faecalis bacteremia/Vertebral osteomyelitis/discitis at L1-L2
Blood cultures returned positive for Enterococcus faecalis. He was started on IV ampicillin and ceftriaxone. Was evaluated with a lumbar spine MRI with findings compatible with discitis and osteomyelitis at L1-L2 level, with evidence for
paraspinal inflammation with possible paraspinal abscess. Given this imaging findings, neurosurgery was consulted. His imaging was reviewed again, neurosurgery did not appreciate any epidural abscess that required surgery. Recommendation was to
continue on antibiotics for Enterococcus. Throughout the course of his hospital stay, blood cultures were followed until cleared. His second set of blood cultures remained negative. And his third sets were negative to date. He will be continued
on IV ampicillin every 12 hours and ceftriaxone every 12 hours for a total of 6 weeks from first negative blood culture (06/16/2025).
-Bleeding from RUE AV Fistula s/p fistulogram 05/18 with balloon/stent
Patient presented with blood loss anemia due to venous stasis of the his right upper extremity AV fistula in the context of home Eliquis. He received 1 unit of packed red blood cell during his hospitalization. Plavix and DOAC were initially held
but resumed with hemoglobin stable. Vascular was consulted and he had a fistulogram on 05/18 with balloon/stent demonstrating a patent fistula. Prior to discharge he received dialysis via right upper extremity AV fistula without any complications.
He will be discharged home today to follow-up with vascular as an outpatient.
-Paroxysmal Atrial Fibrillation/Atrial Flutter
Patient with a history of atrial fibrillation for which she takes metoprolol XL and Eliquis. L&D hospital stay, he had runs of atrial flutter and RVR. Cardiology was consulted. His metoprolol XL was increased to twice daily. After medication
adjustment, patient remained in normal sinus rhythm until discharge. He will be continued on metoprolol XL twice daily.
Medication changes
Amlodipine increased to 5 mg p.o. twice daily for optimal blood pressure control
Cyclobenzaprine 10 mg twice daily as needed for lower back spasm
Metoprolol succinate increased to 25 mg for rate control
Discharge Plan
-
Patient Disposition: Residential/SNF
Discharge Diagnosis/Procedures: Enterococcus faecalis bacteremia
Vertebral osteomyelitis/discitis at L1-L2
Bleeding from RUE AVG s/p fistulogram 05/18 with balloon/stent
Condition: Fair
Diet: 2 Gram Sodium
Activity: With assistance
Blood Work: Follow weekly CBC/diff, CMP, ESR, CRP
Activity Restrictions/Additional Instructions:
1. Continue ampicillin 2g IV q12 through 06/16/2025
2. Continue ceftriaxone 2g IV q12 through 06/16/2025
3. Follow weekly CBC/diff, CMP ESR, CRP
Wound Care Instructions
R buttock: clean with soap and water, silicone border foam change q other day and prn drainage.
R heel: Clean with soap and water, Silicone border foam (check daily for any changes) change q 2-3 days and prn soilage.
Offloading heel boots when in bed
Air mattress or air overlay if has access to hospital bed
Air chair cushion when sitting, can take upon discharge
Follow up with boat hoist operator helper
Stand Alone Forms: Vascular Surg Discharge Instr
Referrals:
Marty Mcneil, DO [Active, Infectious Diseases]
Referral Note: Call office for appt.
UNKNOWN - PT DOES,NOT KNOW [Family Provider]
Mar Hlems CRNP [Specified Professional Personl, Vascular Surgery] - 06/11/25 1:30 pm
Referral Note: Vascular surgery office follow-up
Additional Discharge Medication Instructions: Amlodipine increased to 5 mg p.o. twice daily for optimal blood pressure control
Cyclobenzaprine 10 mg twice daily as needed for lower back spasm
PO hydromorphone 2mg Q8PRN for moderate - severe breakthrough pain (1 week supply Rx provided)
Use tylenol 975 mg Q6H PRN for mild pain
Metoprolol succinate increased to 25 mg for rate control
Prescriptions:
New
cyclobenzaprine 10 mg Tablet
10 mg PO BIDPRN PRN (Reason: spasm) Qty: 30 0RF
amlodipine 5 mg Tablet
5 mg PO BID Qty: 30 0RF
metoprolol succinate 25 mg Tablet Extended Release 24 Hr
25 mg PO BID Qty: 30 0RF
hydromorphone 2 mg Tablet
2 mg PO Q8H PRN (Reason: Moderate-severe breakthrough pain) 7 Days Qty: 24 0RF
Continued
melatonin 5 MG tablet
5 mg PO HSPRN PRN (Reason: sleep)
atorvastatin 80 MG tablet
80 mg PO HS
sertraline 100 mg Tablet
100 mg PO BID
clopidogrel [Plavix] 75 mg Tablet
75 mg PO DAILY
Nephro-Michelle 0.8 mg Tablet
1 tab PO MOWEFR
coQ10 (ubiquinol) 200 mg Capsule
200 mg PO DAILY
Ozempic 0.25 mg or 0.5 mg (2 mg/3 mL) Pen Injector
0.25 mg SC GRIMM
Eliquis 5 mg Tablet
5 mg PO BID Qty: 60 0RF
acetaminophen 325 mg Tablet
650 mg PO Q4HPRN PRN (Reason: mild pain/fever >100)
albuterol sulfate 90 mcg/actuation Hfa Aerosol Inhaler
2 puff INHALATION R Q4HPRN PRN (Reason: sob)
methylphenidate HCl 10 mg tablet
30 mg PO DAILY
ascorbic acid (vitamin C) [Vitamin C] 500 mg Tablet
500 mg PO DAILY
ezetimibe [Zetia] 10 mg Tablet
10 mg PO DAILY Qty: 0 0RF
loperamide 2 mg Tablet
2 mg PO TIDPRN PRN (Reason: diarrhea)
calcium acetate
667 mg PO TIDWMEAL
polyethylene glycol 3350 17 gram Powder In Packet
17 g PO DAILYPRN PRN (Reason: constipation) Qty: 0 0RF
midodrine 5 mg Tablet
5 mg PO Q4HPRN PRN (Reason: SBP<100) Qty: 0 0RF
sennosides [senna] 8.6 mg Tablet
17.2 mg PO HS
famotidine 10 mg Tablet
10 mg PO DAILY
magnesium hydroxide [Milk of Magnesia] 400 mg/5 mL Suspension
400 mg PO DAILY PRN (Reason: constipation )
Rx Instructions:
if no BM in 3 days
bisacodyl [Dulcolax (bisacodyl)] 10 mg Suppository
10 mg CA DAILY PRN (Reason: constipation)
Rx Instructions:
Administer if no BM after MOM was administered
docusate sodium [Colace] 100 mg Capsule
100 mg PO BID
mupirocin 2 % Ointment
1 applic TOPICAL DAILY
Rx Instructions:
Apply on L elbow and L foot every dayshift for wounds
Enema Disposable
1 enema CA DAILY
Rx Instructions:
Administer 1 applicatio rectally for constipation prn if suppository is ineffective
lorazepam 1 mg tablet
1 mg PO DAILY
Rx Instructions:
for 14 days, End date 05/04/2025
Held
aripiprazole [Abilify] 2 mg Tablet
2 mg PO DAILY
Hold Instructions: Hold till follow up with PCP
Discontinued
amlodipine 2.5 mg Tablet
2.5 mg PO BID Qty: 60 2RF
metoprolol succinate 25 mg tablet extended release 24 hr
12.5 mg PO DAILY
oxycodone 5 mg tablet
5 mg PO QIDPRN PRN (Reason: back pain )
Discharge Orders:
Discharge Patient (As Directed); Ordered 05/20/25
Ordered By: Amanda Larios
Discharge Date and Time
Discharge Date/Time: 05/20/25 19:58
Print Language: SWISS

Documented by User: Tai Gan DO 05/21/25 13:41
Discharge Summary
Discharge Data
Date of Admission: 05/03/25
Date of Discharge: 05/20/25
Total time spent discharging patient (in min): 37
Discharge Plan
-
Patient Disposition: Residential/SNF
Discharge Diagnosis/Procedures: Enterococcus faecalis bacteremia
Vertebral osteomyelitis/discitis at L1-L2
Bleeding from RUE AVG s/p fistulogram 05/18 with balloon/stent
Condition: Fair
Diet: 2 Gram Sodium
Activity: With assistance
Blood Work: Follow weekly CBC/diff, CMP, ESR, CRP
Activity Restrictions/Additional Instructions:
1. Continue ampicillin 2g IV q12 through 06/16/2025
2. Continue ceftriaxone 2g IV q12 through 06/16/2025
3. Follow weekly CBC/diff, CMP ESR, CRP
Wound Care Instructions
R buttock: clean with soap and water, silicone border foam change q other day and prn drainage.
R heel: Clean with soap and water, Silicone border foam (check daily for any changes) change q 2-3 days and prn soilage.
Offloading heel boots when in bed
Air mattress or air overlay if has access to hospital bed
Air chair cushion when sitting, can take upon discharge
Follow up with boat hoist operator helper
Stand Alone Forms: Vascular Surg Discharge Instr
Referrals:
Marty Mcneil, [Active, Infectious Diseases]
Referral Note: Call office for appt.
UNKNOWN - PT DOES,NOT KNOW [Family Provider]
Mar Helms CRNP [Specified Professional Personl, Vascular Surgery] - 06/11/25 1:30 pm
Referral Note: Vascular surgery office follow-up
Additional Discharge Medication Instructions: Amlodipine increased to 5 mg p.o. twice daily for optimal blood pressure control
Cyclobenzaprine 10 mg twice daily as needed for lower back spasm
PO hydromorphone 2mg Q8PRN for moderate - severe breakthrough pain (1 week supply Rx provided)
Use tylenol 975 mg Q6H PRN for mild pain
Metoprolol succinate increased to 25 mg for rate control
Prescriptions:
New
cyclobenzaprine 10 mg Tablet
10 mg PO BIDPRN PRN (Reason: spasm) Qty: 30 0RF
amlodipine 5 mg Tablet
5 mg PO BID Qty: 30 0RF
metoprolol succinate 25 mg Tablet Extended Release 24 Hr
25 mg PO BID Qty: 30 0RF
hydromorphone 2 mg Tablet
2 mg PO Q8H PRN (Reason: Moderate-severe breakthrough pain) 7 Days Qty: 24 0RF
Continued
melatonin 5 MG tablet
5 mg PO HSPRN PRN (Reason: sleep)
atorvastatin 80 MG tablet
80 mg PO HS
sertraline 100 mg Tablet
100 mg PO BID
clopidogrel [Plavix] 75 mg Tablet
75 mg PO DAILY
Nephro-Michelle 0.8 mg Tablet
1 tab PO MOWEFR
coQ10 (ubiquinol) 200 mg Capsule
200 mg PO DAILY
Ozempic 0.25 mg or 0.5 mg (2 mg/3 mL) Pen Injector
0.25 mg SC GRIMM
Eliquis 5 mg Tablet
5 mg PO BID Qty: 60 0RF
acetaminophen 325 mg Tablet
650 mg PO Q4HPRN PRN (Reason: mild pain/fever >100)
albuterol sulfate 90 mcg/actuation Hfa Aerosol Inhaler
2 puff INHALATION R Q4HPRN PRN (Reason: sob)
methylphenidate HCl 10 mg tablet
30 mg PO DAILY
ascorbic acid (vitamin C) [Vitamin C] 500 mg Tablet
500 mg PO DAILY
ezetimibe [Zetia] 10 mg Tablet
10 mg PO DAILY Qty: 0 0RF
loperamide 2 mg Tablet
2 mg PO TIDPRN PRN (Reason: diarrhea)
calcium acetate
667 mg PO TIDWMEAL
polyethylene glycol 3350 17 gram Powder In Packet
17 g PO DAILYPRN PRN (Reason: constipation) Qty: 0 0RF
midodrine 5 mg Tablet
5 mg PO Q4HPRN PRN (Reason: SBP<100) Qty: 0 0RF
sennosides [senna] 8.6 mg Tablet
17.2 mg PO HS
famotidine 10 mg Tablet
10 mg PO DAILY
magnesium hydroxide [Milk of Magnesia] 400 mg/5 mL Suspension
400 mg PO DAILY PRN (Reason: constipation )
Rx Instructions:
if no BM in 3 days
bisacodyl [Dulcolax (bisacodyl)] 10 mg Suppository
10 mg CA DAILY PRN (Reason: constipation)
Rx Instructions:
Administer if no BM after MOM was administered
docusate sodium [Colace] 100 mg Capsule
100 mg PO BID
mupirocin 2 % Ointment
1 applic TOPICAL DAILY
Rx Instructions:
Apply on L elbow and L foot every dayshift for wounds
Enema Disposable
1 enema CA DAILY
Rx Instructions:
Administer 1 applicatio rectally for constipation prn if suppository is ineffective
lorazepam 1 mg tablet
1 mg PO DAILY
Rx Instructions:
for 14 days, End date 05/04/2025
Held
aripiprazole [Abilify] 2 mg Tablet
2 mg PO DAILY
Hold Instructions: Hold till follow up with PCP
Discontinued
amlodipine 2.5 mg Tablet
2.5 mg PO BID Qty: 60 2RF
metoprolol succinate 25 mg tablet extended release 24 hr
12.5 mg PO DAILY
oxycodone 5 mg tablet
5 mg PO QIDPRN PRN (Reason: back pain )
Discharge Orders:
Discharge Patient (As Directed); Ordered 05/20/25
Ordered By: Amanda Larios
Discharge Date and Time
Discharge Date/Time: 05/20/25 19:58
Print Language: SWISS
[2025-05-20 17:19] LABS: Glucose - Point of Care 161 mg/dl (70-99)
[2025-05-20] MEDS: NOVOLOG FLEXPEN-LOW RESISTANCE 1 UNITS SC (17:21)
[2025-05-20 19:51] VITALS: BP 163/75
== END 2025-05-20 19:58 | DRG 252 ==
LOC: 3 WEST ACU 14:52
PROVIDERS: Internal Medicine; Internal Medicine Nephrology; Nurse Practitioner; Nurse Practitioner Family; Physician Assistant; Radiology Vascular & Interventional Radiology; Specialist; Student in an Organized Health Care Education/Training Program; Surgery Vascular Surgery; ADMITTING PHYSICIAN Internal Medicine; ATTENDING PHYSICIAN Internal Medicine; CONSULT PHYSICIAN Internal Medicine Infectious Disease; CONSULT PHYSICIAN Nuclear Medicine Nuclear Cardiology; EMERGENCY PHYSICIAN Emergency Medicine; OTHER PHYSICIAN Neurological Surgery; OTHER PHYSICIAN Specialist; OTHER PHYSICIAN Surgery Vascular Surgery
PROC: B5181ZA Fluoroscopy of Superior Vena Cava using Low Osmolar Contrast, Guidance (ICD-10-PCS; 2025-05-03)
PROC: 02H633Z Insertion of Infusion Device into Right Atrium, Percutaneous Approach (ICD-10-PCS; 2025-05-03)
PROC: 5A1D70Z Performance of Urinary Filtration, Intermittent, Less than 6 Hours Per Day (ICD-10-PCS; 2025-05-03)
PROC: 30233N1 Transfusion of Nonautologous Red Blood Cells into Peripheral Vein, Percutaneous Approach (ICD-10-PCS; 2025-05-04)
PROC: 057D3DZ Dilation of Right Cephalic Vein with Intraluminal Device, Percutaneous Approach (ICD-10-PCS; 2025-05-18)
PROC: B51W1ZZ Fluoroscopy of Dialysis Shunt/Fistula using Low Osmolar Contrast (ICD-10-PCS; 2025-05-18)
PROC: B51N1ZZ Fluoroscopy of Left Upper Extremity Veins using Low Osmolar Contrast (ICD-10-PCS; 2025-05-18)
PROC: 05793ZZ Dilation of Right Brachial Vein, Percutaneous Approach (ICD-10-PCS; 2025-05-18)
PROC: 02HV33Z Insertion of Infusion Device into Superior Vena Cava, Percutaneous Approach (ICD-10-PCS; 2025-05-19)
DX: T82.838A Hemorrhage due to vascular prosthetic devices, implants and grafts, initial encounter (principal); A41.81 Sepsis due to Enterococcus; N18.6 End stage renal disease; I50.32 Chronic diastolic (congestive) heart failure; I13.2 Hypertensive heart and chronic kidney disease with heart failure and with stage 5 chronic kidney disease, or end stage renal disease; E87.20 Acidosis, unspecified; N25.81 Secondary hyperparathyroidism of renal origin; I48.92 Unspecified atrial flutter; M46.26 Osteomyelitis of vertebra, lumbar region; D62 Acute posthemorrhagic anemia; B37.0 Candidal stomatitis; D68.32 Hemorrhagic disorder due to extrinsic circulating anticoagulants; Y84.1 Kidney dialysis as the cause of abnormal reaction of the patient, or of later complication, without mention of misadventure at the time of the procedure; D63.1 Anemia in chronic kidney disease; I16.0 Hypertensive urgency; G89.4 Chronic pain syndrome; K59.00 Constipation, unspecified; F17.200 Nicotine dependence, unspecified, uncomplicated; E11.22 Type 2 diabetes mellitus with diabetic chronic kidney disease; E11.42 Type 2 diabetes mellitus with diabetic polyneuropathy; E78.00 Pure hypercholesterolemia, unspecified; G47.33 Obstructive sleep apnea (adult) (pediatric); D72.829 Elevated white blood cell count, unspecified; I25.10 Atherosclerotic heart disease of native coronary artery without angina pectoris; E11.51 Type 2 diabetes mellitus with diabetic peripheral angiopathy without gangrene; J44.9 Chronic obstructive pulmonary disease, unspecified; E66.9 Obesity, unspecified; I48.0 Paroxysmal atrial fibrillation; M62.830 Muscle spasm of back; E83.39 Other disorders of phosphorus metabolism; E87.5 Hyperkalemia; I44.1 Atrioventricular block, second degree; K21.9 Gastro-esophageal reflux disease without esophagitis; F32.A Depression, unspecified; M10.9 Gout, unspecified; I27.20 Pulmonary hypertension, unspecified; F90.9 Attention-deficit hyperactivity disorder, unspecified type; N40.0 Benign prostatic hyperplasia without lower urinary tract symptoms; R26.2 Difficulty in walking, not elsewhere classified; M19.90 Unspecified osteoarthritis, unspecified site; L89.316 Pressure-induced deep tissue damage of right buttock; L89.616 Pressure-induced deep tissue damage of right heel; M46.46 Discitis, unspecified, lumbar region; I45.10 Unspecified right bundle-branch block; Z96.653 Presence of artificial knee joint, bilateral; Z79.01 Long term (current) use of anticoagulants; Z79.02 Long term (current) use of antithrombotics/antiplatelets; Z99.2 Dependence on renal dialysis; I25.2 Old myocardial infarction; Z86.73 Personal history of transient ischemic attack (TIA), and cerebral infarction without residual deficits; Z79.85 Long-term (current) use of injectable non-insulin antidiabetic drugs; Z91.041 Radiographic dye allergy status; Z91.040 Latex allergy status; Z88.5 Allergy status to narcotic agent; Z95.1 Presence of aortocoronary bypass graft; Z11.52 Encounter for screening for COVID-19; Z85.6 Personal history of leukemia; Z79.4 Long term (current) use of insulin
CPT/HCPCS: 36556; 36573; 36902; 36908; 72148; 74022; 74176; 76937; 77001; 80048; 80051; 80053; 81003; 81015; 82962; 83605; 83735; 85014; 85018; 85025; 85027; 85610; 85652; 85730; 86140; 86850; 86900; 86901; 86920; 87040; 87070; 87077; 87154; 87186; 87205; 87811; 93005; 93306; 93990; 96374; 97110; 97116; 97163; 97167; 97530; 97535; 99285; C1752; G0257; J2916; P9016; P9047; Q5106; Q9950; Q9967

== ENCOUNTER 2025-05-25 05:13 | Emergency (ER) | payer MEDICARE, OTHER, SELFPAY ==
[2025-05-25 05:34] VITALS: BMI 27.2
[2025-05-25 05:37] VITALS: BP 168/94
--- NOTE | 2025-05-25 06:24 | VATNOTE ---
CALLED TO EMR TO ASSESS BLOODY PICC. PT WITH SL 5FR L PICC. NO STANDARD DRSG IN PLACE. LUE WRAPPED WITH ABD AND GAUZE. PICC WITH MASSIVE GELATINOUS CLOT AT INSERTION SITE. PICC RD PER PROTOCOL WITH QUICK CLOT AND GAUZE SINCE PT WILL BE RETURNING TO
REHAB FACILITY AND IS ON TWO BLOOD THINNERS. NO ACTIVE BLEEDING OR OOZING NOTED AT THIS TIME. PICC FLUSHED WELL AND HAS A GOOD BR.PCN AWARE OF INTERVENTION AND OUTCOME.
--- NOTE | 2025-05-25 06:34 | ED.GENMED ---
History of Present Illness
General
Chief Complaint: Catheter/Tube Problem
Source: patient
Exam Limitations: none
Time Seen by Provider: 05/25/25 06:13
Nursing documentation reviewed up to this point in time: agreed with
History of Present Illness
History of Present Illness:
69 y/o M with h/o ESRD on HD m/w/f RUE fistula, PAF on eliquis, cad
here with bleeding from PICC line on LUE this morning noticed around 2-3 am when he woke up with blood on his sheets
the staff there redressed it but EMS told RN there was blood on the gauze but they did not change the dressing
whne the dressing was removed, there was a large clot at the site; the clot was removed and the IV team placed quick clot dressing and it since has been stable
pt's only complaint is back pain secondary to vertebral osteo/discitis for which he is on abx
pt receives dialudid severa times a day for pain
he has no new complaints
no weakness
no vomiting
no lightheadedness
of note, pt was just her 05/03-05/20 after having bleeding from RUE fistula and received a blood transfusion
Past History
Past History
ED Past Medical History: Arrthythmia (PAF), CAD, Cancer (CML), COPD, CVA, HTN, Hypercholesterolemia, NIDDM, PA, Renal failure (on dialysis), Other (Peripheral artery disease, left femoropopliteal bypass), Other (subdural hematoma) and Other (R foot
ulcer; FINESSE; obesity)
ED Past Surgical History: Cardiac (left fempop bypass) and Other (L femoral endarterectomy, popliteal angioplasty, dialysis graft left upper arm)
Social History
Tobacco: Smoker
Alcohol: None
Drug: Marijuana
Personal:
Living: with family
Employment: Disabled
Family History
Family History: Diabetes and Other (reviewed and non-contributory)
Review of Systems
Review of Systems
Allergies reviewed?: Yes
All Other Systems: Not applicable
Phy Exam
Physical Exam
Physical Exam:
GENERAL: Alert , in no apparent distress, mildly uncomfortable with movement
EYE: pupils equal and reactive
NECK: Supple
ENT: o/p clr, mmm.
CARDIAC: Regular rate and rhythm .
2+ LUE radial pulse
R AV fistula with palpable thrill
LUNGS: Clear breath sounds bilaterally, no acute respiratory distress, no wheezes/rales/rhonchi
ABDOMEN: Soft, without focal tenderness, no r/g, no cvat, normal bowel sounds
NEUROLOGICAL: Alert and oriented, no focal neuro deficits
SKIN: Warm and dry, skin intact.
MUSCULOSKELETAL: RUE visula stable
L arm dressing in tact; no bleeding, nontender
dsital NV exam intact; normal pulse;
back pain with movement
PSYCH: Normal and appropriate interaction.
Course
Orders/Labs/Results
Orders:
Orders
05/25/25 06:27
HYDROmorphone [Dilaudid] 1 mg PO NOW STA
05/25/25 06:44
Complete Blood Count/With Diff Urgent
Abnormal Lab Results
05/25/25
06:44
WBC 17.6 H 10^3/uL
(4.8-10.8)
RBC 3.45 L 10^6/uL
(4.70-6.10)
Hgb 10.7 L g/dL
(13.0-18.0)
Hct 32.9 L %
(39.0-52.0)
MCV 95.4 H fL
(80.0-94.0)
MCHC 32.5 L g/dL
(33.0-37.0)
RDW 15.7 H %
(11.5-14.5)
Abs Immat Gran (auto) 0.2 H 10^3/uL
(0-0.05)
Absolute Neuts (auto) 13.0 H 10^3/uL
(1.4-6.5)
Absolute Monos (auto) 1.5 H 10^3/uL
(0.1-0.6)
Absolute Eos (auto) 1.3 H 10^3/uL
(0-0.7)
Immature Gran % 0.9 H %
(0-0.5)
Lymphocytes % 8.7 L %
(20.5-51.1)
Eosinophils % 7.3 H %
(0-6)
05/25/25 06:44
Vital Signs
Initial and Last Documented VS:
Initial Vital Signs
Temp Pulse Resp Pulse Ox
36.9 C 81 10 100
05/25/25 05:24 05/25/25 05:24 05/25/25 05:24 05/25/25 05:24
Last Documented Vital Signs
Temp Pulse Resp BP Pulse Ox
36.9 C 83 20 165/57 100
05/25/25 05:24 05/25/25 10:37 05/25/25 10:37 05/25/25 10:00 05/25/25 10:37
MDM/Problems Addressed
Differential Diagnosis Includes:
PICC line bleeding
MDM/Problems Addressed:
69 y/o M
bleeding from picc site this am
large clot at the stie which was removed
quick clot dressing applied to site by IV team prior to my arrival
no residual bleeding after obs 1 hour
nontender at the site
normal distal nv exam
cbc stable hg
stable vitals
appreciate leukocytosis, history of and on abx
transfer back to facility
d/w dr. solares
*Pulse Oximetry
SaO2: 97
Oxygen Mode of Delivery: Room air
Patient hypoxic: no (100)
*Critical Care Note
Total Time (30-74mins, 75-104mins- exclusive of procedures): Not Applicable
ED Attending Note
-
Portions of this chart may have been created with voice recognition software.� Occasional wrong word or��sound alike� substitutions may have occurred due to the inherent limitations of voice recognition software.
Discharge Plan
Departure
Patient Disposition: Home (Routine Discharge)
Date of Disposition: 05/25/25
Time of Disposition: :29
Patient with high blood pressure during this ER visit?: Yes
Condition: Fair
Covid-19: Not Applicable
Discharge Problem:
Bleeding from PICC line
Prescriptions:
No Action
melatonin 5 MG tablet
5 mg PO HSPRN PRN (Reason: sleep)
atorvastatin 80 MG tablet
80 mg PO HS
sertraline 100 mg Tablet
100 mg PO BID
clopidogrel [Plavix] 75 mg Tablet
75 mg PO DAILY
Nephro-Michelle 0.8 mg Tablet
1 tab PO MOWEFR
coQ10 (ubiquinol) 200 mg Capsule
200 mg PO DAILY
Ozempic 0.25 mg or 0.5 mg (2 mg/3 mL) Pen Injector
0.25 mg SC GRIMM
Eliquis 5 mg Tablet
5 mg PO BID Qty: 60 0RF
acetaminophen 325 mg Tablet
650 mg PO Q4HPRN PRN (Reason: mild pain/fever >100)
albuterol sulfate 90 mcg/actuation Hfa Aerosol Inhaler
2 puff INHALATION R Q4HPRN PRN (Reason: sob)
methylphenidate HCl 10 mg tablet
30 mg PO DAILY
ascorbic acid (vitamin C) [Vitamin C] 500 mg Tablet
500 mg PO DAILY
ezetimibe [Zetia] 10 mg Tablet
10 mg PO DAILY Qty: 0 0RF
loperamide 2 mg Tablet
2 mg PO TIDPRN PRN (Reason: diarrhea)
aripiprazole [Abilify] 2 mg Tablet
2 mg PO DAILY
calcium acetate
667 mg PO TIDWMEAL
polyethylene glycol 3350 17 gram Powder In Packet
17 g PO DAILYPRN PRN (Reason: constipation) Qty: 0 0RF
midodrine 5 mg Tablet
5 mg PO Q4HPRN PRN (Reason: SBP<100) Qty: 0 0RF
sennosides [senna] 8.6 mg Tablet
17.2 mg PO HS
famotidine 10 mg Tablet
10 mg PO DAILY
magnesium hydroxide [Milk of Magnesia] 400 mg/5 mL Suspension
400 mg PO DAILY PRN (Reason: constipation )
Rx Instructions:
if no BM in 3 days
bisacodyl [Dulcolax (bisacodyl)] 10 mg Suppository
10 mg [place] DAILY PRN (Reason: constipation)
Rx Instructions:
Administer if no BM after MOM was administered
docusate sodium [Colace] 100 mg Capsule
100 mg PO BID
mupirocin 2 % Ointment
1 applic TOPICAL DAILY
Rx Instructions:
Apply on L elbow and L foot every dayshift for wounds
Enema Disposable
1 enema [place] DAILY
Rx Instructions:
Administer 1 applicatio rectally for constipation prn if suppository is ineffective
lorazepam 1 mg tablet
1 mg PO DAILY
Rx Instructions:
for 14 days, End date 05/04/2025
cyclobenzaprine 10 mg Tablet
10 mg PO BIDPRN PRN (Reason: spasm) Qty: 30 0RF
amlodipine 5 mg Tablet
5 mg PO BID Qty: 30 0RF
metoprolol succinate 25 mg Tablet Extended Release 24 Hr
25 mg PO BID Qty: 30 0RF
hydromorphone 2 mg Tablet
2 mg PO Q8H PRN (Reason: Moderate-severe breakthrough pain) 7 Days Qty: 24 0RF
Referrals:
Placido Lora Jr., DO [Family Provider, Internal Medicine]
Activity Restrictions/Additional Instructions:
The dressing was changed and a quick clot was applied to the site by the IV team. You should leave this in place for 24 hours and then the dressing does need to be changed. We checked a hemoglobin which showed his hemoglobin is 10.7. He was given
a dose of oral Dilaudid for his chronic back pain. The PICC line flushed well. You may use it
Interventions
Interventions:
*Risk Screen - Suicide Last Done: 05/25/25 05:24
*General Assessment Last Done: 05/25/25 05:24
*Neglect/Abuse Screening Last Done: 05/25/25 05:24
*ED- Fall Risk Assessment Last Done: 05/25/25 05:34
*ED COVID-19 Vaccine History Last Done: 05/25/25 05:34
*Nursing Disposition Last Done: 05/25/25 11:37
TM-Zaukzd-Lktnrpcvqg Assessment Last Done: 05/25/25 05:34
ED-Male Genitourinary Assessment Last Done: 05/25/25 05:34
Discharge Date and Time
Discharge Date/Time: 05/25/25 11:46
Print Language: CHINESE
[2025-05-25] MEDS: DILAUDID 1 MG PO (06:43)
[2025-05-25 06:58] LABS: Hematocrit 32.9 % (39.0-52.0); Hemoglobin 10.7 g/dL (13.0-18.0); Mean Corp Hgb Conc. 32.5 g/dL (33.0-37.0); Mean Corpuscular Volume 95.4 fL (80.0-94.0); Nucleated Red Blood Cells % 0 % (-); Platelet Count 359 10^3/uL (130-400); Red Cell Dist. Width 15.7 % (11.5-14.5)
[2025-05-25 09:00] VITALS: BP 163/69
[2025-05-25 10:00] VITALS: BP 165/57
== END 2025-05-25 11:46 | disposition home or self-care (01) ==
LOC: EMR 05:13
PROVIDERS: Physician Assistant; EMERGENCY PHYSICIAN Emergency Medicine; FAMILY PHYSICIAN Family Medicine
DX: T82.838A Hemorrhage due to vascular prosthetic devices, implants and grafts, initial encounter (principal); Y83.8 Other surgical procedures as the cause of abnormal reaction of the patient, or of later complication, without mention of misadventure at the time of the procedure; I12.0 Hypertensive chronic kidney disease with stage 5 chronic kidney disease or end stage renal disease; N18.6 End stage renal disease; Z99.2 Dependence on renal dialysis; I48.0 Paroxysmal atrial fibrillation; I25.10 Atherosclerotic heart disease of native coronary artery without angina pectoris; M54.9 Dorsalgia, unspecified; M46.40 Discitis, unspecified, site unspecified; C92.10 Chronic myeloid leukemia, BCR/ABL-positive, not having achieved remission; J44.9 Chronic obstructive pulmonary disease, unspecified; E78.00 Pure hypercholesterolemia, unspecified; E11.22 Type 2 diabetes mellitus with diabetic chronic kidney disease; E11.51 Type 2 diabetes mellitus with diabetic peripheral angiopathy without gangrene; G47.33 Obstructive sleep apnea (adult) (pediatric); F17.200 Nicotine dependence, unspecified, uncomplicated; E66.9 Obesity, unspecified; I25.2 Old myocardial infarction; Z79.899 Other long term (current) drug therapy; Z79.01 Long term (current) use of anticoagulants; Z86.73 Personal history of transient ischemic attack (TIA), and cerebral infarction without residual deficits; Z88.5 Allergy status to narcotic agent; Z91.041 Radiographic dye allergy status; Z91.040 Latex allergy status
CPT/HCPCS: 99283; 85025

== ENCOUNTER 2025-05-28 01:04 | Emergency (ER) | payer MEDICARE, OTHER, SELFPAY ==
[2025-05-28 01:06] VITALS: BP 126/66
[2025-05-28 01:08] VITALS: BMI 28.1
[2025-05-28] MEDS: DILAUDID 2 MG PO (01:27)
[2025-05-28 01:34] LABS: Hematocrit 29.7 % (39.0-52.0); Hemoglobin 9.9 g/dL (13.0-18.0); Mean Corp Hgb Conc. 33.3 g/dL (33.0-37.0); Mean Corpuscular Volume 94.6 fL (80.0-94.0); Nucleated Red Blood Cells % 0 % (-); Platelet Count 295 10^3/uL (130-400); Red Cell Dist. Width 15.3 % (11.5-14.5)
--- NOTE | 2025-05-28 01:48 | ED.GENMED ---
History of Present Illness
General
Chief Complaint: Abnormal Lab Value
Source: patient
Time Seen by Provider: 05/28/25 01:15
History of Present Illness
History of Present Illness:
69-year-old male with past medical history of previous CVA, subdural hematoma, atrial fibrillation, CAD status post previous AR, hypertension, hyperlipidemia, CKD (dialysis Saturday, Saturday, Saturday) presenting to the emergency department for
evaluation from [place] [facility] after patient reportedly had a critical lab value with elevated creatinine. Patient received full dialysis session on Saturday. He states he feels as if he is in his usual state of health. Overall patient is unsure
as to why he was sent to the emergency department but notes that he was not given his usual pain medication today and is currently requesting this. Patient denies any fevers, chills, rigors, abdominal pain, nausea, vomiting or any other concerns
presently.
Past History
Past History
ED Past Medical History: Arrthythmia (PAF), CAD, Cancer (CML), COPD, CVA, HTN, Hypercholesterolemia, NIDDM, AR, Renal failure (on dialysis), Other (Peripheral artery disease, left femoropopliteal bypass), Other (subdural hematoma) and Other (R foot
ulcer; FINESSE; obesity)
ED Past Surgical History: Cardiac (left fempop bypass) and Other (L femoral endarterectomy, popliteal angioplasty, dialysis graft left upper arm)
Social History
Tobacco: Smoker
Alcohol: None
Drug: Marijuana
Personal:
Living: with family
Employment: Disabled
Family History
Family History: Diabetes and Other (reviewed and non-contributory)
Review of Systems
Review of Systems
All Other Systems: ROS reviewed and negative except as documented in HPI and ROS
Phy Exam
Physical Exam
Physical Exam:
GENERAL: Alert , chronically ill-appearing
EYE: conjunctiva clear
Head: Normocephalic atraumatic
NECK: Supple,
ENT: mmm.
LUNGS: no acute respiratory distress
NEUROLOGICAL: Alert and oriented
SKIN: Warm and dry, skin intact.
MUSCULOSKELETAL: well perfused. PICC line to the left upper extremity. Dressing over the right lower extremity
PSYCH: Normal and appropriate interaction.
Scores
Heart Failure Risk
Heart Failure Risk Score: Not Applicable
Heart Score for Chest Pain Patients
STEMI patient?: Not applicable
Withdrawal Assessment of Alcohol
Withdrawal Assessment Completed?: Not applicable
Course
Orders/Labs/Results
Orders:
Orders
05/28/25 01:09
Chest X-ray Portable [CR Chest Portable - 1 View] Urgent
Comment:
Reason For Exam: picc line placement
Reason Study Needs to be Portable: Other
If Reason is Other, explain: pt. w/ severe back pain
05/28/25 01:20
HYDROmorphone [Dilaudid] 2 mg PO NOW STA
05/28/25 01:23
Complete Blood Count/With Diff Urgent
Comprehensive Metabolic Panel Urgent
Abnormal Lab Results
05/28/25
01:23
WBC 17.5 H 10^3/uL
(4.8-10.8)
RBC 3.14 L 10^6/uL
(4.70-6.10)
Hgb 9.9 L g/dL
(13.0-18.0)
Hct 29.7 L %
(39.0-52.0)
MCV 94.6 H fL
(80.0-94.0)
MCH 31.5 H pg
(27.0-31.0)
RDW 15.3 H %
(11.5-14.5)
MPV 10.5 H fL
(7.4-10.4)
Abs Immat Gran (auto) 0.1 H 10^3/uL
(0-0.05)
Absolute Neuts (auto) 12.6 H 10^3/uL
(1.4-6.5)
Absolute Monos (auto) 1.8 H 10^3/uL
(0.1-0.6)
Absolute Eos (auto) 1.0 H 10^3/uL
(0-0.7)
Lymphocytes % 11.4 L %
(20.5-51.1)
Monocytes % 10.0 H %
(1.7-9.3)
Carbon Dioxide 18 L mmol/L
(22-30)
BUN 51 H mg/dl
(9-20)
Creatinine 7.2 H* mg/dL
(0.7-1.3)
Glucose 161 H mg/dl
(70-99)
Alkaline Phosphatase 145 H U/L
(38-126)
05/28/25 01:23
05/28/25 01:23
Vital Signs
Initial and Last Documented VS:
Initial Vital Signs
Temp Pulse Resp BP Pulse Ox
98.1 F 88 18 126/66 100
05/28/25 01:06 05/28/25 01:06 05/28/25 01:06 05/28/25 01:06 05/28/25 01:06
Last Documented Vital Signs
Temp Pulse Resp BP Pulse Ox
98.1 F 85 13 126/66 100
05/28/25 01:06 05/28/25 02:10 05/28/25 02:10 05/28/25 01:06 05/28/25 02:10
MDM/Problems Addressed
Differential Diagnosis Includes:
- Known chronic kidney disease
- Electrolyte imbalance
- Volume overload
MDM/Problems Addressed:
69-year-old male sent to the emergency department with reportedly abnormal labs, EMS reported labs that were abnormal or patient's creatinine. Overall it is unclear as to why patient would be sent to the emergency department when he has known
chronic kidney disease, scheduled for dialysis later this morning and is in no acute distress. I contacted nursing staff at [facility] and they were only able to tell me that patient had a creatinine of 6.7 which was a critical value and they
reached out to their on-call physician who recommended patient come to the emergency department. Patient is hemodynamically stable, not exhibiting any signs of needing emergent dialysis. Will check labs with anticipation patient can be safely
discharged back to [facility] where he can be dialyzed later today.
Chronic conditions affecting care: Kidney disease
Acute Exacerbation and/or Progression of Chronic Illness: Kidney disease
*Pulse Oximetry
SaO2: 100
Oxygen Mode of Delivery: Room air
Patient hypoxic: no
*Critical Care Note
Total Time (30-74mins, 75-104mins- exclusive of procedures): Not Applicable
Data Reviewed
Review of Other/Old Records Reveals: Labs and Records
Patient Management
Discussion with other providers: [facility] staff
Escalation/DeEscalation of care consider admission/obs:
Patient is stable for discharge back to group home. Confirmed that patient will be dialyzed tomorrow morning. He has remained stable in the ER.
ED Attending Note
-
Portions of this chart may have been created with voice recognition software.� Occasional wrong word or��sound alike� substitutions may have occurred due to the inherent limitations of voice recognition software.
Discharge Plan
Departure
Patient Disposition: Shelter/SNF
Date of Disposition: 05/28/25
Time of Disposition: 02:33
Patient with high blood pressure during this ER visit?: No
Discharge Problem:
CKD (chronic kidney disease)
Instructions: End-stage kidney disease (kidney failure)
Prescriptions:
No Action
melatonin 5 MG tablet
5 mg PO HSPRN PRN (Reason: sleep)
atorvastatin 80 MG tablet
80 mg PO HS
sertraline 100 mg Tablet
100 mg PO BID
clopidogrel [Plavix] 75 mg Tablet
75 mg PO DAILY
Nephro-Michelle 0.8 mg Tablet
1 tab PO MOWEFR
coQ10 (ubiquinol) 200 mg Capsule
200 mg PO DAILY
Ozempic 0.25 mg or 0.5 mg (2 mg/3 mL) Pen Injector
0.25 mg SC GRIMM
Eliquis 5 mg Tablet
5 mg PO BID Qty: 60 0RF
acetaminophen 325 mg Tablet
650 mg PO Q4HPRN PRN (Reason: mild pain/fever >100)
albuterol sulfate 90 mcg/actuation Hfa Aerosol Inhaler
2 puff INHALATION R Q4HPRN PRN (Reason: sob)
methylphenidate HCl 10 mg tablet
30 mg PO DAILY
ascorbic acid (vitamin C) [Vitamin C] 500 mg Tablet
500 mg PO DAILY
ezetimibe [Zetia] 10 mg Tablet
10 mg PO DAILY Qty: 0 0RF
loperamide 2 mg Tablet
2 mg PO TIDPRN PRN (Reason: diarrhea)
aripiprazole [Abilify] 2 mg Tablet
2 mg PO DAILY
calcium acetate
667 mg PO TIDWMEAL
polyethylene glycol 3350 17 gram Powder In Packet
17 g PO DAILYPRN PRN (Reason: constipation) Qty: 0 0RF
midodrine 5 mg Tablet
5 mg PO Q4HPRN PRN (Reason: SBP<100) Qty: 0 0RF
sennosides [senna] 8.6 mg Tablet
17.2 mg PO HS
famotidine 10 mg Tablet
10 mg PO DAILY
magnesium hydroxide [Milk of Magnesia] 400 mg/5 mL Suspension
400 mg PO DAILY PRN (Reason: constipation )
Rx Instructions:
if no BM in 3 days
bisacodyl [Dulcolax (bisacodyl)] 10 mg Suppository
10 mg [place] DAILY PRN (Reason: constipation)
Rx Instructions:
Administer if no BM after MOM was administered
docusate sodium [Colace] 100 mg Capsule
100 mg PO BID
mupirocin 2 % Ointment
1 applic TOPICAL DAILY
Rx Instructions:
Apply on L elbow and L foot every dayshift for wounds
Enema Disposable
1 enema [place] DAILY
Rx Instructions:
Administer 1 applicatio rectally for constipation prn if suppository is ineffective
lorazepam 1 mg tablet
1 mg PO DAILY
Rx Instructions:
for 14 days, End date 05/04/2025
cyclobenzaprine 10 mg Tablet
10 mg PO BIDPRN PRN (Reason: spasm) Qty: 30 0RF
amlodipine 5 mg Tablet
5 mg PO BID Qty: 30 0RF
metoprolol succinate 25 mg Tablet Extended Release 24 Hr
25 mg PO BID Qty: 30 0RF
hydromorphone 2 mg Tablet
2 mg PO Q8H PRN (Reason: Moderate-severe breakthrough pain) 7 Days Qty: 24 0RF
Referrals:
UNKNOWN - PT DOES,NOT KNOW [Family Provider]
Interventions
Interventions:
*Risk Screen - Suicide Last Done: 05/28/25 01:12
*General Assessment Last Done: 05/28/25 01:12
*Neglect/Abuse Screening Last Done: 05/28/25 01:12
*ED- Fall Risk Assessment Last Done: 05/28/25 01:12
*ED COVID-19 Vaccine History Last Done: 05/28/25 01:12
Discharge Date and Time
Print Language: LIBERIAN
[2025-05-28 02:04] LABS: ALT (SGPT) 16 U/L (0-50); AST (SGOT) 21 U/L (17-59); Albumin 3.9 g/dl (3.5-5.0); Alkaline Phosphatase 145 U/L (38-126); Blood Urea Nitrogen 51 mg/dl (9-20); Calcium 8.8 mg/dl (8.4-10.2); Carbon Dioxide 18 mmol/L (22-30); Chloride 107 mmol/L (98-107); Estimated Creatinine Clearance 9 ml/min; Glucose 161 mg/dl (70-99); Potassium 4.4 mmol/L (3.5-5.1); Sodium 140 mmol/L (135-145); Total Protein 6.9 g/dl (6.3-8.2); eGFR 7.67
[2025-05-28 03:02] VITALS: BP 155/59
[2025-05-28 03:31] VITALS: BP 132/67
== END 2025-05-28 03:47 ==
LOC: EMR 01:04
PROVIDERS: EMERGENCY PHYSICIAN Student in an Organized Health Care Education/Training Program
DX: N18.9 Chronic kidney disease, unspecified (principal); I12.0 Hypertensive chronic kidney disease with stage 5 chronic kidney disease or end stage renal disease; E11.22 Type 2 diabetes mellitus with diabetic chronic kidney disease; N18.6 End stage renal disease; E11.51 Type 2 diabetes mellitus with diabetic peripheral angiopathy without gangrene; E66.9 Obesity, unspecified; E78.00 Pure hypercholesterolemia, unspecified; G47.33 Obstructive sleep apnea (adult) (pediatric); I25.10 Atherosclerotic heart disease of native coronary artery without angina pectoris; I25.2 Old myocardial infarction; I48.0 Paroxysmal atrial fibrillation; J44.9 Chronic obstructive pulmonary disease, unspecified; F17.200 Nicotine dependence, unspecified, uncomplicated; C92.10 Chronic myeloid leukemia, BCR/ABL-positive, not having achieved remission; Z45.2 Encounter for adjustment and management of vascular access device; Z83.3 Family history of diabetes mellitus; Z86.73 Personal history of transient ischemic attack (TIA), and cerebral infarction without residual deficits; Z99.2 Dependence on renal dialysis
CPT/HCPCS: 99283; 71045; 80053; 85025

== ENCOUNTER 2025-06-01 16:00 | Inpatient (IN) | payer MEDICARE, OTHER, SELFPAY ==
[2025-05-30] VITALS (10 sets, daily range): BP systolic 131–179; BP diastolic 62–120; BMI 29.0
[2025-05-30] MEDS: DILAUDID 2 MG PO ×3 (03:32→23:04)
--- NOTE | 2025-05-30 08:03 | ED.GENMED ---
History of Present Illness
General
Chief Complaint: Vascular Access Problem
Source: patient
Exam Limitations: none
Time Seen by Provider: 05/30/25 03:16
Nursing documentation reviewed up to this point in time: agreed with
History of Present Illness
History of Present Illness:
69-year-old male with history as noted presents to the ER for evaluation issue with his PICC line. Patient has a PICC line in his left upper extremity to treat osteomyelitis/discitis that he is currently in the midst of a 6-week course of
ceftriaxone 2 g twice daily, ampicillin 2 g twice daily as per infectious disease recommendation during his recent hospitalization in April; PICC was placed by interventional radiology. He has a history of ESRD and is on hemodialysis via a right
upper extremity fistula. He has been at [facility] since discharge from the hospital here. Unfortunately today they were not able to flush or push medication through his PICC line and so he was referred to the ER. He has had some aching pain
in his arm for the past few days. Has not noticed any new swelling. He denies any other acute complaints today.
Past History
Past History
ED Past Medical History: Arrthythmia (PAF), CAD, Cancer (CML), COPD, CVA, HTN, Hypercholesterolemia, NIDDM, MT, Renal failure (on dialysis), Other (Peripheral artery disease, left femoropopliteal bypass), Other (subdural hematoma) and Other (R foot
ulcer; FINESSE; obesity)
ED Past Surgical History: Cardiac (left fempop bypass) and Other (L femoral endarterectomy, popliteal angioplasty, dialysis graft left upper arm)
Social History
Tobacco: Smoker
Alcohol: None
Drug: Marijuana
Personal:
Living: with family
Employment: Disabled
Family History
Family History: Diabetes and Other (reviewed and non-contributory)
Review of Systems
Review of Systems
All Other Systems: ROS reviewed and negative except as documented in HPI and ROS
Respiratory: Denies trouble breathing
Cardiac: Denies chest pain
Musculoskeletal: Reports muscle pain; Denies edema
Phy Exam
Physical Exam
Physical Exam:
General: Awake, alert, oriented x3; no acute distress
Head: Normocephalic, atraumatic
Eyes: Conjunctiva normal
Throat: Airway intact, handling secretions
Neck: Trachea midline
Lungs: Clear to auscultation bilaterally, no wheezing, rales, rhonchi
Heart: Regular rate and rhythm, no murmurs, gallops, or rubs
Extremities: Patient has right upper extremity fistula with palpable thrill; on exam of his left upper extremity has a PICC line in place with some localized tenderness around the insertion site; there is some blood around insertion site but no
erythema or warmth and no drainage; no edema in the upper extremities, strong distal pulse in the left upper extremity
Scores
Heart Failure Risk
Heart Failure Risk Score: Not Applicable
Heart Score for Chest Pain Patients
STEMI patient?: Not applicable
Withdrawal Assessment of Alcohol
Withdrawal Assessment Completed?: Not applicable
Course
Orders/Labs/Results
Orders:
Orders
05/30/25 03:20
US Periph Venous UPPER Ext LT Urgent
Comment:
Reason For Exam: LUE pain near PICC
05/30/25 03:21
HYDROmorphone [Dilaudid] 2 mg PO NOW STA
05/30/25 04:18
Chest [CR Chest - 2 Views ] Urgent
Comment:
Reason For Exam: picc placement
05/30/25 07:27
Basic Metabolic Panel Urgent
Complete Blood Count/No Diff Urgent
05/30/25 07:58
IRAD CONSULT Urgent
Consulting Provider: Myron Grijalva
Was physician already notified: Yes
Procedure being ordered, including laterality if applicable: left tunneled catheter
Acknowledgement that appropriate orders are entered: Yes
CefTRIAXone [Rocephin] 2,000 mg IV NOW STA
05/30/25 07:59
Ampicillin 2,000 mg 0.9% Sodium Chloride 100 ml [Nss] 100 ml IV NOW
Vital Signs
Initial and Last Documented VS:
Initial Vital Signs
Temp Pulse Resp BP Pulse Ox
36.7 C 68 18 149/87 99
05/30/25 01:52 05/30/25 01:52 05/30/25 01:52 05/30/25 01:52 05/30/25 01:52
Last Documented Vital Signs
Temp Pulse Resp BP Pulse Ox
36.7 C 71 18 162/71 98
05/30/25 01:52 05/30/25 06:00 05/30/25 06:00 05/30/25 05:58 05/30/25 06:00
MDM/Problems Addressed
Differential Diagnosis Includes:
DVT, clogged PICC/clotted PICC
MDM/Problems Addressed:
69-year-old male presents with nonfunctioning left upper extremity PICC that is in place to give long-term antibiotics as described above. Vitals and exam as above. He was sent for an ultrasound of the upper extremity which did show nonocclusive
DVT left upper extremity despite his being on both Eliquis and Plavix. I discussed this finding with hematology regarding treatment of DVT�they recommended continuing his current treatment with Eliquis and Plavix and discontinue the PICC line and
patient can have follow-up study to ensure resolution of clot. We did remove the PICC line here and place a peripheral IV in order to give his antibiotics that are scheduled. Unfortunately, unable to place PICC on the right upper extremity given
his dialysis access on the right side. I discussed the case with interventional radiology and patient will likely need a tunneled catheter; unfortunately unable to perform this until tomorrow and so we will admit patient for continued antibiotic
treatment pending IR placement of replacement access tomorrow.
Acute Exacerbation and/or Progression of Chronic Illness:
Acutely hypertensive without signs or symptoms of hypertensive emergency�no indication for emergent antihypertensives
Acute Exacerbation and/or Progression of Chronic Illness: HTN
*Pulse Oximetry
SaO2: 98
Oxygen Mode of Delivery: Room air
Patient hypoxic: no (98%)
*Critical Care Note
Total Time (30-74mins, 75-104mins- exclusive of procedures): Not Applicable
Data Reviewed
Review of Other/Old Records Reveals: Labs, Records and Discharge Summary
Source: patient, records, ambulance crew and [facility] records
Patient Management
Discussion with other providers: Hospitalist (Discussed with hospitalist) and Keyliner (Discussed with hematology, discussed with interventional radiology)
Escalation/DeEscalation of care consider admission/obs:
Admission indicated
ED Attending Note
-
Portions of this chart may have been created with voice recognition software.� Occasional wrong word or��sound alike� substitutions may have occurred due to the inherent limitations of voice recognition software.
Discharge Plan
Departure
Patient Disposition: Admit
Date of Disposition: 05/30/25
Time of Disposition: 08:02
Admit to doctor: Espinosa
Presentation/result/management discussed w/ accepting MD/DO: Hospitalist
Patient with high blood pressure during this ER visit?: Yes
Discharge Problem:
Occluded PICC line, DVT (deep venous thrombosis)
Instructions: Peripherally-Inserted Central Catheter (DC)
Prescriptions:
No Action
melatonin 5 MG tablet
5 mg PO HSPRN PRN (Reason: sleep)
atorvastatin 80 MG tablet
80 mg PO HS
sertraline 100 mg Tablet
100 mg PO BID
clopidogrel [Plavix] 75 mg Tablet
75 mg PO DAILY
Nephro-Michelle 0.8 mg Tablet
1 tab PO MOWEFR
coQ10 (ubiquinol) 200 mg Capsule
200 mg PO DAILY
Ozempic 0.25 mg or 0.5 mg (2 mg/3 mL) Pen Injector
0.25 mg SC GRIMM
Eliquis 5 mg Tablet
5 mg PO BID Qty: 60 0RF
acetaminophen 325 mg Tablet
650 mg PO Q4HPRN PRN (Reason: mild pain/fever >100)
albuterol sulfate 90 mcg/actuation Hfa Aerosol Inhaler
2 puff INHALATION R Q4HPRN PRN (Reason: sob)
methylphenidate HCl 10 mg tablet
30 mg PO DAILY
ascorbic acid (vitamin C) [Vitamin C] 500 mg Tablet
500 mg PO DAILY
ezetimibe [Zetia] 10 mg Tablet
10 mg PO DAILY Qty: 0 0RF
loperamide 2 mg Tablet
2 mg PO TIDPRN PRN (Reason: diarrhea)
aripiprazole [Abilify] 2 mg Tablet
2 mg PO DAILY
calcium acetate
667 mg PO TIDWMEAL
polyethylene glycol 3350 17 gram Powder In Packet
17 g PO DAILYPRN PRN (Reason: constipation) Qty: 0 0RF
midodrine 5 mg Tablet
5 mg PO Q4HPRN PRN (Reason: SBP<100) Qty: 0 0RF
sennosides [senna] 8.6 mg Tablet
17.2 mg PO HS
famotidine 10 mg Tablet
10 mg PO DAILY
magnesium hydroxide [Milk of Magnesia] 400 mg/5 mL Suspension
400 mg PO DAILY PRN (Reason: constipation )
Rx Instructions:
if no BM in 3 days
bisacodyl [Dulcolax (bisacodyl)] 10 mg Suppository
10 mg FL DAILY PRN (Reason: constipation)
Rx Instructions:
Administer if no BM after MOM was administered
docusate sodium [Colace] 100 mg Capsule
100 mg PO BID
mupirocin 2 % Ointment
1 applic TOPICAL DAILY
Rx Instructions:
Apply on L elbow and L foot every dayshift for wounds
Enema Disposable
1 enema FL DAILY
Rx Instructions:
Administer 1 applicatio rectally for constipation prn if suppository is ineffective
lorazepam 1 mg tablet
1 mg PO DAILY
Rx Instructions:
for 14 days, End date 06/04/2025
amlodipine 5 mg Tablet
5 mg PO BID Qty: 30 0RF
hydromorphone 2 mg Tablet
2 mg PO Q8H PRN (Reason: Moderate-severe breakthrough pain) 7 Days Qty: 24 0RF
Rx Instructions:
end date 05/31/2025
ampicillin sodium 2 gram Recon Soln
2 g IV Q12H
Rx Instructions:
end 06/17/2025
ceftazidime 2 gram Recon Soln
2 g IV Q12H
cyclobenzaprine 10 mg tablet
10 mg PO [id number] PRN (Reason: spasm)
metoprolol succinate 25 mg tablet extended release 24 hr
25 mg PO DAILY
Referrals:
Placido Lora Jr., DO [Family Provider, Internal Medicine] - Call in 1-3 days for appt
Interventions
Interventions:
*Risk Screen - Suicide Last Done: 05/30/25 01:52
*General Assessment Last Done: 05/30/25 01:52
*Neglect/Abuse Screening Last Done: 05/30/25 01:52
*ED- Fall Risk Assessment Last Done: 05/30/25 01:57
*ED COVID-19 Vaccine History Last Done: 05/30/25 01:57
Discharge Date and Time
Print Language: ANGUILLAN
--- NOTE | 2025-05-30 08:49 | HPS.HSE ---
Addendum entered and electronically signed by Sierra Mccauley MD 05/30/25 12:23:
Spoke to Attending diamond merchant.
At discharge patient's med list had antibiotics listed under activity /restriction and not under medications.
Nursing at [facility] had to call [facility] and it must have been a ball sorter error where patient got ceftazidime instead of ceftriaxone
They are looking into this further.
Original Note:
Family Physician
-
Family Physician: Placido Lora Jr.
Chief Complaint
-
Vascular access problem
History of Present Illness
69-year-old man presented to the hospital with PICC line problem. He is at [facility] and they could not flush the PICC line. He has been having some aching pain for the past few days. No edema. Patient is in the middle of a 6-week course of
ceftriaxone 2 g twice daily and ampicillin 2 g twice daily per infectious disease recommendation after hospitalization in April for osteomyelitis/discitis.
Medical History
Past Medical History
Past Medical History: Reports Other
Additional Past Medical History:
Chronic back pain, diabetic neuropathy, chronic headaches, history of stroke, subdural hematoma 2019 with leg weakness, Sleep apnea, atrial fibrillation, coronary artery disease, hypertension, hyperlipidemia, history of NC, peripheral vascular
disease, GERD, fatty liver, end-stage renal disease on hemodialysis, arthritis, gout, spondylosis, diabetes, hearing impairment, chronic anemia, ADHD, anxiety and depression
Past Surgical History: Reports Other
Additional Past Surgical History:
Cardiac cath, peripheral artery disease with left foot surgery, left leg stent, benign neck tumor excision 9056, cyst excision in the lower back -3, right shoulder fracture surgery 2011, Reconstruction of left toe 2014, reconstruction of the right
toe, left hip replacement, right hip replacement, right hip revision, lumbar laminectomy, left elbow surgery with debridement, right fourth metatarsal I&D, left trigger finger surgery, CABG, spinal fusion, right fistulogram and stenting
Social History
Tobacco: Non-smoker
Alcohol: None
Drug: Former User
Personal:
Employment: Not Employed
Family History
Family History: CAD (father) and Cancer (mom Pancreatic ca)
Allergies / Home Medications
Allergies reflects when Allergies were last updated in [employer].
Home Medications with original date entered in [employer]
Allergy/Medication List:
Allergies
Allergy/AdvReac Type Severity Reaction Status Date / Time
Iodinated Contrast Media Allergy Nausea / Verified 05/28/25 01:09
Vomiting,
'panic
attack'
latex Allergy Itching Verified 05/28/25 01:09
morphine Allergy Itching Verified 05/28/25 01:09
Home Medications
melatonin 5 mg tablet 5 mg PO HSPRN PRN sleep 04/06/19
atorvastatin 80 mg tablet 80 mg PO HS High cholesterol 01/25/21
clopidogrel 75 mg tablet (Plavix) 75 mg PO DAILY Blood Clot Prevention/Tx 02/19/24
coQ10 (ubiquinol) 200 mg capsule 200 mg PO DAILY Supplement 02/19/24
semaglutide 0.25 mg or 0.5 mg (2 mg/3 mL) subcutaneous pen injector (Ozempic) 0.25 mg SC GRIMM Diabetes 02/19/24
sertraline 100 mg tablet 100 mg PO BID depression/anxiety 02/19/24
vitamin B complex-vitamin C-folic acid 0.8 mg tablet (Nephro-Michelle) 1 tab PO MOWEFR Supplement 02/19/24
apixaban 5 mg tablet (Eliquis) 5 mg PO BID #60 tabs 02/28/24
acetaminophen 325 mg tablet 650 mg PO Q4HPRN PRN mild pain/fever >100 05/25/24
albuterol sulfate 90 mcg/actuation aerosol inhaler 2 puff inhalation R Q4HPRN PRN sob 05/25/24
methylphenidate HCl 10 mg tablet 30 mg PO DAILY ADHD 07/07/24
ascorbic acid (vitamin C) 500 mg tablet (Vitamin C) 500 mg PO DAILY Supplement 11/03/24
ezetimibe 10 mg tablet (Zetia) 10 mg PO DAILY High Cholesterol #0 tabs 11/04/24
aripiprazole 2 mg tablet (Abilify) 2 mg PO DAILY Mental Health/Anxiety 03/15/25
Held on 05/20/25. Instructions: Resume on 06/17/25. Hold till you follow up with your pcp given history of TME likely secondary to polypharmacy at previous admission
loperamide 2 mg tablet 2 mg PO TIDPRN PRN diarrhea 03/15/25
calcium acetate 667 mg PO TIDWMEAL Kidney Disease 04/14/25
midodrine 5 mg tablet 5 mg PO Q4HPRN PRN SBP<100 #0 tabs 04/19/25
polyethylene glycol 3350 17 gram oral powder packet 17 g PO DAILYPRN PRN constipation #0 ea 04/19/25
Enema Disposable 1 enema DE DAILY Constipation 05/03/25
bisacodyl 10 mg rectal suppository (Dulcolax (bisacodyl)) 10 mg DE DAILY PRN constipation 05/03/25
docusate sodium 100 mg capsule (Colace) 100 mg PO BID Constipation 05/03/25
famotidine 10 mg tablet 10 mg PO DAILY Gastrointestinal Issue 05/03/25
lorazepam 1 mg tablet 1 mg PO DAILY anxiety 05/03/25
magnesium hydroxide 400 mg/5 mL oral suspension (Milk of Magnesia) 400 mg PO DAILY PRN constipation 05/03/25
mupirocin 2 % topical ointment 1 applic topical DAILY Skin Issues 05/03/25
sennosides 8.6 mg tablet (senna) 17.2 mg PO HS Constipation 05/03/25
amlodipine 5 mg tablet 5 mg PO BID #30 tabs 05/19/25
hydromorphone 2 mg tablet 2 mg PO Q8H PRN Moderate-severe breakthrough pain 1 week #24 tabs 05/20/25
ampicillin sodium 2 gram intravenous solution 2 g IV Q12H 05/30/25
ceftazidime 2 gram intravenous solution 2 g IV Q12H 05/30/25
cyclobenzaprine 10 mg tablet 10 mg PO [id number] PRN spasm 05/30/25
metoprolol succinate 25 mg tablet,extended release 24 hr 25 mg PO DAILY 05/30/25
Review of Systems
-
A 12 point ROS was completed and negative except as noted: Yes
Cardiac: Denies Chest Pain
Abdomen/GI: Denies Abdominal Pain
Musculoskeletal: Denies Joint Pain
Physical Exam
Vital Signs
Vital Signs
Temp Pulse Resp BP Pulse Ox
98.0 F 71 18 162/71 98
05/30/25 01:52 05/30/25 06:00 05/30/25 06:00 05/30/25 05:58 05/30/25 08:10
Physical Exam
General: Comfortable and Conversant
Respiratory: Clear
Cardiac: S1/S2 and Regular Rhythm
GI: Soft, Non Tender and Normal Bowel Sounds
Skin: Ulcers (right heel with discharge and skin necrosis)
Neuro: AO x 3 and Other (generalised weakness proximal muscles)
Psych: Intact Judgment/Insight
Impression/Plan
-
IMPRESSION/PLAN:
Chest x-ray-no acute changes
Echo 05/05/2025-technically difficult study. Normal LV size, systolic function. Mild concentric LVH. EF 50 to 55%. No vegetation.
Ultrasound left upper extremity PICC line with a small nonocclusive clot along the catheter in the left axillary vein.
# Nonfunctional PICC line left upper extremity with a small nonocclusive clot along the catheter in the left axillary vein.
Interventional radiology to place a tunneled PICC line catheter tomorrow
ER discussed with hematology who recommended taking PICC line out and continuing Eliquis. Picc out
Mild oozing, Nursing made aware to do pressure bandage.
Discussed with IR. No need to hold Eliquis for the procedure
Continue antibiotics via peripheral line now
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
Blood cultures since 05/05/2025-negative
Currently on ceftriaxone and ampicillin-planned antibiotics through 06/16/2025
Patient's outpatient records say that he is on ceftazidime 2 g IV every 12 hours.
Called [facility].
# Right heel ulcer-patient has protective boots on. He sees Dr. Ag from podiatry. I have a message to Dr. Ag .
# Anemia of chronic disease
Also had bleeding from right upper extremity AV graft status post fistulogram with ballooning and stent 05/18/2025. Received 1 unit of blood
# Paroxysmal atrial fibrillation/flutter-continue metoprolol and Eliquis
# History of coronary artery disease with CABG 2009 and also history of PCI LAD 2005, VG to OM 2022, PCI ISR VG to OM 2023
# Peripheral artery disease with history
Right SFA and popliteal artery angioplasty and stent 2015
Left lower extremity angioplasty and left SFA and popliteal artery angioplasty with balloon 2017
Left femoral endarterectomy with left femoropopliteal bypass 2018
Continue Plavix, statin
# End-stage renal disease on hemodialysis-consult nephrology. HD Saturday
# Systemic hypertension-on amlodipine and metoprolol
# Hyperlipidemia-continue Zetia, statin
# Chronic hypotension on midodrine
# Diabetes-on Ozempic as outpatient Sundays
Accu-Cheks and sliding scale coverage
# H/O Staph bacteremia 01/2024
# COPD-stable
# History of CVA
# Fatty liver
# History of traumatic frontal subdural hematoma-2019 with leg weakness
# Sleep apnea not on CPAP as outpatient. Pt says he was told he doesn't need.
# Depression/anxiety on as needed Lorazepam, Abilify, Sertraline
# ADHD on methylphenidate
# CML BCR/ABL positive per chart
# Secondary hyperparathyroidism secondary to end-stage renal disease
# Spinal stenosis with history of Lumbar laminectomy
# History of substance abuse in the past
# Right bundle branch block
# Ambulatory dysfunction
# History of gout
# GERD-Pepcid
# Obesity
# Ex-smoker
# DVT prophylaxis-Eliquis
# CODE STATUS
D/W FUNERAL PLANNING COUNSELOR
D/W [facility] - [place] who doesn't know the patient well. Pt couldn't get med yesterday because of PICC line occlusion. Spoke to Iraida at the nursing maintenance of way supervisor who gave me phone number for Dr.Van Feliciano who was covering the patient today. She
will take a look and get back to me but as per physician's note patient was still on ceftriaxone. Unclear if infectious disease team changed. She will take a look and get back to me.
Total time spent on the phone 25 minutes
D/W Nephrology
Dr.Justin Rosenthal is the attending
Time spent over 75 min
Part of this note was created using voice recognition system. Occasional wrong word or��sound alike� substitutions may have inadvertently occurred due to the inherent limitations of voice recognition software. If noted kindly bring it to my
attention for correction.
[2025-05-30] MEDS: ROCEPHIN 2000 MG IV ×2 (08:55→20:59)
[2025-05-30 09:21] LABS: Hematocrit 31.1 % (39.0-52.0); Hemoglobin 10.6 g/dL (13.0-18.0); Mean Corp Hgb Conc. 34.1 g/dL (33.0-37.0); Mean Corpuscular Volume 93.1 fL (80.0-94.0); Platelet Count 273 10^3/uL (130-400); Red Cell Dist. Width 14.9 % (11.5-14.5)
[2025-05-30 09:39] LABS: Blood Urea Nitrogen 61 mg/dl (9-20); Calcium 9.0 mg/dl (8.4-10.2); Carbon Dioxide 18 mmol/L (22-30); Chloride 105 mmol/L (98-107); Estimated Creatinine Clearance 9 ml/min; Glucose 106 mg/dl (70-99); Potassium 5.5 mmol/L (3.5-5.1); Sodium 138 mmol/L (135-145); eGFR 7.67
[2025-05-30] MEDS: AMPICILLIN 108 MG IV ×2 (09:53→22:31)
[2025-05-30 12:26] LABS: Glucose - Point of Care 123 mg/dl (70-99)
[2025-05-30] MEDS: NOVOLOG FLEXPEN-LOW RESISTANCE SC ×2 (12:39→17:51)
--- NOTE | 2025-05-30 12:45 | W.CON.NEPH ---
Addendum entered and electronically signed by Guido De La O MD 05/30/25 13:17:
Present note reviewed and agree with the following addendum
Recent hospitalization for AV fistula dysfunction and subsequently found to have E faecalis bacteremia and L1-L2 osteomyelitis/discitis. He underwent AV fistulogram May 18, 2025 with balloon angioplasty. He was subsequently sent to [facility]
for dialysis. He received 4 treatments at [facility], all of which were unremarkable. He was sent to the emergency room because of dysfunctional left PICC line. Nonocclusive DVT was noted and the left PICC line was removed. We are asked to
assist in 9 of his hemodialysis. He has significant pain treated with narcotics as well as muscle relaxants. His blood pressures have been stable on a multidrug regimen. He receives GITA for anemia of ESRD. Hemoglobin has been stable.
Agree with exam, right AV fistula with good thrill and bruit
Chest x-ray 05/29/2025 by my reading no acute disease
Peripheral ultrasound left arm 05/29/2025 nonocclusive axillary vein thrombus
Records from prior hospitalization reviewed
Impression
Non-functional PICC line now removed
Left axillary vein nonocclusive DVT
Recent Enterococcus faecalis bacteremia secondary to vertebral osteomyelitis/discitis L1-L2
IV antibiotics through 06-16-25
Recent AV fistula bleed, patent and functional
ESRD MW, [facility] (usually [place] [facility] [place])
A-fib
DM2
CAD/CABG
Anemia
PAD
RUE AVF recent angioplasty 05/18/25/ligated LUE AVG
Hyperphosphatemia
HTN
Diabetic neuropathy
Secondary hyperparathyroidism
Plan
Tunneled PICC tomorrow per IR for IV antibiotics (ceftriaxone and ampicillin) through 06-16-25.
HD tomorrow.
Continue antihypertensives.
Continue phosphate binders for hyperphosphatemia
Appropriate fluid restrictions and sodium and potassium restrictions
Original Note:
Consultation
-
Date/Time Consultation Requested: 05-30-25
Date/Time Consultation Performed: 05-30-25
Requesting Provider: Dr. Sierra Mccauley
Performing Provider: Dr. Guido De La O
Reason for Consultation: ESRD
Medical History
-
Chief Complaint: End-stage renal disease
History of Present Illness:
Paramjit Banuelos, 69-year-old with end-stage renal disease on hemodialysis M-W-F and a recent complicated hospital course is admitted due to PICC line occlusion. He was admitted last month due to bleeding from his left upper extremity AV fistula, which
was found to be patent and is functional. During that hospitalization, he was found to have Enterococcus faecalis bacteremia secondary to vertebral osteomyelitis/discitis L1-L2, and is on a a 6-week IV antibiotics course through 06-16-25. He was
discharged to [facility] with a right arm PICC line. They were not able to flush the PICC line or give him his IV antibiotics on 05-30-25, which is today, and he was sent to the hospital. Nephrology is consulted for routine dialysis. He is
maintained on calcium acetate for his hyperphosphatemia and a multidrug regimen for his hypertension. He is chronically anticoagulated with Eliquis for his atrial fibrillation.
Past Medical History
Stenting of vein graft to obtuse marginal October 24, 2023
Strep bacteremia now off antibiotics
diastolic CHF
ESRD MWF ([facility])
Metabolic acidosis
Hyperkalemia
Anemia, CKD +/- functional iron deficiency
Secondary hyperparathyroidism with hyperphosphatemia
Diabetes mellitus with multiple microvascular complications including profound nephrotic proteinuria
COPD
Obstructive sleep apnea/CPAP
Diabetic polyneuropathy
CAD with CABG �2009
LAD stent 2015
Left SFA and popliteal angioplasty 2017
Left femoral to [id number] popliteal bypass 2018
Right SFA and popliteal angioplasty/stenting 2015
Hypertension
Right bundle branch block
CML
Hyperlipidemia
TIA 2016
Frontal subdural hematoma 2018 (traumatic fall)
Long-standing smoker
Multiple laminectomy
Right total knee replacement
Left total knee replacement
Left upper arm AV graft September 13, 2023 (Dr. Luther)
NSTEMI August 2023 (troponin 0.51)
Hyperphosphatemia
Chronic ambulatory despite
Social History
Tobacco: Former Smoker
Alcohol: None
Personal:
Living: With Family
Family History
No chronic kidney disease
Allergies / Home Medications
Allergy/AdvReac Type Severity Reaction Status Date / Time
Iodinated Contrast Media Allergy Nausea / Verified 05/28/25 01:09
Vomiting,
'panic
attack'
latex Allergy Itching Verified 05/28/25 01:09
morphine Allergy Itching Verified 05/28/25 01:09
�Medication �Instructions �Recorded �Confirmed �Type
melatonin 5 mg tablet 5 mg PO HSPRN PRN sleep 04/06/19 05/30/25 History
atorvastatin 80 mg tablet 80 mg PO HS High cholesterol 01/25/21 05/30/25 History
clopidogrel 75 mg tablet (Plavix) 75 mg PO DAILY Blood Clot 02/19/24 05/30/25 History
Prevention/Tx
coQ10 (ubiquinol) 200 mg capsule 200 mg PO DAILY Supplement 02/19/24 05/30/25 History
semaglutide 0.25 mg or 0.5 mg (2 0.25 mg SC GRIMM Diabetes 02/19/24 05/30/25 History
mg/3 mL) subcutaneous pen injector
(Ozempic)
sertraline 100 mg tablet 100 mg PO BID depression/anxiety 02/19/24 05/30/25 History
vitamin B complex-vitamin C-folic 1 tab PO MOWEFR Supplement 02/19/24 05/30/25 History
acid 0.8 mg tablet (Nephro-Michelle)
apixaban 5 mg tablet (Eliquis) 5 mg PO BID #60 tabs 02/28/24 05/30/25 Rx
acetaminophen 325 mg tablet 650 mg PO Q4HPRN PRN mild 05/25/24 05/30/25 History
pain/fever >100
albuterol sulfate 90 mcg/actuation 2 puff inhalation R Q4HPRN PRN sob 05/25/24 05/30/25 History
aerosol inhaler
methylphenidate HCl 10 mg tablet 30 mg PO DAILY ADHD 07/07/24 05/30/25 History
ascorbic acid (vitamin C) 500 mg 500 mg PO DAILY Supplement 11/03/24 05/30/25 History
tablet (Vitamin C)
ezetimibe 10 mg tablet (Zetia) 10 mg PO DAILY High Cholesterol #0 11/04/24 05/30/25 Rx
tabs
aripiprazole 2 mg tablet (Abilify) 2 mg PO DAILY Mental Health/Anxiety 03/15/25 05/30/25 History
Held on 05/20/25.
Instructions: Resume on
06/17/25. Hold till you
follow up with your pcp given
history of TME likely
secondary to polypharmacy at
previous admission
loperamide 2 mg tablet 2 mg PO TIDPRN PRN diarrhea 03/15/25 05/30/25 History
calcium acetate 667 mg PO TIDWMEAL Kidney Disease 04/14/25 05/30/25 History
midodrine 5 mg tablet 5 mg PO Q4HPRN PRN SBP<100 #0 tabs 04/19/25 05/30/25 Rx
polyethylene glycol 3350 17 gram 17 g PO DAILYPRN PRN constipation 04/19/25 05/30/25 Rx
oral powder packet #0 ea
Enema Disposable 1 enema ND DAILY Constipation 05/03/25 05/30/25 History
bisacodyl 10 mg rectal suppository 10 mg ND DAILY PRN constipation 05/03/25 05/30/25 History
(Dulcolax (bisacodyl))
docusate sodium 100 mg capsule 100 mg PO BID Constipation 05/03/25 05/30/25 History
(Colace)
famotidine 10 mg tablet 10 mg PO DAILY Gastrointestinal 05/03/25 05/30/25 History
Issue
lorazepam 1 mg tablet 1 mg PO DAILY anxiety 05/03/25 05/30/25 History
magnesium hydroxide 400 mg/5 mL 400 mg PO DAILY PRN constipation 05/03/25 05/30/25 History
oral suspension (Milk of Magnesia)
mupirocin 2 % topical ointment 1 applic topical DAILY Skin Issues 05/03/25 05/30/25 History
sennosides 8.6 mg tablet (senna) 17.2 mg PO HS Constipation 05/03/25 05/30/25 History
amlodipine 5 mg tablet 5 mg PO BID #30 tabs 05/19/25 05/30/25 Rx
hydromorphone 2 mg tablet 2 mg PO Q8H PRN Moderate-severe 05/20/25 05/30/25 Rx
breakthrough pain 1 week #24 tabs
ampicillin sodium 2 gram 2 g IV Q12H 05/30/25 05/30/25 History
intravenous solution
ceftazidime 2 gram intravenous 2 g IV Q12H 05/30/25 05/30/25 History
solution
cyclobenzaprine 10 mg tablet 10 mg PO [id number] PRN spasm 05/30/25 05/30/25 History
metoprolol succinate 25 mg 25 mg PO DAILY 05/30/25 05/30/25 History
tablet,extended release 24 hr
Review of Systems
-
History Source: Patient
All other systems: Negative unless noted
Constitutional: Fatigue
Abdomen/GI: Constipated
Musculoskeletal: Other (Acute bilateral posterior thigh cramps)
Neurological: Numbness (Neuropathy)
Physical Exam
Vital Signs
Vital Signs
Temp Pulse Resp BP Pulse Ox
97.7 F 77 16 178/80 100
05/30/25 12:18 05/30/25 12:18 05/30/25 12:18 05/30/25 12:18 05/30/25 12:18
Lab Results
WBC 14.1 10^3/uL (4.8-10.8) H 05/30/25 09:08
RBC 3.34 10^6/uL (4.70-6.10) L 05/30/25 09:08
Hgb 10.6 g/dL (13.0-18.0) L 05/30/25 09:08
Hct 31.1 % (39.0-52.0) L 05/30/25 09:08
Plt Count 273 10^3/uL (130-400) 05/30/25 09:08
Sodium 138 mmol/L (135-145) 05/30/25 09:08
Potassium 5.5 mmol/L (3.5-5.1) H 05/30/25 09:08
Chloride 105 mmol/L (98-107) 05/30/25 09:08
Carbon Dioxide 18 mmol/L (22-30) L 05/30/25 09:08
BUN 61 mg/dl (9-20) H 05/30/25 09:08
Creatinine 7.2 mg/dL (0.7-1.3) H* 05/30/25 09:08
eGFR 7.67 05/30/25 09:08
Glucose 106 mg/dl (70-99) H 05/30/25 09:08
Calcium 9.0 mg/dl (8.4-10.2) 05/30/25 09:08
Physical Exam
HEENT: PERRL, Anicteric, Conjunctivae Clear and No JVD
Respiratory: Clear and Nonlabored Respirations
Cardiac: S1/S2 and Regular Rate/Rhythm
Abdomen: Soft and Nondistended
Genito-urinary: No Costovertebral Tender
Musculoskeletal: No Clubbing, No Cyanosis and No Edema
Skin: No Rash and No Bruising
Neuro: Nonfocal/Grossly Intact
Psych: Appropriate
Vascular Access: AVF (Right upper extremity AV fistula: Under Alejandro wrap)
Assessment/Plan
-
Impression
Non-functional PICC line from occlusion, now removed
Recent Enterococcus faecalis bacteremia secondary to vertebral osteomyelitis/discitis L1-L2
IV antibiotics through 06-16-25
Recent AV fistula bleed, patent and functional
ESRD MWF, [facility]
A-fib
DM2
CAD/CABG
Anemia
PAD
RUE AVF/ligated LUE AVG
Hyperphosphatemia
HTN
Diabetic neuropathy
Secondary hyperparathyroidism
Plan
Tunneled PICC tomorrow per IR for IV antibiotics (ceftriaxone and ampicillin) through 06-16-25.
AV fistula patent and functional.
HD tomorrow.
Blood pressure control with antihypertensives.
Maintain phosphate binders for hyperphosphatemia
Appropriate fluid restrictions and sodium and potassium restrictions
[2025-05-30] MEDS: FLEXERIL 10 MG PO (13:44)
[2025-05-30] MEDS: ROXICODONE 10 MG PO ×2 (13:44→19:30)
--- NOTE | 2025-05-30 14:12 | W.PN.UPDATE ---
Update Note
Progress Note Update
Await right foot radiographs
Strict offloading of heel
Will evaluate and assess full consultation after radiographs
--- NOTE | 2025-05-30 15:16 | CM ---
Reviewed the chart notes and spoke with the patient at the bedside. The patient is currently at [facility] for short term rehab. Patient is a dialysis patient. The patient prior to hospitalizations and rehab stays resided with his spouse in a
two story home with a ramp to enter. The patient has a first floor set-up. The patient has a rolling walker, shower chair, and shower rails in home. The patient has had [facility] in the past and been to [facility] and [facility] in the past. CM
continues to be available to patient/family and is monitoring medical plan for needs at discharge.
Plan: Discharge to SNF for continues IV abx treatment. Referral sent to [facility] in [facility].
[2025-05-30 17:50] LABS: Glucose - Point of Care 130 mg/dl (70-99)
[2025-05-30] MEDS: NORVASC 5 MG PO (20:59)
[2025-05-30] MEDS: COLACE 100 MG PO (21:01)
[2025-05-30] MEDS: ZOLOFT 100 MG PO (21:01)
[2025-05-30] MEDS: ELIQUIS 5 MG PO (21:01)
[2025-05-30] MEDS: LIPITOR 80 MG PO (21:01)
[2025-05-30] MEDS: SENOKOT 17.2 MG PO (21:02)
[2025-05-30] MEDS: STERILE WATER FOR INJECTION 20 ML IV (21:02)
[2025-05-30 21:22] LABS: Glucose - Point of Care 128 mg/dl (70-99)
[2025-05-30] MEDS: ATIVAN 1 MG PO (22:31)
[2025-05-31] VITALS (7 sets, daily range): BP systolic 91–154; BP diastolic 61–92; BMI 27.9
[2025-05-31] MEDS: ROXICODONE 10 MG PO ×4 (00:24→21:17)
[2025-05-31] MEDS: MELATONIN 5 MG PO ×2 (00:26→23:03)
[2025-05-31] MEDS: FLEXERIL 10 MG PO (03:17)
--- NOTE | 2025-05-31 07:31 | W.PN.UPDATE ---
Update Note
Progress Note Update
Patient seen with stable heel wound
-Strict offloading with JOLLY boot in bed, WBAT for transfers
-Iodine to heel wound
-No invervention needed
-Recommend UTE/PVRs
-Follow up with Propat[facility] as patient is known to her for care
[2025-05-31 08:19] LABS: Hematocrit 30.1 % (39.0-52.0); Hemoglobin 9.8 g/dL (13.0-18.0); Mean Corp Hgb Conc. 32.6 g/dL (33.0-37.0); Mean Corpuscular Volume 95.3 fL (80.0-94.0); Nucleated Red Blood Cells % 0 % (-); Platelet Count 304 10^3/uL (130-400); Red Cell Dist. Width 14.7 % (11.5-14.5)
[2025-05-31] MEDS: NOVOLOG FLEXPEN-LOW RESISTANCE SC ×3 (08:45→17:44)
[2025-05-31 08:50] LABS: Glucose - Point of Care 115 mg/dl (70-99)
[2025-05-31 08:57] LABS: Blood Urea Nitrogen 69 mg/dl (9-20); Calcium 8.9 mg/dl (8.4-10.2); Carbon Dioxide 16 mmol/L (22-30); Chloride 105 mmol/L (98-107); Estimated Creatinine Clearance 8 ml/min; Glucose 121 mg/dl (70-99); Potassium 4.9 mmol/L (3.5-5.1); Sodium 139 mmol/L (135-145); eGFR 6.11
[2025-05-31] MEDS: NEPHROCAP PO (09:00)
[2025-05-31] MEDS: NORVASC PO (09:04)
[2025-05-31] MEDS: TOPROL XL PO (09:07)
[2025-05-31] MEDS: VITAMIN C PO (09:07)
--- NOTE | 2025-05-31 09:08 | WOUNDNOTE ---
[facility] RN note: Patient admitted with Picc line malfunction, R heel ulcer. Patient admitted from [facility].
See H&P for complete history.
PMH: chronic back pain with leg spasms (R>L), neuropathy, VALDOVINOS's, CVA, subdural hematoma 2019 with leg weakness, sleep apnea, a fib, CAD, HTN, [place], PVD, GERD, ESRD on HD, arthritis, spondylosis, DM, [place], anemia, anxiety/depression. Patient follows
[facility].
Wound Location and type/assessment: Patient admitted with: R heel broken blister/unstageable pressure injury along with history of PAD. R plantar 5th MTH dry callus. Unable to assess buttocks/sacral skin d/t patient on hemodialysis. Will plan to
assess this afternoon. +R pedal pulse via portable Doppler (MAYELA Maravilla confirmed).
Appetite: on 2000 calorie diet.
Pressure redistribution devices in place: Centrella Pro with Accumax mattress. Bariatric air chair cushion. TruVue lite boot.
Plan: Patient seen with Vascular PA Renita Goodson. Betadine and ABD pad applied to R heel. TruVue lite boot reapplied to RLE. Bariatric air chair cushion placed at foot end of mattress to cushion heels. Discussed adding an air overlay with RN
Evelyn. t/c SPD and ordered another TruVue lite boot.
Will confirm orders with Dr. Mccauley and discussed with CHAPIS Flower.
Care plan to be updated and will follow as needed.
Note to case management of equipment requested for discharge: Air mattress if not already in place.
Recommend follow up with vascular and manufacturing sr engineer and wound animal caretaker supervisor (i.e. wound care center) upon discharge.
--- NOTE | 2025-05-31 09:17 | CON.VAS ---
Consultation
Consultation Request
Date/Time Consultation Performed: 05/31/2025 9 AM
Performing Provider: Elizabeth
Reason for Consultation: Right heel wound
Medical History
-
Chief Complaint: Leg spasms
History of Present Illness:
69-year-old male with past medical history significant for PAD, COPD, diabetes, end-stage renal disease on HD, CHF, CAD, TIA, hypertension, A-fib, and PA who presented to [facility] yesterday for evaluation of his PICC line. He is in the
midst of a 6-week IV antibiotic course for osteomyelitis/discitis. Patient resides at [facility] since last discharge from our hospital. Staff noted they could not flush PICC line yesterday which led to this admission. PICC line removed on
admission. Plan for new PICC placement today.
Vascular consult for right heel wound. Patient seen at bedside this a.m. with wound care nurse present. Patient currently receiving dialysis with no issue. wire machine cutter noted heel wound forming on last admission due to patient 'grinding his
heels into the bed' for repositioning and back pain. Patient follows with Dr. Ag as an outpatient. Seen by Dr. Obregon this morning. Foot x-rays are negative for osteomyelitis at the heel. No intervention recommended by podiatry.
On exam patient has boggy right heel, small area has open skin tear. No drainage noted. Remainder of foot intact and warm. + Doppler signal PT and DP. Faint bilateral femoral pulses palpable.
Vascular surgical history below:
05/10/2016- Right lower extremity arteriogram, right superficial femoral artery and popliteal artery angioplasty and stent using a 6 x 100 Zilver PTX and a 6 x [address] Olvin Willams
10/27/2018- Left lower extremity arteriogram, angioplasty of the left SFA and popliteal artery with a [address] Olvin Willams
04/11/2019- Left femoral endarterectomy (common femoral, SFA, origin of profunda femoris artery). Left femoral to above knee popliteal artery bypass with 8 mm ring Propaten graft with Dr. Fantasma Atkinson
09/13/2023- Creation of left upper arm AV graft for hemodialysis Dr. Paul Luther III
11/14/2023- Left upper extremity fistulogram and central venogram Dr. Fantasma Atkinson
02/27/2024- Left upper extremity fistulogram and central venogram, balloon angioplasty and stent placement of venous anastomotic/central venous stenosis with 10 mm x 4 cm Cook 635 stent, balloon angioplasty and stent placement with covered Gilbert
Viabahn 8 mm x 5 cm stent with an AV graft Dr. Fantasma Atkinson
07/30/2024- Left upper extremity fistulogram and central venogram, balloon angioplasty of central venous stenosis with [address] Fantasma Atkinson
09/24/2024- Right upper extremity brachiobasilic arteriovenous fistula creation with single stage basilic vein transposition, ligation of left upper extremity AV graft Dr. Fantasma Atkinson
01/25/2025- Balloon angioplasty of right basilic vein outflow stenosis (7 mm x 80 mm Lutonix drug-coated balloon), Balloon angioplasty and stenting of right axillary vein stenosis
03/17/2025- Duplex assisted cannulation of right upper extremity arteriovenous fistula, balloon angioplasty of long segment outflow vein stenosis with 7 mm and 8 mm angioplasty balloon, balloon angioplasty of recalcitrant segment of vein stenosis
with 6 mm high-pressure angioplasty balloon, 6 mm cutting balloon as well, placement of atrium iCAST 7 mm x 22 mm covered stent recalcitrant severe outflow vein stenosis, central venogram Dr. Fantasma Atkinson
05/18/2025� Diagnostic right upper extremity fistulogram, central venogram, Drug-coated balloon angioplasty and stenting of venous outflow stenosis (7 mm x 80 mm Lutonix DCB; 7 mm x 5 cm Viabahn stent graft), Balloon angioplasty of brachiocephalic
stenosis (10 mm x 40 mm angioplasty balloon-Dr. Luther
Past Medical History
Past Medical History: Other (Right bundle branch block, paroxysmal A-fib, CAD, CHF, hypertension, diabetes, renal failure on HD (MWF), strep bacteremia, anemia, hyperparathyroid, obstructive sleep apnea, PAD, CML, CAD, frontal subdural hematoma 2018)
Past Surgical History: Other (CABG x3 2010, laminectomy, total right knee and left knee)
Social History
Tobacco: Former Smoker
Personal:
Living: With Family
Family History
Family History: Reviewed & Not Pertinent
Allergies / Home Medications
Allergy/AdvReac Type Severity Reaction Status Date / Time
Iodinated Contrast Media Allergy Nausea / Verified 05/28/25 01:09
Vomiting,
'panic
attack'
latex Allergy Itching Verified 05/28/25 01:09
morphine Allergy Itching Verified 05/28/25 01:09
�Medication �Instructions �Recorded �Confirmed �Type
melatonin 5 mg tablet 5 mg PO HSPRN PRN sleep 04/06/19 05/30/25 History
atorvastatin 80 mg tablet 80 mg PO HS High cholesterol 01/25/21 05/30/25 History
clopidogrel 75 mg tablet (Plavix) 75 mg PO DAILY Blood Clot 02/19/24 05/30/25 History
Prevention/Tx
coQ10 (ubiquinol) 200 mg capsule 200 mg PO DAILY Supplement 02/19/24 05/30/25 History
semaglutide 0.25 mg or 0.5 mg (2 0.25 mg SC GRIMM Diabetes 02/19/24 05/30/25 History
mg/3 mL) subcutaneous pen injector
(Ozempic)
sertraline 100 mg tablet 100 mg PO BID depression/anxiety 02/19/24 05/30/25 History
vitamin B complex-vitamin C-folic 1 tab PO MOWEFR Supplement 02/19/24 05/30/25 History
acid 0.8 mg tablet (Nephro-Michelle)
apixaban 5 mg tablet (Eliquis) 5 mg PO BID #60 tabs 02/28/24 05/30/25 Rx
acetaminophen 325 mg tablet 650 mg PO Q4HPRN PRN mild 05/25/24 05/30/25 History
pain/fever >100
albuterol sulfate 90 mcg/actuation 2 puff inhalation R Q4HPRN PRN sob 05/25/24 05/30/25 History
aerosol inhaler
methylphenidate HCl 10 mg tablet 30 mg PO DAILY ADHD 07/07/24 05/30/25 History
ascorbic acid (vitamin C) 500 mg 500 mg PO DAILY Supplement 11/03/24 05/30/25 History
tablet (Vitamin C)
ezetimibe 10 mg tablet (Zetia) 10 mg PO DAILY High Cholesterol #0 11/04/24 05/30/25 Rx
tabs
aripiprazole 2 mg tablet (Abilify) 2 mg PO DAILY Mental Health/Anxiety 03/15/25 05/30/25 History
Held on 05/20/25.
Instructions: Resume on
06/17/25. Hold till you
follow up with your pcp given
history of TME likely
secondary to polypharmacy at
previous admission
loperamide 2 mg tablet 2 mg PO TIDPRN PRN diarrhea 03/15/25 05/30/25 History
calcium acetate 667 mg PO TIDWMEAL Kidney Disease 04/14/25 05/30/25 History
midodrine 5 mg tablet 5 mg PO Q4HPRN PRN SBP<100 #0 tabs 04/19/25 05/30/25 Rx
polyethylene glycol 3350 17 gram 17 g PO DAILYPRN PRN constipation 04/19/25 05/30/25 Rx
oral powder packet #0 ea
Enema Disposable 1 enema MA DAILY Constipation 05/03/25 05/30/25 History
bisacodyl 10 mg rectal suppository 10 mg MA DAILY PRN constipation 05/03/25 05/30/25 History
(Dulcolax (bisacodyl))
docusate sodium 100 mg capsule 100 mg PO BID Constipation 05/03/25 05/30/25 History
(Colace)
famotidine 10 mg tablet 10 mg PO DAILY Gastrointestinal 05/03/25 05/30/25 History
Issue
lorazepam 1 mg tablet 1 mg PO DAILY anxiety 05/03/25 05/30/25 History
magnesium hydroxide 400 mg/5 mL 400 mg PO DAILY PRN constipation 05/03/25 05/30/25 History
oral suspension (Milk of Magnesia)
mupirocin 2 % topical ointment 1 applic topical DAILY Skin Issues 05/03/25 05/30/25 History
sennosides 8.6 mg tablet (senna) 17.2 mg PO HS Constipation 05/03/25 05/30/25 History
amlodipine 5 mg tablet 5 mg PO BID #30 tabs 05/19/25 05/30/25 Rx
hydromorphone 2 mg tablet 2 mg PO Q8H PRN Moderate-severe 05/20/25 05/30/25 Rx
breakthrough pain 1 week #24 tabs
ampicillin sodium 2 gram 2 g IV Q12H 05/30/25 05/30/25 History
intravenous solution
ceftazidime 2 gram intravenous 2 g IV Q12H 05/30/25 05/30/25 History
solution
cyclobenzaprine 10 mg tablet 10 mg PO [id number] PRN spasm 05/30/25 05/30/25 History
metoprolol succinate 25 mg 25 mg PO DAILY 05/30/25 05/30/25 History
tablet,extended release 24 hr
Review of Systems
-
History Source: Patient
All other systems: Negative unless noted
Constitutional: Reports No Symptoms
EENT: Reports No Symptoms
Respiratory: Reports No Symptoms
Abdomen/GI: Reports No Symptoms
: Reports No Symptoms
Musculoskeletal: Reports Muscle Pain
Skin: Reports Other (Heel wound)
Physical Exam
Vital Signs
Temp Pulse Resp BP Pulse Ox
97.8 F 97 12 133/81 95
05/31/25 07:40 05/31/25 07:40 05/31/25 07:40 05/31/25 07:40 05/31/25 07:40
Lab Results
05/31/25 07:34
05/31/25 07:34
Physical Exam
General: Pain (Patient falling asleep during exam but when awake has muscle spasms in his bilateral legs)
HEENT: Normocephalic and Atraumatic
Respiratory: Non Labored Respirations
Cardiac: Negative JVD
GI: Soft and Non Tender
Musculoskeletal: No Clubbing, No Cyanosis and No Edema
Skin: Warm and Other (See wound care notes for images of right heel)
Neuro: Awake (Sleepy but awakens easily), Alert and Oriented
Psych: Calm
Pulses: Bilateral Femoral: +1, Right Dorsalis Pedis: Doppler and Right Posterior Tibial: Doppler
Assessment / Plan
-
61-year-old male here for nonfunctioning PICC line
Complains of bilateral lower extremity muscle spasms that are severely painful, intermittent, and worsened by movement
Vascular consult for new right heel wound-denies pain to the site
Plan:
Updated arterial ultrasound/UTE/TBI
Local wound care
Heel offloading boot
Will follow-up after study complete
Data Reviewed
-
Labs: Labs Reviewed by me
--- NOTE | 2025-05-31 09:19 | W.PN.NEPH.HD ---
Assessment
-
pt seen during HD
vitals stable
AVF functions well
pain control
abx per primary
Progress Note - Hemodialysis
-
Date of Service: May 31, 2025
Duration: 30 minutes and 3 hours
Potassium Bath: 2
Calcium Bath: 2.5
Opti-Dialyzer: 160
Ultrafiltration: Other (2kg)
Blood Flow: 400
Dialysate Flow: 600
Heparin: no
EPO: 4000
[2025-05-31] MEDS: STERILE WATER FOR INJECTION 20 ML IV ×2 (09:22→21:15)
[2025-05-31] MEDS: COLACE PO (09:24)
[2025-05-31] MEDS: MIRALAX PO (09:25)
[2025-05-31] MEDS: ROCEPHIN 2000 MG IV ×2 (09:27→21:15)
[2025-05-31] MEDS: RITALIN PO (09:28)
[2025-05-31] MEDS: ZETIA 10 MG PO (09:29)
[2025-05-31] MEDS: ELIQUIS 5 MG PO ×2 (09:29→21:16)
[2025-05-31] MEDS: ZOLOFT 100 MG PO ×2 (09:29→21:17)
[2025-05-31] MEDS: PLAVIX 75 MG PO (09:29)
[2025-05-31] MEDS: DILAUDID 2 MG PO ×2 (09:37→23:03)
[2025-05-31] MEDS: BACTROBAN 2% OINTMENT 1 APPLIC TOPICAL (09:39)
[2025-05-31] MEDS: RETACRIT 4000 UNITS IV (10:17)
[2025-05-31 10:19] LABS: Glycohemoglobin (HgbA1c) 5.3 % (4.0-5.6)
[2025-05-31] MEDS: FLEXBUMIN 25% FOR HEMODIALYSIS 12.5 GRAMS IV (10:30)
[2025-05-31 10:59] LABS: Glucose - Point of Care 122 mg/dl (70-99)
[2025-05-31] MEDS: MANNITOL 25% 12.5 GRAMS IV (10:59)
--- NOTE | 2025-05-31 10:59 | W.PN.HOSP.TC ---
Today's Communication/Plan
-
MRI of the lumbar spine
Patient's thinks he has allergy to gadolinium not listed here. Last time patient had gadolinium was in November 2021
Dialysis will need to be coordinated after the MRI
Continue antibiotics
Intervention radiology for tunneled PICC
Assessment / Plan
Assessment / Plan
69-year-old man presented to the hospital with PICC line problem. He is at [facility] and they could not flush the PICC line. He has been having some aching pain for the past few days. No edema. Patient is in the middle of a 6-week course of
ceftriaxone 2 g twice daily and ampicillin 2 g twice daily per infectious disease recommendation after hospitalization in April for osteomyelitis/discitis.At discharge patient's med list had antibiotics listed under activity /restriction and not
under medications.
Nursing at [facility] had to call [place] and it must have been a field advisor error where patient got ceftazidime instead of ceftriaxone for past 10 days.
Patient states that he has leg spasms and this is not new.
Chest x-ray-no acute changes
Echo 05/05/2025-technically difficult study. Normal LV size, systolic function. Mild concentric LVH. EF 50 to 55%. No vegetation.
Ultrasound left upper extremity PICC line with a small nonocclusive clot along the catheter in the left axillary vein.
CVS: S1-S2 normal
Chest: CTA B/L
Abdomen: Soft, NT / Bowel sounds present
Extremities: No edema
HAND STAPLER: Patient very apprehensive of any movements he has good hand grasp and able to move his upper extremities without any problems. Right lower extremity heel with ulcer noted.
Bilateral lower extremity he is able to move and bend his legs however he states that every movement causes some spasm therefore he is very apprehensive of any kind of movement or to cooperate with neuroexam. Reflexes seem to be equal bilaterally
lower extremities and upper extremity.
# Nonfunctional PICC line left upper extremity with a small nonocclusive clot along the catheter in the left axillary vein.
Interventional radiology to place a tunneled PICC line catheter
ER discussed with hematology who recommended taking PICC line out and continuing Eliquis. Picc out
Discussed with IR. No need to hold Eliquis for the procedure
Continue antibiotics via peripheral line now
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
Blood cultures since 05/05/2025-negative
Currently on ceftriaxone and ampicillin-planned antibiotics through 06/16/2025
Patient's outpatient records say that he is on ceftazidime 2 g IV every 12 hours.
Changed back to ceftriaxone repeat blood cultures were ordered yesterday. Patient refused therefore ordered again today and was drawn
With increasing pain we will repeat MRI with contrast. Discussed with infectious disease, nephrology and radiology
Radiology feels that contrast will be helpful to look for an abscess CT scan will be much less sensitive, with the dye
Discussed with patient's
Infectious disease consulted to see if duration of antibiotic would change
# Right heel ulcer-seen by Dr. Obregon from podiatry. Patient uses his heels to push up in the bed which is likely causing this strict offloading discussed with Uriel zurita. Vascular consulted because of significant vascular problem.
# Anemia of chronic disease-Also had bleeding from right upper extremity AV graft status post fistulogram with ballooning and stent 05/18/2025. Received 1 unit of blood
# Paroxysmal atrial fibrillation/flutter-continue metoprolol and Eliquis
# History of coronary artery disease with CABG 2009 and also history of PCI LAD 2005, VG to OM 2022, PCI ISR VG to OM 2023
# Peripheral artery disease with history
Right SFA and popliteal artery angioplasty and stent 2015
Left lower extremity angioplasty and left SFA and popliteal artery angioplasty with Balloon 2017
Left femoral endarterectomy with left femoropopliteal bypass 2018
Continue Plavix, statin
# End-stage renal disease on hemodialysis-consult nephrology. HD Saturday
# Systemic hypertension-on Amlodipine and Metoprolol
# Hyperlipidemia-continue Zetia, Statin
# Chronic hypotension on Midodrine
# Diabetes-on Ozempic as outpatient Sundays
Accu-Cheks and sliding scale coverage
# H/O Staph bacteremia 01/2024
# COPD-stable
# History of CVA
# Fatty liver
# History of traumatic frontal Subdural Hematoma-2019 with leg weakness
# Sleep apnea not on CPAP as outpatient. Pt says he was told he doesn't need.
# Depression/anxiety on as needed Lorazepam, Abilify, Sertraline
# ADHD on methylphenidate
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 Guzman.
# Secondary hyperparathyroidism secondary to end-stage renal disease
# Spinal stenosis with history of Lumbar laminectomy
# History of substance abuse in the past
# Right bundle branch block
# Ambulatory dysfunction
# History of gout
# GERD-Pepcid
# Obesity
# Ex-smoker
# DVT prophylaxis-Eliquis
# CODE STATUS- Full CODE
states that the patient will need prep for IV dye for MRI. I see that he has had a MRI dye study in November 2021 none since then. He is also listed as allergic to iodinated contrast not gadolinium.
Spoke to patient's today and updated on his medical conditions also discussed about patient receiving ceftazidime at the [facility] and Dr. Mcneil is consulted to see the duration needs to be extended.
Discussed about right heel wound
Discussed about addressing CODE STATUS with the patient with all his medical conditions. She will talk to him.
time spent over 55 min
Anticipated Discharge: 24 - 48 hours
Subjective/Interval History
-
Date of Service: May 31, 2025
Objective Data
-
Labs:
Laboratory Results
05/31/25
07:34
WBC 14.0 H
Hgb 9.8 L
Hct 30.1 L
Plt Count 304
Sodium 139
Potassium 4.9
Chloride 105
Carbon Dioxide 16 L
BUN 69 H
Creatinine 8.7 H*
Glucose 121 H
Calcium 8.9
Vital Signs:
Vital Signs
Temp Pulse Resp BP Pulse Ox
97.8 F 97 12 133/81 95
05/31/25 07:40 05/31/25 07:40 05/31/25 07:40 05/31/25 07:40 05/31/25 07:40
I&O
05/30/25 05/31/25 06/01/25
06:59 06:59 06:59
Intake Total 120 / 120
Output Total 400 / 400
Balance -280 / -280
--- NOTE | 2025-05-31 11:10 | CON.ID ---
Consultation
-
Date/Time Consultation Requested: 05/31/25 0845
Date/Time Consultation Performed: 05/31/2025 1056
Requesting Provider: Dr. Mccauley
Performing Provider: Dr. Mcneil
Reason for Consultation: L1-2 discitis/vertebral osteomyelitis
Chief Complaint / Past History
History of Present Illness
Paramjit Banuelos is a 69-year-old man with a significant past medical history of ESRD�HD and recent diagnosis of L1-2 discitis/vertebral osteomyelitis being seen in infectious disease consultation regarding ongoing management of antibiotic therapy.
History is obtained from chart review, along with patient interview.
The patient is known to the Infectious Diseases service, having been seen in late April for Enterococcus faecalis bacteremia. During that admission, MRI imaging of the low back was performed, with findings compatible with discitis and osteomyelitis
at the L1-2 region. He also had suspected paraspinal inflammation noted. Cardiac imaging was nondiagnostic. The patient was to continue with a course of ceftriaxone and ampicillin through 06/16, to complete a 6-week course of antibiotics from the
first negative blood culture.
The patient was [facility] to a local [facility] on 05/20 to continue with his course of antibiotics (ampicillin 2 g IV every 12 hours, ceftriaxone 2 g IV every 12 hours). Per review history, it appears that ceftazidime was transcribed at the
[facility] rather than ceftriaxone, and the patient was receiving the former for the past 10 days.
The patient presented back to the emergency room on 05/25 with bleeding from his PICC line. He was discharged back to the facility, but returns on 05/28 to the ER, having been sent in for abnormal labs (elevated creatinine). He was sent back to the
longterm facility, but returns on 05/30, again for evaluation of his PICC line, as nursing staff was unable to flush or push medicines through the PICC line. Workup revealed a nonocclusive DVT around the PICC line, and the line was removed.
Additionally, he has been found to have a right heel pressure wound, and Podiatry is evaluating.
At this time, the patient continues to have low back discomfort.
Past History
Additional Past Medical History:
pA-fib
CML
COPD
Hx CVA
HTN
HLD
DM type II
CAD; Hx AL
ESRD�HD
Obesity
Additional Past Surgical History:
Left femoropopliteal bypass
Left femoral endarterectomy
LUE HD graft
Allergy History:
Iodinated Contrast Media Allergy (Verified 05/28/25 01:09)
Nausea / Vomiting, 'panic attack'
latex Allergy (Verified 05/28/25 01:09)
Itching
morphine Allergy (Verified 05/28/25 01:09)
Itching
Medications Reviewed: Yes
Current Antibiotics:
Ampicillin 2 g IV every 12 hours
Ceftriaxone 2 g IV every 12 hours
Social History
Tobacco: Former Smoker
Alcohol: None
Drug: Marijuana
Personal:
Living: With Family
Employment: Retired
Family History
Family History: Not Pertinent
Review of Systems
Vital Signs
Temp Pulse Resp BP Pulse Ox
97.7 F 115 16 115/67 97
05/31/25 11:05 05/31/25 11:05 05/31/25 11:05 05/31/25 11:05 05/31/25 11:05
Physical Exam
Physical Exam
Constitutional: No Acute Distress, Comfortable, Chronically Ill and Non-toxic
Eyes: No Conjunctival Hemorrhage and Sclera Anicteric
Oral: No Thrush and No Ulcers
Lymph Nodes: Negative Lymphadenopathy
Cardiovascular: S1/S2; Negative S3/S4 or Murmur
Pulmonary: Clear; Negative Wheezes or Rales
Gastrointestinal: Soft and Non Tender
Genito-Urinary: Negative [place] or CVA Tenderness
Musculoskeletal: Spinal Tenderness (Lumbar area, both spinal and paraspinal areas)
Skin: Warm and Dry; Negative Rash or Jaundice
Neurological: Awake, Alert and Oriented
Psychological: Calm
Lines: HD Cath
Lab / Diagnostic Study Results
05/31/25 07:34
05/31/25 07:34
Abs Immat Gran (auto) 0.1 10^3/uL (0-0.05) H 05/31/25 07:34
Absolute Neuts (auto) 9.4 10^3/uL (1.4-6.5) H 05/31/25 07:34
Absolute Lymphs (auto) 2.1 10^3/uL (1.2-3.4) 05/31/25 07:34
Absolute Monos (auto) 1.3 10^3/uL (0.1-0.6) H 05/31/25 07:34
Absolute Basos (auto) 0.1 10^3/uL (0-0.2) 05/31/25 07:34
Immature Gran % 0.8 % (0-0.5) H 05/31/25 07:34
Neutrophils % 67.1 % (42.2-75.2) 05/31/25 07:34
Lymphocytes % 15.0 % (20.5-51.1) L 05/31/25 07:34
Monocytes % 9.1 % (1.7-9.3) 05/31/25 07:34
Eosinophils % 7.4 % (0-6) H 05/31/25 07:34
Basophils % 0.6 % (0-2) 05/31/25 07:34
Microbiology Results
Micro:
05/31/25 09:06 Blood Culture - Pending
Blood/Venous
Imaging:
05/30/2025 X-ray right foot: No radiographic evidence of osteomyelitis.
05/04/2025 MRI lumbar spine without contrast: Findings compatible with discitis and osteomyelitis at L1-2. There is evidence for paraspinal inflammation with probable paraspinal abscesses. No evidence for epidural extension or inflammatory process,
with no evidence for epidural phlegmon or abscess.
05/03/2025 CT abdomen/pelvis without contrast: Moderate colonic stool burden without evidence of obstruction. Prior L1-L5 posterior spinal fusion noted. There are endplate irregularities with mild surrounding paraspinal soft tissue
thickening/stranding at the L1-L2 intervertebral space which is concerning for discitis or osteomyelitis. A dedicated MRI with and without contrast may be considered as clinically indicated.
Assessment / Plan
Leukocytosis
Low back pain 2* L1-2 discitis / vertebral osteomyelitis
Bacteremia with E. faecalis
- cleared
Constipation / obstipation
Elevated ESR
Elevated CRP
pA-fib
CML
COPD
Hx CVA
HTN
HLD
DM type II
CAD; Hx AL
ESRD�HD
Obesity
Recommendations:
White count remains elevated, but appears stable. ?reactive
Blood cultures (05/03/25) with E. faecalis. Repeat blood cultures (05/05, 05/07) finalized and without growth.
MRI findings compatible with discitis and osteomyelitis at L1-2. Possible paraspinal inflammation also noted.
TTE nondiagnostic.
Patient previously on a course of ampicillin and ceftriaxone, to continue through 06/16/25.
- It appears that the patient was transition to ceftazidime upon transfer to the SNF, and has remained on it for the past 10 days.
- At this time, the patient has resumed ceftriaxone.
Would extend the current course of antibiotics through 06/26/2025.
Check ESR and CRP.
Given ongoing low back pain, may consider repeat MRI to assess for any extension or resolution of prior findings.
Follow white count and temperature curve.
���������������������������������������������������������
Care Review
Plan reviewed with: Physician (Hospitalist)
[2025-05-31] MEDS: OXYCONTIN (CONTROLLED RELEASE) 10 MG PO (11:33)
[2025-05-31] MEDS: AMPICILLIN 108 MG IV ×2 (11:34→21:14)
[2025-05-31] MEDS: FLEXERIL 5 MG PO ×3 (13:10→23:03)
[2025-05-31 13:24] LABS: C-Reactive Protein < 5.00 mg/L (0.0-10.00)
--- NOTE | 2025-05-31 14:57 | WOUNDNOTE ---
[facility] RN note: Patient reluctant to turn d/t he gets spasms in his back/legs with pain. Sacrum and R buttocks with dull red discolored skin (appears chronic) along with a pinpoint superficial open are suspect from scratching. Sacral shaped silicone
border foam maintained. Patient is on a static air overlay. TruVue lite boots on. Bariatric air chair cushion in room. CHAPIS Perez gave patient pain med and assisted with turning patient. Instructed patient importance of turning to prevent a pressure
injury. Will follow as needed.
[2025-05-31 17:21] LABS: Glucose - Point of Care 127 mg/dl (70-99)
[2025-05-31] MEDS: LIDOCAINE 4% PATCH 1 PATCH TOPICAL (18:34)
[2025-05-31] MEDS: PEPCID 10 MG PO (18:35)
[2025-05-31] MEDS: LIPITOR 80 MG PO (21:15)
[2025-05-31] MEDS: SENOKOT 17.2 MG PO (21:15)
[2025-05-31] MEDS: ATIVAN 1 MG PO (21:16)
[2025-05-31] MEDS: NORVASC 5 MG PO (21:16)
[2025-05-31] MEDS: COLACE 100 MG PO (21:16)
[2025-05-31 22:13] LABS: Glucose - Point of Care 130 mg/dl (70-99)
[2025-06-01] VITALS (22 sets, daily range): BP systolic 116–191; BP diastolic 40–115; BMI 27.3
[2025-06-01] MEDS: ROXICODONE 10 MG PO ×2 (01:36→05:23)
[2025-06-01] MEDS: TYLENOL 650 MG PO (01:36)
[2025-06-01 05:01] LABS: Hematocrit 29.1 % (39.0-52.0); Hemoglobin 9.7 g/dL (13.0-18.0); Mean Corp Hgb Conc. 33.3 g/dL (33.0-37.0); Mean Corpuscular Volume 95.1 fL (80.0-94.0); Platelet Count 281 10^3/uL (130-400); Red Cell Dist. Width 15.1 % (11.5-14.5)
[2025-06-01] MEDS: FLEXERIL 5 MG PO ×4 (05:22→23:07)
[2025-06-01 05:32] LABS: Blood Urea Nitrogen 37 mg/dl (9-20); Calcium 9.3 mg/dl (8.4-10.2); Carbon Dioxide 28 mmol/L (22-30); Chloride 102 mmol/L (98-107); Estimated Creatinine Clearance 13 ml/min; Glucose 111 mg/dl (70-99); Potassium 4.5 mmol/L (3.5-5.1); Sodium 139 mmol/L (135-145); eGFR 11.60
--- NOTE | 2025-06-01 07:52 | W.PN.VS ---
Today's Communication / Plan
-
agram
Assessment/Plan
-
right heal ulcer
- plan for agram
- pain control
Subjective Data
-
Date of Service: June 01, 2025
patient with right heel ulcer
Objective Data
-
Vital Signs
Temp Pulse Resp BP Pulse Ox
98.3 F 97 17 164/86 98
06/01/25 03:03 06/01/25 03:03 06/01/25 03:03 06/01/25 03:03 06/01/25 03:03
Intake and Output
05/31/25 06/01/25 06/02/25
06:59 06:59 06:59
Intake Total 120 / 120 480 / 480
Output Total 400 / 400 100 / 100
Balance -280 / -280 380 / 380
Intake:
Oral fluids 120 / 120 480 / 480
Output:
Urine, Voided 400 / 400 100 / 100
Lab Results
06/01/25 04:51
06/01/25 04:51
Calcium 9.3 mg/dl (8.4-10.2) 06/01/25 04:51
Physical Exam
-
rrr
ctab
right heal with superficial wound
no palpable pulses
brent 0.80 looks to have sfa occlussion
--- NOTE | 2025-06-01 09:06 | W.SUR.POST ---
Surgical Immediate Post Op
Note
Pre Op Diagnosis: Right lower extremity heel wound, peripheral arterial disease
Post Op Diagnosis: Right lower extremity heel wound, peripheral arterial disease
Procedure Performed: Aortogram, Right lower extremity angiogram , INSURANCE COUNSEL and stent of popliteal, INSURANCE COUNSEL and shockwave to tibioperoneal trunk and posterior tibial
Primary Surgeon: Olvin Willams MD
Secondary Surgeons: N/A
Anesthesia: MAC
Estimated Blood Loss: 2ml
Fluids: See anesthesia flow sheet
Drains/Shunts: N/A
Specimens/Cultures: N/A
Doppler/Duplex/Angio (Y/N): Y
Complications: None
Operative Findings: Right lower extremity PT Doppler signal
[2025-06-01] MEDS: COLACE PO ×2 (09:48→21:12)
[2025-06-01] MEDS: MIRALAX PO (09:48)
[2025-06-01] MEDS: ELIQUIS PO (09:48)
--- NOTE | 2025-06-01 10:05 | PTCARENOTE ---
HD tomorrow at noon ilia he can have MRI in the AM.
[2025-06-01] MEDS: SUBLIMAZE 50 MCG IV ×2 (10:35→11:00)
[2025-06-01 10:43] LABS: Glucose - Point of Care 128 mg/dl (70-99)
[2025-06-01] MEDS: NOVOLOG FLEXPEN-LOW RESISTANCE SC ×2 (10:51→12:30)
[2025-06-01] MEDS: AMPICILLIN 108 MG IV ×2 (11:20→23:07)
--- NOTE | 2025-06-01 11:51 | W.PN.HOSP.TC ---
Today's Communication/Plan
-
Post vascular intervention care
Dye allergy prep ordered
MRI with contrast tomorrow and dialysis soon after
Assessment / Plan
Assessment / Plan
69-year-old man presented to the hospital with PICC line problem. He is at [facility] and they could not flush the PICC line. He has been having some aching pain for the past few days. No edema. Patient is in the middle of a 6-week course of
ceftriaxone 2 g twice daily and ampicillin 2 g twice daily per infectious disease recommendation after hospitalization in April for osteomyelitis/discitis.At discharge patient's med list had antibiotics listed under activity /restriction and not
under medications.
Nursing at [facility] had to call [place] and it must have been a data coordinator error where patient got ceftazidime instead of ceftriaxone for past 10 days.
Chest x-ray-no acute changes
Echo 05/05/2025-technically difficult study. Normal LV size, systolic function. Mild concentric LVH. EF 50 to 55%. No vegetation.
Ultrasound left upper extremity PICC line with a small nonocclusive clot along the catheter in the left axillary vein.
Patient has a lot of pain not relieved by most of the medicines ordered. Dilaudid ordered today. He continues with leg spasms and back pain
CVS: S1-S2 normal
Chest: CTA B/L
Abdomen: Soft, NT / Bowel sounds present
Extremities: No edema
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
# Nonfunctional PICC line left upper extremity with a small nonocclusive clot along the catheter in the left axillary vein.
Interventional radiology to place a tunneled PICC line catheter
ER discussed with hematology who recommended taking PICC line out and continuing Eliquis. Picc out
Discussed with IR. No need to hold Eliquis for the procedure
Continue antibiotics via peripheral line now
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
Blood cultures since 05/05/2025-negative
Currently on ceftriaxone and ampicillin-planned antibiotics through 06/16/2025, extended through 8-2-2
Patient's outpatient records say that he is on ceftazidime 2 g IV every 12 hours.
Changed back to ceftriaxone repeat blood cultures were ordered yesterday. Patient refused therefore ordered again today and was drawn
With increasing pain we will repeat MRI with contrast. Discussed with infectious disease, nephrology and radiology
Radiology feels that contrast will be helpful to look for an abscess CT scan with dye will be much less sensitive.
Infectious disease consult appreciated
# Right heel ulcer-seen by Dr. Obregon from podiatry. Patient uses his heels to push up in the bed which is likely causing this strict offloading discussed with Uriel zurita.
Patient had arteriogram, right lower extremity angiogram, AIRLINE RESERVATION AGENT and stent of the popliteal, PT and shockwave to tibial peroneal trunk and posterior tibial by Dr. Willams on 06/01/2025
Foot is warm and pulses palpable with Doppler.
# Anemia of chronic disease-Also had bleeding from right upper extremity AV graft status post fistulogram with ballooning and stent 05/18/2025. Received 1 unit of blood
# Paroxysmal atrial fibrillation/flutter-continue metoprolol and Eliquis
# History of coronary artery disease with CABG 2009 and also history of PCI LAD 2005, VG to OM 2022, PCI ISR VG to OM 2023
# Peripheral artery disease with history
Right SFA and popliteal artery angioplasty and stent 2015
Left lower extremity angioplasty and left SFA and popliteal artery angioplasty with Balloon 2017
Left femoral endarterectomy with left femoropopliteal bypass 2018
Continue Plavix, statin
# End-stage renal disease on hemodialysis- HD Saturday
# Systemic hypertension-on Amlodipine and Metoprolol
# Hyperlipidemia-continue Zetia, Statin
# Chronic hypotension on Midodrine
# Diabetes-on Ozempic as outpatient Sundays
Accu-Cheks and sliding scale coverage
# H/O Staph bacteremia 01/2024
# COPD-stable
# History of CVA
# Fatty liver
# History of traumatic frontal Subdural Hematoma-2019 with leg weakness
# Sleep apnea not on CPAP as outpatient. Pt says he was told he doesn't need.
# Depression/anxiety on as needed Lorazepam, Abilify, Sertraline
# ADHD on methylphenidate
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 Guzman.
# Secondary hyperparathyroidism secondary to end-stage renal disease
# Spinal stenosis with history of Lumbar laminectomy
# History of substance abuse in the past
# Right bundle branch block
# Ambulatory dysfunction
# History of gout
# GERD-Pepcid
# Obesity
# Ex-smoker
# DVT prophylaxis-Eliquis
# CODE STATUS- Full CODE
Discussed with the patient regarding gadolinium and renal failure. Reasoning discussed. Patient is agreeable to proceed.
Discussed with vascular
Discussed with nephrology
Discussed with PACU nursing
Discussed with floor nursing
time spent over 50 min
Anticipated Discharge: > 48 hours
Subjective/Interval History
-
Date of Service: June 01, 2025
Objective Data
-
Labs:
Laboratory Results
06/01/25
04:51
WBC 13.7 H
Hgb 9.7 L
Hct 29.1 L
Plt Count 281
Sodium 139
Potassium 4.5
Chloride 102
Carbon Dioxide 28
BUN 37 H
Creatinine 5.1 H*
Glucose 111 H
Calcium 9.3
Vital Signs:
Vital Signs
Temp Pulse Resp BP Pulse Ox
97.4 F 92 13 152/68 93
06/01/25 10:04 06/01/25 11:30 06/01/25 11:30 06/01/25 11:30 06/01/25 11:30
I&O
05/31/25 06/01/25 06/02/25
06:59 06:59 06:59
Intake Total 120 / 120 480 / 480
Output Total 400 / 400 100 / 100
Balance -280 / -280 380 / 380
--- NOTE | 2025-06-01 11:54 | CM ---
Reviewed the chart notes. 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 CM continues to be available to patient/family and is monitoring medical
plan for needs at discharge.
Plan: Discharge to [facility] for rehab when medically stable. No auth required. Referral sent in [facility] and was accepted.
[2025-06-01 12:27] LABS: Glucose - Point of Care 149 mg/dl (70-99)
[2025-06-01] MEDS: ROCEPHIN 2000 MG IV ×2 (12:27→21:13)
[2025-06-01] MEDS: PLAVIX 75 MG PO (12:27)
[2025-06-01] MEDS: STERILE WATER FOR INJECTION 20 ML IV ×2 (12:27→21:13)
[2025-06-01] MEDS: ZETIA 10 MG PO (12:28)
[2025-06-01] MEDS: NORVASC 5 MG PO (12:28)
[2025-06-01] MEDS: TOPROL XL 25 MG PO (12:28)
[2025-06-01] MEDS: ZOLOFT 100 MG PO ×2 (12:28→21:14)
[2025-06-01] MEDS: VITAMIN C 500 MG PO (12:28)
[2025-06-01] MEDS: RITALIN PO (12:31)
--- NOTE | 2025-06-01 12:35 | W.PN.ID1 ---
Date of Service
Date of Service: June 01, 2025
Today's Communication
Continue current antibiotics.
Assessment / Plan
Leukocytosis
Low back pain 2* L1-2 discitis / vertebral osteomyelitis
Bacteremia with E. faecalis
- cleared
Constipation / obstipation
Elevated ESR
Elevated CRP
pA-fib
CML
COPD
Hx CVA
HTN
HLD
DM type II
CAD; Hx OR
ESRD�HD
Obesity
Recommendations:
White count remains elevated, but appears stable. ?reactive
Blood cultures (05/03/25) with E. faecalis. Repeat blood cultures (05/05, 05/07) finalized and without growth.
MRI findings compatible with discitis and osteomyelitis at L1-2. Possible paraspinal inflammation also noted.
Prior TTE nondiagnostic.
Patient previously on a course of ampicillin and ceftriaxone through 06/16/25.
- It appears that the patient was transitioned to ceftazidime upon transfer to the SNF, and has remained on it for the past 10 days.
- At this time, the patient has resumed ceftriaxone.
Would extend the current course of antibiotics (ampicillin, ceftriaxone) through 06/26/2025.
Repeat ESR and CRP improved.
Given ongoing low back pain, may consider repeat MRI to assess for any extension or resolution of prior findings.
Follow white count and temperature curve.
���������������������������������������������������������
Chief Complaint
-: Other (Discitis/osteomyelitis)
Subjective / Review of Systems
Review of Systems: No Fever
Vital Signs / Physical Exam
Vital Signs
Vital Signs
Temp Pulse Resp BP Pulse Ox
98.2 F 91 16 134/84 94
06/01/25 12:25 06/01/25 12:28 06/01/25 12:25 06/01/25 12:28 06/01/25 12:25
Physical Exam
Constitutional: No Acute Distress and Comfortable
Cardiovascular: Regular Rate and S1/S2
Pulmonary: Clear
Gastrointestinal: Soft, Non Tender and Non Distended
Extremities: Negative Edema
Neurological: AO x 3
Objective Data
Lab Data
Lab Results
06/01/25 04:51
06/01/25 04:51
ESR Cancelled 05/31/25 11:19
Estimated Creat Clear 13 ml/min 06/01/25 04:51
C-Reactive Protein Cancelled 05/31/25 11:19
Most recent labs reviewed.
Micro Results:
05/31/25 09:06 Blood Culture - Preliminary
Blood/Venous No Growth in 24 hours- Final report to follow
Imaging:
05/30/2025 X-ray right foot: No radiographic evidence of osteomyelitis.
05/04/2025 MRI lumbar spine without contrast: Findings compatible with discitis and osteomyelitis at L1-2. There is evidence for paraspinal inflammation with probable paraspinal abscesses. No evidence for epidural extension or inflammatory process,
with no evidence for epidural phlegmon or abscess.
05/03/2025 CT abdomen/pelvis without contrast: Moderate colonic stool burden without evidence of obstruction. Prior L1-L5 posterior spinal fusion noted. There are endplate irregularities with mild surrounding paraspinal soft tissue
thickening/stranding at the L1-L2 intervertebral space which is concerning for discitis or osteomyelitis. A dedicated MRI with and without contrast may be considered as clinically indicated.
[2025-06-01] MEDS: BACTROBAN 2% OINTMENT TOPICAL (12:43)
[2025-06-01] MEDS: OXYCONTIN (CONTROLLED RELEASE) 10 MG PO ×2 (13:12→21:13)
[2025-06-01] MEDS: APRESOLINE 5 MG IV (15:21)
[2025-06-01] MEDS: PEPCID 10 MG PO (17:20)
--- NOTE | 2025-06-01 17:23 | W.PN.NEPH.PH ---
Today's Communication / Plan
-
HD 2nd shift
Assessment/Plan
-
Impression
Non-functional PICC line from occlusion, now removed
Recent Enterococcus faecalis bacteremia secondary to vertebral osteomyelitis/discitis L1-L2
IV antibiotics through 06-16-25
Recent AV fistula bleed, patent and functional
ESRD MWF, [facility]
A-fib
DM2
CAD/CABG
Anemia
PAD
RUE AVF/ligated LUE AVG
Hyperphosphatemia
HTN
Diabetic neuropathy
Secondary hyperparathyroidism
Plan
s/p Tunneled PICC left IJ on 05/31
IV antibiotics (ceftriaxone and ampicillin) through 06-16-25.
AV fistula patent and functional.
HD tomorrow.
Blood pressure high possible pain related
Maintain phosphate binders for hyperphosphatemia
Appropriate fluid restrictions and sodium and potassium restrictions
s/p angio today with angioplasty of rt pop art
for MRI of foot tomorrow and then HD
-
-
Date of Service: June 01, 2025
CC / HPI / ROS
-
Chief Complaint:
ESRD
History of Present Illness:
ESRD on Saturday schedule
Hemodynamically stable
Remains on ampicillin for Enterococcus faecalis bacteremia
no fever, leucocytosis up at 13.7k
Review of Systems:
c/o back cramping
No chest pain or shortness of breath
right foot pain
Labs
-
Labs:
WBC 13.7 10^3/uL (4.8-10.8) H 06/01/25 04:51
RBC 3.06 10^6/uL (4.70-6.10) L 06/01/25 04:51
Hgb 9.7 g/dL (13.0-18.0) L 06/01/25 04:51
Hct 29.1 % (39.0-52.0) L 06/01/25 04:51
Plt Count 281 10^3/uL (130-400) 06/01/25 04:51
Sodium 139 mmol/L (135-145) 06/01/25 04:51
Potassium 4.5 mmol/L (3.5-5.1) 06/01/25 04:51
Chloride 102 mmol/L (98-107) 06/01/25 04:51
Carbon Dioxide 28 mmol/L (22-30) 06/01/25 04:51
BUN 37 mg/dl (9-20) H 06/01/25 04:51
Creatinine 5.1 mg/dL (0.7-1.3) H* 06/01/25 04:51
eGFR 11.60 06/01/25 04:51
Glucose 111 mg/dl (70-99) H 06/01/25 04:51
Calcium 9.3 mg/dl (8.4-10.2) 06/01/25 04:51
Physical Exam
-
Vital Signs:
Vital Signs
Temp Pulse Resp BP Pulse Ox
98.3 F 97 16 166/64 96
06/01/25 13:55 06/01/25 15:21 06/01/25 13:55 06/01/25 15:21 06/01/25 13:55
Cardiovascular:: Regular rate and rhythm
Respiratory:: Bilateral: CTA
Lung Excursion:: Normal
Abdomen:: Nontender and Soft
Bowel Sounds:: Normal
Extremity Edema:: None: Bilateral:
Luther Catheter: No
Other Findings::
AVF +thrill
[2025-06-01 17:34] LABS: Glucose - Point of Care 200 mg/dl (70-99)
[2025-06-01] MEDS: MEDROL 32 MG PO (17:35)
[2025-06-01] MEDS: NOVOLOG FLEXPEN-LOW RESISTANCE 1 UNITS SC (17:36)
--- NOTE | 2025-06-01 18:34 | VATNOTE ---
Vat rounds: Called to assess left ij tunneled picc dressing. picc dressing saturated with blood from insertion site. Ultrafoam applied with new dressing change. Pressure applied using 1L IVF bag. Vat to monitor and follow.
[2025-06-01] MEDS: NORVASC PO (21:11)
[2025-06-01] MEDS: LIPITOR 80 MG PO (21:13)
[2025-06-01] MEDS: SENOKOT 17.2 MG PO (21:13)
[2025-06-01] MEDS: ATIVAN 1 MG PO (21:13)
[2025-06-01 22:18] LABS: Glucose - Point of Care 131 mg/dl (70-99)
[2025-06-01] MEDS: DILAUDID 2 MG PO (23:18)
[2025-06-02] VITALS (7 sets, daily range): BP systolic 116–184; BP diastolic 49–115; BMI 28.0
[2025-06-02] MEDS: ROXICODONE 10 MG PO (01:21)
[2025-06-02] MEDS: MELATONIN 5 MG PO (01:27)
[2025-06-02] MEDS: TYLENOL 650 MG PO (03:56)
[2025-06-02] MEDS: FLEXERIL 5 MG PO ×4 (05:06→23:50)
[2025-06-02] MEDS: MEDROL 32 MG PO (06:38)
--- NOTE | 2025-06-02 07:32 | W.PN.VS ---
Today's Communication / Plan
-
doing well post agram
follow up as outpatient
Assessment/Plan
-
right heal ulcer
- doing well post agram
- positive pulse
- follow up as outpatient
Subjective Data
-
Date of Service: June 02, 2025
doing well
still with spasms of thigh
Objective Data
-
Vital Signs
Temp Pulse Resp BP Pulse Ox
98.2 F 86 18 117/49 100
06/02/25 03:10 06/02/25 03:10 06/02/25 03:10 06/02/25 03:10 06/02/25 05:14
Intake and Output
06/01/25 06/02/25 06/03/25
06:59 06:59 06:59
Intake Total 480 / 480 1150 / 1150
Output Total 100 / 100
Balance 380 / 380 1150 / 1150
Intake:
Oral fluids 480 / 480 900 / 900
IV fluids (Total) 150 / 150
NSS 150 / 150
IV piggybacks 100 / 100
Output:
Urine, Voided 100 / 100
Lab Results
06/01/25 04:51
06/01/25 04:51
Calcium 9.3 mg/dl (8.4-10.2) 06/01/25 04:51
Physical Exam
-
groin puncture site intact
+ PT pulse right foot
[2025-06-02 07:48] LABS: Glucose - Point of Care 121 mg/dl (70-99)
[2025-06-02] MEDS: TOPROL XL 25 MG PO (07:49)
[2025-06-02] MEDS: SENOKOT 17.2 MG PO ×2 (07:50→21:01)
[2025-06-02] MEDS: RITALIN PO (07:51)
[2025-06-02] MEDS: ZETIA 10 MG PO (07:52)
[2025-06-02] MEDS: MIRALAX 17 GRAMS PO (07:52)
[2025-06-02] MEDS: ELIQUIS 5 MG PO ×2 (07:53→21:01)
[2025-06-02] MEDS: PLAVIX 75 MG PO (07:53)
[2025-06-02] MEDS: COLACE PO (07:53)
[2025-06-02] MEDS: VITAMIN C 500 MG PO (07:53)
[2025-06-02] MEDS: ZOLOFT 100 MG PO ×2 (07:53→21:01)
[2025-06-02] MEDS: OXYCONTIN (CONTROLLED RELEASE) 10 MG PO ×2 (07:53→21:01)
[2025-06-02] MEDS: NORVASC PO (07:54)
[2025-06-02] MEDS: ROCEPHIN 2000 MG IV ×2 (07:55→21:02)
[2025-06-02] MEDS: STERILE WATER FOR INJECTION 20 ML IV ×2 (07:56→21:02)
[2025-06-02] MEDS: NEPHROCAP 1 CAPSULE PO (08:02)
[2025-06-02] MEDS: NOVOLOG FLEXPEN-LOW RESISTANCE SC ×2 (08:17→18:11)
[2025-06-02] MEDS: AMPICILLIN 108 MG IV ×2 (10:05→21:49)
[2025-06-02] MEDS: BACTROBAN 2% OINTMENT 1 APPLIC TOPICAL (10:06)
--- NOTE | 2025-06-02 10:15 | W.PN.ID1 ---
Date of Service
Date of Service: June 02, 2025
Today's Communication
Continue current antibiotics.
Assessment / Plan
Leukocytosis
Low back pain 2* L1-2 discitis / vertebral osteomyelitis
Bacteremia with E. faecalis
- cleared
Constipation / obstipation
Elevated ESR
Elevated CRP
pA-fib
CML
COPD
Hx CVA
HTN
HLD
DM type II
CAD; Hx [place]
ESRD�HD
Obesity
Recommendations:
White count remains elevated, but appears stable. ?reactive
Blood cultures (05/03/25) with E. faecalis. Repeat blood cultures (05/05, 05/07) finalized and without growth.
MRI findings on 05/04/25 compatible with discitis and osteomyelitis at L1-2. Possible paraspinal inflammation also noted.
Prior TTE nondiagnostic.
Patient previously on a course of ampicillin and ceftriaxone through 06/16/25.
- Patient was placed on ceftazidime upon admission to the SNF (rather than ceftriaxone), and has remained on it for the past 10 days.
- At this time, the patient has resumed ceftriaxone.
Would extend the current course of antibiotics (ampicillin, ceftriaxone) through 06/26/2025.
Repeat ESR and CRP improved.
Given ongoing low back pain, pt for repeat MRI to assess for any extension or resolution of prior findings.
Follow white count and temperature curve.
���������������������������������������������������������
Chief Complaint
-: Other (Discitis/osteomyelitis)
Subjective / Review of Systems
Patient still with intermittent back pain.
Vital Signs / Physical Exam
Vital Signs
Vital Signs
Temp Pulse Resp BP Pulse Ox
98.1 F 87 18 116/77 95
06/02/25 07:35 06/02/25 07:49 06/02/25 07:35 06/02/25 07:54 07/09/25 07:35
Physical Exam
Constitutional: No Acute Distress, Comfortable, Chronically Ill and Non-toxic
Eyes: Sclera Anicteric
Cardiovascular: Regular Rate and S1/S2
Pulmonary: Clear
Gastrointestinal: Soft, Non Tender and Non Distended
Extremities: Negative Edema
Wound: Other (Right heel with unstageable pressure wound.)
Neurological: AO x 3
Psychological: Calm
Objective Data
Lab Data
ESR Cancelled 05/31/25 11:19
Estimated Creat Clear 13 ml/min 06/01/25 04:51
C-Reactive Protein Cancelled 05/31/25 11:19
Most recent labs reviewed.
Micro Results:
05/31/25 09:06 Blood Culture - Preliminary
Blood/Venous No Growth in 48 hours- Final report to follow
Imaging:
05/30/2025 X-ray right foot: No radiographic evidence of osteomyelitis.
05/04/2025 MRI lumbar spine without contrast: Findings compatible with discitis and osteomyelitis at L1-2. There is evidence for paraspinal inflammation with probable paraspinal abscesses. No evidence for epidural extension or inflammatory process,
with no evidence for epidural phlegmon or abscess.
05/03/2025 CT abdomen/pelvis without contrast: Moderate colonic stool burden without evidence of obstruction. Prior L1-L5 posterior spinal fusion noted. There are endplate irregularities with mild surrounding paraspinal soft tissue
thickening/stranding at the L1-L2 intervertebral space which is concerning for discitis or osteomyelitis. A dedicated MRI with and without contrast may be considered as clinically indicated.
[2025-06-02] MEDS: BENADRYL 50 MG IV (10:40)
--- NOTE | 2025-06-02 12:06 | W.PN.HOSP.TC ---
Today's Communication/Plan
-
HD now
MRI results pending.
Assessment / Plan
Assessment / Plan
69-year-old man presented to the hospital with PICC line problem. He is at [facility] and they could not flush the PICC line. He has been having some aching pain for the past few days. No edema. Patient is in the middle of a 6-week course of
ceftriaxone 2 g twice daily and ampicillin 2 g twice daily per infectious disease recommendation after hospitalization in April for osteomyelitis/discitis.At discharge patient's med list had antibiotics listed under activity /restriction and not
under medications.
Nursing at [facility] had to call [facility] and it must have been a die out worker error where patient got ceftazidime instead of ceftriaxone for past 10 days.
Chest x-ray-no acute changes
Echo 05/05/2025-technically difficult study. Normal LV size, systolic function. Mild concentric LVH. EF 50 to 55%. No vegetation.
Ultrasound left upper extremity PICC line with a small nonocclusive clot along the catheter in the left axillary vein.
Patient has a lot of pain not relieved by most of the medicines ordered. Dilaudid ordered today. He continues with leg spasms and back pain
CVS: S1-S2 normal
Chest: CTA B/L
Abdomen: Soft, NT / Bowel sounds present
Extremities: No edema
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
# Nonfunctional PICC line left upper extremity with a small nonocclusive clot along the catheter in the left axillary vein.
Interventional radiology to place a tunneled PICC line catheter
ER discussed with hematology who recommended taking PICC line out and continuing Eliquis. Picc out
Discussed with IR. No need to hold Eliquis for the procedure
Continue antibiotics via peripheral line now
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
Blood cultures since 05/05/2025-negative
Currently on ceftriaxone and ampicillin-planned antibiotics through 06/16/2025, extended through 8-2-2
Patient's outpatient records say that he is on ceftazidime 2 g IV every 12 hours.
Changed back to ceftriaxone repeat blood cultures were ordered yesterday. Patient refused therefore ordered again today and was drawn
With increasing pain we will repeat MRI with contrast. Discussed with infectious disease, nephrology and radiology
OxyContin 10 mg BID and Oxycodone PRN for pain
MRI completed, results pending.
# Right heel ulcer-seen by Dr. Obregon from podiatry. Patient uses his heels to push up in the bed which is likely causing this strict offloading discussed with Uriel zurita.
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 Willams on 06/01/2025
Foot is warm and pulses palpable with Doppler.
# Anemia of chronic disease-Also had bleeding from right upper extremity AV graft status post fistulogram with ballooning and stent 05/18/2025. Received 1 unit of blood
# Paroxysmal atrial fibrillation/flutter-continue metoprolol and Eliquis
# History of coronary artery disease with CABG 2009 and also history of PCI LAD 2005, VG to OM 2022, PCI ISR VG to OM 2023
# Peripheral artery disease with history
Right SFA and popliteal artery angioplasty and stent 2015
Left lower extremity angioplasty and left SFA and popliteal artery angioplasty with Balloon 2017
Left femoral endarterectomy with left femoropopliteal bypass 2018
Continue Plavix, statin
# End-stage renal disease on hemodialysis- HD Saturday. HD now after MRI
# Systemic hypertension-on Amlodipine and Metoprolol
# Hyperlipidemia-continue Zetia, Statin
# Chronic hypotension on Midodrine
# Diabetes-on Ozempic as outpatient Sundays
Accu-Cheks and sliding scale coverage
# H/O Staph bacteremia 01/2024
# COPD-stable
# History of CVA
# Fatty liver
# History of traumatic frontal Subdural Hematoma-2019 with leg weakness
# Sleep apnea not on CPAP as outpatient. Pt says he was told he doesn't need.
# Depression/anxiety on as needed Lorazepam, Abilify, Sertraline
# ADHD on methylphenidate
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 Guzman.
# Secondary hyperparathyroidism secondary to end-stage renal disease
# Spinal stenosis with history of Lumbar laminectomy
# History of substance abuse in the past
# Right bundle branch block
# Ambulatory dysfunction
# History of gout
# GERD-Pepcid
# Obesity
# Ex-smoker
# DVT prophylaxis-Eliquis
# CODE STATUS- Full CODE
Discussed with nephrology
Discussed with nursing
Anticipated Discharge: 24 - 48 hours
Subjective/Interval History
-
Date of Service: June 02, 2025
Objective Data
-
Labs:
Laboratory Results
06/02/25
07:58
WBC Pending
Hgb Pending
Hct Pending
Plt Count Pending
Sodium Pending
Potassium Pending
Chloride Pending
Carbon Dioxide Pending
Vital Signs:
Vital Signs
Temp Pulse Resp BP Pulse Ox
98.1 F 87 18 116/77 95
06/02/25 07:35 06/02/25 07:49 06/02/25 07:35 06/02/25 07:54 06/02/25 08:58
I&O
06/01/25 06/02/25 06/03/25
06:59 06:59 06:59
Intake Total 480 / 480 1150 / 1150 588 / 588
Output Total 100 / 100
Balance 380 / 380 1150 / 1150 588 / 588
[2025-06-02 12:14] LABS: Glucose - Point of Care 156 mg/dl (70-99)
[2025-06-02] MEDS: NOVOLOG FLEXPEN-LOW RESISTANCE 1 UNITS SC (12:23)
[2025-06-02] MEDS: DILAUDID 2 MG PO (12:33)
[2025-06-02 13:00] LABS: Hematocrit 28.2 % (39.0-52.0); Hemoglobin 9.4 g/dL (13.0-18.0); Mean Corp Hgb Conc. 33.3 g/dL (33.0-37.0); Mean Corpuscular Volume 95.3 fL (80.0-94.0); Platelet Count 315 10^3/uL (130-400); Red Cell Dist. Width 15.3 % (11.5-14.5)
[2025-06-02 13:29] LABS: Carbon Dioxide 19 mmol/L (22-30); Chloride 99 mmol/L (98-107); Potassium 6.0 mmol/L (3.5-5.1); Sodium 136 mmol/L (135-145)
[2025-06-02] MEDS: MANNITOL 25% 12.5 GRAMS IV (14:00)
--- NOTE | 2025-06-02 14:08 | W.PN.UPDATE ---
Addendum entered and electronically signed by Sierra Mccauley MD 06/02/25 14:11:
Spoke to patient's and updated regarding MRI and plan
Original Note:
Update Note
Progress Note Update
MRI noted
White count is likely secondary to steroids which patient got for allergy prep
Requested neurosurgery evaluation
LSO brace ordered per request
Potassium noted to be treated with dialysis
[2025-06-02 14:14] LABS: Nucleated Red Blood Cells % 0 % (-)
[2025-06-02] MEDS: FLEXBUMIN 25% FOR HEMODIALYSIS 12.5 GRAMS IV (14:15)
[2025-06-02] MEDS: RETACRIT 4000 UNITS IV (14:17)
--- NOTE | 2025-06-02 15:39 | WOUNDNOTE ---
WOC RN note: Tim Antony re: recommend an air mattress for patient at SNF if not already in place
--- NOTE | 2025-06-02 15:51 | CM ---
Reviewed the chart notes. Patient receiving HD. WOC RN recommending air mattress at facility. Facility updated on need for air mattress. CM continues to be available to patient/family and is monitoring medical plan for needs at discharge.
Plan: Discharge to [facility] when medically stable. No auth required.
--- NOTE | 2025-06-02 16:32 | W.PN.NEPH.HD ---
Assessment
-
Seen on HD. still with back pain. VSS, access ok
Progress Note - Hemodialysis
-
Date of Service: June 02, 2025
Duration: 30 minutes and 3 hours
Potassium Bath: 2
Calcium Bath: 2.5
Opti-Dialyzer: 160
Ultrafiltration: Other (2kg)
Blood Flow: 400
Dialysate Flow: 600
Heparin: 0
EPO: 4000 units
[2025-06-02] MEDS: PEPCID 10 MG PO (18:10)
[2025-06-02 18:12] LABS: Glucose - Point of Care 145 mg/dl (70-99)
--- NOTE | 2025-06-02 18:13 | W.PN.UPDATE ---
Update Note
Progress Note Update
stable heel dcubitus ulceration
Continue Iodoine
Continue offloading
Will monitor
--- NOTE | 2025-06-02 18:13 | CON.NS ---
Consultation
-
Date/Time Consultation Performed: 06/02/2025; 18:15
Performing Provider: Alfredo
Chief Complaint
History of Present Illness
This is a neurosurgical consultation on a 69-year-old gentleman, known to neurosurgery service.
Active medical issues include end-stage renal disease on hemodialysis, peripheral vascular disease status post angioplasty during this hospitalization, diabetes, and most recently Enterococcus faecalis bacteremia with subsequent seeding to the
lumbar spine, resulting in vertebral osteomyelitis/discitis at L1/L2.
He was seen by Dr. Wei on 05/07/2025. During that hospitalization, he was admitted initially for bleeding from his AV fistula site. He ultimately was found to be bacteremic with Enterococcus faecalis, and imaging demonstrated
osteomyelitis/discitis at L1/L2. He had significant mount of back pain at that time with movement. He also had an infected foot. He has a history of undergoing lumbar fusion in the past twice, the most recent being 2015. Imaging demonstrated
that he had a prior existing fusion from L2-L5, and he had a unilateral right-sided instrumented fusion connected to the previous fusion at L1-L2. At that time, he had elevated ESR, CRP. No evidence of epidural abscess was noted. He also had
evidence of bilateral psoas muscles. Recommendations were made to continue with a full course of IV antibiotics and follow-up thereafter. Patient was subsequently discharged on 05/20/2025. Patient then presented again on 05/25/2025. He was noted to
have bleeding from his PICC line. He was then subsequent discharged. He then presented again on 05/28/2025 with elevated creatinine level. He was then ultimately discharged back to his facility. He presented again on 05/30/2025 due to an issue
regarding his PICC line. Also there was noted to be discrepancy between his antibiotic prescribed versus administered. It was advised that he be treated with a 6-week course of ceftriaxone, and ampicillin. However, it appears that he may have
been getting ceftazidime instead of ceftriaxone.
During this hospitalization, patient has undergone right lower extremity angioplasty and lithotripsy. Given his ongoing back pain, repeat MRI was ordered.
It does appear that his ESR, CRP have improved. He has also resumed his originally prescribed ceftriaxone from the ceftazidime that he had been getting upon admission to the custodial facility.
He is also being followed for right heel ulcer by podiatry, which is being managed both by podiatry, as well as vascular surgery given significant peripheral vascular disease, status post angioplasty. He also has end-stage renal disease, and is on
hemodialysis 3 times a week.
Patient seen examined. He reports the back pain is essentially stable, and no worse but not better since he was diagnosed with his osteomyelitis/discitis in mid April. He does report that he has chronic posterior thigh pain, but reports that he
does have anterior thigh pain/dysesthesias which may be new or worsening from previous. He denies any weakness in the lower extremities.
Review of Systems
-
10 point review of systems including constitutional, ENT, cardiovascular, respiratory, GI, , neurologic, neurologic, hematologic, as musculoskeletal was performed, and was negative except for as stated in HPI.
Medication and Allergies
Home Medications
Home Medications
�Medication �Instructions �Recorded
melatonin 5 mg tablet 5 mg PO HSPRN PRN sleep 04/06/19
atorvastatin 80 mg tablet 80 mg PO HS High cholesterol 01/25/21
clopidogrel 75 mg tablet (Plavix) 75 mg PO DAILY Blood Clot 02/19/24
Prevention/Tx
coQ10 (ubiquinol) 200 mg capsule 200 mg PO DAILY Supplement 02/19/24
semaglutide 0.25 mg or 0.5 mg (2 0.25 mg SC GRIMM Diabetes 02/19/24
mg/3 mL) subcutaneous pen injector
(Ozempic)
sertraline 100 mg tablet 100 mg PO BID depression/anxiety 02/19/24
vitamin B complex-vitamin C-folic 1 tab PO MOWEFR Supplement 02/19/24
acid 0.8 mg tablet (Nephro-Michelle)
apixaban 5 mg tablet (Eliquis) 5 mg PO BID #60 tabs 02/28/24
acetaminophen 325 mg tablet 650 mg PO Q4HPRN PRN mild 05/25/24
pain/fever >100
albuterol sulfate 90 mcg/actuation 2 puff inhalation R Q4HPRN PRN sob 05/25/24
aerosol inhaler
methylphenidate HCl 10 mg tablet 30 mg PO DAILY ADHD 07/07/24
ascorbic acid (vitamin C) 500 mg 500 mg PO DAILY Supplement 11/03/24
tablet (Vitamin C)
ezetimibe 10 mg tablet (Zetia) 10 mg PO DAILY High Cholesterol #0 11/04/24
tabs
aripiprazole 2 mg tablet (Abilify) 2 mg PO DAILY Mental Health/Anxiety 03/15/25
Held on 05/20/25.
Instructions: Resume on
06/17/25. Hold till you
follow up with your pcp given
history of TME likely
secondary to polypharmacy at
previous admission
loperamide 2 mg tablet 2 mg PO TIDPRN PRN diarrhea 03/15/25
calcium acetate 667 mg PO TIDWMEAL Kidney Disease 04/14/25
midodrine 5 mg tablet 5 mg PO Q4HPRN PRN SBP<100 #0 tabs 04/19/25
polyethylene glycol 3350 17 gram 17 g PO DAILYPRN PRN constipation 04/19/25
oral powder packet #0 ea
Enema Disposable 1 enema SD DAILY Constipation 05/03/25
bisacodyl 10 mg rectal suppository 10 mg SD DAILY PRN constipation 05/03/25
(Dulcolax (bisacodyl))
docusate sodium 100 mg capsule 100 mg PO BID Constipation 05/03/25
(Colace)
famotidine 10 mg tablet 10 mg PO DAILY Gastrointestinal 05/03/25
Issue
lorazepam 1 mg tablet 1 mg PO DAILY anxiety 05/03/25
magnesium hydroxide 400 mg/5 mL 400 mg PO DAILY PRN constipation 05/03/25
oral suspension (Milk of Magnesia)
mupirocin 2 % topical ointment 1 applic topical DAILY Skin Issues 05/03/25
sennosides 8.6 mg tablet (senna) 17.2 mg PO HS Constipation 05/03/25
amlodipine 5 mg tablet 5 mg PO BID #30 tabs 05/19/25
hydromorphone 2 mg tablet 2 mg PO Q8H PRN Moderate-severe 05/20/25
breakthrough pain 1 week #24 tabs
ampicillin sodium 2 gram 2 g IV Q12H Infection 05/30/25
intravenous solution
ceftazidime 2 gram intravenous 2 g IV Q12H Infection 05/30/25
solution
cyclobenzaprine 10 mg tablet 10 mg PO [id number] PRN spasm 05/30/25
metoprolol succinate 25 mg 25 mg PO DAILY Arrhythmia 05/30/25
tablet,extended release 24 hr
Allergies
Allergies
Allergy/AdvReac Type Severity Reaction Status Date / Time
Iodinated Contrast Media Allergy Nausea / Verified 05/28/25 01:09
Vomiting,
'panic
attack'
latex Allergy Itching Verified 05/28/25 01:09
morphine Allergy Itching Verified 05/28/25 01:09
Physical Exam
-
Exam:
Awake, alert, conversant.
Cranial nerves II to XII are grossly intact.
Motor: 5/5 strength bilaterally in the lower extremities in all muscle groups, specifically in bilateral hip flexors, knee extension.
Sensation: Symmetric and intact to light touch bilaterally in lower extremities.
Gait not tested
MRI of the lumbar spine performed with and without contrast on 06/02/2025 was reviewed. This was compared with previous MRI performed without contrast on May 04, 2025. There is evidence of STIR signal hyperintensity noted within the L1-L2 disc
space, as well as vertebral bodies. There is been some interval collapse of the vertebral bodies and disc space with mild retropulsion. Spinal canal is still patent. There is some spinal stenosis noted at L1-L2. There is also evidence of
hardware instrumentation noted at L1-L2 on the right and metal artifact is present secondary to this. No obvious evidence of epidural abscess or epidural collection is seen.
CT of the abdomen/pelvis performed on 05/03/2025 does demonstrate lucencies surrounding the right L1 screw indicating possibly pseudoarthrosis.
Problems
-
Problem Status Onset Code
DVT (deep venous thrombosis) Acute I82.409
Occluded PICC line Acute T82.898A
Assessment / Plan
-
This is a 69-year-old gentleman with extensive medical comorbidities, including currently being treated actively for Enterococcus faecalis bacteremia, end-stage renal disease on hemodialysis, peripheral vascular disease, status post right lower
extremity angioplasty yesterday, on Plavix and Eliquis who presents with persistent back pain, the setting of L1/L2 osteomyelitis, likely resulting from seeding to the spine from patient's bacteremia.
Fortunately, ESR, CRP are downtrending. Patient still has not completed prescribed/planned course of plans antibiotics.
MRI of the lumbar spine demonstrates Increased height loss at L1-L2 with slight retropulsion and moderate spinal stenosis at this level.
There is evidence of previous laminectomy noted at this level, but there has been progression of central, and bilateral foraminal stenosis, without any evidence of evolving epidural abscess.
Previous CT did demonstrate pseudoarthrosis or loosening of the right L1 screw.
At the present time, given no evidence of compressive infectious process within the spinal canal, but with evolving settling of the L1-L2 disc space and vertebral bodies, recommend LSO bracing when the patient is weightbearing. He has stable/intact
strength in bilateral hip flexors, knee extension.
Given that he has not completed a full course of antibiotics, and with his intact motor strength in lower extremities, and additionally given that he just recently underwent angioplasty of the right lower extremity, recommend medical/nonoperative
management of his back pain, spinal deformity until he completes his course of IV antibiotics, provided that his ESR/CRP continue to remain low, and he remains with a stable lower extremity motor exam.
If indeed ultimately he were to require revision of his complex spinal fusion, he will likely need to be cleared to come off of both Plavix, and Eliquis perioperatively, for approximately 10 days. In light of his most recent angioplasty, likely
this is not possible.
Therefore continue with pain control, suggest adding gabapentin 300 mg 3 times daily, as well as LSO bracing.
Follow-up with repeat imaging in approximately 4 to 6 weeks as previously planned, with outpatient follow-up with Dr. Wei once patient completes IV antibiotics. Continue to trend clinical response with ESR, CRP per infectious disease.
[2025-06-02 18:46] LABS: Potassium 4.1 mmol/L (3.5-5.1)
[2025-06-02] MEDS: COLACE 100 MG PO (21:00)
[2025-06-02] MEDS: LIPITOR 80 MG PO (21:01)
[2025-06-02] MEDS: ATIVAN 1 MG PO (21:01)
[2025-06-02] MEDS: NORVASC 5 MG PO (21:08)
[2025-06-02 21:09] LABS: Glucose - Point of Care 165 mg/dl (70-99)
[2025-06-03] MEDS: DILAUDID 2 MG PO ×3 (02:12→22:40)
[2025-06-03 05:01] LABS: Hematocrit 27.8 % (39.0-52.0); Hemoglobin 9.1 g/dL (13.0-18.0); Mean Corp Hgb Conc. 32.7 g/dL (33.0-37.0); Mean Corpuscular Volume 97.5 fL (80.0-94.0); Platelet Count 288 10^3/uL (130-400); Red Cell Dist. Width 15.4 % (11.5-14.5)
[2025-06-03] MEDS: FLEXERIL 5 MG PO ×4 (05:02→23:02)
[2025-06-03] MEDS: LOPRESSOR 2.5 MG IV (06:38)
[2025-06-03 07:00] VITALS: BP 147/95
--- NOTE | 2025-06-03 08:21 | W.PN.HOSP.TC ---
Today's Communication/Plan
-
will need spinal brace
bowel regimen
recheck CBC
Assessment / Plan
Assessment / Plan
69-year-old man presented to the hospital with PICC line problem. He is at [facility] and they could not flush the PICC line. He has been having some aching pain for the past few days. No edema. Patient is in the middle of a 6-week course of
ceftriaxone 2 g twice daily and ampicillin 2 g twice daily per infectious disease recommendation after hospitalization in April for osteomyelitis/discitis.At discharge patient's med list had antibiotics listed under activity /restriction and not
under medications.
Nursing at [facility] had to call [facility] and it must have been a internet manager error where patient got ceftazidime instead of ceftriaxone for past 10 days.
Chest x-ray-no acute changes
Echo 05/05/2025-technically difficult study. Normal LV size, systolic function. Mild concentric LVH. EF 50 to 55%. No vegetation.
Ultrasound left upper extremity PICC line with a small nonocclusive clot along the catheter in the left axillary vein.
Patient has a lot of pain not relieved by most of the medicines ordered. Dilaudid ordered today. He continues with leg spasms and back pain
CVS: S1-S2 normal
Chest: CTA B/L
Abdomen: Soft, NT / Bowel sounds present
Extremities: No edema
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
# Nonfunctional PICC line left upper extremity with a small nonocclusive clot along the catheter in the left axillary vein.
Interventional radiology placed a tunneled left internal jugular PICC line catheter 05/31
ER discussed with hematology who recommended taking PICC line out and continuing Eliquis. Picc out
Discussed with IR. No need to hold Eliquis for the procedure
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
Blood cultures since 05/05/2025-negative
Currently on ceftriaxone and ampicillin-planned antibiotics through 06/16/2025, extended through 8-2-2
Patient's outpatient records say that he is on ceftazidime 2 g IV every 12 hours.
Changed back to ceftriaxone repeat blood cultures were done 05/31 -NGTD.
With increasing pain repeated MRI with contrast: Progressive changes at L1-2 consistent with progressive discitis and osteomyelitis associated inferior L1 and superior L2 compression deformities have developed, as well has progressive instability
with interval development of 10 mm retrolisthesis of L1 relative to L2. Secondary progressive advanced central canal stenosis at L1-2 with bilateral lateral recess stenosis, despite evidence of previous laminectomy, and advanced bilateral foraminal
stenosis. No definitive epidural abscess. Right paraspinal abscess measuring 1.8 cm... Discussed with infectious disease, nephrology and radiology
OxyContin 10 mg BID and Oxycodone PRN for pain\\Input from Maile Fuentes appreciated: recommends LSO bracing with repeat imaging in 4-6 weeks and follow up with Dr. Pritchett as outpt
WBC 13.7-->25.0-->19.6k (received steroids for pre MRI)
# Right heel ulcer-seen by Dr. Obregon from podiatry. Patient uses his heels to push up in the bed which is likely causing this strict offloading discussed with Uriel zurita.
Patient had arteriogram, right lower extremity angiogram, REROLLER HAND and stent of the popliteal, PT and shockwave to tibial peroneal trunk and posterior tibial by Dr. Willams on 06/01/2025
Foot is warm and pulses palpable with Doppler.
# Anemia of chronic disease-Also had bleeding from right upper extremity AV graft status post fistulogram with ballooning and stent 05/18/2025. Received 1 unit of blood
# Paroxysmal atrial fibrillation/flutter-continue metoprolol and Eliquis
# History of coronary artery disease with CABG 2009 and also history of PCI LAD 2005, VG to OM 2022, PCI ISR VG to OM 2023
# Peripheral artery disease with history
Right SFA and popliteal artery angioplasty and stent 2015
Left lower extremity angioplasty and left SFA and popliteal artery angioplasty with Balloon 2017
Left femoral endarterectomy with left femoropopliteal bypass 2018
Continue Plavix, statin
# End-stage renal disease on hemodialysis- HD Saturday.
# Systemic hypertension-on Amlodipine and Metoprolol
# Hyperlipidemia-continue Zetia, Statin
# Chronic hypotension on Midodrine
# Diabetes-on Ozempic as outpatient Sundays
Accu-Cheks and sliding scale coverage
# H/O Staph bacteremia 01/2024
# COPD-stable
# History of CVA
# Fatty liver
# History of traumatic frontal Subdural Hematoma-2018 with leg weakness
# Sleep apnea not on CPAP as outpatient. Pt says he was told he doesn't need.
# Depression/anxiety on as needed Lorazepam, Abilify, Sertraline
# ADHD on methylphenidate
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 Guzman.
# Secondary hyperparathyroidism secondary to end-stage renal disease
# Spinal stenosis with history of Lumbar laminectomy
# History of substance abuse in the past
# Right bundle branch block
# Ambulatory dysfunction
# History of gout
# GERD-Pepcid
# Obesity
# Ex-smoker
# DVT prophylaxis-Eliquis
# CODE STATUS- Full CODE
Discussed with celso Robledo
reviewed with by phone 06/03
complex visit
Anticipated Discharge: > 48 hours
Subjective/Interval History
-
Date of Service: June 03, 2025
Awake, alert, conversant
Objective Data
-
Labs:
Laboratory Results
06/03/25
04:32
WBC 19.6 H
Hgb 9.1 L
Hct 27.8 L
Plt Count 288
Vital Signs:
Vital Signs
Temp Pulse Resp BP Pulse Ox
98.1 F 125 16 159/99 100
06/02/25 23:49 06/03/25 06:38 06/02/25 23:49 06/03/25 06:38 06/02/25 23:49
I&O
06/02/25 06/03/25 06/04/25
06:59 06:59 06:59
Intake Total 1150 / 1150 1268 / 1268
Output Total 50 / 50
Balance 1150 / 1150 1218 / 1218
Review of Systems
-
History Source: Patient and Family (reviewed with by phone)
Constitutional: Denies Fever
EENT: Reports No Symptoms Reported
Respiratory: Reports No Symptoms; Denies Trouble Breathing
Cardiac: Reports No Symptoms; Denies Chest Pain
Abdomen/GI: Reports Constipated
Musculoskeletal: Reports Other (back pain)
Physical Exam
-
General: Well Developed, Well Nourished, No Apparent Distress and Appears Chronically Ill
HEENT: Normocephalic, Atraumatic and Moist Mucous Membranes
Respiratory: Clear to Auscultation; Negative Wheezes, Rales or Rhonchi
Cardiac: Regular Rhythm and S1/S2
GI: Soft, Nontender and Nondistended
Musculoskeletal: No Clubbing, No Cyanosis and No Edema
Neuro: Awake, Alert and Oriented
[2025-06-03 08:22] LABS: Glucose - Point of Care 100 mg/dl (70-99)
[2025-06-03] MEDS: NOVOLOG FLEXPEN-LOW RESISTANCE SC ×2 (08:38→17:37)
[2025-06-03] MEDS: ZETIA 10 MG PO (08:39)
[2025-06-03] MEDS: SENOKOT 17.2 MG PO ×2 (08:39→21:00)
[2025-06-03] MEDS: COLACE 100 MG PO ×2 (08:39→21:00)
[2025-06-03] MEDS: TOPROL XL 25 MG PO (08:40)
[2025-06-03] MEDS: PLAVIX 75 MG PO (08:40)
[2025-06-03] MEDS: OXYCONTIN (CONTROLLED RELEASE) 10 MG PO ×2 (08:40→21:02)
[2025-06-03] MEDS: MIRALAX 17 GRAMS PO (08:40)
[2025-06-03] MEDS: ZOLOFT 100 MG PO ×2 (08:40→21:00)
[2025-06-03] MEDS: ELIQUIS 5 MG PO ×2 (08:41→21:00)
[2025-06-03] MEDS: RITALIN PO (08:42)
[2025-06-03] MEDS: ROCEPHIN 2000 MG IV ×2 (08:42→20:59)
[2025-06-03] MEDS: NORVASC 5 MG PO ×2 (08:42→21:00)
[2025-06-03] MEDS: BACTROBAN 2% OINTMENT 1 APPLIC TOPICAL (08:42)
[2025-06-03] MEDS: VITAMIN C 500 MG PO (08:42)
[2025-06-03] MEDS: STERILE WATER FOR INJECTION 20 ML IV ×2 (08:43→21:00)
[2025-06-03] MEDS: AMPICILLIN 108 MG IV ×2 (10:28→21:03)
--- NOTE | 2025-06-03 10:48 | VATNOTE ---
Biopatch and stat lock saturated with blood. Dressing changed. Quickclot Hemostatic Dressing and folded 4x4 gauze applied over insertion site for bleeding.
[2025-06-03 11:00] VITALS: BP 145/60
--- NOTE | 2025-06-03 11:14 | W.PN.NEPH.PH ---
Today's Communication / Plan
-
HD tomorrow
Assessment/Plan
-
Impression
Non-functional PICC line from occlusion, now removed
Recent Enterococcus faecalis bacteremia secondary to vertebral osteomyelitis/discitis L1-L2
IV antibiotics through 06-16-25
Recent AV fistula bleed, patent and functional
ESRD MWF, [facility]
A-fib
DM2
CAD/CABG
Anemia
PAD
RUE AVF/ligated LUE AVG
Hyperphosphatemia
HTN
Diabetic neuropathy
Secondary hyperparathyroidism
Plan
HD tomorrow
Continue antibiotics (ceftriaxone and ampicillin) through 06-16-25.
AV fistula patent and functional.
Maintain phosphate binders for hyperphosphatemia
Appropriate fluid restrictions and sodium and potassium restrictions
Spinal brace
-
-
Date of Service: June 03, 2025
CC / HPI / ROS
-
Chief Complaint:
ESRD
History of Present Illness:
ESRD on Saturday schedule
Hemodynamically stable
Remains on ampicillin for Enterococcus faecalis bacteremia
no fever
Tolerated dialysis yesterday
Review of Systems:
c/o back cramping
No chest pain or shortness of breath
Lower leg cramping
Labs
-
Labs:
WBC 19.6 10^3/uL (4.8-10.8) H 06/03/25 04:32
RBC 2.85 10^6/uL (4.70-6.10) L 06/03/25 04:32
Hgb 9.1 g/dL (13.0-18.0) L 06/03/25 04:32
Hct 27.8 % (39.0-52.0) L 06/03/25 04:32
Plt Count 288 10^3/uL (130-400) 06/03/25 04:32
Sodium 136 mmol/L (135-145) 06/02/25 12:21
Potassium 4.1 mmol/L (3.5-5.1) D 06/02/25 18:20
Chloride 99 mmol/L (98-107) 06/02/25 12:21
Carbon Dioxide 19 mmol/L (22-30) L 06/02/25 12:21
BUN 37 mg/dl (9-20) H 06/01/25 04:51
Creatinine 5.1 mg/dL (0.7-1.3) H* 06/01/25 04:51
eGFR 11.60 06/01/25 04:51
Glucose 111 mg/dl (70-99) H 06/01/25 04:51
Calcium 9.3 mg/dl (8.4-10.2) 06/01/25 04:51
Physical Exam
-
Vital Signs:
Vital Signs
Temp Pulse Resp BP Pulse Ox
98 F 93 18 147/97 96
06/03/25 07:00 06/03/25 08:40 06/03/25 07:00 06/03/25 08:40 06/03/25 07:00
Cardiovascular:: Regular rate and rhythm
Respiratory:: Bilateral: Coarse
Lung Excursion:: Normal
Abdomen:: Nontender and Soft
Bowel Sounds:: Normal
Extremity Edema:: None: Bilateral:
--- NOTE | 2025-06-03 11:55 | PN.CDI ---
CDI
- -
CDI:
Physician Documentation Request
Admit Date: 06/01/25 16:00
Dear Doctor Aaron,
Patient admitted with nonfunctional PICC line left upper extremity with a small nonocclusive clot along the catheter in the left axillary vein.
06/03 PN, 'Right heel ulcer.'
05/30 Nursing skin assessment,'Stage 2 right buttock pressure injury, POA....Unstageable right heel pressure injury, POA.'
Physician documentation of the type and location of wounds is required for compliant documentation. Based on the above clinical findings and your assessment, please provide the following in your progress note:
Type (etiology) of ulcer/wound:
- Pressure (decubitus) ulcer
- Other
- Unable to determine
For a pressure ulcer, please also include the stage* of the ulcer:
- Stage 1 - Skin intact, non-blanchable redness
- Stage 2 - Partial thickness loss of dermis, includes intact or open blister
- Stage 3 - Full thickness tissue not including bone, tendon or muscle
- Stage 4 - Full thickness tissue loss, including exposed bone, tendon or muscle
- Unstageable - Full thickness loss in which the base of the ulcer is covered by slough (yellow, silva, chinchilla, green or brown) and/or eschar (silva, brown or black) in the wound bed.
- Unable to determine
Use of terms such as suspected, likely, concern for, or probable (associated with a specific diagnosis that is being evaluated, monitored, or treated as if it exists) are acceptable and can be coded in the inpatient setting, when documented at the
time of discharge.
Thank you,
Malu SIMMONS,RN,CCDS
CDI Specialist
Available via [place] text
Please use your independent medical judgment in providing your response.
*Source: National Pressure Ulcer Advisory Panel (NPUAP)
[2025-06-03 12:35] LABS: Glucose - Point of Care 156 mg/dl (70-99)
[2025-06-03] MEDS: NOVOLOG FLEXPEN-LOW RESISTANCE 1 UNITS SC (12:52)
--- NOTE | 2025-06-03 14:29 | CM ---
Reviewed the chart notes. Per notes, extend the current course of antibiotics (ampicillin, ceftriaxone) through 06/26/2025. CM continues to be available to patient/family and is monitoring medical plan for needs at discharge.
Plan: Discharge back to [facility] when medically stable. No precert required per Shanique. Updated clinical sent via [facility].
--- NOTE | 2025-06-03 14:34 | W.PN.ID1 ---
Date of Service
Date of Service: June 03, 2025
Today's Communication
Continue current course of antibiotics.
Assessment / Plan
Leukocytosis
Low back pain 2* L1-2 discitis / vertebral osteomyelitis
Bacteremia with E. faecalis
- cleared 05/05/25
Constipation / obstipation
Elevated ESR
Elevated CRP
pA-fib
CML
COPD
Hx CVA
HTN
HLD
DM type II
CAD; Hx [place]
ESRD�HD
Obesity
Recommendations:
White count remains elevated, but appears stable. ?reactive
Blood cultures (05/03/25) with E. faecalis. Repeat blood cultures (05/05, 05/07) finalized and without growth.
MRI findings on 05/04/25 compatible with discitis and osteomyelitis at L1-2. Possible paraspinal inflammation also noted.
Prior TTE nondiagnostic.
Patient previously on a course of ampicillin and ceftriaxone through 06/16/25.
- Patient was placed on ceftazidime upon admission to the SNF (rather than ceftriaxone), and has remained on it for 10 days.
- At this time, the patient has resumed ceftriaxone.
Would extend the current course of antibiotics (ampicillin, ceftriaxone) through 06/26/2025.
Repeat ESR and CRP improved.
Follow white count and temperature curve.
���������������������������������������������������������
Chief Complaint
-: Other (Discitis/osteomyelitis)
Subjective / Review of Systems
Patient seen and examined. Notes ongoing back pain.
Review of Systems: No Fever
Vital Signs / Physical Exam
Vital Signs
Vital Signs
Temp Pulse Resp BP Pulse Ox
98.1 F 93 16 145/60 96
06/03/25 11:00 06/03/25 11:00 06/03/25 11:00 06/03/25 11:00 06/03/25 11:00
Physical Exam
Constitutional: No Acute Distress, Comfortable, Chronically Ill and Non-toxic
Eyes: Sclera Anicteric
Cardiovascular: Regular Rate and S1/S2
Pulmonary: Clear
Gastrointestinal: Soft, Non Tender and Non Distended
Extremities: Negative Edema
Wound: Other (Right heel with unstageable pressure wound.)
Neurological: AO x 3
Psychological: Calm
Objective Data
Lab Data
Lab Results
06/03/25 04:32
06/02/25 18:20
ESR Cancelled 05/31/25 11:19
Estimated Creat Clear 13 ml/min 06/01/25 04:51
C-Reactive Protein Cancelled 05/31/25 11:19
Most recent labs reviewed.
Micro Results:
05/31/25 09:06 Blood Culture - Preliminary
Blood/Venous No Growth in 72 hours- Final report to follow
Imaging:
06/02/2025 MRI lumbar spine with and without contrast: Progressive changes at L1-2 consistent with progressive discitis and osteomyelitis associated inferior L1 and superior L2 compression deformities have developed, as well has progressive
instability with interval development of 10 mm retrolisthesis of L1 relative to L2. Secondary progressive advanced central canal stenosis at L1-2 with bilateral lateral recess stenosis, despite evidence of previous laminectomy, and advanced
bilateral foraminal stenosis. No definitive epidural abscess. Right paraspinal abscess measuring 1.8 cm.
05/30/2025 X-ray right foot: No radiographic evidence of osteomyelitis.
05/04/2025 MRI lumbar spine without contrast: Findings compatible with discitis and osteomyelitis at L1-2. There is evidence for paraspinal inflammation with probable paraspinal abscesses. No evidence for epidural extension or inflammatory process,
with no evidence for epidural phlegmon or abscess.
05/03/2025 CT abdomen/pelvis without contrast: Moderate colonic stool burden without evidence of obstruction. Prior L1-L5 posterior spinal fusion noted. There are endplate irregularities with mild surrounding paraspinal soft tissue
thickening/stranding at the L1-L2 intervertebral space which is concerning for discitis or osteomyelitis. A dedicated MRI with and without contrast may be considered as clinically indicated.
[2025-06-03 15:00] VITALS: BP 140/89
--- NOTE | 2025-06-03 15:16 | W.PN.UPDATE ---
Update Note
Progress Note Update
stable heel decubitus ulceration
Continue Iodine
Continue offloading
Will monitor
[2025-06-03 17:24] LABS: Glucose - Point of Care 128 mg/dl (70-99)
[2025-06-03] MEDS: PEPCID 10 MG PO (17:38)
[2025-06-03 19:10] VITALS: BP 136/76
[2025-06-03] MEDS: ATIVAN 1 MG PO (21:02)
[2025-06-03] MEDS: LIPITOR 80 MG PO (21:02)
[2025-06-03 21:43] LABS: Glucose - Point of Care 168 mg/dl (70-99)
[2025-06-03] MEDS: MELATONIN 5 MG PO (22:40)
[2025-06-03 23:36] VITALS: BP 178/82
[2025-06-04] VITALS (10 sets, daily range): BP systolic 111–191; BP diastolic 58–98; BMI 28.2
[2025-06-04] MEDS: ROXICODONE 10 MG PO ×2 (03:51→13:36)
[2025-06-04] MEDS: FLEXERIL 5 MG PO ×3 (05:27→17:07)
[2025-06-04 07:09] LABS: Hematocrit 28.8 % (39.0-52.0); Hemoglobin 9.4 g/dL (13.0-18.0); Mean Corp Hgb Conc. 32.6 g/dL (33.0-37.0); Mean Corpuscular Volume 96.6 fL (80.0-94.0); Nucleated Red Blood Cells % 0 % (-); Platelet Count 270 10^3/uL (130-400); Red Cell Dist. Width 15.5 % (11.5-14.5)
[2025-06-04 07:51] LABS: Blood Urea Nitrogen 49 mg/dl (9-20); Calcium 8.3 mg/dl (8.4-10.2); Carbon Dioxide 23 mmol/L (22-30); Chloride 100 mmol/L (98-107); Estimated Creatinine Clearance 11 ml/min; Glucose 127 mg/dl (70-99); Potassium 4.5 mmol/L (3.5-5.1); Sodium 138 mmol/L (135-145); eGFR 9.18
[2025-06-04] MEDS: OXYCONTIN (CONTROLLED RELEASE) 10 MG PO ×2 (08:10→20:34)
[2025-06-04] MEDS: DILAUDID 2 MG PO ×2 (08:13→22:31)
--- NOTE | 2025-06-04 08:19 | VATNOTE ---
Dressing over left IJ tunneled PICC is clean, dry and intact. No evidence of any further bleeding after dressing change on 06/03.
[2025-06-04] MEDS: TOPROL XL 25 MG PO (08:44)
[2025-06-04 08:49] LABS: Glucose - Point of Care 162 mg/dl (70-99)
--- NOTE | 2025-06-04 08:54 | W.PN.ID1 ---
Date of Service
Date of Service: June 04, 2025
Today's Communication
Continue antibiotics.
Assessment / Plan
Leukocytosis
Low back pain 2* L1-2 discitis / vertebral osteomyelitis
Bacteremia with E. faecalis
- cleared 05/05/25
Constipation / obstipation
Elevated ESR
Elevated CRP
pA-fib
CML
COPD
Hx CVA
HTN
HLD
DM type II
CAD; Hx [place]
ESRD�HD
Obesity
Recommendations:
White count remains elevated, but appears stable. ?reactive
Blood cultures (05/03/25) with E. faecalis. Repeat blood cultures (05/05, 05/07) finalized and without growth.
MRI findings on 05/04/25 compatible with discitis and osteomyelitis at L1-2. Possible paraspinal inflammation also noted.
Prior TTE nondiagnostic.
Patient previously on a course of ampicillin and ceftriaxone through 06/16/25.
- Patient was placed on ceftazidime upon admission to the SNF (rather than ceftriaxone), and had remained on it for 10 days.
- At this time, the patient has resumed ceftriaxone.
Would extend the current course of ampicillin and ceftriaxone through 06/26/2025.
Repeat ESR and CRP improved.
Follow white count and temperature curve. Pain control per primary service.
���������������������������������������������������������
Chief Complaint
-: Other (Discitis/osteomyelitis. Hx Enterococcus faecalis bacteremia)
Subjective / Review of Systems
Patient seen and examined. Notes ongoing back spasms with lancinating pain.
Review of Systems: No Fever and No Chills
Vital Signs / Physical Exam
Vital Signs
Vital Signs
Temp Pulse Resp BP Pulse Ox
98.1 F 140 18 187/98 96
06/04/25 03:56 06/04/25 08:44 06/04/25 03:56 06/04/25 08:44 06/04/25 03:56
Physical Exam
Constitutional: Chronically Ill and Non-toxic
Eyes: No Conjunctival Hemorrhage and Sclera Anicteric
Cardiovascular: Regular Rate and S1/S2; Negative S3/S4
Pulmonary: Clear and Non Labored
Gastrointestinal: Soft, Non Tender and Non Distended
Extremities: Negative Edema or Erythema
Wound: Other (Right heel with unstageable pressure wound, dressed. No periwound erythema.)
Neurological: Awake and Alert
Psychological: Calm
Objective Data
Lab Data
Lab Results
06/04/25 06:43
06/04/25 06:43
ESR Cancelled 05/31/25 11:19
Estimated Creat Clear 11 ml/min 06/04/25 06:43
C-Reactive Protein Cancelled 05/31/25 11:19
Most recent labs reviewed.
Micro Results:
05/31/25 09:06 Blood Culture - Preliminary
Blood/Venous No Growth in 72 hours- Final report to follow
Imaging:
06/02/2025 MRI lumbar spine w & w/o : Progressive changes at L1-2 consistent with progressive discitis and osteomyelitis associated inferior L1 and superior L2 compression deformities have developed, as well has progressive instability with interval
development of 10 mm retrolisthesis of L1 relative to L2. Secondary progressive advanced central canal stenosis at L1-2 with bilateral lateral recess stenosis, despite evidence of previous laminectomy, and advanced bilateral foraminal stenosis. No
definitive epidural abscess. Right paraspinal abscess measuring 1.8 cm.
05/30/2025 X-ray right foot: No radiographic evidence of osteomyelitis.
05/04/2025 MRI lumbar spine without contrast: Findings compatible with discitis and osteomyelitis at L1-2. There is evidence for paraspinal inflammation with probable paraspinal abscesses. No evidence for epidural extension or inflammatory process,
with no evidence for epidural phlegmon or abscess.
05/03/2025 CT abdomen/pelvis without contrast: Moderate colonic stool burden without evidence of obstruction. Prior L1-L5 posterior spinal fusion noted. There are endplate irregularities with mild surrounding paraspinal soft tissue
thickening/stranding at the L1-L2 intervertebral space which is concerning for discitis or osteomyelitis. A dedicated MRI with and without contrast may be considered as clinically indicated.
[2025-06-04] MEDS: NOVOLOG FLEXPEN-LOW RESISTANCE 1 UNITS SC ×3 (09:07→17:11)
[2025-06-04] MEDS: RITALIN PO (09:09)
[2025-06-04] MEDS: DILAUDID 0.5 MG IV (09:09)
--- NOTE | 2025-06-04 09:45 | PTCARENOTE ---
Pt with BP of 231/86 this AM. Scheduled and PRN doses of pain medication and scheduled Metoprolol given. HR up into 160s at rest. MD made aware, one time IV dilaudid dose ordered and given. BP improved at 130/80 now, HR still sustaining in 140s.
aware, no new orders at this time.
[2025-06-04] MEDS: RETACRIT 4000 UNITS IV (10:00)
--- NOTE | 2025-06-04 11:02 | CM ---
Addendum entered by Marian Antony RN 06/04/25 11:07:
Corrections: Back to [facility] when medically stable.
Original Note:
Reviewed the chart notes. Patient receiving HD today. CM continues to be available to patient/family and is monitoring medical plan for needs at discharge.
Plan: Discharge back to [facility] when medically stable. No auth required.
--- NOTE | 2025-06-04 11:08 | W.PN.NEPH.HD ---
Assessment
-
pt seen during HD
vitals stable
high BPs likely pain related
UF as tolerates
abx through 06/26 per ID
pain control seem challenging
AVF functions fine
Progress Note - Hemodialysis
-
Date of Service: June 04, 2025
Duration: 30 minutes and 3 hours
Potassium Bath: 2
Calcium Bath: 2.5
Opti-Dialyzer: 160
Ultrafiltration: Other (1.5-2kg)
Blood Flow: 400
Dialysate Flow: 600
Heparin: no
EPO: 4000
[2025-06-04] MEDS: NORVASC 5 MG PO ×2 (12:01→20:38)
[2025-06-04] MEDS: COLACE 100 MG PO ×2 (12:01→20:34)
[2025-06-04] MEDS: MIRALAX 17 GRAMS PO (12:01)
[2025-06-04] MEDS: PLAVIX 75 MG PO (12:01)
[2025-06-04] MEDS: ZETIA 10 MG PO (12:01)
[2025-06-04] MEDS: ZOLOFT 100 MG PO ×2 (12:02→20:34)
[2025-06-04] MEDS: ELIQUIS 5 MG PO ×2 (12:02→20:34)
[2025-06-04] MEDS: SENOKOT 17.2 MG PO ×2 (12:02→20:34)
[2025-06-04] MEDS: VITAMIN C 500 MG PO (12:03)
[2025-06-04] MEDS: AMPICILLIN 108 MG IV ×2 (12:03→22:35)
[2025-06-04] MEDS: STERILE WATER FOR INJECTION 20 ML IV ×2 (12:04→20:35)
[2025-06-04] MEDS: ROCEPHIN 2000 MG IV ×2 (12:04→20:35)
[2025-06-04] MEDS: BACTROBAN 2% OINTMENT 1 APPLIC TOPICAL (12:04)
[2025-06-04 12:19] LABS: Glucose - Point of Care 150 mg/dl (70-99)
[2025-06-04] MEDS: RETACRIT IV (12:20)
[2025-06-04] MEDS: NEPHROCAP 1 CAPSULE PO (12:36)
[2025-06-04] MEDS: PEPCID 10 MG PO (17:07)
[2025-06-04 17:12] LABS: Glucose - Point of Care 158 mg/dl (70-99)
[2025-06-04] MEDS: APRESOLINE 5 MG IV (17:57)
--- NOTE | 2025-06-04 18:20 | W.PN.HOSP.TC ---
Today's Communication/Plan
-
obtain LSO brace from [facility]
Physical Therapy evaluation post brace
Trial of Neurontin 300 mg tid as per recommendation of Neurosurgery for pain control
Plan dc back to SNF following the above
Assessment / Plan
Assessment / Plan
69-year-old man presented to the hospital with PICC line problem. He is at [facility] and they could not flush the PICC line. He has been having some aching pain for the past few days. No edema. Patient is in the middle of a 6-week course of
ceftriaxone 2 g twice daily and ampicillin 2 g twice daily per infectious disease recommendation after hospitalization in April for osteomyelitis/discitis.At discharge patient's med list had antibiotics listed under activity /restriction and not
under medications.
Nursing at [facility] had to call [facility] and it must have been a proteomics scientist error where patient got ceftazidime instead of ceftriaxone for past 10 days.
Chest x-ray-no acute changes
Echo 05/05/2025-technically difficult study. Normal LV size, systolic function. Mild concentric LVH. EF 50 to 55%. No vegetation.
Ultrasound left upper extremity PICC line with a small nonocclusive clot along the catheter in the left axillary vein.
Patient has a lot of pain not relieved by most of the medicines ordered. Dilaudid ordered today. He continues with leg spasms and back pain
# Nonfunctional PICC line left upper extremity with a small nonocclusive clot along the catheter in the left axillary vein.
Interventional radiology placed a tunneled left internal jugular PICC line catheter 05/31
ER discussed with hematology who recommended taking PICC line out and continuing Eliquis. Picc out
Discussed with IR. No need to hold Eliquis for the procedure
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
Blood cultures since 05/05/2025-negative
Currently on ceftriaxone and ampicillin-planned antibiotics through 06/16/2025, extended through 06-26-25
Patient's outpatient records say that he is on ceftazidime 2 g IV every 12 hours.
Changed back to ceftriaxone repeat blood cultures were done 05/31 -NGTD.
With increasing pain repeated MRI with contrast: Progressive changes at L1-2 consistent with progressive discitis and osteomyelitis associated inferior L1 and superior L2 compression deformities have developed, as well has progressive instability
with interval development of 10 mm retrolisthesis of L1 relative to L2. Secondary progressive advanced central canal stenosis at L1-2 with bilateral lateral recess stenosis, despite evidence of previous laminectomy, and advanced bilateral foraminal
stenosis. No definitive epidural abscess. Right paraspinal abscess measuring 1.8 cm... Discussed with infectious disease, nephrology and radiology
OxyContin 10 mg BID and Oxycodone PRN for pain\\Input from Maile Fuentes appreciated: recommends LSO bracing with repeat imaging in 4-6 weeks and follow up with Dr. Pritchett as outpt
Consult placed to [facility] for LSO Brace. Once available to resume Physical Therapy with planned dc to SNF to complete abx regiment
WBC 13.7-->25.0-->19.6k (received steroids for pre MRI)-->17.3
# Right heel ulcer-seen by Dr. Obregon from podiatry. Patient uses his heels to push up in the bed which is likely causing this strict offloading discussed with Uriel zurita.
Patient had arteriogram, right lower extremity angiogram, DIRECTOR COLLEGE and stent of the popliteal, PT and shockwave to tibial peroneal trunk and posterior tibial by Dr. Willams on 06/01/2025
Foot is warm and pulses palpable with Doppler.
Stage 2 right buttock pressure injury, POA....Unstageable right heel pressure injury, POA.'
# Anemia of chronic disease-Also had bleeding from right upper extremity AV graft status post fistulogram with ballooning and stent 05/18/2025. Received 1 unit of blood
# Paroxysmal atrial fibrillation/flutter-continue metoprolol and Eliquis
# History of coronary artery disease with CABG 2009 and also history of PCI LAD 2005, VG to OM 2022, PCI ISR VG to OM 2023
# Peripheral artery disease with history
Right SFA and popliteal artery angioplasty and stent 2015
Left lower extremity angioplasty and left SFA and popliteal artery angioplasty with Balloon 2017
Left femoral endarterectomy with left femoropopliteal bypass 2018
Continue Plavix, statin
# End-stage renal disease on hemodialysis- HD Saturday.
# Systemic hypertension-on Amlodipine and Metoprolol
# Hyperlipidemia-continue Zetia, Statin
# Chronic hypotension on Midodrine
# Diabetes-on Ozempic as outpatient Sundays
Accu-Cheks and sliding scale coverage
# H/O Staph bacteremia 01/2024
# COPD-stable
# History of CVA
# Fatty liver
# History of traumatic frontal Subdural Hematoma-2018 with leg weakness
# Sleep apnea not on CPAP as outpatient. Pt says he was told he doesn't need.
# Depression/anxiety on as needed Lorazepam, Abilify, Sertraline
# ADHD on methylphenidate
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 Guzman.
# Secondary hyperparathyroidism secondary to end-stage renal disease
# Spinal stenosis with history of Lumbar laminectomy
# History of substance abuse in the past
# Right bundle branch block
# Ambulatory dysfunction
# History of gout
# GERD-Pepcid
# Obesity
# Ex-smoker
# DVT prophylaxis-Eliquis
#Pulse rate this morning increased to 140, no clear etiology. Over the course of the next hours slowly decreased and by the afternoon was back in the mid 80'
will follow for now
# CODE STATUS- Full CODE
Anticipated Discharge: > 48 hours
Subjective/Interval History
-
Date of Service: June 04, 2025
Still with a lot of pain
Objective Data
-
Labs:
Laboratory Results
06/04/25
06:43
WBC 17.3 H
Hgb 9.4 L
Hct 28.8 L
Plt Count 270
Sodium 138
Potassium 4.5
Chloride 100
Carbon Dioxide 23
BUN 49 H
Creatinine 6.2 H*
Glucose 127 H
Calcium 8.3 L
Vital Signs:
Vital Signs
Temp Pulse Resp BP Pulse Ox
98.2 F 87 16 184/79 98
06/04/25 17:57 06/04/25 17:57 06/04/25 17:57 06/04/25 17:57 06/04/25 17:57
I&O
06/03/25 06/04/25 06/05/25
06:59 06:59 06:59
Intake Total 1268 / 1268 1668 / 1668 558 / 558
Output Total 50 / 50 100 / 100 0 / 0
Balance 1218 / 1218 1568 / 1568 558 / 558
Review of Systems
-
History Source: Patient and Coordinated Provider
Constitutional: Denies Fever
EENT: Reports No Symptoms Reported
Respiratory: Reports No Symptoms; Denies Trouble Breathing
Cardiac: Reports No Symptoms; Denies Chest Pain
Abdomen/GI: Reports Constipated
Musculoskeletal: Reports Other (back pain)
Physical Exam
-
General: Well Developed, Well Nourished, No Apparent Distress and Appears Chronically Ill
HEENT: Normocephalic, Atraumatic and Moist Mucous Membranes
Respiratory: Clear to Auscultation; Negative Wheezes, Rales or Rhonchi
Cardiac: Regular Rhythm and S1/S2
GI: Soft, Nontender and Nondistended
Musculoskeletal: No Clubbing, No Cyanosis and No Edema
Neuro: Awake, Alert and Oriented
[2025-06-04] MEDS: MILK OF MAGNESIA 30 ML PO (19:37)
[2025-06-04 21:54] LABS: Glucose - Point of Care 127 mg/dl (70-99)
[2025-06-04] MEDS: NEURONTIN 300 MG PO ×2 (22:31→22:35)
[2025-06-04] MEDS: LIPITOR 80 MG PO ×2 (22:31→22:34)
[2025-06-05] MEDS: FLEXERIL 5 MG PO ×4 (00:51→17:16)
[2025-06-05] MEDS: ROXICODONE 10 MG PO (00:52)
[2025-06-05 03:22] VITALS: BP 149/89
[2025-06-05 06:00] VITALS: BMI 27.8
[2025-06-05 06:14] LABS: Hematocrit 28.9 % (39.0-52.0); Hemoglobin 9.4 g/dL (13.0-18.0); Mean Corp Hgb Conc. 32.5 g/dL (33.0-37.0); Mean Corpuscular Volume 97.3 fL (80.0-94.0); Nucleated Red Blood Cells % 0 % (-); Platelet Count 295 10^3/uL (130-400); Red Cell Dist. Width 15.9 % (11.5-14.5)
[2025-06-05 06:40] LABS: Blood Urea Nitrogen 35 mg/dl (9-20); Calcium 8.8 mg/dl (8.4-10.2); Carbon Dioxide 28 mmol/L (22-30); Chloride 101 mmol/L (98-107); Estimated Creatinine Clearance 16 ml/min; Glucose 116 mg/dl (70-99); Potassium 4.3 mmol/L (3.5-5.1); Sodium 139 mmol/L (135-145); eGFR 15.08
[2025-06-05 07:34] LABS: Glucose - Point of Care 138 mg/dl (70-99)
[2025-06-05 07:35] VITALS: BP 149/101
[2025-06-05] MEDS: ELIQUIS 5 MG PO ×2 (08:00→20:59)
[2025-06-05] MEDS: RITALIN 30 MG PO (08:00)
[2025-06-05] MEDS: OXYCONTIN (CONTROLLED RELEASE) 10 MG PO ×2 (08:00→21:00)
[2025-06-05] MEDS: ZETIA 10 MG PO (08:00)
[2025-06-05] MEDS: ZOLOFT 100 MG PO ×2 (08:01→20:59)
[2025-06-05] MEDS: VITAMIN C 500 MG PO (08:01)
[2025-06-05] MEDS: COLACE 100 MG PO ×2 (08:01→20:59)
[2025-06-05] MEDS: SENOKOT 17.2 MG PO ×2 (08:01→20:59)
[2025-06-05] MEDS: NORVASC 5 MG PO ×2 (08:01→21:03)
[2025-06-05] MEDS: STERILE WATER FOR INJECTION 20 ML IV ×2 (08:01→20:59)
[2025-06-05] MEDS: PLAVIX 75 MG PO (08:01)
[2025-06-05] MEDS: TOPROL XL 25 MG PO (08:01)
[2025-06-05] MEDS: ROCEPHIN 2000 MG IV ×2 (08:02→20:59)
[2025-06-05] MEDS: MIRALAX 17 GRAMS PO (08:02)
[2025-06-05] MEDS: BACTROBAN 2% OINTMENT 1 APPLIC TOPICAL (08:02)
[2025-06-05] MEDS: NOVOLOG FLEXPEN-LOW RESISTANCE SC (08:36)
[2025-06-05] MEDS: AMPICILLIN 108 MG IV ×2 (10:47→22:05)
[2025-06-05 11:00] VITALS: BP 164/80
--- NOTE | 2025-06-05 11:44 | W.PN.HOSP.TC ---
Today's Communication/Plan
-
await LSO brace and then DC
Assessment / Plan
Assessment / Plan
69yo M with PMHx ESRD on HD, hypotension, PAD s/p angioplasty, CAD s/p CABG and PCI, Afib on eliquis, DM, Hx of CVA, depression/anxiety, ADHD, myeloprolyferative d/o, Hx of substance abuse, gout, chronic ambulatory dysfunction, spinal stensosi s/p
lumbar laminectomy, L1/L2 osteomyelitis and diskitis on Abx 12/27 E.faecalis bacteremia initially planned until 06/16/25 came with occluded PICC with clot, had PICC replaced on 05/31/25, MRI back showed progressive changes, so ID extended Abx till
06/26/25. NeuroSx recommended LSO brace, pending delivery. Was seen by podiatry for R heal ulcer and had Aortogram, Right lower extremity angiogram , HVAC SPECIALIST and stent of popliteal, HVAC SPECIALIST and shockwave to tibioperoneal trunk and posterior tibial on 06/01/25
A/P:
#Occluded PICC
replaced by IRAD to L IJ tunelled cath on 05/31/25
#Acute on chronic L1-L2 diskitis, osteomyelitis with bacteremia
MRI showed Progressive changes at L1-2 consistent with progressive discitis and osteomyelitis associated inferior L1 and superior L2 compression deformities have developed
NeuroSx: with improvement in ESR/CRP, no evidence of central canal compromize recommended continuation of non-surgical mgmt. Also will need to be off ELiquis and Plavix for at least 10 days, but now with angioplasty -high risk
ID extended Abx to 06/26/25: cont ampicillin/ceftriaxone. Patient apparently was on ceftazidime in SNF for 10 days
follow ESR/CRP
#right heel decubitus ulceration
#PAD
Podiatry: offloading
VascSx: s/p angio on 06/01/25 - cont Plavix, Eliquis
#Stage 2 right buttock pressure injury, POA
#Unstageable right heel pressure injury, POA
wound care
DM type 2 with neuropathy
Accuchecks, DM diet, insulin SS
#ESRD on HD
nephro for HD
#Chronic anemia
Nephro for EPO
#CAD, stable
#hypotension
#essential HTN
#paroxysmal Afib
#COPD, not in exacerbation
#CML
#HLD
cont home meds
DVT ppx on ELiquis
Full code
I have spent at least 70min reviewing chart, test results, communication with consultants and providing direct patient care
Anticipated Discharge: 24 - 48 hours
Subjective/Interval History
-
Date of Service: June 05, 2025
Objective Data
-
Labs:
Laboratory Results
06/05/25
05:55
WBC 22.7 H
Hgb 9.4 L
Hct 28.9 L
Plt Count 295
Sodium 139
Potassium 4.3
Chloride 101
Carbon Dioxide 28
BUN 35 H
Creatinine 4.1 H*
Glucose 116 H
Calcium 8.8
Vital Signs:
Vital Signs
Temp Pulse Resp BP Pulse Ox
98.3 F 89 17 164/80 97
06/05/25 11:00 06/05/25 11:00 06/05/25 11:00 06/05/25 11:00 06/05/25 11:00
I&O
06/04/25 06/05/25 06/06/25
06:59 06:59 06:59
Intake Total 1668 / 1668 1038 / 1038
Output Total 100 / 100 100 / 100
Balance 1568 / 1568 938 / 938
Review of Systems
-
History Source: Patient
All other systems: Reviewed and negative
Physical Exam
-
General: No Apparent Distress
HEENT: Normocephalic
Respiratory: Clear to Auscultation
GI: Soft, Nontender and Nondistended
Neuro: Awake, Alert, Oriented and AO x 3
Psych: Calm
[2025-06-05] MEDS: DULCOLAX 10 MG RECTAL (11:46)
[2025-06-05 12:18] LABS: Glucose - Point of Care 177 mg/dl (70-99)
[2025-06-05] MEDS: TYLENOL 650 MG PO (12:20)
[2025-06-05] MEDS: NOVOLOG FLEXPEN-LOW RESISTANCE 1 UNITS SC ×2 (12:20→17:16)
--- NOTE | 2025-06-05 13:24 | W.PN.NEPH.PH ---
Today's Communication / Plan
-
HD saturday
Assessment/Plan
-
Impression
Non-functional PICC line from occlusion, now removed
Recent Enterococcus faecalis bacteremia secondary to vertebral osteomyelitis/discitis L1-L2
IV antibiotics through 06-16-25
Recent AV fistula bleed, patent and functional
ESRD MWF, [facility]
A-fib
DM2
CAD/CABG
Anemia
PAD
RUE AVF/ligated LUE AVG
Hyperphosphatemia
HTN
Diabetic neuropathy
Secondary hyperparathyroidism
Plan
HD Saturday
awaiting LSO brace
Continue antibiotics (ceftriaxone and ampicillin) through 06/26 per ID
AV fistula patent and functional.
Maintain phosphate binders for hyperphosphatemia
Appropriate fluid restrictions and sodium and potassium restrictions
-
-
Date of Service: June 05, 2025
CC / HPI / ROS
-
Chief Complaint:
ESRD
History of Present Illness:
ESRD on Saturday schedule
Hemodynamically stable
Remains on ampicillin for Enterococcus faecalis bacteremia
no fever
Tolerated dialysis yesterday
Review of Systems:
sleeping during visit
stil in back pain
Labs
-
Labs:
WBC 22.7 10^3/uL (4.8-10.8) H 06/05/25 05:55
RBC 2.97 10^6/uL (4.70-6.10) L 06/05/25 05:55
Hgb 9.4 g/dL (13.0-18.0) L 06/05/25 05:55
Hct 28.9 % (39.0-52.0) L 06/05/25 05:55
Plt Count 295 10^3/uL (130-400) 06/05/25 05:55
Sodium 139 mmol/L (135-145) 06/05/25 05:55
Potassium 4.3 mmol/L (3.5-5.1) 06/05/25 05:55
Chloride 101 mmol/L (98-107) 06/05/25 05:55
Carbon Dioxide 28 mmol/L (22-30) 06/05/25 05:55
BUN 35 mg/dl (9-20) H 06/05/25 05:55
Creatinine 4.1 mg/dL (0.7-1.3) H* 06/05/25 05:55
eGFR 15.08 06/05/25 05:55
Glucose 116 mg/dl (70-99) H 06/05/25 05:55
Calcium 8.8 mg/dl (8.4-10.2) 06/05/25 05:55
Physical Exam
-
Vital Signs:
Vital Signs
Temp Pulse Resp BP Pulse Ox
98.3 F 89 17 164/80 97
06/05/25 11:00 06/05/25 11:00 06/05/25 11:00 06/05/25 11:00 06/05/25 11:00
Cardiovascular:: Regular rate and rhythm
Respiratory:: Bilateral: CTA
Lung Excursion:: Normal
Abdomen:: Nontender and Soft
Bowel Sounds:: Normal
Extremity Edema:: None: Bilateral:
Luther Catheter: No
[2025-06-05 15:10] VITALS: BP 163/76
[2025-06-05 16:47] LABS: Glucose - Point of Care 164 mg/dl (70-99)
[2025-06-05] MEDS: APRESOLINE 5 MG IV (17:14)
[2025-06-05] MEDS: PEPCID 10 MG PO (17:15)
[2025-06-05] MEDS: NEURONTIN 300 MG PO (21:02)
[2025-06-05] MEDS: LIPITOR 80 MG PO (21:03)
[2025-06-05 21:23] LABS: Glucose - Point of Care 255 mg/dl (70-99)
[2025-06-05 23:06] VITALS: BP 135/71
[2025-06-06] MEDS: FLEXERIL 5 MG PO ×4 (00:07→17:01)
[2025-06-06 06:10] VITALS: BMI 28.2
[2025-06-06 06:28] LABS: Hematocrit 30.8 % (39.0-52.0); Hemoglobin 10.0 g/dL (13.0-18.0); Mean Corp Hgb Conc. 32.5 g/dL (33.0-37.0); Mean Corpuscular Volume 97.8 fL (80.0-94.0); Platelet Count 305 10^3/uL (130-400); Red Cell Dist. Width 16.1 % (11.5-14.5)
[2025-06-06 06:38] LABS: C-Reactive Protein 12.30 mg/L (0.0-10.00)
[2025-06-06 06:41] LABS: ALT (SGPT) 15 U/L (0-50); AST (SGOT) 17 U/L (17-59); Albumin 4.2 g/dl (3.5-5.0); Alkaline Phosphatase 94 U/L (38-126); Blood Urea Nitrogen 49 mg/dl (9-20); Calcium 9.3 mg/dl (8.4-10.2); Carbon Dioxide 26 mmol/L (22-30); Chloride 99 mmol/L (98-107); Estimated Creatinine Clearance 11 ml/min; Glucose 120 mg/dl (70-99); Potassium 4.5 mmol/L (3.5-5.1); Sodium 139 mmol/L (135-145); Total Protein 7.3 g/dl (6.3-8.2); eGFR 9.74
[2025-06-06 07:16] LABS: Nucleated Red Blood Cells % 0 % (-)
[2025-06-06 07:18] LABS: Glucose - Point of Care 145 mg/dl (70-99)
[2025-06-06 07:19] VITALS: BP 170/65
[2025-06-06] MEDS: NOVOLOG FLEXPEN-LOW RESISTANCE SC ×3 (07:44→17:10)
[2025-06-06] MEDS: ZOLOFT 100 MG PO ×2 (08:50→20:19)
[2025-06-06] MEDS: VITAMIN C 500 MG PO (08:50)
[2025-06-06] MEDS: RITALIN 30 MG PO (08:50)
[2025-06-06] MEDS: ZETIA 10 MG PO (08:50)
[2025-06-06] MEDS: SENOKOT 17.2 MG PO (08:50)
[2025-06-06] MEDS: ELIQUIS 5 MG PO ×2 (08:50→20:15)
[2025-06-06] MEDS: PLAVIX 75 MG PO (08:50)
[2025-06-06] MEDS: NORVASC 5 MG PO ×2 (08:51→20:16)
[2025-06-06] MEDS: COLACE 100 MG PO (08:51)
[2025-06-06] MEDS: ROCEPHIN 2000 MG IV ×2 (08:51→20:15)
[2025-06-06] MEDS: STERILE WATER FOR INJECTION 20 ML IV ×2 (08:51→20:15)
[2025-06-06] MEDS: MIRALAX 17 GRAMS PO (08:51)
[2025-06-06] MEDS: TOPROL XL 25 MG PO (08:51)
[2025-06-06] MEDS: OXYCONTIN (CONTROLLED RELEASE) 10 MG PO (08:51)
[2025-06-06] MEDS: BACTROBAN 2% OINTMENT 1 APPLIC TOPICAL (08:52)
[2025-06-06] MEDS: FLEET PHOSPHATE ENEMA-ADULT 135 ML RECTAL (08:53)
--- NOTE | 2025-06-06 09:42 | W.PN.HOSP.TC ---
Today's Communication/Plan
-
mildly somnolent with distended abd - no significant BM as per RN for days
Enema
XR abd
follow clinically
Decrease pain medications -suspect oversedation
Assessment / Plan
Assessment / Plan
69yo M with PMHx ESRD on HD, hypotension, PAD s/p angioplasty, CAD s/p CABG and PCI, Afib on eliquis, DM, Hx of CVA, depression/anxiety, ADHD, myeloprolyferative d/o, Hx of substance abuse, gout, chronic ambulatory dysfunction, spinal stensosi s/p
lumbar laminectomy, L1/L2 osteomyelitis and diskitis on Abx 12/27 E.faecalis bacteremia initially planned until 06/16/25 came with occluded PICC with clot, had PICC replaced on 05/31/25, MRI back showed progressive changes, so ID extended Abx till
06/26/25. NeuroSx recommended LSO brace, pending delivery. Was seen by podiatry for R heal ulcer and had Aortogram, Right lower extremity angiogram , COMMISSARY MANAGER and stent of popliteal, COMMISSARY MANAGER and shockwave to tibioperoneal trunk and posterior tibial on 06/01/25
A/P:
#Occluded PICC
replaced by IRAD to L IJ tunelled cath on 05/31/25
#Acute on chronic L1-L2 diskitis, osteomyelitis with bacteremia
MRI showed Progressive changes at L1-2 consistent with progressive discitis and osteomyelitis associated inferior L1 and superior L2 compression deformities have developed
NeuroSx: with improvement in ESR/CRP, no evidence of central canal compromize recommended continuation of non-surgical mgmt with LSO brace while weightbaring. Also will need to be off ELiquis and Plavix for at least 10 days, but now with angioplasty
-high risk
ID extended Abx to 06/26/25: cont ampicillin/ceftriaxone. Patient apparently was on ceftazidime in SNF for 10 days
follow ESR/CRP
#right heel decubitus ulceration
#PAD
Podiatry: offloading
VascSx: s/p angio on 06/01/25 - cont Plavix, Eliquis
#constipation
Enema
#Stage 2 right buttock pressure injury, POA
#Unstageable right heel pressure injury, POA
wound care
DM type 2 with neuropathy
Accuchecks, DM diet, insulin SS
#ESRD on HD
nephro for HD
#Chronic anemia
Nephro for EPO
#CAD, stable
#hypotension
#essential HTN
#paroxysmal Afib
#COPD, not in exacerbation
#CML
#HLD
cont home meds
DVT ppx on ELiquis
Full code
I have spent at least 70min reviewing chart, test results, communication with consultants and providing direct patient care
Anticipated Discharge: Within 24 hours
Subjective/Interval History
-
Date of Service: June 06, 2025
Objective Data
-
Labs:
Laboratory Results
06/06/25
05:57
WBC 20.2 H
Hgb 10.0 L
Hct 30.8 L
Plt Count 305
Sodium 139
Potassium 4.5
Chloride 99
Carbon Dioxide 26
BUN 49 H
Creatinine 5.9 H*
Glucose 120 H
Calcium 9.3
Total Bilirubin 1.0
AST 17
ALT 15
Alkaline Phosphatase 94
Vital Signs:
Vital Signs
Temp Pulse Resp BP Pulse Ox
97.9 F 91 17 170/65 96
06/06/25 07:19 06/06/25 07:19 06/06/25 07:19 06/06/25 07:19 06/06/25 07:19
I&O
06/05/25 06/06/25 06/07/25
06:59 06:59 06:59
Intake Total 1038 / 1038 1020 / 1020
Output Total 100 / 100
Balance 938 / 938 1020 / 1020
Review of Systems
-
Unable to obtain full review of systems at this time due to: Dementia
History Source: Patient
Physical Exam
-
General: No Apparent Distress
HEENT: Normocephalic
Respiratory: Clear to Auscultation
GI: Nontender and Distended
Musculoskeletal: No Clubbing, No Cyanosis and No Edema
Neuro: Awake, Alert and Oriented
Psych: Calm, Apparent Dementia and Other (somnolent)
[2025-06-06] MEDS: APRESOLINE 5 MG IV ×3 (10:27→23:43)
[2025-06-06] MEDS: AMPICILLIN 108 MG IV ×2 (10:28→22:39)
[2025-06-06] MEDS: SENOKOT-S PO (11:05)
[2025-06-06 12:11] LABS: Glucose - Point of Care 142 mg/dl (70-99)
--- NOTE | 2025-06-06 12:16 | W.PN.NEPH.PH ---
Today's Communication / Plan
-
HD tomorrow
Assessment/Plan
-
Impression
Non-functional PICC line from occlusion, now removed
Recent Enterococcus faecalis bacteremia secondary to vertebral osteomyelitis/discitis L1-L2
IV antibiotics through 06-16-25
Recent AV fistula bleed, patent and functional
ESRD MWF, [facility]
A-fib
DM2
CAD/CABG
Anemia
PAD
RUE AVF/ligated LUE AVG
Hyperphosphatemia
HTN
Diabetic neuropathy
Secondary hyperparathyroidism
Plan
HD Saturday
awaiting LSO brace to wear
Continue antibiotics (ceftriaxone and ampicillin) through 06/26 per ID
AV fistula patent and functional.
Maintain phosphate binders for hyperphosphatemia
Appropriate fluid restrictions and sodium and potassium restrictions
BP labile pattern suggest reactive
seem more altered today perhaps from pain meds?
-
-
Date of Service: June 06, 2025
CC / HPI / ROS
-
Chief Complaint:
ESRD
History of Present Illness:
ESRD on Saturday schedule
Hemodynamically stable
Remains on ampicillin for Enterococcus faecalis bacteremia
no fever
Review of Systems:
awake but confused
had enema for constipation
abd XRay no obst
stil in back pain
Labs
-
Labs:
WBC 20.2 10^3/uL (4.8-10.8) H 06/06/25 05:57
RBC 3.15 10^6/uL (4.70-6.10) L 06/06/25 05:57
Hgb 10.0 g/dL (13.0-18.0) L 06/06/25 05:57
Hct 30.8 % (39.0-52.0) L 06/06/25 05:57
Plt Count 305 10^3/uL (130-400) 06/06/25 05:57
Sodium 139 mmol/L (135-145) 06/06/25 05:57
Potassium 4.5 mmol/L (3.5-5.1) 06/06/25 05:57
Chloride 99 mmol/L (98-107) 06/06/25 05:57
Carbon Dioxide 26 mmol/L (22-30) 06/06/25 05:57
BUN 49 mg/dl (9-20) H 06/06/25 05:57
Creatinine 5.9 mg/dL (0.7-1.3) H* 06/06/25 05:57
eGFR 9.74 06/06/25 05:57
Glucose 120 mg/dl (70-99) H 06/06/25 05:57
Calcium 9.3 mg/dl (8.4-10.2) 06/06/25 05:57
Albumin 4.2 g/dl (3.5-5.0) 06/06/25 05:57
Physical Exam
-
Vital Signs:
Vital Signs
Temp Pulse Resp BP Pulse Ox
97.9 F 62 17 165/72 96
06/06/25 07:19 06/06/25 10:27 06/06/25 07:19 06/06/25 10:27 06/06/25 07:19
Cardiovascular:: Regular rate and rhythm
Respiratory:: Bilateral: CTA
Lung Excursion:: Normal
Abdomen:: Nontender and Soft
Bowel Sounds:: Normal
Extremity Edema:: None: Bilateral:
Luther Catheter: No
--- NOTE | 2025-06-06 14:05 | W.PN.UPDATE ---
Update Note
Progress Note Update
With increased somnolence and since patient on Eliquis - reasonable to check HEad CT
Initially concern with finding LLE dorsalis pedis pulse, but assessed with Doppler - good signal heard.
[2025-06-06 16:13] VITALS: BP 195/82
[2025-06-06] MEDS: NON-FORMULARY ITEM 0.25 MG SC (16:18)
[2025-06-06] MEDS: TYLENOL 650 MG PO (16:19)
[2025-06-06] MEDS: PEPCID 10 MG PO (17:01)
[2025-06-06 17:07] LABS: Glucose - Point of Care 144 mg/dl (70-99)
--- NOTE | 2025-06-06 17:15 | PTCARENOTE ---
pt lethargic, sleepy most of the shift, DR Made aware, head CT obtained; Abdominal Xray as well since pt has not had a full BM in 5 days; Enema administered and effective; pt continues to be in and out of sleepiness, pain regimen adjusted.
[2025-06-06 17:49] VITALS: BP 173/86
[2025-06-06 18:39] VITALS: BP 140/75
[2025-06-06] MEDS: SENOKOT-S 1 TABLET PO (20:15)
[2025-06-06 21:03] LABS: Glucose - Point of Care 150 mg/dl (70-99)
[2025-06-06 23:11] VITALS: BP 182/91
[2025-06-07] VITALS (8 sets, daily range): BP systolic 131–182; BP diastolic 47–106; BMI 27.9
[2025-06-07] MEDS: FLEXERIL PO (01:43)
[2025-06-07] MEDS: FLEXERIL 5 MG PO (05:23)
--- NOTE | 2025-06-07 05:29 | PTCARENOTE ---
Patient found picking at PICC line, dressing was removed by patient. Notified VAT
[2025-06-07 06:06] LABS: Hematocrit 30.4 % (39.0-52.0); Hemoglobin 10.1 g/dL (13.0-18.0); Mean Corp Hgb Conc. 33.2 g/dL (33.0-37.0); Mean Corpuscular Volume 97.4 fL (80.0-94.0); Nucleated Red Blood Cells % 0 % (-); Platelet Count 325 10^3/uL (130-400); Red Cell Dist. Width 16.3 % (11.5-14.5)
[2025-06-07 06:20] LABS: ALT (SGPT) 14 U/L (0-50); AST (SGOT) 17 U/L (17-59); Albumin 4.5 g/dl (3.5-5.0); Alkaline Phosphatase 94 U/L (38-126); Blood Urea Nitrogen 61 mg/dl (9-20); Calcium 9.4 mg/dl (8.4-10.2); Carbon Dioxide 23 mmol/L (22-30); Chloride 97 mmol/L (98-107); Estimated Creatinine Clearance 8 ml/min; Glucose 116 mg/dl (70-99); Potassium 4.9 mmol/L (3.5-5.1); Sodium 137 mmol/L (135-145); Total Protein 7.6 g/dl (6.3-8.2); eGFR 6.97
[2025-06-07 07:23] LABS: Glucose - Point of Care 133 mg/dl (70-99)
[2025-06-07] MEDS: STERILE WATER FOR INJECTION 20 ML IV ×2 (08:21→22:11)
[2025-06-07] MEDS: ROCEPHIN 2000 MG IV ×2 (08:21→22:10)
--- NOTE | 2025-06-07 08:46 | W.PN.ID1 ---
Date of Service
Date of Service: June 07, 2025
Today's Communication
Continue antibiotics. See below�
Assessment / Plan
Leukocytosis
Low back pain 2* L1-2 discitis / vertebral osteomyelitis
Bacteremia with E. faecalis
- cleared 05/05/25
Constipation / obstipation
Elevated ESR
Elevated CRP
pA-fib
CML
COPD
Hx CVA
HTN
HLD
DM type II
CAD; Hx MS
ESRD�HD
Obesity
Recommendations:
White count remains elevated, but appears stable. ?reactive
Blood cultures (05/03/25) with E. faecalis. Repeat blood cultures (05/05, 05/07) finalized and without growth.
MRI findings on 05/04/25 compatible with discitis and osteomyelitis at L1-2. Possible paraspinal inflammation also noted.
Repeat MRI findings on 06/02/25 showed progressive changes of disc and vertebral body, but suspect these changes have lagged clinical response. Current CRP is 12, down from peak of 152. ESR has likewise shown improvement.
Prior TTE nondiagnostic.
Patient previously on a course of ampicillin and ceftriaxone through 06/16/25.
- Patient was placed on ceftazidime upon admission to the SNF (rather than ceftriaxone), and had remained on it for 10 days.
- At this time, the patient has resumed ceftriaxone.
Would extend the current course of ampicillin and ceftriaxone through 06/26/2025.
Follow mental status. Rarely, ceftriaxone, and even ampicillin have been shown to cause change in mental status. If mental status does not improve with a change in sedation medications, will consider adjusting antibiotic therapy.
Follow white count and temperature curve. Pain control per primary service.
���������������������������������������������������������
Chief Complaint
-: Other (Discitis/osteomyelitis. Hx Enterococcus faecalis bacteremia)
Subjective / Review of Systems
Patient seen and examined. Appears more somnolent than usual today. Once awoken, is responsive.
Vital Signs / Physical Exam
Vital Signs
Vital Signs
Temp Pulse Resp BP Pulse Ox
98.2 F 91 18 177/82 92
06/07/25 07:25 06/07/25 07:25 06/07/25 07:25 06/07/25 07:25 06/07/25 07:25
Physical Exam
Constitutional: No Acute Distress, Chronically Ill and Non-toxic
Eyes: No Conjunctival Hemorrhage and Sclera Anicteric
Cardiovascular: Regular Rate and S1/S2; Negative S3/S4
Pulmonary: Clear and Non Labored
Gastrointestinal: Soft, Non Tender and Non Distended
Extremities: Negative Edema or Erythema
Wound: Other (Right heel with unstageable pressure wound, dressed. No periwound erythema.)
Neurological: Other (Arousable, but appears 'groggy')
Psychological: Calm
Objective Data
Lab Data
Lab Results
06/07/25 05:43
06/07/25 05:43
ESR 57 mm/hour (0-20) H 06/06/25 05:57
Estimated Creat Clear 8 ml/min 06/07/25 05:43
Total Bilirubin 1.1 mg/dl (0.2-1.3) 06/07/25 05:43
AST 17 U/L (17-59) 06/07/25 05:43
ALT 14 U/L (0-50) 06/07/25 05:43
Alkaline Phosphatase 94 U/L (38-126) 06/07/25 05:43
C-Reactive Protein 12.30 mg/L (0.0-10.00) H 06/06/25 05:57
Most recent labs reviewed.
Micro Results:
05/31/25 09:06 Blood Culture - Final
Blood/Venous No Growth - Final Report
Imaging:
06/02/2025 MRI lumbar spine w & w/o : Progressive changes at L1-2 consistent with progressive discitis and osteomyelitis associated inferior L1 and superior L2 compression deformities have developed, as well has progressive instability with interval
development of 10 mm retrolisthesis of L1 relative to L2. Secondary progressive advanced central canal stenosis at L1-2 with bilateral lateral recess stenosis, despite evidence of previous laminectomy, and advanced bilateral foraminal stenosis. No
definitive epidural abscess. Right paraspinal abscess measuring 1.8 cm.
05/30/2025 X-ray right foot: No radiographic evidence of osteomyelitis.
05/04/2025 MRI lumbar spine without contrast: Findings compatible with discitis and osteomyelitis at L1-2. There is evidence for paraspinal inflammation with probable paraspinal abscesses. No evidence for epidural extension or inflammatory process,
with no evidence for epidural phlegmon or abscess.
05/03/2025 CT abdomen/pelvis without contrast: Moderate colonic stool burden without evidence of obstruction. Prior L1-L5 posterior spinal fusion noted. There are endplate irregularities with mild surrounding paraspinal soft tissue
thickening/stranding at the L1-L2 intervertebral space which is concerning for discitis or osteomyelitis. A dedicated MRI with and without contrast may be considered as clinically indicated.
[2025-06-07] MEDS: APRESOLINE 5 MG IV (09:13)
--- NOTE | 2025-06-07 09:19 | W.PN.HOSP.TC ---
Today's Communication/Plan
-
Hold off on narcotics, gabapentin, Flexeril, Zoloft, Abilify, lorazepam
EEG
MRI of the brain
ABG
Assessment / Plan
Assessment / Plan
69yo M with PMHx ESRD on HD, hypotension, PAD s/p angioplasty, CAD s/p CABG and PCI, Afib on eliquis, DM, Hx of CVA, depression/anxiety, ADHD, myeloprolyferative d/o, Hx of substance abuse, gout, chronic ambulatory dysfunction, spinal stensosi s/p
lumbar laminectomy, L1/L2 osteomyelitis and diskitis on Abx 12/27 E.faecalis bacteremia initially planned until 06/16/25 came with occluded PICC with clot, had PICC replaced on 05/31/25, MRI back showed progressive changes, so ID extended Abx till
06/26/25. NeuroSx recommended LSO brace, pending delivery. Was seen by podiatry for R heal ulcer and had Aortogram, Right lower extremity angiogram , PILLING MACHINE OPERATOR and stent of popliteal, PILLING MACHINE OPERATOR and shockwave to tibioperoneal trunk and posterior tibial on 06/01/25.
Spoke to Saturday he was confused about some one came to see him. But Saturday am noted a big change in his mentation. Didn't recognize .
Patient seems to be disoriented
Able to state his name. Could not give me any further answers for any of my other questions.
Restless in bed eyes open decreased attention span
Cardiovascular system S1-S2 appreciated
Chest clear to auscultation
Abdomen soft and nontender
Small area of rectal prolapse versus hemorrhoid noted
Neuro Exam-I did not note any facial droop
Patient is able to move bilateral upper extremities hold hand grasps and lets go because of his inability to focus.
Does not follow directions clearly therefore difficult to assess lower extremity strength today
# TME/mental status change
Received 1 dose of oxycodone yesterday morning although other narcotics have been discontinued.
Gabapentin was started on 06/04/2025
Received Neurontin last night. Hold off on further doses.
Hold further doses of Zoloft, Flexeril, Gabapentin, Ritalin, Oxycodone
Check ABG, EEG, MRI of the brain
Head CT 06/06/2025-no acute changes noted
#Occluded PICC
replaced by IRAD to L IJ tunnelled cath on 05/31/25
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
Blood cultures since 05/05/2025-negative
MRI showed Progressive changes at L1-2 consistent with progressive discitis and osteomyelitis associated inferior L1 and superior L2 compression deformities have developed
NeuroSx: with improvement in ESR/CRP, no evidence of central canal compromise recommended continuation of non-surgical mgmt with LSO brace while weightbearing. Also will need to be off Eliquis and Plavix for at least 10 days, but now with
angioplasty -high risk
ID extended Abx to 06/26/25: cont Ampicillin/Ceftriaxone. Patient apparently was on Ceftazidime in SNF for 10 days along with Ampicillin.
follow ESR/CRP
Hold off on pain medicines
# Right heel ulcer-seen by Dr. Obregon from podiatry. Patient uses his heels to push up in the bed which is likely causing this strict offloading discussed with Uriel zurita.
Patient had arteriogram, right lower extremity angiogram, PILLING MACHINE OPERATOR and stent of the popliteal, PT and shockwave to tibial peroneal trunk and posterior tibial by Dr. Willams on 06/01/2025
Foot is warm and pulses palpable with Doppler.
Cont Plavix, Eliquis
# Anemia of chronic disease-Also had bleeding from right upper extremity AV graft status post fistulogram with ballooning and stent 05/18/2025. Received 1 unit of blood
#Constipation-Enema
#Stage 2 right buttock pressure injury, POA
#Unstageable right heel pressure injury, POA
wound care
# History of coronary artery disease with CABG 2009 and also history of PCI LAD 2005, VG to OM 2022, PCI ISR VG to OM 2023
#DM type 2 with neuropathy
on Ozempic as outpatient Sundays
Accuchecks, DM diet, insulin SS
#End-stage renal disease on hemodialysis- HD Saturday.
# Peripheral artery disease with history
Right SFA and popliteal artery angioplasty and stent 2015
Left lower extremity angioplasty and left SFA and popliteal artery angioplasty with Balloon 2017
Left femoral endarterectomy with left femoropopliteal bypass 2018
Continue Plavix, statin
# Systemic hypertension-on Amlodipine and Metoprolol. PRN hydralazine this am.
# Paroxysmal atrial fibrillation/flutter-continue metoprolol and Eliquis
#COPD, not in exacerbation
# Hyperlipidemia-continue Zetia, Statin
#H/O Staph bacteremia 01/2024
# History of CVA
# Fatty liver
# History of traumatic frontal Subdural Hematoma-2019 with leg weakness
# Sleep apnea not on CPAP as outpatient. Pt says he was told he doesn't need.
# Depression/anxiety on as needed Lorazepam, Abilify, Sertraline as OP- Hold all these given MS change
# ADHD on methylphenidate- Hold now
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 Guzman.
# Secondary hyperparathyroidism secondary to end-stage renal disease
# Spinal stenosis with history of Lumbar laminectomy
# History of substance abuse in the past
# Right bundle branch block
# Ambulatory dysfunction
# History of gout
# GERD-Pepcid
# Obesity
# Ex-smoker
# DVT prophylaxis -Eliquis
# CODE STATUS- Full CODE
D/W ID
D/W RN at bed side
Spoke to and updated, she stated that she noted a change between Saturday and Saturday and yesterday he was very confused and not able to recognize her at all. Saturday he thought that somebody had visited him but they had not but other than
that he was mostly able to have a conversation with her. Plan of care discussed.
CODE STATUS addressed.
She stated that she had talked to him in the past and he would not want a feeding tube or go on a 'respirator'. He has 2 children who he has not seen in the past 10 years. I encouraged her to talk to rest of the family and get back to us with
their decision.
Time spent more than 60 minutes
Anticipated Discharge: > 48 hours
Subjective/Interval History
-
Date of Service: June 07, 2025
Objective Data
-
Labs:
Laboratory Results
06/07/25 06/07/25
05:43 09:15
WBC 23.5 H
Hgb 10.1 L
Hct 30.4 L
Plt Count 325
HCO3 Pending
Sodium 137
Potassium 4.9
Chloride 97 L
Carbon Dioxide 23
BUN 61 H
Creatinine 7.8 H*
Glucose 116 H
Calcium 9.4
Total Bilirubin 1.1
AST 17
ALT 14
Alkaline Phosphatase 94
Vital Signs:
Vital Signs
Temp Pulse Resp BP Pulse Ox
98.2 F 91 18 177/82 92
06/07/25 07:25 06/07/25 07:25 06/07/25 07:25 06/07/25 07:25 06/07/25 07:25
I&O
06/06/25 06/07/25 06/08/25
06:59 06:59 06:59
Intake Total 1020 / 1020 588 / 588
Balance 1020 / 1020 588 / 588
[2025-06-07] MEDS: AMPICILLIN 108 MG IV ×2 (09:20→23:37)
--- NOTE | 2025-06-07 09:23 | PTCARENOTE ---
During AM assessment, patient lethargic, opens eyes verbal stimuli but unable to verbalize or nod head when asked questions, does not visually track staff in the room. Unable to safely give PO meds. BP high, 177/82. Dr. Mccauley at bedside to
assess. Patient now intermittently able to verbalize name when asked. Patient also w/ hemorrhoid vs rectal prolapse? Dr. Mccauley aware. BP treated w/ PRN hydralazine. Awaiting new orders.
[2025-06-07] MEDS: ELIQUIS PO (09:35)
[2025-06-07] MEDS: TOPROL XL PO (09:35)
[2025-06-07] MEDS: MIRALAX PO (09:35)
[2025-06-07] MEDS: PLAVIX PO (09:35)
[2025-06-07] MEDS: SENOKOT-S PO (09:35)
[2025-06-07] MEDS: RITALIN PO (09:35)
[2025-06-07] MEDS: NORVASC PO (09:35)
[2025-06-07] MEDS: NEPHROCAP PO (09:35)
[2025-06-07] MEDS: ZETIA PO (09:36)
[2025-06-07] MEDS: ZOLOFT PO (09:36)
[2025-06-07] MEDS: NOVOLOG FLEXPEN-LOW RESISTANCE SC ×3 (09:36→17:22)
[2025-06-07] MEDS: VITAMIN C PO (09:36)
--- NOTE | 2025-06-07 09:46 | VATNOTE ---
Primary RN reported no blood return from left IJ tunneled SL PICC. Flushes very well but I also did not get a blood return. Primary RN contacting provider for cathflow order
[2025-06-07 10:14] LABS: B.E. -3.2 mmol/L; HCO3 22.7 mmol/L (21-28); O2 Saturation % 91.4 % (94-98); PCO2 43 mmHg (35-48); PO2 60 mmHg (83-108)
[2025-06-07 10:16] LABS: O2 Therapy RA
--- NOTE | 2025-06-07 10:18 | PTCARENOTE ---
per MRI staff, unlikely that MRI will be done today d/t busy schedule. ABG obtained by RT Acharya.
--- NOTE | 2025-06-07 10:28 | W.PN.UPDATE ---
Update Note
Progress Note Update
Mrs. Banuelos reached back to me and said that she discussed with rest of the family as I discussed before. They wanted to DNR.
--- NOTE | 2025-06-07 10:37 | W.PN.NEPH.PH ---
Today's Communication / Plan
-
Dialysis
MRI
Assessment/Plan
-
Impression
Non-functional PICC line from occlusion, now removed
Recent Enterococcus faecalis bacteremia secondary to vertebral osteomyelitis/discitis L1-L2
IV antibiotics through 06-16-25
Recent AV fistula bleed, patent and functional
ESRD MWF, [facility]
A-fib
DM2
CAD/CABG
Anemia
PAD
RUE AVF/ligated LUE AVG
Hyperphosphatemia
HTN
Diabetic neuropathy
Secondary hyperparathyroidism
Plan
Continue antibiotics (ceftriaxone and ampicillin) through 06/26 per ID
AV fistula patent and functional.
Maintain phosphate binders for hyperphosphatemia
Appropriate fluid restrictions and sodium and potassium restrictions
BP labile pattern suggest reactive
Declining mental status CAT scan shows no acute pathology/MRI ordered by primary team= no contraindication for gadolinium if needed
HD today ordered
Discussed with nursing staff
-
-
Date of Service: June 07, 2025
CC / HPI / ROS
-
Chief Complaint:
ESRD
History of Present Illness:
ESRD on Saturday schedule
Hemodynamically stable
Remains on ampicillin for Enterococcus faecalis bacteremia
no fever
Review of Systems:
Declining mental status unable to obtain review of system
Protecting his airway currently
Labs
-
Labs:
WBC 23.5 10^3/uL (4.8-10.8) H 06/07/25 05:43
RBC 3.12 10^6/uL (4.70-6.10) L 06/07/25 05:43
Hgb 10.1 g/dL (13.0-18.0) L 06/07/25 05:43
Hct 30.4 % (39.0-52.0) L 06/07/25 05:43
Plt Count 325 10^3/uL (130-400) 06/07/25 05:43
Sodium 137 mmol/L (135-145) 06/07/25 05:43
Potassium 4.9 mmol/L (3.5-5.1) 06/07/25 05:43
Chloride 97 mmol/L (98-107) L 06/07/25 05:43
Carbon Dioxide 23 mmol/L (22-30) 06/07/25 05:43
BUN 61 mg/dl (9-20) H 06/07/25 05:43
Creatinine 7.8 mg/dL (0.7-1.3) H* 06/07/25 05:43
eGFR 6.97 06/07/25 05:43
Glucose 116 mg/dl (70-99) H 06/07/25 05:43
Calcium 9.4 mg/dl (8.4-10.2) 06/07/25 05:43
Albumin 4.5 g/dl (3.5-5.0) 06/07/25 05:43
Physical Exam
-
Vital Signs:
Vital Signs
Temp Pulse Resp BP Pulse Ox
98.2 F 91 18 177/82 92
06/07/25 07:25 06/07/25 07:25 06/07/25 07:25 06/07/25 07:25 06/07/25 07:25
Cardiovascular:: Regular rate and rhythm
Respiratory:: Bilateral: CTA
Lung Excursion:: Normal
Abdomen:: Nontender and Soft
Bowel Sounds:: Normal
Extremity Edema:: None: Bilateral:
Luther Catheter: No
[2025-06-07 12:20] LABS: Glucose - Point of Care 126 mg/dl (70-99)
[2025-06-07] MEDS: BACTROBAN 2% OINTMENT 1 APPLIC TOPICAL (12:24)
[2025-06-07] MEDS: CATHFLO/ACTIVASE 2 MG INTRACATH (12:55)
[2025-06-07] MEDS: RETACRIT 2000 UNITS IV (14:10)
--- NOTE | 2025-06-07 14:18 | VATNOTE ---
CathFlo instilled by VAT RN. PICC flushes easily and now has a brisk blood return. PCN updated.
--- NOTE | 2025-06-07 15:09 | CM ---
Reviewed the chart notes. Patient seen on HD. Patient minimally responsive. MRI pending. CM continues to be available to patient/family and is monitoring medical plan for needs at discharge.
Plan: Discharge plans will depend on the patient's progress. Initial plan is to return to [place] when stable.
--- NOTE | 2025-06-07 15:31 | W.PN.UPDATE ---
Update Note
Progress Note Update
Patient was reevaluated
Eoqveho-py-scc at bedside
Getting dialysis, drowsy arousable sometimes states his name
No neck stiffness elicited
Reached out to neurology-will get back to me regarding EEG results
ABG without any acute changes
MRI pending
Discussed with brother Armin at bedside
Discussed with nursing
Will transfer to stepdown for overnight
[2025-06-07 17:06] LABS: Glucose - Point of Care 96 mg/dl (70-99)
--- NOTE | 2025-06-07 17:16 | EEG.RPT ---
Electroencephalogram Report
Recording
Date of EE06/07/25
Type of EEG: Routine
Length of EEG recordin minutes
Done with Video Recording: Yes
Patient Status: Inpatient
Recording Conditions: Awake and Drowsy
Hyperventilation Performed: No
Photic Stimulation Performed: Yes
Report
LESS THAN 1 HOUR EEG REPORT
LESS THAN 1 HOUR EEG INTERPRETATION:
Mildly�moderately abnormal EEG for age due to diffuse bihemispheric slowing
CLINICAL CORRELATION:
This study was suggestive of diffuse cortical dysfunction without focal abnormality. No seizures were recorded.
Clinical correlation is advised.
METHODS:
A 21 channel digitized electroencephalogram (EEG) was performed at the bedside. The 10/20 international system of electrode placement was used with ECG and lateral/vertical eye movements recorded. Persyst QEEG monitoring was performed.
QUALITY OF STUDY:
Fair
ELECTROENCEPHALOGRAPHER IMPRESSION(S):
Background
There was a low amplitude unorganized anterior-posterior voltage gradient of theta frequency
There were no significant asymmetries of background activity noted.
Sleep
Drowsiness present
Photic Stimulation
Failed to activate the record.
ECG
Normal sinus rhythm
[2025-06-07] MEDS: PEPCID PO (17:29)
[2025-06-07] MEDS: ELIQUIS 5 MG PO (22:10)
[2025-06-07] MEDS: TYLENOL 650 MG PO (22:10)
[2025-06-07] MEDS: SENOKOT-S 1 TABLET PO (22:10)
[2025-06-07] MEDS: LIPITOR 80 MG PO (22:10)
[2025-06-07] MEDS: NORVASC 5 MG PO (22:10)
[2025-06-07 22:29] LABS: Glucose - Point of Care 187 mg/dl (70-99)
[2025-06-08] VITALS (11 sets, daily range): BP systolic 112–158; BP diastolic 59–104; BMI 28.7
--- NOTE | 2025-06-08 00:43 | PTCARENOTE ---
Pt having complaints of pain. Tylenol attempted without success. Night FOOT ORTHOPEDIST made aware, lidocaine patch ordered.
[2025-06-08] MEDS: LIDOCAINE 4% PATCH 3 PATCH TOPICAL (00:59)
[2025-06-08 05:54] LABS: Hematocrit 26.7 % (39.0-52.0); Hemoglobin 8.8 g/dL (13.0-18.0); Mean Corp Hgb Conc. 33.0 g/dL (33.0-37.0); Mean Corpuscular Volume 97.4 fL (80.0-94.0); Platelet Count 249 10^3/uL (130-400); Red Cell Dist. Width 16.5 % (11.5-14.5)
[2025-06-08 06:20] LABS: Blood Urea Nitrogen 34 mg/dl (9-20); Calcium 8.6 mg/dl (8.4-10.2); Carbon Dioxide 28 mmol/L (22-30); Chloride 101 mmol/L (98-107); Estimated Creatinine Clearance 15 ml/min; Glucose 92 mg/dl (70-99); Potassium 3.6 mmol/L (3.5-5.1); Sodium 138 mmol/L (135-145); eGFR 13.49
--- NOTE | 2025-06-08 08:07 | W.PN.NEPH.PH ---
Today's Communication / Plan
-
HD tomorrow, orders provided
Patient cannot move either of his lower extremities, discussed with neurology this morning
Patient appears to be approaching baseline mental status that
Assessment/Plan
-
Impression
Non-functional PICC line from occlusion, now removed
Recent Enterococcus faecalis bacteremia secondary to vertebral osteomyelitis/discitis L1-L2
IV antibiotics through 06-16-25
Recent AV fistula bleed, patent and functional
ESRD MWF, [facility]
A-fib
DM2
CAD/CABG
Anemia
PAD
RUE AVF/ligated LUE AVG
Hyperphosphatemia
HTN
Diabetic neuropathy
Secondary hyperparathyroidism
Plan
Continue antibiotics (ceftriaxone and ampicillin) through 06/26 per ID
AV fistula patent and functional.
Maintain phosphate binders for hyperphosphatemia
Appropriate fluid restrictions and sodium and potassium restrictions
BP labile pattern suggest reactive
Declining mental status CAT scan shows no acute pathology/MRI ordered by primary team= no contraindication for gadolinium if needed
HD tomorrow, orders provided
-
-
Date of Service: June 08, 2025
CC / HPI / ROS
-
Chief Complaint:
ESRD
History of Present Illness:
ESRD on Saturday schedule
Hemodynamically stable
Remains on ampicillin for Enterococcus faecalis bacteremia
no fever
Review of Systems:
Patient more awake and alert today conversational
Now notes leg pain and inability to move his lower extremities at all
Labs
-
Labs:
WBC 18.2 10^3/uL (4.8-10.8) H 06/08/25 05:39
RBC 2.74 10^6/uL (4.70-6.10) L 06/08/25 05:39
Hgb 8.8 g/dL (13.0-18.0) L 06/08/25 05:39
Hct 26.7 % (39.0-52.0) L 06/08/25 05:39
Plt Count 249 10^3/uL (130-400) D 06/08/25 05:39
Sodium 138 mmol/L (135-145) 06/08/25 05:39
Potassium 3.6 mmol/L (3.5-5.1) D 06/08/25 05:39
Chloride 101 mmol/L (98-107) 06/08/25 05:39
Carbon Dioxide 28 mmol/L (22-30) 06/08/25 05:39
BUN 34 mg/dl (9-20) H 06/08/25 05:39
Creatinine 4.5 mg/dL (0.7-1.3) H* 06/08/25 05:39
eGFR 13.49 06/08/25 05:39
Glucose 92 mg/dl (70-99) 06/08/25 05:39
Calcium 8.6 mg/dl (8.4-10.2) 06/08/25 05:39
Albumin 4.5 g/dl (3.5-5.0) 06/07/25 05:43
Physical Exam
-
Vital Signs:
Vital Signs
Temp Pulse Resp BP Pulse Ox
98.3 F 84 10 112/59 93
06/08/25 02:47 06/08/25 04:00 06/08/25 04:00 06/08/25 04:00 06/08/25 04:00
Cardiovascular:: Regular rate and rhythm
Respiratory:: Bilateral: CTA
Lung Excursion:: Normal
Abdomen:: Nontender and Soft
Bowel Sounds:: Normal
Extremity Edema:: None: Bilateral:
Luther Catheter: No
--- NOTE | 2025-06-08 08:20 | W.PN.NEPH.PH ---
Today's Communication / Plan
-
HD tomorrow
Discussed with neurology new findings of lower extremity weakness
Assessment/Plan
-
Impression
Non-functional PICC line from occlusion, now removed
Recent Enterococcus faecalis bacteremia secondary to vertebral osteomyelitis/discitis L1-L2
IV antibiotics through 06-16-25
Recent AV fistula bleed, patent and functional
ESRD MWF, [facility]
A-fib
DM2
CAD/CABG
Anemia
PAD
RUE AVF/ligated LUE AVG
Hyperphosphatemia
HTN
Diabetic neuropathy
Secondary hyperparathyroidism
Plan
Discussed lower leg paralysis with neurology this morning
Continue antibiotics (ceftriaxone and ampicillin) through 06/26 per ID
AV fistula patent and functional.
Maintain phosphate binders for hyperphosphatemia
Appropriate fluid restrictions and sodium and potassium restrictions
BP labile pattern suggest reactive
Declining mental status CAT scan shows no acute pathology/MRI ordered by primary team= no contraindication for gadolinium if needed
HD tomorrow, orders provided
-
-
Date of Service: June 08, 2025
CC / HPI / ROS
-
Chief Complaint:
ESRD
History of Present Illness:
ESRD on Saturday schedule
Hemodynamically stable
Remains on ampicillin for Enterococcus faecalis bacteremia
no fever
Review of Systems:
Patient more awake and alert today conversational
Now notes leg pain and inability to move his lower extremities at all
Labs
-
Labs:
WBC 18.2 10^3/uL (4.8-10.8) H 06/08/25 05:39
RBC 2.74 10^6/uL (4.70-6.10) L 06/08/25 05:39
Hgb 8.8 g/dL (13.0-18.0) L 06/08/25 05:39
Hct 26.7 % (39.0-52.0) L 06/08/25 05:39
Plt Count 249 10^3/uL (130-400) D 06/08/25 05:39
Sodium 138 mmol/L (135-145) 06/08/25 05:39
Potassium 3.6 mmol/L (3.5-5.1) D 06/08/25 05:39
Chloride 101 mmol/L (98-107) 06/08/25 05:39
Carbon Dioxide 28 mmol/L (22-30) 06/08/25 05:39
BUN 34 mg/dl (9-20) H 06/08/25 05:39
Creatinine 4.5 mg/dL (0.7-1.3) H* 06/08/25 05:39
eGFR 13.49 06/08/25 05:39
Glucose 92 mg/dl (70-99) 06/08/25 05:39
Calcium 8.6 mg/dl (8.4-10.2) 06/08/25 05:39
Albumin 4.5 g/dl (3.5-5.0) 06/07/25 05:43
Physical Exam
-
Vital Signs:
Vital Signs
Temp Pulse Resp BP Pulse Ox
98.3 F 84 10 112/59 93
06/08/25 02:47 06/08/25 04:00 06/08/25 04:00 06/08/25 04:00 06/08/25 04:00
Cardiovascular:: Regular rate and rhythm
Respiratory:: Bilateral: CTA
Lung Excursion:: Normal
Abdomen:: Nontender and Soft
Bowel Sounds:: Normal
Extremity Edema:: None: Bilateral:
Luther Catheter: No
[2025-06-08] MEDS: NOVOLOG FLEXPEN-LOW RESISTANCE SC ×3 (08:40→18:41)
[2025-06-08 08:43] LABS: Glucose - Point of Care 90 mg/dl (70-99)
[2025-06-08] MEDS: MIRALAX 17 GRAMS PO (09:00)
[2025-06-08] MEDS: TOPROL XL 25 MG PO (09:01)
[2025-06-08] MEDS: ZETIA 10 MG PO (09:01)
[2025-06-08] MEDS: STERILE WATER FOR INJECTION 20 ML IV ×2 (09:01→21:05)
[2025-06-08] MEDS: PLAVIX 75 MG PO (09:01)
[2025-06-08] MEDS: ROCEPHIN 2000 MG IV ×2 (09:01→21:05)
[2025-06-08] MEDS: SENOKOT-S 1 TABLET PO ×2 (09:01→21:05)
[2025-06-08] MEDS: NORVASC 5 MG PO ×2 (09:02→21:05)
[2025-06-08] MEDS: ELIQUIS 5 MG PO (09:02)
[2025-06-08] MEDS: BACTROBAN 2% OINTMENT 1 APPLIC TOPICAL (09:02)
[2025-06-08] MEDS: VITAMIN C 500 MG PO (09:02)
--- NOTE | 2025-06-08 09:30 | W.PN.HOSP.TC ---
Today's Communication/Plan
-
MRI
Restart held meds and watch MS closely.
Assessment / Plan
Assessment / Plan
69yo M with PMHx ESRD on HD, hypotension, PAD s/p angioplasty, CAD s/p CABG and PCI, Afib on eliquis, DM, Hx of CVA, depression/anxiety, ADHD, myeloprolyferative d/o, Hx of substance abuse, gout, chronic ambulatory dysfunction, spinal stensosi s/p
lumbar laminectomy, L1/L2 osteomyelitis and diskitis on Abx 12/27 E.faecalis bacteremia initially planned until 06/16/25 came with occluded PICC with clot, had PICC replaced on 05/31/25, MRI back showed progressive changes, so ID extended Abx till
06/26/25. NeuroSx recommended LSO brace, pending delivery. Was seen by podiatry for R heal ulcer and had Aortogram, Right lower extremity angiogram , GIFT SHOP MANAGER and stent of popliteal, GIFT SHOP MANAGER and shockwave to tibioperoneal trunk and posterior tibial on 06/01/25.
Patient is wide-awake and alert and communicative this morning. States that he has a hard time moving his legs. He noticed this around midnight but did not communicate. He also had some pain
Cardiovascular system S1-S2 appreciated
Chest clear to auscultation
Abdomen soft and nontender
Decreased rectal tone noted today. Patient can feel rectal exam
Neuro Exam-No facial droop
5/5 strength distal UE. Left shoulder pain . Able to lift arms above shoulder.
Decreased sensation bilateral lower extremities left more than right. Decreased reflexes bilateral but does have clonus on the right
# B/L LE weakness noted on am 06/08/25. Pt says He noted around midnight. Decreased rectal tone. Will get MRI T spine. messaged Radiologist
# TME/mental status change associated started on 06/06/2025. Patient is completely back to baseline mentation today
Gabapentin was started on 06/04/2025-I suspect this could have been the reason. Hold further doses of Neurontin
Restart Zoloft, Flexeril, Ritalin
Trileptal started on 06/08/25 by neurology for pain.
ABG was normal. EEG did not show any seizures
MRI of the brain pending
Head CT 06/06/2025-no acute changes noted
#Occluded PICC
replaced by IRAD to L IJ tunnelled cath on 05/31/25
# Recent Enterococcus faecalis bacteremia secondary to vertebral osteomyelitis/discitis L1/L2- on previous admission
Blood cultures since 05/05/2025-negative was discharged to rehab on 05/20/2025
MRI showed Progressive changes at L1-2 consistent with progressive discitis and osteomyelitis associated inferior L1 and superior L2 compression deformities have developed
NeuroSx: with improvement in ESR/CRP, no evidence of central canal compromise recommended continuation of non-surgical mgmt with LSO brace while weightbearing. Also will need to be off Eliquis and Plavix for at least 10 days, but now with
angioplasty -high risk
ID extended Abx to 06/26/25: cont Ampicillin/Ceftriaxone. Patient apparently was on Ceftazidime for 10 days along with Ampicillin at SNF
Follow ESR/CRP
LSO Brace not seen in the room. Nursing to check with Balwinder to start PT, once obtained.
# Right heel ulcer-seen by Dr. Obregon from podiatry. Patient uses his heels to push up in the bed which is likely causing this strict offloading discussed with Uriel zurita.
Patient had arteriogram, right lower extremity angiogram, GIFT SHOP MANAGER and stent of the popliteal, PT and shockwave to tibial peroneal trunk and posterior tibial by Dr. Willams on 06/01/2025
Foot is warm and pulses palpable with Doppler.
Cont Plavix, Eliquis
# Anemia of chronic disease-Also had bleeding from right upper extremity AV graft status post fistulogram with ballooning and stent 05/18/2025. Received 1 unit of blood
#Constipation-Enema
#Stage 2 right buttock pressure injury, POA
#Unstageable right heel pressure injury, POA
wound care
# History of coronary artery disease with CABG 2009 and also history of PCI LAD 2005, VG to OM 2022, PCI ISR VG to OM 2023
#DM type 2 with neuropathy
on Ozempic as outpatient Sundays
Accuchecks, DM diet, insulin SS
#End-stage renal disease on hemodialysis- HD Saturday.
# Peripheral artery disease with history
Right SFA and popliteal artery angioplasty and stent 2015
Left lower extremity angioplasty and left SFA and popliteal artery angioplasty with Balloon 2017
Left femoral endarterectomy with left femoropopliteal bypass 2018
Continue Plavix, statin
# Systemic hypertension-on Amlodipine and Metoprolol. Also on as needed hydralazine
# Paroxysmal atrial fibrillation/flutter-continue metoprolol and Eliquis
#COPD, not in exacerbation
# Hyperlipidemia-continue Zetia, Statin
#H/O Staph bacteremia 01/2024
# History of CVA
# Fatty liver
# History of traumatic frontal Subdural Hematoma-2018 with B/L leg weakness
# Sleep apnea not on CPAP as outpatient. Pt says he was told he doesn't need.
# Depression/anxiety on as needed Lorazepam, Sertraline as OP-restart sertraline . Hold Lorazepam. Per discussion with Dr Rosenthal , Abilify on medlist was stopped at SNF because there was no supporting diagnosis and also it was started in the
hospital. Patient is stable off of that therefore we will hold off on restarting.
# ADHD on methylphenidate-restart
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 Guzman.
# Secondary hyperparathyroidism secondary to end-stage renal disease
# Spinal stenosis with history of Lumbar laminectomy
# History of substance abuse in the past
# Right bundle branch block
# Ambulatory dysfunction
# History of gout
# GERD-Pepcid
# Obesity
# Ex-smoker
# DVT prophylaxis - Eliquis
# CODE STATUS- Full CODE
D/W neuro at bed side
D/W RN at bed side
Discussed with the patient's in detail on the phone. She stated that patient told her about legs this morning.
Time spent more than 58 minutes
Anticipated Discharge: > 48 hours
Subjective/Interval History
-
Date of Service: June 08, 2025
Objective Data
-
Labs:
Laboratory Results
06/08/25
05:39
WBC 18.2 H
Hgb 8.8 L
Hct 26.7 L
Plt Count 249 D
Sodium 138
Potassium 3.6 D
Chloride 101
Carbon Dioxide 28
BUN 34 H
Creatinine 4.5 H*
Glucose 92
Calcium 8.6
Vital Signs:
Vital Signs
Temp Pulse Resp BP Pulse Ox
98.3 F 84 10 112/59 93
06/08/25 07:55 06/08/25 04:00 06/08/25 04:00 06/08/25 04:00 06/08/25 04:00
I&O
06/07/25 06/08/25 06/09/25
06:59 06:59 06:59
Intake Total 588 / 588 696 / 696
Balance 588 / 588 696 / 696
--- NOTE | 2025-06-08 09:36 | CON.NEURO ---
Addendum entered and electronically signed by Kang Carlos MD 06/08/25 17:11:
Studies reviewed.
I have personally examined the patient. I reviewed and agree with the BANANA GRADER's Note.
My addenda:
Awake, alert, interactive. No acute distress.
Speech intact.
Follows 2-step requests w/o difficulty. No tremor.
Extra-ocular movements grossly intact.
Facial movements full and symmetric. Hearing intact to normal conversational volume.
Normal UE movements bilaterally.
BLE weakness with trace movements
Neck: full ROM.
Chest: no dyspnea
Heart: no JVD
Ext: (-) Clubbing, (-) Cyanosis, (-) Edema
IMPRESSIONS/RECOMMENDATIONS:
Abrupt onset of bilateral lower extremity weakness most likely due to continued and ongoing osteomyelitis and discitis with rectal tone decrease
Check MRI of brain and thoracic spine to discover if there are new changes
Start oxcarbazepine 150 mg twice a day for bilateral lower extremity discomfort
Continue current antiplatelet and anticoagulant medications in addition to Ezetimibe
consider EMG
D/W patient
Will continue to follow pending results.
Original Note:
Documented by User: Sandra Tripathi NP 06/08/25 15:02
Neuro Assessment/Plan
Assessment
69 year old male with an extensive medical history initially presenting to [facility] with occluded PICC with clot on 05/30/2025, now concern for bilateral lower extremity weakness.
Head CT 06/07/2025: No acute intracranial abnormality.
Lumbar Spine MRI 06/02/2025: Progressive changes at L1-2 consistent with progressive discitis and osteomyelitis associated inferior L1 and superior L2 compression deformities have developed, as well has progressive instability with interval
development of 10 mm retrolisthesis of L1 relative to L2. Secondary progressive advanced central canal stenosis at L1-2 with bilateral lateral recess stenosis, despite evidence of previous laminectomy, and advanced bilateral foraminal stenosis. No
definitive epidural abscess. Right paraspinal abscess measuring 1.8 cm..
Plan
Impressions:
I. abrupt onset of bilateral lower extremity weakness
II. spinal stenosis s/p lumbar laminectomy, L1/L2 osteomyelitis and diskitis
-MRI brain and thoracic spine as planned
-may consider EMG/NCS if imaging unrevealing
-start oxcarbazepine 150 mg BID for pain control
-continue neurochecks per unit guidelines
-continue eliquis, clopidogrel and ezetimibe for secondary stroke prevention
-DVT prophylaxsis
Consultation
Order
Date of Consultation: 06/08/25
Requesting Provider: hospitalist
Reason for Consult: lower extremity weakness
Subjective/Objective
Subjective Data
Date of Service: June 08, 2025
Adapted from neurology note by Dr. Carlos on 04/29/2018:
'Gait Dysfunction:�
������ Began (prior to initial evaluation in this office): seen by this service in 01/2017 for encephalopathy which was likely due to medication overexposure
�������now concerned about heaviness in legs and L hip down back into both legs (worse L > R) falling, stumbling, leaning over leading to falling
�������Followed by: Vascular surgery re-evaluation for this problem
�������in need for stent in R leg then referred here by vascular surgery
�������Previous testing: MRI of lumbar spine
�������Previous evaluation: Vascular surgery, Pain management, PCP
�������Prior medication(s): none for this issue
�������Side-effects with medications: N/A
�������Previous treatment(s): PT
�������Frequency: Per week:once a week for near falling
�������Duration: chronic
�������Intensity: significant
�������Etiology: presumed due to vascular insuffiency, peripheral neuropathy
�������Location: BLE
�������Trigger(s): unclear to patient
�������Quality: heaviness in LEs
�������Associated symptom(s): falling, pain in legs
�������Improving factors: patient unaware of any
�������Worsening factors: PT
�������Unchanged by: patient unaware of any
�������Severity: significant.
Sleep apnea:�
������ The patient presents for follow-up of sleep apnea�previously dx
��������then weight loss
��������since last visit: underwent repeat sleep study
������ Response to therapy�stopped CPAP after weight loss.�'
69yo M with PMHx ESRD on HD, hypotension, PAD s/p angioplasty, CAD s/p CABG and PCI, Afib on eliquis, DM, Hx of CVA, depression/anxiety, ADHD, myeloprolyferative d/o, Hx of substance abuse, gout, chronic ambulatory dysfunction, spinal stenosis s/p
lumbar laminectomy, L1/L2 osteomyelitis and diskitis on Abx 12/27 E.faecalis bacteremia initially planned until 06/16/25 came with occluded PICC with clot, had PICC replaced on 05/31/25, MRI back showed progressive changes, so ID extended antibiotics
until 06/26/25. Neurosurgery recommended LSO brace, pending delivery. Was seen by podiatry for R heal ulcer and had Aortogram, Right lower extremity angiogram , CONDUCTOR/BRAKEMAN and stent of popliteal, CONDUCTOR/BRAKEMAN and shockwave to tibioperoneal trunk and posterior tibial
on 06/01/25. Last night around midnight, the patient was unable to move his lower extremities which prompted a neurology evaluation. On exam, he has decreased sensation to his lower extremities right more than left distally with 1 beat of clonus on
right. He has questionable clonus on left. Profound weakness to bilateral lower extremities with decreased rectal tone. On 06/06/2025 had increased somnolence which promoted a head CT from which showed no acute intracranial abnormality. Today he is
awake, alert and following commands. He is awaiting a brain and thoracic MRI.
Objective Data
Vital Signs
Temp Pulse Resp BP Pulse Ox
98.3 F 84 10 112/59 93
06/08/25 07:55 06/08/25 04:00 06/08/25 04:00 06/08/25 04:00 06/08/25 04:00
Lab Results
06/08/25 05:39
06/08/25 05:39
Sodium 138 mmol/L (135-145) 06/08/25 05:39
Potassium 3.6 mmol/L (3.5-5.1) D 06/08/25 05:39
BUN 34 mg/dl (9-20) H 06/08/25 05:39
Glucose 92 mg/dl (70-99) 06/08/25 05:39
Calcium 8.6 mg/dl (8.4-10.2) 06/08/25 05:39
Patient Allergies
Iodinated Contrast Media Allergy (Verified 05/28/25 01:09)
Nausea / Vomiting, 'panic attack'
latex Allergy (Verified 05/28/25 01:09)
Itching
morphine Allergy (Verified 05/28/25 01:09)
Itching
Physical Exam
-
General: Older than Stated Age
HEENT: Normocephalic, Atraumatic and Anicteric
Neck: Full Range of Motion
Respiratory: No Dyspnea
Cardiac: No JVD
GI: Non-tender and Non-distended
Skin: Other (right heel wrapped)
Extremities: No Clubbing, No Cyanosis, No Edema and Other (contractures 4th and 5th digits bilaterally, right heel wrapped)
Psych: Anxious
Extended Neurological Exam
Mood & Affect: Anxious
Attention Span & Concentration: Awake, Alert, Interactive and Severe Difficulty with 2 Step Request
Memory: Vague and Incomplete Historian
Tremor: Hand Tremor Absent and Head Tremor Absent
Involuntary Movement: None
Speech: Quality Unremarkable, Quantity Unremarkable and Rate of Production Unremarkable
Cranial Nerve II: Left Eye: Visual Rolle Grossly Intact
Cranial Nerve II: Right Eye: Visual Rolle Grossly Intact
Cranial Nerves III, IV, : Extraocular Movement: Extraocular Movement Full in all Directions
Cranial Nerve VII: Facial Symmetry: Normal Facial Symmetry
Cranial Nerves IX, X: Palate Movement: Palate Elevation Symmetric
Cranial Nerve XI: Shoulder Shrug: Unremarkable
Cranial Nerve XII: Tongue Protusion: Midline
Muscle Strength, Overall: Absent (lower extremities flaccid) and Full in Upper Extremities
Deep Tendon Reflexes: Clonus (1 beat to RLE ankle, questionable on LLE, no fasciculations) and Absent
Cold Sensation: Reduced (RLE distally)
Touch Sensation: Other (reduced RLE distally)
Data Reviewed
-
CT Head: Report Reviewed and Image Reviewed
MRI Head: Ordered
Labs: Report Reviewed
Reviewed with: Physician, Nurse and Patient
Old Records: Summarized
Medications
-
Active Medications
Generic Name Dose Route Start Last Admin
Trade Name Freq PRN Reason Stop Dose Admin
Acetaminophen 650 mg 05/30/25 11:52 06/07/25 22:10
Acetaminophen 325 Mg Tablet PO 06/27/25 11:51 650 mg
Q4HPRN PRN Administration
mild pain/fever >100
Albuterol 2 puff 05/30/25 11:52
Albuterol Hfa [90 Mcg/Dose] Inhaler INH
R Q4HPRN PRN
sob
Protocol
Amlodipine Besylate 5 mg 05/30/25 20:00 06/08/25 09:02
Amlodipine 5 Mg Tablet PO 06/27/25 19:59 5 mg
BID RYLEE Administration
Apixaban 5 mg 05/30/25 20:00 06/08/25 09:02
Apixaban (Eliquis) 5 Mg Tablet PO 06/27/25 19:59 5 mg
BID RYLEE Administration
Ascorbic Acid 500 mg 05/31/25 08:00 06/08/25 09:02
Ascorbic Acid 500 Mg Tablet PO 06/28/25 07:59 500 mg
DAILY RYLEE Administration
Atorvastatin Calcium 80 mg 05/30/25 22:00 06/07/25 22:10
Atorvastatin (Lipitor) 80 Mg Tablet PO 06/27/25 21:59 80 mg
HS RYLEE Administration
Bisacodyl 10 mg 05/30/25 11:52 06/05/25 11:46
Bisacodyl 10 Mg Rectal Suppository RECTAL 06/27/25 11:51 10 mg
DAILY PRN Administration
constipation
Ceftriaxone Sodium 2,000 mg 05/30/25 20:00 06/08/25 09:01
Ceftriaxone 2,000 Mg/20 Ml Vial IV 06/16/25 20:01 2,000 mg
Q12H RYLEE Administration
Clopidogrel Bisulfate 75 mg 05/31/25 08:00 06/08/25 09:01
Clopidogrel 75 Mg Tablet PO 06/28/25 07:59 75 mg
DAILY RYLEE Administration
Cyclobenzaprine HCl 5 mg 05/31/25 12:00 06/07/25 05:23
Cyclobenzaprine 10 Mg Tablet PO 06/28/25 11:59 5 mg
On Hold: 06/07/25 09:16 Q6H RYLEE Administration
Dextrose 12.5 grams 05/30/25 11:52
Dextrose 50% (0.5 Grams/Ml) 50 Ml Syringe IV 06/27/25 11:51
[id number] PRN
hypoglycemia
Protocol
Ezetimibe 10 mg 05/31/25 08:00 06/08/25 09:01
Ezetimibe (Zetia) 10 Mg Tablet PO 06/28/25 07:59 10 mg
DAILY RYLEE Administration
Epoetin Servando-epbx 6,000 units 06/09/25 08:00
Epoetin Servando-Epbx (Retacrit) 3,000 Units/Ml Vial IV 06/09/25 08:01
HD-ONCE ONE
Famotidine 10 mg 05/31/25 18:00 06/07/25 17:29
Famotidine 20 Mg Tablet PO 06/28/25 17:59 Not Given
QPM RYLEE
Glucagon 1 mg 05/30/25 11:52
Glucagon 1 Mg Vial IM 06/27/25 11:51
PRN PRN
hypoglycemia
Protocol
Hydralazine HCl 5 mg 06/01/25 15:07 06/07/25 09:13
Hydralazine 20 Mg/Ml Vial IV 06/29/25 15:06 5 mg
Q6HPRN PRN Administration
SBP over 160 mm Hg
Ampicillin Sodium 2,000 mg/ 108 mls @ 108 mls/hr 05/30/25 22:00 06/07/25 23:37
Sodium Chloride IV 06/16/25 22:59 108 mls
Q12@1000,2200 RYLEE Administration
Insulin Aspart 0 units 05/30/25 11:52 06/08/25 08:40
Insulin Aspart Low Resistance 300 Units/3 Ml Pen.Injctr SC 06/27/25 11:51 Not Given
AC RYLEE
Protocol
Magnesium Hydroxide 30 ml 05/30/25 11:52 06/04/25 19:37
Milk Of Magnesia 30 Ml Cup PO 06/27/25 11:51 30 ml
DAILY PRN Administration
constipation
Mannitol 12.5 grams 06/09/25 08:00
Mannitol 25% (12.5 Grams/50 Ml) Vial IV 06/09/25 23:59
HD-Q1HPRN PRN
SBP < 90 mmHg
Methylphenidate HCl 30 mg 05/31/25 08:00 06/07/25 09:35
Methylphenidate 10 Mg Tablet PO 06/14/25 07:59 Not Given
On Hold: 06/07/25 09:17 DAILY RYLEE
Metoprolol Succinate 25 mg 05/31/25 08:00 06/08/25 09:01
Metoprolol 25 Mg Extended Release Tablet PO 06/28/25 07:59 25 mg
DAILY RYLEE Administration
Midodrine 5 mg 05/30/25 11:52
Midodrine 5 Mg Tablet PO 06/27/25 11:51
Q4HPRN PRN
SBP<100
Mupirocin 1 applic 05/31/25 08:00 06/08/25 09:02
Mupirocin 2% (Ointment) 22 Gram Tube TOPICAL 1 applic
DAILY RYLEE Administration
Semaglutide [Ozempic 0.25 mg 06/06/25 15:00 06/06/25 16:18
] 0.25 Mg SC 07/04/25 14:59 0.25 mg
Sybcutaneously On GRIMM RYLEE Administration
Saturday
Patch Removal 3 patch 06/08/25 12:00
Remove Lidocaine Patch REMOVE 06/08/25 12:01
ONCE ONE
Polyethylene Glycol 17 grams 05/31/25 08:00 06/08/25 09:00
Polyethylene Glycol Powder 17 Grams Packet PO 06/28/25 07:59 17 grams
DAILY RYLEE Administration
Senna/Docusate Sodium 1 tablet 06/06/25 11:00 06/08/25 09:01
Docusate W/Senna (Cassia-Colace) Tablet PO 07/04/25 10:59 1 tablet
BID RYLEE Administration
Sertraline HCl 100 mg 05/30/25 20:00 06/07/25 09:36
Sertraline 100 Mg Tablet PO 06/27/25 19:59 Not Given
On Hold: 06/07/25 09:17 BID RYLEE
Sodium Biphosphate/Sodium Phosphate 135 ml 05/31/25 08:00 06/06/25 08:53
Fleet Phosphate Enema (Adult) 135 Ml Bottle RECTAL 06/28/25 07:59 135 ml
DAILY PRN Administration
constipation if supp ineffecti
Sodium Chloride 0 flush 05/30/25 12:00
Sodium Chloride 0.9% (Flush) Syringe IV 06/27/25 11:59
PER PROTOCOL RYLEE
Sodium Chloride 10 ml 06/09/25 08:00
Sodium Chloride (4 Meq/Ml) 30 Ml Vial *For Hemodialysis* IV 06/09/25 23:59
HD-Q1HPRN PRN
cramps
Sterile Water 20 ml 05/30/25 20:00 06/08/25 09:01
Sterile Water For Injection 20 Ml Vial IV 06/16/25 20:01 20 ml
Q12 RYLEE Administration
Vitamin B Complex/Vit C/Folic Acid 1 capsule 05/31/25 08:00 06/07/25 09:35
Renal Cap (Nephrocap) Capsule PO 06/28/25 07:59 Not Given
MoWeFr@0800 RYLEE
Home Medications
�Medication �Instructions �Recorded
melatonin 5 mg tablet 5 mg PO HSPRN PRN sleep 04/06/19
atorvastatin 80 mg tablet 80 mg PO HS High cholesterol 01/25/21
clopidogrel 75 mg tablet (Plavix) 75 mg PO DAILY Blood Clot 02/19/24
Prevention/Tx
coQ10 (ubiquinol) 200 mg capsule 200 mg PO DAILY Supplement 02/19/24
semaglutide 0.25 mg or 0.5 mg (2 0.25 mg SC GRIMM Diabetes 02/19/24
mg/3 mL) subcutaneous pen injector
(Ozempic)
sertraline 100 mg tablet 100 mg PO BID depression/anxiety 02/19/24
vitamin B complex-vitamin C-folic 1 tab PO MOWEFR Supplement 02/19/24
acid 0.8 mg tablet (Nephro-Michelle)
apixaban 5 mg tablet (Eliquis) 5 mg PO BID #60 tabs 02/28/24
acetaminophen 325 mg tablet 650 mg PO Q4HPRN PRN mild 05/25/24
pain/fever >100
albuterol sulfate 90 mcg/actuation 2 puff inhalation R Q4HPRN PRN sob 05/25/24
aerosol inhaler
methylphenidate HCl 10 mg tablet 30 mg PO DAILY ADHD 07/07/24
ascorbic acid (vitamin C) 500 mg 500 mg PO DAILY Supplement 11/03/24
tablet (Vitamin C)
ezetimibe 10 mg tablet (Zetia) 10 mg PO DAILY High Cholesterol #0 11/04/24
tabs
aripiprazole 2 mg tablet (Abilify) 2 mg PO DAILY Mental Health/Anxiety 03/15/25
Held on 05/20/25.
Instructions: Resume on
06/17/25. Hold till you
follow up with your pcp given
history of TME likely
secondary to polypharmacy at
previous admission
loperamide 2 mg tablet 2 mg PO TIDPRN PRN diarrhea 03/15/25
calcium acetate 667 mg PO TIDWMEAL Kidney Disease 04/14/25
midodrine 5 mg tablet 5 mg PO Q4HPRN PRN SBP<100 #0 tabs 04/19/25
polyethylene glycol 3350 17 gram 17 g PO DAILYPRN PRN constipation 04/19/25
oral powder packet #0 ea
Enema Disposable 1 enema SD DAILY Constipation 05/03/25
bisacodyl 10 mg rectal suppository 10 mg SD DAILY PRN constipation 05/03/25
(Dulcolax (bisacodyl))
docusate sodium 100 mg capsule 100 mg PO BID Constipation 05/03/25
(Colace)
famotidine 10 mg tablet 10 mg PO DAILY Gastrointestinal 05/03/25
Issue
lorazepam 1 mg tablet 1 mg PO DAILY anxiety 05/03/25
magnesium hydroxide 400 mg/5 mL 400 mg PO DAILY PRN constipation 05/03/25
oral suspension (Milk of Magnesia)
mupirocin 2 % topical ointment 1 applic topical DAILY Skin Issues 05/03/25
sennosides 8.6 mg tablet (senna) 17.2 mg PO HS Constipation 05/03/25
amlodipine 5 mg tablet 5 mg PO BID #30 tabs 05/19/25
hydromorphone 2 mg tablet 2 mg PO Q8H PRN Moderate-severe 05/20/25
breakthrough pain 1 week #24 tabs
ampicillin sodium 2 gram 2 g IV Q12H Infection 05/30/25
intravenous solution
ceftazidime 2 gram intravenous 2 g IV Q12H Infection 05/30/25
solution
cyclobenzaprine 10 mg tablet 10 mg PO [id number] PRN spasm 05/30/25
metoprolol succinate 25 mg 25 mg PO DAILY Arrhythmia 05/30/25
tablet,extended release 24 hr
Past History
Past History
ED Past Medical History: Arrthythmia (PAF), CAD, Cancer (CML), COPD, CVA, HTN, Hypercholesterolemia, NIDDM, [place], Renal failure (on dialysis), Other (Peripheral artery disease, left femoropopliteal bypass), Other (subdural hematoma) and Other (R foot
ulcer; FINESSE; obesity)
ED Past Surgical History: Cardiac (left fempop bypass) and Other (L femoral endarterectomy, popliteal angioplasty, dialysis graft left upper arm)
Family/Social History
Tobacco: Smoker
Alcohol: None
Drug: Marijuana
Personal:
Living: with family
Employment: Disabled
Family History: Diabetes and Other (reviewed and non-contributory)

Documented by User: Kang Carlos MD 06/08/25 17:05
Past History
Past History
ED Past Medical History: Arrthythmia (PAF), CAD, Cancer (CML), COPD, CVA, HTN, Hypercholesterolemia, NIDDM, [place], Renal failure (on dialysis), Other (Peripheral artery disease, left femoropopliteal bypass), Other (subdural hematoma) and Other (R foot
ulcer; FINESSE; obesity)
ED Past Surgical History: Cardiac (left fempop bypass) and Other (L femoral endarterectomy, popliteal angioplasty, dialysis graft left upper arm)
Social History
Tobacco: Smoker
Alcohol: None
Drug: Marijuana
Personal:
Living: with family
Employment: Disabled
Family History
Family History: Diabetes and Other (reviewed and non-contributory)
Medications
-
Medications:
Generic Name Dose Route Start Last Admin
Trade Name Freq PRN Reason Stop Dose Admin
Acetaminophen 650 mg 05/30/25 11:52 06/07/25 22:10
Acetaminophen 325 Mg Tablet PO 06/27/25 11:51 650 mg
Q4HPRN PRN Administration
mild pain/fever >100
Albuterol 2 puff 05/30/25 11:52
Albuterol Hfa [90 Mcg/Dose] Inhaler INH
R Q4HPRN PRN
sob
Protocol
Amlodipine Besylate 5 mg 05/30/25 20:00 06/08/25 09:02
Amlodipine 5 Mg Tablet PO 06/27/25 19:59 5 mg
BID RYLEE Administration
Apixaban 5 mg 05/30/25 20:00 06/08/25 09:02
Apixaban (Eliquis) 5 Mg Tablet PO 06/27/25 19:59 5 mg
BID RYLEE Administration
Ascorbic Acid 500 mg 05/31/25 08:00 06/08/25 09:02
Ascorbic Acid 500 Mg Tablet PO 06/28/25 07:59 500 mg
DAILY RYLEE Administration
Atorvastatin Calcium 80 mg 05/30/25 22:00 06/07/25 22:10
Atorvastatin (Lipitor) 80 Mg Tablet PO 06/27/25 21:59 80 mg
HS RYLEE Administration
Bisacodyl 10 mg 05/30/25 11:52 06/05/25 11:46
Bisacodyl 10 Mg Rectal Suppository RECTAL 06/27/25 11:51 10 mg
DAILY PRN Administration
constipation
Ceftriaxone Sodium 2,000 mg 05/30/25 20:00 06/08/25 09:01
Ceftriaxone 2,000 Mg/20 Ml Vial IV 06/16/25 20:01 2,000 mg
Q12H RYLEE Administration
Clopidogrel Bisulfate 75 mg 05/31/25 08:00 06/08/25 09:01
Clopidogrel 75 Mg Tablet PO 06/28/25 07:59 75 mg
DAILY RYLEE Administration
Cyclobenzaprine HCl 5 mg 05/31/25 12:00 06/07/25 05:23
Cyclobenzaprine 10 Mg Tablet PO 06/28/25 11:59 5 mg
On Hold: 06/07/25 09:16 Q6H RYLEE Administration
Cyclobenzaprine HCl 5 mg 06/08/25 11:17
Cyclobenzaprine 10 Mg Tablet PO 07/06/25 11:16
Q8HPRN PRN
spasm
Dextrose 12.5 grams 05/30/25 11:52
Dextrose 50% (0.5 Grams/Ml) 50 Ml Syringe IV 06/27/25 11:51
[id number] PRN
hypoglycemia
Protocol
Ezetimibe 10 mg 05/31/25 08:00 06/08/25 09:01
Ezetimibe (Zetia) 10 Mg Tablet PO 06/28/25 07:59 10 mg
DAILY RYLEE Administration
Epoetin Servando-epbx 6,000 units 06/09/25 08:00
Epoetin Servando-Epbx (Retacrit) 3,000 Units/Ml Vial IV 06/09/25 08:01
HD-ONCE ONE
Famotidine 10 mg 05/31/25 18:00 06/07/25 17:29
Famotidine 20 Mg Tablet PO 06/28/25 17:59 Not Given
QPM RYLEE
Glucagon 1 mg 05/30/25 11:52
Glucagon 1 Mg Vial IM 06/27/25 11:51
PRN PRN
hypoglycemia
Protocol
Hydralazine HCl 5 mg 06/01/25 15:07 06/07/25 09:13
Hydralazine 20 Mg/Ml Vial IV 06/29/25 15:06 5 mg
Q6HPRN PRN Administration
SBP over 160 mm Hg
Ampicillin Sodium 2,000 mg/ 108 mls @ 108 mls/hr 05/30/25 22:00 06/08/25 11:40
Sodium Chloride IV 06/16/25 22:59 108 mls
Q12@1000,2200 RYLEE Administration
Insulin Aspart 0 units 05/30/25 11:52 06/08/25 12:35
Insulin Aspart Low Resistance 300 Units/3 Ml Pen.Injctr SC 06/27/25 11:51 Not Given
AC RYLEE
Protocol
Lorazepam 1 mg 06/08/25 09:38 06/08/25 14:58
Lorazepam 1 Mg Tablet PO 06/08/25 19:00 1 mg
ONCE PRN PRN Administration
PRIOR TO MRI
Magnesium Hydroxide 30 ml 05/30/25 11:52 06/04/25 19:37
Milk Of Magnesia 30 Ml Cup PO 06/27/25 11:51 30 ml
DAILY PRN Administration
constipation
Mannitol 12.5 grams 06/09/25 08:00
Mannitol 25% (12.5 Grams/50 Ml) Vial IV 06/09/25 23:59
HD-Q1HPRN PRN
SBP < 90 mmHg
Methylphenidate HCl 30 mg 06/08/25 11:00 06/08/25 11:40
Methylphenidate 10 Mg Tablet PO 06/22/25 10:59 30 mg
DAILY RYLEE Administration
Metoprolol Succinate 25 mg 05/31/25 08:00 06/08/25 09:01
Metoprolol 25 Mg Extended Release Tablet PO 06/28/25 07:59 25 mg
DAILY RYLEE Administration
Midodrine 5 mg 05/30/25 11:52
Midodrine 5 Mg Tablet PO 06/27/25 11:51
Q4HPRN PRN
SBP<100
Mupirocin 1 applic 05/31/25 08:00 06/08/25 09:02
Mupirocin 2% (Ointment) 22 Gram Tube TOPICAL 1 applic
DAILY RYLEE Administration
Semaglutide [Ozempic 0.25 mg 06/06/25 15:00 07/13/25 16:18
] 0.25 Mg SC 07/04/25 14:59 0.25 mg
Sybcutaneously On GRIMM RYLEE Administration
Saturday
Oxcarbazepine 150 mg 06/08/25 12:00 06/08/25 13:23
Oxcarbazepine 150 Mg Tablet PO 07/06/25 11:59 150 mg
BID RYLEE Administration
Polyethylene Glycol 17 grams 05/31/25 08:00 06/08/25 09:00
Polyethylene Glycol Powder 17 Grams Packet PO 06/28/25 07:59 17 grams
DAILY RYLEE Administration
Senna/Docusate Sodium 1 tablet 06/06/25 11:00 06/08/25 09:01
Docusate W/Senna (Cassia-Colace) Tablet PO 07/04/25 10:59 1 tablet
BID RYLEE Administration
Sertraline HCl 100 mg 06/08/25 11:00 06/08/25 11:39
Sertraline 100 Mg Tablet PO 07/06/25 10:59 100 mg
BID RYLEE Administration
Sodium Biphosphate/Sodium Phosphate 135 ml 05/31/25 08:00 06/06/25 08:53
Fleet Phosphate Enema (Adult) 135 Ml Bottle RECTAL 06/28/25 07:59 135 ml
DAILY PRN Administration
constipation if supp ineffecti
Sodium Chloride 0 flush 05/30/25 12:00
Sodium Chloride 0.9% (Flush) Syringe IV 06/27/25 11:59
PER PROTOCOL RYLEE
Sodium Chloride 10 ml 06/09/25 08:00
Sodium Chloride (4 Meq/Ml) 30 Ml Vial *For Hemodialysis* IV 06/09/25 23:59
HD-Q1HPRN PRN
cramps
Sterile Water 20 ml 05/30/25 20:00 06/08/25 09:01
Sterile Water For Injection 20 Ml Vial IV 06/16/25 20:01 20 ml
Q12 RYLEE Administration
Vitamin B Complex/Vit C/Folic Acid 1 capsule 05/31/25 08:00 06/07/25 09:35
Renal Cap (Nephrocap) Capsule PO 06/28/25 07:59 Not Given
Brendon@0800 [facility]
--- NOTE | 2025-06-08 09:51 | PTCARENOTE ---
Upon rounds with MD, pt stated he could not move his legs. Physicians at bedside. Neuro checks added to worklist. Per Neurology, no NIHSS needed.
[2025-06-08] MEDS: ZOLOFT 100 MG PO ×2 (11:39→21:04)
[2025-06-08] MEDS: RITALIN 30 MG PO (11:40)
[2025-06-08] MEDS: AMPICILLIN 108 MG IV (11:40)
[2025-06-08 12:48] LABS: Glucose - Point of Care 127 mg/dl (70-99)
[2025-06-08] MEDS: REMOVE LIDOCAINE PATCH 3 PATCH REMOVE (13:23)
[2025-06-08] MEDS: TRILEPTAL 150 MG PO ×2 (13:23→21:04)
--- NOTE | 2025-06-08 14:24 | W.PN.ID1 ---
Date of Service
Date of Service: June 08, 2025
Today's Communication
Continue antibiotics.
Assessment / Plan
Leukocytosis
Low back pain 2* L1-2 discitis / vertebral osteomyelitis
Bacteremia with E. faecalis
- cleared 05/05/25
Constipation / obstipation
Elevated ESR
Elevated CRP
pA-fib
CML
COPD
Hx CVA
HTN
HLD
DM type II
CAD; Hx NM
ESRD�HD
Obesity
Recommendations:
White count remains elevated, but appears stable. ?reactive
Blood cultures (05/03/25) with E. faecalis. Repeat blood cultures (05/05, 05/07) finalized and without growth.
MRI findings on 05/04/25 compatible with discitis and osteomyelitis at L1-2. Possible paraspinal inflammation also noted.
Repeat MRI findings on 06/02/25 showed progressive changes of disc and vertebral body, but suspect these changes have lagged clinical response. Current CRP is 12, down from peak of 152. ESR has likewise shown improvement.
Prior TTE nondiagnostic.
Patient previously on a course of ampicillin and ceftriaxone through 06/16/25.
- Patient was placed on ceftazidime upon admission to the [facility] (rather than ceftriaxone), and had remained on it for 10 days.
- At this time, the patient has resumed ceftriaxone.
Course of ampicillin and ceftriaxone extended to through 06/26/2025.
Follow white count and temperature curve. Pain control per primary service.
Patient for stat MRI of thoracic spine and workup of lower extremity flaccidity.
���������������������������������������������������������
Chief Complaint
-: Other (Discitis/osteomyelitis. Hx Enterococcus faecalis bacteremia)
Subjective / Review of Systems
Patient seen and examined. Patient now reporting no ability to move legs.
Review of Systems: No Fever and No Chills
Vital Signs / Physical Exam
Vital Signs
Vital Signs
Temp Pulse Resp BP Pulse Ox
99.0 F 84 10 112/59 95
06/08/25 11:39 06/08/25 04:00 06/08/25 04:00 06/08/25 04:00 06/08/25 09:16
Physical Exam
Constitutional: No Acute Distress, Chronically Ill and Non-toxic
Eyes: No Conjunctival Hemorrhage and Sclera Anicteric
Cardiovascular: Regular Rate and S1/S2; Negative S3/S4
Pulmonary: Clear and Non Labored
Gastrointestinal: Soft, Non Tender and Non Distended
Extremities: Negative Edema or Erythema
Wound: Other (Right heel with unstageable pressure wound, dressed. No periwound erythema.)
Neurological: Awake, Alert and Other (No motor strength in lower extremities.)
Psychological: Calm
Objective Data
Lab Data
Lab Results
06/08/25 05:39
06/08/25 05:39
ESR 57 mm/hour (0-20) H 06/06/25 05:57
Estimated Creat Clear 15 ml/min 06/08/25 05:39
Total Bilirubin 1.1 mg/dl (0.2-1.3) 06/07/25 05:43
AST 17 U/L (17-59) 06/07/25 05:43
ALT 14 U/L (0-50) 06/07/25 05:43
Alkaline Phosphatase 94 U/L (38-126) 06/07/25 05:43
C-Reactive Protein 12.30 mg/L (0.0-10.00) H 06/06/25 05:57
Most recent labs reviewed.
Micro Results:
05/31/25 09:06 Blood Culture - Final
Blood/Venous No Growth - Final Report
Imaging:
06/02/2025 MRI lumbar spine w & w/o : Progressive changes at L1-2 consistent with progressive discitis and osteomyelitis associated inferior L1 and superior L2 compression deformities have developed, as well has progressive instability with interval
development of 10 mm retrolisthesis of L1 relative to L2. Secondary progressive advanced central canal stenosis at L1-2 with bilateral lateral recess stenosis, despite evidence of previous laminectomy, and advanced bilateral foraminal stenosis. No
definitive epidural abscess. Right paraspinal abscess measuring 1.8 cm.
05/30/2025 X-ray right foot: No radiographic evidence of osteomyelitis.
05/04/2025 MRI lumbar spine without contrast: Findings compatible with discitis and osteomyelitis at L1-2. There is evidence for paraspinal inflammation with probable paraspinal abscesses. No evidence for epidural extension or inflammatory process,
with no evidence for epidural phlegmon or abscess.
05/03/2025 CT abdomen/pelvis without contrast: Moderate colonic stool burden without evidence of obstruction. Prior L1-L5 posterior spinal fusion noted. There are endplate irregularities with mild surrounding paraspinal soft tissue
thickening/stranding at the L1-L2 intervertebral space which is concerning for discitis or osteomyelitis. A dedicated MRI with and without contrast may be considered as clinically indicated.
[2025-06-08] MEDS: ATIVAN 1 MG PO (14:58)
--- NOTE | 2025-06-08 16:54 | PTCARENOTE ---
Pt to and from MRI via stretcher.
--- NOTE | 2025-06-08 17:42 | W.PN.UPDATE ---
Update Note
Progress Note Update
notified by hospitalist service at 530 pm of patients neurologic change that occurred last night. Unknown to me what time, and was not reported to our service,. Patient reported to have LE paraparesis and LE sensory abnormality with decreased rectal
tone
MRI thoracic obtained by primary service which does not show any thoracic collection to explain weakness
The known L1/2 OM/Discitis is seen but images are not fully through this level to adequately assess it
In my opinion given his neurologic deficit and difficultly obtaining timely films he needs to transfer to a higher level of care for expectant surgical intervention
--- NOTE | 2025-06-08 17:54 | W.PN.UPDATE ---
Update Note
Progress Note Update
Spoke to Neuro and also Neuro surgery re the MRI
MRI T spine does not show the Lumbar area well. But since pt has new leg weakness , he needs to be transferred for higher level of care.
Spoke to Dr. Ryan who has kindly accepted pt to his service at [facility]
Air transfer.
Forms filled
Transfer form Signed by .
D/W and RN
Copy images on a CD
[2025-06-08 18:32] LABS: Glucose - Point of Care 157 mg/dl (70-99)
--- NOTE | 2025-06-08 18:35 | PTCARENOTE ---
Pt to be transferred to [facility]. Transfer center updated.
[2025-06-08] MEDS: PEPCID PO (18:41)
--- NOTE | 2025-06-08 21:03 | PTCARENOTE ---
Pt being flown to [facility] by [facility] flight. Report called to CHAPIS Krishna. Pt vitals stable at this time.
[2025-06-08] MEDS: LIPITOR 80 MG PO (21:04)
== END 2025-06-08 22:21 | disposition short-term general hospital (02) | DRG 278 ==
LOC: IMU 16:00
PROVIDERS: Internal Medicine; Nurse Practitioner Family; Radiology Vascular & Interventional Radiology; ADMITTING PHYSICIAN Hospitalist; CONSULT PHYSICIAN Internal Medicine Infectious Disease; CONSULT PHYSICIAN Neurological Surgery; CONSULT PHYSICIAN Psychiatry & Neurology Neurology; CONSULT PHYSICIAN Specialist; CONSULT PHYSICIAN Student in an Organized Health Care Education/Training Program; EMERGENCY PHYSICIAN Emergency Medicine; FAMILY PHYSICIAN Family Medicine; OTHER PHYSICIAN Surgery
PROC: 02H633Z Insertion of Infusion Device into Right Atrium, Percutaneous Approach (ICD-10-PCS; 2025-05-31)
PROC: 0JH63XZ Insertion of Tunneled Vascular Access Device into Chest Subcutaneous Tissue and Fascia, Percutaneous Approach (ICD-10-PCS; 2025-05-31)
PROC: 5A1D70Z Performance of Urinary Filtration, Intermittent, Less than 6 Hours Per Day (ICD-10-PCS; 2025-05-31)
PROC: 047M34Z Dilation of Right Popliteal Artery with Drug-eluting Intraluminal Device, Percutaneous Approach (ICD-10-PCS; 2025-06-01)
PROC: B41F1ZZ Fluoroscopy of Right Lower Extremity Arteries using Low Osmolar Contrast (ICD-10-PCS; 2025-06-01)
PROC: 04FM3ZZ Fragmentation of Right Popliteal Artery, Percutaneous Approach (ICD-10-PCS; 2025-06-01)
PROC: 04FR3ZZ Fragmentation of Right Posterior Tibial Artery, Percutaneous Approach (ICD-10-PCS; 2025-06-01)
DX: T82.868A Thrombosis due to vascular prosthetic devices, implants and grafts, initial encounter (principal); G92.8 Other toxic encephalopathy; N18.6 End stage renal disease; M46.26 Osteomyelitis of vertebra, lumbar region; I48.92 Unspecified atrial flutter; C92.10 Chronic myeloid leukemia, BCR/ABL-positive, not having achieved remission; N25.81 Secondary hyperparathyroidism of renal origin; G82.20 Paraplegia, unspecified; I82.A12 Acute embolism and thrombosis of left axillary vein; I12.0 Hypertensive chronic kidney disease with stage 5 chronic kidney disease or end stage renal disease; R78.81 Bacteremia; E11.51 Type 2 diabetes mellitus with diabetic peripheral angiopathy without gangrene; L89.610 Pressure ulcer of right heel, unstageable; I70.234 Atherosclerosis of native arteries of right leg with ulceration of heel and midfoot; Y82.8 Other medical devices associated with adverse incidents; M46.46 Discitis, unspecified, lumbar region; D63.1 Anemia in chronic kidney disease; I48.0 Paroxysmal atrial fibrillation; E11.22 Type 2 diabetes mellitus with diabetic chronic kidney disease; R53.1 Weakness; E11.42 Type 2 diabetes mellitus with diabetic polyneuropathy; E78.00 Pure hypercholesterolemia, unspecified; I95.89 Other hypotension; J44.9 Chronic obstructive pulmonary disease, unspecified; G47.33 Obstructive sleep apnea (adult) (pediatric); F41.9 Anxiety disorder, unspecified; F90.9 Attention-deficit hyperactivity disorder, unspecified type; I25.10 Atherosclerotic heart disease of native coronary artery without angina pectoris; Z99.2 Dependence on renal dialysis; M48.061 Spinal stenosis, lumbar region without neurogenic claudication; M10.9 Gout, unspecified; E66.9 Obesity, unspecified; D50.9 Iron deficiency anemia, unspecified; B95.2 Enterococcus as the cause of diseases classified elsewhere; L89.312 Pressure ulcer of right buttock, stage 2; E83.39 Other disorders of phosphorus metabolism; M62.838 Other muscle spasm; K59.00 Constipation, unspecified; K76.0 Fatty (change of) liver, not elsewhere classified; F32.A Depression, unspecified; I45.10 Unspecified right bundle-branch block; G89.29 Other chronic pain; K21.9 Gastro-esophageal reflux disease without esophagitis; F17.200 Nicotine dependence, unspecified, uncomplicated; E11.69 Type 2 diabetes mellitus with other specified complication; H91.90 Unspecified hearing loss, unspecified ear; Z95.1 Presence of aortocoronary bypass graft; Z79.01 Long term (current) use of anticoagulants; Z86.73 Personal history of transient ischemic attack (TIA), and cerebral infarction without residual deficits; I25.2 Old myocardial infarction; Z95.820 Peripheral vascular angioplasty status with implants and grafts; Z95.5 Presence of coronary angioplasty implant and graft; Z79.02 Long term (current) use of antithrombotics/antiplatelets; Z79.84 Long term (current) use of oral hypoglycemic drugs; Z79.85 Long-term (current) use of injectable non-insulin antidiabetic drugs
CPT/HCPCS: 36558; 36600; 37226; 70450; 71045; 71046; 72146; 72158; 73630; 74018; 76937; 77001; 80048; 80051; 80053; 82805; 82962; 83036; 84132; 85014; 85018; 85025; 85027; 85652; 86140; 87040; 93922; 93925; 93971; 95816; 96374; 96375; 99152; 99285; A9585; C1725; C1751; C1769; C1874; C1887; C1894; C9772; G0257; J2997; P9047; Q5106; Q9967